=== PATIENT | male | born 1940 | race Caucasian/White ===

== ENCOUNTER 2016-06-13 06:14 | Observation (INO) ==
[2016-06-13] MEDS ORDERED: Aspirin 81 MG TAB.CHEW PO ONE (06:30)
--- NOTE | 2016-06-13 06:44 | Emergency Department Note ---
Disposition Clinical Impression: Unstable angina, Chest pain, rule out acute myocardial infarction Disposition: Admitted As Inpatient Condition: Fair Referrals: NO,PCP [Primary Care Provider] - Forms: ED Satisfaction Letter Time of Disposition: 08:28 SOB HPI - General Chief Complaint: ED Shortness of Breath/Dyspnea Stated Complaint: MAYELIN Time Seen by Provider: 06/13/16 06:24 Source: EMS Limitations: no limitations Nursing Notes Reviewed: Yes Vital Signs Reviewed: Yes - History of Present Illness 75-year-old alert and oriented male presents to the emergency department by EMS for evaluation of shortness of breath and left sided chest pain that awoke him from his sleep at approximately 0130 hours this morning. The time, he says that he would have rated his pain a 4 out of 10 on a 10 point scale. The pain was localized primarily to the left chest around the site of his pacemaker, however the pain cannot be reproduced upon palpation to my exam. He states his pain radiated down his left arm. As of now, he states the pain has eased up, rating it a 2 out of 10 on a 10 point scale. He complains of shortness of breath associated with chest pain however denies any cough. He denies any fevers or chills. He denies any bowel pain, nausea, vomiting, diarrhea, or diaphoresis. Of note, the patient was seen here yesterday for a complaint of shortness of breath and recurrent left-sided paresthesias. At this time, he states that there are no left sided paresthesia symptoms present. Pt Subjective Complaint: shortness of breath, chest pain Onset (ago): hour(s) Severity: mild Improves with: nothing Worsens with: nothing Associated symptoms: Reports: denies other symptoms - Related Data Previous Rx's Medication Instructions Recorded Amlodipine [Norvasc] 10 mg PO DAILY #30 tablet 02/21/16 Aspirin Enteric Coated [Aspirin EC] 81 mg PO DAILY #30 tablet. 02/21/16 Atorvastatin [Lipitor] 40 mg PO HS #30 tablet 02/21/16 Furosemide [Lasix] 40 mg PO DAILY #30 tablet 02/21/16 Lisinopril [Zestril] 40 mg PO DAILY #30 tablet 02/21/16 Metoprolol [Lopressor] 25 mg PO BID #60 tablet 02/21/16 Nitroglycerin [Nitrostat] 0.4 mg SL AD PRN #10 tab.subl 12/03/16 Allergies Allergy/AdvReac Type Severity Reaction Status Date / Time Oxycodone [From Percocet] Allergy Hives Verified 06/13/16 06:15 tramadol Allergy Hives Verified 06/13/16 06:15 All systems ED: reviewed and negative except as stated. Constitutional: Denies: fever, chills, weakness, weight change Eyes: Denies: eye pain, eye discharge, vision change ENT ED: Denies: ear pain, throat pain, dental pain, hearing loss, epistaxis, congestion, dysphagia Cardiovascular: Reports: as per HPI, chest pain. Denies: palpitations, dyspnea on exertion, edema, syncope Respiratory: Reports: as per HPI, dyspnea. Denies: cough, wheezes, hemoptysis, stridor Gastrointestinal: Denies: abdominal pain, nausea, vomiting, diarrhea, constipation, hematemesis, melena, hematochezia Genitourinary: Denies: urgency, dysuria, frequency, hematuria Musculoskeletal: Denies: back pain, neck pain, arthralgia, myalgia Integumentary: Denies: rash, abrasion, lesions Neurological: Denies: headache, weakness, numbness, paresthesias, confusion, abnormal gait, vertigo Psychiatric: Denies: anxiety, depression, suicidal thoughts, homicidal thoughts , auditory hallucinations, visual hallucinations Endocrine: Denies: fatigue Hematological/Lymphatic: Denies: easy bleeding, easy bruising Allergic/Immunologic: Denies: facial swelling, urticaria Past Medical History - Past Medical History Attestation: Yes The following information was validated with the patient. Source: patient Medical history: Reports: coronary artery disease, CVA, diabetes, hypertension, myocardial infarction, thyroid disease Surgical history: Reports: cholecystectomy, coronary bypass (CABG), pacemaker/ AICD Psychiatric history: Reports: no psych history - Social History Smoking Status: Former smoker Smokeless Tobacco Status: No Alcohol use: Reports: none Drug use: Reports: none Physical Exam - General Limitations: no limitations General appearance: alert - Head Head exam: atraumatic, normocephalic, normal inspection - Eye Eye exam: Present: normal appearance, PERRL, EOMI. Absent: nystagmus - ENT ENT exam: mucous membranes moist - Neck Neck exam: Present: normal inspection, full ROM, trachea midline - Chest Chest inspection: Present: normal inspection, symmetric chest wall rise - Respiratory Respiratory exam: Present: normal lung sounds bilaterally. Absent: respiratory distress, wheezes, stridor, accessory muscle use, prolonged expiratory phase - Cardiovascular Cardiovascular exam: Present: regular rate, normal rhythm, normal heart sounds - Abdominal Exam Abdominal exam: Present: soft, Non-Tender, normal bowel sounds. Absent: tenderness, distention, guarding, rebound, rigidity - Extremities Exam Extremities exam: Present: normal inspection, full ROM. Absent: tenderness, pedal edema - Neurological Exam Neurological exam: Present: alert, oriented X3 - Psychiatric Psychiatric exam: Present: normal affect, normal mood - Skin Skin exam: Present: warm, dry, intact, normal color. Absent: rash, cyanosis, diaphoresis, erythema, pallor, mottled Course Course Narrative: 0822: I discussed this patient's case, presentation, and laboratory results with Dr. lopez. I also discussed with her that this is the patient's second ER visit in the past 2 days for similar symptoms. She recommends admission to the hospitalist service for further evaluation and chest pain rule out. At this time, I am awaiting a callback from the hospitalist. 0825: I spoke with DARYA Keenan of the hospitalist service. Ree has accepted the patient for admission for further observation and evaluation of his unstable angina/chest pain rule out. - Reevaluation(s) Reevaluation #1: The patient states complete relief of chest pain after the administration of nitroglycerin. Time: 07:41 Vital Signs Temperature 97.7 F 06/13/16 06:16 Pulse Rate 70 06/13/16 06:16 Respiratory Rate 16 06/13/16 06:16 Blood Pressure 167/85 06/13/16 06:16 O2 Sat by Pulse Oximetry 98 06/13/16 06:16 Temperature 97.7 F 06/13/16 06:16 Pulse Rate 66 06/13/16 07:36 Respiratory Rate 16 06/13/16 07:36 Blood Pressure 152/94 06/13/16 07:36 O2 Sat by Pulse Oximetry 98 06/13/16 07:36 Oxygen Delivery Oxygen Delivery Room Air Shortness of Breath/Dyspnea - Medical Records Medical records reviewed: Yes I reviewed the patient's medical records. - Lab Data Lab results reviewed: Yes I reviewed the patient's lab results. Lab results narrative: Laboratory Last Values WBC 7.5 K/mcL (4.3-11.1) 06/13/16 07: RBC 5.07 M/mcL (4.19-5.50) 06/13/16 07:26 Hgb 14.7 g/dL (12.9-16.9) 06/13/16 07: Hct 44.3 % (37.5-50.1) 06/13/16 07: MCV 87.4 fL (83.0-100.0) 06/13/16 07: MCH 29.0 pg (28.0-33.3) 06/13/16 07: MCHC 33.2 g/dL (31.6-35.5) 06/13/16 07: RDW 12.6 % (11.5-14.5) 06/13/16 07: Plt Count 152 K/mcL (140-400) 06/13/16 07: MPV 11.4 fL (9.4-12.4) 06/13/16 07: Immature Gran % 0.1 % (0-4) 06/13/16 07: Seg Neutrophils % 64.7 % 06/13/16 07: Lymphocytes % 22.1 % 06/13/16 07: Monocytes % 8.3 % 06/13/16 07:26 Eosinophils % 3.9 % 06/13/16 07: Basophils % 0.9 % 06/13/16 07: Neutrophils # 4.8 K/mcL (1.6-8.9) 06/13/16 07: Lymphocytes # 1.7 K/mcL (0.6-4.6) 06/13/16 07:26 Monocytes # 0.6 K/mcL (0.0-1.3) 06/13/16 07:26 Eosinophils # 0.3 K/mcL (0.0-0.6) 06/13/16 07: Basophils # 0.1 K/mcL (0.0-0.2) 06/13/16 07:26 PT 15.4 Seconds (9.4-12.1) H 06/13/16 07: INR 1.4 06/13/16 07:26 APTT 34.8 Seconds (26.0-36.0) 06/13/16 07:26 Sodium 139 mEq/L (136-145) 06/13/16 07:26 Potassium 4.3 mEq/L (3.5-4.5) 06/13/16 07:26 Chloride 104 mEq/L (98-109) 06/13/16 07:26 Carbon Dioxide 24 mEq/L (19-29) 06/13/16 07:26 BUN 19 mg/dL (8-26) 06/13/16 07:26 Creatinine 1.12 mg/dL (0.72-1.25) 06/13/16 07:26 Est GFR ( Amer) > 60 (> 60) 06/13/16 07:26 Est GFR (Non-Af Amer) > 60 (> 60) 06/13/16 07:26 BUN/Creatinine Ratio 17 (6-26) 06/13/16 07:26 Glucose 228 mg/dL (70-99) H 06/13/16 07:26 Calculated Osmolality 297 (280-300) 06/13/16 07:26 Calcium 9.8 mg/dL (8.6-10.8) 06/13/16 07:26 Troponin I 0.03 ng/mL (0-0.03) 06/13/16 07:26 Result diagrams: 06/13/16 07:26 06/13/16 07:26 Lab Results 06/13/16 06/13/16 06/13/16 Range/Units 07:26 07:26 07:26 WBC 7.5 (4.3-11.1) K/mcL RBC 5.07 (4.19-5.50) M/mcL Hgb 14.7 (12.9-16.9) g/dL Hct 44.3 (37.5-50.1) % MCV 87.4 (83.0-100.0) fL MCH 29.0 (28.0-33.3) pg MCHC 33.2 (31.6-35.5) g/dL RDW 12.6 (11.5-14.5) % Plt Count 152 (140-400) K/mcL MPV 11.4 (9.4-12.4) fL Immature Gran % 0.1 (0-4) % Seg Neutrophils % 64.7 % Lymphocytes % 22.1 % Monocytes % 8.3 % Eosinophils % 3.9 % Basophils % 0.9 % Neutrophils # 4.8 (1.6-8.9) K/mcL Lymphocytes # 1.7 (0.6-4.6) K/mcL Monocytes # 0.6 (0.0-1.3) K/mcL Eosinophils # 0.3 (0.0-0.6) K/mcL Basophils # 0.1 (0.0-0.2) K/mcL PT 15.4 H (9.4-12.1) Seconds INR 1.4 APTT 34.8 (26.0-36.0) Seconds Sodium 139 (136-145) mEq/L Potassium 4.3 (3.5-4.5) mEq/L Chloride 104 (98-109) mEq/L Carbon Dioxide 24 (19-29) mEq/L BUN 19 (8-26) mg/dL Creatinine 1.12 (0.72-1.25) mg/dL Est GFR ( Amer) > 60 (> 60) Est GFR (Non-Af Amer) > 60 (> 60) BUN/Creatinine Ratio 17 (6-26) Glucose 228 H (70-99) mg/dL Calculated Osmolality 297 (280-300) Calcium 9.8 (8.6-10.8) mg/dL Troponin I (0-0.03) ng/mL 06/13/16 Range/Units 07:26 WBC (4.3-11.1) K/mcL RBC (4.19-5.50) M/mcL Hgb (12.9-16.9) g/dL Hct (37.5-50.1) % MCV (83.0-100.0) fL MCH (28.0-33.3) pg MCHC (31.6-35.5) g/dL RDW (11.5-14.5) % Plt Count (140-400) K/mcL MPV (9.4-12.4) fL Immature Gran % (0-4) % Seg Neutrophils % % Lymphocytes % % Monocytes % % Eosinophils % % Basophils % % Neutrophils # (1.6-8.9) K/mcL Lymphocytes # (0.6-4.6) K/mcL Monocytes # (0.0-1.3) K/mcL Eosinophils # (0.0-0.6) K/mcL Basophils # (0.0-0.2) K/mcL PT (9.4-12.1) Seconds INR APTT (26.0-36.0) Seconds Sodium (136-145) mEq/L Potassium (3.5-4.5) mEq/L Chloride (98-109) mEq/L Carbon Dioxide (19-29) mEq/L BUN (8-26) mg/dL Creatinine (0.72-1.25) mg/dL Est GFR ( Amer) (> 60) Est GFR (Non-Af Amer) (> 60) BUN/Creatinine Ratio (6-26) Glucose (70-99) mg/dL Calculated Osmolality (280-300) Calcium (8.6-10.8) mg/dL Troponin I 0.03 (0-0.03) ng/mL - Radiology Data Radiology results reviewed: Yes I reviewed the patient's radiology results. Chest X-Ray 06/13/16 06:30 IMPRESSION: No acute cardiopulmonary process. D/ / Justina Dominguez MD / Justina Dominguez MD Interpreting Provider: Justina Dominguez MD - EKG Data EKG attestation: Yes I reviewed and interpreted this EKG. EKG results narrative: EKG reviewed by Dr. Metzger as well. EKG shows a ventricular paced rhythm at a rate of 69 bpm. No ectopy noted. Attestation Statement - Attestation Attestation: I examined this patient and my medical decision-making was reviewed with the CLEAN OUT DRILLER/PA/Advanced Practice Nurse/Resident Physician. I agree with the documented findings, disposition and treatment plan as described except to the extent set forth below. Patient emergency department with chest pain. States his left-sided around his pacemaker. Workup at this morning. On exam he is laying in bed in no acute distress. Pain nonpertinent produced on my evaluation. No swelling or ecchymosis to the chest wall. No rash. Plan. Cardiac workup appears unremarkable. Admitted for further cardiac workup.
[2016-06-13] MEDS ORDERED: Nitroglycerin 0.4 MG TAB.SUBL SL PRN (07:14)
[2016-06-13 07:50] LABS: Basophils # 0.1 K/mcL (0.0-0.2); Basophils % 0.9 %; Eosinophils # 0.3 K/mcL (0.0-0.6); Eosinophils % 3.9 %; Hematocrit 44.3 % (37.5-50.1); Hemoglobin 14.7 g/dL (12.9-16.9); Immature Granulocytes % 0.1 % (0-4); Lymphocytes # 1.7 K/mcL (0.6-4.6); Lymphocytes % 22.1 %; Mean Corpuscular HGB Conc 33.2 g/dL (31.6-35.5); Mean Corpuscular Volume 87.4 fL (83.0-100.0); Mean Platelet Volume 11.4 fL (9.4-12.4); Monocytes # 0.6 K/mcL (0.0-1.3); Monocytes % 8.3 %; Neutrophils # 4.8 K/mcL (1.6-8.9); Platelet Count 152 K/mcL (140-400); Red Blood Count 5.07 M/mcL (4.19-5.50); Red Cell Distribution Width 12.6 % (11.5-14.5); Segmented Neutrophils % 64.7 %
[2016-06-13 07:56] LABS: BUN/Creatinine Ratio 17 (6-26); Blood Urea Nitrogen 19 mg/dL (8-26); Calcium 9.8 mg/dL (8.6-10.8); Carbon Dioxide 24 mEq/L (19-29); Chloride 104 mEq/L (98-109); Glucose 228 mg/dL (70-99); Osmolality,Calculated 297 (280-300); Potassium 4.3 mEq/L (3.5-4.5); Sodium 139 mEq/L (136-145); eGFR For African Americans > 60 (> 60); eGFR For Non-African Americans > 60 (> 60)
[2016-06-13 08:02] LABS: INR 1.4; Prothrombin Time 15.4 Seconds (9.4-12.1)
[2016-06-13 08:05] LABS: Activated Partial Thrombo Time 34.8 Seconds (26.0-36.0)
[2016-06-13] MEDS ORDERED: Naloxone 0.4 MG/ML INJ IVP PRN (10:18)
[2016-06-13] MEDS ORDERED: Ondansetron 4 MG/2 ML VIAL IVP PRN (10:18)
--- NOTE | 2016-06-13 12:40 | Internal Med History&Physical ---
Date of Encounter: 06/13/16 Time of Encounter: 10:30 Assessment and Plan (1) Chest pain Current visit: Yes Status: Acute 1 patient has been experiencing persistent chest pain for approximately 2 days. He does have a past history of coronary artery disease as well as GA. He did have a CABG in the . His last stress test was one year ago which was negative for ischemia. His first set of cardiac troponins are negative we will continue to cycle 2 we will continue with aspirin and statin beta fuentes Jasiel 3 continuous cardiac monitoring 4 we will make patient nothing by mouth after midnight 5 consult cardiology 6 cardiac echo Qualifiers: Chest pain type: unspecified Qualified Code(s): R07.9 - Chest pain, unspecified (2) CAD (coronary artery disease) Current visit: No Status: Chronic 1 patient has history of coronary disease and a CABG in the past. We will continue with his beta fuentes and jasiel statin and aspirin Qualifiers: Coronary Disease-Associated Artery/Lesion type: bypass graft [place] vs. transplanted heart: [place] heart Associated angina: without angina Qualified Code(s): I25.810 - Atherosclerosis of coronary artery bypass graft(s) without angina pectoris (3) DM2 (diabetes mellitus, type 2) Current visit: No Status: Chronic 1 patient has history of diabetes type 2. We will continue with Accu-Cheks before meals and at bedtime Scale insulin as needed to maintain postprandial less than 180 Qualifiers: Diabetes mellitus complication status: with circulatory complication Diabetes mellitus complication detail: with other circulatory complications Diabetes mellitus termite exterminator insulin use: without termite exterminator use Qualified Code( s): E11.59 - Type 2 diabetes mellitus with other circulatory complications (4) HTN (hypertension) Current visit: No Status: Chronic 1 patient has history of hypertension continue with lisinopril and Lasix bolus to maintain systolic less than 140 Qualifiers: Hypertension type: essential hypertension Qualified Code(s): I10 - Essential (primary) hypertension (5) Congestive heart failure Current visit: No Status: Chronic 1 patient has history of congestive heart failure echo in September 2015 revealed EF of 35% with moderate diastolic dysfunction. We will continue with Lasix 2 monitor intake and output daily weights 3 low sodium diet 4 patient has pacemaker Qualifiers: Congestive heart failure type: combined Congestive heart failure chronicity : chronic Qualified Code(s): I50.42 - Chronic combined systolic (congestive) and diastolic (congestive) heart failure (6) DVT prophylaxis Current visit: No Status: Acute Internal Medicine - H&P: HPI Chief complaint: CP Admitted From: Emergency Dept Plans for Post Hospital Care: Home History of present illness: Mr. Pizarro is a 75 year old male Coronary artery disease with CABG pacemaker AICD CVA diabetes hypertension thyroid disease. Patient has been experiencing left-sided chest pressure for approximately 2 days. He did present to the ER at [facility] yesterday however his troponins were negative he was sent home. Approximately 1:30 AM this morning the patient was awakened him sleep with chest pain. Pain was mainly localized around the left chest where his pacemaker site is located it radiated down his left arm which he states is numb and tingly. Pain was 10 out of 10 he did have associated symptoms of shortness of breath. There were no aggravating factors. Upon presentation the patient continued to have pain he was given nitroglycerin with no relief then he was given pain medication which did relieve his pain 2 out of 10. EKG was obtained did reveal paced rhythm first set cardiac troponins were negative other lab work was unremarkable chest x-ray with no acute process he has been admitted for further workup evaluation. Presently patient is chest pain-free he denies any shortness of breath he does continue to experience some paresthesia to his left side. He states this is been going on for some time he has had an extensive workup in the past with inconclusive results. Upon assessment patient's lung sounds are clear heart sounds are regular rate and rhythm S1-S2 no murmurs clicks rubs or gallops. No pain upon chest palpation. He is hemodynamically stable this time I did review this case with Dr. Hansen who agrees with plan. Past Med Surg Social Fam HX - Past Medical History Medical history: coronary artery disease, CVA, diabetes, hypertension, myocardial infarction, thyroid disease Psychiatric history: no psych history - Past Surgical History Surgical History: cholecystectomy, coronary bypass (CABG), pacemaker/AICD - Social History Smoking Status: Former smoker Smokeless Tobacco Status: No Alcohol use: none Drug use: none - Family History Grandfather Living Status: Hx Family Cardiac Disorders: Yes Mother Living Status: Father Adopted: No Living Status: Internal Medicine - H&P: Meds Aspirin Enteric Coated [Aspirin EC] 81 mg PO DAILY #30 tablet. 02/21/16 [Rx] Atorvastatin [Lipitor] 40 mg PO HS #30 tablet 02/21/16 [Rx] Furosemide [Lasix] 40 mg PO DAILY #30 tablet 02/21/16 [Rx] Metoprolol [Lopressor] 25 mg PO BID #60 tablet 02/21/16 [Rx] Nitroglycerin [Nitrostat] 0.4 mg SL AD PRN #10 tab.subl 02/21/16 [Rx] Amlodipine [Norvasc] 5 mg PO DAILY 06/13/16 [History] Lisinopril [Zestril] 20 mg PO DAILY 06/13/16 [History] Rivaroxaban [Xarelto] 20 mg PO DAILY 06/13/16 [History] Allergies Oxycodone [From Percocet] Allergy (Verified 06/13/16 06:15) Hives tramadol Allergy (Verified 06/13/16 06:15) Hives All Systems PM: A 10-system review of systems was performed and is negative for pertinent findings except as documented above in the HPI. - Constitutional Constitutional: no chills, no fever(s), no night sweats - EENT Eyes: no change in vision, no discharge, no pain, no photophobia Nose, mouth and throat: no dysphagia, no nasal discharge, no neck pain, no sore throat - Cardiovascular Cardiovascular ROS IM: chest pain, dyspnea - Respiratory Respiratory: no cough, no dyspnea, no wheezing, no excessive phlegm production - Gastrointestinal Gastrointestinal: no abdominal pain, no diarrhea, no hematemesis, no hematochezia, no melena, no nausea, no vomiting - Musculoskeletal Musculoskeletal ROS IM: no numbness, no tingling - Integumentary Integumentary IM: no rash, no unusual bruising - Neurological Neurological ROS: paresthesias - Hematologic/Lymphatic Hematologic/Lymphatic: no easy bruising - Constitutional Vitals: Temp Pulse Resp BP Pulse Ox 97.9 F 67 17 140/83 96 06/13/16 10:46 06/13/16 10:46 06/13/16 10:46 06/13/16 10:46 06/13/16 10:46 General appearance: Present: A&O X 3, answers questions appropriately - Head Head exam: Present: atraumatic, normocephalic - Eye Eye exam: Present: PERRL, conjuntiva pink, sclera anicteric Pupils: Present: PERRL - Neck Neck exam general surgery: Present: supple, trachea midline. Absent: lymphadenopathy - Respiratory Respiratory exam: Present: CTAB. Absent: accessory muscle use, rales, rhonchi, wheezes - Cardiovascular Cardiovascular exam: Present: RRR, +S1, +S2. Absent: diastolic murmur, gallop, rubs, systolic murmur - GI/Abdominal GI/Abdominal exam: Present: normal bowel sounds, soft, no peritoneal signs. Absent: distended, tenderness - Neurological Exam Neurological exam: Present: CN II-XII intact, oriented X3, no focal deficits. Absent: pronater drift, facial droop, speech deficit - Skin Skin exam: Present: dry, intact Internal Med - H&P Results - Labs CBC & Chem 7: 06/13/16 07:26 06/13/16 07:26 - EKG Data EKG comments: 06/13/16 12:56 Paced rhythm - Diagnostic Studies Other Images Additional comments: Chest X-Ray 06/13/16 06:30 IMPRESSION: No acute cardiopulmonary process. D/ / Justina Dominguez MD / Justina Dominguez MD Interpreting Provider: Justina Dominguez MD
[2016-06-13] MEDS: amLODIPine 5 MG TABLET PO SCH (13:56)
[2016-06-13] MEDS: Furosemide 40 MG TABLET PO SCH (13:56)
[2016-06-13] MEDS: Lisinopril 20 MG TABLET PO SCH (13:56)
[2016-06-13] MEDS ORDERED: Dextrose Gel 15 GM PO PRN ×2 (15:49)
[2016-06-13] MEDS ORDERED: *HR* Dextrose 50 % in Water (Syg) 50 ML SYRINGE IVP PRN (15:49)
[2016-06-13] MEDS ORDERED: D5% in Water 1,000 ML IVC PRN (15:49)
[2016-06-13] MEDS: Insulin LISPRO 300 UNITS/3 ML VIAL SQ SCH ×2 (17:47→20:18)
[2016-06-14] MEDS: Acetaminophen 325 MG TABLET PO PRN ×2 (02:28→18:43)
[2016-06-14 04:42] LABS: Basophils # 0.1 K/mcL (0.0-0.2); Basophils % 0.9 %; Eosinophils # 0.3 K/mcL (0.0-0.6); Eosinophils % 3.1 %; Hematocrit 44.1 % (37.5-50.1); Hemoglobin 14.9 g/dL (12.9-16.9); Immature Granulocytes % 0.3 % (0-4); Lymphocytes # 2.1 K/mcL (0.6-4.6); Lymphocytes % 22.2 %; Mean Corpuscular HGB Conc 33.8 g/dL (31.6-35.5); Mean Corpuscular Hemoglobin 29.4 pg (28.0-33.3); Mean Platelet Volume 11.5 fL (9.4-12.4); Monocytes # 0.8 K/mcL (0.0-1.3); Monocytes % 8.7 %; Neutrophils # 6.2 K/mcL (1.6-8.9); Platelet Count 169 K/mcL (140-400); Red Blood Count 5.07 M/mcL (4.19-5.50); Red Cell Distribution Width 12.7 % (11.5-14.5); Segmented Neutrophils % 64.8 %
[2016-06-14 04:49] LABS: BUN/Creatinine Ratio 17 (6-26); Blood Urea Nitrogen 22 mg/dL (8-26); Calcium 9.7 mg/dL (8.6-10.8); Carbon Dioxide 22 mEq/L (19-29); Chloride 104 mEq/L (98-109); Cholesterol 103 mg/dL (< 200); Glucose 199 mg/dL (70-99); HDL Cholesterol 34 mg/dL (40-59); LDL Cholesterol,Calculated 26 mg/dL (0-99); Osmolality,Calculated 295 (280-300); Potassium 4.3 mEq/L (3.5-4.5); Sodium 138 mEq/L (136-145); Triglycerides 216 mg/dL (< 150); eGFR For African Americans > 60 (> 60); eGFR For Non-African Americans 54 (> 60)
--- NOTE | 2016-06-14 07:00 | Electrocardiograph Report ---
[place] [id number] Test Date: 2016-06-13 Pat Name: Yue Pizarro Department: 104 Room: 3B43 Gender: M Hospital Unit Clerk: JOSEPH : 1940 Requested By: Sandoval Burns Order Number: [id number] Reading MD: Terrance Maldonado MD Measurements Intervals [place] Rate: 69 P: 119 MA: 136 QRS: -47 QRSD: 210 T: 138 QT: 518 QTc: 537 Interpretive Statements ELECTRONIC VENTRICULAR PACEMAKER Electronically Signed On 06-14-2016 6:59:13 EDT by Terrance Maldonado MD
--- NOTE | 2016-06-14 07:08 | Electrocardiograph Report ---
[place] [id number] Test Date: 2016-06-14 Pat Name: Yue Pizarro Department: 113 Room: 3B43 Gender: M Nonprofit Fundraiser: [id number] : 1940 Requested By: Ree Lynn Order Number: [id number] Reading MD: Terrance Maldonado MD Measurements Intervals [place] Rate: 65 P: 157 DE: 133 QRS: 232 QRSD: 194 T: 47 QT: 525 QTc: 536 Interpretive Statements ELECTRONIC VENTRICULAR PACEMAKER ABNORMAL RHYTHM ECG Electronically Signed On 06-14-2016 7:06:04 EDT by Terrance Maldonado MD
[2016-06-14] MEDS: Lisinopril 20 MG TABLET PO SCH (08:41)
[2016-06-14] MEDS: Insulin LISPRO 300 UNITS/3 ML VIAL SQ SCH ×4 (08:41→21:48)
[2016-06-14] MEDS: Furosemide 40 MG TABLET PO SCH (08:41)
[2016-06-14] MEDS: Aspirin Enteric Coated 81 MG Tablet PO SCH (08:41)
[2016-06-14] MEDS: amLODIPine 5 MG TABLET PO SCH (08:41)
--- NOTE | 2016-06-14 11:26 | ECHO - Doppler Report ---
Echocardiogram Name: Yue Pizarro Date of Study: 06/14/2016 Date: 1940 Ht: 70.0 in Medical Record#: [id number] Age: 75 Wt: 199.0 lb Gender: Male BSA: 2.08 Order #: [id number] Location: [facility] Room #: 3B43 Reading Physician: Terrance Maldonado MD, [facility] [place] Hand: Tito Reeves RDCS Ordering Physician: Ree Lynn CNP Primary Physician: None Indications: Chest pain Impressions: LVEF 35-40%. Moderate global left ventricular systolic dysfunction. Mild left ventricular diastolic dysfunction. No pulmonary hypertension. No significant valvular dysfunction. Bicuspid aortic valve. Left Ventricular Wall Motion: Rest Echo Findings The apex, apical inferior, mid inferior, basal inferior, apical anterior, mid anterior, basal anterior, apical septal, mid inferior septal, basal inferior septal, apical lateral, mid anterior lateral, basal anterior lateral, mid anterior septal, mid inferior lateral, basal anterior septal and basal inferior lateral mena were hypokinetic. Findings: Study Quality * Technically adequate exam. Right Ventricle * Normal right ventricular structure and function. Mitral Valve * Normal mitral valve structure and function. Interatrial Septum * No evidence of PFO by color Doppler. Aorta * Normally sized aortic root. Pericardium * The pericardium appears normal. Left Ventricle * LVEF 35-40%. * Moderate global left ventricular systolic dysfunction. * Atypical septal motion consistent with paced rhythm. * Mild left ventricular diastolic dysfunction. Left Atrium * Mildly dilated left atrium. Tricuspid Valve * Estimated RVSP is 14 mmHg. * Estimated RA pressure is 3-5 mmHg. * No pulmonary hypertension. ECG Findings * Paced rhythm. Aortic Valve * Bicuspid aortic valve. * No aortic regurgitation. * No aortic stenosis. Pulmonic Valve * No pulmonic stenosis. * Trace pulmonic regurgitation. IVC * Normal IVC dimensions and inspiratory collapse. Right Atrium * Right atrium is not well visualized. History Hypertension Diabetes Hypercholesteremia Family History of CAD History of CAD/PTCA Myocardial Infarction Coronary Artery Bypass Graft Congestive Heart Failure Pacer/ICD Implant 09/25/15 a Previous Echo was performed. Measurements: BP: 126/ 76 2D Normal Values RVIDd: 2.15 cm <2.7 cm IVSd: 1.08 cm 0.6 - 1.0 cm LVIDd: 4.96 cm 3.7 - 5.6 cm LVPWd: 1.20 cm 0.6 - 1.1 cm LVIDs: 3.88 cm 1.5 - 3.6 cm AO: 2.50 cm < 4.0 cm LA: 4.10 cm 2.0 - 4.0cm %FS: 21.80 cm >25 % LA volume: 53 Mitral Valve Peak E:.49 m/sec Peak A:1.10 m/sec E/A Ratio:0.4 Peak E' Lat Malachi:5.77 cm/s Peak E' Med Malachi:3.05 cm/s E/E' Lat Ratio:8.4 E/E' Med Ratio:15.9 Tricuspid Valve TV Regurg Peak Grad: 14.00mmHg TV Regurg Peak Malachi: 1.66m/sec Updated by Terrance Maldonado MD, [facility] on 06/14/2016 11:20:15 AM electronically signed on 06/14/2016 11:20:35 AM with status of Final Wall Motion [place]: 1=Normal, 2=Hypokinesis, 3=Akinesis, 4=Dyskinesis, 5=Aneurysmal, 6=Hyperkinetic, X=Not Visualized (Blank)=Missing
--- NOTE | 2016-06-14 11:42 | Cardiology Consult Note ---
<John Lee - Last Filed: 06/14/16 12:09> Date of Encounter: 06/14/16 Time of Encounter: 11:42 Assessment and Plan (1) Chest pain Current Visit: Yes Status: Acute Reports chest pain intermittently over recent days, left sided and sharp in nature not associated with exertion. Known ICMP--hx of CABG in 2002. EF known previously to be 35%--current echo EF 35-40%, global hypokinesis. Troponins negative x 4. EKG ventricularly paced. Last stress test 03/2015 negative for ischemia, longer than 1 year ago. No indication for LHC at this time. Plan for pharmacologic nuclear stress test in AM. Plan to add Imdur after stress test since he has known CAD. Qualifiers: Chest pain type: unspecified Qualified Code(s): R07.9 - Chest pain, unspecified (2) Ischemic cardiomyopathy Current Visit: Yes Status: Acute EF 35-40%. Hx of CABG in 2002. Continue BB, TEE-I and Lasix. Pt euvolemic on exam. (3) Paroxysmal a-fib Current Visit: Yes Status: Chronic Continue BB. Ventricularly paced. Occasional PAF on tele. Anticoagulated on Xarelto. Will monitor renal function to see if dose needs adjusted. (4) Pacemaker Current Visit: Yes Status: Chronic PPM in place, follows with device clinic. (5) CAD (coronary artery disease) Current Visit: Yes Status: Chronic Hx of CABG in 2002. Continue ASA, Statin, BB, TEE-I. Qualifiers: Coronary Disease-Associated Artery/Lesion type: bypass graft [place] vs. transplanted heart: [place] heart Associated angina: without angina Qualified Code(s): I25.810 - Atherosclerosis of coronary artery bypass graft(s) without angina pectoris Discussion w patient/family: The assessment and plan as outlined above was discussed with the patient and/or family members who expressed understanding and agreement. All questions were answered. Thank you for involving us in the care of your patient. Please call with any questions. I will discuss all the above with Dr. Garcia and make changes as necessary. History of Present Illness Consult date: 06/14/16 Requesting physician: Ree Lynn Consult reason: Chest pain Chief complaint: chest pain History of present illness: Mr. Pizarro is a 75 year old male with PMH of CVA, HTN, DM, HLD, CAD s/p CABG in 2002, PPM, PAF/AFL on Xarelto, ICMP that presented to ED with complaints of chest pain. Presented a few days prior and was discharged home, then presented again when chest pain woke him from sleep, described as left sided and sharp in nature associated with dyspnea and nausea. Reports the pain has been intermittent, not worsened or relieved by anything. Also reports left sided neck pain intermittently, but not at the same time as the chest pain. CXR negative, troponins negative, EKG ventricularly paced. Current CP 05/28. Recent CV testing: Echo 06/14/16--EF 35-40% with global hypokinesis, mild diastolic dysfunction. Bicuspid AV. Stress test 03/25/15--Negative for ischemia, gated EF 40%. Prior [place]. Past Med Surg Social Fam HX - Past Medical History Medical history: coronary artery disease, CVA, diabetes, hypertension, myocardial infarction, thyroid disease Psychiatric history: no psych history - Past Surgical History Surgical History: cholecystectomy, coronary bypass (CABG), pacemaker/AICD - Social History Smoking Status: Former smoker Smokeless Tobacco Status: No Alcohol use: none Drug use: none - Family History Grandfather Living Status: Hx Family Cardiac Disorders: Yes Mother Living Status: Father Adopted: No Living Status: Medications and Allergies Aspirin Enteric Coated [Aspirin EC] 81 mg PO DAILY #30 tablet. 02/21/16 [Rx] Atorvastatin [Lipitor] 40 mg PO HS #30 tablet 02/21/16 [Rx] Furosemide [Lasix] 40 mg PO DAILY #30 tablet 02/21/16 [Rx] Metoprolol [Lopressor] 25 mg PO BID #60 tablet 02/21/16 [Rx] Nitroglycerin [Nitrostat] 0.4 mg SL AD PRN #10 tab.subl 02/21/16 [Rx] Amlodipine [Norvasc] 5 mg PO DAILY 06/13/16 [History] Lisinopril [Zestril] 20 mg PO DAILY 06/13/16 [History] Rivaroxaban [Xarelto] 20 mg PO DAILY 06/13/16 [History] Allergies Oxycodone [From Percocet] Allergy (Verified 06/13/16 06:15) Hives tramadol Allergy (Verified 06/13/16 06:15) Hives All Systems Review: A 10-system review of systems was performed and is negative for pertinent findings except as documented above in the HPI. - Cardiovascular Cardiovascular: as per HPI, chest pain at rest, chest pain with exertion, dyspnea on exertion, radiating jaw, neck or arm pain - Respiratory Respiratory: dyspnea Physical Examination Vital Signs, Last 4 Hours Temp Pulse Resp BP Pulse Ox 06/14/16 10:53 98.0 F 65 10 126/75 96 Vital Signs Temp Pulse Resp BP Pulse Ox 06/14/16 10:53 98.0 F 65 10 126/75 96 06/14/16 07:17 98.1 F 64 12 126/76 95 06/14/16 04:07 98.0 F 68 16 124/73 93 L 06/13/16 18:42 98.2 F 62 12 148/77 95 06/13/16 15:35 97.9 F 66 17 153/81 98 Intake and Output 06/13/16 06/14/16 06/14/16 23:59 07:59 15:59 Intake Total 480 / 480 Balance 480 / 480 Intake: Oral 480 / 480 Other: Meal Dinner npo Percent of Meal Consumed 50% 0% Weight 90.6 kg Blood Glucose* 189 203 162 Patient Weight 06/14/16 23:59 Weight 90.6 kg General: Conversant, No Apparent Distress HEENT: Atraumatic, Normocephaly, Mucus Membranes Moist Neck: No JVD, Normal carotid pulses Cardiac: Reg Rate and Rhythm, Normal S1 and S2, No Murmur Lungs: Normal Breath Sounds, No Wheeze, Rales, Rhonchi Neuro: Alert and responsive, No focal deficits noted Abdomen: Soft, Non-Tender Skin: No rashes noted on visualized skin Musculoskeletal: No Chest Wall Tenderness Extremities: No Clubbing, No Cyanosis, No Edema, Normal Pulses Results 06/14/16 03:43 06/14/16 03:43 Lab Results 06/13/16 06/13/16 06/14/16 14:08 18:41 03:43 WBC 9.6 Hgb 14.9 Hct 44.1 Plt Count 169 Sodium Potassium Chloride Carbon Dioxide BUN Creatinine Glucose Calcium Troponin I 0.03 0.02 06/14/16 03:43 WBC Hgb Hct Plt Count Sodium 138 Potassium 4.3 Chloride 104 Carbon Dioxide 22 BUN 22 Creatinine 1.30 H Glucose 199 H Calcium 9.7 Troponin I Short CBC 06/14/16 Range/Units 03:43 WBC 9.6 (4.3-11.1) K/mcL Hgb 14.9 (12.9-16.9) g/dL Hct 44.1 (37.5-50.1) % Plt Count 169 (140-400) K/mcL Neutrophils # 6.2 (1.6-8.9) K/mcL BMP 06/14/16 Range/Units 03:43 Sodium 138 (136-145) mEq/L Potassium 4.3 (3.5-4.5) mEq/L Chloride 104 (98-109) mEq/L Carbon Dioxide 22 (19-29) mEq/L BUN 22 (8-26) mg/dL Creatinine 1.30 H (0.72-1.25) mg/dL Glucose 199 H (70-99) mg/dL Calcium 9.7 (8.6-10.8) mg/dL Cardiac Enzymes 06/13/16 06/13/16 Range/Units 18:41 14:08 Troponin I 0.02 0.03 (0-0.03) ng/mL Active Medications Acetaminophen (Tylenol) 650 mg PO Q6HR PRN PRN Reason: Mild Pain (1-3) Stop: 12/13/16 10:19 Last Admin: 06/14/16 02:28 Dose: 650 mg Amlodipine Besylate (Norvasc) 5 mg PO DAILY MACI PRN Reason: Protocol Stop: 12/13/16 12:46 Last Admin: 06/14/16 08:41 Dose: 5 mg Aspirin (Aspirin Ec) 81 mg PO DAILY [facility] Stop: 12/14/16 09:01 Last Admin: 06/14/16 08:41 Dose: 81 mg Atorvastatin Calcium (Lipitor) 40 mg PO HS [facility] Stop: 12/13/16 12:46 Last Admin: 06/13/16 20:18 Dose: 40 mg Dextrose/Water (Dextrose 50% (Syg)) 25 ml IVP AD PRN PRN Reason: Hypoglycemia Stop: 12/13/16 15:50 Furosemide (Lasix) 40 mg PO DAILY MACI Stop: 12/13/16 12:46 Last Admin: 06/14/16 08:41 Dose: 40 mg Glucagon (Glucagen) 1 mg IM ONCE PRN PRN Reason: Hypoglycemia Stop: 12/13/16 15:50 Glucose (Gluctose) 15 gm PO ONCE PRN PRN Reason: Hypoglycemia Stop: 12/13/16 15:50 Glucose (Gluctose) 30 gm PO ONCE PRN PRN Reason: Hypoglycemia Stop: 12/13/16 15:50 Dextrose (Dextrose 5%) 1,000 mls @ 100 mls/hr IVC .Q10H PRN PRN Reason: HYPOGLYCEMIA Stop: 12/13/16 15:50 Insulin Human Lispro (Humalog) 0 units SQ HS MACI PRN Reason: Protocol Stop: 12/13/16 21:01 Last Admin: 06/13/16 20:18 Dose: Not Given Insulin Human Lispro (Humalog) 0 units SQ TIDAC [facility] PRN Reason: Protocol Stop: 12/13/16 16:31 Last Admin: 06/14/16 11:57 Dose: 2 units Lisinopril (Zestril) 20 mg PO DAILY [facility] PRN Reason: Protocol Stop: 12/13/16 12:46 Last Admin: 06/14/16 08:41 Dose: 20 mg Metoprolol Tartrate (Lopressor) 25 mg PO BID [facility] Stop: 12/13/16 12:46 Last Admin: 06/14/16 08:41 Dose: 25 mg Naloxone HCl (Narcan) 0.4 mg IVP Q2MIN PRN PRN Reason: Opioid Reversal Stop: 12/13/16 10:19 Nitroglycerin (Nitroglycerin) 0.4 mg SL Q5MIN PRN PRN Reason: Chest Pain Stop: 12/13/16 07:15 Last Admin: 06/13/16 07:19 Dose: 0.4 mg Ondansetron HCl (Zofran) 4 mg IVP Q8HR PRN PRN Reason: Nausea And Vomiting Stop: 12/13/16 10:19 Last Admin: 06/13/16 20:31 Dose: 4 mg Rivaroxaban (Xarelto) 20 mg PO DAILY [facility] Stop: 12/14/16 18:01 - Imaging and Cardiology Stress Test: report reviewed Echo: report reviewed - EKG Interpretation EKG results cardiology: personally reviewed (ventricularly paced), other (24 hour tele AVG HR 66, ventricularly paced, PAF.) Consult Discharge Plan - Plan Referrals: Hannah Rojas [employer] [Advanced Practice Nurse] - 06/24/16 10:10 am <TeodoroalberOdalis - Last Filed: 06/14/16 12:43> Assessment and Plan Discussion w patient/family: The assessment and plan as outlined above was discussed with the patient and/or family members who expressed understanding and agreement. All questions were answered. Thank you for involving us in the care of your patient. Please call with any questions. History of Present Illness History of present illness: Mr. Pizarro is a 75 year old male All Systems Review: A 10-system review of systems was performed and is negative for pertinent findings except as documented above in the HPI. Physical Examination Vital Signs, Last 4 Hours Temp Pulse Resp BP Pulse Ox 06/14/16 10:53 98.0 F 65 10 126/75 96 Results 06/14/16 03:43 06/14/16 03:43 Lab Results 06/13/16 06/13/16 06/14/16 14:08 18:41 03:43 WBC 9.6 Hgb 14.9 Hct 44.1 Plt Count 169 Sodium Potassium Chloride Carbon Dioxide BUN Creatinine Glucose Calcium Troponin I 0.03 0.02 06/14/16 03:43 WBC Hgb Hct Plt Count Sodium 138 Potassium 4.3 Chloride 104 Carbon Dioxide 22 BUN 22 Creatinine 1.30 H Glucose 199 H Calcium 9.7 Troponin I - Attending Attestation I examined this patient and my medical decision-making was reviewed with the REHABILITATION TEAM LEAD/PA/Advanced Practice Nurse/Resident Physician. I agree with the documented findings, disposition and treatment plan. Mr. Pizarro presents with atypical chest pain. His troponins are negative and ECG is nondiagnostic. LVEF is similar to prior. We have discussed consideration of a stress test for an ischemic evaluation.
[2016-06-14] MEDS: *HR* Rivaroxaban 10 MG TABLET PO SCH (16:46)
--- NOTE | 2016-06-14 18:39 | Internal Med Progress Note ---
Date of Encounter: 06/14/16 Time of Encounter: 12:30 - Assessment and plan (1) Chest pain Current Visit: Yes Status: Acute Assessment and plan: Patient currently complaining of chest pain over where his pacemaker is located. No signs of infection around site. Troponins negative 4. Chest x- ray negative. Cardiology brought on board who recommend proceeding with a stress test tomorrow and with the addition of Imdur to his regimen. ITS Impressions Chest X-Ray 06/13/16 06:30 IMPRESSION: No acute cardiopulmonary process. D/ / Justina Dominguez MD / Justina Dominguez MD Interpreting Provider: Justina Dominguez MD Qualifiers: Chest pain type: unspecified Qualified Code(s): R07.9 - Chest pain, unspecified (2) Paroxysmal a-fib Current Visit: Yes Status: Chronic Assessment and plan: Rate controlled, ventricularly paced. Anticoagulated with Xarelto. Cardiology on board (3) Ischemic cardiomyopathy Current Visit: Yes Status: Chronic Assessment and plan: Echocardiogram from today revealing an ejection fraction of 35-40% with moderate diastolic dysfunction and a bicuspid aortic valve. When compared to his echo from 09/25/15, no acute abnormalities. Cardiology on board. No acute exacerbation, euvolemic on examination and denies shortness of breath. Echocardiogram impressions: LVEF 35-40%. Moderate global left systolic dysfunction. Mild left ventricle diastolic sounds. No pulmonary hypertension. No significant valvular dysfunction. Bicuspid aortic valve. (4) Congestive heart failure Current Visit: No Status: Chronic Qualifiers: Congestive heart failure type: combined Congestive heart failure chronicity : chronic Qualified Code(s): I50.42 - Chronic combined systolic (congestive) and diastolic (congestive) heart failure (5) DARLYN (acute kidney injury) Current Visit: Yes Status: Acute Assessment and plan: mild DARLYN overnight; will hold ACEI tomorrow and recheck. (6) CAD (coronary artery disease) Current Visit: Yes Status: Chronic Qualifiers: Coronary Disease-Associated Artery/Lesion type: bypass graft [place] vs. transplanted heart: [place] heart Associated angina: without angina Qualified Code(s): I25.810 - Atherosclerosis of coronary artery bypass graft(s) without angina pectoris (7) Pacemaker Current Visit: Yes Status: Chronic Assessment and plan: Patient complaining of tenderness around his pacemaker. He states it has been in place for 5-6 years and is direct tenderness around it before. No erythema or abnormalities on physical examination. Cardiology on board. (8) HLD (hyperlipidemia) Current Visit: No Status: Chronic Assessment and plan: Lipid panel borderline abnormal with elevated triglycerides, recommend low- cholesterol diet and continuation of his statin Qualifiers: Hyperlipidemia type: unspecified Qualified Code(s): E78.5 - Hyperlipidemia , unspecified (9) History of smoking Current Visit: No Status: Chronic (10) DVT prophylaxis Current Visit: No Status: Acute Assessment and plan: on Xarelto (11) Hypertension Current Visit: No Status: Chronic Assessment and plan: Controlled. At home, he is on metoprolol 25 mg twice a day, lisinopril 20 mg daily, furosemide 40 mg daily, amlodipine 5 mg daily. Holding TEE inhibitor for mild acute kidney injury overnight. We will continue to trend Qualifiers: Hypertension type: essential hypertension Qualified Code(s): I10 - Essential (primary) hypertension (12) DM2 (diabetes mellitus, type 2) Current Visit: No Status: Chronic Assessment and plan: Controlled with an A1c of 6.3% back in February 2016. It does not appear as if he is on any diabetes medications at home, sliding scale while admitted Qualifiers: Diabetes mellitus complication status: with circulatory complication Diabetes mellitus complication detail: with other circulatory complications Diabetes mellitus mcfp insulin use: without oil heaterman use Qualified Code( s): E11.59 - Type 2 diabetes mellitus with other circulatory complications - Subjective Interval history: Patient seen and examined. On examination, patient resting supine in bed watching television. He is alert and oriented 3 and currently complains of "pain around my pacemaker." He denies shortness of breath or any concerns. He also complains of left-sided jaw and ear pain. He denies any balance issues or changes to his hearing. He denies any URI symptoms. - Constitutional Vitals: Temp Pulse Resp BP Pulse Ox 97.5 F L 69 14 122/66 95 06/14/16 15:10 06/14/16 15:10 06/14/16 15:10 06/14/16 15:10 06/14/16 15:10 General appearance: Present: A&O X 3, pleasant, no acute distress, answers questions appropriately - Head Head exam: Present: atraumatic, normocephalic - Eye Eye exam: Present: PERRL, conjuntiva pink, sclera anicteric Pupils: Present: PERRL - Neck Neck exam general surgery: Present: supple, trachea midline. Absent: lymphadenopathy - Respiratory Respiratory exam: Present: CTAB. Absent: accessory muscle use, decreased breath sounds, rales, respiratory distress, rhonchi, wheezes - Cardiovascular Cardiovascular exam: Present: RRR, +S1, +S2. Absent: diastolic murmur, gallop, rubs, systolic murmur Additional comments: PPM in place- no abnormalities on examination- no erythema - GI/Abdominal GI/Abdominal exam: Present: normal bowel sounds, soft, no peritoneal signs. Absent: distended, tenderness - Extremities Exam Extremities exam: Present: warm, radial pulses palpable and symetrical. Absent : calf tenderness, cyanotic, pedal edema - Neurological Exam Neurological exam: Present: alert, CN II-XII intact, normal gait, oriented X3, no focal deficits, strengths equal and symetr throughout. Absent: pronater drift, facial droop, speech deficit - Skin Skin exam: Present: dry, intact, normal color, warm Internal Medicine: Result - Labs CBC & Chem 7: 06/14/16 03:43 06/14/16 03:43 Labs: Short CBC 06/14/16 Range/Units 03:43 WBC 9.6 (4.3-11.1) K/mcL Hgb 14.9 (12.9-16.9) g/dL Hct 44.1 (37.5-50.1) % Plt Count 169 (140-400) K/mcL Neutrophils # 6.2 (1.6-8.9) K/mcL BMP 06/14/16 03:43 Sodium 138 Potassium 4.3 Chloride 104 Carbon Dioxide 22 BUN 22 Creatinine 1.30 H Glucose 199 H Calcium 9.7 Cardiac Enzymes 06/13/16 Range/Units 18:41 Troponin I 0.02 (0-0.03) ng/mL - ABG Interpretation ABG results: PT/INR, D-dimer PT 15.4 Seconds (9.4-12.1) H 06/13/16 07:26 Consult Discharge Plan - Plan Referrals: Hannah Rojas, DARYA [Advanced Practice Nurse] - 06/24/16 10:10 am
[2016-06-14] MEDS ORDERED: *HR* Morphine 2 MG/ML SYRINGE IVP PRN (18:49)
[2016-06-14] MEDS: *HR* Morphine 2 MG/ML SYRINGE IVP PRN (23:21)
[2016-06-15 05:27] LABS: Calcium 9.7 mg/dL (8.6-10.8); Potassium 4.2 mEq/L (3.5-4.5)
[2016-06-15] MEDS ORDERED: Regadenoson 0.4 MG/5 ML SYRINGE IVP ONE (06:25)
[2016-06-15] MEDS: Furosemide 40 MG TABLET PO SCH (09:30)
[2016-06-15] MEDS: Aspirin Enteric Coated 81 MG Tablet PO SCH (09:30)
[2016-06-15] MEDS: amLODIPine 5 MG TABLET PO SCH (09:31)
[2016-06-15] MEDS: Insulin LISPRO 300 UNITS/3 ML VIAL SQ SCH ×4 (09:31→21:24)
[2016-06-15] MEDS: *HR* Rivaroxaban 10 MG TABLET PO SCH (09:31)
[2016-06-15] MEDS: *HR* Morphine 2 MG/ML SYRINGE IVP PRN (09:31)
--- NOTE | 2016-06-15 10:57 | Nuclear Medicine Stress Report ---
Regadenoson Nuclear Stress Name: Yue Pizarro Date of Study: 06/15/2016 Date: 1940 Ht: 70.0 in Medical Record#: [id number] Age: 75 Wt: 201.0 lb Gender: Male Order #: [id number] Location: [facility] Room: [facility] Supervising Provider: Corin Edouard CNP Reading Physician: Mane Harris MD, [facility] Ordering Physician: John Lee CNP Primary Care Physician: None Stress Technologist: Bran Eugene, RENEWALS MANAGER, [facility] Ip Architect: Rohith Valderrama Indications: Chest Pain, Shortness of breath Impression: Patient reported mild-moderate chest pain prior to the study. No change in chest pain with regadenoson. Pharmacologic stress ECG is non-diagnostic for ischemia due to v-paced rhythm. Gated LVEF = 39%. There is small, moderate-severe intensity, fixed perfusion defect in the LV apex. Findings are consistent with a small apical myocardial infarction. There is no evidence of reversible myocardial ischemia. History: Hypertension Diabetes Hypercholesteremia History of Coronary Artery Bypass Surgery Stress Test Summary: Stress Test Type: Pharmacologic Regadenoson 0.4mg/5ml given IV Baseline Information: Initial Heart Rate: 69 Blood Pressure: 120/78 Stress Information: Test Terminated Due to (primary): As per protocol Maximum Blood Pressure: 110/68 Maximum Heart Rate: 79 Percent Maximum Heart Rate Achieved: 55 Double Product: [id number] Symptoms: Chest pain, Shortness of breath Nuclear Summary: SPECT myocardial perfusion imaging using Tc99m Sestamibi given intravenously was performed at rest and following cardiac stress testing. The resting images were obtained following initial dose of 11.4 mCi. Following stress an additional dose of 33.9 mCi was given at peak exercise or 30 seconds post regadenoson infusion. Findings: Stress Note * Resting ECG demonstrated a v-paced rhythm. * Patient reported mild-moderate chest pain prior to the study. No change in chest pain with regadenoson. * V-paced rhythm was present throughout the study. * Pharmacologic stress ECG is non-diagnostic for ischemia due to v-paced rhythm. Hemodynamic responses * Normal hemodynamic responses to pharmacologic stress. Study Quality * Study quality is good. Gated EF % * Gated LVEF = 39%. Left Ventricle * The left ventricle is not dilated. * There is small, moderate-severe intensity, fixed perfusion defect in the LV apex. Findings are consistent with a small apical myocardial infarction. * There is no evidence of reversible myocardial ischemia. TID * No evidence of transient ischemic dilatation. Updated by Mane Harris MD, [facility] on 06/15/2016 10:50:00 AM electronically signed on 06/15/2016 10:50:43 AM with status of Final
--- NOTE | 2016-06-15 13:01 | Cardiology Progress Note ---
Date of Encounter: 06/15/16 Time of Encounter: 13:00 Assessment and Plan (1) Chest pain Current Visit: Yes Status: Acute Reports chest pain intermittently over recent days, left sided and sharp in nature not associated with exertion. Chest pain free currently. Known ICMP--hx of CABG in 2002. EF known previously to be 35%--current echo EF 35-40%, global hypokinesis. Troponins negative x 4. EKG ventricularly paced. Stress test today showed gated EF 39%. Small, moderate-severe intensity fixed perfusion defect in LV apex consistent with small apical ID. No reversible ischemia. Pt with known hx of ID. No further cardiac work-up necessary. Will add Imdur 30mg daily. Follow-up as outpt in 1-2 weeks. Cardiology is signing off. Reconsult PRN. Qualifiers: Chest pain type: unspecified Qualified Code(s): R07.9 - Chest pain, unspecified (2) Ischemic cardiomyopathy Current Visit: Yes Status: Chronic EF 35-40%. Hx of CABG in 2002. Continue BB, TEE-I and Lasix. Pt euvolemic on exam. (3) Paroxysmal a-fib Current Visit: Yes Status: Chronic Continue BB. Ventricularly paced. Anticoagulated on Xarelto. Recommend checking BMP as outpt since he has had worsening renal function. Will leave Xarelto dose at 20mg daily since renal function is normal at baseline. Current creatinine clearance 56. (4) Pacemaker Current Visit: Yes Status: Chronic PPM in place, follows with device clinic. (5) CAD (coronary artery disease) Current Visit: Yes Status: Chronic Hx of CABG in 2002. Continue ASA, Statin, BB, TEE-I. Add nitrate. Qualifiers: Coronary Disease-Associated Artery/Lesion type: bypass graft [place] vs. transplanted heart: [place] heart Associated angina: without angina Qualified Code(s): I25.810 - Atherosclerosis of coronary artery bypass graft(s) without angina pectoris (6) DARLYN (acute kidney injury) Current Visit: Yes Status: Acute Creat 1.42 today, worsened from yesterday 1.30. Previously normal renal function. Recommend rechecking as outpt. Discussion w patient/family: The assessment and plan as outlined above was discussed with the patient and/or family members who expressed understanding and agreement. All questions were answered. Thank you for involving us in the care of your patient. Please call with any questions. I will discuss all the above with Dr. Garcia and make changes as necessary. Subjective Principal diagnosis: Chest pain Interval history: Pt reports intermittent chest pain overnight, denies any currently. Reports cough, but no worsening dyspnea. Stress test this AM resulted--evidence of prior ID, but no reversible ischemia. Gated EF 39%, known. Objective Vital Signs, Last 4 Hours Temp Pulse Resp BP Pulse Ox 06/15/16 11:34 97.5 F L 62 14 138/76 91 L 06/15/16 09:15 97.8 F 64 16 129/78 95 Vital Signs Temp Pulse Resp BP Pulse Ox 06/15/16 11:34 97.5 F L 62 14 138/76 91 L 06/15/16 09:15 97.8 F 64 16 129/78 95 06/15/16 03:08 98.5 F 75 17 106/63 96 06/14/16 23:18 98.2 F 69 12 123/70 97 06/14/16 21:47 97 06/14/16 18:59 97.7 F 69 12 126/71 94 L 06/14/16 15:10 97.5 F L 69 14 122/66 95 Intake and Output 06/14/16 06/15/16 06/15/16 23:59 07:59 15:59 Intake Total 1000 / 1000 240 / 240 Output Total 0 / 0 Balance 1000 / 1000 240 / 240 Intake: Oral 1000 / 1000 240 / 240 Output: Urine 0 / 0 Other: Meal Breakfast Percent of Meal Consumed 100% Weight 91.1 kg Blood Glucose* 238 297 Patient Weight 06/15/16 23:59 Weight 91.1 kg General: Conversant, No Apparent Distress HEENT: Atraumatic, Normocephaly, Mucus Membranes Moist Neck: No JVD, Normal carotid pulses Cardiac: Reg Rate and Rhythm, Normal S1 and S2, No Murmur Lungs: Normal Breath Sounds, No Wheeze, Rales, Rhonchi Neuro: Alert and responsive, No focal deficits noted Abdomen: Soft, Non-Tender Skin: No rashes noted on visualized skin Musculoskeletal: No Chest Wall Tenderness Extremities: No Clubbing, No Cyanosis, No Edema, Normal Pulses Results 06/14/16 03:43 06/15/16 04:09 Lab Results 06/15/16 04:09 Sodium 138 Potassium 4.2 Chloride 103 Carbon Dioxide 25 BUN 34 H D Creatinine 1.42 H Glucose 168 H Calcium 9.7 BMP 06/15/16 Range/Units 04:09 Sodium 138 (136-145) mEq/L Potassium 4.2 (3.5-4.5) mEq/L Chloride 103 (98-109) mEq/L Carbon Dioxide 25 (19-29) mEq/L BUN 34 H D (8-26) mg/dL Creatinine 1.42 H (0.72-1.25) mg/dL Glucose 168 H (70-99) mg/dL Calcium 9.7 (8.6-10.8) mg/dL Active Medications Acetaminophen (Tylenol) 650 mg PO Q6HR PRN PRN Reason: Mild Pain (1-3) Stop: 12/13/16 10:19 Last Admin: 06/14/16 18:43 Dose: 650 mg Amlodipine Besylate (Norvasc) 5 mg PO DAILY [facility] PRN Reason: Protocol Stop: 12/13/16 12:46 Last Admin: 06/15/16 09:31 Dose: 5 mg Aspirin (Aspirin Ec) 81 mg PO DAILY [facility] Stop: 12/14/16 09:01 Last Admin: 06/15/16 09:30 Dose: 81 mg Atorvastatin Calcium (Lipitor) 40 mg PO HS [facility] Stop: 12/13/16 12:46 Last Admin: 06/14/16 21:47 Dose: 40 mg Dextrose/Water (Dextrose 50% (Syg)) 25 ml IVP AD PRN PRN Reason: Hypoglycemia Stop: 12/13/16 15:50 Furosemide (Lasix) 40 mg PO DAILY [facility] Stop: 12/13/16 12:46 Last Admin: 06/15/16 09:30 Dose: 40 mg Glucagon (Glucagen) 1 mg IM ONCE PRN PRN Reason: Hypoglycemia Stop: 12/13/16 15:50 Glucose (Gluctose) 15 gm PO ONCE PRN PRN Reason: Hypoglycemia Stop: 12/13/16 15:50 Glucose (Gluctose) 30 gm PO ONCE PRN PRN Reason: Hypoglycemia Stop: 12/13/16 15:50 Dextrose (Dextrose 5%) 1,000 mls @ 100 mls/hr IVC .Q10H PRN PRN Reason: HYPOGLYCEMIA Stop: 12/13/16 15:50 Insulin Human Lispro (Humalog) 0 units SQ HS [facility] PRN Reason: Protocol Stop: 12/13/16 21:01 Last Admin: 06/14/16 21:48 Dose: 3 units Insulin Human Lispro (Humalog) 0 units SQ TIDAC [facility] PRN Reason: Protocol Stop: 12/13/16 16:31 Last Admin: 06/15/16 09:31 Dose: 4 units Isosorbide Mononitrate (Imdur) 30 mg PO DAILY [facility] Stop: 12/15/16 11:31 Lisinopril (Zestril) 20 mg PO DAILY [facility] PRN Reason: Protocol Stop: 12/13/16 12:46 Last Admin: 06/14/16 08:41 Dose: 20 mg Metoprolol Tartrate (Lopressor) 25 mg PO BID [facility] Stop: 12/13/16 12:46 Last Admin: 06/15/16 09:30 Dose: 25 mg Morphine Sulfate (Morphine Sulfate) 2 mg IVP Q4HR PRN PRN Reason: Moderate Pain Stop: 12/14/16 18:50 Last Admin: 06/15/16 09:31 Dose: 2 mg Morphine Sulfate (Morphine Sulfate) 4 mg IVP Q4HR PRN PRN Reason: Severe Pain Stop: 12/14/16 18:50 Naloxone HCl (Narcan) 0.4 mg IVP Q2MIN PRN PRN Reason: Opioid Reversal Stop: 12/13/16 10:19 Nitroglycerin (Nitroglycerin) 0.4 mg SL Q5MIN PRN PRN Reason: Chest Pain Stop: 12/13/16 07:15 Last Admin: 06/13/16 07:19 Dose: 0.4 mg Ondansetron HCl (Zofran) 4 mg IVP Q8HR PRN PRN Reason: Nausea And Vomiting Stop: 12/13/16 10:19 Last Admin: 06/13/16 20:31 Dose: 4 mg Rivaroxaban (Xarelto) 20 mg PO DAILY [facility] Stop: 12/14/16 18:01 Last Admin: 06/15/16 09:31 Dose: 20 mg - Imaging and Cardiology Stress Test: report reviewed Echo: report reviewed - EKG Interpretation EKG results cardiology: other (24 hour tele AVG HR 66, V-paced.) Consult Discharge Plan - Plan Referrals: Hannah Rojas, HEATER OPERATOR HELPER [Advanced Practice Nurse] - 06/24/16 10:10 am
[2016-06-15] MEDS: Isosorbide MONOnitrate (24 HR) 30 MG TAB.ER.24H PO SCH (14:04)
[2016-06-15] MEDS: Pantoprazole 40 MG VIAL IVP SCH (17:46)
[2016-06-15] MEDS: 0.9 % Sodium Chloride 1,000 ML IVC SCH (17:46)
--- NOTE | 2016-06-15 19:25 | Internal Med Progress Note ---
Date of Encounter: 06/15/16 Time of Encounter: 10:50 - Assessment and plan (1) Chest pain Current Visit: Yes Status: Acute Assessment and plan: Patient was initially admitted for history of chest pain over left chest worse pacemaker is located. His troponins were negative and his chest x-ray was negative. Patient had a stress and echo done. And had Imdur added to his medication regimen. Today he complains of what he describes as feels like acid reflux. States that he feels like burning in his upper chest. And states that he normally takes care of this with Tums at home. He is tender to the epigastric and gastric area. He is not tender anywhere else in his abdomen. Echo showed LVEF 35-40%, moderate global LV systolic dysfunction, mild LV diastolic dysfunction and no significant valvular dysfunction. His stress showed no change in chest pain with this medication and he reported mild to moderate chest pain prior to the study. The ECG is nondiagnostic for ischemia due to the paced rhythm. Gated LVEF 39%. He was seen today by cardiology. They signed off saying he needs no further cardiac workup. The added Imdur 30 mg daily. And patient will need follow-up in 1-2 weeks. Qualifiers: Chest pain type: unspecified Qualified Code(s): R07.9 - Chest pain, unspecified (2) Congestive heart failure Current Visit: No Status: Chronic Assessment and plan: Chronic. Stable. Continue to monitor. Qualifiers: Congestive heart failure type: combined Congestive heart failure chronicity : chronic Qualified Code(s): I50.42 - Chronic combined systolic (congestive) and diastolic (congestive) heart failure (3) GERD (gastroesophageal reflux disease) Current Visit: Yes Status: Acute Assessment and plan: Patient reports recent history of GERD. States he normally takes Tums that resolved the symptoms. symptoms. We will continue to monitor and potentially add PPI to regimen prior to discharge. Qualifiers: Esophagitis presence: esophagitis presence not specified Qualified Code(s) : K21.9 - Gastro-esophageal reflux disease without esophagitis (4) CAD (coronary artery disease) Current Visit: Yes Status: Chronic Assessment and plan: Chronic. Plan as above. Patient had CABG in 2002. Continue his aspirin, statin, beta fuentes, TEE inhibitor, and added Imdur 30 mg by mouth daily Qualifiers: Coronary Disease-Associated Artery/Lesion type: bypass graft [place] vs. transplanted heart: [place] heart Associated angina: without angina Qualified Code(s): I25.810 - Atherosclerosis of coronary artery bypass graft(s) without angina pectoris (5) Pacemaker Current Visit: Yes Status: Chronic Assessment and plan: Chronic. Site not infected. EKG shows paced rhythm. (6) HLD (hyperlipidemia) Current Visit: No Status: Chronic Assessment and plan: Low-cholesterol diet continue statin. Qualifiers: Hyperlipidemia type: unspecified Qualified Code(s): E78.5 - Hyperlipidemia , unspecified (7) History of smoking Current Visit: No Status: Chronic Assessment and plan: Chronic. (8) Ischemic cardiomyopathy Current Visit: Yes Status: Chronic Assessment and plan: Plan as above. (9) Paroxysmal a-fib Current Visit: Yes Status: Chronic Assessment and plan: Rate controlled, ventricularly paced. Continue Xarelto. (10) DARLYN (acute kidney injury) Current Visit: Yes Status: Acute Assessment and plan: Creatinine 1.42 today. Will recheck in the morning. TEE inhibitor was held. (11) DVT prophylaxis Current Visit: No Status: Acute Assessment and plan: Continue anticoagulant from home. - Time Spent With Patient less than 15 minutes - Subjective Interval history: Patient denies chest pain that he was admitted with, however he now has upper mid chest pain and states it feels like acid reflux. He does have a history of acid reflux. He reports vomiting last night he yellow. Denies any blood in his stool or emesis. He is very tender to epigastric area and left upper quadrant again he says this is a new pain and not the same pain he was admitted for previously. He says that he normally treats his reflux symptoms, which I did give. Patient was seen by cardiology today, they signed off. He will need to follow-up outpatient 1-2 weeks in the office. - Constitutional Vitals: Temp Pulse Resp BP Pulse Ox 97.7 F 77 16 147/74 94 L 06/15/16 15:26 06/15/16 15:26 06/15/16 15:26 06/15/16 15:26 06/15/16 15:26 General appearance: Present: A&O X 3, pleasant, no acute distress, answers questions appropriately - Head Head exam: Present: normal inspection - Eye Eye exam: Present: normal appearance, conjuntiva pink - ENT ENT exam: Present: mucous membranes moist, normal exam - Neck Neck exam general surgery: Present: normal inspection. Absent: lymphadenopathy , tenderness - Respiratory Respiratory exam: Present: CTAB. Absent: respiratory distress, rhonchi, stridor , wheezes, tachypnea - Cardiovascular Cardiovascular exam: Present: RRR, +S1, +S2. Absent: diastolic murmur, systolic murmur - GI/Abdominal GI/Abdominal exam: Present: guarding, normal bowel sounds, tenderness. Absent: distended, hepatomegaly, rebound Additional comments: Patient tender in epigastric area and stomach area. - Extremities Exam Extremities exam: Present: normal capillary refill, normal inspection, warm, radial pulses palpable and symetrical. Absent: pedal edema, tenderness - Neurological Exam Neurological exam: Present: alert, oriented X3, no focal deficits, strengths equal and symetr throughout. Absent: facial droop, speech deficit Internal Medicine: Result - Labs CBC & Chem 7: 06/14/16 03:43 06/15/16 04:09 Labs: BMP 06/15/16 04:09 Sodium 138 Potassium 4.2 Chloride 103 Carbon Dioxide 25 BUN 34 H D Creatinine 1.42 H Glucose 168 H Calcium 9.7 - ABG Interpretation ABG results: PT/INR, D-dimer PT 15.4 Seconds (9.4-12.1) H 06/13/16 07:26 Consult Discharge Plan - Plan Referrals: Hannah Rojas, PUBLIC INFORMATION COORDINATOR [Advanced Practice Nurse] - 06/24/16 10:10 am
[2016-06-15] MEDS: Acetaminophen 325 MG TABLET PO PRN (21:23)
[2016-06-16 04:24] LABS: Basophils # 0.1 K/mcL (0.0-0.2); Eosinophils # 0.4 K/mcL (0.0-0.6); Eosinophils % 4.5 %; Hematocrit 40.9 % (37.5-50.1); Hemoglobin 13.9 g/dL (12.9-16.9); Immature Granulocytes % 0.3 % (0-4); Lymphocytes # 2.3 K/mcL (0.6-4.6); Lymphocytes % 25.5 %; Mean Corpuscular Hemoglobin 30.1 pg (28.0-33.3); Mean Corpuscular Volume 88.5 fL (83.0-100.0); Mean Platelet Volume 11.8 fL (9.4-12.4); Monocytes # 0.8 K/mcL (0.0-1.3); Monocytes % 8.6 %; Neutrophils # 5.5 K/mcL (1.6-8.9); Platelet Count 158 K/mcL (140-400); Red Blood Count 4.62 M/mcL (4.19-5.50); Red Cell Distribution Width 12.5 % (11.5-14.5); Segmented Neutrophils % 60.1 %
[2016-06-16 04:46] LABS: Calcium 9.3 mg/dL (8.6-10.8)
[2016-06-16] MEDS: Isosorbide MONOnitrate (24 HR) 30 MG TAB.ER.24H PO SCH (08:15)
[2016-06-16] MEDS: Furosemide 40 MG TABLET PO SCH (08:15)
[2016-06-16] MEDS: *HR* Rivaroxaban 15 MG TABLET PO SCH (08:16)
[2016-06-16] MEDS: Pantoprazole 40 MG VIAL IVP SCH (08:16)
[2016-06-16] MEDS: Aspirin Enteric Coated 81 MG Tablet PO SCH (08:16)
[2016-06-16] MEDS: Insulin LISPRO 300 UNITS/3 ML VIAL SQ SCH ×4 (08:16→23:02)
[2016-06-16] MEDS: amLODIPine 5 MG TABLET PO SCH (08:18)
[2016-06-16 16:16] LABS: Basophils # 0.1 K/mcL (0.0-0.2); Basophils % 0.8 %; Eosinophils # 0.4 K/mcL (0.0-0.6); Eosinophils % 3.9 %; Hematocrit 44.3 % (37.5-50.1); Hemoglobin 14.7 g/dL (12.9-16.9); Immature Granulocytes % 0.3 % (0-4); Lymphocytes # 1.9 K/mcL (0.6-4.6); Lymphocytes % 20.7 %; Mean Corpuscular HGB Conc 33.2 g/dL (31.6-35.5); Mean Corpuscular Hemoglobin 28.9 pg (28.0-33.3); Mean Platelet Volume 11.1 fL (9.4-12.4); Monocytes # 0.9 K/mcL (0.0-1.3); Monocytes % 9.5 %; Neutrophils # 5.9 K/mcL (1.6-8.9); Platelet Count 169 K/mcL (140-400); Red Blood Count 5.09 M/mcL (4.19-5.50); Red Cell Distribution Width 12.3 % (11.5-14.5); Segmented Neutrophils % 64.8 %
[2016-06-16 16:27] LABS: INR 1.6; Prothrombin Time 17.8 Seconds (9.4-12.1)
[2016-06-16 16:28] LABS: BUN/Creatinine Ratio 27 (6-26); Blood Urea Nitrogen 36 mg/dL (8-26); Calcium 9.8 mg/dL (8.6-10.8); Carbon Dioxide 23 mEq/L (19-29); Chloride 104 mEq/L (98-109); Glucose 156 mg/dL (70-99); Osmolality,Calculated 296 (280-300); Potassium 4.3 mEq/L (3.5-4.5); Sodium 137 mEq/L (136-145); eGFR For African Americans > 60 (> 60); eGFR For Non-African Americans 53 (> 60)
[2016-06-16 16:29] LABS: Activated Partial Thrombo Time 37.1 Seconds (26.0-36.0)
[2016-06-16] MEDS: 0.9 % Sodium Chloride 1,000 ML IVC SCH (16:59)
--- NOTE | 2016-06-16 17:50 | Internal Med Progress Note ---
Date of Encounter: 06/15/16 Time of Encounter: 15:30 - Assessment and plan (1) Chest pain Current Visit: Yes Status: Acute Assessment and plan: Patient denied chest pain today. His epigastric pain also had resolved. His echo showed LVEF 35-40% with moderate global left left ventricular systolic dysfunction. Stress test was nondiagnostic for ischemia due to paced rhythm, gated LVEF 39%. Patient was very seen for cardiology for this and cleared to go home. Discussed patient going home today. He stated that he felt another day here was needed did not feels if he is ready to go home. I discussed him going home and what he might need to make his transition easier. He said that he had a ride home. And he was ready for discharge. At approximately 2:30 he began having chest pain again after getting up to go to the bathroom. He stated that he was having pain at his pacemaker site again. EKG was done and was unchanged from admission. Still showed paced rhythm. Core Blower Operator labs Monitor vital signs Prepare patient for discharge tomorrow. Qualifiers: Chest pain type: unspecified Qualified Code(s): R07.9 - Chest pain, unspecified (2) Congestive heart failure Current Visit: No Status: Chronic Assessment and plan: Chronic. Stable. Continue to monitor. Qualifiers: Congestive heart failure type: combined Congestive heart failure chronicity : chronic Qualified Code(s): I50.42 - Chronic combined systolic (congestive) and diastolic (congestive) heart failure (3) GERD (gastroesophageal reflux disease) Current Visit: Yes Status: Acute Assessment and plan: Patient had no more symptoms of reflux today. Abdomen was nontender. We will continue medications. Qualifiers: Esophagitis presence: esophagitis presence not specified Qualified Code(s) : K21.9 - Gastro-esophageal reflux disease without esophagitis (4) CAD (coronary artery disease) Current Visit: Yes Status: Chronic Assessment and plan: Chronic. Plan as above. Qualifiers: Coronary Disease-Associated Artery/Lesion type: bypass graft [place] vs. transplanted heart: [place] heart Associated angina: without angina Qualified Code(s): I25.810 - Atherosclerosis of coronary artery bypass graft(s) without angina pectoris (5) Pacemaker Current Visit: Yes Status: Chronic Assessment and plan: Chronic. (6) HLD (hyperlipidemia) Current Visit: No Status: Chronic Assessment and plan: Chronic. Continue home medications. Qualifiers: Hyperlipidemia type: unspecified Qualified Code(s): E78.5 - Hyperlipidemia , unspecified (7) History of smoking Current Visit: No Status: Chronic Assessment and plan: Chronic. (8) Ischemic cardiomyopathy Current Visit: Yes Status: Chronic Assessment and plan: Chronic. Plan unchanged, as above (9) Paroxysmal a-fib Current Visit: Yes Status: Chronic Assessment and plan: Rate controlled, ventricularly paced. Continue Xarelto. (10) DARLYN (acute kidney injury) Current Visit: Yes Status: Acute Assessment and plan: Chronic. We will continue to monitor (11) DVT prophylaxis Current Visit: No Status: Acute Assessment and plan: Continue anticoagulant from home. (12) Weakness Current Visit: Yes Status: Acute Assessment and plan: At approximately 3:30 today patient reported to his nurse that he was having all over facial numbness and left-sided weakness. I did go and assessed the patient immediately. His left hand grasp was only slightly weaker than his right. He was able to lift both legs off the bed 1 at a time and hold them to a count of 10. He had no pronator drift. He also reported that he is having difficulty swallowing. Swallowing evaluation was performed and patient requested a mechanically altered diet. His pupils were equal reactive, his speech was clear, he was able to follow commands. FACIAL movements were symmetrical and there was no deviation with his tongue. CT was done immediately that showed no hemorrhage or intracranial process. Labs were done and remain the same as this morning. Accu-Chek was within normal limits. I did speak with Dr. Garcia by phone for a neurology consult. He is familiar with this patient, will see him. Telemetry Neuro checks Monitor vital signs Monitor labs Patient condition Mechanically altered diet - Time Spent With Patient 25 - 35 minutes - Subjective Interval history: I did assess patient early this morning at approximately 1045. His abdominal tenderness had resolved. He denied chest pain. When I suggested to him that I was planning on discharging him, he states that he felt like he needed another day here. Patient stated that he had a ride home, said that he was going to use [employer] transportation. At about 2:30 PM he began having chest pain, an EKG was done that showed no change from baseline. At 3:30 he reported to his nurse that he was not able to go home because he was having diffuse facial numbness and right-sided weakness. He said that he was having trouble swallowing as well. Speech did a swallowing evaluation and patient decided that he would like to have mechanically altered diet. He had no dysarthria. He was taken to CAT scan which showed no acute intracranial abnormality no hemorrhage. His labs remained unchanged from this morning. His right hand grasp was only slightly weaker than his left. He was able to raise both legs off the bed and hold them there to account of 10 without difficulty. We will continue to monitor him through the night. - Constitutional Vitals: Temp Pulse Resp BP Pulse Ox 97.6 F 70 16 139/55 95 06/16/16 15:21 06/16/16 15:21 06/16/16 15:21 06/16/16 15:21 06/16/16 15:21 General appearance: Present: A&O X 3, pleasant, no acute distress, answers questions appropriately - Head Head exam: Present: normal inspection - Eye Eye exam: Present: normal appearance, PERRL, conjuntiva pink. Absent: nystagmus , periorbital swelling - ENT ENT exam: Present: mucous membranes moist, normal exam - Neck Neck exam general surgery: Present: normal inspection. Absent: lymphadenopathy , tenderness - Respiratory Respiratory exam: Present: decreased breath sounds. Absent: chest wall tenderness, rales, respiratory distress, rhonchi, stridor, wheezes, tachypnea - Cardiovascular Cardiovascular exam: Present: RRR, +S1, +S2. Absent: diastolic murmur, distant heart sounds, systolic murmur - Expanded Cardiovascular Exam Peripheral pulses: 2+: Dorsalis Pedis (L) PM, Dorsalis Pedis (R) PM - GI/Abdominal GI/Abdominal exam: Present: distended, normal bowel sounds, soft. Absent: tenderness - Extremities Exam Extremities exam: Present: full ROM, normal capillary refill, normal inspection , warm, radial pulses palpable and symetrical. Absent: mottling, pedal edema, tenderness - Neurological Exam Neurological exam: Present: alert, oriented X3. Absent: strengths equal and symetr throughout, pronater drift, facial droop, speech deficit - Expanded Neurological Exam Neurological exam expanded: Absent: expressive aphasia Patient oriented to: Present: person, place, time Speech: Present: fluid speech. Absent: garbled, receptive aphasia, slurred Cranial Nerves: tongue deviation PM: Normal Cerebellar function: finger to nose: Normal, heel to cutler: Normal, Romberg: Normal Upper motor neuron: pronator drift: Normal Neuro motor strength exam: LUE: 4, RUE: 5, LLE: 5, RLE: 5 Coma Scale Eye Opening: Spontaneous Coma Scale Motor Response: Obeys Commands Coma Scale Verbal Response: Oriented Coma Scale Total: 15 Internal Medicine: Result - Labs CBC & Chem 7: 06/16/16 16:00 06/16/16 16:00 Labs: Short CBC 06/16/16 06/16/16 Range/Units 03:52 16:00 WBC 9.1 9.1 (4.3-11.1) K/mcL Hgb 13.9 14.7 (12.9-16.9) g/dL Hct 40.9 44.3 (37.5-50.1) % Plt Count 158 169 (140-400) K/mcL Neutrophils # 5.5 5.9 (1.6-8.9) K/mcL BMP 06/16/16 06/16/16 03:52 16:00 Sodium 136 137 Potassium 4.0 4.3 Chloride 105 104 Carbon Dioxide 23 23 BUN 41 H 36 H Creatinine 1.40 H 1.32 H Glucose 178 H 156 H Calcium 9.3 9.8 - ABG Interpretation ABG results: PT/INR, D-dimer PT 17.8 Seconds (9.4-12.1) H 06/16/16 16:00 - Impressions Impressions Head CT 06/16/16 15:22 IMPRESSION: No acute intracranial abnormality. D/ / Jose Wilkes MD / Jose Wilkes MD Interpreting Provider: Jose Wilkes MD Consult Discharge Plan - Plan Referrals: Hannah Rojas, DARYA [Advanced Practice Nurse] - 06/24/16 10:10 am Seth Herrera DO [Partnered Physician] - 07/01/16 12:00 pm
[2016-06-16] MEDS: Acetaminophen 325 MG TABLET PO PRN (23:01)
[2016-06-17 04:49] LABS: Basophils # 0.1 K/mcL (0.0-0.2); Basophils % 0.8 %; Eosinophils # 0.4 K/mcL (0.0-0.6); Eosinophils % 5.1 %; Hematocrit 42.3 % (37.5-50.1); Hemoglobin 14.1 g/dL (12.9-16.9); Immature Granulocytes % 0.2 % (0-4); Lymphocytes % 23.2 %; Mean Corpuscular HGB Conc 33.3 g/dL (31.6-35.5); Mean Corpuscular Hemoglobin 29.1 pg (28.0-33.3); Mean Corpuscular Volume 87.2 fL (83.0-100.0); Mean Platelet Volume 10.9 fL (9.4-12.4); Monocytes # 0.8 K/mcL (0.0-1.3); Monocytes % 9.6 %; Neutrophils # 5.1 K/mcL (1.6-8.9); Platelet Count 138 K/mcL (140-400); Red Blood Count 4.85 M/mcL (4.19-5.50); Red Cell Distribution Width 12.2 % (11.5-14.5); Segmented Neutrophils % 61.1 %
[2016-06-17 05:03] LABS: BUN/Creatinine Ratio 28 (6-26); Blood Urea Nitrogen 32 mg/dL (8-26); Calcium 9.3 mg/dL (8.6-10.8); Carbon Dioxide 23 mEq/L (19-29); Chloride 105 mEq/L (98-109); Glucose 154 mg/dL (70-99); Osmolality,Calculated 296 (280-300); Sodium 138 mEq/L (136-145); eGFR For African Americans > 60 (> 60); eGFR For Non-African Americans > 60 (> 60)
--- NOTE | 2016-06-17 09:29 | Neurology - Consult Note ---
Date of Encounter: 06/15/16 Time of Encounter: 09:25 Assessment and Plan (1) Intermittent paresthesia of left hand and foot Current Visit: Yes Status: Chronic Patient has been having these symptoms for nearly 50 years and negative workup thus far; suspect psychogenic etiology Head CT was negative for acute intracranial abnormalities; he cannot receive MRI due to presence of pacemaker Agree with continuing home medications of ASA, statin, and Xarelto Echo during this admission revealed EF 35-40% which is unchanged from previous study Last Carotid duplex performed in October 2015 showed bilateral non-stenotic plaque; no need for repeat this time Will workup metabolic derangements with B12, Folate; TSH done 3 months ago was WNL History of Present Illness Chief complaint: chest pain, chronic numbness/tingling HPI: Mr. Pizarro is a 75 year old male who initially presented on 06/13/2016 with chest pain, cardiology was consulted and negative workup thus far including stress test and troponin. His chest pain has since resolved, and neurology has been consulted for his complaints of left sided numbness and tingling. He states it starts at his fingers and is goes up his left arm, face, neck, and eventually down his left leg and toes. He states these symptoms have been intermittent since 1967 and he reports no triggering or relieving factors. He denies having any formal workup in the past and denies history of strokes or seizures. Patient does not report any focal weakness, vision changes, incontinence, frequent falls, but admits to chronic hearing deficits. He does complain of nausea but has not had any vomiting, diarrhea, or constipation. Of note, he does have chronic AFib s/p pacemaker and he is on Xarelto. Past Med Surg Social Fam HX - Past Medical History Medical history: coronary artery disease, CVA, diabetes, hypertension, myocardial infarction, thyroid disease Psychiatric history: no psych history - Past Surgical History Surgical History: cholecystectomy, coronary bypass (CABG), pacemaker/AICD - Social History Smoking Status: Former smoker Smokeless Tobacco Status: No Alcohol use: none Drug use: none - Family History Grandfather Living Status: Hx Family Cardiac Disorders: Yes Mother Living Status: Father Adopted: No Living Status: Medications and Allergies Aspirin Enteric Coated [Aspirin EC] 81 mg PO DAILY #30 tablet. 02/21/16 [Rx] Atorvastatin [Lipitor] 40 mg PO HS #30 tablet 02/21/16 [Rx] Furosemide [Lasix] 40 mg PO DAILY #30 tablet 02/21/16 [Rx] Metoprolol [Lopressor] 25 mg PO BID #60 tablet 02/21/16 [Rx] Nitroglycerin [Nitrostat] 0.4 mg SL AD PRN #10 tab.subl 02/21/16 [Rx] Amlodipine [Norvasc] 5 mg PO DAILY 06/13/16 [History] Lisinopril [Zestril] 20 mg PO DAILY 06/13/16 [History] Rivaroxaban [Xarelto] 20 mg PO DAILY 06/13/16 [History] Allergies Oxycodone [From Percocet] Allergy (Verified 06/13/16 06:15) Hives tramadol Allergy (Verified 06/13/16 06:15) Hives All Systems: A 10-system review of systems was performed and is negative for pertinent findings except as documented above in the HPI. - Constitutional Constitutional ROS IM: no fever(s), no frequent falls, no headache(s), no weakness - Ears Ears: bilateral: decreased hearing - Nose, Mouth, Throat Nose, mouth and throat: no disequilibrium, no headache(s) - Cardiovascular Cardiovascular ROS IM: irregular heart rhythm, no chest pain, no dyspnea, no leg edema, no lightheadedness - Respiratory Respiratory IM: no cough, no wheezing - Gastrointestinal Gastrointestinal: nausea, no abdominal pain, no diarrhea, no hematemesis, no melena, no vomiting - Genitourinary Genitourinary ROS: no dysuria, no urinary frequency, no urinary urgency - Musculoskeletal Musculoskeletal ROS IM: numbness, tingling, no muscle weakness - Neurological Neurological ROS: no frequent falls, no loss of vision, no syncope, no weakness Physical Examination - Vital Signs Vital Signs: Initial Vital Signs Temp Pulse Resp BP Pulse Ox 97.7 F 70 16 167/85 98 06/13/16 06:16 06/13/16 06:16 06/13/16 06:16 06/13/16 06:16 06/13/16 06:16 - Constitutional General appearance: comfortable - Neurologic Sensorimotor examination: intact Detailed motor examination: full strength in all major muscle groups Motor examination - right side: 5/5: deltoids, biceps, triceps, plant operations coordinator, hip flexors Motor examination - left side: 5/5: deltoids, biceps, triceps, hip flexors, plant operations coordinator , quadriceps Detailed sensory examination: intact (slight decrease to sensation on left side diffusely) Reflex and gait examination: intact Reflexes: Biceps: 2+, Patella: 2+, Achilles: 2+ Mental Status Examination: awake, alert, oriented to person, oriented to place, oriented to time, follows commands appropriately, answers questions appropriately, no agnosia, no aphasia, no aproxia Cranial nerve examination: PERRL, EOMI, visual carrero intact, corneal reflexes brisk symmetrically, sensory to face intact, mastication intact, no facial asymmetry is present, no dysarthria, hearing is intact symmetrically, soft palate elevates bilaterally upon phonation, gag reflex intact, flexes SCM and trapezius muscles symmetrically with full power, tongue protrudes midline, no atrophy or facial fasiculations present Cerebellar examination: no dysmetria, performs finger to nose and heel to cutler symmetrically without ataxia, no gait ataxia, no truncal ataxia, no difficulty with rapid alternating movements Results - Laboratory Findings CBC and BMP: 06/17/16 04:31 06/17/16 04:31 Abnormal lab findings: Abnormal lab results Plt Count 138 K/mcL (140-400) L 06/17/16 04:31 PT 17.8 Seconds (9.4-12.1) H 06/16/16 16:00 APTT 37.1 Seconds (26.0-36.0) H 06/16/16 16:00 BUN 32 mg/dL (8-26) H 06/17/16 04:31 BUN/Creatinine Ratio 28 (6-26) H 06/17/16 04:31 Glucose 154 mg/dL (70-99) H 06/17/16 04:31 POC Glucose 175 (58-89) H 06/17/16 07:33 Triglycerides 216 mg/dL (< 150) H 06/14/16 03:43 VLDL Cholesterol, Calc 43 mg/dL (< 31) H 06/14/16 03:43 HDL Cholesterol 34 mg/dL (40-59) L 06/14/16 03:43 Consult Discharge Plan - Plan Referrals: Hannah Rojas CNP [Advanced Practice Nurse] - 06/24/16 10:10 am Seth Herrera DO [Partnered Physician] - 07/01/16 12:00 pm
[2016-06-17] MEDS: Insulin LISPRO 300 UNITS/3 ML VIAL SQ SCH ×2 (09:30→12:49)
[2016-06-17] MEDS: amLODIPine 5 MG TABLET PO SCH (09:31)
[2016-06-17] MEDS: Isosorbide MONOnitrate (24 HR) 30 MG TAB.ER.24H PO SCH (09:31)
[2016-06-17] MEDS: Aspirin Enteric Coated 81 MG Tablet PO SCH (09:31)
[2016-06-17] MEDS: *HR* Rivaroxaban 15 MG TABLET PO SCH (09:31)
[2016-06-17] MEDS: Pantoprazole 40 MG VIAL IVP SCH (09:31)
[2016-06-17] MEDS: Furosemide 40 MG TABLET PO SCH (09:31)
[2016-06-17 11:34] LABS: Folate 14.9 ng/mL (7.0-31.4)
[2016-06-17 14:37] VITALS: BP 113/69
--- NOTE | 2016-06-17 14:50 | Discharge Summary ---
Date of Encounter: 06/15/16 Time of Encounter: 10:00 - Discharge Diagnosis (1) Chest pain Priority: Primary Status: Acute Comments: Patient was initially admitted on the for chest pain. He has not had chest pain today or yesterday. He will continue his home medications. Qualifiers: Chest pain type: unspecified Qualified Code(s): R07.9 - Chest pain, unspecified (2) Weakness Priority: Secondary Status: Chronic Comments: Patient began having facial numbness yesterday. He complained of weakness to left side. His head CT was negative and he was seen by neurology today. He is known by Dr. Garcia, who says the patient has been having these symptoms for nearly 50 years. Patient cannot have an MRI due to his pacemaker. We will continue his home medications of aspirin, statin, and his blood thinner. Patient has had a full cardiac workup during this admission which is largely unchanged from previous study in October 2015. (3) Congestive heart failure Priority: Secondary Status: Chronic Comments: Chronic continue home medications. Qualifiers: Congestive heart failure type: combined Congestive heart failure chronicity : chronic Qualified Code(s): I50.42 - Chronic combined systolic (congestive) and diastolic (congestive) heart failure (4) GERD (gastroesophageal reflux disease) Priority: Secondary Status: Chronic Comments: Patient denies any chest pain, he is nontender to the epigastric area today. He denies any feeling of burning in his chest. We will continue his home medications. Qualifiers: Esophagitis presence: without esophagitis Qualified Code(s): K21.9 - Gastro -esophageal reflux disease without esophagitis (5) CAD (coronary artery disease) Priority: Secondary Status: Chronic Comments: Chronic. Continue home medications. Qualifiers: Coronary Disease-Associated Artery/Lesion type: bypass graft [place] vs. transplanted heart: [place] heart Associated angina: without angina Qualified Code(s): I25.810 - Atherosclerosis of coronary artery bypass graft(s) without angina pectoris (6) Pacemaker Priority: Secondary Status: Chronic Comments: Chronic. Stable. Continue home medications. (7) HLD (hyperlipidemia) Priority: Secondary Status: Chronic Comments: Chronic. Continue home medications. Qualifiers: Hyperlipidemia type: unspecified Qualified Code(s): E78.5 - Hyperlipidemia , unspecified (8) Ischemic cardiomyopathy Priority: Secondary Status: Chronic Comments: Chronic. Patient had full cardiac cardiac workup. Is largely unchanged from prior workup in October 2015. Follow with family doctor and continue cardiac medications at home. (9) Paroxysmal a-fib Priority: Secondary Status: Chronic Comments: Patient is rate controlled and has a pacemaker. Continue anticoagulation at home. (10) DARLYN (acute kidney injury) Priority: Secondary Status: Acute Comments: This has resolved. Renal function labs are back within normal limits. Will discuss with patient he needs to stay hydrated, avoid NSAIDs, and follow-up with primary care physician for reevaluation. (11) DVT prophylaxis Priority: Secondary Status: Acute Comments: Patient is already anticoagulated and on Xarelto. Continue at home. - Discharge Medications Prescriptions: Isosorbide MONOnitrate (24 HR) [Imdur] 30 mg PO DAILY #30 tab.er.24h Home Medications: Aspirin Enteric Coated [Aspirin EC] 81 mg PO DAILY #30 tablet.dr 02/21/16 [Rx] Atorvastatin [Lipitor] 40 mg PO HS #30 tablet 02/21/16 [Rx] Furosemide [Lasix] 40 mg PO DAILY #30 tablet 02/21/16 [Rx] Metoprolol [Lopressor] 25 mg PO BID #60 tablet 02/21/16 [Rx] Nitroglycerin [Nitrostat] 0.4 mg SL AD PRN #10 tab.subl 02/21/16 [Rx] Amlodipine [Norvasc] 5 mg PO DAILY 06/13/16 [History] Lisinopril [Zestril] 20 mg PO DAILY 06/13/16 [History] Rivaroxaban [Xarelto] 20 mg PO DAILY 06/13/16 [History] Isosorbide MONOnitrate (24 HR) [Imdur] 30 mg PO DAILY #30 tab.er.24h 06/17/16 [ Rx] Allergies/Adverse Reactions: Allergies Oxycodone [From Percocet] Allergy (Verified 06/13/16 06:15) Hives tramadol Allergy (Verified 06/13/16 06:15) Hives Procedures/tests Complete & Pending: Procedures Performed prior 72 hours Category Date Time Status CT head/brain wo con [CT] Stat Cat Scan 06/16/16 15:22 Completed NM maye perf SPECT multi [NM] Routine Exams 06/15/16 07:00 Taken ECG 12 lead ECG [ECG] Routine Y 06/16/16 14:09 Completed SP pharm nuclear stress Routine Y 06/15/16 08:00 Completed Date of admission: 06/13/16 08:51 Primary care physician: PCP NO Consults: 06/14/16 07:52 Consult to Cardiology [CONS] Routine Comment: Consulting Provider: Amandeep Walker Reason for Consult: chest pain; hx chf, cabg. neg stress test last year Call Completed: Yes 06/16/16 15:24 Consult to Speech Therapy [CONS] Routine Comment: Evaluate, develop and implement POC Reason for Consult: pt states that he is having diff swallowing, facial numbness, R sided weakness. CT pending. Call Completed: No 06/16/16 17:44 Consult to Neurology [CONS] Routine Consulting Provider: [facility] Reason for Consult: R hand weakness, facial numbness. Time Notified: 17:44 Call Completed: Yes Discharging clinician: Melani Lala Anticipated date of discharge: 06/17/16 - Patient Status Disposition: Home, Self-Care Condition: Good Functional capacity at discharge: independent ambulation Overall status at discharge: patient is back to baseline - Discharge Instructions Follow Up With: Hannah Rojas, [employer] WORKER [Advanced Practice Nurse] - 06/24/16 10:10 am Seth Herrera DO [Partnered Physician] - 07/01/16 12:00 pm Additional Instructions: Follow-up cardiology in 2-3 weeks. Continue your home medications. Start Imdur 30 mg daily Return to the emergency department if you have any other problems or concerns or if her pain returns. - Diet and Activity Activity: resume usual activities as tolerated Diet: advance to your usual diet Hospital course: Mr. Pizarro is a 75 year old male who was admitted on the for chest pain where his pacemaker is located. He said it was left-sided sharp in nature and did not change with exertion or rest. There is no redness or drainage at the site. His chest x-ray was negative. His troponins were negative 4. CABG in 2002, EKG showed a paced rhythm. Stress test on the showed gated EF 39%. Also showed fixed perfusion defect in the LV apex consistent with small apical VT, no reversible ischemia. Imdur 30 mg by mouth was added by cardiology. He is to follow-up with cardiology in 1-2 weeks in the office. I attempted to discharge Mr. Pizarro yesterday, but he requested 1 more day inpatient. I told him that everything was negative and that he was ready for discharge and about an hour or 2 later he began having the same chest pain over again at that time EKG was unchanged from prior. Showed a paced rhythm. Approximately 3:30 yesterday he complained to the nurse of all over facial numbness and left-sided weakness. His neurological exam was negative, however, head CT was ordered as were labs and an Accu-Chek, all of which were negative as well. He was seen by neurology this morning. He is well known to neurology and has been having these symptoms "for years" and all of his workups are negative. Patient is stable to go home today. I will send prescription for Imdur and he can continue his home medications. He will be going home by [facility] transportation. - Time Spent with Patient Total time spent providing and/or coordinating discharge services: - Constitutional Vitals: Temp Pulse Resp BP Pulse Ox 98.1 F 67 14 113/69 96 06/17/16 14:35 06/17/16 14:35 06/17/16 14:35 06/17/16 14:35 06/17/16 14:35 General appearance: Present: A&O X 3, pleasant, no acute distress, answers questions appropriately Exam: [facility] - Head Head exam: Present: normal inspection - Eye Eye exam: Present: normal appearance, conjuntiva pink - ENT ENT exam: Present: mucous membranes moist, normal exam - Neck Neck exam general surgery: Present: normal inspection. Absent: lymphadenopathy , tenderness - Respiratory Respiratory exam: Present: CTAB. Absent: respiratory distress, rhonchi, stridor , wheezes, tachypnea - Cardiovascular Cardiovascular exam: Present: RRR, +S1, +S2. Absent: diastolic murmur, systolic murmur - GI/Abdominal GI/Abdominal exam: Present: normal bowel sounds. Absent: hepatomegaly, splenomegaly, tenderness - Extremities Exam Extremities exam: Present: normal capillary refill, normal inspection, warm, radial pulses palpable and symetrical. Absent: pedal edema, tenderness - Neurological Exam Neurological exam: Present: alert, oriented X3, strengths equal and symetr throughout. Absent: no focal deficits, pronater drift, facial droop, speech deficit
[2016-06-17] MEDS: Acetaminophen 325 MG TABLET PO PRN (15:20)
--- NOTE | 2016-06-17 16:47 | Electrocardiograph Report ---
[place] [id number] Test Date: 2016-06-16 Pat Name: Yue Pizarro Department: 113 Room: 3B43 Gender: M [employer]: : 1940 Requested By: Melani Lala Order Number: [id number] Reading MD: Terrance Maldonado MD Measurements Intervals [place] Rate: 72 P: 46 MN: 144 QRS: -52 QRSD: 198 T: 132 QT: 498 QTc: 523 Interpretive Statements ELECTRONIC VENTRICULAR PACEMAKER ABNORMAL RHYTHM ECG Electronically Signed On 06-17-2016 16:45:17 EDT by Terrance Maldonado MD
== END 2016-06-17 15:28 | disposition home or self-care (01) ==
LOC: 3BNU 06:14 → EMEROO 06:14 → 3BNU 09:23
PROVIDERS: ADMIT Nurse Practitioner Family; ATTEND Registered Nurse

== ENCOUNTER 2016-07-06 04:46 | Observation (INO) ==
[2016-07-06] MEDS ORDERED: Aspirin 81 MG TAB.CHEW PO ONE (04:50)
--- NOTE | 2016-07-06 04:51 | Emergency Department Note ---
Disposition Clinical Impression: Numbness Disposition: Admitted As Inpatient Condition: Fair General Adult HPI - General Chief complaint: ED Neuro Symptoms/Deficit Stated complaint: Numbness and pacemaker pain Time Seen by Provider: 07/06/16 04:49 - Related Data Home Medications Medication Instructions Recorded Confirmed Amlodipine [Norvasc] 5 mg PO DAILY 06/13/16 06/13/16 Lisinopril [Zestril] 20 mg PO DAILY 06/13/16 06/13/16 Rivaroxaban [Xarelto] 20 mg PO DAILY 06/13/16 06/13/16 Previous Rx's Medication Instructions Recorded Aspirin Enteric Coated [Aspirin EC] 81 mg PO DAILY #30 tablet.dr 02/21/16 Atorvastatin [Lipitor] 40 mg PO HS #30 tablet 02/21/16 Furosemide [Lasix] 40 mg PO DAILY #30 tablet 02/21/16 Metoprolol [Lopressor] 25 mg PO BID #60 tablet 02/21/16 Nitroglycerin [Nitrostat] 0.4 mg SL AD PRN #10 tab.subl 02/21/16 Isosorbide MONOnitrate (24 HR) 30 mg PO DAILY #30 tab.er.24h 06/17/16 [Imdur] Allergies Allergy/AdvReac Type Severity Reaction Status Date / Time Oxycodone [From Percocet] Allergy Hives Verified 06/13/16 06:15 tramadol Allergy Hives Verified 06/13/16 06:15 Past Medical History - Past Medical History Medical history: Reports: coronary artery disease, CVA, diabetes, hypertension, myocardial infarction, thyroid disease Surgical history: Reports: cholecystectomy, coronary bypass (CABG), pacemaker/ AICD Psychiatric history: Reports: no psych history - Social History Smoking Status: Former smoker Smokeless Tobacco Status: No Alcohol use: Reports: none Drug use: Reports: none Course Vital Signs Temperature 97.8 F 07/06/16 04:51 Pulse Rate 79 07/06/16 04:51 Respiratory Rate 18 07/06/16 04:51 Blood Pressure 160/88 07/06/16 04:51 O2 Sat by Pulse Oximetry 99 07/06/16 04:51 Temperature 97.8 F 07/06/16 04:51 Pulse Rate 66 07/06/16 06:05 Respiratory Rate 18 07/06/16 06:05 Blood Pressure 158/77 07/06/16 06:05 O2 Sat by Pulse Oximetry 99 07/06/16 04:51 Oxygen Delivery Oxygen Delivery Room Air Medical Decision Making - Lab Data Result diagrams: 07/06/16 05:25 07/06/16 05:00 Lab Results 07/06/16 07/06/16 07/06/16 Range/Units 04:53 05:00 05:00 WBC (4.3-11.1) K/mcL RBC (4.19-5.50) M/mcL Hgb (12.9-16.9) g/dL Hct (37.5-50.1) % MCV (83.0-100.0) fL MCH (28.0-33.3) pg MCHC (31.6-35.5) g/dL RDW (11.5-14.5) % Plt Count (140-400) K/mcL MPV (9.4-12.4) fL Immature Gran % (0-4) % Seg Neutrophils % % Lymphocytes % % Monocytes % % Eosinophils % % Basophils % % Neutrophils # (1.6-8.9) K/mcL Lymphocytes # (0.6-4.6) K/mcL Monocytes # (0.0-1.3) K/mcL Eosinophils # (0.0-0.6) K/mcL Basophils # (0.0-0.2) K/mcL PT 12.4 H (9.4-12.1) Seconds INR 1.1 APTT 32.2 (26.0-36.0) Seconds Sodium 140 (136-145) mEq/L Potassium 3.9 (3.5-4.5) mEq/L Chloride 109 (98-109) mEq/L Carbon Dioxide 19 (19-29) mEq/L BUN 17 (8-26) mg/dL Creatinine 1.11 (0.72-1.25) mg/dL Est GFR ( Amer) > 60 (> 60) Est GFR (Non-Af Amer) > 60 (> 60) BUN/Creatinine Ratio 15 (6-26) Glucose 174 H (70-99) mg/dL POC Glucose 168 H (58-89) Calculated Osmolality 296 (280-300) Calcium 9.8 (8.6-10.8) mg/dL Troponin I (0-0.03) ng/mL Ethyl Alcohol < 10 (0-10) mg/dL 04/18/17 04/18/17 Range/Units 05:00 05:25 WBC 8.9 (4.3-11.1) K/mcL RBC 4.99 (4.19-5.50) M/mcL Hgb 14.5 (12.9-16.9) g/dL Hct 43.0 (37.5-50.1) % MCV 86.2 (83.0-100.0) fL MCH 29.1 (28.0-33.3) pg MCHC 33.7 (31.6-35.5) g/dL RDW 12.5 (11.5-14.5) % Plt Count 144 (140-400) K/mcL MPV 11.3 (9.4-12.4) fL Immature Gran % 0.3 (0-4) % Seg Neutrophils % 65.5 % Lymphocytes % 23.1 % Monocytes % 7.8 % Eosinophils % 2.7 % Basophils % 0.6 % Neutrophils # 5.8 (1.6-8.9) K/mcL Lymphocytes # 2.0 (0.6-4.6) K/mcL Monocytes # 0.7 (0.0-1.3) K/mcL Eosinophils # 0.2 (0.0-0.6) K/mcL Basophils # 0.1 (0.0-0.2) K/mcL PT (9.4-12.1) Seconds INR APTT (26.0-36.0) Seconds Sodium (136-145) mEq/L Potassium (3.5-4.5) mEq/L Chloride (98-109) mEq/L Carbon Dioxide (19-29) mEq/L BUN (8-26) mg/dL Creatinine (0.72-1.25) mg/dL Est GFR ( Amer) (> 60) Est GFR (Non-Af Amer) (> 60) BUN/Creatinine Ratio (6-26) Glucose (70-99) mg/dL POC Glucose (58-89) Calculated Osmolality (280-300) Calcium (8.6-10.8) mg/dL Troponin I 0.02 (0-0.03) ng/mL Ethyl Alcohol (0-10) mg/dL Attestation Statement - Attestation Attestation: I examined this patient and my medical decision-making was reviewed with the PMO CONSULTANT/PA/Advanced Practice Nurse/Resident Physician. I agree with the documented findings, disposition and treatment plan as described except to the extent set forth below. Face to face time provided in conjunction with the resident physician Dr. Finley Patient presents via EMS from home. He woke up with symptoms at 3 AM. He complains of left-sided numbness and tingling. This involves his left upper and left lower extremity. Last known well was at 22:0 when he went to bed. He appears in no acute distress on exam. NIH 2
--- NOTE | 2016-07-06 04:53 | Emergency Department Note ---
Disposition Clinical Impression: Numbness Disposition: Admitted As Inpatient Condition: Fair Referrals: NO,PCP [Primary Care Provider] - Forms: ED Satisfaction Letter Time of Disposition: 05:43 Neuro HPI - General Chief Complaint: ED Neuro Symptoms/Deficit Stated Complaint: Numbness and pacemaker pain Time Seen by Provider: 07/06/16 04:49 Source: patient, EMS Mode of arrival: EMS Limitations: no limitations Nursing Notes Reviewed: Yes Vital Signs Reviewed: Yes - History of Present Illness HPI Narrative: Patient presents to the ED via EMS with the chief complaint of left sided numbness. Patient went to bed at 2200 last night and woke up at 0300 and states that his left side of his face felt numb. Also involves his left upper and left lower extremity. States he has had symptoms like this previously but is unsure what that time. Does complain of some pain around his pacemaker, but otherwise denies any other symptoms. No headache. Does state that he has some mild blurry vision but thinks it is because he woke up, so early. He is on an aspirin daily. States his pacemaker is for atrial fibrillation. Also has a history of insulin-dependent diabetes, coronary artery disease. - Related Data Home Medications: Home Medications Medication Instructions Recorded Confirmed Amlodipine [Norvasc] 5 mg PO DAILY 06/13/16 06/13/16 Lisinopril [Zestril] 20 mg PO DAILY 06/13/16 06/13/16 Rivaroxaban [Xarelto] 20 mg PO DAILY 06/13/16 06/13/16 Previous Rx's Medication Instructions Recorded Aspirin Enteric Coated [Aspirin EC] 81 mg PO DAILY #30 tablet. 02/21/16 Atorvastatin [Lipitor] 40 mg PO HS #30 tablet 02/21/16 Furosemide [Lasix] 40 mg PO DAILY #30 tablet 02/21/16 Metoprolol [Lopressor] 25 mg PO BID #60 tablet 02/21/16 Nitroglycerin [Nitrostat] 0.4 mg SL AD PRN #10 tab.subl 02/21/16 Isosorbide MONOnitrate (24 HR) 30 mg PO DAILY #30 tab.er.24h 06/17/16 [Imdur] Allergies/Adverse Reactions: Allergies Allergy/AdvReac Type Severity Reaction Status Date / Time Oxycodone [From Percocet] Allergy Hives Verified 06/13/16 06:15 tramadol Allergy Hives Verified 06/13/16 06:15 All systems ED: reviewed and negative except as stated. Eyes: Reports: vision change (slight "fuzzy" vision ) ENT ED: Denies: dysphagia Cardiovascular: Reports: chest pain (around pacemaker). Denies: palpitations Respiratory: Denies: cough, dyspnea Gastrointestinal: Denies: abdominal pain, nausea, vomiting Musculoskeletal: Denies: back pain, neck pain Integumentary: Denies: rash Neurological: Reports: numbness. Denies: headache, weakness, paresthesias, confusion, abnormal gait, vertigo Endocrine: Denies: fatigue Past Medical History - Past Medical History Attestation: Yes The following information was validated with the patient. Source: patient, old records reviewed Medical history: Reports: coronary artery disease, CVA, diabetes, hypertension, myocardial infarction, thyroid disease Surgical history: Reports: cholecystectomy, coronary bypass (CABG), pacemaker/ AICD Psychiatric history: Reports: no psych history - Social History Smoking Status: Former smoker Smokeless Tobacco Status: No Alcohol use: Reports: none Drug use: Reports: none Physical Exam - General Limitations: no limitations General appearance: alert, in no apparent distress - Head Head exam: atraumatic, normocephalic, normal inspection - Eye Eye exam: Present: normal appearance, PERRL, EOMI - ENT ENT exam: normal exam, normal oropharynx, mucous membranes moist - Neck Neck exam: Present: normal inspection, full ROM, trachea midline - Chest Chest inspection: Present: normal inspection, symmetric chest wall rise - Respiratory Respiratory exam: Present: normal lung sounds bilaterally - Cardiovascular Cardiovascular exam: Present: regular rate, normal rhythm, normal heart sounds - Abdominal Exam Abdominal exam: Present: soft, Non-Tender. Absent: tenderness, distention, guarding, rebound, rigidity - Extremities Exam Extremities exam: Present: normal inspection, full ROM. Absent: tenderness, pedal edema - Neurological Exam Neurological exam: Present: alert, oriented X3 - Expanded Neurological Exam Patient oriented to: Present: person, place, time Speech: Present: fluid speech Cranial nerves: EOM function (II, III, IV, ): Normal, facial sensation (V): Abnormal Left (Slightly dull but still is able to feel), facial palsy (VII): Normal, spinal accessory function (XI): Normal, tongue deviation (XII): Normal Cerebellar function: finger to nose: Normal Motor strength - LUE: 5/5 Motor strength - RUE: 5/5 Motor strength - LLE: 5/5 Motor strength - RLE: 5/5 Upper motor neuron exam: yovana neglect: Absent bilaterally, pronator drift: Absent bilaterally Sensory exam upper extremity: light touch: Abnormal Left (Slightly decreased compared to right) Sensory exam lower extremity: light touch: Abnormal Left (Lightly decreased compared to right) Coma Scale Eye Opening: Spontaneous Coma Scale Motor Response: Obeys Commands Coma Scale Verbal Response: Oriented Coma Scale Total: 15 - Psychiatric Psychiatric exam: Present: normal affect, normal mood - Skin Skin exam: Present: warm, dry, intact, normal color Course Course Narrative: 75 -year-old male presenting just under 7 hours with the chief complaint of left sided decreased sensation. Also having some "fuzzy" vision. Visual carrero are intact. Mild decrease in sensation on the left face, left upper extremity and left lower extremity. Patient is still within the 8 hour window. Stroke alert called. - Reevaluation(s) Reevaluation #1: Labs and CT unremarkable. Patient still having symptoms. Will admit for MRI. Patient agreeable. - Consultations Consultation #1: I spoke with the [facility] neurologists, Dr. Sen. Due to mild symptoms and last known well, and he did not recommend thrombolytics. Also, spoke with the neuroradiolgist, Dr. Devine. He did not see any acute ischemia or intracerebral hemorrhage. Did state that due to the patient's symptoms, a small lacunar infarct would be difficult to exclude. We will continue the workup and admit the patient to the medicine service for MRI and neurology consult. Time: 05:09 Vital Signs Temperature 97.8 F 07/06/16 04:51 Pulse Rate 79 07/06/16 04:51 Respiratory Rate 18 07/06/16 04:51 Blood Pressure 160/88 07/06/16 04:51 O2 Sat by Pulse Oximetry 99 07/06/16 04:51 Temperature 97.8 F 07/06/16 04:51 Pulse Rate 70 07/06/16 05:37 Respiratory Rate 18 07/06/16 05:37 Blood Pressure 145/77 07/06/16 05:37 O2 Sat by Pulse Oximetry 99 07/06/16 04:51 Oxygen Delivery Oxygen Delivery Room Air Neuro Symptoms/Deficit - Medical Records Medical records reviewed: Yes I reviewed the patient's medical records. - Lab Data Lab results reviewed: Yes I reviewed the patient's lab results. Result diagrams: 07/06/16 05:25 07/06/16 05:00 Lab Results 07/06/16 07/06/16 07/06/16 Range/Units 04:53 05:00 05:00 WBC (4.3-11.1) K/mcL RBC (4.19-5.50) M/mcL Hgb (12.9-16.9) g/dL Hct (37.5-50.1) % MCV (83.0-100.0) fL MCH (28.0-33.3) pg MCHC (31.6-35.5) g/dL RDW (11.5-14.5) % Plt Count (140-400) K/mcL MPV (9.4-12.4) fL Immature Gran % (0-4) % Seg Neutrophils % % Lymphocytes % % Monocytes % % Eosinophils % % Basophils % % Neutrophils # (1.6-8.9) K/mcL Lymphocytes # (0.6-4.6) K/mcL Monocytes # (0.0-1.3) K/mcL Eosinophils # (0.0-0.6) K/mcL Basophils # (0.0-0.2) K/mcL PT 12.4 H (9.4-12.1) Seconds INR 1.1 APTT 32.2 (26.0-36.0) Seconds Sodium 140 (136-145) mEq/L Potassium 3.9 (3.5-4.5) mEq/L Chloride 109 (98-109) mEq/L Carbon Dioxide 19 (19-29) mEq/L BUN 17 (8-26) mg/dL Creatinine 1.11 (0.72-1.25) mg/dL Est GFR ( Amer) > 60 (> 60) Est GFR (Non-Af Amer) > 60 (> 60) BUN/Creatinine Ratio 15 (6-26) Glucose 174 H (70-99) mg/dL POC Glucose 168 H (58-89) Calculated Osmolality 296 (280-300) Calcium 9.8 (8.6-10.8) mg/dL Troponin I (0-0.03) ng/mL Ethyl Alcohol < 10 (0-10) mg/dL 07/06/16 07/06/16 Range/Units 05:00 05:25 WBC 8.9 (4.3-11.1) K/mcL RBC 4.99 (4.19-5.50) M/mcL Hgb 14.5 (12.9-16.9) g/dL Hct 43.0 (37.5-50.1) % MCV 86.2 (83.0-100.0) fL MCH 29.1 (28.0-33.3) pg MCHC 33.7 (31.6-35.5) g/dL RDW 12.5 (11.5-14.5) % Plt Count 144 (140-400) K/mcL MPV 11.3 (9.4-12.4) fL Immature Gran % 0.3 (0-4) % Seg Neutrophils % 65.5 % Lymphocytes % 23.1 % Monocytes % 7.8 % Eosinophils % 2.7 % Basophils % 0.6 % Neutrophils # 5.8 (1.6-8.9) K/mcL Lymphocytes # 2.0 (0.6-4.6) K/mcL Monocytes # 0.7 (0.0-1.3) K/mcL Eosinophils # 0.2 (0.0-0.6) K/mcL Basophils # 0.1 (0.0-0.2) K/mcL PT (9.4-12.1) Seconds INR APTT (26.0-36.0) Seconds Sodium (136-145) mEq/L Potassium (3.5-4.5) mEq/L Chloride (98-109) mEq/L Carbon Dioxide (19-29) mEq/L BUN (8-26) mg/dL Creatinine (0.72-1.25) mg/dL Est GFR ( Amer) (> 60) Est GFR (Non-Af Amer) (> 60) BUN/Creatinine Ratio (6-26) Glucose (70-99) mg/dL POC Glucose (58-89) Calculated Osmolality (280-300) Calcium (8.6-10.8) mg/dL Troponin I 0.02 (0-0.03) ng/mL Ethyl Alcohol (0-10) mg/dL - Radiology Data Radiology results reviewed: Yes I reviewed the patient's radiology results. - EKG Data EKG attestation: Yes I reviewed and interpreted this EKG. EKG results narrative: History, rate 66, ME interval 139, QRS 207, unchanged from previous. NIH Stroke Scale - Level of Consciousness LOC: Alert - LOC Questions LOC Questions: Answers both correctly - LOC Commands LOC Commands: Performs both correctly - Best Gaze Best Gaze: Normal - Visual Visual: No visual loss - Facial Palsy Facial Palsy: Minor asymmetry on smiling, flattened nasolabial fold - Motor Arms Motor Arm-Left: No drift for 10 seconds Motor Arm-Right: No drift for 10 seconds - Motor Legs Motor Leg-Left: No drift for 5 seconds Motor Leg-Right: No drift for 5 seconds - Limb Ataxia Limb Ataxia: Absent of affected limb too weak to perform exam - Sensory Sensory: Mild to moderate loss, "not as sharp" - Best Language Best Language: No aphasia - Dysarthria Dysarthria: Normal - Extinction and Inattention Extinction and Inattention: Normal - NIHSS Total Score NIHSS Total Score: 2 TPA Checklist - Source Information Source: Family - Eligibilty for IV tPA 1. LKW equal to or less than 4.5 hours be before treatment: No 2. Clinical diagnosis of ischemic stroke causing deficit: No 3. Age 18 years or older: Yes - LKW: 3-4.5 hrs Add. Contraindications Patient/family understanding: The patient/family members have been counseled and understood the risk, benefit , and alternatives of treatment. S.B.A.R. - S.B.A.R. Situation: Demographics, MOA Background: Presenting Complaint, Relevant PMH, Meds, & Allergies Assessment: Vital Signs, Course and respsone to treatment, Exam Concerns, Patient/Family Expectation, Pertinant Lab Results, Outstanding Labs Recommendation: Recommendation based on pending studies, treatments, or consults S.B.A.R. Report Given to: Dr. Salas
[2016-07-06 05:18] LABS: INR 1.1
[2016-07-06 05:21] LABS: Activated Partial Thrombo Time 32.2 Seconds (26.0-36.0)
[2016-07-06 05:25] LABS: Prothrombin Time 12.4 Seconds (9.4-12.1)
[2016-07-06 05:28] LABS: BUN/Creatinine Ratio 15 (6-26); Blood Urea Nitrogen 17 mg/dL (8-26); Calcium 9.8 mg/dL (8.6-10.8); Carbon Dioxide 19 mEq/L (19-29); Chloride 109 mEq/L (98-109); Ethanol < 10 mg/dL (0-10); Glucose 174 mg/dL (70-99); Osmolality,Calculated 296 (280-300); Potassium 3.9 mEq/L (3.5-4.5); Sodium 140 mEq/L (136-145); eGFR For African Americans > 60 (> 60); eGFR For Non-African Americans > 60 (> 60)
[2016-07-06 05:34] LABS: Basophils # 0.1 K/mcL (0.0-0.2); Basophils % 0.6 %; Eosinophils # 0.2 K/mcL (0.0-0.6); Eosinophils % 2.7 %; Hemoglobin 14.5 g/dL (12.9-16.9); Immature Granulocytes % 0.3 % (0-4); Lymphocytes % 23.1 %; Mean Corpuscular HGB Conc 33.7 g/dL (31.6-35.5); Mean Corpuscular Hemoglobin 29.1 pg (28.0-33.3); Mean Corpuscular Volume 86.2 fL (83.0-100.0); Mean Platelet Volume 11.3 fL (9.4-12.4); Monocytes # 0.7 K/mcL (0.0-1.3); Monocytes % 7.8 %; Neutrophils # 5.8 K/mcL (1.6-8.9); Red Blood Count 4.99 M/mcL (4.19-5.50); Red Cell Distribution Width 12.5 % (11.5-14.5); Segmented Neutrophils % 65.5 %
[2016-07-06 05:36] LABS: Platelet Count 144 K/mcL (140-400)
[2016-07-06] MEDS ORDERED: Naloxone 0.4 MG/ML INJ IVP PRN (06:05)
[2016-07-06] MEDS ORDERED: *HR* Morphine 2 MG/ML SYRINGE IVP PRN (06:05)
[2016-07-06] MEDS ORDERED: Ondansetron 4 MG/2 ML VIAL IVP PRN (06:05)
[2016-07-06 06:06] LABS: Bilirubin,Urine Negative (Negative); Blood,Urine Negative (Negative); Clarity,Urine Clear (Clear); Color,Urine Yellow (Yellow); Glucose,Urine (UA) >=1000 mg/dL (Normal); Ketones,Urine Negative (Negative); Leukocyte Esterase,Urine Negative (Negative); Nitrite,Urine Negative (Negative); Protein,Urine 100 mg/dL (Neg-Trace); Specific Gravity,Urine 1.023 (1.010-1.025); Urobilinogen,Urine Normal (Normal)
[2016-07-06 06:08] LABS: Bacteria,Urine None Seen per hpf (None-Few); Hyaline Casts,Urine None Seen per lpf (None-Few); RBC,Urine 0-3 per hpf (0-3); Squamous Epithelial Cell,Urine Few per lpf (None-Few); WBC,Urine 0-3 per hpf (0-3)
[2016-07-06] MEDS ORDERED: Dextrose Gel 15 GM PO PRN ×2 (06:10)
[2016-07-06] MEDS ORDERED: D5% in Water 1,000 ML IVC PRN (06:10)
[2016-07-06] MEDS ORDERED: *HR* Dextrose 50 % in Water (Syg) 50 ML SYRINGE IVP PRN (06:10)
--- NOTE | 2016-07-06 06:13 | Internal Med History&Physical ---
Date of Encounter: 07/06/16 Time of Encounter: 06:11 Assessment and Plan (1) Numbness Current visit: Yes Status: Acute Possible lacunar acute ischemic CVA, persistent numbness in the left side of his face and left upper and lower extremity Neurochecks, neurology consult Order an MRI, the [facility] as he has a pacemaker Continue aspirin and Xarelto Omeprazole for GI prophylaxis and Xarelto for DVT prophylaxis. Patient will be admitted for observation. Full code. Time spent on this admission 40 minutes. High-risk for CVA (2) CAD (coronary artery disease) Current visit: No Status: Chronic Continue aspirin Qualifiers: Coronary Disease-Associated Artery/Lesion type: bypass graft [place] vs. transplanted heart: [place] heart Associated angina: without angina Qualified Code(s): I25.810 - Atherosclerosis of coronary artery bypass graft(s) without angina pectoris (3) Pacemaker Current visit: No Status: Chronic Pacemaker and AICD due to cardiomyopathy (4) History of CHF (congestive heart failure) Current visit: No Status: Chronic Ejection fraction of 35-40% No exacerbation (5) HTN (hypertension) Current visit: No Status: Chronic Permissive hypertension due to possible CVA Qualifiers: Hypertension type: essential hypertension Qualified Code(s): I10 - Essential (primary) hypertension (6) HLD (hyperlipidemia) Current visit: No Status: Chronic Qualifiers: Hyperlipidemia type: unspecified Qualified Code(s): E78.5 - Hyperlipidemia , unspecified (7) DM2 (diabetes mellitus, type 2) Current visit: No Status: Chronic Continue insulin sliding scale only Qualifiers: Diabetes mellitus complication status: with circulatory complication Diabetes mellitus complication detail: with other circulatory complications Diabetes mellitus superintendent container terminal insulin use: without shelter use Qualified Code( s): E11.59 - Type 2 diabetes mellitus with other circulatory complications (8) Paroxysmal a-fib Current visit: No Status: Chronic Continue Xarelto and metoprolol Internal Medicine - H&P: HPI Chief complaint: Left sided numbness Admitted From: Emergency Dept History of present illness: Mr. 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 Last time he was feeling normal was at 11 PM when he went to bed. He is still complaining of left facial numbness tingling on her upper and lower extremities , numbness persisting all those areas. Complaining of minimal weakness in the left hand fingers, also blurry vision. They are physician contacted the [facility] neurology department, no TPA was recommended. Stroke alert was called. Patient's blood pressure is 160/88 glucose 174, he complains of mild shortness of breath. 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%) Psychiatric history: no psych history - Past Surgical History Surgical History: cholecystectomy, coronary bypass (CABG), pacemaker/AICD - Social History Smoking Status: Former smoker Smokeless Tobacco Status: No Alcohol use: none Drug use: none - Family History Grandfather Living Status: Hx Family Cardiac Disorders: Yes Mother Living Status: Father Adopted: No Living Status: - Additional Family History Additional family history: Denies any family history Internal Medicine - H&P: Meds Aspirin Enteric Coated [Aspirin EC] 81 mg PO DAILY #30 tablet.dr 02/21/16 [Rx] Atorvastatin [Lipitor] 40 mg PO HS #30 tablet 02/21/16 [Rx] Furosemide [Lasix] 40 mg PO DAILY #30 tablet 02/21/16 [Rx] Metoprolol [Lopressor] 25 mg PO BID #60 tablet 02/21/16 [Rx] Nitroglycerin [Nitrostat] 0.4 mg SL AD PRN #10 tab.subl 02/21/16 [Rx] Amlodipine [Norvasc] 5 mg PO DAILY 06/13/16 [History] Lisinopril [Zestril] 20 mg PO DAILY 06/13/16 [History] Rivaroxaban [Xarelto] 20 mg PO DAILY 06/13/16 [History] Isosorbide MONOnitrate (24 HR) [Imdur] 30 mg PO DAILY #30 tab.er.24h 06/17/16 [ Rx] Allergies Oxycodone [From Percocet] Allergy (Verified 06/13/16 06:15) Hives tramadol Allergy (Verified 06/13/16 06:15) Hives All Systems PM: A 10-system review of systems was performed and is negative for pertinent findings except as documented above in the HPI. Review of systems: Numbness persists, shortness of breath, denies any chest pain, no abdominal pain , no fevers. Other systems out of the ten reviewed were negative - Constitutional Vitals: Temp Pulse Resp BP Pulse Ox 97.8 F 66 18 158/77 99 07/06/16 04:51 07/06/16 06:05 07/06/16 06:05 07/06/16 06:05 07/06/16 04:51 General appearance: Present: A&O X 3 - Head Head exam: Present: atraumatic, normocephalic - Eye Eye exam: Present: PERRL, conjuntiva pink, sclera anicteric Pupils: Present: PERRL - Neck Neck exam general surgery: Present: supple, trachea midline. Absent: lymphadenopathy - Respiratory Respiratory exam: Present: CTAB. Absent: accessory muscle use, rales, rhonchi, wheezes - Cardiovascular Cardiovascular exam: Present: RRR, +S1, +S2. Absent: diastolic murmur, gallop, rubs, systolic murmur - GI/Abdominal GI/Abdominal exam: Present: normal bowel sounds, soft, no peritoneal signs. Absent: distended, tenderness - Extremities Exam Extremities exam: Present: warm, radial pulses palpable and symetrical. Absent : calf tenderness, cyanotic, pedal edema - Neurological Exam Neurological exam: Present: CN II-XII intact, oriented X3, no focal deficits. Absent: pronater drift, facial droop, speech deficit Additional comments: Complains of persistent left facial numbness also numbness in the left upper entire left lower extremity, no weakness evidenced - Skin Skin exam: Present: dry, intact Internal Med - H&P Results - Labs CBC & Chem 7: 07/06/16 05:25 07/06/16 05:00 Labs: Urine 07/06/16 Range/Units 05:55 Urine Color Yellow (Yellow) Urine Clarity Clear (Clear) Urine pH 7.0 (5.0-8.0) pH Units Ur Specific [place] 1.023 (1.010-1.025) Urine Protein 100 H (Neg-Trace) mg/dL Urine Glucose (UA) >=1000 H (Normal) mg/dL
[2016-07-06] MEDS ORDERED: 0.9 % Sodium Chloride 1,000 ML IVC SCH (06:15)
[2016-07-06 06:48] LABS: Chol/HDL Ratio 2.8 (0-4.9); Cholesterol 110 mg/dL (< 200); HDL Cholesterol 39 mg/dL (40-59); LDL Cholesterol,Calculated 40 mg/dL (0-99); Triglycerides 153 mg/dL (< 150)
--- NOTE | 2016-07-06 07:15 | Electrocardiograph Report ---
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
--- NOTE | 2016-07-06 08:41 | Neurology - Consult Note ---
<Pelon Ott - Last Filed: 07/06/16 08:56> Date of Encounter: 07/06/16 Time of Encounter: 08:41 Assessment and Plan (1) Intermittent paresthesia of left hand and foot Current Visit: No Status: Chronic Patient has this same symptoms for the last 50 years intermittently after the first stroke, his CT scan of the head this time shows no acute process, echo from 3 weeks ago showed left ventricular ejection fraction 35-40%, moderate global left ventricular systolic dysfunction, mild left ventricular diastolic dysfunction, no pulmonary hypertension, no significant valvular dysfunction, bicuspid aortic valve, carotid ultrasound October 2015 showed bilateral nonstenotic plaque, patient takes aspirin and Xarelto at home, brain MRI cannot be obtained due to history of pacemaker placement, lipid panel from this morning reviewed, patient is already on statin, patient denies any underlying psychiatric issues, no further testing are indicated at this time, recommend continuation of risk factors modifications and current home medications of aspirin, statin and Xarelto. History of Present Illness Chief complaint: Left-sided tingling/numbness HPI: Mr. Pizarro is a 75 year old male with history of stroke 50 years ago, paroxysmal atrial fibrillation on xarelto, diabetes type 2, ischemic cardiomyopathy and coronary artery disease who presented to the ER with chief complaint of left-sided tingling/numbness which started last night, patient has this symptoms for the last 50 years on/off after he had a stroke. Patient was seen by neurology service end of May this year for same symptoms in the previous admission, all the workup had been negative thus far. This time head CT scan without contrast showed no acute process, neurology was called from [facility] for stroke alert and no TPA was recommended as he takes aspirin and xarelto as home medications. Patient states that tingling/numbness symptom is same compared to 50 years ago and it is intermittent, nothing worse, no slurred speech or facial droop, he also has slight weakness on the left upper/lower extremities, but denies urinary/bowel incontinence. Past Med Surg Social Fam HX - Past Medical History Medical history: coronary artery disease, CVA, diabetes, hypertension, myocardial infarction, thyroid disease Psychiatric history: no psych history - Past Surgical History Surgical History: cholecystectomy, coronary bypass (CABG), pacemaker/AICD - Social History Smoking Status: Former smoker Smokeless Tobacco Status: No Alcohol use: none Drug use: none - Family History Grandfather Living Status: Hx Family Cardiac Disorders: Yes Mother Living Status: Father Adopted: No Living Status: Medications and Allergies Aspirin Enteric Coated [Aspirin EC] 81 mg PO DAILY #30 tablet.dr 02/21/16 [Rx] Atorvastatin [Lipitor] 40 mg PO HS #30 tablet 02/21/16 [Rx] Furosemide [Lasix] 40 mg PO DAILY #30 tablet 02/21/16 [Rx] Metoprolol [Lopressor] 25 mg PO BID #60 tablet 02/21/16 [Rx] Nitroglycerin [Nitrostat] 0.4 mg SL AD PRN #10 tab.subl 02/21/16 [Rx] Amlodipine [Norvasc] 5 mg PO DAILY 06/13/16 [History] Lisinopril [Zestril] 20 mg PO DAILY 06/13/16 [History] Rivaroxaban [Xarelto] 20 mg PO DAILY 06/13/16 [History] Isosorbide MONOnitrate (24 HR) [Imdur] 30 mg PO DAILY #30 tab.er.24h 06/17/16 [ Rx] Allergies Oxycodone [From Percocet] Allergy (Verified 06/13/16 06:15) Hives tramadol Allergy (Verified 06/13/16 06:15) Hives All Systems: A 10-system review of systems was performed and is negative for pertinent findings except as documented above in the HPI. Review of Systems: He admits left-sided tingling/numbness which started last night, same symptoms compared to 50 years ago and it is intermittent, nothing worse, no slurred speech or facial droop, he also has slight weakness on the left upper/lower extremities, but denies urinary/bowel incontinence. He denies fever, chills, change in vision, headache or neck pain. Physical Examination - Vital Signs Vital Signs: Initial Vital Signs Temp Pulse Resp BP Pulse Ox 97.8 F 79 18 160/88 99 07/06/16 04:51 07/06/16 04:51 07/06/16 04:51 07/06/16 04:51 07/06/16 04:51 - Constitutional General appearance: comfortable - Neurologic Sensorimotor examination: other (Sensation is weaker on the left side, tingling/ numbness on the left side of the face down to foot) Detailed motor examination: grossly full strength in all extremities, full strength in all major muscle groups Motor examination - right side: 5/5: deltoids, biceps, triceps, wrist flexion, wrist extension, fermenter helper, hip flexors, quadriceps, plantarflexion Motor examination - left side: 5/5: deltoids, biceps, triceps, wrist flexion, wrist extension, hip flexors, fermenter helper, quadriceps, plantarflexion Detailed sensory examination: intact Reflex and gait examination: intact Reflexes: Biceps: 2+, Triceps: 2+, Brachioradialis: 2+, Patella: 2+, Achilles: 2 + Mental Status Examination: awake, alert, oriented to person, oriented to place, oriented to time, follows commands appropriately, answers questions appropriately, no agnosia, no aphasia, no aproxia Cranial nerve examination: PERRL, EOMI, visual carrero intact, sensory to face intact, no facial asymmetry is present, no dysarthria, tongue protrudes midline , no atrophy or facial fasiculations present Cerebellar examination: no dysmetria, no truncal ataxia, no difficulty with rapid alternating movements Results - Laboratory Findings CBC and BMP: 07/06/16 05:25 07/06/16 05:00 Abnormal lab findings: Abnormal lab results PT 12.4 Seconds (9.4-12.1) H 07/06/16 05:00 Glucose 174 mg/dL (70-99) H 07/06/16 05:00 POC Glucose 164 (58-89) H 07/06/16 08:08 Triglycerides 153 mg/dL (< 150) H 07/06/16 05:00 VLDL Cholesterol, Calc 31 mg/dL (< 31) H 07/06/16 05:00 HDL Cholesterol 39 mg/dL (40-59) L 07/06/16 05:00 Urine Protein 100 mg/dL (Neg-Trace) H 07/06/16 05:55 Urine Glucose (UA) >=1000 mg/dL (Normal) H 07/06/16 05:55 Consult Discharge Plan - Plan Referrals: Hannah Rojas, DIVING INSTRUCTOR [Primary Care Provider] - 07/13/16 11:00 am <Miller Penn - Last Filed: 07/06/16 16:48> Date of Encounter: 07/06/16 History of Present Illness HPI: Mr. Pizarro is a 75 year old male All Systems: A 10-system review of systems was performed and is negative for pertinent findings except as documented above in the HPI. Physical Examination - Vital Signs Vital Signs: Initial Vital Signs Temp Pulse Resp BP Pulse Ox 97.8 F 79 18 160/88 99 07/06/16 04:51 07/06/16 04:51 07/06/16 04:51 07/06/16 04:51 07/06/16 04:51 Results - Laboratory Findings CBC and BMP: 07/06/16 05:25 07/06/16 05:00 Abnormal lab findings: Abnormal lab results PT 12.4 Seconds (9.4-12.1) H 07/06/16 05:00 Glucose 174 mg/dL (70-99) H 07/06/16 05:00 POC Glucose 240 (58-89) H 07/06/16 16:24 Triglycerides 153 mg/dL (< 150) H 07/06/16 05:00 VLDL Cholesterol, Calc 31 mg/dL (< 31) H 07/06/16 05:00 HDL Cholesterol 39 mg/dL (40-59) L 07/06/16 05:00 Urine Protein 100 mg/dL (Neg-Trace) H 07/06/16 05:55 Urine Glucose (UA) >=1000 mg/dL (Normal) H 07/06/16 05:55
[2016-07-06] MEDS ORDERED: amLODIPine 5 MG TABLET PO SCH ×2 (09:00→18:56)
[2016-07-06] MEDS: Insulin LISPRO 300 UNITS/3 ML VIAL SQ SCH ×3 (09:07→16:26)
[2016-07-06] MEDS: *HR* Rivaroxaban 10 MG TABLET PO SCH (09:08)
[2016-07-06] MEDS: Aspirin Enteric Coated 81 MG Tablet PO SCH (09:08)
[2016-07-06] MEDS: Lisinopril 20 MG TABLET PO SCH (09:10)
[2016-07-06] MEDS: Furosemide 40 MG TABLET PO SCH (09:10)
[2016-07-06] MEDS: Isosorbide MONOnitrate (24 HR) 30 MG TAB.ER.24H PO SCH (09:10)
[2016-07-06] MEDS: Acetaminophen 325 MG TABLET PO PRN ×2 (10:31→16:19)
--- NOTE | 2016-07-06 16:47 | Electrocardiograph Report ---
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
--- NOTE | 2016-07-06 18:55 | Event Note ---
Date of Encounter: 07/06/16 Time of Encounter: 17:00 Patient seen and examined. On examination, patient sitting upright in bed watching television. He currently complains of left-sided chest pain. He states that his left third fourth and fifth digits are still numb. He also states he has some numbness on his left foot. He also states he has been coughing but it has been nonproductive. He denies shortness of breath above his norm. He currently states that he has had decreased by mouth intake secondary to mild GERD symptoms. Chest x-ray negative. Head CT negative. Urinalysis negative. Hypertension noted. At home, patient is on metoprolol 25 mg twice a day, lisinopril 20 mg daily, Imdur 30 mg daily, furosemide 40 mg daily, and amlodipine 5 mg daily. He is euvolemic on examination, will increase his amlodipine. Troponins negative 2, low suspicion for ACS. Neurology on board, recommending continuing aspirin, statin, Xarelto and have cleared him for outpatient follow-up. Unable to obtain an MRI as his pacemaker is not compatible with an MRI. We will likely repeat head CT tomorrow given that he states he is still symptomatic. Purposeful movement of extremities 4 noted. No focal neurological deficits present on examination. Likely discharge tomorrow pending clinical outcomes. ITS Impressions Chest X-Ray 07/06/16 04:50 IMPRESSION: No active cardiopulmonary disease. D/ / Manjeet Chen MD / Manjeet Chen MD Interpreting Provider: Manjeet Chen MD Head CT 07/06/16 04:50 IMPRESSION: Small vessel chronic ischemic changes with no acute hemorrhage or definite evidence for acute ischemia. Small foci of acute ischemia cannot be excluded. Stroke alert results were called by Dr. Jasper Devine MD to Calvin Finley on 07/06/2016 at 05:08. D/ / Jasper Devine MD / Jasper Devine MD Interpreting Provider: Jasper Devine MD
[2016-07-07] MEDS: Acetaminophen 325 MG TABLET PO PRN ×2 (00:41→07:46)
[2016-07-07 05:25] LABS: BUN/Creatinine Ratio 14 (6-26); Blood Urea Nitrogen 16 mg/dL (8-26); Calcium 9.6 mg/dL (8.6-10.8); Carbon Dioxide 22 mEq/L (19-29); Chloride 105 mEq/L (98-109); Glucose 180 mg/dL (70-99); Osmolality,Calculated 288 (280-300); Potassium 3.9 mEq/L (3.5-4.5); Sodium 136 mEq/L (136-145); eGFR For African Americans > 60 (> 60); eGFR For Non-African Americans > 60 (> 60)
[2016-07-07 07:41] VITALS: BP 159/76
[2016-07-07] MEDS: Aspirin Enteric Coated 81 MG Tablet PO SCH (07:46)
[2016-07-07] MEDS: *HR* Rivaroxaban 10 MG TABLET PO SCH (07:46)
[2016-07-07] MEDS: Lisinopril 20 MG TABLET PO SCH (07:46)
[2016-07-07] MEDS: Isosorbide MONOnitrate (24 HR) 30 MG TAB.ER.24H PO SCH (07:46)
[2016-07-07] MEDS: Furosemide 40 MG TABLET PO SCH (07:46)
[2016-07-07] MEDS: Insulin LISPRO 300 UNITS/3 ML VIAL SQ SCH (07:47)
--- NOTE | 2016-07-07 09:24 | Discharge Summary ---
Date of Encounter: 07/07/16 Time of Encounter: 09:21 - Discharge Diagnosis (1) Numbness Priority: Primary Status: Acute (2) DM2 (diabetes mellitus, type 2) Priority: Secondary Status: Chronic Qualifiers: Diabetes mellitus complication status: with circulatory complication Diabetes mellitus complication detail: with other circulatory complications Diabetes mellitus terminologist insulin use: without terminologist use Qualified Code( s): E11.59 - Type 2 diabetes mellitus with other circulatory complications (3) HTN (hypertension) Priority: Secondary Status: Chronic Qualifiers: Hypertension type: essential hypertension Qualified Code(s): I10 - Essential (primary) hypertension (4) History of smoking Priority: Secondary Status: Chronic (5) Pacemaker Priority: Secondary Status: Chronic (6) Paroxysmal a-fib Priority: Secondary Status: Chronic - Discharge Medications Home Medications: Aspirin Enteric Coated [Aspirin EC] 81 mg PO DAILY #30 tablet.dr 02/21/16 [Rx] Atorvastatin [Lipitor] 40 mg PO HS #30 tablet 02/21/16 [Rx] Furosemide [Lasix] 40 mg PO DAILY #30 tablet 02/21/16 [Rx] Metoprolol [Lopressor] 25 mg PO BID #60 tablet 02/21/16 [Rx] Nitroglycerin [Nitrostat] 0.4 mg SL AD PRN #10 tab.subl 02/21/16 [Rx] Amlodipine [Norvasc] 5 mg PO DAILY 06/13/16 [History] Lisinopril [Zestril] 20 mg PO DAILY 06/13/16 [History] Rivaroxaban [Xarelto] 20 mg PO DAILY 06/13/16 [History] Isosorbide MONOnitrate (24 HR) [Imdur] 30 mg PO DAILY #30 tab.er.24h 06/17/16 [ Rx] Allergies/Adverse Reactions: Allergies Oxycodone [From Percocet] Allergy (Verified 06/13/16 06:15) Hives tramadol Allergy (Verified 06/13/16 06:15) Hives Procedures/tests Complete & Pending: Procedures Performed prior 72 hours Category Date Time Status ECG 12 lead ECG [ECG] Routine Y 07/06/16 05:35 Completed Date of admission: 07/06/16 05:52 Primary care physician: Hannah Rojas CNP Consults: 07/06/16 06:05 Consult to Neurology [CONS] Routine Consulting Provider: Neurology [facility] Reason for Consult: left sided numbness Call Completed: No 07/06/16 11:42 Consult to Resource Director [CONS] Routine Reason for SW Consult: discharge planning Discharging clinician: Rodo Vaughn Anticipated date of discharge: 07/07/16 - Patient Status Disposition: Home, Self-Care Condition: Fair Functional capacity at discharge: independent ambulation Overall status at discharge: patient is back to baseline - Discharge Instructions Follow Up With: Hannah Rojas, OIL AND GAS SUPERINTENDENT [Primary Care Provider] - 07/13/16 11:00 am Additional Instructions: [facility] Neurology follow up. - Diet and Activity Activity: increase activity as tolerated Diet: advance to your usual diet Interval History: Mr. 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 Last time he was feeling normal was at 11 PM when he went to bed. He is still complaining of left facial numbness tingling on her upper and lower extremities , numbness persisting all those areas. Complaining of minimal weakness in the left hand fingers, also blurry vision. They are physician contacted the [facility] neurology department, no TPA was recommended. Stroke alert was called. Patient's blood pressure is 160/88 glucose 174, he complains of mild shortness of breath. Hospital course: Mr. Pizarro is a 75 year old male admitted due to weakness, evaluated by neurology, Head CT without acute changes, has a pacemaker and MRI was not feasible, no further workup recommended and neurology signed off. Patient stable will be discharged home and will follow up with pcp and neurology as outpatient. Resume home meds. D/W patient. - Time Spent with Patient Total time spent providing and/or coordinating discharge services: - Constitutional Vitals: Temp Pulse Resp BP Pulse Ox 98.3 F 67 15 159/76 94 07/07/16 07:41 07/07/16 07:41 07/07/16 07:41 07/07/16 07:41 07/07/16 07:53 General appearance: Present: cooperative, A&O X 3, pleasant, no acute distress Exam: heard of haring. multiple tattoos. - Head Head exam: Present: atraumatic, normocephalic - Eye Eye exam: Present: PERRL, conjuntiva pink, sclera anicteric Pupils: Present: PERRL - Neck Neck exam general surgery: Present: supple, trachea midline. Absent: lymphadenopathy - Respiratory Respiratory exam: Present: CTAB. Absent: accessory muscle use, rales, rhonchi, wheezes - Cardiovascular Cardiovascular exam: Present: RRR, +S1, +S2. Absent: diastolic murmur, gallop, rubs, systolic murmur - GI/Abdominal GI/Abdominal exam: Present: normal bowel sounds, soft, no peritoneal signs. Absent: distended, tenderness - Extremities Exam Extremities exam: Present: warm, radial pulses palpable and symetrical. Absent : calf tenderness, cyanotic, pedal edema - Neurological Exam Neurological exam: Present: CN II-XII intact, oriented X3, no focal deficits. Absent: pronater drift, facial droop, speech deficit - Skin Skin exam: Present: dry, intact
--- NOTE | 2016-07-08 11:26 | Electrocardiograph Report ---
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
== END 2016-07-07 10:49 | disposition home or self-care (01) ==
LOC: 3BNU 04:46 → EMEROO 04:46 → SUATTDRO 05:52 → 3BNU 06:10
PROVIDERS: ADMIT Internal Medicine; ATTEND Internal Medicine

== ENCOUNTER 2016-10-01 16:24 | Observation (INO) ==
--- NOTE | 2016-10-01 16:33 | Emergency Department Note ---
Disposition Clinical Impression: Chest pain Disposition: Still a Patient Condition: Good Instructions: Chest Pain (ED) Reasons to Return/Additional Instructions: Please return to the emergency department for any worsening symptoms including increased chest pain, nausea or vomiting that is uncontrollable, or altered mental status. Referrals: Lance Cronin MD [Primary Care Provider] - Forms: ED Satisfaction Letter Chest Pain HPI - General Chief Complaint: ED Chest Pain Stated Complaint: chest pain Time Seen by Provider: 10/01/16 16:29 Source: patient Mode of arrival: EMS Limitations: no limitations Vital Signs Reviewed: Yes Nursing Notes Reviewed: Yes - History of Present Illness HPI Narrative: 75-year-old male presenting with a chief complaint of chest pain. He states for the past 2 days he has had substernal chest pain which acutely got worse over the past 90 minutes. He states it radiates to his left pectoral region. He has associated nausea and diaphoresis. He describes the pain as a tingling and stabbing pain. He has a significant cardiac history of a CABG previously. He is on no blood thinners at this time. But currently takes aspirin. He took his aspirin this morning around 7 AM. - Related Data Home Medications Medication Instructions Recorded Confirmed Lisinopril [Zestril] 20 mg PO DAILY 06/13/16 07/06/16 Rivaroxaban [Xarelto] 20 mg PO DAILY 06/13/16 07/06/16 amLODIPine [Norvasc] 5 mg PO DAILY 06/13/16 07/06/16 Previous Rx's Medication Instructions Recorded Aspirin Enteric Coated [Aspirin EC] 81 mg PO DAILY #30 tablet. 02/21/16 Atorvastatin [Lipitor] 40 mg PO HS #30 tablet 02/21/16 Furosemide [Lasix] 40 mg PO DAILY #30 tablet 02/21/16 Metoprolol [Lopressor] 25 mg PO BID #60 tablet 02/21/16 Nitroglycerin [Nitrostat] 0.4 mg SL AD PRN #10 tab.subl 02/21/16 Isosorbide MONOnitrate (24 HR) 30 mg PO DAILY #30 tab.er.24h 06/17/16 [Imdur] Meclizine [Antivert] 25 mg PO TID #15 tablet 07/16/16 Sulfamethoxazole/Trimeth DS 1 each PO BID #10 tablet 08/13/16 [Bactrim DS] Allergies Allergy/AdvReac Type Severity Reaction Status Date / Time Oxycodone [From Percocet] Allergy Hives Verified 10/01/16 16:37 tramadol Allergy Hives Verified 10/01/16 16:37 Constitutional: Denies: fever, chills, weakness Eyes: Denies: eye discharge ENT ED: Reports: as per HPI Cardiovascular: Reports: chest pain. Denies: palpitations, dyspnea on exertion Respiratory: Denies: cough, dyspnea, wheezes Gastrointestinal: Reports: nausea. Denies: abdominal pain, vomiting Genitourinary: Reports: as per HPI Musculoskeletal: Reports: as per HPI Integumentary: Denies: rash Neurological: Reports: paresthesias. Denies: headache, weakness, numbness Endocrine: Reports: as per HPI Hematological/Lymphatic: Reports: as per HPI Chest Pain PMH - Past Medical History Medical history: Reports: asthma, coronary artery disease, CVA, diabetes, hypertension, myocardial infarction, thyroid disease Surgical history: Reports: cholecystectomy, coronary bypass (CABG), pacemaker/ AICD Psychiatric history: Reports: no psych history - Social History Smoking Status: Former smoker Alcohol use: Reports: none Drug use: Reports: none Physical Exam - General Limitations: no limitations General appearance: alert - Head Head exam: atraumatic, normocephalic - Eye Eye exam: Present: normal appearance - Neck Neck exam: Present: normal inspection - Chest Chest inspection: Present: normal inspection, symmetric chest wall rise. Absent : tenderness - Respiratory Respiratory exam: Present: normal lung sounds bilaterally. Absent: respiratory distress, wheezes - Cardiovascular Cardiovascular exam: Present: regular rate, normal rhythm - Abdominal Exam Abdominal exam: Present: soft, Non-Tender. Absent: distention, guarding, rebound - Extremities Exam Extremities exam: Present: normal inspection, full ROM - Neurological Exam Neurological exam: Present: alert, oriented X3. Absent: motor sensory deficit - Skin Skin exam: Present: warm, dry, intact Course Course Narrative: 75-year-old male presenting to the emergency department with acute onset of chest pain. He states it acutely got worse over the past 90 minutes. Due to his cardiac history including a CABG we are going to do a cardiac workup. He is currently pain-free at this time. - Reevaluation(s) Reevaluation #1: All the patient's lab work and evaluation has come back within normal limits. Looking at the most recent cardiology report it states "mall, moderate-severe intensity fixed perfusion defect in LV apex consistent with small apical SD. No reversible ischemia" the patient is now pain free. Qe will complete another troponin level. If that is normal we will discharge him home with proper follow -up care. Time: 17:52 Vital Signs Temperature 98.8 F 10/01/16 16:25 Pulse Rate 71 10/01/16 16:25 Respiratory Rate 16 10/01/16 16:25 Blood Pressure 189/102 10/01/16 16:25 O2 Sat by Pulse Oximetry 97 10/01/16 16:25 Temperature 98.8 F 10/01/16 16:25 Pulse Rate 86 10/01/16 17:34 Respiratory Rate 20 10/01/16 17:34 Blood Pressure 152/100 10/01/16 17:34 O2 Sat by Pulse Oximetry 96 10/01/16 17:34 Oxygen Delivery Oxygen Delivery Room Air Chest Pain - Medical Records Medical records reviewed: Yes I reviewed the patient's medical records. - Lab Data Lab results reviewed: Yes I reviewed the patient's lab results. Result diagrams: 10/01/16 16:47 10/01/16 16:47 Lab Results 10/01/16 10/01/16 10/01/16 Range/Units 16:47 16:47 16:47 WBC 8.9 (4.3-11.1) K/mcL RBC 5.47 (4.19-5.50) M/mcL Hgb 15.6 (12.9-16.9) g/dL Hct 46.3 (37.5-50.1) % MCV 84.6 (83.0-100.0) fL MCH 28.5 (28.0-33.3) pg MCHC 33.7 (31.6-35.5) g/dL RDW 13.2 (11.5-14.5) % Plt Count 148 (140-400) K/mcL MPV 10.8 (9.4-12.4) fL Immature Gran % 0.3 (0-4) % Seg Neutrophils % 65.3 % Lymphocytes % 23.0 % Monocytes % 7.9 % Eosinophils % 2.7 % Basophils % 0.8 % Neutrophils # 5.8 (1.6-8.9) K/mcL Lymphocytes # 2.1 (0.6-4.6) K/mcL Monocytes # 0.7 (0.0-1.3) K/mcL Eosinophils # 0.2 (0.0-0.6) K/mcL Basophils # 0.1 (0.0-0.2) K/mcL PT 11.6 (9.4-12.1) Seconds INR 1.1 APTT 28.8 (26.0-36.0) Seconds Sodium 139 (136-145) mEq/L Potassium 3.6 (3.5-4.5) mEq/L Chloride 105 (98-109) mEq/L Carbon Dioxide 24 (19-29) mEq/L BUN 18 (8-26) mg/dL Creatinine 1.41 H (0.72-1.25) mg/dL Est GFR ( Amer) 59 L (> 60) Est GFR (Non-Af Amer) 49 L (> 60) BUN/Creatinine Ratio 13 (6-26) Glucose 138 H (70-99) mg/dL Calculated Osmolality 292 (280-300) Calcium 9.6 (8.6-10.8) mg/dL Troponin I (0-0.03) ng/mL 10/01/16 Range/Units 16:47 WBC (4.3-11.1) K/mcL RBC (4.19-5.50) M/mcL Hgb (12.9-16.9) g/dL Hct (37.5-50.1) % MCV (83.0-100.0) fL MCH (28.0-33.3) pg MCHC (31.6-35.5) g/dL RDW (11.5-14.5) % Plt Count (140-400) K/mcL MPV (9.4-12.4) fL Immature Gran % (0-4) % Seg Neutrophils % % Lymphocytes % % Monocytes % % Eosinophils % % Basophils % % Neutrophils # (1.6-8.9) K/mcL Lymphocytes # (0.6-4.6) K/mcL Monocytes # (0.0-1.3) K/mcL Eosinophils # (0.0-0.6) K/mcL Basophils # (0.0-0.2) K/mcL PT (9.4-12.1) Seconds INR APTT (26.0-36.0) Seconds Sodium (136-145) mEq/L Potassium (3.5-4.5) mEq/L Chloride (98-109) mEq/L Carbon Dioxide (19-29) mEq/L BUN (8-26) mg/dL Creatinine (0.72-1.25) mg/dL Est GFR ( Amer) (> 60) Est GFR (Non-Af Amer) (> 60) BUN/Creatinine Ratio (6-26) Glucose (70-99) mg/dL Calculated Osmolality (280-300) Calcium (8.6-10.8) mg/dL Troponin I 0.03 (0-0.03) ng/mL - Radiology Data Radiology results reviewed: Yes I reviewed the patient's radiology results. - EKG Data EKG attestation: Yes I reviewed and interpreted this EKG. EKG results narrative: Paced rhythm. Rate of 60/m. OH interval of 153 ms, QRS of 193 ms, QTC of 532 ms. Attestation Statement - Attestation Attestation: I dr juarez examined this patient and my medical decision-making was reviewed with the PROCESS HELPER/PA/Advanced Practice Nurse/Resident Physician. I agree with the documented findings, disposition and treatment plan as described except to the extent set forth below.
[2016-10-01 17:10] LABS: Basophils # 0.1 K/mcL (0.0-0.2); Basophils % 0.8 %; Eosinophils # 0.2 K/mcL (0.0-0.6); Eosinophils % 2.7 %; Hematocrit 46.3 % (37.5-50.1); Hemoglobin 15.6 g/dL (12.9-16.9); Immature Granulocytes % 0.3 % (0-4); Lymphocytes # 2.1 K/mcL (0.6-4.6); Mean Corpuscular HGB Conc 33.7 g/dL (31.6-35.5); Mean Corpuscular Hemoglobin 28.5 pg (28.0-33.3); Mean Corpuscular Volume 84.6 fL (83.0-100.0); Mean Platelet Volume 10.8 fL (9.4-12.4); Monocytes # 0.7 K/mcL (0.0-1.3); Monocytes % 7.9 %; Neutrophils # 5.8 K/mcL (1.6-8.9); Platelet Count 148 K/mcL (140-400); Red Blood Count 5.47 M/mcL (4.19-5.50); Red Cell Distribution Width 13.2 % (11.5-14.5); Segmented Neutrophils % 65.3 %
[2016-10-01 17:15] LABS: INR 1.1; Prothrombin Time 11.6 Seconds (9.4-12.1)
[2016-10-01 17:18] LABS: Activated Partial Thrombo Time 28.8 Seconds (26.0-36.0)
[2016-10-01 17:22] LABS: Calcium 9.6 mg/dL (8.6-10.8); Potassium 3.6 mEq/L (3.5-4.5)
[2016-10-01] MEDS: Nitroglycerin 0.4 MG TAB.SUBL SL PRN ×3 (17:23→17:32)
[2016-10-01] MEDS ORDERED: Acetaminophen 325 MG TABLET PO ONE (18:08)
[2016-10-01] MEDS ORDERED: *HR* Heparin 5,000 UNIT/ML VIAL IVP PRN ×2 (19:26)
[2016-10-01] MEDS ORDERED: *HR* Heparin 5,000 UNIT/ML VIAL IVP ONE (19:26)
[2016-10-01] MEDS ORDERED: Aspirin 81 MG TAB.CHEW PO STA (19:26)
[2016-10-01] MEDS ORDERED: Heparin 25,000 UNIT/500 ML D5W 25,000 UNIT/500 ML MLS IVC SCH (19:30)
--- NOTE | 2016-10-01 20:11 | Emergency Department Note ---
Disposition Clinical Impression: Elevated troponin I level Chest pain Qualifiers: Chest pain type: unspecified Qualified Code(s): R07.9 - Chest pain, unspecified Disposition: Admitted As Inpatient Condition: Good Instructions: Chest Pain (ED) Reasons to Return/Additional Instructions: Please return to the emergency department for any worsening symptoms including increased chest pain, nausea or vomiting that is uncontrollable, or altered mental status. Referrals: Lance Cronin MD [Primary Care Provider] - Forms: ED Satisfaction Letter Time of Disposition: 20:13 Chest Pain HPI - General Chief Complaint: ED Chest Pain Stated Complaint: chest pain Time Seen by Provider: 10/01/16 16:29 Source: patient Mode of arrival: EMS Limitations: no limitations Vital Signs Reviewed: Yes Nursing Notes Reviewed: Yes - History of Present Illness Severity scale (1-10): 6 - Related Data Home Medications Medication Instructions Recorded Confirmed Lisinopril [Zestril] 20 mg PO DAILY 06/13/16 10/01/16 Rivaroxaban [Xarelto] 20 mg PO DAILY 06/13/16 10/01/16 amLODIPine [Norvasc] 5 mg PO DAILY 06/13/16 10/01/16 Isosorbide MONOnitrate (24 HR) 60 mg PO DAILY 10/01/16 10/01/16 [Imdur] Nitroglycerin [Nitrostat] 0.4 mg SL Q5M PRN 10/01/16 10/01/16 Previous Rx's Medication Instructions Recorded Aspirin Enteric Coated [Aspirin EC] 81 mg PO DAILY #30 tablet. 02/21/16 Atorvastatin [Lipitor] 40 mg PO HS #30 tablet 02/21/16 Furosemide [Lasix] 40 mg PO DAILY #30 tablet 02/21/16 Metoprolol [Lopressor] 25 mg PO BID #60 tablet 02/21/16 Allergies Allergy/AdvReac Type Severity Reaction Status Date / Time Oxycodone [From Percocet] Allergy Hives Verified 10/01/16 16:37 tramadol Allergy Hives Verified 10/01/16 16:37 All systems ED: reviewed and negative except as stated. Constitutional: Denies: fever, chills, weakness Eyes: Denies: eye discharge ENT ED: Reports: as per HPI Cardiovascular: Reports: chest pain. Denies: palpitations, dyspnea on exertion Respiratory: Denies: cough, dyspnea, wheezes Gastrointestinal: Reports: nausea. Denies: abdominal pain, vomiting Genitourinary: Reports: as per HPI Musculoskeletal: Reports: as per HPI Integumentary: Denies: rash Neurological: Reports: paresthesias. Denies: headache, weakness, numbness Endocrine: Reports: as per HPI Hematological/Lymphatic: Reports: as per HPI Chest Pain PMH - Past Medical History Medical history: Reports: asthma, coronary artery disease, CVA, diabetes, hypertension, myocardial infarction, thyroid disease Surgical history: Reports: cholecystectomy, coronary bypass (CABG), pacemaker/ AICD Psychiatric history: Reports: no psych history - Social History Smoking Status: Former smoker Alcohol use: Reports: none Drug use: Reports: none Physical Exam - General Limitations: no limitations General appearance: alert - Chest Chest inspection: Present: normal inspection, symmetric chest wall rise, tenderness (Tendon is noted over the pacemaker site) - Respiratory Respiratory exam: Present: normal lung sounds bilaterally - Cardiovascular Cardiovascular exam: Present: regular rate, normal rhythm, normal heart sounds - Abdominal Exam Abdominal exam: Present: soft, Non-Tender, normal bowel sounds. Absent: tenderness, distention, guarding, rebound, rigidity Course Course Narrative: Patient seen at the time of my shift starting at 1900 hrs. Patient was signed out by the daytime physician Dr. Lau. Patient is well known to this emergency room with complaints of chest pain. They were attempting do a cardiac rule out repeat troponins. Patient's repeat troponin was 0.04. I went in to reevaluate the patient at the bedside and he described no chest pain at that time. I advised that we did find an elevated troponin in today to start him on aspirin and heparin drip. He understands this and is comfortable with the plan. Patient otherwise is in no other distress resting comfortably in the bed with negative laboratory workup aside from the troponin. Disposition will be admission. Patient was discussed with the hospitalist Dr. hernandez. Reviewed the presentation symptoms. He said that his findings start the heparin drip and they will stop it upstairs that there is no reason to keep her going. Otherwise patient provided with aspirin and cardiac evaluation and admission of this time. Patient is otherwise resting comfortably. We will continue to monitor in the emergency room his admission process was completed Vital Signs Temperature 98.8 F 10/01/16 16:25 Pulse Rate 71 10/01/16 16:25 Respiratory Rate 16 07/14/17 16:25 Blood Pressure 189/102 10/01/16 16:25 O2 Sat by Pulse Oximetry 97 10/01/16 16:25 Temperature 98.8 F 10/01/16 16:25 Pulse Rate 70 10/01/16 20:05 Respiratory Rate 18 10/01/16 20:05 Blood Pressure 162/112 10/01/16 20:05 O2 Sat by Pulse Oximetry 98 10/01/16 20:05 Oxygen Delivery Oxygen Delivery Room Air Chest Pain - MDM Narrative Medical decision making narrative: Chest pain, troponin - Medical Records Medical records reviewed: Yes I reviewed the patient's medical records. - Lab Data Lab results reviewed: Yes I reviewed the patient's lab results. Result diagrams: 10/01/16 16:47 10/01/16 16:47 Lab Results 10/01/16 10/01/16 10/01/16 Range/Units 16:47 16:47 16:47 WBC 8.9 (4.3-11.1) K/mcL RBC 5.47 (4.19-5.50) M/mcL Hgb 15.6 (12.9-16.9) g/dL Hct 46.3 (37.5-50.1) % MCV 84.6 (83.0-100.0) fL MCH 28.5 (28.0-33.3) pg MCHC 33.7 (31.6-35.5) g/dL RDW 13.2 (11.5-14.5) % Plt Count 148 (140-400) K/mcL MPV 10.8 (9.4-12.4) fL Immature Gran % 0.3 (0-4) % Seg Neutrophils % 65.3 % Lymphocytes % 23.0 % Monocytes % 7.9 % Eosinophils % 2.7 % Basophils % 0.8 % Neutrophils # 5.8 (1.6-8.9) K/mcL Lymphocytes # 2.1 (0.6-4.6) K/mcL Monocytes # 0.7 (0.0-1.3) K/mcL Eosinophils # 0.2 (0.0-0.6) K/mcL Basophils # 0.1 (0.0-0.2) K/mcL PT 11.6 (9.4-12.1) Seconds INR 1.1 APTT 28.8 (26.0-36.0) Seconds Sodium 139 (136-145) mEq/L Potassium 3.6 (3.5-4.5) mEq/L Chloride 105 (98-109) mEq/L Carbon Dioxide 24 (19-29) mEq/L BUN 18 (8-26) mg/dL Creatinine 1.41 H (0.72-1.25) mg/dL Est GFR ( Amer) 59 L (> 60) Est GFR (Non-Af Amer) 49 L (> 60) BUN/Creatinine Ratio 13 (6-26) Glucose 138 H (70-99) mg/dL Calculated Osmolality 292 (280-300) Calcium 9.6 (8.6-10.8) mg/dL Troponin I (0-0.03) ng/mL 10/01/16 10/01/16 Range/Units 16:47 18:52 WBC (4.3-11.1) K/mcL RBC (4.19-5.50) M/mcL Hgb (12.9-16.9) g/dL Hct (37.5-50.1) % MCV (83.0-100.0) fL MCH (28.0-33.3) pg MCHC (31.6-35.5) g/dL RDW (11.5-14.5) % Plt Count (140-400) K/mcL MPV (9.4-12.4) fL Immature Gran % (0-4) % Seg Neutrophils % % Lymphocytes % % Monocytes % % Eosinophils % % Basophils % % Neutrophils # (1.6-8.9) K/mcL Lymphocytes # (0.6-4.6) K/mcL Monocytes # (0.0-1.3) K/mcL Eosinophils # (0.0-0.6) K/mcL Basophils # (0.0-0.2) K/mcL PT (9.4-12.1) Seconds INR APTT (26.0-36.0) Seconds Sodium (136-145) mEq/L Potassium (3.5-4.5) mEq/L Chloride (98-109) mEq/L Carbon Dioxide (19-29) mEq/L BUN (8-26) mg/dL Creatinine (0.72-1.25) mg/dL Est GFR ( Amer) (> 60) Est GFR (Non-Af Amer) (> 60) BUN/Creatinine Ratio (6-26) Glucose (70-99) mg/dL Calculated Osmolality (280-300) Calcium (8.6-10.8) mg/dL Troponin I 0.03 0.04 H* (0-0.03) ng/mL - Radiology Data Radiology results reviewed: Yes I reviewed the patient's radiology results. - EKG Data EKG attestation: Yes I reviewed and interpreted this EKG. Heart Score - Score History: Slightly Suspicious EKG: Non Specific repolarisation Disturbance Age: Greater than 65 Risk Factors: Equal/Greater than 3 risk factor or history of atherosclerotic disease Troponin: 1-3x normal limit HEART Score Total: 6 Critical Care Time Critical Care Time: Yes Total Critical Care Time: 35 Attestation: Critical care performed: Time is exclusive of separately billable procedures. Time includes: direct patient care, patient reassessment, coordination of patient care, interpretation of data (laboratory data, radiology data, and respiratory data), review of patient's medical records, medical consultation and documentation of patient care. Procedures included in critical care time: Independent of procedures medical management Procedures excluded from critical care time:
[2016-10-02] MEDS ORDERED: Naloxone 0.4 MG/ML INJ IVP PRN (01:38)
[2016-10-02] MEDS ORDERED: Nitroglycerin 0.4 MG TAB.SUBL SL PRN (01:42)
--- NOTE | 2016-10-02 01:52 | Internal Med History&Physical ---
Date of Encounter: 10/02/16 Time of Encounter: 00:20 Assessment and Plan (1) Chest pain Current visit: No Status: Acute 1. Chest pain appears to be musculoskeletal in nature based upon exam. 2. Troponin is slightly elevated, however. 3. Will trend troponins, continue Heparin gtt for now, and ask Cardiology to see patient -- especially given the pacer site pain. 4. Resume home meds as appropriate. Hold Xarelto while on Heparin gtt. Qualifiers: Chest pain type: intercostal pain Qualified Code(s): R07.82 - Intercostal pain (2) History of CHF (congestive heart failure) Current visit: No Status: Chronic 1. NO acute process presently. 2. Continue home meds as appropriate. 3. Monitor daily weight and I/O. (3) HTN (hypertension) Current visit: No Status: Chronic 1. Continue home meds and add hydralazine PRN for elevated BP. 2. Monitor and adjust as needed. Qualifiers: Hypertension type: essential hypertension Qualified Code(s): I10 - Essential (primary) hypertension (4) DVT prophylaxis Current visit: No Status: Acute 1. On heparin drip. Internal Medicine - H&P: HPI Chief complaint: chest pain Admitted From: Emergency Dept Plans for Post Hospital Care: Home History of present illness: Mr. Pizarro is a 75 year old male who presents to the ER with a several hour episode of chest pain which began yesterday afternoon. Pain was atypical, yet it bothered him as it radiated toward his left chest and he had associated shortness of breath. He therefore came to the ER where he had initial workup performed which was negative. A second troponin was obtained in the ER and the second one was elevated. He was therefore admitted to the hospitalist service after having heparin drip initiated. Upon my assessment of the patient, he is chest pain-free presently. He denies any complaints. He denies any shortness of breath, diaphoresis, or nausea. He states he does often have pain around his pacemaker insertion site. I was able to reproduce the same kind of pain today upon palpation of his pacemaker site. Additionally, he has reproducible chest wall pain along the sternum. He states that this is chronic and the pain he experienced today was different than his sternal pain. He denies any fevers, cough, purulent sputum production, and/or pleurisy. Past Med Surg Social Fam HX - Past Medical History Attestation: Yes The following information was validated with the patient. Source: patient, old records reviewed Medical history: asthma, coronary artery disease, CVA, diabetes, hypertension, myocardial infarction, thyroid disease Psychiatric history: no psych history - Past Surgical History Surgical History: cholecystectomy, coronary bypass (CABG), pacemaker/AICD - Social History Smoking Status: Former smoker Smokeless Tobacco Status: No Alcohol use: none Drug use: none Current living situation: Home, With Family - Family History Grandfather Living Status: Hx Family Cardiac Disorders: Yes Mother Living Status: Father Adopted: No Living Status: Age at : 72 Cause of : cancer Internal Medicine - H&P: Meds Aspirin Enteric Coated [Aspirin EC] 81 mg PO DAILY #30 tablet. 02/21/16 [Rx] Atorvastatin [Lipitor] 40 mg PO HS #30 tablet 02/21/16 [Rx] Furosemide [Lasix] 40 mg PO DAILY #30 tablet 02/21/16 [Rx] Metoprolol [Lopressor] 25 mg PO BID #60 tablet 02/21/16 [Rx] Lisinopril [Zestril] 20 mg PO DAILY 06/13/16 [History] Rivaroxaban [Xarelto] 20 mg PO DAILY 06/13/16 [History] amLODIPine [Norvasc] 5 mg PO DAILY 06/13/16 [History] Isosorbide MONOnitrate (24 HR) [Imdur] 60 mg PO DAILY 10/01/16 [History] Nitroglycerin [Nitrostat] 0.4 mg SL Q5M PRN 10/01/16 [History] Allergies Oxycodone [From Percocet] Allergy (Verified 10/01/16 16:37) Hives tramadol Allergy (Verified 10/01/16 16:37) Hives - Constitutional Constitutional: no chills, no fever(s), no night sweats - EENT Eyes: no blurry vision, no change in vision Ears: no ear pain, no tinnitus Nose, mouth and throat: no nasal congestion, no sinus pain, no sinus pressure, no sore throat - Cardiovascular Cardiovascular ROS IM: chest pain, no diaphoresis, no dyspnea, no lightheadedness, no palpitations - Respiratory Respiratory: no cough, no dyspnea, no hemoptysis, no dyspnea on exertion, no chest congestion, no change in phlegm color - Gastrointestinal Gastrointestinal: no abdominal pain, no diarrhea, no hematemesis, no hematochezia, no melena, no vomiting - Genitourinary Genitourinary ROS male: no dysuria, no flank pain, no hematuria - Musculoskeletal Musculoskeletal ROS IM: no arthralgias, no back pain - Integumentary Integumentary IM: no rash - Neurological Neurological ROS: no dizziness, no focal weakness, no frequent falls, no headache(s) - Psychiatric Psychiatric: no anxiety, no depression - Endocrine Endocrine IM: no polydipsia, no polyuria - Hematologic/Lymphatic Hematologic/Lymphatic: easy bruising, no lymphadenopathy - Allergic/Immunologic Allergic/Immunologic: no wheezing, no GI upset with certain foods - Constitutional Vitals: Temp Pulse Resp BP Pulse Ox 97.8 F 77 16 175/89 96 10/01/16 23:02 10/01/16 23:02 10/01/16 23:02 10/02/16 00:28 10/01/16 21:47 General appearance: Present: cooperative, A&O X 3, pleasant, no acute distress - Head Head exam: Present: atraumatic, normal inspection - Eye Eye exam: Present: EOMI, normal appearance, PERRL. Absent: scleral icterus Pupils: Present: normal accommodation - ENT ENT exam: Present: mucous membranes moist, normal exam - Neck Neck exam general surgery: Present: full ROM, supple. Absent: lymphadenopathy, tenderness - Expanded Neck Exam Neck exam: Absent: carotid bruit - Respiratory Respiratory exam: Present: chest wall tenderness (sternum and pacer site -- no sign of redness, warmth, or edema), CTAB, rales. Absent: respiratory distress, rhonchi, wheezes - Cardiovascular Cardiovascular exam: Present: RRR, +S1, +S2. Absent: diastolic murmur, JVD, systolic murmur - GI/Abdominal GI/Abdominal exam: Present: normal bowel sounds, soft. Absent: hepatomegaly, mass, splenomegaly, tenderness - Extremities Exam Extremities exam: Present: full ROM, warm, radial pulses palpable and symetrical. Absent: calf tenderness, joint swelling - Back Exam Back exam: Absent: CVA tenderness (L), CVA tenderness (R) - Neurological Exam Neurological exam: Present: alert, CN II-XII intact, oriented X3, no focal deficits - Psychiatric Psychiatric exam: Present: normal affect, normal mood - Skin Skin exam: Present: dry, warm Internal Med - H&P Results - Labs CBC & Chem 7: 10/01/16 16:47 10/01/16 16:47 - EKG Data -: EKG Interpreted by Myself - EKG Data Prior EKG available for review: no EKG comments: 10/02/16 01:56 AV paced rhythm - Diagnostic Studies Chest x-ray Status: image reviewed by me (negative; pacer in left upper chest) - VTE Reasons for not Prescribing Prophylaxis: Not indicated-Anticoagulated or INR therapeutic
[2016-10-02] MEDS: *HR* Morphine 2 MG/ML SYRINGE IVP PRN ×3 (02:37→19:48)
[2016-10-02 03:46] LABS: Basophils # 0.1 K/mcL (0.0-0.2); Basophils % 0.7 %; Eosinophils # 0.4 K/mcL (0.0-0.6); Eosinophils % 3.3 %; Hematocrit 47.2 % (37.5-50.1); Hemoglobin 15.7 g/dL (12.9-16.9); Immature Granulocytes % 0.2 % (0-4); Lymphocytes # 3.2 K/mcL (0.6-4.6); Lymphocytes % 29.4 %; Mean Corpuscular HGB Conc 33.3 g/dL (31.6-35.5); Mean Corpuscular Hemoglobin 28.1 pg (28.0-33.3); Mean Corpuscular Volume 84.4 fL (83.0-100.0); Mean Platelet Volume 11.5 fL (9.4-12.4); Monocytes # 0.8 K/mcL (0.0-1.3); Monocytes % 7.6 %; Neutrophils # 6.3 K/mcL (1.6-8.9); Platelet Count 165 K/mcL (140-400); Red Blood Count 5.59 M/mcL (4.19-5.50); Red Cell Distribution Width 13.2 % (11.5-14.5); Segmented Neutrophils % 58.8 %
[2016-10-02 04:01] LABS: Alanine Aminotransferase 35 Units/L (0-55); Albumin 3.6 g/dL (3.5-5.0); Albumin/Globulin Ratio 1.1 (1.1-2.2); Alkaline Phosphatase 77 Units/L (38-126); Aspartate Amino Transferase 24 Units/L (5-34); BUN/Creatinine Ratio 15 (6-26); Blood Urea Nitrogen 17 mg/dL (8-26); Calcium 9.3 mg/dL (8.6-10.8); Carbon Dioxide 23 mEq/L (19-29); Chloride 106 mEq/L (98-109); Chol/HDL Ratio 4.9 (0-4.9); Cholesterol 183 mg/dL (< 200); Globulin 3.4 g/dL (2.4-3.5); Glucose 175 mg/dL (70-99); HDL Cholesterol 37 mg/dL (40-59); LDL Cholesterol,Calculated 102 mg/dL (0-99); Magnesium 1.6 mg/dL (1.6-2.6); Osmolality,Calculated 294 (280-300); Potassium 3.4 mEq/L (3.5-4.5); Sodium 139 mEq/L (136-145); Triglycerides 218 mg/dL (< 150); eGFR For African Americans > 60 (> 60); eGFR For Non-African Americans > 60 (> 60)
--- NOTE | 2016-10-02 08:53 | Cardiology Consult Note ---
Date of Encounter: 10/02/16 Time of Encounter: 08:00 Assessment and Plan (1) Chest pain Current Visit: No Status: Acute Recurrent chest pain. Chest pain symptoms with typical and atypical features. Pain increases with exertion and is relieved with rest. Troponin 0.03, 0.04, 0.03, non-diagnostic in the setting of uncontrolled hypertension, mild DARLYN on admission. Heparin gtt is not indicated. Pain similar to what he felt in May. Stress test 05/2016: Gated EF 35%, small area, moderate intensity fixed perfusion defect in LV apex representing small area infarct. Imaging negative for reversible ischemia. TTE 05/2016: EF 35-40% with global hypokenesis. No significant valvular disease. Patient had recurrent symptoms in out-pt setting 06/2016 and imdur increased. LHC R/B/A discussed verses medical management. Will keep NPO after midnight for possible LHC. DARLYN now resolved. Better blood pressure control recommended. Increase norvasc to 10 mg daily. Increase imdur. Continue asa, statin, and bb. We will re-evaluate in am. Qualifiers: Chest pain type: intercostal pain Qualified Code(s): R07.82 - Intercostal pain (2) CAD (coronary artery disease) Current Visit: No Status: Chronic H/o CABG in 2002 and previous PCI. Continue asa, statin, and bb. Qualifiers: Coronary Disease-Associated Artery/Lesion type: bypass graft [place] vs. transplanted heart: pal[place] heart Associated angina: without angina Qualified Code(s): I25.810 - Atherosclerosis of coronary artery bypass graft(s) without angina pectoris (3) Congestive heart failure Current Visit: No Status: Chronic H/o ICMP. EF 35-40% on TTE 05/2016. Currenty euvolemic. Change lopressor to carvedilol. Restart lisinopril. CHF education reviewed. Qualifiers: Congestive heart failure type: systolic Congestive heart failure chronicity : chronic Qualified Code(s): I50.22 - Chronic systolic (congestive) heart failure (4) HTN (hypertension) Current Visit: No Status: Chronic B/p improving. Up to 216/98. Increase norvasc. Change lopressor to carvedilol. Low sodium diet. Qualifiers: Hypertension type: essential hypertension Qualified Code(s): I10 - Essential (primary) hypertension Discussion w patient/family: The assessment and plan as outlined above was discussed with the patient and/or family members who expressed understanding and agreement. All questions were answered. Thank you for involving us in the care of your patient. Please call with any questions. History of Present Illness Consult date: 10/02/16 Requesting physician: Patricio Peterson Consult reason: Chest pain Chief complaint: Chest pain History of present illness: Mr. Pizarro is a 75 year old male with a past medical history of CABG in 2002, ICMP, bradycardia s/p PPM, HTN, DM type II and CVA who presented with chest pain for one week. C/o pain radiating across his upper chest described as a pressure. Pain increases with exertion and deep breaths. He also c/o tenderness around his ICD with palpation. Pain is not similair to previous MT. C/o cough for 24 hours. Denies fever or chills. EKG showed atrial ventricuar pacing. Troponin found to be mildly elevated at 0.03, 0.04, 0.03. B/p elevated at 182/ 102. He was started on heparin gtt and cardiology was consulted. He reports his last [facility] was 3-4 years ago in [place]. He did receive PCI at that time. He underwent stress test in May for the same pain. Stress test was negative for ischemia. Past Med Surg Social Fam HX - Past Medical History Medical history: asthma, coronary artery disease, CVA, diabetes, hypertension, myocardial infarction, thyroid disease Psychiatric history: no psych history - Past Surgical History Surgical History: cholecystectomy, coronary bypass (CABG), pacemaker/AICD - Social History Smoking Status: Former smoker Smokeless Tobacco Status: No Alcohol use: none Drug use: none - Family History Grandfather Living Status: Hx Family Cardiac Disorders: Yes Mother Living Status: Father Adopted: No Living Status: Age at : 72 Cause of : cancer Medications and Allergies Aspirin Enteric Coated [Aspirin EC] 81 mg PO DAILY #30 tablet. 02/21/16 [Rx] Atorvastatin [Lipitor] 40 mg PO HS #30 tablet 02/21/16 [Rx] Furosemide [Lasix] 40 mg PO DAILY #30 tablet 02/21/16 [Rx] Metoprolol [Lopressor] 25 mg PO BID #60 tablet 02/21/16 [Rx] Lisinopril [Zestril] 20 mg PO DAILY 06/13/16 [History] Rivaroxaban [Xarelto] 20 mg PO DAILY 06/13/16 [History] amLODIPine [Norvasc] 5 mg PO DAILY 06/13/16 [History] Isosorbide MONOnitrate (24 HR) [Imdur] 60 mg PO DAILY 10/01/16 [History] Nitroglycerin [Nitrostat] 0.4 mg SL Q5M PRN 10/01/16 [History] Allergies Oxycodone [From Percocet] Allergy (Verified 10/01/16 16:37) Hives tramadol Allergy (Verified 10/01/16 16:37) Hives All Systems Review: A 10-system review of systems was performed and is negative for pertinent findings except as documented above in the HPI. Physical Examination Vital Signs, Last 4 Hours Temp Pulse Resp BP Pulse Ox 10/02/16 06:46 97.5 F L 67 18 157/85 96 10/02/16 05:58 97.6 F 62 18 160/78 96 General: Conversant, No Apparent Distress HEENT: Atraumatic, Normocephaly, Mucus Membranes Moist Neck: No JVD, Normal carotid pulses Cardiac: Reg Rate and Rhythm, Normal S1 and S2, No Murmur, Other (paced on telemetry.) Lungs: Normal Breath Sounds, No Wheeze, Rales, Rhonchi Neuro: Alert and responsive, No focal deficits noted Abdomen: Soft, Non-Tender Skin: No rashes noted on visualized skin Musculoskeletal: Other (Reproducible pain around ICD site) Extremities: No Clubbing, No Cyanosis, No Edema, Normal Pulses Results 10/02/16 03:15 10/02/16 03:15 Lab Results 10/02/16 10/02/16 10/02/16 03:15 03:15 03:15 WBC 10.7 Hgb 15.7 Hct 47.2 Plt Count 165 APTT 71.4 H D Sodium Potassium Chloride Carbon Dioxide BUN Creatinine Glucose Calcium Magnesium Total Bilirubin AST ALT Alkaline Phosphatase Troponin I 0.03 10/02/16 10/02/16 03:15 07:47 WBC Hgb Hct Plt Count APTT Sodium 139 Potassium 3.4 L Chloride 106 Carbon Dioxide 23 BUN 17 Creatinine 1.17 Glucose 175 H Calcium 9.3 Magnesium 1.6 Total Bilirubin 1.0 AST 24 ALT 35 Alkaline Phosphatase 77 Troponin I 0.03 Chest X-Ray 10/01/16 16:30 IMPRESSION: Stable portable study. D/ / Emperatriz Wyatt Cha, MD / Emperatriz Wyatt Cha, MD Interpreting Provider: Emperatriz Wyatt Cha, MD - Imaging and Cardiology Chest Xray: report reviewed Stress Test: report reviewed Echo: report reviewed Consult Discharge Plan - Plan Referrals: Lance Cronin MD [Primary Care Provider] - (web request sent on 10/04/16)
[2016-10-02] MEDS ORDERED: Isosorbide MONOnitrate (24 HR) 60 MG TAB.ER.24H PO SCH (09:00)
[2016-10-02] MEDS ORDERED: amLODIPine 5 MG TABLET PO SCH (09:00)
[2016-10-02] MEDS: Isosorbide MONOnitrate (24 HR) 30 MG TAB.ER.24H PO SCH (10:01)
[2016-10-02] MEDS: Furosemide 40 MG TABLET PO SCH (10:02)
[2016-10-02] MEDS: Aspirin Enteric Coated 81 MG Tablet PO SCH (10:02)
--- NOTE | 2016-10-02 11:05 | Event Note ---
Date of Encounter: 10/02/16 Time of Encounter: 10:58 Seen and evaluated at bedside 75 M with CAD s/p CABG, CHFrEF on Xarelto, HTN, admitted to observation for complains of chest pain He had very elevated blood pressure on admission , sustained for a few hours, as well as DARLYN His DARLYN has improved, he did have troponinleak 0.04 I have discontinued heparin drip as I do not think it is indicated, given his elevated BP and DARLYN at time of presentation. His other work up is unremarkable Physical exam is unremarkable, no chest wall tenderness He had a stress test in 05/2016 that revealed Gated EF 35%, small area, moderate intensity fixed perfusion defect in LV apex representing small area infarct. Imaging negative for reversible ischemia. TTE 05/2016: EF 35-40% with global hypokenesis. No significant valvular disease. Cardiology has been consulted in the meantime, will await their review BP better controlled now, increase Norvasc, Imdur, continue ASA, Lipitor, Lasix , Coreg Lisinopril was held due to DARLYN on admission, he is on 20mg daily at home, will restart at 10mg and titrate with renal function Plan of care discussed, verbalized understanding.
[2016-10-02] MEDS: Acetaminophen 325 MG TABLET PO PRN (12:02)
[2016-10-02] MEDS ORDERED: *HR* Rivaroxaban 10 MG TABLET PO SCH (17:00)
[2016-10-02] MEDS: Ondansetron 4 MG/2 ML VIAL IVP PRN (20:03)
[2016-10-03 05:00] LABS: BUN/Creatinine Ratio 20 (6-26); Blood Urea Nitrogen 24 mg/dL (8-26); Calcium 9.6 mg/dL (8.6-10.8); Carbon Dioxide 25 mEq/L (19-29); Chloride 105 mEq/L (98-109); Glucose 141 mg/dL (70-99); Osmolality,Calculated 292 (280-300); Sodium 138 mEq/L (136-145); eGFR For African Americans > 60 (> 60); eGFR For Non-African Americans 58 (> 60)
[2016-10-03] MEDS: *HR* Morphine 2 MG/ML SYRINGE IVP PRN ×3 (06:43→21:10)
[2016-10-03] MEDS: Nitroglycerin 0.4 MG TAB.SUBL SL PRN ×2 (08:38→08:45)
[2016-10-03] MEDS: Isosorbide MONOnitrate (24 HR) 30 MG TAB.ER.24H PO SCH (09:53)
[2016-10-03] MEDS: Furosemide 40 MG TABLET PO SCH (09:53)
[2016-10-03] MEDS: Aspirin Enteric Coated 81 MG Tablet PO SCH (09:53)
[2016-10-03] MEDS: amLODIPine 5 MG TABLET PO SCH (09:54)
--- NOTE | 2016-10-03 10:12 | Cardiology Progress Note ---
Date of Encounter: 10/03/16 Time of Encounter: 07:45 Assessment and Plan (1) Chest pain Current Visit: No Status: Acute Recurrent chest pain. Chest pain symptoms with typical and atypical features. Pain increases with exertion and is relieved with rest. Troponin 0.03, 0.04, 0.03, non-diagnostic in the setting of uncontrolled hypertension, mild DARLYN on admission. Heparin gtt is not indicated. Pain similar to what he felt in May when he underwent stress test and echo. Stress test 05/2016: Gated EF 35%, small area, moderate intensity fixed perfusion defect in LV apex representing small area infarct. Imaging negative for reversible ischemia. TTE 05/2016: EF 35-40% with global hypokenesis. No significant valvular disease. Patient had recurrent symptoms in out-pt setting 06/2016 and imdur increased. [facility] R/B/A discussed verses medical management. he would like to proceed with [facility]. Reports last C 3-4 years ago in [place]. Possible intervention at that time. He is a poor historian. Will keep NPO after midnight for [facility] tomorrow. DARLYN now resolved. Better blood pressure control recommended. Continue asa, statin, and bb. Qualifiers: Chest pain type: intercostal pain Qualified Code(s): R07.82 - Intercostal pain (2) CAD (coronary artery disease) Current Visit: No Status: Chronic H/o CABG in 2002 and previous PCI. Continue asa, statin, and bb. Qualifiers: Coronary Disease-Associated Artery/Lesion type: bypass graft [place] vs. transplanted heart: [place] heart Associated angina: without angina Qualified Code(s): I25.810 - Atherosclerosis of coronary artery bypass graft(s) without angina pectoris (3) Congestive heart failure Current Visit: No Status: Chronic H/o ICMP. EF 35-40% on TTE 05/2016. Currenty euvolemic. Change lopressor to carvedilol. Restart lisinopril. CHF education reviewed. Qualifiers: Congestive heart failure type: systolic Congestive heart failure chronicity : chronic Qualified Code(s): I50.22 - Chronic systolic (congestive) heart failure (4) HTN (hypertension) Current Visit: No Status: Chronic B/p improving. Up to 216/98. Norvasc increased and metoprolol changed to carvedilol 7/15/17. B/p continues to be elevated but improved. Low sodium diet. Increase lisinopril. Qualifiers: Hypertension type: essential hypertension Qualified Code(s): I10 - Essential (primary) hypertension Discussion w patient/family: The assessment and plan as outlined above was discussed with the patient and/or family members who expressed understanding and agreement. All questions were answered. Thank you for involving us in the care of your patient. Please call with any questions. Subjective Principal diagnosis: Chest pain Interval history: Mr. Pizarro C/o continued chest pain across his chest this morning. Pain occurs at rest. His pain is relieved with morphine. Objective Vital Signs, Last 4 Hours Temp Pulse Resp BP Pulse Ox 10/03/16 08:53 69 16 131/75 10/03/16 08:45 61 16 137/76 91 10/03/16 08:38 69 18 146/81 93 10/03/16 07:40 97.5 F L 71 14 172/91 96 General: Conversant, No Apparent Distress HEENT: Atraumatic, Normocephaly, Mucus Membranes Moist Neck: No JVD, Normal carotid pulses Cardiac: Reg Rate and Rhythm, Normal S1 and S2, No Murmur, Other (PPM in [place]) Lungs: Normal Breath Sounds, No Wheeze, Rales, Rhonchi Neuro: Alert and responsive, No focal deficits noted Abdomen: Soft, Non-Tender Skin: No rashes noted on visualized skin Musculoskeletal: No Chest Wall Tenderness Extremities: No Clubbing, No Cyanosis, No Edema, Normal Pulses Results 10/02/16 03:15 10/03/16 03:55 Lab Results 10/02/16 10/03/16 13:30 03:55 Sodium 138 Potassium 4.0 Chloride 105 Carbon Dioxide 25 BUN 24 Creatinine 1.21 Glucose 141 H Calcium 9.6 Troponin I 0.02 - VTE Reasons for not Prescribing Prophylaxis: Not indicated-Anticoagulated or INR therapeutic Documentation of Mechanical Device: Intermittent pneumatic compression device Consult Discharge Plan - Plan Referrals: Lance Cronin MD [Primary Care Provider] - (web request sent on 10/04/16)
--- NOTE | 2016-10-03 12:12 | Internal Med Progress Note ---
Date of Encounter: 10/03/16 Time of Encounter: 09:30 - Assessment and plan (1) Chest pain Current Visit: Yes Status: Acute Assessment and plan: Patient with multiple admisions for non-specific chest pain Atypical due to location around [facility], but patient also states it resolved with rest Troponin since admission adynamic with BP on arrival SBP>200, DBP>120 as well as DARLYN Stress test 05/2016: Gated EF 35%, small area, moderate intensity fixed perfusion defect in LV apex representing small area infarct. Imaging negative for reversible ischemia. TTE 05/2016: EF 35-40% with global hypokenesis. No significant valvular disease Cardiology has been consulted and plans a [facility] tomorrow NPO from midnight Continue IMdur, , Statin, BB, ACEI Qualifiers: Chest pain type: other chest pain Qualified Code(s): R07.89 - Other chest pain; R07.8 - Other chest pain (2) DARLYN (acute kidney injury) Current Visit: Yes Status: Acute Assessment and plan: DARLYN has resolved Restarted on Lisinopril 10/02 at 10mg daily Agree with increasing to home dose, renal function has been stable Avoid nephrotoxins (3) CAD (coronary artery disease) Current Visit: Yes Status: Chronic Assessment and plan: As in chest pain Continue meds Qualifiers: Coronary Disease-Associated Artery/Lesion type: bypass graft [place] vs. transplanted heart: [place] heart Associated angina: without angina Qualified Code(s): I25.810 - Atherosclerosis of coronary artery bypass graft(s) without angina pectoris (4) HLD (hyperlipidemia) Current Visit: Yes Status: Chronic Assessment and plan: Continue lipitor Qualifiers: Hyperlipidemia type: unspecified Qualified Code(s): E78.5 - Hyperlipidemia , unspecified (5) Hypertension Current Visit: Yes Status: Chronic Assessment and plan: Uncontrolled on admission but now Controlled, continue current meds Qualifiers: Hypertension type: essential hypertension Qualified Code(s): I10 - Essential (primary) hypertension (6) DM2 (diabetes mellitus, type 2) Current Visit: Yes Status: Chronic Assessment and plan: A1C 6.3% 02/2016 FS [place] controlled on admission without insulin ADA diet Sliding scale Continue to monitor Qualifiers: Diabetes mellitus complication status: with circulatory complication Diabetes mellitus complication detail: with other circulatory complications Diabetes mellitus association executive insulin use: without association executive use Qualified Code( s): E11.59 - Type 2 diabetes mellitus with other circulatory complications (7) Chronic systolic heart failure Current Visit: Yes Status: Chronic Assessment and plan: H/o ICMP. EF 35-40% on TTE 05/2016. Currently euvolemic Continue ACEI, BB, Lasix (8) Paroxysmal a-fib Current Visit: Yes Status: Chronic Assessment and plan: HR controlled On Xarelto, continue same - Subjective Interval history: Seen and evaluated at bedside 75 M with CAD s/p CABG, CHFrEF on Xarelto, HTN, admitted to observation for complains of chest pain He had very elevated blood pressure on admission , sustained for a few hours, as well as DARLYN His DARLYN has improved, he did have troponin leak 0.04, he was started on heparin per ER and was discontinued shortly afterwards He has no new complains and is awaiting LHC by cardio afua - Constitutional Vitals: Temp Pulse Resp BP Pulse Ox 98.0 F 76 16 119/70 94 10/03/16 11:25 10/03/16 11:25 10/03/16 11:25 10/03/16 11:25 10/03/16 11:25 General appearance: Present: cooperative, A&O X 3, pleasant, no acute distress - Head Head exam: Present: atraumatic, normocephalic - Eye Eye exam: Present: PERRL, conjuntiva pink, sclera anicteric Pupils: Present: PERRL - Neck Neck exam general surgery: Present: supple, trachea midline. Absent: lymphadenopathy - Respiratory Respiratory exam: Present: CTAB. Absent: accessory muscle use, rales, rhonchi, wheezes - Cardiovascular Cardiovascular exam: Present: RRR, +S1, +S2. Absent: diastolic murmur, gallop, rubs, systolic murmur - GI/Abdominal GI/Abdominal exam: Present: normal bowel sounds, soft, no peritoneal signs. Absent: distended, tenderness - Extremities Exam Extremities exam: Present: warm, radial pulses palpable and symetrical. Absent : calf tenderness, cyanotic, pedal edema - Neurological Exam Neurological exam: Present: alert, CN II-XII intact, oriented X3, no focal deficits. Absent: pronater drift, facial droop, speech deficit - Skin Skin exam: Present: dry, intact Internal Medicine: Result - Labs CBC & Chem 7: 10/02/16 03:15 10/03/16 03:55 Labs: BMP 10/03/16 03:55 Sodium 138 Potassium 4.0 Chloride 105 Carbon Dioxide 25 BUN 24 Creatinine 1.21 Glucose 141 H Calcium 9.6 Cardiac Enzymes 10/02/16 Range/Units 13:30 Troponin I 0.02 (0-0.03) ng/mL - ABG Interpretation ABG results: PT/INR, D-dimer PT 11.6 Seconds (9.4-12.1) 10/01/16 16:47 - VTE Reasons for not Prescribing Prophylaxis: Not indicated-Anticoagulated or INR therapeutic Documentation of Mechanical Device: Intermittent pneumatic compression device Consult Discharge Plan - Plan Referrals: Lance Cronin MD [Primary Care Provider] - (web request sent on 10/04/16)
[2016-10-03] MEDS: *HR* Rivaroxaban 15 MG TABLET PO SCH (15:32)
--- NOTE | 2016-10-04 06:46 | Electrocardiograph Report ---
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
[2016-10-04] MEDS: Isosorbide MONOnitrate (24 HR) 30 MG TAB.ER.24H PO SCH (07:55)
[2016-10-04] MEDS: amLODIPine 5 MG TABLET PO SCH (07:57)
[2016-10-04] MEDS: Furosemide 40 MG TABLET PO SCH (07:58)
[2016-10-04] MEDS: Aspirin Enteric Coated 81 MG Tablet PO SCH (07:58)
[2016-10-04] MEDS ORDERED: Nitroglycerin 1,000 MCG/10 ML VIAL IV ONE (08:15)
[2016-10-04] MEDS ORDERED: Heparin 1,000 UNITS/500 mL NS 500 ML ONE (08:15)
[2016-10-04] MEDS ORDERED: *HR* Heparin 10,000 UNIT/10 ML VIAL ONE (08:15)
[2016-10-04] MEDS ORDERED: Verapamil 5 MG/2 ML VIAL ONE (08:15)
[2016-10-04] MEDS ORDERED: 0.9 % Sodium Chloride 1,000 ML ONE ×2 (08:15→09:57)
[2016-10-04] MEDS: Ondansetron 4 MG/2 ML VIAL IVP PRN ×2 (09:27→19:48)
[2016-10-04] MEDS ORDERED: *HR* FentaNYL (PF) 100 MCG/2 ML VIAL ONE (10:00)
[2016-10-04] MEDS ORDERED: *HR* Midazolam HCl 2 MG/2 ML VIAL ONE (10:00)
[2016-10-04] MEDS ORDERED: methylPREDNISolone 125 MG/2 ML VIAL ONE (10:00)
--- NOTE | 2016-10-04 10:07 | Pre-Sedation Evaluation ---
Pre-sedation evaluation - Pre-sedation checklist Date of procedure: 10/04/16 Procedure: Cardiac Cath Recent Vitals: Last Vital Signs Temp 97.5 F L 10/04/16 06:38 Pulse 67 10/04/16 06:38 Resp 17 10/04/16 06:38 BP 136/75 10/04/16 06:38 Pulse Ox 96 10/04/16 08:02 H&P (including ROS) documented in medical record: Yes Previous reaction to sedatives/anesthetics: No Dietary Status: NPO after Midnight Dentition: No loose teeth or bridges, poor dentition ASA Classification *see protocol: CLASS II-Mild systemic disease Plan of Care: Pt appropriate candidate for procedure/moderate/conscious sedation , Risks/benefits of procedure/sedation discussed w/ patient/family
[2016-10-04] MEDS ORDERED: Tirofiban 12.5 MG/250ML 12.5 MG/250 ML BAG ONE (10:42)
[2016-10-04] MEDS ORDERED: *HR* Ticagrelor 90 MG TABLET ONE (11:27)
--- NOTE | 2016-10-04 11:39 | Invasive Diagnostic Lab Proc ---
Name: Yue Pizarro Date of Study: 10/04/2016 Date: 1940 Ht: 70.0in Medical Record#: [id number] Age: 75 Wt: 205.47lb Gender: Male BSA: 2.11 Order #: [id number] BMI: 29.48 Physicians Procedure Physician: Terrance Maldonado MD, FACC Referring MD: Referring MD: Staff Name Position Time In Rosa Leon RT (R) Monitor 09:59 AM Zoey Schumacher RN Rubber Goods Finisher 10:00 AM Asuncion Mccoy RN Rubber Goods Finisher 10:00 AM Franky Tapia RT (R) Scrub 10:00 AM Indications Indication Unstable Angina Procedures Performed Procedure L HRT ARTERY/VENTRICLE ANGIO PRQ CARDIAC ANGIOPLAST 1 ART PRQ CARD JATINDER STENT W/ANGIO 1 VSL Pre-Procedure Checklist Informed consent is complete signed and on chart. H&P is on chart. ID band is on and ID verified with patient. Patient NPO for procedure The procedure was described for the patient and questions were answered. Blood Pressure: 136/75 ECG is on chart. Rhythm: Paced Plan of Care Patient will tolerate the procedure without complications. Adequate level of comfort will be maintained. Hemodynamics will remain stable Patient will recover from procedure without complications. Respiratory function will be maintained. Cardiac rhythm will remain stable. Patient temperature will be maintained. Patient and/or family have verbalized understanding of the procedure. Patient Education Chief Complaint/Reason for Test: Cardiac Cath Developmental Category: Geriatric (65+ years) Developmentally Appropriate for Age: Yes Learning Barriers: None Education Needs: Procedure Education Method: Verbal Information Taught: Cardiac Cath Educational Evaluation: Able to repeat information Intravenous Access Time IV Size Location DC'd Fluid/Drip Rate Units RN 10:10 AM 20g 1 1/" Patent On Arrival Lt Antecubital 0.9NaCl ml/hr Allergies Oxycodone tramadol Warfarin PERCOCET,TRAMADOL IVP DYE (IODINE) Vital Signs Time BP (mmHg) HR (bpm) O2 Sat. RR (bpm) LOC 136 / 75 67 96 % 17 5 = Fully awake and oriented or at pre-proc level 10:05 AM / % 4 = Oriented but drowsy 10:05 AM / % 4 = Oriented but drowsy 10:21 AM / % 4 = Oriented but drowsy 10:36 AM / % 10:06 AM 136 / 70 62 96 % 12 10:11 AM 116 / 69 69 99 % 17 10:16 AM 111 / 67 69 96 % 25 10:21 AM 101 / 63 67 93 % 14 10:26 AM 120 / 72 61 95 % 18 10:31 AM 124 / 68 60 95 % 22 10:36 AM 120 / 71 63 95 % 15 10:41 AM 128 / 76 63 96 % 15 10:46 AM 125 / 73 59 97 % 19 10:51 AM 126 / 77 61 98 % 20 10:56 AM 136 / 83 64 98 % 16 11:01 AM 125 / 78 60 97 % 19 11:06 AM 139 / 83 60 98 % 16 11:11 AM 140 / 82 62 96 % 17 11:16 AM 142 / 84 60 97 % 18 11:21 AM 148 / 90 63 97 % 28 Procedural Medications Time Medication Dose Units Method Given By 10:05 AM Benadryl 50 mg Intravenous Zoey Schumacher RN 10:06 AM Solu-medrol 125 mg Intravenous Zoey Schumacher RN 10:08 AM Versed 2 mg Intravenous Zoey Schumacher RN 10:08 AM Fentanyl 25 mcg Intravenous Zoey Schumacher RN 10:19 AM Oxygen 4 L/min nasal cannula Zoey Schumacher RN 10:22 AM Lidocaine 2% 19 ml Subcutaneous Terrance Maldonado MD, FACC 10:41 AM Heparin 4000 units Intravenous Zoey Schumacher RN 10:42 AM Aggrastat Bolus: 46 ml Intravenous Zoey Schumacher RN 10:43 AM Aggrastat 5mg/100ml 16.5 ml Intravenous Zoey Schumacher RN 10:46 AM Nitroglycerin 200 mcg Intracoronary Terrance Maldonado MD 11:00 AM Nitroglycerin 200 mcg Intracoronary Terrance Maldonado MD 11:21 AM Brilinta 180 mg Orally Zoey Schumacher RN ASA Classification: CLASS II- Mild systemic disease (i.e. well-controlled diabetes, hypertension, asthma, cigarette smoking) Erasmo Score Preprocedure Postprocedure Activity 2- Moves 4 extremities sustained head lift Activity 2- Moves 4 extremities sustained head lift Circulation 2- SBP +/= 20 points of pre-anesthetic level Circulation 2- SBP +/= 20 points of pre-anesthetic level Consciousness 2- Awake and alert oriented x 3 Consciousness 2- Awake and alert oriented x 3 O2 Saturation 2- Able to maintain O2 satruation of 92% on room air O2 Saturation 2- Able to maintain O2 satruation of 92% on room air Respiratory 2- Able to deep breathe and cough well Respiratory 2- Able to deep breathe and cough well Total Score 10 Total Score 10 Contrast Agent: Isovue Diagnostic Contrast: 183 ml Total Contrast: 183 ml Fluoro Dose: 1911 mGy Activated Clotting Time Time Seconds to Clot 10:41 AM 159 11:27 AM 241 Procedure Log Time Note Enter By 09:59 AM Pt arrived to construction or leak gang laborer 2 at 09:59 [email or web address] 10:00 AM Rosa Leon RT (R) Position: Monitor Time in: 09:59 [email or web address] 10:00 AM Zoey Schumacher RN Position: Rubber Goods Finisher Time in: 10:00 [email or web address] 10:00 AM Asuncion Mccoy RN Position: Rubber Goods Finisher Time in: 10:00 [email or web address] 10:00 AM Franky Tapia RT (R) Position: Scrub Time in: 10:00 [email or web address] 10:00 AM Patient charges- Angio tray pack, Navilyst 3mm J, Pulse Oximetry and ACIST tubing and transducer [email or web address] 10:00 AM Case Delayed No [email or web address] 10:00 AM Hair removed from procedure site in holding area using clippers. Right wrist prepped with Chloraprep by Abdullahi Marin RN, safety strap applied then patient was draped. Skin intact. [email or web address] 10:00 AM Hair removed from procedure site in holding area using clippers. Right groin prepped with Chloraprep by Abdullahi Marin RN, safety strap applied then patient was draped. Skin intact. [email or web address] 10:00 AM Physician arrived 10:00 [email or web address] 10:00 AM ASA Class CLASS II- Mild systemic disease (i.e. well-controlled diabetes, hypertension, asthma, cigarette smoking) [email or web address] 10:00 AM Jesse and edson completed [email or web address] 10:01 AM Sign in performed according to hospital policy. [email or web address] 10:01 AM Procedure start 10:01 [email or web address] 10:05 AM CathStat 10:05 AM Vitals capture started with the following parameters, Patient=Adult, Interval=5 min, Initial Btastfwp=699 mmHg, Deflation Rate=5 mmHg, Cuff placed on Right Arm 10:05 AM Time: 10:05 Patient comfortable and pain free: Yes [email or web address] 10:05 AM Time: 10:05LOC: 4 = Oriented but drowsy [email or web address] 10:06 AM Time: 10:05 Benadryl 50 mg Intravenous Given by Zoey Schumacher RN [email or web address] 10:06 AM HR=62 bpm, QPKI=454/70 mmhg, SpO2=96.0 %, Resp=12 B/min 10:06 AM Time: 10:06 Solu-medrol 125 mg Intravenous Given by Zoey Schumacher RN [email or web address] 10:08 AM Time: 10:08 Versed 2 mg Intravenous Given by Zoey Schumacher [email or web address] 10:08 AM Time: 10:08 Fentanyl 25 mcg Intravenous Given by Zoey Schumacher [email or web address] 10:09 AM Pressure channel 1 zeroed. 10:11 AM Recorded ECG: HR=69 Condition=Condition 1 10:11 AM HR=69 bpm, TMOQ=238/69 mmhg, SpO2=99.0 %, Resp=17 B/min, Comment=Paced 10:15 AM Pressure channel 1 zeroed. 10:16 AM HR=69 bpm, QHCL=277/67 mmhg, SpO2=96.0 %, Resp=25 B/min, Comment=Paced 10:20 AM Time: 10:19 Oxygen on at 4 L/min per nasal cannula by Zoey Schumacher RN [email or web address] 10:21 AM HR=67 bpm, IKEJ=040/63 mmhg, SpO2=93.0 %, Resp=14 B/min, Comment=Paced 10:21 AM Time: 10:05LOC: 4 = Oriented but drowsy [email or web address] 10:21 AM Time: 10:05 Patient comfortable and pain free: Yes [email or web address] 10:22 AM Time out performed according to hospital policy [email or web address] 10:22 AM Time: : 19 ml Lidocaine 2% to right groin Subcutaneous Given by Terrance Maldonado MD, [facility] [email or web address] 10:23 AM Access obtained by percutaneous puncture. 5Fr 10cm Terumo Wittman sheath placed in right Femoral artery. [id number] [email or web address] 10:23 AM 0.035 145cm Navilyst 3mmJ wire [id number] [email or web address] 10:23 AM 5Fr FL 4 catheter inserted over the wire [facility] [email or web address] 10:24 AM LCA angiography performed in multiple views. [email or web address] 10:24 AM Recorded Pressure: Ao, HR=65, Condition=Condition 1 (Aorta) Ao 98/67/81 10:25 AM Lesion found in LMCA. Pre Stenosis: Pre XENA Flow: [email or web address] 10:25 AM Lesion found in Proximal LAD. Pre Stenosis: Pre XENA Flow: [email or web address] 10:25 AM Lesion found in Mid LAD. Pre Stenosis: 100 Pre XENA Flow: [email or web address] 10:26 AM Lesion found in Proximal Circumflex. Pre Stenosis: 70 Pre XENA Flow: [email or web address] 10:26 AM Catheter removed [email or web address] 10:26 AM 5Fr FR 4 catheter inserted over the wire DN [email or web address] 10:26 AM HR=61 bpm, EQUX=506/72 mmhg, SpO2=95.0 %, Resp=18 B/min, Comment=Paced 10:26 AM Left CRISTO to the LAD angio performed in multiple views. [email or web address] 10:27 AM Catheter repositioned for RCA and grafts. [email or web address] 10:29 AM SVG to the 1st OM angio performed in multiple views. [email or web address] 10:31 AM HR=60 bpm, AKGN=316/68 mmhg, SpO2=95.0 %, Resp=22 B/min, Comment=Paced 10:31 AM Catheter removed [email or web address] 10:31 AM 5Fr 3DRC catheter inserted over the wire [id number] [email or web address] 10:32 AM Recorded Pressure: Ao, HR=60, Condition=Condition 1 (Aorta) Ao 110/67/85 10:32 AM RCA angiography performed in multiple views. [email or web address] 10:33 AM Recorded Pressure: Ao, HR=60, Condition=Condition 1 (Aorta) Ao 98/63/80 10:35 AM Coronary Dominance: right [email or web address] 10:35 AM Catheter removed [email or web address] 10:35 AM 5Fr Pigtail catheter inserted over the wire [facility] [email or web address] 10:36 AM HR=63 bpm, EBZP=030/71 mmhg, SpO2=95.0 %, Resp=15 B/min, Comment=Paced 10:36 AM Time: 10:21 Patient comfortable and pain free: Yes [email or web address] 10:36 AM Time: 10:21LOC: 4 = Oriented but drowsy [email or web address] 10:36 AM Catheter selectively placed in left ventricle [email or web address] 10:36 AM Pressure channel 1 zero failed. 10:36 AM Recorded Pressure: LV, HR=82, Condition=Condition 1 (Left Ventricle) LV 98/11/15 10:37 AM Recorded Pressure: LV, Ao, HR=63, Condition=Condition 1 (Left Ventricle) LV 124/0/8, (Aorta) Ao 119/60/83 10:37 AM Catheter removed [email or web address] 10:37 AM Sheath exchanged for a 6 Fr 11 cm Cordis Nakita sheath [id number] [email or web address] 10:39 AM 6Fr 3DRC SH Cordis guide catheter was used to cannulate the PCI vessel successfully. reused? No [email or web address] 10:39 AM Pressure channel 1 zeroed. 10:39 AM Inflation device was opened. [email or web address] 10:41 AM HR=63 bpm, WLUA=751/76 mmhg, SpO2=96.0 %, Resp=15 B/min, Comment=Paced 10:41 AM At 10:41 the ACT was 159 seconds. [email or web address] 10:41 AM Time: 10:41 Heparin 4000 units Intravenous Given by Zoey Schumacher RN [email or web address] 10:43 AM Time: 10:42 Aggrastat Bolus: 46 ml Intravenous Given by Zoey Schumacher RN Spangler pump [email or web address] 10:43 AM .014 [place] 190cm guide wire across target lesion- successful. reused? No [email or web address] 10:46 AM HR=59 bpm, BTGM=467/73 mmhg, SpO2=97.0 %, Resp=19 B/min, Comment=Paced 10:46 AM Time: 10:43 Aggrastat 5mg/100ml 16.5 ml Intravenous Given by Zoey Schumacher RN Spangler pump [email or web address] 10:46 AM Time: 10:46 Nitroglycerin 200 mcg Intracoronary Given by Terrance Maldonado MD [email or web address] 10:47 AM 3.0 mm x 12 mm Emerge Monorail balloon across target lesion- successful. reused? No [email or web address] 10:47 AM Recorded Pressure: Ao, HR=61, Condition=Condition 1 (Aorta) Ao 105/55/76 10:48 AM Balloon inflated @ 14 wendi for 18 seconds [email or web address] 10:49 AM Balloon inflated @ 14 wendi for 18 seconds [email or web address] 10:49 AM Balloon catheter removed intact. [email or web address] 10:50 AM 3.0mm x 16mm Synergy drug-eluting stent across target lesion- successful Lot # [email or web address] 10:51 AM HR=61 bpm, EQFO=175/77 mmhg, SpO2=98.0 %, Resp=20 B/min, Comment=Paced 10:51 AM 3.0mm x 16mm Synergy drug-eluting stent across target lesion- successful Lot #[id number] [email or web address] 10:51 AM Time: 10:36 Patient comfortable and pain free: [email or web address] 10:52 AM .014 [place] 180cm guide wire across target lesion- successful. reused? No [email or web address] 10:56 AM HR=64 bpm, KUQX=103/83 mmhg, SpO2=98.0 %, Resp=16 B/min, Comment=Paced 10:57 AM Stent delivery system removed intact. [email or web address] 11:00 AM Time: 11:00 Nitroglycerin 200 mcg Intracoronary Given by Terrance Maldonado MD [email or web address] 11:00 AM Balloon re-inserted. [email or web address] 11:01 AM HR=60 bpm, JHPD=866/78 mmhg, SpO2=97.0 %, Resp=19 B/min, Comment=Paced 11:03 AM Balloon inflated @ 12 wendi for 32 seconds [email or web address] 11:04 AM Lesion found in Proximal RCA. Pre Stenosis: 70 Pre XENA Flow: [email or web address] 11:05 AM Balloon catheter removed intact. [email or web address] 11:06 AM HR=60 bpm, XOIT=836/83 mmhg, SpO2=98.0 %, Resp=16 B/min, Comment=Paced 11:06 AM stent re-inserted [email or web address] 11:11 AM HR=62 bpm, PHTF=981/82 mmhg, SpO2=96.0 %, Resp=17 B/min, Comment=Paced 11:14 AM Stent deployed @ 16 wendi for 10 seconds [email or web address] 11:15 AM Stent delivery system removed intact. [email or web address] 11:15 AM Guide wire removed intact. [email or web address] 11:15 AM 3.0 mm x 15mm NC Trek Rx balloon across target lesion- successful. reused? No [email or web address] 11:16 AM HR=60 bpm, CDYA=655/84 mmhg, SpO2=97.0 %, Resp=18 B/min, Comment=Paced 11:17 AM Balloon inflated @ 16 wendi for 13 seconds [email or web address] 11:17 AM Balloon inflated @ 16 wendi for 19 seconds [email or web address] 11:19 AM Balloon catheter removed intact. [email or web address] 11:19 AM Guide wire removed intact. [email or web address] 11:20 AM Guide catheter removed intact. [email or web address] 11:21 AM HR=63 bpm, NGKL=648/90 mmhg, SpO2=97.0 %, Resp=28 B/min, Comment=Paced 11:21 AM Time: 11:21 Brilinta 180 mg Orally Given by Zoey Schumacher RN [email or web address] 11:22 AM Procedure completed at 11:22 [email or web address] 11:23 AM Sign out completed: Radiation Dose 1911.33 mGy Fluoro Time: 20.9 Isovue 370 - 200ml contrast 183 ml given by Terrance Maldonado MD, [facility]. Complications: NoneCardiac Rehab Consult needed: YesConfirmed administered medications: Yes [email or web address] 11:23 AM Isovue 370 - 200ml,1 Bottle(s) used. [email or web address] 11:23 AM Sheath left in place to be pulled on floor/holding areaV+Pad [email or web address] 11:23 AM Post ECG Paced [email or web address] 11:23 AM Post Blood Pressure 148/90 [email or web address] 11:23 AM Information taught Cardiac Cath and PCI [email or web address] 11:23 AM Education needs Procedure, Plan of Care, and Disease Process [email or web address] 11:23 AM Learning barriers :None [email or web address] 11:23 AM Education Methods Verbal [email or web address] 11:23 AM Education evaluation Able to repeat information [email or web address] 11:23 AM Site status No bleeding/hematoma - Rt Groin as reported by Franky Tapia RT (R) at 11:23 [email or web address] 11:23 AM Opsite applied [email or web address] 11:23 AM Delay to floor No [email or web address] 11:24 AM Family placed in not available. [email or web address] 11:24 AM Complications: None [email or web address] 11:30 AM Report given to Sandoval KOLB Pt taken to 2N Room #9. 11:30 [email or web address] 11:30 AM Patient out of room: 11:30 [email or web address] Complications Complication None None Hemodynamics Pressures Site Systolic/A Wave Diastolic/V Wave Mean AO 98 67 81 AO 110 67 85 AO 98 63 80 LV 98 11 15 LV 124 0 8 AO 119 60 83 AO 105 55 76 Post Procedure Information Blood Pressure: 148/90 mmHg Rhythm: Paced Post procedural instructions were given Site Checks Time Location Status Staff Sheath In? Note 11:23 AM Rt Groin No bleeding/hematoma Franky Tapia RT (R) Pulses Time Site Pre-Procedure Post-Procedure Note Bilateral DP 1+ 1+ Bilateral radial 2+ Updated by Rosa Leon RT(R) on 10/04/2016 11:33:20 AM electronically signed on 10/04/2016 11:33:48 AM with status of Final
[2016-10-04] MEDS ORDERED: Tirofiban 12.5 MG/250ML 12.5 MG/250 ML BAG IVC SCH (11:45)
[2016-10-04 12:27] LABS: Hemoglobin A1C 7.2 %
[2016-10-04] MEDS: *HR* Morphine 2 MG/ML SYRINGE IVP PRN (13:27)
--- NOTE | 2016-10-04 15:48 | Internal Med Progress Note ---
<Marquis Wisdomew - Last Filed: 10/04/16 18:07> Date of Encounter: 10/04/16 Time of Encounter: 10:30 - Assessment and plan (1) Atypical chest pain Current Visit: No Status: Acute Assessment and plan: -Most recent cardiac workup was done in May 2016 which included a stress echocardiogram showing ejection fraction of 35%, global hypokinesis, no valvular dysfunction - History of CABG in 2002 - Cardiology following, appreciate recommendations - Catheterization performed this afternoon, with placement of 1 drug-eluting stent. -XENA score 4 - We will continue to monitor for an additional day given left heart catheterization performed this afternoon. (2) Congestive heart failure Current Visit: No Status: Chronic Assessment and plan: - Patient is not currently complaining of shortness of breath - Patient has no signs of lower extremity edema, fluid overload - Chest x-ray in emergency department showed no signs of fluid overload - Continue home medications and monitor Qualifiers: Congestive heart failure type: systolic Congestive heart failure chronicity : chronic Qualified Code(s): I50.22 - Chronic systolic (congestive) heart failure (3) CAD (coronary artery disease) Current Visit: Yes Status: Chronic Assessment and plan: - Catheterizations afternoon with 1 drug-eluting stent placement. - Continue new home atorvastatin 40 mg Qualifiers: Coronary Disease-Associated Artery/Lesion type: bypass graft [place] vs. transplanted heart: [place] heart Associated angina: without angina Qualified Code(s): I25.810 - Atherosclerosis of coronary artery bypass graft(s) without angina pectoris (4) HTN (hypertension) Current Visit: No Status: Chronic Assessment and plan: - Controlled this morning at 136/75 - 2 medications of Norvasc, Lasix, lisinopril, carvedilol Qualifiers: Hypertension type: essential hypertension Qualified Code(s): I10 - Essential (primary) hypertension (5) DVT prophylaxis Current Visit: No Status: Acute Assessment and plan: - Continue Xerelto 15 mg daily (6) DM2 (diabetes mellitus, type 2) Current Visit: Yes Status: Chronic Assessment and plan: A1C 7.2% today FS moslty controlled on admission without insulin ADA diet Sliding scale Continue to monitor - Outpatient follow-up for possible gastroparesis Qualifiers: Diabetes mellitus complication status: with circulatory complication Diabetes mellitus complication detail: with other circulatory complications Diabetes mellitus termite exterminator insulin use: without skilled nursing use Qualified Code( s): E11.59 - Type 2 diabetes mellitus with other circulatory complications - Time Spent With Patient 25 - 35 minutes - Subjective Interval history: Patient was seen and examined at bedside this morning. He reports that he is still currently experiencing some reproducible chest pain in the substernal region. He denies any symptoms of shortness breath, fevers, chills, exertional chest pain, diaphoresis, vomiting. Does admit to some nausea immediately following meals, as well as some abdominal tenderness with early satiety. He has not currently had a meal yet this morning, as he is scheduled for a left heart catheterization this afternoon. - Constitutional Vitals: Temp Pulse Resp BP Pulse Ox 97.9 F 68 17 123/73 95 10/04/16 15:09 10/04/16 15:09 10/04/16 15:09 10/04/16 15:09 10/04/16 15:09 General appearance: Present: cooperative, A&O X 3, pleasant, no acute distress Exam: Gen.: Vitals noted. No acute distress. AAOx3 HEENT: PERRL/EOMI, oropharynx clear, Normocephalic, atraumatic Neck: Supple. No adenopathy. Cardiac: RRR, occasional PVCs, no murmur, +S1/S2 Pulmonary: CTA bilaterally, no wheezes, rales or rhonchi, equal chest expansion Abdomen: Tenderness to palpation in the epigastric region, BS noted, no guarding Back: Nontender throughout. MSK: Reproducible chest pain upon palpation and pressure without radiation, worse substernally. ROM intact, no joint swelling noted Extremities: no BLE edema, nontender calf, no cyanosis or clubbing Neuro: A&Ox3, moves all extremities, no focal deficits Psych: Appropriate mood and behavior Internal Medicine: Result - Labs CBC & Chem 7: 10/02/16 03:15 10/03/16 03:55 - ABG Interpretation ABG results: PT/INR, D-dimer PT 11.6 Seconds (9.4-12.1) 10/01/16 16:47 - VTE Reasons for not Prescribing Prophylaxis: Not indicated-Anticoagulated or INR therapeutic Documentation of Mechanical Device: Intermittent pneumatic compression device Consult Discharge Plan - Plan Referrals: Terrance Maldonado MD [Partnered Physician] - (Office will call patient at home with his appointment) Lance Cronin MD [Primary Care Provider] - 10/11/16 3:15 pm (web request sent on 10/04/16) <Atul Gardner T - Last Filed: 10/04/16 18:13> Date of Encounter: 10/04/16 - Assessment and plan (1) Chest pain Current Visit: Yes Status: Acute Qualifiers: Chest pain type: other chest pain Qualified Code(s): R07.89 - Other chest pain; R07.8 - Other chest pain (2) DARLYN (acute kidney injury) Current Visit: Yes Status: Acute (3) CAD (coronary artery disease) Current Visit: Yes Status: Chronic Qualifiers: Coronary Disease-Associated Artery/Lesion type: bypass graft [place] vs. transplanted heart: [place] heart Associated angina: without angina Qualified Code(s): I25.810 - Atherosclerosis of coronary artery bypass graft(s) without angina pectoris (4) HLD (hyperlipidemia) Current Visit: Yes Status: Chronic Qualifiers: Hyperlipidemia type: unspecified Qualified Code(s): E78.5 - Hyperlipidemia , unspecified (5) Hypertension Current Visit: Yes Status: Chronic Qualifiers: Hypertension type: essential hypertension Qualified Code(s): I10 - Essential (primary) hypertension (6) DM2 (diabetes mellitus, type 2) Current Visit: Yes Status: Chronic Qualifiers: Diabetes mellitus complication status: with circulatory complication Diabetes mellitus complication detail: with other circulatory complications Diabetes mellitus termite exterminator insulin use: without termite exterminator use Qualified Code( s): E11.59 - Type 2 diabetes mellitus with other circulatory complications (7) Chronic systolic heart failure Current Visit: Yes Status: Chronic (8) Paroxysmal a-fib Current Visit: Yes Status: Chronic - Constitutional Vitals: Temp Pulse Resp BP Pulse Ox 97.9 F 68 17 123/73 95 10/04/16 15:09 10/04/16 15:09 10/04/16 15:09 10/04/16 15:09 10/04/16 15:09 Internal Medicine: Result - Labs CBC & Chem 7: 10/02/16 03:15 10/03/16 03:55 - ABG Interpretation ABG results: PT/INR, D-dimer PT 11.6 Seconds (9.4-12.1) 10/01/16 16:47 - Attending Attestation I examined this patient and my medical decision-making was reviewed with the Resident Physician on 10/04/16. I agree with the documented findings, disposition and treatment plan as described except to the extent set forth below. Seen and evaluated at bedside 75 M with CAD s/p CABG, CHFrEF on Xarelto, HTN, admitted to observation for complains of chest pain He had very elevated blood pressure on admission , sustained for a few hours, as well as DARLYN His DARLYN has improved, he did have troponin leak 0.04, he was started on heparin per ER and was discontinued shortly afterwards He is seen with the team, s/p LHC with placement of JATINDER to RCA He is clinically stable Continue current plan of care Rest of details as in resident's documentation
[2016-10-04] MEDS: *HR* Rivaroxaban 15 MG TABLET PO SCH (17:53)
[2016-10-05] MEDS: *HR* Morphine 2 MG/ML SYRINGE IVP PRN (00:16)
[2016-10-05] MEDS: Acetaminophen 325 MG TABLET PO PRN (04:02)
[2016-10-05] MEDS: Ondansetron 4 MG/2 ML VIAL IVP PRN (04:07)
[2016-10-05 05:38] LABS: Hematocrit 45.8 % (37.5-50.1); Hemoglobin 15.2 g/dL (12.9-16.9); Mean Corpuscular HGB Conc 33.2 g/dL (31.6-35.5); Mean Corpuscular Hemoglobin 28.1 pg (28.0-33.3); Mean Corpuscular Volume 84.8 fL (83.0-100.0); Mean Platelet Volume 11.2 fL (9.4-12.4); Platelet Count 176 K/mcL (140-400); Red Cell Distribution Width 13.2 % (11.5-14.5)
[2016-10-05 06:05] LABS: Calcium 9.8 mg/dL (8.6-10.8); Potassium 4.1 mEq/L (3.5-4.5)
[2016-10-05] MEDS: Furosemide 40 MG TABLET PO SCH (08:06)
[2016-10-05] MEDS: amLODIPine 5 MG TABLET PO SCH (08:07)
[2016-10-05] MEDS: Isosorbide MONOnitrate (24 HR) 30 MG TAB.ER.24H PO SCH (08:07)
[2016-10-05] MEDS: Aspirin Enteric Coated 81 MG Tablet PO SCH (08:07)
[2016-10-05] MEDS ORDERED: amLODIPine 5 MG TABLET PO SCH ×2 (08:18→08:19)
--- NOTE | 2016-10-05 08:54 | Invasive Diagnostic Lab ---
Name: Yue Pizarro Date of Study: 10/04/2016 Date: 1940 Ht: 177.8 cm /70.0 in Medical Record#: [id number] Age: 75 Wt: 93.2 kg / 205.47 lb Account/Order#: [id number] Gender: Male BSA: 2.11 Order #: [id number] Fluoro Dose: 1911 mGy BMI: 29.48 Procedure Physician: Terrance Maldonado MD, [facility] Referring MD: Referring MD: Procedures Performed: LEFT HEART CATH PTCA Single Major Vessel Stent w/ PTCA Single Major Vessel Iliofemoral angiography Indications: Unstable Angina Impressions: There is severe three vessel coronary artery disease. Patient had successful PTCA/Drug-Eluting Stent placement in the ostial proximal RCA. S/P CABG 2 of 2 patent bypass grafts. Patient had successful PTCA in the distal RCA. Recommendations: Optimal medical therapy of patient's disease. Aggressive risk factor modification. History/Risk Factors: CAD CVA asthma Diabetes Hypertension Dyslipidemia CHF Prior [place] Procedure Access obtained in the right Femoral artery by percutaneous puncture Patient had successful PTCA/Drug-Eluting Stent placement in the proximal RCA.Patient had successful PTCA in the distal RCA. Complications: None, None Contrast: Isovue 183ml Hemodynamics: Pressures Site Systolic/ A Wave Diastolic/ V Wave End Diastolic/ Mean HR AO 98 67 81 65 AO 110 67 85 60 AO 98 63 80 60 LV 98 11 15 82 LV 124 0 8 60 AO 119 60 83 69 AO 105 55 76 61 Coronary Dominance: right Lesion Findings/Interventions * Left Main Coronary Artery There is a 80% stenosis in the LMCA. * Left Anterior Descending There is a 90% stenosis in the Proximal LAD. There is a 100% stenosis in the Mid LAD. * Circumflex There is a 70% stenosis in the Proximal Circumflex. * Right Coronary Artery There is a 90% stenosis in the ostial Proximal RCA. The lesion has no thrombus present. This lesion is further described as discrete. An intervention was performed on the Proximal RCA with a final stenosis of 0%. There were no lesion complications. The final XENA flow was 3. 3.0mm Synergy to ostial RCA PD with 3.0 NC to high pressure. There is a 16 mm long, 90% stenosis in the Distal RCA. The lesion has no thrombus present. This lesion is further described as discrete. An intervention was performed on the Distal RCA with a final stenosis of 0%. There were no lesion complications. The final XENA flow was 3. Additional Findings: Grafts * The left internal mammary graft to the Mid LAD is patent. XENA flow is 3. * The saphenous vein graft to the 1st Marginal is patent. XENA flow is 3. Iliofemoral angiography - appropriate sheath placement in BAKER DOUGHNUT. No severe disease in the distal EI, BAKER [place]OUGHNUT, or proximal SFA/profunda Interventional Device(s) Vessel Segment Type Name Diameter (mm) Length (mm) Distal RCA Balloon Emerge Monorail 3 12 Proximal RCA Balloon NC Trek Rx 3 15 Proximal RCA Drug Eluting Stent Synergy 3 16 Proximal RCA Balloon Emerge Monorail 3 12 Updated by Rosa Leon RT(R) on 10/04/2016 11:32:00 AM Terrance Maldonado MD, FACC electronically signed on 10/05/2016 8:47:35 AM with status of Final
[2016-10-05] MEDS ORDERED: 0.9 % Sodium Chloride 1,000 ML IVC SCH (09:15)
[2016-10-05 10:21] LABS: Bilirubin,Urine Negative (Negative); Blood,Urine Negative (Negative); Clarity,Urine Clear (Clear); Color,Urine Yellow (Yellow); Glucose,Urine (UA) Normal (Normal); Ketones,Urine Negative (Negative); Leukocyte Esterase,Urine Negative (Negative); Nitrite,Urine Negative (Negative); PH,Urine 5.5 pH Units (5.0-8.0); Protein,Urine 100 mg/dL (Neg-Trace); Specific Gravity,Urine > 1.030 (1.010-1.025); Urobilinogen,Urine Normal (Normal)
[2016-10-05 10:31] LABS: Bacteria,Urine Many per hpf (None-Few); Mucus,Urine Few (Few); Squamous Epithelial Cell,Urine Few per lpf (None-Few)
[2016-10-05 10:32] LABS: RBC,Urine 0-3 per hpf (0-3)
--- NOTE | 2016-10-05 14:22 | Cardiology Progress Note ---
Date of Encounter: 10/05/16 Time of Encounter: 14:18 Assessment and Plan (1) Chest pain Current Visit: No Status: Acute Recurrent chest pain. Chest pain symptoms with typical and atypical features. Pain increases with exertion and is relieved with rest. Underwent LHC and received JATINDER to his ostial RCA and PTCA to the distal RCA. Patent 2/2 bypass grafts. TTE 05/2016: EF 35-40% with global hypokenesis. No significant valvular disease. Continue asa, plavix, statin, and bb. Importance of DAPT uninterrupted for minimum one year discussed. He will be on triple therapy with history of afib. Increased risk of bleeding discussed and he voiced understanding. Activity restrictions discussed. No lifting over 10 lbs for one week. No driving for one week. No tub baths for one week. Showers are ok. Ok for d/c later today from cardiology standpoint. Outpt f/u will be scheduled by [facility]. Cardiology will sign off. Qualifiers: Chest pain type: intercostal pain Qualified Code(s): R07.82 - Intercostal pain (2) CAD (coronary artery disease) Current Visit: Yes Status: Chronic H/o CABG in 2002 and previous PCI. S/p PCI to the RCA. Continue asa, statin, and bb. Qualifiers: Coronary Disease-Associated Artery/Lesion type: bypass graft [place] vs. transplanted heart: [place] heart Associated angina: without angina Qualified Code(s): I25.810 - Atherosclerosis of coronary artery bypass graft(s) without angina pectoris (3) Congestive heart failure Current Visit: No Status: Chronic H/o ICMP. EF 35-40% on TTE 05/2016. Currenty euvolemic. CHF education reviewed. Continue carvedilol and hold lisinopril for DARLYN. Give gentle IV fluid prior to discharge. Qualifiers: Congestive heart failure type: systolic Congestive heart failure chronicity : chronic Qualified Code(s): I50.22 - Chronic systolic (congestive) heart failure (4) HTN (hypertension) Current Visit: No Status: Chronic B/p improved. Continue norvasc. Qualifiers: Hypertension type: essential hypertension Qualified Code(s): I10 - Essential (primary) hypertension (5) DARLYN (acute kidney injury) Current Visit: Yes Status: Acute Mild DARLYN. Lisinopril was increased yesterday. Hold lisinopril. Recommend checking BMP in one week. Discussion w patient/family: The assessment and plan as outlined above was discussed with the patient and/or family members who expressed understanding and agreement. All questions were answered. Thank you for involving us in the care of your patient. Please call with any questions. Subjective Principal diagnosis: Chest pain Interval history: Denies recurrent chest pain. Denies problems with right groin. Ambulated in [address] way with nurse with no problems. Objective Vital Signs, Last 4 Hours Temp Pulse Resp BP Pulse Ox 10/05/16 11:30 60 10/05/16 11:22 97.4 F L 55 15 112/60 97 General: Conversant, No Apparent Distress HEENT: Atraumatic, Normocephaly, Mucus Membranes Moist Neck: No JVD, Normal carotid pulses Cardiac: Reg Rate and Rhythm, Normal S1 and S2, No Murmur Lungs: Normal Breath Sounds, No Wheeze, Rales, Rhonchi Neuro: Alert and responsive, No focal deficits noted Abdomen: Soft, Non-Tender Skin: No rashes noted on visualized skin, Other (Right groin soft. No hematoma. No redness or eccymosis. ) Musculoskeletal: No Chest Wall Tenderness Extremities: No Clubbing, No Cyanosis, No Edema, Normal Pulses Results 10/05/16 04:54 10/05/16 04:54 Lab Results 10/05/16 10/05/16 04:54 04:54 WBC 17.3 H D Hgb 15.2 Hct 45.8 Plt Count 176 Sodium 137 Potassium 4.1 Chloride 103 Carbon Dioxide 25 BUN 35 H D Creatinine 1.41 H Glucose 181 H Calcium 9.8 - Imaging and Cardiology Cardiac cath: report reviewed - VTE Reasons for not Prescribing Prophylaxis: Not indicated-Anticoagulated or INR therapeutic Documentation of Mechanical Device: Intermittent pneumatic compression device Consult Discharge Plan - Plan Referrals: Terrance Maldonado MD [Partnered Physician] - (Office will call patient at home with his appointment) Lance Cronin MD [Primary Care Provider] - 10/11/16 3:15 pm (web request sent on 10/04/16)
[2016-10-05 15:13] VITALS: BP 103/56
--- NOTE | 2016-10-05 15:53 | Discharge Summary ---
Date of Encounter: 10/05/16 Time of Encounter: 15:50 - Discharge Diagnosis (1) Chest pain Priority: Primary Status: Acute Qualifiers: Chest pain type: intercostal pain Qualified Code(s): R07.82 - Intercostal pain (2) CAD (coronary artery disease) Priority: Primary Status: Chronic Qualifiers: Coronary Disease-Associated Artery/Lesion type: bypass graft [place] vs. transplanted heart: [place] heart Associated angina: without angina Qualified Code(s): I25.810 - Atherosclerosis of coronary artery bypass graft(s) without angina pectoris (3) Chronic systolic heart failure Priority: Secondary Status: Chronic (4) DM2 (diabetes mellitus, type 2) Priority: Secondary Status: Chronic Qualifiers: Diabetes mellitus complication status: with circulatory complication Diabetes mellitus complication detail: with other circulatory complications Diabetes mellitus exterminator termite insulin use: without exterminator termite use Qualified Code( s): E11.59 - Type 2 diabetes mellitus with other circulatory complications (5) HTN (hypertension) Priority: Secondary Status: Chronic Qualifiers: Hypertension type: essential hypertension Qualified Code(s): I10 - Essential (primary) hypertension - Discharge Medications Prescriptions: amLODIPine [Norvasc] 10 mg PO DAILY #30 tab Carvedilol [Coreg] 3.125 mg PO BIDWM #30 tab Clopidogrel [Plavix] 75 mg PO DAILY #30 tab Isosorbide MONOnitrate (24 HR) [Imdur] 90 mg PO DAILY #90 Rivaroxaban [Xarelto] 15 mg PO 1700 #30 tab Home Medications: Aspirin Enteric Coated [Aspirin EC] 81 mg PO DAILY #30 tablet. 02/21/16 [Rx] Atorvastatin [Lipitor] 40 mg PO HS #30 tablet 02/21/16 [Rx] Furosemide [Lasix] 40 mg PO DAILY #30 tablet 02/21/16 [Rx] Nitroglycerin [Nitrostat] 0.4 mg SL Q5M PRN 10/01/16 [History] Carvedilol [Coreg] 3.125 mg PO BIDWM #30 tab 10/05/16 [Rx] Clopidogrel [Plavix] 75 mg PO DAILY #30 tab 10/05/16 [Rx] Isosorbide MONOnitrate (24 HR) [Imdur] 90 mg PO DAILY #90 10/05/16 [Rx] Rivaroxaban [Xarelto] 15 mg PO 1700 #30 tab 10/05/16 [Rx] amLODIPine [Norvasc] 10 mg PO DAILY #30 tab 10/05/16 [Rx] Allergies/Adverse Reactions: Allergies Oxycodone [From Percocet] Allergy (Verified 10/01/16 16:37) Hives tramadol Allergy (Verified 10/01/16 16:37) Hives Procedures/tests Complete & Pending: Procedures Performed prior 72 hours Category Date Time Status CL Cardiac Catheterization [CL] Routine Field Administrative Assistant 10/03/16 10:17 Completed Date of admission: 10/01/16 20:47 Primary care physician: Lance Cronin MD Consults: 10/02/16 01:40 Consult to Physician [CONS] Routine Consulting Provider: Terrance Maldonado Reason for Consult: chest pain, troponin elevation Call Completed: No - Patient Status Disposition: Home, Self-Care Condition: Good Functional capacity at discharge: independent ambulation Overall status at discharge: patient is progressing back to baseline - Discharge Instructions Follow Up With: Lance Cronin MD [Primary Care Provider] - 10/11/16 3:15 pm (web request sent on 10/04/16) Ander Garcia MD [Partnered Physician] - 10/26/16 10:30 am Additional Instructions: DO NOT TAKE YOUR HOME DOSE OF FUROSEMIDE TOMORROW, START TAKING IT ON Tuesday. - Diet and Activity Activity: resume usual activities as tolerated Diet: low fat, low cholesterol, low salt diet Interval History: Patient has no complaints. No chest pain. No shortness of breath. No cough. No diarrhea. Hospital course: Mr. Pizarro is a 75 year old male with a past medical history of CAD, CHF, diabetes and hypertension who presented with a chief complaint of chest pain. Troponin peaked at 0.04. 06/04 Echocardiogram showed EF 35% with global hypokinesis, no significant valvular disease. Stress test 05/2016: Gated EF 35% , small area, moderate intensity fixed perfusion defect in LV apex representing small area infarct. Imaging negative for reversible ischemia. Given patient recurrent chest pain despite outpatient medical management he underwent left heart catheterization with PCI-JATINDER to distal RCA, patent 2/2 bypass grafts. He was started on Plavix and continueD aspirin, statin and beta fuentes. He remained asymptomatic and hemodynamically stable. No telemetry events. He had a mild increase in his BUN and creatinine and he received gentle IV hydration. Not on TEE inhibitor due to acute kidney injury. WBC trended up the day of discharge. Patient was completely asymptomatic. No diarrhea. No cough. No skin lesions. No urine symptoms. plan: Follow-up in the cardiology clinic next week. Needs a repeat BMP in 1 week. Follow with primary care physician. - Time Spent with Patient Total time spent providing and/or coordinating discharge services: - Constitutional Vitals: Temp Pulse Resp BP Pulse Ox 97.5 F L 60 16 103/56 97 10/05/16 15:10 10/05/16 15:10 10/05/16 15:10 10/05/16 15:10 10/05/16 11:22 General appearance: Present: cooperative, A&O X 3, pleasant, no acute distress - Neck Neck exam general surgery: Present: supple, trachea midline. Absent: lymphadenopathy - Respiratory Respiratory exam: Present: CTAB - Cardiovascular Cardiovascular exam: Present: RRR - GI/Abdominal GI/Abdominal exam: Present: normal bowel sounds, soft. Absent: distended, tenderness Additional comments: Right groin: No petechia. No hematoma. No bruits. - Extremities Exam Extremities exam: Absent: pedal edema - Back Exam Back exam: Absent: CVA tenderness (L), CVA tenderness (R) - Neurological Exam Neurological exam: Present: alert, oriented X3, no focal deficits, strengths equal and symetr throughout. Absent: facial droop, speech deficit - Skin Skin exam: Absent: rash - VTE Reasons for not Prescribing Prophylaxis: Not indicated-Anticoagulated or INR therapeutic Documentation of Mechanical Device: Intermittent pneumatic compression device
--- NOTE | 2016-10-07 10:22 | Event Note ---
Date of Encounter: 10/07/16 Time of Encounter: 13:00 I received results of urine cultures 10/05: growing GPC. Patient was asymptomatic during his stay but due to leukocytosiS I called him to his home [phone] but he did not answer. I will call him back this evening. PLAN is for him to take Ampicillin for 7 days and repeat Urine culture.
== END 2016-10-05 16:10 | disposition home or self-care (01) ==
LOC: EMEROO 16:24 → 2ANU 16:24 → SUATTDRO 20:47 → 2ANU 21:25 → 2NNU 10-04 11:43
PROVIDERS: ADMIT Internal Medicine; ATTEND Internal Medicine

== ENCOUNTER 2016-10-10 13:53 | Observation (INO) ==
--- NOTE | 2016-10-10 14:00 | Emergency Department Note ---
Disposition Clinical Impression: Chest pain Qualifiers: Chest pain type: unspecified Qualified Code(s): R07.9 - Chest pain, unspecified Disposition: Admitted As Inpatient Condition: Fair Referrals: NO,PCP [Primary Care Provider] - Forms: ED Satisfaction Letter Time of Disposition: 15:21 Chest Pain HPI - General Chief Complaint: ED Chest Pain Stated Complaint: CP/HTN Time Seen by Provider: 10/10/16 13:56 Source: patient, EMS Mode of arrival: EMS Limitations: age Vital Signs Reviewed: Yes Nursing Notes Reviewed: Yes - History of Present Illness HPI Narrative: 75-year-old male with history of hypertension, hyperlipidemia, diabetes, dementia, CAD, CABG 2, recent stent placed on 10/[address] Maldonado to the proximal RCA, patient presents with 8 out of 10 chest pain at rest brought in by EMS from home, somewhat limited secondary to dementia. Patient was here a few weeks ago for chest pain admitted for stent, he has severe three-vessel disease as aggressive risk factor modification including Plavix aspirin and beta blockers. Patient states pain is worse with exertion, substernal radiating to his left chest. Reports shortness of breath and nausea. Pt complaint: chest pain Onset (ago): hour(s) Duration: intermittent Onset: during rest Pain Location: substernal, left chest Severity: moderate Severity scale (1-10): 7 Quality: aching Pain Radiation: LUE Improves with: nitroglycerin Treatments prior to arrival chest pain: aspirin, nitroglycerin - Related Data Home Medications Medication Instructions Recorded Confirmed Nitroglycerin [Nitrostat] 0.4 mg SL Q5M PRN 10/01/16 10/01/16 Previous Rx's Medication Instructions Recorded Aspirin Enteric Coated [Aspirin EC] 81 mg PO DAILY #30 tablet.dr 02/21/16 Atorvastatin [Lipitor] 40 mg PO HS #30 tablet 02/21/16 Furosemide [Lasix] 40 mg PO DAILY #30 tablet 02/21/16 Carvedilol [Coreg] 3.125 mg PO BIDWM #30 tab 10/05/16 Clopidogrel [Plavix] 75 mg PO DAILY #30 tab 10/05/16 Isosorbide MONOnitrate (24 HR) 90 mg PO DAILY #90 10/05/16 [Imdur] Rivaroxaban [Xarelto] 15 mg PO 1700 #30 tab 07/18/17 amLODIPine [Norvasc] 10 mg PO DAILY #30 tab 10/05/16 Allergies Allergy/AdvReac Type Severity Reaction Status Date / Time Oxycodone [From Percocet] Allergy Hives Verified 10/01/16 16:37 tramadol Allergy Hives Verified 10/01/16 16:37 All systems ED: reviewed and negative except as stated. (Somewhat limited secondary to patient's mental state, he essentially says no to everything, yes to chest pain.) Review of Systems: As Per HPI Constitutional: Denies: fever, chills Cardiovascular: Reports: as per HPI, chest pain, dyspnea on exertion. Denies: orthopnea, syncope, paroxysmal nocturnal dyspnea Respiratory: Reports: as per HPI, dyspnea. Denies: cough Gastrointestinal: Denies: abdominal pain, nausea, vomiting Genitourinary: Denies: urgency Musculoskeletal: Denies: back pain, neck pain Integumentary: Denies: rash Neurological: Denies: headache, weakness Endocrine: Denies: fatigue Chest Pain PMH - Past Medical History Medical history: Reports: asthma, coronary artery disease, CVA, diabetes, hypertension, myocardial infarction, thyroid disease Surgical history: Reports: cholecystectomy, coronary bypass (CABG), pacemaker/ AICD Psychiatric history: Reports: no psych history - Social History Smoking Status: Former smoker Alcohol use: Reports: none Drug use: Reports: none Physical Exam Constitutional: alert and oriented, appears moderately uncomfortable, elevated blood pressure. Neck: normal inspection, neck is supple, no JVD Resp: normal chest inspection, CTA bilaterally, no resp distress, no wheezes/ rales/rhonchi CV: RRR, diminished heart sounds pacemaker in place Extremity: +2 bilateral radial and posterial tibial pulses, no pedal edema GI: normal inspection, Soft, NTND, no peritoneal signs, no palpable abdominal aortic aneurysm Back: normal inspection, no tenderness to palpation Neuro: A&O1 to self, no gross motor or sensory deficits bilaterally MSK: normal inspection, bilateral UE and LE with normal ROM Skin: No rashes, skin warm, dry, intact - General Limitations: age Course Course Narrative: 75-year-old male with history of CABG and recent stent, no evidence of holosystolic murmur at the base to apex, patient is hemodynamically stable actually is hypertense, at this time given nitroglycerin for chest pain, he did receive aspirin prehospital 324 mg. chest pain workup with EKG, CBC BMP troponin coags, reassess. HEART SCORE of 7. - Reevaluation(s) Reevaluation #1: Patient's chest pain is currently improved Reevaluation #2: Troponin 0.01, chest pain completely relieved after 2 nitroglycerin, we will page the hospitalist for admission. Time: 15:00 Reevaluation #3: Chest pain-free, after 2 nitroglycerin, admitted to the hospitalist Dr. De La Cruz in stable condition Time: 15:21 Vital Signs Temperature 98.6 F 10/10/16 13:55 Pulse Rate 81 10/10/16 13:55 Respiratory Rate 16 10/10/16 13:55 Blood Pressure 188/97 10/10/16 13:55 O2 Sat by Pulse Oximetry 97 10/10/16 13:55 Temperature 98.6 F 10/10/16 13:55 Pulse Rate 81 10/10/16 14:57 Respiratory Rate 16 10/10/16 14:57 Blood Pressure 147/76 10/10/16 14:57 O2 Sat by Pulse Oximetry 96 10/10/16 14:57 Oxygen Delivery Oxygen Delivery Room Air Chest Pain - Differential Diagnosis Likely: stable angina, unstable angina pectoris, atypical chest pain - Medical Records Medical records reviewed: Yes I reviewed the patient's medical records. - Lab Data Lab results reviewed: Yes I reviewed the patient's lab results. Result diagrams: 10/10/16 14:36 10/10/16 14:36 Lab Results 10/10/16 10/10/16 10/10/16 Range/Units 14:36 14:36 14:36 WBC 9.9 (4.3-11.1) K/mcL RBC 5.44 (4.19-5.50) M/mcL Hgb 16.4 (12.9-16.9) g/dL Hct 46.7 (37.5-50.1) % MCV 85.8 (83.0-100.0) fL MCH 30.1 (28.0-33.3) pg MCHC 35.1 (31.6-35.5) g/dL RDW 13.2 (11.5-14.5) % Plt Count 182 (140-400) K/mcL MPV 11.1 (9.4-12.4) fL Immature Plt Fraction 5.3 (1.1-6.1) % PT 11.2 (9.4-12.1) Seconds INR 1.0 APTT 26.9 (26.0-36.0) Seconds Sodium (136-145) mEq/L Potassium (3.5-4.5) mEq/L Chloride (98-109) mEq/L Carbon Dioxide (19-29) mEq/L BUN (8-26) mg/dL Creatinine (0.72-1.25) mg/dL Est GFR ( Amer) (> 60) Est GFR (Non-Af Amer) (> 60) BUN/Creatinine Ratio (6-26) Glucose (70-99) mg/dL Calculated Osmolality (280-300) Calcium (8.6-10.8) mg/dL Troponin I (0-0.03) ng/mL B-Natriuretic Peptide 272 H (0-100) pg/mL 10/10/16 10/10/16 Range/Units 14:36 14:36 WBC (4.3-11.1) K/mcL RBC (4.19-5.50) M/mcL Hgb (12.9-16.9) g/dL Hct (37.5-50.1) % MCV (83.0-100.0) fL MCH (28.0-33.3) pg MCHC (31.6-35.5) g/dL RDW (11.5-14.5) % Plt Count (140-400) K/mcL MPV (9.4-12.4) fL Immature Plt Fraction (1.1-6.1) % PT (9.4-12.1) Seconds INR APTT (26.0-36.0) Seconds Sodium 135 L (136-145) mEq/L Potassium 3.8 (3.5-4.5) mEq/L Chloride 104 (98-109) mEq/L Carbon Dioxide 19 (19-29) mEq/L BUN 17 (8-26) mg/dL Creatinine 1.19 (0.72-1.25) mg/dL Est GFR ( Amer) > 60 (> 60) Est GFR (Non-Af Amer) 59 L (> 60) BUN/Creatinine Ratio 14 (6-26) Glucose 272 H (70-99) mg/dL Calculated Osmolality 291 (280-300) Calcium 9.3 (8.6-10.8) mg/dL Troponin I 0.01 (0-0.03) ng/mL B-Natriuretic Peptide (0-100) pg/mL - Radiology Data Radiology results reviewed: Yes I reviewed the patient's radiology results. Chest X-Ray 10/10/16 13:57 IMPRESSION: 1. No radiographic finding to account for patient's chest pain. D/ / Dayne Joyce MD / Dayne Joyce MD Interpreting Provider: Dayne Joyce MD - EKG Data EKG attestation: Yes I reviewed and interpreted this EKG. EKG shows normal: sinus rhythm (70 bpm OH 144 QRS 03 QTC 519 electrical pacemaker, similar to previous EKG in August 2010) Interpretation: nonspecific ST-T wave changes - Core Measures AMI Core Measures Followed: Yes Heart Score - Score History: Highly Suspicious EKG: Non Specific repolarisation Disturbance Age: Greater than 65 Risk Factors: Equal/Greater than 3 risk factor or history of atherosclerotic disease Troponin: Less than normal limit HEART Score Total: 7
[2016-10-10] MEDS ORDERED: Aspirin 81 MG TAB.CHEW PO ONE (14:02)
--- NOTE | 2016-10-10 14:02 | Emergency Department Note ---
START Narrative - START START: I examined this patient and my medical decision-making was reviewed with the OCEAN EXPORT COORDINATOR/PA/Advanced Practice Nurse/Resident Physician. I agree with the documented findings, disposition and treatment plan as described except to the extent set forth below. ED attending note: Patient seen with emergency medicine resident Dr GARLAND. We independently evaluated the patient. We independently had [id number] contact with the patient. Please see a copy of his note for details of the history and physical, evaluation, management and disposition of this emergency Department patient. Briefly 75-year-old male with multiple prior ED visits history of coronary artery disease and hypertension. Patient recently had a cardiac catheterization showing severe 3 vessel disease and received a cardiac stent. In by EMS today for elevated blood pressure and chest pain. Patient appears uncomfortable but not toxic. Patient will have a workup for acute coronary syndrome possible unstable angina involving troponin screening labs chest x-ray and EKG. Admission anticipated. Provided 35 minutes of critical care services for this patient. Patient had nitroglycerin and aspirin.
[2016-10-10] MEDS: Nitroglycerin 0.4 MG TAB.SUBL SL PRN ×3 (14:16→15:48)
[2016-10-10 14:49] LABS: Prothrombin Time 11.2 Seconds (9.4-12.1)
[2016-10-10 14:51] LABS: Activated Partial Thrombo Time 26.9 Seconds (26.0-36.0)
[2016-10-10 14:53] LABS: Basophils # 0.1 K/mcL (0.0-0.2); Basophils % 0.9 %; Eosinophils # 0.2 K/mcL (0.0-0.6); Eosinophils % 1.7 %; Hematocrit 46.7 % (37.5-50.1); Hemoglobin 16.4 g/dL (12.9-16.9); Immature Granulocytes % 1.1 % (0-4); Immature Platelets 5.3 % (1.1-6.1); Lymphocytes # 1.9 K/mcL (0.6-4.6); Lymphocytes % 19.6 %; Mean Corpuscular HGB Conc 35.1 g/dL (31.6-35.5); Mean Corpuscular Hemoglobin 30.1 pg (28.0-33.3); Mean Corpuscular Volume 85.8 fL (83.0-100.0); Mean Platelet Volume 11.1 fL (9.4-12.4); Monocytes # 0.8 K/mcL (0.0-1.3); Monocytes % 8.5 %; Neutrophils # 6.8 K/mcL (1.6-8.9); Platelet Count 182 K/mcL (140-400); Red Blood Count 5.44 M/mcL (4.19-5.50); Red Cell Distribution Width 13.2 % (11.5-14.5); Segmented Neutrophils % 68.2 %
[2016-10-10 14:59] LABS: BUN/Creatinine Ratio 14 (6-26); Blood Urea Nitrogen 17 mg/dL (8-26); Calcium 9.3 mg/dL (8.6-10.8); Carbon Dioxide 19 mEq/L (19-29); Chloride 104 mEq/L (98-109); Glucose 272 mg/dL (70-99); Osmolality,Calculated 291 (280-300); Potassium 3.8 mEq/L (3.5-4.5); eGFR For African Americans > 60 (> 60); eGFR For Non-African Americans 59 (> 60)
[2016-10-10 15:03] LABS: Sodium 135 mEq/L (136-145)
[2016-10-10 15:34] LABS: Platelet Estimate Normal (Normal)
[2016-10-10] MEDS ORDERED: Ondansetron 4 MG/2 ML VIAL IVP PRN (18:04)
[2016-10-10] MEDS ORDERED: Naloxone 0.4 MG/ML INJ IVP PRN (18:04)
--- NOTE | 2016-10-10 18:35 | Internal Med History&Physical ---
<Carlos Recinos - Last Filed: 10/10/16 19:40> Date of Encounter: 10/10/16 Time of Encounter: 17:30 Assessment and Plan (1) Chest pain Current visit: Yes Status: Acute Patient presents with complaint of acute chest pain that he reports began at 4 a.m. and woke him from his sleep. He reports the pain as sharp and stabbing that became a pressure in his left chest and radiated to his left arm. Patient states that the pain is now pressure over his pacemaker in his left chest. Mr. Pizarro's initial troponin was 0.01. Patient reports he received 8 doses of nitroglycerin in the ED which he states helped with the chest pain. Mr. Pizarro 's echocardiogram dated 06/14/16 shows LVEF of 35-40% with moderate global left ventricular systolic dysfunction, mild left ventricular diastolic function, no pulmonary hypertension, no significant valvular dysfunction, and bicuspid aortic valve. Patient to be placed on continuous cardiac telemetry with supplemental O2 and troponins trended x2. Cardiac diet. Nitroglycerin PRN. EV echocardiogram ordered. Cardiology consult ordered. Patient to be monitored closely for signs of increased cardiac distress. Qualifiers: Chest pain type: unspecified Qualified Code(s): R07.9 - Chest pain, unspecified (2) Shortness of breath Current visit: Yes Status: Acute Patient presents with acute shortness of breath related to current symptoms of chest pain. Patient also has history of CHF but has no pedal edema or fluid overload during examination. Patient placed on supplemental O2 with titration if SpO2 < 92% with continuous SpO2 monitoring. Will monitor I&O and daily weight. (3) Positive urine culture Current visit: Yes Status: Acute Patient was discharged on 10/06/16 from the hospital following hear catheterization. Urine cultures received afterwards show patient's urine positive for GPC. Patient was asymptomatic during his admission but had leukocytosis which prompted the culture order. Culture and sensitivity towards tetracycline. PO doxycycline ordered 100 mg BID while inpatient. Follow-up urine culture ordered. (4) HLD (hyperlipidemia) Current visit: Yes Status: Chronic Patient presents with history of hyperlipidemia. Lipid panel ordered. Will continue patient's Lipitor. Qualifiers: Hyperlipidemia type: pure hypercholesterolemia Qualified Code(s): E78.00 - Pure hypercholesterolemia, unspecified; E78.0 - Pure hypercholesterolemia (5) GERD (gastroesophageal reflux disease) Current visit: Yes Status: Chronic Patient presents with history of chronic GERD. IVP Protonix 40 mg daily ordered. IV Zofran ordered PRN. Qualifiers: Esophagitis presence: without esophagitis Qualified Code(s): K21.9 - Gastro -esophageal reflux disease without esophagitis (6) Hypertension Current visit: No Status: Chronic Patient presents with history of chronic hypertension. Will monitor patient and vital signs and continue his Coreg. Qualifiers: Hypertension type: essential hypertension Qualified Code(s): I10 - Essential (primary) hypertension (7) DVT prophylaxis Current visit: Yes Status: Acute DVT prophylaxis to consist of continuation of patient's Xarelto. Patient on Plavix as well. Internal Medicine - H&P: HPI Chief complaint: Chest pain Admitted From: Emergency Dept Plans for Post Hospital Care: Home History of present illness: Mr. Pizarro is a 75 year old male who presents form the ED with chief complaint of chest pain that he reports began about 4 a.m. and woke him from his sleep. he describes the pain as a sharp, stabbing pain that then became a pressure. He states he has had chest pain before but not like this. He also states that he became short of breath and diaphoretic. He states that the pain is now centered around his pacemaker in his left chest. Mr. Pizarro reports that he was active previously walking several miles per day. He denies use of assistive devices for walking or home O2. He also denies recent illness, fever, chills, generalized weakness, nausea, vomiting, pre-syncope, or syncope. On examination, patient reports that he a little short of breath. No pedal edema present. Mr. Pizarro has a medical history of CAD and HTN and had a recent cardiac catheterization this month with placement of one stent. Patient's echocardiogram shows LVEF of 35-40%. Patient's initial troponin was 0.01 in the ED. Patient is at moderate risk for cardiac event based on history of CAD, catheterization requiring stent placement, and current symptoms and will be placed as observation status with orders for continuous cardiac telemetry, supplemental O2 with continuous SPO2 monitoring, and trended troponins 2. Mr. Pizarro was recently discharged on 10/06/16 for similar symptoms and heart catheterization when it was discovered post-discharge from culture results that his urine culture was growing GPC. Patient was asymptomatic during admission but had leukocytosis which prompted the urine culture. Attempts were made to contact the patient about the results but were unsuccessful. Plan was to place him on PO antibiotics post-discharge for infection coverage due to sensitivity results. PO doxycycline 100 mg BID and stat urine culture ordered. Patient to be monitored closely for signs of increased infection and/or cardiac and respiratory distress. Time spent with patient > 40 minutes. Past Med Surg Social Fam HX - Past Medical History Source: patient Medical history: asthma, coronary artery disease, CVA, diabetes, hypertension, myocardial infarction, thyroid disease Psychiatric history: no psych history - Past Surgical History Surgical History: cholecystectomy, coronary bypass (CABG), pacemaker/AICD - Social History Smoking Status: Former smoker Smokeless Tobacco Status: No Alcohol use: none Drug use: none Occupational status: previously employed Current living situation: Home, With Family Activity Level: Independent ambulation Recent Out of Country Travel Within the Last 8 Weeks: No Exposure or Possible Exposure to Illness During Travel: No - Family History Grandfather Living Status: Hx Family Cardiac Disorders: Yes Mother History Unknown: Yes Living Status: Father Adopted: No Living Status: Age at : 78 Hx Family Cardiac Disorders: No Hx Family Respiratory Disorders: No Hx Family Cancer: Yes Hx Family GI Disorders: No Hx Family Genitourinary Disorders: No Hx Family Endocrine Disorder: No Hx Family Musculoskeletal Disorders: No Hx Family Neuromuscular Disorders: No Hx Family Neurologic Disorders: No Hx Family HEENT Disorders: No Hx Family Autoimmune Disorders: No Hx Family Reproductive Disorders: No Hx Family Psychosocial Disorders: No Hx Family Medical Disorders: No Internal Medicine - H&P: Meds Aspirin Enteric Coated [Aspirin EC] 81 mg PO DAILY #30 tablet.dr 02/21/16 [Rx] Atorvastatin [Lipitor] 40 mg PO HS #30 tablet 02/21/16 [Rx] Furosemide [Lasix] 40 mg PO DAILY #30 tablet 02/21/16 [Rx] Nitroglycerin [Nitrostat] 0.4 mg SL Q5M PRN 10/01/16 [History] Carvedilol [Coreg] 3.125 mg PO BIDWM #30 tab 10/05/16 [Rx] Clopidogrel [Plavix] 75 mg PO DAILY #30 tab 10/05/16 [Rx] Isosorbide MONOnitrate (24 HR) [Imdur] 90 mg PO DAILY #90 10/05/16 [Rx] Rivaroxaban [Xarelto] 15 mg PO 1700 #30 tab 10/05/16 [Rx] amLODIPine [Norvasc] 10 mg PO DAILY #30 tab 10/05/16 [Rx] Allergies Oxycodone [From Percocet] Allergy (Verified 10/01/16 16:37) Hives tramadol Allergy (Verified 10/01/16 16:37) Hives All Systems PM: A 10-system review of systems was performed and is negative for pertinent findings except as documented above in the HPI. - Constitutional Constitutional: no chills, no fever(s), no night sweats - EENT Eyes: no change in vision, no discharge, no pain, no photophobia Ears: no ear discharge, no ear pain, no tinnitus Nose, mouth and throat: no dysphagia, no nasal discharge, no neck pain, no sore throat - Breasts Breasts: as per HPI - Cardiovascular Cardiovascular ROS IM: as per HPI, chest pain, diaphoresis, dyspnea - Respiratory Respiratory: as per HPI, dyspnea, no cough, no wheezing, no excessive phlegm production - Gastrointestinal Gastrointestinal: no abdominal pain, no diarrhea, no hematemesis, no hematochezia, no melena, no nausea, no vomiting - Genitourinary Genitourinary ROS male: as per HPI - Musculoskeletal Musculoskeletal ROS IM: no numbness, no tingling - Integumentary Integumentary IM: no rash, no unusual bruising - Neurological Neurological ROS: no confusion, no convulsions, no focal weakness, no numbness, no tingling, no tremor(s) - Psychiatric Psychiatric: as per HPI - Endocrine Endocrine IM: as per HPI - Hematologic/Lymphatic Hematologic/Lymphatic: no easy bruising - Allergic/Immunologic Allergic/Immunologic: as per HPI - Constitutional Vitals: Temp Pulse Resp BP Pulse Ox 97.5 F L 74 20 182/88 98 10/10/16 16:46 10/10/16 16:46 10/10/16 16:46 10/10/16 16:46 10/10/16 16:46 General appearance: Present: cooperative, A&O X 3, pleasant, no acute distress, obese, answers questions appropriately - Head Head exam: Present: atraumatic, normocephalic - Eye Eye exam: Present: PERRL, conjuntiva pink, sclera anicteric Pupils: Present: PERRL - ENT ENT exam: Present: normal exam, normal external ear exam - Neck Neck exam general surgery: Present: supple, trachea midline. Absent: lymphadenopathy - Respiratory Respiratory exam: Present: CTAB. Absent: accessory muscle use, rales, rhonchi, wheezes - Cardiovascular Cardiovascular exam: Present: RRR, +S1, +S2. Absent: diastolic murmur, gallop, rubs, systolic murmur - GI/Abdominal GI/Abdominal exam: Present: normal bowel sounds, soft, no peritoneal signs. Absent: distended, tenderness - Rectal Rectal exam: Present: deferred - Additional comments: exam deferred. - Extremities Exam Extremities exam: Present: warm, radial pulses palpable and symetrical. Absent : calf tenderness, cyanotic, pedal edema - Back Exam Back exam: Present: normal inspection - Neurological Exam Neurological exam: Present: CN II-XII intact, oriented X3, no focal deficits. Absent: pronater drift, facial droop, speech deficit - Psychiatric Psychiatric exam: Present: normal affect, normal mood - Skin Skin exam: Present: dry, intact Internal Med - H&P Results - Labs CBC & Chem 7: 10/10/16 14:36 10/10/16 14:36 - Diagnostic Studies Chest x-ray Additional comments: Impressions Chest X-Ray 10/10/16 13:57 IMPRESSION: 1. No radiographic finding to account for patient's chest pain. D/ / Dayne Joyce MD / Dayne Joyce MD Interpreting Provider: Dayne Joyce MD <Arash De La Cruzcierrasarah - Last Filed: 10/11/16 07:13> Date of Encounter: 10/11/16 Internal Medicine - H&P: HPI History of present illness: Mr. Pizarro is a 75 year old male All Systems PM: A 10-system review of systems was performed and is negative for pertinent findings except as documented above in the HPI. - Constitutional Vitals: Temp Pulse Resp BP Pulse Ox 98.2 F 74 14 181/99 97 10/11/16 07:02 10/11/16 07:02 10/11/16 07:02 10/11/16 07:02 10/11/16 07:02 Internal Med - H&P Results - Labs CBC & Chem 7: 10/11/16 03:14 10/11/16 03:14 Labs: Short CBC 10/11/16 Range/Units 03:14 WBC 9.3 (4.3-11.1) K/mcL Hgb 14.9 D (12.9-16.9) g/dL Hct 43.5 (37.5-50.1) % Plt Count 169 (140-400) K/mcL Neutrophils # 5.7 (1.6-8.9) K/mcL BMP 10/11/16 03:14 Sodium 139 Potassium 3.7 Chloride 108 Carbon Dioxide 24 BUN 18 Creatinine 1.03 Glucose 132 H Calcium 9.2 Cardiac Enzymes 10/10/16 10/11/16 Range/Units 20:32 03:14 Troponin I 0.02 0.02 (0-0.03) ng/mL Urine 10/10/16 Range/Units 21:55 Urine Color Yellow (Yellow) Urine Clarity Hazy (Clear) Urine pH 7.5 (5.0-8.0) pH Units Ur Specific [place] 1.019 (1.010-1.025) Urine Protein 100 H (Neg-Trace) mg/dL Urine Glucose (UA) Normal (Normal) mg/dL - Attending Attestation I saw and examined pt. I have discussed with FINISHED CIGAR MAKER regarding management plan. Agree with the documentation.
[2016-10-10] MEDS ORDERED: *HR* Dextrose 50 % in Water (Syg) 50 ML SYRINGE IVP PRN (18:40)
[2016-10-10] MEDS ORDERED: Dextrose Gel 15 GM PO PRN ×2 (18:40)
[2016-10-10] MEDS ORDERED: D5% in Water 1,000 ML IVC PRN (18:40)
[2016-10-10] MEDS: Insulin LISPRO 300 UNITS/3 ML VIAL SQ SCH ×2 (18:58→21:44)
--- NOTE | 2016-10-10 19:33 | Event Note ---
Date of Encounter: 10/10/16 Time of Encounter: 18:00 I saw and examined pt . I discussed with PLANNING AIDE regarding management plan. Pt has Hx of CAD s/p recent stenting, developped chest again today, respond to NTG. Will place pt on cardiac monitoring, track 3 sets of troponin, cardio consult for further management.
[2016-10-10] MEDS ORDERED: Ampicillin 1,000 MG in 0.9 % Sodium Chloride Mini Bag 100 ML IVPB SCH (20:00)
[2016-10-10] MEDS: Doxycycline 100 MG CAPSULE PO SCH (21:21)
[2016-10-10 22:14] LABS: Bilirubin,Urine Negative (Negative); Blood,Urine Negative (Negative); Color,Urine Yellow (Yellow); Glucose,Urine (UA) Normal (Normal); Ketones,Urine Negative (Negative); Leukocyte Esterase,Urine Small (Negative); Nitrite,Urine Negative (Negative); PH,Urine 7.5 pH Units (5.0-8.0); Protein,Urine 100 mg/dL (Neg-Trace); Specific Gravity,Urine 1.019 (1.010-1.025); Urobilinogen,Urine Normal (Normal)
[2016-10-10 22:17] LABS: Bacteria,Urine None Seen per hpf (None-Few); Hyaline Casts,Urine None Seen per lpf (None-Few); Squamous Epithelial Cell,Urine None Seen per lpf (None-Few)
[2016-10-10 22:25] LABS: Clarity,Urine Hazy (Clear)
[2016-10-11] MEDS: Nitroglycerin 0.4 MG TAB.SUBL SL PRN ×2 (03:01→03:14)
[2016-10-11 03:57] LABS: Basophils # 0.1 K/mcL (0.0-0.2); Basophils % 0.8 %; Eosinophils # 0.2 K/mcL (0.0-0.6); Eosinophils % 2.3 %; Hematocrit 43.5 % (37.5-50.1); Hemoglobin 14.9 g/dL (12.9-16.9); Immature Granulocytes % 0.4 % (0-4); Lymphocytes # 2.5 K/mcL (0.6-4.6); Lymphocytes % 27.2 %; Mean Corpuscular HGB Conc 34.3 g/dL (31.6-35.5); Mean Corpuscular Hemoglobin 29.2 pg (28.0-33.3); Mean Corpuscular Volume 85.1 fL (83.0-100.0); Mean Platelet Volume 11.7 fL (9.4-12.4); Monocytes # 0.8 K/mcL (0.0-1.3); Monocytes % 8.5 %; Neutrophils # 5.7 K/mcL (1.6-8.9); Platelet Count 169 K/mcL (140-400); Red Blood Count 5.11 M/mcL (4.19-5.50); Red Cell Distribution Width 13.1 % (11.5-14.5); Segmented Neutrophils % 60.8 %
[2016-10-11 04:01] LABS: INR 1.1
[2016-10-11 04:03] LABS: Hemoglobin A1C 7.5 %
[2016-10-11 04:04] LABS: Activated Partial Thrombo Time 28.5 Seconds (26.0-36.0)
[2016-10-11 04:14] LABS: BUN/Creatinine Ratio 17 (6-26); Blood Urea Nitrogen 18 mg/dL (8-26); Calcium 9.2 mg/dL (8.6-10.8); Carbon Dioxide 24 mEq/L (19-29); Chloride 108 mEq/L (98-109); Chol/HDL Ratio 3.6 (0-4.9); Glucose 132 mg/dL (70-99); HDL Cholesterol 31 mg/dL (40-59); LDL Cholesterol,Calculated 47 mg/dL (0-99); Magnesium 1.8 mg/dL (1.6-2.6); Osmolality,Calculated 292 (280-300); Potassium 3.7 mEq/L (3.5-4.5); Sodium 139 mEq/L (136-145); Triglycerides 170 mg/dL (< 150); eGFR For African Americans > 60 (> 60); eGFR For Non-African Americans > 60 (> 60)
[2016-10-11 04:15] LABS: Cholesterol 112 mg/dL (< 200)
[2016-10-11] MEDS ORDERED: Sucralfate 1 GM TABLET PO ONE (05:31)
[2016-10-11] MEDS: Furosemide 40 MG TABLET PO SCH (07:55)
[2016-10-11] MEDS: Doxycycline 100 MG CAPSULE PO SCH ×2 (07:55→21:07)
[2016-10-11] MEDS: Isosorbide MONOnitrate (24 HR) 30 MG TAB.ER.24H PO SCH (07:55)
[2016-10-11] MEDS: Aspirin Enteric Coated 81 MG Tablet PO SCH (07:55)
[2016-10-11] MEDS: Insulin LISPRO 300 UNITS/3 ML VIAL SQ SCH ×4 (07:56→21:07)
[2016-10-11] MEDS: Pantoprazole 40 MG VIAL IVP SCH (07:56)
[2016-10-11] MEDS: amLODIPine 5 MG TABLET PO SCH (07:56)
--- NOTE | 2016-10-11 10:24 | Cardiology Progress Note ---
Date of Encounter: 10/11/16 Time of Encounter: 09:20 Assessment and Plan Discussion w patient/family: The assessment and plan as outlined above was discussed with the patient and/or family members who expressed understanding and agreement. All questions were answered. Thank you for involving us in the care of your patient. Please call with any questions. Subjective Principal diagnosis: Chest pain Objective Vital Signs, Last 4 Hours Temp Pulse Resp BP Pulse Ox 10/11/16 10:07 97.7 F 70 14 115/70 96 10/11/16 09:31 119/71 10/11/16 07:02 98.2 F 74 14 181/99 97 Results 10/11/16 03:14 10/11/16 03:14 Lab Results 10/10/16 10/11/16 10/11/16 20:32 03:14 03:14 WBC 9.3 Hgb 14.9 D Hct 43.5 Plt Count 169 INR APTT Sodium Potassium Chloride Carbon Dioxide BUN Creatinine Glucose Calcium Magnesium Troponin I 0.02 0.02 10/11/16 10/11/16 03:14 03:14 WBC Hgb Hct Plt Count INR 1.1 APTT 28.5 Sodium 139 Potassium 3.7 Chloride 108 Carbon Dioxide 24 BUN 18 Creatinine 1.03 Glucose 132 H Calcium 9.2 Magnesium 1.8 Troponin I Consult Discharge Plan - Plan Referrals: NO,PCP [Primary Care Provider] -
--- NOTE | 2016-10-11 10:32 | Cardiology Consult Note ---
Date of Encounter: 10/11/16 Time of Encounter: 09:20 Assessment and Plan (1) Chest pain Current Visit: Yes Status: Acute Atypical chest pain. Reproducible on exam. Pain not relieved with NTG. Likely muscle-skeletal pain. Troponin negative x 3. EKG shows ventricular pacing. Continue good medical therapy for CAD. Better blood pressure control. Add low dose lisinopril. S/p LHC one week ago. C Showed severe three vessel CAD, He received JATINDER to his ostial RCA and PTCA to the distal RCA. Patent 2/2 bypass grafts (ARROYO-LAD, SVG-OM1). TTE 05/2016: EF 35-40% with global hypokenesis. No significant valvular disease. No further testing at this time. Out -pt f/u in one week. Qualifiers: Chest pain type: unspecified Qualified Code(s): R07.9 - Chest pain, unspecified (2) CAD (coronary artery disease) Current Visit: No Status: Chronic H/o CABg in 2002 and recent PCI to his RCA. Continue asa, plavix, statin, and bb. Importance of DAPT with asa and plavix for minimum of one year reviewed. Consider cardiac rehab in the out-pt setting. Qualifiers: Coronary Disease-Associated Artery/Lesion type: bypass graft [place] vs. transplanted heart: [place] heart Associated angina: without angina Qualified Code(s): I25.810 - Atherosclerosis of coronary artery bypass graft(s) without angina pectoris (3) Paroxysmal a-fib Current Visit: No Status: Chronic H/O PAF on xarelto. Currently ventricular paced. HR 70's. Avg HR 66 bpm over 12 hours, Ventricular to AV pacing seen. (4) HTN (hypertension) Current Visit: No Status: Chronic B/p 188/98 on admit. Now improved. Will add low dose ACEi for CMP. If unable to tolerate decrease norvasc. Qualifiers: Hypertension type: essential hypertension Qualified Code(s): I10 - Essential (primary) hypertension (5) Ischemic cardiomyopathy Current Visit: No Status: Chronic H/o ICMP EF 35-40% on last TTE. Continue carvedilol. Add low dose clara inhibitor. TTE 05/2016: EF 35-40% with global hypokenesis. No significant valvular disease. Currently euvolemic. Discussion w patient/family: The assessment and plan as outlined above was discussed with the patient and/or family members who expressed understanding and agreement. All questions were answered. Thank you for involving us in the care of your patient. Please call with any questions. History of Present Illness Consult date: 10/11/16 Requesting physician: Melani Lala Consult reason: Chest pain Chief complaint: Midsternal chest pain History of present illness: Mr. Pizarro is a 75 year old male with a history of 2V CABG in 2002, S/p PCI to the RCA one week ago, HTN,PPM, PAF on xarelto, CVA, HLD, TETLIN, and GERD who presents with chest pain. The chest pain woke him from his sleep yesterday morning and is constant. He describes the pain as severe, radiating from his epigastric area to his neck and to the left lower side of his chest. He denies aggravating factors. States he was given multiple NTG SL and baby asa in the ER with no relief. The pain is not the same as he felt last week when he underwent [facility] with PCI. He admits to some SOB at times. Denies weight gain or edema. Denies palpitations. Cardiology consulted for further evaluation. B/p noted to be 188/97 on admission. Troponin negative. Recent cardiac testing: [facility] Showed severe three vessel CAD, He received JATINDER to his ostial RCA and PTCA to the distal RCA. Patent 2/2 bypass grafts (ARROYO-LAD, SVG-OM1). TTE 05/2016: EF 35-40% with global hypokenesis. No significant valvular disease. Past Med Surg Social Fam HX - Past Medical History Attestation: Yes The following information was validated with the patient. Medical history: asthma, atrial fibrillation, coronary artery disease, CVA, diabetes, hypertension, myocardial infarction, thyroid disease Psychiatric history: no psych history - Past Surgical History Surgical History: cholecystectomy, coronary bypass (CABG), pacemaker/AICD - Social History Smoking Status: Former smoker Smokeless Tobacco Status: No Alcohol use: none Drug use: none - Family History Grandfather Living Status: Hx Family Cardiac Disorders: Yes Mother History Unknown: Yes Living Status: Father Adopted: No Living Status: Age at : 78 Hx Family Cardiac Disorders: No Hx Family Respiratory Disorders: No Hx Family Cancer: Yes Hx Family GI Disorders: No Hx Family Genitourinary Disorders: No Hx Family Endocrine Disorder: No Hx Family Musculoskeletal Disorders: No Hx Family Neuromuscular Disorders: No Hx Family Neurologic Disorders: No Hx Family HEENT Disorders: No Hx Family Autoimmune Disorders: No Hx Family Reproductive Disorders: No Hx Family Psychosocial Disorders: No Hx Family Medical Disorders: No Medications and Allergies Aspirin Enteric Coated [Aspirin EC] 81 mg PO DAILY #30 tablet.dr 02/21/16 [Rx] Atorvastatin [Lipitor] 40 mg PO HS #30 tablet 02/21/16 [Rx] Furosemide [Lasix] 40 mg PO DAILY #30 tablet 02/21/16 [Rx] Nitroglycerin [Nitrostat] 0.4 mg SL Q5M PRN 10/01/16 [History] Carvedilol [Coreg] 3.125 mg PO BIDWM #30 tab 10/05/16 [Rx] Clopidogrel [Plavix] 75 mg PO DAILY #30 tab 10/05/16 [Rx] Isosorbide MONOnitrate (24 HR) [Imdur] 90 mg PO DAILY #90 10/05/16 [Rx] Rivaroxaban [Xarelto] 15 mg PO 1700 #30 tab 10/05/16 [Rx] amLODIPine [Norvasc] 10 mg PO DAILY #30 tab 10/05/16 [Rx] Allergies Oxycodone [From Percocet] Allergy (Verified 10/01/16 16:37) Hives tramadol Allergy (Verified 10/01/16 16:37) Hives All Systems Review: A 10-system review of systems was performed and is negative for pertinent findings except as documented above in the HPI. Physical Examination Vital Signs, Last 4 Hours Temp Pulse Resp BP Pulse Ox 10/11/16 10:07 97.7 F 70 14 115/70 96 10/11/16 09:31 119/71 10/11/16 07:02 98.2 F 74 14 181/99 97 General: Conversant, No Apparent Distress HEENT: Atraumatic, Normocephaly, Mucus Membranes Moist Neck: No JVD, Normal carotid pulses Cardiac: Reg Rate and Rhythm, Normal S1 and S2, No Murmur, Other (Ventricular pacing on telemetry) Lungs: Normal Breath Sounds, No Wheeze, Rales, Rhonchi Neuro: Alert and responsive, No focal deficits noted Abdomen: Soft, Non-Tender Skin: No rashes noted on visualized skin Musculoskeletal: No Chest Wall Tenderness Extremities: No Clubbing, No Cyanosis, No Edema, Normal Pulses Results 10/11/16 03:14 10/11/16 03:14 Lab Results 10/10/16 10/11/16 10/11/16 20:32 03:14 03:14 WBC 9.3 Hgb 14.9 D Hct 43.5 Plt Count 169 INR APTT Sodium Potassium Chloride Carbon Dioxide BUN Creatinine Glucose Calcium Magnesium Troponin I 0.02 0.02 10/11/16 10/11/16 03:14 03:14 WBC Hgb Hct Plt Count INR 1.1 APTT 28.5 Sodium 139 Potassium 3.7 Chloride 108 Carbon Dioxide 24 BUN 18 Creatinine 1.03 Glucose 132 H Calcium 9.2 Magnesium 1.8 Troponin I - Imaging and Cardiology Echo: report reviewed Cardiac cath: report reviewed - EKG Interpretation EKG results cardiology: personally reviewed (Ventricular pacing) Consult Discharge Plan - Plan Referrals: NO,PCP [Primary Care Provider] -
--- NOTE | 2016-10-11 15:52 | Electrocardiograph Report ---
[place] [id number] Test Date: 2016-10-10 Pat Name: Yue Pizarro Department: 103 Room: 3B Gender: M [employer]ak [employer] Machine: AM : 1940 Requested By: Tarun Nevarez Order Number: [id number] Reading MD: Terrance Maldonado MD Measurements Intervals [place] Rate: 70 P: 81 OR: 144 QRS: -52 QRSD: 203 T: 137 QT: 498 QTc: 519 Interpretive Statements ELECTRONIC VEN[employer]ICULAR PACEMAKER Electronically Signed On 10-11-2016 15:50:41 EDT by Terrance Maldonado MD
[2016-10-11] MEDS: *HR* Rivaroxaban 15 MG TABLET PO SCH (17:45)
--- NOTE | 2016-10-11 18:06 | Internal Med Progress Note ---
Date of Encounter: 10/11/16 Time of Encounter: 09:45 - Assessment and plan (1) Chest pain Current Visit: No Status: Acute Assessment and plan: Patient presented to the emergency department with complaint of acute chest pain that began at 4 AM the day of admission and awakened from from his sleep. He said was sharp and stabbing and became a pressure in his left chest and radiated to his left arm. This is what he tells the admitting physician. Patient tells me that he had sharp chest pain in the middle of his chest that went up and down the street minding and denies radiation. An echocardiogram dated 06/14/16 that showed an LVEF of 35-40% with moderate global left ventricular systolic dysfunction, mild left ventricular diastolic dysfunction, no pulmonary hypertension, no significant valvular dysfunction, and bicuspid aortic valve. His troponins were negative. Chest x-ray was negative. EKG showed a paced rhythm. Patient was seen by cardiology and they recommended adding low-dose lisinopril. He received a JATINDER to this ostial RCA and PTCA to the distal RCA. I do not think he requires any further testing at this time. Is important he continues his aspirin, Plavix, statin, beta fuentes and his DAPT. Chest X-Ray 10/10/16 13:57 IMPRESSION: 1. No radiographic finding to account for patient's chest pain. D/ / Dayne Joyce MD / Dayne Joyce MD Interpreting Provider: Dayne Joyce MD Qualifiers: Chest pain type: intercostal pain Qualified Code(s): R07.82 - Intercostal pain (2) HTN (hypertension) Current Visit: No Status: Chronic Assessment and plan: Trying to achieve better control. Cardiology has a lisinopril 2.5 mg by mouth daily in addition to the rest of his other home medications. Continue and monitor vital signs. Qualifiers: Hypertension type: essential hypertension Qualified Code(s): I10 - Essential (primary) hypertension (3) HLD (hyperlipidemia) Current Visit: Yes Status: Chronic Assessment and plan: Chronic. Continue home medications. Qualifiers: Hyperlipidemia type: pure hypercholesterolemia Qualified Code(s): E78.00 - Pure hypercholesterolemia, unspecified; E78.0 - Pure hypercholesterolemia (4) DVT prophylaxis Current Visit: No Status: Acute Assessment and plan: Patient is on Xarleto. (5) GERD (gastroesophageal reflux disease) Current Visit: Yes Status: Chronic Assessment and plan: Chronic. Continue home medications. He is currently being treated with Protonix 40 mg IV push daily. Qualifiers: Esophagitis presence: without esophagitis Qualified Code(s): K21.9 - Gastro -esophageal reflux disease without esophagitis (6) Shortness of breath Current Visit: Yes Status: Resolved Assessment and plan: Patient denies. Lungs are clear. He is not requiring supplemental oxygen. Room air sats 95-96%. Oxygen as needed, titrate to maintain obtain saturations greater than 92%. (7) Positive urine culture Current Visit: Yes Status: Acute Assessment and plan: Urine was collected on October 10 in the emergency department. There is a small amount of leukocyte esterase, 3-5 red cells, 5-15 white cells and no bacteria. Culture is pending. Patient had a urine culture from October 05 that was a clean- catch urine specimen, also on August 13 that was a catheterized specimen. Both were positive for Staphylococcus epidermidis. She was started on ampicillin IV here. I will discontinue it as this is normally a skin contaminant. She denies any urinary symptoms and he has no leukocytosis or fever. - Time Spent With Patient less than 15 minutes - Subjective Interval history: Patient is resting quietly in his bed. He was assessed at 9:45 AM. Reports that yesterday morning he began having midsternal chest pain that was burning in nature and went straight up and down the center of his chest. He denies diaphoresis but states that he was short of breath and nauseated. He states that standing made it worse and it also became worse with eating. His abdomen is soft and nontender, distended, bowel sounds present. His lungs are clear and diminished. At the time I saw him, he had just returned from his echo. We are waiting on cardiology consultation. He just had a stress and stent placement approximately one week ago. - Constitutional Vitals: Temp Pulse Resp BP Pulse Ox 97.8 F 72 14 116/68 96 10/11/16 14:52 10/11/16 14:52 10/11/16 14:52 10/11/16 14:52 10/11/16 14:52 General appearance: Present: cooperative, A&O X 3, pleasant, no acute distress, obese, answers questions appropriately - Head Head exam: Present: normal inspection - Eye Eye exam: Present: normal appearance, conjuntiva pink - ENT ENT exam: Present: mucous membranes moist, normal exam, normal external ear exam - Neck Neck exam general surgery: Present: normal inspection. Absent: lymphadenopathy , tenderness - Respiratory Respiratory exam: Present: decreased breath sounds, CTAB. Absent: rales, respiratory distress, rhonchi, stridor, wheezes - Cardiovascular Cardiovascular exam: Present: RRR, +S1, +S2. Absent: diastolic murmur, systolic murmur - GI/Abdominal GI/Abdominal exam: Present: soft. Absent: hernia, hepatomegaly, tenderness - Extremities Exam Extremities exam: Present: normal capillary refill, warm, radial pulses palpable and symetrical. Absent: pedal edema, tenderness - Neurological Exam Neurological exam: Present: alert, no focal deficits. Absent: facial droop, speech deficit Internal Medicine: Result - Labs CBC & Chem 7: 10/11/16 03:14 10/11/16 03:14 Labs: Short CBC 10/11/16 Range/Units 03:14 WBC 9.3 (4.3-11.1) K/mcL Hgb 14.9 D (12.9-16.9) g/dL Hct 43.5 (37.5-50.1) % Plt Count 169 (140-400) K/mcL Neutrophils # 5.7 (1.6-8.9) K/mcL BMP 10/11/16 03:14 Sodium 139 Potassium 3.7 Chloride 108 Carbon Dioxide 24 BUN 18 Creatinine 1.03 Glucose 132 H Calcium 9.2 Cardiac Enzymes 10/10/16 10/11/16 Range/Units 20:32 03:14 Troponin I 0.02 0.02 (0-0.03) ng/mL Urine 10/10/16 Range/Units 21:55 Urine Color Yellow (Yellow) Urine Clarity Hazy (Clear) Urine pH 7.5 (5.0-8.0) pH Units Ur Specific [place] 1.019 (1.010-1.025) Urine Protein 100 H (Neg-Trace) mg/dL Urine Glucose (UA) Normal (Normal) mg/dL - ABG Interpretation ABG results: PT/INR, D-dimer PT 12.0 Seconds (9.4-12.1) 10/11/16 03:14 Consult Discharge Plan - Plan Referrals: NO,PCP [Primary Care Provider] -
[2016-10-11] MEDS: *HR* HYDROcodone/Acet 5/325 mg TABLET PO PRN (21:52)
[2016-10-12 02:58] LABS: Basophils # 0.1 K/mcL (0.0-0.2); Basophils % 0.7 %; Eosinophils # 0.3 K/mcL (0.0-0.6); Eosinophils % 3.4 %; Immature Granulocytes % 0.4 % (0-4); Lymphocytes # 2.2 K/mcL (0.6-4.6); Lymphocytes % 22.9 %; Mean Corpuscular HGB Conc 33.3 g/dL (31.6-35.5); Mean Corpuscular Hemoglobin 28.5 pg (28.0-33.3); Mean Corpuscular Volume 85.4 fL (83.0-100.0); Mean Platelet Volume 10.8 fL (9.4-12.4); Monocytes # 0.8 K/mcL (0.0-1.3); Monocytes % 8.9 %; Platelet Count 166 K/mcL (140-400); Red Blood Count 4.92 M/mcL (4.19-5.50); Red Cell Distribution Width 13.1 % (11.5-14.5); Segmented Neutrophils % 63.7 %
[2016-10-12 03:12] LABS: BUN/Creatinine Ratio 19 (6-26); Blood Urea Nitrogen 21 mg/dL (8-26); Calcium 9.1 mg/dL (8.6-10.8); Carbon Dioxide 27 mEq/L (19-29); Chloride 105 mEq/L (98-109); Glucose 124 mg/dL (70-99); Osmolality,Calculated 290 (280-300); Potassium 3.7 mEq/L (3.5-4.5); Sodium 138 mEq/L (136-145); eGFR For African Americans > 60 (> 60); eGFR For Non-African Americans > 60 (> 60)
[2016-10-12] MEDS: Isosorbide MONOnitrate (24 HR) 30 MG TAB.ER.24H PO SCH (08:37)
[2016-10-12] MEDS: Insulin LISPRO 300 UNITS/3 ML VIAL SQ SCH ×4 (08:37→21:06)
[2016-10-12] MEDS: Pantoprazole 40 MG VIAL IVP SCH (08:37)
[2016-10-12] MEDS: Aspirin Enteric Coated 81 MG Tablet PO SCH (08:38)
[2016-10-12] MEDS: Doxycycline 100 MG CAPSULE PO SCH ×2 (08:38→21:09)
[2016-10-12] MEDS: amLODIPine 5 MG TABLET PO SCH (08:38)
[2016-10-12] MEDS: Furosemide 40 MG TABLET PO SCH (08:38)
[2016-10-12] MEDS: *HR* HYDROcodone/Acet 5/325 mg TABLET PO PRN (13:30)
[2016-10-12] MEDS ORDERED: Ketorolac 30 MG/ML VIAL IVP PRN (15:29)
--- NOTE | 2016-10-12 16:13 | Internal Med Progress Note ---
Date of Encounter: 10/12/16 Time of Encounter: 12:30 - Assessment and plan (1) Costochondritis Current Visit: Yes Status: Acute Assessment and plan: Patient with anterior chest pain that is exquisitely tender to light palpation. Troponins negative 3. Seen and evaluated by cardiology who cleared him for outpatient follow-up. Echocardiogram unremarkable with ejection fraction of 40% . Chest x-ray negative. Examination and clinical picture consistent with costochondritis. Will treat with NSAIDs. Of note, patient also complaining of severe pain between his shoulder blades and difficulty swallowing. Will check LFTs, amylase/lipase, bili levels to rule out intra-abdominal etiology. Will also perform orthostatic vital signs as the patient states he gets dizzy with position changes. ITS Impressions Chest X-Ray 10/10/16 13:57 IMPRESSION: 1. No radiographic finding to account for patient's chest pain. D/ / Dayne Joyce MD / Dayne Joyce MD Interpreting Provider: Dayne Joyce MD Echocardiogram impressions: LVEF 40%. Normal LV chamber size. Mild concentric left ventricular hypertrophy. Global left ventricular systolic dysfunction. Indeterminate diastolic function. Atypical septal motion consistent with paced rhythm. Normal right ventricular structure and function. Unable to estimate RVSP due to lack of TR jet. A device lead was visualized in the right atrium and the right ventricle. No significant valvular dysfunction. (2) Atypical chest pain Current Visit: No Status: Acute (3) Positive urine culture Current Visit: Yes Status: Acute Assessment and plan: In review of his chart, the patient's last 2 urine cultures have both been positive for Staphylococcus epidermidis and it is becoming increasingly more resistant. Preliminary culture during this admission is gram-positive cocci which is likely again staph. Currently treating with doxycycline, will await sensitivities that should be back tomorrow. Suspect possible contamination given that the CFU's have been low. Patient denies dysuria. Will await final report. 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 No acute exacerbation. On furosemide at home, home dose continued. Euvolemic on examination. Echocardiogram revealing preserved ejection fraction of 40%. (5) IDDM (insulin dependent diabetes mellitus) Current Visit: No Status: Chronic Assessment and plan: Controlled at home with an A1c of 7.5%. Continue sliding scale while admitted. (6) CAD (coronary artery disease) Current Visit: No Status: Chronic Qualifiers: Coronary Disease-Associated Artery/Lesion type: bypass graft [place] vs. transplanted heart: [place] heart Associated angina: without angina Qualified Code(s): I25.810 - Atherosclerosis of coronary artery bypass graft(s) without angina pectoris (7) Pacemaker Current Visit: No Status: Chronic (8) HLD (hyperlipidemia) Current Visit: Yes Status: Chronic Assessment and plan: Chronic. Continue home statin. Low-cholesterol diet. Qualifiers: Hyperlipidemia type: pure hypercholesterolemia Qualified Code(s): E78.00 - Pure hypercholesterolemia, unspecified; E78.0 - Pure hypercholesterolemia (9) DVT prophylaxis Current Visit: Yes Status: Acute Assessment and plan: On Xarelto at home (10) Hypertension Current Visit: No Status: Chronic Assessment and plan: Controlled, we will continue to trend and adjust medications as indicated Qualifiers: Hypertension type: essential hypertension Qualified Code(s): I10 - Essential (primary) hypertension (11) Paroxysmal a-fib Current Visit: No Status: Chronic Assessment and plan: Rate controlled, on Xarelto (12) DARLYN (acute kidney injury) Current Visit: No Status: Resolved (13) GERD (gastroesophageal reflux disease) Current Visit: Yes Status: Chronic Assessment and plan: Chronic. Continue home medications. He is currently being treated with Protonix daily. He currently endorses burning that were abated with Tums. Tolerating regular diet, follow-up outpatient Qualifiers: Esophagitis presence: without esophagitis Qualified Code(s): K21.9 - Gastro -esophageal reflux disease without esophagitis - Subjective Interval history: Patient seen and examined. On examination, patient resting supine in bed with his eyes closed. He awakened easily to touch and was alert and oriented 3. Upon awakening, patient complained of severe pain across his anterior chest and between his shoulder blades. He also stated that his throat hurt when he swallowed, food fell as it was getting stuck, he also endorsed nausea but no vomiting. He also stated that he was dizzy when he sat up. - Constitutional Vitals: Temp Pulse Resp BP Pulse Ox 97.7 F 73 15 119/69 94 10/12/16 15:34 10/12/16 15:34 10/12/16 15:34 10/12/16 15:34 10/12/16 15:34 General appearance: Present: cooperative, A&O X 3, pleasant, no acute distress, answers questions appropriately - Head Head exam: Present: atraumatic, normocephalic - Eye Eye exam: Present: PERRL, conjuntiva pink, sclera anicteric Pupils: Present: PERRL - Neck Neck exam general surgery: Present: supple, trachea midline. Absent: lymphadenopathy - Respiratory Respiratory exam: Present: chest wall tenderness, CTAB. Absent: accessory muscle use, rales, respiratory distress, rhonchi, wheezes - Cardiovascular Cardiovascular exam: Present: RRR, +S1, +S2. Absent: diastolic murmur, gallop, rubs, systolic murmur - GI/Abdominal GI/Abdominal exam: Present: normal bowel sounds, soft, no peritoneal signs. Absent: distended, tenderness - Extremities Exam Extremities exam: Present: warm, radial pulses palpable and symetrical. Absent : calf tenderness, cyanotic, pedal edema - Neurological Exam Neurological exam: Present: alert, CN II-XII intact, oriented X3, no focal deficits, strengths equal and symetr throughout. Absent: pronater drift, facial droop, speech deficit - Skin Skin exam: Present: dry, intact, normal color, warm Internal Medicine: Result - Labs CBC & Chem 7: 10/12/16 02:49 10/12/16 02:49 Labs: Short CBC 10/12/16 Range/Units 02:49 WBC 9.4 (4.3-11.1) K/mcL Hgb 14.0 (12.9-16.9) g/dL Hct 42.0 (37.5-50.1) % Plt Count 166 (140-400) K/mcL Neutrophils # 6.0 (1.6-8.9) K/mcL BMP 10/12/16 02:49 Sodium 138 Potassium 3.7 Chloride 105 Carbon Dioxide 27 BUN 21 Creatinine 1.09 Glucose 124 H Calcium 9.1 - ABG Interpretation ABG results: PT/INR, D-dimer PT 12.0 Seconds (9.4-12.1) 10/11/16 03:14 Consult Discharge Plan - Plan Referrals: Kelechi Bernardo CNP [Advanced Practice Nurse] - 10/22/16 8:00 am Lance Cronin MD [Partnered Physician] -
[2016-10-12 17:04] LABS: Albumin 3.3 g/dL (3.5-5.0); Bilirubin,Direct 0.2 mg/dL (0.0-0.5); Bilirubin,Indirect 0.3 mg/dL (0.0-1.2); Bilirubin,Total 0.5 mg/dL (0.2-1.2); Globulin 3.3 g/dL (2.4-3.5); Total Protein 6.6 g/dL (6.0-8.3)
[2016-10-12] MEDS: *HR* Rivaroxaban 15 MG TABLET PO SCH (17:29)
--- NOTE | 2016-10-12 17:33 | Electrocardiograph Report ---
[place] [address] Test Date: 2016-10-11 Pat Name: Yue Pizarro Department: 113 Room: 3B Gender: M [employer] Operator: : [id number] Requested By: Concepcion Sena Order Number: [id number] Reading MD: Odalis Garcia Measurements Intervals [place] Rate: 76 P: 77 NV: 133 QRS: -60 QRSD: 205 T: 131 QT: 515 QTc: 545 Interpretive Statements ELECTRON[employer] VEN[employer]IC[employer] PACEMAKER Electronically Signed On 10-12-2016 17:32:14 EDT by Odalis Garcia
[2016-10-13] MEDS: Insulin LISPRO 300 UNITS/3 ML VIAL SQ SCH (08:07)
[2016-10-13] MEDS: Pantoprazole 40 MG VIAL IVP SCH (08:12)
[2016-10-13] MEDS: amLODIPine 5 MG TABLET PO SCH (08:13)
[2016-10-13] MEDS: Isosorbide MONOnitrate (24 HR) 30 MG TAB.ER.24H PO SCH (08:14)
[2016-10-13] MEDS: Doxycycline 100 MG CAPSULE PO SCH (08:14)
[2016-10-13] MEDS: Furosemide 40 MG TABLET PO SCH (08:14)
[2016-10-13] MEDS: Aspirin Enteric Coated 81 MG Tablet PO SCH (08:14)
--- NOTE | 2016-10-13 10:42 | Discharge Summary ---
Date of Encounter: 10/13/16 Time of Encounter: 09:00 - Discharge Diagnosis (1) Costochondritis Priority: Primary Status: Acute Comments: Patient with anterior chest pain that is exquisitely tender to light palpation. Troponins negative 3. Seen and evaluated by cardiology who cleared him for outpatient follow-up. Echocardiogram unremarkable with ejection fraction of 40% . Chest x-ray negative. Examination and clinical picture consistent with costochondritis and his pain improved with NSAIDs. Of note, patient was also complaining of severe pain between his shoulder blades and difficulty swallowing so his LFTs, amylase/lipase, bili levels were checked and were all normal. Orthostatic vital signs were unremarkable and the patient's dizziness with position changes improved prior to discharge. ITS Impressions Chest X-Ray 10/10/16 13:57 IMPRESSION: 1. No radiographic finding to account for patient's chest pain. D/ / Dayne Joyce MD / Dayne Joyce MD Interpreting Provider: Dayne Joyce MD Echocardiogram impressions: LVEF 40%. Normal LV chamber size. Mild concentric left ventricular hypertrophy. Global left ventricular systolic dysfunction. Indeterminate diastolic function. Atypical septal motion consistent with paced rhythm. Normal right ventricular structure and function. Unable to estimate RVSP due to lack of TR jet. A device lead was visualized in the right atrium and the right ventricle. No significant valvular dysfunction. (2) Atypical chest pain Priority: Primary Status: Acute (3) Staphylococcus epidermidis infection Priority: Primary Status: Chronic Comments: The patient's last 3 urine cultures have been consistent with Staphylococcus epidermidis consistent with contamination. No indication for antibiotics at this time. Patient denies dysuria. Leukocytosis or signs of acute infection. 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 No acute exacerbation. On furosemide at home, home dose continued. Euvolemic on examination. Echocardiogram revealing preserved ejection fraction of 40%. (6) IDDM (insulin dependent diabetes mellitus) Priority: Secondary Status: Chronic Comments: Controlled at home with an A1c of 7.5%. Follow-up outpatient (7) CAD (coronary artery disease) Priority: Secondary Status: Chronic Qualifiers: Coronary Disease-Associated Artery/Lesion type: bypass graft [place] vs. transplanted heart: [place] heart Associated angina: without angina Qualified Code(s): I25.810 - Atherosclerosis of coronary artery bypass graft(s) without angina pectoris (8) Pacemaker Priority: Secondary Status: Chronic (9) HLD (hyperlipidemia) Priority: Secondary Status: Chronic Comments: Chronic. Continue home statin. Low-cholesterol diet. Qualifiers: Hyperlipidemia type: pure hypercholesterolemia Qualified Code(s): E78.00 - Pure hypercholesterolemia, unspecified; E78.0 - Pure hypercholesterolemia (10) DVT prophylaxis Priority: Primary Status: Acute Comments: on Xarelto (11) Hypertension Priority: Secondary Status: Chronic Comments: Controlled. Started on low-dose TEE inhibitor per cardiology, tolerated it well , will continue upon discharge. Follow-up outpatient Qualifiers: Hypertension type: essential hypertension Qualified Code(s): I10 - Essential (primary) hypertension (12) Paroxysmal a-fib Priority: Secondary Status: Chronic Comments: rate controlled; on Xarelto. Follow-up outpatient (13) DARLYN (acute kidney injury) Priority: Primary Status: Resolved (14) GERD (gastroesophageal reflux disease) Priority: Secondary Status: Chronic Comments: Chronic. Continue home medications. He endorsed burning while admitted that was abated with Tums. Tolerating regular diet, follow-up outpatient Qualifiers: Esophagitis presence: without esophagitis Qualified Code(s): K21.9 - Gastro -esophageal reflux disease without esophagitis - Discharge Medications Prescriptions: Lisinopril [Zestril] 2.5 mg PO DAILY #15 tab Home Medications: Aspirin Enteric Coated [Aspirin EC] 81 mg PO DAILY #30 tablet. 02/21/16 [Rx] Atorvastatin [Lipitor] 40 mg PO HS #30 tablet 02/21/16 [Rx] Furosemide [Lasix] 40 mg PO DAILY #30 tablet 02/21/16 [Rx] Nitroglycerin [Nitrostat] 0.4 mg SL Q5M PRN 10/01/16 [History] Carvedilol [Coreg] 3.125 mg PO BIDWM #30 tab 10/05/16 [Rx] Clopidogrel [Plavix] 75 mg PO DAILY #30 tab 10/05/16 [Rx] Isosorbide MONOnitrate (24 HR) [Imdur] 90 mg PO DAILY #90 10/05/16 [Rx] Rivaroxaban [Xarelto] 15 mg PO 1700 #30 tab 10/05/16 [Rx] amLODIPine [Norvasc] 10 mg PO DAILY #30 tab 10/05/16 [Rx] Lisinopril [Zestril] 2.5 mg PO DAILY #15 tab 10/13/16 [Rx] Allergies/Adverse Reactions: Allergies Oxycodone [From Percocet] Allergy (Verified 10/01/16 16:37) Hives tramadol Allergy (Verified 10/01/16 16:37) Hives Procedures/tests Complete & Pending: Procedures Performed prior 72 hours Category Date Time Status ECG 12 lead ECG [ECG] Routine Y 10/11/16 10:20 Completed EV echocardiogram Routine Y 10/11/16 19:25 Completed Date of admission: 10/10/16 15:40 Primary care physician: PCP NO Consults: 10/10/16 19:24 Consult to Cardiology [CONS] Routine Comment: Consulting Provider: Cardiology Denise Reason for Consult: Patient had recent stent placement this month and returns to ED with chest pain, SOB, and diaphoresis. Will repeat echocardiogram. Call Completed: No Discharging clinician: Concepcion Sena Anticipated date of discharge: 10/13/16 - Patient Status Disposition: Home, Self-Care Condition: Fair Functional capacity at discharge: independent ambulation Overall status at discharge: patient is back to baseline - Discharge Instructions Follow Up With: Kelechi Bernardo CNP [Advanced Practice Nurse] - 10/22/16 8:00 am Lance Cronin MD [Partnered Physician] - Additional Instructions: Follow-up with primary care provider within one to 2 weeks, follow-up with cardiology as scheduled - Diet and Activity Activity: increase activity as tolerated Diet: diabetic diet, low fat, low cholesterol, low salt diet Hospital course: Mr. Pizarro is a 75 year old male with past medical history of CAD status post CABG and pacemaker, asthma, CVA, diabetes, hypertension, thyroid disease, cholecystectomy, former tobacco abuse. Patient presented to the emergency department chief complaint of chest pain that began on the morning of presentation when woke him up early in the morning described as sharp, stabbing that then became a pressure like sensation. Patient stating he has had chest pain before but not like this. He also endorsed shortness of breath and diaphoresis. Patient stating he is active in his personal life walking several miles per day. Of note, patient had a left heart catheter this month where a stent was placed. Left heart catheter 10/04/16 JATINDER to ostial RCA and PTCA to distal RCA with patent 2/2 bypass grafts. Patient also had an echocardiogram in May of this year that revealed ejection fraction of 35-40% with global hypokinesis. Workup in the emergency department unremarkable. Chest x-ray negative. Patient was admitted to the hospitalist service for further evaluation and management. Cardiology was brought on board. Troponins negative 3. Repeat echocardiogram revealing preserved ejection fraction of 40% . Patient's chest pain is reproducible with palpation and consistent with musculoskeletal etiology and improved with NSAIDs. He was cleared for outpatient follow-up per cardiology. Incidental finding of abnormal urinalysis with positive urine culture consistent with Staphylococcus epidermis. This is the patient's third urine culture with the same findings and this is consistent with a contamination. Patient does not require antibiotics. He denied dysuria , no leukocytosis or signs of acute infection. Mild acute kidney injury resolved. He was started on low-dose TEE inhibitor per cardiology and tolerated it well. No acute exacerbation of his combined heart failure. Patient also had heartburn while admitted that was abated with Tums. However, because he did state that the epigastric pain radiated between his shoulder blades, so abdominal labs were checked and were normal. He tolerated a regular diet while admitted. He also complained of dizziness with standing that resolved prior to discharge. Orthostatic vital signs unremarkable. He was discharged home in stable condition with close outpatient follow-up recommended. ITS Impressions Chest X-Ray 10/10/16 13:57 IMPRESSION: 1. No radiographic finding to account for patient's chest pain. D/ / Dayne Joyce MD / Dayne Joyce MD Interpreting Provider: Dayne Joyce MD Echocardiogram impressions: LVEF 40%. Normal LV chamber size. Mild concentric left ventricular hypertrophy. Global left ventricular systolic dysfunction. Indeterminate diastolic function. Atypical septal motion consistent with paced rhythm. Normal right ventricular structure and function. Unable to estimate RVSP due to lack of TR jet. A device lead was visualized in the right atrium and the right ventricle. No significant valvular dysfunction. - Time Spent with Patient Total time spent providing and/or coordinating discharge services: - Constitutional Vitals: Temp Pulse Resp BP Pulse Ox 97.6 F 66 15 156/82 99 10/13/16 07:34 10/13/16 07:34 10/13/16 07:34 10/13/16 07:34 10/13/16 07:34 General appearance: Present: cooperative, A&O X 3, pleasant, no acute distress, answers questions appropriately - Head Head exam: Present: atraumatic, normocephalic - Eye Eye exam: Present: PERRL, conjuntiva pink, sclera anicteric Pupils: Present: PERRL - Neck Neck exam general surgery: Present: supple, trachea midline. Absent: lymphadenopathy - Respiratory Respiratory exam: Present: chest wall tenderness, CTAB. Absent: accessory muscle use, rales, respiratory distress, rhonchi, wheezes - Cardiovascular Cardiovascular exam: Present: RRR, +S1, +S2. Absent: diastolic murmur, gallop, rubs, systolic murmur - GI/Abdominal GI/Abdominal exam: Present: normal bowel sounds, soft, no peritoneal signs. Absent: distended, tenderness - Extremities Exam Extremities exam: Present: warm, radial pulses palpable and symetrical. Absent : calf tenderness, cyanotic, pedal edema - Neurological Exam Neurological exam: Present: alert, CN II-XII intact, normal gait, oriented X3, no focal deficits, strengths equal and symetr throughout. Absent: pronater drift, facial droop, speech deficit - Skin Skin exam: Present: dry, intact, normal color, warm
[2016-10-13 11:26] VITALS: BP 122/70
== END 2016-10-13 12:35 | disposition home or self-care (01) ==
LOC: 3BNU 13:53 → EMEROO 13:53 → SUATTDRO 15:40 → 3BNU 16:28
PROVIDERS: ADMIT Internal Medicine; ATTEND Nurse Practitioner Family

== ENCOUNTER 2016-10-16 05:39 | Observation (INO) ==
[2016-10-16] MEDS ORDERED: Aspirin 81 MG TAB.CHEW PO ONE (06:09)
[2016-10-16 06:13] LABS: Basophils # 0.1 K/mcL (0.0-0.2); Basophils % 0.9 %; Eosinophils # 0.3 K/mcL (0.0-0.6); Eosinophils % 3.8 %; Hematocrit 45.3 % (37.5-50.1); Hemoglobin 15.8 g/dL (12.9-16.9); Immature Granulocytes % 0.2 % (0-4); Lymphocytes # 2.1 K/mcL (0.6-4.6); Mean Corpuscular HGB Conc 34.9 g/dL (31.6-35.5); Mean Corpuscular Hemoglobin 29.5 pg (28.0-33.3); Mean Corpuscular Volume 84.5 fL (83.0-100.0); Mean Platelet Volume 11.2 fL (9.4-12.4); Monocytes # 0.7 K/mcL (0.0-1.3); Monocytes % 7.8 %; Neutrophils # 5.7 K/mcL (1.6-8.9); Platelet Count 157 K/mcL (140-400); Red Blood Count 5.36 M/mcL (4.19-5.50); Segmented Neutrophils % 64.3 %
--- NOTE | 2016-10-16 06:15 | Emergency Department Note ---
Disposition Clinical Impression: Chest pain Qualifiers: Chest pain type: unspecified Qualified Code(s): R07.9 - Chest pain, unspecified Disposition: Admitted As Inpatient Condition: Fair Referrals: NONE,PCP [Primary Care Provider] - Forms: ED Satisfaction Letter Time of Disposition: 06:53 Arrhythmia/Palpitations HPI - General Chief Complaint: ED Arrhythmia/Palpitations Stated Complaint: defib went off Time Seen by Provider: 10/16/16 06:00 Source: patient, EMS Limitations: no limitations Nursing Notes Reviewed: Yes Vital Signs Reviewed: Yes - History of Present Illness HPI Narrative: 75-year-old male history of hypertension, hyperlipidemia, diabetes, CAD, cardiomyopathy, presents after an episode of his pacemaker possibly firing. He states that about half an hour prior to arrival, he was laying in bed and woke up to pain in his chest with the sharp pain of possible firing of his pacemaker ? He states that he has never had it fire before he has had it for 5 years for cardiomyopathy, he recently had a catheter on records review he had PTCA to the Distal and Proximal RCA. On records review, the patient is a dual-chamber pacemaker and does not have a defibrillator. Reports some shortness of breath. His pain was 8 out of 10, felt like it shocked his heart causing pain in his mid chest and left chest. Denies recent fever, chills, shortness of breath, productive cough. 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 Denies: syncope , near-syncope, nausea, vomiting, anxiety, diaphoresis, cough - Related Data Home Medications Medication Instructions Recorded Confirmed Nitroglycerin [Nitrostat] 0.4 mg SL Q5M PRN 10/01/16 10/10/16 Previous Rx's Medication Instructions Recorded Aspirin Enteric Coated [Aspirin EC] 81 mg PO DAILY #30 tablet. 02/21/16 Atorvastatin [Lipitor] 40 mg PO HS #30 tablet 02/21/16 Furosemide [Lasix] 40 mg PO DAILY #30 tablet 02/21/16 Carvedilol [Coreg] 3.125 mg PO BIDWM #30 tab 10/05/16 Clopidogrel [Plavix] 75 mg PO DAILY #30 tab 10/05/16 Isosorbide MONOnitrate (24 HR) 90 mg PO DAILY #90 10/05/16 [Imdur] Rivaroxaban [Xarelto] 15 mg PO 1700 #30 tab 10/05/16 amLODIPine [Norvasc] 10 mg PO DAILY #30 tab 10/05/16 Lisinopril [Zestril] 2.5 mg PO DAILY #15 tab 10/13/16 Allergies Allergy/AdvReac Type Severity Reaction Status Date / Time Oxycodone [From Percocet] Allergy Hives Verified 10/01/16 16:37 tramadol Allergy Hives Verified 10/01/16 16:37 Review of Systems: 10 Point ROS was performed and negative except as per below or as documented in HPI. Constitutional: Denies: fever Eyes: Denies: eye pain ENT: Denies: nasal congestion CV: +chest pain Resp: Denies: cough, hemoptysis GI: Denies: abdominal pain, hematochezia Denies: dysuria, hematuria MSK: Denies: back pain, neck pain, extremity pain Skin: Denies: new rashes Neuro: Denies: paresthesias or weakness All systems ED: reviewed and negative except as stated. Review of Systems: As Per HPI Past Medical History - Past Medical History Attestation: Yes The following information was validated with the patient. Source: patient Medical history: Reports: asthma, atrial fibrillation, coronary artery disease, CVA, diabetes, hypertension, myocardial infarction, thyroid disease Surgical history: Reports: cholecystectomy, coronary bypass (CABG), pacemaker/ AICD Psychiatric history: Reports: no psych history - Social History Smoking Status: Former smoker Smokeless Tobacco Status: No Alcohol use: Reports: none Drug use: Reports: none Physical Exam Constitutional: No acute distress paced rhythm. Eyes: PERRLA, sclera anicteric ENT & Mouth: NCAT, normal external ears bilaterally, MMM Neck: normal inspection, neck is supple Resp: CTA bilaterally, no resp distress CV: Midline surgical incision well-healed. Consistent with with CABG Left sided pacemaker. GI: normal inspection, soft, no guarding or rigidity Back: normal inspection, no tenderness to palpation Neuro: A&O3, CNII-XII grossly intact, DAVID[place] MSK: no gross deformities, normal ROM UE and LE Skin: on limited exam, skin intact with no rashes or lesions - General Limitations: no limitations General appearance: alert, in no apparent distress Course Course Narrative: 75-year-old male concerned that he had a pacemaker firing, on review he just has a pacemaker and not an AICD. Peer.imtronic shows no events, nor with her the events given that he has a pacemaker, since he has a recent stent placed a week and a half ago, plan to admit the patient for chest pain rule out. Concern for post-stent occlusion. - Reevaluation(s) Reevaluation #1: Accepted by Dr Fish in stable condition now is chest pain free, trop non elevated but pain was Just prior to Arrival, patient given aspirin, Zofran for nausea, admitted for chest pain rule out post catheter. Time: 06:52 Vital Signs Temperature 98.1 F 10/16/16 05:42 Pulse Rate 75 10/16/16 05:42 Respiratory Rate 20 10/16/16 05:42 Blood Pressure 188/99 10/16/16 05:42 O2 Sat by Pulse Oximetry 99 10/16/16 05:42 Temperature 98.1 F 10/16/16 05:42 Pulse Rate 75 10/16/16 05:42 Respiratory Rate 20 10/16/16 05:42 Blood Pressure 188/99 10/16/16 05:42 O2 Sat by Pulse Oximetry 99 10/16/16 05:48 Oxygen Delivery Oxygen Delivery Room Air Arrhythmia/Palpitations - Differential Diagnosis Differential Diagnosis: Likely: palpitations, ventricular premature beats, ventricular tachycardia - Medical Records Medical records reviewed: Yes I reviewed the patient's medical records. - Lab Data Lab results reviewed: Yes I reviewed the patient's lab results. - Radiology Data Radiology results reviewed: Yes I reviewed the patient's radiology results. Chest X-Ray 10/16/16 05:51 IMPRESSION: Stable mild cardiomegaly. No acute pulmonary disease. D/ / Natalio Copeland MD / Natalio Copeland MD Interpreting Provider: Natalio Copeland MD - EKG Data EKG attestation: Yes I reviewed and interpreted this EKG. EKG shows normal: sinus rhythm Rate: normal (She 5 bpm UT 146 QRS 209 QTc 522 AV paced, unchanged from previous EKG October 11) Rhythm: NSR [place]/QRS: normal - Core Measures AMI Core Measures Followed: Yes
[2016-10-16 06:41] LABS: BUN/Creatinine Ratio 16 (6-26); Blood Urea Nitrogen 16 mg/dL (8-26); Calcium 9.7 mg/dL (8.6-10.8); Carbon Dioxide 25 mEq/L (19-29); Chloride 105 mEq/L (98-109); Glucose 153 mg/dL (70-99); Osmolality,Calculated 292 (280-300); Potassium 3.6 mEq/L (3.5-4.5); Sodium 139 mEq/L (136-145); eGFR For African Americans > 60 (> 60); eGFR For Non-African Americans > 60 (> 60)
[2016-10-16] MEDS ORDERED: Ondansetron 4 MG/2 ML VIAL IVP ONE (06:44)
--- NOTE | 2016-10-16 06:52 | Emergency Department Note ---
START Narrative - START START: I examined this patient and my medical decision-making was reviewed with the Resident Physician. I agree with the documented findings, disposition and treatment plan as described except to the extent set forth below. Patient emergency department chest pain. Patient thinks his defibrillator fired. Patient is status post catheter with PTCA recently. On exam he is in no acute distress sitting on the side of the bed. Heart regular lungs clear. Plan. The patient's pacemaker was interrogated. The patient does not have a defibrillator. EKG is paced and unchanged. He is having some chest pain. 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
[2016-10-16] MEDS ORDERED: *HR* Morphine 2 MG/ML SYRINGE IVP PRN (07:54)
--- NOTE | 2016-10-16 09:58 | Internal Med History&Physical ---
Date of Encounter: 10/16/16 Time of Encounter: 09:51 Assessment and Plan (1) Atypical chest pain Current visit: No Status: Acute Will placed the patient into telemetry for observation his reproducible chest pain seems to be atypical mostly coming from costochondritis and possible anxiety however due to his severe triple vessel CAD, he is at high risk for CAD we will check serial troponins Place him on cardiac tech Cont ASA, Plavix and B fuentes Coreg also will place him on low dose of Ativan PRN Placed on Nitro SL PRN (2) CAD (coronary artery disease) Current visit: No Status: Chronic Resumed home med ASA, Plavix and B blcoker Cont Imdur, ACEI his recent the 2-D echo from 10/11/16 showing LVEF 40% mild concentric hypertrophy with a global left ventricular systolic dysfunction and indeterminate diastolic function Qualifiers: Coronary Disease-Associated Artery/Lesion type: bypass graft [place] vs. transplanted heart: hoh heart Associated angina: without angina Qualified Code(s): I25.810 - Atherosclerosis of coronary artery bypass graft(s) without angina pectoris (3) Pacemaker Current visit: No Status: Chronic seems to be working well. no further work up needed (4) HTN (hypertension) Current visit: No Status: Chronic Not well controlled since he missed his morning meds so will give him all his home meds initially if BP still stays above 160 , will give him Hydralazine IV PRN Qualifiers: Hypertension type: essential hypertension Qualified Code(s): I10 - Essential (primary) hypertension (5) HLD (hyperlipidemia) Current visit: No Status: Chronic on Statin Qualifiers: Hyperlipidemia type: pure hypercholesterolemia Qualified Code(s): E78.00 - Pure hypercholesterolemia, unspecified; E78.0 - Pure hypercholesterolemia (6) DM2 (diabetes mellitus, type 2) Current visit: No Status: Chronic Will check HbA1C Unable to find any home meds for his DM2 Will start him on low dose ISS try to obtain records from PCP to review his home meds list Qualifiers: Diabetes mellitus complication status: with circulatory complication Diabetes mellitus complication detail: with other circulatory complications 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 Pizarro is a 75 year old male history of hypertension, hyperlipidemia, diabetes, CAD,cardiomyopathy, presented to ER c/o left side chest pain around his pacemaker area started this morning around 2. 00 AM. He states that about half an hour prior to arrival, he was laying in bed and woke up to pain in his chest with the sharp pain of possible firing of his pacemaker? He recently had Left heart catheter showed severe three vessel CAD and placed JATINDER to ostial RCA , Distal RCA, and patent 2/2 bypass grafts noticed. On records review, the patient is a dual-chamber pacemaker and does not have a defibrillator. His pain is 4 out of 10, feels like tightness and non radiating pain. Past Med Surg Social Fam HX - Past Medical History Medical history: asthma, atrial fibrillation, coronary artery disease, CVA, diabetes, hypertension, myocardial infarction, thyroid disease Psychiatric history: no psych history - Past Surgical History Surgical History: cholecystectomy, coronary bypass (CABG), pacemaker/AICD - Social History Smoking Status: Former smoker Smokeless Tobacco Status: No Alcohol use: none Drug use: none - Family History Grandfather Living Status: Hx Family Cardiac Disorders: Yes Mother Living Status: Father Adopted: No Living Status: Hx Family Cardiac Disorders: No Hx Family Respiratory Disorders: No Hx Family Cancer: Yes Hx Family GI Disorders: No Hx Family Endocrine Disorder: No Hx Family Neuromuscular Disorders: No Hx Family Neurologic Disorders: No Hx Family HEENT Disorders: No Hx Family Autoimmune Disorders: No Internal Medicine - H&P: Meds Aspirin Enteric Coated [Aspirin EC] 81 mg PO DAILY #30 tablet. 02/21/16 [Rx] Atorvastatin [Lipitor] 40 mg PO HS #30 tablet 02/21/16 [Rx] Furosemide [Lasix] 40 mg PO DAILY #30 tablet 02/21/16 [Rx] Nitroglycerin [Nitrostat] 0.4 mg SL Q5M PRN 10/01/16 [History] Carvedilol [Coreg] 3.125 mg PO BIDWM #30 tab 10/05/16 [Rx] Clopidogrel [Plavix] 75 mg PO DAILY #30 tab 10/05/16 [Rx] Isosorbide MONOnitrate (24 HR) [Imdur] 90 mg PO DAILY #90 10/05/16 [Rx] Rivaroxaban [Xarelto] 15 mg PO 1700 #30 tab 10/05/16 [Rx] amLODIPine [Norvasc] 10 mg PO DAILY #30 tab 10/05/16 [Rx] Lisinopril [Zestril] 2.5 mg PO DAILY #15 tab 10/13/16 [Rx] Allergies Oxycodone [From Percocet] Allergy (Verified 10/01/16 16:37) Hives tramadol Allergy (Verified 10/01/16 16:37) Hives All Systems PM: A 10-system review of systems was performed and is negative for pertinent findings except as documented above in the HPI. Review of systems: All the systems are reviewed everything is benign except the systems and symptoms I mentioned in the history of present illness - Constitutional Vitals: Temp Pulse Resp BP Pulse Ox 97.9 F 71 16 190/96 99 10/16/16 09:45 10/16/16 09:45 10/16/16 09:45 10/16/16 09:45 10/16/16 09:45 Internal Med - H&P Results - Labs CBC & Chem 7: 10/16/16 06:05 10/16/16 06:21 Labs: Cardiac Enzymes 10/16/16 Range/Units 09:20 Troponin I 0.03 (0-0.03) ng/mL - EKG Data -: EKG Interpreted by Myself (Paced rythm VR @ 65, no ST elevation / depression)
[2016-10-16] MEDS ORDERED: Dextrose Gel 15 GM PO PRN ×2 (10:13)
[2016-10-16] MEDS ORDERED: *HR* Dextrose 50 % in Water (Syg) 50 ML SYRINGE IVP PRN (10:13)
[2016-10-16] MEDS ORDERED: D5% in Water 1,000 ML IVC PRN (10:13)
[2016-10-16] MEDS: Furosemide 40 MG TABLET PO SCH (10:50)
[2016-10-16] MEDS: amLODIPine 5 MG TABLET PO SCH (10:50)
[2016-10-16] MEDS: Aspirin 81 MG TAB.CHEW PO SCH (10:51)
[2016-10-16] MEDS: Isosorbide MONOnitrate (24 HR) 30 MG TAB.ER.24H PO SCH (10:51)
[2016-10-16] MEDS: Nitroglycerin 0.4 MG TAB.SUBL SL PRN ×2 (10:57→15:25)
[2016-10-16 11:13] LABS: Hemoglobin A1C 7.5 %
[2016-10-16] MEDS: Insulin LISPRO 300 UNITS/3 ML VIAL SQ SCH ×2 (12:21→17:24)
[2016-10-16] MEDS: Ondansetron 4 MG/2 ML VIAL IVP PRN ×2 (15:24→19:42)
[2016-10-16] MEDS ORDERED: *HR* Rivaroxaban 15 MG TABLET PO SCH (17:00)
[2016-10-17] MEDS: Nitroglycerin 0.4 MG TAB.SUBL SL PRN ×2 (03:22→05:21)
[2016-10-17] MEDS: Ondansetron 4 MG/2 ML VIAL IVP PRN ×2 (03:25→09:42)
[2016-10-17 05:49] LABS: BUN/Creatinine Ratio 15 (6-26); Blood Urea Nitrogen 18 mg/dL (8-26); Calcium 9.6 mg/dL (8.6-10.8); Carbon Dioxide 26 mEq/L (19-29); Chloride 105 mEq/L (98-109); Glucose 136 mg/dL (70-99); Magnesium 1.8 mg/dL (1.6-2.6); Osmolality,Calculated 292 (280-300); Potassium 3.7 mEq/L (3.5-4.5); Sodium 139 mEq/L (136-145); eGFR For African Americans > 60 (> 60); eGFR For Non-African Americans 58 (> 60)
[2016-10-17] MEDS: Aspirin 81 MG TAB.CHEW PO SCH (08:17)
[2016-10-17] MEDS: Isosorbide MONOnitrate (24 HR) 30 MG TAB.ER.24H PO SCH (08:17)
[2016-10-17] MEDS: Furosemide 40 MG TABLET PO SCH (08:17)
[2016-10-17] MEDS: Insulin LISPRO 300 UNITS/3 ML VIAL SQ SCH (08:18)
[2016-10-17] MEDS: amLODIPine 5 MG TABLET PO SCH (08:18)
[2016-10-17 11:21] VITALS: BP 125/70
--- NOTE | 2016-10-17 12:00 | Discharge Summary ---
Date of Encounter: 10/17/16 Time of Encounter: 11:00 - Discharge Diagnosis (1) Chest pain Priority: Primary Status: Acute Qualifiers: Chest pain type: intercostal pain Qualified Code(s): R07.82 - Intercostal pain (2) DVT prophylaxis Priority: Secondary Status: Acute (3) CAD (coronary artery disease) Priority: Secondary Status: Chronic Qualifiers: Coronary Disease-Associated Artery/Lesion type: bypass graft [place] vs. transplanted heart: [place] heart Associated angina: without angina Qualified Code(s): I25.810 - Atherosclerosis of coronary artery bypass graft(s) without angina pectoris (4) DM2 (diabetes mellitus, type 2) Priority: Secondary Status: Chronic Qualifiers: Diabetes mellitus complication status: with circulatory complication Diabetes mellitus complication detail: with other circulatory complications Diabetes mellitus skilled nursing insulin use: without skilled nursing use Qualified Code( s): E11.59 - Type 2 diabetes mellitus with other circulatory complications (5) GERD (gastroesophageal reflux disease) Priority: Primary Status: Chronic Qualifiers: Esophagitis presence: without esophagitis Qualified Code(s): K21.9 - Gastro -esophageal reflux disease without esophagitis (6) Hypertension Priority: Secondary Status: Chronic Qualifiers: Hypertension type: essential hypertension Qualified Code(s): I10 - Essential (primary) hypertension (7) Pacemaker Priority: Secondary Status: Chronic (8) Paroxysmal a-fib Priority: Secondary Status: Chronic - Discharge Medications Prescriptions: Naproxen [Naprosyn] 250 mg PO BID #14 tab Omeprazole [PriLOSEC] 20 mg PO BIDAC #60 Home Medications: Aspirin Enteric Coated [Aspirin EC] 81 mg PO DAILY #30 tablet.dr 02/21/16 [Rx] Atorvastatin [Lipitor] 40 mg PO HS #30 tablet 02/21/16 [Rx] Furosemide [Lasix] 40 mg PO DAILY #30 tablet 02/21/16 [Rx] Nitroglycerin [Nitrostat] 0.4 mg SL Q5M PRN 10/01/16 [History] Carvedilol [Coreg] 3.125 mg PO BIDWM #30 tab 10/05/16 [Rx] Clopidogrel [Plavix] 75 mg PO DAILY #30 tab 10/05/16 [Rx] Isosorbide MONOnitrate (24 HR) [Imdur] 90 mg PO DAILY #90 10/05/16 [Rx] Rivaroxaban [Xarelto] 15 mg PO 1700 #30 tab 10/05/16 [Rx] amLODIPine [Norvasc] 10 mg PO DAILY #30 tab 10/05/16 [Rx] Lisinopril [Zestril] 2.5 mg PO DAILY #15 tab 10/13/16 [Rx] Naproxen [Naprosyn] 250 mg PO BID #14 tab 10/17/16 [Rx] Omeprazole [PriLOSEC] 20 mg PO BIDAC #60 10/17/16 [Rx] Allergies/Adverse Reactions: Allergies Oxycodone [From Percocet] Allergy (Verified 10/01/16 16:37) Hives tramadol Allergy (Verified 10/01/16 16:37) Hives Date of admission: 10/16/16 08:25 Primary care physician: PCP DEEPTHI Discharging clinician: Jamie De La Cruz Anticipated date of discharge: 10/17/16 - Patient Status Disposition: Home, Self-Care Condition: Fair Functional capacity at discharge: independent ambulation Overall status at discharge: patient is progressing back to baseline - Discharge Instructions Follow Up With: NONE,PCP [Primary Care Provider] - - Diet and Activity Activity: increase activity as tolerated Diet: low fat, low cholesterol, low salt diet Interval History: HPI: Mr. Pizarro is a 75 year old male history of hypertension, hyperlipidemia, diabetes, CAD,cardiomyopathy, presented to ER c/o left side chest pain around his pacemaker area started this morning around 2. 00 AM. He states that about half an hour prior to arrival, he was laying in bed and woke up to pain in his chest with the sharp pain of possible firing of his pacemaker? He recently had Left heart catheter showed severe three vessel CAD and placed JATINDER to ostial RCA , Distal RCA, and patent 2/2 bypass grafts noticed. On records review, the patient is a dual-chamber pacemaker and does not have a defibrillator. His pain is 4 out of 10, feels like tightness and non radiating pain. Hospital course: Mr. Pizarro is a 75 year old male admitted for chest pain. Patient had history of CAD had LHC/stenting on 10/03/16. Patient was placed on continuous cardiac monitoring, 3 sets of troponin has been tracked. Results shows 3 sets of troponin negative. EKG and chest x-ray unremarkable. Patient's pain is inducible with chest wall tenderness. Patient also complaining of heartburn and has a history of GERD. Patient has a recent hospitalization last week for the same reason. Workup will include echocardiogram has been done. Cardiology consult also was called the last time. Cardiology recommendation has been reviewed. I saw and examined the patient today. He still complains of chest pain, which is a chest wall pain with clear tenderness of chest wall, pain is constant. Patient denies shortness of breath, nausea, diaphoresis. Vitals are stable. Consider skeletal muscular pain. Will give naproxen 250 mg by mouth twice a day for the pain. I will also give omeprazole 20mg po bid for the GERD. Patient is not warranted to be continuely monitored in hospital. He will be discharged home and to follow-up with PCP and cardiology as outpatient. - Time Spent with Patient Total time spent providing and/or coordinating discharge services: 25 minute Less than 30 minutes - Constitutional Vitals: Temp Pulse Resp BP Pulse Ox 98.5 F 72 16 125/70 94 10/17/16 11:20 10/17/16 11:20 10/17/16 11:20 10/17/16 11:20 10/17/16 11:20 General appearance: Present: A&O X 3, no acute distress, answers questions appropriately - Head Head exam: Present: atraumatic, normocephalic - Eye Eye exam: Present: PERRL, conjuntiva pink, sclera anicteric Pupils: Present: PERRL - Neck Neck exam general surgery: Present: supple, trachea midline. Absent: lymphadenopathy - Respiratory Respiratory exam: Present: chest wall tenderness, CTAB. Absent: accessory muscle use, rales, rhonchi, wheezes - Cardiovascular Cardiovascular exam: Present: RRR, +S1, +S2. Absent: diastolic murmur, gallop, rubs, systolic murmur - GI/Abdominal GI/Abdominal exam: Present: normal bowel sounds, soft, no peritoneal signs. Absent: distended, tenderness - Extremities Exam Extremities exam: Present: warm, radial pulses palpable and symetrical. Absent : calf tenderness, cyanotic, pedal edema - Neurological Exam Neurological exam: Present: CN II-XII intact, oriented X3, no focal deficits. Absent: pronater drift, facial droop, speech deficit - Skin Skin exam: Present: dry, intact
--- NOTE | 2016-10-17 18:47 | Electrocardiograph Report ---
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
== END 2016-10-17 13:41 | disposition home or self-care (01) ==
LOC: 3BNU 05:39 → EMEROO 05:39 → 3BNU 09:25
PROVIDERS: ADMIT Family Medicine; ATTEND Nurse Practitioner Family

== ENCOUNTER 2016-11-01 19:09 | Inpatient (IN) ==
[2016-11-01] MEDS ORDERED: *HR* Morphine 2 MG/ML SYRINGE IVP ONE (19:30)
--- NOTE | 2016-11-01 19:32 | Emergency Department Note ---
Disposition Clinical Impression: NSTEMI (non-ST elevated myocardial infarction) Disposition: Admitted As Inpatient Condition: Good Time of Disposition: 21:27 Chest Pain HPI - General Chief Complaint: ED Chest Pain Stated Complaint: chest pain Time Seen by Provider: 11/01/16 19:20 Source: patient, EMS Limitations: no limitations Vital Signs Reviewed: Yes Nursing Notes Reviewed: Yes - History of Present Illness HPI Narrative: 75 year old male who is well known to the department and was seen yesterady and this morning is complaining of chest pain. PAtinet states that he had midsternal chest pain that radiates into his left arm. Patinet states that he has had pacemaker pain in the past and that right now there is no change in his chest pain but it is constant since this morning. Teresa states that he hsa not had nausea or vomitting but is experiencing shortness of breath. He was seen ysetrday for simliar symptoms. Teresa states that his last SC was in 1967 when he had a CABG and is unsure if he has stents placed or not. He is poor historian and I will review his old records. Denies all other symptoms. Severity scale (1-10): 10 - Related Data Home Medications Medication Instructions Recorded Confirmed Nitroglycerin [Nitrostat] 0.4 mg SL Q5M PRN 10/01/16 11/01/16 Previous Rx's Medication Instructions Recorded Aspirin Enteric Coated [Aspirin EC] 81 mg PO DAILY #30 tablet. 02/21/16 Atorvastatin [Lipitor] 40 mg PO HS #30 tablet 02/21/16 Furosemide [Lasix] 40 mg PO DAILY #30 tablet 02/21/16 Carvedilol [Coreg] 3.125 mg PO BIDWM #30 tab 10/05/16 Clopidogrel [Plavix] 75 mg PO DAILY #30 tab 10/05/16 Isosorbide MONOnitrate (24 HR) 90 mg PO DAILY #90 10/05/16 [Imdur] Rivaroxaban [Xarelto] 15 mg PO 1700 #30 tab 10/05/16 amLODIPine [Norvasc] 10 mg PO DAILY #30 tab 10/05/16 Lisinopril [Zestril] 2.5 mg PO DAILY #15 tab 10/13/16 Naproxen [Naprosyn] 250 mg PO BID #14 tab 10/17/16 Omeprazole [PriLOSEC] 20 mg PO BIDAC #60 10/17/16 Allergies Allergy/AdvReac Type Severity Reaction Status Date / Time Oxycodone [From Percocet] Allergy Hives Verified 10/19/16 17:21 tramadol Allergy Hives Verified 10/19/16 17:21 Constitutional: Denies: fever, chills, weakness, weight change Eyes: Denies: eye pain, eye discharge, vision change ENT ED: Denies: ear pain, throat pain, dental pain, hearing loss, epistaxis, congestion, dysphagia Cardiovascular: Reports: chest pain. Denies: palpitations, dyspnea on exertion , edema, syncope Respiratory: Reports: dyspnea. Denies: cough, wheezes, hemoptysis, stridor Gastrointestinal: Denies: abdominal pain, nausea, vomiting, diarrhea, constipation, hematemesis, melena, hematochezia Genitourinary: Denies: urgency, dysuria, frequency, hematuria Musculoskeletal: Denies: back pain, neck pain, arthralgia, myalgia Integumentary: Denies: rash, abrasion, lesions Neurological: Denies: headache, weakness, numbness, paresthesias, confusion, abnormal gait, vertigo Psychiatric: Denies: anxiety, depression, suicidal thoughts, homicidal thoughts , auditory hallucinations, visual hallucinations Endocrine: Denies: fatigue Hematological/Lymphatic: Denies: easy bleeding, easy bruising Allergic/Immunologic: Denies: facial swelling, urticaria Chest Pain PMH - Past Medical History Medical history: Reports: asthma, atrial fibrillation, coronary artery disease, CVA, diabetes, hypertension, myocardial infarction, thyroid disease Surgical history: Reports: cholecystectomy, coronary bypass (CABG), pacemaker/ AICD Psychiatric history: Reports: no psych history - Social History Smoking Status: Former smoker Alcohol use: Reports: none Drug use: Reports: none Physical Exam - General Limitations: no limitations General appearance: alert, anxious - Head Head exam: atraumatic, normocephalic, normal inspection - Eye Eye exam: Present: normal appearance, PERRL, EOMI - Expanded Eye Exam Pupils: Left: reactive - ENT ENT exam: normal exam, normal oropharynx, mucous membranes moist - Expanded ENT Exam External ear exam: Present: normal external inspection Mouth exam: Present: normal external inspection Teeth exam: Present: normal inspection Throat exam: Present: normal inspection - Neck Neck exam: Present: normal inspection, full ROM, trachea midline - Chest Chest inspection: Present: normal inspection, symmetric chest wall rise - Respiratory Respiratory exam: Present: normal lung sounds bilaterally - Cardiovascular Cardiovascular exam: Present: regular rate, normal rhythm, normal heart sounds - Abdominal Exam Abdominal exam: Present: soft, Non-Tender. Absent: tenderness, distention, guarding, rebound, rigidity - Extremities Exam Extremities exam: Present: normal inspection, full ROM. Absent: tenderness, pedal edema - Expanded Upper Extremity Exam Shoulder exam: Present: normal inspection, full ROM Arm exam: Present: normal inspection, full ROM Elbow exam: Present: normal inspection, full ROM Forearm/Wrist exam: Present: normal inspection, full ROM Hand exam: Present: normal inspection, full ROM Vascular exam: Normal: capillary refill, radial pulse - Expanded Lower Extremity Exam Hip/Pelvis exam: Present: normal inspection, full ROM Upper leg exam: Present: normal inspection, full ROM Knee exam: Present: normal inspection, full ROM Lower leg exam: Present: normal inspection, full ROM Ankle exam: Present: normal inspection, full ROM Foot/toe exam: Present: normal inspection, full ROM Neurovascular/Tendon exam: Absent: motor deficit, sensory deficit, tendon deficit - Back Exam Back exam: Present: normal inspection, full ROM. Absent: tenderness - Neurological Exam Neurological exam: Present: alert, oriented X3 - Expanded Neurological Exam Patient oriented to: Present: person, place, time Coma Scale Eye Opening: Spontaneous Coma Scale Motor Response: Obeys Commands Coma Scale Verbal Response: Oriented Coma Scale Total: 15 - Psychiatric Psychiatric exam: Present: normal affect, normal mood - Skin Skin exam: Present: warm, dry, intact, normal color Course Course Narrative: we will do a repeat workup on chest pain and review old charts. Morphine for pain contorl. The monitor states that his pacemaker may be dropping to 30-40s bpm although it has a noisy signal and he is messing wit his leads and the pulse ox bmp is in the 60s consistently. - Reevaluation(s) Reevaluation #1: patient has an elevatd troponin level which he did not have this morning WE irina admit to medicine for chest pain r/o ACS and elevated troponin. he most recently had a 2V CABG in 2002, S/p PCI to the RCA on 10/10/16. We will consult floorman for need for heparin therapy. Time: 21:10 - Consultations Consultation #1: discussed case with Dr. Garcia and he would madisyn teresa started on heparin and admitted to medicine. Time: 21:26 Consultation #2: discussed case with Dr. Suazo and he accepts teresa for admission Time: 21:31 Vital Signs Temperature 97.6 F 11/01/16 19:12 Pulse Rate 64 11/01/16 19:12 Respiratory Rate 20 11/01/16 19:12 Blood Pressure 173/103 11/01/16 19:12 O2 Sat by Pulse Oximetry 100 11/01/16 19:12 Temperature 97.6 F 11/01/16 19:12 Pulse Rate 95 11/01/16 22:11 Respiratory Rate 18 11/01/16 22:11 Blood Pressure 155/88 11/01/16 22:11 O2 Sat by Pulse Oximetry 96 11/01/16 22:11 Oxygen Delivery Oxygen Delivery Room Air Chest Pain - Lab Data Result diagrams: 11/01/16 17:20 11/01/16 17:20 Lab Results 11/01/16 11/01/16 11/01/16 Range/Units 17:20 17:20 17:20 WBC 15.8 H D (4.3-11.1) K/mcL RBC 5.97 H (4.19-5.50) M/mcL Hgb 17.0 H (12.9-16.9) g/dL Hct 50.1 (37.5-50.1) % MCV 83.9 (83.0-100.0) fL MCH 28.5 (28.0-33.3) pg MCHC 33.9 (31.6-35.5) g/dL RDW 13.6 (11.5-14.5) % Plt Count 189 (140-400) K/mcL MPV 11.4 (9.4-12.4) fL Immature Gran % 0.4 (0-4) % Seg Neutrophils % 82.4 % Lymphocytes % 10.2 % Monocytes % 5.9 % Eosinophils % 0.6 % Basophils % 0.5 % Neutrophils # 13.0 H (1.6-8.9) K/mcL Lymphocytes # 1.6 (0.6-4.6) K/mcL Monocytes # 0.9 (0.0-1.3) K/mcL Eosinophils # 0.1 (0.0-0.6) K/mcL Basophils # 0.1 (0.0-0.2) K/mcL Immature Plt Fraction 5.8 (1.1-6.1) % PT 11.6 (9.4-12.1) Seconds INR 1.1 APTT 27.7 (26.0-36.0) Seconds Sodium 141 (136-145) mEq/L Potassium 3.8 (3.5-4.5) mEq/L Chloride 104 (98-109) mEq/L Carbon Dioxide 19 (19-29) mEq/L BUN 16 (8-26) mg/dL Creatinine 1.86 H D (0.72-1.25) mg/dL Est GFR ( Amer) 43 L (> 60) Est GFR (Non-Af Amer) 35 L (> 60) BUN/Creatinine Ratio 9 (6-26) Glucose 192 H (70-99) mg/dL Calculated Osmolality 298 (280-300) Calcium 11.3 H D (8.6-10.8) mg/dL Troponin I (0-0.03) ng/mL 11/01/16 Range/Units 19:20 WBC (4.3-11.1) K/mcL RBC (4.19-5.50) M/mcL Hgb (12.9-16.9) g/dL Hct (37.5-50.1) % MCV (83.0-100.0) fL MCH (28.0-33.3) pg MCHC (31.6-35.5) g/dL RDW (11.5-14.5) % Plt Count (140-400) K/mcL MPV (9.4-12.4) fL Immature Gran % (0-4) % Seg Neutrophils % % Lymphocytes % % Monocytes % % Eosinophils % % Basophils % % Neutrophils # (1.6-8.9) K/mcL Lymphocytes # (0.6-4.6) K/mcL Monocytes # (0.0-1.3) K/mcL Eosinophils # (0.0-0.6) K/mcL Basophils # (0.0-0.2) K/mcL Immature Plt Fraction (1.1-6.1) % PT (9.4-12.1) Seconds INR APTT (26.0-36.0) Seconds Sodium (136-145) mEq/L Potassium (3.5-4.5) mEq/L Chloride (98-109) mEq/L Carbon Dioxide (19-29) mEq/L BUN (8-26) mg/dL Creatinine (0.72-1.25) mg/dL Est GFR ( Amer) (> 60) Est GFR (Non-Af Amer) (> 60) BUN/Creatinine Ratio (6-26) Glucose (70-99) mg/dL Calculated Osmolality (280-300) Calcium (8.6-10.8) mg/dL Troponin I 0.05 H* (0-0.03) ng/mL - EKG Data EKG attestation: Yes I reviewed and interpreted this EKG. EKG results narrative: ventricularly paced with rate of 72. no change from old ekg from this morning or last night. 1910 EKG #2: ventricularly paced rate 102. NO change. 2134 EKG #3: ventricularly paced with rate of 97. St depression in V2-3. 2143 Heart Score - Score History: Moderately Suspicious EKG: Non Specific repolarisation Disturbance Age: Greater than 65 Risk Factors: Equal/Greater than 3 risk factor or history of atherosclerotic disease Troponin: 1-3x normal limit HEART Score Total: 7
[2016-11-01 20:29] LABS: Basophils # 0.1 K/mcL (0.0-0.2); Basophils % 0.5 %; Eosinophils # 0.1 K/mcL (0.0-0.6); Eosinophils % 0.6 %; Hematocrit 50.1 % (37.5-50.1); Immature Granulocytes % 0.4 % (0-4); Immature Platelets 5.8 % (1.1-6.1); Lymphocytes # 1.6 K/mcL (0.6-4.6); Lymphocytes % 10.2 %; Mean Corpuscular HGB Conc 33.9 g/dL (31.6-35.5); Mean Corpuscular Hemoglobin 28.5 pg (28.0-33.3); Mean Corpuscular Volume 83.9 fL (83.0-100.0); Mean Platelet Volume 11.4 fL (9.4-12.4); Monocytes # 0.9 K/mcL (0.0-1.3); Monocytes % 5.9 %; Platelet Count 189 K/mcL (140-400); Red Blood Count 5.97 M/mcL (4.19-5.50); Red Cell Distribution Width 13.6 % (11.5-14.5); Segmented Neutrophils % 82.4 %
[2016-11-01 20:36] LABS: INR 1.1; Prothrombin Time 11.6 Seconds (9.4-12.1)
[2016-11-01 20:39] LABS: Activated Partial Thrombo Time 27.7 Seconds (26.0-36.0)
[2016-11-01 20:41] LABS: Potassium 3.8 mEq/L (3.5-4.5)
[2016-11-01 20:42] LABS: Calcium 11.3 mg/dL (8.6-10.8)
[2016-11-01] MEDS ORDERED: Aspirin 81 MG TAB.CHEW PO ONE (20:58)
[2016-11-01] MEDS: Nitroglycerin 0.4 MG TAB.SUBL SL PRN (21:18)
[2016-11-01] MEDS ORDERED: *HR* Heparin 5,000 UNIT/ML VIAL IVP PRN ×2 (21:25)
[2016-11-01] MEDS ORDERED: *HR* Heparin 5,000 UNIT/ML VIAL IVP ONE (21:25)
[2016-11-01] MEDS: Heparin 25,000 UNIT/500 ML D5W 25,000 UNIT/500 ML MLS IVC SCH (21:43)
[2016-11-01] MEDS ORDERED: Naloxone 0.4 MG/ML INJ IVP PRN (22:57)
[2016-11-01] MEDS ORDERED: *HR* Dextrose 50 % in Water (Syg) 50 ML SYRINGE IVP PRN (22:59)
[2016-11-01] MEDS ORDERED: Dextrose Gel 15 GM PO PRN ×2 (22:59)
[2016-11-01] MEDS ORDERED: D5% in Water 1,000 ML IVC PRN (22:59)
--- NOTE | 2016-11-01 23:37 | Internal Med History&Physical ---
<Roverto Guillaume - Last Filed: 11/02/16 00:53> Date of Encounter: 11/02/16 Time of Encounter: 23:29 Assessment and Plan (1) NSTEMI (non-ST elevated myocardial infarction) Current visit: Yes Status: Acute 75 y/o male EKG: Ventricularly paced rhythm with ST depression in V3. Troponin 0.05 atypical chest pain Left heart catheter 09/2016 showed three-vessel severe coronary artery disease and received drug-eluting stents to his RCA and PTCA to distal RCA. Status post CABG x 2 in 2002. on DAPT, and xaralto for afib XENA score: 5 Cardiology notified and advise to start patient on heparin drip Hypertensive: BP 170s systolic Plan: Heparin drip continue aspirin, plavix, statin, Bblocker, imdur nitropaste: cotinues to have CP. cardiac tele, NPO midnight (2) CAD (coronary artery disease) Current visit: Yes Status: Chronic Previous hx stated above. Plan: continue home regimen of aspirin, plavix, statin, bb, imdur Qualifiers: Coronary Disease-Associated Artery/Lesion type: bypass graft [place] vs. 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 continue to monitor, if BP remains elevated will increase dosage of home medications. Qualifiers: Hypertension type: essential hypertension Qualified Code(s): I10 - Essential (primary) hypertension (5) DVT prophylaxis Current visit: Yes Status: Acute on heparin Gtt for NSTEMI (6) DARLYN (acute kidney injury) Current visit: Yes Status: Resolved 2nd to dehydration patient hemoconcentrated with hypercalcemia Scr baseline 1 Scr on presentation 1.86. Plan: IVF BMP in AM Internal Medicine - H&P: HPI Chief complaint: DARLYN Admitted From: Home Plans for Post Hospital Care: Home History of present illness: Mr. Pizarro is a 75 year old male presents with chief complaint of constant chest pain started yesterday at 1 in the afternoon while he was sitting on couch , left-sided, radiation to left shoulder down left arm with numbness and tingling in the left arm, dull aching pain, associated with nausea, vomiting, diaphoresis, shortness breath. Denies any relieving or exacerbation factors. Patient reports blurry vision and states he felt like he almost passed out. Reports CP is still there. Denies headache, productive sputum, cough, abdominal pain, palpitations. Patient has history of LVEF of 40%, status post ventricular pacemaker. Left heart catheter 09/2016 showed three-vessel severe coronary artery disease and received drug-eluting stents to his RCA and PTCA to distal RCA. Status post CABG x 2 in 2002. Past Med Surg Social Fam HX - Past Medical History Medical history: asthma, atrial fibrillation, coronary artery disease, CVA, diabetes, hypertension, myocardial infarction, thyroid disease Psychiatric history: no psych history - Past Surgical History Surgical History: cholecystectomy, coronary bypass (CABG), pacemaker/AICD - Social History Smoking Status: Former smoker Smokeless Tobacco Status: No Alcohol use: none Drug use: none - Family History Grandfather Living Status: Hx Family Cardiac Disorders: Yes Mother Living Status: Father Adopted: No Living Status: Hx Family Cardiac Disorders: No Hx Family Respiratory Disorders: No Hx Family Cancer: Yes Hx Family GI Disorders: No Hx Family Endocrine Disorder: No Hx Family Neuromuscular Disorders: No Hx Family Neurologic Disorders: No Hx Family HEENT Disorders: No Hx Family Autoimmune Disorders: No Internal Medicine - H&P: Meds Aspirin Enteric Coated [Aspirin EC] 81 mg PO DAILY #30 tablet. 02/21/16 [Rx] Atorvastatin [Lipitor] 40 mg PO HS #30 tablet 02/21/16 [Rx] Furosemide [Lasix] 40 mg PO DAILY #30 tablet 02/21/16 [Rx] Nitroglycerin [Nitrostat] 0.4 mg SL Q5M PRN 10/01/16 [History] Carvedilol [Coreg] 3.125 mg PO BIDWM #30 tab 10/05/16 [Rx] Clopidogrel [Plavix] 75 mg PO DAILY #30 tab 10/05/16 [Rx] Isosorbide MONOnitrate (24 HR) [Imdur] 90 mg PO DAILY #90 10/05/16 [Rx] Rivaroxaban [Xarelto] 15 mg PO 1700 #30 tab 10/05/16 [Rx] amLODIPine [Norvasc] 10 mg PO DAILY #30 tab 10/05/16 [Rx] Lisinopril [Zestril] 2.5 mg PO DAILY #15 tab 10/13/16 [Rx] Naproxen [Naprosyn] 250 mg PO BID #14 tab 10/17/16 [Rx] Omeprazole [PriLOSEC] 20 mg PO BIDAC #60 10/17/16 [Rx] Allergies Oxycodone [From Percocet] Allergy (Verified 10/19/16 17:21) Hives tramadol Allergy (Verified 10/19/16 17:21) Hives All Systems PM: A 10-system review of systems was performed and is negative for pertinent findings except as documented above in the HPI. Review of systems: Constitutional: Denies fever, chills HEENT: Denies headache, neck pain, sore throat, rhinorrhea reports blurry vision Heart: Reports chest pain, denies palpitations Lungs: Reports shortness of breath, denies cough, productive sputum Abdomen: Denies abdominal pain , diarrhea. Reports nausea and vomiting Back: Denies back pain Kidney: Denies dysuria, hematuria Skin: Denies rash, ( Extremities: Denies swelling, pain Neuro: Denies numbness, and tingling - Constitutional Vitals: Temp Pulse Resp BP Pulse Ox 97.9 F 90 17 174/100 97 11/01/16 22:47 11/01/16 22:47 11/01/16 22:47 11/01/16 22:47 11/01/16 22:47 - Other Additional findings: General: Alert and oriented to place time and situation. Without distress HEENT: Head atraumatic, normocephalic, EOMI, PERRLA, absent Lymphadenopathy, Moist Mucous Membranes, Heart: Regular rate and rhythm with no murmur. Paced rhythm Lungs: Clear to auscultation bilaterally Abdomen: Soft nontender, nondistended positive bowel sounds Extremities: Absent pedal edema, Skin: Warm and dry Neuro: Cranial nerves II through XII intact, sensation equal bilaterally, strength upper and lower extremity 5/5, alert oriented 3 Vascular: Pedal and radialpulses 2 out of 4 Internal Med - H&P Results - Labs CBC & Chem 7: 11/01/16 17:20 11/01/16 17:20 <Jamie De La Cruz - Last Filed: 11/02/16 04:25> Date of Encounter: 11/02/16 Internal Medicine - H&P: HPI History of present illness: Mr. Pizarro is a 75 year old male All Systems PM: A 10-system review of systems was performed and is negative for pertinent findings except as documented above in the HPI. - Constitutional Vitals: Temp Pulse Resp BP Pulse Ox 97.9 F 63 14 141/89 99 11/01/16 22:47 11/02/16 04:03 11/02/16 04:03 11/02/16 04:03 11/02/16 04:03 Internal Med - H&P Results - Labs CBC & Chem 7: 11/01/16 17:20 11/01/16 17:20 - Attending Attestation I saw and examined pt. I have discussed with resident regarding diagnostic and management plan. I agree with the documentation. Pt came with chest pain, with mildly elevated troponin. ER called cardio, recommended heparin drip, which was started in ER. Will continue cardio monitoring, follow up 3 sets of troponin. Pt has elevated Cr, higher than his baseline. Will give pt low rate hydration considering his CHF, f/u renal function.
[2016-11-01] MEDS ORDERED: Nitroglycerin 1 INCH/GM PACKET TP ONE (23:48)
[2016-11-02] MEDS: 0.9 % Sodium Chloride 1,000 ML IVC SCH ×2 (00:06→19:00)
[2016-11-02] MEDS: Insulin LISPRO 300 UNITS/3 ML VIAL SQ SCH ×6 (00:07→21:24)
[2016-11-02] MEDS: Ondansetron 4 MG/2 ML VIAL IVP PRN (00:32)
[2016-11-02] MEDS: Nitroglycerin 0.4 MG TAB.SUBL SL PRN ×5 (03:11→21:46)
[2016-11-02 04:52] LABS: Basophils % 0.3 %; Eosinophils # 0.1 K/mcL (0.0-0.6); Eosinophils % 0.4 %; Hematocrit 43.2 % (37.5-50.1); Immature Granulocytes % 0.4 % (0-4); Lymphocytes # 2.1 K/mcL (0.6-4.6); Lymphocytes % 15.4 %; Mean Corpuscular HGB Conc 33.6 g/dL (31.6-35.5); Mean Corpuscular Hemoglobin 28.7 pg (28.0-33.3); Mean Corpuscular Volume 85.4 fL (83.0-100.0); Mean Platelet Volume 11.1 fL (9.4-12.4); Monocytes # 1.1 K/mcL (0.0-1.3); Monocytes % 8.1 %; Neutrophils # 10.4 K/mcL (1.6-8.9); Platelet Count 162 K/mcL (140-400); Red Blood Count 5.06 M/mcL (4.19-5.50); Red Cell Distribution Width 13.8 % (11.5-14.5); Segmented Neutrophils % 75.4 %
[2016-11-02 04:56] LABS: Hemoglobin 14.5 g/dL (12.9-16.9)
[2016-11-02 05:01] LABS: BUN/Creatinine Ratio 15 (6-26); Blood Urea Nitrogen 21 mg/dL (8-26); Calcium 9.8 mg/dL (8.6-10.8); Carbon Dioxide 21 mEq/L (19-29); Chloride 108 mEq/L (98-109); Glucose 166 mg/dL (70-99); Osmolality,Calculated 297 (280-300); Sodium 140 mEq/L (136-145); eGFR For African Americans > 60 (> 60); eGFR For Non-African Americans 50 (> 60)
[2016-11-02] MEDS: Famotidine 20 MG/2 ML VIAL IVP SCH ×2 (05:55→18:26)
[2016-11-02] MEDS: Isosorbide MONOnitrate (24 HR) 30 MG TAB.ER.24H PO SCH (08:16)
[2016-11-02] MEDS: Aspirin Enteric Coated 81 MG Tablet PO SCH (08:17)
[2016-11-02] MEDS ORDERED: Nitroglycerin 1 INCH/GM PACKET TP ONE (08:19)
--- NOTE | 2016-11-02 08:40 | Internal Med Progress Note ---
Date of Encounter: 11/02/16 Time of Encounter: 08:35 - Assessment and plan (1) NSTEMI (non-ST elevated myocardial infarction) Current Visit: Yes Status: Acute (2) Congestive heart failure Current Visit: No Status: Chronic Qualifiers: Congestive heart failure type: combined Congestive heart failure chronicity : chronic Qualified Code(s): I50.42 - Chronic combined systolic (congestive) and diastolic (congestive) heart failure (3) DARLYN (acute kidney injury) Current Visit: Yes Status: Resolved (4) Paroxysmal a-fib Current Visit: No Status: Chronic (5) DM2 (diabetes mellitus, type 2) Current Visit: No Status: Chronic Qualifiers: Diabetes mellitus complication status: with circulatory complication Diabetes mellitus complication detail: with other circulatory complications Diabetes mellitus 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 insulin use: without detention use Qualified Code( s): E11.59 - Type 2 diabetes mellitus with other circulatory complications (6) Hypertension Current Visit: No Status: Chronic Qualifiers: Hypertension type: essential hypertension Qualified Code(s): I10 - Essential (primary) hypertension (7) DVT prophylaxis Current Visit: No Status: Acute - Subjective Interval history: Yue Pizarro is a 75 year male presented with chest pain and acute LA. Patient has history of open heart surgery 2002 and angioplasty and stents 2 in past September. Patient is on heparin however continues to complain of chest pain therefore I will add IV nitroglycerin and get an EKG. Cardiology is already consulted. Patient known ejection fraction is only 40%. He also has a pacemaker. Problem list #1 acute LA patient on IV nitroglycerin and IV heparin as well as beta fuentes and aspirin and Plavix. Cardiology consulted. Echocardiogram ordered but patient has history of CABG in 2003 and PTCA in 2017 #2 acute systolic congestive heart failure with EF of 40% on IV Lasix #3 chronic atrial fibrillation status post pacemaker and beta fuentes patient is on Xarelto at home at age and and daily monitoring #4 diabetes Accu-Chek 4 times a day with sliding scale coverage during monitoring #5 hypertension home medication and daily monitoring - Constitutional Vitals: Temp Pulse Resp BP Pulse Ox 97.6 F 66 14 127/76 98 11/02/16 08:20 11/02/16 08:20 11/02/16 08:20 11/02/16 08:20 11/02/16 08:20 - Head Head exam: Present: atraumatic, normocephalic - Eye Eye exam: Present: PERRL, conjuntiva pink, sclera anicteric Pupils: Present: PERRL - Neck Neck exam general surgery: Present: supple, trachea midline. Absent: lymphadenopathy - Respiratory Respiratory exam: Present: CTAB. Absent: accessory muscle use, rales, rhonchi, wheezes - Cardiovascular Cardiovascular exam: Present: RRR, +S1, +S2. Absent: diastolic murmur, gallop, rubs, systolic murmur - GI/Abdominal GI/Abdominal exam: Present: normal bowel sounds, soft, no peritoneal signs. Absent: distended, tenderness - Extremities Exam Extremities exam: Present: warm, radial pulses palpable and symmetrical. Absent : calf tenderness, cyanotic, pedal edema - Neurological Exam Neurological exam: Present: CN II-XII intact, oriented X3, no focal deficits. Absent: pronater drift, facial droop, speech deficit - Skin Skin exam: Present: dry, intact Internal Medicine: Result - Labs CBC & Chem 7: 11/02/16 04:33 11/02/16 04:33 Labs: Short CBC 11/02/16 Range/Units 04:33 WBC 13.8 H (4.3-11.1) K/mcL Hgb 14.5 D (12.9-16.9) g/dL Hct 43.2 (37.5-50.1) % Plt Count 162 (140-400) K/mcL Neutrophils # 10.4 H (1.6-8.9) K/mcL BMP 11/02/16 04:33 Sodium 140 Potassium 4.0 Chloride 108 Carbon Dioxide 21 BUN 21 Creatinine 1.39 H Glucose 166 H Calcium 9.8 Cardiac Enzymes 11/02/16 Range/Units 04:33 Troponin I > 50.00 H* (0-0.03) ng/mL - ABG Interpretation ABG results: PT/INR, D-dimer PT 11.6 Seconds (9.4-12.1) 11/01/16 17:20 Consult Discharge Plan - Plan Referrals: NONE,PCP [Primary Care Provider] -
[2016-11-02] MEDS ORDERED: Nitroglycerin 25 MG/250 ML INFUS..BTL IVC SCH (09:00)
[2016-11-02] MEDS ORDERED: *HR* FentaNYL (PF) 100 MCG/2 ML VIAL ONE ×2 (09:09→12:08)
[2016-11-02] MEDS ORDERED: *HR* Midazolam HCl 2 MG/2 ML VIAL ONE ×2 (09:09→12:07)
--- NOTE | 2016-11-02 09:15 | Pre-Sedation Evaluation ---
Pre-sedation evaluation - Pre-sedation checklist Date of procedure: 11/02/16 Procedure: Cardiac Cath Recent Vitals: Last Vital Signs Temp 97.6 F 11/02/16 08:20 Pulse 66 11/02/16 08:20 Resp 14 11/02/16 08:20 BP 127/76 11/02/16 08:20 Pulse Ox 98 11/02/16 08:36 H&P (including ROS) documented in medical record: Yes Previous reaction to sedatives/anesthetics: No Dietary Status: NPO after Midnight Airway Assessment: Patient can open mouth completely, TMJ function normal, Micrognathia (under-bite, receding chin) absent, Neck with adequate range of motion Dentition: No loose teeth or bridges, poor dentition Possible difficult airway: No ASA Classification *see protocol: CLASS II-Mild systemic disease Plan of Care: Pt appropriate candidate for procedure/moderate/conscious sedation , Risks/benefits of procedure/sedation discussed w/ patient/family
[2016-11-02] MEDS ORDERED: methylPREDNISolone 125 MG/2 ML VIAL ONE (09:25)
[2016-11-02] MEDS ORDERED: Heparin 1,000 UNITS/500 mL NS 500 ML ONE ×4 (09:32→11:53)
[2016-11-02] MEDS ORDERED: *HR* Heparin 10,000 UNIT/10 ML VIAL ONE ×2 (09:32→12:29)
[2016-11-02] MEDS ORDERED: 0.9 % Sodium Chloride 1,000 ML ONE (09:32)
--- NOTE | 2016-11-02 09:59 | Cardiology Consult Note ---
<Sharri Randle - Last Filed: 11/02/16 10:45> Date of Encounter: 11/02/16 Time of Encounter: 08:30 Assessment and Plan (1) NSTEMI (non-ST elevated myocardial infarction) Current Visit: Yes Status: Acute Per cardiology: -NSTEMI. -Troponin 0.05, >50, and >50. -Active chest pain. -ON heparin drip. -Nitro drip ordered by primary service, had not been started yet at time of assessment. -On xarelto for PAF, last dose taken 10/31/16. -Urgent LHC. Discussed and reviewed with and Dr.Jennifer Garcia. -Risks versus benefits of LHC explained to patient. Patient states understanding and agreeable for LHC. Of note, patient states is not allergic to IVP dye or shellfish. -Further recommendations pending LHC. (2) DARLYN (acute kidney injury) Current Visit: Yes Status: Acute Per cardiology: -DARLYN with creatinine on admission 1.86. -Baseline 1-1.2. -Creatinine today 1.39. -Management per primary service. -Can consider nephrology consult. (3) Ischemic cardiomyopathy Current Visit: No Status: Chronic Per cardiology: -Known ischemic cardiomyopathy. -Echo 10/11/16 with LVEF 40%, mild concentric left ventricular hypertrophy, global elft ventricular systolic dysfunction, indeterminate diastolic function, atypical septal motion consistent with paced rhythm, no significant valvular dysfunction, all mena hypokinetic. -On beta fuentes and clara inhibitor. -Euvolemic on exam. -Will continue to monitor. (4) CAD (coronary artery disease) Current Visit: Yes Status: Chronic Per cardiology: -KNown CAD with CABG x2 2002. -LHC 10/04/16 with severe three vessel CAD, JATINDER to ostial RCA, PTCA distal RCA, Patent 2/2 bypass grafts (ARROYO to LAD, SVG to OM1). -On asa, statin, beta fuentes, imdur, plavix, clara inhibitor, and heparin drip. -Recent echo as above. -Active chest pain. -Troponins positive. -Urgent LHC. -Further recommendations pending LHC. Qualifiers: Coronary Disease-Associated Artery/Lesion type: unspecified vessel or lesion type [place] vs. transplanted heart: [place] heart Associated angina: with unstable angina Qualified Code(s): I25.110 - Atherosclerotic heart disease of [place] coronary artery with unstable angina pectoris (5) HTN (hypertension) Current Visit: Yes Status: Chronic Per cardiology: -KNown HTN. -ON norvasc, coreg, and lisinopril. -BPs 120-140s systolic. -Will continue to monitor. Qualifiers: Hypertension type: essential hypertension Qualified Code(s): I10 - Essential (primary) hypertension (6) Paroxysmal a-fib Current Visit: No Status: Chronic Per cardiology: -KNown PAF. -ON beta fuentes and xarelto at home. -Currently on heparin drip. -last xarelto dose 10/31/16. -HRs 70s. -Will resume xarelto pending [facility]. -Will continue to monitor. Discussion w patient/family: The assessment and plan as outlined above was discussed with the patient who expressed understanding and agreement. All questions were answered. Thank you for involving us in the care of your patient. Please call with any questions. Discussed and reviewed with . History of Present Illness Consult date: 11/01/16 Requesting physician: Brooke Duggan Consult reason: NSTEMI Chief complaint: chest pain History of present illness: Mr. Pizarro is a 75 year old male with a relevant past medical history of CAD with CABG x2 2002, s/p PCI RCA, HTN, PPM, PAF, CVA, hyperlipidemia, hard of hearing, and GERD. Patient presents for chest pain. Patient states pain started at 1pm yesterday afternoon at rest. Patient states pain feels like a burning sensation. Patient admits to current chest pain. Patient rates a 7/10. Patient denies aggravating or alleviating factors. Patient states this is similar to previous pain, however this pain is more "intense." Patient denies shortness of breath. Patient states he last took his xarelto on 10/31/16. Patient denies allergy to IVP dye or shellfish. Past Med Surg Social Fam HX - Past Medical History Attestation: Yes The following information was validated with the patient. Source: patient, old records reviewed Medical history: asthma, atrial fibrillation, coronary artery disease, CVA, diabetes, hypertension, myocardial infarction, thyroid disease Psychiatric history: no psych history - Past Surgical History Surgical History: cholecystectomy, coronary bypass (CABG), pacemaker/AICD - Social History Smoking Status: Former smoker Smokeless Tobacco Status: No Alcohol use: none Drug use: none - Family History Grandfather Living Status: Hx Family Cardiac Disorders: Yes Mother Living Status: Cause of : CVA Hx Family Neurologic Disorders: Yes (CVA) Father Adopted: No Living Status: Age at : 73 Cause of : Cancer Hx Family Cardiac Disorders: No Hx Family Respiratory Disorders: No Hx Family Cancer: Yes Hx Family GI Disorders: No Hx Family Endocrine Disorder: No Hx Family Neuromuscular Disorders: No Hx Family Neurologic Disorders: No Hx Family HEENT Disorders: No Hx Family Autoimmune Disorders: No Medications and Allergies Aspirin Enteric Coated [Aspirin EC] 81 mg PO DAILY #30 tablet.dr 02/21/16 [Rx] Atorvastatin [Lipitor] 40 mg PO HS #30 tablet 02/21/16 [Rx] Furosemide [Lasix] 40 mg PO DAILY #30 tablet 02/21/16 [Rx] Nitroglycerin [Nitrostat] 0.4 mg SL Q5M PRN 10/01/16 [History] Carvedilol [Coreg] 3.125 mg PO BIDWM #30 tab 10/05/16 [Rx] Clopidogrel [Plavix] 75 mg PO DAILY #30 tab 10/05/16 [Rx] Isosorbide MONOnitrate (24 HR) [Imdur] 90 mg PO DAILY #90 10/05/16 [Rx] Rivaroxaban [Xarelto] 15 mg PO 1700 #30 tab 10/05/16 [Rx] amLODIPine [Norvasc] 10 mg PO DAILY #30 tab 10/05/16 [Rx] Lisinopril [Zestril] 2.5 mg PO DAILY #15 tab 10/13/16 [Rx] Naproxen [Naprosyn] 250 mg PO BID #14 tab 10/17/16 [Rx] Omeprazole [PriLOSEC] 20 mg PO BIDAC #60 10/17/16 [Rx] Allergies Oxycodone [From Percocet] Allergy (Verified 10/19/16 17:21) Hives tramadol Allergy (Verified 10/19/16 17:21) Hives All Systems Review: A 10-system review of systems was performed and is negative for pertinent findings except as documented above in the HPI. - Cardiovascular Cardiovascular: as per HPI, chest pain at rest Physical Examination Vital Signs, Last 4 Hours Temp Pulse Resp BP Pulse Ox 11/02/16 08:36 98 11/02/16 08:20 97.6 F 66 14 127/76 98 11/02/16 06:57 71 16 129/76 97 11/02/16 06:43 65 16 141/98 97 General: Conversant, No Apparent Distress HEENT: Atraumatic, Normocephaly, Mucus Membranes Moist Neck: No JVD, Normal carotid pulses Cardiac: Reg Rate and Rhythm, Normal S1 and S2, No Murmur Lungs: Normal Breath Sounds, No Wheeze, Rales, Rhonchi Neuro: Alert and responsive, No focal deficits noted Abdomen: Soft, Non-Tender Skin: No rashes noted on visualized skin Musculoskeletal: No Chest Wall Tenderness Extremities: No Clubbing, No Cyanosis, No Edema, Normal Pulses Results 11/02/16 04:33 11/02/16 04:33 Lab Results Impressions Chest X-Ray 11/01/16 19:22 IMPRESSION: Stable chest with no acute cardiopulmonary findings. No pneumothorax. D/ / Cassy Maharaj MD / Cassy Maharaj MD Interpreting Provider: Cassy Maharaj MD Active Medications Amlodipine Besylate (Norvasc) 10 mg PO DAILY MACI PRN Reason: Protocol Stop: 05/04/17 09:01 Aspirin (Aspirin Ec) 81 mg PO DAILY MACI Stop: 05/04/17 09:01 Last Admin: 11/02/16 08:17 Dose: 81 mg Atorvastatin Calcium (Lipitor) 40 mg PO HS [facility] Stop: 05/04/17 21:01 Carvedilol (Coreg) 3.125 mg PO BIDWM MACI PRN Reason: Protocol Stop: 05/04/17 08:01 Last Admin: 11/02/16 08:16 Dose: 3.125 mg Clopidogrel Bisulfate (Plavix) 75 mg PO DAILY MACI Stop: 05/04/17 09:01 Last Admin: 11/02/16 08:16 Dose: 75 mg Dextrose/Water (Dextrose 50% (Syg)) 25 ml IVP AD PRN PRN Reason: Hypoglycemia Stop: 05/03/17 23:00 Famotidine (Pepcid) 20 mg IVP Q12HR MACI Stop: 05/04/17 06:01 Last Admin: 11/02/16 05:55 Dose: 20 mg Furosemide (Lasix) 40 mg PO DAILY MACI Stop: 05/04/17 09:01 Glucagon (Glucagen) 1 mg IM ONCE PRN PRN Reason: Hypoglycemia Stop: 05/03/17 23:00 Glucose (Gluctose) 15 gm PO ONCE PRN PRN Reason: Hypoglycemia Stop: 05/03/17 23:00 Glucose (Gluctose) 30 gm PO ONCE PRN PRN Reason: Hypoglycemia Stop: 05/03/17 23:00 Heparin Sodium (Porcine) (Heparin) 4,000 unit IVP Q6HR PRN PRN Reason: SEE COMMENTS Stop: 05/03/17 21:26 Heparin Sodium (Porcine) (Heparin) 2,000 unit IVP Q6H PRN PRN Reason: SEE COMMENTS Stop: 05/03/17 21:26 Heparin Sodium/Dextrose (Heparin 25,000 Unit/500 Ml D5w) 25,000 unit in 500 mls @ 20.038 mls/hr IVC .Q24H MACI; 11.45 UNITS/KG/HR PRN Reason: Protocol Stop: 05/03/17 21:31 Last Titration: 11/02/16 05:49 Dose: 9.45 units/kg/hr, 16.538 mls/hr Dextrose (Dextrose 5%) 1,000 mls @ 100 mls/hr IVC .Q10H PRN PRN Reason: HYPOGLYCEMIA Stop: 05/03/17 23:00 Sodium Chloride (0.9 % Sodium Chloride) 1,000 mls @ 75 mls/hr IVC .[id number] MACI Stop: 11/03/16 01:54 Last Admin: 11/02/16 00:06 Dose: 75 mls/hr Nitroglycerin (Nitroglycerin Premix 25 Mg/250 Ml) 25 mg in 250 mls @ 3 mls/hr IVC .Q24H MACI; 5 MCG/MIN PRN Reason: Protocol Stop: 05/04/17 09:01 Insulin Human Lispro (Humalog) 0 units SQ Q6HR MACI PRN Reason: Protocol Stop: 05/04/17 00:01 Last Admin: 11/02/16 05:55 Dose: Not Given Isosorbide Mononitrate (Imdur) 90 mg PO DAILY [facility] Stop: 05/04/17 09:01 Last Admin: 11/02/16 08:16 Dose: 90 mg Lisinopril (Zestril) 2.5 mg PO DAILY MACI PRN Reason: Protocol Stop: 05/04/17 09:01 Naloxone HCl (Narcan) 0.4 mg IVP Q2MIN PRN PRN Reason: Opioid Reversal Stop: 05/03/17 22:58 Nitroglycerin (Nitroglycerin) 0.4 mg SL Q5MIN PRN PRN Reason: Chest Pain Stop: 05/03/17 20:59 Last Admin: 11/02/16 08:12 Dose: 0.4 mg Ondansetron HCl (Zofran) 4 mg IVP Q8HR PRN PRN Reason: Nausea And Vomiting Stop: 05/03/17 22:58 Last Admin: 11/02/16 00:32 Dose: 4 mg Laboratory Tests 10/18/16 10/21/16 11/01/16 13:48 15:40 07:42 WBC Hgb Creatinine 1.61 H 1.15 1.06 Troponin I 11/01/16 11/01/16 11/01/16 17:20 17:20 19:20 WBC 15.8 H D Hgb Creatinine 1.86 H D Troponin I 0.05 H* 11/02/16 11/02/16 11/02/16 04:33 04:33 04:33 WBC 13.8 H Hgb 14.5 D Creatinine 1.39 H Troponin I > 50.00 H* 11/02/16 08:43 WBC Hgb Creatinine Troponin I > 50.00 H* - Imaging and Cardiology Chest Xray: report reviewed Echo: report reviewed Cardiac cath: report reviewed - EKG Interpretation EKG results cardiology: personally reviewed (ECG with paced rhythm, bundle branch block. ST Depressions noted in V1, V2, V3.), other (Telemetry reviewed with average HR 70, paced rhythm.) Consult Discharge Plan - Plan Additional Instructions: pcp requested Referrals: Lance Cronin MD [Partnered Physician] - <Harry Stone - Last Filed: 11/02/16 17:06> Date of Encounter: 11/02/16 Assessment and Plan Discussion w patient/family: The assessment and plan as outlined above was discussed with the patient and/or family members who expressed understanding and agreement. All questions were answered. Thank you for involving us in the care of your patient. Please call with any questions. History of Present Illness History of present illness: Mr. Pizarro is a 75 year old male All Systems Review: A 10-system review of systems was performed and is negative for pertinent findings except as documented above in the HPI. Physical Examination Vital Signs, Last 4 Hours Temp Pulse Resp BP Pulse Ox 11/02/16 16:10 73 122/75 96 11/02/16 16:08 97.6 F 64 18 122/75 94 11/02/16 14:15 70 125/82 94 11/02/16 13:54 60 97 11/02/16 13:48 98.8 F 66 18 139/86 97 Results 11/02/16 04:33 11/02/16 04:33 - Attending Attestation PT seen and examined independently, chart reviewed, old records reviewed, agree with above findings, Pt continues to experience 6/10 mid sternal chest pressure, has improved but not resolved, associated with shortness of breath, continued nausea, emesis x 1. Pt reports chest pain and nausea are the worst he has experienced, similar too but worse than chest pain before last PCI. IMP/PLan 1. NSTEMI with ongoing chest pain, markedly elevated troponin in last two hours, , discussed options, recommendation for emergent LHC with abnormal enzemes and ongoing chest pain, risks and benefits explained, pt agrees to proceed 2. PAF - in NSR at present, on Xaralto for primary stroke risk reduction. 3. Acute kidney injury on presentation, Creat 1.86, improving with gentle rehydration.
[2016-11-02] MEDS ORDERED: *HR* Heparin 5,000 UNIT/ML VIAL ONE (12:27)
[2016-11-02] MEDS ORDERED: *HR* Ticagrelor 90 MG TABLET ONE (12:41)
[2016-11-02] MEDS ORDERED: Nitroglycerin 1,000 MCG/10 ML VIAL IV ONE (12:59)
[2016-11-02] MEDS ORDERED: 0.9 % Sodium Chloride 1,000 ML IVC SCH (13:15)
--- NOTE | 2016-11-02 13:33 | Invasive Diagnostic Lab Proc ---
Name: Yue Pizarro Date of Study: 11/02/2016 Date: 1940 Ht: 70.1in Medical Record#: [id number] Age: 75 Wt: 194.01lb Gender: Male BSA: 2.06 Order #: [id number] BMI: 27.77 Physicians Procedure Physician: Anastacia Garcia MD, [facility] Referring MD: Referring MD: Staff Name Position Time In Franky Tapia RT (R) Scrub 09:22 AM Josselin Bullard RN Inspector Watch Assembly 09:22 AM Uday Hooper RN Inspector Watch Assembly 09:22 AM Betsy London RT Monitor 09:23 AM Indications Indication Non-Stemi Procedures Performed Procedure CORONARY ART/GRFT ANGIO S&I PRQ CARD JATINDER STENT W/ANGIO 1 VSL Pre-Procedure Checklist Informed consent is complete signed and on chart. H&P is on chart. ID band is on and ID verified with patient. Patient NPO for procedure The procedure was described for the patient and questions were answered. Blood Pressure: 127/76 ECG is on chart. Plan of Care Patient will tolerate the procedure without complications. Adequate level of comfort will be maintained. Hemodynamics will remain stable Patient will recover from procedure without complications. Respiratory function will be maintained. Cardiac rhythm will remain stable. Patient temperature will be maintained. Patient and/or family have verbalized understanding of the procedure. Patient Education Chief Complaint/Reason for Test: Cardiac Cath Developmental Category: Geriatric (65+ years) Developmentally Appropriate for Age: Yes Learning Barriers: None Education Needs: Procedure Education Method: Verbal Information Taught: Cardiac Cath Educational Evaluation: Able to repeat information Intravenous Access Time IV Size Location DC'd Fluid/Drip Rate Units RN 20g 1 /" Patent On Arrival Rt Antecubital 0.9NaCl 25 Josselin Bullard RN Allergies Oxycodone tramadol Warfarin IVP DYE (IODINE) Vital Signs Time BP (mmHg) HR (bpm) O2 Sat. RR (bpm) LOC 127 / 76 66 98 % 14 5 = Fully awake and oriented or at pre-proc level 09:27 AM / % 5 = Fully awake and oriented or at pre-proc level 09:27 AM / % 4 = Oriented but drowsy 09:42 AM / % 4 = Oriented but drowsy 09:57 AM / % 4 = Oriented but drowsy 10:13 AM / % 4 = Oriented but drowsy 10:28 AM / % 4 = Oriented but drowsy 10:43 AM / % 4 = Oriented but drowsy 10:58 AM / % 4 = Oriented but drowsy 11:13 AM / % 4 = Oriented but drowsy 11:28 AM / % 4 = Oriented but drowsy 11:44 AM / % 4 = Oriented but drowsy 11:59 AM / % 4 = Oriented but drowsy 12:14 PM / % 4 = Oriented but drowsy 12:29 PM / % 4 = Oriented but drowsy 12:45 PM / % 4 = Oriented but drowsy 01:00 PM / % 5 = Fully awake and oriented or at pre-proc level 09:30 AM 144 / 95 74 97 % 10 09:35 AM 137 / 93 75 89 % 8 09:40 AM 146 / 93 66 98 % 16 09:45 AM 139 / 88 66 99 % 14 09:50 AM 135 / 88 64 99 % 13 09:55 AM 138 / 87 65 99 % 13 10:00 AM 140 / 88 60 99 % 15 10:05 AM 142 / 93 63 99 % 12 10:10 AM 138 / 91 63 99 % 15 10:15 AM 137 / 90 63 99 % 14 10:20 AM 137 / 84 68 94 % 15 10:25 AM 140 / 89 63 99 % 16 10:30 AM 144 / 92 63 100 % 16 10:35 AM 142 / 91 64 99 % 14 10:40 AM 143 / 91 69 98 % 17 10:45 AM 141 / 90 64 99 % 13 10:50 AM 140 / 94 63 99 % 12 10:55 AM 143 / 86 63 99 % 13 11:00 AM 145 / 94 64 99 % 14 11:05 AM 143 / 93 64 92 % 13 11:10 AM 147 / 92 64 99 % 14 11:15 AM 132 / 80 63 98 % 11 11:20 AM 138 / 87 64 98 % 13 11:25 AM 138 / 93 64 97 % 12 11:30 AM 136 / 86 63 97 % 15 11:35 AM 130 / 75 63 96 % 16 11:40 AM 134 / 78 64 95 % 13 11:45 AM 135 / 84 60 95 % 15 11:50 AM 130 / 91 59 96 % 17 11:55 AM 142 / 93 64 98 % 14 12:00 PM 144 / 98 68 99 % 17 12:05 PM 140 / 94 64 98 % 11 12:10 PM 139 / 95 69 100 % 17 12:15 PM 131 / 88 62 99 % 13 12:20 PM 142 / 88 62 99 % 13 12:25 PM 140 / 92 64 99 % 14 12:30 PM 142 / 92 62 100 % 13 12:35 PM 142 / 92 64 99 % 13 12:40 PM 142 / 94 66 100 % 15 12:45 PM 132 / 78 65 99 % 20 12:50 PM 145 / 94 64 99 % 15 12:55 PM 148 / 94 62 100 % 8 01:00 PM 142 / 89 64 98 % 17 01:05 PM 148 / 96 63 97 % 11 Procedural Medications Time Medication Dose Units Method Given By 09:27 AM Oxygen 2 L/min nasal cannula Uday Hooper RN 09:29 AM Versed 1 mg Intravenous Uday Hooper RN 09:29 AM Fentanyl 25 mcg Intravenous Uday Hooper RN 09:30 AM Solu-medrol 125 mg Intravenous Uday Hooper RN 09:30 AM Benadryl 25 mg Intravenous Uday Hooper RN 09:35 AM Oxygen 4 L/min nasal cannula Uday Hooper RN 09:37 AM Lidocaine 2% 16 ml Subcutaneous Anastacia Garcia MD, FACC 09:46 AM Heparin 4000 units Intravenous Uday Hooper RN 10:37 AM Heparin 2000 units Intravenous Uday Hooper RN 11:06 AM Versed 1 mg Intravenous Uday Hooper RN 11:06 AM Fentanyl 25 mcg Intravenous Uday Hooper RN 11:26 AM Nitroglycerin 200 mcg Intracoronary Anastacia Garcia MD, FACC 11:30 AM Heparin 2000 units Intravenous Uday Hooper RN 11:34 AM Nitroglycerin 100 mcg Intracoronary Anastacia Garcia MD, FACC 12:10 PM Versed 1 mg Intravenous Uday Hooper RN 12:11 PM Fentanyl 25 mcg Intravenous Uday Hooper RN 12:27 PM Heparin 3000 units Intravenous Anastacia Garcia MD, FACC 12:56 PM Nitroglycerin 200 mcg Intracoronary Anastacia Garcia MD, FACC 12:58 PM Nitroglycerin 200 mcg Intracoronary Anastacia Garcia MD, FACC 01:03 PM Brilinta 180 mg Josselin Hernandez RN ASA Classification: CLASS II- Mild systemic disease (i.e. well-controlled diabetes, hypertension, asthma, cigarette smoking) Erasmo Score Preprocedure Postprocedure Activity 2- Moves 4 extremities sustained head lift Activity Circulation 2- SBP +/= 20 points of pre-anesthetic level Circulation Consciousness 2- Awake and alert oriented x 3 Consciousness O2 Saturation 2- Able to maintain O2 satruation of 92% on room air O2 Saturation Respiratory 2- Able to deep breathe and cough well Respiratory Total Score 10 Total Score Contrast Agent: Isovue Diagnostic Contrast: 331 ml Total Contrast: 331 ml Fluoro Dose: 5749 mGy Activated Clotting Time Time Seconds to Clot 09:43 AM 158 10:01 AM 293 10:12 AM 255 10:33 AM 295 10:37 AM 234 10:55 AM 295 11:29 AM 244 11:48 AM 384 12:27 PM 208 12:51 PM 01:05 PM 213 Procedure Log Time Note Enter By 09:22 AM Pt arrived to veterinarian laboratory animal care 2 at 09:22 09:22 AM Franky Tapia RT (R) Position: Scrub Time in: 09:22 09:22 AM Josselin Bullard RN Position: Inspector Watch Assembly Time in: 09:22 09:23 AM Uday Hooper RN Position: Inspector Watch Assembly Time in: :22 09:23 AM Betsy London RT Position: Monitor Time in: :23 09:23 AM Patient charges- Angio tray pack, Navilyst 3mm J, Pulse Oximetry and ACIST tubing and transducer kk 09:26 AM Case Delayed No kk 09:26 AM Hair removed from procedure site in procedure lab using clippers. Bilateral groin prepped with Chloraprep by Franky Tapia (R), safety strap applied then patient was draped. Skin intact. kk 09:26 AM Physician arrived 09:26 kkallner 09:26 AM ASA Class CLASS II- Mild systemic disease (i.e. well-controlled diabetes, hypertension, asthma, cigarette smoking) kkall 09:26 AM Meet and greet completed 09:26 AM Sign in performed according to hospital policy. kk 09:26 AM Procedure start 09: 09:27 AM Time: : Oxygen on at 2 L/min per nasal cannula by Uday Hooper RN kkallner 09:27 AM Time: 09:27 Patient comfortable and pain free: Yes AM Time: LOC: 5 = Fully awake and oriented or at pre-proc level : AM Clinical Presentation: Non-STEMI : AM CathStat : AM Vitals capture started with the following parameters, Patient=Adult, Interval=5 min, Initial Mxeflqye=832 mmHg, Deflation Rate=5 mmHg, Cuff placed on Left Arm 09: AM Time: : Versed 1 mg Intravenous Given by Uday Hooper RN keven : AM Time: : Fentanyl 25 mcg Intravenous Given by Uday Hooper RN : AM Time: :30 Solu-medrol 125 mg Intravenous Given by Uday Hooper RN :30 AM HR=74 bpm, BMUR=508/95 mmhg, SpO2=97 %, Resp=10 B/min 09:30 AM Time: 09:30 Benadryl 25 mg Intravenous Given by Uday Hooper RN alcon 09:35 AM HR=75 bpm, UFDR=727/93 mmhg, SpO2=89 %, Resp=8 B/min 09:35 AM Time: 09:35 Oxygen on at 4 L/min per nasal cannula by Uday Hooper RN alcon 09:36 AM Time out performed according to hospital policy 09:38 AM Time: 09:37 16 ml Lidocaine 2% to right groin Subcutaneous Given by Anastacia Garcia MD, [facility] 09:39 AM Access obtained by percutaneous puncture. 6Fr 10cm Terumo Simla sheath placed in right Femoral artery. [id number] 09:40 AM HR=66 bpm, SYZP=595/93 mmhg, SpO2=98 %, Resp=16 B/min 09:40 AM 5Fr FL 4 catheter inserted over the wire [facility] 09:40 AM Pressure channel 1 zero failed. 09:40 AM Pressure channel 1 zeroed. 09:40 AM wire removed 09:40 AM LCA angiography performed in multiple views. 09:41 AM Recorded Pressure: Ao, HR=66, Condition=Condition 1 (Aorta) Ao 122/82/101 09:41 AM Catheter removed 09:41 AM 5Fr 3DRC catheter inserted over the wire [id number] kkner 09:42 AM Time: 09:27 Patient comfortable and pain free: Yes kk 09:42 AM Time: 09:27LOC: 4 = Oriented but drowsy kkner 09:42 AM wire removed kkner 09:42 AM RCA angiography performed in multiple views. kkner 09:43 AM At 09:43 the ACT was 158 seconds. [email or web address] 09:44 AM Recorded Pressure: Ao, HR=72, Condition=Condition 1 (Aorta) Ao 126/86/106 09:45 AM SVG to the 1st OM angio performed in multiple views. kkallner 09:45 AM Catheter removed kkallner 09:45 AM HR=66 bpm, UVVW=816/88 mmhg, SpO2=99.0 %, Resp=14 B/min 09:45 AM 5Fr IM catheter inserted over the wire [id number] kkallner 09:45 AM wire removed kkner 09:46 AM Left CRISTO to the LAD angio performed in multiple views. kkner 09:46 AM Time: 09:46 Heparin 4000 units Intravenous Given by Uday Hooper RN kk 09:46 AM Catheter removed kkner 09:48 AM 6Fr 3DRC D Lo Bright-Tip guide catheter was used to cannulate the PCI vessel successfully. reused? No kkner 09:49 AM .014 Prowater 300cm guide wire across target lesion- successful. reused? No kkner 09:50 AM HR=64 bpm, EGHO=101/88 mmhg, SpO2=99.0 %, Resp=13 B/min 09:51 AM prowater removed kkner 09:52 AM Guide catheter removed intact. kkallner 09:52 AM 6Fr IM Runway guide catheter was used to cannulate the PCI vessel successfully. reused? No kkner 09:53 AM wire removed kkallner 09:55 AM HR=65 bpm, PHMB=149/87 mmhg, SpO2=99.0 %, Resp=13 B/min 09:56 AM Prowater reinserted kkallner 09:57 AM ACT drawn kk 09:57 AM Time: :42LOC: 4 = Oriented but drowsy kkallner 09:57 AM Time: 09:42 Patient comfortable and pain free: Yes kkallner 10:00 AM HR=60 bpm, XRGS=281/88 mmhg, SpO2=99.0 %, Resp=15 B/min 10:00 AM 1.5 mm x 8 mm Mini Trek OTW balloon across target lesion- successful. reused? No kkallner 10:00 AM Recorded Pressure: Ao, HR=65, Condition=Condition 1 (Aorta) Ao 137/81/105 10:01 AM At 10:01 the ACT was 293 seconds. kkallner 10:05 AM HR=63 bpm, HQAZ=109/93 mmhg, SpO2=99.0 %, Resp=12 B/min 10:05 AM wire and balloon removed kkallner 10:06 AM Guide catheter removed intact. kkallner 10:07 AM 6Fr AR1 Runway guide catheter was used to cannulate the PCI vessel successfully. reused? No kkallner 10:07 AM wire removed kkallner 10:08 AM ACT drawn kkallner 10:10 AM Guide catheter removed intact. kkallner 10:10 AM HR=63 bpm, PJBF=750/91 mmhg, SpO2=99.0 %, Resp=15 B/min 10:10 AM 6Fr AL1 Runway guide catheter was used to cannulate the PCI vessel successfully. reused? No kkallner 10:11 AM wire removed kkallner 10:12 AM At 10:12 the ACT was 255 seconds. [email or web address] 10:12 AM Time: 09:57 Patient comfortable and pain free: Yes kkallner 10:13 AM Time: 09:57LOC: 4 = Oriented but drowsy kkallner 10:14 AM Guide catheter removed intact. kkallner 10:15 AM HR=63 bpm, PTUA=358/90 mmhg, SpO2=99.0 %, Resp=14 B/min 10:16 AM 6Fr JR 4 Runway guide catheter was used to cannulate the PCI vessel successfully. reused? No kkallner 10:16 AM wire removed kkallner 10:19 AM Guide catheter removed intact. kkallner 10:20 AM HR=68 bpm, BZAI=293/84 mmhg, SpO2=94.0 %, Resp=15 B/min 10:21 AM 6Fr KR4S Runway guide catheter was used to cannulate the PCI vessel successfully. reused? No kkallner 10:21 AM wire removed kkallner 10:23 AM ACT drawn kkallner 10:24 AM .014 Prowater 300cm guide wire across target lesion- successful. reused? Yes kkallner 10:24 AM OTW balloon reinserted kkallner 10:24 AM At 10:24 the ACT was 295 seconds. kkallner 10:25 AM HR=63 bpm, QABS=836/89 mmhg, SpO2=99.0 %, Resp=16 B/min 10:27 AM Recorded Pressure: Ao, HR=62, Condition=Condition 1 (Aorta) Ao 108/72/90 10:28 AM Time: 10:13LOC: 4 = Oriented but drowsy kkallner 10:28 AM Time: 10:12 Patient comfortable and pain free: Yes kkallner 10:30 AM HR=63 bpm, HNZR=827/92 mmhg, PkQ9=357.0 %, Resp=16 B/min 10:33 AM Balloon catheter removed intact. kkallner 10:34 AM ACT drawn kkallner 10:35 AM HR=64 bpm, SVVN=924/91 mmhg, SpO2=99.0 %, Resp=14 B/min 10:37 AM .014 PT Graphix 300cm guide wire across target lesion- successful. reused? No kkallner 10:37 AM At 10:37 the ACT was 234 seconds. kkallner 10:37 AM Time: 10:37 Heparin 2000 units Intravenous Given by Uday Hooper RN kkallner 10:39 AM 1.2 mm x 15 mm Emerge OTW balloon across target lesion- successful. reused? No on Prowater kkallner 10:39 AM Recorded Pressure: Ao, HR=65, Condition=Condition 1 (Aorta) Ao 119/85/102 10:40 AM HR=69 bpm, CDVI=700/91 mmhg, SpO2=98.0 %, Resp=17 B/min 10:43 AM Time: 10:28 Patient comfortable and pain free: Yes kkallner 10:43 AM Time: 10:28LOC: 4 = Oriented but drowsy kkallner 10:45 AM HR=64 bpm, HODQ=480/90 mmhg, SpO2=99.0 %, Resp=13 B/min 10:45 AM Balloon catheter removed intact. kkallner 10:47 AM 1.2 x 15 balloon reinserted on the PT graphix kkallner 10:50 AM HR=63 bpm, CXCD=316/94 mmhg, SpO2=99.0 %, Resp=12 B/min 10:51 AM ACT drawn kkallner 10:51 AM balloon removed kk 10:51 AM 1.2 mm x 12 mm Tin Can Feeder OTW balloon across target lesion- successful. reused? No kkallner 10:55 AM HR=63 bpm, HNYV=404/86 mmhg, SpO2=99.0 %, Resp=13 B/min 10:55 AM At 10:55 the ACT was 295 seconds. kkner 10:58 AM Time: 10:43LOC: 4 = Oriented but drowsy kk 10:58 AM Time: 10:43 Patient comfortable and pain free: Yes kk 10:58 AM project reservoir engineer removed kk 10:59 AM .014 Whisper 300cm guide wire across target lesion- successful. reused? No kk 11:00 AM HR=64 bpm, ZGTY=812/94 mmhg, SpO2=99.0 %, Resp=14 B/min 11:02 AM 1.2 x 12 OTW project reservoir engineer reinserted on whisper wire kkner 11:05 AM HR=64 bpm, RMGB=493/93 mmhg, SpO2=92.0 %, Resp=13 B/min 11:06 AM Time: 11:06 Versed 1 mg Intravenous Given by Uday Hooper RN kk 11:06 AM Time: 11:06 Fentanyl 25 mcg Intravenous Given by Uday Hooper RN kk 11:07 AM Balloon inflated @ 14 wendi for 20 seconds kkner 11:07 AM Balloon inflated @ 14 wendi for 20 seconds kkner 11:09 AM Balloon inflated @ 14 wendi for 20 seconds kkner 11:10 AM Balloon inflated @ 14 wendi for 20 seconds kkner 11:10 AM HR=64 bpm, KCXU=862/92 mmhg, SpO2=99.0 %, Resp=14 B/min 11:11 AM Balloon inflated @ 14 wendi for 20 seconds kkner 11:11 AM Balloon inflated @ 14 wendi for 20 seconds kkner 11:12 AM Balloon inflated @ 14 wendi for 20 seconds kkner 11:13 AM kkner 11:13 AM Time: 10:58LOC: 4 = Oriented but drowsy kkallner 11:14 AM whisper wire out kkallner 11:14 AM .014 ChoICE PT Extra Support 300cm guide wire #3 across target lesion- successful. reused? No kkallner 11:15 AM HR=63 bpm, JRRE=609/80 mmhg, SpO2=98.0 %, Resp=11 B/min 11:18 AM Tin Can Feeder removed intact. kkall 11:19 AM 2.0 mm x 15 mm Emerge Monorail balloon across target lesion- successful. reused? No kkall 11:20 AM Guide wire removed intact. kkall 11:20 AM HR=64 bpm, TVEW=232/87 mmhg, SpO2=98.0 %, Resp=13 B/min 11:21 AM Balloon inflated @ 14 wendi for 20 seconds dspell 11:21 AM Balloon inflated @ 14 wendi for 20 seconds dspell 11:22 AM Balloon inflated @ 14 wendi for 20 seconds dspellman 11:22 AM Balloon inflated @ 14 wendi for 20 seconds dspellman 11:23 AM Balloon inflated @ 14 wendi for 20 seconds dspell 11:23 AM Balloon inflated @ 14 wendi for 20 seconds dspellman 11:24 AM Balloon inflated @ 14 wendi for 20 seconds dspellgiddings 11:24 AM Recorded Pressure: Ao, HR=62, Condition=Condition 1 (Aorta) Ao 134/81/104 11:25 AM Balloon catheter removed intact. dspell 11:25 AM HR=64 bpm, WKQZ=727/93 mmhg, SpO2=97.0 %, Resp=12 B/min 11:25 AM 2.5 mm x 20 mm Emerge Monorail balloon across target lesion- successful. reused? No dspell 11:25 AM ACT drawn dspell 11: AM Time: 11: Nitroglycerin 200 mcg Intracoronary Given by Anastacia Garcia MD, [facility] dspellgiddings 11:27 AM Recorded Pressure: Ao, HR=65, Condition=Condition 1 (Aorta) Ao 112/67/86 11:28 AM Time: 11:13LOC: 4 = Oriented but drowsy dspell 11:28 AM Time: 11:13 Patient comfortable and pain free: Yes dspell 11:29 AM Balloon inflated @ 14 wendi for 15 seconds dspellman 11:29 AM Balloon inflated @ 14 wendi for 15 seconds dspellgiddings : AM At 11:29 the ACT was 244 seconds. dspell 11:29 AM Balloon inflated @ 14 wendi for 15 seconds dspell 11:30 AM Balloon inflated @ 14 wendi for 15 seconds dspell 11:30 AM Time: 11:30 Heparin 2000 units Intravenous Given by Uday Hooper RN dspell 11:30 AM HR=63 bpm, MUEI=290/86 mmhg, SpO2=97.0 %, Resp=15 B/min 11:30 AM Balloon inflated @ 14 wendi for 15 seconds dspellman 11:31 AM Balloon inflated @ 14 wendi for 15 seconds dspellman 11:31 AM Balloon inflated @ 14 wendi for 15 seconds dspell 11:32 AM Balloon inflated @ 14 wendi for 15 seconds dspellman 11:32 AM Balloon inflated @ 14 wendi for 15 seconds dspell 11:34 AM Time: 11:34 Nitroglycerin 100 mcg Intracoronary Given by Anastacia Garcia MD, [facility] dspell 11:34 AM Balloon catheter removed intact. 11:35 AM HR=63 bpm, IOAH=178/75 mmhg, SpO2=96.0 %, Resp=16 B/min 11:38 AM 3.0mm x 38mm Synergy drug-eluting stent across target lesion- successful Lot #[id number] dspell 11:39 AM Guide wire #2 removed intact. 11:40 AM HR=64 bpm, QYQC=064/78 mmhg, SpO2=95.0 %, Resp=13 B/min 11:40 AM Stent deployed @ 12 wendi for 30 seconds dspell 11:41 AM Stent balloon reinflated @ 16 wendi for 15 seconds dspell 11:41 AM Recorded Pressure: Ao, HR=65, Condition=Condition 1 (Aorta) Ao 110/69/88 11:42 AM Stent delivery system removed intact. dspell 11:43 AM dspell 11:44 AM ACT drawn dspell 11:44 AM Time: 11:28LOC: 4 = Oriented but drowsy dspell 11:45 AM HR=60 bpm, ORBN=222/84 mmhg, SpO2=95.0 %, Resp=15 B/min 11:45 AM 3.0mm x 38mm Synergy drug-eluting stent across target lesion- successful Lot #[id number] dspell 11:47 AM Recorded Pressure: Ao, HR=62, Condition=Condition 1 (Aorta) Ao 136/77/101 11:47 AM Stent removed intact undeployed dspellman 11:48 AM 6Fr Guidezilla advanced dspellman 11:48 AM At 11:48 the ACT was 384 seconds. [email or web address] 11:49 AM Guidliner removed intact. dspellman 11:50 AM HR=59 bpm, SHRJ=744/91 mmhg, SpO2=96.0 %, Resp=17 B/min 11:51 AM 2.0 mm x 15 mm Emerge Monorail balloon across target lesion- successful. reused? Yes dspellman 11:53 AM Balloon catheter removed intact. dspellman 11:54 AM .014 Whisper 300cm guide wire #4 across target lesion- successful. reused? No [facility] 11:54 AM 1.5 mm x 8 mm Mini Trek OTW balloon across target lesion- successful. reused? Yes [facility] 11:55 AM HR=64 bpm, ZEMT=261/93 mmhg, SpO2=98.0 %, Resp=14 B/min 11:57 AM Recorded Pressure: Ao, HR=64, Condition=Condition 1 (Aorta) Ao 128/79/102 11:58 AM .014 ChoICE PT Extra Support 300cm guide wire #5 across target lesion- successful. reused? No [facility] 11:59 AM Time: 11:44LOC: 4 = Oriented but drowsy dspellman 11:59 AM Time: 11:44 Patient comfortable and pain free: Yes [facility] 12:00 PM HR=68 bpm, DKWA=189/98 mmhg, SpO2=99.0 %, Resp=17 B/min 12:00 PM Balloon catheter removed intact. [email or web address] 12:01 PM Recorded Pressure: Ao, HR=65, Condition=Condition 1 (Aorta) Ao 140/81/106 12:02 PM attempting to send stent to mid RCA dspellgiddings 12:05 PM HR=64 bpm, UTSM=834/94 mmhg, SpO2=98.0 %, Resp=11 B/min 12:09 PM Stent removed intact. dspellman 12:10 PM 3.5 mm x 15mm NC Emerge balloon across target lesion- successful. reused? No [facility] 12:10 PM Pt uncomfortable. 3/10 chest pain dspellgiddings 12:10 PM HR=69 bpm, RBLA=824/95 mmhg, TkA2=478.0 %, Resp=17 B/min 12:11 PM Time: 12:10 Versed 1 mg Intravenous Given by Uday Hooper RN [facility] 12:11 PM Time: 12:11 Fentanyl 25 mcg Intravenous Given by Uday Hooper RN [facility] 12:11 PM Balloon inflated @ 20 wendi for 30 [facility] 12:12 PM Balloon inflated @ 20 wendi for 15 seconds [facility] 12:12 PM Balloon inflated @ 20 wendi for 15 seconds [facility] 12:13 PM Balloon catheter removed intact. dspellgiddings 12:14 PM Time: 11:59 Patient comfortable and pain free: Yes [facility] 12:14 PM Time: 11:59LOC: 4 = Oriented but drowsy [facility] 12:15 PM HR=62 bpm, NRNW=770/88 mmhg, SpO2=99.0 %, Resp=13 B/min 12:16 PM Guideliner inserted over the wire [facility] 12:20 PM Synergy stent 3.0 x 38 reinserted to the MID RCA [facility] 12:20 PM HR=62 bpm, IOSM=874/88 mmhg, SpO2=99.0 %, Resp=13 B/min 12:21 PM Stent deployed @ 16 wendi for 34 seconds [facility] 12:21 PM Stent balloon reinflated @ 16 wendi for 18 seconds [facility] 12:22 PM Stent delivery system removed intact. dspellgiddings 12:23 PM ACT drawn [facility] 12:25 PM HR=64 bpm, YCSI=148/92 mmhg, SpO2=99.0 %, Resp=14 B/min 12:26 PM 3.5mm x 28mm Synergy drug-eluting stent across target lesion- successful Lot #[id number] [facility] 12:27 PM At 12:27 the ACT was 208 seconds. [email or web address] 12:29 PM Time: 12:14LOC: 4 = Oriented but drowsy [facility] 12:29 PM Time: 12:14 Patient comfortable and pain free: Yes [facility] 12:30 PM Stent deployed @ 16 wendi for 38 seconds [facility] 12:30 PM HR=62 bpm, DTOU=597/92 mmhg, PiG9=645.0 %, Resp=13 B/min 12:30 PM Time: 12:30 Heparin 3000 units Intravenous Given by Anastacia Garcia MD, FACC dspellman 12:30 PM Stent balloon reinflated @ 16 wendi for 15 seconds dspellman 12:31 PM Recorded Pressure: Ao, HR=64, Condition=Condition 1 (Aorta) Ao 128/87/107 12:32 PM Stent delivery system removed intact. dspellman 12:34 PM 3.5 mm x 20mm NC Emerge balloon across target lesion- successful. reused? No dspellman 12:35 PM HR=64 bpm, JYSH=903/92 mmhg, SpO2=99.0 %, Resp=13 B/min 12:35 PM PCI lesion in Proximal RCA. Pre Stenosis: 99 Pre XENA Flow: 2: Partial Flow/Perfusion (> 1 but < 3) dspellman 12:37 PM Balloon inflated @ 20 wendi for 24 seconds dspellman 12:37 PM Balloon inflated @ 20 wendi for 15 seconds dspellman 12:38 PM Balloon inflated @ 20 wendi for 15 seconds dspellman 12:38 PM Balloon inflated @ 20 wendi for 15 seconds dspellman 12:39 PM Balloon inflated @ 20 wendi for 15 seconds dspellman 12:39 PM Balloon inflated @ 20 wendi for 15 seconds dspellman 12:40 PM HR=66 bpm, RRUM=682/94 mmhg, FwG5=826.0 %, Resp=15 B/min 12:40 PM Balloon inflated @ 20 wendi for 10 seconds dspellman 12:41 PM Balloon catheter removed intact. dspellman 12:41 PM Recorded Pressure: Ao, HR=62, Condition=Condition 1 (Aorta) Ao 148/89/114 12:42 PM Guideliner removed intact. dspellman 12:44 PM Guide wire removed intact. dspellman 12:44 PM Time: 12:29 Patient comfortable and pain free: Yes dspellman 12:45 PM Time: 12:29LOC: 4 = Oriented but drowsy dspellman 12:45 PM HR=65 bpm, YYXN=758/78 mmhg, SpO2=99.0 %, Resp=20 B/min 12:50 PM HR=64 bpm, BCBT=963/94 mmhg, SpO2=99.0 %, Resp=15 B/min 12:50 PM ACT drawn dspellman 12:51 PM At 12:51 the ACT was >400 seconds. dspellman 12:52 PM 3.5mm x 12mm Synergy drug-eluting stent across target lesion- successful Lot #[id number] dspellman 12:54 PM Stent deployed @ 16 wendi for 30 seconds dspell 12:55 PM HR=62 bpm, JDYP=717/94 mmhg, ZyF5=508.0 %, Resp=8 B/min 12:55 PM Stent balloon reinflated @ 16 wendi for 20 seconds dspell 12:56 PM Stent delivery system removed intact. ell 12:56 PM Recorded Pressure: Ao, HR=66, Condition=Condition 1 (Aorta) Ao 149/88/113 12:57 PM Time: 12:56 Nitroglycerin 200 mcg Intracoronary Given by Anastacia Garcia MD, [facility] 01:00 PM Time: 12:58 Nitroglycerin 200 mcg Intracoronary Given by Anastacia Garcia MD, [facility] :00 PM Time: 12:44 Patient comfortable and pain free: Yes [facility] :00 PM Time: 12:45LOC: 4 = Oriented but drowsy [facility] :00 PM HR=64 bpm, CHLS=138/89 mmhg, SpO2=98.0 %, Resp=17 B/min 01:00 PM Guide wire removed intact. : PM Guide catheter removed intact. [facility]:02 PM Bolus angiogram of right Femoral complete: 4 ml/sec for a total of 7 mls [facility] :02 PM act drawn :04 PM Time: 13:03 Brilinta 180 mg Orally Given by Josselin Bullard RN [facility] 01:04 PM Procedure completed at 13:04 [facility] :04 PM Sign out completed: Radiation Dose 5748.90 mGy Fluoro Time: 81.0 Isovue 370 - 200ml contrast 331 ml given by Anastacia Garcia MD, [facility]. Complications: NoneCardiac Rehab Consult needed: YesConfirmed administered medications: Yes [facility] 01:04 PM Isovue 370 - 200ml,3 Bottle(s) used. [facility] :05 PM At 13:05 the ACT was 213 seconds. :05 PM Sheath left in place to be pulled on floor/holding areaV+Pad [facility] 01:05 PM HR=63 bpm, OLHP=658/96 mmhg, SpO2=97.0 %, Resp=11 B/min 01:05 PM Post Blood Pressure 148/96 [facility] 01:05 PM Information taught Cardiac Cath and PCI dspell: PM Education needs Procedure, Plan of Care, and Disease Process dspell: PM Learning barriers :Sedated and Cognitive dspell: PM Education Methods Verbal dspell: PM Education evaluation Needs further instruction dspell: PM Site status No bleeding/hematoma - Rt Groin as reported by Betsy London RT at 13:06 dspell: PM Opsite applied dspell: PM Delay to floor No dspellman : PM NO family available dspell: PM Complications: None dspell: PM Fluoro Time: 81 dspell: PM Isovue 370 - 200ml contrast 331 ml given by Anastacia Garcia MD, [facility]. dspell:07 PM Radiation Dose 5748.90 mGy dspell 01:10 PM Vitals capture stopped. 01:10 PM Lesion found in LMCA. Pre Stenosis: 50 Pre XENA Flow: dspellman 01:10 PM Left Main Coronary Artery with 50% stenosis dspellman :11 PM Lesion found in Proximal LAD. Pre Stenosis: 90 Pre XENA Flow: dspellman 01:11 PM Proximal Left Anterior Descending Coronary Artery with 90% stenosis. If graft is supplying this territory, 0 % stenosis. dspellman :11 PM Lesion found in Mid LAD. Pre Stenosis: 100 Pre XENA Flow: dspellman 01:11 PM Mid/Distal Left Anterior Descending Coronary Artery and diagonal branches with 100% stenosis. If graft is supplying this area, 0 % stenosis dspellman :11 PM Lesion found in Proximal Circumflex. Pre Stenosis: 70 Pre XENA Flow: dspellman 01:11 PM Circumflex, Obtuse Marginal, Left Posterior Descending, and Left Posterolateral Coronary Arteries with 70 % stenosis. If graft is supplying this area, 0 % stenosis dspell:15 PM Time: 13:00 Patient comfortable and pain free: Yes dspell:15 PM Time: 13:00LOC: 5 = Fully awake and oriented or at pre-proc level dspell:22 PM Report given to oneyda KOLB Pt taken to Room #2. 13:21 dspell:25 PM 13:25 Post Pulses Bilateral DP & PT 1+ dspellman 01:27 PM Post ECG Ventricular Paced dspellman Complications Complication None None Hemodynamics Pressures Site Systolic/A Wave Diastolic/V Wave Mean AO 122 82 101 AO 126 86 106 AO 137 81 105 AO 108 72 90 AO 119 85 102 AO 134 81 104 AO 112 67 86 AO 110 69 88 AO 136 77 101 AO 128 79 102 AO 140 81 106 AO 128 87 107 AO 148 89 114 AO 149 88 113 Post Procedure Information Blood Pressure: 148/96 mmHg Rhythm: Ventricular Paced Post procedural instructions were given Site Checks Time Location Status Staff Sheath In? Note 01:06 PM Rt Groin No bleeding/hematoma Betsy London RT Pulses Time Site Pre-Procedure Post-Procedure Note Bilateral DP & PT 1+ Bilateral radial 2+ 1:25:00 PM Bilateral DP & PT 1+ Updated by Betsy London RT (R) on 11/02/2016 1:28:59 PM electronically signed on 11/02/2016 1:29:42 PM with status of Final
[2016-11-02] MEDS ORDERED: *HR* Atropine Sulfate 1 MG/10 ML SYRINGE ONE (14:43)
--- NOTE | 2016-11-02 18:11 | Invasive Diagnostic Lab ---
Name: Yue Pizarro Date of Study: 11/02/2016 Date: 1940 Ht: 178.0 cm /70.1 in Medical Record#: [id number] Age: 75 Wt: 88. kg / 194.01 lb Account/Order#: [id number] Gender: Male BSA: 2.06 Order #: [id number] Fluoro Dose: 5749 mGy BMI: 27.77 Procedure Physician: Anastacia Garcia MD, [facility] Referring MD: Referring MD: Procedures Performed: CORONARY ANGIOGRAPHY W/ GRAFTS PCI of Acute VT Indications: Non-Stemi Impressions: Acute VT due to acute stent thrombosis of ostial RCA stent. Vessel subtotally occluded with large thrombus burden. Triple vessel disease. S/P CABG 2 of 2 patent bypass grafts. Patient had successful PTCA/Drug-Eluting Stent placement in the RCA. Recommendations: Dual antiplatelet therapy. Optimal medical therapy of patient's disease. Aggressive risk factor modification. History/Risk Factors: asthma afib CABG pacemaker CHF CVA DARLYN Diabetes Hypertension Prior VT Procedure Access obtained in the right Femoral artery by percutaneous puncture Patient had successful PTCA/Drug-Eluting Stent placement in the RCA. Very technically challenging procedure requiring use of multiple guides, wires, balloons, guideliner. Prolonged procedure at 218 minutes. Complications: None, None Contrast: Isovue 331ml Hemodynamics: Pressures Site Systolic/ A Wave Diastolic/ V Wave End Diastolic/ Mean HR AO 122 82 101 66 AO 126 86 106 72 AO 137 81 105 65 AO 108 72 90 62 AO 119 85 102 65 AO 134 81 104 62 AO 112 67 86 65 AO 110 69 88 65 AO 136 77 101 62 AO 128 79 102 64 AO 140 81 106 65 AO 128 87 107 64 AO 148 89 114 62 AO 149 88 113 66 Coronary Dominance: right Lesion Findings/Interventions * Left Main Coronary Artery There is a 50% stenosis in the LMCA. * Left Anterior Descending There is a 90% stenosis in the Proximal LAD. There is a 100% stenosis in the Mid LAD. * Circumflex There is a 70% stenosis in the Proximal Circumflex. * Right Coronary Artery There is a 100 mm long, 99% instent acute thrombosis of ostial RCA. Vessel subtotally occluded with large thrombus burden. The lesion has a XENA flow of 2 and has thrombus present. This lesion is further described as diffusely diseased. An intervention was performed on the Proximal RCA with a final stenosis of 0%. There were no lesion complications. The final XENA flow was 3. Additional Findings: Grafts * The left internal mammary graft to the Mid LAD is patent. * The saphenous vein graft to the 1st Marginal is patent. Interventional Device(s) Vessel Segment Type Name Diameter (mm) Length (mm) Proximal RCA balloon Mini Trek OTW 1.5 8 Proximal RCA balloon Emerge OTW 1.2 15 Proximal RCA balloon Property Staff Accountant Monorail 1.2 12 Proximal RCA balloon Property Staff Accountant OTW 1.2 12 Proximal RCA balloon Emerge Monorail 2 15 Proximal RCA balloon Emerge Monorail 2.5 20 Proximal RCA drug-eluting stent Synergy 3 38 Proximal RCA drug-eluting stent Synergy 3 38 Proximal RCA balloon Emerge Monorail 2 15 Proximal RCA balloon Mini Trek OTW 1.5 8 Proximal RCA balloon NC Emerge 3.5 15 Proximal RCA drug-eluting stent Synergy 3.5 28 Proximal RCA balloon NC Emerge 3.5 20 Proximal RCA drug-eluting stent Synergy 3.5 12 Updated by Anastacia Garcia MD, FACC on 11/02/2016 6:02:54 PM Anastacia Garcia MD, FACC electronically signed on 11/02/2016 6:06:37 PM with status of Final
[2016-11-02] MEDS: amLODIPine 5 MG TABLET PO SCH (18:27)
[2016-11-02] MEDS: Furosemide 40 MG TABLET PO SCH (18:31)
[2016-11-03] MEDS: Heparin 25,000 UNIT/500 ML D5W 25,000 UNIT/500 ML MLS IVC SCH (03:08)
[2016-11-03 03:36] LABS: Alanine Aminotransferase 56 Units/L (0-55); Albumin 3.1 g/dL (3.5-5.0); Albumin/Globulin Ratio 1.1 (1.1-2.2); Alkaline Phosphatase 56 Units/L (38-126); Aspartate Amino Transferase 234 Units/L (5-34); BUN/Creatinine Ratio 24 (6-26); Bilirubin,Total 0.7 mg/dL (0.2-1.2); Blood Urea Nitrogen 27 mg/dL (8-26); Calcium 8.9 mg/dL (8.6-10.8); Carbon Dioxide 22 mEq/L (19-29); Chloride 110 mEq/L (98-109); Globulin 2.8 g/dL (2.4-3.5); Glucose 157 mg/dL (70-99); Osmolality,Calculated 298 (280-300); Sodium 140 mEq/L (136-145); Total Protein 5.9 g/dL (6.0-8.3); eGFR For African Americans > 60 (> 60); eGFR For Non-African Americans > 60 (> 60)
[2016-11-03] MEDS: Ondansetron 4 MG/2 ML VIAL IVP PRN (04:24)
[2016-11-03] MEDS: Nitroglycerin 0.4 MG TAB.SUBL SL PRN ×2 (04:24→20:36)
[2016-11-03] MEDS: Famotidine 20 MG/2 ML VIAL IVP SCH (05:39)
--- NOTE | 2016-11-03 08:08 | Electrocardiograph Report ---
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
[2016-11-03] MEDS: Furosemide 40 MG TABLET PO SCH (08:16)
[2016-11-03] MEDS: Aspirin Enteric Coated 81 MG Tablet PO SCH (08:16)
[2016-11-03] MEDS: *HR* Ticagrelor 90 MG TABLET PO SCH ×2 (08:16→20:34)
[2016-11-03] MEDS: Isosorbide MONOnitrate (24 HR) 30 MG TAB.ER.24H PO SCH (08:16)
[2016-11-03] MEDS: amLODIPine 5 MG TABLET PO SCH (08:16)
[2016-11-03] MEDS: Insulin LISPRO 300 UNITS/3 ML VIAL SQ SCH ×4 (08:18→20:34)
[2016-11-03 09:48] LABS: Basophils % 0.2 %; Eosinophils % 0.1 %; Hematocrit 34.5 % (37.5-50.1); Immature Granulocytes % 0.5 % (0-4); Lymphocytes # 1.8 K/mcL (0.6-4.6); Lymphocytes % 10.5 %; Mean Corpuscular HGB Conc 33.9 g/dL (31.6-35.5); Mean Corpuscular Hemoglobin 29.3 pg (28.0-33.3); Mean Corpuscular Volume 86.5 fL (83.0-100.0); Mean Platelet Volume 11.2 fL (9.4-12.4); Monocytes % 5.7 %; Neutrophils # 14.4 K/mcL (1.6-8.9); Platelet Count 153 K/mcL (140-400); Red Blood Count 3.99 M/mcL (4.19-5.50); Red Cell Distribution Width 14.2 % (11.5-14.5)
[2016-11-03 09:58] LABS: Hemoglobin 11.7 g/dL (12.9-16.9)
--- NOTE | 2016-11-03 10:17 | Cardiology Progress Note ---
Date of Encounter: 11/03/16 Time of Encounter: 10:15 Assessment and Plan (1) Acute AK Current Visit: Yes Status: Acute -Troponin 0.05, >50, and >50. -[facility] yesterday revealed acute AK was due to acute stent thrombosis of ostial RCA stent. Vessel subtotally occluded with large thrombus burden. Triple vessel disease. S/P CABG 2 of 2 patent bypass grafts. Successful PTCA/JATINDER in RCA. 4 JATINDER total. -Right femoral access site healing well. No bleeding or hematoma noted. Mild ecchymosis. -Recommend DAPT (ASA and Brilinta) uninterrupted x 1 year. Pt verbalizes understanding. -Reports worsening dyspnea overnight, could be secondary to Brilinta. O2 sats 98 % at bedside. Pt willing to continue Brilinta. -Continue statin, beta fuentes, imdur, clara inhibitor. -Echo pending. -Pt remains on heparin gtt. Will stop later today and resume Xarelto. -HGB dropped from 14.5 to 11.7, No evidence of active bleeding. Suspect secondary to dilutional and s/p prolonged cath procedure. Continue to monitor. -Renal function back to baseline, creatinine 1.12 today. -Pt reports intermittent chest pain, but not as severe as he was experiencing yesterday prior to [facility]. There is chest wall tenderness on palpation, suspect musculoskeletal component. Will increase Imdur to 120mg daily since he does have known CAD and s/p revascularization yesterday. -EKG rechecked, no acute changes. Qualifiers: Myocardial infarction ST status: non-ST elevation myocardial infarction Qualified Code(s): I21.4 - Non-ST elevation (NSTEMI) myocardial infarction (2) CAD (coronary artery disease) Current Visit: Yes Status: Chronic Per cardiology: -Known CAD with CABG x2 2002 and subsequent PCI 10/04/16 and 11/02/16. -[facility] yesterday revealed acute AK was due to acute stent thrombosis of ostial RCA stent. Vessel subtotally occluded with large thrombus burden. Triple vessel disease. S/P CABG 2 of 2 patent bypass grafts. Successful PTCA/JATINDER in RCA. 4 JATINDER total. -Recommend DAPT (ASA and Brilinta) uninterrupted x 1 year. Pt verbalizes understanding. -Reports worsening dyspnea overnight, could be secondary to Brilinta. O2 sats 98 % at bedside. Pt willing to continue Brilinta. -Continue statin, beta fuentes, imdur, clara inhibitor. -Echo pending. Qualifiers: Coronary Disease-Associated Artery/Lesion type: unspecified vessel or lesion type [place] vs. transplanted heart: nondalton heart Associated angina: angina presence unspecified Qualified Code(s): I25.10 - Atherosclerotic heart disease of nondalton coronary artery without angina pectoris (3) Ischemic cardiomyopathy Current Visit: No Status: Chronic Per cardiology: -Known ischemic cardiomyopathy. -Echo 10/11/16 with LVEF 40%, mild concentric left ventricular hypertrophy, global left ventricular systolic dysfunction, no significant valvular dysfunction, all mena hypokinetic. -On beta fuentes and clara inhibitor. -Euvolemic on exam. -Repeat echo pending. (4) Paroxysmal a-fib Current Visit: No Status: Chronic Per cardiology: -Known PAF. -ON beta fuentes and xarelto at home. -Currently on heparin drip. -last xarelto dose 10/31/16. -HRs 70s. -Will resume xarelto this evening and stop heparin gtt. Discussion w patient/family: The assessment and plan as outlined above was discussed with the patient and/or family members who expressed understanding and agreement. All questions were answered. Thank you for involving us in the care of your patient. Please call with any questions. I will discuss all the above with Dr. Stone and make changes as necessary. Subjective Principal diagnosis: NSTEMI, CAD Interval history: S/P LHC yesterday for acute AK troponin >50. LHC revealed acute AK due to acute stent thrombosis of ostial RCA stent. Vessel subtotally occluded with large thrombus burden. Triple vessel disease. S/P CABG 2 of 2 patent bypass grafts, successful PTCA/JATINDER in RCA. Pt reports intermittent chest pain this AM, but is tender on palpation. Reports pain much improved from yesterday prior to cath. He reports worsening dyspnea, O2 98% at bedside. Reports right groin pain as well. Echo pending. Objective Vital Signs, Last 4 Hours Temp Pulse Resp BP Pulse Ox 11/03/16 08:02 67 96 11/03/16 07:03 98.3 F 73 17 115/76 96 Vital Signs Temp Pulse Resp BP Pulse Ox 11/03/16 08:02 67 96 11/03/16 07:03 98.3 F 73 17 115/76 96 11/03/16 04:07 97.8 F 73 18 106/66 95 11/02/16 23:19 97.6 F 86 18 92/82 95 11/02/16 21:30 75 118/70 97 11/02/16 20:30 68 112/64 87 11/02/16 20:02 98.0 F 65 16 103/58 94 11/02/16 19:30 64 104/65 96 11/02/16 19:00 72 121/79 93 11/02/16 18:53 75 131/81 97 11/02/16 18:15 73 113/75 96 11/02/16 18:10 66 123/78 95 11/02/16 18:05 71 115/79 95 11/02/16 18:00 69 17 123/82 96 11/02/16 17:55 70 16 133/84 97 11/02/16 17:50 68 18 124/75 96 11/02/16 17:45 68 18 123/76 97 11/02/16 17:40 63 15 134/77 97 11/02/16 17:20 70 127/72 97 11/02/16 16:10 73 122/75 96 11/02/16 16:08 97.6 F 64 18 122/75 94 11/02/16 15:30 70 120/76 11/02/16 15:00 69 138/86 11/02/16 14:45 72 123/91 97 11/02/16 14:30 64 146/88 97 11/02/16 14:15 70 125/82 94 11/02/16 14:00 65 124/80 97 11/02/16 13:55 66 135/86 97 11/02/16 13:54 60 97 11/02/16 13:48 98.8 F 66 18 139/86 97 11/02/16 13:45 69 141/82 Intake and Output 11/02/16 11/03/16 11/03/16 23:59 07:59 15:59 Intake Total 750 / 750 Output Total 650 / 650 150 / 150 100 / 100 Balance 100 / 100 -150 / -150 -100 / -100 Intake: IV Fluids 250 / 250 0.9 % Sodium Chloride 1, 250 / 250 000 ML @ 75 mls/hr IVC . [id number] MACI Rx#: [id number] Oral 500 / 500 Output: Urine 650 / 650 150 / 150 100 / 100 Other: Weight 88.5 kg Blood Glucose* 198 145 Patient Weight 11/03/16 23:59 Weight 88.5 kg General: Conversant, No Apparent Distress HEENT: Atraumatic, Normocephaly, Mucus Membranes Moist Neck: No JVD, Normal carotid pulses Cardiac: Reg Rate and Rhythm, Normal S1 and S2, No Murmur Lungs: Normal Breath Sounds, No Wheeze, Rales, Rhonchi Neuro: Alert and responsive, No focal deficits noted Abdomen: Soft, Non-Tender Skin: Other (right femoral access site healing well. No bleeding or hematoma. Mild ecchymosis noted.) Musculoskeletal: No Chest Wall Tenderness Extremities: No Clubbing, No Cyanosis, No Edema, Normal Pulses Results 11/03/16 09:19 11/03/16 03:14 Lab Results 11/03/16 11/03/16 11/03/16 03:14 09:19 09:19 WBC 17.3 H Hgb 11.7 L D Hct 34.5 L Plt Count 153 APTT 40.0 H Sodium 140 Potassium 4.0 Chloride 110 H Carbon Dioxide 22 BUN 27 H Creatinine 1.12 Glucose 157 H Calcium 8.9 Total Bilirubin 0.7 AST 234 H ALT 56 H Alkaline Phosphatase 56 Short CBC 11/03/16 Range/Units 09:19 WBC 17.3 H (4.3-11.1) K/mcL Hgb 11.7 L D (12.9-16.9) g/dL Hct 34.5 L (37.5-50.1) % Plt Count 153 (140-400) K/mcL Neutrophils # 14.4 H (1.6-8.9) K/mcL BMP 11/03/16 Range/Units 03:14 Sodium 140 (136-145) mEq/L Potassium 4.0 (3.5-4.5) mEq/L Chloride 110 H (98-109) mEq/L Carbon Dioxide 22 (19-29) mEq/L BUN 27 H (8-26) mg/dL Creatinine 1.12 (0.72-1.25) mg/dL Glucose 157 H (70-99) mg/dL Calcium 8.9 (8.6-10.8) mg/dL Liver Function 11/03/16 Range/Units 03:14 Total Bilirubin 0.7 (0.2-1.2) mg/dL AST 234 H (5-34) Units/L ALT 56 H (0-55) Units/L Alkaline Phosphatase 56 (38-126) Units/L Albumin 3.1 L (3.5-5.0) g/dL Active Medications Amlodipine Besylate (Norvasc) 10 mg PO DAILY MACI PRN Reason: Protocol Stop: 05/04/17 09:01 Last Admin: 11/03/16 08:16 Dose: 10 mg Aspirin (Aspirin Ec) 81 mg PO DAILY MACI Stop: 05/04/17 09:01 Last Admin: 11/03/16 08:16 Dose: 81 mg Atorvastatin Calcium (Lipitor) 40 mg PO HS [facility] Stop: 05/04/17 21:01 Last Admin: 11/02/16 21:22 Dose: 40 mg Carvedilol (Coreg) 3.125 mg PO BIDWM MACI PRN Reason: Protocol Stop: 05/04/17 08:01 Last Admin: 11/03/16 08:16 Dose: 3.125 mg Dextrose/Water (Dextrose 50% (Syg)) 25 ml IVP AD PRN PRN Reason: Hypoglycemia Stop: 05/03/17 23:00 Famotidine (Pepcid) 20 mg IVP Q12HR [facility] Stop: 05/04/17 06:01 Last Admin: 11/03/16 05:39 Dose: 20 mg Furosemide (Lasix) 40 mg PO DAILY [facility] Stop: 05/04/17 09:01 Last Admin: 11/03/16 08:16 Dose: 40 mg Glucagon (Glucagen) 1 mg IM ONCE PRN PRN Reason: Hypoglycemia Stop: 05/03/17 23:00 Glucose (Gluctose) 15 gm PO ONCE PRN PRN Reason: Hypoglycemia Stop: 05/03/17 23:00 Glucose (Gluctose) 30 gm PO ONCE PRN PRN Reason: Hypoglycemia Stop: 05/03/17 23:00 Heparin Sodium (Porcine) (Heparin) 4,000 unit IVP Q6HR PRN PRN Reason: SEE COMMENTS Stop: 05/03/17 21:26 Heparin Sodium (Porcine) (Heparin) 2,000 unit IVP Q6H PRN PRN Reason: SEE COMMENTS Stop: 05/03/17 21:26 Heparin Sodium/Dextrose (Heparin 25,000 Unit/500 Ml D5w) 25,000 unit in 500 mls @ 20.038 mls/hr IVC .Q24H MACI; 11.45 UNITS/KG/HR PRN Reason: Protocol Stop: 05/03/17 21:31 Last Admin: 11/03/16 03:08 Dose: 9.45 units/kg/hr, 16.538 mls/hr Dextrose (Dextrose 5%) 1,000 mls @ 100 mls/hr IVC .Q10H PRN PRN Reason: HYPOGLYCEMIA Stop: 05/03/17 23:00 Insulin Human Lispro (Humalog) 0 units SQ HS [facility] PRN Reason: Protocol Stop: 05/04/17 21:01 Last Admin: 11/02/16 21:23 Dose: Not Given Insulin Human Lispro (Humalog) 0 units SQ TIDAC [facility] PRN Reason: Protocol Stop: 05/04/17 19:46 Last Admin: 11/03/16 08:18 Dose: 2 units Isosorbide Mononitrate (Imdur) 90 mg PO DAILY [facility] Stop: 05/04/17 09:01 Last Admin: 11/03/16 08:16 Dose: 90 mg Lisinopril (Zestril) 2.5 mg PO DAILY [facility] PRN Reason: Protocol Stop: 05/04/17 09:01 Last Admin: 11/03/16 08:17 Dose: 2.5 mg Naloxone HCl (Narcan) 0.4 mg IVP Q2MIN PRN PRN Reason: Opioid Reversal Stop: 05/03/17 22:58 Nitroglycerin (Nitroglycerin) 0.4 mg SL Q5MIN PRN PRN Reason: Chest Pain Stop: 05/03/17 20:59 Last Admin: 11/03/16 04:24 Dose: 0.4 mg Ondansetron HCl (Zofran) 4 mg IVP Q8HR PRN PRN Reason: Nausea And Vomiting Stop: 05/03/17 22:58 Last Admin: 11/03/16 04:24 Dose: 4 mg Ticagrelor (Brilinta) 90 mg PO BID [facility] Stop: 05/05/17 09:01 Last Admin: 11/03/16 08:16 Dose: 90 mg - Imaging and Cardiology Echo: pending Cardiac cath: report reviewed - EKG Interpretation EKG results cardiology: other (12 hr tele AVG HR 67, paced) Consult Discharge Plan - Plan Additional Instructions: pcp requested Referrals: Lance Cronin MD [Partnered Physician] -
[2016-11-03] MEDS ORDERED: 0.9 % Sodium Chloride 500 ML ONE (11:52)
--- NOTE | 2016-11-03 14:02 | Electrocardiograph Report ---
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
--- NOTE | 2016-11-03 14:50 | Electrocardiograph Report ---
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
[2016-11-03] MEDS ORDERED: Acetaminophen 325 MG TABLET PO PRN (15:32)
--- NOTE | 2016-11-03 15:46 | Electrocardiograph Report ---
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
--- NOTE | 2016-11-03 16:02 | Internal Med Progress Note ---
Date of Encounter: 11/03/16 Time of Encounter: 08:10 - Assessment and plan (1) NSTEMI (non-ST elevated myocardial infarction) Current Visit: Yes Status: Acute Assessment and plan: Non-ST elevation [place] S/P [facility] (11/02/2016) - acute stent thrombosis of ostial RCA stent, vessel subtotally occluded with large thrombus, triple-vessel disease, 2 patent bypass grafts, successful PTCA/JATINDER placement in the RCA Echocardiogram - LVEF 35-40%, global LV systolic dysfunction with regional variations in inferior wall, mild diastolic dysfunction, atypical septal motion , normal RV size Continue Aspirin, statin, Brillinta, carvedilol, Lisinopril and Xarelto Anticipate discharge in a.m. (2) Congestive heart failure Current Visit: No Status: Chronic Assessment and plan: LVEF 35-40%, global LV systolic dysfunction, mild diastolic dysfunction, atypical septal motion, normal RV size Continue carvedilol, lisinopril, Lasix and Imdur Qualifiers: Congestive heart failure type: combined Congestive heart failure chronicity : chronic Qualified Code(s): I50.42 - Chronic combined systolic (congestive) and diastolic (congestive) heart failure (3) CAD (coronary artery disease) Current Visit: Yes Status: Chronic Assessment and plan: History of coronary artery disease status post CABG 2 in 2002 [facility] 10/04/16 - severe three-vessel disease with patent bypass grafts Qualifiers: Coronary Disease-Associated Artery/Lesion type: unspecified vessel or lesion type [place] vs. transplanted heart: [place] heart Associated angina: angina presence unspecified Qualified Code(s): I25.10 - Atherosclerotic heart disease of [place] coronary artery without angina pectoris (4) HTN (hypertension) Current Visit: Yes Status: Chronic Assessment and plan: Essential hypertension, controlled, continue current meds, monitor Qualifiers: Hypertension type: essential hypertension Qualified Code(s): I10 - Essential (primary) hypertension (5) HLD (hyperlipidemia) Current Visit: No Status: Chronic Assessment and plan: Continue atorvastatin Qualifiers: Hyperlipidemia type: pure hypercholesterolemia Qualified Code(s): E78.00 - Pure hypercholesterolemia, unspecified; E78.0 - Pure hypercholesterolemia (6) DM2 (diabetes mellitus, type 2) Current Visit: No Status: Chronic Assessment and plan: Diabetes mellitus type 2, [id number], hyperglycemia Continue insulin sliding scale, glucose checks Qualifiers: Diabetes mellitus complication status: with circulatory complication Diabetes mellitus complication detail: with other circulatory complications Diabetes mellitus fdc insulin use: without extermination supervisor use Qualified Code( s): E11.59 - Type 2 diabetes mellitus with other circulatory complications (7) DVT prophylaxis Current Visit: Yes Status: Acute Assessment and plan: IV heparin continued - Time Spent With Patient 25 - 35 minutes - Subjective Interval history: Examined this morning. Patient is awake and alert. Not in any distress. Denies chest pain or shortness of breath. Tolerating oral diet well. Hemodynamically stable. No fever. Complains of mild pain in the right groin at the Site. No bleeding or oozing. Distal pulses are palpable. No other acute events or complaints. - Constitutional Vitals: Temp Pulse Resp BP Pulse Ox 97.6 F 62 22 102/58 97 11/03/16 15:23 11/03/16 15:23 11/03/16 15:23 11/03/16 15:23 11/03/16 15:23 General appearance: Present: A&O X 3, pleasant, no acute distress, answers questions appropriately Exam: Patient is hard of hearing - Head Head exam: Present: atraumatic - Eye Eye exam: Present: EOMI - ENT ENT exam: Present: mucous membranes moist - Neck Neck exam general surgery: Present: supple - Respiratory Respiratory exam: Present: CTAB. Absent: rales, rhonchi, wheezes, tachypnea - Cardiovascular Cardiovascular exam: Present: RRR, +S1, +S2 - GI/Abdominal GI/Abdominal exam: Present: soft. Absent: distended, firm, guarding, tenderness - Extremities Exam Extremities exam: Present: radial pulses palpable and symmetrical. Absent: cyanotic, pedal edema Additional comments: Right groin cath Site - mild swelling, mild tenderness, no bleeding, distal pulses are strong - Neurological Exam Neurological exam: Present: alert, oriented X3, no focal deficits. Absent: facial droop, speech deficit Internal Medicine: Result - Labs CBC & Chem 7: 11/03/16 09:19 11/03/16 03:14 Labs: Short CBC 11/03/16 Range/Units 09:19 WBC 17.3 H (4.3-11.1) K/mcL Hgb 11.7 L D (12.9-16.9) g/dL Hct 34.5 L (37.5-50.1) % Plt Count 153 (140-400) K/mcL Neutrophils # 14.4 H (1.6-8.9) K/mcL BMP 11/03/16 03:14 Sodium 140 Potassium 4.0 Chloride 110 H Carbon Dioxide 22 BUN 27 H Creatinine 1.12 Glucose 157 H Calcium 8.9 Liver Function 11/03/16 Range/Units 03:14 Total Bilirubin 0.7 (0.2-1.2) mg/dL AST 234 H (5-34) Units/L ALT 56 H (0-55) Units/L Alkaline Phosphatase 56 (38-126) Units/L Albumin 3.1 L (3.5-5.0) g/dL - ABG Interpretation ABG results: PT/INR, D-dimer PT 11.6 Seconds (9.4-12.1) 11/01/16 17:20 Consult Discharge Plan - Plan Additional Instructions: pcp requested Referrals: Lance Cronin MD [Partnered Physician] -
[2016-11-03] MEDS ORDERED: *HR* Rivaroxaban 15 MG TABLET PO SCH (17:00)
[2016-11-03] MEDS ORDERED: Famotidine 20 MG TABLET PO SCH (18:00)
[2016-11-04] MEDS: *HR* Morphine 2 MG/ML SYRINGE IV PRN ×2 (00:24→05:25)
[2016-11-04] MEDS: Nitroglycerin 0.4 MG TAB.SUBL SL PRN (00:40)
[2016-11-04] MEDS: Ondansetron 4 MG/2 ML VIAL IVP PRN (00:49)
--- NOTE | 2016-11-04 01:28 | Event Note ---
Date of Encounter: 11/04/16 Time of Encounter: 01:22 Called to bedside for patient complaining of chest pain. Patient admits to chronic chest pain and says that this is consistent with chest pain experienced in the past. Describes it as a dull pain in center of chest. EKG ordered and unchanged from previous EKGs. Troponin not drawn due to patient having stent placement yesterday which would result in elevated troponin levels secondary to procedure. Patient was given nitroglycerin and pain has resolved. He was also complaining of left sided numbness and tingling of entire left side of body and right foot. Full neuro/NIH assessment was performed which showed no focal neuro deficits. He did complain of tingling of left face but stated that it was resolving as well. Will order MR brain w/o contrast for further assessment.
[2016-11-04 06:03] LABS: Basophils # 0.1 K/mcL (0.0-0.2); Basophils % 0.6 %; Eosinophils # 0.1 K/mcL (0.0-0.6); Eosinophils % 0.8 %; Hematocrit 34.6 % (37.5-50.1); Hemoglobin 11.4 g/dL (12.9-16.9); Immature Granulocytes % 0.4 % (0-4); Lymphocytes # 1.9 K/mcL (0.6-4.6); Lymphocytes % 17.4 %; Mean Corpuscular HGB Conc 32.9 g/dL (31.6-35.5); Mean Corpuscular Hemoglobin 28.5 pg (28.0-33.3); Mean Corpuscular Volume 86.5 fL (83.0-100.0); Mean Platelet Volume 11.3 fL (9.4-12.4); Monocytes # 0.8 K/mcL (0.0-1.3); Monocytes % 7.6 %; Neutrophils # 7.9 K/mcL (1.6-8.9); Platelet Count 117 K/mcL (140-400); Red Cell Distribution Width 14.3 % (11.5-14.5); Segmented Neutrophils % 73.2 %
[2016-11-04 06:13] LABS: Alanine Aminotransferase 45 Units/L (0-55); Albumin 3.1 g/dL (3.5-5.0); Albumin/Globulin Ratio 1.1 (1.1-2.2); Alkaline Phosphatase 59 Units/L (38-126); Aspartate Amino Transferase 105 Units/L (5-34); BUN/Creatinine Ratio 31 (6-26); Bilirubin,Total 0.5 mg/dL (0.2-1.2); Blood Urea Nitrogen 30 mg/dL (8-26); Calcium 8.7 mg/dL (8.6-10.8); Carbon Dioxide 24 mEq/L (19-29); Chloride 108 mEq/L (98-109); Globulin 2.8 g/dL (2.4-3.5); Glucose 135 mg/dL (70-99); Osmolality,Calculated 294 (280-300); Potassium 3.9 mEq/L (3.5-4.5); Sodium 138 mEq/L (136-145); Total Protein 5.9 g/dL (6.0-8.3); eGFR For African Americans > 60 (> 60); eGFR For Non-African Americans > 60 (> 60)
[2016-11-04] MEDS: Insulin LISPRO 300 UNITS/3 ML VIAL SQ SCH ×2 (07:42→12:10)
[2016-11-04] MEDS: *HR* Ticagrelor 90 MG TABLET PO SCH (08:16)
[2016-11-04] MEDS: amLODIPine 5 MG TABLET PO SCH (08:16)
[2016-11-04] MEDS: Aspirin Enteric Coated 81 MG Tablet PO SCH (08:16)
[2016-11-04] MEDS: Furosemide 40 MG TABLET PO SCH (08:16)
[2016-11-04] MEDS ORDERED: Isosorbide MONOnitrate (24 HR) 60 MG TAB.ER.24H PO SCH (09:00)
--- NOTE | 2016-11-04 10:26 | Cardiology Progress Note ---
Date of Encounter: 11/04/16 Time of Encounter: 09:00 Assessment and Plan (1) Acute [place] Current Visit: Yes Status: Acute -Troponin 0.05, >50, and >50. -[facility] yesterday revealed acute [place] was due to acute stent thrombosis of ostial RCA stent. Vessel subtotally occluded with large thrombus burden. Triple vessel disease. S/P CABG 2 of 2 patent bypass grafts. Successful PTCA/JATINDER in RCA. 4 JATINDER total. -Right femoral access site healing well. No bleeding or hematoma noted. Mild ecchymosis. Right groin site management education given to patient. Patient states understanding. -Recommend DAPT (ASA and Brilinta) uninterrupted x 1 year. Pt verbalizes understanding. -Reports shortness of breath has resolved. -Continue statin, beta fuentes, imdur, clara inhibitor. -Echo with LVEF 35-40%, mild diastolic dysfunction, normal RV size, probably mild reduction in function, no significant valvular dsyfunction, apex, apical inferior, mid inferior, apical anterior, mid anterior, basal anterior, apical lateral, mid anterior lateral, basal anterior lateral, mid inferior lateral, and basal inferior lateral mena hypokinetic. Basal inferior wall akinetic, apical septal, mid inferior septal, basal inferior spetal, mid anterior septal, and basal anterior septal mena dyskinetic. -Pt remains on heparin gtt. Will stop later today and resume Xarelto. -HGB dropped from 14.5 to 11.4. No evidence of active bleeding. Suspect secondary to dilutional and s/p prolonged cath procedure. Continue to monitor. -Renal function back to baseline, creatinine 0.98 today. -Patient denies chest pain. Cardiology will sign off and will follow in outpatient setting. Follow up set. Qualifiers: Myocardial infarction ST status: non-ST elevation myocardial infarction Qualified Code(s): I21.4 - Non-ST elevation (NSTEMI) myocardial infarction (2) DARLYN (acute kidney injury) Current Visit: Yes Status: Acute Per cardiology: -DARLYN with creatinine on admission 1.86. -Baseline 1-1.2. -Creatinine today 0.83. -Management per primary service. (3) Ischemic cardiomyopathy Current Visit: No Status: Chronic Per cardiology: -Known ischemic cardiomyopathy. -Echo 10/11/16 with LVEF 40%, mild concentric left ventricular hypertrophy, global left ventricular systolic dysfunction, no significant valvular dysfunction, all mena hypokinetic. -Echo this admission with LVEF 35-40%. -On beta fuentes and clara inhibitor. -Euvolemic on exam. -Will continue to monitor in outpatient setting. (4) CAD (coronary artery disease) Current Visit: Yes Status: Chronic Per cardiology: -Known CAD with CABG x2 2002 and subsequent PCI 10/04/16 and 11/02/16. -[facility] yesterday revealed acute [place] was due to acute stent thrombosis of ostial RCA stent. Vessel subtotally occluded with large thrombus burden. Triple vessel disease. S/P CABG 2 of 2 patent bypass grafts. Successful PTCA/JATINDER in RCA. 4 JATINDER total. -Recommend DAPT (ASA and Brilinta) uninterrupted x 1 year. Pt verbalizes understanding. -Continue statin, beta fuentes, imdur, clara inhibitor. -Echo as above. -Will continue to monitor in outpatient setting. Qualifiers: Coronary Disease-Associated Artery/Lesion type: unspecified vessel or lesion type [place] vs. transplanted heart: [place] heart Associated angina: angina presence unspecified Qualified Code(s): I25.10 - Atherosclerotic heart disease of [place] coronary artery without angina pectoris (5) HTN (hypertension) Current Visit: Yes Status: Chronic Per cardiology: -KNown HTN. -ON norvasc, coreg, and lisinopril. -BPs 120s systolic. -Will continue to monitor in outpatient setting. Qualifiers: Hypertension type: essential hypertension Qualified Code(s): I10 - Essential (primary) hypertension (6) Paroxysmal a-fib Current Visit: No Status: Chronic Per cardiology: -Known PAF. -ON beta fuentes and xarelto. -HRs 60s. -will continue to monitor in outpatient setting. Discussion w patient/family: The assessment and plan as outlined above was discussed with the patient who expressed understanding and agreement. All questions were answered. Thank you for involving us in the care of your patient. Please call with any questions. Discussed and reviewed with . Subjective Principal diagnosis: NSTEMI, CAD Interval history: Patient denies chest pain. States he feels good this morning, except for some tenderness at cath access site. Patient denies tingling that was reported last night during event note. Objective Vital Signs, Last 4 Hours Temp Pulse Resp BP Pulse Ox 11/04/16 07:56 64 18 95 11/04/16 07:20 97.9 F 67 12 125/74 97 General: Conversant, No Apparent Distress HEENT: Atraumatic, Normocephaly, Mucus Membranes Moist Neck: No JVD, Normal carotid pulses Cardiac: Reg Rate and Rhythm, Normal S1 and S2, No Murmur Lungs: Normal Breath Sounds, No Wheeze, Rales, Rhonchi Neuro: Alert and responsive, No focal deficits noted Abdomen: Soft, Non-Tender Skin: No rashes noted on visualized skin, Other (Right groin access site with mild ecchymosis, no hematoma. ) Musculoskeletal: No Chest Wall Tenderness Extremities: No Clubbing, No Cyanosis, No Edema, Normal Pulses Results 11/04/16 04:54 11/04/16 04:54 Lab Results Impressions Head CT 11/04/16 08:50 IMPRESSION: 1. No acute intracranial abnormality. 2. Moderate chronic small vessel ischemic changes. D/ / Suhail Dumont MD / Suhali Dumont MD Interpreting Provider: Suhail Dumont MD Active Medications Acetaminophen (Tylenol) 650 mg PO Q6H PRN PRN Reason: PAIN 1-4 Stop: 05/05/17 15:33 Last Admin: 11/03/16 15:57 Dose: 650 mg Amlodipine Besylate (Norvasc) 10 mg PO DAILY MACI PRN Reason: Protocol Stop: 05/04/17 09:01 Last Admin: 11/04/16 08:16 Dose: 10 mg Aspirin (Aspirin Ec) 81 mg PO DAILY MACI Stop: 05/04/17 09:01 Last Admin: 11/04/16 08:16 Dose: 81 mg Atorvastatin Calcium (Lipitor) 40 mg PO HS MACI Stop: 05/04/17 21:01 Last Admin: 11/03/16 20:33 Dose: 40 mg Carvedilol (Coreg) 3.125 mg PO BIDWM MACI PRN Reason: Protocol Stop: 05/04/17 08:01 Last Admin: 11/04/16 08:16 Dose: 3.125 mg Dextrose/Water (Dextrose 50% (Syg)) 25 ml IVP AD PRN PRN Reason: Hypoglycemia Stop: 05/03/17 23:00 Furosemide (Lasix) 40 mg PO DAILY [facility] Stop: 05/04/17 09:01 Last Admin: 11/04/16 08:16 Dose: 40 mg Glucagon (Glucagen) 1 mg IM ONCE PRN PRN Reason: Hypoglycemia Stop: 05/03/17 23:00 Glucose (Gluctose) 15 gm PO ONCE PRN PRN Reason: Hypoglycemia Stop: 05/03/17 23:00 Glucose (Gluctose) 30 gm PO ONCE PRN PRN Reason: Hypoglycemia Stop: 05/03/17 23:00 Heparin Sodium (Porcine) (Heparin) 4,000 unit IVP Q6HR PRN PRN Reason: SEE COMMENTS Stop: 05/03/17 21:26 Last Admin: 11/03/16 11:54 Dose: 4,000 unit Heparin Sodium (Porcine) (Heparin) 2,000 unit IVP Q6H PRN PRN Reason: SEE COMMENTS Stop: 05/03/17 21:26 Dextrose (Dextrose 5%) 1,000 mls @ 100 mls/hr IVC .Q10H PRN PRN Reason: HYPOGLYCEMIA Stop: 05/03/17 23:00 Insulin Human Lispro (Humalog) 0 units SQ HS MACI PRN Reason: Protocol Stop: 05/04/17 21:01 Last Admin: 11/03/16 20:34 Dose: 2 units Insulin Human Lispro (Humalog) 0 units SQ TIDAC MACI PRN Reason: Protocol Stop: 05/04/17 19:46 Last Admin: 11/04/16 07:42 Dose: Not Given Isosorbide Mononitrate (Imdur) 120 mg PO DAILY [facility] Stop: 05/06/17 09:01 Last Admin: 11/04/16 08:16 Dose: 120 mg Lisinopril (Zestril) 2.5 mg PO DAILY MACI PRN Reason: Protocol Stop: 05/04/17 09:01 Last Admin: 11/04/16 08:14 Dose: 2.5 mg Morphine Sulfate (Morphine Sulfate) 2 mg IV Q4H PRN PRN Reason: PAIN 5-10 Stop: 05/05/17 15:33 Last Admin: 11/04/16 05:25 Dose: 2 mg Naloxone HCl (Narcan) 0.4 mg IVP Q2MIN PRN PRN Reason: Opioid Reversal Stop: 05/03/17 22:58 Nitroglycerin (Nitroglycerin) 0.4 mg SL Q5MIN PRN PRN Reason: Chest Pain Stop: 05/03/17 20:59 Last Admin: 11/04/16 00:40 Dose: 0.4 mg Omeprazole (Prilosec) 20 mg PO BIDAC MACI Stop: 05/05/17 16:31 Last Admin: 11/04/16 08:16 Dose: 20 mg Ondansetron HCl (Zofran) 4 mg IVP Q8HR PRN PRN Reason: Nausea And Vomiting Stop: 05/03/17 22:58 Last Admin: 11/04/16 00:49 Dose: 4 mg Rivaroxaban (Xarelto) 15 mg PO 1700 [facility] Stop: 05/05/17 17:01 Last Admin: 11/03/16 17:19 Dose: 15 mg Ticagrelor (Brilinta) 90 mg PO BID MACI Stop: 05/05/17 09:01 Last Admin: 11/04/16 08:16 Dose: 90 mg Laboratory Tests 11/04/16 11/04/16 04:54 04:54 Hgb 11.4 L Creatinine 0.98 - Imaging and Cardiology Chest Xray: report reviewed Echo: report reviewed Cardiac cath: report reviewed - EKG Interpretation EKG results cardiology: other (Telemetry reviewed with average HR 66, intermittent pacing noted. PVCs noted.) Consult Discharge Plan - Plan Additional Instructions: pcp requested Referrals: John Lee, DARYA [Advanced Practice Nurse] - (CARDIOLOGY WILL CALL PATIENT AT HOME WITH AN APPOINTMENT) Lance Cronin MD [Partnered Physician] - 11/09/16 2:15 pm
[2016-11-04 11:42] VITALS: BP 109/65
--- NOTE | 2016-11-04 12:03 | Discharge Summary ---
Date of Encounter: 11/04/16 Time of Encounter: 08:10 - Discharge Diagnosis (1) NSTEMI (non-ST elevated myocardial infarction) Priority: Primary Status: Acute Comments: Non-ST elevation ID S/P [facility] (11/02/2016) - acute stent thrombosis of ostial RCA stent, vessel subtotally occluded with large thrombus, triple-vessel disease, 2 patent bypass grafts, successful PTCA/JATINDER placement in the RCA Echocardiogram - LVEF 35-40%, global LV systolic dysfunction with regional variations in inferior wall, mild diastolic dysfunction, atypical septal motion , normal RV size Continue Aspirin, statin, Brillinta, carvedilol, Lisinopril and Xarelto Follow-up with PCP and cardiology as outpatient (2) Congestive heart failure Priority: Primary Status: Chronic Comments: LVEF 35-40%, global LV systolic dysfunction, mild diastolic dysfunction, atypical septal motion, normal RV size Continue carvedilol, lisinopril, Lasix and Imdur Qualifiers: Congestive heart failure type: combined Congestive heart failure chronicity : chronic Qualified Code(s): I50.42 - Chronic combined systolic (congestive) and diastolic (congestive) heart failure (3) CAD (coronary artery disease) Priority: Secondary Status: Chronic Comments: History of coronary artery disease status post CABG 2 in 2002 [facility] 10/04/16 - severe three-vessel disease with patent bypass grafts Qualifiers: Coronary Disease-Associated Artery/Lesion type: unspecified vessel or lesion type [place] vs. transplanted heart: [place] heart Associated angina: angina presence unspecified Qualified Code(s): I25.10 - Atherosclerotic heart disease of [place] coronary artery without angina pectoris (4) HTN (hypertension) Priority: Secondary Status: Chronic Comments: Essential hypertension, controlled, continue current meds, monitor Qualifiers: Hypertension type: essential hypertension Qualified Code(s): I10 - Essential (primary) hypertension (5) HLD (hyperlipidemia) Priority: Secondary Status: Chronic Comments: Continue atorvastatin Qualifiers: Hyperlipidemia type: pure hypercholesterolemia Qualified Code(s): E78.00 - Pure hypercholesterolemia, unspecified; E78.0 - Pure hypercholesterolemia (6) DM2 (diabetes mellitus, type 2) Priority: Secondary Status: Chronic Comments: Diabetes mellitus type 2, [id number], hyperglycemia Start metformin Qualifiers: Diabetes mellitus complication status: with circulatory complication Diabetes mellitus complication detail: with other circulatory complications 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 mellitus 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 harvesting supervisor insulin use: without watermelon harvesting supervisor use Qualified Code( s): E11.59 - Type 2 diabetes mellitus with other circulatory complications - Discharge Medications Prescriptions: Atorvastatin [Lipitor] 40 mg PO HS #30 tablet Carvedilol [Coreg] 3.125 mg PO BIDWM 30 Days Isosorbide MONOnitrate (24 HR) [Imdur] 90 mg PO DAILY #30 Lisinopril [Zestril] 2.5 mg PO DAILY #30 tab metFORMIN [Glucophage] 500 mg PO BIDWM 30 Days Omeprazole [PriLOSEC] 20 mg PO BIDAC #60 Rivaroxaban [Xarelto] 15 mg PO 1700 #30 tab Ticagrelor [Brilinta] 90 mg PO BID 30 Days Home Medications: Aspirin Enteric Coated [Aspirin EC] 81 mg PO DAILY #30 tablet.dr 02/21/16 [Rx] Furosemide [Lasix] 40 mg PO DAILY #30 tablet 02/21/16 [Rx] Nitroglycerin [Nitrostat] 0.4 mg SL Q5M PRN 10/01/16 [History] amLODIPine [Norvasc] 10 mg PO DAILY #30 tab 10/05/16 [Rx] Atorvastatin [Lipitor] 40 mg PO HS #30 tablet 11/04/16 [Rx] Carvedilol [Coreg] 3.125 mg PO BIDWM 30 Days 11/04/16 [Rx] Isosorbide MONOnitrate (24 HR) [Imdur] 90 mg PO DAILY #30 11/04/16 [Rx] Lisinopril [Zestril] 2.5 mg PO DAILY #30 tab 11/04/16 [Rx] Omeprazole [PriLOSEC] 20 mg PO BIDAC #60 11/04/16 [Rx] Rivaroxaban [Xarelto] 15 mg PO 1700 #30 tab 11/04/16 [Rx] Ticagrelor [Brilinta] 90 mg PO BID 30 Days 11/04/16 [Rx] metFORMIN [Glucophage] 500 mg PO BIDWM 30 Days 11/04/16 [Rx] Allergies/Adverse Reactions: 3 Allergy/AdvReac Type Severity Reaction Status Date / Time Oxycodone [From Percocet] Allergy Hives Verified 10/19/16 17:21 tramadol Allergy Hives Verified 10/19/16 17:21 Procedures/tests Complete & Pending: Procedures Performed prior 72 hours Category Date Time Status CT head/brain wo con [CT] Stat Cat Scan 11/04/16 08:50 Completed ECG 12 lead ECG [ECG] Routine Y 11/02/16 05:46 Completed ECG 12 lead ECG [ECG] Stat Y 11/02/16 13:13 Completed EKG [ECG 12 lead ECG] [ECG] Stat Y 11/03/16 10:16 Completed EV echocardiogram Routine Y 11/03/16 09:00 Completed Date of admission: 11/02/16 11:59 Primary care physician: PCP NONE Anticipated date of discharge: 11/04/16 - Patient Status Disposition: Home Health Service Condition: Good Functional capacity at discharge: uses cane/walker Overall status at discharge: patient is progressing back to baseline - Discharge Instructions Instructions: Lisinopril (By mouth), Omeprazole (By mouth), Isosorbide Mononitrate (By mouth), Metformin (By mouth), Atorvastatin (By mouth), Carvedilol (By mouth), Ticagrelor (By mouth), Rivaroxaban (By mouth), Myocardial Infarction (DC), Heart Failure (DC), Chest Pain (DC), Left Heart Catheterization (DC), Pacemaker (DC), Safe Use of Anticoagulants (DC) Follow Up With: John Lee CNP [Advanced Practice Nurse] - (CARDIOLOGY WILL CALL PATIENT AT HOME WITH AN APPOINTMENT) Lance Cronin MD [Partnered Physician] - 11/09/16 2:15 pm Additional Instructions: pcp requested RISK FACTORS: EAT A LOW FAT/CHOLESTEROL/SODIUM DIET: This diet may help reduce your chances of having a heart attack. LIFTING: Avoid lifting anything more than 10 pounds for 5-7 days Prior to straining, laughing, sneezing and/or coughing, apply manual pressure directly over insertion site. ACTIVITY: You may walk or climb stairs as tolerated You can resume sexual activity as tolerated In general, you are encouraged to engage in a minimum of 30 minutes or more of moderate intensity physical activity, such as brisk walking, daily or at least 3 -4 times weekly BATHING Do not submerge the site into water (bath tub, hot tub, swimming pool) for 1 week. This can be a source for infection into the blood stream. You may shower after 24 hours SITE CARE: After 24 hours, you may remove the dressing and leave the site open to air. Keep the site clean and dry. Clean gently and pat dry. You can expect bruising and tenderness that gradually resolve within a week or two. Return to work as instructed per your physician Resume driving as instructed per physician Keep all scheduled follow up appointments Resume medications as instructed IMPORTANT: If prescribed a Platelet Aggregation Inhibitor such as, Plavix, Brilinta or Effient: Duration of therapy is minimum one year These medications are often used in combination with Aspirin in prevention of future heart attacks Never discontinue unless consult with your Film And Video Graphics Designer STROKE (CVA) Risk factors for a stroke are: Age, cigarette smoking, diabetes, excessive alcohol consumption, family history, high blood pressure, overweight, physical inactivity, prior stroke, heart attack, diagnosis of carotid artery stenosis or other artery disease. Warning signs: Sudden numbness or weakness of the face, arm or leg; especially on one side of the body, sudden confusion, trouble speaking or understanding, sudden trouble seeing in one or both eyes, sudden trouble walking, dizziness, loss of balance or coordination, sudden severe headache with no cause. Call 911 or go to the Emergency Room. CONGESTIVE HEART FAILURE: If you have been diagnosed with Congestive Heart Failure (CHF) and your symptoms return, make an appointment with your physician Weigh yourself daily. Notify your physician if you have a weight gain of two or more pounds in one day or five or more pounds in one week. If you experience any difficulty breathing, please call 911 BLEEDING: Although the risk of bleeding is minimal, it can happen. If you have any bleeding from the site, apply firm pressure above the puncture site for 10-15 minutes. If the bleeding does not stop, continue manual pressure and call 911 Contact your physician if: You develop a fever greater than 101 degrees Fahrenheit Your site becomes reddened or has any drainage You have an increase in pain or burning at the site or if a large knot forms at the site. If you experience chest pain, shortness of breath, dizziness, or extreme tiredness, stop the activity and rest. Please notify your physicians office if you experience any of these symptoms and they are not relieved by rest please call 911! - Diet and Activity Activity: increase activity as tolerated Diet: diabetic diet, low fat, low cholesterol Hospital course: Mr. Pizarro is a 75 year old male with past medical history of asthma, atrial fibrillation, coronary artery disease, CVA, diabetes, hypertension, thyroid disease, status post CABG and status post AICD. Patient presents to the ED with complaints of chest pain with pain radiating to left shoulder and left arm tingling. Patient does have a history of CHF with LVEF 40% and has a AICD. Patient had a recent left heart catheterization which shows 3 vessel severe coronary artery disease and he received drug-eluting stents to his RCA and PTCA and distal RCA. Patient was found to have elevated troponin which was trending upward. Cardiology evaluated the patient and recommended urgent left heart catheterization. Patient was continued on aspirin and statin. Left heart catheterization revealed triple-vessel disease and patent bypass grafts. Patient had a successful PTCA with drug-eluting stent placement in the RCA. Patient was started on Brillinta. He will be continued on Aspirin, Brillinta and Xarelto. Patient did have an episode of left-sided numbness and tingling with chest pain. CT of head was done and did not show any acute intracranial abnormality. MRI could not be done due to the presence of AICD. Patient does have CHF with LVEF 35-40%. He will be continued on carvedilol and lisinopril. Patient did not have any other acute events or complications during his stay in the hospital. Vision has been advised to be compliant with all his meds. He has been advised to follow up regularly with primary care physician and cardiology. Patient has been explained about dual antiplatelet therapy and also anticoagulation with Xarelto. Patient and family have been explained about bleeding risk with triple therapy. Patient and family members have been explained about his condition and plan of care in detail. They understood and agreed. No unanswered questions. Patient is being discharged to [facility]. He is being discharged in a stable condition. - Time Spent with Patient Total time spent providing and/or coordinating discharge services: Greater than 30 minutes - Constitutional Vitals: Temp Pulse Resp BP Pulse Ox 98.0 F 70 19 109/65 96 11/04/16 11:36 11/04/16 11:36 11/04/16 11:36 11/04/16 11:36 11/04/16 11:36 General appearance: Present: A&O X 3, pleasant, no acute distress, answers questions appropriately - Head Head exam: Present: atraumatic - Eye Eye exam: Present: EOMI - ENT ENT exam: Present: mucous membranes moist - Respiratory Respiratory exam: Present: CTAB. Absent: rales, rhonchi, wheezes, tachypnea - Cardiovascular Cardiovascular exam: Present: RRR, +S1, +S2 - GI/Abdominal GI/Abdominal exam: Present: soft. Absent: distended, firm, guarding, tenderness - Extremities Exam Extremities exam: Present: radial pulses palpable and symmetrical. Absent: cyanotic, pedal edema Additional comments: Right femoral cath site looks okay - stable pulses palpable - Neurological Exam Neurological exam: Present: alert, CN II-XII intact, oriented X3, no focal deficits. Absent: facial droop, speech deficit
--- NOTE | 2016-11-04 12:21 | Physician Discharge Referral ---
ExtendedCare Referral Info Provider in Charge after Transfer: PCP Institutional Level of Care: Skilled - Diagnosis (1) NSTEMI (non-ST elevated myocardial infarction) Priority: Primary Status: Acute (2) Congestive heart failure Priority: Primary Status: Chronic (3) CAD (coronary artery disease) Priority: Secondary Status: Chronic (4) HTN (hypertension) Priority: Secondary Status: Chronic (5) HLD (hyperlipidemia) Priority: Secondary Status: Chronic (6) DM2 (diabetes mellitus, type 2) Priority: Secondary Status: Chronic Prognosis: Good - Transfer Medications Prescriptions: Atorvastatin [Lipitor] 40 mg PO HS #30 tablet Carvedilol [Coreg] 3.125 mg PO BIDWM 30 Days Isosorbide MONOnitrate (24 HR) [Imdur] 90 mg PO DAILY #30 Lisinopril [Zestril] 2.5 mg PO DAILY #30 tab metFORMIN [Glucophage] 500 mg PO BIDWM 30 Days Omeprazole [PriLOSEC] 20 mg PO BIDAC #60 Rivaroxaban [Xarelto] 15 mg PO 1700 #30 tab Ticagrelor [Brilinta] 90 mg PO BID 30 Days Home Medications: Aspirin Enteric Coated [Aspirin EC] 81 mg PO DAILY #30 tablet.dr 02/21/16 [Rx] Furosemide [Lasix] 40 mg PO DAILY #30 tablet 02/21/16 [Rx] Nitroglycerin [Nitrostat] 0.4 mg SL Q5M PRN 10/01/16 [History] amLODIPine [Norvasc] 10 mg PO DAILY #30 tab 10/05/16 [Rx] Atorvastatin [Lipitor] 40 mg PO HS #30 tablet 11/04/16 [Rx] Carvedilol [Coreg] 3.125 mg PO BIDWM 30 Days 11/04/16 [Rx] Isosorbide MONOnitrate (24 HR) [Imdur] 90 mg PO DAILY #30 11/04/16 [Rx] Lisinopril [Zestril] 2.5 mg PO DAILY #30 tab 11/04/16 [Rx] Omeprazole [PriLOSEC] 20 mg PO BIDAC #60 11/04/16 [Rx] Rivaroxaban [Xarelto] 15 mg PO 1700 #30 tab 11/04/16 [Rx] Ticagrelor [Brilinta] 90 mg PO BID 30 Days 11/04/16 [Rx] metFORMIN [Glucophage] 500 mg PO BIDWM 30 Days 11/04/16 [Rx] Allergies/Adverse Reactions: 3 Allergy/AdvReac Type Severity Reaction Status Date / Time Oxycodone [From Percocet] Allergy Hives Verified 10/19/16 17:21 tramadol Allergy Hives Verified 10/19/16 17:21 - Respiratory Orders Smoking Cessation: Smoking cessation has been advised. For more information, call the [employer] Tobacco Quit Line at 8-236-PFQK-NOW. - Lab Orders Lab Orders: CBC - Ancillary Orders May use pressure relief devices daily prn - Advance Directives Code Status: Full Code - Mobility Orders Ambulate - Rehabiliation Orders Rehab Orders: ROM Exercises, Evaluation for Physical Therapy, Evaluation for Occupational Therapy - Treatments Skin tear care topically daily PRN per policy - Diet Orders Cardiac CERTIFICATION: I certify that the transfer of the above named patient to an Extended Care Facility is necessary for the continuing treatment of the diagnosis listed. The above information is true and accurate reflection of patient's current condition. Confidential - Redisclosure prohibited without a patient's written consent.
== END 2016-11-04 16:15 | disposition home health service (06) | DRG 246 ==
LOC: 2NENU 19:09 → EMEROO 19:09 → 2NENU 22:28 → 2NNU 11-02 10:11
PROVIDERS: ADMIT Internal Medicine; ATTEND Internal Medicine

== ENCOUNTER 2016-11-05 04:12 | Inpatient (IN) ==
--- NOTE | 2016-11-05 04:41 | Emergency Department Note ---
Disposition Clinical Impression: Chest pain Qualifiers: Chest pain type: unspecified Qualified Code(s): R07.9 - Chest pain, unspecified Disposition: Admitted As Inpatient Condition: Fair Time of Disposition: 07:19 General Adult HPI - General Chief complaint: ED Chest Pain Stated complaint: chest pain Time Seen by Provider: 11/05/16 04:20 Source: patient, EMS Limitations: no limitations Nursing Notes Reviewed: Yes Vital Signs Reviewed: Yes - History of Present Illness HPI Narrative: Patient complaining of left-sided chest pain that woke him up from sleep. Has not had a recent catheter with 4 stents placed. Initial chest pain was 7 out of 10. Has been taking his medication as prescribed. Denies shortness of breath nausea vomiting or diarrhea. No associated symptoms. Pain Scale: 6 - Related Data Home Medications Medication Instructions Recorded Confirmed Nitroglycerin [Nitrostat] 0.4 mg SL Q5M PRN 10/01/16 11/05/16 Previous Rx's Medication Instructions Recorded Aspirin Enteric Coated [Aspirin EC] 81 mg PO DAILY #30 tablet. 02/21/16 Furosemide [Lasix] 40 mg PO DAILY #30 tablet 02/21/16 amLODIPine [Norvasc] 10 mg PO DAILY #30 tab 10/05/16 Atorvastatin [Lipitor] 40 mg PO HS #30 tablet 11/04/16 Carvedilol [Coreg] 3.125 mg PO BIDWM 30 Days 11/04/16 Isosorbide MONOnitrate (24 HR) 90 mg PO DAILY #30 11/04/16 [Imdur] Lisinopril [Zestril] 2.5 mg PO DAILY #30 tab 11/04/16 Omeprazole [PriLOSEC] 20 mg PO BIDAC #60 11/04/16 Rivaroxaban [Xarelto] 15 mg PO 1700 #30 tab 11/04/16 Ticagrelor [Brilinta] 90 mg PO BID 30 Days 11/04/16 metFORMIN [Glucophage] 500 mg PO BIDWM 30 Days 11/04/16 Allergies Allergy/AdvReac Type Severity Reaction Status Date / Time Oxycodone [From Percocet] Allergy Hives Verified 10/19/16 17:21 tramadol Allergy Hives Verified 10/19/16 17:21 All systems ED: reviewed and negative except as stated. Constitutional: Denies: fever, chills ENT ED: Denies: congestion Cardiovascular: Reports: chest pain. Denies: palpitations, syncope Respiratory: Denies: cough, dyspnea Gastrointestinal: Denies: abdominal pain, nausea, vomiting, diarrhea, hematemesis, melena, hematochezia Genitourinary: Denies: urgency, dysuria, frequency, hematuria Musculoskeletal: Denies: back pain, neck pain Integumentary: Denies: rash, abrasion Neurological: Denies: headache, weakness, numbness, paresthesias Past Medical History - Past Medical History Attestation: Yes The following information was validated with the patient. Source: patient Medical history: Reports: asthma, atrial fibrillation, coronary artery disease, CVA, diabetes, hypertension, myocardial infarction, thyroid disease Surgical history: Reports: cholecystectomy, coronary bypass (CABG), pacemaker/ AICD Psychiatric history: Reports: no psych history - Social History Smoking Status: Former smoker Smokeless Tobacco Status: No Alcohol use: Reports: none Drug use: Reports: none Physical Exam - General Limitations: no limitations General appearance: alert, in no apparent distress - Head Head exam: atraumatic, normocephalic, normal inspection - Eye Eye exam: Present: normal appearance, PERRL, EOMI. Absent: scleral icterus - ENT ENT exam: normal exam, normal oropharynx, mucous membranes moist - Neck Neck exam: Present: normal inspection, full ROM, trachea midline - Chest Chest inspection: Present: normal inspection, symmetric chest wall rise - Respiratory Respiratory exam: Present: normal lung sounds bilaterally. Absent: respiratory distress - Cardiovascular Cardiovascular exam: Present: regular rate, normal rhythm, normal heart sounds - Abdominal Exam Abdominal exam: Present: soft, Non-Tender, normal bowel sounds - Extremities Exam Extremities exam: Present: normal inspection, full ROM, normal capillary refill. Absent: tenderness, pedal edema - Back Exam Back exam: Present: normal inspection, full ROM. Absent: tenderness - Neurological Exam Neurological exam: Present: alert, oriented X3 - Psychiatric Psychiatric exam: Present: normal affect, normal mood - Skin Skin exam: Present: warm, dry, intact, normal color Course Course Narrative: Male patient well known to this facility presenting to the emergency department complaining of left-sided chest pain. He was recently released yesterday after having 4 stents placed in his heart. He states that he started having left- sided chest pain that awoke him from sleep this morning. He denies any shortness of breath associated with this. He describes the pain as a burning sensation to the left side of his chest. While he is here he states the pain initially was a 7 but has decreased to a 2 out of 10 at this time. Patient's lung sounds are clear heart tones are normal. He is also complaining of right groin pain. He does have a small area of ecchymosis to the right groin most likely from where they introduce the cardiac catheter. He does appear to be healing appropriately. There is no swelling or signs of infection to this area. He is paced on the EKG at this time. His lab workup is unremarkable with the exception of a troponin of 31. 2 days ago it was greater than 50. Troponin is decreasing however with patient's recent catheter and his chest pain that awoke him from his sleep feels is very concerning. We will admit patient to the hospital for his chest pain and ACS. No we did not give patient aspirin because he has been taking Brilinta. Vital Signs Respiratory Rate 0 11/05/16 04:14 Blood Pressure 0/0 11/05/16 04:14 Temperature 98.6 F 11/05/16 04:16 Pulse Rate 63 11/05/16 06:20 Respiratory Rate 0 11/05/16 06:38 Blood Pressure 0/0 11/05/16 06:38 O2 Sat by Pulse Oximetry 100 11/05/16 06:20 Oxygen Delivery Oxygen Delivery Nasal Cannula Medical Decision Making - Medical Records Medical records reviewed: Yes I reviewed the patient's medical records. - Lab Data Lab results reviewed: Yes I reviewed the patient's lab results. Result diagrams: 11/05/16 04:20 11/05/16 04:20 Lab Results 11/05/16 11/05/16 11/05/16 Range/Units 04:20 04:20 04:20 WBC 9.9 (4.3-11.1) K/mcL RBC 4.51 (4.19-5.50) M/mcL Hgb 12.8 L (12.9-16.9) g/dL Hct 38.9 (37.5-50.1) % MCV 86.3 (83.0-100.0) fL MCH 28.4 (28.0-33.3) pg MCHC 32.9 (31.6-35.5) g/dL RDW 14.1 (11.5-14.5) % Plt Count 133 L (140-400) K/mcL MPV 11.6 (9.4-12.4) fL Immature Gran % 0.5 (0-4) % Seg Neutrophils % 65.7 % Lymphocytes % 21.8 % Monocytes % 9.3 % Eosinophils % 2.2 % Basophils % 0.5 % Neutrophils # 6.5 (1.6-8.9) K/mcL Lymphocytes # 2.2 (0.6-4.6) K/mcL Monocytes # 0.9 (0.0-1.3) K/mcL Eosinophils # 0.2 (0.0-0.6) K/mcL Basophils # 0.1 (0.0-0.2) K/mcL PT 11.5 (9.4-12.1) Seconds INR 1.1 APTT 28.4 D (26.0-36.0) Seconds Sodium 141 (136-145) mEq/L Potassium 3.6 (3.5-4.5) mEq/L Chloride 108 (98-109) mEq/L Carbon Dioxide 24 (19-29) mEq/L BUN 28 H (8-26) mg/dL Creatinine 1.10 (0.72-1.25) mg/dL Est GFR ( Amer) > 60 (> 60) Est GFR (Non-Af Amer) > 60 (> 60) BUN/Creatinine Ratio 25 (6-26) Glucose 132 H (70-99) mg/dL Calculated Osmolality 299 (280-300) Calcium 9.6 (8.6-10.8) mg/dL Troponin I (0-0.03) ng/mL 11/05/16 Range/Units 04:20 WBC (4.3-11.1) K/mcL RBC (4.19-5.50) M/mcL Hgb (12.9-16.9) g/dL Hct (37.5-50.1) % MCV (83.0-100.0) fL MCH (28.0-33.3) pg MCHC (31.6-35.5) g/dL RDW (11.5-14.5) % Plt Count (140-400) K/mcL MPV (9.4-12.4) fL Immature Gran % (0-4) % Seg Neutrophils % % Lymphocytes % % Monocytes % % Eosinophils % % Basophils % % Neutrophils # (1.6-8.9) K/mcL Lymphocytes # (0.6-4.6) K/mcL Monocytes # (0.0-1.3) K/mcL Eosinophils # (0.0-0.6) K/mcL Basophils # (0.0-0.2) K/mcL PT (9.4-12.1) Seconds INR APTT (26.0-36.0) Seconds Sodium (136-145) mEq/L Potassium (3.5-4.5) mEq/L Chloride (98-109) mEq/L Carbon Dioxide (19-29) mEq/L BUN (8-26) mg/dL Creatinine (0.72-1.25) mg/dL Est GFR ( Amer) (> 60) Est GFR (Non-Af Amer) (> 60) BUN/Creatinine Ratio (6-26) Glucose (70-99) mg/dL Calculated Osmolality (280-300) Calcium (8.6-10.8) mg/dL Troponin I 31.50 H* (0-0.03) ng/mL - Radiology Data Radiology results reviewed: Yes I reviewed the patient's radiology results. Chest X-Ray 11/05/16 04:40 IMPRESSION: No evidence of acute cardiopulmonary disease per D/ / Julio Miranda MD / Julio Miranda MD Interpreting Provider: Julio Miranda MD - EKG Data EKG #1 EKG attestation: Yes I reviewed and interpreted this EKG. EKG results narrative: Atrially and ventricularly paced rhythm at a rate of 68. [place] interval is 150. Your jew is 26. QT is 513. QTC is 5:30. No signs of acute ischemia. No change in previous EKG dated October 192016. Attestation Statement - Attestation Attestation: I, Alejandro Velásquez MD, personally evaluated this patient and discussed their management with the resident physician. I reviewed the resident's note and agree with the documented findings, medical decision making, and plan of care. 75-year-old male presents to the emergency department with a complaint that he awoke from sleep early this morning with left-sided chest pain. No radiation of the pain. Some mild shortness of breath. Patient was just admitted a few days ago for an acute [place] and had a cardiac catheter and multiple coronary artery stents placed. He was just discharged from the hospital yesterday. On examination patient is a well-developed well-nourished elderly male in no acute distress. He is alert and oriented 3. There is no cyanosis or diaphoresis. Chest is nontender to palpation. Breath sounds are clear and equal bilaterally. Heart regular rate and rhythm. Abdomen soft and nontender with normal bowel sounds. EKG shows a totally paced rhythm. Chest x-ray negative. Labs reviewed. Significantly elevated troponin. The hospitalist, Dr. Santillan, was consulted and accepted the admission of the patient.
[2016-11-05 04:54] LABS: Basophils # 0.1 K/mcL (0.0-0.2); Basophils % 0.5 %; Eosinophils # 0.2 K/mcL (0.0-0.6); Eosinophils % 2.2 %; Hematocrit 38.9 % (37.5-50.1); Hemoglobin 12.8 g/dL (12.9-16.9); Immature Granulocytes % 0.5 % (0-4); Lymphocytes # 2.2 K/mcL (0.6-4.6); Lymphocytes % 21.8 %; Mean Corpuscular HGB Conc 32.9 g/dL (31.6-35.5); Mean Corpuscular Hemoglobin 28.4 pg (28.0-33.3); Mean Corpuscular Volume 86.3 fL (83.0-100.0); Mean Platelet Volume 11.6 fL (9.4-12.4); Monocytes # 0.9 K/mcL (0.0-1.3); Monocytes % 9.3 %; Neutrophils # 6.5 K/mcL (1.6-8.9); Platelet Count 133 K/mcL (140-400); Red Blood Count 4.51 M/mcL (4.19-5.50); Red Cell Distribution Width 14.1 % (11.5-14.5); Segmented Neutrophils % 65.7 %
[2016-11-05 04:55] LABS: INR 1.1; Prothrombin Time 11.5 Seconds (9.4-12.1)
[2016-11-05 05:01] LABS: Activated Partial Thrombo Time 28.4 Seconds (26.0-36.0)
[2016-11-05 05:03] LABS: BUN/Creatinine Ratio 25 (6-26); Blood Urea Nitrogen 28 mg/dL (8-26); Calcium 9.6 mg/dL (8.6-10.8); Carbon Dioxide 24 mEq/L (19-29); Chloride 108 mEq/L (98-109); Glucose 132 mg/dL (70-99); Osmolality,Calculated 299 (280-300); Potassium 3.6 mEq/L (3.5-4.5); Sodium 141 mEq/L (136-145); eGFR For African Americans > 60 (> 60); eGFR For Non-African Americans > 60 (> 60)
[2016-11-05] MEDS ORDERED: Aspirin 81 MG TAB.CHEW PO STA (05:58)
[2016-11-05] MEDS ORDERED: Nitroglycerin 1 INCH/GM PACKET TP ONE (08:05)
[2016-11-05] MEDS ORDERED: Naloxone 0.4 MG/ML INJ IVP PRN (09:18)
[2016-11-05] MEDS ORDERED: Acetaminophen 325 MG TABLET PO PRN (09:18)
[2016-11-05] MEDS ORDERED: Dextrose Gel 15 GM PO PRN ×2 (09:25)
[2016-11-05] MEDS ORDERED: *HR* Dextrose 50 % in Water (Syg) 50 ML SYRINGE IVP PRN (09:25)
[2016-11-05] MEDS ORDERED: D5% in Water 1,000 ML IVC PRN (09:25)
[2016-11-05] MEDS: Aspirin Enteric Coated 81 MG Tablet PO SCH (10:09)
[2016-11-05] MEDS: amLODIPine 5 MG TABLET PO SCH (10:09)
[2016-11-05] MEDS: *HR* Ticagrelor 90 MG TABLET PO SCH ×2 (10:09→21:25)
--- NOTE | 2016-11-05 10:19 | Internal Med History&Physical ---
Date of Encounter: 11/05/16 Time of Encounter: 08:00 Assessment and Plan (1) Chest pain Current visit: No Status: Acute Patient has known CAD s/p [facility] on 11/02. Recurrent chest pain probably from heart etiology. - Closer monitor patient with continuous cardiac monitoring. - Patient has a recent NSTEMI, troponin is trending down but still high. We will check 3 sets of troponin to see the trend. - Continue current medical treatment with DAPT, beta fuentes, statin, and nitrate. Add nitroglycerin patch to control chest pain. - Cardiology consult for further management/medication adjustment. Qualifiers: Chest pain type: precordial pain Qualified Code(s): R07.2 - Precordial pain (2) IDDM (insulin dependent diabetes mellitus) Current visit: No Status: Chronic Place patient on sliding scale. Diabetic diet. Follow-up glucose level. (3) CAD (coronary artery disease) Current visit: No Status: Chronic Management as above. Cardio consult Qualifiers: Coronary Disease-Associated Artery/Lesion type: unspecified vessel or lesion type [place] vs. transplanted heart: [place] heart Associated angina: angina presence unspecified Qualified Code(s): I25.10 - Atherosclerotic heart disease of [place] coronary artery without angina pectoris (4) HTN (hypertension) Current visit: No Status: Chronic Continue home medication. Close monitor blood pressure Qualifiers: Hypertension type: essential hypertension Qualified Code(s): I10 - Essential (primary) hypertension (5) HLD (hyperlipidemia) Current visit: No Status: Chronic Continue statin Qualifiers: Hyperlipidemia type: pure hypercholesterolemia Qualified Code(s): E78.00 - Pure hypercholesterolemia, unspecified; E78.0 - Pure hypercholesterolemia (6) DVT prophylaxis Current visit: No Status: Acute Patient is on xalrento (7) Congestive heart failure Current visit: No Status: Chronic Echo shows LVEF of 35-40%. Continue Lasix, beta fuentes, and TEE inhibitor. Appears euvolemic now. Qualifiers: Congestive heart failure type: systolic Congestive heart failure chronicity : chronic Qualified Code(s): I50.22 - Chronic systolic (congestive) heart failure (8) Elevated troponin Current visit: No Status: Acute Trend down from previous NSTEMI. Will track 3 sets of troponin (9) Paroxysmal a-fib Current visit: No Status: Chronic Heart rate is well controlled. On xarelto (10) Abdominal pain Current visit: Yes Status: Acute Mild right-sided abdominal pain on LHC puncture site. Abdominal CT has been done, no retroperitoneal hematoma. Qualifiers: Abdominal location: right lower quadrant Qualified Code(s): R10.31 - Right lower quadrant pain Internal Medicine - H&P: HPI Chief complaint: Chest pain Admitted From: Home Plans for Post Hospital Care: Home History of present illness: Mr. Pizarro is a 75 year old male is well known to us with a history of diabetes, hypertension, CAD S/P stent 3 days ago, ischemic cardiomyopathy with systolic CHF, paroxysmal A. fib on xarelto, present to ER for chest pain. Patient said pain started 3 AM this morning and wakes him up from sleep. Pain is located on the mid chest, radiated to left arm and back. Pain is responding to nitroglycerin. Patient totally has 3 episodes of chest pain, lasts about 30 minutes for each episode. Patient has nausea and vomiting and diaphoresis. With mild shortness of breath. Patient was admitted for further management. I discussed CODE STATUS with patient. He is full code. Past Med Surg Social Fam HX - Past Medical History Medical history: asthma, atrial fibrillation, coronary artery disease, CVA, diabetes, hypertension, myocardial infarction, thyroid disease Psychiatric history: no psych history - Past Surgical History Surgical History: cholecystectomy, coronary bypass (CABG), pacemaker/AICD - Social History Smoking Status: Former smoker Smokeless Tobacco Status: No Alcohol use: none Drug use: none - Family History Grandfather Living Status: Hx Family Cardiac Disorders: Yes Mother Living Status: Hx Family Neurologic Disorders: Yes (CVA) Father Adopted: No Living Status: Hx Family Cardiac Disorders: No Hx Family Respiratory Disorders: No Hx Family Cancer: Yes Hx Family GI Disorders: No Hx Family Endocrine Disorder: No Hx Family Neuromuscular Disorders: No Hx Family Neurologic Disorders: No Hx Family HEENT Disorders: No Hx Family Autoimmune Disorders: No Internal Medicine - H&P: Meds Aspirin Enteric Coated [Aspirin EC] 81 mg PO DAILY #30 tablet. 02/21/16 [Rx] Furosemide [Lasix] 40 mg PO DAILY #30 tablet 02/21/16 [Rx] Nitroglycerin [Nitrostat] 0.4 mg SL Q5M PRN 10/01/16 [History] amLODIPine [Norvasc] 10 mg PO DAILY #30 tab 10/05/16 [Rx] Atorvastatin [Lipitor] 40 mg PO HS #30 tablet 11/04/16 [Rx] Carvedilol [Coreg] 3.125 mg PO BIDWM 30 Days 11/04/16 [Rx] Isosorbide MONOnitrate (24 HR) [Imdur] 90 mg PO DAILY #30 11/04/16 [Rx] Lisinopril [Zestril] 2.5 mg PO DAILY #30 tab 11/04/16 [Rx] Omeprazole [PriLOSEC] 20 mg PO BIDAC #60 11/04/16 [Rx] Rivaroxaban [Xarelto] 15 mg PO 1700 #30 tab 11/04/16 [Rx] Ticagrelor [Brilinta] 90 mg PO BID 30 Days 11/04/16 [Rx] metFORMIN [Glucophage] 500 mg PO BIDWM 30 Days 11/04/16 [Rx] 3 Allergy/AdvReac Type Severity Reaction Status Date / Time Oxycodone [From Percocet] Allergy Hives Verified 10/19/16 17:21 tramadol Allergy Hives Verified 10/19/16 17:21 All Systems PM: A 10-system review of systems was performed and is negative for pertinent findings except as documented above in the HPI. - Constitutional Vitals: Temp Pulse Resp BP Pulse Ox 97.8 F 64 16 150/93 98 11/05/16 08:09 11/05/16 08:09 11/05/16 08:09 11/05/16 08:09 11/05/16 08:09 General appearance: Present: mild distress, A&O X 3, answers questions appropriately - Head Head exam: Present: atraumatic, normocephalic - Eye Eye exam: Present: PERRL, conjuntiva pink, sclera anicteric Pupils: Present: PERRL - Neck Neck exam general surgery: Present: supple, trachea midline. Absent: lymphadenopathy - Respiratory Respiratory exam: Present: CTAB. Absent: accessory muscle use, rales, rhonchi, wheezes - Cardiovascular Cardiovascular exam: Present: RRR, +S1, +S2. Absent: diastolic murmur, gallop, rubs, systolic murmur - GI/Abdominal GI/Abdominal exam: Present: normal bowel sounds, soft, tenderness (RLQ tenderness, without guarding or rebound), no peritoneal signs. Absent: distended - Extremities Exam Extremities exam: Present: warm, radial pulses palpable and symmetrical. Absent : calf tenderness, cyanotic, pedal edema - Neurological Exam Neurological exam: Present: CN II-XII intact, oriented X3, no focal deficits. Absent: pronater drift, facial droop, speech deficit - Skin Skin exam: Present: dry, intact Internal Med - H&P Results - Labs CBC & Chem 7: 11/05/16 04:20 11/05/16 04:20 Labs: Cardiac Enzymes 11/05/16 Range/Units 09:37 Troponin I 28.25 H* (0-0.03) ng/mL - EKG Data -: EKG Interpreted by Myself (Pacing rhythm) - Impressions ITS Impressions Abdomen CT 11/05/16 08:45 IMPRESSION: No acute abnormality in the abdomen D/ / Suhail Dumont MD / Suhail Dumont MD Interpreting Provider: Suhail Dumont MD
--- NOTE | 2016-11-05 12:55 | Cardiology Consult Note ---
Date of Encounter: 11/05/16 Time of Encounter: 09:45 Assessment and Plan (1) Chest pain Current Visit: No Status: Acute Per cardiology: -Patient with recent acute CA. -Presented to [facility] with complaints of chest pain that occured at rest. -States pain similar to recent CA. -NO ECG changes. -Troponins down trending from CA. -On imdur. -Current chest pain free. -Will increase imdur. Qualifiers: Chest pain type: other chest pain Qualified Code(s): R07.89 - Other chest pain; R07.8 - Other chest pain (2) Elevated troponin Current Visit: No Status: Acute Per cardiology: -Troponins this admission noted to be 31.5 and 28.25. -Troponins during acute CA great than 50 on 11/02/16. -ECG unchanged. -Denies current chest pain -[facility] 11/02/16 revealed acute CA was due to acute stent thrombosis of ostial RCA stent. Vessel subtotally occluded with large thrombus burden. Triple vessel disease. S/P CABG 2 of 2 patent bypass grafts. Successful PTCA/JATINDER in RCA. 4 JATINDER total. -Right femoral access site healing well. No bleeding or hematoma noted. Mild ecchymosis. Right groin site management education given to patient. Patient states understanding. -Recommend DAPT (ASA and Brilinta) uninterrupted x 1 year. Pt verbalizes understanding. -Denies shortness of breath. -Continue statin, beta fuentes, imdur, clara inhibitor. -Echo with LVEF 35-40%, mild diastolic dysfunction, normal RV size, probably mild reduction in function, no significant valvular dsyfunction, apex, apical inferior, mid inferior, apical anterior, mid anterior, basal anterior, apical lateral, mid anterior lateral, basal anterior lateral, mid inferior lateral, and basal inferior lateral mena hypokinetic. Basal inferior wall akinetic, apical septal, mid inferior septal, basal inferior spetal, mid anterior septal, and basal anterior septal mena dyskinetic. -DO not suspect NSTEMI, suspect troponins continuing to down trend from recent CA. No cardiac rehab consult warranted for this admission, was consulted during last admission. -Third troponin to be drawn around 1500. -If third troponin continues to down trend, cardiology will sign off. FOllow up has already been set. Discussion w patient/family: The assessment and plan as outlined above was discussed with the patient who expressed understanding and agreement. All questions were answered. Thank you for involving us in the care of your patient. Please call with any questions. Discussed and reviewed with . History of Present Illness Consult date: 11/05/16 Requesting physician: Jamie De La Cruz Consult reason: chest pain Chief complaint: chest pain History of present illness: Mr. Pizarro is a 75 year old male with a relevant past medical history of CAD with CABG x2 2002, s/p PCI RCA, HTN, PPM, PAF, CVA, hyperlipidemia, hard of hearing, and GERD. Patient presents for chest pain. Patient was discharged yesterday after NSTEMI. Patient states he went to bed and was woken up at 1am with mid sternal chest burning. Patient states this pain was similar to pain he has with recent CA. Patient denies aggravating factors. Patient states pain was relieved with nitro paste. Patient denies current chest pain. Patient denies shortness of breath. Patient denies issues walking. Past Med Surg Social Fam HX - Past Medical History Attestation: Yes The following information was validated with the patient. Source: patient, old records reviewed Medical history: asthma, atrial fibrillation, coronary artery disease, CVA, diabetes, hypertension, myocardial infarction, thyroid disease Psychiatric history: no psych history - Past Surgical History Surgical History: cholecystectomy, coronary bypass (CABG), pacemaker/AICD - Social History Smoking Status: Former smoker Smokeless Tobacco Status: No Alcohol use: none Drug use: none - Family History Grandfather Living Status: Hx Family Cardiac Disorders: Yes Mother Living Status: Hx Family Neurologic Disorders: Yes (CVA) Father Adopted: No Living Status: Hx Family Cardiac Disorders: No Hx Family Respiratory Disorders: No Hx Family Cancer: Yes Hx Family GI Disorders: No Hx Family Endocrine Disorder: No Hx Family Neuromuscular Disorders: No Hx Family Neurologic Disorders: No Hx Family HEENT Disorders: No Hx Family Autoimmune Disorders: No Medications and Allergies Aspirin Enteric Coated [Aspirin EC] 81 mg PO DAILY #30 tablet. 02/21/16 [Rx] Furosemide [Lasix] 40 mg PO DAILY #30 tablet 02/21/16 [Rx] Nitroglycerin [Nitrostat] 0.4 mg SL Q5M PRN 10/01/16 [History] amLODIPine [Norvasc] 10 mg PO DAILY #30 tab 10/05/16 [Rx] Atorvastatin [Lipitor] 40 mg PO HS #30 tablet 11/04/16 [Rx] Carvedilol [Coreg] 3.125 mg PO BIDWM 30 Days 11/04/16 [Rx] Isosorbide MONOnitrate (24 HR) [Imdur] 90 mg PO DAILY #30 11/04/16 [Rx] Lisinopril [Zestril] 2.5 mg PO DAILY #30 tab 11/04/16 [Rx] Omeprazole [PriLOSEC] 20 mg PO BIDAC #60 11/04/16 [Rx] Rivaroxaban [Xarelto] 15 mg PO 1700 #30 tab 11/04/16 [Rx] Ticagrelor [Brilinta] 90 mg PO BID 30 Days 11/04/16 [Rx] metFORMIN [Glucophage] 500 mg PO BIDWM 30 Days 11/04/16 [Rx] 3 Allergy/AdvReac Type Severity Reaction Status Date / Time Oxycodone [From Percocet] Allergy Hives Verified 10/19/16 17:21 tramadol Allergy Hives Verified 10/19/16 17:21 All Systems Review: A 10-system review of systems was performed and is negative for pertinent findings except as documented above in the HPI. - Cardiovascular Cardiovascular: as per HPI, chest pain at rest Physical Examination Vital Signs, Last 4 Hours Resp BP Pulse Ox 11/05/16 10:13 16 142/96 99 11/05/16 09:55 99 General: Conversant, No Apparent Distress HEENT: Atraumatic, Normocephaly, Mucus Membranes Moist Neck: No JVD, Normal carotid pulses Cardiac: Reg Rate and Rhythm, Normal S1 and S2, No Murmur Lungs: Normal Breath Sounds, No Wheeze, Rales, Rhonchi Neuro: Alert and responsive, No focal deficits noted Abdomen: Soft, Non-Tender Skin: No rashes noted on visualized skin, Other (Right groin access site without hematoma. Mild ecchymosis noted. ) Musculoskeletal: No Chest Wall Tenderness Extremities: No Clubbing, No Cyanosis, No Edema, Normal Pulses Results 11/05/16 04:20 11/05/16 04:20 Lab Results Impressions Chest X-Ray 11/05/16 04:40 IMPRESSION: No evidence of acute cardiopulmonary disease. D/ / 11/05/2016 07:21:49 Julio Miranda MD / kings[place] Interpreting Provider: Julio Miranda MD Abdomen CT 11/05/16 08:45 IMPRESSION: No acute abnormality in the abdomen D/ / Suhail Dumont MD / Suhail Dumont MD Interpreting Provider: Suhail Dumont MD Active Medications Acetaminophen (Tylenol) 650 mg PO Q6HR PRN PRN Reason: Mild Pain (1-3) Stop: 05/07/17 09:19 Amlodipine Besylate (Norvasc) 10 mg PO DAILY MACI PRN Reason: Protocol Stop: 05/07/17 09:31 Last Admin: 11/05/16 10:09 Dose: 10 mg Aspirin (Aspirin Ec) 81 mg PO DAILY MACI Stop: 05/07/17 09:31 Last Admin: 11/05/16 10:09 Dose: 81 mg Atorvastatin Calcium (Lipitor) 40 mg PO HS [facility] Stop: 05/07/17 21:01 Carvedilol (Coreg) 3.125 mg PO BIDWM MACI PRN Reason: Protocol Stop: 05/07/17 17:01 Dextrose/Water (Dextrose 50% (Syg)) 25 ml IVP AD PRN PRN Reason: Hypoglycemia Stop: 05/07/17 09:26 Furosemide (Lasix) 40 mg PO DAILY MACI Stop: 05/08/17 09:01 Glucagon (Glucagen) 1 mg IM ONCE PRN PRN Reason: Hypoglycemia Stop: 05/07/17 09:26 Glucose (Gluctose) 15 gm PO ONCE PRN PRN Reason: Hypoglycemia Stop: 05/07/17 09:26 Glucose (Gluctose) 30 gm PO ONCE PRN PRN Reason: Hypoglycemia Stop: 05/07/17 09:26 Dextrose (Dextrose 5%) 1,000 mls @ 100 mls/hr IVC .Q10H PRN PRN Reason: HYPOGLYCEMIA Stop: 05/07/17 09:26 Insulin Human Lispro (Humalog) 0 units SQ HS [facility] PRN Reason: Protocol Stop: 05/07/17 21:01 Insulin Human Lispro (Humalog) 0 units SQ TIDAC MACI PRN Reason: Protocol Stop: 05/07/17 11:31 Isosorbide Mononitrate (Imdur) 90 mg PO DAILY [facility] Stop: 05/08/17 09:01 Lisinopril (Zestril) 2.5 mg PO DAILY MACI PRN Reason: Protocol Stop: 05/08/17 09:01 Naloxone HCl (Narcan) 0.4 mg IVP Q2MIN PRN PRN Reason: Opioid Reversal Stop: 05/07/17 09:19 Nitroglycerin (Nitroglycerin) 0.4 mg SL Q5M PRN PRN Reason: Chest Pain Stop: 05/07/17 09:22 Omeprazole (Prilosec) 20 mg PO BIDAC [facility] PRN Reason: Protocol Stop: 05/07/17 16:31 Ondansetron HCl (Zofran) 4 mg IVP Q8HR PRN PRN Reason: Nausea And Vomiting Stop: 05/07/17 09:19 Rivaroxaban (Xarelto) 15 mg PO 1700 [facility] Stop: 05/07/17 17:01 Ticagrelor (Brilinta) 90 mg PO BID [facility] Stop: 05/07/17 09:31 Last Admin: 11/05/16 10:09 Dose: 90 mg Laboratory Tests 11/02/16 11/02/16 11/05/16 04:33 08:43 04:20 Hgb 12.8 L Creatinine Troponin I > 50.00 H* > 50.00 H* 11/05/16 11/05/16 11/05/16 04:20 04:20 09:37 Hgb Creatinine 1.10 Troponin I 31.50 H* 28.25 H* - Imaging and Cardiology Chest Xray: report reviewed Echo: report reviewed Cardiac cath: report reviewed - EKG Interpretation EKG results cardiology: personally reviewed (ECG with paced rhythm, HR 68, unchanged from ECG 11/01/16.), other (Telemetry reviewed with average HR 69, paced rhythm. PVCS noted.) Consult Discharge Plan - Plan Referrals: NONE,PCP [Primary Care Provider] -
[2016-11-05] MEDS: Ondansetron 4 MG/2 ML VIAL IVP PRN (13:06)
[2016-11-05] MEDS: Insulin LISPRO 300 UNITS/3 ML VIAL SQ SCH ×3 (14:33→21:26)
--- NOTE | 2016-11-05 16:19 | Electrocardiograph Report ---
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
[2016-11-05] MEDS ORDERED: *HR* Rivaroxaban 15 MG TABLET PO SCH (17:00)
--- NOTE | 2016-11-05 17:11 | Electrocardiograph Report ---
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
[2016-11-05] MEDS: Nitroglycerin 0.4 MG TAB.SUBL SL PRN (21:27)
[2016-11-06] MEDS: Nitroglycerin 0.4 MG TAB.SUBL SL PRN ×3 (01:42→08:20)
[2016-11-06] MEDS ORDERED: *HR* Morphine 2 MG/ML SYRINGE IVP ONE (03:29)
[2016-11-06 05:21] LABS: Basophils % 0.4 %; Eosinophils # 0.3 K/mcL (0.0-0.6); Eosinophils % 2.8 %; Hematocrit 40.2 % (37.5-50.1); Hemoglobin 13.6 g/dL (12.9-16.9); Immature Granulocytes % 0.5 % (0-4); Lymphocytes # 1.6 K/mcL (0.6-4.6); Lymphocytes % 17.1 %; Mean Corpuscular HGB Conc 33.8 g/dL (31.6-35.5); Mean Corpuscular Hemoglobin 28.7 pg (28.0-33.3); Mean Corpuscular Volume 84.8 fL (83.0-100.0); Mean Platelet Volume 11.4 fL (9.4-12.4); Monocytes # 0.8 K/mcL (0.0-1.3); Neutrophils # 6.7 K/mcL (1.6-8.9); Platelet Count 142 K/mcL (140-400); Red Blood Count 4.74 M/mcL (4.19-5.50); Red Cell Distribution Width 13.7 % (11.5-14.5); Segmented Neutrophils % 71.2 %
[2016-11-06 05:36] LABS: BUN/Creatinine Ratio 20 (6-26); Blood Urea Nitrogen 19 mg/dL (8-26); Calcium 9.4 mg/dL (8.6-10.8); Carbon Dioxide 25 mEq/L (19-29); Chloride 107 mEq/L (98-109); Glucose 126 mg/dL (70-99); Osmolality,Calculated 292 (280-300); Potassium 3.9 mEq/L (3.5-4.5); Sodium 139 mEq/L (136-145); eGFR For African Americans > 60 (> 60); eGFR For Non-African Americans > 60 (> 60)
[2016-11-06] MEDS: Aspirin Enteric Coated 81 MG Tablet PO SCH (08:07)
[2016-11-06] MEDS: *HR* Ticagrelor 90 MG TABLET PO SCH ×2 (08:08→20:28)
[2016-11-06] MEDS: Isosorbide MONOnitrate (24 HR) 30 MG TAB.ER.24H PO SCH (08:15)
[2016-11-06] MEDS ORDERED: Nitroglycerin 1 INCH/GM PACKET TP SCH (08:15)
[2016-11-06] MEDS: amLODIPine 5 MG TABLET PO SCH (08:15)
[2016-11-06] MEDS: Insulin LISPRO 300 UNITS/3 ML VIAL SQ SCH ×4 (08:31→20:29)
[2016-11-06] MEDS ORDERED: Nitroglycerin 25 MG/250 ML INFUS..BTL IVC SCH (08:45)
[2016-11-06] MEDS ORDERED: Furosemide 40 MG TABLET PO SCH (09:00)
[2016-11-06] MEDS ORDERED: Isosorbide MONOnitrate (24 HR) 60 MG TAB.ER.24H PO SCH (09:00)
[2016-11-06] MEDS: Nitroglycerin 25 MG/250 ML INFUS..BTL IVC SCH ×2 (09:22→10:24)
--- NOTE | 2016-11-06 09:29 | Internal Med Progress Note ---
Date of Encounter: 11/06/16 Time of Encounter: 09:26 - Assessment and plan (1) CAD (coronary artery disease) Current Visit: No Status: Chronic Qualifiers: Coronary Disease-Associated Artery/Lesion type: unspecified vessel or lesion type [place] vs. transplanted heart: [place] heart Associated angina: angina presence unspecified Qualified Code(s): I25.10 - Atherosclerotic heart disease of [place] coronary artery without angina pectoris (2) Chest pain Current Visit: Yes Status: Acute Qualifiers: Chest pain type: other chest pain Qualified Code(s): R07.89 - Other chest pain; R07.8 - Other chest pain (3) Congestive heart failure Current Visit: No Status: Chronic Qualifiers: Congestive heart failure type: combined Congestive heart failure chronicity : chronic Qualified Code(s): I50.42 - Chronic combined systolic (congestive) and diastolic (congestive) heart failure (4) IDDM (insulin dependent diabetes mellitus) Current Visit: No Status: Chronic (5) Pacemaker Current Visit: No Status: Chronic (6) HTN (hypertension) Current Visit: No Status: Chronic Qualifiers: Hypertension type: essential hypertension Qualified Code(s): I10 - Essential (primary) hypertension (7) HLD (hyperlipidemia) Current Visit: No Status: Chronic Qualifiers: Hyperlipidemia type: pure hypercholesterolemia Qualified Code(s): E78.00 - Pure hypercholesterolemia, unspecified; E78.0 - Pure hypercholesterolemia (8) DVT prophylaxis Current Visit: No Status: Acute - Subjective Interval history: Mr. Pizarro is a 75 year old male is well known to us with a history of diabetes, hypertension, CAD S/P stent 3 days ago, ischemic cardiomyopathy with systolic CHF, paroxysmal A. fib on xarelto, present to ER for chest pain. Patient said pain started 3 AM this morning and wakes him up from sleep. Pain is located on the mid chest, radiated to left arm and back. Pain is responding to nitroglycerin. Patient totally has 3 episodes of chest pain, lasts about 30 minutes for each episode. This morning patient has recurrent chest pain 8 out of 10 similar to his angina. His blood pressure is suboptimal in the range of 90/50. He has responded to sublingual nitroglycerin and therefore we plan to start IV nitroglycerin but considering low blood pressure he might need pressure support. He will be transferred to ICU so that if pressor needed those can be started as onto [facility] we cannot use pressors. Cardiology has been updated by nursing. His troponins are actually trending down from his previous heart attack. As noted above he has an ejection fraction of only 35-40% and therefore we have very little to use IV fluid. Cardiology has seen the patient. They think that patient's chest pain is atypical and soles of pain is abdominal as patient is also complaining of abdominal pain. Patient has been started on IV Protonix 40 twice a day amylase lipase ordered and CT abdomen and pelvis with contrast ordered. - Constitutional Vitals: Temp Pulse Resp BP Pulse Ox 98.2 F 70 14 122/71 95 11/06/16 06:49 11/06/16 06:49 11/06/16 06:49 11/06/16 06:49 11/06/16 06:49 General appearance: Present: mild distress, A&O X 3, answers questions appropriately - Head Head exam: Present: atraumatic, normocephalic - Eye Eye exam: Present: PERRL, conjuntiva pink, sclera anicteric Pupils: Present: PERRL - Neck Neck exam general surgery: Present: supple, trachea midline. Absent: lymphadenopathy - Respiratory Respiratory exam: Present: CTAB. Absent: accessory muscle use, rales, rhonchi, wheezes - Cardiovascular Cardiovascular exam: Present: RRR, +S1, +S2. Absent: diastolic murmur, gallop, rubs, systolic murmur - GI/Abdominal GI/Abdominal exam: Present: normal bowel sounds, soft, tenderness, no peritoneal signs. Absent: distended - Extremities Exam Extremities exam: Present: warm, radial pulses palpable and symmetrical. Absent : calf tenderness, cyanotic, pedal edema - Neurological Exam Neurological exam: Present: CN II-XII intact, oriented X3, no focal deficits. Absent: pronater drift, facial droop, speech deficit - Skin Skin exam: Present: dry, intact Internal Medicine: Result - Labs CBC & Chem 7: 11/06/16 10:33 11/06/16 04:52 Labs: Short CBC 11/06/16 Range/Units 04:52 WBC 9.4 (4.3-11.1) K/mcL Hgb 13.6 (12.9-16.9) g/dL Hct 40.2 (37.5-50.1) % Plt Count 142 (140-400) K/mcL Neutrophils # 6.7 (1.6-8.9) K/mcL BMP 11/06/16 04:52 Sodium 139 Potassium 3.9 Chloride 107 Carbon Dioxide 25 BUN 19 Creatinine 0.97 Glucose 126 H Calcium 9.4 Cardiac Enzymes 11/05/16 11/05/16 11/06/16 Range/Units 09:37 16:12 08:22 Troponin I 28.25 H* 21.38 H* 20.13 H* (0-0.03) ng/mL - ABG Interpretation ABG results: PT/INR, D-dimer PT 11.5 Seconds (9.4-12.1) 11/05/16 04:20 Consult Discharge Plan - Plan Referrals: Lance Cronin MD [Partnered Physician] - 11/09/16 2:15 pm NONE,PCP [Primary Care Provider] -
--- NOTE | 2016-11-06 10:21 | Pulmonology Consult Note ---
<Joni Chisholm - Last Filed: 11/06/16 13:17> Date of Encounter: 11/06/16 Time of Encounter: 10:38 Assessment and Plan (1) Chest pain Current Visit: Yes Status: Acute Patient states that this is the same chest pain that he had before he had stent placement. This is very concerning for the possibility of a stent thrombosis. I have consulted cardiology and Dr. Stone came by to see him. Patient was comfortable at that time, and he believes that this is not a stent thrombosis. We are giving morphine as needed for pain. Qualifiers: Chest pain type: other chest pain Qualified Code(s): R07.89 - Other chest pain; R07.8 - Other chest pain (2) Hypotension due to medication Current Visit: Yes Status: Acute Patient was in distress, having active chest pain, and hypotensive when pulmonology was consulted from the intensive care unit. He was on a nitro drip at the time. We discontinue the nitro drip and his blood pressure returned to 100/63. At this time, I believe that his drop in blood pressure was due to the nitro drip and not from a coronary event. Patient is currently hemodynamically stable. We will continue monitoring his blood pressure. (3) Epigastric abdominal pain Current Visit: Yes Status: Acute Patient complains of epigastric abdominal pain. His abdomen had mild tenderness to palpation of the epigastrium. He did receive a CT of his abdomen yesterday. This CT was negative for an intra-abdominal abnormality. This patient does not have a leukocytosis and his hemoglobin is normal. I have given him a GI cocktail. He is also on Protonix. I suspect that this epigastric abdominal pain may be either gastritis or stress gastritis due to his recent procedures in inpatient status. We will continue monitoring his CBC , CMP, as well as his symptoms. (4) Congestive heart failure Current Visit: No Status: Chronic Currently stable on 40 mg of Lasix. We did obtain an echocardiogram today. Qualifiers: Congestive heart failure type: combined Congestive heart failure chronicity : chronic Qualified Code(s): I50.42 - Chronic combined systolic (congestive) and diastolic (congestive) heart failure (5) IDDM (insulin dependent diabetes mellitus) Current Visit: No Status: Chronic On corrective low-dose insulin scale. His last sugar was 126. I think we should continue the current treatment as well as monitoring his blood glucose. (6) CAD (coronary artery disease) Current Visit: No Status: Chronic Currently on Brylinta as well as aspirin. Continue current management Qualifiers: Coronary Disease-Associated Artery/Lesion type: unspecified vessel or lesion type [place] vs. transplanted heart: [place] heart Associated angina: angina presence unspecified Qualified Code(s): I25.10 - Atherosclerotic heart disease of [place] coronary artery without angina pectoris (7) Pacemaker Current Visit: No Status: Chronic See above (8) DVT prophylaxis Current Visit: No Status: Acute Currently on Xarelto History of Present Illness Consult date: 11/06/16 Requesting physician: Darell Mccann Reason for consult: chest pain, other (Hypotension) Chief complaint: Chest pain History of present illness: This is a 75-year-old male with a past medical history her recent placement of 4 stents. He was just transferred to the intensive care unit from the floor upon request of the hospitalist after he stated that the patient was having active chest pain, nausea, diaphoresis. Hospitalist placed the patient on a nitro drip. He became hypotensive. Patient states that he is currently having chest pain. He states that it comes and goes. He states that this started at 1 AM and is similar in nature to the chest pain that he has when he has previous myocardial infarction. Past Med Surg Social Fam HX - Past Medical History Medical history: asthma, atrial fibrillation, coronary artery disease, CVA, diabetes, hypertension, myocardial infarction, thyroid disease Psychiatric history: no psych history - Past Surgical History Surgical History: cholecystectomy, coronary bypass (CABG), pacemaker/AICD - Social History Smoking Status: Former smoker Smokeless Tobacco Status: No Alcohol use: none Drug use: none - Family History Grandfather Living Status: Hx Family Cardiac Disorders: Yes Mother Living Status: Hx Family Neurologic Disorders: Yes (CVA) Father Adopted: No Living Status: Hx Family Cardiac Disorders: No Hx Family Respiratory Disorders: No Hx Family Cancer: Yes Hx Family GI Disorders: No Hx Family Endocrine Disorder: No Hx Family Neuromuscular Disorders: No Hx Family Neurologic Disorders: No Hx Family HEENT Disorders: No Hx Family Autoimmune Disorders: No Medications and Allergies Aspirin Enteric Coated [Aspirin EC] 81 mg PO DAILY #30 tablet. 02/21/16 [Rx] Furosemide [Lasix] 40 mg PO DAILY #30 tablet 02/21/16 [Rx] Nitroglycerin [Nitrostat] 0.4 mg SL Q5M PRN 10/01/16 [History] amLODIPine [Norvasc] 10 mg PO DAILY #30 tab 10/05/16 [Rx] Atorvastatin [Lipitor] 40 mg PO HS #30 tablet 11/04/16 [Rx] Carvedilol [Coreg] 3.125 mg PO BIDWM 30 Days 11/04/16 [Rx] Isosorbide MONOnitrate (24 HR) [Imdur] 90 mg PO DAILY #30 11/04/16 [Rx] Lisinopril [Zestril] 2.5 mg PO DAILY #30 tab 11/04/16 [Rx] Omeprazole [PriLOSEC] 20 mg PO BIDAC #60 11/04/16 [Rx] Rivaroxaban [Xarelto] 15 mg PO 1700 #30 tab 11/04/16 [Rx] Ticagrelor [Brilinta] 90 mg PO BID 30 Days 11/04/16 [Rx] metFORMIN [Glucophage] 500 mg PO BIDWM 30 Days 11/04/16 [Rx] 3 Allergy/AdvReac Type Severity Reaction Status Date / Time Oxycodone [From Percocet] Allergy Hives Verified 10/19/16 17:21 tramadol Allergy Hives Verified 10/19/16 17:21 All Systems: A 10-system review of systems was performed and is negative for pertinent findings except as documented above in the HPI. - Cardiovascular Cardiovascular: chest pain, chest pain at rest, diaphoresis, dyspnea, radiating pain - Respiratory Respiratory: dyspnea - Gastrointestinal Gastrointestinal: abdominal pain (Epigastric) Physical Examination Vital Signs: Vital Signs, Last 4 Hours Temp Pulse Resp BP Pulse Ox 11/06/16 10:00 97.8 F 97 11/06/16 06:49 98.2 F 70 14 122/71 95 General appearance: alert, other (75-year-old male lying in bed, does not appear to be in any acute distress) Eyes: nonicteric ENT: oropharynx moist Effort: normal Inspection: normal Auscultation: bilateral: clear Cardiovascular: other (Telemetry: Ventricular paced rhythm with a rate of 70) Gastrointestinal: normoactive bowel sounds, tender (Mild epigastric ), non- distended Integumentary: normal Extremities: no cyanosis, no edema normal mental status, non-focal exam, pupils equal and round mood appropriate, affect normal Results - Laboratory Findings CBC and BMP: 11/06/16 10:33 11/06/16 04:52 PT/INR, D-dimer PT 11.5 Seconds (9.4-12.1) 11/05/16 04:20 Abnormal lab findings: Abnormal lab results Glucose 126 mg/dL (70-99) H 11/06/16 04:52 POC Glucose 218 (58-89) H 11/06/16 10:08 Troponin I 20.13 ng/mL (0-0.03) H* 11/06/16 08:22 - Clinical Findings Intake & Output: Intake & Output 11/05/16 11/06/16 11/06/16 23:59 07:59 15:59 Intake Total 120 / 120 120 / 120 Output Total 750 / 750 650 / 650 Balance -630 / -630 -650 / -650 120 / 120 Weight 86 kg Consult Discharge Plan - Plan Referrals: Lance Cronin MD [Partnered Physician] - 11/09/16 2:15 pm NONE,PCP [Primary Care Provider] - <Esperanza Sood - Last Filed: 11/06/16 15:17> Date of Encounter: 11/06/16 All Systems: A 10-system review of systems was performed and is negative for pertinent findings except as documented above in the HPI. Physical Examination Vital Signs: Vital Signs, Last 4 Hours Pulse Resp BP Pulse Ox 11/06/16 15:00 76 20 96/65 98 11/06/16 14:00 68 16 97/66 98 11/06/16 13:00 72 16 83/60 98 11/06/16 12:00 75 18 129/76 99 Results - Laboratory Findings CBC and BMP: 11/06/16 10:33 11/06/16 04:52 PT/INR, D-dimer PT 11.5 Seconds (9.4-12.1) 11/05/16 04:20 Abnormal lab findings: Abnormal lab results Glucose 126 mg/dL (70-99) H 11/06/16 04:52 POC Glucose 218 (58-89) H 11/06/16 10:08 Troponin I 22.70 ng/mL (0-0.03) H* 11/06/16 14:12 - Clinical Findings Intake & Output: Intake & Output 11/05/16 11/06/16 11/06/16 23:59 07:59 15:59 Intake Total 120 / 120 120 / 120 Output Total 750 / 750 650 / 650 400 / 400 Balance -630 / -630 -650 / -650 -280 / -280 Weight 86 kg - Attending Attestation I examined this patient and my medical decision-making was reviewed with the Resident Physician. I agree with the documented findings, disposition and treatment plan as described except to the extent set forth below. Patient seen and examined. Labs, radiology, chart personally reviewed. Agree with resident's history and physical, assessment, plan with following comments: CREDIT DIRECTOR: Patient follows commands, Pulmonary: Acceptable oxygenation and ventilation Cardiovascular: stable . Patient with significant cardiovascular comorbidity, however this does not appear to be cardiac events. GI: Nutrition per dietary and GI prophylaxis per routine. Patient has nonspecific abdominal pain and it has been going on for many years Heme: DVT prophylaxis per routine ID: Patient does not appear to be septic Renal; urine out put and renal funtion reviewed Endorcine: blood glucose is monitored Lines: all lines checked and no evidence of infections Skin: skin care to prevent pressure ulcers per nursing routine care Patient hemodynamically stable and will monitor for next 24 hours, if no changes he will be transferred out of ICU.
[2016-11-06] MEDS ORDERED: GI Cocktail 40 ML EACH PO ONE ×2 (10:44→23:01)
[2016-11-06] MEDS ORDERED: *HR* Heparin 5,000 UNIT/ML VIAL IVP PRN ×2 (12:06)
[2016-11-06] MEDS ORDERED: *HR* Heparin 5,000 UNIT/ML VIAL IVP ONE (12:06)
[2016-11-06] MEDS ORDERED: Heparin 25,000 UNIT/500 ML D5W 25,000 UNIT/500 ML MLS IVC SCH (12:15)
[2016-11-06 12:59] LABS: Hematocrit 40.1 % (37.5-50.1); Hemoglobin 13.7 g/dL (12.9-16.9); Mean Corpuscular HGB Conc 34.2 g/dL (31.6-35.5); Mean Corpuscular Hemoglobin 29.3 pg (28.0-33.3); Mean Corpuscular Volume 85.7 fL (83.0-100.0); Mean Platelet Volume 11.3 fL (9.4-12.4); Platelet Count 176 K/mcL (140-400); Red Blood Count 4.68 M/mcL (4.19-5.50); Red Cell Distribution Width 13.9 % (11.5-14.5)
[2016-11-06] MEDS ORDERED: Ondansetron 4 MG/2 ML VIAL IVP ONE (13:13)
[2016-11-06] MEDS: Ondansetron 4 MG/2 ML VIAL IVP PRN (13:16)
--- NOTE | 2016-11-06 13:35 | Cardiology Progress Note ---
Date of Encounter: 11/06/16 Time of Encounter: 13:30 Assessment and Plan (1) Chest pain Current Visit: Yes Status: Acute MId epigastric, atypical for previous anginal equiavent, most consistent with abdominal etiolog Qualifiers: Chest pain type: other chest pain Qualified Code(s): R07.89 - Other chest pain; R07.8 - Other chest pain (2) CAD (coronary artery disease) of bypass graft Current Visit: Yes Status: Acute Pt status post CABG, PCI with JATINDER x 4 RCA last week, troponin continues to trend downward, very unlike cardiac etiology of this symptom complex. Qualifiers: [place] vs. transplanted heart: [place] heart Associated angina: without angina Qualified Code(s): I25.810 - Atherosclerosis of coronary artery bypass graft(s) without angina pectoris (3) Epigastric abdominal pain Current Visit: Yes Status: Acute Epigastric pain, recomend abdominal CT for further evalution source of epigastric pain. Cancelled heparin drip and stat Echo. Discussion w patient/family: The assessment and plan as outlined above was discussed with the patient and/or family members who expressed understanding and agreement. All questions were answered. Thank you for involving us in the care of your patient. Please call with any questions. Subjective Principal diagnosis: Chest Pain Interval history: Asked to evaluate pt for chest pain. Pt complians of 8/10 mid epigastric pain, radiates into neck, left shoulder and left upper quadrant, burning sensation, not improved with sublingual ntg, more severe if tries to lie flat, improves with sitting up. PT reports was most severe around 2 AM, improved with IV narcotic, did not seem to change with sl ntg. He reports shorntess of breath if tries to lie flat past 30 dkegrees. He notes chest pain almost completely resolved with sitting up. He reports this discomfort is much different than during PCi with JATINDER RCA earlier this week. Objective Vital Signs, Last 4 Hours Temp Pulse Resp BP Pulse Ox 11/06/16 13:00 72 16 83/60 98 11/06/16 12:00 75 18 129/76 99 11/06/16 11:00 78 14 100/63 98 11/06/16 10:00 97.8 F 97 General: Conversant, No Apparent Distress HEENT: Atraumatic, Normocephaly, Mucus Membranes Moist Neck: No JVD, Normal carotid pulses Cardiac: Reg Rate and Rhythm, Normal S1 and S2 Lungs: Normal Breath Sounds Neuro: Alert and responsive Abdomen: Other (abdomen soft, mildly tender to palpation all four quadrants, some guarding to light palpiation in both upper quadrants. NO rebound tenderness. ) Skin: No rashes noted on visualized skin Musculoskeletal: No Chest Wall Tenderness Extremities: No Clubbing, No Cyanosis Results 11/06/16 10:33 11/06/16 04:52 Lab Results 11/05/16 11/06/16 11/06/16 16:12 04:52 04:52 WBC 9.4 Hgb 13.6 Hct 40.2 Plt Count 142 Sodium 139 Potassium 3.9 Chloride 107 Carbon Dioxide 25 BUN 19 Creatinine 0.97 Glucose 126 H Calcium 9.4 Troponin I 21.38 H* 11/06/16 11/06/16 08:22 10:33 WBC 9.2 Hgb 13.7 Hct 40.1 Plt Count 176 Sodium Potassium Chloride Carbon Dioxide BUN Creatinine Glucose Calcium Troponin I 20.13 H* - EKG Interpretation EKG results cardiology: personally reviewed (Electronic Ventricular pacemaker) Consult Discharge Plan - Plan Referrals: Lance Cronin MD [Partnered Physician] - 11/09/16 2:15 pm NONE,PCP [Primary Care Provider] -
[2016-11-06 14:39] LABS: Amylase 42 Units/L (25-125); Lipase 19 Units/L (8-78)
[2016-11-06] MEDS ORDERED: Ondansetron 4 MG/2 ML VIAL IVP PRN (15:21)
[2016-11-06] MEDS ORDERED: *HR* Rivaroxaban 15 MG TABLET PO SCH (17:00)
[2016-11-06] MEDS: Pantoprazole 40 MG VIAL IVP SCH (17:07)
[2016-11-06] MEDS: *HR* Morphine 2 MG/ML SYRINGE IVP PRN ×2 (18:31→20:28)
[2016-11-07 01:57] LABS: Basophils % 0.4 %; Eosinophils # 0.2 K/mcL (0.0-0.6); Eosinophils % 2.7 %; Hematocrit 39.3 % (37.5-50.1); Hemoglobin 13.5 g/dL (12.9-16.9); Immature Granulocytes % 0.6 % (0-4); Immature Platelets 6.4 % (1.1-6.1); Lymphocytes # 1.9 K/mcL (0.6-4.6); Lymphocytes % 21.4 %; Mean Corpuscular HGB Conc 34.4 g/dL (31.6-35.5); Mean Corpuscular Hemoglobin 29.4 pg (28.0-33.3); Mean Corpuscular Volume 85.6 fL (83.0-100.0); Mean Platelet Volume 11.2 fL (9.4-12.4); Monocytes # 0.8 K/mcL (0.0-1.3); Monocytes % 9.1 %; Neutrophils # 5.9 K/mcL (1.6-8.9); Platelet Count 157 K/mcL (140-400); Red Blood Count 4.59 M/mcL (4.19-5.50); Red Cell Distribution Width 13.9 % (11.5-14.5); Segmented Neutrophils % 65.8 %
[2016-11-07 02:16] LABS: Albumin 3.3 g/dL (3.5-5.0); Calcium 9.1 mg/dL (8.6-10.8); Globulin 3.3 g/dL (2.4-3.5); Potassium 4.2 mEq/L (3.5-4.5); Total Protein 6.6 g/dL (6.0-8.3)
[2016-11-07] MEDS: Pantoprazole 40 MG VIAL IVP SCH ×2 (05:58→17:38)
[2016-11-07] MEDS: *HR* Morphine 2 MG/ML SYRINGE IVP PRN ×3 (05:59→13:15)
[2016-11-07] MEDS ORDERED: 0.9 % Sodium Chloride 1,000 ML IVC SCH (06:30)
--- NOTE | 2016-11-07 08:29 | Pulmonology Progress Note ---
<Eliceo Schumacher - Last Filed: 11/07/16 10:38> Date of Encounter: 11/07/16 Time of Encounter: 08:27 Assessment and Plan (1) Chest pain Current Visit: Yes Status: Acute Cardiology has been consulted on this patient. Patient's had recent stent placement. After reviewing their note they feel it is very unlikely that his symptoms are related to a cardiac etiology. We will continue to follow the patient's troponin. Patient has morphine ordered for pain control. Patient will be transferred out of the ICU to a telemetry bed. I spoke with Dr. De La Cruz at 10:30 AM and he has accepted the patient. Qualifiers: Chest pain type: other chest pain Qualified Code(s): R07.89 - Other chest pain; R07.8 - Other chest pain (2) Congestive heart failure Current Visit: No Status: Chronic Patient has history of congestive heart failure. Due to the patient having an increase in his creatinine. Discontinue Lasix at this time. Qualifiers: Congestive heart failure type: combined Congestive heart failure chronicity : chronic Qualified Code(s): I50.42 - Chronic combined systolic (congestive) and diastolic (congestive) heart failure (3) CAD (coronary artery disease) Current Visit: No Status: Chronic Patient's history coronary artery disease. Had 4 stents placed recently. Patient is currently on Brilinta and Aspirin. We will continue with these medications. Qualifiers: Coronary Disease-Associated Artery/Lesion type: unspecified vessel or lesion type [place] vs. transplanted heart: [place] heart Associated angina: angina presence unspecified Qualified Code(s): I25.10 - Atherosclerotic heart disease of [place] coronary artery without angina pectoris (4) Hypotension due to medication Current Visit: Yes Status: Acute History the patient was hypotensive but was on a nitro drip. The nitro drip has been discontinued since then and his blood pressure has normalized in the 120s over 70s. His drop in blood pressure was likely due to the nitro drip. The patient is currently hemodynamically stable and we will continue to monitor this patient's blood pressure and treat accordingly. (5) Epigastric abdominal pain Current Visit: Yes Status: Acute The patient was having epigastric abdominal pain yesterday. This has resolved. He did receive a abdominal CT which was negative and radiology report said no acute abnormality in the abdomen. Patient had received a GI cocktail yesterday as well as overnight. This seemed to relieve some of the patient's pain. We will repeat the GI cocktail if the patient's symptoms worsen. (6) DM2 (diabetes mellitus, type 2) Current Visit: No Status: Chronic Patient has a history of type 2 diabetes. Patient states that he uses insulin at home. He is currently on low-dose insulin correction while in the hospital. Current blood glucose was 123. We will continue to monitor this patient's glucose levels and these low-dose insulin to manage this. Qualifiers: Diabetes mellitus complication status: with circulatory complication Diabetes mellitus complication detail: with other circulatory complications Diabetes mellitus exterminator insulin use: with exterminator use Qualified Code(s) : E11.59 - Type 2 diabetes mellitus with other circulatory complications; Z79.4 - technician terminal and repeater (current) use of insulin (7) DARLYN (acute kidney injury) Current Visit: No Status: Acute Patient appears to have some acute kidney injury. I suspect that this is due to the patient having hypotension. His current creatinine is 1.51 this is elevated from the patient's baseline. We have held the patient's Lasix for today. (8) DVT prophylaxis Current Visit: No Status: Acute Patient is currently on Xarelto. Subjective Principal diagnosis: Chest Pain Interval history: Patient states that he is doing well this morning and did well overnight. States that he has some mild pain around where his pacer is. States that his breathing is doing okay. Overall the patient states that he is doing well. Objective PUL Vital signs: Last Vital Signs Temp 97.5 F L 11/07/16 08:07 Pulse 71 11/07/16 06:00 Resp 16 11/07/16 06:00 BP 123/75 11/07/16 06:00 Pulse Ox 95 11/07/16 06:00 General appearance: no acute distress Eyes: nonicteric ENT: oropharynx moist Neck: supple, no JVD Effort: normal Auscultation: bilateral: clear Cardiovascular: regular rate and rhythm Gastrointestinal: normoactive bowel sounds, non-tender Integumentary: normal Extremities: no cyanosis Musculoskeletal: no deformities normal mental status, non-focal exam mood appropriate, affect normal Results - Laboratory Findings CBC and BMP: 11/07/16 01:48 11/07/16 01:48 PT/INR, D-dimer PT 11.5 Seconds (9.4-12.1) 11/05/16 04:20 Abnormal lab findings: Abnormal lab results Immature Plt Fraction 6.4 % (1.1-6.1) H 11/07/16 01:48 BUN 29 mg/dL (8-26) H D 11/07/16 01:48 Creatinine 1.51 mg/dL (0.72-1.25) H D 11/07/16 01:48 Est GFR ( Amer) 55 (> 60) L 11/07/16 01:48 Est GFR (Non-Af Amer) 45 (> 60) L 11/07/16 01:48 Glucose 123 mg/dL (70-99) H 11/07/16 01:48 POC Glucose 132 (58-89) H 11/07/16 08:00 Troponin I 20.00 ng/mL (0-0.03) H* 11/07/16 01:48 Albumin 3.3 g/dL (3.5-5.0) L 11/07/16 01:48 Albumin/Globulin Ratio 1.0 (1.1-2.2) L 11/07/16 01:48 - Clinical Findings Intake & Output: Intake & Output 11/06/16 11/07/16 11/07/16 23:59 07:59 15:59 Intake Total 480 / 480 0 / 0 Output Total 300 / 300 100 / 100 Balance 180 / 180 0 / 0 -100 / -100 Weight 84.323 kg Consult Discharge Plan - Plan Referrals: Lance Cronin MD [Partnered Physician] - 11/09/16 2:15 pm NONE,PCP [Primary Care Provider] - <Dimple Meier S - Last Filed: 11/07/16 16:01> Date of Encounter: 11/07/16 Objective PUL Vital signs: Last Vital Signs Temp 97.6 F 11/07/16 11:00 Pulse 70 11/07/16 11:00 Resp 18 11/07/16 11:00 BP 99/70 11/07/16 11:00 Pulse Ox 97 11/07/16 11:00 Results - Laboratory Findings CBC and BMP: 11/07/16 01:48 11/07/16 01:48 PT/INR, D-dimer PT 11.5 Seconds (9.4-12.1) 11/05/16 04:20 Abnormal lab findings: Abnormal lab results Immature Plt Fraction 6.4 % (1.1-6.1) H 11/07/16 01:48 BUN 29 mg/dL (8-26) H D 11/07/16 01:48 Creatinine 1.51 mg/dL (0.72-1.25) H D 11/07/16 01:48 Est GFR ( Amer) 55 (> 60) L 11/07/16 01:48 Est GFR (Non-Af Amer) 45 (> 60) L 11/07/16 01:48 Glucose 123 mg/dL (70-99) H 11/07/16 01:48 POC Glucose 124 (58-89) H 11/07/16 15:39 Troponin I 20.00 ng/mL (0-0.03) H* 11/07/16 01:48 Albumin 3.3 g/dL (3.5-5.0) L 11/07/16 01:48 Albumin/Globulin Ratio 1.0 (1.1-2.2) L 11/07/16 01:48 - Clinical Findings Intake & Output: Intake & Output 11/06/16 11/07/16 11/07/16 23:59 07:59 15:59 Intake Total 480 / 480 0 / 0 Output Total 300 / 300 325 / 325 Balance 180 / 180 0 / 0 -325 / -325 Weight 84.323 kg 87.861 kg - Attending Attestation I saw the patient with the resident agree with History and Physical exam findings. Labs and Radiology were reviewed Ventilator data were reviewed STILL OPERATOR: Patient is conscious oriented x3 following commands NECK : No JVD appreciated Pulmonary : Patient doesnt have any pulmonary issues , he is on and off O2 most likely due to pulmonary congestion due to chronic systolic heart failure , in my exam he looked euvolemic Cardiac : Patient is coronary artery disease supported by recent stents on dual antiplatelet therapy, current chest pain which was treated with nitroglycerin on the floor which led to hypotension and transferred to ICU is not due to cardiac in origin. Cardiology following appreciate the recs . We will hold off Lasix today. The acute kidney injury. Nutrition/GI: Patient had epigastric pain and tenderness concern of stress gastritis to continue PPI . Renal : DARLYN mostly likely due to diuresis will encourage PO intake to hold Lasix for today Heme onc : Stable Endo: Stable Disposition : Transfer to telemetry floor .Report called to the Hospitalist Code status: Full code.
[2016-11-07] MEDS: Insulin LISPRO 300 UNITS/3 ML VIAL SQ SCH ×4 (08:46→21:55)
[2016-11-07] MEDS: Aspirin Enteric Coated 81 MG Tablet PO SCH (09:00)
[2016-11-07] MEDS: Nitroglycerin 25 MG/250 ML INFUS..BTL IVC SCH ×2 (09:01→11:28)
[2016-11-07] MEDS: Isosorbide MONOnitrate (24 HR) 30 MG TAB.ER.24H PO SCH (09:01)
[2016-11-07] MEDS: *HR* Ticagrelor 90 MG TABLET PO SCH ×2 (09:01→21:58)
[2016-11-07] MEDS: amLODIPine 5 MG TABLET PO SCH (09:01)
[2016-11-07] MEDS ORDERED: D5% in Water 1,000 ML IVC PRN (10:49)
[2016-11-07] MEDS ORDERED: Dextrose Gel 15 GM PO PRN ×2 (10:49)
[2016-11-07] MEDS ORDERED: *HR* Dextrose 50 % in Water (Syg) 50 ML SYRINGE IVP PRN (10:49)
[2016-11-07] MEDS ORDERED: Naloxone 0.4 MG/ML INJ IVP PRN (10:49)
--- NOTE | 2016-11-07 13:49 | Cardiology Progress Note ---
Date of Encounter: 11/07/16 Time of Encounter: 13:45 Assessment and Plan (1) Chest pain Current Visit: Yes Status: Acute Improved with GI cockail, may benefit from GI eval for esophageal etiology of chest pain. Qualifiers: Chest pain type: other chest pain Qualified Code(s): R07.89 - Other chest pain; R07.8 - Other chest pain (2) CAD (coronary artery disease) of bypass graft Current Visit: Yes Status: Acute Severe triple vessel CAD, post CABG, post PCI with JATINDER RCA last week, with resolution of anginal chest pain on current meds. Qualifiers: [place] vs. transplanted heart: [place] heart Associated angina: without angina Qualified Code(s): I25.810 - Atherosclerosis of coronary artery bypass graft(s) without angina pectoris (3) Epigastric abdominal pain Current Visit: Yes Status: Acute Epigastric pain, abdominal CT negative for acute abdominal process. Discussion w patient/family: The assessment and plan as outlined above was discussed with the patient and/or family members who expressed understanding and agreement. All questions were answered. Thank you for involving us in the care of your patient. Please call with any questions. Subjective Principal diagnosis: Chest Pain Interval history: Asked to evaluate pt for chest pain. Pt reports chest pain provoked by exercise, with balloon inflation in cardiac cath rn, has resolved. He notes mid epigastric chest discomfort improved after GI cocktail, now reoccured mildly following lunch. He has not been up in chair, minimal activity. Objective Vital Signs, Last 4 Hours Temp Pulse Resp BP Pulse Ox 11/07/16 11:00 97.6 F 70 18 99/70 97 11/07/16 10:00 69 18 105/72 94 General: Conversant HEENT: Atraumatic, Normocephaly Neck: No JVD, Normal carotid pulses Cardiac: Reg Rate and Rhythm, Normal S1 and S2 Lungs: Normal Breath Sounds, No Wheeze, Rales, Rhonchi Neuro: Alert and responsive, No focal deficits noted Abdomen: Other (Mildly distended, mild epigastric tenderness, no rebound. ) Results 11/07/16 01:48 11/07/16 01:48 Lab Results 11/06/16 11/06/16 11/07/16 14:12 14:12 01:48 WBC 9.0 Hgb 13.5 Hct 39.3 Plt Count 157 Sodium Potassium Chloride Carbon Dioxide BUN Creatinine Glucose Calcium Total Bilirubin AST ALT Alkaline Phosphatase Troponin I 22.70 H* Amylase 42 Lipase 19 11/07/16 11/07/16 01:48 01:48 WBC Hgb Hct Plt Count Sodium 137 Potassium 4.2 Chloride 105 Carbon Dioxide 24 BUN 29 H D Creatinine 1.51 H D Glucose 123 H Calcium 9.1 Total Bilirubin 1.0 D AST 27 ALT 33 Alkaline Phosphatase 65 Troponin I 20.00 H* Amylase Lipase Consult Discharge Plan - Plan Referrals: Lance Cronin MD [Partnered Physician] - 11/09/16 2:15 pm NONE,PCP [Primary Care Provider] -
--- NOTE | 2016-11-07 17:05 | Electrocardiograph Report ---
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
--- NOTE | 2016-11-07 17:13 | Electrocardiograph Report ---
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
--- NOTE | 2016-11-07 17:14 | Electrocardiograph Report ---
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
[2016-11-07] MEDS: *HR* Rivaroxaban 15 MG TABLET PO SCH (17:38)
--- NOTE | 2016-11-07 17:49 | Internal Med Progress Note ---
Date of Encounter: 11/07/16 Time of Encounter: 17:48 - Assessment and plan (1) CAD (coronary artery disease) Current Visit: No Status: Chronic Qualifiers: Coronary Disease-Associated Artery/Lesion type: unspecified vessel or lesion type [place] vs. transplanted heart: [place] heart Associated angina: angina presence unspecified Qualified Code(s): I25.10 - Atherosclerotic heart disease of [place] coronary artery without angina pectoris (2) Chest pain Current Visit: Yes Status: Acute Qualifiers: Chest pain type: other chest pain Qualified Code(s): R07.89 - Other chest pain; R07.8 - Other chest pain (3) Congestive heart failure Current Visit: No Status: Chronic Qualifiers: Congestive heart failure type: combined Congestive heart failure chronicity : chronic Qualified Code(s): I50.42 - Chronic combined systolic (congestive) and diastolic (congestive) heart failure (4) IDDM (insulin dependent diabetes mellitus) Current Visit: No Status: Chronic (5) Pacemaker Current Visit: No Status: Chronic (6) HTN (hypertension) Current Visit: No Status: Chronic Qualifiers: Hypertension type: essential hypertension Qualified Code(s): I10 - Essential (primary) hypertension (7) HLD (hyperlipidemia) Current Visit: No Status: Chronic Qualifiers: Hyperlipidemia type: pure hypercholesterolemia Qualified Code(s): E78.00 - Pure hypercholesterolemia, unspecified; E78.0 - Pure hypercholesterolemia (8) DVT prophylaxis Current Visit: No Status: Acute - Subjective Interval history: Mr. Pizarro is a 75 year old male is well known to us with a history of diabetes, hypertension, CAD S/P stent 3 days ago, ischemic cardiomyopathy with systolic CHF, paroxysmal A. fib on xarelto, present to ER for chest pain. Patient said pain started 3 AM this morning and wakes him up from sleep. Pain is located on the mid chest, radiated to left arm and back. Pain is responding to nitroglycerin. Patient totally has 3 episodes of chest pain, lasts about 30 minutes for each episode. This morning patient has recurrent chest pain 8 out of 10 similar to his angina. His blood pressure is suboptimal in the range of 90/50. He has responded to sublingual nitroglycerin and therefore we plan to start IV nitroglycerin but considering low blood pressure he might need pressure support. He will be transferred to ICU so that if pressor needed those can be started as onto [facility] we cannot use pressors. Cardiology has been updated by nursing. His troponins are actually trending down from his previous heart attack. As noted above he has an ejection fraction of only 35-40% and therefore we have very little to use IV fluid. Cardiology has seen the patient. They think that patient's chest pain is atypical and soles of pain is abdominal as patient is also complaining of abdominal pain. Patient has been started on IV Protonix 40 twice a day amylase lipase ordered and CT abdomen and pelvis with contrast ordered. - Constitutional Vitals: Temp Pulse Resp BP Pulse Ox 98.0 F 72 18 80/60 98 11/07/16 15:00 11/07/16 15:00 11/07/16 15:00 11/07/16 15:00 11/07/16 15:00 General appearance: Present: mild distress, A&O X 3, answers questions appropriately - Head Head exam: Present: atraumatic, normocephalic - Eye Eye exam: Present: PERRL, conjuntiva pink, sclera anicteric Pupils: Present: PERRL - Neck Neck exam general surgery: Present: supple, trachea midline. Absent: lymphadenopathy - Respiratory Respiratory exam: Present: CTAB. Absent: accessory muscle use, rales, rhonchi, wheezes - Cardiovascular Cardiovascular exam: Present: RRR, +S1, +S2. Absent: diastolic murmur, gallop, rubs, systolic murmur - GI/Abdominal GI/Abdominal exam: Present: normal bowel sounds, soft, no peritoneal signs. Absent: distended, tenderness - Extremities Exam Extremities exam: Present: warm, radial pulses palpable and symmetrical. Absent : calf tenderness, cyanotic, pedal edema - Neurological Exam Neurological exam: Present: CN II-XII intact, oriented X3, no focal deficits. Absent: pronater drift, facial droop, speech deficit - Skin Skin exam: Present: dry, intact Internal Medicine: Result - Labs CBC & Chem 7: 11/07/16 01:48 11/07/16 01:48 Labs: Short CBC 11/07/16 Range/Units 01:48 WBC 9.0 (4.3-11.1) K/mcL Hgb 13.5 (12.9-16.9) g/dL Hct 39.3 (37.5-50.1) % Plt Count 157 (140-400) K/mcL Neutrophils # 5.9 (1.6-8.9) K/mcL BMP 11/07/16 01:48 Sodium 137 Potassium 4.2 Chloride 105 Carbon Dioxide 24 BUN 29 H D Creatinine 1.51 H D Glucose 123 H Calcium 9.1 Cardiac Enzymes 11/07/16 Range/Units 01:48 Troponin I 20.00 H* (0-0.03) ng/mL Liver Function 11/07/16 Range/Units 01:48 Total Bilirubin 1.0 D (0.2-1.2) mg/dL AST 27 (5-34) Units/L ALT 33 (0-55) Units/L Alkaline Phosphatase 65 (38-126) Units/L Albumin 3.3 L (3.5-5.0) g/dL - ABG Interpretation ABG results: PT/INR, D-dimer PT 11.5 Seconds (9.4-12.1) 11/05/16 04:20 Consult Discharge Plan - Plan Referrals: Lance Cronin MD [Partnered Physician] - 11/09/16 2:15 pm NONE,PCP [Primary Care Provider] -
[2016-11-07] MEDS: Acetaminophen 325 MG TABLET PO PRN (23:37)
[2016-11-08 00:53] LABS: Basophils % 0.4 %; Eosinophils # 0.3 K/mcL (0.0-0.6); Eosinophils % 3.1 %; Hematocrit 36.9 % (37.5-50.1); Hemoglobin 12.6 g/dL (12.9-16.9); Immature Granulocytes % 1.2 % (0-4); Lymphocytes # 1.9 K/mcL (0.6-4.6); Lymphocytes % 21.1 %; Mean Corpuscular HGB Conc 34.1 g/dL (31.6-35.5); Mean Corpuscular Hemoglobin 28.9 pg (28.0-33.3); Mean Corpuscular Volume 84.6 fL (83.0-100.0); Mean Platelet Volume 11.1 fL (9.4-12.4); Monocytes # 0.9 K/mcL (0.0-1.3); Monocytes % 10.3 %; Neutrophils # 5.7 K/mcL (1.6-8.9); Platelet Count 159 K/mcL (140-400); Red Blood Count 4.36 M/mcL (4.19-5.50); Red Cell Distribution Width 13.7 % (11.5-14.5); Segmented Neutrophils % 63.9 %
[2016-11-08 01:07] LABS: Alanine Aminotransferase 28 Units/L (0-55); Albumin 3.2 g/dL (3.5-5.0); Albumin/Globulin Ratio 1.1 (1.1-2.2); Alkaline Phosphatase 63 Units/L (38-126); Aspartate Amino Transferase 21 Units/L (5-34); BUN/Creatinine Ratio 23 (6-26); Bilirubin,Total 1.2 mg/dL (0.2-1.2); Blood Urea Nitrogen 29 mg/dL (8-26); Carbon Dioxide 24 mEq/L (19-29); Chloride 105 mEq/L (98-109); Globulin 2.9 g/dL (2.4-3.5); Glucose 108 mg/dL (70-99); Magnesium 2.2 mg/dL (1.6-2.6); Osmolality,Calculated 288 (280-300); Potassium 4.2 mEq/L (3.5-4.5); Sodium 136 mEq/L (136-145); Total Protein 6.1 g/dL (6.0-8.3); eGFR For African Americans > 60 (> 60); eGFR For Non-African Americans 55 (> 60)
[2016-11-08 01:27] LABS: INR 2.1; Prothrombin Time 22.5 Seconds (9.4-12.1)
[2016-11-08] MEDS: *HR* Morphine 2 MG/ML SYRINGE IVP PRN ×4 (01:55→20:44)
[2016-11-08] MEDS: Pantoprazole 40 MG VIAL IVP SCH (06:18)
[2016-11-08] MEDS: Isosorbide MONOnitrate (24 HR) 30 MG TAB.ER.24H PO SCH (08:59)
[2016-11-08] MEDS: *HR* Ticagrelor 90 MG TABLET PO SCH ×2 (08:59→20:44)
[2016-11-08] MEDS: amLODIPine 5 MG TABLET PO SCH (08:59)
[2016-11-08] MEDS: Insulin LISPRO 300 UNITS/3 ML VIAL SQ SCH ×4 (08:59→20:44)
[2016-11-08] MEDS: Aspirin Enteric Coated 81 MG Tablet PO SCH (08:59)
--- NOTE | 2016-11-08 11:35 | Cardiology Progress Note ---
Date of Encounter: 11/08/16 Time of Encounter: 11:33 Assessment and Plan (1) CAD (coronary artery disease) Current Visit: No Status: Chronic [place] CAD, prior CABG, recent ACS event s/p PCI to RCA, ICMP. Today, denies chest pain. Troponins decreasing compared to recent hospital stay. No new cardiology recommendations. Continue DAPT, ideally for now year without interruption. Continue statin/bb/ACEi therapy. Risk factor modification. Outpatient cardiology followup. Cardiology will sign off. Please call if any questions or concerns. Qualifiers: Coronary Disease-Associated Artery/Lesion type: unspecified vessel or lesion type [place] vs. transplanted heart: [place] heart Associated angina: angina presence unspecified Qualified Code(s): I25.10 - Atherosclerotic heart disease of [place] coronary artery without angina pectoris (2) Elevated troponin Current Visit: No Status: Acute Recent ACS event. Re-admission to hospital, presentation not c/w ACS. Troponin decrease likely related to prior hospital stay. No further recommendations. (3) Paroxysmal a-fib Current Visit: No Status: Chronic Hitory of PAF. HR currently controlled. Recommend continuing Xarelto/BB therapy. Discussed importance of monitoring for bleeding or unusual bruising (on triple therapy). Discussion w patient/family: The assessment and plan as outlined above was discussed with the patient and/or family members who expressed understanding and agreement. All questions were answered. Thank you for involving us in the care of your patient. Please call with any questions. Subjective Principal diagnosis: Chest Pain Interval history: Recent events noted. Known CAD, recent SD, s/p PCI to RCA. Return to hospital. Troponins continue to decrease from prior hospitalization. No chest pain reported. Patient denied any symptoms during my evaluation. Objective Vital Signs, Last 4 Hours Temp Pulse Resp BP Pulse Ox 11/08/16 09:00 97.9 F 64 18 113/69 98 General: Conversant, No Apparent Distress HEENT: Atraumatic, Normocephaly, Mucus Membranes Moist Neck: No JVD, Normal carotid pulses Cardiac: Reg Rate and Rhythm, Normal S1 and S2, No Murmur Lungs: Normal Breath Sounds, No Wheeze, Rales, Rhonchi Neuro: Alert and responsive, No focal deficits noted Abdomen: Soft, Non-Tender Skin: No rashes noted on visualized skin Musculoskeletal: No Chest Wall Tenderness Extremities: No Clubbing, No Cyanosis, No Edema Results 11/08/16 00:45 11/08/16 00:45 Lab Results 11/08/16 11/08/16 11/08/16 00:45 00:45 00:45 WBC 8.9 Hgb 12.6 L Hct 36.9 L Plt Count 159 INR 2.1 D APTT 35.0 Sodium 136 Potassium 4.2 Chloride 105 Carbon Dioxide 24 BUN 29 H Creatinine 1.26 H Glucose 108 H Calcium 9.0 Magnesium 2.2 Total Bilirubin 1.2 AST 21 ALT 28 Alkaline Phosphatase 63 Troponin I 11/08/16 00:45 WBC Hgb Hct Plt Count INR APTT Sodium Potassium Chloride Carbon Dioxide BUN Creatinine Glucose Calcium Magnesium Total Bilirubin AST ALT Alkaline Phosphatase Troponin I 10.30 H* - Imaging and Cardiology Echo: report reviewed Cardiac cath: report reviewed Consult Discharge Plan - Plan Referrals: Lance Cronin MD [Partnered Physician] - 11/09/16 2:15 pm NONE,PCP [Primary Care Provider] -
--- NOTE | 2016-11-08 15:45 | Internal Med Progress Note ---
Date of Encounter: 11/08/16 Time of Encounter: 15:43 - Assessment and plan (1) GERD (gastroesophageal reflux disease) Current Visit: No Status: Chronic Qualifiers: Esophagitis presence: without esophagitis Qualified Code(s): K21.9 - Gastro -esophageal reflux disease without esophagitis (2) Chest pain Current Visit: Yes Status: Acute Qualifiers: Chest pain type: other chest pain Qualified Code(s): R07.89 - Other chest pain; R07.8 - Other chest pain (3) CAD (coronary artery disease) Current Visit: Yes Status: Chronic Qualifiers: Coronary Disease-Associated Artery/Lesion type: unspecified vessel or lesion type [place] vs. transplanted heart: [place] heart Associated angina: angina presence unspecified Qualified Code(s): I25.10 - Atherosclerotic heart disease of [place] coronary artery without angina pectoris (4) Congestive heart failure Current Visit: Yes Status: Chronic Qualifiers: Congestive heart failure type: combined Congestive heart failure chronicity : chronic Qualified Code(s): I50.42 - Chronic combined systolic (congestive) and diastolic (congestive) heart failure (5) IDDM (insulin dependent diabetes mellitus) Current Visit: Yes Status: Chronic (6) Pacemaker Current Visit: Yes Status: Chronic (7) HTN (hypertension) Current Visit: Yes Status: Chronic Qualifiers: Hypertension type: essential hypertension Qualified Code(s): I10 - Essential (primary) hypertension (8) HLD (hyperlipidemia) Current Visit: Yes Status: Chronic Qualifiers: Hyperlipidemia type: pure hypercholesterolemia Qualified Code(s): E78.00 - Pure hypercholesterolemia, unspecified; E78.0 - Pure hypercholesterolemia (9) DVT prophylaxis Current Visit: Yes Status: Acute - Subjective Interval history: Mr. Pizarro is a 75 year old male is well known to us with a history of diabetes, hypertension, CAD S/P stent 3 days ago, ischemic cardiomyopathy with systolic CHF, paroxysmal A. fib on xarelto, present to ER for chest pain. Patient said pain started 3 AM this morning and wakes him up from sleep. Pain is located on the mid chest, radiated to left arm and back. Pain is responding to nitroglycerin. Patient totally has 3 episodes of chest pain, lasts about 30 minutes for each episode. This morning patient has recurrent chest pain 8 out of 10 similar to his angina. His blood pressure is suboptimal in the range of 90/50. He has responded to sublingual nitroglycerin and therefore we plan to start IV nitroglycerin but considering low blood pressure he might need pressure support. He will be transferred to ICU so that if pressor needed those can be started as onto [facility] we cannot use pressors. Cardiology has been updated by nursing. His troponins are actually trending down from his previous heart attack. As noted above he has an ejection fraction of only 35-40% and therefore we have very little to use IV fluid. Cardiology has seen the patient. They think that patient's chest pain is atypical and recommended GI cause.. Patient was treated with the PPI and seems to be doing much better. He will be transferred out of ICU and will be discharged home. - Constitutional Vitals: Temp Pulse Resp BP Pulse Ox 97.5 F L 65 16 97/70 96 11/08/16 11:56 11/08/16 14:57 11/08/16 14:57 11/08/16 14:57 11/08/16 14:57 General appearance: Present: mild distress, A&O X 3, answers questions appropriately - Head Head exam: Present: atraumatic, normocephalic - Eye Eye exam: Present: PERRL, conjuntiva pink, sclera anicteric Pupils: Present: PERRL - Neck Neck exam general surgery: Present: supple, trachea midline. Absent: lymphadenopathy - Respiratory Respiratory exam: Present: CTAB. Absent: accessory muscle use, rales, rhonchi, wheezes - Cardiovascular Cardiovascular exam: Present: RRR, +S1, +S2. Absent: diastolic murmur, gallop, rubs, systolic murmur - GI/Abdominal GI/Abdominal exam: Present: normal bowel sounds, soft, no peritoneal signs. Absent: distended, tenderness - Extremities Exam Extremities exam: Present: warm, radial pulses palpable and symmetrical. Absent : calf tenderness, cyanotic, pedal edema - Neurological Exam Neurological exam: Present: CN II-XII intact, oriented X3, no focal deficits. Absent: pronater drift, facial droop, speech deficit - Skin Skin exam: Present: dry, intact Internal Medicine: Result - Labs CBC & Chem 7: 11/08/16 00:45 11/08/16 00:45 Labs: Short CBC 11/08/16 Range/Units 00:45 WBC 8.9 (4.3-11.1) K/mcL Hgb 12.6 L (12.9-16.9) g/dL Hct 36.9 L (37.5-50.1) % Plt Count 159 (140-400) K/mcL Neutrophils # 5.7 (1.6-8.9) K/mcL BMP 11/08/16 00:45 Sodium 136 Potassium 4.2 Chloride 105 Carbon Dioxide 24 BUN 29 H Creatinine 1.26 H Glucose 108 H Calcium 9.0 Cardiac Enzymes 11/08/16 Range/Units 00:45 Troponin I 10.30 H* (0-0.03) ng/mL Liver Function 11/08/16 Range/Units 00:45 Total Bilirubin 1.2 (0.2-1.2) mg/dL AST 21 (5-34) Units/L ALT 28 (0-55) Units/L Alkaline Phosphatase 63 (38-126) Units/L Albumin 3.2 L (3.5-5.0) g/dL - ABG Interpretation ABG results: PT/INR, D-dimer PT 22.5 Seconds (9.4-12.1) H D 11/08/16 00:45 Consult Discharge Plan - Plan Referrals: Lance Cronin MD [Partnered Physician] - 11/09/16 2:15 pm NONE,PCP [Primary Care Provider] -
[2016-11-08] MEDS: *HR* Rivaroxaban 15 MG TABLET PO SCH (17:40)
[2016-11-08] MEDS: Nitroglycerin 25 MG/250 ML INFUS..BTL IVC SCH (18:33)
[2016-11-09] MEDS: *HR* Morphine 2 MG/ML SYRINGE IVP PRN ×3 (02:00→19:39)
[2016-11-09] MEDS: Insulin LISPRO 300 UNITS/3 ML VIAL SQ SCH ×4 (08:11→19:35)
[2016-11-09] MEDS: amLODIPine 5 MG TABLET PO SCH (08:16)
[2016-11-09] MEDS: *HR* Ticagrelor 90 MG TABLET PO SCH ×2 (08:16→19:39)
[2016-11-09] MEDS: Aspirin Enteric Coated 81 MG Tablet PO SCH (08:17)
[2016-11-09] MEDS: Isosorbide MONOnitrate (24 HR) 30 MG TAB.ER.24H PO SCH (08:17)
[2016-11-09] MEDS: Nitroglycerin 25 MG/250 ML INFUS..BTL IVC SCH (10:58)
[2016-11-09] MEDS: *HR* Rivaroxaban 15 MG TABLET PO SCH (16:42)
[2016-11-09] MEDS: Acetaminophen 325 MG TABLET PO PRN (17:03)
--- NOTE | 2016-11-09 17:05 | Internal Med Progress Note ---
Date of Encounter: 11/09/16 Time of Encounter: 17:03 - Assessment and plan (1) GERD (gastroesophageal reflux disease) Current Visit: Yes Status: Chronic Qualifiers: Esophagitis presence: without esophagitis Qualified Code(s): K21.9 - Gastro -esophageal reflux disease without esophagitis (2) Chest pain Current Visit: Yes Status: Acute Qualifiers: Chest pain type: other chest pain Qualified Code(s): R07.89 - Other chest pain; R07.8 - Other chest pain (3) CAD (coronary artery disease) Current Visit: Yes Status: Chronic Qualifiers: Coronary Disease-Associated Artery/Lesion type: unspecified vessel or lesion type [place] vs. transplanted heart: [place] heart Associated angina: angina presence unspecified Qualified Code(s): I25.10 - Atherosclerotic heart disease of [place] coronary artery without angina pectoris (4) Congestive heart failure Current Visit: Yes Status: Chronic Qualifiers: Congestive heart failure type: combined Congestive heart failure chronicity : chronic Qualified Code(s): I50.42 - Chronic combined systolic (congestive) and diastolic (congestive) heart failure (5) IDDM (insulin dependent diabetes mellitus) Current Visit: Yes Status: Chronic (6) Pacemaker Current Visit: Yes Status: Chronic (7) HTN (hypertension) Current Visit: Yes Status: Chronic Qualifiers: Hypertension type: essential hypertension Qualified Code(s): I10 - Essential (primary) hypertension (8) HLD (hyperlipidemia) Current Visit: Yes Status: Chronic Qualifiers: Hyperlipidemia type: pure hypercholesterolemia Qualified Code(s): E78.00 - Pure hypercholesterolemia, unspecified; E78.0 - Pure hypercholesterolemia (9) DVT prophylaxis Current Visit: Yes Status: Acute - Subjective Interval history: Mr. Pizarro is a 75 year old male is well known to us with a history of diabetes, hypertension, CAD S/P stent 3 days ago, ischemic cardiomyopathy with systolic CHF, paroxysmal A. fib on xarelto, present to ER for chest pain. Patient said pain started 3 AM this morning and wakes him up from sleep. Pain is located on the mid chest, radiated to left arm and back. Pain is responding to nitroglycerin. Patient totally has 3 episodes of chest pain, lasts about 30 minutes for each episode. This morning patient has recurrent chest pain 8 out of 10 similar to his angina. His blood pressure is suboptimal in the range of 90/50. He has responded to sublingual nitroglycerin and therefore we plan to start IV nitroglycerin but considering low blood pressure he might need pressure support. He will be transferred to ICU so that if pressor needed those can be started as onto [facility] we cannot use pressors. Cardiology has been updated by nursing. His troponins are actually trending down from his previous heart attack. As noted above he has an ejection fraction of only 35-40% and therefore we have very little to use IV fluid. Cardiology has seen the patient. They think that patient's chest pain is atypical and recommended GI cause.. Patient was treated with the PPI and seems to be doing much better. Consult GI for possible EGD. - Constitutional Vitals: Temp Pulse Resp BP Pulse Ox 98.1 F 66 20 103/61 96 11/09/16 15:23 11/09/16 12:10 11/09/16 12:10 11/09/16 12:10 11/09/16 04:30 General appearance: Present: mild distress, A&O X 3, answers questions appropriately - Head Head exam: Present: atraumatic, normocephalic - Eye Eye exam: Present: PERRL, conjuntiva pink, sclera anicteric Pupils: Present: PERRL - Neck Neck exam general surgery: Present: supple, trachea midline. Absent: lymphadenopathy - Respiratory Respiratory exam: Present: CTAB. Absent: accessory muscle use, rales, rhonchi, wheezes - Cardiovascular Cardiovascular exam: Present: RRR, +S1, +S2. Absent: diastolic murmur, gallop, rubs, systolic murmur - GI/Abdominal GI/Abdominal exam: Present: normal bowel sounds, soft, no peritoneal signs. Absent: distended, tenderness - Extremities Exam Extremities exam: Present: warm, radial pulses palpable and symmetrical. Absent : calf tenderness, cyanotic, pedal edema - Neurological Exam Neurological exam: Present: CN II-XII intact, oriented X3, no focal deficits. Absent: pronater drift, facial droop, speech deficit - Skin Skin exam: Present: dry, intact Internal Medicine: Result - Labs CBC & Chem 7: 11/08/16 00:45 11/08/16 00:45 - ABG Interpretation ABG results: PT/INR, D-dimer PT 22.5 Seconds (9.4-12.1) H D 11/08/16 00:45 Consult Discharge Plan - Plan Referrals: Lance Cronin MD [Partnered Physician] - 11/09/16 2:15 pm NONE,PCP [Primary Care Provider] -
[2016-11-09] MEDS: Ondansetron 4 MG/2 ML VIAL IVP PRN (19:39)
[2016-11-10] MEDS: *HR* Morphine 2 MG/ML SYRINGE IVP PRN ×5 (03:30→22:38)
[2016-11-10] MEDS: Insulin LISPRO 300 UNITS/3 ML VIAL SQ SCH ×4 (07:30→19:44)
[2016-11-10 08:55] LABS: INR 1.5
[2016-11-10 08:57] LABS: Hematocrit 40.5 % (37.5-50.1); Mean Corpuscular HGB Conc 34.6 g/dL (31.6-35.5); Mean Corpuscular Hemoglobin 29.4 pg (28.0-33.3); Mean Corpuscular Volume 85.1 fL (83.0-100.0); Platelet Count 165 K/mcL (140-400); Red Blood Count 4.76 M/mcL (4.19-5.50); Red Cell Distribution Width 13.8 % (11.5-14.5)
[2016-11-10] MEDS: *HR* Ticagrelor 90 MG TABLET PO SCH ×2 (10:37→19:44)
[2016-11-10] MEDS: Isosorbide MONOnitrate (24 HR) 30 MG TAB.ER.24H PO SCH (10:37)
[2016-11-10] MEDS: amLODIPine 5 MG TABLET PO SCH (10:37)
[2016-11-10] MEDS: Aspirin Enteric Coated 81 MG Tablet PO SCH (10:40)
[2016-11-10] MEDS: Acetaminophen 325 MG TABLET PO PRN ×2 (10:45→19:43)
--- NOTE | 2016-11-10 10:57 | Gastroenterology Consult Note ---
<Mane Reid Leslee - Last Filed: 11/10/16 10:55> Date of Encounter: 11/10/16 Time of Encounter: 10:20 - Assessment and plan (1) GERD (gastroesophageal reflux disease) Current Visit: Yes Status: Chronic Assessment and plan: Continue PPI. Plan for diagnostic EGD tomorrow. Keep patient NPO at midnight. Continue anticoagulation. Use PPI half hour before breakfast or evening meal. Lifestyle modifications include: 1) Elevate the head of the bed on 4"-6" blocks. 2) Exercise/Weight loss 3) Decrease the size of portions at mealtimes. 4) Avoid wearing tight clothing. 5) Avoid recumbency for 3 hours after meals. 6) Avoid bedtime snacks. 7) Avoid fried or fatty foods, chocolate, peppermint, onions, garlic, coffee ( including decaf), carbonated beverages, ketchup/mustards, vinegar, tomato sauce , citrus fruits/juices. 8) Avoid cigarettes and alcohol. 9) Avoid aspirin, anti-inflammatory pain medications other than acetaminophen. Qualifiers: Esophagitis presence: without esophagitis Qualified Code(s): K21.9 - Gastro -esophageal reflux disease without esophagitis (2) Atypical chest pain Current Visit: No Status: Acute Assessment and plan: Likely secondary to GERD. Plan for diagnostic EGD tomorrow. (3) CAD (coronary artery disease) Current Visit: Yes Status: Chronic Qualifiers: Coronary Disease-Associated Artery/Lesion type: unspecified vessel or lesion type [place] vs. transplanted heart: [place] heart Associated angina: angina presence unspecified Qualified Code(s): I25.10 - Atherosclerotic heart disease of [place] coronary artery without angina pectoris (4) Pacemaker Current Visit: Yes Status: Chronic - Time Spent With Patient Total time spent is greater than 50% in coordination of care (as documented) at patient's floor/unit and/or counseling patient: GI History of Present Illness - Data of Consult Patient: new to practice Consult date: 11/10/16 Requesting Physician: Darell Mccann MD - Consult Narrative History of present illness: Mr. Pizarro is a 76 year old male with PMHx of asthma, Afib on Xarelt, CAD s/p stent 3 day prior to admission, ischemic cardiomyopathy, CVA, DM, HTN who presented to the ED with chest pain that woke him up from sleep. He was discharged from the hospital the day before this admission after NSTEMI. Troponins peaked at greater than 50 during acute MA and have been downtrending since that time. Cardiology thinks the chest pain is atypical and recommended GI cause. He was started on PPI and has improved. We have been consulted for possible EGD. INR 11/08 was 2.1 and 1.5 this AM. Procedures: No record NSAIDs: ASA Anticoagulation: Xarelto, Brilinta Past Med Surg Social Fam HX - Past Medical History Medical history: asthma, atrial fibrillation, coronary artery disease, CVA, diabetes, hypertension, myocardial infarction, thyroid disease Psychiatric history: no psych history - Past Surgical History Surgical History: cholecystectomy, coronary bypass (CABG), pacemaker/AICD - Social History Smoking Status: Former smoker Smokeless Tobacco Status: No Alcohol use: none Drug use: none - Family History Grandfather Living Status: Hx Family Cardiac Disorders: Yes Mother Living Status: Hx Family Neurologic Disorders: Yes (CVA) Father Adopted: No Living Status: Hx Family Cardiac Disorders: No Hx Family Respiratory Disorders: No Hx Family Cancer: Yes Hx Family GI Disorders: No Hx Family Endocrine Disorder: No Hx Family Neuromuscular Disorders: No Hx Family Neurologic Disorders: No Hx Family HEENT Disorders: No Hx Family Autoimmune Disorders: No - Gastrointestinal Gastrointestinal: Present: as per HPI - Constitutional Constitutional: as per HPI - EENT Eyes: as per HPI Ears: Present: as per HPI Nose, mouth and throat: Present: as per HPI - Cardiovascular Cardiovascular ROS: Present: as per HPI - Respiratory Respiratory IM: Present: as per HPI - Genitourinary Genitourinary: Absent: change in color, Urinary frequency - Neurological ROS Neurological GI: Present: as per HPI - Hematologic/Lymphatic Hematologic/Lymphatic pediatric: Present: as per HPI - Musculoskeletal Musculoskeletal ROS GI: Present: as per HPI - Integumentary Integumentary GI: Present: as per HPI - Psychiatric ROS Psychiatric GI: Present: as per HPI - Endocrine Endocrine IM: Present: as per HPI - Constitutional Vitals: Temp Pulse Resp BP Pulse Ox 97.7 F 60 14 123/78 100 11/10/16 06:53 11/10/16 06:53 11/10/16 06:53 11/10/16 06:53 11/10/16 06:53 General appearance: Present: cooperative, A&O X 3, no acute distress, answers questions appropriately - Head Head exam: Present: atraumatic, normocephalic - Eye Eye exam: Present: normal appearance, sclera anicteric - ENT ENT exam: Present: mucous membranes dry - Neck Neck exam general surgery: Present: normal inspection, trachea midline - Respiratory Respiratory exam: Present: decreased breath sounds, CTAB. Absent: rales, rhonchi - Cardiovascular Cardiovascular exam: Present: RRR, +S1, +S2 - GI/Abdominal GI/Abdominal exam: Present: soft, no peritoneal signs. Absent: distended, firm , guarding, tenderness - Rectal Rectal exam: Present: deferred - Extremities Exam Extremities exam: Present: warm - Neurological Exam Neurological exam: Present: no focal deficits - Psychiatric Psychiatric exam: Present: normal affect, normal mood - Skin Skin exam: Present: dry, intact, normal color, warm Results - Labs CBC & Chem 7: 11/10/16 08:42 11/08/16 00:45 Labs: Last Result Calcium 9.0 mg/dL (8.6-10.8) 11/08/16 00:45 Troponin I 10.30 ng/mL (0-0.03) H* 11/08/16 00:45 Entire Visit Hgb 14.0 g/dL (12.9-16.9) 11/10/16 08:42 Hct 40.5 % (37.5-50.1) 11/10/16 08:42 PT 16.0 Seconds (9.4-12.1) H 11/10/16 08:42 Total Bilirubin 1.2 mg/dL (0.2-1.2) 11/08/16 00:45 AST 21 Units/L (5-34) 11/08/16 00:45 ALT 28 Units/L (0-55) 11/08/16 00:45 Amylase 42 Units/L (25-125) 11/06/16 14:12 Lipase 19 Units/L (8-78) 11/06/16 14:12 - ABG ABG results: PT/INR, D-dimer PT 16.0 Seconds (9.4-12.1) H 11/10/16 08:42 Consult Discharge Plan - Plan Referrals: Lance Cronin MD [Partnered Physician] - 11/09/16 2:15 pm NONE,PCP [Primary Care Provider] - <Ariadna Angulo - Last Filed: 11/10/16 18:09> Date of Encounter: 11/10/16 Time of Encounter: 17:30 - Time Spent With Patient Total time spent is greater than 50% in coordination of care (as documented) at patient's floor/unit and/or counseling patient: GI History of Present Illness - Data of Consult Requesting Physician: Darell Mccann MD - Consult Narrative History of present illness: Mr. Pizarro is a 76 year old male - Constitutional Vitals: Temp Pulse Resp BP Pulse Ox 98.4 F 68 14 108/69 96 11/10/16 15:52 11/10/16 15:52 11/10/16 15:52 11/10/16 15:52 11/10/16 15:52 Results - Labs CBC & Chem 7: 11/10/16 08:42 11/08/16 00:45 Labs: Last Result Calcium 9.0 mg/dL (8.6-10.8) 11/08/16 00:45 Troponin I 10.30 ng/mL (0-0.03) H* 11/08/16 00:45 Entire Visit Hgb 14.0 g/dL (12.9-16.9) 11/10/16 08:42 Hct 40.5 % (37.5-50.1) 11/10/16 08:42 PT 16.0 Seconds (9.4-12.1) H 11/10/16 08:42 Total Bilirubin 1.2 mg/dL (0.2-1.2) 11/08/16 00:45 AST 21 Units/L (5-34) 11/08/16 00:45 ALT 28 Units/L (0-55) 11/08/16 00:45 Amylase 42 Units/L (25-125) 11/06/16 14:12 Lipase 19 Units/L (8-78) 11/06/16 14:12 - ABG ABG results: PT/INR, D-dimer PT 16.0 Seconds (9.4-12.1) H 11/10/16 08:42 - Attending Attestation I examined this patient and my medical decision-making was reviewed with the Resident Physician. I agree with the documented findings, disposition and treatment plan as described except to the extent set forth below. Patient complaining of epigastric and central chest pain. On palpation does has tenderness of the chest wall. Discussed with Dr. Herrera and from cardic point of few is okay to have a EGD done in am. Continue anticoagulants and patient will have a diagnostic EGD done in the morning
--- NOTE | 2016-11-10 16:28 | Internal Med Progress Note ---
Date of Encounter: 11/10/16 Time of Encounter: 16:28 - Assessment and plan (1) GERD (gastroesophageal reflux disease) Current Visit: Yes Status: Chronic Qualifiers: Esophagitis presence: without esophagitis Qualified Code(s): K21.9 - Gastro -esophageal reflux disease without esophagitis (2) Chest pain Current Visit: Yes Status: Acute Qualifiers: Chest pain type: other chest pain Qualified Code(s): R07.89 - Other chest pain; R07.8 - Other chest pain (3) CAD (coronary artery disease) Current Visit: Yes Status: Chronic Qualifiers: Coronary Disease-Associated Artery/Lesion type: unspecified vessel or lesion type [place] vs. transplanted heart: [place] heart Associated angina: angina presence unspecified Qualified Code(s): I25.10 - Atherosclerotic heart disease of [place] coronary artery without angina pectoris (4) Congestive heart failure Current Visit: Yes Status: Chronic Qualifiers: Congestive heart failure type: combined Congestive heart failure chronicity : chronic Qualified Code(s): I50.42 - Chronic combined systolic (congestive) and diastolic (congestive) heart failure (5) IDDM (insulin dependent diabetes mellitus) Current Visit: Yes Status: Chronic (6) Pacemaker Current Visit: Yes Status: Chronic (7) HTN (hypertension) Current Visit: Yes Status: Chronic Qualifiers: Hypertension type: essential hypertension Qualified Code(s): I10 - Essential (primary) hypertension (8) HLD (hyperlipidemia) Current Visit: Yes Status: Chronic Qualifiers: Hyperlipidemia type: pure hypercholesterolemia Qualified Code(s): E78.00 - Pure hypercholesterolemia, unspecified; E78.0 - Pure hypercholesterolemia (9) DVT prophylaxis Current Visit: Yes Status: Acute - Subjective Interval history: Mr. Pizarro is a 75 year old male is well known to us with a history of diabetes, hypertension, CAD S/P stent 3 days ago, ischemic cardiomyopathy with systolic CHF, paroxysmal A. fib on xarelto, present to ER for chest pain. Patient said pain started 3 AM this morning and wakes him up from sleep. Pain is located on the mid chest, radiated to left arm and back. Pain is responding to nitroglycerin. Patient totally has 3 episodes of chest pain, lasts about 30 minutes for each episode. This morning patient has recurrent chest pain 8 out of 10 similar to his angina. His blood pressure is suboptimal in the range of 90/50. He has responded to sublingual nitroglycerin and therefore we plan to start IV nitroglycerin but considering low blood pressure he might need pressure support. He will be transferred to ICU so that if pressor needed those can be started as onto [facility] we cannot use pressors. Cardiology has been updated by nursing. His troponins are actually trending down from his previous heart attack. As noted above he has an ejection fraction of only 35-40% and therefore we have very little to use IV fluid. Cardiology has seen the patient. They think that patient's chest pain is atypical and recommended GI cause.. Patient was treated with the PPI and seems to be doing much better. Consult GI for possible EGD. - Constitutional Vitals: Temp Pulse Resp BP Pulse Ox 98.4 F 68 14 108/69 96 11/10/16 15:52 11/10/16 15:52 11/10/16 15:52 11/10/16 15:52 11/10/16 15:52 General appearance: Present: mild distress, A&O X 3, answers questions appropriately - Head Head exam: Present: atraumatic, normocephalic - Eye Eye exam: Present: PERRL, conjuntiva pink, sclera anicteric Pupils: Present: PERRL - Neck Neck exam general surgery: Present: supple, trachea midline. Absent: lymphadenopathy - Respiratory Respiratory exam: Present: CTAB. Absent: accessory muscle use, rales, rhonchi, wheezes - Cardiovascular Cardiovascular exam: Present: RRR, +S1, +S2. Absent: diastolic murmur, gallop, rubs, systolic murmur - GI/Abdominal GI/Abdominal exam: Present: normal bowel sounds, soft, no peritoneal signs. Absent: distended, tenderness - Extremities Exam Extremities exam: Present: warm, radial pulses palpable and symmetrical. Absent : calf tenderness, cyanotic, pedal edema - Neurological Exam Neurological exam: Present: CN II-XII intact, oriented X3, no focal deficits. Absent: pronater drift, facial droop, speech deficit - Skin Skin exam: Present: dry, intact Internal Medicine: Result - Labs CBC & Chem 7: 11/10/16 08:42 11/08/16 00:45 Labs: Short CBC 11/10/16 Range/Units 08:42 WBC 8.6 (4.3-11.1) K/mcL Hgb 14.0 (12.9-16.9) g/dL Hct 40.5 (37.5-50.1) % Plt Count 165 (140-400) K/mcL - ABG Interpretation ABG results: PT/INR, D-dimer PT 16.0 Seconds (9.4-12.1) H 11/10/16 08:42 Consult Discharge Plan - Plan Referrals: Lance Cronin MD [Partnered Physician] - 11/09/16 2:15 pm NONE,PCP [Primary Care Provider] -
[2016-11-10] MEDS: *HR* Rivaroxaban 15 MG TABLET PO SCH (16:31)
[2016-11-10] MEDS: Ondansetron 4 MG/2 ML VIAL IVP PRN (18:37)
[2016-11-11] MEDS: Acetaminophen 325 MG TABLET PO PRN ×2 (06:04→16:16)
[2016-11-11] MEDS: Insulin LISPRO 300 UNITS/3 ML VIAL SQ SCH ×3 (10:35→16:57)
--- NOTE | 2016-11-11 13:55 | Anesthesia Evaluation PreOp ---
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: CVA Other Medical History: Diabetes Type I, GERD Anesthesia History: No Prior Anesthetic Complications, Past Anesthesia Alcohol Use: none Drug use: none Medications and Allergies Aspirin Enteric Coated [Aspirin EC] 81 mg PO DAILY #30 tablet.dr 02/21/16 [Rx] Furosemide [Lasix] 40 mg PO DAILY #30 tablet 02/21/16 [Rx] Nitroglycerin [Nitrostat] 0.4 mg SL Q5M PRN 10/01/16 [History] amLODIPine [Norvasc] 10 mg PO DAILY #30 tab 10/05/16 [Rx] Atorvastatin [Lipitor] 40 mg PO HS #30 tablet 11/04/16 [Rx] Carvedilol [Coreg] 3.125 mg PO BIDWM 30 Days 11/04/16 [Rx] Isosorbide MONOnitrate (24 HR) [Imdur] 90 mg PO DAILY #30 11/04/16 [Rx] Lisinopril [Zestril] 2.5 mg PO DAILY #30 tab 11/04/16 [Rx] Omeprazole [PriLOSEC] 20 mg PO BIDAC #60 11/04/16 [Rx] Rivaroxaban [Xarelto] 15 mg PO 1700 #30 tab 11/04/16 [Rx] Ticagrelor [Brilinta] 90 mg PO BID 30 Days 11/04/16 [Rx] metFORMIN [Glucophage] 500 mg PO BIDWM 30 Days 11/04/16 [Rx] 3 Allergy/AdvReac Type Severity Reaction Status Date / Time Oxycodone [From Percocet] Allergy Hives Verified 10/19/16 17:21 tramadol Allergy Hives Verified 10/19/16 17:21 - Meds/Allergy Pre-op Review Medications Reviewed: Yes Allergies Reviewed: Yes Beta Blockers on Current Med List: Yes If Beta Blockers taken, Date/Time (Last Dose taken): 11/10/2016 at 1630 Anesthesia Results - Labs 11/10/16 08:42 11/08/16 00:45 - Imaging EKG: report reviewed (11/06/2016 ELECTRONIC VENTRICULAR PACEMAKER) Additional studies: 11/03/2016 Echo Impressions: LVEF 35-40%. Global LV systolic dysfunction with regional variations in the inferior wall. There is evidence of mild diastolic dysfunction of the left ventricle. Atypical septal motion. Normal RV size. Probably mild reduction in function. No significant valvular dysfunction. No pulmonary hypertension. 11/02/2016 CORONARY ANGIOGRAPHY W/ GRAFTS PCI of Acute OR Impressions: Acute OR due to acute stent thrombosis of ostial RCA stent. Vessel subtotally occluded with large thrombus burden. Triple vessel disease. S/P CABG 2 of 2 patent bypass grafts. Patient had successful PTCA/Drug-Eluting Stent placement in the RCA. 06/15/2016 Stress Impression: Patient reported mild-moderate chest pain prior to the study. No change in chest pain with regadenoson. Pharmacologic stress ECG is non-diagnostic for ischemia due to v-paced rhythm. Gated LVEF = 39%. There is small, moderate-severe intensity, fixed perfusion defect in the LV apex. Findings are consistent with a small apical myocardial infarction. There is no evidence of reversible myocardial ischemia. Anesthesia Exam Vital Signs/O2 Sat/Glucose, Most Recent Temp Pulse Resp BP Pulse Ox 97.7 F 62 14 128/79 98 11/11/16 13:28 11/11/16 13:28 11/11/16 13:28 11/11/16 13:28 11/11/16 13:28 Blood Glucose* 126 Height: 5'10''/1.78 m Weight: 185 lbs/84 kg NPO (# of Hours): 8 Pain Scale: 0 Pain Scale Used: Numeric (1 - 10) - HEENT Pupil (Motor): EOMI Mallampati: II Teeth: Normal Oral Opening: Greater than 3 - HAND PLUG SHAPER LOC: Oriented HAND PLUG SHAPER Motor: Normal RUE, Normal LUE, Normal RLE, Normal LLE, Normal Face HAND PLUG SHAPER Sensory: Normal: RUE, LUE, RLE, LLE, Face - Cardiac Rhythm: Regular Murmur: None - Pulmonary Breath Sounds: bilateral Clear Respiratory Effort: Symmetrical Anesthesia Assess/Plan ASA Score: 4 (Patient understands that he is at increased risk for perioperative complications including myocardial infarct, arrhythmias, CVA, post op vent support/ICU stay, and . Patient wishes to proceed.) Modified Liss Scale for Level of Consciousness: Cooperative, oriented, and tranquil Anesthetic Plan: MAC Monitoring Plan: Standard Monitors
[2016-11-11] MEDS ORDERED: *HR* Etomidate 20 MG/10 ML AMPUL IVP ONE (14:55)
[2016-11-11 15:49] VITALS: BP 140/86
[2016-11-11] MEDS: *HR* Rivaroxaban 15 MG TABLET PO SCH (16:20)
[2016-11-11] MEDS: Isosorbide MONOnitrate (24 HR) 30 MG TAB.ER.24H PO SCH (16:20)
[2016-11-11] MEDS: amLODIPine 5 MG TABLET PO SCH (16:20)
[2016-11-11] MEDS: Aspirin Enteric Coated 81 MG Tablet PO SCH (16:22)
[2016-11-11] MEDS: *HR* Ticagrelor 90 MG TABLET PO SCH (16:22)
--- NOTE | 2016-11-11 16:59 | Discharge Summary ---
Date of Encounter: 11/11/16 Time of Encounter: 16:56 - Discharge Diagnosis (1) Chest pain Priority: Primary Status: Acute Qualifiers: Chest pain type: other chest pain Qualified Code(s): R07.89 - Other chest pain; R07.8 - Other chest pain (2) GERD (gastroesophageal reflux disease) Priority: Secondary Status: Chronic Qualifiers: Esophagitis presence: without esophagitis Qualified Code(s): K21.9 - Gastro -esophageal reflux disease without esophagitis (3) CAD (coronary artery disease) Priority: Secondary Status: Chronic Qualifiers: Coronary Disease-Associated Artery/Lesion type: unspecified vessel or lesion type [place] vs. transplanted heart: [place] heart Associated angina: angina presence unspecified Qualified Code(s): I25.10 - Atherosclerotic heart disease of [place] coronary artery without angina pectoris (4) Congestive heart failure Priority: Secondary Status: Chronic Qualifiers: Congestive heart failure type: combined Congestive heart failure chronicity : chronic Qualified Code(s): I50.42 - Chronic combined systolic (congestive) and diastolic (congestive) heart failure (5) IDDM (insulin dependent diabetes mellitus) Priority: Secondary Status: Chronic (6) Pacemaker Priority: Secondary Status: Chronic (7) HTN (hypertension) Priority: Secondary Status: Chronic Qualifiers: Hypertension type: essential hypertension Qualified Code(s): I10 - Essential (primary) hypertension (8) HLD (hyperlipidemia) Priority: Secondary Status: Chronic Qualifiers: Hyperlipidemia type: pure hypercholesterolemia Qualified Code(s): E78.00 - Pure hypercholesterolemia, unspecified; E78.0 - Pure hypercholesterolemia (9) DVT prophylaxis Priority: Secondary Status: Acute - Discharge Medications Prescriptions: Isosorbide MONOnitrate (24 HR) [Imdur] 120 mg PO DAILY #30 tab Home Medications: Aspirin Enteric Coated [Aspirin EC] 81 mg PO DAILY #30 tablet.dr 02/21/16 [Rx] Furosemide [Lasix] 40 mg PO DAILY #30 tablet 02/21/16 [Rx] Nitroglycerin [Nitrostat] 0.4 mg SL Q5M PRN 10/01/16 [History] amLODIPine [Norvasc] 10 mg PO DAILY #30 tab 10/05/16 [Rx] Atorvastatin [Lipitor] 40 mg PO HS #30 tablet 11/04/16 [Rx] Carvedilol [Coreg] 3.125 mg PO BIDWM 30 Days 11/04/16 [Rx] Lisinopril [Zestril] 2.5 mg PO DAILY #30 tab 11/04/16 [Rx] Omeprazole [PriLOSEC] 20 mg PO BIDAC #60 11/04/16 [Rx] Rivaroxaban [Xarelto] 15 mg PO 1700 #30 tab 11/04/16 [Rx] Ticagrelor [Brilinta] 90 mg PO BID 30 Days 11/04/16 [Rx] metFORMIN [Glucophage] 500 mg PO BIDWM 30 Days 11/04/16 [Rx] Isosorbide MONOnitrate (24 HR) [Imdur] 120 mg PO DAILY #30 tab 11/11/16 [Rx] Allergies/Adverse Reactions: 3 Allergy/AdvReac Type Severity Reaction Status Date / Time Oxycodone [From Percocet] Allergy Hives Verified 10/19/16 17:21 tramadol Allergy Hives Verified 10/19/16 17:21 Date of admission: 11/08/16 15:40 Primary care physician: PCP NONE Consults: 11/09/16 10:22 Consult to Gastroenterology [CONS] Routine Consulting Provider: Gastroenterology Denise Reason for Consult: GERD recurrent chest pain question needing EGD Time Notified: 10:22 Call Completed: No Discharging clinician: Darell Mccann Anticipated date of discharge: 11/11/16 - Patient Status Disposition: Home, Self-Care Condition: Fair Overall status at discharge: patient is progressing back to baseline - Discharge Instructions Follow Up With: Lance Cronin MD [Partnered Physician] - 11/17/16 2:15 pm NONE,PCP [Primary Care Provider] - - Diet and Activity Activity: resume usual activities as tolerated Diet: advance to your usual diet Hospital course: MMr. Pizarro is a 75 year old male is well known to us with a history of diabetes, hypertension, CAD S/P stent 3 days ago, ischemic cardiomyopathy with systolic CHF, paroxysmal A. fib on xarelto, present to ER for chest pain. Patient came in with chest pain while his troponin noted to be declining from previous LA. He was observed in ICU as recently he had an incident in which his stent got clogged and he underwent emergency car catheterization. However however this time cardiac examination and testing was unremarkable. Cardiology raise a question if his symptoms are related to GI cause. Gastroenterology was consulted. Patient underwent EGD which is reported negative. Patient will be discharged home on increased dose of Imdur. - Time Spent with Patient Total time spent providing and/or coordinating discharge services: Greater than 30 minutes - Constitutional Vitals: Temp Pulse Resp BP Pulse Ox 97.8 F 74 14 140/86 96 11/11/16 15:45 11/11/16 15:45 11/11/16 15:45 11/11/16 15:45 11/11/16 15:45 General appearance: Present: mild distress, A&O X 3, answers questions appropriately - Head Head exam: Present: atraumatic, normocephalic - Eye Eye exam: Present: PERRL, conjuntiva pink, sclera anicteric Pupils: Present: PERRL - Neck Neck exam general surgery: Present: supple, trachea midline. Absent: lymphadenopathy - Respiratory Respiratory exam: Present: CTAB. Absent: accessory muscle use, rales, rhonchi, wheezes - Cardiovascular Cardiovascular exam: Present: RRR, +S1, +S2. Absent: diastolic murmur, gallop, rubs, systolic murmur - GI/Abdominal GI/Abdominal exam: Present: normal bowel sounds, soft, no peritoneal signs. Absent: distended, tenderness - Extremities Exam Extremities exam: Present: warm, radial pulses palpable and symmetrical. Absent : calf tenderness, cyanotic, pedal edema - Neurological Exam Neurological exam: Present: CN II-XII intact, oriented X3, no focal deficits. Absent: pronater drift, facial droop, speech deficit - Skin Skin exam: Present: dry, intact
--- NOTE | 2016-11-11 18:10 | Physician Discharge Referral ---
Home Health/Hosp Referral Info Transfer to: Home Health Attending Provider: talita Provider in Charge Post Discharge: PCP - Diagnosis (1) Chest pain Status: Acute (2) GERD (gastroesophageal reflux disease) Status: Chronic (3) CAD (coronary artery disease) Status: Chronic (4) Congestive heart failure Status: Chronic (5) IDDM (insulin dependent diabetes mellitus) Status: Chronic (6) Pacemaker Status: Chronic (7) HTN (hypertension) Status: Chronic (8) HLD (hyperlipidemia) Status: Chronic (9) DVT prophylaxis Status: Acute - Respiratory Orders Smoking Cessation: Smoking cessation has been advised. For more information, call the [place] Tobacco Quit Line at 1-076-ZQZE-NOW. - Diet/Nutrition Diet/Nutrition Orders: Cardiac - Activity Activity Orders: Ambulate - Services Needed Following services are medically necessary services: Nursing, Home Health Aide, Physical Therapy, Occupational Therapy - Transfer Medications Prescriptions: Isosorbide MONOnitrate (24 HR) [Imdur] 120 mg PO DAILY #30 tab Home Medications: Aspirin Enteric Coated [Aspirin EC] 81 mg PO DAILY #30 tablet. 02/21/16 [Rx] Furosemide [Lasix] 40 mg PO DAILY #30 tablet 02/21/16 [Rx] Nitroglycerin [Nitrostat] 0.4 mg SL Q5M PRN 10/01/16 [History] amLODIPine [Norvasc] 10 mg PO DAILY #30 tab 10/05/16 [Rx] Atorvastatin [Lipitor] 40 mg PO HS #30 tablet 11/04/16 [Rx] Carvedilol [Coreg] 3.125 mg PO BIDWM 30 Days 11/04/16 [Rx] Lisinopril [Zestril] 2.5 mg PO DAILY #30 tab 11/04/16 [Rx] Omeprazole [PriLOSEC] 20 mg PO BIDAC #60 11/04/16 [Rx] Rivaroxaban [Xarelto] 15 mg PO 1700 #30 tab 11/04/16 [Rx] Ticagrelor [Brilinta] 90 mg PO BID 30 Days 11/04/16 [Rx] metFORMIN [Glucophage] 500 mg PO BIDWM 30 Days 11/04/16 [Rx] Isosorbide MONOnitrate (24 HR) [Imdur] 120 mg PO DAILY #30 tab 08/24/17 [Rx] Allergies/Adverse Reactions: 3 Allergy/AdvReac Type Severity Reaction Status Date / Time Oxycodone [From Percocet] Allergy Hives Verified 10/19/16 17:21 tramadol Allergy Hives Verified 10/19/16 17:21 Certification: Further, I certify that my clinical findings support that this patient is homebound (i.e. absences from home require considerable and taxing effort and are for medical reasons or druze services or infrequently or short duration when for other reasons) because: Homebound Reason: Severity of cardiac or pulmonary status limits activity tolerance Attestation: My signature below is to certify that this patient is under my care and that I, or nurse practitioner, or a physician's technical support assistant working with me, has a face-to -face encounter with this patient.
[2016-11-11] MEDS ORDERED: *HR* Propofol 200 MG/20 ML VIAL IVP ONE (18:44)
[2016-11-11] MEDS ORDERED: Lidocaine -MPF 2% 5 ML VIAL INFILT ONE (18:44)
== END 2016-11-11 18:45 | disposition home health service (06) | DRG 281 ==
LOC: EMEROO 04:12 → 2NENU 04:12 → ICNU 11-06 10:08 → 2NENU 11-09 23:02
PROVIDERS: ADMIT Internal Medicine; ATTEND Internal Medicine

== ENCOUNTER 2016-11-14 10:32 | Inpatient (IN) ==
--- NOTE | 2016-11-14 10:47 | Emergency Department Note ---
Disposition Clinical Impression: Hematuria, Lightheaded Disposition: Admitted As Inpatient Condition: Good General Adult HPI - General Chief complaint: ED Urogenital-Male Stated complaint: blood in urine Time Seen by Provider: 11/14/16 10:34 Source: patient Limitations: no limitations - History of Present Illness Pain Scale: 8 - Related Data Home Medications Medication Instructions Recorded Confirmed Nitroglycerin [Nitrostat] 0.4 mg SL Q5M PRN 10/01/16 11/14/16 Ascorbate Calcium [Vitamin C] 500 mg PO DAILY 11/14/16 11/14/16 Cyanocobalamin (Vitamin B-12) 1,000 mcg PO DAILY 11/14/16 11/14/16 [Vitamin B12] Multivitamin [One Daily Essential] 1 tab PO DAILY 11/14/16 11/14/16 metFORMIN [Glucophage] 500 mg PO BID 11/14/16 11/14/16 Previous Rx's Medication Instructions Recorded Aspirin Enteric Coated [Aspirin EC] 81 mg PO DAILY #30 tablet. 02/21/16 Furosemide [Lasix] 40 mg PO DAILY #30 tablet 02/21/16 amLODIPine [Norvasc] 10 mg PO DAILY #30 tab 10/05/16 Atorvastatin [Lipitor] 40 mg PO HS #30 tablet 11/04/16 Carvedilol [Coreg] 3.125 mg PO BIDWM 30 Days 11/04/16 Lisinopril [Zestril] 2.5 mg PO DAILY #30 tab 11/04/16 Omeprazole [PriLOSEC] 20 mg PO BIDAC #60 11/04/16 Ticagrelor [Brilinta] 90 mg PO BID 30 Days 11/04/16 Isosorbide MONOnitrate (24 HR) 120 mg PO DAILY #30 tab 11/11/16 [Imdur] Allergies Allergy/AdvReac Type Severity Reaction Status Date / Time Oxycodone [From Percocet] Allergy Hives Verified 10/19/16 17:21 tramadol Allergy Hives Verified 10/19/16 17:21 Past Medical History - Past Medical History Medical history: Reports: asthma, atrial fibrillation, coronary artery disease, CVA, diabetes, hypertension, myocardial infarction, thyroid disease Surgical history: Reports: cholecystectomy, coronary bypass (CABG), pacemaker/ AICD Psychiatric history: Reports: no psych history - Social History Smoking Status: Never smoker Smokeless Tobacco Status: No Alcohol use: Reports: none Drug use: Reports: none Physical Exam - General Limitations: no limitations General appearance: alert, in no apparent distress Course Vital Signs Temperature 97.2 F L 11/14/16 10:36 Pulse Rate 78 11/14/16 10:36 Respiratory Rate 16 11/14/16 10:36 Blood Pressure 155/80 11/14/16 10:36 O2 Sat by Pulse Oximetry 98 11/14/16 10:36 Temperature 97.5 F L 11/14/16 14:32 Pulse Rate 80 11/14/16 14:32 Respiratory Rate 18 11/14/16 14:32 Blood Pressure 169/88 11/14/16 14:32 O2 Sat by Pulse Oximetry 99 11/14/16 14:32 Oxygen Delivery Oxygen Delivery Room Air Medical Decision Making - Lab Data Result diagrams: 11/14/16 11:09 11/14/16 11:09 Lab Results 11/14/16 11/14/16 11/14/16 Range/Units 11:09 11:09 12:15 WBC 9.5 (4.3-11.1) K/mcL RBC 4.25 (4.19-5.50) M/mcL Hgb 12.4 L (12.9-16.9) g/dL Hct 36.4 L (37.5-50.1) % MCV 85.6 (83.0-100.0) fL MCH 29.2 (28.0-33.3) pg MCHC 34.1 (31.6-35.5) g/dL RDW 14.1 (11.5-14.5) % Plt Count 162 (140-400) K/mcL MPV 11.2 (9.4-12.4) fL Immature Gran % 0.3 (0-4) % Seg Neutrophils % 78.5 % Lymphocytes % 12.7 % Monocytes % 6.7 % Eosinophils % 1.3 % Basophils % 0.5 % Neutrophils # 7.5 (1.6-8.9) K/mcL Lymphocytes # 1.2 (0.6-4.6) K/mcL Monocytes # 0.6 (0.0-1.3) K/mcL Eosinophils # 0.1 (0.0-0.6) K/mcL Basophils # 0.1 (0.0-0.2) K/mcL Sodium 138 (136-145) mEq/L Potassium 3.7 (3.5-4.5) mEq/L Chloride 106 (98-109) mEq/L Carbon Dioxide 24 (19-29) mEq/L BUN 22 (8-26) mg/dL Creatinine 1.09 (0.72-1.25) mg/dL Est GFR ( Amer) > 60 (> 60) Est GFR (Non-Af Amer) > 60 (> 60) BUN/Creatinine Ratio 20 (6-26) Glucose 251 H (70-99) mg/dL Calculated Osmolality 298 (280-300) Calcium 9.7 (8.6-10.8) mg/dL Ur Specimen Adequacy See below A Urine Color Yellow (Yellow) Urine Clarity Cloudy A (Clear) Urine pH 7.0 (5.0-8.0) pH Units Ur Specific [place] 1.028 H (1.010-1.025) Urine Protein >=300 H (Neg-Trace) mg/dL Urine Glucose (UA) >=1000 H (Normal) mg/dL Urine Ketones Negative (Negative) mg/dL Urine Blood Large H (Negative) Urine Nitrite Negative (Negative) Urine Bilirubin Negative (Negative) Urine Urobilinogen Normal (Normal) mg/dL Ur Leukocyte Esterase Trace H (Negative) Ur Culture Indicated? YES A (NO) Attestation Statement - Attestation Attestation: I examined this patient and my medical decision-making was reviewed with the Resident Physician. I agree with the documented findings, disposition and treatment plan as described except to the extent set forth below. [id number] time provided Patient presents via EMS for painless hematuria. He takes brillinta. He recently had an indwelling Wang catheter placed. Collection appliance full of dark bloody-colored urine. Patient appears distress on exam
[2016-11-14] MEDS ORDERED: 0.9 % Sodium Chloride 1,000 ML IVC ONE (10:51)
--- NOTE | 2016-11-14 11:02 | Emergency Department Note ---
Disposition Clinical Impression: Lightheaded Hematuria Qualifiers: Hematuria type: gross Qualified Code(s): R31.0 - Gross hematuria Disposition: Admitted As Inpatient Condition: Good Referrals: NONE,PCP [Primary Care Provider] - Forms: ED Satisfaction Letter, Work/School Release Time of Disposition: 12:46 Male Urogenital HPI - General Chief complaint: ED Urogenital-Male Stated complaint: blood in urine Time Seen by Provider: 11/14/16 10:34 Source: patient Mode of arrival: EMS Limitations: no limitations Nursing Notes Reviewed: Yes Vital Signs Reviewed: Yes - History of Present Illness HPI Narrative: Patient presents to the ED with painful hematuria. Patient seen and evaluated in our emergency department yesterday, diagnosed with urinary retention and hematuria. A Wang catheter was placed and he was discharged home with follow-up to his primary care physician and urology. Patient states that since then he has had nothing but blood in his Wang bag. He is changed it twice this morning and both have been full of blood with some clots. States he has felt weak, dizzy and lightheaded and is almost passed out. No chest pain or shortness of breath. No nausea or vomiting but he has had some diffuse intermittent crampy lower abdominal pain that is progressively worsening. No melena or hematochezia. No fever - Related Data Home Medications Medication Instructions Recorded Confirmed Nitroglycerin [Nitrostat] 0.4 mg SL Q5M PRN 10/01/16 11/05/16 Previous Rx's Medication Instructions Recorded Aspirin Enteric Coated [Aspirin EC] 81 mg PO DAILY #30 tablet. 02/21/16 Furosemide [Lasix] 40 mg PO DAILY #30 tablet 02/21/16 amLODIPine [Norvasc] 10 mg PO DAILY #30 tab 10/05/16 Atorvastatin [Lipitor] 40 mg PO HS #30 tablet 11/04/16 Carvedilol [Coreg] 3.125 mg PO BIDWM 30 Days 11/04/16 Lisinopril [Zestril] 2.5 mg PO DAILY #30 tab 11/04/16 Omeprazole [PriLOSEC] 20 mg PO BIDAC #60 11/04/16 Rivaroxaban [Xarelto] 15 mg PO 1700 #30 tab 11/04/16 Ticagrelor [Brilinta] 90 mg PO BID 30 Days 11/04/16 metFORMIN [Glucophage] 500 mg PO BIDWM 30 Days 11/04/16 Isosorbide MONOnitrate (24 HR) 120 mg PO DAILY #30 tab 11/11/16 [Imdur] Allergies Allergy/AdvReac Type Severity Reaction Status Date / Time Oxycodone [From Percocet] Allergy Hives Verified 10/19/16 17:21 tramadol Allergy Hives Verified 10/19/16 17:21 All systems ED: reviewed and negative except as stated. Constitutional: Denies: fever Cardiovascular: Denies: chest pain Gastrointestinal: Reports: abdominal pain. Denies: vomiting Genitourinary: Reports: hematuria Past Medical History - Past Medical History Attestation: Yes The following information was validated with the patient. Source: patient Medical history: Reports: asthma, atrial fibrillation, coronary artery disease, CVA, diabetes, hypertension, myocardial infarction, thyroid disease Surgical history: Reports: cholecystectomy, coronary bypass (CABG), pacemaker/ AICD Psychiatric history: Reports: no psych history - Social History Smoking Status: Never smoker Smokeless Tobacco Status: No Alcohol use: Reports: none Drug use: Reports: none Physical Exam - General Limitations: no limitations General appearance: alert, in no apparent distress - Head Head exam: normal inspection - Eye Eye exam: Present: normal appearance - ENT ENT exam: normal exam, normal oropharynx, mucous membranes moist, normal external ear exam - Neck Neck exam: Present: normal inspection, full ROM, trachea midline - Chest Chest inspection: Present: normal inspection, symmetric chest wall rise - Respiratory Respiratory exam: Present: normal lung sounds bilaterally - Cardiovascular Cardiovascular exam: Present: regular rate, normal rhythm, normal heart sounds - Abdominal Exam Abdominal Exam: Present: soft, tenderness, other (Mild suprapubic tenderness). Absent: Non-Tender, distention - Male exam: Present: other (Wang catheter in place with bloody discharge around it ). Absent: testicular tenderness - Neurological Exam Neurological exam: Present: alert, oriented X3, normal gait - Psychiatric Psychiatric exam: Present: normal affect, normal mood - Skin Skin exam: Present: warm, dry, intact, normal color Course Course Narrative: 76 -year-old male presenting with painful hematuria. Was seen here yesterday. We will recheck labs and determine further disposition. - Reevaluation(s) Reevaluation #1: Spoke with the hospitalist for admission and she requested that we call urology to attempt to admit to them. - Consultations Consultation #1: Spoke with Dr. Schumacher, and he stated that this would not be an indication for admission. Patient does have symptoms of anemia, but is hemodynamically stable and is on anticoagulation. We did not feel that stopping his antiplatelet medication this time would be indicated due to him being essentially asymptomatic other than feeling dizzy and lightheaded at times. He did state that he would come in to see the patient but would like him admitted to the medicine service. Time: 12:44 Vital Signs Temperature 97.2 F L 11/14/16 10:36 Pulse Rate 78 11/14/16 10:36 Respiratory Rate 16 11/14/16 10:36 Blood Pressure 155/80 11/14/16 10:36 O2 Sat by Pulse Oximetry 98 11/14/16 10:36 Temperature 97.2 F L 11/14/16 10:36 Pulse Rate 78 11/14/16 10:36 Respiratory Rate 16 11/14/16 10:36 Blood Pressure 155/80 11/14/16 10:36 O2 Sat by Pulse Oximetry 98 11/14/16 10:36 Oxygen Delivery Oxygen Delivery Room Air Urogenital-Male - Lab Data Result diagrams: 11/14/16 11:09 11/14/16 11:09 Lab Results 11/14/16 11/14/16 Range/Units 11:09 11:09 WBC 9.5 (4.3-11.1) K/mcL RBC 4.25 (4.19-5.50) M/mcL Hgb 12.4 L (12.9-16.9) g/dL Hct 36.4 L (37.5-50.1) % MCV 85.6 (83.0-100.0) fL MCH 29.2 (28.0-33.3) pg MCHC 34.1 (31.6-35.5) g/dL RDW 14.1 (11.5-14.5) % Plt Count 162 (140-400) K/mcL MPV 11.2 (9.4-12.4) fL Immature Gran % 0.3 (0-4) % Seg Neutrophils % 78.5 % Lymphocytes % 12.7 % Monocytes % 6.7 % Eosinophils % 1.3 % Basophils % 0.5 % Neutrophils # 7.5 (1.6-8.9) K/mcL Lymphocytes # 1.2 (0.6-4.6) K/mcL Monocytes # 0.6 (0.0-1.3) K/mcL Eosinophils # 0.1 (0.0-0.6) K/mcL Basophils # 0.1 (0.0-0.2) K/mcL Sodium 138 (136-145) mEq/L Potassium 3.7 (3.5-4.5) mEq/L Chloride 106 (98-109) mEq/L Carbon Dioxide 24 (19-29) mEq/L BUN 22 (8-26) mg/dL Creatinine 1.09 (0.72-1.25) mg/dL Est GFR ( Amer) > 60 (> 60) Est GFR (Non-Af Amer) > 60 (> 60) BUN/Creatinine Ratio 20 (6-26) Glucose 251 H (70-99) mg/dL Calculated Osmolality 298 (280-300) Calcium 9.7 (8.6-10.8) mg/dL
[2016-11-14 11:17] LABS: Basophils # 0.1 K/mcL (0.0-0.2); Basophils % 0.5 %; Eosinophils # 0.1 K/mcL (0.0-0.6); Eosinophils % 1.3 %; Hematocrit 36.4 % (37.5-50.1); Hemoglobin 12.4 g/dL (12.9-16.9); Immature Granulocytes % 0.3 % (0-4); Lymphocytes # 1.2 K/mcL (0.6-4.6); Lymphocytes % 12.7 %; Mean Corpuscular HGB Conc 34.1 g/dL (31.6-35.5); Mean Corpuscular Hemoglobin 29.2 pg (28.0-33.3); Mean Corpuscular Volume 85.6 fL (83.0-100.0); Mean Platelet Volume 11.2 fL (9.4-12.4); Monocytes # 0.6 K/mcL (0.0-1.3); Monocytes % 6.7 %; Neutrophils # 7.5 K/mcL (1.6-8.9); Platelet Count 162 K/mcL (140-400); Red Blood Count 4.25 M/mcL (4.19-5.50); Red Cell Distribution Width 14.1 % (11.5-14.5); Segmented Neutrophils % 78.5 %
[2016-11-14 11:41] LABS: BUN/Creatinine Ratio 20 (6-26); Blood Urea Nitrogen 22 mg/dL (8-26); Calcium 9.7 mg/dL (8.6-10.8); Carbon Dioxide 24 mEq/L (19-29); Chloride 106 mEq/L (98-109); Glucose 251 mg/dL (70-99); Osmolality,Calculated 298 (280-300); Potassium 3.7 mEq/L (3.5-4.5); Sodium 138 mEq/L (136-145); eGFR For African Americans > 60 (> 60); eGFR For Non-African Americans > 60 (> 60)
[2016-11-14] MEDS ORDERED: *HR* HYDROmorphone (PF) 1 MG/ML SYRINGE IVP ONE ×3 (12:24→21:49)
[2016-11-14 12:42] LABS: Bilirubin,Urine Negative (Negative); Blood,Urine Large (Negative); Clarity,Urine Cloudy (Clear); Color,Urine Yellow (Yellow); Glucose,Urine (UA) >=1000 mg/dL (Normal); Ketones,Urine Negative (Negative); Leukocyte Esterase,Urine Trace (Negative); Nitrite,Urine Negative (Negative); Protein,Urine >=300 mg/dL (Neg-Trace); Specific Gravity,Urine 1.028 (1.010-1.025); Urobilinogen,Urine Normal (Normal)
[2016-11-14] MEDS ORDERED: Naloxone 0.4 MG/ML INJ IVP PRN (14:18)
[2016-11-14] MEDS ORDERED: Nitroglycerin 0.4 MG TAB.SUBL SL PRN (14:19)
[2016-11-14] MEDS ORDERED: D5% in Water 1,000 ML IVC PRN (14:21)
[2016-11-14] MEDS ORDERED: Dextrose Gel 15 GM PO PRN ×2 (14:21)
[2016-11-14] MEDS ORDERED: *HR* Dextrose 50 % in Water (Syg) 50 ML SYRINGE IVP PRN (14:21)
--- NOTE | 2016-11-14 14:31 | Internal Med History&Physical ---
Date of Encounter: 11/14/16 Time of Encounter: 14:30 Assessment and Plan (1) Gross hematuria Current visit: Yes Status: Acute Urology evaluation appreciated continue CBI continue ASA and Brilinta given recent PCI with JATINDER placement will closely monitor H&H and transfuse as needed (2) Anemia Current visit: Yes Status: Acute acute blood loss anemia will continue to closely monitor repeat H&H this evening if patient becomes hemodynamically unstable or H&H below 8, will transfuse continue ASA and Brilinta given recent PCI with JATINDER placement Qualifiers: Anemia type: unspecified type Qualified Code(s): D64.9 - Anemia, unspecified (3) CAD (coronary artery disease) Current visit: No Status: Chronic no acute signs of angina present at this time continue home medications Qualifiers: Coronary Disease-Associated Artery/Lesion type: unspecified vessel or lesion type [place] vs. transplanted heart: [place] heart Associated angina: angina presence unspecified Qualified Code(s): I25.10 - Atherosclerotic heart disease of [place] coronary artery without angina pectoris (4) Congestive heart failure Current visit: No Status: Chronic not in acute exacerbation continue home medications Qualifiers: Congestive heart failure type: combined Congestive heart failure chronicity : chronic Qualified Code(s): I50.42 - Chronic combined systolic (congestive) and diastolic (congestive) heart failure (5) DVT prophylaxis Current visit: No Status: Acute IPCD (6) HLD (hyperlipidemia) Current visit: No Status: Chronic continue home meds Qualifiers: Hyperlipidemia type: pure hypercholesterolemia Qualified Code(s): E78.00 - Pure hypercholesterolemia, unspecified; E78.0 - Pure hypercholesterolemia (7) HTN (hypertension) Current visit: No Status: Chronic continue home meds closely monitor BP Qualifiers: Hypertension type: essential hypertension Qualified Code(s): I10 - Essential (primary) hypertension (8) IDDM (insulin dependent diabetes mellitus) Current visit: No Status: Chronic sliding scale insulin algorithm hold oral antihyperglycemic agents closely monitor FS and BG ADA diet Internal Medicine - H&P: HPI Chief complaint: hematuria Admitted From: Home Plans for Post Hospital Care: Home History of present illness: Mr. Pizarro is a 76 year old male with PMH of DM, HTN, HLD, CAD s/p stent placement on November 02, 2016, ischemic cardiomyopathy with systolic CHF, paroxysmal Afib who presented to the ER for evaluation of hematuria. He was seen in the ER yesterday for urinary retention and hematuria, a cee cath was placed and patient was discharged to home with urology follow up. Patient reports of worsening of hematuria overnight due to which he returned to the ER. Patient used to be on Xarelto but is not currently on anticoagulation for unknown reason, he is however on ASA and Brilinta. He has been evaluated by urology and started on CBI. He is hemodynamically stable and denies any discomfort at this time. Denies any headache, chest pain, sob, abd pain, n/v, fever, or chills. Code status: Full code social history: former smoker Past Med Surg Social Fam HX - Past Medical History Medical history: asthma, atrial fibrillation, coronary artery disease, CVA, diabetes, hypertension, myocardial infarction, thyroid disease Psychiatric history: no psych history - Past Surgical History Surgical History: cholecystectomy, coronary bypass (CABG), pacemaker/AICD - Social History Smoking Status: Former smoker Smokeless Tobacco Status: No Alcohol use: none Drug use: none - Family History Grandfather Living Status: Cause of : [place] Hx Family Cardiac Disorders: Yes ([place]) Mother History Unknown: Yes Living Status: Hx Family Neurologic Disorders: Yes (CVA) Father History Unknown: Yes Adopted: No Living Status: Hx Family Cardiac Disorders: No Hx Family Respiratory Disorders: No Hx Family Cancer: Yes Hx Family GI Disorders: No Hx Family Endocrine Disorder: No Hx Family Neuromuscular Disorders: No Hx Family Neurologic Disorders: No Hx Family HEENT Disorders: No Hx Family Autoimmune Disorders: No Internal Medicine - H&P: Meds Aspirin Enteric Coated [Aspirin EC] 81 mg PO DAILY #30 tablet. 02/21/16 [Rx] Furosemide [Lasix] 40 mg PO DAILY #30 tablet 02/21/16 [Rx] Nitroglycerin [Nitrostat] 0.4 mg SL Q5M PRN 10/01/16 [History] amLODIPine [Norvasc] 10 mg PO DAILY #30 tab 10/05/16 [Rx] Atorvastatin [Lipitor] 40 mg PO HS #30 tablet 11/04/16 [Rx] Carvedilol [Coreg] 3.125 mg PO BIDWM 30 Days 11/04/16 [Rx] Lisinopril [Zestril] 2.5 mg PO DAILY #30 tab 11/04/16 [Rx] Omeprazole [PriLOSEC] 20 mg PO BIDAC #60 11/04/16 [Rx] Ticagrelor [Brilinta] 90 mg PO BID 30 Days 11/04/16 [Rx] Isosorbide MONOnitrate (24 HR) [Imdur] 120 mg PO DAILY #30 tab 11/11/16 [Rx] Ascorbate Calcium [Vitamin C] 500 mg PO DAILY 11/14/16 [History] Cyanocobalamin (Vitamin B-12) [Vitamin B12] 1,000 mcg PO DAILY 11/14/16 [History ] Multivitamin [One Daily Essential] 1 tab PO DAILY 11/14/16 [History] metFORMIN [Glucophage] 500 mg PO BID 11/14/16 [History] 3 Allergy/AdvReac Type Severity Reaction Status Date / Time Oxycodone [From Percocet] Allergy Hives Verified 10/19/16 17:21 tramadol Allergy Hives Verified 10/19/16 17:21 All Systems PM: A 10-system review of systems was performed and is negative for pertinent findings except as documented above in the HPI. - Constitutional Constitutional: as per HPI - Constitutional Vitals: Temp Pulse Resp BP Pulse Ox 97.2 F L 70 16 145/73 99 11/14/16 10:36 11/14/16 13:03 11/14/16 14:20 11/14/16 14:20 11/14/16 13:03 General appearance: Present: cooperative, A&O X 3, no acute distress, answers questions appropriately - Head Head exam: Present: atraumatic, normocephalic - Eye Eye exam: Present: conjuntiva pink, sclera anicteric - Respiratory Respiratory exam: Present: CTAB. Absent: accessory muscle use, rales, rhonchi, wheezes - Cardiovascular Cardiovascular exam: Present: RRR, +S1, +S2. Absent: diastolic murmur, gallop, rubs, systolic murmur - GI/Abdominal GI/Abdominal exam: Present: normal bowel sounds, soft, no peritoneal signs. Absent: distended, tenderness - Extremities Exam Extremities exam: Present: warm, radial pulses palpable and symmetrical. Absent : calf tenderness, cyanotic, pedal edema - Neurological Exam Neurological exam: Present: alert, oriented X3 - Psychiatric Psychiatric exam: Present: normal affect, normal mood Internal Med - H&P Results - Labs CBC & Chem 7: 11/14/16 11:09 11/14/16 11:09
--- NOTE | 2016-11-14 14:51 | Urology - Consult Note ---
Date of Encounter: 11/14/16 Time of Encounter: 14:49 - Assessment and Plan (1) Gross hematuria Current Visit: Yes Status: Acute Assessment and plan: Secondary to the degree of gross hematuria I felt that he required CBI. 22 Citizen [place] hematuria catheter placed and CBI started. He cleared fairly quickly which is an encouraging sign. Okay to continue all anticoagulation overnight. We 'll see if his urine remains clear overnight with CBI. If bleeding issues persist he may require operating room fulguration or even holding anticoagulation. We'll follow the patient closely while he is in the hospital Urology CN:ROMANA Consult date: 11/14/16 Reason for consult Urology: Gross Hematuria History of present illness: 76-year-old male with multiple medical problems including coronary artery disease and recent drug-eluting stent. He is on active anticoagulation with aspirin and brilinta. Went into urinary retention yesterday and catheter was placed. Unknown volume returned when catheter was placed. Return to see emergency room with suprapubic discomfort and worsening gross hematuria. Past Med Surg Social Fam HX - Past Medical History Medical history: asthma, atrial fibrillation, coronary artery disease, CVA, diabetes, hypertension, myocardial infarction, thyroid disease Psychiatric history: no psych history - Past Surgical History Surgical History: cholecystectomy, coronary bypass (CABG), pacemaker/AICD - Social History Smoking Status: Former smoker Smokeless Tobacco Status: No Alcohol use: none Drug use: none - Family History Grandfather Living Status: Cause of : [place] Hx Family Cardiac Disorders: Yes ([place]) Mother History Unknown: Yes Living Status: Hx Family Neurologic Disorders: Yes (CVA) Father History Unknown: Yes Adopted: No Living Status: Hx Family Cardiac Disorders: No Hx Family Respiratory Disorders: No Hx Family Cancer: Yes Hx Family GI Disorders: No Hx Family Endocrine Disorder: No Hx Family Neuromuscular Disorders: No Hx Family Neurologic Disorders: No Hx Family HEENT Disorders: No Hx Family Autoimmune Disorders: No Medications and Allergies Aspirin Enteric Coated [Aspirin EC] 81 mg PO DAILY #30 tablet. 02/21/16 [Rx] Furosemide [Lasix] 40 mg PO DAILY #30 tablet 02/21/16 [Rx] Nitroglycerin [Nitrostat] 0.4 mg SL Q5M PRN 10/01/16 [History] amLODIPine [Norvasc] 10 mg PO DAILY #30 tab 10/05/16 [Rx] Atorvastatin [Lipitor] 40 mg PO HS #30 tablet 11/04/16 [Rx] Carvedilol [Coreg] 3.125 mg PO BIDWM 30 Days 11/04/16 [Rx] Lisinopril [Zestril] 2.5 mg PO DAILY #30 tab 11/04/16 [Rx] Omeprazole [PriLOSEC] 20 mg PO BIDAC #60 11/04/16 [Rx] Ticagrelor [Brilinta] 90 mg PO BID 30 Days 11/04/16 [Rx] Isosorbide MONOnitrate (24 HR) [Imdur] 120 mg PO DAILY #30 tab 11/11/16 [Rx] Ascorbate Calcium [Vitamin C] 500 mg PO DAILY 11/14/16 [History] Cyanocobalamin (Vitamin B-12) [Vitamin B12] 1,000 mcg PO DAILY 11/14/16 [History ] Multivitamin [One Daily Essential] 1 tab PO DAILY 11/14/16 [History] metFORMIN [Glucophage] 500 mg PO BID 11/14/16 [History] 3 Allergy/AdvReac Type Severity Reaction Status Date / Time Oxycodone [From Percocet] Allergy Hives Verified 10/19/16 17:21 tramadol Allergy Hives Verified 10/19/16 17:21 Review of Systems - Constitutional no chills, no fever(s) - EENT Nose, mouth and throat: no dizziness - Cardiovascular no chest pain - Respiratory no cough - Gastrointestinal as per HPI, abdominal pain - Genitourinary difficulty urinating, hematuria - Musculoskeletal back pain - Integumentary no erythema - Neurological as per HPI, no confusion - Psychiatric no anxiety - Hematologic/Lymphatic easy bleeding - Allergic/Immunologic no throat swelling Exam Initial Vital Signs Temp Pulse Resp BP Pulse Ox 97.2 F L 78 16 155/80 98 11/14/16 10:36 11/14/16 10:36 11/14/16 10:36 11/14/16 10:36 11/14/16 10:36 - General physical appearance Present: well developed, no distress - Eyes Present: PERRL - ENT Present: normal nares - Neck Present: no masses - Respiratory Present: normal respiratory effort - Cardiovascular Cardiovascular exam IM: RRR - Abdomen Abdomen: Present: suprapubic tenderness - Genitourinary normal penis with no external lesions - Integumentary Absent: no rash - Neurologic Present: normal coordination. Absent: disoriented, confused - Additional Findings Wang catheter draining opaque red urine Urology Results - Labs 11/14/16 11:09 11/14/16 11:09 Abnormal lab results Hgb 12.4 g/dL (12.9-16.9) L 11/14/16 11:09 Hct 36.4 % (37.5-50.1) L 11/14/16 11:09 Glucose 251 mg/dL (70-99) H 11/14/16 11:09 Ur Specimen Adequacy See below A 11/14/16 12:15 Urine Clarity Cloudy (Clear) A 11/14/16 12:15 Ur Specific [place] 1.028 (1.010-1.025) H 11/14/16 12:15 Urine Protein >=300 mg/dL (Neg-Trace) H 11/14/16 12:15 Urine Glucose (UA) >=1000 mg/dL (Normal) H 11/14/16 12:15 Urine Blood Large (Negative) H 11/14/16 12:15 Ur Leukocyte Esterase Trace (Negative) H 11/14/16 12:15 Ur Culture Indicated? YES (NO) A 11/14/16 12:15 All other labs normal. Procedures:Urology - Catheter Insertion (Urinary) Prophylactic antibiotics given: No Bladder Scan/Ultrasound used before catheterization: No Estimated amount of urin (mLs): 100 Preparation: Povidone-Iodine Type of catheter inserted: 3 way Catheter Citizen [place] Size: 24 Results: successfully catheterized-immediate flow Urine Appearance: Hematuria Patient tolerated procedure: well Complications: none Additional comments: 24 [place] hematuria catheter placed. CBI started. Cleared within 5 minutes of starting CBI. Will titrate drip Consult Discharge Plan - Plan Referrals: NONE,PCP [Primary Care Provider] -
[2016-11-14] MEDS ORDERED: Aspirin 81 MG TAB.CHEW PO ONE (15:01)
[2016-11-14] MEDS: Insulin LISPRO 300 UNITS/3 ML VIAL SQ SCH ×2 (15:17→21:48)
[2016-11-14] MEDS: Ondansetron 4 MG/2 ML VIAL IVP PRN (18:38)
[2016-11-14 19:50] LABS: Basophils # 0.1 K/mcL (0.0-0.2); Basophils % 0.6 %; Eosinophils # 0.1 K/mcL (0.0-0.6); Eosinophils % 0.9 %; Hemoglobin 11.8 g/dL (12.9-16.9); Immature Granulocytes % 0.4 % (0-4); Lymphocytes # 1.1 K/mcL (0.6-4.6); Lymphocytes % 10.8 %; Mean Corpuscular HGB Conc 32.8 g/dL (31.6-35.5); Mean Corpuscular Hemoglobin 28.3 pg (28.0-33.3); Mean Corpuscular Volume 86.3 fL (83.0-100.0); Mean Platelet Volume 11.2 fL (9.4-12.4); Monocytes # 0.6 K/mcL (0.0-1.3); Monocytes % 6.1 %; Neutrophils # 8.6 K/mcL (1.6-8.9); Platelet Count 155 K/mcL (140-400); Red Blood Count 4.17 M/mcL (4.19-5.50); Red Cell Distribution Width 14.1 % (11.5-14.5); Segmented Neutrophils % 81.2 %
[2016-11-14] MEDS: *HR* Ticagrelor 90 MG TABLET PO SCH (20:11)
[2016-11-15 03:45] LABS: Basophils # 0.1 K/mcL (0.0-0.2); Basophils % 0.4 %; Eosinophils # 0.1 K/mcL (0.0-0.6); Eosinophils % 0.6 %; Hematocrit 37.9 % (37.5-50.1); Hemoglobin 12.6 g/dL (12.9-16.9); Immature Granulocytes % 0.5 % (0-4); Lymphocytes # 1.4 K/mcL (0.6-4.6); Lymphocytes % 12.5 %; Mean Corpuscular HGB Conc 33.2 g/dL (31.6-35.5); Mean Corpuscular Hemoglobin 28.6 pg (28.0-33.3); Mean Corpuscular Volume 86.1 fL (83.0-100.0); Mean Platelet Volume 11.2 fL (9.4-12.4); Monocytes # 0.8 K/mcL (0.0-1.3); Neutrophils # 9.1 K/mcL (1.6-8.9); Platelet Count 169 K/mcL (140-400)
[2016-11-15 03:58] LABS: BUN/Creatinine Ratio 16 (6-26); Blood Urea Nitrogen 14 mg/dL (8-26); Calcium 9.6 mg/dL (8.6-10.8); Carbon Dioxide 27 mEq/L (19-29); Chloride 106 mEq/L (98-109); Glucose 111 mg/dL (70-99); Magnesium 1.4 mg/dL (1.6-2.6); Osmolality,Calculated 289 (280-300); Phosphorous 2.9 mg/dL (2.3-4.7); Potassium 3.9 mEq/L (3.5-4.5); Sodium 139 mEq/L (136-145); eGFR For African Americans > 60 (> 60); eGFR For Non-African Americans > 60 (> 60)
[2016-11-15] MEDS ORDERED: *HR* HYDROmorphone (PF) 1 MG/ML SYRINGE IVP ONE (06:04)
[2016-11-15] MEDS: Ondansetron 4 MG/2 ML VIAL IVP PRN ×2 (06:35→18:15)
--- NOTE | 2016-11-15 06:52 | Urology Progress Note ---
Date of Encounter: 11/15/16 Time of Encounter: 06:50 - Assessment and Plan (1) Gross hematuria Current Visit: Yes Status: Acute Assessment and plan: the hematuria continues but is starting to slow some. This may take significant time bc of his anticoagulation. no indication to go to OR today especially bc fulguration will not be overly effective while on anticoagulation. will observe again over the next 24 hours. start levsin and B &O suppository. will follow closely. Progress Note Subjective: still having pain Narrative: hematuria continues overnight but nurses report that it has cleared at times during the night. Objective Initial Vital Signs Temp Pulse Resp BP Pulse Ox 97.2 F L 78 16 155/80 98 11/14/16 10:36 11/14/16 10:36 11/14/16 10:36 11/14/16 10:36 11/14/16 10:36 - General physical appearance Present: no distress - Additional Exam moderate CBI drip with transparent pinkish/red urine. - Labs 11/15/16 03:12 11/15/16 03:12 Diabetes panel 11/15/16 Range/Units 03:12 Sodium 139 (136-145) mEq/L Potassium 3.9 (3.5-4.5) mEq/L Chloride 106 (98-109) mEq/L Carbon Dioxide 27 (19-29) mEq/L BUN 14 (8-26) mg/dL Creatinine 0.86 (0.72-1.25) mg/dL Glucose 111 H (70-99) mg/dL Calcium 9.6 (8.6-10.8) mg/dL Calcium panel 11/15/16 Range/Units 03:12 Calcium 9.6 (8.6-10.8) mg/dL Phosphorus 2.9 (2.3-4.7) mg/dL Pituitary panel 11/15/16 Range/Units 03:12 Sodium 139 (136-145) mEq/L Potassium 3.9 (3.5-4.5) mEq/L Chloride 106 (98-109) mEq/L Carbon Dioxide 27 (19-29) mEq/L BUN 14 (8-26) mg/dL Creatinine 0.86 (0.72-1.25) mg/dL Glucose 111 H (70-99) mg/dL Calcium 9.6 (8.6-10.8) mg/dL Adrenal panel 11/15/16 Range/Units 03:12 Sodium 139 (136-145) mEq/L Potassium 3.9 (3.5-4.5) mEq/L Chloride 106 (98-109) mEq/L Carbon Dioxide 27 (19-29) mEq/L BUN 14 (8-26) mg/dL Creatinine 0.86 (0.72-1.25) mg/dL Glucose 111 H (70-99) mg/dL Calcium 9.6 (8.6-10.8) mg/dL - VTE Documentation of Mechanical Device: Intermittent pneumatic compression device Consult Discharge Plan - Plan Referrals: NONE,PCP [Primary Care Provider] -
[2016-11-15] MEDS ORDERED: Hyoscyamine SL 0.125 MG TAB.SUBL SL PRN (06:57)
[2016-11-15] MEDS ORDERED: *HR* Belladonna Alkaloids/Opium 30 MG RECTAL SUPPOSITORY RC PRN (06:57)
[2016-11-15] MEDS: Insulin LISPRO 300 UNITS/3 ML VIAL SQ SCH ×4 (07:50→20:29)
[2016-11-15] MEDS: Cyanocobalamin (B-12) 1,000 MCG TABLET PO SCH (07:53)
[2016-11-15] MEDS: Aspirin Enteric Coated 81 MG Tablet PO SCH (07:54)
[2016-11-15] MEDS: Furosemide 40 MG TABLET PO SCH (07:54)
[2016-11-15] MEDS: Ascorbic Acid 500 MG TABLET PO SCH (07:54)
[2016-11-15] MEDS: Isosorbide MONOnitrate (24 HR) 60 MG TAB.ER.24H PO SCH (07:54)
[2016-11-15] MEDS: *HR* Ticagrelor 90 MG TABLET PO SCH ×2 (07:54→20:29)
[2016-11-15] MEDS: amLODIPine 5 MG TABLET PO SCH (07:54)
[2016-11-15] MEDS: Multivit/Ca/Min/Fe/FA 1 TAB TABLET PO SCH (07:54)
[2016-11-15] MEDS ORDERED: *HR* Promethazine 25 MG/ML VIAL IVP PRN (08:54)
[2016-11-15] MEDS ORDERED: Magnesium Sulfate 2 GM in D5% in Water 100 ML IVPB ONE (11:26)
[2016-11-15] MEDS ORDERED: 0.9 % Sodium Chloride 250 ML ONE (12:39)
--- NOTE | 2016-11-15 14:57 | Internal Med Progress Note ---
Date of Encounter: 11/15/16 Time of Encounter: 11:45 - Assessment and plan (1) Gross hematuria Current Visit: Yes Status: Acute Assessment and plan: Being treated with continuous bladder irrigation. Neurology is following. Will treat lower abdominal pain/bladder spasms symptomatically. Moderate risk for complications. (2) Anemia Current Visit: Yes Status: Acute Assessment and plan: Due to hematuria. Hemoglobin levels have stabilized. We will continue to monitor blood counts. Qualifiers: Anemia type: unspecified type Qualified Code(s): D64.9 - Anemia, unspecified (3) CAD (coronary artery disease) Current Visit: Yes Status: Chronic Assessment and plan: No chest pain. On dual antiplatelet therapy due to recent placement of drug- eluting stent. Continue statin and beta fuentes Qualifiers: Coronary Disease-Associated Artery/Lesion type: unspecified vessel or lesion type [place] vs. transplanted heart: [place] heart Associated angina: angina presence unspecified Qualified Code(s): I25.10 - Atherosclerotic heart disease of [place] coronary artery without angina pectoris (4) Congestive heart failure Current Visit: Yes Status: Chronic Assessment and plan: No acute exacerbation. Qualifiers: Congestive heart failure type: combined Congestive heart failure chronicity : chronic Qualified Code(s): I50.42 - Chronic combined systolic (congestive) and diastolic (congestive) heart failure (5) HLD (hyperlipidemia) Current Visit: No Status: Chronic Assessment and plan: Continue statin Qualifiers: Hyperlipidemia type: pure hypercholesterolemia Qualified Code(s): E78.00 - Pure hypercholesterolemia, unspecified; E78.0 - Pure hypercholesterolemia (6) HTN (hypertension) Current Visit: Yes Status: Chronic Assessment and plan: Blood pressure is well controlled Qualifiers: Hypertension type: essential hypertension Qualified Code(s): I10 - Essential (primary) hypertension (7) IDDM (insulin dependent diabetes mellitus) Current Visit: Yes Status: Chronic Assessment and plan: Blood sugars are elevated. We will add long-acting insulin regimen - Subjective Interval history: Patient is awake and alert but is having significant difficulty urinary as his hearing aid battery has . He complains of pain in his lower abdomen related to presence of Wang catheter and continuous bladder irrigation. Denies any chest pain. Does have nausea. No fever or chills reported. No other complaints at this time. Continues to have hematuria but it appears to be improving. - Constitutional Vitals: Temp Pulse Resp BP Pulse Ox 97.9 F 73 15 117/65 96 11/15/16 11:03 11/15/16 11:03 11/15/16 11:03 11/15/16 11:03 11/15/16 11:03 General appearance: Present: cooperative, A&O X 3, no acute distress, answers questions appropriately - Neck Neck exam general surgery: Present: supple, trachea midline. Absent: lymphadenopathy - Respiratory Respiratory exam: Present: CTAB. Absent: accessory muscle use, rales, rhonchi, wheezes - Cardiovascular Cardiovascular exam: Present: RRR, +S1, +S2. Absent: diastolic murmur, gallop, rubs, systolic murmur - GI/Abdominal GI/Abdominal exam: Present: normal bowel sounds, soft, tenderness (Suprapubic), no peritoneal signs. Absent: distended - Extremities Exam Extremities exam: Present: warm, radial pulses palpable and symmetrical. Absent : calf tenderness, cyanotic, pedal edema Internal Medicine: Result - Labs CBC & Chem 7: 11/15/16 03:12 11/15/16 03:12 Labs: Short CBC 11/14/16 11/15/16 Range/Units 19:24 03:12 WBC 10.6 11.6 H (4.3-11.1) K/mcL Hgb 11.8 L 12.6 L (12.9-16.9) g/dL Hct 36.0 L 37.9 (37.5-50.1) % Plt Count 155 169 (140-400) K/mcL Neutrophils # 8.6 9.1 H (1.6-8.9) K/mcL BMP 11/15/16 03:12 Sodium 139 Potassium 3.9 Chloride 106 Carbon Dioxide 27 BUN 14 Creatinine 0.86 Glucose 111 H Calcium 9.6 - VTE Documentation of Mechanical Device: Intermittent pneumatic compression device Consult Discharge Plan - Plan Referrals: NONE,PCP [Primary Care Provider] -
[2016-11-15] MEDS: Hyoscyamine SL 0.125 MG TAB.SUBL SL PRN (20:29)
[2016-11-15] MEDS: Insulin DETEMIR 100 UNIT/ML X5UNITS SQ SCH (21:30)
[2016-11-16] MEDS: *HR* HYDROcodone/Acet 5/325 mg TABLET PO PRN ×2 (00:59→21:19)
[2016-11-16 05:06] LABS: Basophils # 0.1 K/mcL (0.0-0.2); Basophils % 0.4 %; Eosinophils # 0.1 K/mcL (0.0-0.6); Eosinophils % 1.1 %; Hematocrit 36.6 % (37.5-50.1); Hemoglobin 12.7 g/dL (12.9-16.9); Immature Granulocytes % 0.5 % (0-4); Lymphocytes # 1.9 K/mcL (0.6-4.6); Lymphocytes % 15.2 %; Mean Corpuscular HGB Conc 34.7 g/dL (31.6-35.5); Mean Corpuscular Hemoglobin 29.9 pg (28.0-33.3); Mean Corpuscular Volume 86.1 fL (83.0-100.0); Mean Platelet Volume 11.2 fL (9.4-12.4); Monocytes % 7.6 %; Neutrophils # 9.5 K/mcL (1.6-8.9); Platelet Count 166 K/mcL (140-400); Red Blood Count 4.25 M/mcL (4.19-5.50); Red Cell Distribution Width 14.3 % (11.5-14.5); Segmented Neutrophils % 75.2 %
--- NOTE | 2016-11-16 07:10 | Urology Progress Note ---
Date of Encounter: 11/16/16 Time of Encounter: 07:07 - Assessment and Plan (1) Gross hematuria Current Visit: Yes Status: Acute Assessment and plan: CBI on slow. urine completely clear. will stop CBI and plug port on cath. hopefully on mild increase in hematuria. if urine remains transparent pink/red ok for discharge with cath in place. Progress Note Subjective: feels better Narrative: urine has cleared overnight. Objective Initial Vital Signs Temp Pulse Resp BP Pulse Ox 97.2 F L 78 16 155/80 98 11/14/16 10:36 11/14/16 10:36 11/14/16 10:36 11/14/16 10:36 11/14/16 10:36 - General physical appearance Absent: well developed, no distress - Labs 11/16/16 04:32 11/15/16 03:12 - VTE Documentation of Mechanical Device: Intermittent pneumatic compression device Consult Discharge Plan - Plan Referrals: Lance Cronin MD [Partnered Physician] -
[2016-11-16] MEDS: Multivit/Ca/Min/Fe/FA 1 TAB TABLET PO SCH (07:49)
[2016-11-16] MEDS: amLODIPine 5 MG TABLET PO SCH (07:49)
[2016-11-16] MEDS: Furosemide 40 MG TABLET PO SCH (07:49)
[2016-11-16] MEDS: Ascorbic Acid 500 MG TABLET PO SCH (07:49)
[2016-11-16] MEDS: *HR* Ticagrelor 90 MG TABLET PO SCH ×2 (07:49→21:19)
[2016-11-16] MEDS: Aspirin Enteric Coated 81 MG Tablet PO SCH (07:49)
[2016-11-16] MEDS: Cyanocobalamin (B-12) 1,000 MCG TABLET PO SCH (07:50)
[2016-11-16] MEDS: Isosorbide MONOnitrate (24 HR) 60 MG TAB.ER.24H PO SCH (07:52)
[2016-11-16] MEDS: Insulin LISPRO 300 UNITS/3 ML VIAL SQ SCH ×4 (07:54→21:22)
[2016-11-16] MEDS ORDERED: Bismuth Subsalicylate 120 ML ORAL SUSPENSION PO PRN (11:01)
[2016-11-16] MEDS ORDERED: 0.9 % Sodium Chloride 500 ML IVC ONE (14:08)
[2016-11-16] MEDS: Acetaminophen 325 MG TABLET PO PRN (14:39)
--- NOTE | 2016-11-16 16:36 | Internal Med Progress Note ---
Date of Encounter: 11/16/16 Time of Encounter: 08:50 - Assessment and plan (1) Gross hematuria Current Visit: Yes Status: Acute Assessment and plan: Improving with continuous bladder irrigation. This has now been stopped. Urology following. Recommend discharging the patient with catheter in place once clinically stable. Hemoglobin levels have been stable. (2) Anemia Current Visit: Yes Status: Acute Assessment and plan: Stable. Hemoglobin levels have been stable. Due to hematuria Qualifiers: Anemia type: unspecified type Qualified Code(s): D64.9 - Anemia, unspecified (3) CAD (coronary artery disease) Current Visit: Yes Status: Chronic Assessment and plan: On aspirin, Brilinta, statin and beta fuentes. She is status post recent drug- eluting stent placement. Qualifiers: Coronary Disease-Associated Artery/Lesion type: unspecified vessel or lesion type [place] vs. transplanted heart: [place] heart Associated angina: angina presence unspecified Qualified Code(s): I25.10 - Atherosclerotic heart disease of [place] coronary artery without angina pectoris (4) Congestive heart failure Current Visit: Yes Status: Chronic Assessment and plan: Not in acute exacerbation. Patient appears to be euvolemic at this time Qualifiers: Congestive heart failure type: combined Congestive heart failure chronicity : chronic Qualified Code(s): I50.42 - Chronic combined systolic (congestive) and diastolic (congestive) heart failure (5) HLD (hyperlipidemia) Current Visit: No Status: Chronic Assessment and plan: On statin Qualifiers: Hyperlipidemia type: pure hypercholesterolemia Qualified Code(s): E78.00 - Pure hypercholesterolemia, unspecified; E78.0 - Pure hypercholesterolemia (6) HTN (hypertension) Current Visit: Yes Status: Chronic Assessment and plan: Blood pressure has been lower today. We will hold antihypertensives for now. Resume when blood pressure improves. Qualifiers: Hypertension type: essential hypertension Qualified Code(s): I10 - Essential (primary) hypertension (7) IDDM (insulin dependent diabetes mellitus) Current Visit: Yes Status: Chronic Assessment and plan: Blood sugars are mostly controlled with intermittent elevation. On Levemir and sliding scale insulin. Will continue current insulin regimen for now and adjust according to blood sugars. (8) Physical deconditioning Current Visit: Yes Status: Acute Assessment and plan: Physical therapy has been consulted for evaluation. We will follow recommendations. (9) Paroxysmal a-fib Current Visit: No Status: Chronic Assessment and plan: Rate controlled. Previously on Xarelto. Currently only on aspirin and Brilinta. Was previously on Xarelto for anticoagulation. This appears to be in held due to high risk for bleeding as patient is currently on aspirin and Brilinta. - Subjective Interval history: Patient is feeling better but complains of pain at site of Wang catheter. He tried to sit up in bed and developed severe pain due to presence of Wang catheter and had to be brought back to bed. Has had decrease in amount of hematuria. Urine appears to be clearing. Denies any dizziness or lightheadedness but has been having lower than usual blood pressure. - Constitutional Vitals: Temp Pulse Resp BP Pulse Ox 97.9 F 71 18 106/59 97 11/16/16 15:24 11/16/16 15:24 11/16/16 15:24 11/16/16 15:24 11/16/16 15:24 General appearance: Present: cooperative, A&O X 3, no acute distress, answers questions appropriately - Respiratory Respiratory exam: Present: CTAB. Absent: accessory muscle use, rales, rhonchi, wheezes - Cardiovascular Cardiovascular exam: Present: RRR, +S1, +S2. Absent: diastolic murmur, gallop, rubs, systolic murmur - GI/Abdominal GI/Abdominal exam: Present: normal bowel sounds, soft, tenderness (Suprapubic), no peritoneal signs. Absent: distended - Extremities Exam Extremities exam: Present: warm, radial pulses palpable and symmetrical. Absent : calf tenderness, cyanotic, pedal edema - Neurological Exam Neurological exam: Present: alert, CN II-XII intact, oriented X3, no focal deficits. Absent: facial droop, speech deficit Internal Medicine: Result - Labs CBC & Chem 7: 11/16/16 04:32 11/15/16 03:12 Labs: Short CBC 11/16/16 Range/Units 04:32 WBC 12.6 H (4.3-11.1) K/mcL Hgb 12.7 L (12.9-16.9) g/dL Hct 36.6 L (37.5-50.1) % Plt Count 166 (140-400) K/mcL Neutrophils # 9.5 H (1.6-8.9) K/mcL - VTE Documentation of Mechanical Device: Intermittent pneumatic compression device Consult Discharge Plan - Plan Referrals: Lance Cronin MD [Partnered Physician] -
[2016-11-16] MEDS: cephALEXin 500 MG CAPSULE PO SCH (21:19)
[2016-11-16] MEDS: Insulin DETEMIR 100 UNIT/ML X5UNITS SQ SCH (21:19)
[2016-11-17] MEDS: *HR* HYDROcodone/Acet 5/325 mg TABLET PO PRN ×3 (04:08→21:43)
[2016-11-17 05:58] LABS: Basophils # 0.1 K/mcL (0.0-0.2); Basophils % 0.6 %; Eosinophils # 0.2 K/mcL (0.0-0.6); Eosinophils % 1.9 %; Hematocrit 34.1 % (37.5-50.1); Hemoglobin 11.9 g/dL (12.9-16.9); Immature Granulocytes % 0.4 % (0-4); Lymphocytes # 1.6 K/mcL (0.6-4.6); Lymphocytes % 13.8 %; Mean Corpuscular HGB Conc 34.9 g/dL (31.6-35.5); Mean Corpuscular Hemoglobin 29.4 pg (28.0-33.3); Mean Corpuscular Volume 84.2 fL (83.0-100.0); Mean Platelet Volume 11.3 fL (9.4-12.4); Monocytes # 1.1 K/mcL (0.0-1.3); Monocytes % 9.5 %; Neutrophils # 8.7 K/mcL (1.6-8.9); Platelet Count 171 K/mcL (140-400); Red Blood Count 4.05 M/mcL (4.19-5.50); Red Cell Distribution Width 14.1 % (11.5-14.5); Segmented Neutrophils % 73.8 %
[2016-11-17] MEDS: Insulin LISPRO 300 UNITS/3 ML VIAL SQ SCH ×4 (08:43→20:42)
[2016-11-17] MEDS: Furosemide 40 MG TABLET PO SCH (09:05)
[2016-11-17] MEDS: Aspirin Enteric Coated 81 MG Tablet PO SCH (09:05)
[2016-11-17] MEDS: Isosorbide MONOnitrate (24 HR) 60 MG TAB.ER.24H PO SCH (09:05)
[2016-11-17] MEDS: Cyanocobalamin (B-12) 1,000 MCG TABLET PO SCH (09:05)
[2016-11-17] MEDS: Ascorbic Acid 500 MG TABLET PO SCH (09:06)
[2016-11-17] MEDS: amLODIPine 5 MG TABLET PO SCH (09:06)
[2016-11-17] MEDS: Multivit/Ca/Min/Fe/FA 1 TAB TABLET PO SCH (09:06)
[2016-11-17] MEDS: *HR* Ticagrelor 90 MG TABLET PO SCH ×2 (09:06→20:47)
--- NOTE | 2016-11-17 09:06 | Internal Med Progress Note ---
<Atul Gardner - Last Filed: 11/17/16 19:19> Date of Encounter: 11/17/16 - Constitutional Vitals: Temp Pulse Resp BP Pulse Ox 98.7 F 73 16 101/57 98 11/17/16 14:50 11/17/16 14:50 11/17/16 14:50 11/17/16 14:50 11/17/16 14:50 Internal Medicine: Result - Labs CBC & Chem 7: 11/17/16 05:08 11/15/16 03:12 - ABG Interpretation ABG results: PT/INR, D-dimer PT 12.6 Seconds (9.4-12.1) H 11/17/16 10:47 Consult Discharge Plan - Plan Referrals: Lance Cronin MD [Partnered Physician] - - Attending Attestation I have independently seen and examined this patient on 11/17/16 , reviewed the EMR and discussed plan of care with the patient and resident physician 76 YO M with PMH of CAD s/p JATINDER 10/2016, Afib, Combined CHF, HT, HLD, DM, Physical deconditioning He is admitted and being managed for gross hematuria, suspected UTI. He has been off CBI and his urine is clear. On evaluation however, patient continues to complain of suprapubic pain and is having spotting willa-urethral region with surrounding clotted blood. He is hemodynamically stable. Eliquis has been held since admission, but he is on ASA and Brilinta Physical exam: VSS, not in distress, getting PT during eval and not in respiratory or painful distress, HS S1, S2, Afib, Abdomen is benign with mild suprapubic tenderness, and willa-urethral bloody discharge. No pedal edema. Labs and Imaging reviewed Plan is to continue current management, reconsult for the urethral bleeding, urine in Wang is clear and this was probably traumatic. Patient is stable otherwise. Will continue to hold Eliquis till cleared by as out-patient. Rest of details as in resident physicians documentation <Carlos Martinez - Last Filed: 11/17/16 19:26> Date of Encounter: 11/17/16 Time of Encounter: 09:03 - Assessment and plan (1) Anemia Current Visit: Yes Status: Acute Assessment and plan: Stable. Hemoglobin levels have been stable. Hemoglobin 11.9 down from 12.7 yesterday patient was admitted with hemoglobin 11.8. Mild drop may be secondary to hematuria. - Continues to have mild bleeding around Wang catheter site might be secondary to irritation from Wang - MCV 84.2 Plan: - Urology following addressing hematuria - PT/INR and PTT ordered - Repeat hemoglobin for tomorrow a.m. Qualifiers: Anemia type: unspecified type Qualified Code(s): D64.9 - Anemia, unspecified (2) Gross hematuria Current Visit: Yes Status: Acute Assessment and plan: Resolved Improved with continuous bladder irrigation. This has now been stopped. Urology following. Hemoglobin levels have been stable. - Xarelto held - Patient continued on Brillenta and aspirin - Patient states that he is not taking Plavix Plan: - Continue Wang catheter - Continue IV rehydration - Monitor renal output - Wang care - Appreciate urology's recommendations (3) CAD (coronary artery disease) Current Visit: Yes Status: Chronic Assessment and plan: On aspirin, Brilinta, statin and beta fuentes. Patient status post recent JATINDER placement. Qualifiers: Coronary Disease-Associated Artery/Lesion type: unspecified vessel or lesion type [place] vs. transplanted heart: [place] heart Associated angina: angina presence unspecified Qualified Code(s): I25.10 - Atherosclerotic heart disease of [place] coronary artery without angina pectoris (4) Congestive heart failure Current Visit: Yes Status: Chronic Assessment and plan: Not in acute exacerbation. Patient appears to be euvolemic at this time Recent Hx: -C 11/02/16 revealed acute OR was due to acute stent thrombosis of ostial RCA stent. Vessel subtotally occluded with large thrombus burden. Triple vessel disease. S/P CABG 2 of 2 patent bypass grafts. Successful PTCA/JATINDER in RCA. 4 JATINDER total. -Right femoral access site healing well. No bleeding or hematoma noted. Mild ecchymosis. Right groin site management education given to patient. Patient states understanding. -JATINDER: continue (ASA and Brilinta) uninterrupted x 1 year. -Continue statin, beta fuentes, imdur, clara inhibitor. - Last Echo with LVEF 35-40%, mild diastolic dysfunction, normal RV size, probably mild reduction in function, no significant valvular dsyfunction, apex, apical inferior, mid inferior, apical anterior, mid anterior, basal anterior, apical lateral, mid anterior lateral, basal anterior lateral, mid inferior lateral, and basal inferior lateral mena hypokinetic. Basal inferior wall akinetic, apical septal, mid inferior septal, basal inferior spetal, mid anterior septal, and basal anterior septal mena dyskinetic. Qualifiers: Congestive heart failure type: combined Congestive heart failure chronicity : chronic Qualified Code(s): I50.42 - Chronic combined systolic (congestive) and diastolic (congestive) heart failure (5) HTN (hypertension) Current Visit: Yes Status: Chronic Qualifiers: Hypertension type: essential hypertension Qualified Code(s): I10 - Essential (primary) hypertension (6) IDDM (insulin dependent diabetes mellitus) Current Visit: Yes Status: Chronic (7) HLD (hyperlipidemia) Current Visit: No Status: Chronic Assessment and plan: On statin Qualifiers: Hyperlipidemia type: pure hypercholesterolemia Qualified Code(s): E78.00 - Pure hypercholesterolemia, unspecified; E78.0 - Pure hypercholesterolemia (8) History of smoking Current Visit: No Status: Chronic (9) Ischemic cardiomyopathy Current Visit: No Status: Chronic Assessment and plan: as discussed above. (10) Pacemaker Current Visit: No Status: Chronic Assessment and plan: in left chest. Stable. (11) Paroxysmal a-fib Current Visit: No Status: Chronic Assessment and plan: Was previously on Xarelto at the time of admission for anticoagulation. -This appears to be in held due to high risk for bleeding as patient is currently on aspirin and Brilinta. - Constitutional Vitals: Temp Pulse Resp BP Pulse Ox 97.6 F 66 18 108/64 96 11/17/16 06:49 11/17/16 06:49 11/17/16 06:49 11/17/16 06:49 11/17/16 06:49 General appearance: Present: cooperative, A&O X 3, no acute distress, answers questions appropriately Exam: General: Patient alert, awake, oriented 3, interactive, in no acute distress HEENT: Normocephalic, atraumatic, pupils equal reactive to light, nasal cavity patent and open septum median position, oral mucosa moist, uvula midline, neck supple trachea midline no palpable lymphadenopathy, no thyromegaly. Chest: Symmetric bilateral correlating with respiratory effort, effort nonlabored. Pacemaker in left chest Cardiac: Regular rate and rhythm, positive S1, S2, no bruits appreciated bilateral carotids, Radial pulses 2+ bilateral, posterior tibial and dorsal pedal pulses 2+ bilateral. Respiratory: Clear to auscultation all lung carrero Abdomen: Slightly distended tenderness appreciated the supra pubic palpation, positive bowel sounds, no palpable masses appreciated on examination : Patient has a Wang catheter in place with bleeding around the urethra, yellow urine in Wang without sediment. Extremities: Symmetric bilateral, no erythema or edema, patient moving all 4 extremities spontaneously. Neurologic: No focal deficits appreciated on examination. Face symmetric, muscle strength symmetric bilateral upper and lower extremities. Internal Medicine: Result - Labs CBC & Chem 7: 11/17/16 05:08 11/15/16 03:12 Labs: Short CBC 11/17/16 Range/Units 05:08 WBC 11.7 H (4.3-11.1) K/mcL Hgb 11.9 L (12.9-16.9) g/dL Hct 34.1 L (37.5-50.1) % Plt Count 171 (140-400) K/mcL Neutrophils # 8.7 (1.6-8.9) K/mcL - VTE Documentation of Mechanical Device: Intermittent pneumatic compression device
[2016-11-17] MEDS: cephALEXin 500 MG CAPSULE PO SCH ×2 (09:07→20:47)
[2016-11-17 11:04] LABS: INR 1.2; Prothrombin Time 12.6 Seconds (9.4-12.1)
[2016-11-17 11:06] LABS: Activated Partial Thrombo Time 28.8 Seconds (26.0-36.0)
[2016-11-17] MEDS: Acetaminophen 325 MG TABLET PO PRN (15:58)
[2016-11-17] MEDS: Hyoscyamine SL 0.125 MG TAB.SUBL SL PRN (15:59)
[2016-11-17] MEDS: Insulin DETEMIR 100 UNIT/ML X5UNITS SQ SCH (20:50)
[2016-11-18] MEDS: Hyoscyamine SL 0.125 MG TAB.SUBL SL PRN (00:17)
[2016-11-18] MEDS ORDERED: Lidocaine Jelly 11 ml Syringe TP ONE (00:37)
[2016-11-18 05:48] LABS: Basophils # 0.1 K/mcL (0.0-0.2); Basophils % 0.6 %; Eosinophils # 0.2 K/mcL (0.0-0.6); Eosinophils % 2.1 %; Hemoglobin 11.9 g/dL (12.9-16.9); Lymphocytes # 1.4 K/mcL (0.6-4.6); Lymphocytes % 12.7 %; Mean Corpuscular Hemoglobin 29.1 pg (28.0-33.3); Mean Corpuscular Volume 85.6 fL (83.0-100.0); Mean Platelet Volume 11.1 fL (9.4-12.4); Monocytes % 9.3 %; Platelet Count 172 K/mcL (140-400); Red Blood Count 4.09 M/mcL (4.19-5.50); Red Cell Distribution Width 13.7 % (11.5-14.5); Segmented Neutrophils % 74.3 %
[2016-11-18 06:02] LABS: Alanine Aminotransferase 13 Units/L (0-55); Albumin 3.1 g/dL (3.5-5.0); Albumin/Globulin Ratio 0.9 (1.1-2.2); Alkaline Phosphatase 70 Units/L (38-126); Aspartate Amino Transferase 12 Units/L (5-34); BUN/Creatinine Ratio 30 (6-26); Blood Urea Nitrogen 34 mg/dL (8-26); Calcium 9.5 mg/dL (8.6-10.8); Carbon Dioxide 23 mEq/L (19-29); Chloride 107 mEq/L (98-109); Globulin 3.4 g/dL (2.4-3.5); Glucose 111 mg/dL (70-99); Osmolality,Calculated 294 (280-300); Potassium 3.8 mEq/L (3.5-4.5); Sodium 138 mEq/L (136-145); Total Protein 6.5 g/dL (6.0-8.3); eGFR For African Americans > 60 (> 60); eGFR For Non-African Americans > 60 (> 60)
[2016-11-18 07:31] VITALS: BP 120/63
--- NOTE | 2016-11-18 08:37 | Discharge Summary ---
<FranciscopauCarlos Natanael - Last Filed: 11/18/16 17:03> Date of Encounter: 11/18/16 Time of Encounter: 08:31 - Discharge Diagnosis (1) Anemia Priority: Secondary Status: Acute Qualifiers: Anemia type: unspecified type Qualified Code(s): D64.9 - Anemia, unspecified (2) Gross hematuria Priority: Primary Status: Acute (3) CAD (coronary artery disease) Priority: Secondary Status: Chronic Qualifiers: Coronary Disease-Associated Artery/Lesion type: unspecified vessel or lesion type [place] vs. transplanted heart: [place] heart Associated angina: angina presence unspecified Qualified Code(s): I25.10 - Atherosclerotic heart disease of [place] coronary artery without angina pectoris (4) Congestive heart failure Priority: Secondary Status: Chronic Qualifiers: Congestive heart failure type: combined Congestive heart failure chronicity : chronic Qualified Code(s): I50.42 - Chronic combined systolic (congestive) and diastolic (congestive) heart failure (5) HTN (hypertension) Priority: Secondary Status: Chronic Qualifiers: Hypertension type: essential hypertension Qualified Code(s): I10 - Essential (primary) hypertension (6) IDDM (insulin dependent diabetes mellitus) Priority: Secondary Status: Chronic (7) HLD (hyperlipidemia) Priority: Secondary Status: Chronic Qualifiers: Hyperlipidemia type: pure hypercholesterolemia Qualified Code(s): E78.00 - Pure hypercholesterolemia, unspecified; E78.0 - Pure hypercholesterolemia (8) History of smoking Priority: Secondary Status: Chronic (9) Ischemic cardiomyopathy Priority: Secondary Status: Chronic (10) Pacemaker Priority: Secondary Status: Chronic (11) Paroxysmal a-fib Priority: Secondary Status: Chronic - Discharge Medications Home Medications: Aspirin Enteric Coated [Aspirin EC] 81 mg PO DAILY #30 tablet.dr 02/21/16 [Rx] Furosemide [Lasix] 40 mg PO DAILY #30 tablet 02/21/16 [Rx] Nitroglycerin [Nitrostat] 0.4 mg SL Q5M PRN 10/01/16 [History] amLODIPine [Norvasc] 10 mg PO DAILY #30 tab 10/05/16 [Rx] Atorvastatin [Lipitor] 40 mg PO HS #30 tablet 11/04/16 [Rx] Carvedilol [Coreg] 3.125 mg PO BIDWM 30 Days 11/04/16 [Rx] Lisinopril [Zestril] 2.5 mg PO DAILY #30 tab 11/04/16 [Rx] Omeprazole [PriLOSEC] 20 mg PO BIDAC #60 11/04/16 [Rx] Ticagrelor [Brilinta] 90 mg PO BID 30 Days 11/04/16 [Rx] Isosorbide MONOnitrate (24 HR) [Imdur] 120 mg PO DAILY #30 tab 11/11/16 [Rx] Ascorbate Calcium [Vitamin C] 500 mg PO DAILY 11/14/16 [History] Cyanocobalamin (Vitamin B-12) [Vitamin B12] 1,000 mcg PO DAILY 11/14/16 [History ] Multivitamin [One Daily Essential] 1 tab PO DAILY 11/14/16 [History] metFORMIN [Glucophage] 500 mg PO BID 11/14/16 [History] Allergies/Adverse Reactions: 3 Allergy/AdvReac Type Severity Reaction Status Date / Time Oxycodone [From Percocet] Allergy Hives Verified 10/19/16 17:21 tramadol Allergy Hives Verified 10/19/16 17:21 Date of admission: 11/17/16 16:20 Primary care physician: PCP NONE Discharging clinician: Carlos Martinez Anticipated date of discharge: 11/18/16 - Patient Status Disposition: Home Health Service Condition: Good Functional capacity at discharge: uses cane/walker Overall status at discharge: patient is progressing back to baseline - Discharge Instructions Instructions: Anemia (GEN), Urinary Leg Bag (GEN) Follow Up With: Pollo Woods MD [Partnered Physician] - 11/23/16 9:30 am Lance Cronin MD [Partnered Physician] - 11/25/16 3:15 pm (3-5 DAYS FOR RE- EVALUATION) Additional Instructions: Follow up with [facility] to have Wang Catheter removed and further evaluation for urinary bleeding. Follow up with PCP in the next 3-5 days for re-evaluation Return to the emergency department if you have recurrence of urinary bleeding. - Diet and Activity Activity: increase activity as tolerated Diet: advance to your usual diet Interval History: Mr. Pizarro 76-year-old male presented to the emergency department with gross hematuria. He is on triple therapy of Xarelto, Brillenta, aspirin for proximal atrial fibrillation, drug-eluting stent recently placed. Upon admission to the general medical floor his Lasix cardiac monitoring, Xarelto was held and urology was consulted. Urology opted to do continuous bladder irrigation and at that time had no indication to go to the OR, his vitals remained stable throughout his inpatient stay. Laboratory draws were collected demonstrated a stable hemoglobin throughout his inpatient stay. Patient tolerated bladder irrigation and after discontinuation his urine continued to be yellow in color and flowed appropriately into the catheter. He did have some penile irritation from the indwelling catheter remained stable. Patient was seen and evaluated on 11/18/2016 and deemed stable for discharge home with Wang catheter in place and follow-up with urology. Hospital course: Mr. Pizarro is a 76 year old male - Time Spent with Patient Total time spent providing and/or coordinating discharge services: - Constitutional Vitals: Temp Pulse Resp BP Pulse Ox 97.9 F 67 14 120/63 98 11/18/16 06:48 11/18/16 06:48 11/18/16 06:48 11/18/16 06:48 11/18/16 06:48 General appearance: Present: cooperative, A&O X 3, no acute distress, answers questions appropriately Exam: General appearance: Present: cooperative, A&O X 3, no acute distress, answers questions appropriately Exam: General: Patient alert, awake, oriented 3, interactive, in no acute distress HEENT: Normocephalic, atraumatic, pupils equal reactive to light, nasal cavity patent and open septum median position, oral mucosa moist, uvula midline, neck supple trachea midline no palpable lymphadenopathy, no thyromegaly. Chest: Symmetric bilateral correlating with respiratory effort, effort nonlabored. Pacemaker in left chest Cardiac: Regular rate and rhythm, positive S1, S2, no bruits appreciated bilateral carotids, Radial pulses 2+ bilateral, posterior tibial and dorsal pedal pulses 2+ bilateral. Respiratory: Clear to auscultation all lung carrero Abdomen: Slightly distended tenderness appreciated the supra pubic palpation, positive bowel sounds, no palpable masses appreciated on examination : Patient has a Wang catheter in place with bleeding around the urethra, yellow urine in Wang without sediment. Extremities: Symmetric bilateral, no erythema or edema, patient moving all 4 extremities spontaneously. Neurologic: No focal deficits appreciated on examination. Face symmetric, muscle strength symmetric bilateral upper and lower extremities. - VTE Documentation of Mechanical Device: Intermittent pneumatic compression device <Atul Gardner T - Last Filed: 11/18/16 18:08> Date of Encounter: 11/18/16 Date of admission: 11/17/16 16:20 Primary care physician: PCP NONE Hospital course: Mr. Pizarro is a 76 year old male - Time Spent with Patient Total time spent providing and/or coordinating discharge services: - Constitutional Vitals: Temp Pulse Resp BP Pulse Ox 97.9 F 67 14 120/63 98 11/18/16 06:48 11/18/16 06:48 11/18/16 06:48 11/18/16 06:48 11/18/16 07:20 - Attending Attestation I have independently seen and examined this patient on 11/18. I have reviewed his EMR and discussed plan of care with the resident, the patient 76 YO M with PMH of CAD s/p JATINDER 10/2016, Afib, Combined CHF, HT, HLD, DM, Physical deconditioning He was admitted and being managed for gross hematuria, suspected UTI. He has been off CBI and his urine is clear. He had some bleeding willa-urethra yesterday 11/17, but this has since resolved. His suprapubic pain has resolved. His Hb is stable and He is hemodynamically stable. Eliquis has been held since admission, but he is on ASA and Brilinta Physical exam: VSS, not in distress, Chest is CTAB, HS S1, S2, Afib, Abdomen is benign, Wang catheter draining clear urine. No pedal edema. Labs and Imaging reviewed: Hb is stable, renal function is at baseline Patient is clinically stable for discharge. Will continue to hold Eliquis till cleared by as out-patient. Follow up with cardiology and Urology Rest of details as in resident physicians documentation
[2016-11-18] MEDS: Ascorbic Acid 500 MG TABLET PO SCH (08:56)
[2016-11-18] MEDS: Cyanocobalamin (B-12) 1,000 MCG TABLET PO SCH (08:57)
[2016-11-18] MEDS: Furosemide 40 MG TABLET PO SCH (08:57)
[2016-11-18] MEDS: Isosorbide MONOnitrate (24 HR) 60 MG TAB.ER.24H PO SCH (08:57)
[2016-11-18] MEDS: Aspirin Enteric Coated 81 MG Tablet PO SCH (08:57)
[2016-11-18] MEDS: cephALEXin 500 MG CAPSULE PO SCH (08:57)
[2016-11-18] MEDS: *HR* Ticagrelor 90 MG TABLET PO SCH (08:57)
[2016-11-18] MEDS: Multivit/Ca/Min/Fe/FA 1 TAB TABLET PO SCH (08:57)
[2016-11-18] MEDS: amLODIPine 5 MG TABLET PO SCH (08:58)
[2016-11-18] MEDS: Insulin LISPRO 300 UNITS/3 ML VIAL SQ SCH (08:58)
--- NOTE | 2016-11-18 09:09 | Physician Discharge Referral ---
Home Health/Hosp Referral Info Transfer to: Home Health Provider in Charge Post Discharge: PCP - Diagnosis (1) Anemia Priority: Primary Status: Acute (2) Gross hematuria Priority: Primary Status: Acute (3) CAD (coronary artery disease) Priority: Secondary Status: Chronic (4) Congestive heart failure Priority: Secondary Status: Chronic (5) HTN (hypertension) Priority: Secondary Status: Chronic (6) IDDM (insulin dependent diabetes mellitus) Priority: Secondary Status: Chronic (7) HLD (hyperlipidemia) Priority: Secondary Status: Chronic (8) History of smoking Priority: Secondary Status: Chronic (9) Ischemic cardiomyopathy Priority: Secondary Status: Chronic (10) Pacemaker Priority: Secondary Status: Chronic (11) Paroxysmal a-fib Priority: Secondary Status: Chronic - Respiratory Orders Smoking Cessation: Smoking cessation has been advised. For more information, call the [place] Tobacco Quit Line at 5-039-JUBR-NOW. - Diet/Nutrition Diet/Nutrition Orders: Cardiac - Activity Activity Orders: Ambulate, Walker - Services Needed Following services are medically necessary services: Nursing, Home Health Aide, Physical Therapy, Occupational Therapy - Transfer Medications Home Medications: Aspirin Enteric Coated [Aspirin EC] 81 mg PO DAILY #30 tablet.dr 02/21/16 [Rx] Furosemide [Lasix] 40 mg PO DAILY #30 tablet 02/21/16 [Rx] Nitroglycerin [Nitrostat] 0.4 mg SL Q5M PRN 10/01/16 [History] amLODIPine [Norvasc] 10 mg PO DAILY #30 tab 10/05/16 [Rx] Atorvastatin [Lipitor] 40 mg PO HS #30 tablet 11/04/16 [Rx] Carvedilol [Coreg] 3.125 mg PO BIDWM 30 Days 11/04/16 [Rx] Lisinopril [Zestril] 2.5 mg PO DAILY #30 tab 11/04/16 [Rx] Omeprazole [PriLOSEC] 20 mg PO BIDAC #60 11/04/16 [Rx] Ticagrelor [Brilinta] 90 mg PO BID 30 Days 11/04/16 [Rx] Isosorbide MONOnitrate (24 HR) [Imdur] 120 mg PO DAILY #30 tab 11/11/16 [Rx] Ascorbate Calcium [Vitamin C] 500 mg PO DAILY 11/14/16 [History] Cyanocobalamin (Vitamin B-12) [Vitamin B12] 1,000 mcg PO DAILY 11/14/16 [History ] Multivitamin [One Daily Essential] 1 tab PO DAILY 11/14/16 [History] metFORMIN [Glucophage] 500 mg PO BID 11/14/16 [History] Allergies/Adverse Reactions: 3 Allergy/AdvReac Type Severity Reaction Status Date / Time Oxycodone [From Percocet] Allergy Hives Verified 10/19/16 17:21 tramadol Allergy Hives Verified 10/19/16 17:21 Certification: Further, I certify that my clinical findings support that this patient is homebound (i.e. absences from home require considerable and taxing effort and are for medical reasons or worship services or infrequently or short duration when for other reasons) because: Homebound Reason: Patient requires assistance of a person or device to safely leave home, Leaving home requires considerable and taxing effort due to condition Attestation: My signature below is to certify that this patient is under my care and that I, or nurse practitioner, or a physician's research program assistant working with me, has a face-to -face encounter with this patient.
[2016-11-18] MEDS: *HR* HYDROcodone/Acet 5/325 mg TABLET PO PRN (09:46)
== END 2016-11-18 13:15 | disposition home health service (06) | DRG 696 ==
LOC: EMEROO 10:32 → 3ANU 10:32 → SUATTDRO 12:54 → 3ANU 13:14
PROVIDERS: ADMIT Internal Medicine; ATTEND Internal Medicine

== ENCOUNTER 2016-11-21 21:50 | Observation (INO) ==
[2016-11-21] MEDS ORDERED: 0.9 % Sodium Chloride 500 ML IVC ONE (22:22)
[2016-11-21] MEDS ORDERED: Nitroglycerin 0.4 MG TAB.SUBL SL ONE (22:22)
--- NOTE | 2016-11-21 22:40 | Emergency Department Note ---
Disposition Clinical Impression: Chest pain, Elevated troponin Disposition: Admitted As Inpatient Condition: Good Time of Disposition: 23:28 Chest Pain HPI - General Chief Complaint: ED Chest Pain Stated Complaint: cp Time Seen by Provider: 11/21/16 21:59 Source: patient, EMS Mode of arrival: EMS Limitations: no limitations Vital Signs Reviewed: Yes Nursing Notes Reviewed: Yes - History of Present Illness HPI Narrative: Patient presents to the ED with the chief complaint of chest pain. Patient has a well-known history of chest pain and is status post CABG and multiple stents. Reports that he had the onset of centralized and right-sided chest pressure and heaviness approximately 6:30 this evening at rest. He got short of breath, nauseated. No diaphoresis or vomiting. States he is still having pain at this time despite having 2 nitroglycerin tablets. States this feels like his previous MIs. Severity scale (1-10): 10 - Related Data Home Medications Medication Instructions Recorded Confirmed Nitroglycerin [Nitrostat] 0.4 mg SL Q5M PRN 10/01/16 11/19/16 Ascorbate Calcium [Vitamin C] 500 mg PO DAILY 11/14/16 11/19/16 Cyanocobalamin (Vitamin B-12) 1,000 mcg PO DAILY 11/14/16 11/19/16 [Vitamin B12] Multivitamin [One Daily Essential] 1 tab PO DAILY 11/14/16 11/19/16 metFORMIN [Glucophage] 500 mg PO BID 11/14/16 11/19/16 Previous Rx's Medication Instructions Recorded Aspirin Enteric Coated [Aspirin EC] 81 mg PO DAILY #30 tablet. 02/21/16 Furosemide [Lasix] 40 mg PO DAILY #30 tablet 02/21/16 amLODIPine [Norvasc] 10 mg PO DAILY #30 tab 10/05/16 Atorvastatin [Lipitor] 40 mg PO HS #30 tablet 11/04/16 Carvedilol [Coreg] 3.125 mg PO BIDWM 30 Days 11/04/16 Lisinopril [Zestril] 2.5 mg PO DAILY #30 tab 11/04/16 Omeprazole [PriLOSEC] 20 mg PO BIDAC #60 11/04/16 Ticagrelor [Brilinta] 90 mg PO BID 30 Days 11/04/16 Isosorbide MONOnitrate (24 HR) 120 mg PO DAILY #30 tab 11/11/16 [Imdur] levoFLOXacin [Levofloxacin] 500 mg PO DAILY #7 tablet 11/21/16 Allergies Allergy/AdvReac Type Severity Reaction Status Date / Time Oxycodone [From Percocet] Allergy Hives Verified 11/19/16 09:42 tramadol Allergy Hives Verified 11/19/16 09:42 All systems ED: reviewed and negative except as stated. Constitutional: Denies: fever Cardiovascular: Reports: chest pain. Denies: dyspnea on exertion Respiratory: Reports: dyspnea Gastrointestinal: Reports: nausea. Denies: abdominal pain, vomiting Chest Pain PMH - Past Medical History Medical history: Reports: asthma, atrial fibrillation, coronary artery disease, CVA, diabetes, hypertension, myocardial infarction, thyroid disease Surgical history: Reports: angioplasty/stent, cholecystectomy, coronary bypass ( CABG), pacemaker/AICD Psychiatric history: Reports: no psych history - Social History Smoking Status: Never smoker Alcohol use: Reports: none Drug use: Reports: none Physical Exam - General Limitations: no limitations General appearance: alert, in no apparent distress - Head Head exam: atraumatic, normocephalic, normal inspection - Eye Eye exam: Present: normal appearance, PERRL, EOMI - Chest Chest inspection: Present: normal inspection, symmetric chest wall rise - Respiratory Respiratory exam: Present: normal lung sounds bilaterally - Cardiovascular Cardiovascular exam: Present: regular rate, normal rhythm, normal heart sounds - Abdominal Exam Abdominal exam: Present: soft, tenderness. Absent: distention, guarding, rebound Abdominal tenderness: Present: LUQ, epigastrium, mild - Extremities Exam Extremities exam: Present: normal capillary refill - Neurological Exam Neurological exam: Present: alert, oriented X3 - Psychiatric Psychiatric exam: Present: normal affect, normal mood - Skin Skin exam: Present: warm, dry, intact, normal color Course Course Narrative: 68-year-old male presenting with chest pain consistent with his previous angina. Will workup and admit. Vital Signs Temperature 97.1 F L 11/21/16 21:52 Pulse Rate 65 11/21/16 21:52 Respiratory Rate 18 11/21/16 21:52 Blood Pressure 138/78 11/21/16 21:52 O2 Sat by Pulse Oximetry 100 11/21/16 21:52 Temperature 97.1 F L 11/21/16 21:52 Pulse Rate 73 11/21/16 22:56 Respiratory Rate 14 11/21/16 22:56 Blood Pressure 115/87 11/21/16 22:56 O2 Sat by Pulse Oximetry 98 11/21/16 22:56 Oxygen Delivery Oxygen Delivery Room Air Chest Pain - Medical Records Medical records reviewed: Yes I reviewed the patient's medical records. - Lab Data Lab results reviewed: Yes I reviewed the patient's lab results. Result diagrams: 11/21/16 22:30 11/21/16 22:30 Lab Results 11/21/16 11/21/16 11/21/16 Range/Units 22:30 22:30 22:30 WBC 10.0 (4.3-11.1) K/mcL RBC 4.50 (4.19-5.50) M/mcL Hgb 13.0 (12.9-16.9) g/dL Hct 37.6 (37.5-50.1) % MCV 83.6 (83.0-100.0) fL MCH 28.9 (28.0-33.3) pg MCHC 34.6 (31.6-35.5) g/dL RDW 13.2 (11.5-14.5) % Plt Count 225 (140-400) K/mcL MPV 10.8 (9.4-12.4) fL Immature Gran % 0.5 (0-4) % Seg Neutrophils % 66.4 % Lymphocytes % 19.8 % Monocytes % 9.5 % Eosinophils % 3.0 % Basophils % 0.8 % Neutrophils # 6.6 (1.6-8.9) K/mcL Lymphocytes # 2.0 (0.6-4.6) K/mcL Monocytes # 1.0 (0.0-1.3) K/mcL Eosinophils # 0.3 (0.0-0.6) K/mcL Basophils # 0.1 (0.0-0.2) K/mcL PT 13.2 H (9.4-12.1) Seconds INR 1.2 APTT 24.8 L (26.0-36.0) Seconds Sodium (136-145) mEq/L Potassium (3.5-4.5) mEq/L Chloride (98-109) mEq/L Carbon Dioxide (19-29) mEq/L BUN (8-26) mg/dL Creatinine (0.72-1.25) mg/dL Est GFR ( Amer) (> 60) Est GFR (Non-Af Amer) (> 60) BUN/Creatinine Ratio (6-26) Glucose (70-99) mg/dL Calculated Osmolality (280-300) Calcium (8.6-10.8) mg/dL Troponin I (0-0.03) ng/mL B-Natriuretic Peptide 199 H (0-100) pg/mL Lipase (8-78) Units/L 11/21/16 11/21/16 Range/Units 22:30 22:30 WBC (4.3-11.1) K/mcL RBC (4.19-5.50) M/mcL Hgb (12.9-16.9) g/dL Hct (37.5-50.1) % MCV (83.0-100.0) fL MCH (28.0-33.3) pg MCHC (31.6-35.5) g/dL RDW (11.5-14.5) % Plt Count (140-400) K/mcL MPV (9.4-12.4) fL Immature Gran % (0-4) % Seg Neutrophils % % Lymphocytes % % Monocytes % % Eosinophils % % Basophils % % Neutrophils # (1.6-8.9) K/mcL Lymphocytes # (0.6-4.6) K/mcL Monocytes # (0.0-1.3) K/mcL Eosinophils # (0.0-0.6) K/mcL Basophils # (0.0-0.2) K/mcL PT (9.4-12.1) Seconds INR APTT (26.0-36.0) Seconds Sodium 136 (136-145) mEq/L Potassium 3.5 (3.5-4.5) mEq/L Chloride 102 (98-109) mEq/L Carbon Dioxide 22 (19-29) mEq/L BUN 30 H (8-26) mg/dL Creatinine 1.57 H D (0.72-1.25) mg/dL Est GFR ( Amer) 52 L (> 60) Est GFR (Non-Af Amer) 43 L (> 60) BUN/Creatinine Ratio 19 (6-26) Glucose 141 H (70-99) mg/dL Calculated Osmolality 291 (280-300) Calcium 10.2 (8.6-10.8) mg/dL Troponin I 0.15 H* (0-0.03) ng/mL B-Natriuretic Peptide (0-100) pg/mL Lipase 19 (8-78) Units/L - Radiology Data Radiology results reviewed: Yes I reviewed the patient's radiology results. Chest X-Ray 11/21/16 22:22 IMPRESSION: No evidence of acute disease. D/ / 11/21/2016 22:45:44 Shay Denton MD / Elizabeth Desai Interpreting Provider: Shay Denton MD - EKG Data EKG attestation: Yes I reviewed and interpreted this EKG. EKG results narrative: Paced rhythm, rate 70, AK interval 153, QRS 205, QTC 537, similar morphology to previous Attestation Statement - Attestation Attestation: I, Alejandro Velásquez MD, personally evaluated this patient and discussed their management with the resident physician. I reviewed the resident's note and agree with the documented findings, medical decision making, and plan of care. 76-year-old male presents to the emergency department by EMS with a complaint of mid and bilateral upper chest pain which started about 6 PM this evening. The pain is been constant since onset. Patient took 2 nitroglycerin at home with no relief. He also received aspirin and nitroglycerin per EMS with no relief. He describes the pain as like a pressure pushing against his chest. Patient has a long history of recurrent chest pains and has a pacemaker. He did just have an HI about 3 weeks ago and had a cardiac catheter with stents placed. No radiation of the pain. No shortness of breath. Pain is worse with palpation of the chest wall. On examination patient is a well-developed well-nourished well-appearing elderly male in no acute distress. He is alert and oriented 3. There is no cyanosis or diaphoresis. Breath sounds are clear and equal bilaterally. There is some tenderness to palpation over the anterior chest wall which reproduces the patient's chest pains. Heart is irregular. Normal rate. Abdomen is soft with moderate epigastric and upper abdominal tenderness. No tympany or distention. Normal bowel sounds. EKG shows a paced rhythm. No acute changes compared to prior EKG. Labs reviewed. Troponin elevated at 0.15. Chest x-ray negative. The hospitalist, Dr. Mccann, was consulted and accepted admission of the patient.
[2016-11-21 22:44] LABS: Basophils # 0.1 K/mcL (0.0-0.2); Basophils % 0.8 %; Eosinophils # 0.3 K/mcL (0.0-0.6); Hematocrit 37.6 % (37.5-50.1); Immature Granulocytes % 0.5 % (0-4); Lymphocytes % 19.8 %; Mean Corpuscular HGB Conc 34.6 g/dL (31.6-35.5); Mean Corpuscular Hemoglobin 28.9 pg (28.0-33.3); Mean Corpuscular Volume 83.6 fL (83.0-100.0); Mean Platelet Volume 10.8 fL (9.4-12.4); Monocytes % 9.5 %; Neutrophils # 6.6 K/mcL (1.6-8.9); Platelet Count 225 K/mcL (140-400); Red Cell Distribution Width 13.2 % (11.5-14.5); Segmented Neutrophils % 66.4 %
[2016-11-21 22:49] LABS: INR 1.2; Prothrombin Time 13.2 Seconds (9.4-12.1)
[2016-11-21 22:52] LABS: Activated Partial Thrombo Time 24.8 Seconds (26.0-36.0)
[2016-11-21 22:57] LABS: Calcium 10.2 mg/dL (8.6-10.8); Potassium 3.5 mEq/L (3.5-4.5)
[2016-11-21] MEDS ORDERED: Aspirin 325 MG TABLET PO ONE (23:11)
[2016-11-22 00:14] LABS: Bilirubin,Urine Small (Negative); Blood,Urine Large (Negative); Clarity,Urine Turbid (Clear); Color,Urine Dark Yellow (Yellow); Glucose,Urine (UA) Normal (Normal); Ketones,Urine Negative (Negative); Leukocyte Esterase,Urine Moderate (Negative); Nitrite,Urine Negative (Negative); PH,Urine 5.5 pH Units (5.0-8.0); Protein,Urine >=300 mg/dL (Neg-Trace); Specific Gravity,Urine 1.028 (1.010-1.025); Urobilinogen,Urine Normal (Normal)
[2016-11-22 00:15] LABS: RBC,Urine TNTC per hpf (0-3); WBC,Urine 50-100 per hpf (0-3)
[2016-11-22 00:23] LABS: Hyaline Casts,Urine Few per lpf (None-Few); Squamous Epithelial Cell,Urine Moderate per lpf (None-Few)
[2016-11-22 00:24] LABS: Bacteria,Urine Many per hpf (None-Few); Mucus,Urine Moderate (Few)
[2016-11-22] MEDS ORDERED: Ondansetron 4 MG/2 ML VIAL IVP PRN (00:58)
[2016-11-22] MEDS ORDERED: Naloxone 0.4 MG/ML INJ IVP PRN (00:58)
[2016-11-22] MEDS ORDERED: Nitroglycerin 0.4 MG TAB.SUBL SL PRN (01:03)
[2016-11-22] MEDS ORDERED: *HR* Dextrose 50 % in Water (Syg) 50 ML SYRINGE IVP PRN (01:03)
[2016-11-22] MEDS ORDERED: Dextrose Gel 15 GM PO PRN ×2 (01:03)
[2016-11-22] MEDS ORDERED: D5% in Water 1,000 ML IVC PRN (01:03)
--- NOTE | 2016-11-22 01:27 | Internal Med History&Physical ---
Date of Encounter: 11/22/16 Time of Encounter: 01:07 Assessment and Plan (1) Atypical chest pain Current visit: Yes Status: Acute Check serial cardiac enzymes continue home medication treat chest pain with nitroglycerin only as needed (2) GERD (gastroesophageal reflux disease) Current visit: Yes Status: Chronic PPI patient had endoscopy quite recently Qualifiers: Esophagitis presence: without esophagitis Qualified Code(s): K21.9 - Gastro -esophageal reflux disease without esophagitis (3) IDDM (insulin dependent diabetes mellitus) Current visit: Yes Status: Chronic Accu-Chek 4 times a day with sliding scale coverage daily (4) CAD (coronary artery disease) Current visit: Yes Status: Chronic Please see recent records but patient has known cardiac disease and has multiple stents recently as well as history of RI Qualifiers: Coronary Disease-Associated Artery/Lesion type: unspecified vessel or lesion type [place] vs. transplanted heart: [place] heart Associated angina: angina presence unspecified Qualified Code(s): I25.10 - Atherosclerotic heart disease of [place] coronary artery without angina pectoris (5) HTN (hypertension) Current visit: Yes Status: Chronic Daily blood pressure monitoring continue home medication Qualifiers: Hypertension type: essential hypertension Qualified Code(s): I10 - Essential (primary) hypertension (6) HLD (hyperlipidemia) Current visit: Yes Status: Chronic Qualifiers: Hyperlipidemia type: pure hypercholesterolemia Qualified Code(s): E78.00 - Pure hypercholesterolemia, unspecified; E78.0 - Pure hypercholesterolemia (7) DVT prophylaxis Current visit: Yes Status: Acute SCDs Internal Medicine - H&P: HPI Chief complaint: Chest pain Admitted From: Home Plans for Post Hospital Care: Home History of present illness: Mr. Pizarro is a 76 year old male who is very well-known to us due to his repeated admission on multiple occasion and just last few weeks. Apparently he has history of coronary artery disease and has had multiple stents recently and at one time his stents clogged up and he needed emergency cardiac catheter. In any case since then he has been returning with atypical chest pain. He underwent multiple cardiac evaluation and testing as well as gastrology evaluation with endoscopy including EGD and colonoscopy. So far all have been unremarkable. Today he has returned with chest pain which is substernal however his EKG is unremarkable and his third troponin is 0.15 which it seems like are coming down from previous RI. Chest pain is localized does not seem to radiate elsewhere and there are no other aggravating or relieving factors. He certainly does not appear in much pain. We will try to discourage narcotic pain medication. Past Med Surg Social Fam HX - Past Medical History Medical history: asthma, atrial fibrillation, coronary artery disease, CVA, diabetes, hypertension, myocardial infarction, thyroid disease Psychiatric history: no psych history - Past Surgical History Surgical History: angioplasty/stent, cholecystectomy, coronary bypass (CABG), pacemaker/AICD - Social History Smoking Status: Never smoker Smokeless Tobacco Status: No Alcohol use: none Drug use: none - Family History Grandfather Family Member Ethnicity: Non- Living Status: Hx Family Cardiac Disorders: Yes ([place]) Mother Family Member Ethnicity: Non- Living Status: Hx Family Neurologic Disorders: Yes (CVA) Father Adopted: No Family Member Ethnicity: Non- Living Status: Hx Family Cardiac Disorders: No Hx Family Respiratory Disorders: No Hx Family Cancer: Yes Hx Family GI Disorders: No Hx Family Endocrine Disorder: No Hx Family Neuromuscular Disorders: No Hx Family Neurologic Disorders: No Hx Family HEENT Disorders: No Hx Family Autoimmune Disorders: No Internal Medicine - H&P: Meds Aspirin Enteric Coated [Aspirin EC] 81 mg PO DAILY #30 tablet. 02/21/16 [Rx] Furosemide [Lasix] 40 mg PO DAILY #30 tablet 02/21/16 [Rx] Nitroglycerin [Nitrostat] 0.4 mg SL Q5M PRN 10/01/16 [History] amLODIPine [Norvasc] 10 mg PO DAILY #30 tab 10/05/16 [Rx] Atorvastatin [Lipitor] 40 mg PO HS #30 tablet 11/04/16 [Rx] Carvedilol [Coreg] 3.125 mg PO BIDWM 30 Days 11/04/16 [Rx] Lisinopril [Zestril] 2.5 mg PO DAILY #30 tab 11/04/16 [Rx] Omeprazole [PriLOSEC] 20 mg PO BIDAC #60 11/04/16 [Rx] Ticagrelor [Brilinta] 90 mg PO BID 30 Days 11/04/16 [Rx] Isosorbide MONOnitrate (24 HR) [Imdur] 120 mg PO DAILY #30 tab 11/11/16 [Rx] Ascorbate Calcium [Vitamin C] 500 mg PO DAILY 11/14/16 [History] Cyanocobalamin (Vitamin B-12) [Vitamin B12] 1,000 mcg PO DAILY 11/14/16 [History ] Multivitamin [One Daily Essential] 1 tab PO DAILY 11/14/16 [History] metFORMIN [Glucophage] 500 mg PO BID 11/14/16 [History] levoFLOXacin [Levofloxacin] 500 mg PO DAILY #7 tablet 11/21/16 [Rx] 3 Allergy/AdvReac Type Severity Reaction Status Date / Time Oxycodone [From Percocet] Allergy Hives Verified 11/19/16 09:42 tramadol Allergy Hives Verified 11/19/16 09:42 All Systems PM: A 10-system review of systems was performed and is negative for pertinent findings except as documented above in the HPI. - Constitutional Constitutional: no chills, no fever(s), no night sweats - EENT Eyes: no change in vision, no discharge, no pain, no photophobia Ears: no ear discharge, no ear pain, no tinnitus Nose, mouth and throat: no dysphagia, no nasal discharge, no neck pain, no sore throat - Cardiovascular Cardiovascular ROS IM: no chest pain, no diaphoresis, no dyspnea, no lightheadedness, no palpitations, no syncope - Respiratory Respiratory: no cough, no dyspnea, no wheezing, no excessive phlegm production - Gastrointestinal Gastrointestinal: no abdominal pain, no diarrhea, no hematemesis, no hematochezia, no melena, no nausea, no vomiting - Musculoskeletal Musculoskeletal ROS IM: no numbness, no tingling - Integumentary Integumentary IM: no rash, no unusual bruising - Neurological Neurological ROS: no confusion, no convulsions, no focal weakness, no numbness, no tingling, no tremor(s) - Hematologic/Lymphatic Hematologic/Lymphatic: no easy bruising - Constitutional Vitals: Temp Pulse Resp BP Pulse Ox 97.6 F 67 16 146/80 97 11/22/16 00:10 11/22/16 00:10 11/22/16 00:10 11/22/16 00:10 11/22/16 00:10 - Head Head exam: Present: atraumatic, normocephalic - Eye Eye exam: Present: PERRL, conjuntiva pink, sclera anicteric Pupils: Present: PERRL - Neck Neck exam general surgery: Present: supple, trachea midline. Absent: lymphadenopathy - Respiratory Respiratory exam: Present: CTAB. Absent: accessory muscle use, rales, rhonchi, wheezes - Cardiovascular Cardiovascular exam: Present: RRR, +S1, +S2. Absent: diastolic murmur, gallop, rubs, systolic murmur - GI/Abdominal GI/Abdominal exam: Present: normal bowel sounds, soft, no peritoneal signs. Absent: distended, tenderness - Extremities Exam Extremities exam: Present: warm, radial pulses palpable and symmetrical. Absent : calf tenderness, cyanotic, pedal edema - Neurological Exam Neurological exam: Present: CN II-XII intact, oriented X3, no focal deficits. Absent: pronater drift, facial droop, speech deficit - Skin Skin exam: Present: dry, intact Internal Med - H&P Results - Labs CBC & Chem 7: 11/21/16 22:30 11/21/16 22:30 Labs: Urine 11/21/16 Range/Units 23:50 Urine Color Dark Yellow (Yellow) Urine Clarity Turbid A (Clear) Urine pH 5.5 (5.0-8.0) pH Units Ur Specific [place] 1.028 H (1.010-1.025) Urine Protein >=300 H (Neg-Trace) mg/dL Urine Glucose (UA) Normal (Normal) mg/dL
[2016-11-22] MEDS: Insulin LISPRO 300 UNITS/3 ML VIAL SQ SCH ×4 (01:29→17:05)
[2016-11-22] MEDS: Acetaminophen 325 MG TABLET PO PRN ×3 (03:49→23:03)
[2016-11-22] MEDS: Famotidine 20 MG/2 ML VIAL IVP SCH ×2 (05:41→17:06)
[2016-11-22] MEDS ORDERED: *HR* Metformin 500 MG TABLET PO SCH (09:00)
[2016-11-22] MEDS: Isosorbide MONOnitrate (24 HR) 60 MG TAB.ER.24H PO SCH (09:57)
[2016-11-22] MEDS: *HR* Ticagrelor 90 MG TABLET PO SCH ×2 (09:58→21:59)
[2016-11-22] MEDS: Aspirin Enteric Coated 81 MG Tablet PO SCH (09:58)
[2016-11-22] MEDS: Cyanocobalamin (B-12) 1,000 MCG TABLET PO SCH (09:58)
[2016-11-22] MEDS: Multivit/Ca/Min/Fe/FA 1 TAB TABLET PO SCH (09:58)
[2016-11-22] MEDS: amLODIPine 5 MG TABLET PO SCH (09:58)
[2016-11-22] MEDS: levoFLOXacin 500 MG TABLET PO SCH (09:58)
[2016-11-22] MEDS: Ascorbic Acid 500 MG TABLET PO SCH (09:59)
[2016-11-22] MEDS: Furosemide 40 MG TABLET PO SCH (09:59)
[2016-11-22] MEDS: MOM Conc 10 ML UD.LIQ PO PRN (11:13)
--- NOTE | 2016-11-22 15:50 | Event Note ---
Date of Encounter: 11/22/16 Time of Encounter: 15:47 ARF/acute on chronic renal failure, creatinine baseline is close to 1, currently is 1.5 start mild hydration UTI (has grown Staphylococcus epidermides in the past sensitive to doxycycline/ tetracyclines) Urine is clearing up at the moment with Levaquin, follow finer culture report, may add doxycycline if not improving May change Wang catheter Recent history of hematuria Elevated troponins, adynamic, likely secondary to demand ischemia, continue aspirin Brilinta, carvedilol
[2016-11-22] MEDS: 0.9 % Sodium Chloride 1,000 ML IVC SCH (17:05)
[2016-11-23 06:29] LABS: Hematocrit 34.7 % (37.5-50.1); Hemoglobin 11.8 g/dL (12.9-16.9); Mean Corpuscular Hemoglobin 28.9 pg (28.0-33.3); Mean Corpuscular Volume 84.8 fL (83.0-100.0); Platelet Count 191 K/mcL (140-400); Red Blood Count 4.09 M/mcL (4.19-5.50); Red Cell Distribution Width 13.3 % (11.5-14.5)
[2016-11-23 06:44] LABS: BUN/Creatinine Ratio 20 (6-26); Blood Urea Nitrogen 24 mg/dL (8-26); Calcium 9.4 mg/dL (8.6-10.8); Carbon Dioxide 23 mEq/L (19-29); Chloride 107 mEq/L (98-109); Glucose 105 mg/dL (70-99); Osmolality,Calculated 294 (280-300); Potassium 3.5 mEq/L (3.5-4.5); Sodium 140 mEq/L (136-145); eGFR For African Americans > 60 (> 60); eGFR For Non-African Americans 60 (> 60)
[2016-11-23] MEDS: Acetaminophen 325 MG TABLET PO PRN (06:49)
[2016-11-23] MEDS: Famotidine 20 MG/2 ML VIAL IVP SCH ×2 (06:50→17:12)
[2016-11-23] MEDS: Insulin LISPRO 300 UNITS/3 ML VIAL SQ SCH ×3 (07:46→17:12)
[2016-11-23] MEDS: Furosemide 40 MG TABLET PO SCH (07:47)
[2016-11-23] MEDS: Isosorbide MONOnitrate (24 HR) 60 MG TAB.ER.24H PO SCH (07:47)
[2016-11-23] MEDS: Aspirin Enteric Coated 81 MG Tablet PO SCH (07:48)
[2016-11-23] MEDS: Ascorbic Acid 500 MG TABLET PO SCH (07:49)
[2016-11-23] MEDS: Cyanocobalamin (B-12) 1,000 MCG TABLET PO SCH (07:49)
[2016-11-23] MEDS: Multivit/Ca/Min/Fe/FA 1 TAB TABLET PO SCH (07:50)
[2016-11-23] MEDS: *HR* Ticagrelor 90 MG TABLET PO SCH ×2 (07:51→19:31)
[2016-11-23] MEDS: amLODIPine 5 MG TABLET PO SCH (07:51)
[2016-11-23] MEDS: 0.9 % Sodium Chloride 1,000 ML IVC SCH (10:49)
--- NOTE | 2016-11-23 16:43 | Urology - Consult Note ---
Date of Encounter: 11/23/16 Time of Encounter: 16:41 - Assessment and Plan (1) Hematuria Current Visit: No Status: Acute Assessment and plan: His hematuria has resolved. We will need to closely monitor. If he begins to have rebleeding, we will need to replace his hematuria catheter. I will order a urine culture to confirm that he doesn't have bactiuria now that the catheter has been removed. Qualifiers: Qualified Code(s): R31.0 - Gross hematuria (2) Urinary retention Current Visit: No Status: Acute Assessment and plan: He has been able to void after removal of his catheter and his residual is okay. I will monitor for now, and we will hold off on placing a catheter at this time. Urology CN:HPI Consult date: 11/23/16 Reason for consult Urology: Gross Hematuria (t) Requesting physician: Preston Vela History of present illness: 76 year old man well known to the urology service with a history of hematuria who had a [address]. History was a bit obscure, but in looking through the notes, it seems that nursing staff noted purulent fluid emanating around the catheter. They contacted the hospitalist who gave an order to remove his catheter. He had some more purulent drainage and an order was placed to replace the catheter. The nursing staff was not able to pass a new catheter. This afternoon he says that he has been urinating well and his urine is clearing. He voided prior to arriving and he had clear urine in the urinal. He is noting some dysuria. He is on anticoagulants. A PVR was 153ml. Past Med Surg Social Fam HX - Past Medical History Medical history: asthma, atrial fibrillation, coronary artery disease, CVA, diabetes, hypertension, myocardial infarction, thyroid disease Psychiatric history: no psych history - Past Surgical History Surgical History: angioplasty/stent, cholecystectomy, coronary bypass (CABG), pacemaker/AICD - Social History Smoking Status: Never smoker Smokeless Tobacco Status: No Alcohol use: none Drug use: none - Family History Grandfather Family Member Ethnicity: Non- Living Status: Hx Family Cardiac Disorders: Yes ([place]) Mother Family Member Ethnicity: Non- Living Status: Hx Family Neurologic Disorders: Yes (CVA) Father Adopted: No Family Member Ethnicity: Non- Living Status: Hx Family Cardiac Disorders: No Hx Family Respiratory Disorders: No Hx Family Cancer: Yes Hx Family GI Disorders: No Hx Family Endocrine Disorder: No Hx Family Neuromuscular Disorders: No Hx Family Neurologic Disorders: No Hx Family HEENT Disorders: No Hx Family Autoimmune Disorders: No Medications and Allergies Aspirin Enteric Coated [Aspirin EC] 81 mg PO DAILY #30 tablet. 02/21/16 [Rx] Furosemide [Lasix] 40 mg PO DAILY #30 tablet 02/21/16 [Rx] Nitroglycerin [Nitrostat] 0.4 mg SL Q5M PRN 10/01/16 [History] amLODIPine [Norvasc] 10 mg PO DAILY #30 tab 10/05/16 [Rx] Atorvastatin [Lipitor] 40 mg PO HS #30 tablet 11/04/16 [Rx] Carvedilol [Coreg] 3.125 mg PO BIDWM 30 Days 11/04/16 [Rx] Lisinopril [Zestril] 2.5 mg PO DAILY #30 tab 11/04/16 [Rx] Omeprazole [PriLOSEC] 20 mg PO BIDAC #60 11/04/16 [Rx] Ticagrelor [Brilinta] 90 mg PO BID 30 Days 11/04/16 [Rx] Isosorbide MONOnitrate (24 HR) [Imdur] 120 mg PO DAILY #30 tab 11/11/16 [Rx] Ascorbate Calcium [Vitamin C] 500 mg PO DAILY 11/14/16 [History] Cyanocobalamin (Vitamin B-12) [Vitamin B12] 1,000 mcg PO DAILY 11/14/16 [History ] Multivitamin [One Daily Essential] 1 tab PO DAILY 11/14/16 [History] metFORMIN [Glucophage] 500 mg PO BID 11/14/16 [History] levoFLOXacin [Levofloxacin] 500 mg PO DAILY #7 tablet 11/21/16 [Rx] 3 Allergy/AdvReac Type Severity Reaction Status Date / Time Oxycodone [From Percocet] Allergy Hives Verified 11/19/16 09:42 tramadol Allergy Hives Verified 11/19/16 09:42 Review of Systems - Constitutional no chills, no fever(s) - EENT Nose, mouth and throat: no dizziness - Cardiovascular no chest pain - Respiratory no dyspnea - Gastrointestinal no nausea, no vomiting - Genitourinary no flank pain, no hematuria - Musculoskeletal no back pain - Integumentary no erythema, no rash - Neurological no weakness - Psychiatric no suicidal ideation - Hematologic/Lymphatic no easy bleeding - Allergic/Immunologic no wheezing Exam Initial Vital Signs Temp Pulse Resp BP Pulse Ox 97.1 F L 65 18 138/78 100 11/21/16 21:52 11/21/16 21:52 11/21/16 21:52 11/21/16 21:52 11/21/16 21:52 - General physical appearance Present: well developed, well nourished, no distress - Eyes Absent: icteric - ENT Present: normal nares - Neck Present: trachea midline - Respiratory Present: normal respiratory effort - Cardiovascular Cardiovascular exam IM: RRR - Abdomen Abdomen: Present: soft - Genitourinary normal penis with no external lesions Urology Results - Labs 11/23/16 05:36 11/23/16 05:36 Abnormal lab results RBC 4.09 M/mcL (4.19-5.50) L 11/23/16 05:36 Hgb 11.8 g/dL (12.9-16.9) L 11/23/16 05:36 Hct 34.7 % (37.5-50.1) L 11/23/16 05:36 PT 13.2 Seconds (9.4-12.1) H 11/21/16 22:30 APTT 24.8 Seconds (26.0-36.0) L 11/21/16 22:30 Glucose 105 mg/dL (70-99) H 11/23/16 05:36 POC Glucose 180 (58-89) H 11/23/16 11:31 Troponin I 0.14 ng/mL (0-0.03) H* 11/22/16 14:39 B-Natriuretic Peptide 199 pg/mL (0-100) H 11/21/16 22:30 Urine Clarity Turbid (Clear) A 11/21/16 23:50 Ur Specific [place] 1.028 (1.010-1.025) H 11/21/16 23:50 Urine Protein >=300 mg/dL (Neg-Trace) H 11/21/16 23:50 Urine Blood Large (Negative) H 11/21/16 23:50 Urine Bilirubin Small (Negative) H 11/21/16 23:50 Ur Leukocyte Esterase Moderate (Negative) H 11/21/16 23:50 Urine Microscopic RBC TNTC per hpf (0-3) H 11/21/16 23:50 Urine Microscopic WBC 50-100 per hpf (0-3) H 11/21/16 23:50 Ur Squamous Epith Cells Moderate per lpf (None-Few) H 11/21/16 23:50 Urine Bacteria Many per hpf (None-Few) H 11/21/16 23:50 Urine Mucus Moderate (Few) H 11/21/16 23:50 Ur Culture Indicated? YES (NO) A 11/21/16 23:50 Diabetes panel 11/23/16 Range/Units 05:36 Sodium 140 (136-145) mEq/L Potassium 3.5 (3.5-4.5) mEq/L Chloride 107 (98-109) mEq/L Carbon Dioxide 23 (19-29) mEq/L BUN 24 (8-26) mg/dL Creatinine 1.18 (0.72-1.25) mg/dL Glucose 105 H (70-99) mg/dL Calcium 9.4 (8.6-10.8) mg/dL Calcium panel 11/23/16 Range/Units 05:36 Calcium 9.4 (8.6-10.8) mg/dL Pituitary panel 11/23/16 Range/Units 05:36 Sodium 140 (136-145) mEq/L Potassium 3.5 (3.5-4.5) mEq/L Chloride 107 (98-109) mEq/L Carbon Dioxide 23 (19-29) mEq/L BUN 24 (8-26) mg/dL Creatinine 1.18 (0.72-1.25) mg/dL Glucose 105 H (70-99) mg/dL Calcium 9.4 (8.6-10.8) mg/dL Adrenal panel 11/23/16 Range/Units 05:36 Sodium 140 (136-145) mEq/L Potassium 3.5 (3.5-4.5) mEq/L Chloride 107 (98-109) mEq/L Carbon Dioxide 23 (19-29) mEq/L BUN 24 (8-26) mg/dL Creatinine 1.18 (0.72-1.25) mg/dL Glucose 105 H (70-99) mg/dL Calcium 9.4 (8.6-10.8) mg/dL All other labs normal. - Imaging CT scan - abdomen: report reviewed, image reviewed CT scan - pelvis: report reviewed, image reviewed Consult Discharge Plan - Plan Referrals: Lance Cronin MD [Primary Care Provider] - 11/25/16 3:15 pm
--- NOTE | 2016-11-23 17:24 | Internal Med Progress Note ---
Date of Encounter: 11/23/16 Time of Encounter: 08:50 - Assessment and plan (1) Atypical chest pain Current Visit: Yes Status: Resolved Assessment and plan: Patient not having any chest pain at this time. Troponins trending down slowly. (2) CAD (coronary artery disease) Current Visit: Yes Status: Chronic Assessment and plan: With recent stents. Continue aspirin, Brilinta, lisinopril and beta blockers Qualifiers: Coronary Disease-Associated Artery/Lesion type: unspecified vessel or lesion type [place] vs. transplanted heart: [place] heart Associated angina: angina presence unspecified Qualified Code(s): I25.10 - Atherosclerotic heart disease of [place] coronary artery without angina pectoris (3) GERD (gastroesophageal reflux disease) Current Visit: Yes Status: Chronic Assessment and plan: Continue omeprazole Qualifiers: Esophagitis presence: without esophagitis Qualified Code(s): K21.9 - Gastro -esophageal reflux disease without esophagitis (4) HLD (hyperlipidemia) Current Visit: Yes Status: Chronic Assessment and plan: Continue Lipitor Qualifiers: Hyperlipidemia type: pure hypercholesterolemia Qualified Code(s): E78.00 - Pure hypercholesterolemia, unspecified; E78.0 - Pure hypercholesterolemia (5) HTN (hypertension) Current Visit: Yes Status: Chronic Assessment and plan: Blood pressure is well controlled at this time. Qualifiers: Hypertension type: essential hypertension Qualified Code(s): I10 - Essential (primary) hypertension (6) IDDM (insulin dependent diabetes mellitus) Current Visit: Yes Status: Chronic Assessment and plan: Fairly controlled. Continue current insulin regimen (7) DVT prophylaxis Current Visit: Yes Status: Acute - Subjective Interval history: Patient is awake and alert. He had complained of pain at Wang catheter site on his penis along with some purulent discharge and so the Wang catheter was removed. A new catheter was unable to be placed and this morning the patient complains of pain while passing urine along with some tiny blood clots. Denies any fever or chills. No back pain or flank pain. Not having any chest pain or shortness of breath at this time - Constitutional Vitals: Temp Pulse Resp BP Pulse Ox 98.4 F 69 15 112/69 96 11/23/16 15:11 11/23/16 15:11 11/23/16 15:11 11/23/16 15:11 11/23/16 15:11 General appearance: Present: cooperative, A&O X 3, answers questions appropriately - Respiratory Respiratory exam: Present: CTAB. Absent: accessory muscle use, rales, rhonchi, wheezes - Cardiovascular Cardiovascular exam: Present: RRR, +S1, +S2. Absent: diastolic murmur, gallop, rubs, systolic murmur - GI/Abdominal GI/Abdominal exam: Present: normal bowel sounds, soft, no peritoneal signs. Absent: distended, tenderness - Extremities Exam Extremities exam: Present: warm, radial pulses palpable and symmetrical. Absent : calf tenderness, cyanotic, pedal edema - Neurological Exam Neurological exam: Present: alert, oriented X3, no focal deficits. Absent: facial droop, speech deficit - Skin Skin exam: Present: dry, intact Internal Medicine: Result - Labs CBC & Chem 7: 11/23/16 05:36 11/23/16 05:36 Labs: Short CBC 11/23/16 Range/Units 05:36 WBC 9.1 (4.3-11.1) K/mcL Hgb 11.8 L (12.9-16.9) g/dL Hct 34.7 L (37.5-50.1) % Plt Count 191 (140-400) K/mcL BMP 11/23/16 05:36 Sodium 140 Potassium 3.5 Chloride 107 Carbon Dioxide 23 BUN 24 Creatinine 1.18 Glucose 105 H Calcium 9.4 - ABG Interpretation ABG results: PT/INR, D-dimer PT 13.2 Seconds (9.4-12.1) H 11/21/16 22:30 Consult Discharge Plan - Plan Referrals: Lance Cronin MD [Primary Care Provider] - 11/25/16 3:15 pm
[2016-11-23] MEDS: MOM Conc 10 ML UD.LIQ PO PRN (19:31)
[2016-11-24] MEDS: Famotidine 20 MG/2 ML VIAL IVP SCH (04:59)
[2016-11-24] MEDS: 0.9 % Sodium Chloride 1,000 ML IVC SCH (05:06)
--- NOTE | 2016-11-24 06:34 | Urology Progress Note ---
Date of Encounter: 11/24/16 Time of Encounter: 06:33 - Assessment and Plan (1) Hematuria Current Visit: No Status: Acute Assessment and plan: Resolved. No further urologic intervention is necessary. Qualifiers: Qualified Code(s): R31.0 - Gross hematuria (2) Urinary retention Current Visit: No Status: Acute Assessment and plan: He is voiding adequately. Urology will sign off. Please call with any questions. Progress Note Narrative: Doing well this morning. He was able to void overnight. Urine has been clear. Dysuria has resolved. Objective Initial Vital Signs Temp Pulse Resp BP Pulse Ox 97.1 F L 65 18 138/78 100 11/21/16 21:52 11/21/16 21:52 11/21/16 21:52 11/21/16 21:52 11/21/16 21:52 - General physical appearance Present: well developed, well nourished, no distress - Respiratory Present: normal respiratory effort - Abdomen Present: soft - Genitourinary Urine Appearance: Present: Clear - Labs 11/23/16 05:36 11/23/16 05:36 Diabetes panel 11/23/16 Range/Units 05:36 Sodium 140 (136-145) mEq/L Potassium 3.5 (3.5-4.5) mEq/L Chloride 107 (98-109) mEq/L Carbon Dioxide 23 (19-29) mEq/L BUN 24 (8-26) mg/dL Creatinine 1.18 (0.72-1.25) mg/dL Glucose 105 H (70-99) mg/dL Calcium 9.4 (8.6-10.8) mg/dL Calcium panel 11/23/16 Range/Units 05:36 Calcium 9.4 (8.6-10.8) mg/dL Pituitary panel 11/23/16 Range/Units 05:36 Sodium 140 (136-145) mEq/L Potassium 3.5 (3.5-4.5) mEq/L Chloride 107 (98-109) mEq/L Carbon Dioxide 23 (19-29) mEq/L BUN 24 (8-26) mg/dL Creatinine 1.18 (0.72-1.25) mg/dL Glucose 105 H (70-99) mg/dL Calcium 9.4 (8.6-10.8) mg/dL Adrenal panel 11/23/16 Range/Units 05:36 Sodium 140 (136-145) mEq/L Potassium 3.5 (3.5-4.5) mEq/L Chloride 107 (98-109) mEq/L Carbon Dioxide 23 (19-29) mEq/L BUN 24 (8-26) mg/dL Creatinine 1.18 (0.72-1.25) mg/dL Glucose 105 H (70-99) mg/dL Calcium 9.4 (8.6-10.8) mg/dL Consult Discharge Plan - Plan Referrals: Lance Cronin MD [Primary Care Provider] - 11/25/16 3:15 pm
[2016-11-24] MEDS: Insulin LISPRO 300 UNITS/3 ML VIAL SQ SCH ×2 (07:39→12:57)
[2016-11-24] MEDS: Ascorbic Acid 500 MG TABLET PO SCH (09:28)
[2016-11-24] MEDS: Multivit/Ca/Min/Fe/FA 1 TAB TABLET PO SCH (09:28)
[2016-11-24] MEDS: *HR* Ticagrelor 90 MG TABLET PO SCH (09:28)
[2016-11-24] MEDS: Isosorbide MONOnitrate (24 HR) 60 MG TAB.ER.24H PO SCH (09:28)
[2016-11-24] MEDS: Cyanocobalamin (B-12) 1,000 MCG TABLET PO SCH (09:28)
[2016-11-24] MEDS: Furosemide 40 MG TABLET PO SCH (09:28)
[2016-11-24] MEDS: levoFLOXacin 500 MG TABLET PO SCH (09:28)
[2016-11-24] MEDS: Aspirin Enteric Coated 81 MG Tablet PO SCH (09:29)
[2016-11-24] MEDS: amLODIPine 5 MG TABLET PO SCH (09:29)
[2016-11-24 10:54] VITALS: BP 138/73
--- NOTE | 2016-11-24 12:27 | Electrocardiograph Report ---
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
--- NOTE | 2016-11-24 13:30 | Discharge Summary ---
Date of Encounter: 11/24/16 Time of Encounter: 11:35 - Discharge Diagnosis (1) Atypical chest pain Priority: Primary Status: Resolved (2) CAD (coronary artery disease) Priority: Secondary Status: Chronic Qualifiers: Coronary Disease-Associated Artery/Lesion type: unspecified vessel or lesion type [place] vs. transplanted heart: [place] heart Associated angina: angina presence unspecified Qualified Code(s): I25.10 - Atherosclerotic heart disease of [place] coronary artery without angina pectoris (3) GERD (gastroesophageal reflux disease) Priority: Secondary Status: Chronic Qualifiers: Esophagitis presence: without esophagitis Qualified Code(s): K21.9 - Gastro -esophageal reflux disease without esophagitis (4) HLD (hyperlipidemia) Priority: Secondary Status: Chronic Qualifiers: Hyperlipidemia type: pure hypercholesterolemia Qualified Code(s): E78.00 - Pure hypercholesterolemia, unspecified; E78.0 - Pure hypercholesterolemia (5) HTN (hypertension) Priority: Secondary Status: Chronic Qualifiers: Hypertension type: essential hypertension Qualified Code(s): I10 - Essential (primary) hypertension (6) IDDM (insulin dependent diabetes mellitus) Priority: Secondary Status: Chronic (7) DVT prophylaxis Priority: Secondary Status: Acute (8) DARLYN (acute kidney injury) Priority: Secondary Status: Resolved - Discharge Medications Home Medications: Aspirin Enteric Coated [Aspirin EC] 81 mg PO DAILY #30 tablet. 02/21/16 [Rx] Furosemide [Lasix] 40 mg PO DAILY #30 tablet 02/21/16 [Rx] Nitroglycerin [Nitrostat] 0.4 mg SL Q5M PRN 10/01/16 [History] amLODIPine [Norvasc] 10 mg PO DAILY #30 tab 10/05/16 [Rx] Atorvastatin [Lipitor] 40 mg PO HS #30 tablet 11/04/16 [Rx] Carvedilol [Coreg] 3.125 mg PO BIDWM 30 Days 11/04/16 [Rx] Lisinopril [Zestril] 2.5 mg PO DAILY #30 tab 11/04/16 [Rx] Omeprazole [PriLOSEC] 20 mg PO BIDAC #60 11/04/16 [Rx] Ticagrelor [Brilinta] 90 mg PO BID 30 Days 11/04/16 [Rx] Isosorbide MONOnitrate (24 HR) [Imdur] 120 mg PO DAILY #30 tab 11/11/16 [Rx] Ascorbate Calcium [Vitamin C] 500 mg PO DAILY 11/14/16 [History] Cyanocobalamin (Vitamin B-12) [Vitamin B12] 1,000 mcg PO DAILY 11/14/16 [History ] Multivitamin [One Daily Essential] 1 tab PO DAILY 11/14/16 [History] metFORMIN [Glucophage] 500 mg PO BID 11/14/16 [History] levoFLOXacin [Levofloxacin] 500 mg PO DAILY #7 tablet 11/21/16 [Rx] Allergies/Adverse Reactions: 3 Allergy/AdvReac Type Severity Reaction Status Date / Time Oxycodone [From Percocet] Allergy Hives Verified 11/19/16 09:42 tramadol Allergy Hives Verified 11/19/16 09:42 Date of admission: 11/21/16 23:39 Primary care physician: Lance Cronin MD Consults: 11/23/16 11:48 Consult to [employer] [CONS] Routine Reason for SW Consult: Readmission 11/23/16 15:30 Consult to Urology [CONS] Routine Consulting Provider: Urology Denise Reason for Consult: Pain with urination/ hematuria/ clots in urine Time Notified: 15:31 Call Completed: Yes Discharging clinician: Preston Vela Anticipated date of discharge: 11/24/16 - Patient Status Disposition: Home, Self-Care Condition: Good Functional capacity at discharge: uses cane/walker Overall status at discharge: patient is progressing back to baseline - Discharge Instructions Follow Up With: Lance Cronin MD [Primary Care Provider] - 11/25/16 3:15 pm - Diet and Activity Activity: increase activity as tolerated Diet: diabetic diet, low fat, low cholesterol, low salt diet Hospital course: Mr. Pizarro is a 76 year old male patient with history of coronary artery disease with recent stents and hematuria with Wang catheter placed during his last hospitalization presented to the ER with complaints of chest pain. He did have slight elevation in his troponin although these were improved compared to his previous numbers during the last hospitalization one week back. He was also found to have mild acute kidney injury with creatinine of 1.57 and possible acute urinary tract infection. He had been taking levofloxacin as outpatient. He was hospitalized for chest pain and his troponins were trended. They remained stable and adynamic and his chest pain resolved by the next day. Has some trouble with the Wang catheter and pain at the urethral opening. Purulent discharge was also noted and so the catheter was removed. He did have pain with micturition initially and urology was consulted. They evaluated the patient and by that time he saw the patient his symptoms had mostly subsided. He has been passing urine well since then. His urine also appears to be much clear. He does have some sediments in his urine. Repeat urine culture here has been negative. He is clinically stable to be discharged home. He will follow up with his primary care provider and event marketing assistant for further management of his chronic medical problems. His renal function has normalized. No changes to his medication regimen are being made at this time. - Time Spent with Patient Total time spent providing and/or coordinating discharge services: Less than 30 minutes (25 min) - Constitutional Vitals: Temp Pulse Resp BP Pulse Ox 97.8 F 69 16 138/73 98 11/24/16 10:53 11/24/16 10:53 11/24/16 10:53 11/24/16 10:53 11/24/16 10:53 General appearance: Present: cooperative, A&O X 3, answers questions appropriately - Respiratory Respiratory exam: Present: CTAB. Absent: accessory muscle use, rales, rhonchi, wheezes - Cardiovascular Cardiovascular exam: Present: RRR, +S1, +S2. Absent: diastolic murmur, gallop, rubs, systolic murmur - GI/Abdominal GI/Abdominal exam: Present: normal bowel sounds, soft, no peritoneal signs. Absent: distended, tenderness - Extremities Exam Extremities exam: Present: warm, radial pulses palpable and symmetrical. Absent : calf tenderness, cyanotic, pedal edema
== END 2016-11-24 15:18 | disposition home or self-care (01) ==
LOC: 3BNU 21:50 → EMEROO 21:50 → SUATTDRO 23:39 → 3BNU 11-22 00:05
PROVIDERS: ADMIT Internal Medicine; ATTEND Internal Medicine

== ENCOUNTER 2016-12-20 03:37 | Inpatient (IN) ==
[2016-12-20] MEDS ORDERED: Aspirin 81 MG TAB.CHEW PO ONE (03:44)
--- NOTE | 2016-12-20 03:51 | Emergency Department Note ---
Disposition Clinical Impression: Chest pain, rule out acute myocardial infarction, Elevated troponin Urinary tract infection Qualifiers: Urinary tract infection type: acute cystitis Hematuria presence: with hematuria Qualified Code(s): N30.01 - Acute cystitis with hematuria Congestive heart failure Qualifiers: Congestive heart failure type: unspecified congestive heart failure type Congestive heart failure chronicity: acute on chronic Qualified Code(s): I50.9 - Heart failure, unspecified Disposition: Admitted As Inpatient Condition: Fair Referrals: NONE,PCP [Primary Care Provider] - Forms: ED Satisfaction Letter Time of Disposition: 04:16 Chest Pain HPI - General Chief Complaint: ED Chest Pain Stated Complaint: SOB/CP Time Seen by Provider: 12/20/16 03:38 Source: patient, EMS Limitations: no limitations Vital Signs Reviewed: Yes Nursing Notes Reviewed: Yes - History of Present Illness HPI Narrative: Nontoxic-appearing 76-year-old male presents for evaluation of substernal chest pain, shortness of breath, and nonproductive cough that awoke him from his sleep at midnight (3 hours 45 minutes ago). He rates his pain a 6 out of 10 on a 10 point scale and describes it as a dull ache in nature. The pain does not radiate or migrate. He also complains of 2 days worth of progressively worsening orthopnea and bilateral lower extremity swelling. He denies any aggravating or alleviating factors to this chest pain. He states that he has been slightly nauseated and broke out in a sweat upon symptom onset. He denies any overt fevers or subjective chills. Pt complaint: chest pain, other (Shortness of breath, nonproductive cough) Onset (ago): hour(s) (Since midnight this morning) Duration: constant Onset: awoke with symptoms Pain Location: substernal Severity: moderate Severity scale (1-10): 6 Quality: aching Pain Radiation: none Improves with: nothing Worsens with: nothing Associated symptoms: Reports: nausea, leg swelling (Bilaterally) Treatments prior to arrival chest pain: none - Related Data Home Medications Medication Instructions Recorded Confirmed Nitroglycerin [Nitrostat] 0.4 mg SL Q5M PRN 10/01/16 11/22/16 Ascorbate Calcium [Vitamin C] 500 mg PO DAILY 11/14/16 11/22/16 Cyanocobalamin (Vitamin B-12) 1,000 mcg PO DAILY 11/14/16 11/22/16 [Vitamin B12] Multivitamin [One Daily Essential] 1 tab PO DAILY 11/14/16 11/22/16 metFORMIN [Glucophage] 500 mg PO BID 11/14/16 11/22/16 Previous Rx's Medication Instructions Recorded Aspirin Enteric Coated [Aspirin EC] 81 mg PO DAILY #30 tablet. 02/21/16 Furosemide [Lasix] 40 mg PO DAILY #30 tablet 02/21/16 amLODIPine [Norvasc] 10 mg PO DAILY #30 tab 10/05/16 Atorvastatin [Lipitor] 40 mg PO HS #30 tablet 11/04/16 Carvedilol [Coreg] 3.125 mg PO BIDWM 30 Days tab 11/04/16 Lisinopril [Zestril] 2.5 mg PO DAILY #30 tab 11/04/16 Omeprazole [PriLOSEC] 20 mg PO BIDAC #60 11/04/16 Ticagrelor [Brilinta] 90 mg PO BID 30 Days tab 11/04/16 Isosorbide MONOnitrate (24 HR) 120 mg PO DAILY #30 tab 11/11/16 [Imdur] levoFLOXacin [Levofloxacin] 500 mg PO DAILY #7 tablet 11/21/16 Cyclobenzaprine [Flexeril] 10 mg PO BID #6 tablet 11/27/16 Allergies Allergy/AdvReac Type Severity Reaction Status Date / Time Oxycodone [From Percocet] Allergy Hives Verified 11/29/16 22:38 tramadol Allergy Hives Verified 11/29/16 22:38 All systems ED: reviewed and negative except as stated. Constitutional: Denies: fever, chills, weakness, weight change Eyes: Denies: eye pain, eye discharge, vision change ENT ED: Denies: ear pain, throat pain, dental pain, hearing loss, epistaxis, congestion, dysphagia Cardiovascular: Reports: as per HPI, chest pain, edema. Denies: palpitations, dyspnea on exertion, syncope Respiratory: Reports: as per HPI, cough, dyspnea. Denies: wheezes, hemoptysis, stridor, sputum production Gastrointestinal: Denies: abdominal pain, nausea, vomiting, diarrhea, constipation, hematemesis, melena, hematochezia Genitourinary: Denies: urgency, dysuria, frequency, hematuria Musculoskeletal: Denies: back pain, neck pain, arthralgia, myalgia Integumentary: Denies: rash, abrasion, lesions Neurological: Denies: headache, weakness, numbness, paresthesias, confusion, abnormal gait, vertigo Psychiatric: Denies: anxiety, depression, suicidal thoughts, homicidal thoughts , auditory hallucinations, visual hallucinations Endocrine: Denies: fatigue Hematological/Lymphatic: Denies: easy bleeding, easy bruising Allergic/Immunologic: Denies: facial swelling, urticaria Chest Pain PMH - Past Medical History Medical history: Reports: asthma, atrial fibrillation, coronary artery disease, CVA, diabetes, hypertension, myocardial infarction, thyroid disease Surgical history: Reports: angioplasty/stent, cholecystectomy, coronary bypass ( CABG), pacemaker/AICD Psychiatric history: Reports: no psych history - Social History Smoking Status: Former smoker Alcohol use: Reports: none Drug use: Reports: none Physical Exam - General Limitations: no limitations General appearance: alert, in no apparent distress - Head Head exam: atraumatic, normocephalic, normal inspection - Eye Eye exam: Present: normal appearance, PERRL, EOMI. Absent: nystagmus - ENT ENT exam: mucous membranes moist - Neck Neck exam: Present: normal inspection, full ROM, trachea midline - Chest Chest inspection: Present: normal inspection, symmetric chest wall rise - Respiratory Respiratory exam: Present: normal lung sounds bilaterally. Absent: respiratory distress, wheezes, stridor, accessory muscle use, prolonged expiratory phase - Cardiovascular Cardiovascular exam: Present: regular rate, normal rhythm, normal heart sounds - Abdominal Exam Abdominal exam: Present: soft, Non-Tender, normal bowel sounds - Extremities Exam Extremities exam: Present: full ROM, pedal edema (1+ pretibial edema noted bilaterally). Absent: tenderness, calf tenderness - Neurological Exam Neurological exam: Present: alert, oriented X3 - Psychiatric Psychiatric exam: Present: normal affect, normal mood - Skin Skin exam: Present: warm, dry, intact, normal color Course Course Narrative: I have discussed this patient's case with Dr. Velásquez. Dr. Velásquez has had a [id number] evaluation with the patient as well and agrees with admission to the hospitalist service. 0510: I spoke with Dr. Montelongo of the hospitalist service who has accepted the patient for admission. - Reevaluation(s) Reevaluation #1: The patient states complete resolution of chest pain after the administration of 2 sublingual nitroglycerin tablets. Time: 04:15 Vital Signs Temperature 98.4 F 12/20/16 03:41 Pulse Rate 93 12/20/16 03:41 Respiratory Rate 16 12/20/16 03:41 Blood Pressure 158/108 12/20/16 03:41 O2 Sat by Pulse Oximetry 93 12/20/16 03:41 Temperature 98.4 F 12/20/16 03:41 Pulse Rate 93 12/20/16 04:36 Respiratory Rate 16 12/20/16 04:36 Blood Pressure 161/103 12/20/16 04:36 O2 Sat by Pulse Oximetry 95 12/20/16 04:36 Oxygen Delivery Oxygen Delivery Room Air Chest Pain - MDM Narrative Medical decision making narrative: Chest x-ray shows malaria edema with bibasilar atelectasis versus pneumonia. Urinalysis shows large amount of blood, red blood cells, too numerous to count white blood cells some leukocyte esterase, and few bacteria. Although the patient does not have an elevated white blood cell count, We will begin the patient on IV Levaquin in hopes of covering both. Urine culture pending. Blood cultures pending. - Medical Records Medical records reviewed: Yes I reviewed the patient's medical records. - Lab Data Lab results reviewed: Yes I reviewed the patient's lab results. Lab results narrative: Laboratory Last Values WBC 8.3 K/mcL (4.3-11.1) 12/20/16 04:36 RBC 4.01 M/mcL (4.19-5.50) L 12/20/16 04:36 Hgb 11.7 g/dL (12.9-16.9) L 12/20/16 04:36 Hct 36.7 % (37.5-50.1) L 12/20/16 04:36 MCV 91.5 fL (83.0-100.0) D 12/20/16 04:36 MCH 29.2 pg (28.0-33.3) 12/20/16 04:36 MCHC 31.9 g/dL (31.6-35.5) 12/20/16 04:36 RDW 14.9 % (11.5-14.5) H 12/20/16 04:36 Plt Count 177 K/mcL (140-400) 12/20/16 04:36 MPV 10.2 fL (9.4-12.4) 12/20/16 04:36 Immature Gran % 0.4 % (0-4) 12/20/16 04:36 Seg Neutrophils % 72.6 % 12/20/16 04:36 Lymphocytes % 17.8 % 12/20/16 04:36 Monocytes % 6.4 % 12/20/16 04:36 Eosinophils % 2.3 % 12/20/16 04:36 Basophils % 0.5 % 12/20/16 04:36 Neutrophils # 6.0 K/mcL (1.6-8.9) 12/20/16 04:36 Lymphocytes # 1.5 K/mcL (0.6-4.6) 12/20/16 04:36 Monocytes # 0.5 K/mcL (0.0-1.3) 12/20/16 04:36 Eosinophils # 0.2 K/mcL (0.0-0.6) 12/20/16 04:36 Basophils # 0.0 K/mcL (0.0-0.2) 12/20/16 04:36 Immature Plt Fraction 3.1 % (1.1-6.1) 12/20/16 04:36 PT 12.1 Seconds (9.4-12.1) 12/20/16 04:10 INR 1.1 12/20/16 04:10 APTT 28.8 Seconds (26.0-36.0) 12/20/16 04:10 Sodium 145 mEq/L (136-145) 12/20/16 04:10 Potassium 3.7 mEq/L (3.5-4.5) 12/20/16 04:10 Chloride 106 mEq/L (98-109) 12/20/16 04:10 Carbon Dioxide 27 mEq/L (19-29) 12/20/16 04:10 BUN 17 mg/dL (8-26) 12/20/16 04:10 Creatinine 1.19 mg/dL (0.72-1.25) 12/20/16 04:10 Est GFR ( Amer) > 60 (> 60) 12/20/16 04:10 Est GFR (Non-Af Amer) 59 (> 60) L 12/20/16 04:10 BUN/Creatinine Ratio 14 (6-26) 12/20/16 04:10 Glucose 147 mg/dL (70-99) H 12/20/16 04:10 Calculated Osmolality 304 (280-300) H 12/20/16 04:10 Calcium 9.3 mg/dL (8.6-10.8) 12/20/16 04:10 Magnesium 1.7 mg/dL (1.6-2.6) 12/20/16 04:10 Troponin I 0.08 ng/mL (0-0.03) H* 12/20/16 04:10 B-Natriuretic Peptide 1852 pg/mL (0-100) H 12/20/16 04:10 Urine Color Dark Yellow (Yellow) 12/20/16 04:30 Urine Clarity Cloudy (Clear) A 12/20/16 04:30 Urine pH 7.0 pH Units (5.0-8.0) 12/20/16 04:30 Ur Specific [place] > 1.030 (1.010-1.025) H 12/20/16 04:30 Urine Protein >=300 mg/dL (Neg-Trace) H 12/20/16 04:30 Urine Glucose (UA) Normal mg/dL (Normal) 12/20/16 04:30 Urine Ketones Negative mg/dL (Negative) 12/20/16 04:30 Urine Blood Moderate (Negative) H 12/20/16 04:30 Urine Nitrite Negative (Negative) 12/20/16 04:30 Urine Bilirubin Small (Negative) H 12/20/16 04:30 Urine Urobilinogen Normal mg/dL (Normal) 12/20/16 04:30 Ur Leukocyte Esterase Moderate (Negative) H 12/20/16 04:30 Urine Microscopic RBC 50-100 per hpf (0-3) H 12/20/16 04:30 Urine Microscopic WBC TNTC per hpf (0-3) H 12/20/16 04:30 Ur Squamous Epith Cells Many per lpf (None-Few) H 12/20/16 04:30 Urine Bacteria Few per hpf (None-Few) 12/20/16 04:30 Hyaline Casts None Seen per lpf (None-Few) 12/20/16 04:30 Ur Culture Indicated? YES (NO) A 12/20/16 04:30 Specimen Rejected MCV Delta 12/20/16 04:10 Result diagrams: 12/20/16 04:36 12/20/16 04:10 Lab Results 12/20/16 12/20/16 12/20/16 Range/Units 04:10 04:10 04:10 WBC (4.3-11.1) K/mcL RBC (4.19-5.50) M/mcL Hgb (12.9-16.9) g/dL Hct (37.5-50.1) % MCV (83.0-100.0) fL MCH (28.0-33.3) pg MCHC (31.6-35.5) g/dL RDW (11.5-14.5) % Plt Count (140-400) K/mcL MPV (9.4-12.4) fL Immature Gran % (0-4) % Seg Neutrophils % % Lymphocytes % % Monocytes % % Eosinophils % % Basophils % % Neutrophils # (1.6-8.9) K/mcL Lymphocytes # (0.6-4.6) K/mcL Monocytes # (0.0-1.3) K/mcL Eosinophils # (0.0-0.6) K/mcL Basophils # (0.0-0.2) K/mcL Immature Plt Fraction (1.1-6.1) % PT 12.1 (9.4-12.1) Seconds INR 1.1 APTT 28.8 (26.0-36.0) Seconds Sodium 145 (136-145) mEq/L Potassium 3.7 (3.5-4.5) mEq/L Chloride 106 (98-109) mEq/L Carbon Dioxide 27 (19-29) mEq/L BUN 17 (8-26) mg/dL Creatinine 1.19 (0.72-1.25) mg/dL Est GFR ( Amer) > 60 (> 60) Est GFR (Non-Af Amer) 59 L (> 60) BUN/Creatinine Ratio 14 (6-26) Glucose 147 H (70-99) mg/dL Calculated Osmolality 304 H (280-300) Lactic Acid (0.5-2.2) mmol/L Calcium 9.3 (8.6-10.8) mg/dL Magnesium 1.7 (1.6-2.6) mg/dL Troponin I (0-0.03) ng/mL B-Natriuretic Peptide 1852 H (0-100) pg/mL Urine Color (Yellow) Urine Clarity (Clear) Urine pH (5.0-8.0) pH Units Ur Specific [place] (1.010-1.025) Urine Protein (Neg-Trace) mg/dL Urine Glucose (UA) (Normal) mg/dL Urine Ketones (Negative) mg/dL Urine Blood (Negative) Urine Nitrite (Negative) Urine Bilirubin (Negative) Urine Urobilinogen (Normal) mg/dL Ur Leukocyte Esterase (Negative) Urine Microscopic RBC (0-3) per hpf Urine Microscopic WBC (0-3) per hpf Ur Squamous Epith Cells (None-Few) per lpf Urine Bacteria (None-Few) per hpf Hyaline Casts (None-Few) per lpf Ur Culture Indicated? (NO) Specimen Rejected 12/20/16 12/20/16 12/20/16 Range/Units 04:10 04:10 04:30 WBC (4.3-11.1) K/mcL RBC (4.19-5.50) M/mcL Hgb (12.9-16.9) g/dL Hct (37.5-50.1) % MCV (83.0-100.0) fL MCH (28.0-33.3) pg MCHC (31.6-35.5) g/dL RDW (11.5-14.5) % Plt Count (140-400) K/mcL MPV (9.4-12.4) fL Immature Gran % (0-4) % Seg Neutrophils % % Lymphocytes % % Monocytes % % Eosinophils % % Basophils % % Neutrophils # (1.6-8.9) K/mcL Lymphocytes # (0.6-4.6) K/mcL Monocytes # (0.0-1.3) K/mcL Eosinophils # (0.0-0.6) K/mcL Basophils # (0.0-0.2) K/mcL Immature Plt Fraction (1.1-6.1) % PT (9.4-12.1) Seconds INR APTT (26.0-36.0) Seconds Sodium (136-145) mEq/L Potassium (3.5-4.5) mEq/L Chloride (98-109) mEq/L Carbon Dioxide (19-29) mEq/L BUN (8-26) mg/dL Creatinine (0.72-1.25) mg/dL Est GFR ( Amer) (> 60) Est GFR (Non-Af Amer) (> 60) BUN/Creatinine Ratio (6-26) Glucose (70-99) mg/dL Calculated Osmolality (280-300) Lactic Acid (0.5-2.2) mmol/L Calcium (8.6-10.8) mg/dL Magnesium (1.6-2.6) mg/dL Troponin I 0.08 H* (0-0.03) ng/mL B-Natriuretic Peptide (0-100) pg/mL Urine Color Dark Yellow (Yellow) Urine Clarity Cloudy A (Clear) Urine pH 7.0 (5.0-8.0) pH Units Ur Specific [place] > 1.030 H (1.010-1.025) Urine Protein >=300 H (Neg-Trace) mg/dL Urine Glucose (UA) Normal (Normal) mg/dL Urine Ketones Negative (Negative) mg/dL Urine Blood Moderate H (Negative) Urine Nitrite Negative (Negative) Urine Bilirubin Small H (Negative) Urine Urobilinogen Normal (Normal) mg/dL Ur Leukocyte Esterase Moderate H (Negative) Urine Microscopic RBC 50-100 H (0-3) per hpf Urine Microscopic WBC TNTC H (0-3) per hpf Ur Squamous Epith Cells Many H (None-Few) per lpf Urine Bacteria Few (None-Few) per hpf Hyaline Casts None Seen (None-Few) per lpf Ur Culture Indicated? YES A (NO) Specimen Rejected MCV Delta 12/20/16 12/20/16 Range/Units 04:36 04:36 WBC 8.3 (4.3-11.1) K/mcL RBC 4.01 L (4.19-5.50) M/mcL Hgb 11.7 L (12.9-16.9) g/dL Hct 36.7 L (37.5-50.1) % MCV 91.5 D (83.0-100.0) fL MCH 29.2 (28.0-33.3) pg MCHC 31.9 (31.6-35.5) g/dL RDW 14.9 H (11.5-14.5) % Plt Count 177 (140-400) K/mcL MPV 10.2 (9.4-12.4) fL Immature Gran % 0.4 (0-4) % Seg Neutrophils % 72.6 % Lymphocytes % 17.8 % Monocytes % 6.4 % Eosinophils % 2.3 % Basophils % 0.5 % Neutrophils # 6.0 (1.6-8.9) K/mcL Lymphocytes # 1.5 (0.6-4.6) K/mcL Monocytes # 0.5 (0.0-1.3) K/mcL Eosinophils # 0.2 (0.0-0.6) K/mcL Basophils # 0.0 (0.0-0.2) K/mcL Immature Plt Fraction 3.1 (1.1-6.1) % PT (9.4-12.1) Seconds INR APTT (26.0-36.0) Seconds Sodium (136-145) mEq/L Potassium (3.5-4.5) mEq/L Chloride (98-109) mEq/L Carbon Dioxide (19-29) mEq/L BUN (8-26) mg/dL Creatinine (0.72-1.25) mg/dL Est GFR ( Amer) (> 60) Est GFR (Non-Af Amer) (> 60) BUN/Creatinine Ratio (6-26) Glucose (70-99) mg/dL Calculated Osmolality (280-300) Lactic Acid 1.5 (0.5-2.2) mmol/L Calcium (8.6-10.8) mg/dL Magnesium (1.6-2.6) mg/dL Troponin I (0-0.03) ng/mL B-Natriuretic Peptide (0-100) pg/mL Urine Color (Yellow) Urine Clarity (Clear) Urine pH (5.0-8.0) pH Units Ur Specific [place] (1.010-1.025) Urine Protein (Neg-Trace) mg/dL Urine Glucose (UA) (Normal) mg/dL Urine Ketones (Negative) mg/dL Urine Blood (Negative) Urine Nitrite (Negative) Urine Bilirubin (Negative) Urine Urobilinogen (Normal) mg/dL Ur Leukocyte Esterase (Negative) Urine Microscopic RBC (0-3) per hpf Urine Microscopic WBC (0-3) per hpf Ur Squamous Epith Cells (None-Few) per lpf Urine Bacteria (None-Few) per hpf Hyaline Casts (None-Few) per lpf Ur Culture Indicated? (NO) Specimen Rejected - Radiology Data Radiology results reviewed: Yes I reviewed the patient's radiology results. Chest X-Ray 12/20/16 03:44 IMPRESSION: Pulmonary edema with bibasilar atelectasis versus pneumonia. D/ / Jasper Devine MD / Jasper Devine MD Interpreting Provider: Jasper Devine MD - EKG Data EKG attestation: Yes I reviewed and interpreted this EKG. EKG results narrative: EKG reviewed by Dr. Velásquez as well. EKG shows a ventricularly paced rhythm at a rate of 92 bpm. QR muslim 192, QT/QTc interval 451/501, no ectopy noted. No STEMI. No significant changes when compared to his most previous EKG dated 12/01/16. Attestation Statement - Attestation Attestation: I, Alejandro Velásquez MD, personally evaluated this patient and discussed their management with the midlevel provicer, PAC/[facility] [employer] REPORTER. I reviewed the midlevel provider 's note and agree with the documented findings, medical decision making, and plan of care. 76-year-old male who is well-known to this department and seen here quite frequently. He recently had an NE with stents placed. He presents tonight complaining of some increased shortness of breath and also swelling of his feet and ankles which is new. He does admit to some upper chest pain bilaterally. No cough or fever. On examination patient is a well-developed well-nourished well-appearing elderly male in no acute distress. He is alert and oriented 3. There is no cyanosis or diaphoresis. Chest is nontender to palpation. Breath sounds are clear and equal bilaterally. Heart regular rate and rhythm. Abdomen soft and nontender with normal bowel sounds. There is 2+ pitting edema of the lower extremities bilaterally. EKG shows electronic ventricular pacemaker. Chest x-ray shows pulmonary edema. Labs reviewed. Troponin 0.08 however patient's troponin is chronically elevated. BNP 1800. Urine shows TNTC WBCs. The hospitalist, Dr. Montelongo, was consulted and accepted admission of the patient.
[2016-12-20] MEDS: Nitroglycerin 0.4 MG TAB.SUBL SL PRN ×5 (03:59→14:58)
[2016-12-20 04:26] LABS: INR 1.1; Prothrombin Time 12.1 Seconds (9.4-12.1)
[2016-12-20 04:28] LABS: Activated Partial Thrombo Time 28.8 Seconds (26.0-36.0)
[2016-12-20 04:34] LABS: BUN/Creatinine Ratio 14 (6-26); Blood Urea Nitrogen 17 mg/dL (8-26); Calcium 9.3 mg/dL (8.6-10.8); Carbon Dioxide 27 mEq/L (19-29); Chloride 106 mEq/L (98-109); Glucose 147 mg/dL (70-99); Magnesium 1.7 mg/dL (1.6-2.6); Osmolality,Calculated 304 (280-300); Potassium 3.7 mEq/L (3.5-4.5); Sodium 145 mEq/L (136-145); eGFR For African Americans > 60 (> 60); eGFR For Non-African Americans 59 (> 60)
[2016-12-20 04:40] LABS: Bilirubin,Urine Small (Negative); Blood,Urine Moderate (Negative); Clarity,Urine Cloudy (Clear); Color,Urine Dark Yellow (Yellow); Glucose,Urine (UA) Normal (Normal); Ketones,Urine Negative (Negative); Leukocyte Esterase,Urine Moderate (Negative); Nitrite,Urine Negative (Negative); Protein,Urine >=300 mg/dL (Neg-Trace); Specific Gravity,Urine > 1.030 (1.010-1.025); Urobilinogen,Urine Normal (Normal)
[2016-12-20 04:43] LABS: Bacteria,Urine Few per hpf (None-Few); Hyaline Casts,Urine None Seen per lpf (None-Few); RBC,Urine 50-100 per hpf (0-3); Squamous Epithelial Cell,Urine Many per lpf (None-Few); WBC,Urine TNTC per hpf (0-3)
[2016-12-20 04:46] LABS: Basophils % 0.5 %; Eosinophils # 0.2 K/mcL (0.0-0.6); Eosinophils % 2.3 %; Hematocrit 36.7 % (37.5-50.1); Hemoglobin 11.7 g/dL (12.9-16.9); Immature Granulocytes % 0.4 % (0-4); Immature Platelets 3.1 % (1.1-6.1); Lymphocytes # 1.5 K/mcL (0.6-4.6); Lymphocytes % 17.8 %; Mean Corpuscular HGB Conc 31.9 g/dL (31.6-35.5); Mean Corpuscular Hemoglobin 29.2 pg (28.0-33.3); Mean Corpuscular Volume 91.5 fL (83.0-100.0); Mean Platelet Volume 10.2 fL (9.4-12.4); Monocytes # 0.5 K/mcL (0.0-1.3); Monocytes % 6.4 %; Platelet Count 177 K/mcL (140-400); Red Blood Count 4.01 M/mcL (4.19-5.50); Red Cell Distribution Width 14.9 % (11.5-14.5); Segmented Neutrophils % 72.6 %
[2016-12-20] MEDS ORDERED: Furosemide 40 MG/4 ML VIAL IVP ONE (04:53)
[2016-12-20] MEDS ORDERED: Levofloxacin 750 MG/150 ML 750 MG/150 ML BAG IVPB ONE (04:53)
[2016-12-20] MEDS ORDERED: Naloxone 0.4 MG/ML INJ IVP PRN (07:51)
[2016-12-20] MEDS ORDERED: D5% in Water 1,000 ML IVC PRN (07:53)
[2016-12-20] MEDS ORDERED: *HR* Dextrose 50 % in Water (Syg) 50 ML SYRINGE IVP PRN (07:53)
[2016-12-20] MEDS ORDERED: Dextrose Gel 15 GM PO PRN ×2 (07:53)
--- NOTE | 2016-12-20 08:03 | Internal Med History&Physical ---
<Mccormick,Tracy J - Last Filed: 12/20/16 10:35> Date of Encounter: 12/20/16 Time of Encounter: 08:00 Assessment and Plan (1) Acute on chronic systolic (congestive) heart failure Current visit: Yes Status: Acute Mr. Pizarro is a 76 year old male with PMH CAD s/p recent stent, CHF, diabetes and atrial fibrillation who presented to [facility] on 12/20/2016 with complaints of shortness of breath and lower extremity swelling. He was placed in observation status for CHF exacerbation. Acute on chronic systolic heart failure: 10/2016 TTE with EF 40% and systolic and diastolic diyfunction. Now with worsening SOB and lower extremity edema. CXR with pulmonary edema with bibasilar atelectasis versus pneumonia. Clinically appears to be CHF exacerbation versus pneumonia (slight elevation in WBC however he has been afebrile). Says he forgot to take home lasix for the last 3-4 days. Received one time dose IV lasix in ED. Cont holding home lasix, Diuresis with IV lasix. Cont home TEE, BB. Daily weights, strict I&Os. (2) CAD (coronary artery disease) of bypass graft Current visit: No Status: Chronic per hx. S/p stent 10/2016. Asymptomatic, denies chest pain. Troponin incidentally found to be elevated at 0.08 (lower from previous). EKG v-paced. Suspect elevation in troponin secondary to recent stent and CHF exacerbation. Cycle troponin. Consult Cardiology if needed. Cont home antiplatelets, BB, statin, nitrate (home medication verification pending). Qualifiers: [place] vs. transplanted heart: [place] heart Associated angina: without angina Qualified Code(s): I25.810 - Atherosclerosis of coronary artery bypass graft(s) without angina pectoris (3) Abnormal urinalysis Current visit: Yes Status: Acute UA with WBC, leuk esterace. Afebrile, WBC 11K, no dysuria. Hold on ATB. Follow- cx (4) Gross hematuria Current visit: No Status: Acute on recent admission; required continuous bladder irrigation at that time. UA with microscopic blood, however no overt/gross hematuria noted. Stable, intermittently monitor (5) Paroxysmal a-fib Current visit: No Status: Chronic hx paroxysmal atrial fibrillation. On Xarelto in the past per chart review, however currently not on anticoagulation (likely secondary to gross hematuira). Cont ASA, BB (6) DM2 (diabetes mellitus, type 2) Current visit: No Status: Chronic per hx. Holding home oral hypoglycemics. SSI. Monitor blood sugar and titrate PRN Qualifiers: Diabetes mellitus complication status: with circulatory complication Diabetes mellitus complication detail: with other circulatory complications Diabetes mellitus assisted insulin use: with assisted use Qualified Code(s) : E11.59 - Type 2 diabetes mellitus with other circulatory complications; Z79.4 - intermediate card tender (current) use of insulin (7) DVT prophylaxis Current visit: No Status: Acute heparin Internal Medicine - H&P: HPI Chief complaint: shortness of breath Admitted From: Home Plans for Post Hospital Care: Home History of present illness: Mr. Pizarro is a 76 year old male with PMH CAD s/p recent stent, CHF, diabetes and atrial fibrillation who presented to [facility] on 12/20/2016 with complaints of shortness of breath and lower extremity swelling. He was placed in observation status for CHF exacerbation. Information obtained from chart review. Patient says he became short of breath over night and lower extremity edema worsened so he came to the ER. Says he has not taken his lasix for the last 3-4 days because he forgot. Has a non-productive cough, no fevers or chills. Denies chest pain. Says breathing is a little better after IV lasix Past Med Surg Social Fam HX - Past Medical History Medical history: asthma, atrial fibrillation, CHF, coronary artery disease, CVA , diabetes, hypertension, myocardial infarction, thyroid disease Psychiatric history: no psych history - Past Surgical History Surgical History: angioplasty/stent, cholecystectomy, coronary bypass (CABG), pacemaker/AICD - Social History Smoking Status: Former smoker Smokeless Tobacco Status: No Alcohol use: none Drug use: none - Family History Grandfather Family Member Ethnicity: Non- Living Status: Hx Family Cardiac Disorders: Yes (AL) Mother Family Member Ethnicity: Non- Living Status: Age at : 46 Cause of : Alcoholism Hx Family Neurologic Disorders: Yes (CVA) Father Adopted: No Family Member Ethnicity: Non- Living Status: Age at : 78 Cause of : Unknown Hx Family Cardiac Disorders: No Hx Family Respiratory Disorders: No Hx Family Cancer: Yes (Unknown what type) Hx Family GI Disorders: No Hx Family Endocrine Disorder: No Hx Family Neuromuscular Disorders: No Hx Family Neurologic Disorders: No Hx Family HEENT Disorders: No Hx Family Autoimmune Disorders: No Internal Medicine - H&P: Meds Aspirin Enteric Coated [Aspirin EC] 81 mg PO DAILY #30 tablet.dr 02/21/16 [Rx] Furosemide [Lasix] 40 mg PO DAILY #30 tablet 02/21/16 [Rx] Nitroglycerin [Nitrostat] 0.4 mg SL Q5M PRN 10/01/16 [History] amLODIPine [Norvasc] 10 mg PO DAILY #30 tab 10/05/16 [Rx] Atorvastatin [Lipitor] 40 mg PO HS #30 tablet 11/04/16 [Rx] Carvedilol [Coreg] 3.125 mg PO BIDWM 30 Days tab 11/04/16 [Rx] Lisinopril [Zestril] 2.5 mg PO DAILY #30 tab 11/04/16 [Rx] Omeprazole [PriLOSEC] 20 mg PO BIDAC #60 11/04/16 [Rx] Ticagrelor [Brilinta] 90 mg PO BID 30 Days tab 11/04/16 [Rx] Isosorbide MONOnitrate (24 HR) [Imdur] 120 mg PO DAILY #30 tab 11/11/16 [Rx] Ascorbate Calcium [Vitamin C] 500 mg PO DAILY 11/14/16 [History] Cyanocobalamin (Vitamin B-12) [Vitamin B12] 1,000 mcg PO DAILY 11/14/16 [History ] Multivitamin [One Daily Essential] 1 tab PO DAILY 11/14/16 [History] metFORMIN [Glucophage] 500 mg PO BID 11/14/16 [History] levoFLOXacin [Levofloxacin] 500 mg PO DAILY #7 tablet 11/21/16 [Rx] Cyclobenzaprine [Flexeril] 10 mg PO BID #6 tablet 11/27/16 [Rx] Tamsulosin [Flomax] 0.4 mg PO DAILY 12/20/16 [History] 3 Allergy/AdvReac Type Severity Reaction Status Date / Time Oxycodone [From Percocet] Allergy Hives Verified 12/20/16 11:51 tramadol Allergy Hives Verified 12/20/16 11:51 All Systems PM: A 10-system review of systems was performed and is negative for pertinent findings except as documented above in the HPI. - Constitutional Constitutional: no chills, no fever(s), no night sweats - EENT Eyes: no change in vision, no discharge, no pain, no photophobia Ears: no ear discharge, no ear pain, no tinnitus Nose, mouth and throat: no dysphagia, no nasal discharge, no neck pain, no sore throat - Cardiovascular Cardiovascular ROS IM: as per HPI, dyspnea, dyspnea on exertion, edema, no chest pain, no diaphoresis, no lightheadedness, no palpitations, no syncope - Respiratory Respiratory: as per HPI, cough, dyspnea, no wheezing, no excessive phlegm production - Gastrointestinal Gastrointestinal: no abdominal pain, no diarrhea, no hematemesis, no hematochezia, no melena, no nausea, no vomiting - Musculoskeletal Musculoskeletal ROS IM: no numbness, no tingling - Integumentary Integumentary IM: no rash, no unusual bruising - Neurological Neurological ROS: no confusion, no convulsions, no focal weakness, no numbness, no tingling, no tremor(s) - Hematologic/Lymphatic Hematologic/Lymphatic: no easy bruising - Constitutional Vitals: Temp Pulse Resp BP Pulse Ox 97.6 F 96 16 159/113 96 12/20/16 06:15 12/20/16 06:15 12/20/16 06:15 12/20/16 06:15 12/20/16 06:15 - Head Head exam: Present: atraumatic, normocephalic - Eye Eye exam: Present: PERRL, conjuntiva pink, sclera anicteric Pupils: Present: PERRL - Neck Neck exam general surgery: Present: supple, trachea midline. Absent: lymphadenopathy - Respiratory Respiratory exam: Present: rales. Absent: accessory muscle use, rhonchi, wheezes - Cardiovascular Cardiovascular exam: Present: RRR, +S1, +S2. Absent: diastolic murmur, gallop, rubs, systolic murmur - GI/Abdominal GI/Abdominal exam: Present: normal bowel sounds, soft, no peritoneal signs. Absent: distended, tenderness - Extremities Exam Extremities exam: Present: pedal edema, warm, radial pulses palpable and symmetrical. Absent: calf tenderness, cyanotic - Neurological Exam Neurological exam: Present: CN II-XII intact, oriented X3, no focal deficits. Absent: pronater drift, facial droop, speech deficit - Skin Skin exam: Present: dry, intact Internal Med - H&P Results - Labs CBC & Chem 7: 12/20/16 04:36 12/20/16 04:10 <Natanael Suazo - Last Filed: 12/20/16 19:32> Date of Encounter: 12/20/16 Internal Medicine - H&P: HPI History of present illness: Mr. Pizarro is a 76 year old male All Systems PM: A 10-system review of systems was performed and is negative for pertinent findings except as documented above in the HPI. - Constitutional Vitals: Temp Pulse Resp BP Pulse Ox 98.6 F 90 21 146/92 96 12/20/16 16:01 12/20/16 16:01 12/20/16 16:01 12/20/16 16:01 12/20/16 16:01 Internal Med - H&P Results - Labs CBC & Chem 7: 12/20/16 04:36 12/20/16 04:10 Labs: Cardiac Enzymes 12/20/16 12/20/16 Range/Units 10:10 16:07 Troponin I 0.06 H* 0.07 H* (0-0.03) ng/mL - Attending Attestation I independently obtained history and examined this patient and my medical decision-making was reviewed with the nurse practitioner. I agree with the documented findings, disposition and treatment plan as described. My findings are summarized below: Patient presented to the hospital with worsening shortness of breath and weight gain consistent with CHF. He has lower extremity edema and bibasilar Rales. Plan: We will treat him with Lasix IV twice a day, strict I's and O's, fluid restriction. I provided counseling about sodium restriction diet and fluid restriction as well as medication compliance to prevent further exacerbations.
[2016-12-20] MEDS: Furosemide 20 MG/2 ML VIAL IVP SCH ×2 (09:33→16:15)
[2016-12-20] MEDS: Insulin LISPRO 300 UNITS/3 ML VIAL SQ SCH ×3 (12:16→22:09)
[2016-12-20] MEDS ORDERED: GuaiFENesin Liq 200 MG/10 ML UDC PO PRN (16:02)
--- NOTE | 2016-12-20 17:18 | Electrocardiograph Report ---
[place] [id number] Test Date: 2016-12-20 Pat Name: Yue Pizarro Department: 103 Room: 2NE26 Gender: M Rest Room Attendant: ALEM : 1940 Requested By: Sandoval Burns Order Number: [id number] Reading MD: Odalis Garcia Measurements Intervals [place] Rate: 92 P: [place]: 0 QRS: -40 QRSD: 192 T: 136 QT: 451 QTc: 501 Interpretive Statements ELECTRONIC VENTRICULAR PACEMAKER ABNORMAL RHYTHM ECG Electronically Signed On 12-20-2016 17:16:11 EDT by Odalis Garcia
[2016-12-20] MEDS: *HR* Ticagrelor 90 MG TABLET PO SCH (22:09)
[2016-12-21 05:07] LABS: Basophils % 0.5 %; Eosinophils # 0.2 K/mcL (0.0-0.6); Hematocrit 41.1 % (37.5-50.1); Hemoglobin 13.3 g/dL (12.9-16.9); Immature Granulocytes % 0.3 % (0-4); Lymphocytes # 1.5 K/mcL (0.6-4.6); Lymphocytes % 17.3 %; Mean Corpuscular HGB Conc 32.4 g/dL (31.6-35.5); Mean Corpuscular Hemoglobin 28.7 pg (28.0-33.3); Mean Corpuscular Volume 88.8 fL (83.0-100.0); Mean Platelet Volume 10.1 fL (9.4-12.4); Monocytes # 0.7 K/mcL (0.0-1.3); Monocytes % 8.2 %; Neutrophils # 6.3 K/mcL (1.6-8.9); Platelet Count 201 K/mcL (140-400); Red Blood Count 4.63 M/mcL (4.19-5.50); Red Cell Distribution Width 14.5 % (11.5-14.5); Segmented Neutrophils % 71.7 %
[2016-12-21] MEDS: Acetaminophen 325 MG TABLET PO PRN ×2 (05:22→20:18)
[2016-12-21 05:23] LABS: Alanine Aminotransferase 18 Units/L (0-55); Albumin 3.2 g/dL (3.5-5.0); Albumin/Globulin Ratio 0.9 (1.1-2.2); Alkaline Phosphatase 84 Units/L (38-126); Aspartate Amino Transferase 16 Units/L (5-34); BUN/Creatinine Ratio 14 (6-26); Bilirubin,Total 1.1 mg/dL (0.2-1.2); Blood Urea Nitrogen 15 mg/dL (8-26); Calcium 9.5 mg/dL (8.6-10.8); Carbon Dioxide 26 mEq/L (19-29); Chloride 106 mEq/L (98-109); Globulin 3.6 g/dL (2.4-3.5); Glucose 148 mg/dL (70-99); Osmolality,Calculated 298 (280-300); Potassium 3.6 mEq/L (3.5-4.5); Sodium 142 mEq/L (136-145); Total Protein 6.8 g/dL (6.0-8.3); eGFR For African Americans > 60 (> 60); eGFR For Non-African Americans > 60 (> 60)
[2016-12-21] MEDS: *HR* Ticagrelor 90 MG TABLET PO SCH ×2 (09:32→20:18)
[2016-12-21] MEDS: Isosorbide MONOnitrate (24 HR) 60 MG TAB.ER.24H PO SCH (09:32)
[2016-12-21] MEDS: amLODIPine 5 MG TABLET PO SCH (09:32)
[2016-12-21] MEDS: Aspirin Enteric Coated 81 MG Tablet PO SCH (09:33)
[2016-12-21] MEDS: Insulin LISPRO 300 UNITS/3 ML VIAL SQ SCH ×4 (09:33→20:25)
[2016-12-21] MEDS: Furosemide 20 MG/2 ML VIAL IVP SCH ×2 (09:33→16:53)
[2016-12-21] MEDS ORDERED: Ipratropium/Albuterol Neb 3 ML IH PRN (09:50)
--- NOTE | 2016-12-21 09:52 | Internal Med Progress Note ---
Date of Encounter: 12/21/16 Time of Encounter: 09:49 - Assessment and plan (1) Acute on chronic systolic (congestive) heart failure Current Visit: Yes Status: Acute Assessment and plan: Likely secondary to medication noncompliance continue IV diuresis monitor I/Os, daily weights fluid restriction diet (1.5L/day) cardiology evaluation requested O2 supplementation as needed will continue to closely monitor 2D echo from October 2016: LVEF 35-40%. Global LV systolic dysfunction with regional variations in the inferior wall. (2) UTI (urinary tract infection) Current Visit: Yes Status: Acute Assessment and plan: Preliminary urine culture positive for Enterococcus species continue IV abx f/u official urine culture report Qualifiers: Urinary tract infection type: acute cystitis Hematuria presence: with hematuria Qualified Code(s): N30.01 - Acute cystitis with hematuria (3) CAD (coronary artery disease) of bypass graft Current Visit: No Status: Chronic Assessment and plan: No signs of angina present at this time TNI elevation likely demand ischemia in the setting of CHF decompensation will continue ASA, Brilinta, BB, statin Qualifiers: [place] vs. 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 insulin use: with cable ferryboat operator use Qualified Code(s) : E11.59 - Type 2 diabetes mellitus with other circulatory complications; Z79.4 - penitentiary (current) use of insulin (5) Gross hematuria Current Visit: No Status: Resolved Assessment and plan: Resolved at this time H&H within acceptable range (6) HTN (hypertension) Current Visit: No Status: Chronic Assessment and plan: history of uncontrolled HTN increased Lisinopril to 10mg PO qd continue BB and Amlodipine added Hydralazine 10mg IV q6h prn SBP>160 will closely monitor Qualifiers: Hypertension type: essential hypertension Qualified Code(s): I10 - Essential (primary) hypertension (7) HLD (hyperlipidemia) Current Visit: No Status: Chronic Assessment and plan: continue Atorvastatin Qualifiers: Hyperlipidemia type: pure hypercholesterolemia Qualified Code(s): E78.00 - Pure hypercholesterolemia, unspecified; E78.0 - Pure hypercholesterolemia (8) Paroxysmal a-fib Current Visit: No Status: Chronic Assessment and plan: Rate controlled with BB, will continue not on anticoagulation likely due to history of bleeding continue ASA (9) DVT prophylaxis Current Visit: No Status: Acute Assessment and plan: Heparin SQ (10) History of smoking Current Visit: No Status: Chronic Assessment and plan: noted to have diffuse wheezing upon auscultation will start Duonebs prn q4h - Subjective Interval history: Patient is a 76y/o male admitted for acute respiratory distress secondary to CHF exacerbation. Patient seen and examined at bedside. Resting in bed and saturating well on nasal cannula. Reports of mild improvement in his breathing compared to previous day. Noted to have mild wheezing on auscultation. Reports of being a former smoker with history of cigarette use for over 20 years. No diagnosis of COPD reported. Denies any chest pain or palpitations at this time. - Constitutional Vitals: Temp Pulse Resp BP Pulse Ox 97.7 F 71 12 162/106 98 12/21/16 07:25 12/21/16 07:25 12/21/16 07:25 12/21/16 07:25 12/21/16 07:25 General appearance: Present: A&O X 3 (hard of hearing), no acute distress, answers questions appropriately - Head Head exam: Present: atraumatic, normocephalic - Eye Eye exam: Present: conjuntiva pink, sclera anicteric - Respiratory Respiratory exam: Present: rales (bibasilar crackles), wheezes (expiratory wheezing bilaterally). Absent: respiratory distress - Cardiovascular Cardiovascular exam: Present: irregular rhythm, +S1, +S2. Absent: diastolic murmur, systolic murmur - GI/Abdominal GI/Abdominal exam: Present: normal bowel sounds, soft, no peritoneal signs. Absent: distended, tenderness - Extremities Exam Extremities exam: Present: pedal edema (trace pedal edema bilaterally), warm, radial pulses palpable and symmetrical. Absent: calf tenderness - Neurological Exam Neurological exam: Present: alert, oriented X3 - Psychiatric Psychiatric exam: Present: normal affect, normal mood Internal Medicine: Result - Labs CBC & Chem 7: 12/21/16 04:55 12/21/16 04:55 Labs: Short CBC 12/21/16 Range/Units 04:55 WBC 8.8 (4.3-11.1) K/mcL Hgb 13.3 D (12.9-16.9) g/dL Hct 41.1 (37.5-50.1) % Plt Count 201 (140-400) K/mcL Neutrophils # 6.3 (1.6-8.9) K/mcL BMP 12/21/16 04:55 Sodium 142 Potassium 3.6 Chloride 106 Carbon Dioxide 26 BUN 15 Creatinine 1.06 Glucose 148 H Calcium 9.5 Cardiac Enzymes 12/20/16 12/20/16 Range/Units 10:10 16:07 Troponin I 0.06 H* 0.07 H* (0-0.03) ng/mL Liver Function 12/21/16 Range/Units 04:55 Total Bilirubin 1.1 (0.2-1.2) mg/dL AST 16 (5-34) Units/L ALT 18 (0-55) Units/L Alkaline Phosphatase 84 (38-126) Units/L Albumin 3.2 L (3.5-5.0) g/dL - ABG Interpretation ABG results: PT/INR, D-dimer PT 12.1 Seconds (9.4-12.1) 12/20/16 04:10 Consult Discharge Plan - Plan Referrals: Lance Cronin MD [Partnered Physician] -
[2016-12-21] MEDS ORDERED: Ipratropium/Albuterol Neb 3 ML IH ONE (09:54)
--- NOTE | 2016-12-21 10:39 | Cardiology Consult Note ---
Date of Encounter: 12/21/16 Time of Encounter: 10:00 Assessment and Plan (1) Systolic congestive heart failure, NYHA class 2 Current Visit: Yes Status: Acute Per cardiology: -Admitted with increased shortness of breath. -BNP 1852. -Chest x-ray with pulmonary edema. -On lasix 20mg IV BID per primary service. -net negative 3300ml. -Reports breathing has improved today. -Weight imrproved today. -Weight today 83.4kg, weight 12/08/16 84kg. -Moderate pedal edema noted. -Still requiring O2 at this time (not normally on O2 at home) -Continue IV diuresis today. -Strict i/os, fluid restriction, daily weights. -will continue to monitor. Qualifiers: Congestive heart failure chronicity: acute on chronic Qualified Code(s): I50.23 - Acute on chronic systolic (congestive) heart failure (2) Chest pain Current Visit: No Status: Chronic Per cardiology: -Has chronic chest pain. -Reports pain woken him up from sleep. -Denies exertional chest pain. Chest pain somewhat reproducable with palpation. -Ordered imdur, unclear if was taken at home. -No acute ischemic changes. -Mildly elevated troponins. -Denies current chest pain. -Will continue to monitor. Qualifiers: Chest pain type: other chest pain Qualified Code(s): R07.89 - Other chest pain; R07.8 - Other chest pain (3) Elevated troponin Current Visit: Yes Status: Acute Per cardiology: -Troponins 0.08, 0.06, 0.07. -Troponins flat and adynamic in the setting of CHF and hypertension. -Had Chest pain atypical. Denies current chest pain. -NO acute ischemic ECG changes. -Do not suspectg NSTEMI, suspect demand ischemia related to above. No cardiac rehab warranted at this time. (4) Ischemic cardiomyopathy Current Visit: No Status: Chronic Per cardiology: -Known Ishcemic cardiomyopathy. -Echo 10/2016 with LVEF 35-40%, mild diastolic dysfunction, normal RV size, probably mild reduction in function, no significant valvular dysufnction, apex, apical inferior, mid inferior, apical anterior, mid anterior, basal anterior, apical lateral, mid anterior lateral, basal anterior lateral, mid inferior lateral, and basal inferior lateral mena hypokinetic. Basal inferior wall akinetic. Apical septal, mid inferior septal, basal inferior septal, mid anterior septal, and basal anterior septal mena dyskinetic. -Previous LVEF 40% 09/2016. -On beta fuentes and clara inhibitor. -Will continue to monitor. (5) CAD (coronary artery disease) Current Visit: No Status: Chronic Per cardiology: -Known CAD. With [facility] 11/02/16 with 50% left main, 90% proximal LAD, 100% mid LAD , 99% instent thrombosis of ostial RCA 4 JATINDER were placed, ARROYO to LAD is patent , SVG to OM is patent. -ON asa, statin, beta blcoker, imdur, and brilinta. -COncerns for medication compliance at home, nurse navigators documenting in [facility] that has refused to give patient his medications. -Patient reports compliance with medications. -WIll consult social work administrator to assist in assessing medication compliance. Qualifiers: Coronary Disease-Associated Artery/Lesion type: unspecified vessel or lesion type [place] vs. transplanted heart: [place] heart Associated angina: angina presence unspecified Qualified Code(s): I25.10 - Atherosclerotic heart disease of [place] coronary artery without angina pectoris (6) Paroxysmal a-fib Current Visit: No Status: Chronic Per cardiology: -KNown PAF. -On beta fuentes. -Was on xarelto in outpatient setting. Xarelto was stopped by PCP due to hematuria. Has been following with urology. -Will continue to monitor. Discussion w patient/family: The assessment and plan as outlined above was discussed with the patient who expressed understanding and agreement. All questions were answered. Thank you for involving us in the care of your patient. Please call with any questions. Discussed and reviewed with . History of Present Illness Consult date: 12/20/16 Requesting physician: Tracy Mccormick Consult reason: CHF, elevated troponin Chief complaint: chest pain History of present illness: Mr. Pizarro is a 76 year old male with a relevant past medical history of CAD s /p CABG x2 2002, s/p PCI to RCA, HTN, PPm, PAF, CVA, hyperlipidemia, hard of hearing, and GERD. Patient presented to [facility] with complaints fo chest pain. Patient states pain woke him up from sleep. Patient states pain went from shoulder to shoulder and had some pain midsternal also. Patient reports chest pain is similar to his previous chronic chest pain. Patient also reports abdominal pain. Patient reports associated increased shortness of breath. Patient denies current chest pain. Of note, per review of documentation in [facility], patient's has not been giving patient his medications. Documentation states that feels that medications are "killing him." Documentations states that he has only been taking asa and flomax. I personally questioned the patient regarding his medications. Patient states he does not miss doses of his medications and states he especially does not miss asa or brilinta. is not at bedside at this time. Past Med Surg Social Fam HX - Past Medical History Attestation: Yes The following information was validated with the patient. Source: patient, old records reviewed Medical history: asthma, atrial fibrillation, CHF, coronary artery disease, CVA , diabetes, hypertension, myocardial infarction, thyroid disease Psychiatric history: no psych history - Past Surgical History Surgical History: angioplasty/stent, cholecystectomy, coronary bypass (CABG), pacemaker/AICD - Social History Smoking Status: Former smoker Smokeless Tobacco Status: No Alcohol use: none Drug use: none - Family History Grandfather Family Member Ethnicity: Non- Living Status: Hx Family Cardiac Disorders: Yes (CT) Mother Family Member Ethnicity: Non- Living Status: Age at : 46 Cause of : Alcoholism Hx Family Neurologic Disorders: Yes (CVA) Father Adopted: No Family Member Ethnicity: Non- Living Status: Age at : 78 Cause of : Unknown Hx Family Cardiac Disorders: No Hx Family Respiratory Disorders: No Hx Family Cancer: Yes (Unknown what type) Hx Family GI Disorders: No Hx Family Endocrine Disorder: No Hx Family Neuromuscular Disorders: No Hx Family Neurologic Disorders: No Hx Family HEENT Disorders: No Hx Family Autoimmune Disorders: No Medications and Allergies Aspirin Enteric Coated [Aspirin EC] 81 mg PO DAILY #30 tablet. 02/21/16 [Rx] Furosemide [Lasix] 40 mg PO DAILY #30 tablet 02/21/16 [Rx] Nitroglycerin [Nitrostat] 0.4 mg SL Q5M PRN 10/01/16 [History] amLODIPine [Norvasc] 10 mg PO DAILY #30 tab 10/05/16 [Rx] Atorvastatin [Lipitor] 40 mg PO HS #30 tablet 11/04/16 [Rx] Carvedilol [Coreg] 3.125 mg PO BIDWM 30 Days tab 11/04/16 [Rx] Lisinopril [Zestril] 2.5 mg PO DAILY #30 tab 11/04/16 [Rx] Omeprazole [PriLOSEC] 20 mg PO BIDAC #60 11/04/16 [Rx] Ticagrelor [Brilinta] 90 mg PO BID 30 Days tab 11/04/16 [Rx] Isosorbide MONOnitrate (24 HR) [Imdur] 120 mg PO DAILY #30 tab 11/11/16 [Rx] Ascorbate Calcium [Vitamin C] 500 mg PO DAILY 11/14/16 [History] Cyanocobalamin (Vitamin B-12) [Vitamin B12] 1,000 mcg PO DAILY 11/14/16 [History ] Multivitamin [One Daily Essential] 1 tab PO DAILY 11/14/16 [History] metFORMIN [Glucophage] 500 mg PO BID 11/14/16 [History] levoFLOXacin [Levofloxacin] 500 mg PO DAILY #7 tablet 11/21/16 [Rx] Cyclobenzaprine [Flexeril] 10 mg PO BID #6 tablet 11/27/16 [Rx] Tamsulosin [Flomax] 0.4 mg PO DAILY 12/20/16 [History] 3 Allergy/AdvReac Type Severity Reaction Status Date / Time Oxycodone [From Percocet] Allergy Hives Verified 12/20/16 11:51 tramadol Allergy Hives Verified 12/20/16 11:51 All Systems Review: A 10-system review of systems was performed and is negative for pertinent findings except as documented above in the HPI. - Cardiovascular Cardiovascular: as per HPI, chest pain at rest, dyspnea on exertion Physical Examination Vital Signs, Last 4 Hours Temp Pulse Resp BP Pulse Ox 12/21/16 10:20 97.8 F 78 12 105/79 93 12/21/16 07:25 97.7 F 71 12 162/106 98 General: Conversant, No Apparent Distress HEENT: Atraumatic, Normocephaly, Mucus Membranes Moist Neck: No JVD, Normal carotid pulses Cardiac: Reg Rate and Rhythm, Normal S1 and S2, No Murmur Lungs: Normal Breath Sounds Neuro: Alert and responsive, No focal deficits noted Abdomen: Soft, Non-Tender Skin: No rashes noted on visualized skin Musculoskeletal: Other (Chest wall tenderness noted with palpation) Extremities: No Clubbing, No Cyanosis, Normal Pulses, Other (Moderate pedal edema noted, non-pitting) Results 12/21/16 04:55 12/21/16 04:55 Lab Results Active Medications Acetaminophen (Tylenol) 650 mg PO Q6H PRN PRN Reason: Mild Pain (1-3) Stop: 06/21/17 08:01 Last Admin: 12/21/16 05:22 Dose: 650 mg Albuterol/Ipratropium (Duoneb) 3 ml IH [id number] PRN PRN Reason: Shortness Of Breath/Wheezing Stop: 06/22/17 09:51 Amlodipine Besylate (Norvasc) 10 mg PO DAILY [facility] PRN Reason: Protocol Stop: 06/22/17 09:01 Last Admin: 12/21/16 09:32 Dose: 10 mg Aspirin (Aspirin Ec) 81 mg PO DAILY [facility] Stop: 06/22/17 09:01 Last Admin: 12/21/16 09:33 Dose: 81 mg Atorvastatin Calcium (Lipitor) 40 mg PO HS [facility] Stop: 06/21/17 21:01 Last Admin: 12/20/16 22:08 Dose: 40 mg Carvedilol (Coreg) 3.125 mg PO BIDWM [facility] PRN Reason: Protocol Stop: 06/21/17 17:01 Last Admin: 12/21/16 09:32 Dose: 3.125 mg Dextrose/Water (Dextrose 50% (Syg)) 25 ml IVP AD PRN PRN Reason: Hypoglycemia Stop: 06/21/17 07:54 Furosemide (Lasix) 20 mg IVP BIDDIURETIC [facility] Stop: 06/21/17 09:01 Last Admin: 12/21/16 09:33 Dose: 20 mg Glucagon (Glucagen) 1 mg IM ONCE PRN PRN Reason: Hypoglycemia Stop: 06/21/17 07:54 Glucose (Gluctose) 15 gm PO ONCE PRN PRN Reason: Hypoglycemia Stop: 06/21/17 07:54 Glucose (Gluctose) 30 gm PO ONCE PRN PRN Reason: Hypoglycemia Stop: 06/21/17 07:54 Guaifenesin (Robitussin Liq) 200 mg PO Q6HR PRN PRN Reason: Cough Stop: 06/21/17 16:03 Last Admin: 12/20/16 16:12 Dose: 200 mg Heparin Sodium (Porcine) (Heparin) 5,000 unit SQ Q12HCO [facility] Stop: 06/22/17 18:01 Hydralazine HCl (Hydralazine) 10 mg IVP Q6HR PRN PRN Reason: SBP>160 Stop: 06/22/17 09:16 Dextrose (Dextrose 5%) 1,000 mls @ 100 mls/hr IVC .Q10H PRN PRN Reason: HYPOGLYCEMIA Stop: 06/21/17 07:54 Ceftriaxone Sodium 1,000 mg/ (Dextrose) 100 mls @ 200 mls/hr IVPB DAILY [facility] Stop: 06/22/17 10:01 Insulin Human Lispro (Humalog) 0 units SQ HS [facility] PRN Reason: Protocol Stop: 06/21/17 21:01 Last Admin: 12/20/16 22:09 Dose: Not Given Insulin Human Lispro (Humalog) 0 units SQ TIDAC [facility] PRN Reason: Protocol Stop: 06/21/17 11:31 Last Admin: 12/21/16 09:33 Dose: 2 units Isosorbide Mononitrate (Imdur) 120 mg PO DAILY [facility] Stop: 06/22/17 09:01 Last Admin: 12/21/16 09:32 Dose: 120 mg Lisinopril (Zestril) 10 mg PO DAILY [facility] PRN Reason: Protocol Stop: 06/22/17 10:22 Naloxone HCl (Narcan) 0.4 mg IVP Q2MIN PRN PRN Reason: Opioid Reversal Stop: 06/21/17 07:52 Nitroglycerin (Nitroglycerin) 0.4 mg SL Q5MIN PRN PRN Reason: Chest Pain Stop: 06/21/17 03:53 Last Admin: 12/20/16 14:58 Dose: 0.4 mg Ondansetron HCl (Zofran) 4 mg IVP Q8HR PRN PRN Reason: Nausea And Vomiting Stop: 06/21/17 07:52 Ticagrelor (Brilinta) 90 mg PO BID [facility] Stop: 06/21/17 21:01 Last Admin: 12/21/16 09:32 Dose: 90 mg Laboratory Tests 12/20/16 12/20/16 12/20/16 04:10 04:10 04:10 Hgb Potassium 3.7 Creatinine 1.19 Troponin I 0.08 H* B-Natriuretic Peptide 1852 H 12/20/16 12/20/16 12/20/16 04:36 10:10 16:07 Hgb 11.7 L Potassium Creatinine Troponin I 0.06 H* 0.07 H* B-Natriuretic Peptide - Imaging and Cardiology Chest Xray: report reviewed Echo: report reviewed Cardiac cath: report reviewed - EKG Interpretation EKG results cardiology: personally reviewed (ECG with paced rhythm, HR 92.), other (Telemetry reviewed with average HR 83, paced rhythm.) Consult Discharge Plan - Plan Referrals: Lance Cronin MD [Partnered Physician] -
[2016-12-21] MEDS: *HR* Heparin 5,000 UNIT/ML VIAL SQ SCH (16:53)
[2016-12-21] MEDS ORDERED: 0.9 % Sodium Chloride 500 ML IVC ONE (17:47)
[2016-12-22 04:15] LABS: Basophils # 0.1 K/mcL (0.0-0.2); Basophils % 0.7 %; Eosinophils # 0.2 K/mcL (0.0-0.6); Eosinophils % 2.9 %; Hematocrit 38.5 % (37.5-50.1); Hemoglobin 12.4 g/dL (12.9-16.9); Immature Granulocytes % 0.5 % (0-4); Lymphocytes # 1.8 K/mcL (0.6-4.6); Lymphocytes % 24.1 %; Mean Corpuscular HGB Conc 32.2 g/dL (31.6-35.5); Mean Corpuscular Hemoglobin 28.8 pg (28.0-33.3); Mean Corpuscular Volume 89.3 fL (83.0-100.0); Monocytes # 0.6 K/mcL (0.0-1.3); Monocytes % 8.2 %; Neutrophils # 4.6 K/mcL (1.6-8.9); Platelet Count 197 K/mcL (140-400); Red Blood Count 4.31 M/mcL (4.19-5.50); Red Cell Distribution Width 14.4 % (11.5-14.5); Segmented Neutrophils % 63.6 %
[2016-12-22 04:29] LABS: BUN/Creatinine Ratio 14 (6-26); Blood Urea Nitrogen 16 mg/dL (8-26); Calcium 9.2 mg/dL (8.6-10.8); Carbon Dioxide 29 mEq/L (19-29); Chloride 106 mEq/L (98-109); Glucose 111 mg/dL (70-99); Magnesium 1.6 mg/dL (1.6-2.6); Osmolality,Calculated 296 (280-300); Phosphorous 3.3 mg/dL (2.3-4.7); Potassium 3.4 mEq/L (3.5-4.5); Sodium 142 mEq/L (136-145); eGFR For African Americans > 60 (> 60); eGFR For Non-African Americans > 60 (> 60)
[2016-12-22] MEDS: *HR* Heparin 5,000 UNIT/ML VIAL SQ SCH ×2 (05:50→17:04)
[2016-12-22] MEDS: Ondansetron 4 MG/2 ML VIAL IVP PRN ×2 (06:45→20:11)
--- NOTE | 2016-12-22 09:10 | Cardiology Progress Note ---
Date of Encounter: 12/22/16 Time of Encounter: 08:30 Assessment and Plan (1) Systolic congestive heart failure, NYHA class 2 Current Visit: Yes Status: Acute Per cardiology: -Admitted with increased shortness of breath. States improved today. -BNP 1852 on admission. -Chest x-ray with pulmonary edema. -On lasix 20mg IV BID per primary service. -net negative 4415ml. -Weight imrproved today. -Weight today 82.3 kg, weight 12/08/16 84kg. -Euvolemic on exam today. -Of note, K 3.4 today, started on oral potassium per primary service. -Lasix changed to oral today. -Strict i/os, fluid restriction, daily weights. -Cardiology will sign off and will follow up in outpatient setting. Follow up set Qualifiers: Congestive heart failure chronicity: acute on chronic Qualified Code(s): I50.23 - Acute on chronic systolic (congestive) heart failure (2) Chest pain Current Visit: No Status: Chronic Per cardiology: -Has chronic chest pain. -States no increase in chest pain overnight, reports had his chronic pain that is at baseline. -Denies exertional chest pain. Chest pain somewhat reproducable with palpation. -Ordered imdur, unclear if was taken at home. On imdur inpatient. -No acute ischemic changes. -Mildly elevated troponins. -Will continue to monitor in outpatient setting. Qualifiers: Chest pain type: other chest pain Qualified Code(s): R07.89 - Other chest pain; R07.8 - Other chest pain (3) Elevated troponin Current Visit: Yes Status: Acute Per cardiology: -Troponins 0.08, 0.06, 0.07. -Troponins flat and adynamic in the setting of CHF and hypertension. -Had atypical chest pain. Known chronic chest pain. -NO acute ischemic ECG changes. -Do not suspectg NSTEMI, suspect demand ischemia related to above. No cardiac rehab warranted at this time. (4) Ischemic cardiomyopathy Current Visit: No Status: Chronic Per cardiology: -Known Ishcemic cardiomyopathy. -Echo 10/2016 with LVEF 35-40%, mild diastolic dysfunction, normal RV size, probably mild reduction in function, no significant valvular dysufnction, apex, apical inferior, mid inferior, apical anterior, mid anterior, basal anterior, apical lateral, mid anterior lateral, basal anterior lateral, mid inferior lateral, and basal inferior lateral mena hypokinetic. Basal inferior wall akinetic. Apical septal, mid inferior septal, basal inferior septal, mid anterior septal, and basal anterior septal mena dyskinetic. -Previous LVEF 40% 09/2016. -On beta fuentes and clara inhibitor. -Will continue to monitor. (5) CAD (coronary artery disease) Current Visit: No Status: Chronic Per cardiology: -Known CAD. With [facility] 11/02/16 with 50% left main, 90% proximal LAD, 100% mid LAD , 99% instent thrombosis of ostial RCA 4 JATINDER were placed, ARROYO to LAD is patent , SVG to OM is patent. -ON asa, statin, beta blcoker, imdur, and brilinta. -COncerns for medication compliance at home, nurse navigators documenting in [facility] that has refused to give patient his medications. consulting services project manager consulted -Patient reports compliance with medications. -I educated pateint and stress importance of medication compliance, particularly concerning asa and brilinta for at least one year uninterrupted. Educated on risk of NH or without medication compliance. Patient states understanding and states he has been complaint with medications. -Patient educated on importance of close cardiology follow up. Patient states understanding. Follow up set. Qualifiers: Coronary Disease-Associated Artery/Lesion type: unspecified vessel or lesion type [place] vs. transplanted heart: [place] heart Associated angina: angina presence unspecified Qualified Code(s): I25.10 - Atherosclerotic heart disease of [place] coronary artery without angina pectoris (6) Paroxysmal a-fib Current Visit: No Status: Chronic Per cardiology: -KNown PAF. -On beta fuentes. -Was on xarelto in outpatient setting. Xarelto was stopped by PCP due to hematuria. Has been following with urology. -Will continue to monitor. Discussion w patient/family: The assessment and plan as outlined above was discussed with the patient who expressed understanding and agreement. All questions were answered. Thank you for involving us in the care of your patient. Please call with any questions. Discussed and reviewed with . Subjective Principal diagnosis: systolic CHF Interval history: Patient reports shortness of breath has improved. Patient reports edema is improved. Patient denies increase in chest pain. Patient admits to his chronic chest pain, that is unchanged. Objective Vital Signs, Last 4 Hours Temp Pulse Resp BP Pulse Ox 12/22/16 07:32 97.6 F 64 12 141/85 96 General: Conversant, No Apparent Distress HEENT: Atraumatic, Normocephaly, Mucus Membranes Moist Neck: No JVD, Normal carotid pulses Cardiac: Reg Rate and Rhythm, Normal S1 and S2, No Murmur Lungs: Normal Breath Sounds, No Wheeze, Rales, Rhonchi Neuro: Alert and responsive, No focal deficits noted Abdomen: Soft, Non-Tender Skin: No rashes noted on visualized skin Musculoskeletal: Other (Chest wall tenderness noted to palpation. ) Extremities: No Clubbing, No Cyanosis, No Edema, Normal Pulses Results 12/22/16 03:23 12/22/16 03:23 Lab Results Active Medications Acetaminophen (Tylenol) 650 mg PO Q6H PRN PRN Reason: Mild Pain (1-3) Stop: 06/21/17 08:01 Last Admin: 12/21/16 20:18 Dose: 650 mg Albuterol/Ipratropium (Duoneb) 3 ml IH [id number] PRN PRN Reason: Shortness Of Breath/Wheezing Stop: 06/22/17 09:51 Amlodipine Besylate (Norvasc) 10 mg PO DAILY [facility] PRN Reason: Protocol Stop: 06/22/17 09:01 Last Admin: 12/21/16 09:32 Dose: 10 mg Aspirin (Aspirin Ec) 81 mg PO DAILY [facility] Stop: 06/22/17 09:01 Last Admin: 12/21/16 09:33 Dose: 81 mg Atorvastatin Calcium (Lipitor) 40 mg PO HS [facility] Stop: 06/21/17 21:01 Last Admin: 12/21/16 20:19 Dose: 40 mg Carvedilol (Coreg) 3.125 mg PO BIDWM [facility] PRN Reason: Protocol Stop: 06/21/17 17:01 Last Admin: 12/21/16 16:52 Dose: 3.125 mg Dextrose/Water (Dextrose 50% (Syg)) 25 ml IVP AD PRN PRN Reason: Hypoglycemia Stop: 06/21/17 07:54 Furosemide (Lasix) 40 mg PO DAILY [facility] Stop: 06/23/17 09:16 Glucagon (Glucagen) 1 mg IM ONCE PRN PRN Reason: Hypoglycemia Stop: 06/21/17 07:54 Glucose (Gluctose) 15 gm PO ONCE PRN PRN Reason: Hypoglycemia Stop: 06/21/17 07:54 Glucose (Gluctose) 30 gm PO ONCE PRN PRN Reason: Hypoglycemia Stop: 06/21/17 07:54 Guaifenesin (Robitussin Liq) 200 mg PO Q6HR PRN PRN Reason: Cough Stop: 06/21/17 16:03 Last Admin: 12/20/16 16:12 Dose: 200 mg Heparin Sodium (Porcine) (Heparin) 5,000 unit SQ Q12HCO [facility] Stop: 06/22/17 18:01 Last Admin: 12/22/16 05:50 Dose: 5,000 unit Hydralazine HCl (Hydralazine) 10 mg IVP Q6HR PRN PRN Reason: SBP>160 Stop: 06/22/17 09:16 Dextrose (Dextrose 5%) 1,000 mls @ 100 mls/hr IVC .Q10H PRN PRN Reason: HYPOGLYCEMIA Stop: 06/21/17 07:54 Ceftriaxone Sodium 1,000 mg/ (Dextrose) 100 mls @ 200 mls/hr IVPB DAILY [facility] Stop: 06/22/17 10:01 Last Infusion: 12/21/16 20:26 Dose: Infused Insulin Human Lispro (Humalog) 0 units SQ HS [facility] PRN Reason: Protocol Stop: 06/21/17 21:01 Last Admin: 12/21/16 20:25 Dose: Not Given Insulin Human Lispro (Humalog) 0 units SQ TIDAC [facility] PRN Reason: Protocol Stop: 06/21/17 11:31 Last Admin: 12/21/16 16:54 Dose: Not Given Isosorbide Mononitrate (Imdur) 120 mg PO DAILY [facility] Stop: 06/22/17 09:01 Last Admin: 12/21/16 09:32 Dose: 120 mg Lisinopril (Zestril) 5 mg PO DAILY [facility] PRN Reason: Protocol Stop: 06/23/17 09:01 Naloxone HCl (Narcan) 0.4 mg IVP Q2MIN PRN PRN Reason: Opioid Reversal Stop: 06/21/17 07:52 Nitroglycerin (Nitroglycerin) 0.4 mg SL Q5MIN PRN PRN Reason: Chest Pain Stop: 06/21/17 03:53 Last Admin: 12/20/16 14:58 Dose: 0.4 mg Ondansetron HCl (Zofran) 4 mg IVP Q8HR PRN PRN Reason: Nausea And Vomiting Stop: 06/21/17 07:52 Last Admin: 12/22/16 06:45 Dose: 4 mg Ticagrelor (Brilinta) 90 mg PO BID [facility] Stop: 06/21/17 21:01 Last Admin: 12/21/16 20:18 Dose: 90 mg Laboratory Tests 12/20/16 12/20/16 12/20/16 04:10 10:10 16:07 Hgb Potassium Creatinine Magnesium Troponin I 0.08 H* 0.06 H* 0.07 H* 12/22/16 12/22/16 03:23 03:23 Hgb 12.4 L Potassium 3.4 L Creatinine 1.13 Magnesium 1.6 Troponin I - Imaging and Cardiology Chest Xray: report reviewed Echo: report reviewed Cardiac cath: report reviewed - EKG Interpretation EKG results cardiology: other (Telemetry reviewed with average HR previous 12 hours noted to be 69, paced rhythm.) Consult Discharge Plan - Plan Referrals: Lance Cronin MD [Partnered Physician] - 12/31/16 10:15 am
[2016-12-22] MEDS ORDERED: Furosemide 40 MG TABLET PO SCH (09:15)
[2016-12-22] MEDS: *HR* Ticagrelor 90 MG TABLET PO SCH ×2 (09:42→20:10)
[2016-12-22] MEDS: Isosorbide MONOnitrate (24 HR) 60 MG TAB.ER.24H PO SCH (09:43)
[2016-12-22] MEDS: Aspirin Enteric Coated 81 MG Tablet PO SCH (09:44)
[2016-12-22] MEDS: amLODIPine 5 MG TABLET PO SCH (09:44)
[2016-12-22] MEDS: Insulin LISPRO 300 UNITS/3 ML VIAL SQ SCH ×4 (09:44→20:11)
[2016-12-22] MEDS ORDERED: Furosemide 20 MG/2 ML VIAL IVP ONE (09:44)
--- NOTE | 2016-12-22 09:47 | Internal Med Progress Note ---
Date of Encounter: 12/22/16 Time of Encounter: 09:43 - Assessment and plan (1) Acute on chronic systolic (congestive) heart failure Current Visit: Yes Status: Acute Assessment and plan: Likely secondary to medication noncompliance continue diuresis monitor I/Os, daily weights fluid restriction diet (1.5L/day) cardiology evaluation requested O2 supplementation as needed will continue to closely monitor 2D echo from October 2016: LVEF 35-40%. Global LV systolic dysfunction with regional variations in the inferior wall. Pt started on Imdur by cardiology, will closely monitor BP (2) UTI (urinary tract infection) Current Visit: Yes Status: Acute Assessment and plan: urine culture: Enterococcus species Will start Doxycycline as per urine culture sensitivities Qualifiers: Urinary tract infection type: acute cystitis Hematuria presence: with hematuria Qualified Code(s): N30.01 - Acute cystitis with hematuria (3) CAD (coronary artery disease) of bypass graft Current Visit: No Status: Chronic Assessment and plan: No signs of angina present at this time TNI elevation likely demand ischemia in the setting of CHF decompensation will continue ASA, Brilinta, BB, statin Qualifiers: [place] vs. transplanted heart: [place] heart Associated angina: without angina Qualified Code(s): I25.810 - Atherosclerosis of coronary artery bypass graft(s) without angina pectoris (4) DM2 (diabetes mellitus, type 2) Current Visit: No Status: Chronic Assessment and plan: BG within acceptable range holding oral antihyperglycemic agents continue sliding scale insulin algorithm monitor FS and BG ADA diet Qualifiers: Diabetes mellitus complication status: with circulatory complication Diabetes mellitus complication detail: with other circulatory complications Diabetes mellitus terminal operations supervisor insulin use: with nursing home use Qualified Code(s) : E11.59 - Type 2 diabetes mellitus with other circulatory complications; Z79.4 - exterminator termite (current) use of insulin (5) Gross hematuria Current Visit: No Status: Resolved Assessment and plan: Resolved at this time H&H within acceptable range (6) HTN (hypertension) Current Visit: No Status: Chronic Assessment and plan: history of uncontrolled HTN Noted to be hypotensive overnight Decreased Lisinopril to home dose of 2.5mg PO qdaily Started on Imdur 120mg PO qd by cardiology continue home dose of Amlodipine and BB will closely monitor Qualifiers: Hypertension type: essential hypertension Qualified Code(s): I10 - Essential (primary) hypertension (7) HLD (hyperlipidemia) Current Visit: No Status: Chronic Assessment and plan: continue Atorvastatin Qualifiers: Hyperlipidemia type: pure hypercholesterolemia Qualified Code(s): E78.00 - Pure hypercholesterolemia, unspecified; E78.0 - Pure hypercholesterolemia (8) Paroxysmal a-fib Current Visit: No Status: Chronic Assessment and plan: Rate controlled with BB, will continue not on anticoagulation likely due to history of bleeding continue ASA (9) DVT prophylaxis Current Visit: No Status: Acute Assessment and plan: Heparin SQ (10) History of smoking Current Visit: No Status: Chronic Assessment and plan: Duonebs prn q4h - Subjective Interval history: Patient is a 76y/o male admitted for acute respiratory distress secondary to CHF exacerbation. Pt seen and examined at bedside. Resting in bed and reports of feeling better compared to previous day. Noted to be hypotensive overnight and was given a 500cc fluid bolus. Clinically improving. BP within acceptable range at this time and patient noted to be saturating well on room air, however prefers to wear the oxygen. nutrition services associate are involved as it is reported that patient is not getting access to his home medications after discharge. - Constitutional Vitals: Temp Pulse Resp BP Pulse Ox 97.6 F 64 12 141/85 96 12/22/16 07:32 12/22/16 07:32 12/22/16 07:32 12/22/16 07:32 12/22/16 07:32 General appearance: Present: A&O X 3 (hard of hearing), no acute distress, answers questions appropriately - Head Head exam: Present: atraumatic, normocephalic - Eye Eye exam: Present: conjuntiva pink, sclera anicteric - Respiratory Respiratory exam: Present: CTAB. Absent: respiratory distress, wheezes, tachypnea Additional comments: mild expiratory wheezing bilaterally - Cardiovascular Cardiovascular exam: Present: irregular rhythm, +S1, +S2. Absent: diastolic murmur, gallop, rubs, systolic murmur - GI/Abdominal GI/Abdominal exam: Present: normal bowel sounds, soft, no peritoneal signs. Absent: distended, tenderness - Extremities Exam Extremities exam: Present: warm, radial pulses palpable and symmetrical. Absent : calf tenderness, cyanotic, pedal edema - Neurological Exam Neurological exam: Present: alert, oriented X3 - Psychiatric Psychiatric exam: Present: normal affect, normal mood Internal Medicine: Result - Labs CBC & Chem 7: 12/22/16 03:23 12/22/16 03:23 Labs: Short CBC 12/22/16 Range/Units 03:23 WBC 7.3 (4.3-11.1) K/mcL Hgb 12.4 L (12.9-16.9) g/dL Hct 38.5 (37.5-50.1) % Plt Count 197 (140-400) K/mcL Neutrophils # 4.6 (1.6-8.9) K/mcL BMP 12/22/16 03:23 Sodium 142 Potassium 3.4 L Chloride 106 Carbon Dioxide 29 BUN 16 Creatinine 1.13 Glucose 111 H Calcium 9.2 - ABG Interpretation ABG results: PT/INR, D-dimer PT 12.1 Seconds (9.4-12.1) 12/20/16 04:10 Consult Discharge Plan - Plan Referrals: Lance Cronin MD [Partnered Physician] - 12/31/16 10:15 am
[2016-12-22] MEDS ORDERED: *HR* Morphine 2 MG/ML SYRINGE IVP ONE (16:30)
[2016-12-22] MEDS: Doxycycline 100 MG CAPSULE PO SCH (20:10)
[2016-12-23 01:15] LABS: Basophils # 0.1 K/mcL (0.0-0.2); Basophils % 0.6 %; Eosinophils # 0.2 K/mcL (0.0-0.6); Eosinophils % 2.3 %; Hematocrit 37.3 % (37.5-50.1); Hemoglobin 11.9 g/dL (12.9-16.9); Immature Granulocytes % 0.4 % (0-4); Lymphocytes # 1.6 K/mcL (0.6-4.6); Lymphocytes % 20.8 %; Mean Corpuscular HGB Conc 31.9 g/dL (31.6-35.5); Mean Corpuscular Hemoglobin 28.8 pg (28.0-33.3); Mean Corpuscular Volume 90.3 fL (83.0-100.0); Mean Platelet Volume 10.2 fL (9.4-12.4); Monocytes # 0.7 K/mcL (0.0-1.3); Monocytes % 8.3 %; Neutrophils # 5.3 K/mcL (1.6-8.9); Platelet Count 193 K/mcL (140-400); Red Blood Count 4.13 M/mcL (4.19-5.50); Red Cell Distribution Width 14.2 % (11.5-14.5); Segmented Neutrophils % 67.6 %
[2016-12-23] MEDS: Acetaminophen 325 MG TABLET PO PRN (01:22)
[2016-12-23 01:34] LABS: BUN/Creatinine Ratio 17 (6-26); Blood Urea Nitrogen 20 mg/dL (8-26); Calcium 9.1 mg/dL (8.6-10.8); Carbon Dioxide 24 mEq/L (19-29); Chloride 106 mEq/L (98-109); Glucose 108 mg/dL (70-99); Magnesium 1.7 mg/dL (1.6-2.6); Osmolality,Calculated 291 (280-300); Phosphorous 3.2 mg/dL (2.3-4.7); Potassium 4.3 mEq/L (3.5-4.5); Sodium 139 mEq/L (136-145); eGFR For African Americans > 60 (> 60); eGFR For Non-African Americans > 60 (> 60)
[2016-12-23] MEDS: *HR* Heparin 5,000 UNIT/ML VIAL SQ SCH ×2 (06:14→16:52)
[2016-12-23] MEDS: Insulin LISPRO 300 UNITS/3 ML VIAL SQ SCH ×4 (08:37→20:38)
[2016-12-23] MEDS: *HR* Ticagrelor 90 MG TABLET PO SCH ×2 (08:42→20:37)
[2016-12-23] MEDS: Isosorbide MONOnitrate (24 HR) 60 MG TAB.ER.24H PO SCH (08:42)
[2016-12-23] MEDS: amLODIPine 5 MG TABLET PO SCH (08:42)
[2016-12-23] MEDS: Aspirin Enteric Coated 81 MG Tablet PO SCH (08:43)
[2016-12-23] MEDS: Doxycycline 100 MG CAPSULE PO SCH ×2 (08:44→20:37)
--- NOTE | 2016-12-23 10:34 | Internal Med Progress Note ---
Date of Encounter: 12/23/16 Time of Encounter: 10:32 - Assessment and plan (1) Acute on chronic systolic (congestive) heart failure Current Visit: Yes Status: Acute Assessment and plan: Likely secondary to medication noncompliance continue diuresis (lasix 40mg PO qd) monitor I/Os, daily weights fluid restriction diet (1.5L/day) cardiology evaluation requested O2 supplementation as needed will continue to closely monitor 2D echo from October 2016: LVEF 35-40%. Global LV systolic dysfunction with regional variations in the inferior wall. continue Imdur (pt tolerating medication appropriately) d/c pending ECF placement (2) UTI (urinary tract infection) Current Visit: Yes Status: Acute Assessment and plan: urine culture: Enterococcus species continue Doxycycline as per urine culture sensitivities Qualifiers: Urinary tract infection type: acute cystitis Hematuria presence: with hematuria Qualified Code(s): N30.01 - Acute cystitis with hematuria (3) CAD (coronary artery disease) of bypass graft Current Visit: No Status: Chronic Assessment and plan: No signs of angina present at this time TNI elevation likely demand ischemia in the setting of CHF decompensation will continue ASA, Brilinta, BB, statin Qualifiers: [place] vs. transplanted heart: [place] heart Associated angina: without angina Qualified Code(s): I25.810 - Atherosclerosis of coronary artery bypass graft(s) without angina pectoris (4) DM2 (diabetes mellitus, type 2) Current Visit: No Status: Chronic Assessment and plan: BG within acceptable range holding oral antihyperglycemic agents continue sliding scale insulin algorithm monitor FS and BG ADA diet Qualifiers: Diabetes mellitus complication status: with circulatory complication Diabetes mellitus complication detail: with other circulatory complications Diabetes mellitus care home insulin use: with care home use Qualified Code(s) : E11.59 - Type 2 diabetes mellitus with other circulatory complications; Z79.4 - medical terminologist (current) use of insulin (5) Gross hematuria Current Visit: No Status: Resolved Assessment and plan: Resolved at this time H&H within acceptable range (6) HTN (hypertension) Current Visit: No Status: Chronic Assessment and plan: BP within acceptable range continueLisinopril 2.5mg PO qdaily continue Imdur 120mg PO qd continue home dose of Amlodipine and BB will closely monitor Qualifiers: Hypertension type: essential hypertension Qualified Code(s): I10 - Essential (primary) hypertension (7) HLD (hyperlipidemia) Current Visit: No Status: Chronic Assessment and plan: continue Atorvastatin Qualifiers: Hyperlipidemia type: pure hypercholesterolemia Qualified Code(s): E78.00 - Pure hypercholesterolemia, unspecified; E78.0 - Pure hypercholesterolemia (8) Paroxysmal a-fib Current Visit: No Status: Chronic Assessment and plan: Rate controlled with BB, will continue not on anticoagulation likely due to history of bleeding continue ASA (9) DVT prophylaxis Current Visit: No Status: Acute Assessment and plan: Heparin SQ (10) History of smoking Current Visit: No Status: Chronic Assessment and plan: Duonebs prn q4h - Subjective Interval history: Patient is a 76y/o male admitted for acute respiratory distress secondary to CHF exacerbation. Pt seen and examined at bedside. Resting in bed and reports of feeling better at this time. Pt reported of chest pain yesterday evening, no EKG changes were reported, serial TNI trending down and lower than his previous lab values. No chest pain reported at this time. patient was evaluated by Physical therapy, ECF was recommended. account services specialist are involved as it is reported that patient is not getting access to his home medications after discharge. - Constitutional Vitals: Temp Pulse Resp BP Pulse Ox 98.2 F 67 17 135/88 99 12/23/16 06:44 12/23/16 06:44 12/23/16 06:44 12/23/16 06:44 12/23/16 06:44 General appearance: Present: A&O X 3 (hard of hearing), no acute distress, answers questions appropriately - Head Head exam: Present: atraumatic, normocephalic - Eye Eye exam: Present: conjuntiva pink, sclera anicteric - Respiratory Respiratory exam: Present: CTAB. Absent: accessory muscle use, rales, rhonchi, wheezes - Cardiovascular Cardiovascular exam: Present: irregular rhythm, +S1, +S2 - GI/Abdominal GI/Abdominal exam: Present: normal bowel sounds, soft, no peritoneal signs. Absent: distended, tenderness - Extremities Exam Extremities exam: Present: warm, radial pulses palpable and symmetrical. Absent : calf tenderness, cyanotic, pedal edema - Neurological Exam Neurological exam: Present: alert, oriented X3 - Psychiatric Psychiatric exam: Present: normal affect, normal mood Internal Medicine: Result - Labs CBC & Chem 7: 12/23/16 01:02 12/23/16 01:02 Labs: Short CBC 12/23/16 Range/Units 01:02 WBC 7.8 (4.3-11.1) K/mcL Hgb 11.9 L (12.9-16.9) g/dL Hct 37.3 L (37.5-50.1) % Plt Count 193 (140-400) K/mcL Neutrophils # 5.3 (1.6-8.9) K/mcL BMP 12/23/16 01:02 Sodium 139 Potassium 4.3 Chloride 106 Carbon Dioxide 24 BUN 20 Creatinine 1.16 Glucose 108 H Calcium 9.1 Cardiac Enzymes 12/22/16 12/23/16 12/23/16 Range/Units 16:41 01:02 06:14 Troponin I 0.04 H* 0.05 H* 0.03 (0-0.03) ng/mL - ABG Interpretation ABG results: PT/INR, D-dimer PT 12.1 Seconds (9.4-12.1) 12/20/16 04:10 Consult Discharge Plan - Plan Referrals: Lance Cronin MD [Partnered Physician] - 12/31/16 10:15 am
[2016-12-23] MEDS: Furosemide 40 MG TABLET PO SCH (12:12)
[2016-12-24 04:03] LABS: Basophils # 0.1 K/mcL (0.0-0.2); Basophils % 0.8 %; Eosinophils # 0.2 K/mcL (0.0-0.6); Eosinophils % 2.6 %; Hematocrit 38.4 % (37.5-50.1); Hemoglobin 12.8 g/dL (12.9-16.9); Immature Granulocytes % 0.5 % (0-4); Lymphocytes # 1.4 K/mcL (0.6-4.6); Lymphocytes % 17.5 %; Mean Corpuscular HGB Conc 33.3 g/dL (31.6-35.5); Mean Corpuscular Hemoglobin 29.6 pg (28.0-33.3); Mean Corpuscular Volume 88.9 fL (83.0-100.0); Mean Platelet Volume 10.2 fL (9.4-12.4); Monocytes # 0.8 K/mcL (0.0-1.3); Monocytes % 9.4 %; Neutrophils # 5.5 K/mcL (1.6-8.9); Platelet Count 199 K/mcL (140-400); Red Blood Count 4.32 M/mcL (4.19-5.50); Red Cell Distribution Width 14.1 % (11.5-14.5); Segmented Neutrophils % 69.2 %
[2016-12-24 04:15] LABS: BUN/Creatinine Ratio 15 (6-26); Blood Urea Nitrogen 17 mg/dL (8-26); Calcium 9.2 mg/dL (8.6-10.8); Carbon Dioxide 25 mEq/L (19-29); Chloride 106 mEq/L (98-109); Glucose 139 mg/dL (70-99); Magnesium 1.7 mg/dL (1.6-2.6); Osmolality,Calculated 292 (280-300); Phosphorous 2.8 mg/dL (2.3-4.7); Potassium 3.9 mEq/L (3.5-4.5); Sodium 139 mEq/L (136-145); eGFR For African Americans > 60 (> 60); eGFR For Non-African Americans > 60 (> 60)
[2016-12-24] MEDS: Acetaminophen 325 MG TABLET PO PRN ×2 (04:37→11:57)
[2016-12-24] MEDS: *HR* Heparin 5,000 UNIT/ML VIAL SQ SCH (04:37)
[2016-12-24 06:50] VITALS: BP 143/82
--- NOTE | 2016-12-24 08:21 | Electrocardiograph Report ---
[place] [id number] Test Date: 2016-12-22 Pat Name: Yue Pizarro Department: 111 Room: 2NE26 Gender: M Adaptive Physical Educator: REJI : 1940 Requested By: Mony Terrazas Order Number: [id number] Reading MD: Terrance Maldonado MD Measurements Intervals [place] Rate: 73 P: 5 OK: 143 QRS: -55 QRSD: 190 T: 131 QT: 510 QTc: 535 Interpretive Statements ELECTRONIC VENTRICULAR PACEMAKER Electronically Signed On 12-24-2016 8:19:52 EDT by Terrance Maldonado MD
--- NOTE | 2016-12-24 09:53 | Discharge Summary ---
Date of Encounter: 12/24/16 Time of Encounter: 08:45 - Discharge Diagnosis (1) Acute on chronic systolic (congestive) heart failure Priority: Primary Status: Acute (2) UTI (urinary tract infection) Priority: Secondary Status: Acute Qualifiers: Urinary tract infection type: acute cystitis Hematuria presence: with hematuria Qualified Code(s): N30.01 - Acute cystitis with hematuria (3) CAD (coronary artery disease) of bypass graft Priority: Secondary Status: Chronic Qualifiers: [place] vs. transplanted heart: [place] heart Associated angina: without angina Qualified Code(s): I25.810 - Atherosclerosis of coronary artery bypass graft(s) without angina pectoris (4) DM2 (diabetes mellitus, type 2) Priority: Secondary Status: Chronic Qualifiers: Diabetes mellitus complication status: with circulatory complication Diabetes mellitus complication detail: with other circulatory complications Diabetes mellitus laborer marine terminal insulin use: with laborer marine terminal use Qualified Code(s) : E11.59 - Type 2 diabetes mellitus with other circulatory complications; Z79.4 - nursing home (current) use of insulin (5) Gross hematuria Priority: Secondary Status: Resolved (6) HTN (hypertension) Priority: Secondary Status: Chronic Qualifiers: Hypertension type: essential hypertension Qualified Code(s): I10 - Essential (primary) hypertension (7) HLD (hyperlipidemia) Priority: Secondary Status: Chronic Qualifiers: Hyperlipidemia type: pure hypercholesterolemia Qualified Code(s): E78.00 - Pure hypercholesterolemia, unspecified; E78.0 - Pure hypercholesterolemia (8) Paroxysmal a-fib Priority: Secondary Status: Chronic (9) DVT prophylaxis Priority: Secondary Status: Acute (10) History of smoking Priority: Secondary Status: Chronic - Discharge Medications Prescriptions: amLODIPine [Norvasc] 10 mg PO DAILY #30 tab Aspirin Enteric Coated [Aspirin EC] 81 mg PO DAILY #30 tablet Atorvastatin [Lipitor] 40 mg PO HS #30 tablet Carvedilol [Coreg] 3.125 mg PO BIDWM 30 Days tab Doxycycline 100 mg PO BID #13 capsule Furosemide [Lasix] 40 mg PO DAILY #30 tablet Isosorbide MONOnitrate (24 HR) [Imdur] 120 mg PO DAILY #30 tab Lisinopril [Zestril] 2.5 mg PO DAILY #30 tab metFORMIN [Glucophage] 500 mg PO BID #60 tablet Tamsulosin [Flomax] 0.4 mg PO DAILY #30 capsule Ticagrelor [Brilinta] 90 mg PO BID 30 Days tab Home Medications: Nitroglycerin [Nitrostat] 0.4 mg SL Q5M PRN 10/01/16 [History] Omeprazole [PriLOSEC] 20 mg PO BIDAC #60 11/04/16 [Rx] Ascorbate Calcium [Vitamin C] 500 mg PO DAILY 11/14/16 [History] Cyanocobalamin (Vitamin B-12) [Vitamin B12] 1,000 mcg PO DAILY 11/14/16 [History ] Multivitamin [One Daily Essential] 1 tab PO DAILY 11/14/16 [History] Aspirin Enteric Coated [Aspirin EC] 81 mg PO DAILY #30 tablet.dr 12/24/16 [Rx] Atorvastatin [Lipitor] 40 mg PO HS #30 tablet 12/24/16 [Rx] Carvedilol [Coreg] 3.125 mg PO BIDWM 30 Days tab 12/24/16 [Rx] Doxycycline 100 mg PO BID #13 capsule 12/24/16 [Rx] Furosemide [Lasix] 40 mg PO DAILY #30 tablet 12/24/16 [Rx] Isosorbide MONOnitrate (24 HR) [Imdur] 120 mg PO DAILY #30 tab 12/24/16 [Rx] Lisinopril [Zestril] 2.5 mg PO DAILY #30 tab 12/24/16 [Rx] Tamsulosin [Flomax] 0.4 mg PO DAILY #30 capsule 12/24/16 [Rx] Ticagrelor [Brilinta] 90 mg PO BID 30 Days tab 12/24/16 [Rx] amLODIPine [Norvasc] 10 mg PO DAILY #30 tab 12/24/16 [Rx] metFORMIN [Glucophage] 500 mg PO BID #60 tablet 12/24/16 [Rx] Allergies/Adverse Reactions: 3 Allergy/AdvReac Type Severity Reaction Status Date / Time Oxycodone [From Percocet] Allergy Hives Verified 12/20/16 11:51 tramadol Allergy Hives Verified 12/20/16 11:51 Procedures/tests Complete & Pending: Procedures Performed prior 72 hours Category Date Time Status ECG 12 lead ECG [ECG] Routine Y 12/22/16 15:07 Completed Date of admission: 12/21/16 16:31 Primary care physician: PCP NONE Consults: 12/22/16 09:41 Consult to Physical Therapy [CONS] Routine Comment: Evaluate, develop and implement POC Reason for Consult: evaluation for placement 12/23/16 08:09 Consult to Occupational Therapy [CONS] Routine Comment: Evaluate, develop and implement POC Reason for Consult: evaluate for placement Discharging clinician: Mony Terrazas Anticipated date of discharge: 12/24/16 - Patient Status Disposition: Home Health Service Condition: Good Functional capacity at discharge: uses cane/walker Overall status at discharge: patient is back to baseline - Discharge Instructions Follow Up With: Lance Cronin MD [Partnered Physician] - 12/31/16 10:15 am Additional Instructions: Please follow up with your primary care physician within one week after your discharge from the hospital. Please continue oral antibiotics as prescribed. First dose this evening. Please continue all your home medications as prescribed by your primary care physician. - Diet and Activity Activity: as per physical therapy Diet: diabetic diet, low salt diet Hospital course: Mr. Pizarro is a 76 year old male with PMH of CAD s/p stent placement, CHF, DM , Afib who was admitted for CHF decompensation and UTI. pt was started on IV diuretics to which he responded appropriately. He was empirically started on IV abx for his UTI, which were further de-escalated according the urine cultures. Pt was evaluated by physical therapy and ECF was recommended. Pt is known to have extensive social issues in regards to his medical management. He lives with his who is his primary healthcare administration internship. It has been reported numerous times that the has been keeping patient's medications away from him and has been refusing home health services in the past. Patient is AAO x 3 however does not have the understanding of his medical illnesses. He follows his 's care plan. He has had recurrent hospitalization due to missed home dosages of his prescribed medications. He is currently refusing ECF placement because his does not want to go to an ECF. He is agreeing to home health services at this time. managed services consultant were involved in the care of the patient. The social work professor Neto had extensive conversation with patient's , and continues to refuse ECF. At this time, patient is hemodynamically stable and will be discharged to home with follow up with PCP. - Time Spent with Patient Total time spent providing and/or coordinating discharge services: Greater than 30 minutes - Constitutional Vitals: Temp Pulse Resp BP Pulse Ox 98.1 F 62 15 143/82 97 12/24/16 06:00 12/24/16 06:00 12/24/16 06:00 12/24/16 06:00 12/24/16 06:00 General appearance: Present: A&O X 3 (hard of hearing), no acute distress, answers questions appropriately - Head Head exam: Present: atraumatic, normocephalic - Eye Eye exam: Present: conjuntiva pink, sclera anicteric - Respiratory Respiratory exam: Present: CTAB. Absent: respiratory distress, wheezes - Cardiovascular Cardiovascular exam: Present: RRR, +S1, +S2. Absent: diastolic murmur, gallop, rubs, systolic murmur - GI/Abdominal GI/Abdominal exam: Present: normal bowel sounds, soft, no peritoneal signs. Absent: distended, tenderness - Extremities Exam Extremities exam: Present: warm, radial pulses palpable and symmetrical. Absent : calf tenderness, cyanotic, pedal edema - Neurological Exam Neurological exam: Present: alert, oriented X3 - Psychiatric Psychiatric exam: Present: normal affect, normal mood
--- NOTE | 2016-12-24 10:08 | Physician Discharge Referral ---
Home Health/Hosp Referral Info Transfer to: Home Health Provider in Charge Post Discharge: PCP - Diagnosis (1) Acute on chronic systolic (congestive) heart failure Priority: Primary Status: Acute (2) UTI (urinary tract infection) Priority: Secondary Status: Acute (3) CAD (coronary artery disease) of bypass graft Priority: Secondary Status: Chronic (4) DM2 (diabetes mellitus, type 2) Priority: Secondary Status: Chronic (5) Gross hematuria Priority: Secondary Status: Resolved (6) HTN (hypertension) Priority: Secondary Status: Chronic (7) HLD (hyperlipidemia) Priority: Secondary Status: Chronic (8) Paroxysmal a-fib Priority: Secondary Status: Chronic (9) DVT prophylaxis Priority: Secondary Status: Acute (10) History of smoking Priority: Secondary Status: Chronic - Respiratory Orders Smoking Cessation: Smoking cessation has been advised. For more information, call the [place] Tobacco Quit Line at 3-098-NJDK-NOW. - Services Needed Following services are medically necessary services: Nursing (Please inspect patient's home medications during each visit, he has history of noncompliance due to which he has multiple re-hospitalizations.), Home Health Aide, Physical Therapy, Occupational Therapy, Med Social Work - Transfer Medications Prescriptions: amLODIPine [Norvasc] 10 mg PO DAILY #30 tab Aspirin Enteric Coated [Aspirin EC] 81 mg PO DAILY #30 tablet. Atorvastatin [Lipitor] 40 mg PO HS #30 tablet Carvedilol [Coreg] 3.125 mg PO BIDWM 30 Days tab Doxycycline 100 mg PO BID #13 capsule Furosemide [Lasix] 40 mg PO DAILY #30 tablet Isosorbide MONOnitrate (24 HR) [Imdur] 120 mg PO DAILY #30 tab Lisinopril [Zestril] 2.5 mg PO DAILY #30 tab metFORMIN [Glucophage] 500 mg PO BID #60 tablet Tamsulosin [Flomax] 0.4 mg PO DAILY #30 capsule Ticagrelor [Brilinta] 90 mg PO BID 30 Days tab Home Medications: Nitroglycerin [Nitrostat] 0.4 mg SL Q5M PRN 10/01/16 [History] Omeprazole [PriLOSEC] 20 mg PO BIDAC #60 11/04/16 [Rx] Ascorbate Calcium [Vitamin C] 500 mg PO DAILY 11/14/16 [History] Cyanocobalamin (Vitamin B-12) [Vitamin B12] 1,000 mcg PO DAILY 11/14/16 [History ] Multivitamin [One Daily Essential] 1 tab PO DAILY 11/14/16 [History] Aspirin Enteric Coated [Aspirin EC] 81 mg PO DAILY #30 tablet. 12/24/16 [Rx] Atorvastatin [Lipitor] 40 mg PO HS #30 tablet 12/24/16 [Rx] Carvedilol [Coreg] 3.125 mg PO BIDWM 30 Days tab 12/24/16 [Rx] Doxycycline 100 mg PO BID #13 capsule 12/24/16 [Rx] Furosemide [Lasix] 40 mg PO DAILY #30 tablet 12/24/16 [Rx] Isosorbide MONOnitrate (24 HR) [Imdur] 120 mg PO DAILY #30 tab 12/24/16 [Rx] Lisinopril [Zestril] 2.5 mg PO DAILY #30 tab 12/24/16 [Rx] Tamsulosin [Flomax] 0.4 mg PO DAILY #30 capsule 12/24/16 [Rx] Ticagrelor [Brilinta] 90 mg PO BID 30 Days tab 12/24/16 [Rx] amLODIPine [Norvasc] 10 mg PO DAILY #30 tab 12/24/16 [Rx] metFORMIN [Glucophage] 500 mg PO BID #60 tablet 12/24/16 [Rx] Allergies/Adverse Reactions: 3 Allergy/AdvReac Type Severity Reaction Status Date / Time Oxycodone [From Percocet] Allergy Hives Verified 12/20/16 11:51 tramadol Allergy Hives Verified 12/20/16 11:51 Certification: Further, I certify that my clinical findings support that this patient is homebound (i.e. absences from home require considerable and taxing effort and are for medical reasons or yarsanism services or infrequently or short duration when for other reasons) because: Homebound Reason: Patient requires assistance of a person or device to safely leave home Attestation: My signature below is to certify that this patient is under my care and that I, or nurse practitioner, or a physician's office assistant working with me, has a face-to -face encounter with this patient.
[2016-12-24] MEDS: amLODIPine 5 MG TABLET PO SCH (10:10)
[2016-12-24] MEDS: *HR* Ticagrelor 90 MG TABLET PO SCH (10:11)
[2016-12-24] MEDS: Doxycycline 100 MG CAPSULE PO SCH (10:13)
[2016-12-24] MEDS: Furosemide 40 MG TABLET PO SCH (10:13)
[2016-12-24] MEDS: Insulin LISPRO 300 UNITS/3 ML VIAL SQ SCH (10:13)
[2016-12-24] MEDS: Aspirin Enteric Coated 81 MG Tablet PO SCH (10:13)
[2016-12-24] MEDS: Isosorbide MONOnitrate (24 HR) 60 MG TAB.ER.24H PO SCH (10:13)
== END 2016-12-24 13:50 | disposition home health service (06) | DRG 292 ==
LOC: 2NENU 03:37 → EMEROO 03:37 → SUATTDRO 05:30 → 2NENU 05:47
PROVIDERS: ADMIT Family Medicine; ATTEND Internal Medicine

== ENCOUNTER 2017-01-28 05:45 | Inpatient (IN) ==
[2017-01-28] MEDS ORDERED: Furosemide 40 MG/4 ML VIAL IVP ONE ×2 (06:10→07:57)
[2017-01-28] MEDS ORDERED: Nitroglycerin 1 INCH/GM PACKET TP ONE (06:11)
--- NOTE | 2017-01-28 06:14 | Emergency Department Note ---
Disposition Clinical Impression: CHF exacerbation Qualifiers: Congestive heart failure type: unspecified congestive heart failure type Qualified Code(s): I50.9 - Heart failure, unspecified Dyspnea Qualifiers: Dyspnea type: unspecified Qualified Code(s): R06.00 - Dyspnea, unspecified Chest pain Qualifiers: Chest pain type: unspecified Qualified Code(s): R07.9 - Chest pain, unspecified Disposition: Still a Patient Condition: Good Referrals: Lance Cronin MD [Primary Care Provider] - Forms: ED Satisfaction Letter General Adult HPI - General Chief complaint: ED Shortness of Breath/Dyspnea Stated complaint: MAYELIN Time Seen by Provider: 01/28/17 05:53 Source: patient Limitations: no limitations Nursing Notes Reviewed: Yes Vital Signs Reviewed: Yes - History of Present Illness HPI Narrative: 76-year-old male with significant past medical history of diabetes, hypertension , coronary arterial disease, recent stent in October, prior CABG. He presents with approximately 4 hours of increasing dyspnea. He does have dyspnea with exertion and orthopnea. He does have a history of congestive heart failure. He is not on dialysis. He is also complaining of some pain and swelling in his left lower extremity. He denies having a fever. He has a cough that is not productive. Pain Severity: moderate Pain Scale: 5 Consistency: constant Improves with: other (Sitting up) Associated symptoms: Reports: denies other symptoms, chest pain (He is also having some mild chest pressure) Treatments Prior to Arrival: none - Related Data Home Medications Medication Instructions Recorded Confirmed Nitroglycerin [Nitrostat] 0.4 mg SL Q5M PRN 10/01/16 01/28/17 Ascorbate Calcium [Vitamin C] 500 mg PO DAILY 11/14/16 01/28/17 Cyanocobalamin (Vitamin B-12) 1,000 mcg PO DAILY 11/14/16 01/28/17 [Vitamin B12] Multivitamin [One Daily Essential] 1 tab PO DAILY 11/14/16 01/28/17 Previous Rx's Medication Instructions Recorded Omeprazole [PriLOSEC] 20 mg PO BIDAC #60 11/04/16 Aspirin Enteric Coated [Aspirin EC] 81 mg PO DAILY #30 tablet. 12/24/16 Atorvastatin [Lipitor] 40 mg PO HS #30 tablet 12/24/16 Carvedilol [Coreg] 3.125 mg PO BIDWM 30 Days tab 12/24/16 Furosemide [Lasix] 40 mg PO DAILY #30 tablet 12/24/16 Isosorbide MONOnitrate (24 HR) 120 mg PO DAILY #30 tab 12/24/16 [Imdur] Lisinopril [Zestril] 2.5 mg PO DAILY #30 tab 12/24/16 Tamsulosin [Flomax] 0.4 mg PO DAILY #30 capsule 12/24/16 Ticagrelor [Brilinta] 90 mg PO BID 30 Days tab 12/24/16 amLODIPine [Norvasc] 10 mg PO DAILY #30 tab 12/24/16 metFORMIN [Glucophage] 500 mg PO BID #60 tablet 12/24/16 Allergies Allergy/AdvReac Type Severity Reaction Status Date / Time Oxycodone [From Percocet] Allergy Hives Verified 01/28/17 05:46 tramadol Allergy Hives Verified 01/28/17 05:46 All systems ED: reviewed and negative except as stated. Constitutional: Denies: fever Cardiovascular: Reports: chest pain Respiratory: Reports: cough, dyspnea Gastrointestinal: Denies: abdominal pain Musculoskeletal: Denies: back pain Integumentary: Denies: rash Endocrine: Reports: fatigue Past Medical History - Past Medical History Medical history: Reports: asthma, atrial fibrillation, CHF, coronary artery disease, CVA, diabetes, hypertension, myocardial infarction, thyroid disease Surgical history: Reports: angioplasty/stent, cholecystectomy, coronary bypass ( CABG), pacemaker/AICD Psychiatric history: Reports: no psych history - Social History Smoking Status: Former smoker Smokeless Tobacco Status: No Alcohol use: Reports: none Drug use: Reports: none Physical Exam - General Limitations: no limitations General appearance: alert - Head Head exam: atraumatic - Eye Eye exam: Present: normal appearance, PERRL - ENT ENT exam: normal exam - Neck Neck exam: Present: normal inspection - Chest Chest inspection: Present: normal inspection - Respiratory Respiratory exam: Present: other (Course lung sounds in the bases). Absent: respiratory distress - Cardiovascular Cardiovascular exam: Present: regular rate, normal rhythm - Abdominal Exam Abdominal exam: Present: soft, Non-Tender - Extremities Exam Extremities exam: Present: normal inspection. Absent: pedal edema, calf tenderness - Neurological Exam Neurological exam: Present: alert, oriented X3 - Psychiatric Psychiatric exam: Present: normal affect, normal mood - Skin Skin exam: Present: warm, dry Course Course Narrative: He apparently is having a congestive heart failure exacerbation. I will go ahead and give him some Lasix and placed a nitroglycerin patch. SPO2 is 93% on room air and he is in no respiratory distress. I will order a d-dimer due to the swelling that he has complained of in the left lower extremity. EKG shows a paced rhythm without fulfillment of William's criteria. He will be admitted for chest pain and congestive heart failure exacerbation pending further evaluation with lab work. This patient has been signed out to the day team for following up on labwork and final disposition. Vital Signs Temperature 97.3 F L 01/28/17 05:46 Pulse Rate 87 01/28/17 05:46 Respiratory Rate 22 01/28/17 05:46 Blood Pressure 185/98 01/28/17 05:46 O2 Sat by Pulse Oximetry 96 01/28/17 05:46 Temperature 97.3 F L 01/28/17 05:46 Pulse Rate 87 01/28/17 05:46 Respiratory Rate 22 01/28/17 05:46 Blood Pressure 185/98 01/28/17 05:46 O2 Sat by Pulse Oximetry 96 01/28/17 05:46 Oxygen Delivery Oxygen Delivery Room Air Medical Decision Making - Medical Records Medical records reviewed: Yes I reviewed the patient's medical records. - Lab Data Lab results reviewed: Yes I reviewed the patient's lab results. Result diagrams: 01/28/17 06:34 Lab Results 01/28/17 Range/Units 06:34 WBC 8.8 (4.3-11.1) K/mcL RBC 4.99 (4.19-5.50) M/mcL Hgb 14.4 (12.9-16.9) g/dL Hct 44.7 (37.5-50.1) % MCV 89.6 (83.0-100.0) fL MCH 28.9 (28.0-33.3) pg MCHC 32.2 (31.6-35.5) g/dL RDW 14.2 (11.5-14.5) % Plt Count 199 (140-400) K/mcL MPV 10.7 (9.4-12.4) fL Immature Gran % 0.3 (0-4) % Seg Neutrophils % 76.0 % Lymphocytes % 13.9 % Monocytes % 7.1 % Eosinophils % 2.1 % Basophils % 0.6 % Neutrophils # 6.7 (1.6-8.9) K/mcL Lymphocytes # 1.2 (0.6-4.6) K/mcL Monocytes # 0.6 (0.0-1.3) K/mcL Eosinophils # 0.2 (0.0-0.6) K/mcL Basophils # 0.1 (0.0-0.2) K/mcL - Radiology Data Radiology results reviewed: Yes I reviewed the patient's radiology results. - EKG Data EKG #1 EKG attestation: Yes I reviewed and interpreted this EKG. When compared to previous EKG there are: no significant changes Interpretation: other (Paced rhythm. Ventricular pacemaker rate of 86.No scarbosa criteria fulfilled.) Attestation Statement - Attestation Attestation: I, Alejandro Velásquez MD, personally evaluated this patient and discussed their management with the resident physician. I reviewed the resident's note and agree with the documented findings, medical decision making, and plan of care. 76-year-old male presents to the emergency department complaining of shortness of breath since about 1 AM this morning. Dyspnea is worse with lying down and also with exertion. No increased cough or fever. He also admits to some bilateral mid chest pain which she describes as dull aching pressure. He denies pain at present. He complains of some increased swelling in his left foot and lower leg which started yesterday. On examination patient is a well-developed well-nourished elderly male in no acute distress. He is alert and oriented 3. There is no cyanosis or diaphoresis. Patient very hard of hearing. Chest is nontender to palpation. Breath sounds are equal bilaterally with some moist bibasilar rales. No wheezes. Heart regular rate and rhythm. Abdomen soft and nontender with normal bowel sounds. There is 1+ pitting edema of the lower extremities bilaterally, slightly worse on the left. EKG shows an electronic ventricular pacemaker with a totally paced rhythm. At shift change patient is signed out to the oncoming dayshift team, Dr. Lal and Dr. Hunter.
[2017-01-28 06:40] LABS: Basophils # 0.1 K/mcL (0.0-0.2); Basophils % 0.6 %; Eosinophils # 0.2 K/mcL (0.0-0.6); Eosinophils % 2.1 %; Hematocrit 44.7 % (37.5-50.1); Hemoglobin 14.4 g/dL (12.9-16.9); Immature Granulocytes % 0.3 % (0-4); Lymphocytes # 1.2 K/mcL (0.6-4.6); Lymphocytes % 13.9 %; Mean Corpuscular HGB Conc 32.2 g/dL (31.6-35.5); Mean Corpuscular Hemoglobin 28.9 pg (28.0-33.3); Mean Corpuscular Volume 89.6 fL (83.0-100.0); Mean Platelet Volume 10.7 fL (9.4-12.4); Monocytes # 0.6 K/mcL (0.0-1.3); Monocytes % 7.1 %; Neutrophils # 6.7 K/mcL (1.6-8.9); Platelet Count 199 K/mcL (140-400); Red Blood Count 4.99 M/mcL (4.19-5.50); Red Cell Distribution Width 14.2 % (11.5-14.5)
[2017-01-28 06:55] LABS: BUN/Creatinine Ratio 19 (6-26); Blood Urea Nitrogen 20 mg/dL (8-26); Calcium 9.5 mg/dL (8.6-10.8); Carbon Dioxide 23 mEq/L (19-29); Chloride 107 mEq/L (98-109); Glucose 155 mg/dL (70-99); Osmolality,Calculated 296 (280-300); Potassium 3.9 mEq/L (3.5-4.5); Sodium 140 mEq/L (136-145); eGFR For African Americans > 60 (> 60); eGFR For Non-African Americans > 60 (> 60)
--- NOTE | 2017-01-28 07:11 | Emergency Department Note ---
Disposition Clinical Impression: CHF exacerbation Qualifiers: Congestive heart failure type: unspecified congestive heart failure type Qualified Code(s): I50.9 - Heart failure, unspecified Dyspnea Qualifiers: Dyspnea type: unspecified Qualified Code(s): R06.00 - Dyspnea, unspecified Chest pain Qualifiers: Chest pain type: unspecified Qualified Code(s): R07.9 - Chest pain, unspecified Disposition: Still a Patient Condition: Good Referrals: Lance Cronin MD [Primary Care Provider] - Forms: ED Satisfaction Letter SOB HPI - General Chief Complaint: ED Shortness of Breath/Dyspnea Stated Complaint: MAYELIN Time Seen by Provider: 01/28/17 05:53 Source: patient Limitations: no limitations Nursing Notes Reviewed: Yes Vital Signs Reviewed: Yes - History of Present Illness Mr. Pizarro, a 76-year-old male, presents from home via EMS for evaluation of dyspnea. Onset 01:00 this morning. This awoke him from sleep. Worse with exertion and worse with laying supine. He is also complaining of some pain and swelling in his left lower extremity. He has a significant past medical history of CHF, diabetes, hypertension, coronary arterial disease, recent stent in October, prior CABG. A. Fib, Pacemaker/AICD. Antiplatelet: Brilanta, aspirin Anticoagulant: none - Related Data Home Medications Medication Instructions Recorded Confirmed Nitroglycerin [Nitrostat] 0.4 mg SL Q5M PRN 10/01/16 01/28/17 Ascorbate Calcium [Vitamin C] 500 mg PO DAILY 11/14/16 01/28/17 Cyanocobalamin (Vitamin B-12) 1,000 mcg PO DAILY 11/14/16 01/28/17 [Vitamin B12] Multivitamin [One Daily Essential] 1 tab PO DAILY 11/14/16 01/28/17 Previous Rx's Medication Instructions Recorded Omeprazole [PriLOSEC] 20 mg PO BIDAC #60 11/04/16 Aspirin Enteric Coated [Aspirin EC] 81 mg PO DAILY #30 tablet. 12/24/16 Atorvastatin [Lipitor] 40 mg PO HS #30 tablet 12/24/16 Carvedilol [Coreg] 3.125 mg PO BIDWM 30 Days tab 12/24/16 Furosemide [Lasix] 40 mg PO DAILY #30 tablet 12/24/16 Isosorbide MONOnitrate (24 HR) 120 mg PO DAILY #30 tab 12/24/16 [Imdur] Lisinopril [Zestril] 2.5 mg PO DAILY #30 tab 12/24/16 Tamsulosin [Flomax] 0.4 mg PO DAILY #30 capsule 12/24/16 Ticagrelor [Brilinta] 90 mg PO BID 30 Days tab 12/24/16 amLODIPine [Norvasc] 10 mg PO DAILY #30 tab 12/24/16 metFORMIN [Glucophage] 500 mg PO BID #60 tablet 12/24/16 Allergies Allergy/AdvReac Type Severity Reaction Status Date / Time Oxycodone [From Percocet] Allergy Hives Verified 01/28/17 05:46 tramadol Allergy Hives Verified 01/28/17 05:46 Constitutional: Denies: fever Cardiovascular: Reports: chest pain Respiratory: Reports: cough, dyspnea Gastrointestinal: Denies: abdominal pain Musculoskeletal: Denies: back pain Integumentary: Denies: rash Endocrine: Reports: fatigue Past Medical History - Past Medical History Medical history: Reports: asthma, atrial fibrillation, CHF, coronary artery disease, CVA, diabetes, hypertension, myocardial infarction, thyroid disease Surgical history: Reports: angioplasty/stent, cholecystectomy, coronary bypass ( CABG), pacemaker/AICD Psychiatric history: Reports: no psych history - Social History Smoking Status: Former smoker Smokeless Tobacco Status: No Alcohol use: Reports: none Drug use: Reports: none Physical Exam Vital Signs Reviewed General: Patient is alert, oriented, and in no acute distress. HEENT: No facial asymmetry. Head is normocephalic and atraumatic. PERRLA, EOMI. mucosa moist. Trachea midline. Cardiovascular: Heart regular rate and rhythm without clicks, rubs, gallops, or murmurs. No JVD. PMI nondisplaced. Bilateral radial pulses and posterior tibial pulses 2/4 and equal. Right lower extremity trace pedal edema. Left lower extremity 1+ pitting pedal edema. Respiratory: Symmetric chest rise with poor respiratory effort. Prolonged respiratory phase. Bilateral breath sounds have scant crackles with no wheezes or rhonchi. Abdomen: Bowel sounds present normoactive x-4 quadrants. Abdomen is soft, nondistended, and nontender. No organomegaly noted. Musculoskeletal: Spontaneously moving all extremities. Neuro: Sensation light touch intact. Psych: Patient's affect is appropriate for situation. - General Limitations: no limitations General appearance: alert Course Course Narrative: Patient received on sign out from the night team, Dr. Velez and Dr. Velásquez. Because patient's left lower extremity was swollen compared to right, d-dimer was drawn which is within normal limits on an age-adjusted scale. Patient's lung sounds are crackles. Given his significant cardiac history and increased swelling left lower extremity, clinically suspect acute exacerbation of congestive heart failure. Prior to my arrival, he was given Lasix and a Nitropatch. Blood pressure is hypertensive in the 170s slowly coming down with a Nitropatch. Vital Signs Temperature 97.3 F L 01/28/17 05:46 Pulse Rate 87 01/28/17 05:46 Respiratory Rate 22 01/28/17 05:46 Blood Pressure 185/98 01/28/17 05:46 O2 Sat by Pulse Oximetry 96 01/28/17 05:46 Temperature 97.3 F L 01/28/17 05:46 Pulse Rate 86 01/28/17 06:49 Respiratory Rate 20 01/28/17 06:49 Blood Pressure 176/108 01/28/17 06:49 O2 Sat by Pulse Oximetry 95 01/28/17 06:49 Oxygen Delivery Oxygen Delivery Nasal Cannula Shortness of Breath/Dyspnea - Lab Data Result diagrams: 01/28/17 06:34 01/28/17 06:34 Lab Results 01/28/17 01/28/17 01/28/17 Range/Units 06:34 06:34 06:34 WBC 8.8 (4.3-11.1) K/mcL RBC 4.99 (4.19-5.50) M/mcL Hgb 14.4 (12.9-16.9) g/dL Hct 44.7 (37.5-50.1) % MCV 89.6 (83.0-100.0) fL MCH 28.9 (28.0-33.3) pg MCHC 32.2 (31.6-35.5) g/dL RDW 14.2 (11.5-14.5) % Plt Count 199 (140-400) K/mcL MPV 10.7 (9.4-12.4) fL Immature Gran % 0.3 (0-4) % Seg Neutrophils % 76.0 % Lymphocytes % 13.9 % Monocytes % 7.1 % Eosinophils % 2.1 % Basophils % 0.6 % Neutrophils # 6.7 (1.6-8.9) K/mcL Lymphocytes # 1.2 (0.6-4.6) K/mcL Monocytes # 0.6 (0.0-1.3) K/mcL Eosinophils # 0.2 (0.0-0.6) K/mcL Basophils # 0.1 (0.0-0.2) K/mcL D-Dimer 675 H (0-500) ng/mLFEU Sodium 140 (136-145) mEq/L Potassium 3.9 (3.5-4.5) mEq/L Chloride 107 (98-109) mEq/L Carbon Dioxide 23 (19-29) mEq/L BUN 20 (8-26) mg/dL Creatinine 1.07 (0.72-1.25) mg/dL Est GFR ( Amer) > 60 (> 60) Est GFR (Non-Af Amer) > 60 (> 60) BUN/Creatinine Ratio 19 (6-26) Glucose 155 H (70-99) mg/dL Calculated Osmolality 296 (280-300) Calcium 9.5 (8.6-10.8) mg/dL Troponin I (0-0.03) ng/mL B-Natriuretic Peptide (0-100) pg/mL 01/28/17 01/28/17 Range/Units 06:34 06:34 WBC (4.3-11.1) K/mcL RBC (4.19-5.50) M/mcL Hgb (12.9-16.9) g/dL Hct (37.5-50.1) % MCV (83.0-100.0) fL MCH (28.0-33.3) pg MCHC (31.6-35.5) g/dL RDW (11.5-14.5) % Plt Count (140-400) K/mcL MPV (9.4-12.4) fL Immature Gran % (0-4) % Seg Neutrophils % % Lymphocytes % % Monocytes % % Eosinophils % % Basophils % % Neutrophils # (1.6-8.9) K/mcL Lymphocytes # (0.6-4.6) K/mcL Monocytes # (0.0-1.3) K/mcL Eosinophils # (0.0-0.6) K/mcL Basophils # (0.0-0.2) K/mcL D-Dimer (0-500) ng/mLFEU Sodium (136-145) mEq/L Potassium (3.5-4.5) mEq/L Chloride (98-109) mEq/L Carbon Dioxide (19-29) mEq/L BUN (8-26) mg/dL Creatinine (0.72-1.25) mg/dL Est GFR ( Amer) (> 60) Est GFR (Non-Af Amer) (> 60) BUN/Creatinine Ratio (6-26) Glucose (70-99) mg/dL Calculated Osmolality (280-300) Calcium (8.6-10.8) mg/dL Troponin I 0.03 (0-0.03) ng/mL B-Natriuretic Peptide 1055 H (0-100) pg/mL
--- NOTE | 2017-01-28 07:36 | Emergency Department Note ---
Disposition Clinical Impression: CHF exacerbation Qualifiers: Congestive heart failure type: unspecified congestive heart failure type Qualified Code(s): I50.9 - Heart failure, unspecified Dyspnea Qualifiers: Dyspnea type: unspecified Qualified Code(s): R06.00 - Dyspnea, unspecified Chest pain Qualifiers: Chest pain type: unspecified Qualified Code(s): R07.9 - Chest pain, unspecified Disposition: Still a Patient Condition: Good Referrals: Lance Cronin MD [Primary Care Provider] - Forms: ED Satisfaction Letter General Adult HPI - General Chief complaint: ED Shortness of Breath/Dyspnea Stated complaint: MAYELIN Time Seen by Provider: 01/28/17 05:53 Source: patient Limitations: no limitations Nursing Notes Reviewed: Yes Vital Signs Reviewed: Yes - History of Present Illness Pain Scale: 0 Improves with: other (Sitting up) Associated symptoms: Reports: denies other symptoms, chest pain (He is also having some mild chest pressure) Treatments Prior to Arrival: none - Related Data Home Medications Medication Instructions Recorded Confirmed Nitroglycerin [Nitrostat] 0.4 mg SL Q5M PRN 10/01/16 01/28/17 Ascorbate Calcium [Vitamin C] 500 mg PO DAILY 11/14/16 01/28/17 Cyanocobalamin (Vitamin B-12) 1,000 mcg PO DAILY 11/14/16 01/28/17 [Vitamin B12] Multivitamin [One Daily Essential] 1 tab PO DAILY 11/14/16 01/28/17 Previous Rx's Medication Instructions Recorded Omeprazole [PriLOSEC] 20 mg PO BIDAC #60 11/04/16 Aspirin Enteric Coated [Aspirin EC] 81 mg PO DAILY #30 tablet. 12/24/16 Atorvastatin [Lipitor] 40 mg PO HS #30 tablet 12/24/16 Carvedilol [Coreg] 3.125 mg PO BIDWM 30 Days tab 12/24/16 Furosemide [Lasix] 40 mg PO DAILY #30 tablet 12/24/16 Isosorbide MONOnitrate (24 HR) 120 mg PO DAILY #30 tab 12/24/16 [Imdur] Lisinopril [Zestril] 2.5 mg PO DAILY #30 tab 12/24/16 Tamsulosin [Flomax] 0.4 mg PO DAILY #30 capsule 12/24/16 Ticagrelor [Brilinta] 90 mg PO BID 30 Days tab 12/24/16 amLODIPine [Norvasc] 10 mg PO DAILY #30 tab 12/24/16 metFORMIN [Glucophage] 500 mg PO BID #60 tablet 12/24/16 Allergies Allergy/AdvReac Type Severity Reaction Status Date / Time Oxycodone [From Percocet] Allergy Hives Verified 01/28/17 05:46 tramadol Allergy Hives Verified 01/28/17 05:46 Constitutional: Denies: fever Cardiovascular: Reports: chest pain Respiratory: Reports: cough, dyspnea Gastrointestinal: Denies: abdominal pain Musculoskeletal: Denies: back pain Integumentary: Denies: rash Endocrine: Reports: fatigue Past Medical History - Past Medical History Medical history: Reports: asthma, atrial fibrillation, CHF, coronary artery disease, CVA, diabetes, hypertension, myocardial infarction, thyroid disease Surgical history: Reports: angioplasty/stent, cholecystectomy, coronary bypass ( CABG), pacemaker/AICD Psychiatric history: Reports: no psych history - Social History Smoking Status: Former smoker Smokeless Tobacco Status: No Alcohol use: Reports: none Drug use: Reports: none Physical Exam - General Limitations: no limitations General appearance: alert Course Vital Signs Temperature 97.3 F L 01/28/17 05:46 Pulse Rate 87 01/28/17 05:46 Respiratory Rate 22 01/28/17 05:46 Blood Pressure 185/98 01/28/17 05:46 O2 Sat by Pulse Oximetry 96 01/28/17 05:46 Temperature 97.3 F L 01/28/17 05:46 Pulse Rate 78 01/28/17 07:30 Respiratory Rate 16 01/28/17 07:30 Blood Pressure 158/95 01/28/17 07:30 O2 Sat by Pulse Oximetry 94 01/28/17 07:30 Oxygen Delivery Oxygen Delivery Nasal Cannula Medical Decision Making - MDM Narrative Medical decision making narrative: I examined this patient and my medical decision-making was reviewed with the Resident Physician. I agree with the documented findings, disposition and treatment plan as described except to the extent set forth below. Patient was seen and evaluated by the evening ER crew, and was signed out to me this morning. Dr. Gutierrez and I continued care the patient, he came in for a a CHF exacerbation. He is comfortable at this time blood pressure slightly elevated. He did get Nitropaste. Labs are back at this time. He does have CHF. Spoke with the [facility] hospitalist that I go ahead and admit him at this time. Patient is comfortable with admission. I agree with Dr. Gutierrez's evaluation and management plan and supervised the care of the patient for about his stay from the time we got her at 7 AM until admission. Chest X-Ray 01/28/17 06:10 IMPRESSION: Bibasilar opacities are favored to represent atelectasis versus mild edema or pneumonia. D/ / Gomez Otero MD / Gomez Otero MD Interpreting Provider: Gomez Otero MD - Lab Data Result diagrams: 01/28/17 06:34 01/28/17 06:34 Lab Results 01/28/17 01/28/17 01/28/17 Range/Units 06:34 06:34 06:34 WBC 8.8 (4.3-11.1) K/mcL RBC 4.99 (4.19-5.50) M/mcL Hgb 14.4 (12.9-16.9) g/dL Hct 44.7 (37.5-50.1) % MCV 89.6 (83.0-100.0) fL MCH 28.9 (28.0-33.3) pg MCHC 32.2 (31.6-35.5) g/dL RDW 14.2 (11.5-14.5) % Plt Count 199 (140-400) K/mcL MPV 10.7 (9.4-12.4) fL Immature Gran % 0.3 (0-4) % Seg Neutrophils % 76.0 % Lymphocytes % 13.9 % Monocytes % 7.1 % Eosinophils % 2.1 % Basophils % 0.6 % Neutrophils # 6.7 (1.6-8.9) K/mcL Lymphocytes # 1.2 (0.6-4.6) K/mcL Monocytes # 0.6 (0.0-1.3) K/mcL Eosinophils # 0.2 (0.0-0.6) K/mcL Basophils # 0.1 (0.0-0.2) K/mcL D-Dimer 675 H (0-500) ng/mLFEU Sodium 140 (136-145) mEq/L Potassium 3.9 (3.5-4.5) mEq/L Chloride 107 (98-109) mEq/L Carbon Dioxide 23 (19-29) mEq/L BUN 20 (8-26) mg/dL Creatinine 1.07 (0.72-1.25) mg/dL Est GFR ( Amer) > 60 (> 60) Est GFR (Non-Af Amer) > 60 (> 60) BUN/Creatinine Ratio 19 (6-26) Glucose 155 H (70-99) mg/dL Calculated Osmolality 296 (280-300) Calcium 9.5 (8.6-10.8) mg/dL Troponin I (0-0.03) ng/mL B-Natriuretic Peptide (0-100) pg/mL 01/28/17 01/28/17 Range/Units 06:34 06:34 WBC (4.3-11.1) K/mcL RBC (4.19-5.50) M/mcL Hgb (12.9-16.9) g/dL Hct (37.5-50.1) % MCV (83.0-100.0) fL MCH (28.0-33.3) pg MCHC (31.6-35.5) g/dL RDW (11.5-14.5) % Plt Count (140-400) K/mcL MPV (9.4-12.4) fL Immature Gran % (0-4) % Seg Neutrophils % % Lymphocytes % % Monocytes % % Eosinophils % % Basophils % % Neutrophils # (1.6-8.9) K/mcL Lymphocytes # (0.6-4.6) K/mcL Monocytes # (0.0-1.3) K/mcL Eosinophils # (0.0-0.6) K/mcL Basophils # (0.0-0.2) K/mcL D-Dimer (0-500) ng/mLFEU Sodium (136-145) mEq/L Potassium (3.5-4.5) mEq/L Chloride (98-109) mEq/L Carbon Dioxide (19-29) mEq/L BUN (8-26) mg/dL Creatinine (0.72-1.25) mg/dL Est GFR ( Amer) (> 60) Est GFR (Non-Af Amer) (> 60) BUN/Creatinine Ratio (6-26) Glucose (70-99) mg/dL Calculated Osmolality (280-300) Calcium (8.6-10.8) mg/dL Troponin I 0.03 (0-0.03) ng/mL B-Natriuretic Peptide 1055 H (0-100) pg/mL
[2017-01-28] MEDS ORDERED: Naloxone 0.4 MG/ML INJ IVP PRN (07:53)
[2017-01-28] MEDS ORDERED: Nitroglycerin 0.4 MG TAB.SUBL SL PRN (07:55)
--- NOTE | 2017-01-28 08:07 | Internal Med History&Physical ---
Date of Encounter: 01/28/17 Time of Encounter: 07:59 Assessment and Plan (1) Acute systolic congestive heart failure Current visit: Yes Status: Acute 76/male Multiple medical problems as listed below. Echocardiogram: 11/03/2016: Ejection fraction: 35-40%. Global left ventricular systolic dysfunction. No pulmonary hypertension. Cardiac catheterization: Last cardiac catheterization was in October 2016 patient underwent stent placement. He is on dual antiplatelet therapy: Aspirin. /Brillinta Patient does have AICD Patient also has a atrial fibrillation. Presently not on any anticoagulation Plan: -Admitted as an inpatient: The reason for inpatient evaluation is this patient requires intravenous diuretics and close monitoring of his electrolytes. -Intravenous Lasix 40 mg twice a day for today. -We will reassess the patient's electrolytes condition and volume status tomorrow. -If the patient is euvolemic back to his baseline dry weight then patient can be switched to oral diuretics and can be sent home. I have examined this patient in the emergency department, room #3. I have discussed at length the plan with the patient and he agrees with the same. (2) Chest pain Current visit: No Status: Acute The chest pain appears to be musculoskeletal. We will trend the troponin. if the troponins are elevated then we will consult cardiology. Qualifiers: Chest pain type: other chest pain Qualified Code(s): R07.89 - Other chest pain; R07.8 - Other chest pain (3) CAD (coronary artery disease) Current visit: No Status: Chronic Patient is known to have coronary artery disease and that may be the reason for his congestive heart failure. Patient is presently on aspirin/statin/lisinopril/beta fuentes. Qualifiers: Coronary Disease-Associated Artery/Lesion type: unspecified vessel or lesion type [place] vs. transplanted heart: [place] heart Associated angina: angina presence unspecified Qualified Code(s): I25.10 - Atherosclerotic heart disease of [place] coronary artery without angina pectoris (4) Pacemaker Current visit: No Status: Chronic Stable (5) HTN (hypertension) Current visit: No Status: Chronic Blood pressure is stable at this point and we will resume the home medication Qualifiers: Hypertension type: essential hypertension Qualified Code(s): I10 - Essential (primary) hypertension (6) DVT prophylaxis Current visit: No Status: Acute Brillinta. Medical decision making: This patient has a moderate to severe risk of persistent in spite of being on appropriate medication due to underlying complex comorbid conditions. Internal Medicine - H&P: HPI Chief complaint: Shortness of breath Admitted From: Emergency Dept Plans for Post Hospital Care: Home History of present illness: PCP: Dr Lance Cronin Electronics Technician: Dr Sharon Mckeon PMH: Hypertension, coronary artery disease, diabetes mellitus, congestive heart failure, History of present illness: This is a 76-year-old gentleman who came to emergency room for worsening shortness of breath/chest pain in the precordial area started since 2 AM last night. Patient woke up from the sleep with worsening left precordial chest pain which was radiating to his left as well as right arm associated with occasional shortness of breath to begin with but followed by worsening the shortness of breath. The chest pain was sharp in nature, nonradiating lateral part of the course and was relieved by rest. Patient was experiencing worsening shortness of breath which started with the chest pain as a initial symptom but which latter predominates the patient's goals. Patient was having air hunger and that was the reason he was concluded with his to come to emergency room for further evaluation patient denies abdominal pain, nausea, vomiting, dizziness and diarrhea. Workup in the emergency room: Patient was evaluated in the emergency room. X- ray chest was done. Basic labs were drawn. X-ray chest was suggestive of congestive changes and patient's BNP is more than 1000. Reason for admission: Acute worsening systolic congestive heart failure. At this point we do not know the precipitating factor. Etiology of congestive heart failure is likely coronary artery disease. Family history: Noncontributory Past Med Surg Social Fam HX - Past Medical History Medical history: asthma, atrial fibrillation, CHF, coronary artery disease, CVA , diabetes, hypertension, myocardial infarction, thyroid disease Psychiatric history: no psych history - Past Surgical History Surgical History: angioplasty/stent, cholecystectomy, coronary bypass (CABG), pacemaker/AICD - Social History Smoking Status: Former smoker Smokeless Tobacco Status: No Alcohol use: none Drug use: none - Family History Grandfather Family Member Ethnicity: Non- Living Status: Hx Family Cardiac Disorders: Yes ([place]) Mother Family Member Ethnicity: Non- Living Status: Hx Family Neurologic Disorders: Yes (CVA) Father Adopted: No Family Member Ethnicity: Non- Living Status: Hx Family Cardiac Disorders: No Hx Family Respiratory Disorders: No Hx Family Cancer: Yes (Unknown what type) Hx Family GI Disorders: No Hx Family Endocrine Disorder: No Hx Family Neuromuscular Disorders: No Hx Family Neurologic Disorders: No Hx Family HEENT Disorders: No Hx Family Autoimmune Disorders: No Internal Medicine - H&P: Meds Nitroglycerin [Nitrostat] 0.4 mg SL Q5M PRN 10/01/16 [History] Omeprazole [PriLOSEC] 20 mg PO BIDAC #60 11/04/16 [Rx] Ascorbate Calcium [Vitamin C] 500 mg PO DAILY 11/14/16 [History] Cyanocobalamin (Vitamin B-12) [Vitamin B12] 1,000 mcg PO DAILY 11/14/16 [History ] Multivitamin [One Daily Essential] 1 tab PO DAILY 11/14/16 [History] Aspirin Enteric Coated [Aspirin EC] 81 mg PO DAILY #30 tablet. 12/24/16 [Rx] Atorvastatin [Lipitor] 40 mg PO HS #30 tablet 12/24/16 [Rx] Carvedilol [Coreg] 3.125 mg PO BIDWM 30 Days tab 12/24/16 [Rx] Furosemide [Lasix] 40 mg PO DAILY #30 tablet 12/24/16 [Rx] Isosorbide MONOnitrate (24 HR) [Imdur] 120 mg PO DAILY #30 tab 12/24/16 [Rx] Lisinopril [Zestril] 2.5 mg PO DAILY #30 tab 12/24/16 [Rx] Tamsulosin [Flomax] 0.4 mg PO DAILY #30 capsule 12/24/16 [Rx] Ticagrelor [Brilinta] 90 mg PO BID 30 Days tab 12/24/16 [Rx] amLODIPine [Norvasc] 10 mg PO DAILY #30 tab 12/24/16 [Rx] metFORMIN [Glucophage] 500 mg PO BID #60 tablet 12/24/16 [Rx] 3 Allergy/AdvReac Type Severity Reaction Status Date / Time Oxycodone [From Percocet] Allergy Hives Verified 01/28/17 05:46 tramadol Allergy Hives Verified 01/28/17 05:46 All Systems PM: A 10-system review of systems was performed and is negative for pertinent findings except as documented above in the HPI. - Constitutional Constitutional: no chills, no fever(s), no night sweats - EENT Eyes: no change in vision, no discharge, no pain, no photophobia Ears: no ear discharge, no ear pain, no tinnitus Nose, mouth and throat: no dysphagia, no nasal discharge, no neck pain, no sore throat - Cardiovascular Cardiovascular ROS IM: chest pain, diaphoresis, dyspnea, lightheadedness, no palpitations, no syncope - Respiratory Respiratory: cough, dyspnea, no wheezing, no excessive phlegm production - Gastrointestinal Gastrointestinal: no abdominal pain, no diarrhea, no hematemesis, no hematochezia, no melena, no nausea, no vomiting - Musculoskeletal Musculoskeletal ROS IM: no numbness, no tingling - Integumentary Integumentary IM: no rash, no unusual bruising - Neurological Neurological ROS: no confusion, no convulsions, no focal weakness, no numbness, no tingling, no tremor(s) - Hematologic/Lymphatic Hematologic/Lymphatic: no easy bruising - Constitutional Vitals: Temp Pulse Resp BP Pulse Ox 97.3 F L 78 16 158/95 94 01/28/17 05:46 01/28/17 07:30 01/28/17 07:30 01/28/17 07:30 01/28/17 07:30 General appearance: Present: A&O X 3, pleasant, no acute distress, answers questions appropriately - Head Head exam: Present: atraumatic, normocephalic - Eye Eye exam: Present: PERRL, conjuntiva pink, sclera anicteric Pupils: Present: PERRL - Neck Neck exam general surgery: Present: supple, trachea midline. Absent: lymphadenopathy Additional comments: Elevated JVP - Respiratory Respiratory exam: Present: CTAB. Absent: accessory muscle use, rales, rhonchi, wheezes - Cardiovascular Cardiovascular exam: Present: RRR, +S1, +S2, +S3, systolic murmur. Absent: diastolic murmur, gallop, rubs - GI/Abdominal GI/Abdominal exam: Present: normal bowel sounds, soft, no peritoneal signs. Absent: distended, tenderness - Extremities Exam Extremities exam: Present: warm, radial pulses palpable and symmetrical. Absent : calf tenderness, cyanotic, pedal edema - Neurological Exam Neurological exam: Present: CN II-XII intact, oriented X3, no focal deficits. Absent: pronater drift, facial droop, speech deficit - Skin Skin exam: Present: dry, intact Internal Med - H&P Results - Labs CBC & Chem 7: 01/28/17 06:34 01/28/17 06:34
[2017-01-28] MEDS: Ascorbic Acid 500 MG TABLET PO SCH (09:54)
[2017-01-28] MEDS: amLODIPine 5 MG TABLET PO SCH (09:54)
[2017-01-28] MEDS: Isosorbide MONOnitrate (24 HR) 60 MG TAB.ER.24H PO SCH (09:54)
[2017-01-28] MEDS: Aspirin Enteric Coated 81 MG Tablet PO SCH (09:54)
[2017-01-28] MEDS: Cyanocobalamin (B-12) 1,000 MCG TABLET PO SCH (09:54)
[2017-01-28] MEDS: *HR* Ticagrelor 90 MG TABLET PO SCH ×2 (09:54→20:26)
[2017-01-28] MEDS: Acetaminophen 325 MG TABLET PO PRN (18:15)
--- NOTE | 2017-01-28 18:48 | Electrocardiograph Report ---
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
[2017-01-29] MEDS: Acetaminophen 325 MG TABLET PO PRN (00:09)
[2017-01-29 01:11] LABS: Basophils # 0.1 K/mcL (0.0-0.2); Basophils % 0.6 %; Eosinophils # 0.2 K/mcL (0.0-0.6); Eosinophils % 2.2 %; Hematocrit 39.7 % (37.5-50.1); Hemoglobin 12.9 g/dL (12.9-16.9); Immature Granulocytes % 0.2 % (0-4); Lymphocytes # 1.6 K/mcL (0.6-4.6); Lymphocytes % 19.1 %; Mean Corpuscular HGB Conc 32.5 g/dL (31.6-35.5); Mean Corpuscular Hemoglobin 28.7 pg (28.0-33.3); Mean Corpuscular Volume 88.2 fL (83.0-100.0); Mean Platelet Volume 10.7 fL (9.4-12.4); Monocytes # 0.7 K/mcL (0.0-1.3); Monocytes % 8.7 %; Neutrophils # 5.8 K/mcL (1.6-8.9); Platelet Count 185 K/mcL (140-400); Segmented Neutrophils % 69.2 %
[2017-01-29 01:17] LABS: INR 1.2; Prothrombin Time 13.2 Seconds (9.4-12.1)
[2017-01-29 01:19] LABS: Activated Partial Thrombo Time 29.5 Seconds (26.0-36.0)
[2017-01-29 01:27] LABS: Alanine Aminotransferase 24 Units/L (0-55); Albumin/Globulin Ratio 0.9 (1.1-2.2); Alkaline Phosphatase 75 Units/L (38-126); Aspartate Amino Transferase 21 Units/L (5-34); BUN/Creatinine Ratio 17 (6-26); Blood Urea Nitrogen 20 mg/dL (8-26); Carbon Dioxide 24 mEq/L (19-29); Chloride 107 mEq/L (98-109); Chol/HDL Ratio 5.3 (0-4.9); Cholesterol 160 mg/dL (< 200); Globulin 3.2 g/dL (2.4-3.5); Glucose 113 mg/dL (70-99); HDL Cholesterol 30 mg/dL (40-59); LDL Cholesterol,Calculated 103 mg/dL (0-99); Magnesium 1.8 mg/dL (1.6-2.6); Osmolality,Calculated 295 (280-300); Phosphorous 3.1 mg/dL (2.3-4.7); Potassium 3.3 mEq/L (3.5-4.5); Sodium 141 mEq/L (136-145); Total Protein 6.2 g/dL (6.0-8.3); Triglycerides 135 mg/dL (< 150); eGFR For African Americans > 60 (> 60); eGFR For Non-African Americans 59 (> 60)
[2017-01-29] MEDS: Ascorbic Acid 500 MG TABLET PO SCH (07:21)
[2017-01-29] MEDS: *HR* Ticagrelor 90 MG TABLET PO SCH ×2 (07:21→20:50)
[2017-01-29] MEDS: Aspirin Enteric Coated 81 MG Tablet PO SCH (07:21)
[2017-01-29] MEDS: Isosorbide MONOnitrate (24 HR) 60 MG TAB.ER.24H PO SCH (07:21)
[2017-01-29] MEDS: amLODIPine 5 MG TABLET PO SCH (07:22)
[2017-01-29] MEDS: Cyanocobalamin (B-12) 1,000 MCG TABLET PO SCH (07:22)
--- NOTE | 2017-01-29 11:11 | Internal Med Progress Note ---
Date of Encounter: 01/29/17 Time of Encounter: 11:09 - Assessment and plan (1) Congestive heart failure Current Visit: Yes Status: Chronic Qualifiers: Congestive heart failure type: combined Congestive heart failure chronicity : chronic Qualified Code(s): I50.42 - Chronic combined systolic (congestive) and diastolic (congestive) heart failure (2) Chest pain Current Visit: Yes Status: Acute Qualifiers: Chest pain type: other chest pain Qualified Code(s): R07.89 - Other chest pain; R07.8 - Other chest pain (3) IDDM (insulin dependent diabetes mellitus) Current Visit: Yes Status: Chronic (4) HTN (hypertension) Current Visit: Yes Status: Chronic Qualifiers: Hypertension type: essential hypertension Qualified Code(s): I10 - Essential (primary) hypertension (5) HLD (hyperlipidemia) Current Visit: Yes Status: Chronic Qualifiers: Hyperlipidemia type: pure hypercholesterolemia Qualified Code(s): E78.00 - Pure hypercholesterolemia, unspecified; E78.0 - Pure hypercholesterolemia - Subjective Interval history: Admitted for congestive heart failure. Started on IV Lasix and has diuresed. Continue diuresis. Potassium is low therefore will be supplemented and potassium and magnesium will be rechecked. Per history patient had Echocardiogram: 11/03/2016: Ejection fraction: 35-40%. Global left ventricular systolic dysfunction. No pulmonary hypertension. Cardiac catheterization: Last cardiac catheterization was in October 2016 patient underwent stent placement. He is on dual antiplatelet therapy: Aspirin. /Brillinta Patient does have AICD Patient also has a atrial fibrillation. Presently not on any anticoagulation due to recent GI bleed. She and her chest pain but except for 1+ other troponins are negative. I think it was due to demand ischemia. - Constitutional Vitals: Temp Pulse Resp BP Pulse Ox 97.3 F L 71 16 107/63 95 01/29/17 10:41 01/29/17 10:41 01/29/17 10:41 01/29/17 10:41 01/29/17 10:41 General appearance: Present: A&O X 3, pleasant, no acute distress, answers questions appropriately - Head Head exam: Present: atraumatic, normocephalic - Eye Eye exam: Present: PERRL, conjuntiva pink, sclera anicteric Pupils: Present: PERRL - Neck Neck exam general surgery: Present: supple, trachea midline. Absent: lymphadenopathy - Respiratory Respiratory exam: Present: CTAB, rhonchi. Absent: accessory muscle use, rales, wheezes - Cardiovascular Cardiovascular exam: Present: RRR, +S1, +S2. Absent: diastolic murmur, gallop, rubs, systolic murmur - GI/Abdominal GI/Abdominal exam: Present: normal bowel sounds, soft, no peritoneal signs. Absent: distended, tenderness - Extremities Exam Extremities exam: Present: warm, radial pulses palpable and symmetrical. Absent : calf tenderness, cyanotic, pedal edema - Neurological Exam Neurological exam: Present: CN II-XII intact, oriented X3, no focal deficits. Absent: pronater drift, facial droop, speech deficit - Skin Skin exam: Present: dry, intact Internal Medicine: Result - Labs CBC & Chem 7: 01/29/17 00:53 01/29/17 00:53 Labs: Short CBC 01/29/17 Range/Units 00:53 WBC 8.3 (4.3-11.1) K/mcL Hgb 12.9 D (12.9-16.9) g/dL Hct 39.7 (37.5-50.1) % Plt Count 185 (140-400) K/mcL Neutrophils # 5.8 (1.6-8.9) K/mcL BMP 01/29/17 00:53 Sodium 141 Potassium 3.3 L Chloride 107 Carbon Dioxide 24 BUN 20 Creatinine 1.20 Glucose 113 H Calcium 9.0 Cardiac Enzymes 01/28/17 01/28/17 01/29/17 Range/Units 13:13 18:39 00:53 Troponin I 0.03 0.04 H* 0.03 (0-0.03) ng/mL 01/29/17 Range/Units 06:37 Troponin I 0.03 (0-0.03) ng/mL Liver Function 01/29/17 Range/Units 00:53 Total Bilirubin 1.0 (0.2-1.2) mg/dL AST 21 (5-34) Units/L ALT 24 (0-55) Units/L Alkaline Phosphatase 75 (38-126) Units/L Albumin 3.0 L (3.5-5.0) g/dL - ABG Interpretation ABG results: PT/INR, D-dimer PT 13.2 Seconds (9.4-12.1) H 01/29/17 00:53 D-Dimer 675 ng/mLFEU (0-500) H 01/28/17 06:34 Consult Discharge Plan - Plan Referrals: Lance Cronin MD [Primary Care Provider] -
[2017-01-30] MEDS: Acetaminophen 325 MG TABLET PO PRN ×2 (01:11→10:03)
[2017-01-30] MEDS ORDERED: Ibuprofen 400 MG TABLET PO ONE (04:19)
[2017-01-30 04:45] LABS: Alanine Aminotransferase 18 Units/L (0-55); Alkaline Phosphatase 76 Units/L (38-126); Aspartate Amino Transferase 17 Units/L (5-34); BUN/Creatinine Ratio 20 (6-26); Bilirubin,Total 0.7 mg/dL (0.2-1.2); Blood Urea Nitrogen 20 mg/dL (8-26); Calcium 9.3 mg/dL (8.6-10.8); Carbon Dioxide 24 mEq/L (19-29); Chloride 110 mEq/L (98-109); Globulin 3.1 g/dL (2.4-3.5); Glucose 112 mg/dL (70-99); Magnesium 1.9 mg/dL (1.6-2.6); Osmolality,Calculated 295 (280-300); Sodium 141 mEq/L (136-145); Total Protein 6.1 g/dL (6.0-8.3); eGFR For African Americans > 60 (> 60); eGFR For Non-African Americans > 60 (> 60)
[2017-01-30] MEDS: Isosorbide MONOnitrate (24 HR) 60 MG TAB.ER.24H PO SCH (07:09)
[2017-01-30] MEDS: *HR* Ticagrelor 90 MG TABLET PO SCH ×2 (07:09→20:04)
[2017-01-30] MEDS: Aspirin Enteric Coated 81 MG Tablet PO SCH (07:09)
[2017-01-30] MEDS: amLODIPine 5 MG TABLET PO SCH (07:09)
[2017-01-30] MEDS: Ascorbic Acid 500 MG TABLET PO SCH (07:09)
[2017-01-30] MEDS: Cyanocobalamin (B-12) 1,000 MCG TABLET PO SCH (07:10)
--- NOTE | 2017-01-30 16:41 | Internal Med Progress Note ---
Date of Encounter: 01/30/17 Time of Encounter: 16:41 - Assessment and plan (1) Congestive heart failure Current Visit: Yes Status: Chronic Qualifiers: Congestive heart failure type: combined Congestive heart failure chronicity : chronic Qualified Code(s): I50.42 - Chronic combined systolic (congestive) and diastolic (congestive) heart failure (2) Chest pain Current Visit: Yes Status: Acute Qualifiers: Chest pain type: other chest pain Qualified Code(s): R07.89 - Other chest pain; R07.8 - Other chest pain (3) IDDM (insulin dependent diabetes mellitus) Current Visit: Yes Status: Chronic (4) HTN (hypertension) Current Visit: Yes Status: Chronic Qualifiers: Hypertension type: essential hypertension Qualified Code(s): I10 - Essential (primary) hypertension (5) HLD (hyperlipidemia) Current Visit: Yes Status: Chronic Qualifiers: Hyperlipidemia type: pure hypercholesterolemia Qualified Code(s): E78.00 - Pure hypercholesterolemia, unspecified; E78.0 - Pure hypercholesterolemia - Subjective Interval history: Admitted for congestive heart failure. Started on IV Lasix and has diuresed. Continue diuresis. Potassium is low therefore will be supplemented and potassium and magnesium will be rechecked. Per history patient had Echocardiogram: 11/03/2016: Ejection fraction: 35-40%. Global left ventricular systolic dysfunction. No pulmonary hypertension. Cardiac catheterization: Last cardiac catheterization was in October 2016 patient underwent stent placement. He is on dual antiplatelet therapy: Aspirin. /Brillinta Patient does have AICD Patient also has a atrial fibrillation. Presently not on any anticoagulation due to recent GI bleed. She and her chest pain but except for 1+ other troponins are negative. I think it was due to demand ischemia. - Constitutional Vitals: Temp Pulse Resp BP Pulse Ox 97.7 F 68 16 118/70 95 01/30/17 15:29 01/30/17 15:29 01/30/17 15:29 01/30/17 15:29 01/30/17 15:29 General appearance: Present: A&O X 3, pleasant, no acute distress, answers questions appropriately - Head Head exam: Present: atraumatic, normocephalic - Eye Eye exam: Present: PERRL, conjuntiva pink, sclera anicteric Pupils: Present: PERRL - Neck Neck exam general surgery: Present: supple, trachea midline. Absent: lymphadenopathy - Respiratory Respiratory exam: Present: CTAB. Absent: accessory muscle use, rales, rhonchi, wheezes - Cardiovascular Cardiovascular exam: Present: RRR, +S1, +S2. Absent: diastolic murmur, gallop, rubs, systolic murmur - GI/Abdominal GI/Abdominal exam: Present: normal bowel sounds, soft, no peritoneal signs. Absent: distended, tenderness - Extremities Exam Extremities exam: Present: warm, radial pulses palpable and symmetrical. Absent : calf tenderness, cyanotic, pedal edema - Neurological Exam Neurological exam: Present: CN II-XII intact, oriented X3, no focal deficits. Absent: pronater drift, facial droop, speech deficit - Skin Skin exam: Present: dry, intact Internal Medicine: Result - Labs CBC & Chem 7: 01/29/17 00:53 01/30/17 03:10 Labs: BMP 01/30/17 03:10 Sodium 141 Potassium 4.0 Chloride 110 H Carbon Dioxide 24 BUN 20 Creatinine 1.02 Glucose 112 H Calcium 9.3 Liver Function 01/30/17 Range/Units 03:10 Total Bilirubin 0.7 (0.2-1.2) mg/dL AST 17 (5-34) Units/L ALT 18 (0-55) Units/L Alkaline Phosphatase 76 (38-126) Units/L Albumin 3.0 L (3.5-5.0) g/dL - ABG Interpretation ABG results: PT/INR, D-dimer PT 13.2 Seconds (9.4-12.1) H 01/29/17 00:53 D-Dimer 675 ng/mLFEU (0-500) H 01/28/17 06:34 Consult Discharge Plan - Plan Referrals: Lance Cronin MD [Primary Care Provider] - (web request 01/29/2017)
--- NOTE | 2017-01-30 17:46 | Electrocardiograph Report ---
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
[2017-01-31] MEDS: Acetaminophen 325 MG TABLET PO PRN ×2 (00:32→10:29)
[2017-01-31 03:43] LABS: Alanine Aminotransferase 20 Units/L (0-55); Albumin 2.9 g/dL (3.5-5.0); Albumin/Globulin Ratio 0.9 (1.1-2.2); Alkaline Phosphatase 71 Units/L (38-126); Aspartate Amino Transferase 17 Units/L (5-34); BUN/Creatinine Ratio 19 (6-26); Bilirubin,Total 0.6 mg/dL (0.2-1.2); Blood Urea Nitrogen 17 mg/dL (8-26); Carbon Dioxide 22 mEq/L (19-29); Chloride 109 mEq/L (98-109); Globulin 3.2 g/dL (2.4-3.5); Glucose 118 mg/dL (70-99); Magnesium 1.6 mg/dL (1.6-2.6); Osmolality,Calculated 295 (280-300); Potassium 3.9 mEq/L (3.5-4.5); Sodium 141 mEq/L (136-145); Total Protein 6.1 g/dL (6.0-8.3); eGFR For African Americans > 60 (> 60); eGFR For Non-African Americans > 60 (> 60)
[2017-01-31] MEDS: Isosorbide MONOnitrate (24 HR) 60 MG TAB.ER.24H PO SCH (07:13)
[2017-01-31] MEDS: *HR* Ticagrelor 90 MG TABLET PO SCH (07:13)
[2017-01-31] MEDS: Ascorbic Acid 500 MG TABLET PO SCH (07:13)
[2017-01-31] MEDS: Cyanocobalamin (B-12) 1,000 MCG TABLET PO SCH (07:13)
[2017-01-31] MEDS: amLODIPine 5 MG TABLET PO SCH (07:13)
[2017-01-31] MEDS: Aspirin Enteric Coated 81 MG Tablet PO SCH (07:14)
--- NOTE | 2017-01-31 08:27 | Discharge Summary ---
Date of Encounter: 01/31/17 Time of Encounter: 08:24 - Discharge Diagnosis (1) Congestive heart failure Priority: Primary Status: Chronic Qualifiers: Congestive heart failure type: combined Congestive heart failure chronicity : chronic Qualified Code(s): I50.42 - Chronic combined systolic (congestive) and diastolic (congestive) heart failure (2) Chest pain Priority: Secondary Status: Acute Qualifiers: Chest pain type: other chest pain Qualified Code(s): R07.89 - Other chest pain; R07.8 - Other chest pain (3) IDDM (insulin dependent diabetes mellitus) Priority: Secondary Status: Chronic (4) HTN (hypertension) Priority: Secondary Status: Chronic Qualifiers: Hypertension type: essential hypertension Qualified Code(s): I10 - Essential (primary) hypertension (5) HLD (hyperlipidemia) Priority: Secondary Status: Chronic Qualifiers: Hyperlipidemia type: pure hypercholesterolemia Qualified Code(s): E78.00 - Pure hypercholesterolemia, unspecified; E78.0 - Pure hypercholesterolemia - Discharge Medications Home Medications: Nitroglycerin [Nitrostat] 0.4 mg SL Q5M PRN 10/01/16 [History] Omeprazole [PriLOSEC] 20 mg PO BIDAC #60 11/04/16 [Rx] Ascorbate Calcium [Vitamin C] 500 mg PO DAILY 11/14/16 [History] Cyanocobalamin (Vitamin B-12) [Vitamin B12] 1,000 mcg PO DAILY 11/14/16 [History ] Multivitamin [One Daily Essential] 1 tab PO DAILY 11/14/16 [History] Aspirin Enteric Coated [Aspirin EC] 81 mg PO DAILY #30 tablet. 12/24/16 [Rx] Atorvastatin [Lipitor] 40 mg PO HS #30 tablet 12/24/16 [Rx] Carvedilol [Coreg] 3.125 mg PO BIDWM 30 Days tab 12/24/16 [Rx] Furosemide [Lasix] 40 mg PO DAILY #30 tablet 12/24/16 [Rx] Isosorbide MONOnitrate (24 HR) [Imdur] 120 mg PO DAILY #30 tab 12/24/16 [Rx] Lisinopril [Zestril] 2.5 mg PO DAILY #30 tab 12/24/16 [Rx] Tamsulosin [Flomax] 0.4 mg PO DAILY #30 capsule 12/24/16 [Rx] Ticagrelor [Brilinta] 90 mg PO BID 30 Days tab 12/24/16 [Rx] amLODIPine [Norvasc] 10 mg PO DAILY #30 tab 12/24/16 [Rx] metFORMIN [Glucophage] 500 mg PO BID #60 tablet 12/24/16 [Rx] Allergies/Adverse Reactions: 3 Allergy/AdvReac Type Severity Reaction Status Date / Time Oxycodone [From Percocet] Allergy Hives Verified 01/28/17 05:46 tramadol Allergy Hives Verified 01/28/17 05:46 Procedures/tests Complete & Pending: Procedures Performed prior 72 hours Category Date Time Status ECG 12 lead ECG [ECG] Routine Y 01/28/17 20:19 Completed Date of admission: 01/28/17 07:56 Primary care physician: Lance Cronin MD Discharging clinician: Darell Mccann Anticipated date of discharge: 01/31/17 - Patient Status Disposition: Home, Self-Care Condition: Good Functional capacity at discharge: independent ambulation Overall status at discharge: patient is progressing back to baseline - Discharge Instructions Follow Up With: Lance Cronin MD [Primary Care Provider] - 02/03/17 2:15 pm (web request 2016) - Diet and Activity Activity: resume usual activities as tolerated Diet: advance to your usual diet Hospital course: Mr. Pizarro is a 76 year old male Admitted for congestive heart failure. Started on IV Lasix and has diuresed 3500 mL. Potassium and magnesium serum supplemented and that corrected now. Patient is breathing very well and seems to be close to his baseline. Apparently he is quite noncompliant with his medical treatment and we addressed this issue during this visit again and provided him counseling. He should follow with his family doctor and emergency management specialist. His troponin were mildly elevated during this admission probably secondary to demand ischemia due to CHF. Previous history reflects that Per history patient had Echocardiogram: 11/03/2016: Ejection fraction: 35-40%. Global left ventricular systolic dysfunction. No pulmonary hypertension. Cardiac catheterization: Last cardiac catheterization was in October 2016 patient underwent stent placement. He is on dual antiplatelet therapy: Aspirin. /Brillinta Patient does have AICD Patient also has a atrial fibrillation. Presently not on any anticoagulation due to recent GI bleed. Initially had chest pain but except for 1+ other troponins are negative. I think it was due to demand ischemia. Patient had chest pain again but his EKG and his troponins are negative. He wants to go home is already on Imdur and Nitrostat. Considering his blood pressure we cannot increase those medicines anymore. I asked him to follow with his emergency management specialist I feel like we can consult him here however patient does not want to stay he wants to leave. He is advised to return in case chest pain recur. - Time Spent with Patient Total time spent providing and/or coordinating discharge services: Greater than 30 minutes - Constitutional Vitals: Temp Pulse Resp BP Pulse Ox 97.7 F 70 17 147/88 97 01/31/17 06:49 01/31/17 06:49 01/31/17 06:49 01/31/17 06:49 01/31/17 06:49 General appearance: Present: A&O X 3, pleasant, no acute distress, answers questions appropriately - Head Head exam: Present: atraumatic, normocephalic - Eye Eye exam: Present: PERRL, conjuntiva pink, sclera anicteric Pupils: Present: PERRL - Neck Neck exam general surgery: Present: supple, trachea midline. Absent: lymphadenopathy - Respiratory Respiratory exam: Present: CTAB. Absent: accessory muscle use, rales, rhonchi, wheezes - Cardiovascular Cardiovascular exam: Present: RRR, +S1, +S2. Absent: diastolic murmur, gallop, rubs, systolic murmur - GI/Abdominal GI/Abdominal exam: Present: normal bowel sounds, soft, no peritoneal signs. Absent: distended, tenderness - Extremities Exam Extremities exam: Present: warm, radial pulses palpable and symmetrical. Absent : calf tenderness, cyanotic, pedal edema - Neurological Exam Neurological exam: Present: CN II-XII intact, oriented X3, no focal deficits. Absent: pronater drift, facial droop, speech deficit - Skin Skin exam: Present: dry, intact
[2017-01-31 11:29] VITALS: BP 116/70
--- NOTE | 2017-01-31 15:16 | Electrocardiograph Report ---
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
== END 2017-01-31 15:30 | disposition home or self-care (01) | DRG 292 ==
LOC: EMEROO 05:45 → 2ANU 05:45
PROVIDERS: ADMIT Internal Medicine; ATTEND Internal Medicine

== ENCOUNTER 2017-03-02 20:52 | Inpatient (IN) ==
--- NOTE | 2017-03-02 20:54 | Emergency Department Note ---
Disposition Clinical Impression: CHF exacerbation Disposition: Admitted As Inpatient Condition: Fair General Adult HPI - General Chief complaint: ED Shortness of Breath/Dyspnea Stated complaint: MAYELIN Time Seen by Provider: 03/02/17 20:53 - Related Data Home Medications Medication Instructions Recorded Confirmed Nitroglycerin [Nitrostat] 0.4 mg SL Q5M PRN 10/01/16 01/28/17 Ascorbate Calcium [Vitamin C] 500 mg PO DAILY 11/14/16 01/28/17 Cyanocobalamin (Vitamin B-12) 1,000 mcg PO DAILY 11/14/16 01/28/17 [Vitamin B12] Multivitamin [One Daily Essential] 1 tab PO DAILY 11/14/16 01/28/17 Previous Rx's Medication Instructions Recorded Omeprazole [PriLOSEC] 20 mg PO BIDAC #60 11/04/16 Aspirin Enteric Coated [Aspirin EC] 81 mg PO DAILY #30 tablet. 12/24/16 Atorvastatin [Lipitor] 40 mg PO HS #30 tablet 12/24/16 Carvedilol [Coreg] 3.125 mg PO BIDWM 30 Days tab 12/24/16 Furosemide [Lasix] 40 mg PO DAILY #30 tablet 12/24/16 Isosorbide MONOnitrate (24 HR) 120 mg PO DAILY #30 tab 12/24/16 [Imdur] Lisinopril [Zestril] 2.5 mg PO DAILY #30 tab 12/24/16 Tamsulosin [Flomax] 0.4 mg PO DAILY #30 capsule 12/24/16 Ticagrelor [Brilinta] 90 mg PO BID 30 Days tab 12/24/16 amLODIPine [Norvasc] 10 mg PO DAILY #30 tab 12/24/16 metFORMIN [Glucophage] 500 mg PO BID #60 tablet 12/24/16 Allergies Allergy/AdvReac Type Severity Reaction Status Date / Time Oxycodone [From Percocet] Allergy Hives Verified 01/28/17 05:46 tramadol Allergy Hives Verified 01/28/17 05:46 Past Medical History - Past Medical History Medical history: Reports: asthma, atrial fibrillation, CHF, coronary artery disease, CVA, diabetes, hypertension, myocardial infarction, thyroid disease Surgical history: Reports: angioplasty/stent, cholecystectomy, coronary bypass ( CABG), pacemaker/AICD Psychiatric history: Reports: no psych history - Social History Smoking Status: Former smoker Smokeless Tobacco Status: No Alcohol use: Reports: none Drug use: Reports: none Course Vital Signs Temperature 98.6 F 03/02/17 20:54 Pulse Rate 80 03/02/17 20:54 Respiratory Rate 24 03/02/17 20:54 Blood Pressure 171/100 03/02/17 20:54 O2 Sat by Pulse Oximetry 96 03/02/17 20:54 Temperature 97.9 F 03/02/17 23:13 Pulse Rate 78 03/02/17 23:13 Respiratory Rate 16 03/02/17 23:13 Blood Pressure 161/91 03/02/17 23:13 O2 Sat by Pulse Oximetry 94 03/02/17 23:13 Oxygen Delivery Oxygen Delivery Room Air Medical Decision Making - Lab Data Result diagrams: 03/02/17 21:24 03/02/17 21:24 Lab Results 03/02/17 03/02/17 03/02/17 Range/Units 21:24 21:24 21:24 WBC 9.7 (4.3-11.1) K/mcL RBC 4.76 (4.19-5.50) M/mcL Hgb 13.3 (12.9-16.9) g/dL Hct 41.2 (37.5-50.1) % MCV 86.6 (83.0-100.0) fL MCH 27.9 L (28.0-33.3) pg MCHC 32.3 (31.6-35.5) g/dL RDW 14.5 (11.5-14.5) % Plt Count 205 (140-400) K/mcL MPV 10.7 (9.4-12.4) fL Immature Gran % 0.3 (0-4) % Seg Neutrophils % 69.8 % Lymphocytes % 17.5 % Monocytes % 8.5 % Eosinophils % 3.2 % Basophils % 0.7 % Neutrophils # 6.8 (1.6-8.9) K/mcL Lymphocytes # 1.7 (0.6-4.6) K/mcL Monocytes # 0.8 (0.0-1.3) K/mcL Eosinophils # 0.3 (0.0-0.6) K/mcL Basophils # 0.1 (0.0-0.2) K/mcL Sodium 141 (136-145) mEq/L Potassium 4.3 (3.5-4.5) mEq/L Chloride 109 (98-109) mEq/L Carbon Dioxide 22 (19-29) mEq/L BUN 25 (8-26) mg/dL Creatinine 1.05 (0.72-1.25) mg/dL Est GFR ( Amer) > 60 (> 60) Est GFR (Non-Af Amer) > 60 (> 60) BUN/Creatinine Ratio 24 (6-26) Glucose 123 H (70-99) mg/dL Calculated Osmolality 298 (280-300) Calcium 9.3 (8.6-10.8) mg/dL Troponin I 0.03 (0-0.03) ng/mL B-Natriuretic Peptide (0-100) pg/mL 03/02/17 Range/Units 21:24 WBC (4.3-11.1) K/mcL RBC (4.19-5.50) M/mcL Hgb (12.9-16.9) g/dL Hct (37.5-50.1) % MCV (83.0-100.0) fL MCH (28.0-33.3) pg MCHC (31.6-35.5) g/dL RDW (11.5-14.5) % Plt Count (140-400) K/mcL MPV (9.4-12.4) fL Immature Gran % (0-4) % Seg Neutrophils % % Lymphocytes % % Monocytes % % Eosinophils % % Basophils % % Neutrophils # (1.6-8.9) K/mcL Lymphocytes # (0.6-4.6) K/mcL Monocytes # (0.0-1.3) K/mcL Eosinophils # (0.0-0.6) K/mcL Basophils # (0.0-0.2) K/mcL Sodium (136-145) mEq/L Potassium (3.5-4.5) mEq/L Chloride (98-109) mEq/L Carbon Dioxide (19-29) mEq/L BUN (8-26) mg/dL Creatinine (0.72-1.25) mg/dL Est GFR ( Amer) (> 60) Est GFR (Non-Af Amer) (> 60) BUN/Creatinine Ratio (6-26) Glucose (70-99) mg/dL Calculated Osmolality (280-300) Calcium (8.6-10.8) mg/dL Troponin I (0-0.03) ng/mL B-Natriuretic Peptide 1238 H (0-100) pg/mL Attestation Statement - Attestation Attestation: I examined this patient and my medical decision-making was reviewed with the Resident Physician. I agree with the documented findings, disposition and treatment plan as described except to the extent set forth below. [id number] time provided Patient arrives by EMS. c/o cough, dyspnea x hrs. Appears in NAD on exam.
--- NOTE | 2017-03-02 21:11 | Emergency Department Note ---
Disposition Clinical Impression: CHF exacerbation Qualifiers: Congestive heart failure type: unspecified congestive heart failure type Qualified Code(s): I50.9 - Heart failure, unspecified Disposition: Admitted As Inpatient Condition: Fair Referrals: Lance Cronin MD [Primary Care Provider] - Forms: ED Satisfaction Letter Time of Disposition: 22:26 SOB HPI - General Chief Complaint: ED Shortness of Breath/Dyspnea Stated Complaint: MAYELIN Time Seen by Provider: 03/02/17 20:53 Source: EMS Mode of arrival: ambulatory Limitations: no limitations Nursing Notes Reviewed: Yes Vital Signs Reviewed: Yes - History of Present Illness 76-year-old male presents to the emergency department complaining of shortness of breath and chest pain. He says the chest pain is right in his sternum going up and down itching going on for 3 days. Patient does have cardiac history of having multiple stents. He also has a pacemaker. Patient said that this pain has worsened which is what caused him to come in. Patient state he is short of breath and her heart and breath is not normally on oxygen. Patient states he believes he has a history of COPD. He has breathing treatments and inhalers at home. Patient says the chest pain is 4 out of 10 he has had no nausea or vomiting. Says it is a dull ache. He has had no radiation of the pain. Patient is not complaining of any headache, blurry vision, neck pain, back pain , change in bowel movements, pain with urination, abdominal pain, fevers or any other symptoms. - Related Data Home Medications Medication Instructions Recorded Confirmed Nitroglycerin [Nitrostat] 0.4 mg SL Q5M PRN 10/01/16 01/28/17 Ascorbate Calcium [Vitamin C] 500 mg PO DAILY 11/14/16 01/28/17 Cyanocobalamin (Vitamin B-12) 1,000 mcg PO DAILY 11/14/16 01/28/17 [Vitamin B12] Multivitamin [One Daily Essential] 1 tab PO DAILY 11/14/16 01/28/17 Previous Rx's Medication Instructions Recorded Omeprazole [PriLOSEC] 20 mg PO BIDAC #60 11/04/16 Aspirin Enteric Coated [Aspirin EC] 81 mg PO DAILY #30 tablet. 12/24/16 Atorvastatin [Lipitor] 40 mg PO HS #30 tablet 12/24/16 Carvedilol [Coreg] 3.125 mg PO BIDWM 30 Days tab 12/24/16 Furosemide [Lasix] 40 mg PO DAILY #30 tablet 12/24/16 Isosorbide MONOnitrate (24 HR) 120 mg PO DAILY #30 tab 12/24/16 [Imdur] Lisinopril [Zestril] 2.5 mg PO DAILY #30 tab 12/24/16 Tamsulosin [Flomax] 0.4 mg PO DAILY #30 capsule 12/24/16 Ticagrelor [Brilinta] 90 mg PO BID 30 Days tab 12/24/16 amLODIPine [Norvasc] 10 mg PO DAILY #30 tab 12/24/16 metFORMIN [Glucophage] 500 mg PO BID #60 tablet 12/24/16 Allergies Allergy/AdvReac Type Severity Reaction Status Date / Time Oxycodone [From Percocet] Allergy Hives Verified 01/28/17 05:46 tramadol Allergy Hives Verified 01/28/17 05:46 Review of Systems: 10 point review of systems done and negative unless otherwise stated in history of present illness. All systems ED: reviewed and negative except as stated. Review of Systems: As Per HPI Past Medical History - Past Medical History Attestation: Yes The following information was validated with the patient. Medical history: Reports: asthma, atrial fibrillation, CHF, coronary artery disease, CVA, diabetes, hypertension, myocardial infarction, thyroid disease Surgical history: Reports: angioplasty/stent, cholecystectomy, coronary bypass ( CABG), pacemaker/AICD Psychiatric history: Reports: no psych history - Social History Smoking Status: Former smoker Smokeless Tobacco Status: No Alcohol use: Reports: none Drug use: Reports: none Physical Exam - General Limitations: no limitations General appearance: alert - Head Head exam: atraumatic, normocephalic, normal inspection - Eye Eye exam: Present: normal appearance, PERRL, EOMI - ENT ENT exam: normal exam, normal oropharynx, mucous membranes moist - Neck Neck exam: Present: normal inspection, full ROM, trachea midline - Chest Chest inspection: Present: normal inspection, symmetric chest wall rise - Respiratory Respiratory exam: Absent: respiratory distress, wheezes, accessory muscle use - Expanded Respiratory Exam Location: rhonchi: Right, Lower (Very mild) - Cardiovascular Cardiovascular exam: Present: regular rate, normal rhythm, normal heart sounds - Abdominal Exam Abdominal exam: Present: soft, Non-Tender. Absent: tenderness, distention, guarding, rebound, rigidity - Extremities Exam Extremities exam: Present: normal inspection, full ROM. Absent: tenderness, pedal edema - Expanded Lower Extremity Exam Neurovascular/Tendon exam: Present: normal capillary refill. Absent: pulse deficit, motor deficit, sensory deficit, tendon deficit - Back Exam Back exam: Present: normal inspection, full ROM. Absent: tenderness, CVA tenderness (R), CVA tenderness (L) - Neurological Exam Neurological exam: Present: alert, oriented X3 - Skin Skin exam: Present: warm, dry, intact, normal color Course Course Narrative: 76-year-old male presents to the emergency department complaining of chest pain and shortness of breath. Will get CBC, BMP, troponin as well as 2 view chest x- ray. Patient already has an IV. Patient's okay with this plan. Vital Signs Temperature 98.6 F 03/02/17 20:54 Pulse Rate 80 03/02/17 20:54 Respiratory Rate 24 03/02/17 20:54 Blood Pressure 171/100 03/02/17 20:54 O2 Sat by Pulse Oximetry 96 03/02/17 20:54 Temperature 98.6 F 03/02/17 20:54 Pulse Rate 75 03/02/17 21:51 Respiratory Rate 16 03/02/17 21:51 Blood Pressure 161/91 03/02/17 21:51 O2 Sat by Pulse Oximetry 97 03/02/17 21:51 Oxygen Delivery Oxygen Delivery Nasal Cannula Shortness of Breath/Dyspnea - [facility] Narrative Medical decision making narrative: 76-year-old male presented to the emergency department complaining of chest pain shortness of breath. Patient does have a cardiac history. He said this is linear that is normal chest pain that he has. We did get chest x-ray which showed bilateral pleural effusions. He had a normal troponin he did an elevated BNP of 1400 and his normal is around 500. At this time patient was likely a CHF exacerbation. There is no other lab abnormalities. Patient was given 40 mg Lasix IV. To get rid of his excess fluid. Patient okay with this plan. Spoke with the hospitalist Dr. Fish who agreed to admit the patient to their service for further evaluation. Patient is admitted in stable condition. Chest X-Ray 03/02/17 21:01 IMPRESSION: Small to moderate bilateral pleural effusions. Bibasilar airspace disease most likely due to atelectasis, edema or a combination. Pneumonia is less likely. D/ / Johnie Simms MD / Johnie Simms MD Interpreting Provider: Johnie Simms MD - Medical Records Medical records reviewed: Yes I reviewed the patient's medical records. - Lab Data Lab results reviewed: Yes I reviewed the patient's lab results. Result diagrams: 03/02/17 21:24 03/02/17 21:24 Lab Results 03/02/17 03/02/17 03/02/17 Range/Units 21:24 21:24 21:24 WBC 9.7 (4.3-11.1) K/mcL RBC 4.76 (4.19-5.50) M/mcL Hgb 13.3 (12.9-16.9) g/dL Hct 41.2 (37.5-50.1) % MCV 86.6 (83.0-100.0) fL MCH 27.9 L (28.0-33.3) pg MCHC 32.3 (31.6-35.5) g/dL RDW 14.5 (11.5-14.5) % Plt Count 205 (140-400) K/mcL MPV 10.7 (9.4-12.4) fL Immature Gran % 0.3 (0-4) % Seg Neutrophils % 69.8 % Lymphocytes % 17.5 % Monocytes % 8.5 % Eosinophils % 3.2 % Basophils % 0.7 % Neutrophils # 6.8 (1.6-8.9) K/mcL Lymphocytes # 1.7 (0.6-4.6) K/mcL Monocytes # 0.8 (0.0-1.3) K/mcL Eosinophils # 0.3 (0.0-0.6) K/mcL Basophils # 0.1 (0.0-0.2) K/mcL Sodium 141 (136-145) mEq/L Potassium 4.3 (3.5-4.5) mEq/L Chloride 109 (98-109) mEq/L Carbon Dioxide 22 (19-29) mEq/L BUN 25 (8-26) mg/dL Creatinine 1.05 (0.72-1.25) mg/dL Est GFR ( Amer) > 60 (> 60) Est GFR (Non-Af Amer) > 60 (> 60) BUN/Creatinine Ratio 24 (6-26) Glucose 123 H (70-99) mg/dL Calculated Osmolality 298 (280-300) Calcium 9.3 (8.6-10.8) mg/dL Troponin I 0.03 (0-0.03) ng/mL B-Natriuretic Peptide (0-100) pg/mL 03/02/17 Range/Units 21:24 WBC (4.3-11.1) K/mcL RBC (4.19-5.50) M/mcL Hgb (12.9-16.9) g/dL Hct (37.5-50.1) % MCV (83.0-100.0) fL MCH (28.0-33.3) pg MCHC (31.6-35.5) g/dL RDW (11.5-14.5) % Plt Count (140-400) K/mcL MPV (9.4-12.4) fL Immature Gran % (0-4) % Seg Neutrophils % % Lymphocytes % % Monocytes % % Eosinophils % % Basophils % % Neutrophils # (1.6-8.9) K/mcL Lymphocytes # (0.6-4.6) K/mcL Monocytes # (0.0-1.3) K/mcL Eosinophils # (0.0-0.6) K/mcL Basophils # (0.0-0.2) K/mcL Sodium (136-145) mEq/L Potassium (3.5-4.5) mEq/L Chloride (98-109) mEq/L Carbon Dioxide (19-29) mEq/L BUN (8-26) mg/dL Creatinine (0.72-1.25) mg/dL Est GFR ( Amer) (> 60) Est GFR (Non-Af Amer) (> 60) BUN/Creatinine Ratio (6-26) Glucose (70-99) mg/dL Calculated Osmolality (280-300) Calcium (8.6-10.8) mg/dL Troponin I (0-0.03) ng/mL B-Natriuretic Peptide 1238 H (0-100) pg/mL - Radiology Data Radiology results reviewed: Yes I reviewed the patient's radiology results. - EKG Data EKG attestation: Yes I reviewed and interpreted this EKG. EKG results narrative: EKG done at 2128 review by myself and the attending shows ventricularly paced rhythm at a rate of 68, UT interval 102, QRS 201, QTc [address] elevation meeting Vickey's criteria, no signs of abnormal T waves, no signs of temperature heart strain, no signs of any heart blocks, no signs of the BP W/ Brugada syndrome. This was compared and unchanged based on old EKG done .
[2017-03-02 21:30] LABS: Basophils # 0.1 K/mcL (0.0-0.2); Basophils % 0.7 %; Eosinophils # 0.3 K/mcL (0.0-0.6); Eosinophils % 3.2 %; Hematocrit 41.2 % (37.5-50.1); Hemoglobin 13.3 g/dL (12.9-16.9); Immature Granulocytes % 0.3 % (0-4); Lymphocytes # 1.7 K/mcL (0.6-4.6); Lymphocytes % 17.5 %; Mean Corpuscular HGB Conc 32.3 g/dL (31.6-35.5); Mean Corpuscular Hemoglobin 27.9 pg (28.0-33.3); Mean Corpuscular Volume 86.6 fL (83.0-100.0); Mean Platelet Volume 10.7 fL (9.4-12.4); Monocytes # 0.8 K/mcL (0.0-1.3); Monocytes % 8.5 %; Neutrophils # 6.8 K/mcL (1.6-8.9); Platelet Count 205 K/mcL (140-400); Red Blood Count 4.76 M/mcL (4.19-5.50); Red Cell Distribution Width 14.5 % (11.5-14.5); Segmented Neutrophils % 69.8 %
[2017-03-02 21:41] LABS: BUN/Creatinine Ratio 24 (6-26); Blood Urea Nitrogen 25 mg/dL (8-26); Calcium 9.3 mg/dL (8.6-10.8); Carbon Dioxide 22 mEq/L (19-29); Chloride 109 mEq/L (98-109); Glucose 123 mg/dL (70-99); Osmolality,Calculated 298 (280-300); Potassium 4.3 mEq/L (3.5-4.5); Sodium 141 mEq/L (136-145); eGFR For African Americans > 60 (> 60); eGFR For Non-African Americans > 60 (> 60)
[2017-03-02] MEDS ORDERED: Furosemide 40 MG/4 ML VIAL IVP ONE (22:06)
[2017-03-02] MEDS ORDERED: Naloxone 0.4 MG/ML INJ IVP PRN (23:29)
[2017-03-02] MEDS ORDERED: Ondansetron 4 MG/2 ML VIAL IVP PRN (23:29)
[2017-03-02] MEDS ORDERED: MOM Conc 10 ML UD.LIQ PO PRN (23:29)
[2017-03-02] MEDS ORDERED: Acetaminophen 325 MG TABLET PO PRN (23:29)
[2017-03-02] MEDS ORDERED: Ipratropium/Albuterol Neb 3 ML IH PRN (23:34)
--- NOTE | 2017-03-03 00:15 | Internal Med History&Physical ---
Date of Encounter: 03/02/17 Time of Encounter: 22:45 Assessment and Plan (1) Chest pain Current visit: No Status: Acute Will admit the pt into Tele His CP seems to be more likely dut to CHF exacerbation No acute ischemic changes noticed on EKG..Paced rythm So far trop @ 0.03 will trend on Trop cont ASA, Brillinta, Coreg, ACEI, Imdur Qualifiers: Chest pain type: other chest pain Qualified Code(s): R07.89 - Other chest pain; R07.8 - Other chest pain (2) Acute on chronic systolic (congestive) heart failure Current visit: No Status: Acute Reviewed his 2 D Echo from 11/04 showed LVEF 35-40% started him on Lasix 40mg BID strict I & O Resumed home meds ASA, Brilinta, ACEI, Coreg, and statin held Norvasc (3) CAD (coronary artery disease) Current visit: No Status: Chronic Resumed all home meds Qualifiers: Coronary Disease-Associated Artery/Lesion type: unspecified vessel or lesion type [place] vs. transplanted heart: [place] heart Associated angina: angina presence unspecified Qualified Code(s): I25.10 - Atherosclerotic heart disease of [place] coronary artery without angina pectoris (4) Pacemaker Current visit: No Status: Chronic (5) HTN (hypertension) Current visit: No Status: Chronic stable with current home meds Qualifiers: Hypertension type: essential hypertension Qualified Code(s): I10 - Essential (primary) hypertension (6) HLD (hyperlipidemia) Current visit: No Status: Chronic on statin Qualifiers: Hyperlipidemia type: pure hypercholesterolemia Qualified Code(s): E78.00 - Pure hypercholesterolemia, unspecified; E78.0 - Pure hypercholesterolemia (7) DVT prophylaxis Current visit: No Status: Acute on Lovenox SQ (8) DM2 (diabetes mellitus, type 2) Current visit: No Status: Chronic Held PO meds started him on ISS Medium Qualifiers: Diabetes mellitus complication status: with circulatory complication Diabetes mellitus complication detail: with other circulatory complications Diabetes mellitus senior living insulin use: with bunch maker hand use Qualified Code(s) : E11.59 - Type 2 diabetes mellitus with other circulatory complications; 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 Pizarro is a 76 year old male with a relevant past medical history of Systolic CHF with LVEF 35-40%, CAD s/p CABG x2 2002, s/p PCI to RCA, HTN, PPM, PAF, CVA, hyperlipidemia, hard of hearing, and GERD pt presented to ER c/o worsening SOB of sub sternal CP. Pt did mention he does get sharp CP 7/10 in severity, intermittent, especially when lie back or flat. He does c/o significant PND / Orthopnea. Also pt denied of taking any Lasix at home. Past Med Surg Social Fam HX - Past Medical History Medical history: asthma, atrial fibrillation, CHF, coronary artery disease, CVA , diabetes, hypertension, myocardial infarction, thyroid disease Psychiatric history: no psych history - Past Surgical History Surgical History: angioplasty/stent, cholecystectomy, coronary bypass (CABG), pacemaker/AICD - Social History Smoking Status: Former smoker Smokeless Tobacco Status: No Alcohol use: none Drug use: none - Family History Grandfather Family Member Ethnicity: Non- Living Status: Hx Family Cardiac Disorders: Yes ([place]) Mother Family Member Ethnicity: Non- Living Status: Hx Family Neurologic Disorders: Yes (CVA) Father Adopted: No Family Member Ethnicity: Non- Living Status: Hx Family Cardiac Disorders: No Hx Family Respiratory Disorders: No Hx Family Cancer: Yes (Unknown what type) Hx Family GI Disorders: No Hx Family Endocrine Disorder: No Hx Family Neuromuscular Disorders: No Hx Family Neurologic Disorders: No Hx Family HEENT Disorders: No Hx Family Autoimmune Disorders: No Internal Medicine - H&P: Meds Nitroglycerin [Nitrostat] 0.4 mg SL Q5M PRN 10/01/16 [History] Omeprazole [PriLOSEC] 20 mg PO BIDAC #60 11/04/16 [Rx] Ascorbate Calcium [Vitamin C] 500 mg PO DAILY 11/14/16 [History] Cyanocobalamin (Vitamin B-12) [Vitamin B12] 1,000 mcg PO DAILY 11/14/16 [History ] Multivitamin [One Daily Essential] 1 tab PO DAILY 11/14/16 [History] Aspirin Enteric Coated [Aspirin EC] 81 mg PO DAILY #30 tablet. 12/24/16 [Rx] Atorvastatin [Lipitor] 40 mg PO HS #30 tablet 12/24/16 [Rx] Carvedilol [Coreg] 3.125 mg PO BIDWM 30 Days tab 12/24/16 [Rx] Furosemide [Lasix] 40 mg PO DAILY #30 tablet 12/24/16 [Rx] Isosorbide MONOnitrate (24 HR) [Imdur] 120 mg PO DAILY #30 tab 12/24/16 [Rx] Lisinopril [Zestril] 2.5 mg PO DAILY #30 tab 12/24/16 [Rx] Tamsulosin [Flomax] 0.4 mg PO DAILY #30 capsule 12/24/16 [Rx] Ticagrelor [Brilinta] 90 mg PO BID 30 Days tab 12/24/16 [Rx] amLODIPine [Norvasc] 10 mg PO DAILY #30 tab 12/24/16 [Rx] metFORMIN [Glucophage] 500 mg PO BID #60 tablet 12/24/16 [Rx] 3 Allergy/AdvReac Type Severity Reaction Status Date / Time Oxycodone [From Percocet] Allergy Hives Verified 01/28/17 05:46 tramadol Allergy Hives Verified 01/28/17 05:46 All Systems PM: A 10-system review of systems was performed and is negative for pertinent findings except as documented above in the HPI. Review of systems: All the systems are reviewed everything is benign except the systems and symptoms I mentioned in the history of present illness - Constitutional Vitals: Temp Pulse Resp BP Pulse Ox 97.9 F 78 16 161/91 94 03/02/17 23:13 03/02/17 23:13 03/02/17 23:13 03/02/17 23:13 03/02/17 23:13 General appearance: Present: mild distress (with SOB), A&O X 3, answers questions appropriately - Head Head exam: Present: atraumatic, normal inspection - Neck Neck exam general surgery: Present: supple - Respiratory Respiratory exam: Present: decreased breath sounds, rales (++), wheezes (mild). Absent: respiratory distress, rhonchi - Cardiovascular Cardiovascular exam: Present: RRR, +S1, +S2. Absent: tachycardia - GI/Abdominal GI/Abdominal exam: Present: normal bowel sounds, soft. Absent: rebound, rigid, tenderness - Extremities Exam Extremities exam: Present: pedal edema (1+). Absent: calf tenderness, tenderness - Back Exam Back exam: Absent: CVA tenderness (L), CVA tenderness (R) - Neurological Exam Neurological exam: Present: alert, oriented X3 - Psychiatric Psychiatric exam: Present: normal affect, normal mood Internal Med - H&P Results - Labs CBC & Chem 7: 03/02/17 21:24 03/02/17 21:24
[2017-03-03] MEDS ORDERED: Dextrose Gel 15 GM PO PRN ×2 (00:23)
[2017-03-03] MEDS ORDERED: D5% in Water 1,000 ML IVC PRN (00:23)
[2017-03-03] MEDS ORDERED: *HR* Dextrose 50 % in Water (Syg) 50 ML SYRINGE IVP PRN (00:23)
[2017-03-03] MEDS: Aspirin Enteric Coated 81 MG Tablet PO SCH ×2 (01:02→08:51)
[2017-03-03 04:11] LABS: Basophils # 0.1 K/mcL (0.0-0.2); Basophils % 0.8 %; Eosinophils # 0.5 K/mcL (0.0-0.6); Eosinophils % 5.1 %; Hematocrit 40.5 % (37.5-50.1); Hemoglobin 13.3 g/dL (12.9-16.9); Immature Granulocytes % 0.2 % (0-4); Lymphocytes # 1.6 K/mcL (0.6-4.6); Lymphocytes % 17.7 %; Mean Corpuscular HGB Conc 32.8 g/dL (31.6-35.5); Mean Corpuscular Hemoglobin 28.3 pg (28.0-33.3); Mean Corpuscular Volume 86.2 fL (83.0-100.0); Mean Platelet Volume 10.4 fL (9.4-12.4); Monocytes # 0.8 K/mcL (0.0-1.3); Monocytes % 9.3 %; Platelet Count 193 K/mcL (140-400); Red Cell Distribution Width 14.5 % (11.5-14.5); Segmented Neutrophils % 66.9 %
[2017-03-03 04:17] LABS: BUN/Creatinine Ratio 24 (6-26); Blood Urea Nitrogen 22 mg/dL (8-26); Calcium 9.2 mg/dL (8.6-10.8); Carbon Dioxide 25 mEq/L (19-29); Chloride 108 mEq/L (98-109); Glucose 127 mg/dL (70-99); Magnesium 1.8 mg/dL (1.6-2.6); Osmolality,Calculated 299 (280-300); Potassium 3.5 mEq/L (3.5-4.5); Sodium 142 mEq/L (136-145); eGFR For African Americans > 60 (> 60); eGFR For Non-African Americans > 60 (> 60)
[2017-03-03] MEDS: *HR* Morphine 2 MG/ML SYRINGE IVP PRN ×3 (04:32→23:21)
[2017-03-03] MEDS: *HR* Enoxaparin 40 MG/0.4 ML SYRINGE SQ SCH (04:32)
[2017-03-03] MEDS: Nitroglycerin 0.4 MG TAB.SUBL SL PRN ×4 (04:45→23:31)
[2017-03-03] MEDS: Ascorbic Acid 500 MG TABLET PO SCH (08:51)
[2017-03-03] MEDS: *HR* Ticagrelor 90 MG TABLET PO SCH ×2 (08:51→21:22)
[2017-03-03] MEDS: Isosorbide MONOnitrate (24 HR) 30 MG TAB.ER.24H PO SCH (08:51)
[2017-03-03] MEDS: Cyanocobalamin (B-12) 1,000 MCG TABLET PO SCH (08:51)
[2017-03-03] MEDS: Furosemide 40 MG/4 ML VIAL IVP SCH ×2 (08:52→17:28)
[2017-03-03] MEDS: Insulin LISPRO 300 UNITS/3 ML VIAL SQ SCH ×4 (11:07→21:22)
--- NOTE | 2017-03-03 15:02 | Internal Med Progress Note ---
Date of Encounter: 03/03/17 Time of Encounter: 10:20 - Assessment and plan (1) Acute on chronic systolic (congestive) heart failure Current Visit: Yes Status: Acute Assessment and plan: Patient has responded well to Lasix. Has had -1.9 L fluid balance. Continue Lasix. Continue to monitor input and output. Moderate risk for complications (2) CAD (coronary artery disease) Current Visit: Yes Status: Chronic Assessment and plan: Continue aspirin, Lipitor, carvedilol and brillinta Qualifiers: Coronary Disease-Associated Artery/Lesion type: unspecified vessel or lesion type [place] vs. transplanted heart: [place] heart Associated angina: angina presence unspecified Qualified Code(s): I25.10 - Atherosclerotic heart disease of [place] coronary artery without angina pectoris (3) Chest pain Current Visit: Yes Status: Acute Assessment and plan: Patient has central chest wall tenderness. Likely musculoskeletal pain. We will treat with anti-inflammatory agents. Qualifiers: Chest pain type: intercostal pain Qualified Code(s): R07.82 - Intercostal pain (4) DM2 (diabetes mellitus, type 2) Current Visit: No Status: Chronic Assessment and plan: Sliding scale insulin. Blood sugars ranging between 120 and 180. We will follow and adjust insulin regimen accordingly Qualifiers: Diabetes mellitus complication status: with circulatory complication Diabetes mellitus complication detail: with other circulatory complications Diabetes mellitus jail insulin use: with jail use Qualified Code(s) : E11.59 - Type 2 diabetes mellitus with other circulatory complications; Z79.4 - care home (current) use of insulin (5) HLD (hyperlipidemia) Current Visit: No Status: Chronic Assessment and plan: Continue Lipitor Qualifiers: Hyperlipidemia type: mixed hyperlipidemia Qualified Code(s): E78.2 - Mixed hyperlipidemia (6) HTN (hypertension) Current Visit: Yes Status: Chronic Assessment and plan: Continue Imdur, carvedilol and lisinopril. Physically controlled Qualifiers: Hypertension type: essential hypertension Qualified Code(s): I10 - Essential (primary) hypertension - Subjective Interval history: Patient complains of central chest pain. Worsens with cough and deep breaths. Shortness of breath also present but improving. No fever or chills reported overnight - Constitutional Vitals: Temp Pulse Resp BP Pulse Ox 98.2 F 68 15 130/79 95 03/03/17 11:43 03/03/17 11:43 12/14/17 11:43 03/03/17 11:43 03/03/17 11:43 General appearance: Present: mild distress (with SOB), A&O X 3, answers questions appropriately - Neck Neck exam general surgery: Present: supple, trachea midline. Absent: lymphadenopathy - Respiratory Respiratory exam: Present: chest wall tenderness (central chest wall tenderness) , CTAB. Absent: accessory muscle use, rales, rhonchi, wheezes - Cardiovascular Cardiovascular exam: Present: RRR, +S1, +S2. Absent: diastolic murmur, gallop, rubs, systolic murmur - GI/Abdominal GI/Abdominal exam: Present: normal bowel sounds, soft, no peritoneal signs. Absent: distended, tenderness - Extremities Exam Extremities exam: Present: warm, radial pulses palpable and symmetrical. Absent : calf tenderness, cyanotic, pedal edema - Neurological Exam Neurological exam: Present: alert, CN II-XII intact, oriented X3, no focal deficits. Absent: facial droop, speech deficit - Skin Skin exam: Present: dry, intact Internal Medicine: Result - Labs CBC & Chem 7: 03/03/17 03:34 03/03/17 03:34 Labs: Short CBC 03/03/17 Range/Units 03:34 WBC 8.9 (4.3-11.1) K/mcL Hgb 13.3 (12.9-16.9) g/dL Hct 40.5 (37.5-50.1) % Plt Count 193 (140-400) K/mcL Neutrophils # 6.0 (1.6-8.9) K/mcL BMP 03/03/17 03:34 Sodium 142 Potassium 3.5 Chloride 108 Carbon Dioxide 25 BUN 22 Creatinine 0.93 Glucose 127 H Calcium 9.2 Cardiac Enzymes 03/03/17 03/03/17 Range/Units 03:34 09:28 Troponin I 0.05 H* 0.05 H* (0-0.03) ng/mL Consult Discharge Plan - Plan Referrals: Lance Cronin MD [Primary Care Provider] - (WEB REQUEST SENT ON 03/03/17)
--- NOTE | 2017-03-03 16:34 | Electrocardiograph Report ---
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
--- NOTE | 2017-03-04 01:37 | Event Note ---
Date of Encounter: 03/03/17 Time of Encounter: 23:30 Patient was complaining of sharp, mid-sternal chest pain that radiated down his L arm and leg. He rated the pain as a 5/10 and said it had started 30 minutes ago. He was put on morphine but it did not help with the pain. I gave some nitroglycerin and he said the pain was beginning to diminish. An EKG was done and showed no ST elevations or acute ischemic changes. Patient has a pacemaker in place. Troponins were obtained and showed a level of 0.04, which was down from his previous level of 0.05. His pain seems more likely muscular. He did present with chest wall tenderness. He mentioned that his pacemaker has not been checked in over 8 years. I will put in a cardio consult. - Continue to trend troponin.
[2017-03-04] MEDS: *HR* Enoxaparin 40 MG/0.4 ML SYRINGE SQ SCH (05:41)
[2017-03-04 06:15] LABS: BUN/Creatinine Ratio 20 (6-26); Blood Urea Nitrogen 22 mg/dL (8-26); Calcium 9.5 mg/dL (8.6-10.8); Carbon Dioxide 27 mEq/L (19-29); Chloride 104 mEq/L (98-109); Glucose 127 mg/dL (70-99); Osmolality,Calculated 297 (280-300); Potassium 3.5 mEq/L (3.5-4.5); Sodium 141 mEq/L (136-145); eGFR For African Americans > 60 (> 60); eGFR For Non-African Americans > 60 (> 60)
[2017-03-04] MEDS: Insulin LISPRO 300 UNITS/3 ML VIAL SQ SCH ×4 (07:21→20:59)
[2017-03-04] MEDS: *HR* Ticagrelor 90 MG TABLET PO SCH ×2 (08:59→20:59)
[2017-03-04] MEDS: Isosorbide MONOnitrate (24 HR) 30 MG TAB.ER.24H PO SCH (08:59)
[2017-03-04] MEDS: Aspirin Enteric Coated 81 MG Tablet PO SCH (08:59)
[2017-03-04] MEDS: Ascorbic Acid 500 MG TABLET PO SCH (08:59)
[2017-03-04] MEDS: Cyanocobalamin (B-12) 1,000 MCG TABLET PO SCH (09:00)
[2017-03-04] MEDS: Furosemide 40 MG TABLET PO SCH ×2 (09:00→17:25)
--- NOTE | 2017-03-04 09:04 | Cardiology Consult Note ---
Addendum entered and electronically signed by Kelechi Bernardo CNP 03/04/17 09:48 : Patient converted to oral lasix today. Continued to c/o dyspnea on my exam. Net negative 1000 ml. WIll give one time dose lasix today. Continue oral lasix at discharge. TTE ordered to re-eval EF. Original Note: Date of Encounter: 03/04/17 Time of Encounter: 08:22 Assessment and Plan (1) Pacemaker Current Visit: No Status: Chronic Cardiology consulted due to patient reported no device check in eight years. He is up to date on device checks. Last device check was 10/2016. Normal functioning device. device check was placed on the chart. (2) Congestive heart failure Current Visit: No Status: Acute Acute on chronic systolic and diastolic CHF. EF 35-50% on TTE 10/2016. Increasing dyspnea. CXR showed small to moderate bilateral pleural effusions, bibasilar airspace disease likely pulmonary edema. Agree with IV lasix. No maintenance dose of lasix at home per patient. Instructed to continue lasix 40 mg daily at last office visit. Patient is a very poor historian and there is concern for medication compliance. Home health was ordered to assist with meds at last OV and it is not clear if patient allowed them to follow through. CHF education. Low sodium diet. Strict I&O and daily weights. Qualifiers: Congestive heart failure type: combined Congestive heart failure chronicity : chronic Qualified Code(s): I50.42 - Chronic combined systolic (congestive) and diastolic (congestive) heart failure (3) Chest pain Current Visit: Yes Status: Acute Atypical chest pain. Reproducible. Likely muscle skeletal. Troponin mildly elevated in the setting of demand ischemia from acute on chronic CHF. EKG shows paced rhythm. Continue medical management. Qualifiers: Chest pain type: intercostal pain Qualified Code(s): R07.82 - Intercostal pain (4) CAD (coronary artery disease) Current Visit: Yes Status: Chronic H/o 2V CABg and recent PCI TTE 11/03/16- EF 35-40%. Global left ventricular systolic dysfunction. No pulmonary hypertension. [facility] 10/2016-EF With [facility] 11/02/16 with 50% left main, 90% proximal LAD, 100% mid LAD, 99% in stent thrombosis of ostial RCA 4 JATINDER were placed, ARROYO to LAD is patent, SVG to OM is patent. Importance of continuing DAPT with brilinta and asa uninterrupted reviewed with patient. He states he has been taking for the past month but stopped taking meds prior to that. Continue Statin and bb. Qualifiers: Coronary Disease-Associated Artery/Lesion type: unspecified vessel or lesion type [place] vs. transplanted heart: [place] heart Associated angina: angina presence unspecified Qualified Code(s): I25.10 - Atherosclerotic heart disease of [place] coronary artery without angina pectoris Discussion w patient/family: The assessment and plan as outlined above was discussed with the patient and/or family members who expressed understanding and agreement. All questions were answered. Thank you for involving us in the care of your patient. Please call with any questions. History of Present Illness Consult date: 03/04/17 Requesting physician: Xavier Fish Consult reason: Device check Chief complaint: SOB and chest pain History of present illness: Mr. Pizarro is a 76 year old male with a past medical history significant for CAD, s/p CABG 2V in 2002, s/p PCI to the RCA, ICMP, PPM for bradycardia, HTN, PAF, HLD, non-compliance, and [place]. He presented to the ER by EMS for increasing dyspnea and intermittent chest heaviness since Tuesday. Symptoms occur with minimal movement such as sitting on the side of his bed. He states that he was doing a lot of house work and walking up until this point. He denies weight gain and actually reports weight loss. Denies othopnea, PND, or edema. Denies palpitations. Reports he is currently taking his medications including brilinta and asa. Recent testing: TTE 11/03/16- EF 35-40%. Global left ventricular systolic dysfunction. No pulmonary hypertension. [facility] 10/2016-EF With [facility] 11/02/16 with 50% left main, 90% proximal LAD, 100% mid LAD, 99% in stent thrombosis of ostial RCA 4 JATINDER were placed, ARROYO to LAD is patent, SVG to OM is patent. Past Med Surg Social Fam HX - Past Medical History Attestation: Yes The following information was validated with the patient. Source: patient Medical history: asthma, atrial fibrillation, CHF, coronary artery disease, CVA , diabetes, hypertension, myocardial infarction, thyroid disease Psychiatric history: no psych history - Past Surgical History Surgical History: angioplasty/stent, cholecystectomy, coronary bypass (CABG), pacemaker/AICD - Social History Smoking Status: Former smoker Smokeless Tobacco Status: No Alcohol use: none Drug use: none - Family History Grandfather Family Member Ethnicity: Non- Living Status: Hx Family Cardiac Disorders: Yes (DE) Mother Family Member Ethnicity: Non- Living Status: Hx Family Neurologic Disorders: Yes (CVA) Father Adopted: No Family Member Ethnicity: Non- Living Status: Hx Family Cardiac Disorders: No Hx Family Respiratory Disorders: No Hx Family Cancer: Yes (Unknown what type) Hx Family GI Disorders: No Hx Family Endocrine Disorder: No Hx Family Neuromuscular Disorders: No Hx Family Neurologic Disorders: No Hx Family HEENT Disorders: No Hx Family Autoimmune Disorders: No Medications and Allergies Nitroglycerin [Nitrostat] 0.4 mg SL Q5M PRN 10/01/16 [History] Omeprazole [PriLOSEC] 20 mg PO BIDAC #60 11/04/16 [Rx] Ascorbate Calcium [Vitamin C] 500 mg PO DAILY 11/14/16 [History] Cyanocobalamin (Vitamin B-12) [Vitamin B12] 1,000 mcg PO DAILY 11/14/16 [History ] Multivitamin [One Daily Essential] 1 tab PO DAILY 11/14/16 [History] Aspirin Enteric Coated [Aspirin EC] 81 mg PO DAILY #30 tablet.dr 12/24/16 [Rx] Atorvastatin [Lipitor] 40 mg PO HS #30 tablet 12/24/16 [Rx] Carvedilol [Coreg] 3.125 mg PO BIDWM 30 Days tab 12/24/16 [Rx] Furosemide [Lasix] 40 mg PO DAILY #30 tablet 12/24/16 [Rx] Isosorbide MONOnitrate (24 HR) [Imdur] 120 mg PO DAILY #30 tab 12/24/16 [Rx] Lisinopril [Zestril] 2.5 mg PO DAILY #30 tab 12/24/16 [Rx] Tamsulosin [Flomax] 0.4 mg PO DAILY #30 capsule 12/24/16 [Rx] Ticagrelor [Brilinta] 90 mg PO BID 30 Days tab 12/24/16 [Rx] amLODIPine [Norvasc] 10 mg PO DAILY #30 tab 12/24/16 [Rx] metFORMIN [Glucophage] 500 mg PO BID #60 tablet 12/24/16 [Rx] 3 Allergy/AdvReac Type Severity Reaction Status Date / Time Oxycodone [From Percocet] Allergy Hives Verified 01/28/17 05:46 tramadol Allergy Hives Verified 01/28/17 05:46 All Systems Review: A 10-system review of systems was performed and is negative for pertinent findings except as documented above in the HPI. Physical Examination Vital Signs, Last 4 Hours Temp Pulse Resp BP Pulse Ox 03/04/17 07:26 97.6 F 65 16 126/79 96 General: Conversant, No Apparent Distress HEENT: Atraumatic, Normocephaly, Mucus Membranes Moist Neck: No JVD, Normal carotid pulses Cardiac: Reg Rate and Rhythm, Normal S1 and S2, No Murmur, Other (EKG shows paced rhythm) Lungs: Normal Breath Sounds, No Wheeze, Rales, Rhonchi Neuro: Alert and responsive, No focal deficits noted Abdomen: Soft, Non-Tender Skin: No rashes noted on visualized skin Musculoskeletal: No Chest Wall Tenderness Extremities: No Clubbing, No Cyanosis, No Edema, Normal Pulses Results 03/03/17 03:34 03/04/17 05:29 Lab Results 03/03/17 03/03/17 03/04/17 09:28 23:35 05:29 Sodium 141 Potassium 3.5 Chloride 104 Carbon Dioxide 27 BUN 22 Creatinine 1.11 Glucose 127 H Calcium 9.5 Troponin I 0.05 H* 0.04 H* 03/04/17 05:29 Sodium Potassium Chloride Carbon Dioxide BUN Creatinine Glucose Calcium Troponin I 0.03 - Imaging and Cardiology Echo: report reviewed Cardiac cath: report reviewed - EKG Interpretation EKG results cardiology: personally reviewed Consult Discharge Plan - Plan Referrals: Lance Cronin MD [Primary Care Provider] - (WEB REQUEST SENT ON 03/03/17)
[2017-03-04] MEDS: *HR* HYDROcodone/Acet 5/325 mg TABLET PO PRN ×3 (09:10→23:58)
[2017-03-04] MEDS ORDERED: Furosemide 40 MG/4 ML VIAL IVP ONE (09:50)
--- NOTE | 2017-03-04 15:49 | Event Note ---
Date of Encounter: 03/04/17 Time of Encounter: 15:47 TTE reviewed. LVEF stable. Symptoms atypical, troponins negative. No compelling indication for further inpatient cardiac testing. Recommend continue current medications. Importance of DAPT discussed. Continue diuresis as needed for pulmonary edema. No further inpatient cardiology testing appears necessary at this time. Cardiology will sign off. Call with any questions or concerns. Thanks, Seth Herrera DO, FACC
--- NOTE | 2017-03-04 16:25 | Internal Med Progress Note ---
Date of Encounter: 03/04/17 Time of Encounter: 12:00 - Assessment and plan (1) Acute on chronic systolic (congestive) heart failure Current Visit: Yes Status: Acute Assessment and plan: Improving. Cardiology input appreciated. Patient received another dose of Lasix intravenously today. We will transition to oral Lasix from later today (2) CAD (coronary artery disease) Current Visit: Yes Status: Chronic Assessment and plan: 2-D echocardiogram shows EF of 40% which is similar to previous. Continue aspirin, Lipitor, carvedilol and brilinta Qualifiers: Coronary Disease-Associated Artery/Lesion type: unspecified vessel or lesion type [place] vs. transplanted heart: [place] heart Associated angina: angina presence unspecified Qualified Code(s): I25.10 - Atherosclerotic heart disease of [place] coronary artery without angina pectoris (3) Chest pain Current Visit: Yes Status: Acute Assessment and plan: Continue Tylenol and [place] as needed for pain control. Qualifiers: Chest pain type: intercostal pain Qualified Code(s): R07.82 - Intercostal pain (4) DM2 (diabetes mellitus, type 2) Current Visit: Yes Status: Chronic Assessment and plan: Well-controlled. 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 Qualifiers: Hypertension type: essential hypertension Qualified Code(s): I10 - Essential (primary) hypertension - Subjective Interval history: Patient complaints of some mild patient continues to have midsternal chest pain and pain over his pacemaker radiating up to his neck. Denies shortness of breath. Pedal edema improving. - Constitutional Vitals: Temp Pulse Resp BP Pulse Ox 97.9 F 67 16 103/61 96 03/04/17 11:43 03/04/17 11:43 03/04/17 11:43 03/04/17 11:43 03/04/17 11:43 General appearance: Present: cooperative, A&O X 3, answers questions appropriately - Neck Neck exam general surgery: Present: supple, trachea midline. Absent: lymphadenopathy - Respiratory Respiratory exam: Present: chest wall tenderness, CTAB. Absent: accessory muscle use, rales, rhonchi, wheezes - Cardiovascular Cardiovascular exam: Present: RRR, +S1, +S2. Absent: diastolic murmur, gallop, rubs, systolic murmur - GI/Abdominal GI/Abdominal exam: Present: normal bowel sounds, soft, no peritoneal signs. Absent: distended, tenderness - Extremities Exam Extremities exam: Present: warm, radial pulses palpable and symmetrical. Absent : calf tenderness, cyanotic, pedal edema Internal Medicine: Result - Labs CBC & Chem 7: 03/03/17 03:34 03/04/17 05:29 Labs: BMP 03/04/17 05:29 Sodium 141 Potassium 3.5 Chloride 104 Carbon Dioxide 27 BUN 22 Creatinine 1.11 Glucose 127 H Calcium 9.5 Cardiac Enzymes 03/03/17 03/04/17 03/04/17 Range/Units 23:35 05:29 11:30 Troponin I 0.04 H* 0.03 0.03 (0-0.03) ng/mL - Impressions Impressions Echocardiogram Limited Views 03/04/17 09:33 Impressions: LVEF 40%. Normal RV size. Function is mildly reduced. Left Ventricular Wall Motion: Rest Echo Findings The apex, apical inferior, mid inferior, mid inferior lateral and basal inferior lateral mena were hypokinetic. The basal inferior wall was akinetic. The apical septal, mid inferior septal, basal inferior septal, mid anterior septal and basal anterior septal mena were dyskinetic. All other wall segments showed normal motion. Findings: Study Quality * Technically adequate exam. ECG Findings * Sinus rhythm with BBB. Left Ventricle * Atypical septal motion consistent with post-operative status. * Normal LV size. * LVEF 40%. Right Ventricle * Normal RV size. Function is mildly reduced. Aorta * Normally sized aortic root. Device lead * A device lead was visualized in the right atrium and right ventricle. IVC * The IVC is not dilated. Consult Discharge Plan - Plan Referrals: Lance Cronin MD [Primary Care Provider] - (WEB REQUEST SENT ON 03/03/17)
--- NOTE | 2017-03-04 17:11 | Electrocardiograph Report ---
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
[2017-03-05] MEDS: *HR* Enoxaparin 40 MG/0.4 ML SYRINGE SQ SCH (05:38)
[2017-03-05] MEDS: Insulin LISPRO 300 UNITS/3 ML VIAL SQ SCH ×2 (07:43→11:59)
[2017-03-05] MEDS: Isosorbide MONOnitrate (24 HR) 30 MG TAB.ER.24H PO SCH (07:44)
[2017-03-05] MEDS: Cyanocobalamin (B-12) 1,000 MCG TABLET PO SCH (07:44)
[2017-03-05] MEDS: Aspirin Enteric Coated 81 MG Tablet PO SCH (07:45)
[2017-03-05] MEDS: Ascorbic Acid 500 MG TABLET PO SCH (07:45)
[2017-03-05] MEDS: *HR* HYDROcodone/Acet 5/325 mg TABLET PO PRN (07:45)
[2017-03-05] MEDS: *HR* Ticagrelor 90 MG TABLET PO SCH (07:45)
[2017-03-05] MEDS: Furosemide 40 MG TABLET PO SCH (07:46)
[2017-03-05 11:18] VITALS: BP 92/60
--- NOTE | 2017-03-05 13:42 | Discharge Summary ---
Date of Encounter: 03/05/17 Time of Encounter: 10:15 - Discharge Diagnosis (1) Acute on chronic systolic (congestive) heart failure Priority: Primary Status: Acute (2) CAD (coronary artery disease) Priority: Secondary Status: Chronic Qualifiers: Coronary Disease-Associated Artery/Lesion type: unspecified vessel or lesion type [place] vs. transplanted heart: [place] heart Associated angina: angina presence unspecified Qualified Code(s): I25.10 - Atherosclerotic heart disease of [place] coronary artery without angina pectoris (3) Chest pain Priority: Secondary Status: Acute Qualifiers: Chest pain type: intercostal pain Qualified Code(s): R07.82 - Intercostal pain (4) DM2 (diabetes mellitus, type 2) Priority: Secondary Status: Chronic Qualifiers: Diabetes mellitus complication status: with circulatory complication Diabetes mellitus complication detail: with other circulatory complications Diabetes mellitus terminal press operator insulin use: with fdc use Qualified Code(s) : E11.59 - Type 2 diabetes mellitus with other circulatory complications; Z79.4 - halfway (current) use of insulin (5) HLD (hyperlipidemia) Priority: Secondary Status: Chronic Qualifiers: Hyperlipidemia type: mixed hyperlipidemia Qualified Code(s): E78.2 - Mixed hyperlipidemia (6) HTN (hypertension) Priority: Secondary Status: Chronic Qualifiers: Hypertension type: essential hypertension Qualified Code(s): I10 - Essential (primary) hypertension - Discharge Medications Prescriptions: HYDROcodone/Acet 5/325 mg [[place] 5-325 mg] 1 tab PO Q6HR PRN #14 tablet PRN Reason: Moderate Pain amLODIPine [Norvasc] 5 mg PO DAILY #30 tab Docusate [Colace] 100 mg PO BID PRN #30 capsule PRN Reason: Constipation Furosemide [Lasix] 40 mg PO BIDDIURETIC #60 tablet Home Medications: Nitroglycerin [Nitrostat] 0.4 mg SL Q5M PRN 10/01/16 [History] Omeprazole [PriLOSEC] 20 mg PO BIDAC #60 11/04/16 [Rx] Ascorbate Calcium [Vitamin C] 500 mg PO DAILY 11/14/16 [History] Cyanocobalamin (Vitamin B-12) [Vitamin B12] 1,000 mcg PO DAILY 11/14/16 [History ] Multivitamin [One Daily Essential] 1 tab PO DAILY 11/14/16 [History] Aspirin Enteric Coated [Aspirin EC] 81 mg PO DAILY #30 tablet. 12/24/16 [Rx] Atorvastatin [Lipitor] 40 mg PO HS #30 tablet 12/24/16 [Rx] Carvedilol [Coreg] 3.125 mg PO BIDWM 30 Days tab 12/24/16 [Rx] Isosorbide MONOnitrate (24 HR) [Imdur] 120 mg PO DAILY #30 tab 12/24/16 [Rx] Lisinopril [Zestril] 2.5 mg PO DAILY #30 tab 12/24/16 [Rx] Tamsulosin [Flomax] 0.4 mg PO DAILY #30 capsule 12/24/16 [Rx] Ticagrelor [Brilinta] 90 mg PO BID 30 Days tab 12/24/16 [Rx] metFORMIN [Glucophage] 500 mg PO BID #60 tablet 12/24/16 [Rx] Docusate [Colace] 100 mg PO BID PRN #30 capsule 03/05/17 [Rx] Furosemide [Lasix] 40 mg PO BIDDIURETIC #60 tablet 03/05/17 [Rx] HYDROcodone/Acet 5/325 mg [[place] 5-325 mg] 1 tab PO Q6HR PRN #14 tablet [Rx] amLODIPine [Norvasc] 5 mg PO DAILY #30 tab 03/05/17 [Rx] Allergies/Adverse Reactions: 3 Allergy/AdvReac Type Severity Reaction Status Date / Time Oxycodone [From Percocet] Allergy Hives Verified 01/28/17 05:46 tramadol Allergy Hives Verified 01/28/17 05:46 Procedures/tests Complete & Pending: Procedures Performed prior 72 hours Category Date Time Status EKG [ECG 12 lead ECG] [ECG] Stat Y 03/03/17 23:29 Completed EV limited echocardiogram Routine Y 03/04/17 09:33 Completed Date of admission: 03/02/17 23:29 Primary care physician: Lance Cronin MD Consults: 03/04/17 06:09 Consult to Cardiology [CONS] Routine Comment: Consulting Provider: Amandeep Walker Reason for Consult: Patient requesting pacemaker be evaluated. Call Completed: Yes 03/04/17 09:42 Consult to Wire Bound Box Machine Operator [CONS] Routine Reason for SW Consult: patient needs assistance with medications at home. Discharging clinician: Preston Vela Anticipated date of discharge: 03/05/17 - Patient Status Disposition: Home Health Service Condition: Good Functional capacity at discharge: uses cane/walker Overall status at discharge: patient is progressing back to baseline - Discharge Instructions Instructions: Heart Failure (DC), Chest Pain (DC), Diabetes Mellitus Type 2 in Adults (DC) Follow Up With: Lance Cronin MD [Primary Care Provider] - (WEB REQUEST SENT ON 03/03/17) Ander Garcia MD [Partnered Physician] - (in 1-2 weeks ) - Diet and Activity Activity: as per physical therapy Diet: low fat, low cholesterol, low salt diet, other Hospital course: Mr. Pizarro is a 76 year old male sent with a history of systolic congestive heart failure, coronary artery disease, hypertension, paroxysmal atrial fibrillation, hyperlipidemia, CVA who was hospitalized here after presenting with chest pain and shortness of breath. He was diagnosed with acute on chronic congestive heart failure. He was started on treatment with Lasix intravenously. His EKG showed paced rhythm. His troponins were trended. Patient's chest pain was musculoskeletal in nature and reproducible. His troponins trended up to 0.05 and have been trending down since then. Cardiology was consulted. They recommended doing a 2-D echocardiogram which showed an EF of 40% which was around his baseline. No further recommendations were made. Patient continued to be treated for congestive heart failure. Today he is doing much better overall. Although he continues to have reproducible chest wall pain, he is breathing much better. Pedal edema has pretty much subsided. He has been evaluated by physical therapy and recommended home health which will be provided for him. He is clinically stable for discharge home. He will follow up with his PCP and cardiology for further management. - Time Spent with Patient Total time spent providing and/or coordinating discharge services: Greater than 30 minutes (35 min) - Constitutional Vitals: Temp Pulse Resp BP Pulse Ox 98.4 F 64 16 92/60 96 03/05/17 11:13 03/05/17 11:13 03/05/17 11:13 03/05/17 11:13 03/05/17 11:13 General appearance: Present: cooperative, A&O X 3, answers questions appropriately - Respiratory Respiratory exam: Present: chest wall tenderness, CTAB. Absent: accessory muscle use, rales, rhonchi, wheezes - Cardiovascular Cardiovascular exam: Present: RRR, +S1, +S2. Absent: diastolic murmur, gallop, rubs, systolic murmur - GI/Abdominal GI/Abdominal exam: Present: normal bowel sounds, soft, no peritoneal signs. Absent: distended, tenderness - Extremities Exam Extremities exam: Present: warm, radial pulses palpable and symmetrical. Absent : calf tenderness, cyanotic, pedal edema
--- NOTE | 2017-03-05 15:30 | Physician Discharge Referral ---
Home Health/Hosp Referral Info Transfer to: Home Health Provider in Charge Post Discharge: PCP - Diagnosis (1) Acute on chronic systolic (congestive) heart failure Priority: Primary Status: Acute (2) CAD (coronary artery disease) Priority: Secondary Status: Chronic (3) Chest pain Priority: Secondary Status: Acute (4) DM2 (diabetes mellitus, type 2) Priority: Secondary Status: Chronic (5) HLD (hyperlipidemia) Priority: Secondary Status: Chronic (6) HTN (hypertension) Priority: Secondary Status: Chronic - Respiratory Orders Smoking Cessation: Smoking cessation has been advised. For more information, call the [place] Tobacco Quit Line at 6-980-LTMV-NOW. - Diet/Nutrition Diet/Nutrition Orders: Cardiac - Activity Activity Orders: Walker - Services Needed Following services are medically necessary services: Nursing, Physical Therapy, Occupational Therapy - Transfer Medications Prescriptions: HYDROcodone/Acet 5/325 mg [[place] 5-325 mg] 1 tab PO Q6HR PRN #14 tablet PRN Reason: Moderate Pain amLODIPine [Norvasc] 5 mg PO DAILY #30 tab Docusate [Colace] 100 mg PO BID PRN #30 capsule PRN Reason: Constipation Furosemide [Lasix] 40 mg PO BIDDIURETIC #60 tablet Home Medications: Nitroglycerin [Nitrostat] 0.4 mg SL Q5M PRN 10/01/16 [History] Omeprazole [PriLOSEC] 20 mg PO BIDAC #60 11/04/16 [Rx] Ascorbate Calcium [Vitamin C] 500 mg PO DAILY 11/14/16 [History] Cyanocobalamin (Vitamin B-12) [Vitamin B12] 1,000 mcg PO DAILY 11/14/16 [History ] Multivitamin [One Daily Essential] 1 tab PO DAILY 11/14/16 [History] Aspirin Enteric Coated [Aspirin EC] 81 mg PO DAILY #30 tablet. 12/24/16 [Rx] Atorvastatin [Lipitor] 40 mg PO HS #30 tablet 12/24/16 [Rx] Carvedilol [Coreg] 3.125 mg PO BIDWM 30 Days tab 12/24/16 [Rx] Isosorbide MONOnitrate (24 HR) [Imdur] 120 mg PO DAILY #30 tab 12/24/16 [Rx] Lisinopril [Zestril] 2.5 mg PO DAILY #30 tab 12/24/16 [Rx] Tamsulosin [Flomax] 0.4 mg PO DAILY #30 capsule 12/24/16 [Rx] Ticagrelor [Brilinta] 90 mg PO BID 30 Days tab 12/24/16 [Rx] metFORMIN [Glucophage] 500 mg PO BID #60 tablet 12/24/16 [Rx] Docusate [Colace] 100 mg PO BID PRN #30 capsule 03/05/17 [Rx] Furosemide [Lasix] 40 mg PO BIDDIURETIC #60 tablet 03/05/17 [Rx] HYDROcodone/Acet 5/325 mg [[place] 5-325 mg] 1 tab PO Q6HR PRN #14 tablet [Rx] amLODIPine [Norvasc] 5 mg PO DAILY #30 tab 03/05/17 [Rx] Allergies/Adverse Reactions: 3 Allergy/AdvReac Type Severity Reaction Status Date / Time Oxycodone [From Percocet] Allergy Hives Verified 01/28/17 05:46 tramadol Allergy Hives Verified 01/28/17 05:46 Certification: Further, I certify that my clinical findings support that this patient is homebound (i.e. absences from home require considerable and taxing effort and are for medical reasons or hinduism services or infrequently or short duration when for other reasons) because: Homebound Reason: Patient requires assistance of a person or device to safely leave home Attestation: My signature below is to certify that this patient is under my care and that I, or nurse practitioner, or a physician's surgeon's assistant working with me, has a face-to -face encounter with this patient.
== END 2017-03-05 19:03 | disposition home health service (06) | DRG 292 ==
LOC: EMEROO 20:52 → 2ANU 20:52 → SUATTDRO 23:29
PROVIDERS: ADMIT Family Medicine; ATTEND Internal Medicine

== ENCOUNTER 2017-03-15 04:48 | Observation (INO) ==
[2017-03-15] MEDS ORDERED: Aspirin 325 MG TABLET PO ONE (04:59)
--- NOTE | 2017-03-15 05:06 | Emergency Department Note ---
Disposition Clinical Impression: Elevated troponin Congestive heart failure Qualifiers: Congestive heart failure type: systolic Congestive heart failure chronicity: acute on chronic Qualified Code(s): I50.23 - Acute on chronic systolic ( congestive) heart failure Disposition: Admitted As Inpatient Condition: Fair Forms: ED Satisfaction Letter SOB HPI - General Chief Complaint: ED Shortness of Breath/Dyspnea Stated Complaint: severe difficulty breathing Time Seen by Provider: 03/15/17 04:53 Source: patient, EMS Mode of arrival: private vehicle Limitations: no limitations Nursing Notes Reviewed: Yes Vital Signs Reviewed: Yes - History of Present Illness Pt Subjective Complaint: shortness of breath Onset (ago): hour(s) (around midnight) Context: other (Hx of similar) Severity: moderate Consistency/Duration: constant Improves with: nothing Worsens with: lying flat Known history of: congestive heart failure (EF 40%), other (CAD) Associated symptoms: Reports: chest pain ("Just started hurting"), cough, orthopnea. Denies: pain with inspiration, fever, wheezing, sputum production, lower extremity pain, polyuria, polydipsia, parasthesias, palpitations, hemoptysis, diaphoresis, nausea/vomiting, abdominal pain, rash, sense of impending doom Treatment prior to arrival: none Cough present: Yes Cough Description: Involuntary Cough Frequency: Intermittent Sputum production: No - Related Data Home oxygen amount: none Home Medications Medication Instructions Recorded Confirmed Nitroglycerin [Nitrostat] 0.4 mg SL Q5M PRN 10/01/16 03/03/17 Ascorbate Calcium [Vitamin C] 500 mg PO DAILY 11/14/16 03/03/17 Cyanocobalamin (Vitamin B-12) 1,000 mcg PO DAILY 11/14/16 03/03/17 [Vitamin B12] Multivitamin [One Daily Essential] 1 tab PO DAILY 11/14/16 03/03/17 Previous Rx's Medication Instructions Recorded Omeprazole [PriLOSEC] 20 mg PO BIDAC #60 11/04/16 Aspirin Enteric Coated [Aspirin EC] 81 mg PO DAILY #30 tablet. 12/24/16 Atorvastatin [Lipitor] 40 mg PO HS #30 tablet 12/24/16 Carvedilol [Coreg] 3.125 mg PO BIDWM 30 Days tab 12/24/16 Isosorbide MONOnitrate (24 HR) 120 mg PO DAILY #30 tab 12/24/16 [Imdur] Lisinopril [Zestril] 2.5 mg PO DAILY #30 tab 12/24/16 Tamsulosin [Flomax] 0.4 mg PO DAILY #30 capsule 12/24/16 Ticagrelor [Brilinta] 90 mg PO BID 30 Days tab 12/24/16 metFORMIN [Glucophage] 500 mg PO BID #60 tablet 12/24/16 Docusate [Colace] 100 mg PO BID PRN #30 capsule 03/05/17 Furosemide [Lasix] 40 mg PO BIDDIURETIC #60 tablet 03/05/17 HYDROcodone/Acet 5/325 mg [[place] 1 tab PO Q6HR PRN #14 tablet 03/05/17 5-325 mg] amLODIPine [Norvasc] 5 mg PO DAILY #30 tab 03/05/17 Allergies Allergy/AdvReac Type Severity Reaction Status Date / Time Oxycodone [From Percocet] Allergy Hives Verified 01/28/17 05:46 tramadol Allergy Hives Verified 01/28/17 05:46 All systems ED: reviewed and negative except as stated. Review of Systems: As Per HPI Constitutional: Denies: fever, chills, weakness Cardiovascular: Reports: as per HPI, chest pain, dyspnea on exertion, orthopnea. Denies: palpitations, edema, syncope Respiratory: Reports: as per HPI, cough, dyspnea. Denies: wheezes, hemoptysis, stridor, sputum production Gastrointestinal: Denies: abdominal pain, nausea, vomiting Musculoskeletal: Denies: back pain, neck pain, joint swelling Neurological: Denies: headache, weakness, numbness, paresthesias, confusion, vertigo Hematological/Lymphatic: Denies: easy bleeding, easy bruising Past Medical History - Past Medical History Attestation: Yes The following information was validated with the patient. Source: patient Medical history: Reports: asthma, atrial fibrillation, CHF, coronary artery disease, CVA, diabetes, hypertension, myocardial infarction, thyroid disease Surgical history: Reports: angioplasty/stent, cholecystectomy, coronary bypass ( CABG), pacemaker/AICD Psychiatric history: Reports: no psych history - Social History Smoking Status: Former smoker Smokeless Tobacco Status: No Alcohol use: Reports: none Drug use: Reports: none Physical Exam - General Limitations: no limitations General appearance: alert, in no apparent distress, anxious - Head Head exam: atraumatic, normocephalic, normal inspection - Eye Eye exam: Present: normal appearance, PERRL, EOMI. Absent: scleral icterus, conjunctival injection, periorbital swelling - ENT ENT exam: mucous membranes moist - Neck Neck exam: Present: normal inspection, full ROM, trachea midline. Absent: meningismus - Chest Chest inspection: Present: normal inspection - Respiratory Respiratory exam: Present: normal lung sounds bilaterally, respiratory distress (intermittent tachypnea). Absent: wheezes, stridor, accessory muscle use, prolonged expiratory phase - Cardiovascular Cardiovascular exam: Present: regular rate, normal rhythm - Abdominal Exam Abdominal exam: Present: soft, Non-Tender - Extremities Exam Extremities exam: Present: normal inspection, full ROM, normal capillary refill. Absent: pedal edema - Back Exam Back exam: Present: normal inspection, full ROM - Neurological Exam Neurological exam: Present: alert, oriented X3, CN II-XII intact, normal gait - Psychiatric Psychiatric exam: Present: normal affect, normal mood - Skin Skin exam: Present: warm, dry, intact, normal color Course Course Narrative: Patient presents from home by squad for evaluation of shortness of breath. It began around midnight when he was sleeping. He woke up and felt short of breath. When he sat up he felt better. He is unable to lie flat to go back to sleep. He has had episodes like this in the past. He has a history of congestive heart failure and his most recent echo showed an EF of 40%. He denies hemoptysis but has had an occasional dry cough. He denies leg swelling or pain and has no history of DVT or PE. After the interview and examine patient stated that his chest was starting to hurt. He describes soreness across the top of his chest. His EKG shows a paced rhythm which appears to be unchanged compared to previous. Rate is 78. Chest x-ray shows cardiomegaly and pulmonary vascular congestion with small pleural effusions consistent with CHF. His troponin is mildly elevated at 0.04. Aspirin. Lasix and nitroglycerin have been ordered. Hospitalist has been paged for admission. Case was discussed with Dr.N Duggan. She has had [id number] time with the patient and agrees with the assessment and plan. Patient has been accepted for admission. Vital Signs O2 Sat by Pulse Oximetry 96 03/15/17 04:49 Temperature 97.5 F L 03/15/17 04:50 Pulse Rate 80 03/15/17 04:50 Respiratory Rate 24 03/15/17 04:50 Blood Pressure 166/99 03/15/17 04:50 O2 Sat by Pulse Oximetry 96 03/15/17 04:50 Oxygen Delivery Oxygen Delivery Room Air Shortness of Breath/Dyspnea - Differential Diagnosis Likely: congestive heart failure - Medical Records Medical records reviewed: Yes I reviewed the patient's medical records. - Lab Data Lab results reviewed: Yes I reviewed the patient's lab results. Lab results narrative: Laboratory Last Values WBC 10.7 K/mcL (4.3-11.1) 03/15/17 05:02 RBC 5.40 M/mcL (4.19-5.50) 03/15/17 05:02 Hgb 15.0 g/dL (12.9-16.9) 03/15/17 05:02 Hct 46.9 % (37.5-50.1) 03/15/17 05:02 MCV 86.9 fL (83.0-100.0) 03/15/17 05:02 MCH 27.8 pg (28.0-33.3) L 03/15/17 05:02 MCHC 32.0 g/dL (31.6-35.5) 03/15/17 05:02 RDW 14.3 % (11.5-14.5) 03/15/17 05:02 Plt Count 184 K/mcL (140-400) 03/15/17 05:02 MPV 10.9 fL (9.4-12.4) 03/15/17 05:02 Immature Gran % 0.4 % (0-4) 03/15/17 05:02 Seg Neutrophils % 69.6 % 03/15/17 05:02 Lymphocytes % 18.0 % 03/15/17 05:02 Monocytes % 8.4 % 03/15/17 05:02 Eosinophils % 2.9 % 03/15/17 05:02 Basophils % 0.7 % 03/15/17 05:02 Neutrophils # 7.4 K/mcL (1.6-8.9) 03/15/17 05:02 Lymphocytes # 1.9 K/mcL (0.6-4.6) 03/15/17 05:02 Monocytes # 0.9 K/mcL (0.0-1.3) 03/15/17 05:02 Eosinophils # 0.3 K/mcL (0.0-0.6) 03/15/17 05:02 Basophils # 0.1 K/mcL (0.0-0.2) 03/15/17 05:02 PT 12.5 Seconds (9.4-12.1) H 03/15/17 05:02 INR 1.2 03/15/17 05:02 APTT 30.1 Seconds (26.0-36.0) 03/15/17 05:02 Sodium 139 mEq/L (136-145) 03/15/17 05:02 Potassium 4.1 mEq/L (3.5-5.1) 03/15/17 05:02 Chloride 105 mEq/L (98-107) 03/15/17 05:02 Carbon Dioxide 25 mEq/L (23-29) 03/15/17 05:02 BUN 22 mg/dL (8-23) 03/15/17 05:02 Creatinine 0.95 mg/dL (0.70-1.30) 03/15/17 05:02 Est GFR ( Amer) > 60 (> 60) 03/15/17 05:02 Est GFR (Non-Af Amer) > 60 (> 60) 03/15/17 05:02 BUN/Creatinine Ratio 23 (6-26) 03/15/17 05:02 Glucose 152 mg/dL (70-105) H 03/15/17 05:02 Calculated Osmolality 294 (280-300) 03/15/17 05:02 Calcium 10.1 mg/dL (8.6-10.3) 03/15/17 05:02 Troponin I 0.04 ng/mL (< 0.04) H* 03/15/17 05:02 B-Natriuretic Peptide 738 pg/mL (Less than 100) H 03/15/17 05:02 Result diagrams: 03/15/17 05:02 03/15/17 05:02 Lab Results 03/15/17 03/15/17 03/15/17 Range/Units 05:02 05:02 05:02 WBC 10.7 (4.3-11.1) K/mcL RBC 5.40 (4.19-5.50) M/mcL Hgb 15.0 (12.9-16.9) g/dL Hct 46.9 (37.5-50.1) % MCV 86.9 (83.0-100.0) fL MCH 27.8 L (28.0-33.3) pg MCHC 32.0 (31.6-35.5) g/dL RDW 14.3 (11.5-14.5) % Plt Count 184 (140-400) K/mcL MPV 10.9 (9.4-12.4) fL Immature Gran % 0.4 (0-4) % Seg Neutrophils % 69.6 % Lymphocytes % 18.0 % Monocytes % 8.4 % Eosinophils % 2.9 % Basophils % 0.7 % Neutrophils # 7.4 (1.6-8.9) K/mcL Lymphocytes # 1.9 (0.6-4.6) K/mcL Monocytes # 0.9 (0.0-1.3) K/mcL Eosinophils # 0.3 (0.0-0.6) K/mcL Basophils # 0.1 (0.0-0.2) K/mcL PT 12.5 H (9.4-12.1) Seconds INR 1.2 APTT 30.1 (26.0-36.0) Seconds Sodium 139 (136-145) mEq/L Potassium 4.1 (3.5-5.1) mEq/L Chloride 105 (98-107) mEq/L Carbon Dioxide 25 (23-29) mEq/L BUN 22 (8-23) mg/dL Creatinine 0.95 (0.70-1.30) mg/dL Est GFR ( Amer) > 60 (> 60) Est GFR (Non-Af Amer) > 60 (> 60) BUN/Creatinine Ratio 23 (6-26) Glucose 152 H (70-105) mg/dL Calculated Osmolality 294 (280-300) Calcium 10.1 (8.6-10.3) mg/dL Troponin I (< 0.04) ng/mL 03/15/17 Range/Units 05:02 WBC (4.3-11.1) K/mcL RBC (4.19-5.50) M/mcL Hgb (12.9-16.9) g/dL Hct (37.5-50.1) % MCV (83.0-100.0) fL MCH (28.0-33.3) pg MCHC (31.6-35.5) g/dL RDW (11.5-14.5) % Plt Count (140-400) K/mcL MPV (9.4-12.4) fL Immature Gran % (0-4) % Seg Neutrophils % % Lymphocytes % % Monocytes % % Eosinophils % % Basophils % % Neutrophils # (1.6-8.9) K/mcL Lymphocytes # (0.6-4.6) K/mcL Monocytes # (0.0-1.3) K/mcL Eosinophils # (0.0-0.6) K/mcL Basophils # (0.0-0.2) K/mcL PT (9.4-12.1) Seconds INR APTT (26.0-36.0) Seconds Sodium (136-145) mEq/L Potassium (3.5-5.1) mEq/L Chloride (98-107) mEq/L Carbon Dioxide (23-29) mEq/L BUN (8-23) mg/dL Creatinine (0.70-1.30) mg/dL Est GFR ( Amer) (> 60) Est GFR (Non-Af Amer) (> 60) BUN/Creatinine Ratio (6-26) Glucose (70-105) mg/dL Calculated Osmolality (280-300) Calcium (8.6-10.3) mg/dL Troponin I 0.04 H* (< 0.04) ng/mL - Radiology Data Radiology results reviewed: Yes I reviewed the patient's radiology results. Chest X-Ray 03/15/17 04:56 IMPRESSION: Mild cardiomegaly. Pulmonary edema and small pleural effusions compatible with CHF. D/ / Alaina Lorenz MD / Alaina Lorenz MD Interpreting Provider: Alaina Lorenz MD
[2017-03-15 05:14] LABS: Basophils # 0.1 K/mcL (0.0-0.2); Basophils % 0.7 %; Eosinophils # 0.3 K/mcL (0.0-0.6); Eosinophils % 2.9 %; Hematocrit 46.9 % (37.5-50.1); Immature Granulocytes % 0.4 % (0-4); Lymphocytes # 1.9 K/mcL (0.6-4.6); Mean Corpuscular Hemoglobin 27.8 pg (28.0-33.3); Mean Corpuscular Volume 86.9 fL (83.0-100.0); Mean Platelet Volume 10.9 fL (9.4-12.4); Monocytes # 0.9 K/mcL (0.0-1.3); Monocytes % 8.4 %; Neutrophils # 7.4 K/mcL (1.6-8.9); Platelet Count 184 K/mcL (140-400); Red Cell Distribution Width 14.3 % (11.5-14.5); Segmented Neutrophils % 69.6 %
[2017-03-15 05:18] LABS: INR 1.2; Prothrombin Time 12.5 Seconds (9.4-12.1)
[2017-03-15 05:21] LABS: Activated Partial Thrombo Time 30.1 Seconds (26.0-36.0)
[2017-03-15 05:29] LABS: BUN/Creatinine Ratio 23 (6-26); Blood Urea Nitrogen 22 mg/dL (8-23); Calcium 10.1 mg/dL (8.6-10.3); Carbon Dioxide 25 mEq/L (23-29); Chloride 105 mEq/L (98-107); Glucose 152 mg/dL (70-105); Osmolality,Calculated 294 (280-300); Potassium 4.1 mEq/L (3.5-5.1); Sodium 139 mEq/L (136-145); eGFR For African Americans > 60 (> 60); eGFR For Non-African Americans > 60 (> 60)
[2017-03-15] MEDS ORDERED: Furosemide 20 MG/2 ML VIAL IVP ONE ×2 (05:36→07:09)
[2017-03-15] MEDS ORDERED: Nitroglycerin 0.4 MG TAB.SUBL SL ONE (05:39)
--- NOTE | 2017-03-15 05:59 | Internal Med History&Physical ---
Date of Encounter: 03/15/17 Time of Encounter: 06:38 Assessment and Plan (1) CHF exacerbation Current visit: No Status: Acute Patient is currently requiring 2 L of oxygen. EKG shows no ischemic changes. EKG showed paced rhythm at a rate of 70s beats per minute. CXR showed mild cardiomegaly with bilateral pleural effusions and pulmonary edema. Crackles are heard bilaterally on lung exam. BNP is elevated as 738. 1. Give additional 20 mg IV lasix now. 20mg of Lasix was given in the ED 2. Strict I&O 3. Daily weights 4. Cardio diet 5. Consider cardio consult if Troponins trend upward Qualifiers: Congestive heart failure type: systolic Qualified Code(s): I50.23 - Acute on chronic systolic (congestive) heart failure (2) Systolic heart failure Current visit: Yes Status: Acute Qualifiers: Heart failure chronicity: acute on chronic Qualified Code(s): I50.23 - Acute on chronic systolic (congestive) heart failure (3) Elevated troponin Current visit: Yes Status: Acute Trend series of troponins. Elevated troponins likely secondary to acute exacerbation of CHF. This is probably his baseline troponins after review of previous labs. (4) A-fib Current visit: Yes Status: Acute Continue Coreg. Qualifiers: Atrial fibrillation type: chronic Qualified Code(s): I48.2 - Chronic atrial fibrillation Internal Medicine - H&P: HPI Chief complaint: Shortness of breath Admitted From: Emergency Dept History of present illness: Mr. Pizarro is a 76 year old male with a past medical history of CHF, diabetes , history of VT, a fib, and hypertension presents to the ED complaining of shortnessof breath that started approximately midnight. The patient states that he was prepared to lie down to go to bed when he noticed some shortness of breath. The patient admits to shortness of breath worsen as he lie flat and improved as he sat up. The patient admits that the shortness of breath felt similar to past episodes. He and its oxygen and sitting is improving his shortness of breath. He denies being on oxygen at home. He denies any history of COPD, DVT, or PE. The patient admits he said some shortness of breath and lower left quadrant abdominal pain. The patient also admits a try and nonproductive cough. The patient states that he noticed a bruise in his left lower quadrant yesterday. He denies any trauma, falls, insulin use, or any objections at the site of the bruise. The patient currently denies any fever, changes in his cough, headache, vision changes, chest pain, difficulty breathing , changes in his bowel movements, blood in his urine, difficulty urinating, numbness and tingling, or any weaknesses. Patient also denies any upper and lower extremities edema. Past Med Surg Social Fam HX - Past Medical History Medical history: asthma, atrial fibrillation, CHF, coronary artery disease, CVA , diabetes, hypertension, myocardial infarction, thyroid disease Psychiatric history: no psych history - Past Surgical History Surgical History: angioplasty/stent, cholecystectomy, coronary bypass (CABG), pacemaker/AICD - Social History Smoking Status: Former smoker Smokeless Tobacco Status: No Alcohol use: none Drug use: none - Family History Grandfather Family Member Ethnicity: Non- Living Status: Hx Family Cardiac Disorders: Yes (VT) Mother Family Member Ethnicity: Non- Living Status: Hx Family Neurologic Disorders: Yes (CVA) Father Adopted: No Family Member Ethnicity: Non- Living Status: Hx Family Cardiac Disorders: No Hx Family Respiratory Disorders: No Hx Family Cancer: Yes (Unknown what type) Hx Family GI Disorders: No Hx Family Endocrine Disorder: No Hx Family Neuromuscular Disorders: No Hx Family Neurologic Disorders: No Hx Family HEENT Disorders: No Hx Family Autoimmune Disorders: No Internal Medicine - H&P: Meds Nitroglycerin [Nitrostat] 0.4 mg SL Q5M PRN 10/01/16 [History] Omeprazole [PriLOSEC] 20 mg PO BIDAC #60 11/04/16 [Rx] Ascorbate Calcium [Vitamin C] 500 mg PO DAILY 11/14/16 [History] Cyanocobalamin (Vitamin B-12) [Vitamin B12] 1,000 mcg PO DAILY 11/14/16 [History ] Multivitamin [One Daily Essential] 1 tab PO DAILY 11/14/16 [History] Aspirin Enteric Coated [Aspirin EC] 81 mg PO DAILY #30 tablet. 12/24/16 [Rx] Atorvastatin [Lipitor] 40 mg PO HS #30 tablet 12/24/16 [Rx] Carvedilol [Coreg] 3.125 mg PO BIDWM 30 Days tab 12/24/16 [Rx] Isosorbide MONOnitrate (24 HR) [Imdur] 120 mg PO DAILY #30 tab 12/24/16 [Rx] Lisinopril [Zestril] 2.5 mg PO DAILY #30 tab 12/24/16 [Rx] Tamsulosin [Flomax] 0.4 mg PO DAILY #30 capsule 12/24/16 [Rx] Ticagrelor [Brilinta] 90 mg PO BID 30 Days tab 12/24/16 [Rx] metFORMIN [Glucophage] 500 mg PO BID #60 tablet 12/24/16 [Rx] Docusate [Colace] 100 mg PO BID PRN #30 capsule 03/05/17 [Rx] Furosemide [Lasix] 40 mg PO BIDDIURETIC #60 tablet 03/05/17 [Rx] HYDROcodone/Acet 5/325 mg [[place] 5-325 mg] 1 tab PO Q6HR PRN #14 tablet [Rx] amLODIPine [Norvasc] 5 mg PO DAILY #30 tab 03/05/17 [Rx] 3 Allergy/AdvReac Type Severity Reaction Status Date / Time Oxycodone [From Percocet] Allergy Hives Verified 01/28/17 05:46 tramadol Allergy Hives Verified 01/28/17 05:46 All Systems PM: A 10-system review of systems was performed and is negative for pertinent findings except as documented above in the HPI. - Constitutional Vitals: Temp Pulse Resp BP Pulse Ox 97.5 F L 77 22 138/82 95 03/15/17 04:50 03/15/17 05:52 03/15/17 05:52 03/15/17 05:52 03/15/17 05:52 - Head Head exam: Present: atraumatic, normocephalic - Eye Eye exam: Present: PERRL, conjuntiva pink, sclera anicteric Pupils: Present: PERRL - Neck Neck exam general surgery: Present: supple, trachea midline. Absent: lymphadenopathy - Respiratory Respiratory exam: Present: rhonchi (crackles and ronchi heard bilaterally in the posterior lungs, especially at the bases.). Absent: accessory muscle use, rales, respiratory distress, wheezes - Expanded Respiratory Exam Location: rales: Left, Right, Upper, Lower - Cardiovascular Cardiovascular exam: Present: RRR, +S1, +S2. Absent: diastolic murmur, gallop, rubs, systolic murmur - GI/Abdominal GI/Abdominal exam: Present: normal bowel sounds, soft, no peritoneal signs. Absent: distended, tenderness Additional comments: A bruise is present on the left lower quadrant. - Extremities Exam Extremities exam: Present: warm, radial pulses palpable and symmetrical. Absent : calf tenderness, cyanotic, pedal edema - Neurological Exam Neurological exam: Present: CN II-XII intact, oriented X3, no focal deficits. Absent: pronater drift, facial droop, speech deficit - Skin Skin exam: Present: dry, intact Internal Med - H&P Results - Labs CBC & Chem 7: 03/15/17 05:02 03/15/17 05:02 Labs: Short CBC 03/15/17 03/15/17 03/15/17 Range/Units 05:02 05:02 05:02 WBC 10.7 (4.3-11.1) K/mcL RBC 5.40 (4.19-5.50) M/mcL Hgb 15.0 (12.9-16.9) g/dL Hct 46.9 (37.5-50.1) % MCV 86.9 (83.0-100.0) fL MCH 27.8 L (28.0-33.3) pg MCHC 32.0 (31.6-35.5) g/dL RDW 14.3 (11.5-14.5) % Plt Count 184 (140-400) K/mcL MPV 10.9 (9.4-12.4) fL Immature Gran % 0.4 (0-4) % Seg Neutrophils % 69.6 % Lymphocytes % 18.0 % Monocytes % 8.4 % Eosinophils % 2.9 % Basophils % 0.7 % Neutrophils # 7.4 (1.6-8.9) K/mcL Lymphocytes # 1.9 (0.6-4.6) K/mcL Monocytes # 0.9 (0.0-1.3) K/mcL Eosinophils # 0.3 (0.0-0.6) K/mcL Basophils # 0.1 (0.0-0.2) K/mcL PT 12.5 H (9.4-12.1) Seconds INR 1.2 APTT 30.1 (26.0-36.0) Seconds Sodium 139 (136-145) mEq/L Potassium 4.1 (3.5-5.1) mEq/L Chloride 105 (98-107) mEq/L Carbon Dioxide 25 (23-29) mEq/L BUN 22 (8-23) mg/dL Creatinine 0.95 (0.70-1.30) mg/dL Est GFR ( Amer) > 60 (> 60) Est GFR (Non-Af Amer) > 60 (> 60) BUN/Creatinine Ratio 23 (6-26) Glucose 152 H (70-105) mg/dL Calculated Osmolality 294 (280-300) Calcium 10.1 (8.6-10.3) mg/dL Troponin I (< 0.04) ng/mL B-Natriuretic Peptide (Less than 100) pg/mL 03/15/17 03/15/17 Range/Units 05:02 05:02 WBC (4.3-11.1) K/mcL RBC (4.19-5.50) M/mcL Hgb (12.9-16.9) g/dL Hct (37.5-50.1) % MCV (83.0-100.0) fL MCH (28.0-33.3) pg MCHC (31.6-35.5) g/dL RDW (11.5-14.5) % Plt Count (140-400) K/mcL MPV (9.4-12.4) fL Immature Gran % (0-4) % Seg Neutrophils % % Lymphocytes % % Monocytes % % Eosinophils % % Basophils % % Neutrophils # (1.6-8.9) K/mcL Lymphocytes # (0.6-4.6) K/mcL Monocytes # (0.0-1.3) K/mcL Eosinophils # (0.0-0.6) K/mcL Basophils # (0.0-0.2) K/mcL PT (9.4-12.1) Seconds INR APTT (26.0-36.0) Seconds Sodium (136-145) mEq/L Potassium (3.5-5.1) mEq/L Chloride (98-107) mEq/L Carbon Dioxide (23-29) mEq/L BUN (8-23) mg/dL Creatinine (0.70-1.30) mg/dL Est GFR ( Amer) (> 60) Est GFR (Non-Af Amer) (> 60) BUN/Creatinine Ratio (6-26) Glucose (70-105) mg/dL Calculated Osmolality (280-300) Calcium (8.6-10.3) mg/dL Troponin I 0.04 H* (< 0.04) ng/mL B-Natriuretic Peptide 738 H (Less than 100) pg/mL BMP 03/15/17 05:02 Sodium 139 Potassium 4.1 Chloride 105 Carbon Dioxide 25 BUN 22 Creatinine 0.95 Glucose 152 H Calcium 10.1 Cardiac Enzymes 03/15/17 Range/Units 05:02 Troponin I 0.04 H* (< 0.04) ng/mL - Impressions ITS Impressions Chest X-Ray 03/15/17 04:56 IMPRESSION: Mild cardiomegaly. Pulmonary edema and small pleural effusions compatible with CHF. D/ / Alaina Lorenz MD / Alaina Lorenz MD Interpreting Provider: Alaina Lorenz MD
[2017-03-15] MEDS ORDERED: Naloxone 0.4 MG/ML INJ IVP PRN (07:00)
[2017-03-15] MEDS ORDERED: Acetaminophen 325 MG TABLET PO PRN (07:00)
[2017-03-15] MEDS ORDERED: Ondansetron ODT 4 MG TAB.RAPDIS SL PRN (07:00)
[2017-03-15] MEDS ORDERED: *HR* Heparin 5,000 UNIT/ML VIAL SQ ONE (07:05)
[2017-03-15] MEDS ORDERED: *HR* HYDROcodone/Acet 5/325 mg TABLET PO PRN (07:07)
[2017-03-15] MEDS ORDERED: Nitroglycerin 0.4 MG TAB.SUBL SL PRN (07:07)
[2017-03-15] MEDS ORDERED: *HR* Dextrose 50 % in Water (Syg) 50 ML SYRINGE IVP PRN (07:09)
[2017-03-15] MEDS ORDERED: Dextrose Gel 15 GM PO PRN ×2 (07:09)
[2017-03-15] MEDS ORDERED: D5% in Water 1,000 ML IVC PRN (07:09)
[2017-03-15] MEDS: Insulin LISPRO 300 UNITS/3 ML VIAL SQ SCH ×5 (08:04→20:19)
[2017-03-15] MEDS: Aspirin Enteric Coated 81 MG Tablet PO SCH (08:13)
[2017-03-15] MEDS: *HR* Ticagrelor 90 MG TABLET PO SCH ×2 (08:13→20:18)
[2017-03-15] MEDS: Cyanocobalamin (B-12) 1,000 MCG TABLET PO SCH (08:13)
[2017-03-15] MEDS: Ascorbic Acid 500 MG TABLET PO SCH (08:13)
[2017-03-15] MEDS: amLODIPine 5 MG TABLET PO SCH (08:13)
[2017-03-15] MEDS: Multivit/Ca/Min/Fe/FA 1 TAB TABLET PO SCH (08:13)
[2017-03-15] MEDS: Isosorbide MONOnitrate (24 HR) 60 MG TAB.ER.24H PO SCH (08:20)
--- NOTE | 2017-03-15 09:57 | Event Note ---
<Nadeem Vanessa - Last Filed: 03/15/17 11:38> Date of Encounter: 03/15/17 Time of Encounter: 08:15 Internal Medicine - Day Team No significant changes since admission. Minimal rales and 1+ pedal edema on physical exam. Troponin stable at baseline. Continue lasix 40 mg IV today, transition to home oral dose <Atul Gardner - Last Filed: 03/15/17 12:33> Date of Encounter: 03/15/17 Seen, agree with plan, as above
[2017-03-15] MEDS: *HR* Heparin 5,000 UNIT/ML VIAL SQ SCH (17:21)
[2017-03-16 04:44] LABS: Basophils # 0.1 K/mcL (0.0-0.2); Basophils % 0.8 %; Eosinophils # 0.4 K/mcL (0.0-0.6); Eosinophils % 3.5 %; Hematocrit 39.4 % (37.5-50.1); Hemoglobin 13.1 g/dL (12.9-16.9); Immature Granulocytes % 0.3 % (0-4); Lymphocytes # 1.1 K/mcL (0.6-4.6); Lymphocytes % 10.9 %; Mean Corpuscular HGB Conc 33.2 g/dL (31.6-35.5); Mean Corpuscular Hemoglobin 28.2 pg (28.0-33.3); Mean Corpuscular Volume 84.9 fL (83.0-100.0); Mean Platelet Volume 11.4 fL (9.4-12.4); Monocytes % 9.6 %; Neutrophils # 7.5 K/mcL (1.6-8.9); Platelet Count 175 K/mcL (140-400); Red Blood Count 4.64 M/mcL (4.19-5.50); Red Cell Distribution Width 14.4 % (11.5-14.5); Segmented Neutrophils % 74.9 %
[2017-03-16 04:47] LABS: INR 1.2; Prothrombin Time 13.2 Seconds (9.4-12.1)
[2017-03-16 05:00] LABS: BUN/Creatinine Ratio 21 (6-26); Blood Urea Nitrogen 21 mg/dL (8-23); Calcium 9.6 mg/dL (8.6-10.3); Carbon Dioxide 28 mEq/L (23-29); Chloride 107 mEq/L (98-107); Glucose 143 mg/dL (70-105); Magnesium 1.8 mg/dL (1.6-2.6); Osmolality,Calculated 295 (280-300); Phosphorous 3.4 mg/dL (2.7-4.5); Potassium 3.9 mEq/L (3.5-5.1); Sodium 140 mEq/L (136-145); eGFR For African Americans > 60 (> 60); eGFR For Non-African Americans > 60 (> 60)
[2017-03-16] MEDS: *HR* Heparin 5,000 UNIT/ML VIAL SQ SCH (06:10)
[2017-03-16] MEDS ORDERED: Furosemide 40 MG/4 ML VIAL IVP SCH (09:00)
[2017-03-16] MEDS: Multivit/Ca/Min/Fe/FA 1 TAB TABLET PO SCH (10:09)
[2017-03-16] MEDS: Aspirin Enteric Coated 81 MG Tablet PO SCH (10:09)
[2017-03-16] MEDS: Isosorbide MONOnitrate (24 HR) 60 MG TAB.ER.24H PO SCH (10:09)
[2017-03-16] MEDS: amLODIPine 5 MG TABLET PO SCH (10:10)
[2017-03-16] MEDS: Cyanocobalamin (B-12) 1,000 MCG TABLET PO SCH (10:10)
[2017-03-16] MEDS: Insulin LISPRO 300 UNITS/3 ML VIAL SQ SCH ×2 (10:10→11:54)
[2017-03-16] MEDS: *HR* Ticagrelor 90 MG TABLET PO SCH (10:10)
[2017-03-16] MEDS: Ascorbic Acid 500 MG TABLET PO SCH (10:11)
[2017-03-16 10:52] VITALS: BP 138/69
--- NOTE | 2017-03-16 13:09 | Discharge Summary ---
<Nadeem Vanessa - Last Filed: 03/16/17 13:06> Date of Encounter: 03/16/17 Time of Encounter: 08:00 - Discharge Diagnosis (1) CHF exacerbation Priority: Primary Status: Acute Comments: Lungs clear. No lower extremity edema. Good oxygenation on room air. Stressed importance of compliance with home medications. Patient is high risk for readmission due to noncompliance. Qualifiers: Congestive heart failure type: systolic Qualified Code(s): I50.23 - Acute on chronic systolic (congestive) heart failure (2) Elevated troponin Priority: Secondary Status: Acute Comments: Patient at baseline (3) Systolic heart failure Priority: Secondary Status: Acute Comments: See plan of care above. Qualifiers: Heart failure chronicity: acute on chronic Qualified Code(s): I50.23 - Acute on chronic systolic (congestive) heart failure (4) A-fib Priority: Secondary Status: Acute Comments: Continue coreg Qualifiers: Atrial fibrillation type: chronic Qualified Code(s): I48.2 - Chronic atrial fibrillation - Discharge Medications Home Medications: Nitroglycerin [Nitrostat] 0.4 mg SL Q5M PRN 10/01/16 [History] Omeprazole [PriLOSEC] 20 mg PO BIDAC #60 11/04/16 [Rx] Ascorbate Calcium [Vitamin C] 500 mg PO DAILY 11/14/16 [History] Cyanocobalamin (Vitamin B-12) [Vitamin B12] 1,000 mcg PO DAILY 11/14/16 [History ] Multivitamin [One Daily Essential] 1 tab PO DAILY 11/14/16 [History] Aspirin Enteric Coated [Aspirin EC] 81 mg PO DAILY #30 tablet. 12/24/16 [Rx] Atorvastatin [Lipitor] 40 mg PO HS #30 tablet 12/24/16 [Rx] Carvedilol [Coreg] 3.125 mg PO BIDWM 30 Days tab 12/24/16 [Rx] Isosorbide MONOnitrate (24 HR) [Imdur] 120 mg PO DAILY #30 tab 12/24/16 [Rx] Lisinopril [Zestril] 2.5 mg PO DAILY #30 tab 12/24/16 [Rx] Tamsulosin [Flomax] 0.4 mg PO DAILY #30 capsule 12/24/16 [Rx] Ticagrelor [Brilinta] 90 mg PO BID 30 Days tab 12/24/16 [Rx] metFORMIN [Glucophage] 500 mg PO BID #60 tablet 12/24/16 [Rx] Docusate [Colace] 100 mg PO BID PRN #30 capsule 03/05/17 [Rx] Furosemide [Lasix] 40 mg PO BIDDIURETIC #60 tablet 03/05/17 [Rx] HYDROcodone/Acet 5/325 mg [[place] 5-325 mg] 1 tab PO Q6HR PRN #14 tablet [Rx] amLODIPine [Norvasc] 5 mg PO DAILY #30 tab 03/05/17 [Rx] Allergies/Adverse Reactions: 3 Allergy/AdvReac Type Severity Reaction Status Date / Time Oxycodone [From Percocet] Allergy Hives Verified 01/28/17 05:46 tramadol Allergy Hives Verified 01/28/17 05:46 Date of admission: 03/15/17 05:53 Primary care physician: Lance Cronin MD Discharging clinician: Nadeem Vanessa Anticipated date of discharge: 03/16/17 - Patient Status Disposition: Home, Self-Care Condition: Fair Functional capacity at discharge: independent ambulation Overall status at discharge: patient is progressing back to baseline - Discharge Instructions Instructions: Heart Failure (DC) Follow Up With: Lance Cronin MD [Primary Care Provider] - (web request sent on 03/16/17) - Diet and Activity Activity: resume usual activities as tolerated Diet: advance to your usual diet Hospital course: Mr. Pizarro is a 76 year old male with a long history of noncompliance was admitted on 03/15/17 with symptoms of CHF exacerbation including SOB, orthopnea , and dry cough. PMH is significant for CHF, D, hx of TN, afib, and HTN. He had some audible crackles and +1 pedal edema. He was treated with IV lasix for 1 day, then transitioned back to his home oral dose. He was given O2 therapy for one day, and today is oxygenating well on room air. Both the crackles and pedal edema have disappeared. The patient was discharged in fair condition. - Time Spent with Patient Total time spent providing and/or coordinating discharge services: - Constitutional Vitals: Temp Pulse Resp BP Pulse Ox 97.3 F L 73 17 138/69 96 03/16/17 10:51 03/16/17 10:51 03/16/17 10:51 03/16/17 10:51 03/16/17 10:51 General appearance: Present: A&O X 3 - Head Head exam: Present: atraumatic, normal inspection, normocephalic - ENT ENT exam: Present: mucous membranes moist - Neck Neck exam general surgery: Present: trachea midline - Respiratory Respiratory exam: Present: CTAB. Absent: accessory muscle use, rales, respiratory distress - Cardiovascular Cardiovascular exam: Present: RRR, +S1, +S2 - GI/Abdominal GI/Abdominal exam: Present: normal bowel sounds, soft, no peritoneal signs. Absent: tenderness - Neurological Exam Additional comments: significantly hard of hearing - Psychiatric Psychiatric exam: Present: normal affect, normal mood - Skin Skin exam: Present: dry, warm <Atul Gardner T - Last Filed: 03/16/17 16:02> Date of Encounter: 03/16/17 Date of admission: 03/15/17 05:53 Primary care physician: Lance Cronin MD Hospital course: Mr. Pizarro is a 76 year old male - Time Spent with Patient Total time spent providing and/or coordinating discharge services: - Constitutional Vitals: Temp Pulse Resp BP Pulse Ox 97.3 F L 73 17 138/69 96 03/16/17 10:51 03/16/17 10:51 03/16/17 10:51 03/16/17 10:51 03/16/17 10:51 - Attending Attestation I have seen and examined this patient on 03/16/17 and discussed plan of care with the patient and resident physician Admitted to observation for CHF exacerbation Due to medical non-compliance, as patient says he ran out of medications He has no evidence of fluid overload, and he is not hypoxic He is ambulatory and stable Safe to discharge laureen Educated extensively on importance of medication compliance Follow up with PCP and cardiology. Rest of details is as in the resident physician's documentation.
--- NOTE | 2017-03-18 07:18 | Electrocardiograph Report ---
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
== END 2017-03-16 13:40 | disposition home or self-care (01) ==
LOC: EMEROO 04:48 → 2ANU 04:48
PROVIDERS: ADMIT Internal Medicine; ATTEND Internal Medicine

== ENCOUNTER 2017-03-29 04:18 | Inpatient (IN) ==
[2017-03-29] MEDS ORDERED: Aspirin 81 MG TAB.CHEW PO ONE (04:25)
[2017-03-29] MEDS ORDERED: Ondansetron 4 MG/2 ML VIAL IVP ONE (04:25)
[2017-03-29] MEDS ORDERED: Nitroglycerin 0.4 MG TAB.SUBL SL ONE (04:25)
--- NOTE | 2017-03-29 04:30 | Emergency Department Note ---
Disposition Clinical Impression: Acute on chronic systolic (congestive) heart failure Disposition: Admitted As Inpatient Condition: Fair Time of Disposition: 05:36 General Adult HPI - General Chief complaint: ED Chest Pain Stated complaint: CP/SOB Time Seen by Provider: 03/29/17 04:23 Source: patient, EMS Mode of arrival: EMS Limitations: no limitations Nursing Notes Reviewed: Yes Vital Signs Reviewed: Yes - History of Present Illness HPI Narrative: Patient is a 68-year-old male with past medical history of coronary artery bypass graft, cardiac stents, and diabetes presenting to the emergency department with a chief complaint of chest pain associated with shortness of breath. The patient states that his chest pain came on suddenly at 1 AM this morning and since that time has been constant. He describes it as a burning chest pain with radiation into his left neck. The pain is constant and made worse with exertion. Associated symptoms include nausea and shortness of breath. Patient states that he took 3 baby aspirin at home at 1:00 AM when the pain started. States his pain is currently a 3/10. Pain Scale: 3 - Related Data Home Medications Medication Instructions Recorded Confirmed Nitroglycerin [Nitrostat] 0.4 mg SL Q5M PRN 10/01/16 03/29/17 Ascorbate Calcium [Vitamin C] 500 mg PO DAILY 11/14/16 03/29/17 Cyanocobalamin (Vitamin B-12) 1,000 mcg PO DAILY 11/14/16 03/29/17 [Vitamin B12] Multivitamin [One Daily Essential] 1 tab PO DAILY 11/14/16 03/29/17 Previous Rx's Medication Instructions Recorded Omeprazole [PriLOSEC] 20 mg PO BIDAC #60 11/04/16 Aspirin Enteric Coated [Aspirin EC] 81 mg PO DAILY #30 tablet. 12/24/16 Atorvastatin [Lipitor] 40 mg PO HS #30 tablet 12/24/16 Carvedilol [Coreg] 3.125 mg PO BIDWM 30 Days tab 12/24/16 Isosorbide MONOnitrate (24 HR) 120 mg PO DAILY #30 tab 12/24/16 [Imdur] Lisinopril [Zestril] 2.5 mg PO DAILY #30 tab 12/24/16 Tamsulosin [Flomax] 0.4 mg PO DAILY #30 capsule 12/24/16 Ticagrelor [Brilinta] 90 mg PO BID 30 Days tab 12/24/16 metFORMIN [Glucophage] 500 mg PO BID #60 tablet 12/24/16 Docusate [Colace] 100 mg PO BID PRN #30 capsule 03/05/17 Furosemide [Lasix] 40 mg PO BIDDIURETIC #60 tablet 03/05/17 HYDROcodone/Acet 5/325 mg [[place] 1 tab PO Q6HR PRN #14 tablet 03/05/17 5-325 mg] amLODIPine [Norvasc] 5 mg PO DAILY #30 tab 03/05/17 Allergies Allergy/AdvReac Type Severity Reaction Status Date / Time Oxycodone [From Percocet] Allergy Hives Verified 03/29/17 04:20 tramadol Allergy Hives Verified 03/29/17 04:20 All systems ED: reviewed and negative except as stated. Review of Systems: As Per HPI Constitutional: Denies: fever, chills ENT ED: Denies: congestion Cardiovascular: Reports: chest pain, dyspnea on exertion. Denies: palpitations , orthopnea, edema, syncope Respiratory: Denies: cough, dyspnea, wheezes Gastrointestinal: Reports: nausea. Denies: abdominal pain, vomiting Musculoskeletal: Denies: back pain, neck pain Integumentary: Denies: rash, abrasion Neurological: Denies: headache, weakness, numbness, paresthesias Past Medical History - Past Medical History Attestation: Yes The following information was validated with the patient. Medical history: Reports: asthma, atrial fibrillation, CHF, coronary artery disease, CVA, diabetes, hypertension, myocardial infarction, thyroid disease Surgical history: Reports: angioplasty/stent, cholecystectomy, coronary bypass ( CABG), pacemaker/AICD Psychiatric history: Reports: no psych history - Social History Smoking Status: Former smoker Smokeless Tobacco Status: No Alcohol use: Reports: none Drug use: Reports: none Physical Exam CONSTITUTIONAL: Well-appearing; well-nourished; A&O X 3, in no apparent distress HEAD: Normocephalic; atraumatic EYES: PERRL, no scleral icterus NOSE: The nose is normal in appearance without rhinorrhea NECK: No JVD or distended neck veins RESP: Normal chest excursion with respiration; breath sounds clear and equal bilaterally; no wheezes, rhonchi, or rales CARD: Regular rhythm, without murmurs, rub or gallop ABD: Non-distended; non-tender, soft, without rigidity, rebound or guarding,no pulsatile mass CHEST: No pain with palpation. Old scar from CABG. SKIN: Normal for age and race; warm and dry without diaphoresis ; no apparent lesions EXTREMITIES: Pulses are 2 plus and equal times 4 extremities, no peripheral edema or calf muscle pain - General Limitations: no limitations General appearance: alert, in no apparent distress Course Course Narrative: Patient is a 68-year-old male with past medical history of several cardiac risk factors including history of CABG, and [facility] performed 10/2016 PCI performed in the RCA. He has a echo that was done on January 022016 which showed a ejection fraction of 35-40%. The patient has also been admitted multiple times in the past 2 months for CHF exacerbation due to noncompliance with medications. Patient states she is unsure if he takes medications for hypertension. He is presenting primarily with chest pain today associated with shortness of breath plan as stated cardiac workup of the patient will check a troponin, EKG, chest x-ray, BNP and also child in patient with nitroglycerin sublingual provide him with full dose of aspirin. - Reevaluation(s) Reevaluation #1: Patient states that his pain improved mildly with the nitroglycerin from a 3 to a 2/10. Plan start the patient on Nitropaste help with his blood pressure and his chest pain. Discussed the patient's case with Dr. De La Cruz. Discussed with the patient's BNP is elevated in the 600s which is increased for him and his chest x-ray does show pulmonary vascular congestion. He was permitted the patient did drop down to the 88% at oxygen sat, pt was placed on 2 L nasal cannula with improvement. A DuoNeb breathing treatment was trial to see if that improves the patient's shortness of breath. Patient will be admitted for acute CHF exacerbation. 40mg IV lasix was ordered. Time: 05:38 Vital Signs Temperature 97.8 F 03/29/17 04:20 Pulse Rate 84 03/29/17 04:20 Respiratory Rate 22 03/29/17 04:20 Blood Pressure 182/105 03/29/17 04:20 O2 Sat by Pulse Oximetry 94 03/29/17 04:20 Temperature 97.9 F 03/30/17 23:54 Pulse Rate 71 03/30/17 23:54 Respiratory Rate 16 03/30/17 23:54 Blood Pressure 106/61 03/30/17 23:54 O2 Sat by Pulse Oximetry 92 03/30/17 23:54 Oxygen Delivery Oxygen Delivery Room Air Medical Decision Making - Medical Records Medical records reviewed: Yes I reviewed the patient's medical records. - Lab Data Lab results reviewed: Yes I reviewed the patient's lab results. Result diagrams: 03/30/17 04:19 03/30/17 04:19 Lab Results 03/29/17 03/29/17 03/29/17 Range/Units 04:25 04:25 04:25 WBC 9.2 (4.3-11.1) K/mcL RBC 5.25 (4.19-5.50) M/mcL Hgb 14.6 (12.9-16.9) g/dL Hct 45.3 (37.5-50.1) % MCV 86.3 (83.0-100.0) fL MCH 27.8 L (28.0-33.3) pg MCHC 32.2 (31.6-35.5) g/dL RDW 15.1 H (11.5-14.5) % Plt Count 176 (140-400) K/mcL MPV 11.4 (9.4-12.4) fL Immature Gran % 0.2 (0-4) % Seg Neutrophils % 72.9 % Lymphocytes % 15.5 % Monocytes % 7.7 % Eosinophils % 2.8 % Basophils % 0.9 % Neutrophils # 6.7 (1.6-8.9) K/mcL Lymphocytes # 1.4 (0.6-4.6) K/mcL Monocytes # 0.7 (0.0-1.3) K/mcL Eosinophils # 0.3 (0.0-0.6) K/mcL Basophils # 0.1 (0.0-0.2) K/mcL PT 12.0 (9.4-12.1) Seconds INR 1.1 APTT 28.2 (26.0-36.0) Seconds Sodium 139 (136-145) mEq/L Potassium 3.9 (3.5-5.1) mEq/L Chloride 107 (98-107) mEq/L Carbon Dioxide 24 (23-29) mEq/L BUN 25 H (8-23) mg/dL Creatinine 1.06 (0.70-1.30) mg/dL Est GFR ( Amer) > 60 (> 60) Est GFR (Non-Af Amer) > 60 (> 60) BUN/Creatinine Ratio 24 (6-26) Glucose 167 H (70-105) mg/dL POC Glucose (58-89) Calculated Osmolality 296 (280-300) Calcium 9.7 (8.6-10.3) mg/dL Magnesium (1.6-2.6) mg/dL Troponin I (< 0.04) ng/mL B-Natriuretic Peptide (Less than 100) pg/mL 03/29/17 03/29/17 03/29/17 Range/Units 04:25 04:25 08:36 WBC (4.3-11.1) K/mcL RBC (4.19-5.50) M/mcL Hgb (12.9-16.9) g/dL Hct (37.5-50.1) % MCV (83.0-100.0) fL MCH (28.0-33.3) pg MCHC (31.6-35.5) g/dL RDW (11.5-14.5) % Plt Count (140-400) K/mcL MPV (9.4-12.4) fL Immature Gran % (0-4) % Seg Neutrophils % % Lymphocytes % % Monocytes % % Eosinophils % % Basophils % % Neutrophils # (1.6-8.9) K/mcL Lymphocytes # (0.6-4.6) K/mcL Monocytes # (0.0-1.3) K/mcL Eosinophils # (0.0-0.6) K/mcL Basophils # (0.0-0.2) K/mcL PT (9.4-12.1) Seconds INR APTT (26.0-36.0) Seconds Sodium (136-145) mEq/L Potassium (3.5-5.1) mEq/L Chloride (98-107) mEq/L Carbon Dioxide (23-29) mEq/L BUN (8-23) mg/dL Creatinine (0.70-1.30) mg/dL Est GFR ( Amer) (> 60) Est GFR (Non-Af Amer) (> 60) BUN/Creatinine Ratio (6-26) Glucose (70-105) mg/dL POC Glucose (58-89) Calculated Osmolality (280-300) Calcium (8.6-10.3) mg/dL Magnesium (1.6-2.6) mg/dL Troponin I 0.03 0.03 (< 0.04) ng/mL B-Natriuretic Peptide 686 H (Less than 100) pg/mL 03/29/17 03/29/17 03/30/17 Range/Units 13:51 18:40 04:19 WBC 10.1 (4.3-11.1) K/mcL RBC 5.48 (4.19-5.50) M/mcL Hgb 15.1 (12.9-16.9) g/dL Hct 46.7 (37.5-50.1) % MCV 85.2 (83.0-100.0) fL MCH 27.6 L (28.0-33.3) pg MCHC 32.3 (31.6-35.5) g/dL RDW 15.2 H (11.5-14.5) % Plt Count 177 (140-400) K/mcL MPV 11.2 (9.4-12.4) fL Immature Gran % 0.2 (0-4) % Seg Neutrophils % 70.6 % Lymphocytes % 15.2 % Monocytes % 9.2 % Eosinophils % 4.0 % Basophils % 0.8 % Neutrophils # 7.2 (1.6-8.9) K/mcL Lymphocytes # 1.5 (0.6-4.6) K/mcL Monocytes # 0.9 (0.0-1.3) K/mcL Eosinophils # 0.4 (0.0-0.6) K/mcL Basophils # 0.1 (0.0-0.2) K/mcL PT (9.4-12.1) Seconds INR APTT (26.0-36.0) Seconds Sodium (136-145) mEq/L Potassium (3.5-5.1) mEq/L Chloride (98-107) mEq/L Carbon Dioxide (23-29) mEq/L BUN (8-23) mg/dL Creatinine (0.70-1.30) mg/dL Est GFR ( Amer) (> 60) Est GFR (Non-Af Amer) (> 60) BUN/Creatinine Ratio (6-26) Glucose (70-105) mg/dL POC Glucose 166 H (58-89) Calculated Osmolality (280-300) Calcium (8.6-10.3) mg/dL Magnesium (1.6-2.6) mg/dL Troponin I 0.04 H* (< 0.04) ng/mL B-Natriuretic Peptide (Less than 100) pg/mL 03/30/17 03/30/17 03/30/17 Range/Units 04:19 04:19 07:57 WBC (4.3-11.1) K/mcL RBC (4.19-5.50) M/mcL Hgb (12.9-16.9) g/dL Hct (37.5-50.1) % MCV (83.0-100.0) fL MCH (28.0-33.3) pg MCHC (31.6-35.5) g/dL RDW (11.5-14.5) % Plt Count (140-400) K/mcL MPV (9.4-12.4) fL Immature Gran % (0-4) % Seg Neutrophils % % Lymphocytes % % Monocytes % % Eosinophils % % Basophils % % Neutrophils # (1.6-8.9) K/mcL Lymphocytes # (0.6-4.6) K/mcL Monocytes # (0.0-1.3) K/mcL Eosinophils # (0.0-0.6) K/mcL Basophils # (0.0-0.2) K/mcL PT (9.4-12.1) Seconds INR APTT (26.0-36.0) Seconds Sodium 141 (136-145) mEq/L Potassium 3.6 (3.5-5.1) mEq/L Chloride 104 (98-107) mEq/L Carbon Dioxide 29 (23-29) mEq/L BUN 22 (8-23) mg/dL Creatinine 1.18 (0.70-1.30) mg/dL Est GFR ( Amer) > 60 (> 60) Est GFR (Non-Af Amer) 60 (> 60) BUN/Creatinine Ratio 19 (6-26) Glucose 114 H (70-105) mg/dL POC Glucose 122 H (58-89) Calculated Osmolality 296 (280-300) Calcium 9.8 (8.6-10.3) mg/dL Magnesium 1.9 (1.6-2.6) mg/dL Troponin I (< 0.04) ng/mL B-Natriuretic Peptide 475 H (Less than 100) pg/mL 03/30/17 Range/Units 12:24 WBC (4.3-11.1) K/mcL RBC (4.19-5.50) M/mcL Hgb (12.9-16.9) g/dL Hct (37.5-50.1) % MCV (83.0-100.0) fL MCH (28.0-33.3) pg MCHC (31.6-35.5) g/dL RDW (11.5-14.5) % Plt Count (140-400) K/mcL MPV (9.4-12.4) fL Immature Gran % (0-4) % Seg Neutrophils % % Lymphocytes % % Monocytes % % Eosinophils % % Basophils % % Neutrophils # (1.6-8.9) K/mcL Lymphocytes # (0.6-4.6) K/mcL Monocytes # (0.0-1.3) K/mcL Eosinophils # (0.0-0.6) K/mcL Basophils # (0.0-0.2) K/mcL PT (9.4-12.1) Seconds INR APTT (26.0-36.0) Seconds Sodium (136-145) mEq/L Potassium (3.5-5.1) mEq/L Chloride (98-107) mEq/L Carbon Dioxide (23-29) mEq/L BUN (8-23) mg/dL Creatinine (0.70-1.30) mg/dL Est GFR ( Amer) (> 60) Est GFR (Non-Af Amer) (> 60) BUN/Creatinine Ratio (6-26) Glucose (70-105) mg/dL POC Glucose 195 H (58-89) Calculated Osmolality (280-300) Calcium (8.6-10.3) mg/dL Magnesium (1.6-2.6) mg/dL Troponin I (< 0.04) ng/mL B-Natriuretic Peptide (Less than 100) pg/mL - Radiology Data Radiology results reviewed: Yes I reviewed the patient's radiology results. Chest X-Ray 03/29/17 04:25 IMPRESSION: Findings suggestive of cardiomegaly and mild pulmonary interstitial edema. . D/ / Joss Holguin MD / Joss Holguin MD Interpreting Provider: Joss Holguin MD - EKG Data EKG #1 EKG attestation: Yes I reviewed and interpreted this EKG. EKG results narrative: EKG done at 4:24 shows a ventricular paced rhythm at 83 bpm and it is unchanged from the EKG March 152016 Attestation Statement - Attestation Attestation: I, Manjeet Woody DO, examined this patient [id number] and my medical decision-making was reviewed with Dr. Tarun Goodman, Resident Physician. I agree with the documented findings, disposition and treatment plan as described except to the extent set forth below. Please see my progress notes for details. 70-year-old male presents to the emergency room. Patient is very well known to this facility. Patient presents almost weekly for similar issues. He is noncompliant with his medications at home. He has long-standing cardiac disease including congestive heart failure and angina equivalence. Patient presentation is describing midsternal chest discomfort with a burning sensation. He denies it as being similar to his previous myocardial infarction as well as his acid reflux. Physical exam is otherwise unremarkable. Lungs are clear heart is regular abdomen is soft. Pacemaker is in place with no acute signs redness swelling or irritation of the site. Abdomen soft without tenderness. No guarding no rigidity and no peritoneal symptoms. Patient was at 4 extremities. Detailed evaluation for cardiac and pulmonary associates will be established. Aspirin will be given as needed. EKG collected showing paced rhythm with no acute signs of ST segment elevation or change from previous EKG less than 1 month ago. Patient will be observed until definitive management is established. See detailed documentation of the physical exam, medical intervention, medical decision-making and disposition and the resident physician's note. 0535 Patient has mildly elevated BNP. Chest x-ray does show persistent pulmonary congestion. Patient said describing some chest tightness and shortness of breath. Breathing treatments providing he said he feels a little bit better. IV Lasix started this time to help with what appears to be fluid overloaded causing intermittent hypoxia and shortness of breath. EKG is stable. Patient will require further evaluation and serial troponins. Patient was informed of this and comfortable the plan. Hospitalist contacted for admission.
[2017-03-29 04:44] LABS: Basophils # 0.1 K/mcL (0.0-0.2); Basophils % 0.9 %; Eosinophils # 0.3 K/mcL (0.0-0.6); Eosinophils % 2.8 %; Hematocrit 45.3 % (37.5-50.1); Hemoglobin 14.6 g/dL (12.9-16.9); Immature Granulocytes % 0.2 % (0-4); Lymphocytes # 1.4 K/mcL (0.6-4.6); Lymphocytes % 15.5 %; Mean Corpuscular HGB Conc 32.2 g/dL (31.6-35.5); Mean Corpuscular Hemoglobin 27.8 pg (28.0-33.3); Mean Corpuscular Volume 86.3 fL (83.0-100.0); Mean Platelet Volume 11.4 fL (9.4-12.4); Monocytes # 0.7 K/mcL (0.0-1.3); Monocytes % 7.7 %; Neutrophils # 6.7 K/mcL (1.6-8.9); Platelet Count 176 K/mcL (140-400); Red Blood Count 5.25 M/mcL (4.19-5.50); Red Cell Distribution Width 15.1 % (11.5-14.5); Segmented Neutrophils % 72.9 %
[2017-03-29 04:48] LABS: INR 1.1
[2017-03-29 04:51] LABS: Activated Partial Thrombo Time 28.2 Seconds (26.0-36.0)
[2017-03-29] MEDS ORDERED: Furosemide 40 MG/4 ML VIAL IVP ONE (04:57)
[2017-03-29 05:01] LABS: BUN/Creatinine Ratio 24 (6-26); Blood Urea Nitrogen 25 mg/dL (8-23); Calcium 9.7 mg/dL (8.6-10.3); Carbon Dioxide 24 mEq/L (23-29); Chloride 107 mEq/L (98-107); Glucose 167 mg/dL (70-105); Osmolality,Calculated 296 (280-300); Potassium 3.9 mEq/L (3.5-5.1); Sodium 139 mEq/L (136-145); eGFR For African Americans > 60 (> 60); eGFR For Non-African Americans > 60 (> 60)
[2017-03-29] MEDS ORDERED: Ipratropium/Albuterol Neb 3 ML IH ONE (05:13)
[2017-03-29] MEDS ORDERED: Nitroglycerin 1 INCH/GM PACKET TP ONE (05:30)
[2017-03-29] MEDS ORDERED: *HR* Promethazine 25 MG/ML VIAL IVP PRN (08:09)
[2017-03-29] MEDS ORDERED: Naloxone 0.4 MG/ML INJ IVP PRN (08:09)
[2017-03-29] MEDS ORDERED: Ondansetron 4 MG/2 ML VIAL IVP PRN (08:09)
[2017-03-29] MEDS ORDERED: *HR* Morphine 2 MG/ML SYRINGE IVP PRN (08:09)
[2017-03-29] MEDS ORDERED: Nitroglycerin 0.4 MG TAB.SUBL SL PRN (08:12)
--- NOTE | 2017-03-29 18:21 | Internal Med History&Physical ---
Date of Encounter: 03/29/17 Time of Encounter: 08:00 Assessment and Plan (1) Chest pain Current visit: No Status: Acute Will place the pt into tele for observation his CP mostly due to CHF exacerbation Reviewed CXR showed inc vascular congestion Troponin negative so far will place the pt on manager monitoring trend on troponin EKG showed paced rhythm, no changes from previous EKG. Cont ASA + Brilinta , Sttain, B fuentes and Morphine PRN Qualifiers: Chest pain type: unspecified Qualified Code(s): R07.9 - Chest pain, unspecified (2) Acute on chronic systolic (congestive) heart failure Current visit: Yes Status: Acute Reviewed Echo form last visit showed LVEF 40% started on IV diuresis with Lasix 40 BID counseled to be compliance with meds (3) Hypertension Current visit: No Status: Chronic resume home medications Qualifiers: Hypertension type: essential hypertension Qualified Code(s): I10 - Essential (primary) hypertension (4) Paroxysmal a-fib Current visit: No Status: Chronic rate controlled with current meds for anti coag.. His Xarelto was stopped in the past due to hematuria.. asked to f/u with PCP and Card to resume his Xarelto (5) Diabetes mellitus Current visit: No Status: Chronic resumed home meds Qualifiers: Diabetes mellitus type: type 2 Diabetes mellitus complication status: without complication Diabetes mellitus chcf insulin use: without lobsterman use Qualified Code(s): E11.9 - Type 2 diabetes mellitus without complications Internal Medicine - H&P: HPI Chief complaint: Shortness of breath Admitted From: Emergency Dept Plans for Post Hospital Care: Home History of present illness: Mr. Pizarro is a 76 year old male with past medical history significant for CAD , s/p CABG 2V in 2002, s/p PCI to the RCA, ICMP, PPM for bradycardia, HTN, PAF, HLD, non-compliance and had multiple hospitalization with CHF exacerbation pt presented to the ER for increasing dyspnea and intermittent chest heaviness since last night. He did c/o worsening swelling in both legs, SOB, ELENA and Orthopnea. He stopped taking lasix from last 5-7 days since he ran out of prescription as per pt. He was given IV lasix in the ER, now he feels better. Past Med Surg Social Fam HX - Past Medical History Medical history: asthma, atrial fibrillation, CHF, coronary artery disease, CVA , diabetes, hypertension, myocardial infarction, thyroid disease Psychiatric history: no psych history - Past Surgical History Surgical History: angioplasty/stent, cholecystectomy, coronary bypass (CABG), pacemaker/AICD - Social History Smoking Status: Former smoker Smokeless Tobacco Status: No Alcohol use: none Drug use: none - Family History Grandfather Family Member Ethnicity: Non- Living Status: Hx Family Cardiac Disorders: Yes (AL) Mother Family Member Ethnicity: Non- Living Status: Hx Family Neurologic Disorders: Yes (CVA) Father Adopted: No Family Member Ethnicity: Non- Living Status: Hx Family Cardiac Disorders: No Hx Family Respiratory Disorders: No Hx Family Cancer: Yes (Unknown what type) Hx Family GI Disorders: No Hx Family Endocrine Disorder: No Hx Family Neuromuscular Disorders: No Hx Family Neurologic Disorders: No Hx Family HEENT Disorders: No Hx Family Autoimmune Disorders: No Internal Medicine - H&P: Meds Nitroglycerin [Nitrostat] 0.4 mg SL Q5M PRN 10/01/16 [History] Omeprazole [PriLOSEC] 20 mg PO BIDAC #60 11/04/16 [Rx] Ascorbate Calcium [Vitamin C] 500 mg PO DAILY 11/14/16 [History] Cyanocobalamin (Vitamin B-12) [Vitamin B12] 1,000 mcg PO DAILY 11/14/16 [History ] Multivitamin [One Daily Essential] 1 tab PO DAILY 11/14/16 [History] Aspirin Enteric Coated [Aspirin EC] 81 mg PO DAILY #30 tablet. 12/24/16 [Rx] Atorvastatin [Lipitor] 40 mg PO HS #30 tablet 12/24/16 [Rx] Carvedilol [Coreg] 3.125 mg PO BIDWM 30 Days tab 12/24/16 [Rx] Isosorbide MONOnitrate (24 HR) [Imdur] 120 mg PO DAILY #30 tab 12/24/16 [Rx] Lisinopril [Zestril] 2.5 mg PO DAILY #30 tab 12/24/16 [Rx] Tamsulosin [Flomax] 0.4 mg PO DAILY #30 capsule 12/24/16 [Rx] Ticagrelor [Brilinta] 90 mg PO BID 30 Days tab 12/24/16 [Rx] metFORMIN [Glucophage] 500 mg PO BID #60 tablet 12/24/16 [Rx] Docusate [Colace] 100 mg PO BID PRN #30 capsule 03/05/17 [Rx] Furosemide [Lasix] 40 mg PO BIDDIURETIC #60 tablet 03/05/17 [Rx] HYDROcodone/Acet 5/325 mg [[place] 5-325 mg] 1 tab PO Q6HR PRN #14 tablet [Rx] amLODIPine [Norvasc] 5 mg PO DAILY #30 tab 03/05/17 [Rx] 3 Allergy/AdvReac Type Severity Reaction Status Date / Time Oxycodone [From Percocet] Allergy Hives Verified 03/29/17 04:20 tramadol Allergy Hives Verified 03/29/17 04:20 All Systems PM: A 10-system review of systems was performed and is negative for pertinent findings except as documented above in the HPI. Review of systems: all systems reviewed everything is benign except the systems and symptoms I mentioned in HPI. - Constitutional Vitals: Temp Pulse Resp BP Pulse Ox 97.6 F 70 20 145/96 97 03/29/17 15:23 03/29/17 15:23 03/29/17 15:23 03/29/17 15:23 03/29/17 15:23 General appearance: Present: A&O X 3, no acute distress - Head Head exam: Present: atraumatic, normal inspection - Neck Neck exam general surgery: Present: supple - Respiratory Respiratory exam: Present: decreased breath sounds, rales (+ Mild). Absent: respiratory distress, rhonchi, wheezes - Cardiovascular Cardiovascular exam: Present: RRR, +S1, +S2 - GI/Abdominal GI/Abdominal exam: Present: normal bowel sounds, soft. Absent: rebound, rigid, tenderness - Extremities Exam Extremities exam: Present: pedal edema. Absent: calf tenderness, tenderness - Back Exam Back exam: Absent: CVA tenderness (L), CVA tenderness (R) - Psychiatric Psychiatric exam: Present: normal affect, normal mood Internal Med - H&P Results - Labs CBC & Chem 7: 03/30/17 04:19 03/30/17 04:19 Labs: Cardiac Enzymes 03/29/17 03/29/17 Range/Units 08:36 13:51 Troponin I 0.03 0.04 H* (< 0.04) ng/mL
[2017-03-29] MEDS: *HR* Metformin 500 MG TABLET PO SCH ×2 (20:00→20:22)
[2017-03-29] MEDS: Isosorbide MONOnitrate (24 HR) 60 MG TAB.ER.24H PO SCH (20:00)
[2017-03-29] MEDS: *HR* Ticagrelor 90 MG TABLET PO SCH ×2 (20:00→20:21)
[2017-03-29] MEDS: Aspirin Enteric Coated 81 MG Tablet PO SCH (20:00)
[2017-03-29] MEDS: amLODIPine 5 MG TABLET PO SCH (20:01)
[2017-03-29] MEDS: Multivit/Ca/Min/Fe/FA 1 TAB TABLET PO SCH (20:01)
[2017-03-29] MEDS: Furosemide 40 MG/4 ML VIAL IVP SCH ×2 (20:01→20:19)
[2017-03-29] MEDS: Cyanocobalamin (B-12) 1,000 MCG TABLET PO SCH (20:01)
[2017-03-29] MEDS: Ascorbic Acid 500 MG TABLET PO SCH (20:02)
--- NOTE | 2017-03-29 20:09 | Electrocardiograph Report ---
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
[2017-03-30] MEDS: Acetaminophen 325 MG TABLET PO PRN (01:10)
[2017-03-30 05:32] LABS: Basophils # 0.1 K/mcL (0.0-0.2); Basophils % 0.8 %; Eosinophils # 0.4 K/mcL (0.0-0.6); Hematocrit 46.7 % (37.5-50.1); Hemoglobin 15.1 g/dL (12.9-16.9); Immature Granulocytes % 0.2 % (0-4); Lymphocytes # 1.5 K/mcL (0.6-4.6); Lymphocytes % 15.2 %; Mean Corpuscular HGB Conc 32.3 g/dL (31.6-35.5); Mean Corpuscular Hemoglobin 27.6 pg (28.0-33.3); Mean Corpuscular Volume 85.2 fL (83.0-100.0); Mean Platelet Volume 11.2 fL (9.4-12.4); Monocytes # 0.9 K/mcL (0.0-1.3); Monocytes % 9.2 %; Neutrophils # 7.2 K/mcL (1.6-8.9); Platelet Count 177 K/mcL (140-400); Red Blood Count 5.48 M/mcL (4.19-5.50); Red Cell Distribution Width 15.2 % (11.5-14.5); Segmented Neutrophils % 70.6 %
[2017-03-30 05:56] LABS: BUN/Creatinine Ratio 19 (6-26); Blood Urea Nitrogen 22 mg/dL (8-23); Calcium 9.8 mg/dL (8.6-10.3); Carbon Dioxide 29 mEq/L (23-29); Chloride 104 mEq/L (98-107); Glucose 114 mg/dL (70-105); Magnesium 1.9 mg/dL (1.6-2.6); Osmolality,Calculated 296 (280-300); Potassium 3.6 mEq/L (3.5-5.1); Sodium 141 mEq/L (136-145); eGFR For African Americans > 60 (> 60); eGFR For Non-African Americans 60 (> 60)
[2017-03-30] MEDS: Ascorbic Acid 500 MG TABLET PO SCH (08:13)
[2017-03-30] MEDS: *HR* Metformin 500 MG TABLET PO SCH ×2 (08:13→20:04)
[2017-03-30] MEDS: Furosemide 40 MG/4 ML VIAL IVP SCH ×3 (08:13→20:34)
[2017-03-30] MEDS: *HR* Ticagrelor 90 MG TABLET PO SCH ×2 (08:13→20:04)
[2017-03-30] MEDS: Aspirin Enteric Coated 81 MG Tablet PO SCH (08:13)
[2017-03-30] MEDS: Cyanocobalamin (B-12) 1,000 MCG TABLET PO SCH (08:14)
[2017-03-30] MEDS: amLODIPine 5 MG TABLET PO SCH (08:14)
[2017-03-30] MEDS: Multivit/Ca/Min/Fe/FA 1 TAB TABLET PO SCH (08:14)
[2017-03-30] MEDS: Isosorbide MONOnitrate (24 HR) 60 MG TAB.ER.24H PO SCH (08:14)
--- NOTE | 2017-03-30 12:07 | Electrocardiograph Report ---
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
--- NOTE | 2017-03-30 17:26 | Internal Med Progress Note ---
Date of Encounter: 03/30/17 Time of Encounter: 11:00 - Assessment and plan (1) Chest pain Current Visit: No Status: Acute Assessment and plan: So far negative troponin Mostly due to CHF exacerbation improved now Cont IV diuresis Cont ASA + Brilinta , Sttain, B fuentes and Morphine PRN Qualifiers: Chest pain type: unspecified Qualified Code(s): R07.9 - Chest pain, unspecified (2) Acute respiratory failure with hypoxia Current Visit: Yes Status: Acute Assessment and plan: Mostly due to CHF exacerbation He may need hoe O2 eval cont IV lasix He is still high risk for resp failure , need close monitoring He does need to stay in the hospital more than 2 nights, so will change him to full admission today (3) Acute on chronic systolic (congestive) heart failure Current Visit: Yes Status: Acute Assessment and plan: Reviewed Echo form last visit showed LVEF 40% Cont IV diuresis with Lasix 40 BID Strict I & O counseled to be compliance with meds Will consult SW to help the pt regarding his medications miramontes (4) Hypertension Current Visit: No Status: Chronic Assessment and plan: stable with current meds Qualifiers: Hypertension type: essential hypertension Qualified Code(s): I10 - Essential (primary) hypertension (5) Paroxysmal a-fib Current Visit: No Status: Chronic Assessment and plan: rate controlled for anti coag.. His Xarelto was stopped in the past due to hematuria.. asked to f/u with PCP and Card to resume his Xarelto (6) Diabetes mellitus Current Visit: No Status: Chronic Assessment and plan: resumed home meds Qualifiers: Diabetes mellitus type: type 2 Diabetes mellitus complication status: without complication Diabetes mellitus alf insulin use: without alf use Qualified Code(s): E11.9 - Type 2 diabetes mellitus without complications - Subjective Interval history: Mr. Pizarro is a 76 year old male with past medical history significant for CAD , s/p CABG 2V in 2002, s/p PCI to the RCA, ICMP, PPM for bradycardia, HTN, PAF, HLD, non-compliance and had multiple hospitalization with CHF exacerbation pt presented to the ER for increasing dyspnea and intermittent chest heaviness since last night. He did c/o worsening swelling in both legs, SOB, ELENA and Orthopnea. He stopped taking lasix from last 5-7 days since he ran out of prescription as per pt. He was admitted here for acute hypoxic resp failure and CHF exacerbation. He is feeling better now. Still on 2 lit O2. Denied any CP. No fever no cough / no URI symptoms - Constitutional Vitals: Temp Pulse Resp BP Pulse Ox 97.6 F 73 15 99/59 94 03/30/17 16:18 03/30/17 16:18 03/30/17 16:18 03/30/17 16:18 03/30/17 16:18 General appearance: Present: A&O X 3, no acute distress - Head Head exam: Present: atraumatic, normal inspection - Neck Neck exam general surgery: Present: supple - Respiratory Respiratory exam: Present: decreased breath sounds, rales (mild). Absent: respiratory distress, rhonchi, wheezes - Cardiovascular Cardiovascular exam: Present: RRR, +S1, +S2. Absent: tachycardia - GI/Abdominal GI/Abdominal exam: Present: normal bowel sounds, soft. Absent: rebound, rigid, tenderness - Extremities Exam Extremities exam: Present: pedal edema (trace). Absent: calf tenderness, tenderness - Back Exam Back exam: Absent: CVA tenderness (L), CVA tenderness (R) - Neurological Exam Neurological exam: Present: alert, oriented X3 - Psychiatric Psychiatric exam: Present: normal affect, normal mood Internal Medicine: Result - Labs CBC & Chem 7: 03/30/17 04:19 03/30/17 04:19 Labs: Short CBC 03/30/17 Range/Units 04:19 WBC 10.1 (4.3-11.1) K/mcL Hgb 15.1 (12.9-16.9) g/dL Hct 46.7 (37.5-50.1) % Plt Count 177 (140-400) K/mcL Neutrophils # 7.2 (1.6-8.9) K/mcL BMP 03/30/17 04:19 Sodium 141 Potassium 3.6 Chloride 104 Carbon Dioxide 29 BUN 22 Creatinine 1.18 Glucose 114 H Calcium 9.8 - ABG Interpretation ABG results: PT/INR, D-dimer PT 12.0 Seconds (9.4-12.1) 03/29/17 04:25 Consult Discharge Plan - Plan Referrals: Lance Cronin MD [Primary Care Provider] - 04/05/17 10:15 am
[2017-03-31 05:42] LABS: Calcium 9.6 mg/dL (8.6-10.3); Magnesium 1.9 mg/dL (1.6-2.6); Potassium 3.5 mEq/L (3.5-5.1)
[2017-03-31] MEDS ORDERED: *HR* Enoxaparin 40 MG/0.4 ML SYRINGE SQ SCH (06:00)
[2017-03-31] MEDS: *HR* Ticagrelor 90 MG TABLET PO SCH (09:20)
[2017-03-31] MEDS: Multivit/Ca/Min/Fe/FA 1 TAB TABLET PO SCH (09:20)
[2017-03-31] MEDS: Cyanocobalamin (B-12) 1,000 MCG TABLET PO SCH (09:20)
[2017-03-31] MEDS: amLODIPine 5 MG TABLET PO SCH (09:20)
[2017-03-31] MEDS: *HR* Metformin 500 MG TABLET PO SCH (09:21)
[2017-03-31] MEDS: Ascorbic Acid 500 MG TABLET PO SCH (09:21)
[2017-03-31] MEDS: Aspirin Enteric Coated 81 MG Tablet PO SCH (09:21)
[2017-03-31] MEDS: Isosorbide MONOnitrate (24 HR) 60 MG TAB.ER.24H PO SCH (09:25)
[2017-03-31] MEDS: Furosemide 40 MG/4 ML VIAL IVP SCH (09:33)
[2017-03-31 10:44] VITALS: BP 109/59
--- NOTE | 2017-03-31 12:57 | Discharge Summary ---
Date of Encounter: 03/31/17 Time of Encounter: 12:52 - Discharge Diagnosis (1) Chest pain Priority: Primary Status: Acute Qualifiers: Chest pain type: unspecified Qualified Code(s): R07.9 - Chest pain, unspecified (2) Acute respiratory failure with hypoxia Priority: Primary Status: Acute (3) Acute on chronic systolic (congestive) heart failure Priority: Primary Status: Acute (4) Hypertension Priority: Secondary Status: Chronic Qualifiers: Hypertension type: essential hypertension Qualified Code(s): I10 - Essential (primary) hypertension (5) Paroxysmal a-fib Priority: Secondary Status: Chronic (6) Diabetes mellitus Priority: Secondary Status: Chronic Qualifiers: Diabetes mellitus type: type 2 Diabetes mellitus complication status: without complication 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 insulin use: without termite technician use Qualified Code(s): E11.9 - Type 2 diabetes mellitus without complications - Discharge Medications Prescriptions: Furosemide [Lasix] 20 mg PO BIDDIURETIC #60 tablet Home Medications: Nitroglycerin [Nitrostat] 0.4 mg SL Q5M PRN 10/01/16 [History] Omeprazole [PriLOSEC] 20 mg PO BIDAC #60 11/04/16 [Rx] Ascorbate Calcium [Vitamin C] 500 mg PO DAILY 11/14/16 [History] Cyanocobalamin (Vitamin B-12) [Vitamin B12] 1,000 mcg PO DAILY 11/14/16 [History ] Multivitamin [One Daily Essential] 1 tab PO DAILY 11/14/16 [History] Aspirin Enteric Coated [Aspirin EC] 81 mg PO DAILY #30 tablet. 12/24/16 [Rx] Atorvastatin [Lipitor] 40 mg PO HS #30 tablet 12/24/16 [Rx] Carvedilol [Coreg] 3.125 mg PO BIDWM 30 Days tab 12/24/16 [Rx] Isosorbide MONOnitrate (24 HR) [Imdur] 120 mg PO DAILY #30 tab 12/24/16 [Rx] Lisinopril [Zestril] 2.5 mg PO DAILY #30 tab 12/24/16 [Rx] Tamsulosin [Flomax] 0.4 mg PO DAILY #30 capsule 12/24/16 [Rx] Ticagrelor [Brilinta] 90 mg PO BID 30 Days tab 12/24/16 [Rx] metFORMIN [Glucophage] 500 mg PO BID #60 tablet 12/24/16 [Rx] Docusate [Colace] 100 mg PO BID PRN #30 capsule 03/05/17 [Rx] HYDROcodone/Acet 5/325 mg [[place] 5-325 mg] 1 tab PO Q6HR PRN #14 tablet [Rx] Furosemide [Lasix] 20 mg PO BIDDIURETIC #60 tablet 03/31/17 [Rx] Allergies/Adverse Reactions: 3 Allergy/AdvReac Type Severity Reaction Status Date / Time Oxycodone [From Percocet] Allergy Hives Verified 03/29/17 04:20 tramadol Allergy Hives Verified 03/29/17 04:20 Procedures/tests Complete & Pending: Procedures Performed prior 72 hours Category Date Time Status ECG 12 lead ECG [ECG] Stat Y 03/31/17 09:46 Completed Date of admission: 03/30/17 18:58 Primary care physician: Lance Cronin MD Consults: 03/31/17 09:46 Consult to Cardiology [CONS] Routine Comment: Consulting Provider: Amandeep Walker Reason for Consult: Acute chest pain Call Completed: Yes - Patient Status Disposition: Home, Self-Care Condition: Good Overall status at discharge: patient is back to baseline - Discharge Instructions Instructions: Cardiac Stress Test (DC), Chronic Hypertension (DC) Follow Up With: Amandeep Walker [Provider Group] Lance Cronin MD [Primary Care Provider] - 04/05/17 10:15 am Additional Instructions: f/u with Cardiology as scheduled Keep taking Lasix 20mg PO BID Keep checking your weight every day, if you gained more than 2 lbs, take an extra lasix and call your PCP and Cardiology - Diet and Activity Activity: increase activity as tolerated, wear oxygen at all times Diet: low salt diet Hospital course: Mr. Pizarro is a 76 year old male with past medical history significant for CAD , s/p CABG 2V in 2002, s/p PCI to the RCA, ICMP, PPM for bradycardia, HTN, PAF, HLD, non-compliance and had multiple hospitalization with CHF exacerbation pt presented to the ER for increasing dyspnea and intermittent chest heaviness since last night. He did c/o worsening swelling in both legs, SOB, ELENA and Orthopnea. He stopped taking lasix from last 5-7 days since he ran out of prescription as per pt. He was admitted here for acute hypoxic resp failure and CHF exacerbation. He was started on aggressive IV diuresis with Lasix 40mg IV BID. He was placed on legal examiner and checked serial troponin which were negative. He did c/o intermittent atypical CP, with no acute ischemic EKG changes. Pt was evaluated by Card recommend an out pt stress test, which is going to scheduled by Cardiology. He does have acute hypoxic resp failure, mostly due to CHF exacerbation. He has Home O2 evaluation done, required 2 lit continuous O2 supply. Since pt is very active , he does need portable O2 tank too. Since pt is non compliance with medication I counseled him about importance of taking all his medication regularly. We are going to get his Lasix Rx filled here through our pharmacy before he goes home. - Time Spent with Patient Total time spent providing and/or coordinating discharge services: - Constitutional Vitals: Temp Pulse Resp BP Pulse Ox 98.3 F 74 16 109/59 95 03/31/17 10:42 03/31/17 10:42 03/31/17 10:42 03/31/17 10:42 03/31/17 06:42 General appearance: Present: A&O X 3, no acute distress - Head Head exam: Present: atraumatic, normal inspection - Neck Neck exam general surgery: Present: supple - Respiratory Respiratory exam: Present: decreased breath sounds, wheezes (mild). Absent: rales, respiratory distress, rhonchi - Cardiovascular Cardiovascular exam: Present: RRR, +S1, +S2 - GI/Abdominal GI/Abdominal exam: Present: normal bowel sounds, soft. Absent: rebound, rigid - Extremities Exam Extremities exam: Present: pedal edema (trace... improved). Absent: calf tenderness, tenderness - Back Exam Back exam: Absent: CVA tenderness (L), CVA tenderness (R) - Psychiatric Psychiatric exam: Present: normal affect, normal mood
[2017-03-31] MEDS: Acetaminophen 325 MG TABLET PO PRN (14:52)
--- NOTE | 2017-03-31 15:13 | Electrocardiograph Report ---
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
[2017-03-31] MEDS ORDERED: Furosemide 20 MG TABLET PO SCH (17:00)
--- NOTE | 2017-04-01 12:22 | Electrocardiograph Report ---
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
== END 2017-03-31 15:44 | disposition home or self-care (01) | DRG 291 ==
LOC: 2NENU 04:18 → EMEROO 04:18 → 2NENU 08:53 → 3BNU 15:07 → SUATTDRO 03-30 18:58
PROVIDERS: ADMIT Internal Medicine; ATTEND Family Medicine

== ENCOUNTER 2017-04-13 21:30 | Observation (INO) ==
[2017-04-13 22:01] LABS: Basophils # 0.1 K/mcL (0.0-0.2); Basophils % 0.5 %; Eosinophils # 0.2 K/mcL (0.0-0.6); Eosinophils % 2.3 %; Hematocrit 40.9 % (37.5-50.1); Hemoglobin 13.4 g/dL (12.9-16.9); Immature Granulocytes % 0.3 % (0-4); Lymphocytes # 1.8 K/mcL (0.6-4.6); Lymphocytes % 19.6 %; Mean Corpuscular HGB Conc 32.8 g/dL (31.6-35.5); Mean Corpuscular Hemoglobin 27.9 pg (28.0-33.3); Mean Corpuscular Volume 85.2 fL (83.0-100.0); Mean Platelet Volume 10.5 fL (9.4-12.4); Monocytes # 0.7 K/mcL (0.0-1.3); Monocytes % 7.7 %; Neutrophils # 6.4 K/mcL (1.6-8.9); Platelet Count 196 K/mcL (140-400); Red Cell Distribution Width 14.7 % (11.5-14.5); Segmented Neutrophils % 69.6 %
[2017-04-13 22:18] LABS: BUN/Creatinine Ratio 25 (6-26); Blood Urea Nitrogen 25 mg/dL (8-23); Calcium 9.8 mg/dL (8.6-10.3); Carbon Dioxide 25 mEq/L (23-29); Chloride 106 mEq/L (98-107); Glucose 126 mg/dL (70-105); Osmolality,Calculated 294 (280-300); Potassium 3.5 mEq/L (3.5-5.1); Sodium 139 mEq/L (136-145); eGFR For African Americans > 60 (> 60); eGFR For Non-African Americans > 60 (> 60)
--- NOTE | 2017-04-13 22:20 | Emergency Department Note ---
START Narrative - START START: I examined this patient and my medical decision-making was reviewed with the Resident Physician. I agree with the documented findings, disposition and treatment plan as described except to the extent set forth below. 76-year-old male presents emergency room for chest pain. Patient has multiple visits to the ER for same complaint. He states nitroglycerin never helps with this pain. He appears well at this time. EKG was nondiagnostic. Vitals are stable. We will do an ACS evaluation here in the ER. Anticipate discharge home if labs are negative.
[2017-04-13] MEDS ORDERED: Furosemide 40 MG/4 ML VIAL IVP ONE (22:35)
[2017-04-13] MEDS: Nitroglycerin 0.4 MG TAB.SUBL SL STA ×3 (23:09→23:35)
[2017-04-13] MEDS ORDERED: Nitroglycerin 0.4 MG TAB.SUBL SL PRN (23:39)
[2017-04-13] MEDS ORDERED: Naloxone 0.4 MG/ML INJ IVP PRN (23:41)
[2017-04-13] MEDS ORDERED: *HR* Morphine 2 MG/ML SYRINGE IVP PRN (23:41)
[2017-04-13] MEDS ORDERED: *HR* HYDROcodone/Acet 5/325 mg TABLET PO PRN (23:43)
--- NOTE | 2017-04-13 23:46 | Internal Med History&Physical ---
Date of Encounter: 04/13/17 Time of Encounter: 23:44 Assessment and Plan (1) Chest pain Current visit: No Status: Acute has CAD s/p cabg 1967 already on cardiac meds trend trop increase coreg for anti-anginal therapy close monitoring, tele prn nitro possible some component of MSK pain as well since the CP is partially reproducible on palpation at bedside Qualifiers: Chest pain type: precordial pain Qualified Code(s): R07.2 - Precordial pain (2) CHF exacerbation Current visit: No Status: Acute LVEF 40% based on TTE 03/06 repeat lasix IV in a.m I&O, cardiac diet pulse ox, ambulate in the a.m and wean off oxygen as able Qualifiers: Congestive heart failure type: combined Qualified Code(s): I50.43 - Acute on chronic combined systolic (congestive) and diastolic (congestive) heart failure (3) CAD (coronary artery disease) of bypass graft Current visit: No Status: Chronic follows with cardiology Dr Garcia Qualifiers: Associated angina: with unstable angina Qualified Code(s): I25.700 - Atherosclerosis of coronary artery bypass graft(s), unspecified, with unstable angina pectoris Internal Medicine - H&P: HPI Chief complaint: Chest pain, sob History of present illness: Mr. Pizarro is a 76 year old male with hx of CAD s/p CABG 1967, denies prior stenting who presents for CP and SOB. Symptoms started around 7 pm when he was sitting down talking to his . He experienced a sharp-liked, like "someone hitting him", substernal chest pain, no radiation. No improvement with nitro, ASA, tylenol. HE reports associated SOB with the pain. He visits with Dr Garcia, denies prior stenting and had CABG many years ago in 1967. He denies smoking. EKG personally review with rate 69, V-pacer present XR/XR chest 1V portable IMPRESSION: Patchy bilateral lower lung airspace disease along with pulmonary vascular congestion. Pulmonary edema is the primary consideration. Correlate with any clinical evidence of superimposed pneumonia. Past Med Surg Social Fam HX - Past Medical History Medical history: asthma, atrial fibrillation, CHF, coronary artery disease, CVA , diabetes, hypertension, myocardial infarction, thyroid disease Psychiatric history: no psych history - Past Surgical History Surgical History: angioplasty/stent, cholecystectomy, coronary bypass (CABG), pacemaker/AICD - Social History Smoking Status: Former smoker Smokeless Tobacco Status: No Alcohol use: none Drug use: none - Family History Grandfather Family Member Ethnicity: Non- Living Status: Hx Family Cardiac Disorders: Yes ([place]) Mother Family Member Ethnicity: Non- Living Status: Hx Family Neurologic Disorders: Yes (CVA) Father Adopted: No Family Member Ethnicity: Non- Living Status: Hx Family Cardiac Disorders: No Hx Family Respiratory Disorders: No Hx Family Cancer: Yes (Unknown what type) Hx Family GI Disorders: No Hx Family Endocrine Disorder: No Hx Family Neuromuscular Disorders: No Hx Family Neurologic Disorders: No Hx Family HEENT Disorders: No Hx Family Autoimmune Disorders: No Internal Medicine - H&P: Meds Nitroglycerin [Nitrostat] 0.4 mg SL Q5M PRN 10/01/16 [History] Omeprazole [PriLOSEC] 20 mg PO BIDAC #60 11/04/16 [Rx] Ascorbate Calcium [Vitamin C] 500 mg PO DAILY 11/14/16 [History] Cyanocobalamin (Vitamin B-12) [Vitamin B12] 1,000 mcg PO DAILY 11/14/16 [History ] Multivitamin [One Daily Essential] 1 tab PO DAILY 11/14/16 [History] Aspirin Enteric Coated [Aspirin EC] 81 mg PO DAILY #30 tablet.dr 12/24/16 [Rx] Atorvastatin [Lipitor] 40 mg PO HS #30 tablet 12/24/16 [Rx] Carvedilol [Coreg] 3.125 mg PO BIDWM 30 Days tab 12/24/16 [Rx] Isosorbide MONOnitrate (24 HR) [Imdur] 120 mg PO DAILY #30 tab 12/24/16 [Rx] Lisinopril [Zestril] 2.5 mg PO DAILY #30 tab 12/24/16 [Rx] Tamsulosin [Flomax] 0.4 mg PO DAILY #30 capsule 12/24/16 [Rx] Ticagrelor [Brilinta] 90 mg PO BID 30 Days tab 12/24/16 [Rx] metFORMIN [Glucophage] 500 mg PO BID #60 tablet 12/24/16 [Rx] Docusate [Colace] 100 mg PO BID PRN #30 capsule 03/05/17 [Rx] HYDROcodone/Acet 5/325 mg [[place] 5-325 mg] 1 tab PO Q6HR PRN #14 tablet [Rx] Furosemide [Lasix] 20 mg PO BIDDIURETIC #60 tablet 03/31/17 [Rx] 3 Allergy/AdvReac Type Severity Reaction Status Date / Time Oxycodone [From Percocet] Allergy Hives Verified 04/13/17 21:32 tramadol Allergy Hives Verified 04/13/17 21:32 All Systems PM: A 10-system review of systems was performed and is negative for pertinent findings except as documented above in the HPI. Review of systems: ROS 14 point review of systems reviewed as best as possible given presentation. Pertinent positive or negative as per HPI or otherwise reviewed as negative - Constitutional Vitals: Temp Pulse Resp BP Pulse Ox 98.2 F 72 18 154/96 96 04/13/17 21:34 04/13/17 23:36 04/13/17 23:36 04/13/17 23:36 04/13/17 23:36 Exam: General - AAO x 3 Psych - Appropriate affect/speech. No agitation Eyes - ANUJA. Eye lids intact. No scleral icterus Heart - Sinus. RRR. S1 and S2 present. No added HS/murmurs appreciated. No elevated JVD appreciated. Lung - Adequate air entry b/l, No crackles/wheezes appreciated GI - Soft, non-tender. No hepatosplenomegaly/ascites. BS+ - No CVA/suprapubic tenderness or palpable bladder distension Skin - Intact. No rash/petechiae/ecchymosis. Warm extremities MSK - CP partially reproducible on palpation Internal Med - H&P Results - Labs CBC & Chem 7: 04/13/17 21:53 04/13/17 21:53 Labs: Short CBC 04/13/17 Range/Units 21:53 WBC 9.2 (4.3-11.1) K/mcL Hgb 13.4 (12.9-16.9) g/dL Hct 40.9 (37.5-50.1) % Plt Count 196 (140-400) K/mcL Neutrophils # 6.4 (1.6-8.9) K/mcL BMP 04/13/17 21:53 Sodium 139 Potassium 3.5 Chloride 106 Carbon Dioxide 25 BUN 25 H Creatinine 1.01 Glucose 126 H Calcium 9.8 Cardiac Enzymes 04/13/17 Range/Units 21:53 Troponin I 0.03 (< 0.04) ng/mL - Impressions ITS Impressions Chest X-Ray 04/13/17 21:42 IMPRESSION: Patchy bilateral lower lung airspace disease along with pulmonary vascular congestion. Pulmonary edema is the primary consideration. Correlate with any clinical evidence of superimposed pneumonia. D/ / Lc Patel MD / Lc Patel MD Interpreting Provider: Lc Patel MD
--- NOTE | 2017-04-13 23:47 | Emergency Department Note ---
Disposition Clinical Impression: Chest pain Qualifiers: Chest pain type: unspecified Qualified Code(s): R07.9 - Chest pain, unspecified Dyspnea Qualifiers: Dyspnea type: unspecified Qualified Code(s): R06.00 - Dyspnea, unspecified CHF exacerbation Qualifiers: Congestive heart failure type: unspecified Qualified Code(s): I50.9 - Heart failure, unspecified Disposition: Admitted As Inpatient Condition: Good Referrals: Lance Cronin MD [Primary Care Provider] - Forms: ED Satisfaction Letter Chest Pain HPI - General Chief Complaint: ED Chest Pain Stated Complaint: CP, cough Time Seen by Provider: 04/13/17 21:34 Source: patient, EMS Limitations: no limitations Vital Signs Reviewed: Yes Nursing Notes Reviewed: Yes - History of Present Illness HPI Narrative: Patient presents today for evaluation of chest pain and shortness of breath. Patient states that he was here several days ago and sent home. Patient describes onset of pain at approximately 7 PM. Patient took at home nitroglycerin without relief. Patient states that he was discharged with home oxygen but that it was taken away. Patient states that he has not been on oxygen at home. Patient was unable to lay down at home because he became more short of breath. The patient does have a significant cardiac history and has been at her facility multiple times. Patient will undergo cardiac evaluation is well as evaluation for dyspnea. Severity scale (1-10): 5 - Related Data Home Medications Medication Instructions Recorded Confirmed Nitroglycerin [Nitrostat] 0.4 mg SL Q5M PRN 10/01/16 04/13/17 Ascorbate Calcium [Vitamin C] 500 mg PO DAILY 11/14/16 04/13/17 Cyanocobalamin (Vitamin B-12) 1,000 mcg PO DAILY 11/14/16 04/13/17 [Vitamin B12] Multivitamin [One Daily Essential] 1 tab PO DAILY 11/14/16 04/13/17 Previous Rx's Medication Instructions Recorded Omeprazole [PriLOSEC] 20 mg PO BIDAC #60 11/04/16 Aspirin Enteric Coated [Aspirin EC] 81 mg PO DAILY #30 tablet. 12/24/16 Atorvastatin [Lipitor] 40 mg PO HS #30 tablet 12/24/16 Carvedilol [Coreg] 3.125 mg PO BIDWM 30 Days tab 12/24/16 Isosorbide MONOnitrate (24 HR) 120 mg PO DAILY #30 tab 12/24/16 [Imdur] Lisinopril [Zestril] 2.5 mg PO DAILY #30 tab 12/24/16 Tamsulosin [Flomax] 0.4 mg PO DAILY #30 capsule 12/24/16 Ticagrelor [Brilinta] 90 mg PO BID 30 Days tab 12/24/16 metFORMIN [Glucophage] 500 mg PO BID #60 tablet 12/24/16 Docusate [Colace] 100 mg PO BID PRN #30 capsule 03/05/17 HYDROcodone/Acet 5/325 mg [[place] 1 tab PO Q6HR PRN #14 tablet 03/05/17 5-325 mg] Furosemide [Lasix] 20 mg PO BIDDIURETIC #60 tablet 03/31/17 Allergies Allergy/AdvReac Type Severity Reaction Status Date / Time Oxycodone [From Percocet] Allergy Hives Verified 04/13/17 21:32 tramadol Allergy Hives Verified 04/13/17 21:32 Review of Systems: CONSTITUTIONAL: Fatigue No weight loss, fever, chills, weakness HEENT: Eyes: No visual changes. Ears, Nose, Throat: No hearing loss, difficulty talking or unable to swallow. SKIN: No rash or itching. CARDIOVASCULAR: Chest pain RESPIRATORY: Shortness of breath GASTROINTESTINAL: No anorexia, nausea, vomiting or diarrhea. No abdominal pain or blood. GENITOURINARY: No burning on urination or hematuria. NEUROLOGICAL: No headache, dizziness, syncope, paralysis, ataxia, numbness or tingling in the extremities. No change in bowel or bladder control. MUSCULOSKELETAL: No muscle pain, back pain, joint pain or stiffness. Chest Pain PMH - Past Medical History Medical history: Reports: asthma, atrial fibrillation, CHF, coronary artery disease, CVA, diabetes, hypertension, myocardial infarction, thyroid disease Surgical history: Reports: angioplasty/stent, cholecystectomy, coronary bypass ( CABG), pacemaker/AICD Psychiatric history: Reports: no psych history - Social History Smoking Status: Former smoker Alcohol use: Reports: none Drug use: Reports: none Physical Exam General: Mild dyspnea Head: Normocephalic Atraumatic Eyes: PERRL, EOMI ENT: Airway patent, no stridor Neck: supple, no meningismus Chest: Anterior wheezing posterior Rales Cardiac: Regular rate and rhythm, no murmurs, rubs or gallops Abdomen: soft, nontender, nondistended; no guarding, rebound, or tenderness to percussion Musculoskeletal: Calves symmetric, nontender, no palpable cord Skin: No rash, normal skin tone Neuro: Alert and Oriented to person, place, and time; No focal deficit, - General Limitations: no limitations General appearance: alert, in no apparent distress Course - Reevaluation(s) Reevaluation #1: Patient found to have significant increased BNP from previous visit. Patient has received Lasix and nitroglycerin and will be admitted to the hospitalist service. - Consultations Consultation #1: Discussed with Dr. Silver. Patient accepted to the hospitalist service. Vital Signs Temperature 98.2 F 04/13/17 21:34 Pulse Rate 64 04/13/17 21:34 Respiratory Rate 24 04/13/17 21:34 Blood Pressure 164/106 04/13/17 21:34 O2 Sat by Pulse Oximetry 95 04/13/17 21:34 Temperature 98.2 F 04/13/17 21:34 Pulse Rate 72 04/13/17 23:36 Respiratory Rate 18 04/13/17 23:36 Blood Pressure 154/96 04/13/17 23:36 O2 Sat by Pulse Oximetry 96 04/13/17 23:36 Oxygen Delivery Oxygen Delivery Nasal Cannula Chest Pain - Medical Records Medical records reviewed: Yes I reviewed the patient's medical records. - Lab Data Lab results reviewed: Yes I reviewed the patient's lab results. Result diagrams: 04/13/17 21:53 04/13/17 21:53 Lab Results 04/13/17 04/13/17 04/13/17 Range/Units 21:53 21:53 21:53 WBC 9.2 (4.3-11.1) K/mcL RBC 4.80 (4.19-5.50) M/mcL Hgb 13.4 (12.9-16.9) g/dL Hct 40.9 (37.5-50.1) % MCV 85.2 (83.0-100.0) fL MCH 27.9 L (28.0-33.3) pg MCHC 32.8 (31.6-35.5) g/dL RDW 14.7 H (11.5-14.5) % Plt Count 196 (140-400) K/mcL MPV 10.5 (9.4-12.4) fL Immature Gran % 0.3 (0-4) % Seg Neutrophils % 69.6 % Lymphocytes % 19.6 % Monocytes % 7.7 % Eosinophils % 2.3 % Basophils % 0.5 % Neutrophils # 6.4 (1.6-8.9) K/mcL Lymphocytes # 1.8 (0.6-4.6) K/mcL Monocytes # 0.7 (0.0-1.3) K/mcL Eosinophils # 0.2 (0.0-0.6) K/mcL Basophils # 0.1 (0.0-0.2) K/mcL Sodium 139 (136-145) mEq/L Potassium 3.5 (3.5-5.1) mEq/L Chloride 106 (98-107) mEq/L Carbon Dioxide 25 (23-29) mEq/L BUN 25 H (8-23) mg/dL Creatinine 1.01 (0.70-1.30) mg/dL Est GFR ( Amer) > 60 (> 60) Est GFR (Non-Af Amer) > 60 (> 60) BUN/Creatinine Ratio 25 (6-26) Glucose 126 H (70-105) mg/dL Calculated Osmolality 294 (280-300) Calcium 9.8 (8.6-10.3) mg/dL Troponin I (< 0.04) ng/mL B-Natriuretic Peptide 936 H (Less than 100) pg/mL 04/13/17 Range/Units 21:53 WBC (4.3-11.1) K/mcL RBC (4.19-5.50) M/mcL Hgb (12.9-16.9) g/dL Hct (37.5-50.1) % MCV (83.0-100.0) fL MCH (28.0-33.3) pg MCHC (31.6-35.5) g/dL RDW (11.5-14.5) % Plt Count (140-400) K/mcL MPV (9.4-12.4) fL Immature Gran % (0-4) % Seg Neutrophils % % Lymphocytes % % Monocytes % % Eosinophils % % Basophils % % Neutrophils # (1.6-8.9) K/mcL Lymphocytes # (0.6-4.6) K/mcL Monocytes # (0.0-1.3) K/mcL Eosinophils # (0.0-0.6) K/mcL Basophils # (0.0-0.2) K/mcL Sodium (136-145) mEq/L Potassium (3.5-5.1) mEq/L Chloride (98-107) mEq/L Carbon Dioxide (23-29) mEq/L BUN (8-23) mg/dL Creatinine (0.70-1.30) mg/dL Est GFR ( Amer) (> 60) Est GFR (Non-Af Amer) (> 60) BUN/Creatinine Ratio (6-26) Glucose (70-105) mg/dL Calculated Osmolality (280-300) Calcium (8.6-10.3) mg/dL Troponin I 0.03 (< 0.04) ng/mL B-Natriuretic Peptide (Less than 100) pg/mL - Radiology Data Radiology results reviewed: Yes I reviewed the patient's radiology results. - EKG Data EKG attestation: Yes I reviewed and interpreted this EKG. EKG results narrative: EKG shows ventricular rate of 69. SC interval 141. QRS 217. QTC 540. Does not meet [place] criteria.
[2017-04-14 06:24] LABS: BUN/Creatinine Ratio 22 (6-26); Blood Urea Nitrogen 22 mg/dL (8-23); Calcium 9.4 mg/dL (8.6-10.3); Carbon Dioxide 26 mEq/L (23-29); Chloride 105 mEq/L (98-107); Glucose 125 mg/dL (70-105); Osmolality,Calculated 297 (280-300); Potassium 3.5 mEq/L (3.5-5.1); Sodium 141 mEq/L (136-145); eGFR For African Americans > 60 (> 60); eGFR For Non-African Americans > 60 (> 60)
[2017-04-14 06:35] LABS: Basophils # 0.1 K/mcL (0.0-0.2); Basophils % 0.7 %; Eosinophils # 0.3 K/mcL (0.0-0.6); Eosinophils % 3.3 %; Hematocrit 42.3 % (37.5-50.1); Hemoglobin 13.7 g/dL (12.9-16.9); Immature Granulocytes % 0.5 % (0-4); Lymphocytes # 1.8 K/mcL (0.6-4.6); Lymphocytes % 22.6 %; Mean Corpuscular HGB Conc 32.4 g/dL (31.6-35.5); Mean Corpuscular Hemoglobin 27.4 pg (28.0-33.3); Mean Corpuscular Volume 84.6 fL (83.0-100.0); Mean Platelet Volume 10.6 fL (9.4-12.4); Monocytes # 0.7 K/mcL (0.0-1.3); Monocytes % 8.4 %; Neutrophils # 5.2 K/mcL (1.6-8.9); Platelet Count 197 K/mcL (140-400); Red Cell Distribution Width 14.9 % (11.5-14.5); Segmented Neutrophils % 64.5 %
[2017-04-14] MEDS ORDERED: *HR* Metformin 500 MG TABLET PO SCH (08:00)
[2017-04-14] MEDS: Aspirin Enteric Coated 81 MG Tablet PO SCH (08:05)
[2017-04-14] MEDS: Isosorbide MONOnitrate (24 HR) 60 MG TAB.ER.24H PO SCH (08:05)
[2017-04-14] MEDS: Ascorbic Acid 500 MG TABLET PO SCH (08:05)
[2017-04-14] MEDS: Cyanocobalamin (B-12) 1,000 MCG TABLET PO SCH (08:05)
[2017-04-14] MEDS: *HR* Ticagrelor 90 MG TABLET PO SCH ×2 (08:05→21:24)
[2017-04-14] MEDS ORDERED: Furosemide 40 MG/4 ML VIAL IVP ONE (09:00)
[2017-04-14] MEDS ORDERED: D5% in Water 1,000 ML IVC PRN (11:57)
[2017-04-14] MEDS ORDERED: Dextrose Gel 15 GM/37.5 ML TUBE PO PRN ×2 (11:57)
[2017-04-14] MEDS ORDERED: *HR* Dextrose 50 % in Water (Syg) 50 ML SYRINGE IVP PRN (11:57)
[2017-04-14] MEDS ORDERED: Acetaminophen 325 MG TABLET PO PRN (11:59)
[2017-04-14] MEDS: Insulin LISPRO 300 UNITS/3 ML VIAL SQ SCH (16:25)
--- NOTE | 2017-04-14 17:52 | Electrocardiograph Report ---
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
--- NOTE | 2017-04-14 18:31 | Internal Med Progress Note ---
Date of Encounter: 04/14/17 Time of Encounter: 08:45 - Assessment and plan (1) Congestive heart failure Status: Acute Assessment and plan: Patient is noted to have multiple recent hospitalizations with similar complaints. Limited echocardiogram from February 2017 shows moderately reduced ejection fraction, at 40%. Noted to be noncompliant with medications. Continue IV Lasix, beta fuentes, nitrates, TEE inhibitor, fluid restriction, urine output monitoring. Continue telemetry monitoring. Patient was evaluated by cardiology during his previous admissions and recommended outpatient stress test. However, patient continues to refuse this as an outpatient. We will plan to complete testing while inpatient. He is noted to have mild troponin leak, which is chronic, around 0.04. Qualifiers: Congestive heart failure type: combined Congestive heart failure chronicity : acute on chronic Qualified Code(s): I50.43 - Acute on chronic combined systolic (congestive) and diastolic (congestive) heart failure (2) Chest pain Status: Acute Assessment and plan: Continues to have intermittent chest pain, could be anginal pain. Continue nitrates, aspirin, statin, beta fuentes. Nuclear stress test as above. Continue telemetry monitoring. Qualifiers: Chest pain type: precordial pain Qualified Code(s): R07.2 - Precordial pain (3) IDDM (insulin dependent diabetes mellitus) Status: Chronic Assessment and plan: Continue Accu-Chek blood glucose monitoring with basal bolus insulin regimen. Diabetic diet as tolerated. (4) CAD (coronary artery disease) Status: Chronic Qualifiers: Coronary Disease-Associated Artery/Lesion type: bypass graft [place] vs. transplanted heart: [place] heart Associated angina: with stable angina Qualified Code(s): I25.708 - Atherosclerosis of coronary artery bypass graft(s) , unspecified, with other forms of angina pectoris (5) Pacemaker Status: Chronic (6) HTN (hypertension) Status: Chronic Assessment and plan: Blood pressure fairly controlled. Continue home medications. Qualifiers: Hypertension type: essential hypertension Qualified Code(s): I10 - Essential (primary) hypertension (7) Ischemic cardiomyopathy Status: Chronic (8) Paroxysmal a-fib Status: Chronic Assessment and plan: Continue telemetry monitoring. Continue aspirin, Brilinta, not on anticoagulation as outpatient. Continue beta fuentes and potline monitor. (9) Chronic respiratory failure Status: Chronic Assessment and plan: Discussed with case monitor. Patient may require repeat home oxygen evaluation prior to discharge. Qualifiers: Respiratory failure complication: hypoxia Qualified Code(s): J96.11 - Chronic respiratory failure with hypoxia - Subjective Interval history: Reports feeling better. Continues to have intermittent chest pain, improving shortness of breath. Noted to be noncompliant with medications at home. Noted to have been discharged with home oxygen during his recent admission, reports that he ran out of oxygen tank and never had it refilled? - Constitutional Vitals: Temp Pulse Resp BP Pulse Ox 98.1 F 65 17 122/73 96 04/14/17 15:53 04/14/17 15:53 04/14/17 15:53 04/14/17 15:53 04/14/17 15:53 General appearance: Present: A&O X 2, answers questions appropriately - Respiratory Respiratory exam: Present: CTAB (Bibasal crackles). Absent: accessory muscle use, rales, rhonchi, wheezes - Cardiovascular Cardiovascular exam: Present: RRR, +S1, +S2. Absent: diastolic murmur, gallop, rubs, systolic murmur - GI/Abdominal GI/Abdominal exam: Present: normal bowel sounds, soft, no peritoneal signs. Absent: distended, tenderness - Extremities Exam Extremities exam: Present: full ROM, warm, radial pulses palpable and symmetrical. Absent: calf tenderness, cyanotic, pedal edema - Neurological Exam Neurological exam: Present: CN II-XII intact, oriented X3, no focal deficits. Absent: pronater drift, facial droop, speech deficit Internal Medicine: Result - Labs CBC & Chem 7: 04/14/17 05:52 04/14/17 05:52 Labs: Short CBC 04/14/17 Range/Units 05:52 WBC 8.1 (4.3-11.1) K/mcL Hgb 13.7 (12.9-16.9) g/dL Hct 42.3 (37.5-50.1) % Plt Count 197 (140-400) K/mcL Neutrophils # 5.2 (1.6-8.9) K/mcL BMP 04/14/17 05:52 Sodium 141 Potassium 3.5 Chloride 105 Carbon Dioxide 26 BUN 22 Creatinine 0.98 Glucose 125 H Calcium 9.4 Cardiac Enzymes 04/14/17 Range/Units 05:52 Troponin I 0.04 H* (< 0.04) ng/mL Consult Discharge Plan - Plan Instructions: Heart Failure (DC) Referrals: Lance Cronin MD [Primary Care Provider] - 04/22/17 10:15 am ()
[2017-04-14] MEDS ORDERED: Insulin LISPRO 300 UNITS/3 ML VIAL SQ SCH (21:00)
[2017-04-14] MEDS: *HR* HYDROcodone/Acet 5/325 mg TABLET PO PRN (21:25)
[2017-04-15] MEDS: *HR* HYDROcodone/Acet 5/325 mg TABLET PO PRN (05:19)
[2017-04-15] MEDS ORDERED: Regadenoson 0.4 MG/5 ML SYRINGE IVP ONE (06:14)
[2017-04-15] MEDS ORDERED: Furosemide 20 MG TABLET PO SCH (08:00)
[2017-04-15] MEDS: Insulin LISPRO 300 UNITS/3 ML VIAL SQ SCH ×2 (10:28→13:17)
[2017-04-15 12:54] VITALS: BP 156/85
[2017-04-15] MEDS: Aspirin Enteric Coated 81 MG Tablet PO SCH (13:16)
[2017-04-15] MEDS: *HR* Ticagrelor 90 MG TABLET PO SCH (13:17)
[2017-04-15] MEDS: Cyanocobalamin (B-12) 1,000 MCG TABLET PO SCH (13:17)
[2017-04-15] MEDS: Isosorbide MONOnitrate (24 HR) 60 MG TAB.ER.24H PO SCH (13:17)
[2017-04-15] MEDS: Ascorbic Acid 500 MG TABLET PO SCH (13:17)
--- NOTE | 2017-04-15 14:46 | Discharge Summary ---
Date of Encounter: 04/15/17 Time of Encounter: 14:44 - Discharge Diagnosis (1) Chest pain Priority: Primary Status: Acute Qualifiers: Chest pain type: precordial pain Qualified Code(s): R07.2 - Precordial pain (2) Congestive heart failure Priority: Primary Status: Acute Qualifiers: Congestive heart failure type: combined Congestive heart failure chronicity : acute on chronic Qualified Code(s): I50.43 - Acute on chronic combined systolic (congestive) and diastolic (congestive) heart failure (3) Chronic respiratory failure Priority: Secondary Status: Chronic Qualifiers: Respiratory failure complication: hypoxia Qualified Code(s): J96.11 - Chronic respiratory failure with hypoxia (4) IDDM (insulin dependent diabetes mellitus) Priority: Secondary Status: Chronic (5) CAD (coronary artery disease) Priority: Secondary Status: Chronic Qualifiers: Coronary Disease-Associated Artery/Lesion type: bypass graft [place] vs. transplanted heart: [place] heart Associated angina: with stable angina Qualified Code(s): I25.708 - Atherosclerosis of coronary artery bypass graft(s) , unspecified, with other forms of angina pectoris (6) HTN (hypertension) Priority: Secondary Status: Chronic Qualifiers: Hypertension type: essential hypertension Qualified Code(s): I10 - Essential (primary) hypertension (7) HLD (hyperlipidemia) Priority: Secondary Status: Chronic Qualifiers: Hyperlipidemia type: unspecified Qualified Code(s): E78.5 - Hyperlipidemia , unspecified (8) Ischemic cardiomyopathy Priority: Secondary Status: Chronic (9) Paroxysmal a-fib Priority: Secondary Status: Chronic - Discharge Medications Home Medications: Nitroglycerin [Nitrostat] 0.4 mg SL Q5M PRN 10/01/16 [History] Omeprazole [PriLOSEC] 20 mg PO BIDAC #60 11/04/16 [Rx] Ascorbate Calcium [Vitamin C] 500 mg PO DAILY 11/14/16 [History] Cyanocobalamin (Vitamin B-12) [Vitamin B12] 1,000 mcg PO DAILY 11/14/16 [History ] Multivitamin [One Daily Essential] 1 tab PO DAILY 11/14/16 [History] Aspirin Enteric Coated [Aspirin EC] 81 mg PO DAILY #30 tablet.dr 12/24/16 [Rx] Atorvastatin [Lipitor] 40 mg PO HS #30 tablet 12/24/16 [Rx] Carvedilol [Coreg] 3.125 mg PO BIDWM 30 Days tab 12/24/16 [Rx] Isosorbide MONOnitrate (24 HR) [Imdur] 120 mg PO DAILY #30 tab 12/24/16 [Rx] Lisinopril [Zestril] 2.5 mg PO DAILY #30 tab 12/24/16 [Rx] Tamsulosin [Flomax] 0.4 mg PO DAILY #30 capsule 12/24/16 [Rx] Ticagrelor [Brilinta] 90 mg PO BID 30 Days tab 12/24/16 [Rx] metFORMIN [Glucophage] 500 mg PO BID #60 tablet 12/24/16 [Rx] Docusate [Colace] 100 mg PO BID PRN #30 capsule 03/05/17 [Rx] HYDROcodone/Acet 5/325 mg [[place] 5-325 mg] 1 tab PO Q6HR PRN #14 tablet [Rx] Furosemide [Lasix] 20 mg PO BID 04/14/17 [History] Allergies/Adverse Reactions: 3 Allergy/AdvReac Type Severity Reaction Status Date / Time Oxycodone [From Percocet] Allergy Hives Verified 04/13/17 21:32 tramadol Allergy Hives Verified 04/13/17 21:32 Procedures/tests Complete & Pending: Procedures Performed prior 72 hours Category Date Time Status NM maye perf SPECT multi [NM] Routine Exams 04/14/17 11:12 Taken SP pharm nuclear stress Routine Y 04/15/17 07:15 Completed Date of admission: 04/14/17 00:29 Primary care physician: Lance Cronin MD Discharging clinician: Simran Lerma Anticipated date of discharge: 04/15/17 - Patient Status Disposition: Home, Self-Care Condition: Good Functional capacity at discharge: independent ambulation Overall status at discharge: patient is progressing back to baseline - Discharge Instructions Instructions: Heart Failure (DC) Follow Up With: Lance Cronin MD [Primary Care Provider] - 04/22/17 10:15 am () - Diet and Activity Activity: resume usual activities as tolerated, wear oxygen at all times Diet: diabetic diet, low fat, low cholesterol, low salt diet (fluid restriction to 1.2L/day) Hospital course: Mr. Pizarro is a 76 year old male with the above medical problems, who was admitted with chest pain and shortness of breath. He was noted to be in mild acute exacerbation of CHF and was started on IV diuresis along with fluid restriction. Limited echocardiogram from February 2017 shows moderately reduced ejection fraction, at 40%. Noted to be noncompliant with medications. Patient was scheduled for nuclear stress test as outpatient, which he has refused. Hence this was completed as inpatient and showed - No perfusion evidence for ischemia. Infarct involving the basal to apical inferior wall and inferoseptum. Patient was discharged on home oxygen during recent hospitalization, however he has refused for this set up. He has also noted to be noncompliant with his medications and fluid restriction at home. Medical compliance has been reinforced. Home oxygen evaluation during this admission did not qualify him for home oxygen, although he did have exertional dyspnea. He is medically stable and wishes to go home at this time. - Time Spent with Patient Total time spent providing and/or coordinating discharge services: Greater than 30 minutes (40 min) - Constitutional Vitals: Temp Pulse Resp BP Pulse Ox 97.2 F L 74 20 156/85 97 04/15/17 12:52 04/15/17 12:52 04/15/17 12:52 04/15/17 12:52 04/15/17 12:52 General appearance: Present: A&O X 3 (hard of hearing), answers questions appropriately - Cardiovascular Cardiovascular exam: Present: RRR, +S1, +S2. Absent: diastolic murmur, gallop, rubs, systolic murmur
== END 2017-04-15 16:19 | disposition home or self-care (01) ==
LOC: 2ANU 21:30 → EMEROO 21:30 → SUATTDRO 04-14 00:29 → 2ANU 04-14 01:20
PROVIDERS: ADMIT Internal Medicine Hematology & Oncology; ATTEND Internal Medicine

== ENCOUNTER 2017-04-25 03:19 | Inpatient (IN) ==
[2017-04-25] MEDS ORDERED: Aspirin 81 MG TAB.CHEW PO ONE (03:30)
[2017-04-25 03:49] LABS: Basophils # 0.1 K/mcL (0.0-0.2); Basophils % 0.9 %; Eosinophils # 0.3 K/mcL (0.0-0.6); Eosinophils % 2.8 %; Hematocrit 41.3 % (37.5-50.1); Hemoglobin 13.2 g/dL (12.9-16.9); Immature Granulocytes % 0.3 % (0-4); Lymphocytes # 1.4 K/mcL (0.6-4.6); Lymphocytes % 14.9 %; Mean Corpuscular Hemoglobin 27.3 pg (28.0-33.3); Mean Corpuscular Volume 85.5 fL (83.0-100.0); Mean Platelet Volume 11.7 fL (9.4-12.4); Monocytes # 0.7 K/mcL (0.0-1.3); Monocytes % 7.3 %; Neutrophils # 7.1 K/mcL (1.6-8.9); Platelet Count 202 K/mcL (140-400); Red Blood Count 4.83 M/mcL (4.19-5.50); Red Cell Distribution Width 15.3 % (11.5-14.5); Segmented Neutrophils % 73.8 %
[2017-04-25 03:58] LABS: BUN/Creatinine Ratio 20 (6-26); Blood Urea Nitrogen 22 mg/dL (8-23); Calcium 8.9 mg/dL (8.6-10.3); Carbon Dioxide 25 mEq/L (23-29); Chloride 108 mEq/L (98-107); Glucose 162 mg/dL (70-105); Osmolality,Calculated 297 (280-300); Potassium 3.8 mEq/L (3.5-5.1); Sodium 140 mEq/L (136-145); eGFR For African Americans > 60 (> 60); eGFR For Non-African Americans > 60 (> 60)
[2017-04-25] MEDS: Nitroglycerin 0.4 MG TAB.SUBL SL ONE ×3 (04:00→04:10)
[2017-04-25] MEDS ORDERED: Ondansetron 4 MG/2 ML VIAL IVP ONE (04:41)
[2017-04-25] MEDS ORDERED: Nitroglycerin 1 INCH/GM PACKET TP ONE (04:41)
[2017-04-25] MEDS ORDERED: *HR* Morphine 2 MG/ML SYRINGE IVP STA (04:41)
--- NOTE | 2017-04-25 05:16 | Emergency Department Note ---
Disposition Clinical Impression: Chest pain Qualifiers: Chest pain type: unspecified Qualified Code(s): R07.9 - Chest pain, unspecified Disposition: Admitted As Inpatient Condition: Good Referrals: Lance Cronin MD [Primary Care Provider] - Forms: ED Satisfaction Letter Chest Pain HPI - General Chief Complaint: ED Chest Pain Stated Complaint: CP/MAYELIN Time Seen by Provider: 04/25/17 03:24 Source: patient, EMS Limitations: no limitations Vital Signs Reviewed: Yes Nursing Notes Reviewed: Yes - History of Present Illness HPI Narrative: Patient presents for evaluation of chest pain. Patient's chest pain started earlier this evening. He took 3 nitroglycerin glycerin without relief. Patient presents for persistent chest pain. Chest pain described as pressure across the chest. Similar to previous chest pain was cardiac in nature. Severity scale (1-10): 5 - Related Data Home Medications Medication Instructions Recorded Confirmed Nitroglycerin [Nitrostat] 0.4 mg SL Q5M PRN 10/01/16 04/14/17 Ascorbate Calcium [Vitamin C] 500 mg PO DAILY 11/14/16 04/14/17 Cyanocobalamin (Vitamin B-12) 1,000 mcg PO DAILY 11/14/16 04/14/17 [Vitamin B12] Multivitamin [One Daily Essential] 1 tab PO DAILY 11/14/16 04/14/17 Furosemide [Lasix] 20 mg PO BID 04/14/17 04/14/17 Previous Rx's Medication Instructions Recorded Omeprazole [PriLOSEC] 20 mg PO BIDAC #60 11/04/16 Aspirin Enteric Coated [Aspirin EC] 81 mg PO DAILY #30 tablet. 12/24/16 Atorvastatin [Lipitor] 40 mg PO HS #30 tablet 12/24/16 Carvedilol [Coreg] 3.125 mg PO BIDWM 30 Days tab 12/24/16 Isosorbide MONOnitrate (24 HR) 120 mg PO DAILY #30 tab 12/24/16 [Imdur] Lisinopril [Zestril] 2.5 mg PO DAILY #30 tab 12/24/16 Tamsulosin [Flomax] 0.4 mg PO DAILY #30 capsule 12/24/16 Ticagrelor [Brilinta] 90 mg PO BID 30 Days tab 12/24/16 metFORMIN [Glucophage] 500 mg PO BID #60 tablet 12/24/16 Docusate [Colace] 100 mg PO BID PRN #30 capsule 03/05/17 HYDROcodone/Acet 5/325 mg [[place] 1 tab PO Q6HR PRN #14 tablet 03/05/17 5-325 mg] Allergies Allergy/AdvReac Type Severity Reaction Status Date / Time Oxycodone [From Percocet] Allergy Hives Verified 04/13/17 21:32 tramadol Allergy Hives Verified 04/13/17 21:32 Review of Systems: CONSTITUTIONAL: No weight loss, fever, chills, weakness or fatigue. HEENT: Eyes: No visual changes. Ears, Nose, Throat: No hearing loss, difficulty talking or unable to swallow. SKIN: No rash or itching. CARDIOVASCULAR: Chest pain RESPIRATORY: No shortness of breath, cough or sputum. GASTROINTESTINAL: No anorexia, nausea, vomiting or diarrhea. No abdominal pain or blood. GENITOURINARY: No burning on urination or hematuria. NEUROLOGICAL: No headache, dizziness, syncope, paralysis, ataxia, numbness or tingling in the extremities. No change in bowel or bladder control. MUSCULOSKELETAL: No muscle pain, back pain, joint pain or stiffness. All systems ED: reviewed and negative except as stated. Chest Pain PMH - Past Medical History Medical history: Reports: asthma, atrial fibrillation, CHF, coronary artery disease, CVA, diabetes, hypertension, myocardial infarction, thyroid disease Surgical history: Reports: angioplasty/stent, cholecystectomy, coronary bypass ( CABG), pacemaker/AICD Psychiatric history: Reports: no psych history - Social History Smoking Status: Former smoker Alcohol use: Reports: none Drug use: Reports: none Physical Exam General: Well appearing, nontoxic, no acute distress Head: Normocephalic Atraumatic Eyes: PERRL, EOMI ENT: Airway patent, no stridor Neck: supple, no meningismus Chest: Lungs clear to auscultation bilateral Cardiac: Regular rate and rhythm, no murmurs, rubs or gallops Abdomen: soft, nontender, nondistended; no guarding, rebound, or tenderness to percussion Musculoskeletal: Calves symmetric, nontender, no palpable cord Skin: No rash, normal skin tone Neuro: Alert and Oriented to person, place, and time; No focal deficit, CN 2-12 symmetric and intact - General Limitations: no limitations General appearance: alert Course - Reevaluation(s) Reevaluation #1: Patient's chest pain persistent despite our 3 nitroglycerin here. Patient will be given pain medication and topical nitro. Patient was offered repeat troponin with reassurance and states that he is not for comfort with this as he has had persistent chest pain similar to previous IN. Patient will be admitted for further evaluation. - Consultations Consultation #1: Discussed with hospitalist. Patient accepted for admission. At this time the patient's most recent catheter did receive stent. Cardiology may need to be involved in order to help further evaluate and determine plan to prevent continued bounce backs. Vital Signs Temperature 97.9 F 04/25/17 03:22 Pulse Rate 67 04/25/17 03:22 Respiratory Rate 16 04/25/17 03:22 Blood Pressure 174/103 04/25/17 03:22 O2 Sat by Pulse Oximetry 98 04/25/17 03:22 Temperature 97.9 F 04/25/17 03:22 Pulse Rate 75 04/25/17 05:14 Respiratory Rate 16 04/25/17 05:14 Blood Pressure 158/101 04/25/17 05:14 O2 Sat by Pulse Oximetry 99 04/25/17 05:14 Oxygen Delivery Oxygen Delivery Nasal Cannula Chest Pain - Medical Records Medical records reviewed: Yes I reviewed the patient's medical records. - Lab Data Lab results reviewed: Yes I reviewed the patient's lab results. Result diagrams: 04/25/17 03:40 04/25/17 03:40 Lab Results 04/25/17 04/25/17 04/25/17 Range/Units 03:40 03:40 03:40 WBC 9.7 (4.3-11.1) K/mcL RBC 4.83 (4.19-5.50) M/mcL Hgb 13.2 (12.9-16.9) g/dL Hct 41.3 (37.5-50.1) % MCV 85.5 (83.0-100.0) fL MCH 27.3 L (28.0-33.3) pg MCHC 32.0 (31.6-35.5) g/dL RDW 15.3 H (11.5-14.5) % Plt Count 202 (140-400) K/mcL MPV 11.7 (9.4-12.4) fL Immature Gran % 0.3 (0-4) % Seg Neutrophils % 73.8 % Lymphocytes % 14.9 % Monocytes % 7.3 % Eosinophils % 2.8 % Basophils % 0.9 % Neutrophils # 7.1 (1.6-8.9) K/mcL Lymphocytes # 1.4 (0.6-4.6) K/mcL Monocytes # 0.7 (0.0-1.3) K/mcL Eosinophils # 0.3 (0.0-0.6) K/mcL Basophils # 0.1 (0.0-0.2) K/mcL Sodium 140 (136-145) mEq/L Potassium 3.8 (3.5-5.1) mEq/L Chloride 108 H (98-107) mEq/L Carbon Dioxide 25 (23-29) mEq/L BUN 22 (8-23) mg/dL Creatinine 1.12 (0.70-1.30) mg/dL Est GFR ( Amer) > 60 (> 60) Est GFR (Non-Af Amer) > 60 (> 60) BUN/Creatinine Ratio 20 (6-26) Glucose 162 H (70-105) mg/dL Calculated Osmolality 297 (280-300) Calcium 8.9 (8.6-10.3) mg/dL Troponin I 0.03 (< 0.04) ng/mL B-Natriuretic Peptide (Less than 100) pg/mL 04/25/17 Range/Units 03:40 WBC (4.3-11.1) K/mcL RBC (4.19-5.50) M/mcL Hgb (12.9-16.9) g/dL Hct (37.5-50.1) % MCV (83.0-100.0) fL MCH (28.0-33.3) pg MCHC (31.6-35.5) g/dL RDW (11.5-14.5) % Plt Count (140-400) K/mcL MPV (9.4-12.4) fL Immature Gran % (0-4) % Seg Neutrophils % % Lymphocytes % % Monocytes % % Eosinophils % % Basophils % % Neutrophils # (1.6-8.9) K/mcL Lymphocytes # (0.6-4.6) K/mcL Monocytes # (0.0-1.3) K/mcL Eosinophils # (0.0-0.6) K/mcL Basophils # (0.0-0.2) K/mcL Sodium (136-145) mEq/L Potassium (3.5-5.1) mEq/L Chloride (98-107) mEq/L Carbon Dioxide (23-29) mEq/L BUN (8-23) mg/dL Creatinine (0.70-1.30) mg/dL Est GFR ( Amer) (> 60) Est GFR (Non-Af Amer) (> 60) BUN/Creatinine Ratio (6-26) Glucose (70-105) mg/dL Calculated Osmolality (280-300) Calcium (8.6-10.3) mg/dL Troponin I (< 0.04) ng/mL B-Natriuretic Peptide 481 H (Less than 100) pg/mL - Radiology Data Radiology results reviewed: Yes I reviewed the patient's radiology results. - EKG Data EKG attestation: Yes I reviewed and interpreted this EKG. EKG results narrative: EKG shows electronically paced rhythm. Rate of 81. QTC 521. No significant changes from 04/13/17. Attestation Statement - Attestation Attestation: I, Alejandro Velásquez MD, personally evaluated this patient and discussed their management with the resident physician. I reviewed the resident's note and agree with the documented findings, medical decision making, and plan of care. 76-year-old male with history of coronary artery disease presents to the emergency department complaining of left-sided chest pain. He also complains of some shortness of breath. Patient has history of a CABG in the past and about 6 months ago or so he had a IN and had a cardiac catheter with stents placed. He presents tonight complaining of this chest pain associated with nausea and shortness of breath. No diaphoresis. No fever. No relief with nitroglycerin at home. On examination patient is a well-developed well-nourished elderly male in no acute distress. He is alert and oriented 3. There is no cyanosis or diaphoresis. Chest is nontender to palpation. Breath sounds are clear and equal bilaterally. Heart regular rate and rhythm. Abdomen soft and nontender with normal bowel sounds. Labs reviewed. Troponin negative. EKG shows totally paced rhythm. Chest x- ray shows some bibasilar airspace disease which has been present previously. Likely atelectasis. The hospitalist, Dr. De La Cruz, was consulted and accepted admission of the patient.
[2017-04-25] MEDS ORDERED: Naloxone 0.4 MG/ML INJ IVP PRN (06:14)
[2017-04-25] MEDS ORDERED: Nitroglycerin 0.4 MG TAB.SUBL SL PRN (06:18)
[2017-04-25] MEDS ORDERED: D5% in Water 1,000 ML IVC PRN (06:57)
[2017-04-25] MEDS ORDERED: Dextrose Gel 15 GM/37.5 ML TUBE PO PRN ×2 (06:57)
[2017-04-25] MEDS ORDERED: *HR* Dextrose 50 % in Water (Syg) 50 ML SYRINGE IVP PRN (06:57)
--- NOTE | 2017-04-25 07:04 | Internal Med History&Physical ---
Date of Encounter: 04/25/17 Time of Encounter: 06:00 Assessment and Plan (1) Chest pain Current visit: Yes Status: Acute Pt has chest pain. Hx of CAD, need to r/o ACS - Cont security sme - Track 3 sets of troponin - Pt has most cardiac workup done already recently. Consider cardio consult if pain persist Qualifiers: Chest pain type: unspecified Qualified Code(s): R07.9 - Chest pain, unspecified (2) CHF exacerbation Current visit: No Status: Acute Pt has hx of systolic CHF with EF 40%. Has recent increased SOB. Consider mild CHF exacerbation. - strict I/O - Cardiac and fluid restriction diet - Lasix 40mg iv daily - Pt is on BB, ACEI already and s/p AICD Qualifiers: Congestive heart failure type: systolic Qualified Code(s): I50.23 - Acute on chronic systolic (congestive) heart failure (3) DVT prophylaxis Current visit: No Status: Acute Heparin SC (4) CAD (coronary artery disease) Current visit: No Status: Chronic Cont home med, recent stent in Oct 2016, Cont DAPT, BB, statin, imdur Qualifiers: Coronary Disease-Associated Artery/Lesion type: bypass graft [place] vs. transplanted heart: [place] heart Associated angina: with stable angina Qualified Code(s): I25.708 - Atherosclerosis of coronary artery bypass graft(s) , unspecified, with other forms of angina pectoris (5) DM2 (diabetes mellitus, type 2) Current visit: No Status: Chronic Cover pt with SSI Qualifiers: Diabetes mellitus complication status: with circulatory complication Diabetes mellitus complication detail: with other circulatory complications Diabetes mellitus joint terminal attack controller insulin use: without retirement use Qualified Code( s): E11.59 - Type 2 diabetes mellitus with other circulatory complications Internal Medicine - H&P: HPI Chief complaint: chest pain Admitted From: Home Plans for Post Hospital Care: Home History of present illness: Mr. Pizarro is a 76 year old male with Hx of CAD S/P CABG and stent, systolic CHF s/p PPM/AICD, DM, present to ER for chest pain. Pt said pain started at 1 am and waked him up from sleep, located all cross the chest w/o radiation. Pt has increased SOB from yesterday and has nonproductive cough for 1 day. Denies nausea or diaphoresis. Pt has no fever. Mild runny nose, mild abd pain, no diarrhea. Pt has been admitted for similar problem many times in last year and this year. His last stress test on 04/15/17 shows no perfusion evidence of ischemia. Past Med Surg Social Fam HX - Past Medical History Medical history: asthma, atrial fibrillation, CHF, coronary artery disease, CVA , diabetes, hypertension, myocardial infarction, thyroid disease Psychiatric history: no psych history - Past Surgical History Surgical History: angioplasty/stent, cholecystectomy, coronary bypass (CABG), pacemaker/AICD - Social History Smoking Status: Former smoker Smokeless Tobacco Status: No Alcohol use: none Drug use: none - Family History Grandfather Family Member Ethnicity: Non- Living Status: Hx Family Cardiac Disorders: Yes ([place]) Mother Family Member Ethnicity: Non- Living Status: Hx Family Neurologic Disorders: Yes (CVA) Father Adopted: No Family Member Ethnicity: Non- Living Status: Hx Family Cardiac Disorders: No Hx Family Respiratory Disorders: No Hx Family Cancer: Yes (Unknown what type) Hx Family GI Disorders: No Hx Family Endocrine Disorder: No Hx Family Neuromuscular Disorders: No Hx Family Neurologic Disorders: No Hx Family HEENT Disorders: No Hx Family Autoimmune Disorders: No Internal Medicine - H&P: Meds Nitroglycerin [Nitrostat] 0.4 mg SL Q5M PRN 10/01/16 [History] Omeprazole [PriLOSEC] 20 mg PO BIDAC #60 11/04/16 [Rx] Ascorbate Calcium [Vitamin C] 500 mg PO DAILY 11/14/16 [History] Cyanocobalamin (Vitamin B-12) [Vitamin B12] 1,000 mcg PO DAILY 11/14/16 [History ] Multivitamin [One Daily Essential] 1 tab PO DAILY 11/14/16 [History] Aspirin Enteric Coated [Aspirin EC] 81 mg PO DAILY #30 tablet.dr 12/24/16 [Rx] Atorvastatin [Lipitor] 40 mg PO HS #30 tablet 12/24/16 [Rx] Carvedilol [Coreg] 3.125 mg PO BIDWM 30 Days tab 12/24/16 [Rx] Isosorbide MONOnitrate (24 HR) [Imdur] 120 mg PO DAILY #30 tab 12/24/16 [Rx] Lisinopril [Zestril] 2.5 mg PO DAILY #30 tab 12/24/16 [Rx] Tamsulosin [Flomax] 0.4 mg PO DAILY #30 capsule 12/24/16 [Rx] Ticagrelor [Brilinta] 90 mg PO BID 30 Days tab 12/24/16 [Rx] metFORMIN [Glucophage] 500 mg PO BID #60 tablet 12/24/16 [Rx] Docusate [Colace] 100 mg PO BID PRN #30 capsule 03/05/17 [Rx] Furosemide [Lasix] 20 mg PO BID 04/14/17 [History] 3 Allergy/AdvReac Type Severity Reaction Status Date / Time Oxycodone [From Percocet] Allergy Hives Verified 04/13/17 21:32 tramadol Allergy Hives Verified 04/13/17 21:32 All Systems PM: A 10-system review of systems was performed and is negative for pertinent findings except as documented above in the HPI. - Constitutional Vitals: Temp Pulse Resp BP Pulse Ox 97.9 F 75 16 158/101 99 04/25/17 03:22 04/25/17 05:14 04/25/17 05:14 04/25/17 05:14 04/25/17 05:14 General appearance: Present: A&O X 3, no acute distress, answers questions appropriately - Head Head exam: Present: atraumatic, normocephalic - Eye Eye exam: Present: PERRL, conjuntiva pink, sclera anicteric Pupils: Present: PERRL - Neck Neck exam general surgery: Present: supple, trachea midline. Absent: lymphadenopathy - Respiratory Respiratory exam: Present: chest wall tenderness, CTAB. Absent: accessory muscle use, rales, rhonchi, wheezes - Cardiovascular Cardiovascular exam: Present: RRR, +S1, +S2. Absent: diastolic murmur, gallop, rubs, systolic murmur - GI/Abdominal GI/Abdominal exam: Present: normal bowel sounds, soft, tenderness (mild epigastric tenderness w/o guarding or rebound), no peritoneal signs. Absent: distended - Extremities Exam Extremities exam: Present: warm, radial pulses palpable and symmetrical. Absent : calf tenderness, cyanotic, pedal edema - Neurological Exam Neurological exam: Present: CN II-XII intact, oriented X3, no focal deficits. Absent: pronater drift, facial droop, speech deficit - Skin Skin exam: Present: dry, intact Internal Med - H&P Results - Labs CBC & Chem 7: 04/25/17 03:40 04/25/17 03:40 Labs: Short CBC 04/25/17 Range/Units 03:40 WBC 9.7 (4.3-11.1) K/mcL Hgb 13.2 (12.9-16.9) g/dL Hct 41.3 (37.5-50.1) % Plt Count 202 (140-400) K/mcL Neutrophils # 7.1 (1.6-8.9) K/mcL BMP 04/25/17 03:40 Sodium 140 Potassium 3.8 Chloride 108 H Carbon Dioxide 25 BUN 22 Creatinine 1.12 Glucose 162 H Calcium 8.9 Cardiac Enzymes 04/25/17 Range/Units 03:40 Troponin I 0.03 (< 0.04) ng/mL - EKG Data -: EKG Interpreted by Myself (Paced rhythm) - Impressions ITS Impressions Chest X-Ray 04/25/17 03:30 IMPRESSION: Bibasilar atelectasis or pneumonia. D/ / Jasper Devine MD / Jasper Devine MD Interpreting Provider: Jasper Devine MD
[2017-04-25] MEDS: Insulin LISPRO 300 UNITS/3 ML VIAL SQ SCH ×4 (09:05→21:11)
[2017-04-25] MEDS: Isosorbide MONOnitrate (24 HR) 30 MG TAB.ER.24H PO SCH (09:07)
[2017-04-25] MEDS: Aspirin Enteric Coated 81 MG Tablet PO SCH (09:07)
[2017-04-25] MEDS: *HR* Ticagrelor 90 MG TABLET PO SCH ×2 (09:08→20:27)
[2017-04-25] MEDS: Furosemide 40 MG/4 ML VIAL IVP SCH (09:11)
[2017-04-25] MEDS: *HR* HYDROcodone/Acet 5/325 mg TABLET PO PRN (14:59)
--- NOTE | 2017-04-25 16:57 | Electrocardiograph Report ---
[place] [id number] Test Date: 2017-04-25 Pat Name: Yue Pizarro Department: 102 Room: 2A11 Gender: M Shelter Case Manager: : [id number] Requested By: Julio Cesar Metzger Order Number: [id number] Reading MD: Odalis Garcia Measurements Intervals [place] Rate: 81 P: 118 MT: 150 QRS: -51 QRSD: 197 T: 133 QT: 484 QTc: 521 Interpretive Statements ELECTRONIC ATRIAL PACEMAKER ELECTRONIC VENTRICULAR PACEMAKER ABNORMAL RHYTHM ECG Electronically Signed On 04-25-2017 16:55:58 EST by Odalis Garcia
[2017-04-25] MEDS: *HR* Heparin 5,000 UNIT/ML VIAL SQ SCH (17:06)
--- NOTE | 2017-04-25 17:45 | Event Note ---
Date of Encounter: 04/25/17 Time of Encounter: 09:13 Presented for acute chest pain. He is currently having chest pain that is lasting 5-10 minutes at a time. VS: afebrile, BP 130-170/60-103, HR 60-70. Physical exam.: Gen: AAOx3, NAD HEENT: NC/AT, no JVD, Resp: CTAB, no accessory muscle use, no rales, no wheezing, no rhonchi CVS: RRR, no mrg GI: soft, mild ttp epigastric, no guarding, no peritoneal signs. Ext: no cyanosis, no edema Skin: warm dry A/P: 1. Chest pain rule out acute coronary syndrome 2. HFrEF - last EF 40% 3. CAD - recent stent 10/2016 4. T2DM 5. HTN - Consult Cardiology if repeat troponin negative: recent stress test negative , patient still having chest pain - Continue Tele monitoring - Strict I/O, daily weights - Cardiac and fluid restrict diet - Lasix 40 mg IV daily - Continue BB, ACEi. s/p AICD - DAPT, Statin, Imdur, BB. - ISS, Diabetic diet
[2017-04-25] MEDS: Ondansetron 4 MG/2 ML VIAL IVP PRN (18:37)
[2017-04-26 03:58] LABS: Basophils # 0.1 K/mcL (0.0-0.2); Basophils % 0.7 %; Eosinophils # 0.2 K/mcL (0.0-0.6); Eosinophils % 2.3 %; Hematocrit 37.2 % (37.5-50.1); Hemoglobin 12.2 g/dL (12.9-16.9); Immature Granulocytes % 0.3 % (0-4); Lymphocytes # 1.5 K/mcL (0.6-4.6); Lymphocytes % 15.1 %; Mean Corpuscular HGB Conc 32.8 g/dL (31.6-35.5); Mean Corpuscular Hemoglobin 27.2 pg (28.0-33.3); Mean Platelet Volume 11.3 fL (9.4-12.4); Monocytes # 0.8 K/mcL (0.0-1.3); Monocytes % 8.2 %; Neutrophils # 7.2 K/mcL (1.6-8.9); Platelet Count 167 K/mcL (140-400); Red Blood Count 4.48 M/mcL (4.19-5.50); Red Cell Distribution Width 15.1 % (11.5-14.5); Segmented Neutrophils % 73.4 %
[2017-04-26 04:11] LABS: BUN/Creatinine Ratio 17 (6-26); Blood Urea Nitrogen 19 mg/dL (8-23); Calcium 9.1 mg/dL (8.6-10.3); Carbon Dioxide 28 mEq/L (23-29); Chloride 107 mEq/L (98-107); Glucose 107 mg/dL (70-105); Magnesium 1.9 mg/dL (1.6-2.6); Osmolality,Calculated 295 (280-300); Potassium 3.7 mEq/L (3.5-5.1); Sodium 141 mEq/L (136-145); eGFR For African Americans > 60 (> 60); eGFR For Non-African Americans > 60 (> 60)
[2017-04-26] MEDS: *HR* Heparin 5,000 UNIT/ML VIAL SQ SCH ×2 (06:00→16:28)
[2017-04-26] MEDS: *HR* Ticagrelor 90 MG TABLET PO SCH ×2 (08:17→20:29)
[2017-04-26] MEDS: *HR* HYDROcodone/Acet 5/325 mg TABLET PO PRN (08:18)
[2017-04-26] MEDS: Aspirin Enteric Coated 81 MG Tablet PO SCH (08:19)
[2017-04-26] MEDS: Isosorbide MONOnitrate (24 HR) 30 MG TAB.ER.24H PO SCH (08:19)
[2017-04-26] MEDS: Furosemide 40 MG/4 ML VIAL IVP SCH (08:20)
--- NOTE | 2017-04-26 09:04 | Cardiology Consult Note ---
Date of Encounter: 04/26/17 Time of Encounter: 09:04 Assessment and Plan (1) Chest pain Current Visit: No Status: Acute Patient reports intermittent chest pain that is reproducible and worsens with deep breaths. This appear musculoskeletal in nature. Recommend the use of NSAIDs to treat this pain. Trops negative x 3. Patient had recent work up including stress test which were negative for Ischemia. No need for further work up at this time. can consider increasing imdur, thought his pain does not seem anginal. However given patient's noncompliance would recommend just maximizing adherence to current medical regimen. Qualifiers: Chest pain type: precordial pain Qualified Code(s): R07.2 - Precordial pain (2) Congestive heart failure Current Visit: No Status: Acute Patient on TEE, BB, lasix, statin, ASA. agree with diuresis. Qualifiers: Congestive heart failure type: combined Congestive heart failure chronicity : acute on chronic Qualified Code(s): I50.43 - Acute on chronic combined systolic (congestive) and diastolic (congestive) heart failure (3) CAD (coronary artery disease) Current Visit: No Status: Chronic Patient on TEE, BB, lasix, statin, ASA, Imdur, brilinta. Qualifiers: Coronary Disease-Associated Artery/Lesion type: bypass graft [place] vs. transplanted heart: [place] heart Associated angina: with stable angina Qualified Code(s): I25.708 - Atherosclerosis of coronary artery bypass graft(s) , unspecified, with other forms of angina pectoris Discussion w patient/family: The assessment and plan as outlined above was discussed with the patient and/or family members who expressed understanding and agreement. All questions were answered. Thank you for involving us in the care of your patient. Please call with any questions. History of Present Illness Consult date: 04/25/17 Requesting physician: Mike Fox Consult reason: Chest Pain, CAD Chief complaint: Chest Pain History of present illness: Mr. Pizarro is a 76 year old male well known to the cardiology service with a PMHx of CAD s/p CABG and PCI, CVA, A fib, CHF s/p Pacemaker/AICD, DM, HTN, asthma, thyroid disease who reports to hospital c/o intermittent chest pain. Patient appears to have several types of chest pain. Patient appears to have some elements of musculoskeletal pain that improves with NSAIDs, opioids, GERD like pain that improves with antacids, pleuritic type pain, and possible anginal type pain that improves with NG. Patient has had many admissions for chest pain and has been throughly worked up. Patient just had a stress test on that showed no perfusion evidence of ischemia. During this hospitalization Troponin's are negative X 3. BNP 481 being diuresed for mild CHF exacerbation. Per review of outpatient records there have been multiple issues with this patient and spouse, compliance and concern for competence. APS and SS have been involved. Patient endorses compliance with meds since out patient hospital d/u on 04/22/17, but based on documentation from that encounter patient was not taking any of his meds prior to that visit and there have been issues with compliance in the past. Patient was sent home 2 admissions ago on home oxygen but never filled Rx. Patient was re-evaluated for Oxygen last visit and did not qualify. Per nursing patient requires oxygen for comfort/anxiety but does not desaturate off of oxygen. Past Med Surg Social Fam HX - Past Medical History Medical history: asthma, atrial fibrillation, CHF, coronary artery disease, CVA , diabetes, hypertension, myocardial infarction, thyroid disease Psychiatric history: no psych history - Past Surgical History Surgical History: angioplasty/stent, cholecystectomy, coronary bypass (CABG), pacemaker/AICD - Social History Smoking Status: Former smoker Smokeless Tobacco Status: No Alcohol use: none Drug use: none - Family History Grandfather Family Member Ethnicity: Non- Living Status: Hx Family Cardiac Disorders: Yes ([place]) Mother Family Member Ethnicity: Non- Living Status: Hx Family Neurologic Disorders: Yes (CVA) Father Adopted: No Family Member Ethnicity: Non- Living Status: Hx Family Cardiac Disorders: No Hx Family Respiratory Disorders: No Hx Family Cancer: Yes (Unknown what type) Hx Family GI Disorders: No Hx Family Endocrine Disorder: No Hx Family Neuromuscular Disorders: No Hx Family Neurologic Disorders: No Hx Family HEENT Disorders: No Hx Family Autoimmune Disorders: No Medications and Allergies Nitroglycerin [Nitrostat] 0.4 mg SL Q5M PRN 10/01/16 [History] Omeprazole [PriLOSEC] 20 mg PO BIDAC #60 11/04/16 [Rx] Ascorbate Calcium [Vitamin C] 500 mg PO DAILY 11/14/16 [History] Cyanocobalamin (Vitamin B-12) [Vitamin B12] 1,000 mcg PO DAILY 11/14/16 [History ] Multivitamin [One Daily Essential] 1 tab PO DAILY 11/14/16 [History] Aspirin Enteric Coated [Aspirin EC] 81 mg PO DAILY #30 tablet. 12/24/16 [Rx] Atorvastatin [Lipitor] 40 mg PO HS #30 tablet 12/24/16 [Rx] Carvedilol [Coreg] 3.125 mg PO BIDWM 30 Days tab 12/24/16 [Rx] Isosorbide MONOnitrate (24 HR) [Imdur] 120 mg PO DAILY #30 tab 12/24/16 [Rx] Lisinopril [Zestril] 2.5 mg PO DAILY #30 tab 12/24/16 [Rx] Tamsulosin [Flomax] 0.4 mg PO DAILY #30 capsule 12/24/16 [Rx] Ticagrelor [Brilinta] 90 mg PO BID 30 Days tab 12/24/16 [Rx] metFORMIN [Glucophage] 500 mg PO BID #60 tablet 12/24/16 [Rx] Docusate [Colace] 100 mg PO BID PRN #30 capsule 03/05/17 [Rx] Furosemide [Lasix] 20 mg PO BID 04/14/17 [History] 3 Allergy/AdvReac Type Severity Reaction Status Date / Time Oxycodone [From Percocet] Allergy Hives Verified 04/13/17 21:32 tramadol Allergy Hives Verified 04/13/17 21:32 All Systems Review: A 10-system review of systems was performed and is negative for pertinent findings except as documented above in the HPI. Physical Examination Vital Signs, Last 4 Hours Temp Pulse Resp BP Pulse Ox 04/26/17 06:46 98.1 F 63 17 150/79 96 General: Conversant, No Apparent Distress HEENT: Atraumatic, Normocephaly, Mucus Membranes Moist Neck: No JVD Cardiac: Reg Rate and Rhythm, Normal S1 and S2, No Murmur Lungs: Other (bibasilar crackles) Neuro: Alert and responsive, No focal deficits noted Abdomen: Soft, Non-Tender Skin: No rashes noted on visualized skin Musculoskeletal: Other (Chest wall tender to palpation) Extremities: No Clubbing, No Cyanosis, No Edema, Normal Pulses Results 04/26/17 03:01 04/26/17 03:01 Lab Results 04/25/17 04/26/17 04/26/17 12:14 03:01 03:01 WBC 9.8 Hgb 12.2 L Hct 37.2 L Plt Count 167 Sodium 141 Potassium 3.7 Chloride 107 Carbon Dioxide 28 BUN 19 Creatinine 1.09 Glucose 107 H Calcium 9.1 Magnesium 1.9 Troponin I 0.03 Consult Discharge Plan - Plan Referrals: Lance Cronin MD [Primary Care Provider] - 05/03/17 3:15 pm (Please follow up as schedule....)
[2017-04-26] MEDS ORDERED: Ketorolac 15 MG/ML VIAL IVP PRN (09:27)
--- NOTE | 2017-04-26 12:10 | Internal Med Progress Note ---
Date of Encounter: 04/26/17 Time of Encounter: 11:45 - Assessment and plan (1) Acute on chronic systolic (congestive) heart failure Current Visit: No Status: Acute Assessment and plan: Continue IV diuresis O2 supplementation continue fluid restriction diet monitor I/Os, daily weights continue home dose of Jasiel inh, statin, asa cardiology on board and consultation appreciated (2) CAD (coronary artery disease) Current Visit: No Status: Chronic Assessment and plan: chest pain resolved at this time continue home dose of ASA, Brilinta, Imdur ASA, statin, BB Qualifiers: Coronary Disease-Associated Artery/Lesion type: bypass graft [place] vs. transplanted heart: [place] heart Associated angina: with stable angina Qualified Code(s): I25.708 - Atherosclerosis of coronary artery bypass graft(s) , unspecified, with other forms of angina pectoris (3) Chest pain Current Visit: Yes Status: Resolved Qualifiers: Chest pain type: unspecified Qualified Code(s): R07.9 - Chest pain, unspecified (4) Diabetes mellitus Current Visit: No Status: Chronic Assessment and plan: sliding scale insulin algorithm monitor FS and BG ADA diet Qualifiers: Diabetes mellitus type: type 2 Diabetes mellitus complication status: without complication Diabetes mellitus penitentiary insulin use: without penitentiary use Qualified Code(s): E11.9 - Type 2 diabetes mellitus without complications (5) DVT prophylaxis Current Visit: No Status: Acute Assessment and plan: Heparin SQ (6) HLD (hyperlipidemia) Current Visit: No Status: Chronic Assessment and plan: continue statin therapy Qualifiers: Hyperlipidemia type: unspecified Qualified Code(s): E78.5 - Hyperlipidemia , unspecified (7) Hypertension Current Visit: No Status: Chronic Assessment and plan: BP within acceptable range continue home meds Qualifiers: Hypertension type: essential hypertension Qualified Code(s): I10 - Essential (primary) hypertension - Subjective Interval history: Patient seen and examined at bedside. Pt reports of resolution of chest pain at this time. Currently well on nasal cannula. Pt has history of noncompliance which is contributing to his current presentation. I had a discussion with the patient about his advance directives, he is requesting time to think about it and discuss further with his family. - Constitutional Vitals: Temp Pulse Resp BP Pulse Ox 97.3 F L 66 16 120/78 94 04/26/17 11:40 04/26/17 11:40 04/26/17 11:40 04/26/17 11:40 04/26/17 11:40 General appearance: Present: A&O X 3, no acute distress, answers questions appropriately - Head Head exam: Present: atraumatic, normocephalic - Eye Eye exam: Present: conjuntiva pink, sclera anicteric - Respiratory Respiratory exam: Absent: respiratory distress, wheezes (scattered rales) - Cardiovascular Cardiovascular exam: Present: RRR, +S1, +S2. Absent: diastolic murmur, gallop, rubs, systolic murmur - GI/Abdominal GI/Abdominal exam: Present: normal bowel sounds, soft, no peritoneal signs. Absent: distended, tenderness - Extremities Exam Extremities exam: Present: warm, radial pulses palpable and symmetrical. Absent : calf tenderness, pedal edema - Neurological Exam Neurological exam: Present: alert, oriented X3 - Psychiatric Psychiatric exam: Present: normal affect, normal mood Internal Medicine: Result - Labs CBC & Chem 7: 04/26/17 03:01 04/26/17 03:01 Labs: Short CBC 04/26/17 Range/Units 03:01 WBC 9.8 (4.3-11.1) K/mcL Hgb 12.2 L (12.9-16.9) g/dL Hct 37.2 L (37.5-50.1) % Plt Count 167 (140-400) K/mcL Neutrophils # 7.2 (1.6-8.9) K/mcL BMP 04/26/17 03:01 Sodium 141 Potassium 3.7 Chloride 107 Carbon Dioxide 28 BUN 19 Creatinine 1.09 Glucose 107 H Calcium 9.1 Cardiac Enzymes 04/25/17 Range/Units 12:14 Troponin I 0.03 (< 0.04) ng/mL Consult Discharge Plan - Plan Referrals: Lance Cronin MD [Primary Care Provider] - 05/03/17 3:15 pm (Please follow up as schedule....)
[2017-04-26] MEDS: Insulin LISPRO 300 UNITS/3 ML VIAL SQ SCH ×4 (12:18→21:21)
[2017-04-26] MEDS: Ondansetron 4 MG/2 ML VIAL IVP PRN (14:06)
[2017-04-27] MEDS: *HR* HYDROcodone/Acet 5/325 mg TABLET PO PRN ×3 (04:38→22:07)
[2017-04-27 06:03] LABS: Basophils # 0.1 K/mcL (0.0-0.2); Basophils % 0.7 %; Eosinophils # 0.2 K/mcL (0.0-0.6); Eosinophils % 2.6 %; Hematocrit 39.1 % (37.5-50.1); Immature Granulocytes % 0.3 % (0-4); Lymphocytes # 1.2 K/mcL (0.6-4.6); Lymphocytes % 13.1 %; Mean Corpuscular HGB Conc 33.2 g/dL (31.6-35.5); Mean Corpuscular Hemoglobin 27.6 pg (28.0-33.3); Mean Platelet Volume 11.1 fL (9.4-12.4); Monocytes # 0.8 K/mcL (0.0-1.3); Monocytes % 9.2 %; Neutrophils # 6.5 K/mcL (1.6-8.9); Platelet Count 178 K/mcL (140-400); Red Blood Count 4.71 M/mcL (4.19-5.50); Red Cell Distribution Width 15.3 % (11.5-14.5); Segmented Neutrophils % 74.1 %
[2017-04-27] MEDS: *HR* Heparin 5,000 UNIT/ML VIAL SQ SCH ×2 (06:08→18:32)
[2017-04-27 06:23] LABS: BUN/Creatinine Ratio 21 (6-26); Blood Urea Nitrogen 23 mg/dL (8-23); Calcium 9.3 mg/dL (8.6-10.3); Carbon Dioxide 28 mEq/L (23-29); Chloride 106 mEq/L (98-107); Glucose 118 mg/dL (70-105); Magnesium 1.8 mg/dL (1.6-2.6); Osmolality,Calculated 293 (280-300); Phosphorous 3.6 mg/dL (2.7-4.5); Potassium 3.8 mEq/L (3.5-5.1); Sodium 139 mEq/L (136-145); eGFR For African Americans > 60 (> 60); eGFR For Non-African Americans > 60 (> 60)
[2017-04-27] MEDS: Insulin LISPRO 300 UNITS/3 ML VIAL SQ SCH ×5 (07:33→20:54)
[2017-04-27] MEDS: *HR* Ticagrelor 90 MG TABLET PO SCH ×2 (07:33→20:53)
[2017-04-27] MEDS: Aspirin Enteric Coated 81 MG Tablet PO SCH (07:33)
[2017-04-27] MEDS: Furosemide 40 MG/4 ML VIAL IVP SCH (07:34)
[2017-04-27] MEDS: Isosorbide MONOnitrate (24 HR) 30 MG TAB.ER.24H PO SCH (07:34)
--- NOTE | 2017-04-27 11:55 | Internal Med Progress Note ---
Date of Encounter: 04/27/17 Time of Encounter: 11:15 - Assessment and plan (1) Acute on chronic systolic (congestive) heart failure Current Visit: No Status: Acute Assessment and plan: Clinically improving will d/c IV lasix and start PO lasix in am (lasix 40mg PO BID) O2 supplementation continue fluid restriction diet monitor I/Os, daily weights continue home dose of Jasiel inh, statin, asa cardiology on board and consultation appreciated (2) CAD (coronary artery disease) Current Visit: No Status: Chronic Assessment and plan: chest pain resolved at this time continue home dose of ASA, Brilinta, Imdur ASA, statin, BB Qualifiers: Coronary Disease-Associated Artery/Lesion type: bypass graft [place] vs. 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: without [place] [facility] use Qualified Code(s): E11.9 - Type 2 diabetes mellitus without complications (5) DVT prophylaxis Current Visit: No Status: Acute Assessment and plan: Heparin SQ (6) HLD (hyperlipidemia) Current Visit: No Status: Chronic Assessment and plan: continue statin therapy Qualifiers: Hyperlipidemia type: unspecified Qualified Code(s): E78.5 - Hyperlipidemia , unspecified (7) Hypertension Current Visit: No Status: Chronic Assessment and plan: BP within acceptable range continue home meds Qualifiers: Hypertension type: essential hypertension Qualified Code(s): I10 - Essential (primary) hypertension - Subjective Interval history: Patient seen and examined at bedside. Resting comfortably in bed and denies any chest pain at this time. Saturating well on nasal cannula. As per med records, pt has been noncompliant with medications and allowing set up on home oxygen services in the past. Pt to undergo home O2 qualification testing and is in agreement to set up home O2 if needed PT/OT evaluation requested - Constitutional Vitals: Temp Pulse Resp BP Pulse Ox 98.6 F 67 14 93/54 94 04/27/17 10:08 04/27/17 10:08 04/27/17 10:08 04/27/17 10:08 04/27/17 10:08 General appearance: Present: A&O X 3, no acute distress, answers questions appropriately - Head Head exam: Present: atraumatic, normocephalic - Eye Eye exam: Present: conjuntiva pink, sclera anicteric - Respiratory Respiratory exam: Absent: rales (equal air entry bilaterally ), respiratory distress, wheezes - Cardiovascular Cardiovascular exam: Present: RRR, +S1, +S2. Absent: diastolic murmur, gallop, rubs, systolic murmur - GI/Abdominal GI/Abdominal exam: Present: normal bowel sounds, soft, no peritoneal signs. Absent: distended, tenderness - Extremities Exam Extremities exam: Present: warm, radial pulses palpable and symmetrical. Absent : calf tenderness, pedal edema - Neurological Exam Neurological exam: Present: alert, oriented X3 - Psychiatric Psychiatric exam: Present: normal affect, normal mood Internal Medicine: Result - Labs CBC & Chem 7: 04/27/17 05:36 04/27/17 05:36 Labs: Short CBC 04/27/17 Range/Units 05:36 WBC 8.8 (4.3-11.1) K/mcL Hgb 13.0 (12.9-16.9) g/dL Hct 39.1 (37.5-50.1) % Plt Count 178 (140-400) K/mcL Neutrophils # 6.5 (1.6-8.9) K/mcL BMP 04/27/17 05:36 Sodium 139 Potassium 3.8 Chloride 106 Carbon Dioxide 28 BUN 23 Creatinine 1.08 Glucose 118 H Calcium 9.3 Consult Discharge Plan - Plan Referrals: Lance Cronin MD [Primary Care Provider] - 05/03/17 3:15 pm (Please follow up as schedule....)
[2017-04-28] MEDS: *HR* HYDROcodone/Acet 5/325 mg TABLET PO PRN (04:07)
[2017-04-28 04:34] LABS: Basophils # 0.1 K/mcL (0.0-0.2); Basophils % 0.7 %; Eosinophils # 0.3 K/mcL (0.0-0.6); Eosinophils % 3.3 %; Hematocrit 43.3 % (37.5-50.1); Hemoglobin 14.2 g/dL (12.9-16.9); Immature Granulocytes % 0.4 % (0-4); Lymphocytes # 1.7 K/mcL (0.6-4.6); Lymphocytes % 20.9 %; Mean Corpuscular HGB Conc 32.8 g/dL (31.6-35.5); Mean Corpuscular Hemoglobin 27.4 pg (28.0-33.3); Mean Corpuscular Volume 83.4 fL (83.0-100.0); Mean Platelet Volume 11.3 fL (9.4-12.4); Monocytes # 0.8 K/mcL (0.0-1.3); Monocytes % 9.3 %; Neutrophils # 5.3 K/mcL (1.6-8.9); Platelet Count 180 K/mcL (140-400); Red Blood Count 5.19 M/mcL (4.19-5.50); Red Cell Distribution Width 15.3 % (11.5-14.5); Segmented Neutrophils % 65.4 %
[2017-04-28 05:01] LABS: BUN/Creatinine Ratio 23 (6-26); Blood Urea Nitrogen 25 mg/dL (8-23); Calcium 9.5 mg/dL (8.6-10.3); Carbon Dioxide 26 mEq/L (23-29); Chloride 105 mEq/L (98-107); Glucose 109 mg/dL (70-105); Magnesium 1.9 mg/dL (1.6-2.6); Osmolality,Calculated 291 (280-300); Phosphorous 3.8 mg/dL (2.7-4.5); Potassium 4.1 mEq/L (3.5-5.1); Sodium 138 mEq/L (136-145); eGFR For African Americans > 60 (> 60); eGFR For Non-African Americans > 60 (> 60)
[2017-04-28] MEDS: *HR* Heparin 5,000 UNIT/ML VIAL SQ SCH (05:36)
[2017-04-28] MEDS: Insulin LISPRO 300 UNITS/3 ML VIAL SQ SCH (07:29)
[2017-04-28] MEDS ORDERED: Furosemide 40 MG TABLET PO SCH (08:00)
[2017-04-28] MEDS: Isosorbide MONOnitrate (24 HR) 30 MG TAB.ER.24H PO SCH (09:22)
[2017-04-28] MEDS: Aspirin Enteric Coated 81 MG Tablet PO SCH (09:23)
[2017-04-28] MEDS: *HR* Ticagrelor 90 MG TABLET PO SCH (09:23)
--- NOTE | 2017-04-28 10:34 | Discharge Summary ---
Date of Encounter: 04/28/17 Time of Encounter: 08:55 - Discharge Diagnosis (1) Acute on chronic systolic (congestive) heart failure Priority: Primary Status: Acute (2) CAD (coronary artery disease) Priority: Secondary Status: Chronic Qualifiers: Coronary Disease-Associated Artery/Lesion type: bypass graft [place] vs. 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: without alf use Qualified Code(s): E11.9 - Type 2 diabetes mellitus without complications (5) DVT prophylaxis Priority: Secondary Status: Acute (6) HLD (hyperlipidemia) Priority: Secondary Status: Chronic Qualifiers: Hyperlipidemia type: unspecified Qualified Code(s): E78.5 - Hyperlipidemia , unspecified (7) Hypertension Priority: Secondary Status: Chronic Qualifiers: Hypertension type: essential hypertension Qualified Code(s): I10 - Essential (primary) hypertension - Discharge Medications Prescriptions: Furosemide [Lasix] 40 mg PO BIDDIURETIC #60 tablet Home Medications: Nitroglycerin [Nitrostat] 0.4 mg SL Q5M PRN 10/01/16 [History] Omeprazole [PriLOSEC] 20 mg PO BIDAC #60 11/04/16 [Rx] Ascorbate Calcium [Vitamin C] 500 mg PO DAILY 11/14/16 [History] Cyanocobalamin (Vitamin B-12) [Vitamin B12] 1,000 mcg PO DAILY 11/14/16 [History ] Multivitamin [One Daily Essential] 1 tab PO DAILY 11/14/16 [History] Aspirin Enteric Coated [Aspirin EC] 81 mg PO DAILY #30 tablet. 12/24/16 [Rx] Atorvastatin [Lipitor] 40 mg PO HS #30 tablet 12/24/16 [Rx] Carvedilol [Coreg] 3.125 mg PO BIDWM 30 Days tab 12/24/16 [Rx] Isosorbide MONOnitrate (24 HR) [Imdur] 120 mg PO DAILY #30 tab 12/24/16 [Rx] Lisinopril [Zestril] 2.5 mg PO DAILY #30 tab 12/24/16 [Rx] Tamsulosin [Flomax] 0.4 mg PO DAILY #30 capsule 12/24/16 [Rx] Ticagrelor [Brilinta] 90 mg PO BID 30 Days tab 12/24/16 [Rx] metFORMIN [Glucophage] 500 mg PO BID #60 tablet 12/24/16 [Rx] Docusate [Colace] 100 mg PO BID PRN #30 capsule 03/05/17 [Rx] Furosemide [Lasix] 40 mg PO BIDDIURETIC #60 tablet 04/28/17 [Rx] Allergies/Adverse Reactions: 3 Allergy/AdvReac Type Severity Reaction Status Date / Time Oxycodone [From Percocet] Allergy Hives Verified 04/13/17 21:32 tramadol Allergy Hives Verified 04/13/17 21:32 Date of admission: 04/27/17 14:54 Primary care physician: Lance Cronin MD Consults: cardiology: Dr. martinez Discharging clinician: Mony Terrazas Anticipated date of discharge: 04/28/17 - Patient Status Disposition: Home, Self-Care Condition: Good Overall status at discharge: patient is back to baseline - Discharge Instructions Follow Up With: Lance Cronin MD [Primary Care Provider] - 05/03/17 3:15 pm (Please follow up as schedule....) Additional Instructions: Please follow up with your primary care physician within five days after your discharge from the hospital. Please follow up with cardiology within one to two weeks after your discharge from the hospital. Your home dose of lasix has been increased to 40mg twice a day. Please ask your asian art curator about continuation of this dose. Resume all other medications as prescribed by your primary care physician. - Diet and Activity Activity: increase activity as tolerated Diet: diabetic diet, low fat, low cholesterol, low salt diet Hospital course: Mr. Pizarro is a 76 year old male with PMH of CAD s/p stent placement, CHF, s/ p PPM/AICD, DM, HTN who was admitted for chest pain and CHF exacerbation. Pt was started on IV diuretics and cardiology evaluated the patient. Pt's lasix dose was adjusted and ACS was ruled out. Pt's chest pain improved with management of acute CHF exacerbation. He was evaluated by physical therapy and ECF was recommended, patient refused both ECF placement and home health services. He has history of noncompliance with medications and follow up. His respiratory status returned to baseline and has been saturating well on room air. He did not qualify for home oxygen therapy. At this time he is stable for discharge to home with follow up with PCP and cardiology. Extensive counseling provided about med compliance. - Time Spent with Patient Total time spent providing and/or coordinating discharge services: Less than 30 minutes - Constitutional Vitals: Temp Pulse Resp BP Pulse Ox 97.5 F L 63 18 138/86 97 04/28/17 07:07 04/28/17 07:07 04/28/17 07:07 04/28/17 07:07 04/28/17 07:07 General appearance: Present: A&O X 3, no acute distress, answers questions appropriately - Head Head exam: Present: atraumatic, normocephalic - Eye Eye exam: Present: conjuntiva pink, sclera anicteric - Respiratory Respiratory exam: Present: CTAB. Absent: accessory muscle use, rales, rhonchi, wheezes - Cardiovascular Cardiovascular exam: Present: RRR, +S1, +S2 - GI/Abdominal GI/Abdominal exam: Present: normal bowel sounds, soft, no peritoneal signs. Absent: distended, tenderness - Extremities Exam Extremities exam: Present: warm, radial pulses palpable and symmetrical. Absent : calf tenderness, pedal edema - Neurological Exam Neurological exam: Present: alert, oriented X3
[2017-04-28 10:41] VITALS: BP 145/77
== END 2017-04-28 11:10 | disposition home or self-care (01) | DRG 293 ==
LOC: EMEROO 03:19 → 2ANU 03:19
PROVIDERS: ADMIT Internal Medicine; ATTEND Internal Medicine

== ENCOUNTER 2017-05-08 21:11 | Inpatient (IN) ==
--- NOTE | 2017-05-08 21:24 | Emergency Department Note ---
Disposition Clinical Impression: Chest pain Qualifiers: Chest pain type: unspecified Qualified Code(s): R07.9 - Chest pain, unspecified Disposition: Admitted As Inpatient Condition: Fair Referrals: Lance Cronin MD [Primary Care Provider] - Forms: ED Satisfaction Letter Time of Disposition: 22:35 Chest Pain HPI - General Chief Complaint: ED Chest Pain Stated Complaint: Dizzy Time Seen by Provider: 05/08/17 21:17 Source: patient Mode of arrival: ambulatory Limitations: no limitations Vital Signs Reviewed: Yes Nursing Notes Reviewed: Yes - History of Present Illness HPI Narrative: 76-year-old comes in with dizziness lightheadedness, chest pain and some dyspnea. Pt complaint: chest pain Onset (ago): Just CHECK SCALER Duration: constant Onset: during rest Pain Location: substernal, left chest Severity: moderate Severity scale (1-10): 6 Quality: tightness, aching, heaviness Pain Radiation: none Improves with: nothing Worsens with: nothing Associated symptoms: Denies: fever, cough Treatments prior to arrival chest pain: none - Related Data Home Medications Medication Instructions Recorded Confirmed Nitroglycerin [Nitrostat] 0.4 mg SL Q5M PRN 10/01/16 04/25/17 Ascorbate Calcium [Vitamin C] 500 mg PO DAILY 11/14/16 04/25/17 Cyanocobalamin (Vitamin B-12) 1,000 mcg PO DAILY 11/14/16 04/25/17 [Vitamin B12] Multivitamin [One Daily Essential] 1 tab PO DAILY 11/14/16 04/25/17 Previous Rx's Medication Instructions Recorded Omeprazole [PriLOSEC] 20 mg PO BIDAC #60 11/04/16 Aspirin Enteric Coated [Aspirin EC] 81 mg PO DAILY #30 tablet.dr 12/24/16 Atorvastatin [Lipitor] 40 mg PO HS #30 tablet 12/24/16 Carvedilol [Coreg] 3.125 mg PO BIDWM 30 Days tab 12/24/16 Isosorbide MONOnitrate (24 HR) 120 mg PO DAILY #30 tab 12/24/16 [Imdur] Lisinopril [Zestril] 2.5 mg PO DAILY #30 tab 12/24/16 Tamsulosin [Flomax] 0.4 mg PO DAILY #30 capsule 12/24/16 Ticagrelor [Brilinta] 90 mg PO BID 30 Days tab 12/24/16 metFORMIN [Glucophage] 500 mg PO BID #60 tablet 12/24/16 Docusate [Colace] 100 mg PO BID PRN #30 capsule 03/05/17 Furosemide [Lasix] 40 mg PO BIDDIURETIC #60 tablet 04/28/17 Cephalexin [Keflex] 500 mg PO QID #28 capsule 05/08/17 Allergies Allergy/AdvReac Type Severity Reaction Status Date / Time Oxycodone [From Percocet] Allergy Hives Verified 04/13/17 21:32 tramadol Allergy Hives Verified 04/13/17 21:32 All systems ED: reviewed and negative except as stated. Constitutional: Denies: fever, chills, weakness, weight change Eyes: Denies: eye pain, eye discharge, vision change ENT ED: Denies: ear pain, throat pain, dental pain, hearing loss, epistaxis, congestion, dysphagia Cardiovascular: Reports: chest pain. Denies: palpitations, dyspnea on exertion , edema, syncope Respiratory: Denies: cough, dyspnea, wheezes, hemoptysis, stridor Gastrointestinal: Denies: abdominal pain, nausea, vomiting, diarrhea, constipation, hematemesis, melena, hematochezia Genitourinary: Denies: urgency, dysuria, frequency, hematuria Musculoskeletal: Denies: back pain, neck pain, arthralgia, myalgia Integumentary: Denies: rash, abrasion, lesions Neurological: Denies: headache, weakness, numbness, paresthesias, confusion, abnormal gait, vertigo Psychiatric: Denies: anxiety, depression, suicidal thoughts, homicidal thoughts , auditory hallucinations, visual hallucinations Endocrine: Denies: fatigue Hematological/Lymphatic: Denies: easy bleeding, easy bruising Allergic/Immunologic: Denies: facial swelling, urticaria Chest Pain PMH - Past Medical History Medical history: Reports: asthma, atrial fibrillation, CHF, coronary artery disease, CVA, diabetes, hypertension, myocardial infarction, thyroid disease Surgical history: Reports: angioplasty/stent, cholecystectomy, coronary bypass ( CABG), pacemaker/AICD Psychiatric history: Reports: no psych history - Social History Smoking Status: Former smoker Alcohol use: Reports: none Drug use: Reports: none Physical Exam - General Limitations: no limitations General appearance: alert, in no apparent distress - Head Head exam: atraumatic, normocephalic, normal inspection - Eye Eye exam: Present: normal appearance, PERRL, EOMI - ENT ENT exam: normal exam - Neck Neck exam: Present: normal inspection, full ROM, trachea midline - Chest Chest inspection: Present: normal inspection, symmetric chest wall rise - Respiratory Respiratory exam: Present: normal lung sounds bilaterally - Cardiovascular Cardiovascular exam: Present: regular rate, normal rhythm, normal heart sounds - Abdominal Exam Abdominal exam: Present: soft, Non-Tender. Absent: tenderness, distention, guarding, rebound, rigidity - Extremities Exam Extremities exam: Present: normal inspection, full ROM. Absent: tenderness, pedal edema - Expanded Lower Extremity Exam Neurovascular/Tendon exam: Absent: motor deficit, sensory deficit, tendon deficit Gait: observed and normal - Back Exam Back exam: Present: normal inspection, full ROM. Absent: tenderness - Neurological Exam Neurological exam: Present: alert, oriented X3 - Psychiatric Psychiatric exam: Present: normal affect, normal mood - Skin Skin exam: Present: warm, dry, intact, normal color Course - Reevaluation(s) Reevaluation #1: 76-year-old comes in complaint chest pain and dizziness. His troponin is slightly elevated 0.04. When reviewing the records he has intermittently where he has had a slightly elevated troponin. We will admit and make sure this is on its way up. Time: 22:34 Vital Signs Temperature 97.9 F 05/08/17 21:13 Pulse Rate 79 05/08/17 21:13 Respiratory Rate 16 05/08/17 21:13 Blood Pressure 175/115 05/08/17 21:13 O2 Sat by Pulse Oximetry 97 05/08/17 21:13 Temperature 97.9 F 05/08/17 21:13 Pulse Rate 68 05/08/17 21:49 Respiratory Rate 16 05/08/17 21:49 Blood Pressure 163/114 05/08/17 21:49 O2 Sat by Pulse Oximetry 92 05/08/17 21:50 Oxygen Delivery Oxygen Delivery Nasal Cannula Chest Pain - Lab Data Lab results reviewed: Yes I reviewed the patient's lab results. Result diagrams: 05/08/17 21:56 05/08/17 21:56 Lab Results 05/08/17 05/08/17 05/08/17 Range/Units 21:56 21:56 21:56 WBC 8.1 (4.3-11.1) K/mcL RBC 4.97 (4.19-5.50) M/mcL Hgb 13.7 (12.9-16.9) g/dL Hct 42.6 (37.5-50.1) % MCV 85.7 (83.0-100.0) fL MCH 27.6 L (28.0-33.3) pg MCHC 32.2 (31.6-35.5) g/dL RDW 16.2 H (11.5-14.5) % Plt Count 166 (140-400) K/mcL MPV 11.0 (9.4-12.4) fL Immature Gran % 0.1 (0-4) % Seg Neutrophils % 65.0 % Lymphocytes % 21.3 % Monocytes % 10.5 % Eosinophils % 2.4 % Basophils % 0.7 % Neutrophils # 5.3 (1.6-8.9) K/mcL Lymphocytes # 1.7 (0.6-4.6) K/mcL Monocytes # 0.9 (0.0-1.3) K/mcL Eosinophils # 0.2 (0.0-0.6) K/mcL Basophils # 0.1 (0.0-0.2) K/mcL PT 14.9 H (9.4-12.1) Seconds INR 1.4 APTT 32.2 (26.0-36.0) Seconds Sodium 140 (136-145) mEq/L Potassium 3.9 (3.5-5.1) mEq/L Chloride 107 (98-107) mEq/L Carbon Dioxide 27 (23-29) mEq/L BUN 32 H (8-23) mg/dL Creatinine 1.12 (0.70-1.30) mg/dL Est GFR ( Amer) > 60 (> 60) Est GFR (Non-Af Amer) > 60 (> 60) BUN/Creatinine Ratio 29 H (6-26) Glucose 137 H (70-105) mg/dL Calculated Osmolality 299 (280-300) Calcium 9.7 (8.6-10.3) mg/dL Troponin I (< 0.04) ng/mL 05/08/17 Range/Units 21:56 WBC (4.3-11.1) K/mcL RBC (4.19-5.50) M/mcL Hgb (12.9-16.9) g/dL Hct (37.5-50.1) % MCV (83.0-100.0) fL MCH (28.0-33.3) pg MCHC (31.6-35.5) g/dL RDW (11.5-14.5) % Plt Count (140-400) K/mcL MPV (9.4-12.4) fL Immature Gran % (0-4) % Seg Neutrophils % % Lymphocytes % % Monocytes % % Eosinophils % % Basophils % % Neutrophils # (1.6-8.9) K/mcL Lymphocytes # (0.6-4.6) K/mcL Monocytes # (0.0-1.3) K/mcL Eosinophils # (0.0-0.6) K/mcL Basophils # (0.0-0.2) K/mcL PT (9.4-12.1) Seconds INR APTT (26.0-36.0) Seconds Sodium (136-145) mEq/L Potassium (3.5-5.1) mEq/L Chloride (98-107) mEq/L Carbon Dioxide (23-29) mEq/L BUN (8-23) mg/dL Creatinine (0.70-1.30) mg/dL Est GFR ( Amer) (> 60) Est GFR (Non-Af Amer) (> 60) BUN/Creatinine Ratio (6-26) Glucose (70-105) mg/dL Calculated Osmolality (280-300) Calcium (8.6-10.3) mg/dL Troponin I 0.04 H* (< 0.04) ng/mL - Radiology Data Radiology results reviewed: Yes I reviewed the patient's radiology results. Chest X-Ray 05/08/17 21:42 IMPRESSION: Mild pulmonary edema. Pleural effusions. D/ / José Luis Garvin MD / José Luis Garvin MD Interpreting Provider: José Luis Garvin MD - EKG Data EKG attestation: Yes I reviewed and interpreted this EKG. EKG results narrative: Paced rhythm Heart Score - Score History: Slightly Suspicious EKG: Non Specific repolarisation Disturbance Age: Greater than 65 Risk Factors: Equal/Greater than 3 risk factor or history of atherosclerotic disease Troponin: Less than normal limit HEART Score Total: 5
[2017-05-08 22:03] LABS: Basophils # 0.1 K/mcL (0.0-0.2); Basophils % 0.7 %; Eosinophils # 0.2 K/mcL (0.0-0.6); Eosinophils % 2.4 %; Hematocrit 42.6 % (37.5-50.1); Hemoglobin 13.7 g/dL (12.9-16.9); Immature Granulocytes % 0.1 % (0-4); Lymphocytes # 1.7 K/mcL (0.6-4.6); Lymphocytes % 21.3 %; Mean Corpuscular HGB Conc 32.2 g/dL (31.6-35.5); Mean Corpuscular Hemoglobin 27.6 pg (28.0-33.3); Mean Corpuscular Volume 85.7 fL (83.0-100.0); Monocytes # 0.9 K/mcL (0.0-1.3); Monocytes % 10.5 %; Neutrophils # 5.3 K/mcL (1.6-8.9); Platelet Count 166 K/mcL (140-400); Red Blood Count 4.97 M/mcL (4.19-5.50); Red Cell Distribution Width 16.2 % (11.5-14.5)
[2017-05-08 22:09] LABS: INR 1.4; Prothrombin Time 14.9 Seconds (9.4-12.1)
[2017-05-08 22:12] LABS: Activated Partial Thrombo Time 32.2 Seconds (26.0-36.0)
[2017-05-08 22:22] LABS: BUN/Creatinine Ratio 29 (6-26); Blood Urea Nitrogen 32 mg/dL (8-23); Calcium 9.7 mg/dL (8.6-10.3); Carbon Dioxide 27 mEq/L (23-29); Chloride 107 mEq/L (98-107); Glucose 137 mg/dL (70-105); Osmolality,Calculated 299 (280-300); Potassium 3.9 mEq/L (3.5-5.1); Sodium 140 mEq/L (136-145); eGFR For African Americans > 60 (> 60); eGFR For Non-African Americans > 60 (> 60)
[2017-05-08] MEDS ORDERED: Nitroglycerin 1 INCH/GM PACKET TP ONE (22:33)
[2017-05-08] MEDS ORDERED: Aspirin 81 MG TAB.CHEW PO STA (22:34)
[2017-05-08] MEDS ORDERED: Furosemide 40 MG/4 ML VIAL IVP ONE (22:57)
[2017-05-08] MEDS ORDERED: Ipratropium/Albuterol Neb 3 ML IH ONE (22:57)
[2017-05-09] MEDS ORDERED: Naloxone 0.4 MG/ML INJ IVP PRN (01:08)
[2017-05-09] MEDS ORDERED: *HR* Dextrose 50 % in Water (Syg) 50 ML SYRINGE IVP PRN (01:12)
[2017-05-09] MEDS ORDERED: D5% in Water 1,000 ML IVC PRN (01:12)
[2017-05-09] MEDS ORDERED: Dextrose Gel 15 GM/37.5 ML TUBE PO PRN ×2 (01:12)
[2017-05-09] MEDS ORDERED: Nitroglycerin 0.4 MG TAB.SUBL SL PRN (01:13)
[2017-05-09 02:03] LABS: Basophils # 0.1 K/mcL (0.0-0.2); Basophils % 0.8 %; Eosinophils # 0.2 K/mcL (0.0-0.6); Eosinophils % 2.4 %; Hematocrit 42.1 % (37.5-50.1); Hemoglobin 13.8 g/dL (12.9-16.9); Immature Granulocytes % 0.3 % (0-4); Lymphocytes # 1.7 K/mcL (0.6-4.6); Lymphocytes % 19.1 %; Mean Corpuscular HGB Conc 32.8 g/dL (31.6-35.5); Mean Corpuscular Hemoglobin 27.6 pg (28.0-33.3); Mean Corpuscular Volume 84.2 fL (83.0-100.0); Mean Platelet Volume 11.3 fL (9.4-12.4); Monocytes # 0.8 K/mcL (0.0-1.3); Monocytes % 9.5 %; Neutrophils # 5.9 K/mcL (1.6-8.9); Platelet Count 159 K/mcL (140-400); Red Cell Distribution Width 16.2 % (11.5-14.5); Segmented Neutrophils % 67.9 %
[2017-05-09 02:34] LABS: BUN/Creatinine Ratio 27 (6-26); Blood Urea Nitrogen 31 mg/dL (8-23); Calcium 9.6 mg/dL (8.6-10.3); Carbon Dioxide 28 mEq/L (23-29); Chloride 105 mEq/L (98-107); Glucose 105 mg/dL (70-105); Osmolality,Calculated 301 (280-300); Potassium 3.4 mEq/L (3.5-5.1); Sodium 142 mEq/L (136-145); eGFR For African Americans > 60 (> 60); eGFR For Non-African Americans > 60 (> 60)
--- NOTE | 2017-05-09 02:49 | Internal Med History&Physical ---
Date of Encounter: 05/09/17 Time of Encounter: 01:00 Assessment and Plan (1) Chest pain Current visit: Yes Status: Chronic Pt has chest pain. Hx of CAD, need to r/o ACS - Cont monitoring engineer - Track 3 sets of troponin - Pt has most cardiac workup done recently. Qualifiers: Chest pain type: precordial pain Qualified Code(s): R07.2 - Precordial pain (2) CHF exacerbation Current visit: No Status: Acute Pt has hx of systolic CHF with EF 40%. Has recent increased SOB and increased Oxygen requirement. Consider CHF exacerbation. - strict I/O - Cardiac and fluid restriction diet - Lasix 40mg iv BID - Pt is on BB and ACEI and s/p AICD Qualifiers: Qualified Code(s): I50.23 - Acute on chronic systolic (congestive) heart failure (3) DVT prophylaxis Current visit: No Status: Acute Heparin sc (4) CAD (coronary artery disease) Current visit: No Status: Chronic Cont home med, recent stent in Oct 2016, Cont DAPT, BB, statin, imdur Qualifiers: Coronary Disease-Associated Artery/Lesion type: bypass graft [place] vs. 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 Pizarro is a 76 year old male with Hx of CAD s/p CABG and stent, systolic CHF s/p PPM/AICD, DM, present to ER for SOB for two days and chest pain since this afternoon. Pt has increased leg swelling and increased oxygen requirement. He normally on no home oxygen but needs high rate O2 now. He also started chest pain since this afternoon around 1 pm when he is at rest. Pain located on mid chest radiated to hid left arm and left leg, pressure like, 6/10, with nausea, no vomiting or diaphoresis. In ER, CXR shows pulmonary congestion, BNP is elevated. Pt was admitted as CHF exacerbation and CP to r/o ACS. Past Med Surg Social Fam HX - Past Medical History Medical history: asthma, atrial fibrillation, CHF, coronary artery disease, CVA , diabetes, hypertension, myocardial infarction, thyroid disease Psychiatric history: no psych history - Past Surgical History Surgical History: angioplasty/stent, cholecystectomy, coronary bypass (CABG), pacemaker/AICD - Social History Smoking Status: Former smoker Smokeless Tobacco Status: No Alcohol use: none Drug use: none - Family History Grandfather Family Member Ethnicity: Non- Living Status: Hx Family Cardiac Disorders: Yes (ND) Mother Family Member Ethnicity: Non- Living Status: Hx Family Neurologic Disorders: Yes (CVA) Father Adopted: No Family Member Ethnicity: Non- Living Status: Hx Family Cardiac Disorders: No Hx Family Respiratory Disorders: No Hx Family Cancer: Yes (Unknown what type) Hx Family GI Disorders: No Hx Family Endocrine Disorder: No Hx Family Neuromuscular Disorders: No Hx Family Neurologic Disorders: No Hx Family HEENT Disorders: No Hx Family Autoimmune Disorders: No Internal Medicine - H&P: Meds Nitroglycerin [Nitrostat] 0.4 mg SL Q5M PRN 10/01/16 [History] Omeprazole [PriLOSEC] 20 mg PO BIDAC #60 11/04/16 [Rx] Ascorbate Calcium [Vitamin C] 500 mg PO DAILY 11/14/16 [History] Cyanocobalamin (Vitamin B-12) [Vitamin B12] 1,000 mcg PO DAILY 11/14/16 [History ] Multivitamin [One Daily Essential] 1 tab PO DAILY 11/14/16 [History] Aspirin Enteric Coated [Aspirin EC] 81 mg PO DAILY #30 tablet.dr 12/24/16 [Rx] Atorvastatin [Lipitor] 40 mg PO HS #30 tablet 12/24/16 [Rx] Carvedilol [Coreg] 3.125 mg PO BIDWM 30 Days tab 12/24/16 [Rx] Isosorbide MONOnitrate (24 HR) [Imdur] 120 mg PO DAILY #30 tab 12/24/16 [Rx] Lisinopril [Zestril] 2.5 mg PO DAILY #30 tab 12/24/16 [Rx] Tamsulosin [Flomax] 0.4 mg PO DAILY #30 capsule 12/24/16 [Rx] Ticagrelor [Brilinta] 90 mg PO BID 30 Days tab 12/24/16 [Rx] metFORMIN [Glucophage] 500 mg PO BID #60 tablet 12/24/16 [Rx] Docusate [Colace] 100 mg PO BID PRN #30 capsule 03/05/17 [Rx] Furosemide [Lasix] 40 mg PO BIDDIURETIC #60 tablet 04/28/17 [Rx] Cephalexin [Keflex] 500 mg PO QID #28 capsule 05/08/17 [Rx] 3 Allergy/AdvReac Type Severity Reaction Status Date / Time Oxycodone [From Percocet] Allergy Hives Verified 04/13/17 21:32 tramadol Allergy Hives Verified 04/13/17 21:32 All Systems PM: A 10-system review of systems was performed and is negative for pertinent findings except as documented above in the HPI. - Constitutional Vitals: Temp Pulse Resp BP Pulse Ox 97.9 F 70 20 159/98 93 05/08/17 21:13 05/08/17 23:19 05/08/17 23:43 05/08/17 23:43 05/08/17 23:19 General appearance: Present: A&O X 3, no acute distress, answers questions appropriately - Head Head exam: Present: atraumatic, normocephalic - Eye Eye exam: Present: PERRL, conjuntiva pink, sclera anicteric Pupils: Present: PERRL - Neck Neck exam general surgery: Present: supple, trachea midline. Absent: lymphadenopathy - Respiratory Respiratory exam: Present: CTAB, rhonchi (scattered rhonchi b/l). Absent: accessory muscle use, rales, wheezes - Cardiovascular Cardiovascular exam: Present: RRR, +S1, +S2. Absent: diastolic murmur, gallop, rubs, systolic murmur - GI/Abdominal GI/Abdominal exam: Present: normal bowel sounds, soft, no peritoneal signs. Absent: distended, tenderness - Extremities Exam Extremities exam: Present: warm, radial pulses palpable and symmetrical. Absent : calf tenderness, cyanotic, pedal edema - Neurological Exam Neurological exam: Present: CN II-XII intact, oriented X3, no focal deficits. Absent: pronater drift, facial droop, speech deficit - Skin Skin exam: Present: dry, intact Internal Med - H&P Results - Labs CBC & Chem 7: 05/09/17 01:50 05/09/17 01:50 Labs: Short CBC 05/09/17 Range/Units 01:50 WBC 8.7 (4.3-11.1) K/mcL Hgb 13.8 (12.9-16.9) g/dL Hct 42.1 (37.5-50.1) % Plt Count 159 (140-400) K/mcL Neutrophils # 5.9 (1.6-8.9) K/mcL BMP 05/09/17 01:50 Sodium 142 Potassium 3.4 L Chloride 105 Carbon Dioxide 28 BUN 31 H Creatinine 1.14 Glucose 105 Calcium 9.6 - EKG Data -: EKG Interpreted by Myself (Pacing rhythm) Rate: normal
[2017-05-09] MEDS: *HR* Heparin 5,000 UNIT/ML VIAL SQ SCH ×2 (05:13→17:27)
[2017-05-09] MEDS: Insulin LISPRO 300 UNITS/3 ML VIAL SQ SCH ×4 (08:17→22:52)
[2017-05-09] MEDS: Isosorbide MONOnitrate (24 HR) 30 MG TAB.ER.24H PO SCH (08:22)
[2017-05-09] MEDS: *HR* Ticagrelor 90 MG TABLET PO SCH ×2 (08:22→21:07)
[2017-05-09] MEDS: Aspirin Enteric Coated 81 MG Tablet PO SCH (08:22)
[2017-05-09] MEDS: Furosemide 40 MG/4 ML VIAL IVP SCH ×2 (08:35→16:18)
[2017-05-09] MEDS ORDERED: Furosemide 40 MG/4 ML VIAL IVP SCH (09:00)
[2017-05-09] MEDS: Potassium Chloride Elixir 20 MEQ/15 ML UDC PO SCH (11:47)
[2017-05-09] MEDS: Acetaminophen 325 MG TABLET PO PRN ×2 (11:47→21:07)
[2017-05-09] MEDS: Ondansetron 4 MG/2 ML VIAL IVP PRN (16:18)
[2017-05-10] MEDS: *HR* Heparin 5,000 UNIT/ML VIAL SQ SCH ×2 (05:54→17:01)
[2017-05-10] MEDS: Acetaminophen 325 MG TABLET PO PRN (05:54)
[2017-05-10] MEDS: Insulin LISPRO 300 UNITS/3 ML VIAL SQ SCH ×4 (08:16→20:34)
[2017-05-10] MEDS: Isosorbide MONOnitrate (24 HR) 30 MG TAB.ER.24H PO SCH (08:17)
[2017-05-10] MEDS: Furosemide 40 MG/4 ML VIAL IVP SCH ×2 (08:17→17:01)
[2017-05-10] MEDS: *HR* Ticagrelor 90 MG TABLET PO SCH ×2 (08:17→20:34)
[2017-05-10] MEDS: Aspirin Enteric Coated 81 MG Tablet PO SCH (08:18)
[2017-05-10] MEDS: Potassium Chloride Elixir 20 MEQ/15 ML UDC PO SCH ×2 (08:18→20:33)
--- NOTE | 2017-05-10 09:32 | Internal Med Progress Note ---
Date of Encounter: 05/10/17 Time of Encounter: 09:30 - Assessment and plan (1) Acute respiratory failure with hypoxia Current Visit: Yes Status: Acute Assessment and plan: Due to acute congestive heart failure. And bilateral pleural effusion. Treat underlying illnesses. Wean FiO2 as tolerated. (2) Chest pain Current Visit: Yes Status: Chronic Assessment and plan: Troponin stable at 0.04. Continue current medication regimen with Imdur 120, carvedilol 3.125 twice daily along with nitroglycerin as needed. Qualifiers: Chest pain type: precordial pain Qualified Code(s): R07.2 - Precordial pain (3) CAD (coronary artery disease) Current Visit: Yes Status: Chronic Assessment and plan: On aspirin, Lipitor, carvedilol, lisinopril and brilinta Qualifiers: Coronary Disease-Associated Artery/Lesion type: bypass graft [place] vs. transplanted heart: [place] heart Associated angina: with stable angina Qualified Code(s): I25.708 - Atherosclerosis of coronary artery bypass graft(s) , unspecified, with other forms of angina pectoris (4) DM2 (diabetes mellitus, type 2) Current Visit: Yes Status: Chronic Assessment and plan: Well-controlled. Continue current insulin regimen and diabetic diet Qualifiers: Diabetes mellitus complication status: with circulatory complication Diabetes mellitus complication detail: with other circulatory complications Diabetes mellitus senior care insulin use: without exterminator termite use Qualified Code( s): E11.59 - Type 2 diabetes mellitus with other circulatory complications (5) DVT prophylaxis Current Visit: Yes Status: Acute Assessment and plan: With subcutaneous heparin (6) Bilateral pleural effusion Current Visit: Yes Status: Acute Assessment and plan: Consult IR for possible thoracentesis as this could be constipating to patient' s respiratory distress. (7) Abdominal pain Current Visit: Yes Status: Acute Assessment and plan: Etiology uncertain. CT scan of the abdomen and pelvis does not show any acute intra-abdominal process. We will treat symptomatically. Qualifiers: Abdominal location: generalized Qualified Code(s): R10.84 - Generalized abdominal pain - Subjective Interval history: Patient is awake and alert. Complains of abdominal pain and tenderness. Continues to have mild chest pain. Shortness of breath is improving. Denies any fever or chills. Tolerating diet well. - Constitutional Vitals: Temp Pulse Resp BP Pulse Ox 97.8 F 73 17 145/82 94 05/10/17 08:03 05/10/17 08:03 05/10/17 08:03 05/10/17 08:03 05/10/17 08:28 General appearance: Present: cooperative, mild distress, A&O X 3, answers questions appropriately - Respiratory Respiratory exam: Present: decreased breath sounds (At both bases). Absent: accessory muscle use, rales, rhonchi, wheezes - Cardiovascular Cardiovascular exam: Present: RRR, +S1, +S2. Absent: diastolic murmur, gallop, rubs, systolic murmur - GI/Abdominal GI/Abdominal exam: Present: normal bowel sounds, soft, tenderness (Generalized) , no peritoneal signs. Absent: distended, guarding, rebound - Extremities Exam Extremities exam: Present: warm, radial pulses palpable and symmetrical. Absent : calf tenderness, cyanotic, pedal edema - Neurological Exam Neurological exam: Present: alert, CN II-XII intact, oriented X3, no focal deficits. Absent: facial droop, speech deficit Internal Medicine: Result - Labs CBC & Chem 7: 05/09/17 01:50 05/09/17 01:50 - ABG Interpretation ABG results: PT/INR, D-dimer PT 14.9 Seconds (9.4-12.1) H 05/08/17 21:56 Consult Discharge Plan - Plan Referrals: Lance Cronin MD [Primary Care Provider] -
[2017-05-10] MEDS: Ondansetron 4 MG/2 ML VIAL IVP PRN (17:00)
[2017-05-11 05:47] LABS: BUN/Creatinine Ratio 20 (6-26); Blood Urea Nitrogen 25 mg/dL (8-23); Calcium 9.8 mg/dL (8.6-10.3); Carbon Dioxide 28 mEq/L (23-29); Chloride 103 mEq/L (98-107); Glucose 113 mg/dL (70-105); Osmolality,Calculated 293 (280-300); Potassium 3.7 mEq/L (3.5-5.1); Sodium 139 mEq/L (136-145); eGFR For African Americans > 60 (> 60); eGFR For Non-African Americans 57 (> 60)
[2017-05-11] MEDS: *HR* Heparin 5,000 UNIT/ML VIAL SQ SCH (06:31)
[2017-05-11] MEDS ORDERED: Furosemide 40 MG TABLET PO SCH (08:00)
[2017-05-11] MEDS: Potassium Chloride Elixir 20 MEQ/15 ML UDC PO SCH (08:09)
[2017-05-11] MEDS: Isosorbide MONOnitrate (24 HR) 30 MG TAB.ER.24H PO SCH (08:09)
[2017-05-11] MEDS: *HR* Ticagrelor 90 MG TABLET PO SCH (08:10)
[2017-05-11] MEDS: Aspirin Enteric Coated 81 MG Tablet PO SCH (08:10)
[2017-05-11] MEDS: Insulin LISPRO 300 UNITS/3 ML VIAL SQ SCH ×2 (08:11→11:38)
[2017-05-11 10:43] VITALS: BP 104/63
[2017-05-11 11:49] LABS: Appearance of Pleural Fl Bloody (Clear)
--- NOTE | 2017-05-11 11:56 | IR Procedure Note ---
Date of procedure: 05/11/17 Consent Obtained: Verbal consent, Written consent Timeout: Correct patient and procedure verified, Correct site verified, Time out performed, Skin prep completed Local anesthetic: Lidocaine 1% Indications: effusion Procedure Performed: thoracentesis Was there an speech pathology assistant present: Yes Environmental Management Specialist: Roverto Guillaume Site/Technique: right Estimated blood loss (cc): 1 Complications: None; Tolerated procedure well Post Procedure Treatment Plan: cxr Specimen: pleural fluid
[2017-05-11 12:03] LABS: Total Protein,Pleural Fluid 3.7 g/dL (No Ref Range)
--- NOTE | 2017-05-11 14:39 | Discharge Summary ---
- NOTES TO OUTPATIENT PROVIDER Notes to Outpatient Provider: Recurrent admissions for similar problems. History of noncompliance with medications. Needs to follow-up closely with PCP and tax advisor for appropriate outpatient management. Orders not resulted at time of discharge: Pending orders 05/11/17 08:47 Culture,Body Fluid [RM] Stat Date of Encounter: 05/11/17 Time of Encounter: 14:37 - Discharge Diagnosis (1) Acute respiratory failure with hypoxia Priority: Primary Status: Acute (2) Chest pain Priority: Secondary Status: Chronic Qualifiers: Chest pain type: precordial pain Qualified Code(s): R07.2 - Precordial pain (3) CAD (coronary artery disease) Priority: Secondary Status: Chronic Qualifiers: Coronary Disease-Associated Artery/Lesion type: bypass graft [place] vs. transplanted heart: [place] heart Associated angina: with stable angina Qualified Code(s): I25.708 - Atherosclerosis of coronary artery bypass graft(s) , unspecified, with other forms of angina pectoris (4) DM2 (diabetes mellitus, type 2) Priority: Secondary Status: Chronic Qualifiers: Diabetes mellitus complication status: with circulatory complication Diabetes mellitus complication detail: with other circulatory complications Diabetes mellitus senior care insulin use: without senior care use Qualified Code( s): E11.59 - Type 2 diabetes mellitus with other circulatory complications (5) Bilateral pleural effusion Priority: Secondary Status: Acute (6) Abdominal pain Priority: Secondary Status: Acute Qualifiers: Abdominal location: generalized Qualified Code(s): R10.84 - Generalized abdominal pain (7) DVT prophylaxis Priority: Secondary Status: Acute Hospital course: Mr. Pizarro is a 76 year old male patient with history of coronary artery disease status post CABG and stent, systolic CHF, diabetes mellitus who has had recurrent hospitalizations here with the past year presented to the ER with complaints of chest pain, increased leg swelling and increased oxygen requirement. He does have home oxygen. He was evaluated in the ER and hospitalized here for acute CHF exacerbation. We complaining of he was treated with intravenous Lasix with improvement in his leg swelling and respiratory symptoms. He complained of abdominal pain. A CT scan of the abdomen and pelvis was done which was negative for any acute intra-abdominal process. It did show bilateral pleural effusion with moderate effusion on the right. As such interventional radiology was consulted for thoracentesis. Patient underwent IR guided thoracentesis today on the right side. Postthoracentesis x- ray did not show any pneumothorax. Pleural fluid analysis does not show any signs of infection. Patient has lymphocyte predominant blood-tinged pleural fluid. Fluid has been sent for culture. It appears to be chronic transudative effusion likely related to heart failure and most likely blood-tinged due to patient being on dual antiplatelet therapy. Since his symptoms are now improved, he was told he was being discharged. Soon after he began to complain of left facial numbness and left upper extremity numbness. This was subjective with no objective findings. He underwent CT scan of the head which did not show any acute stroke. His symptoms have now subsided. He was offered an option to stay in hospital for another night to make sure his symptoms have completely subsided. He however wishes to go home. He is at high risk for readmission as he continues to have intermittent episodes of chest pain which can be managed as outpatient through cardiology but he ends up coming to the ER for evaluation. He also has a history of noncompliance with his medications. For now, he will be discharged on twice daily dose of Lasix 40 mg orally. He needs to follow up with cardiology as outpatient for further management of his coronary artery disease and congestive heart failure. Discharge discussed with: patient - Time Spent with Patient Total time spent providing and/or coordinating discharge services: Greater than 30 minutes (35 min) - Discharge Medications Prescriptions: Furosemide [Lasix] 40 mg PO BIDDIURETIC #60 tablet Potassium Chloride [K-Tab ER] 10 meq PO DAILY #30 tablet.er Home Medications: Nitroglycerin [Nitrostat] 0.4 mg SL Q5M PRN 10/01/16 [History] Omeprazole [PriLOSEC] 20 mg PO BIDAC #60 11/04/16 [Rx] Ascorbate Calcium [Vitamin C] 500 mg PO DAILY 11/14/16 [History] Cyanocobalamin (Vitamin B-12) [Vitamin B12] 1,000 mcg PO DAILY 11/14/16 [History ] Multivitamin [One Daily Essential] 1 tab PO DAILY 11/14/16 [History] Aspirin Enteric Coated [Aspirin EC] 81 mg PO DAILY #30 tablet. 12/24/16 [Rx] Atorvastatin [Lipitor] 40 mg PO HS #30 tablet 12/24/16 [Rx] Carvedilol [Coreg] 3.125 mg PO BIDWM 30 Days tab 12/24/16 [Rx] Isosorbide MONOnitrate (24 HR) [Imdur] 120 mg PO DAILY #30 tab 12/24/16 [Rx] Lisinopril [Zestril] 2.5 mg PO DAILY #30 tab 12/24/16 [Rx] Tamsulosin [Flomax] 0.4 mg PO DAILY #30 capsule 12/24/16 [Rx] Ticagrelor [Brilinta] 90 mg PO BID 30 Days tab 12/24/16 [Rx] metFORMIN [Glucophage] 500 mg PO BID #60 tablet 12/24/16 [Rx] Docusate [Colace] 100 mg PO BID PRN #30 capsule 03/05/17 [Rx] Furosemide [Lasix] 20 mg PO DAILY 05/09/17 [History] Furosemide [Lasix] 40 mg PO BIDDIURETIC #60 tablet 05/11/17 [Rx] Potassium Chloride [K-Tab ER] 10 meq PO DAILY #30 tablet.er 05/11/17 [Rx] Allergies/Adverse Reactions: 3 Allergy/AdvReac Type Severity Reaction Status Date / Time Oxycodone [From Percocet] Allergy Hives Verified 05/09/17 06:53 tramadol Allergy Hives Verified 05/09/17 06:53 Date of admission: 05/09/17 01:08 Primary care physician: Lance Cronin MD Consults: 05/09/17 09:52 Consult to Nurse Navigator [CONS] Routine Comment: CHF, readmit 05/10/17 15:33 Consult to Interventional Radiology [CONS] Routine Consulting Provider: Radiology Interventional Cols Reason for Consult: Bilateral pleural effusion for thoracentesis Call Completed: No Discharging clinician: Preston Vela Anticipated date of discharge: 05/11/17 - Constitutional Vitals: Temp Pulse Resp BP Pulse Ox 97.5 F L 68 16 104/63 95 05/11/17 10:37 05/11/17 10:37 05/11/17 10:37 05/11/17 10:37 05/11/17 10:37 General appearance: Present: cooperative, mild distress, A&O X 3, answers questions appropriately - Neck Neck exam general surgery: Present: supple, trachea midline. Absent: lymphadenopathy - Respiratory Respiratory exam: Present: CTAB. Absent: accessory muscle use, rales, rhonchi, wheezes - Cardiovascular Cardiovascular exam: Present: RRR, +S1, +S2. Absent: diastolic murmur, gallop, rubs, systolic murmur - GI/Abdominal GI/Abdominal exam: Present: normal bowel sounds, soft, no peritoneal signs. Absent: distended, tenderness - Extremities Exam Extremities exam: Present: warm, radial pulses palpable and symmetrical. Absent : calf tenderness, cyanotic, pedal edema - Neurological Exam Neurological exam: Present: alert, oriented X3, no focal deficits. Absent: facial droop, speech deficit - Patient Status Disposition: Home, Self-Care Condition: Good Functional capacity at discharge: independent ambulation Overall status at discharge: patient is progressing back to baseline - Discharge Instructions Instructions: Heart Failure (DC), Chest Pain (DC), Acute Respiratory Distress Syndrome (DC), Diabetes Mellitus Type 2 in Adults (DC) Follow Up With: Lance Cronin MD [Primary Care Provider] - 05/18/17 2:15 pm (Please follow up as schedule..) Additional Instructions: Follow-up with cardiology as outpatient in 1-2 weeks - Diet and Activity Activity: increase activity as tolerated Diet: low fat, low cholesterol, low salt diet
[2017-05-11] MEDS ORDERED: Potassium Chloride Elixir 20 MEQ/15 ML UDC PO SCH (17:00)
== END 2017-05-11 16:37 | disposition home or self-care (01) | DRG 291 ==
LOC: 2ANU 21:11 → EMEROO 21:11 → 2ANU 23:45 → SUATTDRO 05-09 01:08
PROVIDERS: ADMIT Internal Medicine; ATTEND Internal Medicine

== ENCOUNTER 2017-05-24 03:05 | Observation (INO) ==
--- NOTE | 2017-05-24 03:40 | Emergency Department Note ---
Disposition Clinical Impression: Elevated troponin I level Disposition: Admitted As Inpatient Condition: Undetermined Referrals: Lance Cronin MD [Partnered Physician] - Forms: ED Satisfaction Letter Chest Pain HPI - General Chief Complaint: ED Chest Pain Stated Complaint: chest pain Time Seen by Provider: 05/24/17 03:20 Source: patient Mode of arrival: EMS Limitations: no limitations Vital Signs Reviewed: Yes Nursing Notes Reviewed: Yes - History of Present Illness HPI Narrative: 76-year-old male presents to the emergency department for chest pain that brought him out of his sleep about 1:30 AM that felt like his rib cages pushing through his back. He stated the pain was heavy and it radiated for midsternal area across to his left side. He attempted to just take him a single active bed but it was not effective. So he called for EMS who came and got him gave him 1 nitroglycerin which cured his chest pain until he got here where his chest pain rebounded so of 4-5 out of 10. Patient is well-known to this facility and has a history of CHF, diabetes, CAD, [place], hypertension, hyperlipidemia, TIA, UTI, A. fib, pleural effusions. Pt complaint: chest pain Onset (ago): Just [employer]SF[employer] Time: 01:30 Duration: constant Onset: during rest Pain Location: substernal, left chest Severity: moderate Severity scale (1-10): 5 Quality: heaviness Pain Radiation: none Improves with: nitroglycerin Worsens with: nothing Context: history of DVT/PE Associated symptoms: Reports: leg swelling. Denies: nausea, vomiting, diaphoresis, dyspnea, sense of impending doom, syncope, palpitations, fever, cough Treatments prior to arrival chest pain: none - Related Data Home Medications Medication Instructions Recorded Confirmed Nitroglycerin [Nitrostat] 0.4 mg SL Q5M PRN 10/01/16 05/09/17 Ascorbate Calcium [Vitamin C] 500 mg PO DAILY 11/14/16 05/09/17 Cyanocobalamin (Vitamin B-12) 1,000 mcg PO DAILY 11/14/16 05/09/17 [Vitamin B12] Multivitamin [One Daily Essential] 1 tab PO DAILY 11/14/16 05/09/17 Furosemide [Lasix] 20 mg PO DAILY 05/09/17 05/09/17 Previous Rx's Medication Instructions Recorded Omeprazole [PriLOSEC] 20 mg PO BIDAC #60 11/04/16 Aspirin Enteric Coated [Aspirin EC] 81 mg PO DAILY #30 tablet. 12/24/16 Atorvastatin [Lipitor] 40 mg PO HS #30 tablet 12/24/16 Carvedilol [Coreg] 3.125 mg PO BIDWM 30 Days tab 12/24/16 Isosorbide MONOnitrate (24 HR) 120 mg PO DAILY #30 tab 12/24/16 [Imdur] Lisinopril [Zestril] 2.5 mg PO DAILY #30 tab 12/24/16 Tamsulosin [Flomax] 0.4 mg PO DAILY #30 capsule 12/24/16 Ticagrelor [Brilinta] 90 mg PO BID 30 Days tab 12/24/16 metFORMIN [Glucophage] 500 mg PO BID #60 tablet 12/24/16 Docusate [Colace] 100 mg PO BID PRN #30 capsule 03/05/17 Furosemide [Lasix] 40 mg PO BIDDIURETIC #60 tablet 05/11/17 Potassium Chloride [K-Tab ER] 10 meq PO DAILY #30 tablet.er 05/11/17 Allergies Allergy/AdvReac Type Severity Reaction Status Date / Time Oxycodone [From Percocet] Allergy Hives Verified 05/09/17 06:53 tramadol Allergy Hives Verified 05/09/17 06:53 All systems ED: reviewed and negative except as stated. Review of Systems: As Per HPI Constitutional: Denies: fever, chills, weakness Cardiovascular: Reports: chest pain, palpitations, dyspnea on exertion, edema. Denies: syncope, paroxysmal nocturnal dyspnea Respiratory: Denies: cough, dyspnea, wheezes, hemoptysis, stridor Gastrointestinal: Denies: abdominal pain, nausea, vomiting, diarrhea, constipation Neurological: Denies: headache, weakness, numbness, paresthesias Chest Pain PMH - Past Medical History Medical history: Reports: asthma, atrial fibrillation, CHF, coronary artery disease, CVA, diabetes, hypertension, myocardial infarction, thyroid disease Surgical history: Reports: angioplasty/stent, cholecystectomy, coronary bypass ( CABG), pacemaker/AICD Psychiatric history: Reports: no psych history - Social History Smoking Status: Former smoker Alcohol use: Reports: none Drug use: Reports: none Physical Exam - General Limitations: no limitations General appearance: alert - Head Head exam: atraumatic, normocephalic, normal inspection - Eye Eye exam: Present: normal appearance, PERRL, EOMI - ENT ENT exam: normal exam, normal oropharynx, mucous membranes moist - Neck Neck exam: Present: normal inspection, full ROM, trachea midline - Chest Chest inspection: Present: normal inspection, symmetric chest wall rise - Respiratory Respiratory exam: Present: normal lung sounds bilaterally - Cardiovascular Cardiovascular exam: Present: regular rate, normal rhythm, normal heart sounds - Abdominal Exam Abdominal exam: Present: soft, Non-Tender. Absent: tenderness, distention, guarding, rebound, rigidity - Neurological Exam Neurological exam: Present: alert, oriented X3 - Psychiatric Psychiatric exam: Present: normal affect, normal mood - Skin Skin exam: Present: warm, dry, intact, normal color Course Course Narrative: 76-year-old male presents to the emergency department for chest pain that brought him out of his sleep about 1:30 AM that felt like his rib cages pushing through his back. He stated the pain was heavy and it radiated for midsternal area across to his left side. He attempted to just take him a single active bed but it was not effective. So he called for EMS who came and got him gave him 1 nitroglycerin which cured his chest pain until he got here where his chest pain rebounded so of 4-5 out of 10. Patient is well-known to this facility and has a history of CHF, diabetes, CAD, [place], hypertension, hyperlipidemia, TIA, UTI, A. fib, pleural effusions. Mr. Walden is a 76-year-old well-hydrated, well-nourished male who appears in no acute distress. He is extremely hard of. Has hearing aids however he is alert and oriented 3 and follows conversation well. He is smiling as we approach respirations are easy and even and he is in no acute distress. Vital states that his chest pain is midsternal and a right-sided 4. He is hypertensive upon arrival., Rest of exam is benign. We will start chest pain workup as he has a very large known history of chest pain. - Reevaluation(s) Reevaluation #1: Troponin comes back at 0.04, patient continues to complain of chest pain. Exam is non-changed from earlier this evening. We will give Nitropaste to help control pain as patient's blood pressure is 160s over 90s. We will also contact the hospitalist for admission as the troponin 0.04 however he does rebound to normal after episodes of chest pain when they are monitored. He will need further monitoring at this time. Time: 04:15 Reevaluation #2: Spoke with Dr. Lu in the hospitalist he agrees to take patient. Patient has not had any change in assessment. Continues to talk pleasantly with staff. We will get him transferred for admission as soon as possible. Time: 04:45 Vital Signs Temperature 97.8 F 05/24/17 03:09 Pulse Rate 75 05/24/17 03:09 Respiratory Rate 16 05/24/17 03:09 Blood Pressure 164/104 05/24/17 03:09 O2 Sat by Pulse Oximetry 96 05/24/17 03:09 Temperature 97.8 F 05/24/17 03:09 Pulse Rate 66 05/24/17 05:10 Respiratory Rate 18 05/24/17 05:10 Blood Pressure 162/102 05/24/17 05:10 O2 Sat by Pulse Oximetry 99 05/24/17 05:21 Oxygen Delivery Oxygen Delivery Room Air Chest Pain - Lab Data Result diagrams: 05/24/17 04:08 05/24/17 03:25 Lab Results 05/24/17 05/24/17 05/24/17 Range/Units 03:25 03:25 03:25 WBC (4.3-11.1) K/mcL RBC (4.19-5.50) M/mcL Hgb (12.9-16.9) g/dL Hct (37.5-50.1) % MCV (83.0-100.0) fL MCH (28.0-33.3) pg MCHC (31.6-35.5) g/dL RDW (11.5-14.5) % Plt Count (140-400) K/mcL MPV (9.4-12.4) fL Immature Gran % (0-4) % Seg Neutrophils % % Lymphocytes % % Monocytes % % Eosinophils % % Basophils % % Neutrophils # (1.6-8.9) K/mcL Lymphocytes # (0.6-4.6) K/mcL Monocytes # (0.0-1.3) K/mcL Eosinophils # (0.0-0.6) K/mcL Basophils # (0.0-0.2) K/mcL PT 11.5 (9.4-12.1) Seconds INR 1.1 APTT 27.9 (26.0-36.0) Seconds Sodium 138 (136-145) mEq/L Potassium 4.4 (3.5-5.1) mEq/L Chloride 105 (98-107) mEq/L Carbon Dioxide 24 (23-29) mEq/L BUN 27 H (8-23) mg/dL Creatinine 1.03 (0.70-1.30) mg/dL Est GFR ( Amer) > 60 (> 60) Est GFR (Non-Af Amer) > 60 (> 60) BUN/Creatinine Ratio 26 (6-26) Glucose 136 H (70-105) mg/dL Calculated Osmolality 293 (280-300) Calcium 9.9 (8.6-10.3) mg/dL Troponin I 0.04 H* (< 0.04) ng/mL B-Natriuretic Peptide 862 H (Less than 100) pg/mL Urine Color (Yellow) Urine Clarity (Clear) Urine pH (5.0-8.0) pH Units Ur Specific [place] (1.010-1.025) Urine Protein (Neg-Trace) mg/dL Urine Glucose (UA) (Normal) mg/dL Urine Ketones (Negative) mg/dL Urine Blood (Negative) Urine Nitrite (Negative) Urine Bilirubin (Negative) Urine Urobilinogen (Normal) mg/dL Ur Leukocyte Esterase (Negative) Urine Microscopic RBC (0-3) per hpf Urine Microscopic WBC (0-3) per hpf Ur Squamous Epith Cells (None-Few) per lpf Urine Bacteria (None-Few) per hpf Hyaline Casts (None-Few) per lpf Ur Culture Indicated? (NO) Specimen Rejected 05/24/17 05/24/17 05/24/17 Range/Units 03:52 04:08 04:55 WBC 8.0 (4.3-11.1) K/mcL RBC 4.89 (4.19-5.50) M/mcL Hgb 13.7 (12.9-16.9) g/dL Hct 41.8 (37.5-50.1) % MCV 85.5 (83.0-100.0) fL MCH 28.0 (28.0-33.3) pg MCHC 32.8 (31.6-35.5) g/dL RDW 17.1 H (11.5-14.5) % Plt Count 166 (140-400) K/mcL MPV 11.4 (9.4-12.4) fL Immature Gran % 0.2 (0-4) % Seg Neutrophils % 71.8 % Lymphocytes % 16.2 % Monocytes % 8.0 % Eosinophils % 3.1 % Basophils % 0.7 % Neutrophils # 5.8 (1.6-8.9) K/mcL Lymphocytes # 1.3 (0.6-4.6) K/mcL Monocytes # 0.6 (0.0-1.3) K/mcL Eosinophils # 0.3 (0.0-0.6) K/mcL Basophils # 0.1 (0.0-0.2) K/mcL PT (9.4-12.1) Seconds INR APTT (26.0-36.0) Seconds Sodium (136-145) mEq/L Potassium (3.5-5.1) mEq/L Chloride (98-107) mEq/L Carbon Dioxide (23-29) mEq/L BUN (8-23) mg/dL Creatinine (0.70-1.30) mg/dL Est GFR ( Amer) (> 60) Est GFR (Non-Af Amer) (> 60) BUN/Creatinine Ratio (6-26) Glucose (70-105) mg/dL Calculated Osmolality (280-300) Calcium (8.6-10.3) mg/dL Troponin I (< 0.04) ng/mL B-Natriuretic Peptide (Less than 100) pg/mL Urine Color Yellow (Yellow) Urine Clarity Cloudy A (Clear) Urine pH 6.5 (5.0-8.0) pH Units Ur Specific [place] > 1.030 H (1.010-1.025) Urine Protein 100 H (Neg-Trace) mg/dL Urine Glucose (UA) Normal (Normal) mg/dL Urine Ketones Negative (Negative) mg/dL Urine Blood Negative (Negative) Urine Nitrite Negative (Negative) Urine Bilirubin Negative (Negative) Urine Urobilinogen Normal (Normal) mg/dL Ur Leukocyte Esterase Negative (Negative) Urine Microscopic RBC 5-15 H (0-3) per hpf Urine Microscopic WBC 0-3 (0-3) per hpf Ur Squamous Epith Cells Many H (None-Few) per lpf Urine Bacteria None Seen (None-Few) per hpf Hyaline Casts None Seen (None-Few) per lpf Ur Culture Indicated? NO (NO) Specimen Rejected Clotted Attestation Statement - Attestation Attestation: Manjeet Landaverde DO have provided [id number] time during the care of this patient. Detailed review the presentation, symptoms, medical history were discussed and reviewed with the mid-level provider IManjeet DO, examined this patient [id number] and my medical decision-making was reviewed with ( ), Resident Physician. I agree with the documented findings, disposition and treatment plan as described except to the extent set forth below. Please see my progress notes for details. 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 Medical intervention labs and imaging studies were reviewed in detail. See full documentation of physical exam and course of care in the mid-level provider's note. I agree with the determined course of care, medical intervention and disposition put forth by the mid-level provider. See below documentation for changes or alterations in documentation. 76-year-old male presents to the emergency room for evaluation chest pain. He is very well-known to this facility for cardiac related illness. Patient has had multiple evaluations and admissions secondary to cardiac disease. Patient has coronary disease with CABG and pacemaker. EKG is stable in presentation. Patient did have an elevated troponin. Otherwise the patient's physical exam is unremarkable. His lungs are clear. Abdomen is soft. He has no recent illnesses, or injury. His only complaint is chest pain. Patient has had almost complete resolution of the symptoms can emergency room after nitroglycerin. Patient will be admitted for further evaluation and management. No other acute concerns or symptoms this time. Denies any other complaints or issues. See detailed documentation of the physical exam, medical intervention, medical decision-making and disposition and the mid-level provider 's note. 0500 Patient has negative workup otherwise except for the elevated troponin. Symptoms are better controlled here. Patient will be admitted for observation.
[2017-05-24 04:00] LABS: INR 1.1; Prothrombin Time 11.5 Seconds (9.4-12.1)
[2017-05-24 04:02] LABS: Troponin I 0.04 ng/mL (< 0.04)
[2017-05-24 04:03] LABS: Activated Partial Thrombo Time 27.9 Seconds (26.0-36.0)
[2017-05-24 04:04] LABS: BUN/Creatinine Ratio 26 (6-26); Blood Urea Nitrogen 27 mg/dL (8-23); Calcium 9.9 mg/dL (8.6-10.3); Carbon Dioxide 24 mEq/L (23-29); Chloride 105 mEq/L (98-107); Glucose 136 mg/dL (70-105); Osmolality,Calculated 293 (280-300); Potassium 4.4 mEq/L (3.5-5.1); Sodium 138 mEq/L (136-145); eGFR For African Americans > 60 (> 60); eGFR For Non-African Americans > 60 (> 60)
[2017-05-24] MEDS ORDERED: Aspirin 81 MG TAB.CHEW PO ONE (04:07)
[2017-05-24] MEDS ORDERED: Nitroglycerin 1 INCH/GM PACKET TP ONE (04:18)
[2017-05-24 04:54] LABS: Basophils # 0.1 K/mcL (0.0-0.2); Basophils % 0.7 %; Eosinophils # 0.3 K/mcL (0.0-0.6); Eosinophils % 3.1 %; Hematocrit 41.8 % (37.5-50.1); Hemoglobin 13.7 g/dL (12.9-16.9); Immature Granulocytes % 0.2 % (0-4); Lymphocytes # 1.3 K/mcL (0.6-4.6); Lymphocytes % 16.2 %; Mean Corpuscular HGB Conc 32.8 g/dL (31.6-35.5); Mean Corpuscular Volume 85.5 fL (83.0-100.0); Mean Platelet Volume 11.4 fL (9.4-12.4); Monocytes # 0.6 K/mcL (0.0-1.3); Neutrophils # 5.8 K/mcL (1.6-8.9); Platelet Count 166 K/mcL (140-400); Red Blood Count 4.89 M/mcL (4.19-5.50); Red Cell Distribution Width 17.1 % (11.5-14.5); Segmented Neutrophils % 71.8 %
[2017-05-24 05:17] LABS: Bilirubin,Urine Negative (Negative); Blood,Urine Negative (Negative); Clarity,Urine Cloudy (Clear); Color,Urine Yellow (Yellow); Glucose,Urine (UA) Normal (Normal); Ketones,Urine Negative (Negative); Leukocyte Esterase,Urine Negative (Negative); Nitrite,Urine Negative (Negative); PH,Urine 6.5 pH Units (5.0-8.0); Protein,Urine 100 mg/dL (Neg-Trace); Specific Gravity,Urine > 1.030 (1.010-1.025); Urobilinogen,Urine Normal (Normal)
[2017-05-24 05:28] LABS: Bacteria,Urine None Seen per hpf (None-Few); Hyaline Casts,Urine None Seen per lpf (None-Few); Squamous Epithelial Cell,Urine Many per lpf (None-Few); WBC,Urine 0-3 per hpf (0-3)
[2017-05-24] MEDS ORDERED: *HR* Promethazine 25 MG/ML VIAL IVP PRN (08:39)
[2017-05-24] MEDS ORDERED: Naloxone 0.4 MG/ML INJ IVP PRN (08:39)
[2017-05-24] MEDS ORDERED: Acetaminophen 325 MG TABLET PO PRN (08:39)
[2017-05-24] MEDS ORDERED: Ondansetron 4 MG/2 ML VIAL IVP PRN (08:39)
--- NOTE | 2017-05-24 10:17 | Internal Med History&Physical ---
Date of Encounter: 05/24/17 Time of Encounter: 08:20 Assessment and Plan (1) Chest pain Current visit: No Status: Acute Will admit the pt into Tele for observation Will place pt on night monitor check serial troponin His initial troponin slightly elevated at 0.04 Will check FLP in AM Reviewed his 2 D Echo from 03/06 showed LVEF @ 40% Reviewed Stress test from 04/07 showed no acute ishcemmic changes Pt was evaluated by Card last month however he is keep having CP despite taking his Imdur at 120mg He may need LHC for further eval will consult card again cont ASA + Brillinta + Coreg + ACEI + Statin Qualifiers: Chest pain type: precordial pain Qualified Code(s): R07.2 - Precordial pain (2) CAD (coronary artery disease) Current visit: No Status: Chronic resumed all home meds Qualifiers: Coronary Disease-Associated Artery/Lesion type: bypass graft [place] vs. transplanted heart: [place] heart Associated angina: with stable angina Qualified Code(s): I25.708 - Atherosclerosis of coronary artery bypass graft(s) , unspecified, with other forms of angina pectoris (3) Systolic heart failure Current visit: No Status: Acute Not in exacerbation Resumed all home meds including PO Lasix Qualifiers: Heart failure chronicity: acute on chronic Qualified Code(s): I50.23 - Acute on chronic systolic (congestive) heart failure (4) HTN (hypertension) Current visit: No Status: Chronic fairly controlled with current meds Resumed all home meds also will give Hydralazine IV PRN Qualifiers: Hypertension type: essential hypertension Qualified Code(s): I10 - Essential (primary) hypertension (5) HLD (hyperlipidemia) Current visit: No Status: Chronic on statin Qualifiers: Hyperlipidemia type: unspecified Qualified Code(s): E78.5 - Hyperlipidemia , unspecified (6) GERD (gastroesophageal reflux disease) Current visit: No Status: Chronic on PPI Qualifiers: Esophagitis presence: without esophagitis Qualified Code(s): K21.9 - Gastro -esophageal reflux disease without esophagitis Internal Medicine - H&P: HPI Chief complaint: Chest pain Admitted From: Emergency Dept Plans for Post Hospital Care: Home History of present illness: Mr. Pizarro is a 76 year old male well known to the cardiology service with a PMHx of CAD s/p CABG and PCI, CVA, A fib, Systolic CHF with LVEF 40 %, s/p Pacemaker/AICD, DM, HTN, asthma, thyroid disease who presented to ER with c/o intermittent chest pain since last night. Pt stated he felt chest tightness and heaviness around left chest and substernal region, which was radiating down to his Left Arm. His pain was 9/10 in severity earlier now improved. He denied any SOB . He did mention nauseated during CP episode time. He is known to our service here, got admitted here several times in recent past with acute CP, CHF exacerbation and non compliance with medication. He was seen by Card on mentioned as muscloskeletal pain. He had Stress test done in 04/07. Past Med Surg Social Fam HX - Past Medical History Medical history: asthma, atrial fibrillation, CHF, coronary artery disease, CVA , diabetes, hypertension, myocardial infarction, thyroid disease Psychiatric history: no psych history - Past Surgical History Surgical History: angioplasty/stent, cholecystectomy, coronary bypass (CABG), pacemaker/AICD - Social History Smoking Status: Former smoker Smokeless Tobacco Status: No Alcohol use: none Drug use: none - Family History Grandfather Family Member Ethnicity: Non- Living Status: Hx Family Cardiac Disorders: Yes ([place]) Mother Family Member Ethnicity: Non- Living Status: Hx Family Neurologic Disorders: Yes (CVA) Father Adopted: No Family Member Ethnicity: Non- Living Status: Hx Family Cardiac Disorders: No Hx Family Respiratory Disorders: No Hx Family Cancer: Yes (Unknown what type) Hx Family GI Disorders: No Hx Family Endocrine Disorder: No Hx Family Neuromuscular Disorders: No Hx Family Neurologic Disorders: No Hx Family HEENT Disorders: No Hx Family Autoimmune Disorders: No Internal Medicine - H&P: Meds Nitroglycerin [Nitrostat] 0.4 mg SL Q5M PRN 10/01/16 [History] Omeprazole [PriLOSEC] 20 mg PO BIDAC #60 11/04/16 [Rx] Ascorbate Calcium [Vitamin C] 500 mg PO DAILY 11/14/16 [History] Cyanocobalamin (Vitamin B-12) [Vitamin B12] 1,000 mcg PO DAILY 11/14/16 [History ] Multivitamin [One Daily Essential] 1 tab PO DAILY 11/14/16 [History] Aspirin Enteric Coated [Aspirin EC] 81 mg PO DAILY #30 tablet.dr 12/24/16 [Rx] Atorvastatin [Lipitor] 40 mg PO HS #30 tablet 12/24/16 [Rx] Carvedilol [Coreg] 3.125 mg PO BIDWM 30 Days tab 12/24/16 [Rx] Isosorbide MONOnitrate (24 HR) [Imdur] 120 mg PO DAILY #30 tab 12/24/16 [Rx] Lisinopril [Zestril] 2.5 mg PO DAILY #30 tab 12/24/16 [Rx] Tamsulosin [Flomax] 0.4 mg PO DAILY #30 capsule 12/24/16 [Rx] Ticagrelor [Brilinta] 90 mg PO BID 30 Days tab 12/24/16 [Rx] metFORMIN [Glucophage] 500 mg PO BID #60 tablet 12/24/16 [Rx] Docusate [Colace] 100 mg PO BID PRN #30 capsule 03/05/17 [Rx] Furosemide [Lasix] 40 mg PO BIDDIURETIC #60 tablet 05/11/17 [Rx] Potassium Chloride [K-Tab ER] 10 meq PO DAILY #30 tablet.er 05/11/17 [Rx] 3 Allergy/AdvReac Type Severity Reaction Status Date / Time Oxycodone [From Percocet] Allergy Hives Verified 05/09/17 06:53 tramadol Allergy Hives Verified 05/09/17 06:53 All Systems PM: A 10-system review of systems was performed and is negative for pertinent findings except as documented above in the HPI. Review of systems: All the systems are reviewed everything is benign except the systems and symptoms I mentioned in the history of present illness - Constitutional Vitals: Temp Pulse Resp BP Pulse Ox 97.8 F 79 18 163/99 98 05/24/17 03:09 05/24/17 06:31 05/24/17 07:26 05/24/17 07:26 05/24/17 06:31 General appearance: Present: cooperative, A&O X 3, no acute distress, answers questions appropriately - Head Head exam: Present: atraumatic, normal inspection - Neck Neck exam general surgery: Present: supple - Respiratory Respiratory exam: Present: decreased breath sounds. Absent: rales, respiratory distress, rhonchi, wheezes - Cardiovascular Cardiovascular exam: Present: RRR, +S1, +S2. Absent: systolic murmur, tachycardia - GI/Abdominal GI/Abdominal exam: Present: normal bowel sounds, soft. Absent: rebound, rigid, tenderness - Extremities Exam Extremities exam: Absent: calf tenderness, pedal edema, tenderness - Back Exam Back exam: Absent: CVA tenderness (L), CVA tenderness (R) - Neurological Exam Neurological exam: Present: alert, oriented X3 - Psychiatric Psychiatric exam: Present: normal affect, normal mood - Skin Skin exam: Absent: rash Internal Med - H&P Results - Labs CBC & Chem 7: 05/24/17 04:08 05/24/17 03:25
[2017-05-24] MEDS ORDERED: Nitroglycerin 0.4 MG TAB.SUBL SL PRN (10:19)
[2017-05-24] MEDS ORDERED: *HR* Dextrose 50 % in Water (Syg) 50 ML SYRINGE IVP PRN (10:28)
[2017-05-24] MEDS ORDERED: Dextrose Gel 15 GM/37.5 ML TUBE PO PRN ×2 (10:28)
[2017-05-24] MEDS ORDERED: D5% in Water 1,000 ML IVC PRN (10:28)
[2017-05-24] MEDS: *HR* Ticagrelor 90 MG TABLET PO SCH ×2 (12:14→22:18)
[2017-05-24] MEDS: Insulin LISPRO 300 UNITS/3 ML VIAL SQ SCH ×3 (12:15→22:19)
--- NOTE | 2017-05-24 14:32 | Electrocardiograph Report ---
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
[2017-05-24] MEDS: *HR* HYDROcodone/Acet 5/325 mg TABLET PO PRN (14:59)
[2017-05-24] MEDS ORDERED: *HR* LORazepam 0.5 MG TABLET PO PRN (16:30)
--- NOTE | 2017-05-24 16:56 | Cardiology Consult Note ---
<Sharri Randle - Last Filed: 05/24/17 16:52> Date of Encounter: 05/24/17 Time of Encounter: 15:00 Assessment and Plan (1) Acute systolic congestive heart failure Current Visit: No Status: Acute Per cardiology: -Acute on chronic systolic CHF. -BNP 800s. -Reports weight gain at home. -Conversational dysnea noted. -Will start lasix 40mg IV BID. -Strict i/os, daily weights, fluid restriction. -CHF education reinforced with patient. (2) Elevated troponin Current Visit: No Status: Acute Per cardiology: -Troponins 0.04 x3. Troponins chronically elevated. -Has chronic reproduceable chest pain. Denies exertional symptoms. -Stress 03/2017 negative for ischemia, prior infarct noted. -Last TTE 02/2017 with LVEF 40%, unchanged. -No acute ECG changes. -Do not suspect NSTEMI. No cardiac rehab warranted. (3) Ischemic cardiomyopathy Current Visit: No Status: Chronic Per cardiology: -KNown ICM. -ON beta blokcer and clara inhibitor. -Last LVEF 40%. -will continue to monitor. (4) Paroxysmal a-fib Current Visit: No Status: Chronic Per cardiology: -KNown history of PAF. -ON beta blcoker. -Not on anticoagulation due ot histoyr of hematuria while on anticoagulation. -[id number] score 7 (age, HTN, CHF, vascular disease, hx CVA). Pateint is aware of increased risk of CVA and refuses anticoagulation. -Will continue to monitor. -Of note, patient's code status is DNR-CC. (5) CAD (coronary artery disease) Current Visit: No Status: Chronic Per cardiology: -Known CAD. With [facility] 11/02/16 with 50% left main, 90% proximal LAD, 100% mid LAD , 99% instent thrombosis of ostial RCA 4 JATINDER were placed, ARROYO to LAD is patent , SVG to OM is patent. -ON asa, statin, beta blcoker, imdur, and brilinta. -Recommend dual anti-platelet therapy uninterrupted for at least one year. Qualifiers: Coronary Disease-Associated Artery/Lesion type: bypass graft [place] vs. transplanted heart: [place] heart Associated angina: with unspecified angina Qualified Code(s): I25.709 - Atherosclerosis of coronary artery bypass graft(s) , unspecified, with unspecified angina pectoris Discussion w patient/family: The assessment and plan as outlined above was discussed with the patient who expressed understanding and agreement. All questions were answered. Thank you for involving us in the care of your patient. Please call with any questions. Discussed and reviewed wit . History of Present Illness Consult date: 05/24/17 Requesting physician: Jennifer Bhandari Consult reason: chf, elevated troponin Chief complaint: shortness of breath History of present illness: Mr. Pizarro is a 76 year old male with a relevant past medical history of ischemic cardiomyopathy, CAD s/p CABG and PCI, pacemaker, CHF, HTN, DM, SD, CVA , paroxymsmal atrial fibrillation not on anticoagulation due to hematuria, non- compliance. Patient presented to [facility] with complaints of increased shortness of breath. Reports constant chest pain. Denies exertional chest pain. REPorts weight gain at home. Past Med Surg Social Fam HX - Past Medical History Attestation: Yes The following information was validated with the patient. Source: patient, old records reviewed Medical history: asthma, atrial fibrillation, CHF, coronary artery disease, CVA , diabetes, hypertension, myocardial infarction, thyroid disease Psychiatric history: no psych history - Past Surgical History Surgical History: angioplasty/stent, cholecystectomy, coronary bypass (CABG), pacemaker/AICD - Social History Smoking Status: Former smoker Smokeless Tobacco Status: No Alcohol use: none Drug use: none - Family History Grandfather Family Member Ethnicity: Non- Living Status: Hx Family Cardiac Disorders: Yes (SD) Mother Family Member Ethnicity: Non- Living Status: Hx Family Neurologic Disorders: Yes (CVA) Father Adopted: No Family Member Ethnicity: Non- Living Status: Hx Family Cardiac Disorders: No Hx Family Respiratory Disorders: No Hx Family Cancer: Yes (Unknown what type) Hx Family GI Disorders: No Hx Family Endocrine Disorder: No Hx Family Neuromuscular Disorders: No Hx Family Neurologic Disorders: No Hx Family HEENT Disorders: No Hx Family Autoimmune Disorders: No Medications and Allergies Nitroglycerin [Nitrostat] 0.4 mg SL Q5M PRN 10/01/16 [History] Omeprazole [PriLOSEC] 20 mg PO BIDAC #60 11/04/16 [Rx] Ascorbate Calcium [Vitamin C] 500 mg PO DAILY 11/14/16 [History] Cyanocobalamin (Vitamin B-12) [Vitamin B12] 1,000 mcg PO DAILY 11/14/16 [History ] Multivitamin [One Daily Essential] 1 tab PO DAILY 11/14/16 [History] Aspirin Enteric Coated [Aspirin EC] 81 mg PO DAILY #30 tablet. 12/24/16 [Rx] Atorvastatin [Lipitor] 40 mg PO HS #30 tablet 12/24/16 [Rx] Carvedilol [Coreg] 3.125 mg PO BIDWM 30 Days tab 12/24/16 [Rx] Isosorbide MONOnitrate (24 HR) [Imdur] 120 mg PO DAILY #30 tab 12/24/16 [Rx] Lisinopril [Zestril] 2.5 mg PO DAILY #30 tab 12/24/16 [Rx] Tamsulosin [Flomax] 0.4 mg PO DAILY #30 capsule 12/24/16 [Rx] Ticagrelor [Brilinta] 90 mg PO BID 30 Days tab 12/24/16 [Rx] metFORMIN [Glucophage] 500 mg PO BID #60 tablet 12/24/16 [Rx] Docusate [Colace] 100 mg PO BID PRN #30 capsule 03/05/17 [Rx] Furosemide [Lasix] 40 mg PO BIDDIURETIC #60 tablet 05/11/17 [Rx] Potassium Chloride [K-Tab ER] 10 meq PO DAILY #30 tablet.er 05/11/17 [Rx] 3 Allergy/AdvReac Type Severity Reaction Status Date / Time Oxycodone [From Percocet] Allergy Hives Verified 05/09/17 06:53 tramadol Allergy Hives Verified 05/09/17 06:53 All Systems Review: The remainder of the systems were reviewed and are negative - Constitutional Constitutional: weight gain - Cardiovascular Cardiovascular: as per HPI, chest pain at rest, dyspnea at rest, dyspnea on exertion Physical Examination Vital Signs, Last 4 Hours Temp Pulse Resp BP Pulse Ox 05/24/17 16:24 92 24 166/94 97 05/24/17 16:12 97 20 97 05/24/17 14:40 97.8 F 81 22 179/111 96 General: Conversant, Other (Conversation dyspnea noted. ) HEENT: Atraumatic, Normocephaly, Mucus Membranes Moist Neck: No JVD, Normal carotid pulses Cardiac: Reg Rate and Rhythm, Normal S1 and S2, No Murmur Lungs: Normal Breath Sounds, No Wheeze, Rales, Rhonchi Neuro: Alert and responsive, No focal deficits noted Abdomen: Soft, Non-Tender Skin: No rashes noted on visualized skin Musculoskeletal: No Chest Wall Tenderness Extremities: No Clubbing, No Cyanosis, No Edema, Normal Pulses Results 05/24/17 04:08 05/24/17 03:25 Lab Results Impressions Chest X-Ray 05/24/17 03:21 IMPRESSION: Persistent bibasilar atelectasis or pneumonia. D/ / Jasper Devine MD / Jasper Devine MD Interpreting Provider: Jasper Devine MD Active Medications Acetaminophen (Tylenol) 650 mg PO Q6HR PRN PRN Reason: Mild Pain/Fever Stop: 11/23/17 08:40 Hydrocodone Bitart/Acetaminophen ([place] 5-325 Mg) 1 tab PO Q6HR PRN PRN Reason: Moderate Pain Stop: 11/23/17 08:40 Last Admin: 05/24/17 14:59 Dose: 1 tab Ascorbic Acid (Vitamin C) 500 mg PO DAILY MACI Stop: 11/24/17 09:01 Aspirin (Aspirin Ec) 81 mg PO DAILY MACI Stop: 11/24/17 09:01 Atorvastatin Calcium (Lipitor) 40 mg PO HS MACI Stop: 11/23/17 21:01 Carvedilol (Coreg) 3.125 mg PO BIDWM MACI PRN Reason: Protocol Stop: 11/23/17 17:01 Last Admin: 05/24/17 16:47 Dose: 3.125 mg Cyanocobalamin (Vitamin B12) 1,000 mcg PO DAILY MACI Stop: 11/24/17 09:01 Dextrose/Water (Dextrose 50% (Syg)) 25 ml IVP AD PRN PRN Reason: Hypoglycemia Stop: 11/23/17 10:29 Docusate Sodium (Colace) 100 mg PO BID PRN; Protocol PRN Reason: Constipation Stop: 11/23/17 10:20 Furosemide (Lasix) 40 mg IVP BID MACI Stop: 11/23/17 21:01 Glucagon (Glucagen) 1 mg IM ONCE PRN PRN Reason: Hypoglycemia Stop: 11/23/17 10:29 Glucose (Gluctose) 15 gm PO ONCE PRN PRN Reason: Hypoglycemia Stop: 11/23/17 10:29 Glucose (Gluctose) 30 gm PO ONCE PRN PRN Reason: Hypoglycemia Stop: 11/23/17 10:29 Hydralazine HCl (Hydralazine) 10 mg IVP Q6HR PRN PRN Reason: Hypertension Stop: 11/23/17 10:30 Last Admin: 05/24/17 14:59 Dose: 10 mg Dextrose (Dextrose 5%) 1,000 mls @ 100 mls/hr IVC .Q10H PRN PRN Reason: HYPOGLYCEMIA Stop: 11/23/17 10:29 Insulin Human Lispro (Humalog) 0 units SQ HS MACI PRN Reason: Protocol Stop: 11/23/17 21:01 Insulin Human Lispro (Humalog) 0 units SQ TIDAC MACI PRN Reason: Protocol Stop: 11/23/17 11:31 Last Admin: 05/24/17 16:23 Dose: Not Given Isosorbide Mononitrate (Imdur) 120 mg PO DAILY [facility] Stop: 11/24/17 09:01 Lisinopril (Zestril) 2.5 mg PO DAILY [facility] PRN Reason: Protocol Stop: 11/24/17 09:01 Lorazepam (Ativan) 0.5 mg PO TID PRN PRN Reason: Anxiety Stop: 11/23/17 16:31 Last Admin: 05/24/17 16:35 Dose: 0.5 mg Multivitamins/Calcium (Thera M Plus) 1 tab PO DAILY [facility] Stop: 11/24/17 09:01 Naloxone HCl (Narcan) 0.4 mg IVP Q2MIN PRN PRN Reason: SEE COMMENTS Stop: 11/23/17 08:40 Nitroglycerin (Nitroglycerin) 0.4 mg SL Q5M PRN PRN Reason: Chest Pain Stop: 11/23/17 10:20 Last Admin: 05/24/17 12:15 Dose: 0.4 mg Omeprazole (Prilosec) 20 mg PO BIDAC MACI PRN Reason: Protocol Stop: 11/23/17 16:31 Last Admin: 05/24/17 16:21 Dose: 20 mg Ondansetron HCl (Zofran) 4 mg IVP Q6HR PRN PRN Reason: Nausea And Vomiting Stop: 11/23/17 08:40 Potassium Chloride (Potassium Chloride) 10 meq PO DAILY [facility] Stop: 11/24/17 09:01 Promethazine HCl (Phenergan) 12.5 mg IVP Q6HR PRN PRN Reason: Nausea And Vomiting Stop: 11/23/17 08:40 Last Admin: 05/24/17 14:59 Dose: 12.5 mg Tamsulosin HCl (Flomax) 0.4 mg PO DAILY MACI PRN Reason: Protocol Stop: 11/24/17 09:01 Ticagrelor (Brilinta) 90 mg PO BID [facility] Stop: 11/23/17 10:31 Last Admin: 05/24/17 12:14 Dose: 90 mg Laboratory Tests 05/24/17 05/24/17 05/24/17 03:25 03:25 04:08 Hgb 13.7 Creatinine 1.03 Troponin I 0.04 H* B-Natriuretic Peptide 862 H 05/24/17 05/24/17 10:19 16:18 Hgb Creatinine Troponin I 0.04 H* 0.04 H* B-Natriuretic Peptide - Imaging and Cardiology Chest Xray: report reviewed Echo: report reviewed Cardiac cath: report reviewed - EKG Interpretation EKG results cardiology: personally reviewed (ECG with paced rhythm.) Consult Discharge Plan - Plan Referrals: Lance Cronin MD [Primary Care Provider] - <Odalis Garcia - Last Filed: 05/24/17 17:23> Date of Encounter: 05/24/17 - Attending Attestation I examined this patient and my medical decision-making was reviewed with the CHANGE MANAGEMENT CONSULTANT. I agree with the documented findings, disposition and treatment plan as described. Mr. Pizarro presents with acute systolic heart failure exacerbation. Agree with IV diuresis. Troponins flat, adynamic and chronically elevated do not appear to represent ACS in this setting. No new ischemic ECG changes. Chronic reproducible chest pain. Continue DAPT (last PCI 10/2016), statin, BB. Known history of PAF on beta fuentes. Per documentation from office notes, patient not on anticoagulation due to history of hematuria. Patient also declines full anticoagulation. He understands the risk of CVA in setting of AFIB. Assessment and Plan Discussion w patient/family: The assessment and plan as outlined above was discussed with the patient and/or family members who expressed understanding and agreement. All questions were answered. Thank you for involving us in the care of your patient. Please call with any questions. History of Present Illness History of present illness: Mr. Pizarro is a 76 year old male All Systems Review: The remainder of the systems were reviewed and are negative Physical Examination Vital Signs, Last 4 Hours Temp Pulse Resp BP Pulse Ox 05/24/17 16:24 92 24 166/94 97 05/24/17 16:12 97 20 97 05/24/17 14:40 97.8 F 81 22 179/111 96 Results 05/24/17 04:08 05/24/17 03:25 Lab Results 05/24/17 05/24/17 10:19 16:18 Troponin I 0.04 H* 0.04 H*
[2017-05-24] MEDS ORDERED: Furosemide 40 MG TABLET PO SCH (17:00)
[2017-05-24] MEDS: Furosemide 40 MG/4 ML VIAL IVP SCH (22:18)
[2017-05-25 04:53] LABS: Basophils % 0.4 %; Eosinophils # 0.3 K/mcL (0.0-0.6); Eosinophils % 2.7 %; Hematocrit 44.6 % (37.5-50.1); Hemoglobin 14.6 g/dL (12.9-16.9); Immature Granulocytes % 0.3 % (0-4); Lymphocytes # 1.2 K/mcL (0.6-4.6); Lymphocytes % 12.1 %; Mean Corpuscular HGB Conc 32.7 g/dL (31.6-35.5); Mean Corpuscular Hemoglobin 27.8 pg (28.0-33.3); Monocytes # 0.8 K/mcL (0.0-1.3); Monocytes % 8.5 %; Neutrophils # 7.4 K/mcL (1.6-8.9); Platelet Count 196 K/mcL (140-400); Red Blood Count 5.25 M/mcL (4.19-5.50); Red Cell Distribution Width 16.9 % (11.5-14.5)
[2017-05-25 05:14] LABS: BUN/Creatinine Ratio 18 (6-26); Blood Urea Nitrogen 20 mg/dL (8-23); Calcium 10.1 mg/dL (8.6-10.3); Carbon Dioxide 29 mEq/L (23-29); Chloride 104 mEq/L (98-107); Glucose 99 mg/dL (70-105); Magnesium 1.9 mg/dL (1.6-2.6); Osmolality,Calculated 295 (280-300); Sodium 141 mEq/L (136-145); eGFR For African Americans > 60 (> 60); eGFR For Non-African Americans > 60 (> 60)
[2017-05-25] MEDS: Insulin LISPRO 300 UNITS/3 ML VIAL SQ SCH ×4 (08:11→22:08)
[2017-05-25] MEDS ORDERED: Furosemide 40 MG/4 ML VIAL IVP SCH (08:15)
[2017-05-25] MEDS: Isosorbide MONOnitrate (24 HR) 60 MG TAB.ER.24H PO SCH (08:18)
[2017-05-25] MEDS: Aspirin Enteric Coated 81 MG Tablet PO SCH (08:18)
[2017-05-25] MEDS: Multivit/Ca/Min/Fe/FA 1 TAB TABLET PO SCH (08:18)
[2017-05-25] MEDS: Ascorbic Acid 500 MG TABLET PO SCH (08:18)
[2017-05-25] MEDS: Cyanocobalamin (B-12) 1,000 MCG TABLET PO SCH (08:18)
[2017-05-25] MEDS: Furosemide 40 MG/4 ML VIAL IVP SCH (08:19)
[2017-05-25] MEDS: *HR* Ticagrelor 90 MG TABLET PO SCH ×2 (08:19→22:08)
--- NOTE | 2017-05-25 09:55 | Cardiology Progress Note ---
Date of Encounter: 05/25/17 Time of Encounter: 08:30 Assessment and Plan (1) Acute systolic congestive heart failure Current Visit: No Status: Acute Per cardiology: -Acute on chronic systolic CHF. -BNP 800s. -Reports weight gain at home. -Weight down 2.7kg since admission. -Net negative 1700ml. -States shortness of breath imrpoved -Euvolemic on exam. -Will switch lasix to po. -Strict i/os, daily weights, fluid restriction. -CHF education reinforced with patient. -CArdiology will sign off and will follow in outpatient setting. FOllow up set. (2) Elevated troponin Current Visit: No Status: Acute Per cardiology: -Troponins 0.04 x3. Troponins chronically elevated. -Has chronic reproduceable chest pain. Denies exertional symptoms. -Stress 03/2017 negative for ischemia, prior infarct noted. -Last TTE 02/2017 with LVEF 40%, unchanged. -No acute ECG changes. -Do not suspect NSTEMI. No cardiac rehab warranted. (3) Ischemic cardiomyopathy Current Visit: No Status: Chronic Per cardiology: -KNown ICM. -ON beta blokcer and clara inhibitor. -Last LVEF 40%. -will continue to monitor in outpatient setting. (4) Paroxysmal a-fib Current Visit: No Status: Chronic Per cardiology: -KNown history of PAF. -ON beta blcoker. -Not on anticoagulation due ot history of hematuria while on anticoagulation. -[id number] score 7 (age, HTN, CHF, vascular disease, hx CVA). Pateint is aware of increased risk of CVA and refuses anticoagulation. -Will continue to monitor in outpatient setting. -Of note, patient's code status is DNR-CC. (5) CAD (coronary artery disease) Current Visit: No Status: Chronic Per cardiology: -Known CAD. With [facility] 11/02/16 with 50% left main, 90% proximal LAD, 100% mid LAD , 99% instent thrombosis of ostial RCA 4 JATINDER were placed, ARROYO to LAD is patent , SVG to OM is patent. -ON asa, statin, beta blcoker, imdur, and brilinta. -Recommend dual anti-platelet therapy uninterrupted for at least one year. Qualifiers: Coronary Disease-Associated Artery/Lesion type: bypass graft [place] vs. transplanted heart: [place] heart Associated angina: with unspecified angina Qualified Code(s): I25.709 - Atherosclerosis of coronary artery bypass graft(s) , unspecified, with unspecified angina pectoris Discussion w patient/family: The assessment and plan as outlined above was discussed with the patient who expressed understanding and agreement. All questions were answered. Thank you for involving us in the care of your patient. Please call with any questions. Discussed and reviewed wit . Subjective Principal diagnosis: CHF Interval history: Pateint denies chest pain today, states breathing is much improved. Objective Vital Signs, Last 4 Hours Temp Pulse Resp BP Pulse Ox 05/25/17 07:04 97.8 F 67 20 121/75 97 General: Conversant, No Apparent Distress HEENT: Atraumatic, Normocephaly, Mucus Membranes Moist Neck: No JVD, Normal carotid pulses Cardiac: Reg Rate and Rhythm, Normal S1 and S2, No Murmur Lungs: Normal Breath Sounds, No Wheeze, Rales, Rhonchi Neuro: Alert and responsive, No focal deficits noted Abdomen: Soft, Non-Tender Skin: No rashes noted on visualized skin Musculoskeletal: No Chest Wall Tenderness Extremities: No Clubbing, No Cyanosis, No Edema, Normal Pulses Results 05/25/17 04:41 05/25/17 04:41 Lab Results Active Medications Acetaminophen (Tylenol) 650 mg PO Q6HR PRN PRN Reason: Mild Pain/Fever Stop: 11/23/17 08:40 Hydrocodone Bitart/Acetaminophen ([place] 5-325 Mg) 1 tab PO Q6HR PRN PRN Reason: Moderate Pain Stop: 11/23/17 08:40 Last Admin: 05/24/17 14:59 Dose: 1 tab Ascorbic Acid (Vitamin C) 500 mg PO DAILY [facility] Stop: 11/24/17 09:01 Last Admin: 05/25/17 08:18 Dose: 500 mg Aspirin (Aspirin Ec) 81 mg PO DAILY MACI Stop: 11/24/17 09:01 Last Admin: 05/25/17 08:18 Dose: 81 mg Atorvastatin Calcium (Lipitor) 40 mg PO HS [facility] Stop: 11/23/17 21:01 Last Admin: 05/24/17 22:18 Dose: 40 mg Carvedilol (Coreg) 3.125 mg PO BIDWM MACI PRN Reason: Protocol Stop: 11/23/17 17:01 Last Admin: 05/25/17 08:18 Dose: 3.125 mg Cyanocobalamin (Vitamin B12) 1,000 mcg PO DAILY MACI Stop: 11/24/17 09:01 Last Admin: 05/25/17 08:18 Dose: 1,000 mcg Dextrose/Water (Dextrose 50% (Syg)) 25 ml IVP AD PRN PRN Reason: Hypoglycemia Stop: 11/23/17 10:29 Docusate Sodium (Colace) 100 mg PO BID PRN; Protocol PRN Reason: Constipation Stop: 11/23/17 10:20 Furosemide (Lasix) 40 mg PO BIDDIURETIC MACI Stop: 11/24/17 17:01 Glucagon (Glucagen) 1 mg IM ONCE PRN PRN Reason: Hypoglycemia Stop: 11/23/17 10:29 Glucose (Gluctose) 15 gm PO ONCE PRN PRN Reason: Hypoglycemia Stop: 11/23/17 10:29 Glucose (Gluctose) 30 gm PO ONCE PRN PRN Reason: Hypoglycemia Stop: 11/23/17 10:29 Hydralazine HCl (Hydralazine) 10 mg IVP Q6HR PRN PRN Reason: Hypertension Stop: 11/23/17 10:30 Last Admin: 05/24/17 14:59 Dose: 10 mg Dextrose (Dextrose 5%) 1,000 mls @ 100 mls/hr IVC .Q10H PRN PRN Reason: HYPOGLYCEMIA Stop: 11/23/17 10:29 Insulin Human Lispro (Humalog) 0 units SQ HS MACI PRN Reason: Protocol Stop: 11/23/17 21:01 Last Admin: 05/24/17 22:19 Dose: Not Given Insulin Human Lispro (Humalog) 0 units SQ TIDAC MACI PRN Reason: Protocol Stop: 11/23/17 11:31 Last Admin: 05/25/17 08:11 Dose: Not Given Isosorbide Mononitrate (Imdur) 120 mg PO DAILY [facility] Stop: 11/24/17 09:01 Last Admin: 05/25/17 08:18 Dose: 120 mg Lisinopril (Zestril) 2.5 mg PO DAILY MACI PRN Reason: Protocol Stop: 11/24/17 09:01 Last Admin: 05/25/17 08:18 Dose: 2.5 mg Lorazepam (Ativan) 0.5 mg PO TID PRN PRN Reason: Anxiety Stop: 11/23/17 16:31 Last Admin: 05/24/17 16:35 Dose: 0.5 mg Multivitamins/Calcium (Thera M Plus) 1 tab PO DAILY [facility] Stop: 11/24/17 09:01 Last Admin: 05/25/17 08:18 Dose: 1 tab Naloxone HCl (Narcan) 0.4 mg IVP Q2MIN PRN PRN Reason: SEE COMMENTS Stop: 11/23/17 08:40 Nitroglycerin (Nitroglycerin) 0.4 mg SL Q5M PRN PRN Reason: Chest Pain Stop: 11/23/17 10:20 Last Admin: 05/24/17 12:15 Dose: 0.4 mg Omeprazole (Prilosec) 20 mg PO BIDAC [facility] PRN Reason: Protocol Stop: 11/23/17 16:31 Last Admin: 05/25/17 08:18 Dose: 20 mg Ondansetron HCl (Zofran) 4 mg IVP Q6HR PRN PRN Reason: Nausea And Vomiting Stop: 11/23/17 08:40 Potassium Chloride (Potassium Chloride) 10 meq PO DAILY MACI Stop: 11/24/17 09:01 Last Admin: 05/25/17 08:18 Dose: 10 meq Promethazine HCl (Phenergan) 12.5 mg IVP Q6HR PRN PRN Reason: Nausea And Vomiting Stop: 11/23/17 08:40 Last Admin: 05/24/17 14:59 Dose: 12.5 mg Tamsulosin HCl (Flomax) 0.4 mg PO DAILY [facility] PRN Reason: Protocol Stop: 11/24/17 09:01 Last Admin: 05/25/17 08:18 Dose: 0.4 mg Ticagrelor (Brilinta) 90 mg PO BID [facility] Stop: 11/23/17 10:31 Last Admin: 05/25/17 08:19 Dose: 90 mg Laboratory Tests 05/24/17 05/24/17 05/24/17 03:25 10:19 16:18 Hgb Potassium Creatinine Magnesium Troponin I 0.04 H* 0.04 H* 0.04 H* 05/25/17 05/25/17 04:41 04:41 Hgb 14.6 Potassium 4.0 Creatinine 1.14 Magnesium 1.9 Troponin I - Imaging and Cardiology Chest Xray: report reviewed Stress Test: report reviewed Echo: report reviewed Cardiac cath: report reviewed - EKG Interpretation EKG results cardiology: other (Telemetry reviewed with average HR previous 12 hours noted to be 67, paced. PVCs and PACs noted.) Consult Discharge Plan - Plan Referrals: Lance Cronin MD [Primary Care Provider] -
[2017-05-25] MEDS: Furosemide 40 MG TABLET PO SCH (16:02)
[2017-05-25] MEDS: *HR* HYDROcodone/Acet 5/325 mg TABLET PO PRN (16:02)
--- NOTE | 2017-05-25 22:45 | Internal Med Progress Note ---
Date of Encounter: 05/25/17 Time of Encounter: 10:00 - Assessment and plan (1) Acute on chronic systolic (congestive) heart failure Status: Acute Assessment and plan: Patient is well-known to hospitalist service due to multiple readmissions with similar complaints area noted to be extremely noncompliant with fluid restriction and medications at home. Cardiology consult appreciated. Continue diuresis with IV Lasix, fluid restriction and urine output monitoring. Continue beta fuentes, TEE inhibitor, nitrates. Telemetry monitoring. Limited echocardiogram from February 2017 shows ejection fraction of 40%. (2) Chest pain Status: Acute Assessment and plan: Suspected musculoskeletal per cardiology. Serial troponins are flattened adynamic. Nuclear stress test 2 months ago was negative for acute ischemia. Continue current management and telemetry monitoring. Qualifiers: Chest pain type: precordial pain Qualified Code(s): R07.2 - Precordial pain (3) CAD (coronary artery disease) Status: Chronic Assessment and plan: Continue aspirin, Plavix, beta fuentes, statin, TEE inhibitor. Patient is also noted to be on Imdur and when necessary nitroglycerin for chest pain. Qualifiers: Coronary Disease-Associated Artery/Lesion type: bypass graft [place] vs. transplanted heart: [place] heart Associated angina: with unspecified angina Qualified Code(s): I25.709 - Atherosclerosis of coronary artery bypass graft(s) , unspecified, with unspecified angina pectoris (4) DM2 (diabetes mellitus, type 2) Status: Chronic Assessment and plan: Blood sugars well controlled. Continue Accu-Chek blood glucose monitoring with sliding scale insulin. Diabetic diet. Qualifiers: Diabetes mellitus complication status: with circulatory complication Diabetes mellitus complication detail: with other circulatory complications Diabetes mellitus 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 insulin use: without correction use Qualified Code( s): E11.59 - Type 2 diabetes mellitus with other circulatory complications (5) HLD (hyperlipidemia) Status: Chronic Qualifiers: Hyperlipidemia type: unspecified Qualified Code(s): E78.5 - Hyperlipidemia , unspecified (6) HTN (hypertension) Status: Chronic Qualifiers: Hypertension type: essential hypertension Qualified Code(s): I10 - Essential (primary) hypertension (7) Hypothyroidism Status: Chronic Qualifiers: Hypothyroidism type: unspecified Qualified Code(s): E03.9 - Hypothyroidism , unspecified (8) Paroxysmal a-fib Status: Chronic Assessment and plan: Currently rate controlled. Not on anticoagulant patient due to previous history of hematuria, per old records. - Subjective Interval history: Reports feeling better; improved chest pain and shortness of breath; no leg swelling, orthopnea; - Constitutional Vitals: Temp Pulse Resp BP Pulse Ox 97.7 F 71 16 105/53 96 05/25/17 21:36 05/25/17 21:36 05/25/17 21:36 05/25/17 21:36 05/25/17 21:36 General appearance: Present: cooperative, A&O X 3, no acute distress, answers questions appropriately - Respiratory Respiratory exam: Present: CTAB. Absent: accessory muscle use, rales, rhonchi, wheezes - Cardiovascular Cardiovascular exam: Present: RRR, +S1, +S2. Absent: diastolic murmur, gallop, rubs, systolic murmur - GI/Abdominal GI/Abdominal exam: Present: normal bowel sounds, soft, no peritoneal signs. Absent: distended, tenderness - Extremities Exam Extremities exam: Present: full ROM, warm, radial pulses palpable and symmetrical. Absent: calf tenderness, cyanotic, pedal edema - Neurological Exam Neurological exam: Present: CN II-XII intact, oriented X3, no focal deficits. Absent: pronater drift, facial droop, speech deficit Internal Medicine: Result - Labs CBC & Chem 7: 05/25/17 04:41 05/25/17 04:41 Labs: Short CBC 05/25/17 Range/Units 04:41 WBC 9.8 (4.3-11.1) K/mcL Hgb 14.6 (12.9-16.9) g/dL Hct 44.6 (37.5-50.1) % Plt Count 196 (140-400) K/mcL Neutrophils # 7.4 (1.6-8.9) K/mcL BMP 05/25/17 04:41 Sodium 141 Potassium 4.0 Chloride 104 Carbon Dioxide 29 BUN 20 Creatinine 1.14 Glucose 99 Calcium 10.1 - ABG Interpretation ABG results: PT/INR, D-dimer PT 11.5 Seconds (9.4-12.1) 05/24/17 03:25 Consult Discharge Plan - Plan Additional Instructions: F/up with PCP in 1-2 weeks F/up with Cardiology in 3-4 weeks Referrals: Lance Cronin MD [Primary Care Provider] - 05/31/17 2:15 pm (please follow up as schedule...) Odalis Garcia DO [Partnered Physician] - (vacuum worker will call the patient for an appt.) Prescriptions: Furosemide [Lasix] 40 mg PO BIDDIURETIC #60 tablet Nitroglycerin [Nitrostat] 0.4 mg SL Q5M PRN #30 tab.subl PRN Reason: Chest Pain
[2017-05-26] MEDS: Multivit/Ca/Min/Fe/FA 1 TAB TABLET PO SCH (10:10)
[2017-05-26] MEDS: Ascorbic Acid 500 MG TABLET PO SCH (10:10)
[2017-05-26] MEDS: Cyanocobalamin (B-12) 1,000 MCG TABLET PO SCH (10:10)
[2017-05-26] MEDS: Isosorbide MONOnitrate (24 HR) 60 MG TAB.ER.24H PO SCH (10:10)
[2017-05-26] MEDS: *HR* Ticagrelor 90 MG TABLET PO SCH (10:10)
[2017-05-26] MEDS: Aspirin Enteric Coated 81 MG Tablet PO SCH (10:10)
[2017-05-26] MEDS: Insulin LISPRO 300 UNITS/3 ML VIAL SQ SCH ×2 (10:11→11:32)
[2017-05-26] MEDS: Furosemide 40 MG TABLET PO SCH (10:11)
[2017-05-26 11:15] VITALS: BP 122/67
--- NOTE | 2017-05-26 13:44 | Discharge Summary ---
Date of Encounter: 05/26/17 Time of Encounter: 12:15 - Discharge Diagnosis (1) Chest pain Priority: Primary Status: Acute Qualifiers: Chest pain type: unspecified Qualified Code(s): R07.9 - Chest pain, unspecified (2) Acute on chronic systolic (congestive) heart failure Priority: Primary Status: Acute (3) Hypothyroidism Priority: Secondary Status: Chronic Qualifiers: Hypothyroidism type: unspecified Qualified Code(s): E03.9 - Hypothyroidism , unspecified (4) A-fib Priority: Secondary Status: Chronic Qualifiers: Atrial fibrillation type: chronic Qualified Code(s): I48.2 - Chronic atrial fibrillation (5) Acute respiratory failure with hypoxia Priority: Primary Status: Resolved (6) CAD (coronary artery disease) Priority: Secondary Status: Chronic Qualifiers: Coronary Disease-Associated Artery/Lesion type: bypass graft [place] vs. transplanted heart: [place] heart Associated angina: with unspecified angina Qualified Code(s): I25.709 - Atherosclerosis of coronary artery bypass graft(s) , unspecified, with unspecified angina pectoris (7) DM2 (diabetes mellitus, type 2) Priority: Secondary Status: Chronic Qualifiers: Diabetes mellitus complication status: with circulatory complication Diabetes mellitus complication detail: with other circulatory complications Diabetes mellitus rodent exterminator insulin use: without correction use Qualified Code( s): E11.59 - Type 2 diabetes mellitus with other circulatory complications (8) HLD (hyperlipidemia) Priority: Secondary Status: Chronic Qualifiers: Hyperlipidemia type: unspecified Qualified Code(s): E78.5 - Hyperlipidemia , unspecified (9) HTN (hypertension) Priority: Secondary Status: Chronic Qualifiers: Hypertension type: essential hypertension Qualified Code(s): I10 - Essential (primary) hypertension (10) Ischemic cardiomyopathy Priority: Secondary Status: Chronic (11) Pacemaker Priority: Secondary Status: Chronic Hospital course: Mr. Pizarro is a 76 year old male with multiple medical problems as mentioned above, who was admitted with chest pain and shortness of breath. Patient is well-known to the hospitalist and cardiology service with multiple frequent admissions with similar complaints. Initial labs,EKG and chest x-ray showed No acute abnormality. Patient has questionable compliance to fluid and dietary restriction and compliance to medications at home. Nuclear stress test done in March 2017 showed no evidence of acute ischemia, old infarct noted. Limited echocardiogram in February 2017 showed mildly reduced ejection fraction at 40%. He seems to be having chronic chest pain, reproducible. He was restarted on all his home medications including Imdur, Lasix and nitroglycerin. Cardiology was consulted and he received IV Lasix initially with significant urine output and 2 kg weight loss. Patient no longer requires supplemental oxygen. Home oxygen evaluation was done but patient did not qualify for home oxygen. He is currently medically stable for discharge with outpatient cardiology follow -up. Plan of care has been explained to the patient and his , medical compliance has been reinforced. stated that the patient has no Lasix or nitroglycerin at home (despite multiple recent admissions), requested for the prescriptions to be filled prior to discharge. Discharge discussed with: patient, family - Time Spent with Patient Total time spent providing and/or coordinating discharge services: Greater than 30 minutes (45 min) - Discharge Medications Prescriptions: Furosemide [Lasix] 40 mg PO BIDDIURETIC #60 tablet Nitroglycerin [Nitrostat] 0.4 mg SL Q5M PRN #30 tab.subl PRN Reason: Chest Pain Home Medications: Omeprazole [PriLOSEC] 20 mg PO BIDAC #60 11/04/16 [Rx] Ascorbate Calcium [Vitamin C] 500 mg PO DAILY 11/14/16 [History] Cyanocobalamin (Vitamin B-12) [Vitamin B12] 1,000 mcg PO DAILY 11/14/16 [History ] Multivitamin [One Daily Essential] 1 tab PO DAILY 11/14/16 [History] Aspirin Enteric Coated [Aspirin EC] 81 mg PO DAILY #30 tablet. 12/24/16 [Rx] Atorvastatin [Lipitor] 40 mg PO HS #30 tablet 12/24/16 [Rx] Carvedilol [Coreg] 3.125 mg PO BIDWM 30 Days tab 12/24/16 [Rx] Isosorbide MONOnitrate (24 HR) [Imdur] 120 mg PO DAILY #30 tab 12/24/16 [Rx] Lisinopril [Zestril] 2.5 mg PO DAILY #30 tab 12/24/16 [Rx] Tamsulosin [Flomax] 0.4 mg PO DAILY #30 capsule 12/24/16 [Rx] Ticagrelor [Brilinta] 90 mg PO BID 30 Days tab 12/24/16 [Rx] metFORMIN [Glucophage] 500 mg PO BID #60 tablet 12/24/16 [Rx] Docusate [Colace] 100 mg PO BID PRN #30 capsule 03/05/17 [Rx] Potassium Chloride [K-Tab ER] 10 meq PO DAILY #30 tablet.er 05/11/17 [Rx] Furosemide [Lasix] 40 mg PO BIDDIURETIC #60 tablet 05/26/17 [Rx] Nitroglycerin [Nitrostat] 0.4 mg SL Q5M PRN #30 tab.subl 05/26/17 [Rx] Allergies/Adverse Reactions: 3 Allergy/AdvReac Type Severity Reaction Status Date / Time Oxycodone [From Percocet] Allergy Hives Verified 05/09/17 06:53 tramadol Allergy Hives Verified 05/09/17 06:53 Date of admission: 05/24/17 07:45 Primary care physician: Lance Cronin MD Consults: 05/24/17 10:18 Consult to Cardiology [CONS] Routine Comment: Consulting Provider: [facility] [place] Reason for Consult: Acute chest pain.. Recurrent admissions.. Slightly elevated Trop Time Notified: 10:19 Call Completed: Yes Discharging clinician: Simran Lerma Anticipated date of discharge: 05/26/17 - Constitutional Vitals: Temp Pulse Resp BP Pulse Ox 98.1 F 70 18 122/67 97 05/26/17 11:11 05/26/17 11:11 05/26/17 11:11 05/26/17 11:11 05/26/17 11:50 General appearance: Present: cooperative, A&O X 3, no acute distress, answers questions appropriately - Cardiovascular Cardiovascular exam: Present: RRR, +S1, +S2. Absent: diastolic murmur, gallop, rubs, systolic murmur - Patient Status Disposition: Home, Self-Care Condition: Fair Functional capacity at discharge: independent ambulation Overall status at discharge: patient is progressing back to baseline - Discharge Instructions Follow Up With: Lance Cronin MD [Primary Care Provider] - Additional Instructions: F/up with PCP in 1-2 weeks F/up with Cardiology in 3-4 weeks - Diet and Activity Activity: increase activity as tolerated Diet: diabetic diet, low fat, low cholesterol, low salt diet (fluid restriction to 1.2L/day)
== END 2017-05-26 15:10 | disposition home or self-care (01) ==
LOC: EMEROO 03:05 → 2SOUTHHOLD 03:05 → 2ANU 16:59
PROVIDERS: ADMIT Family Medicine; ATTEND Internal Medicine

== ENCOUNTER 2017-06-27 01:37 | Inpatient (IN) ==
--- NOTE | 2017-06-27 03:59 | Emergency Department Note ---
START Narrative - START START: I examined this patient and my medical decision-making was reviewed with the Resident Physician. I agree with the documented findings, disposition and treatment plan as described except to the extent set forth below. 76 yo M here for chest pain. hx of CHF. ekg unchanged from previous; paced labs all negative; tr0p neg cxr concerning per radiology for chf
--- NOTE | 2017-06-27 04:04 | Emergency Department Note ---
Disposition Clinical Impression: Pleural effusion Chest pain Qualifiers: Chest pain type: unspecified Qualified Code(s): R07.9 - Chest pain, unspecified Dyspnea Qualifiers: Dyspnea type: unspecified Qualified Code(s): R06.00 - Dyspnea, unspecified Pulmonary edema Qualifiers: Chronicity: acute Qualified Code(s): J81.0 - Acute pulmonary edema CHF exacerbation Qualifiers: Heart failure type: unspecified Qualified Code(s): I50.9 - Heart failure, unspecified Disposition: Admitted As Inpatient Condition: Fair Time of Disposition: 05:13 Chest Pain HPI - General Chief Complaint: ED Chest Pain Stated Complaint: CHEST PAIN Time Seen by Provider: 06/27/17 03:57 Source: patient, EMS Mode of arrival: EMS Limitations: no limitations Vital Signs Reviewed: Yes Nursing Notes Reviewed: Yes - History of Present Illness HPI Narrative: Patient is a 76-year-old male with past medical history of CHF, previous ND, multiple stents in the past, triple bypass, hypertension, hyperlipidemia, A. fib , pacemaker placement. He presents today due to chest pain and shortness of breath. Chest pain started around 1 AM, approximately an hour prior to arrival , woke him up out of sleep, described as a sharp pressure/pain that is across his entire chest. Denies any radiation to arms or back. He has associated nausea but denies any vomiting, sweating, abdominal pain, numbness, tingling, weakness, productive cough, fevers. Patient was given aspirin and 1 nitroglycerin prior to arrival. He states that his pain was a 5 out of 10 on onset and did not improve at all with nitroglycerin that was given by EMS. No other recent surgeries, unilateral leg swelling, long car rides. Severity scale (1-10): 10 - Related Data Home Medications Medication Instructions Recorded Confirmed Ascorbate Calcium [Vitamin C] 500 mg PO DAILY 11/14/16 05/24/17 Cyanocobalamin (Vitamin B-12) 1,000 mcg PO DAILY 11/14/16 05/24/17 [Vitamin B12] Multivitamin [One Daily Essential] 1 tab PO DAILY 11/14/16 05/24/17 Previous Rx's Medication Instructions Recorded Omeprazole [PriLOSEC] 20 mg PO BIDAC #60 11/04/16 Aspirin Enteric Coated [Aspirin EC] 81 mg PO DAILY #30 tablet. 12/24/16 Atorvastatin [Lipitor] 40 mg PO HS #30 tablet 12/24/16 Carvedilol [Coreg] 3.125 mg PO BIDWM 30 Days tab 12/24/16 Isosorbide MONOnitrate (24 HR) 120 mg PO DAILY #30 tab 12/24/16 [Imdur] Lisinopril [Zestril] 2.5 mg PO DAILY #30 tab 12/24/16 Tamsulosin [Flomax] 0.4 mg PO DAILY #30 capsule 12/24/16 Ticagrelor [Brilinta] 90 mg PO BID 30 Days tab 12/24/16 metFORMIN [Glucophage] 500 mg PO BID #60 tablet 12/24/16 Docusate [Colace] 100 mg PO BID PRN #30 capsule 03/05/17 Potassium Chloride [K-Tab ER] 10 meq PO DAILY #30 tablet.er 05/11/17 Furosemide [Lasix] 40 mg PO BIDDIURETIC #60 tablet 05/26/17 Nitroglycerin [Nitrostat] 0.4 mg SL Q5M PRN #30 tab.subl 05/26/17 Allergies Allergy/AdvReac Type Severity Reaction Status Date / Time Oxycodone [From Percocet] Allergy Hives Verified 05/09/17 06:53 tramadol Allergy Hives Verified 05/09/17 06:53 All systems ED: reviewed and negative except as stated. Constitutional: Denies: fever Cardiovascular: Reports: chest pain, dyspnea on exertion Respiratory: Reports: dyspnea. Denies: cough, wheezes Gastrointestinal: Denies: abdominal pain, nausea, vomiting, diarrhea Genitourinary: Denies: urgency, dysuria Integumentary: Denies: rash Neurological: Denies: headache, weakness, numbness, paresthesias Chest Pain PMH - Past Medical History Medical history: Reports: asthma, atrial fibrillation, CHF, coronary artery disease, CVA, diabetes, hypertension, myocardial infarction, thyroid disease Surgical history: Reports: angioplasty/stent, cholecystectomy, coronary bypass ( CABG), pacemaker/AICD Psychiatric history: Reports: no psych history - Social History Smoking Status: Former smoker Alcohol use: Reports: none Drug use: Reports: none Physical Exam - General Limitations: no limitations General appearance: alert, in no apparent distress - Head Head exam: atraumatic, normocephalic, normal inspection - Eye Eye exam: Present: normal appearance, PERRL, EOMI - ENT ENT exam: normal exam, normal oropharynx, mucous membranes moist - Neck Neck exam: Present: normal inspection, full ROM, trachea midline - Chest Chest inspection: Present: symmetric chest wall rise, other (Midline bypass scar ). Absent: tenderness, rash - Respiratory Respiratory exam: Present: wheezes (Bilateral lower lobe wheezing/crackles) - Cardiovascular Cardiovascular exam: Present: regular rate, normal rhythm, normal heart sounds - Abdominal Exam Abdominal exam: Present: soft, Non-Tender. Absent: tenderness, distention, guarding, rebound, rigidity - Extremities Exam Extremities exam: Present: full ROM, pedal edema (Mild bilateral pitting edema) . Absent: tenderness, calf tenderness - Neurological Exam Neurological exam: Present: alert, oriented X3. Absent: motor sensory deficit - Psychiatric Psychiatric exam: Present: normal affect, normal mood - Skin Skin exam: Present: warm, dry, intact, normal color Course Course Narrative: Patient was placed on 2 L nasal cannula more for comfort and then due to hypoxia on presentation. Vitals are within normal limits on my exam. Physical exam showed no reproducible chest pain. Lung exam showed bilateral lower lobe wheezing and crackles. Mild pitting edema bilateral lower extremities. Otherwise abdomen soft and nontender. EKG showed no acute ST changes. Troponin was 0.03. Chest x-ray showed interstitial edema and bilateral pleural effusions. Patient was given IV Lasix 40 mg. He was also given fentanyl for pain control as he states that nitroglycerin is not working. Due to significant cardiac history and continuing chest pain, signs of CHF exacerbation , patient will be admitted to the hospital for further care. Vital Signs Temperature 0 F L 06/27/17 04:02 Pulse Rate 0 06/27/17 04:02 Respiratory Rate 0 06/27/17 04:02 Blood Pressure 0/0 06/27/17 04:02 O2 Sat by Pulse Oximetry 0 06/27/17 04:02 Temperature 0 F L 06/27/17 04:02 Pulse Rate 66 06/27/17 04:11 Respiratory Rate 20 06/27/17 04:11 Blood Pressure 164/98 06/27/17 04:11 O2 Sat by Pulse Oximetry 97 06/27/17 04:11 Oxygen Delivery Oxygen Delivery Nasal Cannula Chest Pain - MDM Narrative Medical decision making narrative: Patient was placed on 2 L nasal cannula more for comfort and then due to hypoxia on presentation. Vitals are within normal limits on my exam. Physical exam showed no reproducible chest pain. Lung exam showed bilateral lower lobe wheezing and crackles. Mild pitting edema bilateral lower extremities. Otherwise abdomen soft and nontender. EKG showed no acute ST changes. Troponin was 0.03. Chest x-ray showed interstitial edema and bilateral pleural effusions. Patient was given IV Lasix 40 mg. He was also given fentanyl for pain control as he states that nitroglycerin is not working. Due to significant cardiac history and continuing chest pain, signs of CHF exacerbation , patient will be admitted to the hospital for further care. - Medical Records Medical records reviewed: Yes I reviewed the patient's medical records. - Lab Data Lab results reviewed: Yes I reviewed the patient's lab results. Result diagrams: 06/27/17 02:03 06/27/17 02:03 Lab Results 06/27/17 06/27/17 06/27/17 Range/Units 02:03 02:03 02:03 WBC 8.4 (4.3-11.1) K/mcL RBC 4.52 (4.19-5.50) M/mcL Hgb 12.8 L (12.9-16.9) g/dL Hct 38.9 (37.5-50.1) % MCV 86.1 (83.0-100.0) fL MCH 28.3 (28.0-33.3) pg MCHC 32.9 (31.6-35.5) g/dL RDW 16.1 H (11.5-14.5) % Plt Count 142 (140-400) K/mcL MPV 11.5 (9.4-12.4) fL Immature Gran % 0.2 (0-4) % Seg Neutrophils % 67.9 % Lymphocytes % 16.2 % Monocytes % 9.2 % Eosinophils % 5.5 % Basophils % 1.0 % Neutrophils # 5.7 (1.6-8.9) K/mcL Lymphocytes # 1.4 (0.6-4.6) K/mcL Monocytes # 0.8 (0.0-1.3) K/mcL Eosinophils # 0.5 (0.0-0.6) K/mcL Basophils # 0.1 (0.0-0.2) K/mcL Immature Plt Fraction 5.8 (1.1-6.1) % PT 12.6 H (9.4-12.1) Seconds INR 1.2 APTT 30.8 (26.0-36.0) Seconds Sodium 140 (136-145) mEq/L Potassium 3.9 (3.5-5.1) mEq/L Chloride 108 H (98-107) mEq/L Carbon Dioxide 28 (23-29) mEq/L BUN 21 (8-23) mg/dL Creatinine 1.03 (0.70-1.30) mg/dL Est GFR ( Amer) > 60 (> 60) Est GFR (Non-Af Amer) > 60 (> 60) BUN/Creatinine Ratio 20 (6-26) Glucose 138 H (70-105) mg/dL Calculated Osmolality 295 (280-300) Calcium 9.6 (8.6-10.3) mg/dL Troponin I 0.03 (< 0.04) ng/mL - Radiology Data Radiology results reviewed: Yes I reviewed the patient's radiology results. - EKG Data EKG attestation: Yes I reviewed and interpreted this EKG. EKG results narrative: EK06/27/2017 01:41. Paced rhythm. Rate 64. SD 151. QRS 196. QTC 515. No acute ST elevation or depression. Heart Score - Score History: Moderately Suspicious EKG: Normal Age: Greater than 65 Risk Factors: Equal/Greater than 3 risk factor or history of atherosclerotic disease Troponin: Less than normal limit HEART Score Total: 5 S.B.A.R. - S.B.A.R. Situation: Demographics, MOA Background: Presenting Complaint, Relevant PMH, Meds, & Allergies Assessment: Vital Signs, Course and respsone to treatment, Exam Concerns, Patient/Family Expectation, Pertinant Lab Results Recommendation: Barrier(s) to disposition, Recommendation based on pending studies, treatments, or consults S.B.A.R. Report Given to: Dr. Pantoja
[2017-06-27] MEDS ORDERED: Furosemide 40 MG/4 ML VIAL IVP ONE (04:08)
[2017-06-27 04:24] LABS: Basophils # 0.1 K/mcL (0.0-0.2); Eosinophils # 0.5 K/mcL (0.0-0.6); Eosinophils % 5.5 %; Hematocrit 38.9 % (37.5-50.1); Hemoglobin 12.8 g/dL (12.9-16.9); Immature Granulocytes % 0.2 % (0-4); Immature Platelets 5.8 % (1.1-6.1); Lymphocytes # 1.4 K/mcL (0.6-4.6); Lymphocytes % 16.2 %; Mean Corpuscular HGB Conc 32.9 g/dL (31.6-35.5); Mean Corpuscular Hemoglobin 28.3 pg (28.0-33.3); Mean Corpuscular Volume 86.1 fL (83.0-100.0); Mean Platelet Volume 11.5 fL (9.4-12.4); Monocytes # 0.8 K/mcL (0.0-1.3); Monocytes % 9.2 %; Neutrophils # 5.7 K/mcL (1.6-8.9); Platelet Count 142 K/mcL (140-400); Red Blood Count 4.52 M/mcL (4.19-5.50); Red Cell Distribution Width 16.1 % (11.5-14.5); Segmented Neutrophils % 67.9 %
[2017-06-27 04:25] LABS: Activated Partial Thrombo Time 30.8 Seconds (26.0-36.0); INR 1.2; Prothrombin Time 12.6 Seconds (9.4-12.1)
[2017-06-27 04:34] LABS: BUN/Creatinine Ratio 20 (6-26); Blood Urea Nitrogen 21 mg/dL (8-23); Calcium 9.6 mg/dL (8.6-10.3); Carbon Dioxide 28 mEq/L (23-29); Chloride 108 mEq/L (98-107); Glucose 138 mg/dL (70-105); Osmolality,Calculated 295 (280-300); Potassium 3.9 mEq/L (3.5-5.1); Sodium 140 mEq/L (136-145); Troponin I 0.03 ng/mL (< 0.04); eGFR For African Americans > 60 (> 60); eGFR For Non-African Americans > 60 (> 60)
[2017-06-27] MEDS ORDERED: *HR* FentaNYL (PF) 100 MCG/2 ML VIAL IVP ONE (04:39)
[2017-06-27] MEDS ORDERED: Naloxone 0.4 MG/ML INJ IVP PRN (04:44)
--- NOTE | 2017-06-27 04:47 | Event Note ---
Date of Encounter: 06/27/17 Time of Encounter: 04:43 76 year old male well known to the hospitalist service and the cardiology service with a PMHx of CAD s/p CABG and PCI, CVA, A fib, Systolic CHF with LVEF 40 %, s/p Pacemaker/AICD, DM, HTN, asthma, thyroid disease who presented to ER with c/o intermittent chest pain and shortness of breath. The patient has had a significant amount of admissions in ED visits on a regular basis for similar complaints. Nuclear stress test done in March 2017 showed no evidence of acute ischemia, old infarct noted. Limited echocardiogram in February 2017 showed mildly reduced ejection fraction at 40%. His chest pains it is reproducible. Workup in the ED showed findings of possible CHF although we do not have the images uploaded due to mobif[employer] being down for sometime throughout the night. EKG with no ST or T-wave changes. Labs unremarkable. Patient has questionable compliance. He needs to be seen by nurse case management and PTOT for possible placement. He usually gets admitted gets diuresed for a day or so and gets discharged. We will again do the same this time. O2 support. Nebs. Resume home meds. Trend cardiac enzymes. No need to repeat any cardiac workup.
[2017-06-27] MEDS ORDERED: *HR* Dextrose 50 % in Water (Syg) 50 ML SYRINGE IVP PRN (05:00)
[2017-06-27] MEDS ORDERED: D5% in Water 1,000 ML IVC PRN (05:00)
[2017-06-27] MEDS ORDERED: Dextrose Gel 15 GM/37.5 ML TUBE PO PRN ×2 (05:00)
--- NOTE | 2017-06-27 05:08 | Internal Med History&Physical ---
Date of Encounter: 06/27/17 Time of Encounter: 04:30 Internal Medicine - H&P: HPI Chief complaint: Chest pain Admitted From: Emergency Dept History of present illness: Mr. Pizarro is a 76 year old male with PMH of systolic CHF s/p PM/AICD, CAD s/ p CABG and PCI, A. fib, CVA, HTN, DM, and asthma, presented to the emergency department with 2-3 hour history of diffuse constant chest pain and shortness of breath. He reports that symptoms began while laying in bed. Pain is nonradiating. He reports associated intermittent nausea, dry cough, and bilateral LE edema. Pain is reproducible to palpation. Denies diaphoresis, lightheadedness, syncope, falls, worsening pain with exertion. He reports he has these symptoms frequently. Denies fevers, chills, headaches, changes in vision, vomiting, changes in bowels, hematochezia, melena, dysuria, hematuria, or leg pain. Denies recent surgeries or long travel. Patient has had several ED visits and admissions, appears to be well known by the hospitalist and cardiology services. Past Med Surg Social Fam HX - Past Medical History Medical history: asthma, atrial fibrillation, CHF, coronary artery disease, CVA , diabetes, hypertension, myocardial infarction, thyroid disease Psychiatric history: no psych history - Past Surgical History Surgical History: angioplasty/stent, cholecystectomy, coronary bypass (CABG), pacemaker/AICD - Social History Smoking Status: Former smoker Smokeless Tobacco Status: No Alcohol use: none Drug use: none - Family History Grandfather Family Member Ethnicity: Non- Living Status: Hx Family Cardiac Disorders: Yes ([place]) Mother Family Member Ethnicity: Non- Living Status: Hx Family Neurologic Disorders: Yes (CVA) Father Adopted: No Family Member Ethnicity: Non- Living Status: Hx Family Cardiac Disorders: No Hx Family Respiratory Disorders: No Hx Family Cancer: Yes (Unknown what type) Hx Family GI Disorders: No Hx Family Endocrine Disorder: No Hx Family Neuromuscular Disorders: No Hx Family Neurologic Disorders: No Hx Family HEENT Disorders: No Hx Family Autoimmune Disorders: No Internal Medicine - H&P: Meds Omeprazole [PriLOSEC] 20 mg PO BIDAC #60 11/04/16 [Rx] Ascorbate Calcium [Vitamin C] 500 mg PO DAILY 11/14/16 [History] Cyanocobalamin (Vitamin B-12) [Vitamin B12] 1,000 mcg PO DAILY 11/14/16 [History ] Multivitamin [One Daily Essential] 1 tab PO DAILY 11/14/16 [History] Aspirin Enteric Coated [Aspirin EC] 81 mg PO DAILY #30 tablet.dr 12/24/16 [Rx] Atorvastatin [Lipitor] 40 mg PO HS #30 tablet 12/24/16 [Rx] Carvedilol [Coreg] 3.125 mg PO BIDWM 30 Days tab 12/24/16 [Rx] Isosorbide MONOnitrate (24 HR) [Imdur] 120 mg PO DAILY #30 tab 12/24/16 [Rx] Lisinopril [Zestril] 2.5 mg PO DAILY #30 tab 12/24/16 [Rx] Tamsulosin [Flomax] 0.4 mg PO DAILY #30 capsule 12/24/16 [Rx] Ticagrelor [Brilinta] 90 mg PO BID 30 Days tab 12/24/16 [Rx] metFORMIN [Glucophage] 500 mg PO BID #60 tablet 12/24/16 [Rx] Docusate [Colace] 100 mg PO BID PRN #30 capsule 03/05/17 [Rx] Potassium Chloride [K-Tab ER] 10 meq PO DAILY #30 tablet.er 05/11/17 [Rx] Furosemide [Lasix] 40 mg PO BIDDIURETIC #60 tablet 05/26/17 [Rx] Nitroglycerin [Nitrostat] 0.4 mg SL Q5M PRN #30 tab.subl 05/26/17 [Rx] 3 Allergy/AdvReac Type Severity Reaction Status Date / Time Oxycodone [From Percocet] Allergy Hives Verified 05/09/17 06:53 tramadol Allergy Hives Verified 05/09/17 06:53 All Systems PM: A 10-system review of systems was performed and is negative for pertinent findings except as documented above in the HPI. - Constitutional Vitals: Temp Pulse Resp BP Pulse Ox 0 F L 66 20 164/98 97 06/27/17 04:02 06/27/17 04:11 06/27/17 04:11 06/27/17 04:11 06/27/17 04:11 General appearance: Present: A&O X 3, no acute distress - Head Head exam: Present: atraumatic, normocephalic - Eye Eye exam: Present: EOMI, PERRL, conjuntiva pink, sclera anicteric - Neck Neck exam general surgery: Present: supple, trachea midline. Absent: lymphadenopathy - Respiratory Respiratory exam: Present: rales ( mild bibasilar). Absent: accessory muscle use, rhonchi, wheezes - Cardiovascular Cardiovascular exam: Present: RRR, +S1, +S2. Absent: diastolic murmur, systolic murmur - GI/Abdominal GI/Abdominal exam: Present: normal bowel sounds, soft, tenderness (diffuse), no peritoneal signs. Absent: distended - Extremities Exam Extremities exam: Present: pedal edema (+1 pitting edema bilaterally), warm, radial pulses palpable and symmetrical. Absent: calf tenderness, cyanotic - Neurological Exam Neurological exam: Present: CN II-XII intact, oriented X3, no focal deficits, strengths equal and symetr throughout. Absent: facial droop, speech deficit - Skin Skin exam: Present: dry, intact Internal Med - H&P Results - Labs CBC & Chem 7: 06/27/17 02:03 06/27/17 02:03 - Assessment and plan (1) Acute on chronic systolic (congestive) heart failure Current Visit: Yes Status: Acute Assessment and plan: Dyspnea with mild LE edema, crackles on lung exam, and CXR with vascular congestion and mild bilateral pleural effusions Echo 02/2017: EF 40%. Stress test 03/2017: no evidence of ischemia. Will not repeat cardiac work-up at this time Troponin negative - will trend. Other labs unremarkable. Vitals stable Lasix 40 IV BID, daily weights, I&O's, continuous telemetry (2) Chest pain Current Visit: Yes Status: Acute Assessment and plan: Patient with multiple admissions/ED for chest pain. Reproducible to palpation Troponin negative - will trend. EKG shows paced rhythm with no ST changes Continues to report chest pain despite being on Imdur 120mg - may consider adding Ranexa From previous visits it appears the patient is already on ASA, BB, ACEI, statin , brillinta - continue once home meds have been reconciled Qualifiers: Chest pain type: precordial pain Qualified Code(s): R07.2 - Precordial pain (3) CAD (coronary artery disease) Current Visit: Yes Status: Chronic Assessment and plan: s/p CABG and PCI. Resume home meds once reconciled. Qualifiers: Coronary Disease-Associated Artery/Lesion type: bypass graft [place] vs. transplanted heart: [place] heart Associated angina: with unspecified angina Qualified Code(s): I25.709 - Atherosclerosis of coronary artery bypass graft(s) , unspecified, with unspecified angina pectoris (4) A-fib Current Visit: Yes Status: Chronic Assessment and plan: Currently paced rhythm, HR 66. Continue home meds once reconciled. Qualifiers: Atrial fibrillation type: chronic Qualified Code(s): I48.2 - Chronic atrial fibrillation (5) Pacemaker Current Visit: Yes Status: Chronic (6) DM2 (diabetes mellitus, type 2) Current Visit: Yes Status: Chronic Assessment and plan: Hold home meds. SSI. Glucose 138. Last A1c 6.6%. Qualifiers: Diabetes mellitus snf insulin use: without snf use Diabetes mellitus complication status: with circulatory complication Diabetes mellitus complication detail: with other circulatory complications Qualified Code(s): E11.59 - Type 2 diabetes mellitus with other circulatory complications (7) HTN (hypertension) Current Visit: Yes Status: Chronic Assessment and plan: 166/74. Resume home meds once reconciled. Add hydralazine PRN. Qualifiers: Hypertension type: essential hypertension Qualified Code(s): I10 - Essential (primary) hypertension (8) DVT prophylaxis Current Visit: Yes Status: Acute Assessment and plan: Lovenox - Time Spent With Patient Total time spent is greater than 50% in coordination of care (as documented) at patient's floor/unit and/or counseling patient:
[2017-06-27] MEDS ORDERED: hydrALAZINE 10 MG TABLET PO PRN (05:20)
[2017-06-27] MEDS: *HR* Enoxaparin 40 MG/0.4 ML SYRINGE SQ SCH (06:29)
[2017-06-27] MEDS: Furosemide 40 MG/4 ML VIAL IVP SCH ×2 (06:29→18:04)
[2017-06-27] MEDS: Insulin LISPRO 300 UNITS/3 ML VIAL SQ SCH ×4 (06:30→20:23)
[2017-06-27] MEDS: Isosorbide MONOnitrate (24 HR) 60 MG TAB.ER.24H PO SCH (11:21)
[2017-06-27] MEDS ORDERED: Nitroglycerin 0.4 MG TAB.SUBL SL PRN (11:49)
[2017-06-27] MEDS: Acetaminophen 325 MG TABLET PO PRN ×2 (13:01→23:57)
[2017-06-27] MEDS: Aspirin Enteric Coated 81 MG Tablet PO SCH (13:05)
[2017-06-27] MEDS: *HR* Ticagrelor 90 MG TABLET PO SCH ×2 (13:05→20:23)
[2017-06-28] MEDS: Acetaminophen 325 MG TABLET PO PRN ×2 (06:17→20:17)
[2017-06-28] MEDS: *HR* Enoxaparin 40 MG/0.4 ML SYRINGE SQ SCH (06:17)
[2017-06-28] MEDS: Insulin LISPRO 300 UNITS/3 ML VIAL SQ SCH ×4 (06:24→20:18)
[2017-06-28] MEDS: Isosorbide MONOnitrate (24 HR) 60 MG TAB.ER.24H PO SCH (09:28)
[2017-06-28] MEDS: Aspirin Enteric Coated 81 MG Tablet PO SCH (09:28)
[2017-06-28] MEDS: *HR* Ticagrelor 90 MG TABLET PO SCH ×2 (09:28→20:17)
[2017-06-28] MEDS: Furosemide 40 MG/4 ML VIAL IVP SCH ×2 (09:29→16:13)
--- NOTE | 2017-06-28 18:02 | Internal Med Progress Note ---
Date of Encounter: 06/28/17 Time of Encounter: 13:10 - Assessment and plan (1) Acute on chronic systolic (congestive) heart failure Status: Acute Assessment and plan: Limited echocardiogram in January 2017 shows ejection fraction of 40%. Nuclear stress test in March 2017 was negative for ischemia. Continue diuresis with IV Lasix along with fluid restriction, urine output monitoring, daily weights. Telemetry monitoring. Continue beta fuentes, nitrate, TEE inhibitor. Has been evaluated by cardiology multiple times in the past, recommend no further intervention. (2) Chest pain Status: Acute Assessment and plan: Multiple recurrent admissions with similar complaints. Chest pain noted to be reproducible for the most part, likely musculoskeletal. Continue current management. Remaining plan as above. Qualifiers: Chest pain type: precordial pain Qualified Code(s): R07.2 - Precordial pain (3) A-fib Status: Chronic Assessment and plan: Not on anticoagulation as outpatient due to fall risk. Continue beta fuentes. Currently rate controlled. Qualifiers: Atrial fibrillation type: chronic Qualified Code(s): I48.2 - Chronic atrial fibrillation (4) CAD (coronary artery disease) Status: Chronic Assessment and plan: Continue aspirin, statin, beta fuentes, TEE inhibitor. Patient has pacemaker/ defibrillator in place. Qualifiers: Coronary Disease-Associated Artery/Lesion type: bypass graft [place] vs. transplanted heart: [place] heart Associated angina: with stable angina Qualified Code(s): I25.708 - Atherosclerosis of coronary artery bypass graft(s) , unspecified, with other forms of angina pectoris (5) DM2 (diabetes mellitus, type 2) Status: Chronic Assessment and plan: Blood sugars noted to be well controlled. Continue Accu-Chek blood glucose monitoring with sliding scale insulin as needed. Diabetic diet. Qualifiers: Diabetes mellitus custodial insulin use: without custodial use Diabetes mellitus complication status: with circulatory complication Diabetes mellitus complication detail: with other circulatory complications Qualified Code(s): E11.59 - Type 2 diabetes mellitus with other circulatory complications (6) HLD (hyperlipidemia) Status: Chronic Qualifiers: Hyperlipidemia type: unspecified Qualified Code(s): E78.5 - Hyperlipidemia , unspecified (7) HTN (hypertension) Status: Chronic Qualifiers: Hypertension type: essential hypertension Qualified Code(s): I10 - Essential (primary) hypertension (8) Hypothyroidism Status: Chronic Qualifiers: Hypothyroidism type: unspecified Qualified Code(s): E03.9 - Hypothyroidism , unspecified (9) Hip pain Status: Acute Assessment and plan: Patient reported right hip and femoral pain to me yesterday, although he did not report at admission. Pelvic and right femur x-rays show no fracture or other abnormalities. Continue supportive care, pain control with when necessary Tylenol. Physical and occupational therapy evaluation recommended ECF placement. Patient was seen by social group worker, however although he was agreeable initially , after speaking with his spouse, he continued to adamantly refuse placement, agreeable to home health services. Qualifiers: Laterality: right Qualified Code(s): M25.551 - Pain in right hip - Time Spent With Patient Total time spent is greater than 50% in coordination of care (as documented) at patient's floor/unit and/or counseling patient: - Subjective Interval history: Reports some shortness of breath and right-sided chest pain; no cough, fever/ chills; improved right hip and leg pain; - Constitutional Vitals: Temp Pulse Resp BP Pulse Ox 97.8 F 70 20 103/65 97 06/28/17 16:30 06/28/17 16:30 06/28/17 16:30 06/28/17 16:30 06/28/17 16:30 General appearance: Present: A&O X 3, no acute distress, answers questions appropriately - Respiratory Respiratory exam: Present: CTAB. Absent: accessory muscle use, rales, rhonchi, wheezes - Cardiovascular Cardiovascular exam: Present: RRR, +S1, +S2. Absent: diastolic murmur, gallop, rubs, systolic murmur - GI/Abdominal GI/Abdominal exam: Present: normal bowel sounds, soft, no peritoneal signs. Absent: distended, tenderness - Extremities Exam Extremities exam: Present: full ROM, warm, radial pulses palpable and symmetrical. Absent: calf tenderness, cyanotic, pedal edema Internal Medicine: Result - Labs CBC & Chem 7: 06/29/17 00:54 06/29/17 00:54 - ABG Interpretation ABG results: PT/INR, D-dimer PT 12.6 Seconds (9.4-12.1) H 06/27/17 02:03 Consult Discharge Plan - Plan Additional Instructions: F/up with PCP in 1-2 weeks Follow-up appointments: If there is not an appointment listed below, please call your physician and schedule a follow-up appointment. If you have congestive heart failure and your symptoms return, make an appointment with your physician. Medication List: Carry an up to date list of medications you are taking at all time. We have given you an updated medication list including any new medications that you have been prescribed. Please provide that list to your primary provider Symptoms: If your condition changes or you experience any of the following symptoms, notify your physician immediately: Unusual or worsening pain, fever, persistent nausea and vomiting, bleeding, increase in swelling (especially in your legs), sudden weight gain, extreme dizziness, chest pain, increased drainage or redness from a wound or incision. Go to the emergency department if you experience a problem with breathing. Weights: If you have a history of swelling or shortness of breath, weigh yourself daily and notify your physician if you have a weight gain of two or more pounds in one day or 5 or more pounds in a week. If you experience any of the warning signs for stroke: Sudden numbness or weakness of the face, arm or leg; especially on one side of the body, sudden confusion, trouble speaking or understanding, sudden trouble seeing in one or both eyes, sudden trouble walking, dizziness, loss of balance or coordination, sudden sever headache with no cause; Call 911 or go to the emergency room. Stroke is a medical emergency. Some risk factors for stroke: Age, cigarette smoking, diabetes, excessive alcohol consumption, family history , high blood pressure, overweight, physical inactivity, prior stroke, heart attack, diagnosis of carotid artery stenosis or other artery disease. If you smoke, STOP: Smoking or tobacco use significantly increases your risk of heart and lung disease. Your chance of disease greatly increases if you continue to smoke. For more information, call the [place] tobacco quit line for smoking cessation QUIT-NOW ( ) Referrals: Lance Cronin MD [Primary Care Provider] -
--- NOTE | 2017-06-29 | Electrocardiograph Report ---
[place] [id number] Test Date: 2017-06-27 Pat Name: Yue Pizarro Department: 103 Room: [facility] Gender: M Campaign Specialist: CONRADO : 1940 Requested By: Simran Lerma Order Number: [id number] Reading MD: Anastacia Garcia Measurements Intervals [place] Rate: 64 P: 174 MI: 151 QRS: -33 QRSD: 196 T: 94 QT: 506 QTc: 515 Interpretive Statements ELECTRONIC ATRIAL PACEMAKER ELECTRONIC VENTRICULAR PACEMAKER ABNORMAL RHYTHM ECG Electronically Signed On 06-28-2017 23:59:06 EDT by Anastacia Garcia
[2017-06-29 01:44] LABS: Basophils # 0.1 K/mcL (0.0-0.2); Basophils % 0.8 %; Eosinophils # 0.4 K/mcL (0.0-0.6); Eosinophils % 4.9 %; Hematocrit 40.4 % (37.5-50.1); Hemoglobin 13.6 g/dL (12.9-16.9); Immature Granulocytes % 0.4 % (0-4); Lymphocytes # 1.6 K/mcL (0.6-4.6); Lymphocytes % 18.3 %; Mean Corpuscular HGB Conc 33.7 g/dL (31.6-35.5); Mean Corpuscular Hemoglobin 28.5 pg (28.0-33.3); Mean Corpuscular Volume 84.7 fL (83.0-100.0); Mean Platelet Volume 10.9 fL (9.4-12.4); Monocytes # 0.8 K/mcL (0.0-1.3); Monocytes % 9.6 %; Neutrophils # 5.6 K/mcL (1.6-8.9); Platelet Count 183 K/mcL (140-400); Red Blood Count 4.77 M/mcL (4.19-5.50); Red Cell Distribution Width 15.9 % (11.5-14.5)
[2017-06-29 02:06] LABS: BUN/Creatinine Ratio 23 (6-26); Blood Urea Nitrogen 27 mg/dL (8-23); Calcium 9.7 mg/dL (8.6-10.3); Carbon Dioxide 25 mEq/L (23-29); Chloride 104 mEq/L (98-107); Glucose 111 mg/dL (70-105); Magnesium 2.1 mg/dL (1.6-2.6); Osmolality,Calculated 296 (280-300); Potassium 3.5 mEq/L (3.5-5.1); Sodium 140 mEq/L (136-145); eGFR For African Americans > 60 (> 60); eGFR For Non-African Americans 59 (> 60)
[2017-06-29] MEDS: Acetaminophen 325 MG TABLET PO PRN ×2 (03:14→15:33)
[2017-06-29] MEDS: *HR* Enoxaparin 40 MG/0.4 ML SYRINGE SQ SCH (06:50)
[2017-06-29] MEDS: Aspirin Enteric Coated 81 MG Tablet PO SCH (08:53)
[2017-06-29] MEDS: *HR* Ticagrelor 90 MG TABLET PO SCH (08:53)
[2017-06-29] MEDS: Isosorbide MONOnitrate (24 HR) 60 MG TAB.ER.24H PO SCH (08:53)
[2017-06-29] MEDS: Furosemide 40 MG/4 ML VIAL IVP SCH (08:54)
[2017-06-29] MEDS: Insulin LISPRO 300 UNITS/3 ML VIAL SQ SCH ×2 (08:57→12:00)
[2017-06-29 11:51] VITALS: BP 107/58
--- NOTE | 2017-06-29 13:16 | Discharge Summary ---
- NOTES TO OUTPATIENT PROVIDER Notes to Outpatient Provider: Recurrent admission for CHF Date of Encounter: 06/29/17 Time of Encounter: 13:14 - Discharge Diagnosis (1) Acute on chronic systolic (congestive) heart failure Priority: Primary Status: Acute (2) Chest pain Priority: Primary Status: Acute Qualifiers: Chest pain type: precordial pain Qualified Code(s): R07.2 - Precordial pain (3) CAD (coronary artery disease) Priority: Secondary Status: Chronic Qualifiers: Coronary Disease-Associated Artery/Lesion type: bypass graft [place] vs. transplanted heart: [place] heart Associated angina: with stable angina Qualified Code(s): I25.708 - Atherosclerosis of coronary artery bypass graft(s) , unspecified, with other forms of angina pectoris (4) DM2 (diabetes mellitus, type 2) Priority: Secondary Status: Chronic Qualifiers: Diabetes mellitus retirement insulin use: without intermediate card tender use Diabetes mellitus complication status: with circulatory complication Diabetes mellitus complication detail: with other circulatory complications Qualified Code(s): E11.59 - Type 2 diabetes mellitus with other circulatory complications (5) HTN (hypertension) Priority: Secondary Status: Chronic Qualifiers: Hypertension type: essential hypertension Qualified Code(s): I10 - Essential (primary) hypertension (6) Pacemaker Priority: Secondary Status: Chronic (7) Hypothyroidism Priority: Secondary Status: Chronic Qualifiers: Hypothyroidism type: unspecified Qualified Code(s): E03.9 - Hypothyroidism , unspecified (8) Paroxysmal a-fib Priority: Secondary Status: Chronic Hospital course: Mr. Pizarro is a 76 year old male with multiple recurrent hospitalizations with similar complaints of chest pain and exertional dyspnea. He has multiple medical problems including CHF and CAD, with questionable medical compliance. He was treated for acute CHF with iV diuresis and responded well. social services analyst has seen him, attempts were made to have him placed at ECF per PT/OT recommendations, but patient and continue to deny placement, as in the past, he is stable for discharge home. Discharge discussed with: patient - Time Spent with Patient Total time spent providing and/or coordinating discharge services: Greater than 30 minutes (40 min) - Discharge Medications Home Medications: Omeprazole [PriLOSEC] 20 mg PO BIDAC #60 11/04/16 [Rx] Ascorbate Calcium [Vitamin C] 500 mg PO DAILY 11/14/16 [History] Cyanocobalamin (Vitamin B-12) [Vitamin B12] 1,000 mcg PO DAILY 11/14/16 [History ] Multivitamin [One Daily Essential] 1 tab PO DAILY 11/14/16 [History] Aspirin Enteric Coated [Aspirin EC] 81 mg PO DAILY #30 tablet.dr 12/24/16 [Rx] Atorvastatin [Lipitor] 40 mg PO HS #30 tablet 12/24/16 [Rx] Carvedilol [Coreg] 3.125 mg PO BIDWM 30 Days tab 12/24/16 [Rx] Isosorbide MONOnitrate (24 HR) [Imdur] 120 mg PO DAILY #30 tab 12/24/16 [Rx] Lisinopril [Zestril] 2.5 mg PO DAILY #30 tab 12/24/16 [Rx] Tamsulosin [Flomax] 0.4 mg PO DAILY #30 capsule 12/24/16 [Rx] Ticagrelor [Brilinta] 90 mg PO BID 30 Days tab 12/24/16 [Rx] metFORMIN [Glucophage] 500 mg PO BID #60 tablet 12/24/16 [Rx] Docusate [Colace] 100 mg PO BID PRN #30 capsule 03/05/17 [Rx] Potassium Chloride [K-Tab ER] 10 meq PO DAILY #30 tablet.er 05/11/17 [Rx] Furosemide [Lasix] 40 mg PO BIDDIURETIC #60 tablet 05/26/17 [Rx] Nitroglycerin [Nitrostat] 0.4 mg SL Q5M PRN #30 tab.subl 05/26/17 [Rx] Allergies/Adverse Reactions: 3 Allergy/AdvReac Type Severity Reaction Status Date / Time Oxycodone [From Percocet] Allergy Hives Verified 05/09/17 06:53 tramadol Allergy Hives Verified 05/09/17 06:53 Date of admission: 06/27/17 04:48 Primary care physician: Lance Cronin MD Discharging clinician: Simran Lerma Anticipated date of discharge: 06/29/17 - Constitutional Vitals: Temp Pulse Resp BP Pulse Ox 98.2 F 72 16 107/58 96 06/29/17 10:55 06/29/17 10:55 06/29/17 10:55 06/29/17 10:55 06/29/17 10:55 General appearance: Present: A&O X 3, answers questions appropriately - Respiratory Respiratory exam: Present: CTAB. Absent: accessory muscle use, rales, rhonchi, wheezes - Patient Status Disposition: Home Health Service Condition: Fair Functional capacity at discharge: uses cane/walker Overall status at discharge: patient is progressing back to baseline - Discharge Instructions Follow Up With: Lance Cronin MD [Primary Care Provider] - Additional Instructions: F/up with PCP in 1-2 weeks Follow-up appointments: If there is not an appointment listed below, please call your physician and schedule a follow-up appointment. If you have congestive heart failure and your symptoms return, make an appointment with your physician. Medication List: Carry an up to date list of medications you are taking at all time. We have given you an updated medication list including any new medications that you have been prescribed. Please provide that list to your primary provider Symptoms: If your condition changes or you experience any of the following symptoms, notify your physician immediately: Unusual or worsening pain, fever, persistent nausea and vomiting, bleeding, increase in swelling (especially in your legs), sudden weight gain, extreme dizziness, chest pain, increased drainage or redness from a wound or incision. Go to the emergency department if you experience a problem with breathing. Weights: If you have a history of swelling or shortness of breath, weigh yourself daily and notify your physician if you have a weight gain of two or more pounds in one day or 5 or more pounds in a week. If you experience any of the warning signs for stroke: Sudden numbness or weakness of the face, arm or leg; especially on one side of the body, sudden confusion, trouble speaking or understanding, sudden trouble seeing in one or both eyes, sudden trouble walking, dizziness, loss of balance or coordination, sudden sever headache with no cause; Call 911 or go to the emergency room. Stroke is a medical emergency. Some risk factors for stroke: Age, cigarette smoking, diabetes, excessive alcohol consumption, family history , high blood pressure, overweight, physical inactivity, prior stroke, heart attack, diagnosis of carotid artery stenosis or other artery disease. If you smoke, STOP: Smoking or tobacco use significantly increases your risk of heart and lung disease. Your chance of disease greatly increases if you continue to smoke. For more information, call the [place] tobacco quit line for smoking cessation - QUIT-NOW ( ) - Diet and Activity Activity: as per physical therapy Diet: diabetic diet, low fat, low cholesterol, low salt diet (fluid restriction to 1.2L/day)
--- NOTE | 2017-06-29 13:33 | Physician Discharge Referral ---
Home Health/Hosp Referral Info Transfer to: Home Health Attending Provider: Simran Lerma Provider in Charge Post Discharge: PCP - Diagnosis (1) Acute on chronic systolic (congestive) heart failure Priority: Primary Status: Acute (2) Chest pain Priority: Primary Status: Acute (3) CAD (coronary artery disease) Priority: Secondary Status: Chronic (4) DM2 (diabetes mellitus, type 2) Priority: Secondary Status: Chronic (5) HTN (hypertension) Priority: Secondary Status: Chronic (6) Pacemaker Priority: Secondary Status: Chronic (7) Hypothyroidism Priority: Secondary Status: Chronic (8) Paroxysmal a-fib Priority: Secondary Status: Chronic - Respiratory Orders Smoking Cessation: Smoking cessation has been advised. For more information, call the [place] Tobacco Quit Line at 7-995-BCYF-NOW. - Diet/Nutrition Diet/Nutrition Orders: Cardiac, No Concentrated Sweets (diabetic) - Activity Activity Orders: Ambulate, Walker - Services Needed Following services are medically necessary services: Nursing, Physical Therapy, Occupational Therapy - Transfer Medications Home Medications: Omeprazole [PriLOSEC] 20 mg PO BIDAC #60 11/04/16 [Rx] Ascorbate Calcium [Vitamin C] 500 mg PO DAILY 11/14/16 [History] Cyanocobalamin (Vitamin B-12) [Vitamin B12] 1,000 mcg PO DAILY 11/14/16 [History ] Multivitamin [One Daily Essential] 1 tab PO DAILY 11/14/16 [History] Aspirin Enteric Coated [Aspirin EC] 81 mg PO DAILY #30 tablet. 12/24/16 [Rx] Atorvastatin [Lipitor] 40 mg PO HS #30 tablet 12/24/16 [Rx] Carvedilol [Coreg] 3.125 mg PO BIDWM 30 Days tab 12/24/16 [Rx] Isosorbide MONOnitrate (24 HR) [Imdur] 120 mg PO DAILY #30 tab 12/24/16 [Rx] Lisinopril [Zestril] 2.5 mg PO DAILY #30 tab 12/24/16 [Rx] Tamsulosin [Flomax] 0.4 mg PO DAILY #30 capsule 12/24/16 [Rx] Ticagrelor [Brilinta] 90 mg PO BID 30 Days tab 12/24/16 [Rx] metFORMIN [Glucophage] 500 mg PO BID #60 tablet 12/24/16 [Rx] Docusate [Colace] 100 mg PO BID PRN #30 capsule 03/05/17 [Rx] Potassium Chloride [K-Tab ER] 10 meq PO DAILY #30 tablet.er 05/11/17 [Rx] Furosemide [Lasix] 40 mg PO BIDDIURETIC #60 tablet 05/26/17 [Rx] Nitroglycerin [Nitrostat] 0.4 mg SL Q5M PRN #30 tab.subl 05/26/17 [Rx] Allergies/Adverse Reactions: 3 Allergy/AdvReac Type Severity Reaction Status Date / Time Oxycodone [From Percocet] Allergy Hives Verified 05/09/17 06:53 tramadol Allergy Hives Verified 05/09/17 06:53 Certification: Further, I certify that my clinical findings support that this patient is homebound (i.e. absences from home require considerable and taxing effort and are for medical reasons or hoahaoism services or infrequently or short duration when for other reasons) because: Homebound Reason: Patient requires assistance of a person or device to safely leave home, Leaving home requires considerable and taxing effort due to condition, Severity of cardiac or pulmonary status limits activity tolerance Attestation: My signature below is to certify that this patient is under my care and that I, or nurse practitioner, or a physician's seo assistant working with me, has a face-to -face encounter with this patient.
== END 2017-06-29 17:20 | disposition home health service (06) | DRG 293 ==
LOC: 2SOUTHHOLD 01:37 → EMEROO 01:37 → SUATTDRO 04:48 → 2SOUTHHOLD 05:16 → 3NENU 06-28 16:51
PROVIDERS: ADMIT Internal Medicine; ATTEND Internal Medicine

== ENCOUNTER 2017-07-23 01:51 | Inpatient (IN) ==
[2017-07-23 02:14] LABS: Bilirubin,Urine Negative (Negative); Blood,Urine Trace (Negative); Clarity,Urine Clear (Clear); Color,Urine Yellow (Yellow); Glucose,Urine (UA) Normal (Normal); Ketones,Urine Negative (Negative); Leukocyte Esterase,Urine Small (Negative); Nitrite,Urine Negative (Negative); PH,Urine 6.5 pH Units (5.0-8.0); Protein,Urine Negative (Neg-Trace); Specific Gravity,Urine 1.014 (1.010-1.025); Urobilinogen,Urine Normal (Normal)
[2017-07-23 02:17] LABS: Bacteria,Urine None Seen per hpf (None-Few); Hyaline Casts,Urine None Seen per lpf (None-Few); RBC,Urine 0-3 per hpf (0-3); Squamous Epithelial Cell,Urine None Seen per lpf (None-Few)
--- NOTE | 2017-07-23 02:25 | Emergency Department Note ---
Disposition Clinical Impression: Acute exacerbation of CHF (congestive heart failure) Disposition: Admitted As Inpatient Condition: Undetermined General Adult HPI - General Chief complaint: ED Shortness of Breath/Dyspnea Stated complaint: difficulty breathing Time Seen by Provider: 07/23/17 01:57 Source: patient, EMS Limitations: no limitations - History of Present Illness Pain Scale: 0 - Related Data Home Medications Medication Instructions Recorded Confirmed Ascorbate Calcium [Vitamin C] 500 mg PO DAILY 11/14/16 06/27/17 Cyanocobalamin (Vitamin B-12) 1,000 mcg PO DAILY 11/14/16 06/27/17 [Vitamin B12] Multivitamin [One Daily Essential] 1 tab PO DAILY 11/14/16 06/27/17 Previous Rx's Medication Instructions Recorded Omeprazole [PriLOSEC] 20 mg PO BIDAC #60 11/04/16 Aspirin Enteric Coated [Aspirin EC] 81 mg PO DAILY #30 tablet. 12/24/16 Atorvastatin [Lipitor] 40 mg PO HS #30 tablet 12/24/16 Carvedilol [Coreg] 3.125 mg PO BIDWM 30 Days tab 12/24/16 Isosorbide MONOnitrate (24 HR) 120 mg PO DAILY #30 tab 12/24/16 [Imdur] Lisinopril [Zestril] 2.5 mg PO DAILY #30 tab 12/24/16 Tamsulosin [Flomax] 0.4 mg PO DAILY #30 capsule 12/24/16 Ticagrelor [Brilinta] 90 mg PO BID 30 Days tab 12/24/16 metFORMIN [Glucophage] 500 mg PO BID #60 tablet 12/24/16 Docusate [Colace] 100 mg PO BID PRN #30 capsule 03/05/17 Potassium Chloride [K-Tab ER] 10 meq PO DAILY #30 tablet.er 05/11/17 Furosemide [Lasix] 40 mg PO BIDDIURETIC #60 tablet 05/26/17 Nitroglycerin [Nitrostat] 0.4 mg SL Q5M PRN #30 tab.subl 05/26/17 Allergies Allergy/AdvReac Type Severity Reaction Status Date / Time Oxycodone [From Percocet] Allergy Hives Verified 05/09/17 06:53 tramadol Allergy Hives Verified 05/09/17 06:53 Past Medical History - Past Medical History Medical history: Reports: asthma, atrial fibrillation, CHF, coronary artery disease, CVA, diabetes, hypertension, myocardial infarction, thyroid disease Surgical history: Reports: angioplasty/stent, cholecystectomy, coronary bypass ( CABG), pacemaker/AICD Psychiatric history: Reports: no psych history - Social History Smoking Status: Former smoker Smokeless Tobacco Status: No Alcohol use: Reports: none Drug use: Reports: none Physical Exam - General Limitations: no limitations General appearance: alert, in no apparent distress Course Vital Signs Temperature 98.1 F 07/23/17 01:54 Pulse Rate 76 07/23/17 01:54 Respiratory Rate 18 07/23/17 01:54 Blood Pressure 169/98 07/23/17 01:54 O2 Sat by Pulse Oximetry 96 07/23/17 01:54 Temperature 98.1 F 07/23/17 01:54 Pulse Rate 63 07/23/17 04:31 Respiratory Rate 18 07/23/17 04:31 Blood Pressure 145/91 07/23/17 04:31 O2 Sat by Pulse Oximetry 96 07/23/17 04:31 Oxygen Delivery Oxygen Delivery Room Air Medical Decision Making - Lab Data Result diagrams: 07/23/17 02:30 07/23/17 02:30 Lab Results 07/23/17 07/23/17 07/23/17 Range/Units 02:07 02:30 02:30 WBC 8.0 (4.3-11.1) K/mcL RBC 4.86 (4.19-5.50) M/mcL Hgb 13.8 (12.9-16.9) g/dL Hct 41.8 (37.5-50.1) % MCV 86.0 (83.0-100.0) fL MCH 28.4 (28.0-33.3) pg MCHC 33.0 (31.6-35.5) g/dL RDW 15.9 H (11.5-14.5) % Plt Count 188 (140-400) K/mcL MPV 10.2 (9.4-12.4) fL Immature Gran % 0.3 (0-4) % Seg Neutrophils % 69.6 % Lymphocytes % 16.8 % Monocytes % 8.5 % Eosinophils % 4.0 % Basophils % 0.8 % Neutrophils # 5.6 (1.6-8.9) K/mcL Lymphocytes # 1.3 (0.6-4.6) K/mcL Monocytes # 0.7 (0.0-1.3) K/mcL Eosinophils # 0.3 (0.0-0.6) K/mcL Basophils # 0.1 (0.0-0.2) K/mcL PT 13.2 H (9.4-12.1) Seconds INR 1.2 APTT 30.3 (26.0-36.0) Seconds Sodium (136-145) mEq/L Potassium (3.5-5.1) mEq/L Chloride (98-107) mEq/L Carbon Dioxide (23-29) mEq/L BUN (8-23) mg/dL Creatinine (0.70-1.30) mg/dL Est GFR ( Amer) (> 60) Est GFR (Non-Af Amer) (> 60) BUN/Creatinine Ratio (6-26) Glucose (70-105) mg/dL Calculated Osmolality (280-300) Lactic Acid (0.5-2.2) mmol/L Calcium (8.6-10.3) mg/dL Total Bilirubin (0.3-1.0) mg/dL Direct Bilirubin (0.0-0.2) mg/dL Indirect Bilirubin (0.0-1.2) mg/dL AST (13-39) Units/L ALT (7-52) Units/L Alkaline Phosphatase (34-104) Units/L Troponin I (< 0.04) ng/mL B-Natriuretic Peptide (Less than 100) pg/mL Serum Total Protein (6.4-8.9) g/dL Albumin (3.5-5.7) g/dL Globulin (2.4-3.5) g/dL Albumin/Globulin Ratio (1.1-2.2) Urine Color Yellow (Yellow) Urine Clarity Clear (Clear) Urine pH 6.5 (5.0-8.0) pH Units Ur Specific [place] 1.014 (1.010-1.025) Urine Protein Negative (Neg-Trace) mg/dL Urine Glucose (UA) Normal (Normal) mg/dL Urine Ketones Negative (Negative) mg/dL Urine Blood Trace H (Negative) Urine Nitrite Negative (Negative) Urine Bilirubin Negative (Negative) Urine Urobilinogen Normal (Normal) mg/dL Ur Leukocyte Esterase Small H (Negative) Urine Microscopic RBC 0-3 (0-3) per hpf Urine Microscopic WBC 5-15 H (0-3) per hpf Ur Squamous Epith Cells None Seen (None-Few) per lpf Urine Bacteria None Seen (None-Few) per hpf Hyaline Casts None Seen (None-Few) per lpf Ur Culture Indicated? YES A (NO) 07/23/17 07/23/17 07/23/17 Range/Units 02:30 02:30 02:30 WBC (4.3-11.1) K/mcL RBC (4.19-5.50) M/mcL Hgb (12.9-16.9) g/dL Hct (37.5-50.1) % MCV (83.0-100.0) fL MCH (28.0-33.3) pg MCHC (31.6-35.5) g/dL RDW (11.5-14.5) % Plt Count (140-400) K/mcL MPV (9.4-12.4) fL Immature Gran % (0-4) % Seg Neutrophils % % Lymphocytes % % Monocytes % % Eosinophils % % Basophils % % Neutrophils # (1.6-8.9) K/mcL Lymphocytes # (0.6-4.6) K/mcL Monocytes # (0.0-1.3) K/mcL Eosinophils # (0.0-0.6) K/mcL Basophils # (0.0-0.2) K/mcL PT (9.4-12.1) Seconds INR APTT (26.0-36.0) Seconds Sodium 139 (136-145) mEq/L Potassium 3.7 (3.5-5.1) mEq/L Chloride 106 (98-107) mEq/L Carbon Dioxide 23 (23-29) mEq/L BUN 27 H (8-23) mg/dL Creatinine 1.06 (0.70-1.30) mg/dL Est GFR ( Amer) > 60 (> 60) Est GFR (Non-Af Amer) > 60 (> 60) BUN/Creatinine Ratio 25 (6-26) Glucose 135 H (70-105) mg/dL Calculated Osmolality 295 (280-300) Lactic Acid 1.2 (0.5-2.2) mmol/L Calcium 9.7 (8.6-10.3) mg/dL Total Bilirubin 0.6 (0.3-1.0) mg/dL Direct Bilirubin 0.1 (0.0-0.2) mg/dL Indirect Bilirubin 0.5 (0.0-1.2) mg/dL AST 19 (13-39) Units/L ALT 18 (7-52) Units/L Alkaline Phosphatase 85 (34-104) Units/L Troponin I 0.03 (< 0.04) ng/mL B-Natriuretic Peptide 1112 H (Less than 100) pg/mL Serum Total Protein 7.7 (6.4-8.9) g/dL Albumin 4.4 (3.5-5.7) g/dL Globulin 3.3 (2.4-3.5) g/dL Albumin/Globulin Ratio 1.3 (1.1-2.2) Urine Color (Yellow) Urine Clarity (Clear) Urine pH (5.0-8.0) pH Units Ur Specific [place] (1.010-1.025) Urine Protein (Neg-Trace) mg/dL Urine Glucose (UA) (Normal) mg/dL Urine Ketones (Negative) mg/dL Urine Blood (Negative) Urine Nitrite (Negative) Urine Bilirubin (Negative) Urine Urobilinogen (Normal) mg/dL Ur Leukocyte Esterase (Negative) Urine Microscopic RBC (0-3) per hpf Urine Microscopic WBC (0-3) per hpf Ur Squamous Epith Cells (None-Few) per lpf Urine Bacteria (None-Few) per hpf Hyaline Casts (None-Few) per lpf Ur Culture Indicated? (NO) Attestation Statement - Attestation Attestation: I have personally performed a face to face evaluation on this patient. I have reviewed and agree with the care plan. History and Exam by me shows: Patient to ED with shortness of breath and orthopnea. Worsening today. Extensive cardiac history. Patient in no distress on examination. He has 1+ pedal edema that is pitting. Plan. CHF workup.
--- NOTE | 2017-07-23 02:29 | Emergency Department Note ---
Disposition Clinical Impression: Acute exacerbation of CHF (congestive heart failure) Qualifiers: Heart failure type: systolic Qualified Code(s): I50.23 - Acute on chronic systolic (congestive) heart failure Disposition: Admitted As Inpatient Condition: Undetermined Referrals: Lanec Cronin MD [Primary Care Provider] - Forms: ED Satisfaction Letter General Adult HPI - General Chief complaint: ED Shortness of Breath/Dyspnea Stated complaint: difficulty breathing Time Seen by Provider: 07/23/17 01:57 Source: patient, EMS Mode of arrival: EMS Limitations: no limitations Nursing Notes Reviewed: Yes Vital Signs Reviewed: Yes - History of Present Illness HPI Narrative: 76 year old male with an extensive cardiac history that includes STEMI, stents, Sys CHF, diabetes, hypertension, hyperlipidemia, hypothyroidism, chronic A. fib. Patient presents emergency department today with difficulty breathing for the last 2-3 days. He states it is hard to get breath all the way in, difficulty with ambulation, increased edema to his bilateral lower extremities, general malaise, general feelings of unwellness, nonproductive cough. Patient does not have any oxygen at home. Patient denies chest pain other than what he experiences normally. He denies fever and chills, nausea, vomiting, diarrhea, consultation. Patient has not been on steroids since he was admitted in June 2017. At the time of this discharged it was recommended for him to have home health services , patient states this was never set up and he has not had any home health assistance since discharge as last time. Onset (ago): day(s) Pain Scale: 0 Consistency: constant, Worsening Improves with: rest Worsens with: movement Treatments Prior to Arrival: none - Related Data Home Medications Medication Instructions Recorded Confirmed Ascorbate Calcium [Vitamin C] 500 mg PO DAILY 11/14/16 06/27/17 Cyanocobalamin (Vitamin B-12) 1,000 mcg PO DAILY 11/14/16 06/27/17 [Vitamin B12] Multivitamin [One Daily Essential] 1 tab PO DAILY 11/14/16 06/27/17 Previous Rx's Medication Instructions Recorded Omeprazole [PriLOSEC] 20 mg PO BIDAC #60 11/04/16 Aspirin Enteric Coated [Aspirin EC] 81 mg PO DAILY #30 tablet. 12/24/16 Atorvastatin [Lipitor] 40 mg PO HS #30 tablet 12/24/16 Carvedilol [Coreg] 3.125 mg PO BIDWM 30 Days tab 12/24/16 Isosorbide MONOnitrate (24 HR) 120 mg PO DAILY #30 tab 12/24/16 [Imdur] Lisinopril [Zestril] 2.5 mg PO DAILY #30 tab 12/24/16 Tamsulosin [Flomax] 0.4 mg PO DAILY #30 capsule 12/24/16 Ticagrelor [Brilinta] 90 mg PO BID 30 Days tab 12/24/16 metFORMIN [Glucophage] 500 mg PO BID #60 tablet 12/24/16 Docusate [Colace] 100 mg PO BID PRN #30 capsule 03/05/17 Potassium Chloride [K-Tab ER] 10 meq PO DAILY #30 tablet.er 05/11/17 Furosemide [Lasix] 40 mg PO BIDDIURETIC #60 tablet 05/26/17 Nitroglycerin [Nitrostat] 0.4 mg SL Q5M PRN #30 tab.subl 05/26/17 Allergies Allergy/AdvReac Type Severity Reaction Status Date / Time Oxycodone [From Percocet] Allergy Hives Verified 05/09/17 06:53 tramadol Allergy Hives Verified 05/09/17 06:53 All systems ED: reviewed and negative except as stated. Review of Systems: As Per HPI Past Medical History - Past Medical History Attestation: Yes The following information was validated with the patient. Source: patient, old records reviewed Medical history: Reports: asthma, atrial fibrillation, CHF, coronary artery disease, CVA, diabetes, hypertension, myocardial infarction, thyroid disease Surgical history: Reports: angioplasty/stent, cholecystectomy, coronary bypass ( CABG), pacemaker/AICD Psychiatric history: Reports: no psych history - Social History Smoking Status: Former smoker Smokeless Tobacco Status: No Alcohol use: Reports: none Drug use: Reports: none Physical Exam - General Limitations: no limitations General appearance: alert, in no apparent distress - Head Head exam: atraumatic, normocephalic, normal inspection - ENT ENT exam: mucous membranes moist - Neck Neck exam: Present: normal inspection, full ROM, trachea midline - Chest Chest inspection: Present: normal inspection, symmetric chest wall rise - Respiratory Respiratory exam: Present: normal lung sounds bilaterally, accessory muscle use - Cardiovascular Cardiovascular exam: Present: regular rate, normal rhythm, irregular rhythm, normal heart sounds, other (+1 pitting edema bilateral lower extremities) - Abdominal Exam Abdominal exam: Present: soft, Non-Tender, normal bowel sounds. Absent: tenderness, distention, guarding, rebound, rigidity - Extremities Exam Extremities exam: Present: normal inspection, full ROM. Absent: tenderness, pedal edema - Back Exam Back exam: Present: normal inspection, full ROM. Absent: tenderness - Neurological Exam Neurological exam: Present: alert, oriented X3 - Psychiatric Psychiatric exam: Present: normal affect, normal mood - Skin Skin exam: Present: warm, dry, intact, normal color Course Course Narrative: Chronically ill-appearing, nontoxic male, presents emergency department for respiratory distress. Patient's skin color ashen. Patient is using accessory muscles, respirations are shallow, lungs are clear to auscultate; heart rate regular, rate controlled, EKG with atrial pacing unchanged from previous, bilateral lower exterminate with +1 pitting edema; abdomen protuberant, soft, bowel sounds 4 quadrants. Patient well known to the facility, he does appear more ill than usual during initial presentation. Patient does have an extensive cardiac history, we will obtain labs, chest x-ray, plan for admission for difficulty breathing/hypoxia. Patient is agreeable to plan of care. He states it is difficult to manage while being at home. Patient requiring 2 L of oxygen at this time with an SPO2 of 97%, blood pressure, heart rate is stable for patient, afebrile. - Reevaluation(s) Reevaluation #1: Chest x-ray shows vascular congestion, clear lung carrero. BNP 1112, rest of laboratory values at baseline. We will give 20 mg of Lasix IV. Due to ashen color, presentation, difficulty breathing we will CT abdomen and pelvis for workup. Patient with a lengthy history of cardiac, pulmonary, abdominal diagnoses. Time: 03:20 Reevaluation #2: Patient has been accepted to inpatient services by the hospitalist. Denies further needs, no acute change assessment. Time: 03:33 Vital Signs Temperature 98.1 F 07/23/17 01:54 Pulse Rate 76 07/23/17 01:54 Respiratory Rate 18 07/23/17 01:54 Blood Pressure 169/98 07/23/17 01:54 O2 Sat by Pulse Oximetry 96 07/23/17 01:54 Temperature 98.1 F 07/23/17 01:54 Pulse Rate 78 07/23/17 03:03 Respiratory Rate 18 07/23/17 03:03 Blood Pressure 149/90 07/23/17 03:03 O2 Sat by Pulse Oximetry 97 07/23/17 03:03 Oxygen Delivery Oxygen Delivery Nasal Cannula Medical Decision Making - Medical Records Medical records reviewed: Yes I reviewed the patient's medical records. - Lab Data Lab results reviewed: Yes I reviewed the patient's lab results. Result diagrams: 07/23/17 02:30 07/23/17 02:30 Lab Results 07/23/17 07/23/17 07/23/17 Range/Units 02:07 02:30 02:30 WBC 8.0 (4.3-11.1) K/mcL RBC 4.86 (4.19-5.50) M/mcL Hgb 13.8 (12.9-16.9) g/dL Hct 41.8 (37.5-50.1) % MCV 86.0 (83.0-100.0) fL MCH 28.4 (28.0-33.3) pg MCHC 33.0 (31.6-35.5) g/dL RDW 15.9 H (11.5-14.5) % Plt Count 188 (140-400) K/mcL MPV 10.2 (9.4-12.4) fL Immature Gran % 0.3 (0-4) % Seg Neutrophils % 69.6 % Lymphocytes % 16.8 % Monocytes % 8.5 % Eosinophils % 4.0 % Basophils % 0.8 % Neutrophils # 5.6 (1.6-8.9) K/mcL Lymphocytes # 1.3 (0.6-4.6) K/mcL Monocytes # 0.7 (0.0-1.3) K/mcL Eosinophils # 0.3 (0.0-0.6) K/mcL Basophils # 0.1 (0.0-0.2) K/mcL PT 13.2 H (9.4-12.1) Seconds INR 1.2 APTT 30.3 (26.0-36.0) Seconds Sodium (136-145) mEq/L Potassium (3.5-5.1) mEq/L Chloride (98-107) mEq/L Carbon Dioxide (23-29) mEq/L BUN (8-23) mg/dL Creatinine (0.70-1.30) mg/dL Est GFR ( Amer) (> 60) Est GFR (Non-Af Amer) (> 60) BUN/Creatinine Ratio (6-26) Glucose (70-105) mg/dL Calculated Osmolality (280-300) Lactic Acid (0.5-2.2) mmol/L Calcium (8.6-10.3) mg/dL Total Bilirubin (0.3-1.0) mg/dL Direct Bilirubin (0.0-0.2) mg/dL Indirect Bilirubin (0.0-1.2) mg/dL AST (13-39) Units/L ALT (7-52) Units/L Alkaline Phosphatase (34-104) Units/L Troponin I (< 0.04) ng/mL B-Natriuretic Peptide (Less than 100) pg/mL Serum Total Protein (6.4-8.9) g/dL Albumin (3.5-5.7) g/dL Globulin (2.4-3.5) g/dL Albumin/Globulin Ratio (1.1-2.2) Urine Color Yellow (Yellow) Urine Clarity Clear (Clear) Urine pH 6.5 (5.0-8.0) pH Units Ur Specific [place] 1.014 (1.010-1.025) Urine Protein Negative (Neg-Trace) mg/dL Urine Glucose (UA) Normal (Normal) mg/dL Urine Ketones Negative (Negative) mg/dL Urine Blood Trace H (Negative) Urine Nitrite Negative (Negative) Urine Bilirubin Negative (Negative) Urine Urobilinogen Normal (Normal) mg/dL Ur Leukocyte Esterase Small H (Negative) Urine Microscopic RBC 0-3 (0-3) per hpf Urine Microscopic WBC 5-15 H (0-3) per hpf Ur Squamous Epith Cells None Seen (None-Few) per lpf Urine Bacteria None Seen (None-Few) per hpf Hyaline Casts None Seen (None-Few) per lpf Ur Culture Indicated? YES A (NO) 07/23/17 07/23/17 07/23/17 Range/Units 02:30 02:30 02:30 WBC (4.3-11.1) K/mcL RBC (4.19-5.50) M/mcL Hgb (12.9-16.9) g/dL Hct (37.5-50.1) % MCV (83.0-100.0) fL MCH (28.0-33.3) pg MCHC (31.6-35.5) g/dL RDW (11.5-14.5) % Plt Count (140-400) K/mcL MPV (9.4-12.4) fL Immature Gran % (0-4) % Seg Neutrophils % % Lymphocytes % % Monocytes % % Eosinophils % % Basophils % % Neutrophils # (1.6-8.9) K/mcL Lymphocytes # (0.6-4.6) K/mcL Monocytes # (0.0-1.3) K/mcL Eosinophils # (0.0-0.6) K/mcL Basophils # (0.0-0.2) K/mcL PT (9.4-12.1) Seconds INR APTT (26.0-36.0) Seconds Sodium 139 (136-145) mEq/L Potassium 3.7 (3.5-5.1) mEq/L Chloride 106 (98-107) mEq/L Carbon Dioxide 23 (23-29) mEq/L BUN 27 H (8-23) mg/dL Creatinine 1.06 (0.70-1.30) mg/dL Est GFR ( Amer) > 60 (> 60) Est GFR (Non-Af Amer) > 60 (> 60) BUN/Creatinine Ratio 25 (6-26) Glucose 135 H (70-105) mg/dL Calculated Osmolality 295 (280-300) Lactic Acid 1.2 (0.5-2.2) mmol/L Calcium 9.7 (8.6-10.3) mg/dL Total Bilirubin 0.6 (0.3-1.0) mg/dL Direct Bilirubin 0.1 (0.0-0.2) mg/dL Indirect Bilirubin 0.5 (0.0-1.2) mg/dL AST 19 (13-39) Units/L ALT 18 (7-52) Units/L Alkaline Phosphatase 85 (34-104) Units/L Troponin I 0.03 (< 0.04) ng/mL B-Natriuretic Peptide 1112 H (Less than 100) pg/mL Serum Total Protein 7.7 (6.4-8.9) g/dL Albumin 4.4 (3.5-5.7) g/dL Globulin 3.3 (2.4-3.5) g/dL Albumin/Globulin Ratio 1.3 (1.1-2.2) Urine Color (Yellow) Urine Clarity (Clear) Urine pH (5.0-8.0) pH Units Ur Specific [place] (1.010-1.025) Urine Protein (Neg-Trace) mg/dL Urine Glucose (UA) (Normal) mg/dL Urine Ketones (Negative) mg/dL Urine Blood (Negative) Urine Nitrite (Negative) Urine Bilirubin (Negative) Urine Urobilinogen (Normal) mg/dL Ur Leukocyte Esterase (Negative) Urine Microscopic RBC (0-3) per hpf Urine Microscopic WBC (0-3) per hpf Ur Squamous Epith Cells (None-Few) per lpf Urine Bacteria (None-Few) per hpf Hyaline Casts (None-Few) per lpf Ur Culture Indicated? (NO) - Radiology Data Radiology results reviewed: Yes I reviewed the patient's radiology results. Chest X-Ray 07/23/17 01:58 IMPRESSION: Mild interval increase in basilar atelectatic changes and small pleural effusions. Mild pulmonary vascular congestion. D/ / Mane Menendez MD / Mane Menendez MD Interpreting Provider: Mane Menendez MD - EKG Data EKG #1 EKG attestation: Yes I reviewed and interpreted this EKG. EKG results narrative: EKG reviewed, shows electrical epees, the paced compared to previous no change in axis, no change in tracing. Rate controlled at 66 bpm KS 149 ms, QRS 206 ms , unchanged from previous. No ST elevation, depression change from previous EKG. When compared to previous EKG there are: no significant changes Interpretation: unchanged when compared to prior tracing (date)
[2017-07-23 02:43] LABS: Basophils # 0.1 K/mcL (0.0-0.2); Basophils % 0.8 %; Eosinophils # 0.3 K/mcL (0.0-0.6); Hematocrit 41.8 % (37.5-50.1); Hemoglobin 13.8 g/dL (12.9-16.9); Immature Granulocytes % 0.3 % (0-4); Lymphocytes # 1.3 K/mcL (0.6-4.6); Lymphocytes % 16.8 %; Mean Corpuscular Hemoglobin 28.4 pg (28.0-33.3); Mean Platelet Volume 10.2 fL (9.4-12.4); Monocytes # 0.7 K/mcL (0.0-1.3); Monocytes % 8.5 %; Neutrophils # 5.6 K/mcL (1.6-8.9); Platelet Count 188 K/mcL (140-400); Red Blood Count 4.86 M/mcL (4.19-5.50); Red Cell Distribution Width 15.9 % (11.5-14.5); Segmented Neutrophils % 69.6 %
[2017-07-23 02:53] LABS: INR 1.2; Prothrombin Time 13.2 Seconds (9.4-12.1)
[2017-07-23 02:56] LABS: Activated Partial Thrombo Time 30.3 Seconds (26.0-36.0)
[2017-07-23 03:08] LABS: Alanine Aminotransferase 18 Units/L (7-52); Albumin 4.4 g/dL (3.5-5.7); Albumin/Globulin Ratio 1.3 (1.1-2.2); Alkaline Phosphatase 85 Units/L (34-104); Aspartate Amino Transferase 19 Units/L (13-39); BUN/Creatinine Ratio 25 (6-26); Bilirubin,Direct 0.1 mg/dL (0.0-0.2); Bilirubin,Indirect 0.5 mg/dL (0.0-1.2); Bilirubin,Total 0.6 mg/dL (0.3-1.0); Blood Urea Nitrogen 27 mg/dL (8-23); Calcium 9.7 mg/dL (8.6-10.3); Carbon Dioxide 23 mEq/L (23-29); Chloride 106 mEq/L (98-107); Globulin 3.3 g/dL (2.4-3.5); Glucose 135 mg/dL (70-105); Osmolality,Calculated 295 (280-300); Potassium 3.7 mEq/L (3.5-5.1); Sodium 139 mEq/L (136-145); Total Protein 7.7 g/dL (6.4-8.9); Troponin I 0.03 ng/mL (< 0.04); eGFR For African Americans > 60 (> 60); eGFR For Non-African Americans > 60 (> 60)
[2017-07-23] MEDS ORDERED: Furosemide 20 MG/2 ML VIAL IVP ONE (03:29)
--- NOTE | 2017-07-23 03:45 | Internal Med History&Physical ---
Date of Encounter: 07/23/17 Time of Encounter: 03:39 Internal Medicine - H&P: HPI Chief complaint: shortness of breath Admitted From: Emergency Dept Plans for Post Hospital Care: Home History of present illness: Mr. Pizarro is a 76 year old male well known to the hospitalist service and the cardiology service with a PMHx of CAD s/p CABG and PCI, CVA, A fib, Systolic CHF with LVEF 40 %, s/p Pacemaker/AICD, DM, HTN, asthma, thyroid disease who presented to ER with c/o shortness of breath. The patient has had many admissions in the past for cardiac issues and has refused placement into nursing facility. His compliance is questionable. He is not a great historian but states that he is having a hard time breating for a couple of days. He has had increased LE edema. He also complains of epigastric abdominal pain with no radiation. Onset of start is vague. He says he has had it for sometime but is now worse. CXR showed mild vascular congestion and small pleural effusion. Labs showed BNP above baseline. Given 20 mg IV lasix in the ED. He was hemodynamically stable but requiring 2 L O2. The patient based on previous notes should be on 2 L O2 but says he was never set up with it. He also says he was supposed to get set up with home nursing or home health and never got that set up either. on chronically. Denies fever, chills, nausea, vomiting, diarrhea , constipation, urinary symptoms, or neurological symptoms. The patient has chronic chest pain with extensive work up in the past. Trops and EKG are unremarkable. Past Med Surg Social Fam HX - Past Medical History Medical history: asthma, atrial fibrillation, CHF, coronary artery disease, CVA , diabetes, hypertension, myocardial infarction, thyroid disease Psychiatric history: no psych history - Past Surgical History Surgical History: angioplasty/stent, cholecystectomy, coronary bypass (CABG), pacemaker/AICD - Social History Smoking Status: Former smoker Smokeless Tobacco Status: No Alcohol use: none Drug use: none - Family History Grandfather Family Member Ethnicity: Non- Living Status: Hx Family Cardiac Disorders: Yes ([place]) Mother Family Member Ethnicity: Non- Living Status: Hx Family Neurologic Disorders: Yes (CVA) Father Adopted: No Family Member Ethnicity: Non- Living Status: Hx Family Cardiac Disorders: No Hx Family Respiratory Disorders: No Hx Family Cancer: Yes (Unknown what type) Hx Family GI Disorders: No Hx Family Endocrine Disorder: No Hx Family Neuromuscular Disorders: No Hx Family Neurologic Disorders: No Hx Family HEENT Disorders: No Hx Family Autoimmune Disorders: No Internal Medicine - H&P: Meds Omeprazole [PriLOSEC] 20 mg PO BIDAC #60 11/04/16 [Rx] Ascorbate Calcium [Vitamin C] 500 mg PO DAILY 11/14/16 [History] Cyanocobalamin (Vitamin B-12) [Vitamin B12] 1,000 mcg PO DAILY 11/14/16 [History ] Multivitamin [One Daily Essential] 1 tab PO DAILY 11/14/16 [History] Aspirin Enteric Coated [Aspirin EC] 81 mg PO DAILY #30 tablet.dr 12/24/16 [Rx] Atorvastatin [Lipitor] 40 mg PO HS #30 tablet 12/24/16 [Rx] Carvedilol [Coreg] 3.125 mg PO BIDWM 30 Days tab 12/24/16 [Rx] Isosorbide MONOnitrate (24 HR) [Imdur] 120 mg PO DAILY #30 tab 12/24/16 [Rx] Lisinopril [Zestril] 2.5 mg PO DAILY #30 tab 12/24/16 [Rx] Tamsulosin [Flomax] 0.4 mg PO DAILY #30 capsule 12/24/16 [Rx] Ticagrelor [Brilinta] 90 mg PO BID 30 Days tab 12/24/16 [Rx] metFORMIN [Glucophage] 500 mg PO BID #60 tablet 12/24/16 [Rx] Docusate [Colace] 100 mg PO BID PRN #30 capsule 03/05/17 [Rx] Potassium Chloride [K-Tab ER] 10 meq PO DAILY #30 tablet.er 05/11/17 [Rx] Furosemide [Lasix] 40 mg PO BIDDIURETIC #60 tablet 05/26/17 [Rx] Nitroglycerin [Nitrostat] 0.4 mg SL Q5M PRN #30 tab.subl 05/26/17 [Rx] 3 Allergy/AdvReac Type Severity Reaction Status Date / Time Oxycodone [From Percocet] Allergy Hives Verified 05/09/17 06:53 tramadol Allergy Hives Verified 05/09/17 06:53 All Systems PM: A 10-system review of systems was performed and is negative for pertinent findings except as documented above in the HPI. Review of systems: All systems reviewed are negative except for as mentioned above - Constitutional Vitals: Temp Pulse Resp BP Pulse Ox 98.1 F 78 18 149/90 97 07/23/17 01:54 07/23/17 03:03 07/23/17 03:03 07/23/17 03:03 07/23/17 03:03 Exam: GEN: NAD HEENT: AT, NC, No cyanosis, oral mucosa is moist, No JVD Lymphatics: No lymphadenoapthy Eyes: Extrocular muscles intact, anicteric CVS:RRR. S1, S2, No m/r/g RESP: Bibasilar crackles ABD: Soft, NT, mild epigastric tenderness, +BS EXT: 1+ lower extremity edema, No rashes, 2+ DP NEURO: Nonfocal, CN II-XII intact, No focal motor or sensory deficits Psych: Cooperative, Not anxious or depressed Internal Med - H&P Results - Labs CBC & Chem 7: 07/23/17 02:30 07/23/17 02:30 Labs: Short CBC 07/23/17 Range/Units 02:30 WBC 8.0 (4.3-11.1) K/mcL Hgb 13.8 (12.9-16.9) g/dL Hct 41.8 (37.5-50.1) % Plt Count 188 (140-400) K/mcL Neutrophils # 5.6 (1.6-8.9) K/mcL BMP 07/23/17 02:30 Sodium 139 Potassium 3.7 Chloride 106 Carbon Dioxide 23 BUN 27 H Creatinine 1.06 Glucose 135 H Calcium 9.7 Cardiac Enzymes 07/23/17 Range/Units 02:30 Troponin I 0.03 (< 0.04) ng/mL Liver Function 07/23/17 Range/Units 02:30 Total Bilirubin 0.6 (0.3-1.0) mg/dL Direct Bilirubin 0.1 (0.0-0.2) mg/dL AST 19 (13-39) Units/L ALT 18 (7-52) Units/L Alkaline Phosphatase 85 (34-104) Units/L Albumin 4.4 (3.5-5.7) g/dL Urine 07/23/17 Range/Units 02:07 Urine Color Yellow (Yellow) Urine Clarity Clear (Clear) Urine pH 6.5 (5.0-8.0) pH Units Ur Specific [place] 1.014 (1.010-1.025) Urine Protein Negative (Neg-Trace) mg/dL Urine Glucose (UA) Normal (Normal) mg/dL - Impressions ITS Impressions Chest X-Ray 07/23/17 01:58 IMPRESSION: Mild interval increase in basilar atelectatic changes and small pleural effusions. Mild pulmonary vascular congestion. D/ / Mane Menendez MD / Mane Menendez MD Interpreting Provider: Mane Menendez MD - Assessment and plan (1) Acute on chronic systolic (congestive) heart failure Current Visit: No Status: Acute Assessment and plan: Questionable compliance. The patient does not know much Lasix he is on. Will start IV Lasix 40 mg twice a day. Patient usually comes in and gets diuresed for a day or so and ends up discharged after that. Resume cardiac meds. Cardiac diet. (2) Abdominal pain Current Visit: No Status: Acute Assessment and plan: Patient reports abdominal pain. He has mild tenderness in the epigastric area. CT abd/pelvis pending ordered in ED. LFTs are normal. Conservative management. Qualifiers: Abdominal location: generalized Qualified Code(s): R10.84 - Generalized abdominal pain (3) Physical deconditioning Current Visit: No Status: Acute Assessment and plan: The patient is very lethargic. He is a little more lethargic than when I saw him last time. Patient would benefit from placement. He has refused that in the past. He needs to be at least set up with home health which was supposed to be the case from previous discharges however he tells me that it was not set up and currently gets no help. When he PTOT and case management to see him. (4) CAD (coronary artery disease) Current Visit: No Status: Chronic Assessment and plan: Resume cardiac meds once verified. Qualifiers: Coronary Disease-Associated Artery/Lesion type: bypass graft [place] vs. transplanted heart: [place] heart Associated angina: with stable angina Qualified Code(s): I25.708 - Atherosclerosis of coronary artery bypass graft(s) , unspecified, with other forms of angina pectoris (5) HTN (hypertension) Current Visit: No Status: Chronic Assessment and plan: Resume antihypertensives. Qualifiers: Hypertension type: essential hypertension Qualified Code(s): I10 - Essential (primary) hypertension (6) DVT prophylaxis Current Visit: No Status: Acute Assessment and plan: Heparin subcutaneous - Time Spent With Patient Total time spent is greater than 50% in coordination of care (as documented) at patient's floor/unit and/or counseling patient:
[2017-07-23] MEDS ORDERED: Ipratropium/Albuterol Neb 3 ML IH PRN (03:46)
[2017-07-23] MEDS ORDERED: D5% in Water 1,000 ML IVC PRN (03:46)
[2017-07-23] MEDS ORDERED: Dextrose Gel 15 GM/37.5 ML TUBE PO PRN ×2 (03:46)
[2017-07-23] MEDS ORDERED: *HR* Dextrose 50 % in Water (Syg) 50 ML SYRINGE IVP PRN (03:46)
[2017-07-23] MEDS ORDERED: Naloxone 0.4 MG/ML INJ IVP PRN (03:47)
[2017-07-23 05:17] LABS: VBG HCO3 30 mEq/L (21-27); VBG PCO2 53 mmHg (41-51); VBG PH 7.36 pH Units (7.32-7.42); VBG PO2 36 mmHg (25-50)
[2017-07-23] MEDS: *HR* Heparin 5,000 UNIT/ML VIAL SQ SCH ×3 (06:45→23:17)
[2017-07-23] MEDS: Insulin LISPRO 300 UNITS/3 ML VIAL SQ SCH ×4 (08:00→23:17)
[2017-07-23] MEDS: Furosemide 40 MG/4 ML VIAL IVP SCH ×2 (08:01→23:16)
[2017-07-23] MEDS: cefTRIAXone 1,000 MG in Water for inj. (sterile) 20 ML 10 ML IVP SCH (10:31)
--- NOTE | 2017-07-23 13:01 | Internal Med Progress Note ---
<Jordan Chairez - Last Filed: 07/23/17 12:59> Date of Encounter: 07/23/17 Time of Encounter: 11:00 - Assessment and plan (1) Acute on chronic systolic (congestive) heart failure Current Visit: No Status: Acute Assessment and plan: Questionable compliance. Continue IV Lasix 40 mg twice a day. Patient usually comes in and gets diuresed for a day or so and ends up discharged after that. Resume cardiac meds. Cardiac diet. (2) CAD (coronary artery disease) Current Visit: No Status: Chronic Assessment and plan: Resume cardiac meds once verified. Qualifiers: Coronary Disease-Associated Artery/Lesion type: bypass graft [place] vs. transplanted heart: [place] heart Associated angina: with stable angina Qualified Code(s): I25.708 - Atherosclerosis of coronary artery bypass graft(s) , unspecified, with other forms of angina pectoris (3) HTN (hypertension) Current Visit: No Status: Chronic Assessment and plan: Resume antihypertensives. Qualifiers: Hypertension type: essential hypertension Qualified Code(s): I10 - Essential (primary) hypertension (4) DVT prophylaxis Current Visit: No Status: Acute Assessment and plan: Heparin subcutaneous (5) Abdominal pain Current Visit: No Status: Acute Assessment and plan: Patient reports abdominal pain. He has mild tenderness in the epigastric area. CT abd/pelvis pending ordered in ED. LFTs are normal. Conservative management. Qualifiers: Abdominal location: generalized Qualified Code(s): R10.84 - Generalized abdominal pain (6) Physical deconditioning Current Visit: No Status: Acute Assessment and plan: The patient is very lethargic. He is a little more lethargic than when I saw him last time. Patient would benefit from placement. He has refused that in the past. He needs to be at least set up with home health which was supposed to be the case from previous discharges however he tells me that it was not set up and currently gets no help. When he PTOT and case management to see him. (7) UTI (urinary tract infection) Current Visit: Yes Status: Acute Assessment and plan: UA+, currently pending UCx. Patient is a well known patient to hospitalist service. Has recurrent UTIs Start on Rocephin and de-escalate pending Urine culture and sensitivities. Qualifiers: Qualified Code(s): N39.0 - Urinary tract infection, site not specified - Time Spent With Patient Total time spent is greater than 50% in coordination of care (as documented) at patient's floor/unit and/or counseling patient: - Subjective Interval history: Patient reports improvement of SOB. Denies CP. Continues to have complaints of BL lower extremity swelling. Reports that he is compliant with all of his medications. Tolerating PO intake. Voiding without difficulty. Denies f/c/n/v. Denies dysuria. No further acute complaints. - Constitutional Vitals: Temp Pulse Resp BP Pulse Ox 97.5 F L 67 18 151/86 97 07/23/17 07:36 07/23/17 12:00 07/23/17 12:00 07/23/17 12:00 07/23/17 12:00 - Head Head exam: Present: atraumatic, normocephalic - Eye Eye exam: Present: PERRL, conjuntiva pink, sclera anicteric Pupils: Present: PERRL - Neck Neck exam general surgery: Present: supple, trachea midline. Absent: lymphadenopathy - Respiratory Respiratory exam: Present: wheezes. Absent: accessory muscle use, rales, rhonchi - Cardiovascular Cardiovascular exam: Present: RRR, +S1, +S2. Absent: diastolic murmur, gallop, rubs, systolic murmur - GI/Abdominal GI/Abdominal exam: Present: normal bowel sounds, soft, no peritoneal signs. Absent: distended, tenderness - Extremities Exam Extremities exam: Present: warm, radial pulses palpable and symmetrical. Absent : calf tenderness, cyanotic, pedal edema - Neurological Exam Neurological exam: Present: alert, oriented X3, no focal deficits. Absent: pronater drift, facial droop, speech deficit - Skin Skin exam: Present: dry, intact Internal Medicine: Result - Labs CBC & Chem 7: 07/23/17 02:30 07/23/17 02:30 - ABG Interpretation ABG results: PT/INR, D-dimer PT 13.2 Seconds (9.4-12.1) H 07/23/17 02:30 Consult Discharge Plan - Plan Referrals: Lance Cronin MD [Primary Care Provider] - <Atul Gardner - Last Filed: 07/23/17 14:35> Date of Encounter: 07/23/17 - Assessment and plan (1) CAD (coronary artery disease) Current Visit: No Status: Chronic Qualifiers: Coronary Disease-Associated Artery/Lesion type: bypass graft [place] vs. transplanted heart: [place] heart Associated angina: with stable angina Qualified Code(s): I25.708 - Atherosclerosis of coronary artery bypass graft(s) , unspecified, with other forms of angina pectoris (2) HTN (hypertension) Current Visit: No Status: Chronic Qualifiers: Hypertension type: essential hypertension Qualified Code(s): I10 - Essential (primary) hypertension (3) DVT prophylaxis Current Visit: No Status: Acute (4) Abdominal pain Current Visit: No Status: Acute Qualifiers: Abdominal location: generalized Qualified Code(s): R10.84 - Generalized abdominal pain (5) Physical deconditioning Current Visit: No Status: Acute (6) Acute on chronic systolic (congestive) heart failure Current Visit: No Status: Acute (7) UTI (urinary tract infection) Current Visit: Yes Status: Acute Qualifiers: Qualified Code(s): N39.0 - Urinary tract infection, site not specified - Time Spent With Patient Total time spent is greater than 50% in coordination of care (as documented) at patient's floor/unit and/or counseling patient: - Constitutional Vitals: Temp Pulse Resp BP Pulse Ox 97.5 F L 67 18 151/86 97 07/23/17 07:36 07/23/17 12:00 07/23/17 12:00 07/23/17 12:00 07/23/17 12:00 Internal Medicine: Result - Labs CBC & Chem 7: 07/23/17 02:30 07/23/17 02:30 - ABG Interpretation ABG results: PT/INR, D-dimer PT 13.2 Seconds (9.4-12.1) H 07/23/17 02:30 - Attending Attestation I saw at the bedside and examined this patient on 07/23/17 and my medical decision -making was reviewed with the Resident Physician. I agree with the documented findings, disposition and treatment plan as described except to the extent set forth below.
[2017-07-23] MEDS: Acetaminophen 325 MG TABLET PO PRN ×2 (15:21→23:28)
[2017-07-24 06:26] LABS: BUN/Creatinine Ratio 24 (6-26); Blood Urea Nitrogen 27 mg/dL (8-23); Calcium 9.7 mg/dL (8.6-10.3); Carbon Dioxide 27 mEq/L (23-29); Chloride 104 mEq/L (98-107); Glucose 109 mg/dL (70-105); Osmolality,Calculated 298 (280-300); Potassium 3.7 mEq/L (3.5-5.1); Sodium 141 mEq/L (136-145); eGFR For African Americans > 60 (> 60); eGFR For Non-African Americans > 60 (> 60)
[2017-07-24] MEDS: *HR* Heparin 5,000 UNIT/ML VIAL SQ SCH ×3 (06:52→23:02)
[2017-07-24] MEDS: Acetaminophen 325 MG TABLET PO PRN (06:57)
[2017-07-24] MEDS: Insulin LISPRO 300 UNITS/3 ML VIAL SQ SCH ×4 (08:31→22:58)
[2017-07-24] MEDS: Furosemide 40 MG/4 ML VIAL IVP SCH (09:39)
[2017-07-24] MEDS: cefTRIAXone 1,000 MG in Water for inj. (sterile) 20 ML 10 ML IVP SCH (09:44)
[2017-07-24] MEDS ORDERED: Nitroglycerin 0.4 MG TAB.SUBL SL PRN (10:03)
--- NOTE | 2017-07-24 10:10 | Internal Med Progress Note ---
Addendum entered and electronically signed by Jordan Chairez DO 07/24/17 16:47: Clean urine catch negative. discontinue antibiotics. Original Note: <Jordan Chairez - Last Filed: 07/24/17 15:35> Date of Encounter: 07/24/17 Time of Encounter: 10:20 - Assessment and plan (1) Acute on chronic systolic (congestive) heart failure Current Visit: No Status: Acute Assessment and plan: Questionable compliance. Continue IV Lasix 40 mg twice a day. -2870ml balance. Patient usually comes in and gets diuresed for a day or so and ends up discharged after that. Resume cardiac meds. Cardiac diet. (2) CAD (coronary artery disease) Current Visit: No Status: Chronic Assessment and plan: Resume cardiac meds once verified. Qualifiers: Coronary Disease-Associated Artery/Lesion type: bypass graft [place] vs. transplanted heart: [place] heart Associated angina: with stable angina Qualified Code(s): I25.708 - Atherosclerosis of coronary artery bypass graft(s) , unspecified, with other forms of angina pectoris (3) HTN (hypertension) Current Visit: No Status: Chronic Assessment and plan: Resume antihypertensives. Qualifiers: Hypertension type: essential hypertension Qualified Code(s): I10 - Essential (primary) hypertension (4) DVT prophylaxis Current Visit: No Status: Acute Assessment and plan: Heparin subcutaneous (5) Abdominal pain Current Visit: No Status: Acute Assessment and plan: Worsening RUQ abdominal pain noted. Stat Lipase, lactic acid. Patient reports normal bowel movement this am, and normal appetite. Passing gas. Qualifiers: Abdominal location: generalized Qualified Code(s): R10.84 - Generalized abdominal pain (6) Physical deconditioning Current Visit: No Status: Acute Assessment and plan: The patient is very lethargic. Patient would benefit from placement. He has refused that in the past. He needs set up with home health which was supposed to be the case from previous discharges however he tells me that it was not set up and currently gets no help. Will start process when patient ready for discharge. (7) Pneumonia Current Visit: Yes Status: Acute Assessment and plan: Clearn urine catch + Strep. pnuemoniae antigen. Continue with Rocephin day #2. Discontinue other antibiotics. Resume home medications. Patient had episodes of hypotension 70s/50s after infusion of home medications. Reported left sided weakness. Improved with 1 bolus IVF. Currently stable. Stat lactic acid, lipase ordered. Qualifiers: Qualified Code(s): J18.9 - Pneumonia, unspecified organism - Time Spent With Patient Total time spent is greater than 50% in coordination of care (as documented) at patient's floor/unit and/or counseling patient: Greater than 35 minutes - Subjective Interval history: Patient reports SOB is the same. He is currently on 2.5L NC. Does not have oxygen at home. Ambulating without difficulty. Does report left lower extremity numbness, but no weakness this morning. Denies CP. RLQ bdominal pain the the same. He reports that he had cholecystectomy in the past. Denies f/c/n/v. No difficulty voiding and tolerating PO intake. + BM. - Constitutional Vitals: Temp Pulse Resp BP Pulse Ox 97.7 F 65 19 140/79 94 07/24/17 07:00 07/24/17 07:00 07/24/17 07:00 07/24/17 07:00 07/24/17 07:00 - Head Head exam: Present: atraumatic, normocephalic - Eye Eye exam: Present: normal appearance, conjuntiva pink, sclera anicteric - Neck Neck exam general surgery: Present: full ROM, supple, trachea midline. Absent: lymphadenopathy - Respiratory Respiratory exam: Present: CTAB. Absent: accessory muscle use, rales, rhonchi, wheezes - Cardiovascular Cardiovascular exam: Present: RRR, +S1, +S2. Absent: diastolic murmur, gallop, rubs, systolic murmur - GI/Abdominal GI/Abdominal exam: Present: hypoactive bowel sounds, normal bowel sounds, soft, no peritoneal signs. Absent: distended, guarding, tenderness Additional comments: RLQ tenderness with palpation. - Extremities Exam Extremities exam: Present: warm, radial pulses palpable and symmetrical. Absent : calf tenderness, cyanotic, pedal edema - Neurological Exam Neurological exam: Present: alert, oriented X3, no focal deficits. Absent: pronater drift, facial droop, speech deficit - Skin Skin exam: Present: dry, intact Internal Medicine: Result - Labs CBC & Chem 7: 07/24/17 14:02 07/24/17 05:56 Labs: BMP 07/24/17 05:56 Sodium 141 Potassium 3.7 Chloride 104 Carbon Dioxide 27 BUN 27 H Creatinine 1.14 Glucose 109 H Calcium 9.7 - ABG Interpretation ABG results: PT/INR, D-dimer PT 13.2 Seconds (9.4-12.1) H 07/23/17 02:30 Consult Discharge Plan - Plan Referrals: Lance Cronin MD [Primary Care Provider] - <[email or web address] T - Last Filed: 07/24/17 19:59> Date of Encounter: 07/24/17 - Assessment and plan (1) CAD (coronary artery disease) Current Visit: No Status: Chronic Qualifiers: Coronary Disease-Associated Artery/Lesion type: bypass graft [place] vs. transplanted heart: [place] heart Associated angina: with stable angina Qualified Code(s): I25.708 - Atherosclerosis of coronary artery bypass graft(s) , unspecified, with other forms of angina pectoris (2) HTN (hypertension) Current Visit: No Status: Chronic Qualifiers: Hypertension type: essential hypertension Qualified Code(s): I10 - Essential (primary) hypertension (3) DVT prophylaxis Current Visit: No Status: Acute (4) Abdominal pain Current Visit: No Status: Acute Qualifiers: Abdominal location: generalized Qualified Code(s): R10.84 - Generalized abdominal pain (5) Physical deconditioning Current Visit: No Status: Acute (6) Acute on chronic systolic (congestive) heart failure Current Visit: No Status: Acute (7) Pneumonia Current Visit: Yes Status: Acute Qualifiers: Qualified Code(s): J18.9 - Pneumonia, unspecified organism - Time Spent With Patient Total time spent is greater than 50% in coordination of care (as documented) at patient's floor/unit and/or counseling patient: - Constitutional Vitals: Temp Pulse Resp BP Pulse Ox 97.5 F L 77 18 100/67 96 07/24/17 16:00 07/24/17 16:00 07/24/17 16:00 07/24/17 16:00 07/24/17 16:00 Internal Medicine: Result - Labs CBC & Chem 7: 07/24/17 14:02 07/24/17 05:56 - ABG Interpretation ABG results: PT/INR, D-dimer PT 13.2 Seconds (9.4-12.1) H 07/23/17 02:30 - Attending Attestation I examined this patient 07/24, and my medical decision-making was reviewed with the Resident Physician. I agree with the documented findings, disposition and treatment plan as described except to the extent set forth below.
[2017-07-24] MEDS ORDERED: Ascorbic Acid 500 MG TABLET PO SCH (10:15)
[2017-07-24] MEDS: *HR* Ticagrelor 90 MG TABLET PO SCH ×2 (12:03→23:02)
[2017-07-24] MEDS: Cyanocobalamin (B-12) 1,000 MCG TABLET PO SCH (12:03)
[2017-07-24] MEDS: Isosorbide MONOnitrate (24 HR) 60 MG TAB.ER.24H PO SCH (12:03)
[2017-07-24] MEDS: Aspirin Enteric Coated 81 MG Tablet PO SCH (12:03)
[2017-07-24] MEDS ORDERED: 0.9 % Sodium Chloride 1,000 ML ONE (13:19)
[2017-07-24 14:38] LABS: Basophils # 0.1 K/mcL (0.0-0.2); Eosinophils # 0.4 K/mcL (0.0-0.6); Eosinophils % 4.5 %; Hematocrit 41.4 % (37.5-50.1); Hemoglobin 13.8 g/dL (12.9-16.9); Immature Granulocytes % 0.3 % (0-4); Lymphocytes # 1.4 K/mcL (0.6-4.6); Lymphocytes % 18.4 %; Mean Corpuscular HGB Conc 33.3 g/dL (31.6-35.5); Mean Corpuscular Hemoglobin 28.6 pg (28.0-33.3); Mean Corpuscular Volume 85.9 fL (83.0-100.0); Mean Platelet Volume 10.8 fL (9.4-12.4); Monocytes # 0.9 K/mcL (0.0-1.3); Monocytes % 11.6 %; Neutrophils # 4.9 K/mcL (1.6-8.9); Platelet Count 217 K/mcL (140-400); Red Blood Count 4.82 M/mcL (4.19-5.50); Red Cell Distribution Width 15.5 % (11.5-14.5); Segmented Neutrophils % 64.2 %
[2017-07-24] MEDS ORDERED: 0.9 % Sodium Chloride 1,000 ML IVC ONE (15:34)
[2017-07-24] MEDS ORDERED: Furosemide 40 MG TABLET PO SCH (17:00)
[2017-07-25] MEDS: Acetaminophen 325 MG TABLET PO PRN ×2 (01:18→17:04)
[2017-07-25] MEDS: *HR* Heparin 5,000 UNIT/ML VIAL SQ SCH ×3 (06:17→22:37)
[2017-07-25] MEDS: Cyanocobalamin (B-12) 1,000 MCG TABLET PO SCH (08:54)
[2017-07-25] MEDS: Multivit/Ca/Min/Fe/FA 1 TAB TABLET PO SCH (08:54)
[2017-07-25] MEDS: Aspirin Enteric Coated 81 MG Tablet PO SCH (08:54)
[2017-07-25] MEDS: *HR* Ticagrelor 90 MG TABLET PO SCH ×2 (08:54→20:06)
[2017-07-25] MEDS: Insulin LISPRO 300 UNITS/3 ML VIAL SQ SCH ×4 (08:54→20:06)
[2017-07-25] MEDS: Isosorbide MONOnitrate (24 HR) 60 MG TAB.ER.24H PO SCH (08:54)
--- NOTE | 2017-07-25 11:25 | Internal Med Progress Note ---
<ClarisakulwantCalvin hollingsworth - Last Filed: 07/25/17 14:32> Date of Encounter: 07/25/17 Time of Encounter: 11:24 - Assessment and plan (1) Abdominal pain Current Visit: Yes Status: Acute Assessment and plan: Lipase and lactic acid essentially normal. CT abd/pelvis with unchanged mil peripancreatic fat stranding and nonobstructive left nephrolithiasis. Abd pain of unknown etiology and inconsistent with exam with voluntary guarding. Continue to monitor bowel movements and abdominal exam. Nonsurgical. Resume cardiac and diabetic diet. Qualifiers: Abdominal location: generalized Qualified Code(s): R10.84 - Generalized abdominal pain (2) CAD (coronary artery disease) Current Visit: Yes Status: Chronic Assessment and plan: Resume cardiac meds. Qualifiers: Coronary Disease-Associated Artery/Lesion type: bypass graft [place] vs. transplanted heart: [place] heart Associated angina: with stable angina Qualified Code(s): I25.708 - Atherosclerosis of coronary artery bypass graft(s) , unspecified, with other forms of angina pectoris (3) HTN (hypertension) Current Visit: Yes Status: Chronic Assessment and plan: Resume antihypertensives. hold lasix. Qualifiers: Hypertension type: essential hypertension Qualified Code(s): I10 - Essential (primary) hypertension (4) Physical deconditioning Current Visit: Yes Status: Chronic Assessment and plan: PT/OT with no recommendations and plan for needs at discharge. (5) DVT prophylaxis Current Visit: Yes Status: Acute Assessment and plan: Heparin subcutaneous for dvt ppx. (6) Acute on chronic systolic (congestive) heart failure Current Visit: Yes Status: Acute Assessment and plan: Resolved. Patient fluid balance at -2000mL. Continue to hold IV lasix at this time due to possible hypotension when used in combination with cardiac medications. Will resume cardiac meds. Continue with cardiac diet. - Time Spent With Patient Total time spent is greater than 50% in coordination of care (as documented) at patient's floor/unit and/or counseling patient: - Subjective Interval history: Patient did well overnight, no noticeable swelling. Patient still having complaints of abdominal pain and shows signs of voluntary guarding that is distractable. Patient denies fevers, chills, sweats, headaches, dizziness, changes in vision or hearing, nausea, vomiting, chest pain, shortness of breath , changes in bowels or bladder, weakness, or loss of sensation. Patient had episode of hypotension secondary to his hypertensive medications and lasix yesterday, but bp at this time was controlled at 123/80 rate 83bpm. - Constitutional Vitals: Temp Pulse Resp BP Pulse Ox 97.6 F 83 18 123/80 95 07/25/17 07:00 07/25/17 07:00 07/25/17 07:00 07/25/17 07:00 07/25/17 07:00 General appearance: Present: A&O X 3, no acute distress, answers questions appropriately - Head Head exam: Present: atraumatic, normal inspection, normocephalic - Eye Eye exam: Present: EOMI, normal appearance - ENT ENT exam: Present: mucous membranes moist, normal exam - Neck Neck exam general surgery: Present: full ROM, normal inspection - Respiratory Respiratory exam: Present: CTAB. Absent: rales, rhonchi, wheezes - Cardiovascular Cardiovascular exam: Present: RRR, +S1, +S2 - GI/Abdominal GI/Abdominal exam: Present: normal bowel sounds, soft, tenderness (voluntary RUQ , LLQ, LUQ, and epigastric pain that is distractable) - Extremities Exam Extremities exam: Present: full ROM, normal inspection, warm, radial pulses palpable and symmetrical. Absent: tenderness - Skin Skin exam: Present: dry, intact, normal color, warm Additional comments: surgical scar noted over sternum and periumbilical Internal Medicine: Result - Labs CBC & Chem 7: 07/24/17 14:02 07/24/17 05:56 - ABG Interpretation ABG results: PT/INR, D-dimer PT 13.2 Seconds (9.4-12.1) H 07/23/17 02:30 - VTE Reasons for not Prescribing Prophylaxis: Treatment not Indicated - Low risk for VTE Consult Discharge Plan - Plan Referrals: Lance Cronin MD [Primary Care Provider] - <Atul Gardner - Last Filed: 07/25/17 17:50> Date of Encounter: 07/25/17 - Assessment and plan (1) CAD (coronary artery disease) Current Visit: Yes Status: Chronic Qualifiers: Coronary Disease-Associated Artery/Lesion type: bypass graft [place] vs. transplanted heart: [place] heart Associated angina: with stable angina Qualified Code(s): I25.708 - Atherosclerosis of coronary artery bypass graft(s) , unspecified, with other forms of angina pectoris (2) HTN (hypertension) Current Visit: Yes Status: Chronic Qualifiers: Hypertension type: essential hypertension Qualified Code(s): I10 - Essential (primary) hypertension (3) DVT prophylaxis Current Visit: Yes Status: Acute (4) Abdominal pain Current Visit: Yes Status: Acute Qualifiers: Abdominal location: generalized Qualified Code(s): R10.84 - Generalized abdominal pain (5) Physical deconditioning Current Visit: Yes Status: Chronic (6) Acute on chronic systolic (congestive) heart failure Current Visit: Yes Status: Acute - Time Spent With Patient Total time spent is greater than 50% in coordination of care (as documented) at patient's floor/unit and/or counseling patient: - Constitutional Vitals: Temp Pulse Resp BP Pulse Ox 97.8 F 69 18 118/72 95 07/25/17 15:00 07/25/17 15:00 07/25/17 15:00 07/25/17 15:00 07/25/17 15:00 Internal Medicine: Result - Labs CBC & Chem 7: 07/24/17 14:02 07/24/17 05:56 - ABG Interpretation ABG results: PT/INR, D-dimer PT 13.2 Seconds (9.4-12.1) H 07/23/17 02:30 - Attending Attestation I examined this patient 07/25, and my medical decision-making was reviewed with the Resident Physician. I agree with the documented findings, disposition and treatment plan as described except to the extent set forth below.
--- NOTE | 2017-07-25 16:49 | Event Note ---
Date of Encounter: 07/25/17 Time of Encounter: 16:46 Spoke with Ethics food court team member regarding concerns of patient's not giving the cardiac medications to the patient and the patient not understanding fully that he hasn't been taking the cardiac medications and they may have been switched with herbal supplements. Ethics committee mentioned that the case was no longer to be heard by APS for some reason unknown. Plan: discharge patient with medication blister packs, this will deter having medications separate and will make it obvious whether medications are being changed or not given.
[2017-07-26] MEDS: Acetaminophen 325 MG TABLET PO PRN ×2 (04:50→13:47)
[2017-07-26] MEDS: *HR* Heparin 5,000 UNIT/ML VIAL SQ SCH (04:51)
[2017-07-26 05:38] LABS: BUN/Creatinine Ratio 31 (6-26); Blood Urea Nitrogen 33 mg/dL (8-23); Calcium 9.4 mg/dL (8.6-10.3); Carbon Dioxide 23 mEq/L (23-29); Chloride 107 mEq/L (98-107); Glucose 111 mg/dL (70-105); Osmolality,Calculated 294 (280-300); Sodium 138 mEq/L (136-145); eGFR For African Americans > 60 (> 60); eGFR For Non-African Americans > 60 (> 60)
[2017-07-26 07:25] VITALS: BP 130/82
--- NOTE | 2017-07-26 07:59 | Discharge Summary ---
<Roverto Guillaume - Last Filed: 07/26/17 07:51> - NOTES TO OUTPATIENT PROVIDER Notes to Outpatient Provider: Patient's sometimes switches his medications through herbal medications as she thinks that the medications may kill the patient. This may be the reason why patient presents to the hospital multiple times. Orders not resulted at time of discharge: Pending orders 07/25/17 17:00 EKG [ECG 12 lead ECG] [ECG] Stat Date of Encounter: 07/26/17 Time of Encounter: 07:51 - Discharge Diagnosis (1) Acute on chronic systolic (congestive) heart failure Priority: Primary Status: Resolved (2) CAD (coronary artery disease) Priority: Secondary Status: Chronic Qualifiers: Coronary Disease-Associated Artery/Lesion type: bypass graft [place] vs. transplanted heart: [place] heart Associated angina: with stable angina Qualified Code(s): I25.708 - Atherosclerosis of coronary artery bypass graft(s) , unspecified, with other forms of angina pectoris (3) HTN (hypertension) Priority: Secondary Status: Chronic Qualifiers: Hypertension type: essential hypertension Qualified Code(s): I10 - Essential (primary) hypertension (4) DVT prophylaxis Priority: Secondary Status: Acute (5) Abdominal pain Priority: Secondary Status: Resolved Qualifiers: Abdominal location: generalized Qualified Code(s): R10.84 - Generalized abdominal pain (6) Physical deconditioning Priority: Secondary Status: Resolved Hospital course: Mr. Pizarro is a 76 year old male presented with chief complaint of shortness of breath for 2 days before admission. Patient is noted to have increased lower extremity edema and also complaints of epigastric abdominal pain. He denied chest pain. Patient's chest x-ray showed mild vascular congestion and small pleural effusion. And his BMP was above baseline. Patient was found to be in CHF exacerbation and started on IV Lasix therapy. His urinalysis also indicated possible UTI and was started on IV antibiotics. Patient was also noted to be lethargic and weak and PT OT was consulted. Patient was successfully diuresis IV Lasix and transitioned to by mouth Lasix at his home dose. Since urine culture was negative and antibiotics were discontinued. Patient's abdominal pain was evaluated with CT abdomen pelvis which was negative for any acute changes. Lipase was negative as well. It was found that patient's may be switching out his medications to herbal supplements. It is reported that patient's 's previous and patient' s blamed this on the medications the previous was taking. Therefore she does not like Mr. Pizarro to take the medications he is on currently. Ethics committee was consulted and reported that since the patient' s has known bad intentions there is no investigation that can take place here. We will transfer patient's medications to [facility] so he can have them prepackaged and a blister pack. Today patient's lower extremity edema has resolved, his shortness of breath is at baseline. He is not requiring supplemental oxygen. He is able to tolerate his diet and ambulate independently. Patient will follow-up with PCP outpatient. Discharge discussed with: patient - Time Spent with Patient Total time spent providing and/or coordinating discharge services: - Discharge Medications Prescriptions: Ascorbate Calcium [Vitamin C] 500 mg PO DAILY #30 tablet Aspirin Enteric Coated [Aspirin EC] 81 mg PO DAILY #30 tablet. Atorvastatin [Lipitor] 40 mg PO HS #30 tablet Carvedilol [Coreg] 3.125 mg PO BIDWM 30 Days tab Cyanocobalamin (Vitamin B-12) [Vitamin B12] 1,000 mcg PO DAILY #30 tablet Docusate [Colace] 100 mg PO BID PRN #30 capsule PRN Reason: Constipation Furosemide [Lasix] 40 mg PO BIDDIURETIC #60 tablet Isosorbide MONOnitrate (24 HR) [Imdur] 120 mg PO DAILY #30 tab Lisinopril [Zestril] 2.5 mg PO DAILY #30 tab metFORMIN [Glucophage] 500 mg PO BID #60 tablet Multivitamin [One Daily Essential] 1 tab PO DAILY #30 tablet Nitroglycerin [Nitrostat] 0.4 mg SL Q5M PRN #30 tab.subl PRN Reason: Chest Pain Omeprazole [PriLOSEC] 20 mg PO BIDAC #60 capsule. Potassium Chloride [K-Tab ER] 10 meq PO DAILY #30 tablet.er Tamsulosin [Flomax] 0.4 mg PO DAILY #30 capsule Ticagrelor [Brilinta] 90 mg PO BID 30 Days tab Home Medications: Ascorbate Calcium [Vitamin C] 500 mg PO DAILY #30 tablet 07/26/17 [Rx] Aspirin Enteric Coated [Aspirin EC] 81 mg PO DAILY #30 tablet. 07/26/17 [Rx] Atorvastatin [Lipitor] 40 mg PO HS #30 tablet 07/26/17 [Rx] Carvedilol [Coreg] 3.125 mg PO BIDWM 30 Days tab 07/26/17 [Rx] Cyanocobalamin (Vitamin B-12) [Vitamin B12] 1,000 mcg PO DAILY #30 tablet [Rx] Docusate [Colace] 100 mg PO BID PRN #30 capsule 07/26/17 [Rx] Furosemide [Lasix] 40 mg PO BIDDIURETIC #60 tablet 07/26/17 [Rx] Isosorbide MONOnitrate (24 HR) [Imdur] 120 mg PO DAILY #30 tab 07/26/17 [Rx] Lisinopril [Zestril] 2.5 mg PO DAILY #30 tab 07/26/17 [Rx] Multivitamin [One Daily Essential] 1 tab PO DAILY #30 tablet 07/26/17 [Rx] Nitroglycerin [Nitrostat] 0.4 mg SL Q5M PRN #30 tab.subl 07/26/17 [Rx] Omeprazole [PriLOSEC] 20 mg PO BIDAC #60 capsule. 07/26/17 [Rx] Potassium Chloride [K-Tab ER] 10 meq PO DAILY #30 tablet.er 07/26/17 [Rx] Tamsulosin [Flomax] 0.4 mg PO DAILY #30 capsule 07/26/17 [Rx] Ticagrelor [Brilinta] 90 mg PO BID 30 Days tab 07/26/17 [Rx] metFORMIN [Glucophage] 500 mg PO BID #60 tablet 07/26/17 [Rx] Allergies/Adverse Reactions: 3 Allergy/AdvReac Type Severity Reaction Status Date / Time Oxycodone [From Percocet] Allergy Hives Verified 05/09/17 06:53 tramadol Allergy Hives Verified 05/09/17 06:53 Date of admission: 07/24/17 18:14 Primary care physician: Lance Cronin MD Discharging clinician: Roverto Guillaume Anticipated date of discharge: 07/26/17 - Constitutional Vitals: Temp Pulse Resp BP Pulse Ox 97.8 F 63 18 130/82 97 07/26/17 07:22 07/26/17 07:22 07/26/17 07:22 07/26/17 07:22 07/26/17 07:22 General appearance: Present: A&O X 3, no acute distress, answers questions appropriately - Other Additional findings: General: without distress HEENT: Head atraumatic, normocephalic, EOMI, PERR, neck nontender to palpation, absent lymphadenopathy, Moist Mucous Membranes, Heart: Paced rhythm Lungs: Clear to auscultation bilaterally Abdomen: Soft nontender, nondistended positive bowel sounds Skin: warm and dry, absent rash Extremities: Absent pedal edema, Neuro: Alert oriented 3 Vascular: Pedal and radial pulses 2 out of 4 - Patient Status Disposition: Home, Self-Care Condition: Good Functional capacity at discharge: independent ambulation Overall status at discharge: patient is progressing back to baseline - Discharge Instructions Instructions: Nitroglycerin (By mouth), Furosemide (By mouth), Potassium Chloride (By mouth), Aspirin (By mouth), Omeprazole (By mouth), Laxative, Stool Softeners (By mouth), Multivitamins, Adult Formula (By mouth), Ascorbic Acid ( Vitamin C) (By mouth), Isosorbide Mononitrate (By mouth), Metformin (By mouth), Atorvastatin (By mouth), Tamsulosin (By mouth), Carvedilol (By mouth), Vitamin B Complex (By mouth), Ticagrelor (By mouth), Myocardial Infarction (DC), Chest Pain (DC), Low Sodium Diet (DC), Fluid Restriction (DC), Cigarette Smoking and Your Health, Tipple Supervisor (GEN) Follow Up With: Lance Cronin MD [Primary Care Provider] - - Diet and Activity Activity: as per physical therapy Diet: diabetic diet, low fat, low cholesterol, low salt diet - VTE Reasons for not Prescribing Prophylaxis: Treatment not Indicated - Low risk for VTE <Atul Gardner - Last Filed: 07/26/17 12:31> Date of Encounter: 07/26/17 - Discharge Diagnosis (1) CAD (coronary artery disease) Status: Chronic Qualifiers: Coronary Disease-Associated Artery/Lesion type: bypass graft [place] vs. transplanted heart: [place] heart Associated angina: with stable angina Qualified Code(s): I25.708 - Atherosclerosis of coronary artery bypass graft(s) , unspecified, with other forms of angina pectoris (2) HTN (hypertension) Status: Chronic Qualifiers: Hypertension type: essential hypertension Qualified Code(s): I10 - Essential (primary) hypertension (3) DVT prophylaxis Status: Acute (4) Abdominal pain Status: Resolved Qualifiers: Abdominal location: generalized Qualified Code(s): R10.84 - Generalized abdominal pain (5) Physical deconditioning Status: Resolved (6) Acute on chronic systolic (congestive) heart failure Status: Resolved Hospital course: Mr. Pizarro is a 76 year old male - Time Spent with Patient Total time spent providing and/or coordinating discharge services: Greater than 30 minutes Date of admission: 07/24/17 18:14 Primary care physician: Lance Cronin MD - Constitutional Vitals: Temp Pulse Resp BP Pulse Ox 97.8 F 63 18 130/82 96 07/26/17 07:22 07/26/17 07:22 07/26/17 07:22 07/26/17 07:22 07/26/17 08:49 - Attending Attestation I saw at the bedside and examined this patient on 07/26/17 and my medical decision -making was reviewed with the Resident Physician. I agree with the documented findings, disposition and treatment plan as described except to the extent set forth below. Known to this facility for multiple readmissions due to noncompliance with home medications for management of CHF, he has an extensive cardiac history. There are multiple physicians patient's present for noncompliance which include, patient states Many Pills, Patient's Did Not Give Him His Medications, Patient's. Replacing His Medications with Herbal Medications. Patient Is Unaware Alert and Oriented. He Is Able to Make His Own Decisions. Again, He Has Been Diuresed Appropriately, Urinary Tract Infection Was Ruled Out, Electrolytes Are Stable, Physical Examination Is Unremarkable. Unremarkable imaging and labs. He is medically stable to be discharged home with adjusted medications, due to hypotension episodes Patient is not qualified for home health per PTOT eval Follow-up with primary care physician and dry pan charger. Rest of details as in the resident physicians documentation.
[2017-07-26] MEDS: Cyanocobalamin (B-12) 1,000 MCG TABLET PO SCH (08:42)
[2017-07-26] MEDS: Aspirin Enteric Coated 81 MG Tablet PO SCH (08:43)
[2017-07-26] MEDS: Isosorbide MONOnitrate (24 HR) 60 MG TAB.ER.24H PO SCH (08:43)
[2017-07-26] MEDS: Multivit/Ca/Min/Fe/FA 1 TAB TABLET PO SCH (08:43)
[2017-07-26] MEDS: *HR* Ticagrelor 90 MG TABLET PO SCH (08:43)
[2017-07-26] MEDS: Insulin LISPRO 300 UNITS/3 ML VIAL SQ SCH (08:48)
--- NOTE | 2017-07-26 15:51 | Electrocardiograph Report ---
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
--- NOTE | 2017-07-26 16:15 | Electrocardiograph Report ---
[place] [address] Test Date: 2017-07-25 Pat Name: Yue Pizarro Department: 111 Room: 2NE33 Gender: M Quality Control Lab Technician: TOYA : 1940 Requested By: Atul Gardner Order Number: [id number] Reading MD: Odalis Garcia Measurements Intervals [place] Rate: 70 P: 96 CO: 142 QRS: -57 QRSD: 200 T: 131 QT: 529 QTc: 549 Interpretive Statements ELECTRONIC VENTRICULAR PACEMAKER ABNORMAL RHYTHM ECG Electronically Signed On 07-26-2017 16:13:58 EDT by Odalis Garcia
--- NOTE | 2017-07-26 16:43 | Electrocardiograph Report ---
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
== END 2017-07-26 14:02 | disposition home or self-care (01) | DRG 291 ==
LOC: 2NENU 01:51 → EMEROO 01:51 → SUATTDRO 04:21 → 2NENU 04:46
PROVIDERS: ADMIT Internal Medicine; ATTEND Internal Medicine

== ENCOUNTER 2017-08-10 02:44 | Inpatient (IN) ==
--- NOTE | 2017-08-10 03:02 | Emergency Department Note ---
Disposition Clinical Impression: Chest pain Qualifiers: Chest pain type: unspecified Qualified Code(s): R07.9 - Chest pain, unspecified CHF exacerbation Qualifiers: Heart failure type: unspecified Qualified Code(s): I50.9 - Heart failure, unspecified Disposition: Admitted As Inpatient Condition: Fair Forms: ED Satisfaction Letter Time of Disposition: 05:31 Chest Pain HPI - General Stated Complaint: chest pain Time Seen by Provider: 08/10/17 02:45 Source: patient, EMS Limitations: no limitations Vital Signs Reviewed: Yes Nursing Notes Reviewed: Yes - History of Present Illness HPI Narrative: Patient is a 76-year-old male who presents to ED with a chief complaint of substernal chest pain. States his symptoms started around 11 PM this evening. Denies any nausea, vomiting, fever or chills. No shortness breath, problems with abdominal pain, urination or bowel movements. States the chest pain does seem worse with exertion. States it is an aching sensation all across his chest. Does not radiate up his neck or down his arms. Pt complaint: chest pain Onset (ago): hour(s) Duration: constant Onset: during rest Pain Location: substernal Severity: moderate Severity scale (1-10): 7 Quality: aching Pain Radiation: none Improves with: nothing Worsens with: exertion Associated symptoms: Denies: nausea, vomiting, dyspnea, fever, cough Treatments prior to arrival chest pain: none - Related Data Home Medications Medication Instructions Recorded Confirmed Atorvastatin [Lipitor] 40 mg PO HS 08/10/17 08/10/17 Carvedilol 3.125 mg PO BID 08/10/17 08/10/17 Furosemide [Lasix] 40 mg PO DAILY 08/10/17 08/10/17 Isosorbide Mononitrate ER 120 mg PO DAILY 08/10/17 08/10/17 Potassium Chloride [K-Tab ER] 10 meq PO DAILY 08/10/17 08/10/17 Ticagrelor [Brilinta] 90 mg PO BID 08/10/17 08/10/17 Allergies Allergy/AdvReac Type Severity Reaction Status Date / Time Oxycodone [From Percocet] Allergy Hives Verified 05/09/17 06:53 tramadol Allergy Hives Verified 05/09/17 06:53 All systems ED: reviewed and negative except as stated. Chest Pain PMH - Past Medical History Medical history: Reports: asthma, atrial fibrillation, CHF, coronary artery disease, CVA, diabetes, hypertension, myocardial infarction, thyroid disease Surgical history: Reports: angioplasty/stent, cholecystectomy, coronary bypass ( CABG), pacemaker/AICD Psychiatric history: Reports: no psych history - Social History Smoking Status: Former smoker Alcohol use: Reports: none Drug use: Reports: none Physical Exam - General Limitations: no limitations General appearance: alert, in no apparent distress - Head Head exam: atraumatic, normocephalic, normal inspection - Eye Eye exam: Present: normal appearance, EOMI - ENT ENT exam: normal exam, normal oropharynx, mucous membranes moist - Neck Neck exam: Present: normal inspection, full ROM, trachea midline - Chest Chest inspection: Present: normal inspection, symmetric chest wall rise - Respiratory Respiratory exam: Present: normal lung sounds bilaterally - Cardiovascular Cardiovascular exam: Present: regular rate, normal rhythm, normal heart sounds - Abdominal Exam Abdominal exam: Present: soft, Non-Tender. Absent: tenderness, distention, guarding, rebound, rigidity - Extremities Exam Extremities exam: Present: normal inspection, full ROM. Absent: tenderness, pedal edema - Neurological Exam Neurological exam: Present: alert - Psychiatric Psychiatric exam: Present: normal affect, normal mood - Skin Skin exam: Present: warm, dry, intact, normal color Course Course Narrative: Patient seen and examined. Chest pain since earlier tonight. Patient frequently comes into the emergency department for evaluation of chest pain. We will get an EKG, troponin level, chest x-ray. We will give an aspirin and nitro. - Reevaluation(s) Reevaluation #1: Labwork unremarkable. His chest x-ray does show signs of pulmonary congestion. Since his chest pain is different from his normal musculoskeletal chest pain, we will go ahead and admit for cardiac workup/monitoring as well as diuresis. Will give a dose of lasix here. I discussed with the hospitalist Dr. Pantoja who has accepted patient for admission. Time: 05:28 Vital Signs Temperature 97.9 F 08/10/17 02:48 Pulse Rate 64 08/10/17 02:48 Respiratory Rate 19 08/10/17 02:48 Blood Pressure 176/111 08/10/17 02:48 O2 Sat by Pulse Oximetry 96 08/10/17 02:48 Temperature 97.9 F 08/10/17 02:48 Pulse Rate 63 08/10/17 05:20 Respiratory Rate 18 08/10/17 05:20 Blood Pressure 169/104 08/10/17 05:20 O2 Sat by Pulse Oximetry 95 08/10/17 05:20 Oxygen Delivery Oxygen Delivery Nasal Cannula Chest Pain - Medical Records Medical records reviewed: Yes I reviewed the patient's medical records. - Lab Data Lab results reviewed: Yes I reviewed the patient's lab results. Result diagrams: 08/10/17 04:26 08/10/17 04:26 Lab Results 08/10/17 08/10/17 08/10/17 Range/Units 02:52 04:26 04:26 WBC 10.1 (4.3-11.1) K/mcL RBC 4.86 (4.19-5.50) M/mcL Hgb 14.6 (12.9-16.9) g/dL Hct 42.2 (37.5-50.1) % MCV 86.8 (83.0-100.0) fL MCH 30.0 (28.0-33.3) pg MCHC 34.6 (31.6-35.5) g/dL RDW 15.0 H (11.5-14.5) % Plt Count 146 (140-400) K/mcL MPV 11.0 (9.4-12.4) fL Immature Gran % 0.4 (0-4) % Seg Neutrophils % 75.2 % Lymphocytes % 13.6 % Monocytes % 6.8 % Eosinophils % 3.2 % Basophils % 0.8 % Neutrophils # 7.6 (1.6-8.9) K/mcL Lymphocytes # 1.4 (0.6-4.6) K/mcL Monocytes # 0.7 (0.0-1.3) K/mcL Eosinophils # 0.3 (0.0-0.6) K/mcL Basophils # 0.1 (0.0-0.2) K/mcL Nucleated RBCs/100 WBC 0.2 H (0) /100 WBC APTT 30.5 (26.0-36.0) Seconds Sodium (136-145) mEq/L Potassium (3.5-5.1) mEq/L Chloride (98-107) mEq/L Carbon Dioxide (23-29) mEq/L BUN (8-23) mg/dL Creatinine (0.70-1.30) mg/dL Est GFR ( Amer) (> 60) Est GFR (Non-Af Amer) (> 60) BUN/Creatinine Ratio (6-26) Glucose (70-105) mg/dL Calculated Osmolality (280-300) Calcium (8.6-10.3) mg/dL Troponin I 0.03 (< 0.04) ng/mL 08/10/17 Range/Units 04:26 WBC (4.3-11.1) K/mcL RBC (4.19-5.50) M/mcL Hgb (12.9-16.9) g/dL Hct (37.5-50.1) % MCV (83.0-100.0) fL MCH (28.0-33.3) pg MCHC (31.6-35.5) g/dL RDW (11.5-14.5) % Plt Count (140-400) K/mcL MPV (9.4-12.4) fL Immature Gran % (0-4) % Seg Neutrophils % % Lymphocytes % % Monocytes % % Eosinophils % % Basophils % % Neutrophils # (1.6-8.9) K/mcL Lymphocytes # (0.6-4.6) K/mcL Monocytes # (0.0-1.3) K/mcL Eosinophils # (0.0-0.6) K/mcL Basophils # (0.0-0.2) K/mcL Nucleated RBCs/100 WBC (0) /100 WBC APTT (26.0-36.0) Seconds Sodium 142 (136-145) mEq/L Potassium 3.9 (3.5-5.1) mEq/L Chloride 109 H (98-107) mEq/L Carbon Dioxide 23 (23-29) mEq/L BUN 21 (8-23) mg/dL Creatinine 1.07 (0.70-1.30) mg/dL Est GFR ( Amer) > 60 (> 60) Est GFR (Non-Af Amer) > 60 (> 60) BUN/Creatinine Ratio 20 (6-26) Glucose 134 H (70-105) mg/dL Calculated Osmolality 299 (280-300) Calcium 9.2 (8.6-10.3) mg/dL Troponin I (< 0.04) ng/mL - Radiology Data Radiology results reviewed: Yes I reviewed the patient's radiology results. Chest X-Ray 08/10/17 02:46 IMPRESSION: Findings suggestive of cardiomegaly and pulmonary venous congestion. D/ / Joss Holguin MD / Joss Holguin MD Interpreting Provider: Joss Holguin MD - EKG Data EKG attestation: Yes I reviewed and interpreted this EKG. EKG results narrative: EKG done at 248 shows electronic atrial ventricular paced rhythm at [address] elevation or depression noted. No left axis deviation. Unchanged from prior EKG done 08/04/2017. Heart Score - Score History: Slightly Suspicious EKG: Non Specific repolarisation Disturbance Age: Greater than 65 Risk Factors: Equal/Greater than 3 risk factor or history of atherosclerotic disease Troponin: Less than normal limit HEART Score Total: 5
--- NOTE | 2017-08-10 03:17 | Emergency Department Note ---
Disposition Clinical Impression: Chest pain Qualifiers: Chest pain type: unspecified Qualified Code(s): R07.9 - Chest pain, unspecified CHF exacerbation Qualifiers: Heart failure type: systolic Qualified Code(s): I50.23 - Acute on chronic systolic (congestive) heart failure Disposition: Admitted As Inpatient Condition: Fair Chest Pain HPI - General Chief Complaint: ED Chest Pain Stated Complaint: chest pain Time Seen by Provider: 08/10/17 02:45 Source: patient, EMS Limitations: no limitations - History of Present Illness Pain Location: substernal Severity scale (1-10): 7 Quality: aching Improves with: nothing Worsens with: exertion Associated symptoms: Denies: nausea, vomiting, dyspnea, fever, cough - Related Data Home Medications Medication Instructions Recorded Confirmed Aspirin [Lo-Dose Aspirin EC] 81 mg PO DAILY 08/10/17 08/10/17 Atorvastatin [Lipitor] 40 mg PO HS 08/10/17 08/10/17 Carvedilol 3.125 mg PO BID 08/10/17 08/10/17 Cinnamon Bark [Cinnamon] 500 mg PO DAILY 08/10/17 08/10/17 Furosemide [Lasix] 40 mg PO BID 08/10/17 08/10/17 Isosorbide MONOnitrate [Isosorbide 120 mg PO DAILY 08/10/17 08/10/17 Mononitrate ER] Lisinopril 2.5 mg PO DAILY 08/10/17 08/10/17 Metformin HCl 500 mg PO BID 08/10/17 08/10/17 Nitroglycerin [Nitrostat] 0.4 mg SL Q5M PRN 08/10/17 08/10/17 [place]-3/Dha/Epa/Fish Oil [Fish Oil 1 cap PO DAILY 08/10/17 08/10/17 1,000 mg Softgel] Potassium Chloride [K-Tab ER] 10 meq PO DAILY 08/10/17 08/10/17 Ticagrelor [Brilinta] 90 mg PO BID 08/10/17 08/10/17 Ubidecarenone/Vit E/Vit E Mix 1 cap PO DAILY 08/10/17 08/10/17 [Co-Enzyme Q10 100 mg Softgel] Allergies Allergy/AdvReac Type Severity Reaction Status Date / Time Oxycodone [From Percocet] Allergy Hives Verified 05/09/17 06:53 tramadol Allergy Hives Verified 05/09/17 06:53 Chest Pain PMH - Past Medical History Medical history: Reports: asthma, atrial fibrillation, CHF, coronary artery disease, CVA, diabetes, hypertension, myocardial infarction, thyroid disease Surgical history: Reports: angioplasty/stent, cholecystectomy, coronary bypass ( CABG), pacemaker/AICD Psychiatric history: Reports: no psych history - Social History Smoking Status: Former smoker Alcohol use: Reports: none Drug use: Reports: none Physical Exam - General Limitations: no limitations General appearance: alert, in no apparent distress Course Vital Signs Temperature 97.9 F 08/10/17 02:48 Pulse Rate 64 08/10/17 02:48 Respiratory Rate 19 08/10/17 02:48 Blood Pressure 176/111 08/10/17 02:48 O2 Sat by Pulse Oximetry 96 08/10/17 02:48 Temperature 97.8 F 08/13/17 11:00 Pulse Rate 52 08/13/17 11:00 Respiratory Rate 16 08/13/17 11:00 Blood Pressure 103/61 08/13/17 11:00 O2 Sat by Pulse Oximetry 95 08/13/17 11:00 Oxygen Delivery Oxygen Delivery Nasal Cannula Chest Pain - Lab Data Result diagrams: 08/13/17 05:42 08/13/17 05:42 Lab Results 08/10/17 08/10/17 08/10/17 Range/Units 02:52 04:26 04:26 WBC 10.1 (4.3-11.1) K/mcL RBC 4.86 (4.19-5.50) M/mcL Hgb 14.6 (12.9-16.9) g/dL Hct 42.2 (37.5-50.1) % MCV 86.8 (83.0-100.0) fL MCH 30.0 (28.0-33.3) pg MCHC 34.6 (31.6-35.5) g/dL RDW 15.0 H (11.5-14.5) % Plt Count 146 (140-400) K/mcL MPV 11.0 (9.4-12.4) fL Immature Gran % 0.4 (0-4) % Seg Neutrophils % 75.2 % Lymphocytes % 13.6 % Monocytes % 6.8 % Eosinophils % 3.2 % Basophils % 0.8 % Neutrophils # 7.6 (1.6-8.9) K/mcL Lymphocytes # 1.4 (0.6-4.6) K/mcL Monocytes # 0.7 (0.0-1.3) K/mcL Eosinophils # 0.3 (0.0-0.6) K/mcL Basophils # 0.1 (0.0-0.2) K/mcL Nucleated RBCs/100 WBC 0.2 H (0) /100 WBC APTT 30.5 (26.0-36.0) Seconds Sodium (136-145) mEq/L Potassium (3.5-5.1) mEq/L Chloride (98-107) mEq/L Carbon Dioxide (23-29) mEq/L BUN (8-23) mg/dL Creatinine (0.70-1.30) mg/dL Est GFR ( Amer) (> 60) Est GFR (Non-Af Amer) (> 60) BUN/Creatinine Ratio (6-26) Glucose (70-105) mg/dL POC Glucose (70-99) mg/dL Calculated Osmolality (280-300) Calcium (8.6-10.3) mg/dL Magnesium (1.6-2.6) mg/dL Troponin I 0.03 (< 0.04) ng/mL 08/10/17 08/10/17 08/10/17 Range/Units 04:26 08:12 08:28 WBC (4.3-11.1) K/mcL RBC (4.19-5.50) M/mcL Hgb (12.9-16.9) g/dL Hct (37.5-50.1) % MCV (83.0-100.0) fL MCH (28.0-33.3) pg MCHC (31.6-35.5) g/dL RDW (11.5-14.5) % Plt Count (140-400) K/mcL MPV (9.4-12.4) fL Immature Gran % (0-4) % Seg Neutrophils % % Lymphocytes % % Monocytes % % Eosinophils % % Basophils % % Neutrophils # (1.6-8.9) K/mcL Lymphocytes # (0.6-4.6) K/mcL Monocytes # (0.0-1.3) K/mcL Eosinophils # (0.0-0.6) K/mcL Basophils # (0.0-0.2) K/mcL Nucleated RBCs/100 WBC (0) /100 WBC APTT (26.0-36.0) Seconds Sodium 142 (136-145) mEq/L Potassium 3.9 (3.5-5.1) mEq/L Chloride 109 H (98-107) mEq/L Carbon Dioxide 23 (23-29) mEq/L BUN 21 (8-23) mg/dL Creatinine 1.07 (0.70-1.30) mg/dL Est GFR ( Amer) > 60 (> 60) Est GFR (Non-Af Amer) > 60 (> 60) BUN/Creatinine Ratio 20 (6-26) Glucose 134 H (70-105) mg/dL POC Glucose 200 H (70-99) mg/dL Calculated Osmolality 299 (280-300) Calcium 9.2 (8.6-10.3) mg/dL Magnesium (1.6-2.6) mg/dL Troponin I 0.03 (< 0.04) ng/mL 08/10/17 08/10/17 08/10/17 Range/Units 11:24 14:15 16:37 WBC (4.3-11.1) K/mcL RBC (4.19-5.50) M/mcL Hgb (12.9-16.9) g/dL Hct (37.5-50.1) % MCV (83.0-100.0) fL MCH (28.0-33.3) pg MCHC (31.6-35.5) g/dL RDW (11.5-14.5) % Plt Count (140-400) K/mcL MPV (9.4-12.4) fL Immature Gran % (0-4) % Seg Neutrophils % % Lymphocytes % % Monocytes % % Eosinophils % % Basophils % % Neutrophils # (1.6-8.9) K/mcL Lymphocytes # (0.6-4.6) K/mcL Monocytes # (0.0-1.3) K/mcL Eosinophils # (0.0-0.6) K/mcL Basophils # (0.0-0.2) K/mcL Nucleated RBCs/100 WBC (0) /100 WBC APTT (26.0-36.0) Seconds Sodium (136-145) mEq/L Potassium (3.5-5.1) mEq/L Chloride (98-107) mEq/L Carbon Dioxide (23-29) mEq/L BUN (8-23) mg/dL Creatinine (0.70-1.30) mg/dL Est GFR ( Amer) (> 60) Est GFR (Non-Af Amer) (> 60) BUN/Creatinine Ratio (6-26) Glucose (70-105) mg/dL POC Glucose 119 H 103 H (70-99) mg/dL Calculated Osmolality (280-300) Calcium (8.6-10.3) mg/dL Magnesium (1.6-2.6) mg/dL Troponin I 0.03 (< 0.04) ng/mL 08/10/17 08/10/17 08/11/17 Range/Units 21:00 22:16 07:39 WBC (4.3-11.1) K/mcL RBC (4.19-5.50) M/mcL Hgb (12.9-16.9) g/dL Hct (37.5-50.1) % MCV (83.0-100.0) fL MCH (28.0-33.3) pg MCHC (31.6-35.5) g/dL RDW (11.5-14.5) % Plt Count (140-400) K/mcL MPV (9.4-12.4) fL Immature Gran % (0-4) % Seg Neutrophils % % Lymphocytes % % Monocytes % % Eosinophils % % Basophils % % Neutrophils # (1.6-8.9) K/mcL Lymphocytes # (0.6-4.6) K/mcL Monocytes # (0.0-1.3) K/mcL Eosinophils # (0.0-0.6) K/mcL Basophils # (0.0-0.2) K/mcL Nucleated RBCs/100 WBC (0) /100 WBC APTT (26.0-36.0) Seconds Sodium (136-145) mEq/L Potassium (3.5-5.1) mEq/L Chloride (98-107) mEq/L Carbon Dioxide (23-29) mEq/L BUN (8-23) mg/dL Creatinine (0.70-1.30) mg/dL Est GFR ( Amer) (> 60) Est GFR (Non-Af Amer) (> 60) BUN/Creatinine Ratio (6-26) Glucose (70-105) mg/dL POC Glucose 98 113 H (70-99) mg/dL Calculated Osmolality (280-300) Calcium (8.6-10.3) mg/dL Magnesium (1.6-2.6) mg/dL Troponin I 0.04 H* (< 0.04) ng/mL 08/11/17 08/11/17 08/11/17 Range/Units 08:12 08:12 11:40 WBC 8.8 (4.3-11.1) K/mcL RBC 5.18 (4.19-5.50) M/mcL Hgb 14.7 (12.9-16.9) g/dL Hct 44.8 (37.5-50.1) % MCV 86.5 (83.0-100.0) fL MCH 28.4 (28.0-33.3) pg MCHC 32.8 (31.6-35.5) g/dL RDW 14.8 H (11.5-14.5) % Plt Count 150 (140-400) K/mcL MPV 11.1 (9.4-12.4) fL Immature Gran % 0.2 (0-4) % Seg Neutrophils % 73.1 % Lymphocytes % 13.8 % Monocytes % 8.5 % Eosinophils % 3.8 % Basophils % 0.6 % Neutrophils # 6.5 (1.6-8.9) K/mcL Lymphocytes # 1.2 (0.6-4.6) K/mcL Monocytes # 0.8 (0.0-1.3) K/mcL Eosinophils # 0.3 (0.0-0.6) K/mcL Basophils # 0.1 (0.0-0.2) K/mcL Nucleated RBCs/100 WBC (0) /100 WBC APTT (26.0-36.0) Seconds Sodium 139 (136-145) mEq/L Potassium 3.7 (3.5-5.1) mEq/L Chloride 104 (98-107) mEq/L Carbon Dioxide 27 (23-29) mEq/L BUN 23 (8-23) mg/dL Creatinine 1.12 (0.70-1.30) mg/dL Est GFR ( Amer) > 60 (> 60) Est GFR (Non-Af Amer) > 60 (> 60) BUN/Creatinine Ratio 21 (6-26) Glucose 131 H (70-105) mg/dL POC Glucose 150 H (70-99) mg/dL Calculated Osmolality 293 (280-300) Calcium 9.8 (8.6-10.3) mg/dL Magnesium 1.9 (1.6-2.6) mg/dL Troponin I (< 0.04) ng/mL 08/11/17 08/11/17 08/12/17 Range/Units 16:07 20:06 04:25 WBC 8.5 (4.3-11.1) K/mcL RBC 5.08 (4.19-5.50) M/mcL Hgb 14.4 (12.9-16.9) g/dL Hct 43.9 (37.5-50.1) % MCV 86.4 (83.0-100.0) fL MCH 28.3 (28.0-33.3) pg MCHC 32.8 (31.6-35.5) g/dL RDW 14.8 H (11.5-14.5) % Plt Count 160 (140-400) K/mcL MPV 11.2 (9.4-12.4) fL Immature Gran % 0.2 (0-4) % Seg Neutrophils % 66.9 % Lymphocytes % 17.6 % Monocytes % 9.7 % Eosinophils % 4.8 % Basophils % 0.8 % Neutrophils # 5.7 (1.6-8.9) K/mcL Lymphocytes # 1.5 (0.6-4.6) K/mcL Monocytes # 0.8 (0.0-1.3) K/mcL Eosinophils # 0.4 (0.0-0.6) K/mcL Basophils # 0.1 (0.0-0.2) K/mcL Nucleated RBCs/100 WBC (0) /100 WBC APTT (26.0-36.0) Seconds Sodium (136-145) mEq/L Potassium (3.5-5.1) mEq/L Chloride (98-107) mEq/L Carbon Dioxide (23-29) mEq/L BUN (8-23) mg/dL Creatinine (0.70-1.30) mg/dL Est GFR ( Amer) (> 60) Est GFR (Non-Af Amer) (> 60) BUN/Creatinine Ratio (6-26) Glucose (70-105) mg/dL POC Glucose 132 H 134 H (70-99) mg/dL Calculated Osmolality (280-300) Calcium (8.6-10.3) mg/dL Magnesium (1.6-2.6) mg/dL Troponin I (< 0.04) ng/mL 08/12/17 08/12/17 08/12/17 Range/Units 04:25 07:15 11:11 WBC (4.3-11.1) K/mcL RBC (4.19-5.50) M/mcL Hgb (12.9-16.9) g/dL Hct (37.5-50.1) % MCV (83.0-100.0) fL MCH (28.0-33.3) pg MCHC (31.6-35.5) g/dL RDW (11.5-14.5) % Plt Count (140-400) K/mcL MPV (9.4-12.4) fL Immature Gran % (0-4) % Seg Neutrophils % % Lymphocytes % % Monocytes % % Eosinophils % % Basophils % % Neutrophils # (1.6-8.9) K/mcL Lymphocytes # (0.6-4.6) K/mcL Monocytes # (0.0-1.3) K/mcL Eosinophils # (0.0-0.6) K/mcL Basophils # (0.0-0.2) K/mcL Nucleated RBCs/100 WBC (0) /100 WBC APTT (26.0-36.0) Seconds Sodium 140 (136-145) mEq/L Potassium 3.7 (3.5-5.1) mEq/L Chloride 105 (98-107) mEq/L Carbon Dioxide 26 (23-29) mEq/L BUN 26 H (8-23) mg/dL Creatinine 1.06 (0.70-1.30) mg/dL Est GFR ( Amer) > 60 (> 60) Est GFR (Non-Af Amer) > 60 (> 60) BUN/Creatinine Ratio 25 (6-26) Glucose 110 H (70-105) mg/dL POC Glucose 124 H 182 H (70-99) mg/dL Calculated Osmolality 295 (280-300) Calcium 9.7 (8.6-10.3) mg/dL Magnesium (1.6-2.6) mg/dL Troponin I (< 0.04) ng/mL 08/12/17 Range/Units 16:39 WBC (4.3-11.1) K/mcL RBC (4.19-5.50) M/mcL Hgb (12.9-16.9) g/dL Hct (37.5-50.1) % MCV (83.0-100.0) fL MCH (28.0-33.3) pg MCHC (31.6-35.5) g/dL RDW (11.5-14.5) % Plt Count (140-400) K/mcL MPV (9.4-12.4) fL Immature Gran % (0-4) % Seg Neutrophils % % Lymphocytes % % Monocytes % % Eosinophils % % Basophils % % Neutrophils # (1.6-8.9) K/mcL Lymphocytes # (0.6-4.6) K/mcL Monocytes # (0.0-1.3) K/mcL Eosinophils # (0.0-0.6) K/mcL Basophils # (0.0-0.2) K/mcL Nucleated RBCs/100 WBC (0) /100 WBC APTT (26.0-36.0) Seconds Sodium (136-145) mEq/L Potassium (3.5-5.1) mEq/L Chloride (98-107) mEq/L Carbon Dioxide (23-29) mEq/L BUN (8-23) mg/dL Creatinine (0.70-1.30) mg/dL Est GFR ( Amer) (> 60) Est GFR (Non-Af Amer) (> 60) BUN/Creatinine Ratio (6-26) Glucose (70-105) mg/dL POC Glucose 105 H (70-99) mg/dL Calculated Osmolality (280-300) Calcium (8.6-10.3) mg/dL Magnesium (1.6-2.6) mg/dL Troponin I (< 0.04) ng/mL Attestation Statement - Attestation Attestation: I examined this patient and my medical decision-making was reviewed with the Resident Physician. I agree with the documented findings, disposition and treatment plan as described except to the extent set forth below. Findings consistent with chronic chest pain. Plan to obtain troponin, EKG, disposition will be pending results of laboratory analyses
[2017-08-10] MEDS ORDERED: Aspirin 81 MG TAB.CHEW PO STA (03:20)
[2017-08-10] MEDS ORDERED: Nitroglycerin 1 INCH/GM PACKET TP ONE (04:19)
[2017-08-10 04:40] LABS: Basophils # 0.1 K/mcL (0.0-0.2); Basophils % 0.8 %; Eosinophils # 0.3 K/mcL (0.0-0.6); Eosinophils % 3.2 %; Hematocrit 42.2 % (37.5-50.1); Hemoglobin 14.6 g/dL (12.9-16.9); Immature Granulocytes % 0.4 % (0-4); Lymphocytes # 1.4 K/mcL (0.6-4.6); Lymphocytes % 13.6 %; Mean Corpuscular HGB Conc 34.6 g/dL (31.6-35.5); Mean Corpuscular Volume 86.8 fL (83.0-100.0); Monocytes # 0.7 K/mcL (0.0-1.3); Monocytes % 6.8 %; Neutrophils # 7.6 K/mcL (1.6-8.9); Nucleated Red Blood Cells 0.2 /100 WBC (0); Platelet Count 146 K/mcL (140-400); Red Blood Count 4.86 M/mcL (4.19-5.50); Segmented Neutrophils % 75.2 %
[2017-08-10 05:02] LABS: BUN/Creatinine Ratio 20 (6-26); Blood Urea Nitrogen 21 mg/dL (8-23); Calcium 9.2 mg/dL (8.6-10.3); Carbon Dioxide 23 mEq/L (23-29); Chloride 109 mEq/L (98-107); Glucose 134 mg/dL (70-105); Osmolality,Calculated 299 (280-300); Potassium 3.9 mEq/L (3.5-5.1); Sodium 142 mEq/L (136-145); eGFR For African Americans > 60 (> 60); eGFR For Non-African Americans > 60 (> 60)
[2017-08-10] MEDS ORDERED: Furosemide 40 MG/4 ML VIAL IVP ONE (05:34)
[2017-08-10] MEDS ORDERED: Naloxone 0.4 MG/ML INJ IVP PRN (06:36)
--- NOTE | 2017-08-10 06:45 | Internal Med History&Physical ---
Date of Encounter: 08/10/17 Time of Encounter: 05:00 Internal Medicine - H&P: HPI Chief complaint: Chest pain Admitted From: Home Plans for Post Hospital Care: Home History of present illness: Mr. Pizarro is a 76 year old male presented to ER for chest pain. Past medical history is significant for systolic CHF with EF 40%, CAD, diabetes. Patient has multiple admission recently for the same reason. Today started from 11 PM, he started to have chest pain, the pain located on left chest and radiated to bilateral subaxillary area, 10 out of 10, with difficulty breathing. Patient denies nausea, vomiting, or diaphoresis. Patient has a mild dizziness. Patient denies cough or fever. In the emergency room, chest x- ray shows pulmonary congestion. Patient was treated with aspirin, Lasix IV, and Nitropaste. Patient's chest pain completely resolved after treatment. When I saw patient, he is pain-free. Patient was admitted to rule out ACS and consider CHF exacerbation. Past Med Surg Social Fam HX - Past Medical History Medical history: asthma, atrial fibrillation, CHF, coronary artery disease, CVA , diabetes, hypertension, myocardial infarction, thyroid disease Psychiatric history: no psych history - Past Surgical History Surgical History: angioplasty/stent, cholecystectomy, coronary bypass (CABG), pacemaker/AICD - Social History Smoking Status: Former smoker Smokeless Tobacco Status: No Alcohol use: none Drug use: none - Family History Grandfather Family Member Ethnicity: Non- Living Status: Hx Family Cardiac Disorders: Yes Mother Family Member Ethnicity: Non- Living Status: Hx Family Neurologic Disorders: Yes (CVA) Father Adopted: No Family Member Ethnicity: Non- Living Status: Hx Family Cardiac Disorders: No Hx Family Respiratory Disorders: No Hx Family Cancer: Yes (Unknown what type) Hx Family GI Disorders: No Hx Family Endocrine Disorder: No Hx Family Neuromuscular Disorders: No Hx Family Neurologic Disorders: No Hx Family HEENT Disorders: No Hx Family Autoimmune Disorders: No Internal Medicine - H&P: Meds Atorvastatin [Lipitor] 40 mg PO HS 08/10/17 [History] Carvedilol 3.125 mg PO BID 08/10/17 [History] Furosemide [Lasix] 40 mg PO DAILY 08/10/17 [History] Isosorbide Mononitrate ER 120 mg PO DAILY 08/10/17 [History] Potassium Chloride [K-Tab ER] 10 meq PO DAILY 08/10/17 [History] Ticagrelor [Brilinta] 90 mg PO BID 08/10/17 [History] 3 Allergy/AdvReac Type Severity Reaction Status Date / Time Oxycodone [From Percocet] Allergy Hives Verified 05/09/17 06:53 tramadol Allergy Hives Verified 05/09/17 06:53 All Systems PM: A 10-system review of systems was performed and is negative for pertinent findings except as documented above in the HPI. - Constitutional Vitals: Temp Pulse Resp BP Pulse Ox 97.9 F 79 16 163/101 96 08/10/17 02:48 08/10/17 06:31 08/10/17 06:31 08/10/17 06:31 08/10/17 06:31 General appearance: Present: A&O X 3, no acute distress, answers questions appropriately - Head Head exam: Present: atraumatic, normocephalic - Eye Eye exam: Present: PERRL, conjuntiva pink, sclera anicteric Pupils: Present: PERRL - Neck Neck exam general surgery: Present: supple, trachea midline. Absent: lymphadenopathy - Respiratory Respiratory exam: Present: CTAB. Absent: accessory muscle use, rales, rhonchi, wheezes - Cardiovascular Cardiovascular exam: Present: RRR, +S1, +S2. Absent: diastolic murmur, gallop, rubs, systolic murmur - GI/Abdominal GI/Abdominal exam: Present: normal bowel sounds, soft, no peritoneal signs. Absent: distended, tenderness - Extremities Exam Extremities exam: Present: warm, radial pulses palpable and symmetrical. Absent : calf tenderness, cyanotic, pedal edema - Neurological Exam Neurological exam: Present: CN II-XII intact, oriented X3, no focal deficits. Absent: pronater drift, facial droop, speech deficit - Skin Skin exam: Present: dry, intact Internal Med - H&P Results - Labs CBC & Chem 7: 08/10/17 04:26 08/10/17 04:26 Labs: Short CBC 08/10/17 Range/Units 04:26 WBC 10.1 (4.3-11.1) K/mcL Hgb 14.6 (12.9-16.9) g/dL Hct 42.2 (37.5-50.1) % Plt Count 146 (140-400) K/mcL Neutrophils # 7.6 (1.6-8.9) K/mcL BMP 08/10/17 04:26 Sodium 142 Potassium 3.9 Chloride 109 H Carbon Dioxide 23 BUN 21 Creatinine 1.07 Glucose 134 H Calcium 9.2 Cardiac Enzymes 08/10/17 Range/Units 02:52 Troponin I 0.03 (< 0.04) ng/mL - Impressions ITS Impressions Chest X-Ray 08/10/17 02:46 IMPRESSION: Findings suggestive of cardiomegaly and pulmonary venous congestion. D/ / Joss Holguin MD / Joss Holguin MD Interpreting Provider: Joss Holguin MD - Assessment and plan (1) Chest pain Current Visit: No Status: Acute Assessment and plan: Patient has chest pain, respond to Nitropaste. Need to rule out ACS. - Continue cardiac monitoring - Track 3 sets of troponin - Continue imdur by mouth - Patient is pain-free now Qualifiers: Chest pain type: precordial pain Qualified Code(s): R07.2 - Precordial pain (2) IDDM (insulin dependent diabetes mellitus) Current Visit: No Status: Chronic Assessment and plan: Place patient on insulin sliding scale, closely monitor glucose (3) CAD (coronary artery disease) Current Visit: No Status: Chronic Assessment and plan: Patient has history of CAD S/P stent in last October. Continue DAPT, beta fuentes, statin, and imdur. Qualifiers: Coronary Disease-Associated Artery/Lesion type: bypass graft [place] vs. transplanted heart: [place] heart Associated angina: with stable angina Qualified Code(s): I25.708 - Atherosclerosis of coronary artery bypass graft(s) , unspecified, with other forms of angina pectoris (4) DVT prophylaxis Current Visit: No Status: Acute Assessment and plan: Heparin subcutaneously (5) Hypertension Current Visit: No Status: Chronic Assessment and plan: Continue home medications. Qualifiers: Hypertension type: essential hypertension Qualified Code(s): I10 - Essential (primary) hypertension (6) CHF exacerbation Current Visit: Yes Status: Acute Assessment and plan: Pt has known systolic CHF with EF of 40%. Patient has increased the shortness of breath, chest x-ray shows pulmonary congestion. Consider CHF exacerbation. - Place patient on Lasix IV 40 mg daily - Strict I and O, cardiac and fluid restriction diet. - Weight daily - Continue home medications beta fuentes and TEE inhibitor Qualifiers: Heart failure type: systolic Qualified Code(s): I50.23 - Acute on chronic systolic (congestive) heart failure - Time Spent With Patient Total time spent is greater than 50% in coordination of care (as documented) at patient's floor/unit and/or counseling patient: 40 minutes Greater than 35 minutes
[2017-08-10] MEDS ORDERED: Dextrose Gel 15 GM/37.5 ML TUBE PO PRN ×2 (06:49)
[2017-08-10] MEDS ORDERED: *HR* Dextrose 50 % in Water (Syg) 50 ML SYRINGE IVP PRN (06:49)
[2017-08-10] MEDS ORDERED: D5% in Water 1,000 ML IVC PRN (06:49)
[2017-08-10] MEDS: Insulin LISPRO 300 UNITS/3 ML VIAL SQ SCH ×4 (08:27→21:00)
[2017-08-10] MEDS: Furosemide 40 MG/4 ML VIAL IVP SCH (08:27)
[2017-08-10] MEDS: *HR* Ticagrelor 90 MG TABLET PO SCH ×2 (08:28→20:59)
--- NOTE | 2017-08-10 09:34 | Event Note ---
Date of Encounter: 08/10/17 Time of Encounter: 09:32 Patient was seen earlier this am by hospitalist. Patient seen and examined at bedside. Presently he is chest pain free, No acute EKG changes. Vital signs are stable awaiting cardiology recommendations
[2017-08-10] MEDS: Isosorbide MONOnitrate (24 HR) 60 MG TAB.ER.24H PO SCH (09:36)
[2017-08-10] MEDS: Acetaminophen 325 MG TABLET PO PRN ×2 (11:35→20:59)
[2017-08-10] MEDS: *HR* Heparin 5,000 UNIT/ML VIAL SQ SCH (17:27)
--- NOTE | 2017-08-10 20:34 | Electrocardiograph Report ---
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
[2017-08-11] MEDS: *HR* Heparin 5,000 UNIT/ML VIAL SQ SCH ×2 (05:23→18:18)
[2017-08-11] MEDS: Acetaminophen 325 MG TABLET PO PRN ×2 (05:36→15:55)
[2017-08-11 09:08] LABS: Basophils # 0.1 K/mcL (0.0-0.2); Basophils % 0.6 %; Eosinophils # 0.3 K/mcL (0.0-0.6); Eosinophils % 3.8 %; Hematocrit 44.8 % (37.5-50.1); Hemoglobin 14.7 g/dL (12.9-16.9); Immature Granulocytes % 0.2 % (0-4); Lymphocytes # 1.2 K/mcL (0.6-4.6); Lymphocytes % 13.8 %; Mean Corpuscular HGB Conc 32.8 g/dL (31.6-35.5); Mean Corpuscular Hemoglobin 28.4 pg (28.0-33.3); Mean Corpuscular Volume 86.5 fL (83.0-100.0); Mean Platelet Volume 11.1 fL (9.4-12.4); Monocytes # 0.8 K/mcL (0.0-1.3); Monocytes % 8.5 %; Neutrophils # 6.5 K/mcL (1.6-8.9); Platelet Count 150 K/mcL (140-400); Red Blood Count 5.18 M/mcL (4.19-5.50); Red Cell Distribution Width 14.8 % (11.5-14.5); Segmented Neutrophils % 73.1 %
[2017-08-11] MEDS: Insulin LISPRO 300 UNITS/3 ML VIAL SQ SCH ×4 (09:13→21:48)
[2017-08-11] MEDS: Furosemide 40 MG/4 ML VIAL IVP SCH (09:13)
[2017-08-11] MEDS: *HR* Ticagrelor 90 MG TABLET PO SCH ×2 (09:14→21:48)
[2017-08-11] MEDS: Aspirin Enteric Coated 81 MG Tablet PO SCH (09:14)
[2017-08-11] MEDS: Isosorbide MONOnitrate (24 HR) 60 MG TAB.ER.24H PO SCH (09:14)
[2017-08-11 09:47] LABS: BUN/Creatinine Ratio 21 (6-26); Blood Urea Nitrogen 23 mg/dL (8-23); Calcium 9.8 mg/dL (8.6-10.3); Carbon Dioxide 27 mEq/L (23-29); Chloride 104 mEq/L (98-107); Glucose 131 mg/dL (70-105); Magnesium 1.9 mg/dL (1.6-2.6); Osmolality,Calculated 293 (280-300); Potassium 3.7 mEq/L (3.5-5.1); Sodium 139 mEq/L (136-145); eGFR For African Americans > 60 (> 60); eGFR For Non-African Americans > 60 (> 60)
--- NOTE | 2017-08-11 15:55 | Electrocardiograph Report ---
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
[2017-08-11] MEDS: Nitroglycerin 0.4 MG TAB.SUBL SL PRN ×2 (19:52→20:02)
--- NOTE | 2017-08-11 21:44 | Internal Med Progress Note ---
Date of Encounter: 08/11/17 Time of Encounter: 12:00 - Assessment and plan (1) CHF exacerbation Current Visit: Yes Status: Acute Assessment and plan: Pt has known systolic CHF with EF of 40%. Patient presented shortness of breath , chest x-ray shows pulmonary congestion. Most likely CHF exacerbation. Improved nO SOB CP -cont Lasix IV 40 mg daily - Strict I and O, cardiac and fluid restriction diet 1500ml . - Weight daily - Continue home medications beta fuentes and TEE inhibitor Qualifiers: Heart failure type: systolic Qualified Code(s): I50.23 - Acute on chronic systolic (congestive) heart failure (2) Chest pain Current Visit: No Status: Acute Assessment and plan: Presented with CP respond to nitropaste rule out ACS troponin negative x3 continue imdur EKG with no ST T wave abnormalities suspect this is rt CHF excerbation CP free cont DAPT statin TEE BB Qualifiers: Chest pain type: precordial pain Qualified Code(s): R07.2 - Precordial pain (3) IDDM (insulin dependent diabetes mellitus) Current Visit: No Status: Chronic Assessment and plan: Place patient on insulin sliding scale, closely monitor glucose (4) CAD (coronary artery disease) Current Visit: No Status: Chronic Assessment and plan: Patient has history of CAD S/P stent in last October. Continue DAPT, beta fuentes, statin, and imdur. Qualifiers: Coronary Disease-Associated Artery/Lesion type: bypass graft [place] vs. transplanted heart: [place] heart Associated angina: with stable angina Qualified Code(s): I25.708 - Atherosclerosis of coronary artery bypass graft(s) , unspecified, with other forms of angina pectoris (5) DVT prophylaxis Current Visit: No Status: Acute Assessment and plan: Heparin subcutaneously (6) Hypertension Current Visit: No Status: Chronic Assessment and plan: controlled Continue home medications. Qualifiers: Hypertension type: essential hypertension Qualified Code(s): I10 - Essential (primary) hypertension - Time Spent With Patient Total time spent is greater than 50% in coordination of care (as documented) at patient's floor/unit and/or counseling patient: - Subjective Interval history: I examined the patient at bedside denies any CP or SOB - Constitutional Vitals: Temp Pulse Resp BP Pulse Ox 97.8 F 81 16 120/69 100 08/11/17 20:03 08/11/17 20:03 08/11/17 20:03 08/11/17 20:03 08/11/17 20:03 General appearance: Present: A&O X 3, no acute distress, answers questions appropriately - Head Head exam: Present: atraumatic, normocephalic - Eye Eye exam: Present: PERRL, conjuntiva pink, sclera anicteric Pupils: Present: PERRL - Neck Neck exam general surgery: Present: supple, trachea midline. Absent: lymphadenopathy - Respiratory Respiratory exam: Present: CTAB. Absent: accessory muscle use, rales, rhonchi, wheezes - Cardiovascular Cardiovascular exam: Present: RRR, +S1, +S2. Absent: diastolic murmur, gallop, rubs, systolic murmur - GI/Abdominal GI/Abdominal exam: Present: normal bowel sounds, soft, no peritoneal signs. Absent: distended, tenderness - Extremities Exam Extremities exam: Present: warm, radial pulses palpable and symmetrical. Absent : calf tenderness, cyanotic, pedal edema - Neurological Exam Neurological exam: Present: CN II-XII intact, oriented X3, no focal deficits. Absent: pronater drift, facial droop, speech deficit - Skin Skin exam: Present: dry, intact Internal Medicine: Result - Labs CBC & Chem 7: 08/11/17 08:12 08/11/17 08:12 Labs: Short CBC 08/11/17 Range/Units 08:12 WBC 8.8 (4.3-11.1) K/mcL Hgb 14.7 (12.9-16.9) g/dL Hct 44.8 (37.5-50.1) % Plt Count 150 (140-400) K/mcL Neutrophils # 6.5 (1.6-8.9) K/mcL BMP 08/11/17 08:12 Sodium 139 Potassium 3.7 Chloride 104 Carbon Dioxide 27 BUN 23 Creatinine 1.12 Glucose 131 H Calcium 9.8 Cardiac Enzymes 08/10/17 Range/Units 22:16 Troponin I 0.04 H* (< 0.04) ng/mL Consult Discharge Plan - Plan Referrals: Lance Cronin MD [Primary Care Provider] -
[2017-08-12] MEDS: Nitroglycerin 0.4 MG TAB.SUBL SL PRN ×3 (00:48→18:22)
[2017-08-12 05:15] LABS: Basophils # 0.1 K/mcL (0.0-0.2); Basophils % 0.8 %; Eosinophils # 0.4 K/mcL (0.0-0.6); Eosinophils % 4.8 %; Hematocrit 43.9 % (37.5-50.1); Hemoglobin 14.4 g/dL (12.9-16.9); Immature Granulocytes % 0.2 % (0-4); Lymphocytes # 1.5 K/mcL (0.6-4.6); Lymphocytes % 17.6 %; Mean Corpuscular HGB Conc 32.8 g/dL (31.6-35.5); Mean Corpuscular Hemoglobin 28.3 pg (28.0-33.3); Mean Corpuscular Volume 86.4 fL (83.0-100.0); Mean Platelet Volume 11.2 fL (9.4-12.4); Monocytes # 0.8 K/mcL (0.0-1.3); Monocytes % 9.7 %; Neutrophils # 5.7 K/mcL (1.6-8.9); Platelet Count 160 K/mcL (140-400); Red Blood Count 5.08 M/mcL (4.19-5.50); Red Cell Distribution Width 14.8 % (11.5-14.5); Segmented Neutrophils % 66.9 %
[2017-08-12 05:33] LABS: BUN/Creatinine Ratio 25 (6-26); Blood Urea Nitrogen 26 mg/dL (8-23); Calcium 9.7 mg/dL (8.6-10.3); Carbon Dioxide 26 mEq/L (23-29); Chloride 105 mEq/L (98-107); Glucose 110 mg/dL (70-105); Osmolality,Calculated 295 (280-300); Potassium 3.7 mEq/L (3.5-5.1); Sodium 140 mEq/L (136-145); eGFR For African Americans > 60 (> 60); eGFR For Non-African Americans > 60 (> 60)
[2017-08-12] MEDS: *HR* Heparin 5,000 UNIT/ML VIAL SQ SCH ×2 (06:01→16:10)
[2017-08-12] MEDS: Aspirin Enteric Coated 81 MG Tablet PO SCH (07:57)
[2017-08-12] MEDS: Furosemide 40 MG/4 ML VIAL IVP SCH (07:57)
[2017-08-12] MEDS: Isosorbide MONOnitrate (24 HR) 60 MG TAB.ER.24H PO SCH (07:57)
[2017-08-12] MEDS: *HR* Ticagrelor 90 MG TABLET PO SCH ×2 (07:57→21:11)
[2017-08-12] MEDS: Insulin LISPRO 300 UNITS/3 ML VIAL SQ SCH ×4 (07:58→21:11)
--- NOTE | 2017-08-12 12:39 | Internal Med Progress Note ---
Date of Encounter: 08/12/17 Time of Encounter: 12:39 - Assessment and plan (1) CHF exacerbation Current Visit: Yes Status: Acute Assessment and plan: Pt has known systolic CHF with EF of 40% from echo 2017 . Patient presented shortness of breath, chest x-ray shows pulmonary congestion. Most likely CHF exacerbation. Improved nO SOB CP -cont Lasix IV 40 mg daily - Strict I and O, cardiac and fluid restriction diet 1500ml . - Weight daily- weight down - Continue home medications beta fuentes and TEE inhibitor check echo- pending results patient will most likely be discharge in am Qualifiers: Heart failure type: systolic Qualified Code(s): I50.23 - Acute on chronic systolic (congestive) heart failure (2) Chest pain Current Visit: No Status: Acute Assessment and plan: Presented with CP respond to nitropaste rule out ACS- this has resolved most likely rt to CHF exacerbation troponin negative x3 continue imdur EKG with no ST T wave abnormalities suspect this is rt CHF excerbation CP free cont DAPT statin TEE BB Echo pending Qualifiers: Chest pain type: precordial pain Qualified Code(s): R07.2 - Precordial pain (3) IDDM (insulin dependent diabetes mellitus) Current Visit: No Status: Chronic Assessment and plan: Blood glucose are stable continue insulin sliding scale, closely monitor glucose (4) CAD (coronary artery disease) Current Visit: No Status: Chronic Assessment and plan: Patient has history of CAD S/P stent in last October. Continue DAPT, beta fuentes, statin, and imdur. No chest pain Qualifiers: Coronary Disease-Associated Artery/Lesion type: bypass graft [place] vs. transplanted heart: [place] heart Associated angina: with stable angina Qualified Code(s): I25.708 - Atherosclerosis of coronary artery bypass graft(s) , unspecified, with other forms of angina pectoris (5) DVT prophylaxis Current Visit: No Status: Acute Assessment and plan: Heparin subcutaneously (6) Hypertension Current Visit: No Status: Chronic Assessment and plan: Stable at this time Continue home medications. Qualifiers: Hypertension type: essential hypertension Qualified Code(s): I10 - Essential (primary) hypertension - Time Spent With Patient Total time spent is greater than 50% in coordination of care (as documented) at patient's floor/unit and/or counseling patient: - Subjective Interval history: I examined the patient at bedside denies any CP or SOB, states that he feels better - Constitutional Vitals: Temp Pulse Resp BP Pulse Ox 97.8 F 66 18 115/71 97 08/12/17 11:12 08/12/17 11:12 08/12/17 11:12 08/12/17 11:12 08/12/17 11:12 General appearance: Present: A&O X 3, no acute distress, answers questions appropriately - Head Head exam: Present: atraumatic, normocephalic - Eye Eye exam: Present: PERRL, conjuntiva pink, sclera anicteric Pupils: Present: PERRL - Neck Neck exam general surgery: Present: supple, trachea midline. Absent: lymphadenopathy - Respiratory Respiratory exam: Present: CTAB. Absent: accessory muscle use, rales, rhonchi, wheezes - Cardiovascular Cardiovascular exam: Present: RRR, +S1, +S2. Absent: diastolic murmur, gallop, rubs, systolic murmur - GI/Abdominal GI/Abdominal exam: Present: normal bowel sounds, soft, no peritoneal signs. Absent: distended, tenderness - Extremities Exam Extremities exam: Present: warm, radial pulses palpable and symmetrical. Absent : calf tenderness, cyanotic, pedal edema - Neurological Exam Neurological exam: Present: CN II-XII intact, oriented X3, no focal deficits. Absent: pronater drift, facial droop, speech deficit - Skin Skin exam: Present: dry, intact Internal Medicine: Result - Labs CBC & Chem 7: 08/12/17 04:25 08/12/17 04:25 Labs: Short CBC 08/12/17 Range/Units 04:25 WBC 8.5 (4.3-11.1) K/mcL Hgb 14.4 (12.9-16.9) g/dL Hct 43.9 (37.5-50.1) % Plt Count 160 (140-400) K/mcL Neutrophils # 5.7 (1.6-8.9) K/mcL BMP 08/12/17 04:25 Sodium 140 Potassium 3.7 Chloride 105 Carbon Dioxide 26 BUN 26 H Creatinine 1.06 Glucose 110 H Calcium 9.7 Consult Discharge Plan - Plan Referrals: Lance Cronin MD [Primary Care Provider] -
[2017-08-13] MEDS: *HR* Heparin 5,000 UNIT/ML VIAL SQ SCH (05:40)
[2017-08-13] MEDS: Acetaminophen 325 MG TABLET PO PRN (05:47)
[2017-08-13 07:23] LABS: BUN/Creatinine Ratio 34 (6-26); Blood Urea Nitrogen 32 mg/dL (8-23); Calcium 9.9 mg/dL (8.6-10.3); Carbon Dioxide 22 mEq/L (23-29); Chloride 106 mEq/L (98-107); Glucose 115 mg/dL (70-105); Osmolality,Calculated 294 (280-300); Potassium 3.9 mEq/L (3.5-5.1); Sodium 138 mEq/L (136-145); eGFR For African Americans > 60 (> 60); eGFR For Non-African Americans > 60 (> 60)
[2017-08-13 07:44] LABS: Basophils # 0.1 K/mcL (0.0-0.2); Basophils % 0.7 %; Eosinophils # 0.4 K/mcL (0.0-0.6); Eosinophils % 4.5 %; Hematocrit 44.8 % (37.5-50.1); Hemoglobin 14.8 g/dL (12.9-16.9); Immature Granulocytes % 0.2 % (0-4); Lymphocytes # 1.3 K/mcL (0.6-4.6); Lymphocytes % 14.9 %; Mean Corpuscular Hemoglobin 28.5 pg (28.0-33.3); Mean Corpuscular Volume 86.3 fL (83.0-100.0); Mean Platelet Volume 11.1 fL (9.4-12.4); Monocytes # 0.8 K/mcL (0.0-1.3); Monocytes % 9.1 %; Neutrophils # 6.3 K/mcL (1.6-8.9); Platelet Count 153 K/mcL (140-400); Red Blood Count 5.19 M/mcL (4.19-5.50); Red Cell Distribution Width 14.7 % (11.5-14.5); Segmented Neutrophils % 70.6 %
[2017-08-13 08:52] LABS: Troponin I 0.03 ng/mL (< 0.04)
[2017-08-13] MEDS: Isosorbide MONOnitrate (24 HR) 60 MG TAB.ER.24H PO SCH (09:20)
[2017-08-13] MEDS: *HR* Ticagrelor 90 MG TABLET PO SCH (09:20)
[2017-08-13] MEDS: Furosemide 40 MG/4 ML VIAL IVP SCH (09:21)
[2017-08-13] MEDS: Aspirin Enteric Coated 81 MG Tablet PO SCH (09:21)
[2017-08-13] MEDS: Insulin LISPRO 300 UNITS/3 ML VIAL SQ SCH ×2 (09:22→12:10)
--- NOTE | 2017-08-13 10:43 | Internal Med Progress Note ---
Date of Encounter: 08/13/17 Time of Encounter: 10:43 - Assessment and plan (1) CHF exacerbation Current Visit: Yes Status: Acute Qualifiers: Heart failure type: systolic Qualified Code(s): I50.23 - Acute on chronic systolic (congestive) heart failure (2) Chest pain Current Visit: No Status: Acute Qualifiers: Chest pain type: precordial pain Qualified Code(s): R07.2 - Precordial pain (3) IDDM (insulin dependent diabetes mellitus) Current Visit: No Status: Chronic (4) CAD (coronary artery disease) Current Visit: No Status: Chronic Qualifiers: Coronary Disease-Associated Artery/Lesion type: bypass graft [place] vs. transplanted heart: [place] heart Associated angina: with stable angina Qualified Code(s): I25.708 - Atherosclerosis of coronary artery bypass graft(s) , unspecified, with other forms of angina pectoris (5) DVT prophylaxis Current Visit: No Status: Acute (6) Hypertension Current Visit: No Status: Chronic Qualifiers: Hypertension type: essential hypertension Qualified Code(s): I10 - Essential (primary) hypertension - Time Spent With Patient Total time spent is greater than 50% in coordination of care (as documented) at patient's floor/unit and/or counseling patient: - Subjective Interval history: I examined the patient at bedside denies any CP or SOB, at this time. - Constitutional Vitals: Temp Pulse Resp BP Pulse Ox 98.0 F 62 16 125/85 97 08/13/17 06:59 08/13/17 06:59 08/13/17 06:59 08/13/17 06:59 08/13/17 06:59 General appearance: Present: A&O X 3, no acute distress, answers questions appropriately Internal Medicine: Result - Labs CBC & Chem 7: 08/13/17 05:42 08/13/17 05:42 Labs: Short CBC 08/13/17 Range/Units 05:42 WBC 8.9 (4.3-11.1) K/mcL Hgb 14.8 (12.9-16.9) g/dL Hct 44.8 (37.5-50.1) % Plt Count 153 (140-400) K/mcL Neutrophils # 6.3 (1.6-8.9) K/mcL BMP 08/13/17 05:42 Sodium 138 Potassium 3.9 Chloride 106 Carbon Dioxide 22 L BUN 32 H Creatinine 0.94 Glucose 115 H Calcium 9.9 Cardiac Enzymes 08/13/17 Range/Units 05:42 Troponin I 0.03 (< 0.04) ng/mL Consult Discharge Plan - Plan Referrals: Lance Cronin MD [Primary Care Provider] -
[2017-08-13 12:25] VITALS: BP 103/61
--- NOTE | 2017-08-13 13:50 | Discharge Summary ---
- NOTES TO OUTPATIENT PROVIDER Notes to Outpatient Provider: Patient presented with chest pain- trop negative, echo unchanged - appeared fluid overloaded diuresed and continued with home Lasix Orders not resulted at time of discharge: Pending orders 08/13/17 08:26 EKG [ECG 12 lead ECG] [ECG] Stat Date of Encounter: 08/13/17 Time of Encounter: 13:46 - Discharge Diagnosis (1) CHF exacerbation Priority: Primary Status: Acute Qualifiers: Heart failure type: systolic Qualified Code(s): I50.23 - Acute on chronic systolic (congestive) heart failure (2) Chest pain Priority: Secondary Status: Acute Qualifiers: Chest pain type: precordial pain Qualified Code(s): R07.2 - Precordial pain (3) IDDM (insulin dependent diabetes mellitus) Priority: Secondary Status: Chronic (4) CAD (coronary artery disease) Priority: Secondary Status: Chronic Qualifiers: Coronary Disease-Associated Artery/Lesion type: bypass graft [place] vs. transplanted heart: [place] heart Associated angina: with stable angina Qualified Code(s): I25.708 - Atherosclerosis of coronary artery bypass graft(s) , unspecified, with other forms of angina pectoris (5) Hypertension Priority: Secondary Status: Chronic Qualifiers: Hypertension type: essential hypertension Qualified Code(s): I10 - Essential (primary) hypertension Hospital course: Mr. Pizarro is a 76 year old male past medical history as interfered relations to coronary artery disease COPD diabetes hypertension, [place] thyroid disease. Patient began to experience chest pain which was related to some axillary area and difficulty breathing. Denied any nausea vomiting diaphoresis. In the emergency room chest x-ray did show pulmonary congestion patient was treated with aspirin and Lasix IV and Nitropaste. Troponins have been negative EKG with no ST-T wave abnormalities. Echo was completed which showed EF of 40% which was unchanged from previous. He did have a stress test 03/2017 was negative for ischemia, prior infarct. Patient was diuresed over the next few days. Presently has been chest pain-free. Suspect chest pain related to CHF exacerbation. CHF education reinforced with patient. Advised patient to follow -up with cardiology next week I answered patient's questions. He is hemodynamically stable and he is ready for discharge. Discharge discussed with: patient - Time Spent with Patient Total time spent providing and/or coordinating discharge services: - Discharge Medications Home Medications: Aspirin [Lo-Dose Aspirin EC] 81 mg PO DAILY 08/10/17 [History] Atorvastatin [Lipitor] 40 mg PO HS 08/10/17 [History] Carvedilol 3.125 mg PO BID 08/10/17 [History] Cinnamon Bark [Cinnamon] 500 mg PO DAILY 08/10/17 [History] Furosemide [Lasix] 40 mg PO BID 08/10/17 [History] Isosorbide MONOnitrate [Isosorbide Mononitrate ER] 120 mg PO DAILY 08/10/17 [ History] Lisinopril 2.5 mg PO DAILY 08/10/17 [History] Metformin HCl 500 mg PO BID 08/10/17 [History] Nitroglycerin [Nitrostat] 0.4 mg SL Q5M PRN 08/10/17 [History] Hanna-3/Dha/Epa/Fish Oil [Fish Oil 1,000 mg Softgel] 1 cap PO DAILY 08/10/17 [ History] Potassium Chloride [K-Tab ER] 10 meq PO DAILY 08/10/17 [History] Ticagrelor [Brilinta] 90 mg PO BID 08/10/17 [History] Ubidecarenone/Vit E/Vit E Mix [Co-Enzyme Q10 100 mg Softgel] 1 cap PO DAILY [History] Allergies/Adverse Reactions: 3 Allergy/AdvReac Type Severity Reaction Status Date / Time Oxycodone [From Percocet] Allergy Hives Verified 05/09/17 06:53 tramadol Allergy Hives Verified 05/09/17 06:53 Date of admission: 08/12/17 18:09 Primary care physician: Lance Cronin MD Discharging clinician: Ree Lynn Anticipated date of discharge: 08/13/17 - Constitutional Vitals: Temp Pulse Resp BP Pulse Ox 97.8 F 52 16 103/61 95 08/13/17 11:00 08/13/17 11:00 08/13/17 11:00 08/13/17 11:00 08/13/17 11:00 General appearance: Present: A&O X 3, no acute distress, answers questions appropriately - Head Head exam: Present: atraumatic, normocephalic - Eye Eye exam: Present: PERRL, conjuntiva pink, sclera anicteric Pupils: Present: PERRL - Neck Neck exam general surgery: Present: supple, trachea midline. Absent: lymphadenopathy - Respiratory Respiratory exam: Present: CTAB. Absent: accessory muscle use, rales, rhonchi, wheezes - Cardiovascular Cardiovascular exam: Present: RRR, +S1, +S2. Absent: diastolic murmur, gallop, rubs, systolic murmur - GI/Abdominal GI/Abdominal exam: Present: normal bowel sounds, soft, no peritoneal signs. Absent: distended, tenderness - Extremities Exam Extremities exam: Present: warm, radial pulses palpable and symmetrical. Absent : calf tenderness, cyanotic, pedal edema - Neurological Exam Neurological exam: Present: CN II-XII intact, oriented X3, no focal deficits. Absent: pronater drift, facial droop, speech deficit - Skin Skin exam: Present: dry, intact - Patient Status Disposition: Home, Self-Care Condition: Fair - Discharge Instructions Instructions: Heart Failure (DC) Follow Up With: Lance Cronin MD [Primary Care Provider] - Seth Herrera DO [Partnered Physician] - - Diet and Activity Activity: increase activity as tolerated Diet: low salt diet
--- NOTE | 2017-08-17 06:37 | Electrocardiograph Report ---
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
== END 2017-08-13 15:15 | disposition home or self-care (01) | DRG 293 ==
LOC: EMEROO 02:44 → 2SOUTHHOLD 02:44 → 3BNU 19:00
PROVIDERS: ADMIT Internal Medicine; ATTEND Internal Medicine

== ENCOUNTER 2017-08-29 01:28 | Inpatient (IN) ==
[2017-08-29 01:52] LABS: Basophils # 0.1 K/mcL (0.0-0.2); Basophils % 0.6 %; Eosinophils # 0.3 K/mcL (0.0-0.6); Eosinophils % 3.5 %; Hematocrit 45.4 % (37.5-50.1); Immature Granulocytes % 0.3 % (0-4); Lymphocytes # 1.7 K/mcL (0.6-4.6); Lymphocytes % 21.6 %; Mean Corpuscular Hemoglobin 29.1 pg (28.0-33.3); Mean Corpuscular Volume 88.2 fL (83.0-100.0); Mean Platelet Volume 10.8 fL (9.4-12.4); Monocytes # 0.6 K/mcL (0.0-1.3); Monocytes % 7.1 %; Neutrophils # 5.2 K/mcL (1.6-8.9); Platelet Count 148 K/mcL (140-400); Red Blood Count 5.15 M/mcL (4.19-5.50); Red Cell Distribution Width 15.1 % (11.5-14.5); Segmented Neutrophils % 66.9 %
[2017-08-29 02:00] LABS: INR 1.2; Prothrombin Time 12.5 Seconds (9.4-12.1)
[2017-08-29 02:02] LABS: Activated Partial Thrombo Time 32.6 Seconds (26.0-36.0)
[2017-08-29] MEDS ORDERED: Ondansetron 4 MG/2 ML VIAL IVP ONE (02:03)
--- NOTE | 2017-08-29 02:03 | Emergency Department Note ---
Disposition Clinical Impression: CHF exacerbation Qualifiers: Heart failure type: systolic Qualified Code(s): I50.23 - Acute on chronic systolic (congestive) heart failure Disposition: Admitted As Inpatient Condition: Good SOB HPI - General Chief Complaint: ED Shortness of Breath/Dyspnea Stated Complaint: breathing problem Time Seen by Provider: 08/29/17 01:31 Source: patient, EMS Mode of arrival: EMS Limitations: no limitations Nursing Notes Reviewed: Yes Vital Signs Reviewed: Yes - History of Present Illness 76-year-old male well known to the facility presents emergency department with chest pain, difficulty breathing since around midnight. Patient states he was sleeping and he woke up with midsternal chest pain without radiation, scale 7/10 , difficulty breathing. He states he feels like there is fluid all in his body. Patient also complaining of upper abdominal pain stating that he has an increase in edema, and that there some pressure on his stomach. Patient also complaining of increase in edema to his left lower extremity. Patient states he does not have oxygen at home, nor does he have home health. Patient has a history of systolic CHF with an ejection fraction of 40%, CAD, diabetes, A. fib with a pacer/AICD, CAD, CVA,, [place], thyroid disease, CABG. Last bowel movement 2300, normal. He states he is taking his medicine every day , he states his is making him take him so he is unable to miss any doses of anything. Patient denies fever or chills, recent illnesses, difficulty with urination or defecation, nausea, vomiting, diarrhea, constipation. Pt Subjective Complaint: shortness of breath, chest pain Onset (ago): hour(s) Context: other Severity: moderate Consistency/Duration: other (Chest pain getting better) Improves with: oxygen Worsens with: exertion Known history of: COPD, congestive heart failure, diabetes, other Treatment prior to arrival: oxygen Cough present: No Sputum production: No - Related Data Home oxygen amount: none Home Medications Medication Instructions Recorded Confirmed Aspirin [Lo-Dose Aspirin EC] 81 mg PO DAILY 08/10/17 08/10/17 Atorvastatin [Lipitor] 40 mg PO HS 08/10/17 08/10/17 Carvedilol 3.125 mg PO BID 08/10/17 08/10/17 Cinnamon Bark [Cinnamon] 500 mg PO DAILY 08/10/17 08/10/17 Furosemide [Lasix] 40 mg PO BID 08/10/17 08/10/17 Isosorbide MONOnitrate [Isosorbide 120 mg PO DAILY 08/10/17 08/10/17 Mononitrate ER] Lisinopril 2.5 mg PO DAILY 08/10/17 08/10/17 Metformin HCl 500 mg PO BID 08/10/17 08/10/17 Nitroglycerin [Nitrostat] 0.4 mg SL Q5M PRN 08/10/17 08/10/17 [place]-3/Dha/Epa/Fish Oil [Fish Oil 1 cap PO DAILY 08/10/17 08/10/17 1,000 mg Softgel] Potassium Chloride [K-Tab ER] 10 meq PO DAILY 08/10/17 08/10/17 Ticagrelor [Brilinta] 90 mg PO BID 08/10/17 08/10/17 Ubidecarenone/Vit E/Vit E Mix 1 cap PO DAILY 08/10/17 08/10/17 [Co-Enzyme Q10 100 mg Softgel] Allergies Allergy/AdvReac Type Severity Reaction Status Date / Time Oxycodone [From Percocet] Allergy Hives Verified 08/29/17 01:30 tramadol Allergy Hives Verified 08/29/17 01:30 All systems ED: reviewed and negative except as stated. Review of Systems: As Per HPI Past Medical History - Past Medical History Attestation: Yes The following information was validated with the patient. Source: patient, old records reviewed Medical history: Reports: asthma, atrial fibrillation, CHF, coronary artery disease, CVA, diabetes, hypertension, myocardial infarction, thyroid disease Surgical history: Reports: angioplasty/stent, cholecystectomy, coronary bypass ( CABG), pacemaker/AICD Psychiatric history: Reports: no psych history - Social History Smoking Status: Former smoker Smokeless Tobacco Status: No Alcohol use: Reports: none Drug use: Reports: none Physical Exam - General Limitations: no limitations General appearance: alert, in no apparent distress - Head Head exam: atraumatic, normocephalic, normal inspection - Eye Eye exam: Present: normal appearance - ENT ENT exam: mucous membranes moist - Neck Neck exam: Present: normal inspection, full ROM - Chest Chest inspection: Present: normal inspection, symmetric chest wall rise - Respiratory Respiratory exam: Present: prolonged expiratory phase. Absent: respiratory distress, accessory muscle use - Expanded Respiratory Exam Location: decreased breath sounds: Left, Right, Lower - Cardiovascular Cardiovascular exam: Present: regular rate, normal rhythm, normal heart sounds, other (Bilateral lower extremity edema L>R) - Abdominal Exam Abdominal exam: Present: Non-Tender, normal bowel sounds, other (Firm) - Extremities Exam Extremities exam: Present: normal inspection, full ROM - Expanded Lower Extremity Exam Neurovascular/Tendon exam: Absent: pulse deficit Gait: observed and normal - Neurological Exam Neurological exam: Present: alert, oriented X3 - Psychiatric Psychiatric exam: Present: normal affect, normal mood - Skin Skin exam: Present: warm, dry, intact, normal color Course Course Narrative: Pleasant, elderly gentleman comes emergency Department with EMS, initially patient was 86% on room air and EMS providers placed him on 3 L nasal cannula with SPO2 98-99% upon arrival. Patient ambulated from EMS cot to our cot without any difficulty. Upon arrival emergency department patient states this chest pain is getting better and it is now a 4/10. Examination reveals lung sounds clear with diminished lung bases; heart rate regular rhythm, EKG reveals ventricular paced with a vent rate is 76, unchanged from previous EKGs , noted with bilateral lower extremity pitting edema, left greater than right; abdomen firm though nondistended, bowel sounds 4, nontender. Will obtain labs, urine, treat pain and fluid overload and reevaluate. - Reevaluation(s) Reevaluation #1: Patient continues to complain of chest pain 06/28--trop 0.03, BNP elevated at 1028. Plan is admission to hospitalist services for ACS versus CHF. Spoke with hospitalist who is agreeable take patient. Patient is agreeable to plan of care. Case was discussed with attending Dr. Velásquez who had one-on-one face time with patient and is agreeable to plan of care. Time: 03:02 Vital Signs Temperature 97.4 F L 08/29/17 01:37 Pulse Rate 77 08/29/17 01:37 Respiratory Rate 18 08/29/17 01:37 Blood Pressure 168/114 08/29/17 01:37 O2 Sat by Pulse Oximetry 98 08/29/17 01:37 Temperature 98.0 F 08/29/17 05:13 Pulse Rate 68 08/29/17 05:13 Respiratory Rate 18 08/29/17 05:13 Blood Pressure 158/87 08/29/17 05:13 O2 Sat by Pulse Oximetry 96 08/29/17 05:13 Oxygen Delivery Oxygen Delivery Nasal Cannula Shortness of Breath/Dyspnea - Lab Data Result diagrams: 08/29/17 03:48 08/29/17 03:48 Lab Results 08/29/17 08/29/17 08/29/17 Range/Units 01:38 01:38 01:38 WBC 7.7 (4.3-11.1) K/mcL RBC 5.15 (4.19-5.50) M/mcL Hgb 15.0 (12.9-16.9) g/dL Hct 45.4 (37.5-50.1) % MCV 88.2 (83.0-100.0) fL MCH 29.1 (28.0-33.3) pg MCHC 33.0 (31.6-35.5) g/dL RDW 15.1 H (11.5-14.5) % Plt Count 148 (140-400) K/mcL MPV 10.8 (9.4-12.4) fL Immature Gran % 0.3 (0-4) % Seg Neutrophils % 66.9 % Lymphocytes % 21.6 % Monocytes % 7.1 % Eosinophils % 3.5 % Basophils % 0.6 % Neutrophils # 5.2 (1.6-8.9) K/mcL Lymphocytes # 1.7 (0.6-4.6) K/mcL Monocytes # 0.6 (0.0-1.3) K/mcL Eosinophils # 0.3 (0.0-0.6) K/mcL Basophils # 0.1 (0.0-0.2) K/mcL PT 12.5 H (9.4-12.1) Seconds INR 1.2 APTT 32.6 (26.0-36.0) Seconds Sodium 141 (136-145) mEq/L Potassium 3.9 (3.5-5.1) mEq/L Chloride 106 (98-107) mEq/L Carbon Dioxide 26 (23-29) mEq/L BUN 24 H (8-23) mg/dL Creatinine 1.07 (0.70-1.30) mg/dL Est GFR ( Amer) > 60 (> 60) Est GFR (Non-Af Amer) > 60 (> 60) BUN/Creatinine Ratio 22 (6-26) Glucose 127 H (70-105) mg/dL Calculated Osmolality 298 (280-300) Lactic Acid (0.5-2.2) mmol/L Calcium 9.9 (8.6-10.3) mg/dL Magnesium (1.6-2.6) mg/dL Total Bilirubin 0.5 (0.3-1.0) mg/dL AST 23 (13-39) Units/L ALT 25 (7-52) Units/L Alkaline Phosphatase 78 (34-104) Units/L Troponin I 0.03 (< 0.04) ng/mL B-Natriuretic Peptide (Less than 100) pg/mL Serum Total Protein 7.3 (6.4-8.9) g/dL Albumin 4.1 (3.5-5.7) g/dL Globulin 3.2 (2.4-3.5) g/dL Albumin/Globulin Ratio 1.3 (1.1-2.2) Urine Color (Yellow) Urine Clarity (Clear) Urine pH (5.0-8.0) pH Units Ur Specific [place] (1.010-1.025) Urine Protein (Neg-Trace) mg/dL Urine Glucose (UA) (Normal) mg/dL Urine Ketones (Negative) mg/dL Urine Blood (Negative) Urine Nitrite (Negative) Urine Bilirubin (Negative) Urine Urobilinogen (Normal) mg/dL Ur Leukocyte Esterase (Negative) Urine Microscopic RBC (0-3) per hpf Urine Microscopic WBC (0-3) per hpf Ur Squamous Epith Cells (None-Few) per lpf Urine Bacteria (None-Few) per hpf Hyaline Casts (None-Few) per lpf Ur Culture Indicated? (NO) 08/29/17 08/29/17 08/29/17 Range/Units 01:38 01:38 02:00 WBC (4.3-11.1) K/mcL RBC (4.19-5.50) M/mcL Hgb (12.9-16.9) g/dL Hct (37.5-50.1) % MCV (83.0-100.0) fL MCH (28.0-33.3) pg MCHC (31.6-35.5) g/dL RDW (11.5-14.5) % Plt Count (140-400) K/mcL MPV (9.4-12.4) fL Immature Gran % (0-4) % Seg Neutrophils % % Lymphocytes % % Monocytes % % Eosinophils % % Basophils % % Neutrophils # (1.6-8.9) K/mcL Lymphocytes # (0.6-4.6) K/mcL Monocytes # (0.0-1.3) K/mcL Eosinophils # (0.0-0.6) K/mcL Basophils # (0.0-0.2) K/mcL PT (9.4-12.1) Seconds INR APTT (26.0-36.0) Seconds Sodium (136-145) mEq/L Potassium (3.5-5.1) mEq/L Chloride (98-107) mEq/L Carbon Dioxide (23-29) mEq/L BUN (8-23) mg/dL Creatinine (0.70-1.30) mg/dL Est GFR ( Amer) (> 60) Est GFR (Non-Af Amer) (> 60) BUN/Creatinine Ratio (6-26) Glucose (70-105) mg/dL Calculated Osmolality (280-300) Lactic Acid 1.1 (0.5-2.2) mmol/L Calcium (8.6-10.3) mg/dL Magnesium (1.6-2.6) mg/dL Total Bilirubin (0.3-1.0) mg/dL AST (13-39) Units/L ALT (7-52) Units/L Alkaline Phosphatase (34-104) Units/L Troponin I (< 0.04) ng/mL B-Natriuretic Peptide 1028 H (Less than 100) pg/mL Serum Total Protein (6.4-8.9) g/dL Albumin (3.5-5.7) g/dL Globulin (2.4-3.5) g/dL Albumin/Globulin Ratio (1.1-2.2) Urine Color Yellow (Yellow) Urine Clarity Clear (Clear) Urine pH 7.0 (5.0-8.0) pH Units Ur Specific [place] 1.025 (1.010-1.025) Urine Protein >=300 H (Neg-Trace) mg/dL Urine Glucose (UA) Normal (Normal) mg/dL Urine Ketones Negative (Negative) mg/dL Urine Blood Negative (Negative) Urine Nitrite Negative (Negative) Urine Bilirubin Negative (Negative) Urine Urobilinogen Normal (Normal) mg/dL Ur Leukocyte Esterase Negative (Negative) Urine Microscopic RBC 0-3 (0-3) per hpf Urine Microscopic WBC 0-3 (0-3) per hpf Ur Squamous Epith Cells Few (None-Few) per lpf Urine Bacteria Few (None-Few) per hpf Hyaline Casts None Seen (None-Few) per lpf Ur Culture Indicated? NO (NO) 08/29/17 08/29/17 08/29/17 Range/Units 03:48 03:48 03:48 WBC 8.8 (4.3-11.1) K/mcL RBC 5.26 (4.19-5.50) M/mcL Hgb 15.3 (12.9-16.9) g/dL Hct 46.4 (37.5-50.1) % MCV 88.2 (83.0-100.0) fL MCH 29.1 (28.0-33.3) pg MCHC 33.0 (31.6-35.5) g/dL RDW 15.1 H (11.5-14.5) % Plt Count 158 (140-400) K/mcL MPV 10.6 (9.4-12.4) fL Immature Gran % 0.3 (0-4) % Seg Neutrophils % 68.4 % Lymphocytes % 18.8 % Monocytes % 7.9 % Eosinophils % 3.9 % Basophils % 0.7 % Neutrophils # 6.0 (1.6-8.9) K/mcL Lymphocytes # 1.7 (0.6-4.6) K/mcL Monocytes # 0.7 (0.0-1.3) K/mcL Eosinophils # 0.3 (0.0-0.6) K/mcL Basophils # 0.1 (0.0-0.2) K/mcL PT (9.4-12.1) Seconds INR APTT (26.0-36.0) Seconds Sodium 141 (136-145) mEq/L Potassium 4.2 (3.5-5.1) mEq/L Chloride 105 (98-107) mEq/L Carbon Dioxide 28 (23-29) mEq/L BUN 23 (8-23) mg/dL Creatinine 1.09 (0.70-1.30) mg/dL Est GFR ( Amer) > 60 (> 60) Est GFR (Non-Af Amer) > 60 (> 60) BUN/Creatinine Ratio 21 (6-26) Glucose 130 H (70-105) mg/dL Calculated Osmolality 297 (280-300) Lactic Acid (0.5-2.2) mmol/L Calcium 10.1 (8.6-10.3) mg/dL Magnesium 2.0 (1.6-2.6) mg/dL Total Bilirubin (0.3-1.0) mg/dL AST (13-39) Units/L ALT (7-52) Units/L Alkaline Phosphatase (34-104) Units/L Troponin I 0.03 (< 0.04) ng/mL B-Natriuretic Peptide (Less than 100) pg/mL Serum Total Protein (6.4-8.9) g/dL Albumin (3.5-5.7) g/dL Globulin (2.4-3.5) g/dL Albumin/Globulin Ratio (1.1-2.2) Urine Color (Yellow) Urine Clarity (Clear) Urine pH (5.0-8.0) pH Units Ur Specific [place] (1.010-1.025) Urine Protein (Neg-Trace) mg/dL Urine Glucose (UA) (Normal) mg/dL Urine Ketones (Negative) mg/dL Urine Blood (Negative) Urine Nitrite (Negative) Urine Bilirubin (Negative) Urine Urobilinogen (Normal) mg/dL Ur Leukocyte Esterase (Negative) Urine Microscopic RBC (0-3) per hpf Urine Microscopic WBC (0-3) per hpf Ur Squamous Epith Cells (None-Few) per lpf Urine Bacteria (None-Few) per hpf Hyaline Casts (None-Few) per lpf Ur Culture Indicated? (NO)
[2017-08-29 02:05] LABS: Bilirubin,Urine Negative (Negative); Blood,Urine Negative (Negative); Clarity,Urine Clear (Clear); Color,Urine Yellow (Yellow); Glucose,Urine (UA) Normal (Normal); Ketones,Urine Negative (Negative); Leukocyte Esterase,Urine Negative (Negative); Nitrite,Urine Negative (Negative); Protein,Urine >=300 mg/dL (Neg-Trace); Specific Gravity,Urine 1.025 (1.010-1.025); Urobilinogen,Urine Normal (Normal)
[2017-08-29 02:11] LABS: Bacteria,Urine Few per hpf (None-Few); Hyaline Casts,Urine None Seen per lpf (None-Few); RBC,Urine 0-3 per hpf (0-3); Squamous Epithelial Cell,Urine Few per lpf (None-Few); WBC,Urine 0-3 per hpf (0-3)
[2017-08-29 02:13] LABS: Alanine Aminotransferase 25 Units/L (7-52); Albumin 4.1 g/dL (3.5-5.7); Albumin/Globulin Ratio 1.3 (1.1-2.2); Alkaline Phosphatase 78 Units/L (34-104); Aspartate Amino Transferase 23 Units/L (13-39); BUN/Creatinine Ratio 22 (6-26); Bilirubin,Total 0.5 mg/dL (0.3-1.0); Blood Urea Nitrogen 24 mg/dL (8-23); Calcium 9.9 mg/dL (8.6-10.3); Carbon Dioxide 26 mEq/L (23-29); Chloride 106 mEq/L (98-107); Globulin 3.2 g/dL (2.4-3.5); Glucose 127 mg/dL (70-105); Osmolality,Calculated 298 (280-300); Potassium 3.9 mEq/L (3.5-5.1); Sodium 141 mEq/L (136-145); Total Protein 7.3 g/dL (6.4-8.9); eGFR For African Americans > 60 (> 60); eGFR For Non-African Americans > 60 (> 60)
[2017-08-29 02:14] LABS: Troponin I 0.03 ng/mL (< 0.04)
[2017-08-29] MEDS ORDERED: Furosemide 40 MG/4 ML VIAL IVP ONE (02:20)
[2017-08-29] MEDS ORDERED: Nitroglycerin 1 INCH/GM PACKET TP ONE (02:24)
[2017-08-29] MEDS ORDERED: Naloxone 0.4 MG/ML INJ IVP PRN (03:26)
[2017-08-29] MEDS ORDERED: Nitroglycerin 0.4 MG TAB.SUBL SL PRN (03:28)
[2017-08-29] MEDS ORDERED: *HR* Dextrose 50 % in Water (Syg) 50 ML SYRINGE IVP PRN (03:29)
[2017-08-29] MEDS ORDERED: D5% in Water 1,000 ML IVC PRN (03:29)
[2017-08-29] MEDS ORDERED: Dextrose Gel 15 GM/37.5 ML TUBE PO PRN ×2 (03:29)
--- NOTE | 2017-08-29 03:34 | Internal Med History&Physical ---
Date of Encounter: 08/29/17 Time of Encounter: 02:30 Internal Medicine - H&P: HPI Chief complaint: Shortness of breath and chest pain Admitted From: Home Plans for Post Hospital Care: Home History of present illness: Mr. Pizarro is a 76 year old male presented to ER for chest pain and the shortness of breath. Past medical history is significant for systolic CHF with EF 40%, CAD, diabetes. Patient has history of systolic CHF. Patient is noncompliant with fluid restriction. Patient has increased shortness of breath and leg swelling in last 2 days. From midnight, he started to have chest pain, which is a sharp, radiated to left arm. Patient denies nausea, vomiting, or diaphoresis. In the emergency room, she was found BNP elevated to 1028. Chest x-ray shows pulmonary edema. The patient was given Lasix 40 mg IV and Nitropaste. His symptoms has improved significantly. Patient was admitted for further management. Past Med Surg Social Fam HX - Past Medical History Medical history: asthma, atrial fibrillation, CHF, coronary artery disease, CVA , diabetes, hypertension, myocardial infarction, thyroid disease Additional medical history: very hard of hearing Psychiatric history: no psych history - Past Surgical History Surgical History: angioplasty/stent, cholecystectomy, coronary bypass (CABG), pacemaker/AICD Additional surgical history: stent placement - Social History Smoking Status: Former smoker Smokeless Tobacco Status: No Alcohol use: none Drug use: none - Family History Grandfather Family Member Ethnicity: Non- Living Status: Hx Family Cardiac Disorders: Yes Mother Family Member Ethnicity: Non- Living Status: Hx Family Neurologic Disorders: Yes (CVA) Father Adopted: No Family Member Ethnicity: Non- Living Status: Hx Family Cardiac Disorders: No Hx Family Respiratory Disorders: No Hx Family Cancer: Yes (Unknown what type) Hx Family GI Disorders: No Hx Family Endocrine Disorder: No Hx Family Neuromuscular Disorders: No Hx Family Neurologic Disorders: No Hx Family HEENT Disorders: No Hx Family Autoimmune Disorders: No Internal Medicine - H&P: Meds Aspirin [Lo-Dose Aspirin EC] 81 mg PO DAILY 08/10/17 [History] Atorvastatin [Lipitor] 40 mg PO HS 08/10/17 [History] Carvedilol 3.125 mg PO BID 08/10/17 [History] Cinnamon Bark [Cinnamon] 500 mg PO DAILY 08/10/17 [History] Furosemide [Lasix] 40 mg PO BID 08/10/17 [History] Isosorbide MONOnitrate [Isosorbide Mononitrate ER] 120 mg PO DAILY 08/10/17 [ History] Lisinopril 2.5 mg PO DAILY 08/10/17 [History] Metformin HCl 500 mg PO BID 08/10/17 [History] Nitroglycerin [Nitrostat] 0.4 mg SL Q5M PRN 08/10/17 [History] [place]-3/Dha/Epa/Fish Oil [Fish Oil 1,000 mg Softgel] 1 cap PO DAILY 08/10/17 [ History] Potassium Chloride [K-Tab ER] 10 meq PO DAILY 08/10/17 [History] Ticagrelor [Brilinta] 90 mg PO BID 08/10/17 [History] Ubidecarenone/Vit E/Vit E Mix [Co-Enzyme Q10 100 mg Softgel] 1 cap PO DAILY [History] 3 Allergy/AdvReac Type Severity Reaction Status Date / Time Oxycodone [From Percocet] Allergy Hives Verified 08/29/17 01:30 tramadol Allergy Hives Verified 08/29/17 01:30 All Systems PM: A 10-system review of systems was performed and is negative for pertinent findings except as documented above in the HPI. - Constitutional Vitals: Temp Pulse Resp BP Pulse Ox 97.4 F L 67 15 161/92 97 08/29/17 01:37 08/29/17 02:47 08/29/17 02:47 08/29/17 02:47 08/29/17 02:47 General appearance: Present: A&O X 3, no acute distress, answers questions appropriately - Head Head exam: Present: atraumatic, normocephalic - Eye Eye exam: Present: PERRL, conjuntiva pink, sclera anicteric Pupils: Present: PERRL - Neck Neck exam general surgery: Present: supple, trachea midline. Absent: lymphadenopathy - Respiratory Respiratory exam: Present: CTAB. Absent: accessory muscle use, rales, rhonchi, wheezes - Cardiovascular Cardiovascular exam: Present: RRR, +S1, +S2. Absent: diastolic murmur, gallop, rubs, systolic murmur - GI/Abdominal GI/Abdominal exam: Present: normal bowel sounds, soft, no peritoneal signs. Absent: distended, tenderness - Extremities Exam Extremities exam: Present: pedal edema (Mild pedal edema bilaterally), warm, radial pulses palpable and symmetrical. Absent: calf tenderness, cyanotic - Neurological Exam Neurological exam: Present: CN II-XII intact, oriented X3, no focal deficits. Absent: pronater drift, facial droop, speech deficit - Skin Skin exam: Present: dry, intact Internal Med - H&P Results - Labs CBC & Chem 7: 08/29/17 01:38 08/29/17 01:38 Labs: Short CBC 08/29/17 Range/Units 01:38 WBC 7.7 (4.3-11.1) K/mcL Hgb 15.0 (12.9-16.9) g/dL Hct 45.4 (37.5-50.1) % Plt Count 148 (140-400) K/mcL Neutrophils # 5.2 (1.6-8.9) K/mcL BMP 08/29/17 01:38 Sodium 141 Potassium 3.9 Chloride 106 Carbon Dioxide 26 BUN 24 H Creatinine 1.07 Glucose 127 H Calcium 9.9 Cardiac Enzymes 08/29/17 Range/Units 01:38 Troponin I 0.03 (< 0.04) ng/mL Liver Function 08/29/17 Range/Units 01:38 Total Bilirubin 0.5 (0.3-1.0) mg/dL AST 23 (13-39) Units/L ALT 25 (7-52) Units/L Alkaline Phosphatase 78 (34-104) Units/L Albumin 4.1 (3.5-5.7) g/dL Urine 08/29/17 Range/Units 02:00 Urine Color Yellow (Yellow) Urine Clarity Clear (Clear) Urine pH 7.0 (5.0-8.0) pH Units Ur Specific [place] 1.025 (1.010-1.025) Urine Protein >=300 H (Neg-Trace) mg/dL Urine Glucose (UA) Normal (Normal) mg/dL - Impressions ITS Impressions Chest X-Ray 08/29/17 01:31 IMPRESSION: Pulmonary edema with right basilar atelectasis or pneumonia. D/ / Jasper Devine MD / Jasper Devine MD Interpreting Provider: Jasper Devine MD - Assessment and plan (1) CHF exacerbation Current Visit: Yes Status: Acute Assessment and plan: Patient has history of CHF with LVEF 40%. Increase shortness of breath and leg swelling. Lab shows elevated BNP. Chest x-ray shows pulmonary edema. Consider CHF exacerbation. -Strict in and out - Lasix 40 mg IV twice a day - Weight daily - Fluid restriction diet - Continue home medication beta fuentes and TEE inhibitor Qualifiers: Heart failure type: systolic Qualified Code(s): I50.23 - Acute on chronic systolic (congestive) heart failure (2) Chest pain Current Visit: No Status: Acute Assessment and plan: Patient has history of CAD S/P stent. Chest pain need to rule out ACS. - Continuous cardiac monitoring - Track 3 sets of troponin - Patient has a recent stress test done, which is negative for acute ischemia. Qualifiers: Chest pain type: precordial pain Qualified Code(s): R07.2 - Precordial pain (3) DVT prophylaxis Current Visit: No Status: Acute Assessment and plan: Heparin subcutaneously. (4) DM2 (diabetes mellitus, type 2) Current Visit: No Status: Chronic Assessment and plan: Place patient on Insulin sliding scale Qualifiers: Diabetes mellitus intermediate insulin use: without intermediate use Diabetes mellitus complication status: with circulatory complication Diabetes mellitus complication detail: with other circulatory complications Qualified Code(s): E11.59 - Type 2 diabetes mellitus with other circulatory complications (5) HTN (hypertension) Current Visit: No Status: Chronic Assessment and plan: Continue home medications Qualifiers: Hypertension type: essential hypertension Qualified Code(s): I10 - Essential (primary) hypertension (6) Paroxysmal a-fib Current Visit: No Status: Chronic Assessment and plan: Now paced rhythm. Heart rate is well controlled. Patient is not on anticoagulation because of previous hematuria. (7) CAD (coronary artery disease) Current Visit: No Status: Chronic Assessment and plan: Patient has stent placed in last October. Continue DAPT, beta fuentes, statin, and imdur. Qualifiers: Coronary Disease-Associated Artery/Lesion type: bypass graft [place] vs. transplanted heart: [place] heart Associated angina: with stable angina Qualified Code(s): I25.708 - Atherosclerosis of coronary artery bypass graft(s) , unspecified, with other forms of angina pectoris - Time Spent With Patient Total time spent is greater than 50% in coordination of care (as documented) at patient's floor/unit and/or counseling patient: 40 minutes Greater than 35 minutes
--- NOTE | 2017-08-29 04:00 | Emergency Department Note ---
Disposition Clinical Impression: CHF exacerbation Qualifiers: Heart failure type: systolic Qualified Code(s): I50.23 - Acute on chronic systolic (congestive) heart failure Disposition: Admitted As Inpatient Condition: Undetermined Referrals: Lance Cronin MD [Primary Care Provider] - Forms: ED Satisfaction Letter General Adult HPI - General Chief complaint: ED Shortness of Breath/Dyspnea Stated complaint: breathing problem Time Seen by Provider: 08/29/17 01:31 Source: patient, EMS Mode of arrival: EMS Limitations: no limitations Nursing Notes Reviewed: Yes Vital Signs Reviewed: Yes - History of Present Illness Pain Scale: 0 - Related Data Home Medications Medication Instructions Recorded Confirmed Aspirin [Lo-Dose Aspirin EC] 81 mg PO DAILY 08/10/17 08/10/17 Atorvastatin [Lipitor] 40 mg PO HS 08/10/17 08/10/17 Carvedilol 3.125 mg PO BID 08/10/17 08/10/17 Cinnamon Bark [Cinnamon] 500 mg PO DAILY 08/10/17 08/10/17 Furosemide [Lasix] 40 mg PO BID 08/10/17 08/10/17 Isosorbide MONOnitrate [Isosorbide 120 mg PO DAILY 08/10/17 08/10/17 Mononitrate ER] Lisinopril 2.5 mg PO DAILY 08/10/17 08/10/17 Metformin HCl 500 mg PO BID 08/10/17 08/10/17 Nitroglycerin [Nitrostat] 0.4 mg SL Q5M PRN 08/10/17 08/10/17 [place]-3/Dha/Epa/Fish Oil [Fish Oil 1 cap PO DAILY 08/10/17 08/10/17 1,000 mg Softgel] Potassium Chloride [K-Tab ER] 10 meq PO DAILY 08/10/17 08/10/17 Ticagrelor [Brilinta] 90 mg PO BID 08/10/17 08/10/17 Ubidecarenone/Vit E/Vit E Mix 1 cap PO DAILY 08/10/17 08/10/17 [Co-Enzyme Q10 100 mg Softgel] Allergies Allergy/AdvReac Type Severity Reaction Status Date / Time Oxycodone [From Percocet] Allergy Hives Verified 08/29/17 01:30 tramadol Allergy Hives Verified 08/29/17 01:30 Past Medical History - Past Medical History Medical history: Reports: asthma, atrial fibrillation, CHF, coronary artery disease, CVA, diabetes, hypertension, myocardial infarction, thyroid disease Surgical history: Reports: angioplasty/stent, cholecystectomy, coronary bypass ( CABG), pacemaker/AICD Psychiatric history: Reports: no psych history - Social History Smoking Status: Former smoker Smokeless Tobacco Status: No Alcohol use: Reports: none Drug use: Reports: none Physical Exam - General Limitations: no limitations General appearance: alert, in no apparent distress Course Vital Signs Temperature 97.4 F L 08/29/17 01:37 Pulse Rate 77 08/29/17 01:37 Respiratory Rate 18 08/29/17 01:37 Blood Pressure 168/114 08/29/17 01:37 O2 Sat by Pulse Oximetry 98 08/29/17 01:37 Temperature 97.4 F L 08/29/17 01:37 Pulse Rate 67 08/29/17 02:47 Respiratory Rate 15 08/29/17 02:47 Blood Pressure 161/92 08/29/17 02:47 O2 Sat by Pulse Oximetry 97 08/29/17 02:47 Oxygen Delivery Oxygen Delivery Nasal Cannula Medical Decision Making - Lab Data Result diagrams: 08/29/17 01:38 08/29/17 01:38 Lab Results 08/29/17 08/29/17 08/29/17 Range/Units 01:38 01:38 01:38 WBC 7.7 (4.3-11.1) K/mcL RBC 5.15 (4.19-5.50) M/mcL Hgb 15.0 (12.9-16.9) g/dL Hct 45.4 (37.5-50.1) % MCV 88.2 (83.0-100.0) fL MCH 29.1 (28.0-33.3) pg MCHC 33.0 (31.6-35.5) g/dL RDW 15.1 H (11.5-14.5) % Plt Count 148 (140-400) K/mcL MPV 10.8 (9.4-12.4) fL Immature Gran % 0.3 (0-4) % Seg Neutrophils % 66.9 % Lymphocytes % 21.6 % Monocytes % 7.1 % Eosinophils % 3.5 % Basophils % 0.6 % Neutrophils # 5.2 (1.6-8.9) K/mcL Lymphocytes # 1.7 (0.6-4.6) K/mcL Monocytes # 0.6 (0.0-1.3) K/mcL Eosinophils # 0.3 (0.0-0.6) K/mcL Basophils # 0.1 (0.0-0.2) K/mcL PT 12.5 H (9.4-12.1) Seconds INR 1.2 APTT 32.6 (26.0-36.0) Seconds Sodium 141 (136-145) mEq/L Potassium 3.9 (3.5-5.1) mEq/L Chloride 106 (98-107) mEq/L Carbon Dioxide 26 (23-29) mEq/L BUN 24 H (8-23) mg/dL Creatinine 1.07 (0.70-1.30) mg/dL Est GFR ( Amer) > 60 (> 60) Est GFR (Non-Af Amer) > 60 (> 60) BUN/Creatinine Ratio 22 (6-26) Glucose 127 H (70-105) mg/dL Calculated Osmolality 298 (280-300) Lactic Acid (0.5-2.2) mmol/L Calcium 9.9 (8.6-10.3) mg/dL Total Bilirubin 0.5 (0.3-1.0) mg/dL AST 23 (13-39) Units/L ALT 25 (7-52) Units/L Alkaline Phosphatase 78 (34-104) Units/L Troponin I 0.03 (< 0.04) ng/mL B-Natriuretic Peptide (Less than 100) pg/mL Serum Total Protein 7.3 (6.4-8.9) g/dL Albumin 4.1 (3.5-5.7) g/dL Globulin 3.2 (2.4-3.5) g/dL Albumin/Globulin Ratio 1.3 (1.1-2.2) Urine Color (Yellow) Urine Clarity (Clear) Urine pH (5.0-8.0) pH Units Ur Specific [place] (1.010-1.025) Urine Protein (Neg-Trace) mg/dL Urine Glucose (UA) (Normal) mg/dL Urine Ketones (Negative) mg/dL Urine Blood (Negative) Urine Nitrite (Negative) Urine Bilirubin (Negative) Urine Urobilinogen (Normal) mg/dL Ur Leukocyte Esterase (Negative) Urine Microscopic RBC (0-3) per hpf Urine Microscopic WBC (0-3) per hpf Ur Squamous Epith Cells (None-Few) per lpf Urine Bacteria (None-Few) per hpf Hyaline Casts (None-Few) per lpf Ur Culture Indicated? (NO) 08/29/17 08/29/17 08/29/17 Range/Units 01:38 01:38 02:00 WBC (4.3-11.1) K/mcL RBC (4.19-5.50) M/mcL Hgb (12.9-16.9) g/dL Hct (37.5-50.1) % MCV (83.0-100.0) fL MCH (28.0-33.3) pg MCHC (31.6-35.5) g/dL RDW (11.5-14.5) % Plt Count (140-400) K/mcL MPV (9.4-12.4) fL Immature Gran % (0-4) % Seg Neutrophils % % Lymphocytes % % Monocytes % % Eosinophils % % Basophils % % Neutrophils # (1.6-8.9) K/mcL Lymphocytes # (0.6-4.6) K/mcL Monocytes # (0.0-1.3) K/mcL Eosinophils # (0.0-0.6) K/mcL Basophils # (0.0-0.2) K/mcL PT (9.4-12.1) Seconds INR APTT (26.0-36.0) Seconds Sodium (136-145) mEq/L Potassium (3.5-5.1) mEq/L Chloride (98-107) mEq/L Carbon Dioxide (23-29) mEq/L BUN (8-23) mg/dL Creatinine (0.70-1.30) mg/dL Est GFR ( Amer) (> 60) Est GFR (Non-Af Amer) (> 60) BUN/Creatinine Ratio (6-26) Glucose (70-105) mg/dL Calculated Osmolality (280-300) Lactic Acid 1.1 (0.5-2.2) mmol/L Calcium (8.6-10.3) mg/dL Total Bilirubin (0.3-1.0) mg/dL AST (13-39) Units/L ALT (7-52) Units/L Alkaline Phosphatase (34-104) Units/L Troponin I (< 0.04) ng/mL B-Natriuretic Peptide 1028 H (Less than 100) pg/mL Serum Total Protein (6.4-8.9) g/dL Albumin (3.5-5.7) g/dL Globulin (2.4-3.5) g/dL Albumin/Globulin Ratio (1.1-2.2) Urine Color Yellow (Yellow) Urine Clarity Clear (Clear) Urine pH 7.0 (5.0-8.0) pH Units Ur Specific [place] 1.025 (1.010-1.025) Urine Protein >=300 H (Neg-Trace) mg/dL Urine Glucose (UA) Normal (Normal) mg/dL Urine Ketones Negative (Negative) mg/dL Urine Blood Negative (Negative) Urine Nitrite Negative (Negative) Urine Bilirubin Negative (Negative) Urine Urobilinogen Normal (Normal) mg/dL Ur Leukocyte Esterase Negative (Negative) Urine Microscopic RBC 0-3 (0-3) per hpf Urine Microscopic WBC 0-3 (0-3) per hpf Ur Squamous Epith Cells Few (None-Few) per lpf Urine Bacteria Few (None-Few) per hpf Hyaline Casts None Seen (None-Few) per lpf Ur Culture Indicated? NO (NO) Attestation Statement - Attestation Attestation: I, Alejandro Velásquez MD, personally evaluated this patient and discussed their management with the midlevel provicer, PAC/HUMAN RESOURCES PSYCHOLOGIST. I reviewed the midlevel provider 's note and agree with the documented findings, medical decision making, and plan of care. 76-year-old male who is well known to me presents to the emergency department tonight complaining of increased shortness of breath and some left-sided chest pain which started about midnight tonight. No radiation of the pain. No cough or fever. Patient has a history of CHF. Also coronary artery disease. On examination patient is a well-developed well-nourished well-appearing elderly male in no acute distress. He is alert and oriented 3. There is no cyanosis or diaphoresis. Chest is nontender to palpation. Breath sounds are equal bilaterally with some bibasilar rales. No wheezes. Heart regular rate and rhythm. Abdomen soft and nontender with normal bowel sounds. Labs reviewed. BNP 10-8. Troponin normal. EKG shows an electronic ventricular pacemaker with totally paced rhythm. A shows: Pulmonary edema with right basilar atelectasis or pneumonia. The hospitalist, Dr. Pantoja, was consulted and accepted admission of the patient.
[2017-08-29 04:01] LABS: Basophils # 0.1 K/mcL (0.0-0.2); Basophils % 0.7 %; Eosinophils # 0.3 K/mcL (0.0-0.6); Eosinophils % 3.9 %; Hematocrit 46.4 % (37.5-50.1); Hemoglobin 15.3 g/dL (12.9-16.9); Immature Granulocytes % 0.3 % (0-4); Lymphocytes # 1.7 K/mcL (0.6-4.6); Lymphocytes % 18.8 %; Mean Corpuscular Hemoglobin 29.1 pg (28.0-33.3); Mean Corpuscular Volume 88.2 fL (83.0-100.0); Mean Platelet Volume 10.6 fL (9.4-12.4); Monocytes # 0.7 K/mcL (0.0-1.3); Monocytes % 7.9 %; Platelet Count 158 K/mcL (140-400); Red Blood Count 5.26 M/mcL (4.19-5.50); Red Cell Distribution Width 15.1 % (11.5-14.5); Segmented Neutrophils % 68.4 %
[2017-08-29 04:28] LABS: BUN/Creatinine Ratio 21 (6-26); Blood Urea Nitrogen 23 mg/dL (8-23); Calcium 10.1 mg/dL (8.6-10.3); Carbon Dioxide 28 mEq/L (23-29); Chloride 105 mEq/L (98-107); Glucose 130 mg/dL (70-105); Osmolality,Calculated 297 (280-300); Potassium 4.2 mEq/L (3.5-5.1); Sodium 141 mEq/L (136-145); eGFR For African Americans > 60 (> 60); eGFR For Non-African Americans > 60 (> 60)
[2017-08-29] MEDS: *HR* Heparin 5,000 UNIT/ML VIAL SQ SCH ×2 (05:50→17:59)
[2017-08-29] MEDS: *HR* Ticagrelor 90 MG TABLET PO SCH ×2 (09:26→20:09)
[2017-08-29] MEDS: Isosorbide MONOnitrate (24 HR) 60 MG TAB.ER.24H PO SCH (09:26)
[2017-08-29] MEDS: Furosemide 40 MG/4 ML VIAL IVP SCH ×2 (09:27→20:09)
[2017-08-29] MEDS: Aspirin Enteric Coated 81 MG Tablet PO SCH (09:27)
[2017-08-29] MEDS: Insulin LISPRO 300 UNITS/3 ML VIAL SQ SCH ×4 (09:27→20:09)
--- NOTE | 2017-08-29 10:08 | Electrocardiograph Report ---
[place] [id number] Test Date: 2017-08-29 Pat Name: Yue Pizarro Department: 102 Room: 3A15 Gender: M Funding Analyst: Corey : 1940 Requested By: [id number] Order Number: [id number] Reading MD: Seth Herrera Measurements Intervals [place] Rate: 76 P: 99 VT: 147 QRS: -55 QRSD: 199 T: 129 QT: 490 QTc: 520 Interpretive Statements ELECTRONIC VENTRICULAR PACEMAKER ABNORMAL RHYTHM ECG Electronically Signed On 08-29-2017 10:06:33 EDT by Seth Herrera
--- NOTE | 2017-08-29 10:54 | Internal Med Progress Note ---
Date of Encounter: 08/29/17 Time of Encounter: 10:30 - Assessment and plan (1) CHF exacerbation Current Visit: Yes Status: Acute Assessment and plan: Patient has history of CHF with LVEF 40%. Multiple prior admissions. Increase shortness of breath and leg swelling. Lab shows elevated BNP. Chest x-ray shows pulmonary edema. Consistent with CHF exacerbation. - Strict in and out - Lasix 40 mg IV twice a day - Weight daily - Fluid restriction diet - Continue home medication beta fuentes and TEE inhibitor Qualifiers: Heart failure type: systolic Qualified Code(s): I50.23 - Acute on chronic systolic (congestive) heart failure (2) Chest pain Current Visit: No Status: Acute Assessment and plan: Patient has history of CAD S/P stent and CABG. troponin I is negative. Left bundle branch block with paced ventricular rhythm on EKG. Last stress test on 04/15/2017 showed no evidence of perfusion defects. Basal to apical inferior wall and inferoseptum infarct was noted. His EKG was nondiagnostic. Will not pursue any workup inpatient but have patient follow up outpatient with his well shooter. Qualifiers: Chest pain type: precordial pain Qualified Code(s): R07.2 - Precordial pain (3) CAD (coronary artery disease) Current Visit: No Status: Chronic Assessment and plan: Patient has stent placed in last October. Continue DAPT, beta fuentes, statin, and imdur. Qualifiers: Coronary Disease-Associated Artery/Lesion type: bypass graft [place] vs. transplanted heart: [place] heart Associated angina: with stable angina Qualified Code(s): I25.708 - Atherosclerosis of coronary artery bypass graft(s) , unspecified, with other forms of angina pectoris (4) HTN (hypertension) Current Visit: No Status: Chronic Assessment and plan: Continue home medications Qualifiers: Hypertension type: essential hypertension Qualified Code(s): I10 - Essential (primary) hypertension (5) DM2 (diabetes mellitus, type 2) Current Visit: No Status: Chronic Assessment and plan: Place patient on Insulin sliding scale Qualifiers: Diabetes mellitus jail insulin use: without intermodal truck driver use Diabetes mellitus complication status: with circulatory complication Diabetes mellitus complication detail: with other circulatory complications Qualified Code(s): E11.59 - Type 2 diabetes mellitus with other circulatory complications (6) Paroxysmal a-fib Current Visit: No Status: Chronic Assessment and plan: Now paced rhythm. Heart rate is well controlled. Patient is not on anticoagulation because of previous hematuria. (7) DVT prophylaxis Current Visit: No Status: Acute Assessment and plan: Heparin subcutaneously. - Time Spent With Patient Total time spent is greater than 50% in coordination of care (as documented) at patient's floor/unit and/or counseling patient: 25 - 35 minutes - Subjective Interval history: Patient reports no interval changes in his dyspnea. No new symptoms reported. - Constitutional Vitals: Temp Pulse Resp BP Pulse Ox 97.4 F L 64 16 121/70 96 08/29/17 10:38 08/29/17 10:38 08/29/17 10:38 08/29/17 10:38 08/29/17 10:38 General appearance: Present: A&O X 3, no acute distress, answers questions appropriately Exam: Physical exam Gen: Comfortable, laying in bed, in no visible distress HEENT: Normocephalic, atraumatic. No conjunctival icterus. Moist oral mucosa. Neck: Supple Lungs: Clear to auscultation, no foreign sounds Heart: Normal S1-S2, no murmurs rubs or gallops Abdomen: Normoactive bowel sounds, no guarding rigidity or tenderness Extremities: No edema clubbing or cyanosis Neuro: Alert oriented 3, no focal deficits Skin: No skin lesions Internal Medicine: Result - Labs CBC & Chem 7: 08/29/17 03:48 08/29/17 03:48 Labs: Cardiac Enzymes 08/29/17 Range/Units 09:50 Troponin I 0.03 (< 0.04) ng/mL - ABG Interpretation ABG results: PT/INR, D-dimer PT 12.5 Seconds (9.4-12.1) H 08/29/17 01:38 Consult Discharge Plan - Plan Referrals: Lance Cronin MD [Primary Care Provider] -
[2017-08-29] MEDS: Acetaminophen 325 MG TABLET PO PRN (20:09)
[2017-08-30] MEDS: Acetaminophen 325 MG TABLET PO PRN ×2 (05:00→17:19)
[2017-08-30] MEDS: *HR* Heparin 5,000 UNIT/ML VIAL SQ SCH ×2 (05:00→17:18)
[2017-08-30 05:08] LABS: BUN/Creatinine Ratio 23 (6-26); Blood Urea Nitrogen 26 mg/dL (8-23); Calcium 9.7 mg/dL (8.6-10.3); Carbon Dioxide 24 mEq/L (23-29); Chloride 104 mEq/L (98-107); Glucose 103 mg/dL (70-105); Osmolality,Calculated 297 (280-300); Potassium 3.5 mEq/L (3.5-5.1); Sodium 141 mEq/L (136-145); eGFR For African Americans > 60 (> 60); eGFR For Non-African Americans > 60 (> 60)
[2017-08-30] MEDS: Furosemide 40 MG/4 ML VIAL IVP SCH ×2 (08:04→17:18)
[2017-08-30] MEDS: *HR* Ticagrelor 90 MG TABLET PO SCH ×2 (08:05→21:01)
[2017-08-30] MEDS: Aspirin Enteric Coated 81 MG Tablet PO SCH (08:05)
[2017-08-30] MEDS: Isosorbide MONOnitrate (24 HR) 60 MG TAB.ER.24H PO SCH (08:05)
[2017-08-30] MEDS: Insulin LISPRO 300 UNITS/3 ML VIAL SQ SCH ×4 (08:05→20:59)
--- NOTE | 2017-08-30 10:46 | Internal Med Progress Note ---
Date of Encounter: 08/30/17 Time of Encounter: 10:00 - Assessment and plan (1) CHF exacerbation Current Visit: Yes Status: Acute Assessment and plan: Patient has history of CHF with LVEF 40%. Multiple prior admissions. Increase shortness of breath and leg swelling. Lab shows elevated BNP. Chest x-ray shows pulmonary edema. Consistent with CHF exacerbation. - Strict in and out - Lasix 40 mg IV twice a day - Weight daily - Fluid restriction diet - Continue home medication beta fuentes and TEE inhibitor (2) Chest pain Current Visit: No Status: Acute Assessment and plan: Patient has history of CAD S/P stent and CABG. troponin I is negative. Left bundle branch block with paced ventricular rhythm on EKG. Last stress test on 04/15/2017 showed no evidence of perfusion defects. Basal to apical inferior wall and inferoseptum infarct was noted. His EKG was nondiagnostic. Will not pursue any workup inpatient but have patient follow up outpatient with his strike out machine operator. Qualifiers: Chest pain type: precordial pain Qualified Code(s): R07.2 - Precordial pain (3) CAD (coronary artery disease) Current Visit: No Status: Chronic Assessment and plan: Patient has stent placed in last October. Continue DAPT, beta fuentes, statin, and imdur. Qualifiers: Coronary Disease-Associated Artery/Lesion type: bypass graft [place] vs. transplanted heart: [place] heart Associated angina: with stable angina Qualified Code(s): I25.708 - Atherosclerosis of coronary artery bypass graft(s) , unspecified, with other forms of angina pectoris (4) HTN (hypertension) Current Visit: No Status: Chronic Assessment and plan: Continue home medications Qualifiers: Hypertension type: essential hypertension Qualified Code(s): I10 - Essential (primary) hypertension (5) DM2 (diabetes mellitus, type 2) Current Visit: No Status: Chronic Assessment and plan: Place patient on Insulin sliding scale Qualifiers: Diabetes mellitus bank officer insulin use: without fpc use Diabetes mellitus complication status: with circulatory complication Diabetes mellitus complication detail: with other circulatory complications Qualified Code(s): E11.59 - Type 2 diabetes mellitus with other circulatory complications (6) Paroxysmal a-fib Current Visit: No Status: Chronic Assessment and plan: Now paced rhythm. Heart rate is well controlled. Patient is not on anticoagulation because of previous hematuria. (7) DVT prophylaxis Current Visit: No Status: Acute Assessment and plan: Heparin subcutaneously. - Time Spent With Patient Total time spent is greater than 50% in coordination of care (as documented) at patient's floor/unit and/or counseling patient: 25 - 35 minutes - Subjective Interval history: Patient reports no interval changes in his dyspnea. No new symptoms reported. - Constitutional Vitals: Temp Pulse Resp BP Pulse Ox 97.8 F 67 16 128/68 95 08/30/17 06:50 08/30/17 06:50 08/30/17 06:50 08/30/17 06:50 08/30/17 06:50 Exam: Physical exam Gen: Comfortable, laying in bed, in no visible distress HEENT: Normocephalic, atraumatic. No conjunctival icterus. Moist oral mucosa. Neck: Supple Lungs: Clear to auscultation, no foreign sounds Heart: Normal S1-S2, no murmurs rubs or gallops Abdomen: Normoactive bowel sounds, no guarding rigidity or tenderness Extremities: No edema clubbing or cyanosis Neuro: Alert oriented 3, no focal deficits Skin: No skin lesions Internal Medicine: Result - Labs CBC & Chem 7: 08/29/17 03:48 08/30/17 04:23 Labs: BMP 08/30/17 04:23 Sodium 141 Potassium 3.5 Chloride 104 Carbon Dioxide 24 BUN 26 H Creatinine 1.13 Glucose 103 Calcium 9.7 - ABG Interpretation ABG results: PT/INR, D-dimer PT 12.5 Seconds (9.4-12.1) H 08/29/17 01:38 Consult Discharge Plan - Plan Referrals: Lance Cronin MD [Primary Care Provider] -
[2017-08-31 04:34] LABS: Basophils # 0.1 K/mcL (0.0-0.2); Basophils % 0.6 %; Eosinophils # 0.5 K/mcL (0.0-0.6); Eosinophils % 6.2 %; Hematocrit 45.6 % (37.5-50.1); Hemoglobin 15.5 g/dL (12.9-16.9); Immature Granulocytes % 0.4 % (0-4); Lymphocytes # 1.4 K/mcL (0.6-4.6); Lymphocytes % 17.6 %; Mean Corpuscular Hemoglobin 29.4 pg (28.0-33.3); Mean Corpuscular Volume 86.4 fL (83.0-100.0); Mean Platelet Volume 10.6 fL (9.4-12.4); Monocytes # 0.8 K/mcL (0.0-1.3); Monocytes % 9.6 %; Neutrophils # 5.4 K/mcL (1.6-8.9); Platelet Count 163 K/mcL (140-400); Red Blood Count 5.28 M/mcL (4.19-5.50); Red Cell Distribution Width 14.7 % (11.5-14.5); Segmented Neutrophils % 65.6 %
[2017-08-31 04:50] LABS: BUN/Creatinine Ratio 26 (6-26); Blood Urea Nitrogen 30 mg/dL (8-23); Calcium 9.9 mg/dL (8.6-10.3); Carbon Dioxide 25 mEq/L (23-29); Chloride 103 mEq/L (98-107); Glucose 114 mg/dL (70-105); Magnesium 2.1 mg/dL (1.6-2.6); Osmolality,Calculated 297 (280-300); Potassium 3.8 mEq/L (3.5-5.1); Sodium 140 mEq/L (136-145); eGFR For African Americans > 60 (> 60); eGFR For Non-African Americans > 60 (> 60)
[2017-08-31] MEDS: Acetaminophen 325 MG TABLET PO PRN (06:08)
[2017-08-31] MEDS: *HR* Heparin 5,000 UNIT/ML VIAL SQ SCH ×2 (06:08→17:08)
[2017-08-31] MEDS: Insulin LISPRO 300 UNITS/3 ML VIAL SQ SCH ×4 (07:39→21:12)
[2017-08-31] MEDS: Aspirin Enteric Coated 81 MG Tablet PO SCH (08:31)
[2017-08-31] MEDS: *HR* Ticagrelor 90 MG TABLET PO SCH ×2 (08:31→21:14)
[2017-08-31] MEDS: Furosemide 40 MG/4 ML VIAL IVP SCH (08:32)
[2017-08-31] MEDS: Isosorbide MONOnitrate (24 HR) 60 MG TAB.ER.24H PO SCH (08:32)
--- NOTE | 2017-08-31 12:14 | Internal Med Progress Note ---
Date of Encounter: 08/31/17 Time of Encounter: 10:00 - Assessment and plan (1) CHF exacerbation Current Visit: Yes Status: Acute Assessment and plan: Patient has history of CHF with LVEF 40%. Multiple prior admissions. Increase shortness of breath and leg swelling. Lab shows elevated BNP. Chest x-ray shows pulmonary edema. Consistent with CHF exacerbation. - Strict in and out - Lasix 40 mg IV twice a day. Change to oral today. - Weight daily - Fluid restriction diet - Continue home medication beta fuentes and TEE inhibitor Likely discharge tomorrow (2) Chest pain Current Visit: No Status: Acute Assessment and plan: Patient has history of CAD S/P stent and CABG. troponin I is negative. Left bundle branch block with paced ventricular rhythm on EKG. Last stress test on 04/15/2017 showed no evidence of perfusion defects. Basal to apical inferior wall and inferoseptum infarct was noted. His EKG was nondiagnostic. Will not pursue any workup inpatient but have patient follow up outpatient with his regional economist. Qualifiers: Chest pain type: precordial pain Qualified Code(s): R07.2 - Precordial pain (3) CAD (coronary artery disease) Current Visit: No Status: Chronic Assessment and plan: Patient has stent placed in last October. Continue DAPT, beta fuentes, statin, and imdur. Qualifiers: Coronary Disease-Associated Artery/Lesion type: bypass graft [place] vs. transplanted heart: [place] heart Associated angina: with stable angina Qualified Code(s): I25.708 - Atherosclerosis of coronary artery bypass graft(s) , unspecified, with other forms of angina pectoris (4) HTN (hypertension) Current Visit: No Status: Chronic Assessment and plan: Continue home medications Qualifiers: Hypertension type: essential hypertension Qualified Code(s): I10 - Essential (primary) hypertension (5) DM2 (diabetes mellitus, type 2) Current Visit: No Status: Chronic Assessment and plan: Place patient on Insulin sliding scale Qualifiers: Diabetes mellitus telehealth director insulin use: without telehealth director use Diabetes mellitus complication status: with circulatory complication Diabetes mellitus complication detail: with other circulatory complications Qualified Code(s): E11.59 - Type 2 diabetes mellitus with other circulatory complications (6) Paroxysmal a-fib Current Visit: No Status: Chronic Assessment and plan: Now paced rhythm. Heart rate is well controlled. Patient is not on anticoagulation because of previous hematuria. (7) DVT prophylaxis Current Visit: No Status: Acute Assessment and plan: Heparin subcutaneously. - Time Spent With Patient Total time spent is greater than 50% in coordination of care (as documented) at patient's floor/unit and/or counseling patient: 25 - 35 minutes - Subjective Interval history: Dyspnea is improved. No new symptoms. He is off oxygen. No events overnight. - Constitutional Vitals: Temp Pulse Resp BP Pulse Ox 97.5 F L 70 18 102/64 95 08/31/17 11:15 08/31/17 11:15 08/31/17 11:15 08/31/17 11:15 08/31/17 11:15 Exam: Physical exam Gen: Comfortable, laying in bed, in no visible distress HEENT: Normocephalic, atraumatic. No conjunctival icterus. Moist oral mucosa. Neck: Supple Lungs: Clear to auscultation, bilateral crackles Heart: Normal S1-S2, no murmurs rubs or gallops Abdomen: Normoactive bowel sounds, no guarding rigidity or tenderness Extremities: No edema clubbing or cyanosis Neuro: Alert oriented 3, no focal deficits Skin: No skin lesions Internal Medicine: Result - Labs CBC & Chem 7: 08/31/17 04:00 08/31/17 04:00 Labs: Short CBC 08/31/17 Range/Units 04:00 WBC 8.2 (4.3-11.1) K/mcL Hgb 15.5 (12.9-16.9) g/dL Hct 45.6 (37.5-50.1) % Plt Count 163 (140-400) K/mcL Neutrophils # 5.4 (1.6-8.9) K/mcL BMP 08/31/17 04:00 Sodium 140 Potassium 3.8 Chloride 103 Carbon Dioxide 25 BUN 30 H Creatinine 1.14 Glucose 114 H Calcium 9.9 - ABG Interpretation ABG results: PT/INR, D-dimer PT 12.5 Seconds (9.4-12.1) H 08/29/17 01:38 Consult Discharge Plan - Plan Referrals: Lance Cronin MD [Primary Care Provider] - 09/02/17 10:15 am
[2017-08-31] MEDS: Furosemide 40 MG TABLET PO SCH (17:08)
--- NOTE | 2017-09-01 00:25 | Discharge Summary ---
- NOTES TO OUTPATIENT PROVIDER Notes to Outpatient Provider: Follow up with cardiology within 4 weeks. Orders not resulted at time of discharge: Pending orders 09/01/17 04:00 BMP [Basic Metabolic Panel] AM 0400 Magnesium AM 0400 Date of Encounter: 09/01/17 Time of Encounter: 08:00 - Discharge Diagnosis (1) CHF exacerbation Priority: Primary Status: Acute Assessment and Plan: Patient has history of CHF with LVEF 40%. Multiple prior admissions. Increase shortness of breath and leg swelling. Lab shows elevated BNP. Chest x-ray shows pulmonary edema. Consistent with CHF exacerbation. - Resume home Lasix - Weight daily - Fluid restriction diet controlled - Continue home medication beta fuentes and TEE inhibitor - Follow up in heart failure clinic Qualifiers: Heart failure type: systolic Qualified Code(s): I50.23 - Acute on chronic systolic (congestive) heart failure (2) Chest pain Priority: Primary Status: Acute Assessment and Plan: Patient has history of CAD S/P stent and CABG. troponin I is negative. Left bundle branch block with paced ventricular rhythm on EKG. Last stress test on 04/15/2017 showed no evidence of perfusion defects. Basal to apical inferior wall and inferoseptum infarct was noted. His EKG was nondiagnostic. Will not pursue any workup inpatient but have patient follow up outpatient with his gold prospector. Qualifiers: Chest pain type: precordial pain Qualified Code(s): R07.2 - Precordial pain (3) CAD (coronary artery disease) Priority: Secondary Status: Chronic Assessment and Plan: Patient has stent placed in last October. Continue DAPT, beta fuentes, statin, and imdur. Qualifiers: Coronary Disease-Associated Artery/Lesion type: bypass graft [place] vs. transplanted heart: [place] heart Associated angina: with stable angina Qualified Code(s): I25.708 - Atherosclerosis of coronary artery bypass graft(s) , unspecified, with other forms of angina pectoris (4) HTN (hypertension) Priority: Secondary Status: Chronic Assessment and Plan: Continue home medications Qualifiers: Hypertension type: essential hypertension Qualified Code(s): I10 - Essential (primary) hypertension (5) DM2 (diabetes mellitus, type 2) Priority: Secondary Status: Chronic Assessment and Plan: Resume home regimen Qualifiers: Diabetes mellitus care home insulin use: without care home use Diabetes mellitus complication status: with circulatory complication Diabetes mellitus complication detail: with other circulatory complications Qualified Code(s): E11.59 - Type 2 diabetes mellitus with other circulatory complications (6) Paroxysmal a-fib Priority: Secondary Status: Chronic Assessment and Plan: Now paced rhythm. Heart rate is well controlled. Patient is not on anticoagulation because of previous hematuria. As noted in previous cardiology notes: -Not on anticoagulation due ot history of hematuria while on anticoagulation. -[id number] score 7 (age, HTN, CHF, vascular disease, hx CVA). Pateint is aware of increased risk of CVA and refuses anticoagulation. Hospital course: Mr. Pizarro is a 76 year old male with prior medical history of systolic congestive heart failure ejection fraction 40%, atrial fibrillation, coronary artery disease, documented asthma, diabetes, hypertension, hypothyroidism who presented to the emergency room on 08/29/2017 with progressive shortness of breath and chest pain. Patient is noncompliant to restriction and has had multiple admissions for heart failure exacerbation. In emergency room, he was found to have a BNP of 1028. Chest x-ray was suggestive for edema. He was started on intravenous diuresis and afterload reduction with nitroglycerin. He was admitted to the medical floor and observed over the next 3 days. He responded well to intravenous diuresis and was transitioned to oral diuresis. His heart failure medications including beta blockers and TEE inhibitor spell continued during the course of the stay. There were no other complications. No additional cardiovascular workup was pursued. He will follow-up with his gold prospector within the next 4 weeks. Discharge discussed with: patient - Time Spent with Patient Total time spent providing and/or coordinating discharge services: Greater than 30 minutes - Discharge Medications Home Medications: Aspirin [Lo-Dose Aspirin EC] 81 mg PO DAILY 08/10/17 [History] Atorvastatin [Lipitor] 40 mg PO HS 08/10/17 [History] Carvedilol 3.125 mg PO BID 08/10/17 [History] Cinnamon Bark [Cinnamon] 500 mg PO DAILY 08/10/17 [History] Furosemide [Lasix] 40 mg PO BID 08/10/17 [History] Isosorbide MONOnitrate [Isosorbide Mononitrate ER] 120 mg PO DAILY 08/10/17 [ History] Lisinopril 2.5 mg PO DAILY 08/10/17 [History] Metformin HCl 500 mg PO BID 08/10/17 [History] Nitroglycerin [Nitrostat] 0.4 mg SL Q5M PRN 08/10/17 [History] [place]-3/Dha/Epa/Fish Oil [Fish Oil 1,000 mg Softgel] 1 cap PO DAILY 08/10/17 [ History] Potassium Chloride [K-Tab ER] 10 meq PO DAILY 08/10/17 [History] Ticagrelor [Brilinta] 90 mg PO BID 08/10/17 [History] Ubidecarenone/Vit E/Vit E Mix [Co-Enzyme Q10 100 mg Softgel] 1 cap PO DAILY [History] Acetaminophen [Tylenol] 650 mg PO Q6HR PRN tablet 09/01/17 [Rx] Allergies/Adverse Reactions: 3 Allergy/AdvReac Type Severity Reaction Status Date / Time Oxycodone [From Percocet] Allergy Hives Verified 08/29/17 01:30 tramadol Allergy Hives Verified 08/29/17 01:30 Date of admission: 08/29/17 04:06 Primary care physician: Lance Cronin MD Consults: 08/30/17 08:26 Consult to Nurse Navigator [CONS] Routine Comment: chf education Discharging clinician: Taylor Helms Anticipated date of discharge: 09/01/17 - Constitutional Vitals: Temp Pulse Resp BP Pulse Ox 97.8 F 74 18 110/61 95 08/31/17 18:59 08/31/17 18:59 08/31/17 18:59 08/31/17 18:59 08/31/17 18:59 Exam: Physical exam Gen: Comfortable, laying in bed, in no visible distress HEENT: Normocephalic, atraumatic. No conjunctival icterus. Moist oral mucosa. Neck: Supple Lungs: Clear to auscultation, bilateral crackles Heart: Normal S1-S2, no murmurs rubs or gallops Abdomen: Normoactive bowel sounds, no guarding rigidity or tenderness Extremities: No edema clubbing or cyanosis Neuro: Alert oriented 3, no focal deficits Skin: No skin lesions - Patient Status Disposition: Home, Self-Care Condition: Good Functional capacity at discharge: independent ambulation Overall status at discharge: patient is back to baseline - Ambulatory Orders Ambulatory Orders: Basic Metabolic Panel [CHEM] Time Frame: 1 Week, Facility: [facility], Location: Lab Magnesium [CHEM] Time Frame: 1 Week, Facility: [facility], Location: Lab - Discharge Instructions Follow Up With: Lance Cronin MD [Primary Care Provider] - 09/02/17 10:15 am Odalis Garcia DO [Partnered Physician] - Additional Instructions: Cardiology follow-up within 4 weeks - Diet and Activity Activity: resume usual activities as tolerated Diet: low fat, low cholesterol, low salt diet
[2017-09-01] MEDS: Acetaminophen 325 MG TABLET PO PRN (02:24)
[2017-09-01] MEDS: *HR* Heparin 5,000 UNIT/ML VIAL SQ SCH (05:52)
[2017-09-01 07:03] VITALS: BP 133/81
[2017-09-01 07:22] LABS: BUN/Creatinine Ratio 23 (6-26); Blood Urea Nitrogen 29 mg/dL (8-23); Calcium 10.1 mg/dL (8.6-10.3); Carbon Dioxide 26 mEq/L (23-29); Chloride 102 mEq/L (98-107); Glucose 130 mg/dL (70-105); Magnesium 2.1 mg/dL (1.6-2.6); Osmolality,Calculated 296 (280-300); Potassium 3.9 mEq/L (3.5-5.1); Sodium 139 mEq/L (136-145); eGFR For African Americans > 60 (> 60); eGFR For Non-African Americans 56 (> 60)
[2017-09-01] MEDS: Insulin LISPRO 300 UNITS/3 ML VIAL SQ SCH (09:55)
[2017-09-01] MEDS: *HR* Ticagrelor 90 MG TABLET PO SCH (09:56)
[2017-09-01] MEDS: Isosorbide MONOnitrate (24 HR) 60 MG TAB.ER.24H PO SCH (09:56)
[2017-09-01] MEDS: Aspirin Enteric Coated 81 MG Tablet PO SCH (09:56)
[2017-09-01] MEDS: Furosemide 40 MG TABLET PO SCH (09:56)
== END 2017-09-01 12:16 | disposition home or self-care (01) | DRG 292 ==
LOC: EMEROO 01:28 → 3ANU 04:06
PROVIDERS: ADMIT Internal Medicine; ATTEND Internal Medicine

== ENCOUNTER 2017-09-01 14:47 | Observation (INO) ==
--- NOTE | 2017-09-01 15:02 | Emergency Department Note ---
Disposition Clinical Impression: Dehydration, DARLYN (acute kidney injury), Near syncope Disposition: Admitted As Inpatient Condition: Undetermined Referrals: Lance Cronin MD [Primary Care Provider] - Forms: ED Satisfaction Letter Time of Disposition: 16:23 Syncope HPI - General Chief Complaint: ED Syncope Stated Complaint: fall Time Seen by Provider: 09/01/17 14:52 Source: patient, EMS Mode of arrival: EMS Limitations: no limitations Nursing Notes Reviewed: Yes Vital Signs Reviewed: Yes - History of Present Illness HPI Narrative: 76-year-old male with history of CAD, hypertension, hyperlipidemia, arrives to the emergency department after a dizzy episode while doing laundry with his . The patient had to sit down time. It was noted when EMS was called that his blood pressure was 70s systolic. The patient was given 250 mL of IV fluids. He is currently 120 systolic. He was also noted to initially be tachycardic in the 120s. The patient states he still expressing some dizziness and some shortness of breath but he states the shortness of breath is not new. Patient admits to continued abdominal discomfort as well but he says again this is not new. Patient denies any unilateral leg swelling, hemoptysis. He is resting comfortably in the room at this time. He denies any other complaints. Patient was discharged from the hospital this morning for CHF exacerbation. The patient was administered lasix for diuresis. - Related Data Home Medications Medication Instructions Recorded Confirmed Aspirin [Lo-Dose Aspirin EC] 81 mg PO DAILY 08/10/17 09/01/17 Atorvastatin [Lipitor] 40 mg PO HS 08/10/17 09/01/17 Carvedilol 3.125 mg PO BID 08/10/17 09/01/17 Cinnamon Bark [Cinnamon] 500 mg PO DAILY 08/10/17 09/01/17 Isosorbide MONOnitrate [Isosorbide 120 mg PO DAILY 08/10/17 09/01/17 Mononitrate ER] Lisinopril 2.5 mg PO DAILY 08/10/17 09/01/17 Metformin HCl 500 mg PO BID 08/10/17 09/01/17 Nitroglycerin [Nitrostat] 0.4 mg SL Q5M PRN 08/10/17 09/01/17 [place]-3/Dha/Epa/Fish Oil [Fish Oil 1 cap PO DAILY 08/10/17 09/01/17 1,000 mg Softgel] Potassium Chloride [K-Tab ER] 10 meq PO DAILY 08/10/17 09/01/17 Ticagrelor [Brilinta] 90 mg PO BID 08/10/17 09/01/17 Ubidecarenone/Vit E/Vit E Mix 1 cap PO DAILY 08/10/17 09/01/17 [Co-Enzyme Q10 100 mg Softgel] Furosemide [Lasix] 20 mg PO DAILY 09/01/17 09/01/17 Previous Rx's Medication Instructions Recorded Acetaminophen [Tylenol] 650 mg PO Q6HR PRN tablet 09/01/17 Allergies Allergy/AdvReac Type Severity Reaction Status Date / Time Oxycodone [From Percocet] Allergy Hives Verified 09/01/17 16:21 tramadol Allergy Hives Verified 09/01/17 16:21 All systems ED: reviewed and negative except as stated. Constitutional: Reports: weakness. Denies: fever, chills ENT ED: Denies: congestion Cardiovascular: Reports: chest pain, dyspnea on exertion, syncope. Denies: orthopnea, edema Respiratory: Reports: dyspnea. Denies: cough, wheezes Gastrointestinal: Reports: abdominal pain. Denies: nausea, vomiting, diarrhea, constipation Genitourinary: Denies: urgency, dysuria Musculoskeletal: Denies: back pain Integumentary: Denies: rash Neurological: Reports: weakness. Denies: headache Past Medical History - Past Medical History Attestation: Yes The following information was validated with the patient. Source: patient Medical history: Reports: asthma, atrial fibrillation, CHF, coronary artery disease, CVA, diabetes, hypertension, myocardial infarction, thyroid disease Surgical history: Reports: angioplasty/stent, cholecystectomy, coronary bypass ( CABG), pacemaker/AICD Psychiatric history: Reports: no psych history - Social History Smoking Status: Former smoker Smokeless Tobacco Status: No Alcohol use: Reports: none Drug use: Reports: none Physical Exam - General Limitations: no limitations General appearance: alert, in no apparent distress - Head Head exam: atraumatic, normocephalic, normal inspection - Eye Eye exam: Present: normal appearance, PERRL, EOMI - ENT ENT exam: normal exam, normal oropharynx, mucous membranes moist - Neck Neck exam: Present: normal inspection, full ROM, trachea midline - Chest Chest inspection: Present: normal inspection, symmetric chest wall rise - Respiratory Respiratory exam: Present: normal lung sounds bilaterally - Cardiovascular Cardiovascular exam: Present: regular rate, normal rhythm, normal heart sounds - Abdominal Exam Abdominal exam: Present: soft, Non-Tender. Absent: tenderness, distention, guarding, rebound, rigidity - Extremities Exam Extremities exam: Present: normal inspection, full ROM. Absent: tenderness, pedal edema - Neurological Exam Neurological exam: Present: alert, oriented X3 - Skin Skin exam: Present: warm, dry, intact, normal color Course Vital Signs Temperature 98.9 F 09/01/17 14:50 Pulse Rate 67 09/01/17 14:50 Respiratory Rate 14 09/01/17 14:50 Blood Pressure 97/73 09/01/17 14:50 O2 Sat by Pulse Oximetry 95 09/01/17 14:50 Temperature 98.9 F 09/01/17 14:50 Pulse Rate 70 09/01/17 15:31 Respiratory Rate 18 09/01/17 15:31 Blood Pressure 100/60 09/01/17 15:31 O2 Sat by Pulse Oximetry 96 09/01/17 15:31 Oxygen Delivery Oxygen Delivery Room Air Syncope - MDM Narrative Medical decision making narrative: Patient's workup in the emergency department demonstrates findings consistent with likely overdiuresis. The patient has an acute kidney injury with a creatinine of 1.39 up from this morning's labs at roughly 5 AM. The patient had low blood pressure with a systolic in the 90s upon first arrival. This blood pressure systolic has improved with IV fluids. The patient is resting comfortably at this time. The patient had a near syncopal episode and given his recent discharge from the hospital and diaphoresis, we will admit the patient to the hospital for further observation. Patient made aware and agrees to plan. No further questions or concerns noted at this time. Accepted by Dr. Greenfield. - Medical Records Medical records reviewed: Yes I reviewed the patient's medical records. - Lab Data Lab results reviewed: Yes I reviewed the patient's lab results. Result diagrams: 09/01/17 15:03 09/01/17 15:03 Lab Results 09/01/17 09/01/17 09/01/17 Range/Units 15:03 15:03 15:03 WBC 7.9 (4.3-11.1) K/mcL RBC 5.00 (4.19-5.50) M/mcL Hgb 14.7 (12.9-16.9) g/dL Hct 44.1 (37.5-50.1) % MCV 88.2 (83.0-100.0) fL MCH 29.4 (28.0-33.3) pg MCHC 33.3 (31.6-35.5) g/dL RDW 14.6 H (11.5-14.5) % Plt Count 181 (140-400) K/mcL MPV 10.3 (9.4-12.4) fL Immature Gran % 0.5 (0-4) % Seg Neutrophils % 69.8 % Lymphocytes % 14.1 % Monocytes % 9.8 % Eosinophils % 5.2 % Basophils % 0.6 % Neutrophils # 5.5 (1.6-8.9) K/mcL Lymphocytes # 1.1 (0.6-4.6) K/mcL Monocytes # 0.8 (0.0-1.3) K/mcL Eosinophils # 0.4 (0.0-0.6) K/mcL Basophils # 0.1 (0.0-0.2) K/mcL Sodium 139 (136-145) mEq/L Potassium 4.1 (3.5-5.1) mEq/L Chloride 105 (98-107) mEq/L Carbon Dioxide 23 (23-29) mEq/L BUN 30 H (8-23) mg/dL Creatinine 1.39 H (0.70-1.30) mg/dL Est GFR ( Amer) 60 (> 60) Est GFR (Non-Af Amer) 49 L (> 60) BUN/Creatinine Ratio 22 (6-26) Glucose 142 H (70-105) mg/dL Calculated Osmolality 297 (280-300) Calcium 9.5 (8.6-10.3) mg/dL Troponin I < 0.03 (< 0.04) ng/mL B-Natriuretic Peptide 183 H (Less than 100) pg/mL Ethyl Alcohol < 10 (Less than 10) mg/dL - Radiology Data Radiology results reviewed: Yes I reviewed the patient's radiology results. Chest X-Ray 09/01/17 14:53 IMPRESSION: Overall improvement of pulmonary edema and bilateral pleural effusions. D/ / 09/01/2017 15:59:43 Cassy Maharaj MD / earnold Interpreting Provider: Cassy Maharaj MD Head CT 09/01/17 14:53 IMPRESSION: No acute intracranial abnormality. D/ / Lc Patel MD / Lc Patel MD Interpreting Provider: Lc Patel MD - EKG Data EKG attestation: Yes I reviewed and interpreted this EKG. EKG results narrative: Heart rate 67 beats for minute. Electronic ventricular pacemaker. No ST elevation or ST depression noted.
--- NOTE | 2017-09-01 15:12 | Emergency Department Note ---
Disposition Clinical Impression: Dehydration, DARLYN (acute kidney injury), Near syncope Disposition: Admitted As Inpatient Condition: Undetermined Referrals: Lance Cronin MD [Primary Care Provider] - Forms: ED Satisfaction Letter General Adult HPI - General Chief complaint: ED Syncope Stated complaint: fall Time Seen by Provider: 09/01/17 14:52 Source: patient, EMS Mode of arrival: EMS Limitations: no limitations Nursing Notes Reviewed: Yes Vital Signs Reviewed: Yes - History of Present Illness Pain Scale: 4 - Related Data Home Medications Medication Instructions Recorded Confirmed Aspirin [Lo-Dose Aspirin EC] 81 mg PO DAILY 08/10/17 09/01/17 Atorvastatin [Lipitor] 40 mg PO HS 08/10/17 09/01/17 Carvedilol 3.125 mg PO BID 08/10/17 09/01/17 Cinnamon Bark [Cinnamon] 500 mg PO DAILY 08/10/17 09/01/17 Isosorbide MONOnitrate [Isosorbide 120 mg PO DAILY 08/10/17 09/01/17 Mononitrate ER] Lisinopril 2.5 mg PO DAILY 08/10/17 09/01/17 Metformin HCl 500 mg PO BID 08/10/17 09/01/17 Nitroglycerin [Nitrostat] 0.4 mg SL Q5M PRN 08/10/17 09/01/17 [place]-3/Dha/Epa/Fish Oil [Fish Oil 1 cap PO DAILY 08/10/17 09/01/17 1,000 mg Softgel] Potassium Chloride [K-Tab ER] 10 meq PO DAILY 08/10/17 09/01/17 Ticagrelor [Brilinta] 90 mg PO BID 08/10/17 09/01/17 Ubidecarenone/Vit E/Vit E Mix 1 cap PO DAILY 08/10/17 09/01/17 [Co-Enzyme Q10 100 mg Softgel] Furosemide [Lasix] 20 mg PO DAILY 09/01/17 09/01/17 Previous Rx's Medication Instructions Recorded Acetaminophen [Tylenol] 650 mg PO Q6HR PRN tablet 09/01/17 Allergies Allergy/AdvReac Type Severity Reaction Status Date / Time Oxycodone [From Percocet] Allergy Hives Verified 09/01/17 16:21 tramadol Allergy Hives Verified 09/01/17 16:21 Constitutional: Reports: weakness. Denies: fever, chills ENT ED: Denies: congestion Cardiovascular: Reports: chest pain, dyspnea on exertion, syncope. Denies: orthopnea, edema Respiratory: Reports: dyspnea. Denies: cough, wheezes Gastrointestinal: Reports: abdominal pain. Denies: nausea, vomiting, diarrhea, constipation Genitourinary: Denies: urgency, dysuria Musculoskeletal: Denies: back pain Integumentary: Denies: rash Neurological: Reports: weakness. Denies: headache Past Medical History - Past Medical History Medical history: Reports: asthma, atrial fibrillation, CHF, coronary artery disease, CVA, diabetes, hypertension, myocardial infarction, thyroid disease Surgical history: Reports: angioplasty/stent, cholecystectomy, coronary bypass ( CABG), pacemaker/AICD Psychiatric history: Reports: no psych history - Social History Smoking Status: Former smoker Smokeless Tobacco Status: No Alcohol use: Reports: none Drug use: Reports: none Physical Exam - General Limitations: no limitations General appearance: alert, in no apparent distress Course Vital Signs Temperature 98.9 F 09/01/17 14:50 Pulse Rate 67 09/01/17 14:50 Respiratory Rate 14 09/01/17 14:50 Blood Pressure 97/73 09/01/17 14:50 O2 Sat by Pulse Oximetry 95 09/01/17 14:50 Temperature 98.9 F 09/01/17 14:50 Pulse Rate 70 09/01/17 15:31 Respiratory Rate 18 09/01/17 15:31 Blood Pressure 100/60 09/01/17 15:31 O2 Sat by Pulse Oximetry 96 09/01/17 15:31 Oxygen Delivery Oxygen Delivery Room Air Medical Decision Making - [facility] Narrative Medical decision making narrative: Chest X-Ray 09/01/17 14:53 IMPRESSION: Overall improvement of pulmonary edema and bilateral pleural effusions. D/ / Cassy Maharaj MD / Cassy Maharaj MD Interpreting Provider: Cassy Maharaj MD 1640 hrs.: With the syncope and hypotension. Which responded to fluids. We will bring him back in the hospital. Hospitalist is agreement with plan as this patient. - Lab Data Result diagrams: 09/01/17 15:03 09/01/17 15:03 Lab Results 09/01/17 09/01/17 09/01/17 Range/Units 15:03 15:03 15:03 WBC 7.9 (4.3-11.1) K/mcL RBC 5.00 (4.19-5.50) M/mcL Hgb 14.7 (12.9-16.9) g/dL Hct 44.1 (37.5-50.1) % MCV 88.2 (83.0-100.0) fL MCH 29.4 (28.0-33.3) pg MCHC 33.3 (31.6-35.5) g/dL RDW 14.6 H (11.5-14.5) % Plt Count 181 (140-400) K/mcL MPV 10.3 (9.4-12.4) fL Immature Gran % 0.5 (0-4) % Seg Neutrophils % 69.8 % Lymphocytes % 14.1 % Monocytes % 9.8 % Eosinophils % 5.2 % Basophils % 0.6 % Neutrophils # 5.5 (1.6-8.9) K/mcL Lymphocytes # 1.1 (0.6-4.6) K/mcL Monocytes # 0.8 (0.0-1.3) K/mcL Eosinophils # 0.4 (0.0-0.6) K/mcL Basophils # 0.1 (0.0-0.2) K/mcL Sodium 139 (136-145) mEq/L Potassium 4.1 (3.5-5.1) mEq/L Chloride 105 (98-107) mEq/L Carbon Dioxide 23 (23-29) mEq/L BUN 30 H (8-23) mg/dL Creatinine 1.39 H (0.70-1.30) mg/dL Est GFR ( Amer) 60 (> 60) Est GFR (Non-Af Amer) 49 L (> 60) BUN/Creatinine Ratio 22 (6-26) Glucose 142 H (70-105) mg/dL Calculated Osmolality 297 (280-300) Calcium 9.5 (8.6-10.3) mg/dL Troponin I < 0.03 (< 0.04) ng/mL B-Natriuretic Peptide 183 H (Less than 100) pg/mL Ethyl Alcohol < 10 (Less than 10) mg/dL Attestation Statement - Attestation Attestation: This documentation is done with the assistance of Dragon dictation. Despite efforts made to ensure accuracy, there may be inaccuracies in steel post installer or spelling and typographical errors. I examined this patient and my medical decision-making was reviewed with the Resident Physician. I agree with the documented findings, disposition and treatment plan as described except to the extent set forth below. Patient seen and evaluated on arrival with Dr. Eldridge and myself, I agree with his evaluation management plan, supervise care the patient's stay. Patient is single episode at home. Denies any injury does have some pain in his left hand he was just discharged this morning after a workup for CHF. He has no other complaints this time. His blood pressure was low at the scene he is getting fluids here. Reviewing his medical records from and the patient was x-rays hand do a workup and he most likely will need readmission.
[2017-09-01 15:16] LABS: Basophils # 0.1 K/mcL (0.0-0.2); Basophils % 0.6 %; Eosinophils # 0.4 K/mcL (0.0-0.6); Eosinophils % 5.2 %; Hematocrit 44.1 % (37.5-50.1); Hemoglobin 14.7 g/dL (12.9-16.9); Immature Granulocytes % 0.5 % (0-4); Lymphocytes # 1.1 K/mcL (0.6-4.6); Lymphocytes % 14.1 %; Mean Corpuscular HGB Conc 33.3 g/dL (31.6-35.5); Mean Corpuscular Hemoglobin 29.4 pg (28.0-33.3); Mean Corpuscular Volume 88.2 fL (83.0-100.0); Mean Platelet Volume 10.3 fL (9.4-12.4); Monocytes # 0.8 K/mcL (0.0-1.3); Monocytes % 9.8 %; Neutrophils # 5.5 K/mcL (1.6-8.9); Platelet Count 181 K/mcL (140-400); Red Cell Distribution Width 14.6 % (11.5-14.5); Segmented Neutrophils % 69.8 %
[2017-09-01 15:37] LABS: Troponin I < 0.03 ng/mL (< 0.04)
[2017-09-01 15:39] LABS: BUN/Creatinine Ratio 22 (6-26); Blood Urea Nitrogen 30 mg/dL (8-23); Calcium 9.5 mg/dL (8.6-10.3); Carbon Dioxide 23 mEq/L (23-29); Chloride 105 mEq/L (98-107); Ethanol < 10 mg/dL (Less than 10); Glucose 142 mg/dL (70-105); Osmolality,Calculated 297 (280-300); Potassium 4.1 mEq/L (3.5-5.1); Sodium 139 mEq/L (136-145); eGFR For African Americans 60 (> 60); eGFR For Non-African Americans 49 (> 60)
--- NOTE | 2017-09-01 16:44 | Internal Med History&Physical ---
Date of Encounter: 09/01/17 Time of Encounter: 16:40 Internal Medicine - H&P: HPI Chief complaint: Syncope History of present illness: Mr. Pizarro is a 76 year old male prior medical history of systolic congestive heart failure ejection fraction 40%, atrial fibrillation, coronary artery disease, documented asthma, diabetes, hypertension, hypothyroidism who presents as a readmission for syncope. He was just discharged from the hospital to home today after being treated for CHF exacerbation and improved with IV diuretics. On returning home he was walking to the [employer] with his and had been well until when he got up from the chair, he subsequently developed dizziness described as a lightheadedness sensation before landing on the floor with trauma to the left wrist. He was immediately helped up by his and the manager [employer] and brought into the hospital. He declines wanting to go to a long term and feels that he could go home from this observation stay. At baseline he lives with his at home and is typically independent of any walking aids. EKG personally reviewed with rate 67, PVCs TTE 11/03/16 Impressions: LVEF 35-40%. Global LV systolic dysfunction with regional variations in the inferior wall. There is evidence of mild diastolic dysfunction of the left ventricle. Atypical septal motion. Normal RV size. Probably mild reduction in function. No significant valvular dysfunction. No pulmonary hypertension. Left Ventricular Wall Motion: Rest Echo Findings The apex, apical inferior, mid inferior, apical anterior, mid anterior, basal anterior, apical lateral, mid anterior lateral, basal anterior lateral, mid inferior lateral and basal inferior lateral mena were hypokinetic. The basal inferior wall was akinetic. The apical septal, mid inferior septal, basal inferior septal, mid anterior septal and basal anterior septal mena were dyskinetic. Findings: Study Quality * Technically adequate exam. ECG Findings * Sinus rhythm with BBB. Left Ventricle * Atypical septal motion consistent with post-operative status. * Probably mild increase in LV wall thickness. Measurement is not well obtained. * Mild left ventricular diastolic dysfunction. * LVEF 35-40%. Aorta * Normally sized aortic root. Aortic Valve * No aortic regurgitation. * Trileaflet aortic valve. * Normal aortic valve structure. * No aortic stenosis. Mitral Valve * Trace mitral regurgitation. * Normal mitral valve structure. * No mitral stenosis. Tricuspid Valve * Trace tricuspid regurgitation. * Normal tricuspid valve structure. * Estimated RA pressure is 3 mmHg. * Estimated RVSP is 17 mmHg. * No pulmonary hypertension. Pulmonic Valve * Pulmonic valve is not well visualized. * No pulmonic stenosis. * No pulmonic regurgitation. Pulmonary Artery * Pulmonary artery not well visualized. Right Ventricle * Normal RV size. Probably mild reduction in function. Left Atrium * Normal left atrial size. Right Atrium * Normal right atrial size. Pericardium * There is no pericardial effusion present. Interatrial Septum * No evidence of PFO by color Doppler. IVC * > 50% respiratory change * The IVC is not dilated. Device lead * A device lead was visualized in the right atrium and right ventricle. FINDINGS: BRAIN/VENTRICLES: There is no acute intracranial hemorrhage, mass effect or midline shift. No abnormal extra-axial fluid collection. The leonard-white differentiation is maintained without evidence of an acute infarct. There is prominence of the ventricles and sulci due to global parenchymal volume loss. There are nonspecific areas of hypoattenuation within the periventricular and subcortical white matter, which likely represent chronic microvascular ischemic change. Dense vascular calcifications are present, especially in the vertebral arteries. This appears stable. ORBITS: The visualized portion of the orbits demonstrate no acute abnormality. SINUSES: Mild mucosal thickening within the inferior left maxillary sinus is noted. Mild to moderate ethmoid sinus opacification. Mild sphenoid sinus mucosal thickening. SOFT TISSUES/SKULL: No acute abnormality of the visualized skull or soft tissues. CT/CT head/brain wo con IMPRESSION: No acute intracranial abnormality. FINDINGS: Patient is status post median sternotomy. Cardiac pacer is stable in positioning. Overall improvement of bilateral interstitial opacities and bibasilar opacities. Pleural effusions have also decreased in size. No pneumothorax. Osseous structures are stable. Stable cardiomediastinal silhouette. XR/XR chest 1V portable IMPRESSION: Overall improvement of pulmonary edema and bilateral pleural effusions. Past Med Surg Social Fam HX - Past Medical History Medical history: asthma, atrial fibrillation, CHF, coronary artery disease, CVA , diabetes, hypertension, myocardial infarction, thyroid disease Additional medical history: very hard of hearing Psychiatric history: no psych history - Past Surgical History Surgical History: angioplasty/stent, cholecystectomy, coronary bypass (CABG), pacemaker/AICD Additional surgical history: stent placement - Social History Smoking Status: Former smoker Smokeless Tobacco Status: No Alcohol use: none Drug use: none - Family History Grandfather Family Member Ethnicity: Non- Living Status: Hx Family Cardiac Disorders: Yes Mother Family Member Ethnicity: Non- Living Status: Hx Family Neurologic Disorders: Yes (CVA) Father Adopted: No Family Member Ethnicity: Non- Living Status: Hx Family Cardiac Disorders: No Hx Family Respiratory Disorders: No Hx Family Cancer: Yes (Unknown what type) Hx Family GI Disorders: No Hx Family Endocrine Disorder: No Hx Family Neuromuscular Disorders: No Hx Family Neurologic Disorders: No Hx Family HEENT Disorders: No Hx Family Autoimmune Disorders: No Internal Medicine - H&P: Meds Aspirin [Lo-Dose Aspirin EC] 81 mg PO DAILY 08/10/17 [History] Atorvastatin [Lipitor] 40 mg PO HS 08/10/17 [History] Carvedilol 3.125 mg PO BID 08/10/17 [History] Cinnamon Bark [Cinnamon] 500 mg PO DAILY 08/10/17 [History] Isosorbide MONOnitrate [Isosorbide Mononitrate ER] 120 mg PO DAILY 08/10/17 [ History] Lisinopril 2.5 mg PO DAILY 08/10/17 [History] Metformin HCl 500 mg PO BID 08/10/17 [History] Nitroglycerin [Nitrostat] 0.4 mg SL Q5M PRN 08/10/17 [History] Adams-3/Dha/Epa/Fish Oil [Fish Oil 1,000 mg Softgel] 1 cap PO DAILY 08/10/17 [ History] Potassium Chloride [K-Tab ER] 10 meq PO DAILY 08/10/17 [History] Ticagrelor [Brilinta] 90 mg PO BID 08/10/17 [History] Ubidecarenone/Vit E/Vit E Mix [Co-Enzyme Q10 100 mg Softgel] 1 cap PO DAILY [History] Acetaminophen [Tylenol] 650 mg PO Q6HR PRN tablet 09/01/17 [Rx] Furosemide [Lasix] 20 mg PO DAILY 09/01/17 [History] 3 Allergy/AdvReac Type Severity Reaction Status Date / Time Oxycodone [From Percocet] Allergy Hives Verified 09/01/17 16:21 tramadol Allergy Hives Verified 09/01/17 16:21 All Systems PM: A 10-system review of systems was performed and is negative for pertinent findings except as documented above in the HPI. Review of systems: ROS 14 point review of systems reviewed as best as possible given presentation. Pertinent positive or negative as per HPI or otherwise reviewed as negative - Constitutional Vitals: Temp Pulse Resp BP Pulse Ox 98.9 F 70 18 100/60 96 09/01/17 14:50 09/01/17 15:31 09/01/17 15:31 09/01/17 15:31 09/01/17 15:31 Exam: General - AAO x 3 Psych - Appropriate affect/speech. No agitation Eyes - ANUJA. Eye lids intact. No scleral icterus Neuro - No gross peripheral or central neuro deficits on inspection Heart - Pacer pocket. Sinus. RRR. S1 and S2 present. No added HS/murmurs appreciated. No elevated JVD appreciated. Lung - Adequate air entry b/l, No crackles/wheezes appreciated GI - Soft, non-tender. No hepatosplenomegaly/ascites. BS+ - No CVA/suprapubic tenderness or palpable bladder distension Skin - Intact. No rash/petechiae/ecchymosis. Warm extremities MSK - left wrist pain from trauma 2/2 fall Internal Med - H&P Results - Labs CBC & Chem 7: 09/01/17 15:03 09/01/17 15:03 Labs: Short CBC 09/01/17 Range/Units 15:03 WBC 7.9 (4.3-11.1) K/mcL Hgb 14.7 (12.9-16.9) g/dL Hct 44.1 (37.5-50.1) % Plt Count 181 (140-400) K/mcL Neutrophils # 5.5 (1.6-8.9) K/mcL BMP 09/01/17 15:03 Sodium 139 Potassium 4.1 Chloride 105 Carbon Dioxide 23 BUN 30 H Creatinine 1.39 H Glucose 142 H Calcium 9.5 Cardiac Enzymes 09/01/17 Range/Units 15:03 Troponin I < 0.03 (< 0.04) ng/mL - Impressions ITS Impressions Chest X-Ray 09/01/17 14:53 IMPRESSION: Overall improvement of pulmonary edema and bilateral pleural effusions. D/ /01/2017 15:59:43 Cassy Maharaj MD / earnold Interpreting Provider: Cassy Maharaj MD Head CT 09/01/17 14:53 IMPRESSION: No acute intracranial abnormality. D/ / cL Patel MD / Lc Patel MD Interpreting Provider: Lc Patel MD - Assessment and plan (1) Syncope and collapse Current Visit: Yes Status: Acute Assessment and plan: check orthostats hold lisinopril decrease imdur from 120 to 60mg QD ZHOU stockings Hold IVF given recent CHF admission PT/OT ambulate (2) Chronic CHF (congestive heart failure) Current Visit: Yes Status: Acute Assessment and plan: continue lasix add diamox IV due to mild contraction alkalosis Qualifiers: Heart failure type: systolic Qualified Code(s): I50.22 - Chronic systolic ( congestive) heart failure (3) DMII (diabetes mellitus, type 2) Current Visit: Yes Status: Acute Assessment and plan: continue metformin Qualifiers: Qualified Code(s): E11.9 - Type 2 diabetes mellitus without complications (4) HLD (hyperlipidemia) Current Visit: Yes Status: Acute Assessment and plan: continue statin Qualifiers: Hyperlipidemia type: mixed hyperlipidemia Qualified Code(s): E78.2 - Mixed hyperlipidemia (5) HTN (hypertension) Current Visit: Yes Status: Acute Assessment and plan: adjusting cardiac meds as tolerated Qualifiers: Hypertension type: essential hypertension Qualified Code(s): I10 - Essential (primary) hypertension - Time Spent With Patient Total time spent is greater than 50% in coordination of care (as documented) at patient's floor/unit and/or counseling patient:
[2017-09-01] MEDS ORDERED: Naloxone 0.4 MG/ML INJ IVP PRN (16:45)
[2017-09-01] MEDS: *HR* Metformin 500 MG TABLET PO SCH (18:14)
[2017-09-01] MEDS: *HR* Ticagrelor 90 MG TABLET PO SCH (20:12)
[2017-09-01] MEDS: Acetaminophen 325 MG TABLET PO PRN (20:21)
[2017-09-02] MEDS ORDERED: *HR* HYDROcodone/Acet 5/325 mg TABLET PO ONE (00:53)
[2017-09-02] MEDS: Acetaminophen 325 MG TABLET PO PRN ×2 (05:24→14:23)
[2017-09-02 06:21] LABS: BUN/Creatinine Ratio 27 (6-26); Blood Urea Nitrogen 30 mg/dL (8-23); Calcium 9.7 mg/dL (8.6-10.3); Carbon Dioxide 21 mEq/L (23-29); Chloride 106 mEq/L (98-107); Glucose 98 mg/dL (70-105); Osmolality,Calculated 292 (280-300); Potassium 3.7 mEq/L (3.5-5.1); Sodium 138 mEq/L (136-145); eGFR For African Americans > 60 (> 60); eGFR For Non-African Americans > 60 (> 60)
[2017-09-02] MEDS ORDERED: Isosorbide MONOnitrate (24 HR) 60 MG TAB.ER.24H PO SCH (09:00)
[2017-09-02] MEDS: *HR* Metformin 500 MG TABLET PO SCH ×2 (09:48→17:43)
[2017-09-02] MEDS: Furosemide 20 MG TABLET PO SCH (09:48)
[2017-09-02] MEDS: Aspirin Enteric Coated 81 MG Tablet PO SCH (09:48)
[2017-09-02] MEDS: Isosorbide MONOnitrate (24 HR) 60 MG TAB.ER.24H PO SCH (09:48)
[2017-09-02] MEDS: *HR* Ticagrelor 90 MG TABLET PO SCH ×2 (09:48→19:43)
[2017-09-02] MEDS: (Ubidecarenone/Vit E/Vit E Mix [Co-Enzyme Q10 100 Mg PO SCH (11:34)
--- NOTE | 2017-09-02 17:08 | Internal Med Progress Note ---
Date of Encounter: 09/02/17 Time of Encounter: 16:59 - Assessment and plan (1) Syncope and collapse Current Visit: Yes Status: Acute Assessment and plan: Presented following syncope and collapse Was recently here and treated for CHF, discharged home and returned the same day following syncopal event Orthostatic vitals negative, continue checking orthostatics daily Lisinopril is being held Imdur decreased from 120s to 60 Continue to wear ZHOU hose Patient not getting IVF due to recent admission for CHF PT/OT to follow throughout stay ambulate with assistance TTE 07/2017-LVEF 40%. Atypical septal motion consistent with paced rhythm. Indeterminate diastolic function. Normal right ventricular size with mild to moderate reduction in function. Mild mitral regurgitation. Mild-moderate tricuspid regurgitation. Mild pulmonic regurgitation. Mild pulmonary hypertension. There is a trivial pericardial effusion present. There is no echocardiographic evidence of tamponade. -Obtain bilateral carotid duplex (2) Chronic CHF (congestive heart failure) Current Visit: Yes Status: Acute Assessment and plan: Recent admission for CHF Chest x-ray this admission shows improvement in pulmonary edema continue lasix Monitor I&O and weight daily Qualifiers: Heart failure type: systolic Qualified Code(s): I50.22 - Chronic systolic ( congestive) heart failure (3) DMII (diabetes mellitus, type 2) Current Visit: Yes Status: Acute Assessment and plan: History of diabetes, continue metformin Qualifiers: Qualified Code(s): E11.9 - Type 2 diabetes mellitus without complications (4) HLD (hyperlipidemia) Current Visit: Yes Status: Acute Assessment and plan: Continue statin Qualifiers: Hyperlipidemia type: mixed hyperlipidemia Qualified Code(s): E78.2 - Mixed hyperlipidemia (5) HTN (hypertension) Current Visit: Yes Status: Acute Assessment and plan: History of hypertension. Blood pressure stable throughout the stay. No evidence of orthostasis. Continue Coreg, continue holding lisinopril Qualifiers: Hypertension type: essential hypertension Qualified Code(s): I10 - Essential (primary) hypertension - Time Spent With Patient Total time spent is greater than 50% in coordination of care (as documented) at patient's floor/unit and/or counseling patient: 25 - 35 minutes - Subjective Interval history: Patient seen and examined at bedside today. No acute changes overnight. No complaints this time - Constitutional Vitals: Temp Pulse Resp BP Pulse Ox 97.9 F 66 16 106/65 95 09/02/17 15:54 09/02/17 15:54 09/02/17 15:54 09/02/17 15:54 09/02/17 15:54 General appearance: Present: A&O X 3, answers questions appropriately - Head Head exam: Present: atraumatic, normocephalic - Eye Eye exam: Present: PERRL, conjuntiva pink, sclera anicteric Pupils: Present: PERRL - Neck Neck exam general surgery: Present: supple, trachea midline. Absent: lymphadenopathy - Respiratory Respiratory exam: Present: CTAB. Absent: accessory muscle use, rales, rhonchi, wheezes - Cardiovascular Cardiovascular exam: Present: RRR, +S1, +S2. Absent: diastolic murmur, gallop, rubs, systolic murmur - GI/Abdominal GI/Abdominal exam: Present: normal bowel sounds, soft, no peritoneal signs. Absent: distended, tenderness - Extremities Exam Extremities exam: Present: warm, radial pulses palpable and symmetrical. Absent : calf tenderness, cyanotic, pedal edema - Neurological Exam Neurological exam: Present: CN II-XII intact, oriented X3, no focal deficits. Absent: pronater drift, facial droop, speech deficit - Skin Skin exam: Present: dry, intact Internal Medicine: Result - Labs CBC & Chem 7: 09/01/17 15:03 09/02/17 05:40 Labs: BMP 09/02/17 05:40 Sodium 138 Potassium 3.7 Chloride 106 Carbon Dioxide 21 L BUN 30 H Creatinine 1.12 Glucose 98 Calcium 9.7 Consult Discharge Plan - Plan Referrals: Lance Cronin MD [Primary Care Provider] -
[2017-09-03] MEDS: Acetaminophen 325 MG TABLET PO PRN ×2 (02:42→12:36)
[2017-09-03 08:09] VITALS: BP 144/81
[2017-09-03] MEDS: Furosemide 20 MG TABLET PO SCH (08:37)
[2017-09-03] MEDS: *HR* Metformin 500 MG TABLET PO SCH (08:38)
[2017-09-03] MEDS: *HR* Ticagrelor 90 MG TABLET PO SCH (08:38)
[2017-09-03] MEDS: Aspirin Enteric Coated 81 MG Tablet PO SCH (08:38)
[2017-09-03] MEDS: Isosorbide MONOnitrate (24 HR) 60 MG TAB.ER.24H PO SCH (08:38)
--- NOTE | 2017-09-03 12:13 | Internal Med Progress Note ---
Date of Encounter: 09/03/17 Time of Encounter: 12:13 - Assessment and plan (1) Syncope and collapse Current Visit: Yes Status: Acute Assessment and plan: Presented following syncope and collapse while doing laundry Was recently here and treated for CHF, discharged home and returned the same day following syncopal event Orthostatic vitals negative to date 09/03/17, continue checking orthostatics BID Continue holding lisinopril Continue Imdur at current dose of 60 Patient to wear ZHOU hose at all times Not getting IVF due to recent admission for CHF PT/OT to follow throughout stay-recommend patient ambulation with assistive device, walker. Also, recommend patient discharged to SNF for rehabilitation This was D/W patient and significant other. Patient and significant other decline inpatient rehabilitation stay I do not feel a home health would be highly beneficial given his current situation. Patient at high risk for falls and additional injuries Continue falls risks ambulate with assistance Remain on telemetry Carotid Dopplers completed-preliminary results nonstenotic plaque located in the ICA bifurcation bilaterally TTE 07/2017-LVEF 40%. Atypical septal motion consistent with paced rhythm. Indeterminate diastolic function. Normal right ventricular size with mild to moderate reduction in function. Mild mitral regurgitation. Mild-moderate tricuspid regurgitation. Mild pulmonic regurgitation. Mild pulmonary hypertension. There is a trivial pericardial effusion present. There is no echocardiographic evidence of tamponade. -Obtain bilateral carotid duplex (2) Chronic CHF (congestive heart failure) Current Visit: Yes Status: Acute Assessment and plan: Recent admission for CHF Chest x-ray this admission shows improvement in pulmonary edema Patient on Lasix. Volume status net negative at -310 No signs of volume overload Lungs CTA AP and L, no extremity edema noted; patient's weight has improved Monitor I&O and weight daily Qualifiers: Heart failure type: systolic Qualified Code(s): I50.22 - Chronic systolic ( congestive) heart failure (3) DMII (diabetes mellitus, type 2) Current Visit: Yes Status: Acute Assessment and plan: History of diabetes, euglycemic, blood glucose 117 09/03/17 continue metformin Qualifiers: Qualified Code(s): E11.9 - Type 2 diabetes mellitus without complications (4) HLD (hyperlipidemia) Current Visit: Yes Status: Acute Assessment and plan: Continue statin Qualifiers: Hyperlipidemia type: mixed hyperlipidemia Qualified Code(s): E78.2 - Mixed hyperlipidemia (5) HTN (hypertension) Current Visit: Yes Status: Acute Assessment and plan: History of hypertension. Blood pressure stable throughout the stay 09/03/17 Continue Coreg, continue holding lisinopril Patient would likely benefit from discontinuation of lisinopril Should follow with PCP for further monitoring upon discharge Qualifiers: Hypertension type: essential hypertension Qualified Code(s): I10 - Essential (primary) hypertension - Time Spent With Patient Total time spent is greater than 50% in coordination of care (as documented) at patient's floor/unit and/or counseling patient: 25 - 35 minutes - Subjective Interval history: Patient seen and examined at bedside today. No acute changes overnight. Complaining of left rib and back pain - Constitutional Vitals: Temp Pulse Resp BP Pulse Ox 97.5 F L 62 18 144/81 99 09/03/17 08:08 09/03/17 08:08 09/03/17 08:08 09/03/17 08:08 09/03/17 08:08 General appearance: Present: A&O X 3, answers questions appropriately - Head Head exam: Present: atraumatic, normocephalic - Eye Eye exam: Present: PERRL, conjuntiva pink, sclera anicteric Pupils: Present: PERRL - Neck Neck exam general surgery: Present: supple, trachea midline. Absent: lymphadenopathy - Respiratory Respiratory exam: Present: chest wall tenderness (Left posterior distal chest wall pain), CTAB. Absent: accessory muscle use, rales, rhonchi, wheezes - Cardiovascular Cardiovascular exam: Present: RRR, +S1, +S2. Absent: diastolic murmur, gallop, rubs, systolic murmur - GI/Abdominal GI/Abdominal exam: Present: normal bowel sounds, soft, no peritoneal signs. Absent: distended, tenderness - Extremities Exam Extremities exam: Present: warm, radial pulses palpable and symmetrical. Absent : calf tenderness, cyanotic, pedal edema - Neurological Exam Neurological exam: Present: CN II-XII intact, oriented X3, no focal deficits. Absent: pronater drift, facial droop, speech deficit - Psychiatric Psychiatric exam: Present: agitated - Skin Skin exam: Present: dry, intact Internal Medicine: Result - Labs CBC & Chem 7: 09/01/17 15:03 09/02/17 05:40 Consult Discharge Plan - Plan Referrals: Lance Cronin MD [Primary Care Provider] -
[2017-09-03] MEDS: (Ubidecarenone/Vit E/Vit E Mix [Co-Enzyme Q10 100 Mg PO SCH (12:58)
--- NOTE | 2017-09-04 21:16 | Electrocardiograph Report ---
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
== END 2017-09-03 14:20 | disposition left against medical advice (07) ==
LOC: EMEROO 14:47 → 3BNU 14:47
PROVIDERS: ADMIT Family Medicine; ATTEND Family Medicine

== ENCOUNTER 2017-11-07 07:15 | Inpatient (IN) ==
--- NOTE | 2017-11-07 07:27 | Emergency Department Note ---
Disposition Clinical Impression: CHF (congestive heart failure) Qualifiers: Heart failure type: unspecified Heart failure chronicity: unspecified Qualified Code(s): I50.9 - Heart failure, unspecified Pulmonary edema Qualifiers: Chronicity: acute Qualified Code(s): J81.0 - Acute pulmonary edema Chest pain Qualifiers: Chest pain type: unspecified Qualified Code(s): R07.9 - Chest pain, unspecified Disposition: Admitted As Inpatient Condition: Good Referrals: Lance Cronin MD [Primary Care Provider] - Forms: ED Satisfaction Letter Time of Disposition: 08:58 General Adult HPI - General Stated complaint: SOB Time Seen by Provider: 11/07/17 07:23 Source: patient Mode of arrival: EMS Limitations: no limitations Nursing Notes Reviewed: Yes Vital Signs Reviewed: Yes - History of Present Illness HPI Narrative: 76-year-old male with a history of CAD presents for evaluation of dyspnea. Patient states he started feel short of breath for a midnight last night. Patient also states he had some intermittent chest pain. Located across his anterior part of his chest. No radiation symptoms. No fevers. No cough. Patient also noted some abdominal bloating. Patient denies any nausea vomiting or diaphoresis. Patient denies any lower leg swelling. No excessive weight gain. Patient denies history of smoking or COPD. Typically wears oxygen at night. Patient was brought in via EMS. - Related Data Home Medications Medication Instructions Recorded Confirmed Aspirin [Lo-Dose Aspirin EC] 81 mg PO DAILY 08/10/17 11/07/17 Atorvastatin [Lipitor] 40 mg PO HS 08/10/17 11/07/17 Carvedilol 3.125 mg PO BID 08/10/17 11/07/17 Cinnamon Bark [Cinnamon] 500 mg PO DAILY 08/10/17 11/07/17 Isosorbide MONOnitrate [Isosorbide 120 mg PO DAILY 08/10/17 11/07/17 Mononitrate ER] Lisinopril 2.5 mg PO DAILY 08/10/17 11/07/17 Nitroglycerin [Nitrostat] 0.4 mg SL Q5M PRN 08/10/17 11/07/17 [place]-3/Dha/Epa/Fish Oil [Fish Oil 1 cap PO DAILY 08/10/17 11/07/17 1,000 mg Softgel] Potassium Chloride [K-Tab ER] 10 meq PO DAILY 08/10/17 11/07/17 Ticagrelor [Brilinta] 90 mg PO BID 08/10/17 11/07/17 Furosemide [Lasix] 20 mg PO DAILY 09/01/17 11/07/17 Previous Rx's Medication Instructions Recorded Acetaminophen [Tylenol] 650 mg PO Q6HR PRN tablet 09/01/17 Allergies Allergy/AdvReac Type Severity Reaction Status Date / Time Oxycodone [From Percocet] Allergy Hives Verified 09/01/17 16:21 tramadol Allergy Hives Verified 09/01/17 16:21 All systems ED: reviewed and negative except as stated. Constitutional: Denies: fever Cardiovascular: Reports: chest pain Respiratory: Reports: dyspnea. Denies: cough Gastrointestinal: Denies: abdominal pain, nausea, vomiting Past Medical History - Past Medical History Source: patient Medical history: Reports: asthma, atrial fibrillation, CHF, coronary artery disease, CVA, diabetes, hypertension, myocardial infarction, thyroid disease Surgical history: Reports: angioplasty/stent, cholecystectomy, coronary bypass ( CABG), pacemaker/AICD Psychiatric history: Reports: no psych history - Social History Smoking Status: Former smoker Smokeless Tobacco Status: No Alcohol use: Reports: none Drug use: Reports: none Physical Exam - General Limitations: no limitations General appearance: alert, in no apparent distress - Head Head exam: atraumatic, normocephalic, normal inspection - Eye Eye exam: Present: normal appearance, PERRL, EOMI - ENT ENT exam: normal exam, mucous membranes moist - Neck Neck exam: Present: normal inspection, trachea midline - Chest Chest inspection: Present: normal inspection, symmetric chest wall rise - Respiratory Respiratory exam: Present: normal lung sounds bilaterally. Absent: respiratory distress - Cardiovascular Cardiovascular exam: Present: regular rate, normal rhythm - Abdominal Exam Abdominal exam: Present: soft, Non-Tender. Absent: distention, guarding, rebound - Extremities Exam Extremities exam: Present: normal inspection. Absent: pedal edema - Back Exam Back exam: Present: normal inspection - Neurological Exam Neurological exam: Present: alert, oriented X3 - Skin Skin exam: Present: warm, dry, intact, normal color Course Course Narrative: Patient presents for concerns of dyspnea. Patient does not appear to be in any acute distress. Vital stable. Patient was noted to be mildly hypertensive. Patient will get basic cardiopulmonary screening evaluation with EKG, chest x- ray including a troponin. Patient's abdomen is soft and does not appear acutely distended or tender. Patient's resting comfortably. Disposition pending. - Reevaluation(s) Reevaluation #1: Patient seen and examined. Patient is resting comfortably. Updated on plan of care. We will attempt to treat the patient as an outpatient for the pulmonary edema congestive heart failure. Will increase the dose of Lasix over the next 2 days. We will also attempt to contact the patient's PCP to arrange follow-up. Time: 08:46 Reevaluation #2: Patient seen and examined. Patient is complaining of persistent dyspnea and chest pain. Patient oxygen saturation is 91% on room air. Given the patient's continued dyspnea as well as chest pain the patient will be admitted to the hospital service for further evaluation and monitoring with diuresis. Time: 09:18 - Consultations Consultation #1: Discussed the patient's workup with the patient's primary care doctor Dr. Cronin who is agreeable with that plan of care. States that there is a nurse navigator that we will be in contact with the patient to arrange close follow- up. Time: 08:54 Vital Signs Temperature 98.1 F 11/07/17 07:21 Pulse Rate 84 11/07/17 07:21 Respiratory Rate 22 11/07/17 07:21 Blood Pressure 173/98 11/07/17 07:21 O2 Sat by Pulse Oximetry 94 11/07/17 07:21 Temperature 98.1 F 11/07/17 07:21 Pulse Rate 73 11/07/17 08:59 Respiratory Rate 20 11/07/17 08:59 Blood Pressure 185/115 11/07/17 08:59 O2 Sat by Pulse Oximetry 93 11/07/17 08:59 Oxygen Delivery Oxygen Delivery Room Air Medical Decision Making - MDM Narrative Medical decision making narrative: Patient presents with acute dyspnea started last night. Patient's ED evaluations consistent with mild pulmonary edema and signs of CHF. Patient does have an elevation in his BNP however is not significantly elevated. Chest x-ray does show symptoms consistent with pulmonary edema however the patient does not have any increased work of breathing and respiratory distress. Discussed, the patient's case with PCP with attempts to discharge patient home however on reevaluation the patient was continued to complain of chest discomfort. Patient is also more hypoxic with oxygen saturation of 91%. Patient will be admitted for congestive heart failure with gradual diuresis, supplemental oxygen therapy. - Medical Records Medical records reviewed: Yes I reviewed the patient's medical records. 07/2017 impressions: LVEF 40%. Atypical septal motion consistent with paced rhythm. Indeterminate diastolic function. Normal right ventricular size with mild to moderate reduction in function. Mild mitral regurgitation. Mild-moderate tricuspid regurgitation. Mild pulmonic regurgitation. Mild pulmonary hypertension. There is a trivial pericardial effusion present. There is no echocardiographic evidence of tamponade. - Lab Data Lab results reviewed: Yes I reviewed the patient's lab results. Result diagrams: 11/07/17 07:24 11/07/17 07:24 Lab Results 11/07/17 11/07/17 11/07/17 Range/Units 07:24 07:24 07:24 WBC 8.2 (4.3-11.1) K/mcL RBC 5.39 (4.19-5.50) M/mcL Hgb 16.3 (12.9-16.9) g/dL Hct 48.4 (37.5-50.1) % MCV 89.8 (83.0-100.0) fL MCH 30.2 (28.0-33.3) pg MCHC 33.7 (31.6-35.5) g/dL RDW 14.5 (11.5-14.5) % Plt Count 148 (140-400) K/mcL MPV 10.9 (9.4-12.4) fL Immature Gran % 0.2 (0-4) % Seg Neutrophils % 73.3 % Lymphocytes % 15.5 % Monocytes % 7.5 % Eosinophils % 2.8 % Basophils % 0.7 % Neutrophils # 6.0 (1.6-8.9) K/mcL Lymphocytes # 1.3 (0.6-4.6) K/mcL Monocytes # 0.6 (0.0-1.3) K/mcL Eosinophils # 0.2 (0.0-0.6) K/mcL Basophils # 0.1 (0.0-0.2) K/mcL Sodium 141 (136-145) mEq/L Potassium 4.2 (3.5-5.1) mEq/L Chloride 104 (98-107) mEq/L Carbon Dioxide 29 (23-29) mEq/L BUN 23 (8-23) mg/dL Creatinine 1.09 (0.70-1.30) mg/dL Est GFR ( Amer) > 60 (> 60) Est GFR (Non-Af Amer) > 60 (> 60) BUN/Creatinine Ratio 21 (6-26) Glucose 149 H (70-105) mg/dL Calculated Osmolality 298 (280-300) Calcium 9.9 (8.6-10.3) mg/dL Troponin I 0.03 (< 0.04) ng/mL B-Natriuretic Peptide 905 H (Less than 100) pg/mL - Radiology Data Radiology results reviewed: Yes I reviewed the patient's radiology results. Chest X-Ray 11/07/17 07:23 IMPRESSION: CHF with pulmonary edema. D/ / Jose Wilkes MD / Jose Wilkes MD Interpreting Provider: Jose Wilkes MD - EKG Data EKG #1 EKG attestation: Yes I reviewed and interpreted this EKG. EKG results narrative: AV paced rhythm Rate: normal Nuevo/QRS: left axis deviation Interpretation: no acute changes, unchanged when compared to prior tracing (date ), nonspecific ST-T wave changes S.B.A.R. - S.B.A.R. Situation: Demographics Background: Presenting Complaint Assessment: Vital Signs, Course and respsone to treatment, Patient/Family Expectation Recommendation: Barrier(s) to disposition, Recommendation based on pending studies, treatments, or consults S.B.A.R. Report Given to: Dr. De La Cruz S.B.A.RRasheeda Repor Time: 09:42
--- NOTE | 2017-11-07 07:31 | Emergency Department Note ---
Disposition Clinical Impression: CHF (congestive heart failure), Pulmonary edema, Chest pain Disposition: Admitted As Inpatient Condition: Good Referrals: Lance Cronin MD [Primary Care Provider] - Forms: ED Satisfaction Letter General Adult HPI - General Chief complaint: ED Shortness of Breath/Dyspnea Stated complaint: SOB Time Seen by Provider: 11/07/17 07:23 Source: patient, EMS Limitations: no limitations Nursing Notes Reviewed: Yes Vital Signs Reviewed: Yes - History of Present Illness Pain Scale: 5 - Related Data Home Medications Medication Instructions Recorded Confirmed Aspirin [Lo-Dose Aspirin EC] 81 mg PO DAILY 08/10/17 11/07/17 Atorvastatin [Lipitor] 40 mg PO HS 08/10/17 11/07/17 Carvedilol 3.125 mg PO BID 08/10/17 11/07/17 Cinnamon Bark [Cinnamon] 500 mg PO DAILY 08/10/17 11/07/17 Isosorbide MONOnitrate [Isosorbide 120 mg PO DAILY 08/10/17 11/07/17 Mononitrate ER] Lisinopril 2.5 mg PO DAILY 08/10/17 11/07/17 Nitroglycerin [Nitrostat] 0.4 mg SL Q5M PRN 08/10/17 11/07/17 [place]-3/Dha/Epa/Fish Oil [Fish Oil 1 cap PO DAILY 08/10/17 11/07/17 1,000 mg Softgel] Potassium Chloride [K-Tab ER] 10 meq PO DAILY 08/10/17 11/07/17 Ticagrelor [Brilinta] 90 mg PO BID 08/10/17 11/07/17 Furosemide [Lasix] 20 mg PO DAILY 09/01/17 11/07/17 Previous Rx's Medication Instructions Recorded Acetaminophen [Tylenol] 650 mg PO Q6HR PRN tablet 09/01/17 Allergies Allergy/AdvReac Type Severity Reaction Status Date / Time Oxycodone [From Percocet] Allergy Hives Verified 09/01/17 16:21 tramadol Allergy Hives Verified 09/01/17 16:21 Past Medical History - Past Medical History Medical history: Reports: asthma, atrial fibrillation, CHF, coronary artery disease, CVA, diabetes, hypertension, myocardial infarction, thyroid disease Surgical history: Reports: angioplasty/stent, cholecystectomy, coronary bypass ( CABG), pacemaker/AICD Psychiatric history: Reports: no psych history - Social History Smoking Status: Former smoker Smokeless Tobacco Status: No Alcohol use: Reports: none Drug use: Reports: none Physical Exam - General Limitations: no limitations General appearance: alert, in no apparent distress Course Vital Signs Temperature 98.1 F 11/07/17 07:21 Pulse Rate 84 11/07/17 07:21 Respiratory Rate 22 11/07/17 07:21 Blood Pressure 173/98 11/07/17 07:21 O2 Sat by Pulse Oximetry 94 11/07/17 07:21 Temperature 98.1 F 11/07/17 07:21 Pulse Rate 73 11/07/17 08:59 Respiratory Rate 20 11/07/17 08:59 Blood Pressure 185/115 11/07/17 08:59 O2 Sat by Pulse Oximetry 93 11/07/17 08:59 Oxygen Delivery Oxygen Delivery Room Air Medical Decision Making - MDM Narrative Medical decision making narrative: Chest X-Ray 11/07/17 07:23 IMPRESSION: CHF with pulmonary edema. D/ / Jose Wilkes MD / Jose Wilkes MD Interpreting Provider: Jose Wilkes MD 9:30 hours: Patient is a pulmonary edema on there are chest x-ray and he also has an elevated BNP. Rash started him on Lasix and bring him into the hospital. He is in agreement with plan. - Lab Data Result diagrams: 11/07/17 07:24 11/07/17 07:24 Lab Results 11/07/17 11/07/17 11/07/17 Range/Units 07:24 07:24 07:24 WBC 8.2 (4.3-11.1) K/mcL RBC 5.39 (4.19-5.50) M/mcL Hgb 16.3 (12.9-16.9) g/dL Hct 48.4 (37.5-50.1) % MCV 89.8 (83.0-100.0) fL MCH 30.2 (28.0-33.3) pg MCHC 33.7 (31.6-35.5) g/dL RDW 14.5 (11.5-14.5) % Plt Count 148 (140-400) K/mcL MPV 10.9 (9.4-12.4) fL Immature Gran % 0.2 (0-4) % Seg Neutrophils % 73.3 % Lymphocytes % 15.5 % Monocytes % 7.5 % Eosinophils % 2.8 % Basophils % 0.7 % Neutrophils # 6.0 (1.6-8.9) K/mcL Lymphocytes # 1.3 (0.6-4.6) K/mcL Monocytes # 0.6 (0.0-1.3) K/mcL Eosinophils # 0.2 (0.0-0.6) K/mcL Basophils # 0.1 (0.0-0.2) K/mcL Sodium 141 (136-145) mEq/L Potassium 4.2 (3.5-5.1) mEq/L Chloride 104 (98-107) mEq/L Carbon Dioxide 29 (23-29) mEq/L BUN 23 (8-23) mg/dL Creatinine 1.09 (0.70-1.30) mg/dL Est GFR ( Amer) > 60 (> 60) Est GFR (Non-Af Amer) > 60 (> 60) BUN/Creatinine Ratio 21 (6-26) Glucose 149 H (70-105) mg/dL Calculated Osmolality 298 (280-300) Calcium 9.9 (8.6-10.3) mg/dL Troponin I 0.03 (< 0.04) ng/mL B-Natriuretic Peptide 905 H (Less than 100) pg/mL Attestation Statement - Attestation Attestation: This documentation is done with the assistance of Dragon dictation. Despite efforts made to ensure accuracy, there may be inaccuracies in potato sorter or spelling and typographical errors. I examined this patient and my medical decision-making was reviewed with the Resident Physician. I agree with the documented findings, disposition and treatment plan as described except to the extent set forth below. Patient seen and evaluated on arrival with EMS and Dr. Floyd, I agree with his evaluation and management plan, supervise care the patient's stay. Patient presents today with dyspnea and fullness in his abdomen. History of ascites in the past. His abdomen does not seem to be bigger than usual. He is resting comfortably. We will order a workup on him here and then disposition which may be to home. He is in agreement this plan.
[2017-11-07 07:41] LABS: Basophils # 0.1 K/mcL (0.0-0.2); Basophils % 0.7 %; Eosinophils # 0.2 K/mcL (0.0-0.6); Eosinophils % 2.8 %; Hematocrit 48.4 % (37.5-50.1); Hemoglobin 16.3 g/dL (12.9-16.9); Immature Granulocytes % 0.2 % (0-4); Lymphocytes # 1.3 K/mcL (0.6-4.6); Lymphocytes % 15.5 %; Mean Corpuscular HGB Conc 33.7 g/dL (31.6-35.5); Mean Corpuscular Hemoglobin 30.2 pg (28.0-33.3); Mean Corpuscular Volume 89.8 fL (83.0-100.0); Mean Platelet Volume 10.9 fL (9.4-12.4); Monocytes # 0.6 K/mcL (0.0-1.3); Monocytes % 7.5 %; Platelet Count 148 K/mcL (140-400); Red Blood Count 5.39 M/mcL (4.19-5.50); Red Cell Distribution Width 14.5 % (11.5-14.5); Segmented Neutrophils % 73.3 %
[2017-11-07 08:01] LABS: BUN/Creatinine Ratio 21 (6-26); Blood Urea Nitrogen 23 mg/dL (8-23); Calcium 9.9 mg/dL (8.6-10.3); Carbon Dioxide 29 mEq/L (23-29); Chloride 104 mEq/L (98-107); Glucose 149 mg/dL (70-105); Osmolality,Calculated 298 (280-300); Potassium 4.2 mEq/L (3.5-5.1); Sodium 141 mEq/L (136-145); eGFR For Non-African Americans > 60 (> 60)
[2017-11-07 08:02] LABS: Troponin I 0.03 ng/mL (< 0.04)
[2017-11-07] MEDS ORDERED: Aspirin 325 MG TABLET PO ONE (08:46)
[2017-11-07] MEDS ORDERED: Furosemide 40 MG TABLET PO ONE (08:54)
[2017-11-07] MEDS ORDERED: Furosemide 40 MG TABLET PO SCH (09:00)
[2017-11-07] MEDS: Nitroglycerin 0.4 MG TAB.SUBL SL PRN ×3 (09:30→22:26)
[2017-11-07] MEDS ORDERED: Naloxone 0.4 MG/ML INJ IVP PRN (10:37)
[2017-11-07] MEDS ORDERED: Nitroglycerin 0.4 MG TAB.SUBL SL PRN (10:42)
--- NOTE | 2017-11-07 10:51 | Internal Med History&Physical ---
Date of Encounter: 11/07/17 Time of Encounter: 10:00 Internal Medicine - H&P: HPI Chief complaint: Chest pain and shortness of breath Admitted From: Home Plans for Post Hospital Care: Home History of present illness: Mr. Pizarro is a 76 year old male presented to ER for chest pain and shortness of breath. Past medical history is significant for diabetes on diet control, hypertension, CAD S/P CABG and stent, systolic CHF with LVEF 40%. Patient said started from midnight he has increased shortness of breath and chest pain. Chest pain located on mid chest, radiated to left shoulder. Patient denies nausea, vomiting, or diaphoresis. Patient has multiple hospitalization for CHF exacerbation and stated the chest pain and the shortness of breasts feeling is similar with previous CHF exacerbation. In the emergency room, EKG has been done, shows paced rhythm, no significant ST-T changes compared with previous EKG. First troponin negative. Chest x-ray shows pulmonary edema. Patient was given Lasix 40 mg IV once and nitroglycerin sublingual. His symptoms has improved after treatment. Patient was admitted for further monitoring and treatment. Patient has frequent readmission for CHF exacerbation. I believe he will stay more than 2 midnight this time for CHF exacerbation, to prevent further readmission. Will admit patient as inpatient. Past Med Surg Social Fam HX - Past Medical History Medical history: asthma, atrial fibrillation, CHF, coronary artery disease, CVA , diabetes, hypertension, myocardial infarction, thyroid disease Additional medical history: very hard of hearing Psychiatric history: no psych history - Past Surgical History Surgical History: angioplasty/stent, cholecystectomy, coronary bypass (CABG), pacemaker/AICD Additional surgical history: stent placement - Social History Smoking Status: Former smoker Smokeless Tobacco Status: No Alcohol use: none Drug use: none - Family History Grandfather Family Member Ethnicity: Non- Living Status: Hx Family Cardiac Disorders: Yes Mother Family Member Ethnicity: Non- Living Status: Hx Family Neurologic Disorders: Yes (CVA) Father Adopted: No Family Member Ethnicity: Non- Living Status: Hx Family Cardiac Disorders: No Hx Family Respiratory Disorders: No Hx Family Cancer: Yes (Unknown what type) Hx Family GI Disorders: No Hx Family Endocrine Disorder: No Hx Family Neuromuscular Disorders: No Hx Family Neurologic Disorders: No Hx Family HEENT Disorders: No Hx Family Autoimmune Disorders: No Internal Medicine - H&P: Meds Aspirin [Lo-Dose Aspirin EC] 81 mg PO DAILY 08/10/17 [History] Atorvastatin [Lipitor] 40 mg PO HS 08/10/17 [History] Carvedilol 3.125 mg PO BID 08/10/17 [History] Cinnamon Bark [Cinnamon] 500 mg PO DAILY 08/10/17 [History] Isosorbide MONOnitrate [Isosorbide Mononitrate ER] 120 mg PO DAILY 08/10/17 [ History] Lisinopril 2.5 mg PO DAILY 08/10/17 [History] Nitroglycerin [Nitrostat] 0.4 mg SL Q5M PRN 08/10/17 [History] [place]-3/Dha/Epa/Fish Oil [Fish Oil 1,000 mg Softgel] 1 cap PO DAILY 08/10/17 [ History] Potassium Chloride [K-Tab ER] 10 meq PO DAILY 08/10/17 [History] Ticagrelor [Brilinta] 90 mg PO BID 08/10/17 [History] Acetaminophen [Tylenol] 650 mg PO Q6HR PRN tablet 09/01/17 [Rx] Furosemide [Lasix] 20 mg PO DAILY 09/01/17 [History] 3 Allergy/AdvReac Type Severity Reaction Status Date / Time Oxycodone [From Percocet] Allergy Hives Verified 09/01/17 16:21 tramadol Allergy Hives Verified 09/01/17 16:21 All Systems PM: A 10-system review of systems was performed and is negative for pertinent findings except as documented above in the HPI. - Constitutional Vitals: Temp Pulse Resp BP Pulse Ox 98.1 F 73 93 160/98 93 11/07/17 07:21 11/07/17 08:59 11/07/17 10:09 11/07/17 10:09 11/07/17 08:59 General appearance: Present: mild distress, A&O X 3, answers questions appropriately Exam: Patient is awake alert, oriented 3 - Head Head exam: Present: atraumatic, normocephalic - Eye Eye exam: Present: PERRL, conjuntiva pink, sclera anicteric Pupils: Present: PERRL - Neck Neck exam general surgery: Present: supple, trachea midline. Absent: lymphadenopathy - Respiratory Respiratory exam: Present: CTAB, rales (Crackles on bilateral lung base, left > Rt). Absent: accessory muscle use, rhonchi, wheezes - Cardiovascular Cardiovascular exam: Present: RRR, +S1, +S2. Absent: diastolic murmur, gallop, rubs, systolic murmur - GI/Abdominal GI/Abdominal exam: Present: normal bowel sounds, soft, no peritoneal signs. Absent: distended, tenderness - Extremities Exam Extremities exam: Present: pedal edema (Mild pedal edema bilaterally), warm, radial pulses palpable and symmetrical. Absent: calf tenderness, cyanotic - Neurological Exam Neurological exam: Present: CN II-XII intact, oriented X3, no focal deficits. Absent: pronater drift, facial droop, speech deficit - Skin Skin exam: Present: dry, intact Internal Med - H&P Results - Labs CBC & Chem 7: 11/07/17 07:24 11/07/17 07:24 - Assessment and plan (1) Acute exacerbation of CHF (congestive heart failure) Current Visit: Yes Status: Acute Assessment and plan: Patient has a history of systolic CHF with LVEF 40%. S/P PPM/AICD. Worsening shortness of breath. Chest x-ray shows pulmonary edema. Elevated BNP. On exam patient has crackles bilaterally. Consider CHF exacerbation. - Place patient on fluid restriction diet - Strict I and O - IV Lasix 40 mg daily - Continue home medication beta fuentes and TEE inhibitor - Supportive treatment as needed Qualifiers: Heart failure type: systolic Qualified Code(s): I50.23 - Acute on chronic systolic (congestive) heart failure (2) Atypical chest pain Current Visit: No Status: Resolved Assessment and plan: Patient has history of CAD. Patient has similar chest pain seems caused by CHF exacerbation previously. However, need to rule out ACS. - Continue cardiac monitoring - Track 3 sets of troponin (3) CAD (coronary artery disease) Current Visit: No Status: Chronic Assessment and plan: S/P stent recently. Continue home medication aspirin, brilinta, beta fuentes, imdur, and statin Qualifiers: Coronary Disease-Associated Artery/Lesion type: bypass graft [place] vs. transplanted heart: [place] heart Associated angina: with stable angina Qualified Code(s): I25.708 - Atherosclerosis of coronary artery bypass graft(s) , unspecified, with other forms of angina pectoris (4) DM2 (diabetes mellitus, type 2) Current Visit: No Status: Chronic Assessment and plan: Continue diet control Qualifiers: Diabetes mellitus retirement insulin use: without retirement use Diabetes mellitus complication status: with circulatory complication Diabetes mellitus complication detail: with other circulatory complications Qualified Code(s): E11.59 - Type 2 diabetes mellitus with other circulatory complications (5) DVT prophylaxis Current Visit: No Status: Acute Assessment and plan: Heparin subcutaneously - Time Spent With Patient Total time spent is greater than 50% in coordination of care (as documented) at patient's floor/unit and/or counseling patient: 30 minutes 25 - 35 minutes
[2017-11-07] MEDS: Acetaminophen 325 MG TABLET PO PRN ×2 (14:14→21:26)
--- NOTE | 2017-11-07 15:39 | Electrocardiograph Report ---
[place] [id number] Test Date: 2017-11-07 Pat Name: Yue Pizarro Department: Room: 2A Gender: M Court Orderly: : 1940 Requested By: Dev Floyd Order Number: [id number] Reading MD: Ander Garcia Measurements Intervals [place] Rate: 77 P: 0 VT: QRS: 252 QRSD: 163 T: 33 QT: 463 QTc: 633 Interpretive Statements A-V dual-paced complexes No further analysis attempted due to paced rhythm Electronically Signed On 11-07-2017 15:37:53 EDT by Ander Garcia
[2017-11-07] MEDS: *HR* Heparin 5,000 UNIT/ML VIAL SQ SCH (16:59)
[2017-11-07] MEDS: *HR* Ticagrelor 90 MG TABLET PO SCH (20:40)
[2017-11-07] MEDS ORDERED: NON-FORMULARY MEDICATION 1 EACH EACH (Carvedilol [Carvedilol] 3.125 MG) PO SCH (21:00)
[2017-11-07] MEDS ORDERED: Ondansetron 4 MG/2 ML VIAL IVP PRN (23:52)
[2017-11-08] MEDS: *HR* Promethazine 25 MG/ML VIAL IVP PRN ×2 (00:09→15:17)
[2017-11-08] MEDS ORDERED: Ipratropium/Albuterol Neb 3 ML IH PRN (00:09)
[2017-11-08] MEDS: Acetaminophen 325 MG TABLET PO PRN ×2 (05:14→16:44)
[2017-11-08] MEDS: *HR* Heparin 5,000 UNIT/ML VIAL SQ SCH ×2 (05:16→16:45)
[2017-11-08 05:37] LABS: Basophils # 0.1 K/mcL (0.0-0.2); Basophils % 0.5 %; Eosinophils # 0.3 K/mcL (0.0-0.6); Eosinophils % 2.2 %; Hematocrit 47.6 % (37.5-50.1); Hemoglobin 16.1 g/dL (12.9-16.9); Immature Granulocytes % 0.3 % (0-4); Lymphocytes % 8.2 %; Mean Corpuscular HGB Conc 33.8 g/dL (31.6-35.5); Mean Corpuscular Hemoglobin 29.9 pg (28.0-33.3); Mean Corpuscular Volume 88.3 fL (83.0-100.0); Mean Platelet Volume 11.4 fL (9.4-12.4); Monocytes # 0.9 K/mcL (0.0-1.3); Monocytes % 7.4 %; Neutrophils # 9.5 K/mcL (1.6-8.9); Platelet Count 145 K/mcL (140-400); Red Blood Count 5.39 M/mcL (4.19-5.50); Red Cell Distribution Width 14.2 % (11.5-14.5); Segmented Neutrophils % 81.4 %
[2017-11-08 06:03] LABS: BUN/Creatinine Ratio 22 (6-26); Blood Urea Nitrogen 22 mg/dL (8-23); Carbon Dioxide 26 mEq/L (23-29); Chloride 103 mEq/L (98-107); Glucose 146 mg/dL (70-105); Magnesium 1.9 mg/dL (1.6-2.6); Osmolality,Calculated 292 (280-300); Potassium 3.8 mEq/L (3.5-5.1); Sodium 138 mEq/L (136-145); eGFR For Non-African Americans > 60 (> 60)
[2017-11-08] MEDS ORDERED: Furosemide 40 MG/4 ML VIAL IVP SCH (09:00)
[2017-11-08] MEDS ORDERED: NON-FORMULARY MEDICATION 1 EACH EACH (Omega-3/Dha/Epa/Fish Oil [Fish Oil 1,000 Mg Softgel] PO SCH (09:00)
[2017-11-08] MEDS: Isosorbide MONOnitrate (24 HR) 60 MG TAB.ER.24H PO SCH (09:26)
[2017-11-08] MEDS: Aspirin Enteric Coated 81 MG Tablet PO SCH (09:26)
[2017-11-08] MEDS: *HR* Ticagrelor 90 MG TABLET PO SCH ×2 (09:27→21:11)
--- NOTE | 2017-11-08 10:36 | Internal Med Progress Note ---
<Aydee Gerardo - Last Filed: 11/08/17 16:00> Hospitalist Progress Note - Encounter Date of Encounter: 11/08/17 Time of Encounter: 10:34 - Subjective Interval History: Patient is a 77 year old male with hx of CHF (EF 40%), DM, CAD s/p CABG, afib, pacemaker in situ, who was admitted 11/07 with chest pain and SOB secondary to CHF exacerbation. Patient feels the same today. This is worse than his previous CHF exacerbations. He normally wears 2.5L of oxygen at home only at night. Complains of intermittent chest pain that occurs at rest, not pleuritic. He continues to have SOB, dry cough, decreased appetite. - Exam Vitals: Temp Pulse Resp BP Pulse Ox 98.0 F 82 22 179/110 97 11/08/17 08:26 11/08/17 08:26 11/08/17 08:26 11/08/17 08:26 11/08/17 08:26 Exam: Gen: Sitting in bed, alert, oriented, becomes short of breath with speaking. HEENT: Oxygen mask in place. NC/AT. CV: irregularly irregular, radial and PT pulses rigth leg is +2 and left leg +1. Resp: crackles in bases bilaterally, otherwise clear, no wheezes Abd: Soft, nontender, bowel sounds present Extremities: No LE edema. Distended veins in lower extremities Skin: no rashes Neuro: moving all extremities - Assessment and Plan (1) Atypical chest pain Current Visit: No Status: Acute Assessment and Plan: Assessment and plan: Patient has intermittent chest pain at rest, not pleuritic. Troponins negativex3 , EKG without signs of ischemia. -Monitor for worsening symptoms (2) Acute on chronic systolic (congestive) heart failure Current Visit: No Status: Acute Assessment and Plan: José Miguel CHF exacerbation: last echo July 2017 showed LVED 40%. Has pacemaker, patient reports it was last interrogated 6 months ago. Usually wears 2.5L oxygen at night. Now presenting with SOB, requiring 6L oxygen via mask, crackles on exam. BNP 905. - Fluid restriction - Strict Is and Os - IV Lasix increased 40mg Bid - Duonebs and supplemental O2 - Continue home beta fuentes and TEE (3) DM2 (diabetes mellitus, type 2) Current Visit: No Status: Chronic Assessment and Plan: continue diet control DVT Prophylaxis: Heparin SQ - Time Spent with Patient Total time spent is greater than 50% in coordination of care (as documented) at patient's floor/unit and/or counseling patient: Greater than 35 minutes Plan of Care Discussed with: patient Internal Medicine: Result - Labs CBC & Chem 7: 11/08/17 05:13 11/08/17 05:13 Labs: Short CBC 11/08/17 Range/Units 05:13 WBC 11.6 H (4.3-11.1) K/mcL Hgb 16.1 (12.9-16.9) g/dL Hct 47.6 (37.5-50.1) % Plt Count 145 (140-400) K/mcL Neutrophils # 9.5 H (1.6-8.9) K/mcL BMP 11/08/17 05:13 Sodium 138 Potassium 3.8 Chloride 103 Carbon Dioxide 26 BUN 22 Creatinine 1.02 Glucose 146 H Calcium 10.0 Cardiac Enzymes 11/07/17 Range/Units 17:44 Troponin I 0.04 H* (< 0.04) ng/mL Consult Discharge Plan - Plan Referrals: Lance Cronin MD [Primary Care Provider] - <Jennifer Bhandari - Last Filed: 11/08/17 16:55> Hospitalist Progress Note - Encounter Date of Encounter: 11/08/17 - Exam Vitals: Temp Pulse Resp BP Pulse Ox 98.2 F 72 16 133/84 97 11/08/17 15:58 11/08/17 15:58 11/08/17 15:58 11/08/17 15:58 11/08/17 15:58 - Assessment and Plan (1) Atypical chest pain Current Visit: No Status: Acute (2) CAD (coronary artery disease) Current Visit: No Status: Chronic (3) DM2 (diabetes mellitus, type 2) Current Visit: No Status: Chronic (4) DVT prophylaxis Current Visit: No Status: Acute (5) Acute exacerbation of CHF (congestive heart failure) Current Visit: Yes Status: Acute - Time Spent with Patient Total time spent is greater than 50% in coordination of care (as documented) at patient's floor/unit and/or counseling patient: Internal Medicine: Result - Labs CBC & Chem 7: 11/08/17 05:13 11/08/17 05:13 Labs: Short CBC 11/08/17 Range/Units 05:13 WBC 11.6 H (4.3-11.1) K/mcL Hgb 16.1 (12.9-16.9) g/dL Hct 47.6 (37.5-50.1) % Plt Count 145 (140-400) K/mcL Neutrophils # 9.5 H (1.6-8.9) K/mcL BMP 11/08/17 05:13 Sodium 138 Potassium 3.8 Chloride 103 Carbon Dioxide 26 BUN 22 Creatinine 1.02 Glucose 146 H Calcium 10.0 Cardiac Enzymes 11/07/17 Range/Units 17:44 Troponin I 0.04 H* (< 0.04) ng/mL - Attending Attestation I examined this patient and my medical decision-making was reviewed with the Resident Physician Dr. Gerardo. I agree with the documented findings, disposition and treatment plan as described except to the extent set forth below. Mr. Zambrano is a 77 y/o M with CAD, s/p CABG, Stents, and systolic CHF pt admitted here for acute CHF exacerbation. He was started on IV lasix. Pt states he is feeling better today. Gen: A,A, O x 3 chest: Diminished BS b/l, mild crackles Heart: S1S2+ a//p 1. Acute on chronic hypoxic resp failure 2. Acute pulm edema due to CHF exacerbation 3. Acute on chronic systolic CHF exacerbation cont IV Lasix 40 BID cont home meds <Aydee Gerardo M - Last Filed: 11/08/17 16:00> (3) DM2 (diabetes mellitus, type 2) Qualifiers: Diabetes mellitus intermediate insulin use: without intermediate use Diabetes mellitus complication status: with circulatory complication Diabetes mellitus complication detail: with other circulatory complications Qualified Code(s): E11.59 - Type 2 diabetes mellitus with other circulatory complications <Jennifer Bhandari - Last Filed: 11/08/17 16:55> (2) CAD (coronary artery disease) Qualifiers: Coronary Disease-Associated Artery/Lesion type: bypass graft [place] vs. transplanted heart: [place] heart Associated angina: with stable angina Qualified Code(s): I25.708 - Atherosclerosis of coronary artery bypass graft(s) , unspecified, with other forms of angina pectoris (3) DM2 (diabetes mellitus, type 2) Qualifiers: Diabetes mellitus intermediate insulin use: without computer terminal operator use Diabetes mellitus complication status: with circulatory complication Diabetes mellitus complication detail: with other circulatory complications Qualified Code(s): E11.59 - Type 2 diabetes mellitus with other circulatory complications (5) Acute exacerbation of CHF (congestive heart failure) Qualifiers: Heart failure type: systolic Qualified Code(s): I50.23 - Acute on chronic systolic (congestive) heart failure
[2017-11-08] MEDS: Furosemide 40 MG/4 ML VIAL IVP SCH (16:44)
[2017-11-09] MEDS: Acetaminophen 325 MG TABLET PO PRN ×2 (04:40→20:19)
[2017-11-09] MEDS: *HR* Heparin 5,000 UNIT/ML VIAL SQ SCH ×2 (06:27→17:22)
[2017-11-09] MEDS ORDERED: Dextrose Gel 15 GM/37.5 ML TUBE PO PRN ×2 (08:49)
[2017-11-09] MEDS ORDERED: D5% in Water 1,000 ML IVC PRN (08:49)
[2017-11-09] MEDS ORDERED: *HR* Dextrose 50 % in Water (Syg) 50 ML SYRINGE IVP PRN (08:49)
[2017-11-09] MEDS: Isosorbide MONOnitrate (24 HR) 60 MG TAB.ER.24H PO SCH (09:45)
[2017-11-09] MEDS: *HR* Ticagrelor 90 MG TABLET PO SCH ×2 (09:46→20:18)
[2017-11-09] MEDS: Insulin LISPRO 300 UNITS/3 ML VIAL SQ SCH ×3 (09:46→17:23)
[2017-11-09] MEDS: Furosemide 40 MG/4 ML VIAL IVP SCH (09:46)
[2017-11-09] MEDS: Aspirin Enteric Coated 81 MG Tablet PO SCH (09:46)
[2017-11-09 09:52] LABS: BUN/Creatinine Ratio 24 (6-26); Blood Urea Nitrogen 29 mg/dL (8-23); Calcium 9.5 mg/dL (8.6-10.3); Carbon Dioxide 27 mEq/L (23-29); Chloride 105 mEq/L (98-107); Glucose 226 mg/dL (70-105); Osmolality,Calculated 301 (280-300); Sodium 139 mEq/L (136-145); eGFR For Non-African Americans 59 (> 60)
--- NOTE | 2017-11-09 15:26 | Internal Med Progress Note ---
Hospitalist Progress Note - Encounter Date of Encounter: 11/09/17 Time of Encounter: 10:00 - Subjective Interval History: Mr. Pizarro is a 77 year old male with hx of systolic CHF (EF 40%), DM, HTN, paroxysmal afib not on anti coag due to hematuria in the past and CAD with s/p LHC on 11/02/16 s/p 4 JATINDER stents, s/p CABG pt admitted here for worsening SOB and ELENA due to CHF exacerbation. Pt was started on IV lasix, he feels better today. Denied any CP. Still has mild SOB and ELENA. - Exam Vitals: Temp Pulse Resp BP Pulse Ox 97.5 F L 70 18 123/72 97 11/09/17 11:18 11/09/17 11:18 11/09/17 11:18 11/09/17 11:18 11/09/17 11:18 Exam: Gen: Alert, awake, Oriented to time,place and person Chest: Diminished breath sounds B/L, No wheezing, No crackles, No rales Heart: S1S2+ RRR No murmurs Abd: Soft, NT, BS +, No organomegaly Ext: No edema, pulses are palpable, No calf tenderness Neuro : Benign findings Skin: No rash. - Assessment and Plan (1) Acute exacerbation of CHF (congestive heart failure) Current Visit: Yes Status: Acute Assessment and Plan: systolic CHF with LVEF 40%. S/P PPM/AICD Chest x-ray showed pulmonary edema due to CHF exacerbation Improving switch to PO lasix 20 BID resumed other home meds (2) Atypical chest pain Current Visit: No Status: Acute Assessment and Plan: stable adynamic trop @ 0.04 no active CP now EKG did not show any ischemic changes no further work up needed Cont ASA + Brilinta, BB, ACEI and Statin (3) CAD (coronary artery disease) Current Visit: No Status: Chronic Assessment and Plan: Continue home medication aspirin, brilinta, beta fuentes, imdur, and statin (4) DM2 (diabetes mellitus, type 2) Current Visit: No Status: Chronic Assessment and Plan: Continue diet control (5) DVT prophylaxis Current Visit: No Status: Acute Assessment and Plan: Heparin subcutaneously - Time Spent with Patient Total time spent is greater than 50% in coordination of care (as documented) at patient's floor/unit and/or counseling patient: Internal Medicine: Result - Labs CBC & Chem 7: 11/08/17 05:13 11/09/17 09:22 Labs: BMP 11/09/17 09:22 Sodium 139 Potassium 4.0 Chloride 105 Carbon Dioxide 27 BUN 29 H Creatinine 1.19 Glucose 226 H Calcium 9.5 Consult Discharge Plan - Plan Referrals: Lance Cronin MD [Primary Care Provider] - (1) Acute exacerbation of CHF (congestive heart failure) Qualifiers: Heart failure type: systolic Qualified Code(s): I50.23 - Acute on chronic systolic (congestive) heart failure (3) CAD (coronary artery disease) Qualifiers: Coronary Disease-Associated Artery/Lesion type: bypass graft [place] vs. transplanted heart: [place] heart Associated angina: with stable angina Qualified Code(s): I25.708 - Atherosclerosis of coronary artery bypass graft(s) , unspecified, with other forms of angina pectoris (4) DM2 (diabetes mellitus, type 2) Qualifiers: Diabetes mellitus vermin exterminator insulin use: without vermin exterminator use Diabetes mellitus complication status: with circulatory complication Diabetes mellitus complication detail: with other circulatory complications Qualified Code(s): E11.59 - Type 2 diabetes mellitus with other circulatory complications
[2017-11-09] MEDS: Furosemide 20 MG TABLET PO SCH (17:23)
[2017-11-09] MEDS ORDERED: Insulin LISPRO 300 UNITS/3 ML VIAL SQ SCH (21:00)
[2017-11-10] MEDS: Acetaminophen 325 MG TABLET PO PRN (04:59)
[2017-11-10] MEDS: *HR* Heparin 5,000 UNIT/ML VIAL SQ SCH (06:10)
[2017-11-10 06:59] LABS: BUN/Creatinine Ratio 29 (6-26); Blood Urea Nitrogen 30 mg/dL (8-23); Calcium 9.5 mg/dL (8.6-10.3); Carbon Dioxide 25 mEq/L (23-29); Chloride 105 mEq/L (98-107); Glucose 110 mg/dL (70-105); Osmolality,Calculated 295 (280-300); Potassium 3.7 mEq/L (3.5-5.1); Sodium 139 mEq/L (136-145); eGFR For Non-African Americans > 60 (> 60)
[2017-11-10] MEDS: Insulin LISPRO 300 UNITS/3 ML VIAL SQ SCH ×2 (08:42→11:57)
--- NOTE | 2017-11-10 09:04 | Discharge Summary ---
- NOTES TO OUTPATIENT PROVIDER Notes to Outpatient Provider: f/u with PCP in one week. Please continue taking Lasix 20mg PO BID. Please check daily weight. Cont strict water restriction @ 1.5 lit. Please take extra Lasix if you get more SOB, b/l LE Edema and gains weight more than 2 lbs. Orders not resulted at time of discharge: Pending orders 11/07/17 23:52 EKG [ECG 12 lead ECG] [ECG] Stat 11/11/17 04:00 Basic Metabolic Panel AM 040 Complete Blood Count [HEME] AM 04011/12/17 04:00 Complete Blood Count [HEME] AM 04011/13/17 04:00 Complete Blood Count [HEME] AM 040 Date of Encounter: 11/10/17 Time of Encounter: 09:00 - Discharge Diagnosis (1) Acute exacerbation of CHF (congestive heart failure) Priority: Primary Status: Acute Qualifiers: Heart failure type: systolic Qualified Code(s): I50.23 - Acute on chronic systolic (congestive) heart failure (2) Atypical chest pain Priority: Primary Status: Acute (3) CAD (coronary artery disease) Priority: Secondary Status: Chronic Qualifiers: Coronary Disease-Associated Artery/Lesion type: bypass graft [place] vs. transplanted heart: [place] heart Associated angina: with stable angina Qualified Code(s): I25.708 - Atherosclerosis of coronary artery bypass graft(s) , unspecified, with other forms of angina pectoris (4) DM2 (diabetes mellitus, type 2) Priority: Secondary Status: Chronic Qualifiers: Diabetes mellitus residential insulin use: without long term care social worker use Diabetes mellitus complication status: with circulatory complication Diabetes mellitus complication detail: with other circulatory complications Qualified Code(s): E11.59 - Type 2 diabetes mellitus with other circulatory complications (5) DVT prophylaxis Priority: Secondary Status: Acute Hospital course: Mr. Pizarro is a 77 year old male with hx of systolic CHF (EF 40%), DM, HTN, paroxysmal afib not on anti coag due to hematuria in the past and CAD with s/p LHC on 11/02/16 s/p 4 JATINDER stents, s/p CABG pt admitted here for worsening SOB and ELENA due to CHF exacerbation. He was admitted here and started on IV diuresis. His symptoms started improving slowly. He feels like back to baseline and wants to go home today. I counseled and educated him about daily weight, water restriction and taking extra Lasix if he gets more SOB / b/l LE Edema and weight gain more than 2 lbs. - Time Spent with Patient Total time spent providing and/or coordinating discharge services: - Discharge Medications Prescriptions: Furosemide [Lasix] 20 mg PO BID #60 tablet Home Medications: Aspirin [Lo-Dose Aspirin EC] 81 mg PO DAILY 08/10/17 [History] Atorvastatin [Lipitor] 40 mg PO HS 08/10/17 [History] Carvedilol 3.125 mg PO BID 08/10/17 [History] Cinnamon Bark [Cinnamon] 500 mg PO DAILY 08/10/17 [History] Isosorbide MONOnitrate [Isosorbide Mononitrate ER] 120 mg PO DAILY 08/10/17 [ History] Lisinopril 2.5 mg PO DAILY 08/10/17 [History] Nitroglycerin [Nitrostat] 0.4 mg SL Q5M PRN 08/10/17 [History] [place]-3/Dha/Epa/Fish Oil [Fish Oil 1,000 mg Softgel] 1 cap PO DAILY 08/10/17 [ History] Potassium Chloride [K-Tab ER] 10 meq PO DAILY 08/10/17 [History] Ticagrelor [Brilinta] 90 mg PO BID 08/10/17 [History] Acetaminophen [Tylenol] 650 mg PO Q6HR PRN tablet 09/01/17 [Rx] Furosemide [Lasix] 20 mg PO BID #60 tablet 11/10/17 [Rx] Allergies/Adverse Reactions: 3 Allergy/AdvReac Type Severity Reaction Status Date / Time Oxycodone [From Percocet] Allergy Hives Verified 09/01/17 16:21 tramadol Allergy Hives Verified 09/01/17 16:21 Date of admission: 11/07/17 11:55 Primary care physician: Lance Cronin MD - Constitutional Vitals: Temp Pulse Resp BP Pulse Ox 97.6 F 64 16 143/82 98 11/10/17 06:59 11/10/17 06:59 11/10/17 06:59 11/10/17 06:59 11/10/17 06:59 General appearance: Present: mild distress, A&O X 3, answers questions appropriately Exam: Gen: Alert, awake, Oriented to time,place and person Chest: Diminished breath sounds B/L, No wheezing, No crackles, No rales Heart: S1S2+ RRR No murmurs Abd: Soft, NT, BS +, No organomegaly Ext: No edema, pulses are palpable, No calf tenderness Neuro : Benign findings Skin: No rash. - Patient Status Disposition: Home, Self-Care Condition: Good Overall status at discharge: patient is back to baseline - Discharge Instructions Follow Up With: Lance Cronin MD [Primary Care Provider] - - Diet and Activity Activity: increase activity as tolerated Diet: low salt diet
[2017-11-10] MEDS: Isosorbide MONOnitrate (24 HR) 60 MG TAB.ER.24H PO SCH (09:27)
[2017-11-10] MEDS: Furosemide 20 MG TABLET PO SCH (09:28)
[2017-11-10] MEDS: *HR* Ticagrelor 90 MG TABLET PO SCH (09:28)
[2017-11-10] MEDS: Aspirin Enteric Coated 81 MG Tablet PO SCH (09:28)
--- NOTE | 2017-11-10 10:52 | Physician Discharge Referral ---
Home Health/Hosp Referral Info Transfer to: Home Health Provider in Charge Post Discharge: PCP - Diagnosis (1) Acute exacerbation of CHF (congestive heart failure) Status: Acute (2) Atypical chest pain Status: Acute (3) CAD (coronary artery disease) Status: Chronic (4) DM2 (diabetes mellitus, type 2) Status: Chronic (5) DVT prophylaxis Status: Acute - Respiratory Orders Smoking Cessation: Smoking cessation has been advised. For more information, call the [place] Tobacco Quit Line at 1-712-NVPT-NOW. - Services Needed Following services are medically necessary services: Nursing - Transfer Medications Prescriptions: Furosemide [Lasix] 20 mg PO BID #60 tablet Home Medications: Aspirin [Lo-Dose Aspirin EC] 81 mg PO DAILY 08/10/17 [History] Atorvastatin [Lipitor] 40 mg PO HS 08/10/17 [History] Carvedilol 3.125 mg PO BID 08/10/17 [History] Cinnamon Bark [Cinnamon] 500 mg PO DAILY 08/10/17 [History] Isosorbide MONOnitrate [Isosorbide Mononitrate ER] 120 mg PO DAILY 08/10/17 [ History] Lisinopril 2.5 mg PO DAILY 08/10/17 [History] Nitroglycerin [Nitrostat] 0.4 mg SL Q5M PRN 08/10/17 [History] [place]-3/Dha/Epa/Fish Oil [Fish Oil 1,000 mg Softgel] 1 cap PO DAILY 08/10/17 [ History] Potassium Chloride [K-Tab ER] 10 meq PO DAILY 08/10/17 [History] Ticagrelor [Brilinta] 90 mg PO BID 08/10/17 [History] Acetaminophen [Tylenol] 650 mg PO Q6HR PRN tablet 09/01/17 [Rx] Furosemide [Lasix] 20 mg PO BID #60 tablet 11/10/17 [Rx] Allergies/Adverse Reactions: 3 Allergy/AdvReac Type Severity Reaction Status Date / Time Oxycodone [From Percocet] Allergy Hives Verified 09/01/17 16:21 tramadol Allergy Hives Verified 09/01/17 16:21 Certification: Further, I certify that my clinical findings support that this patient is homebound (i.e. absences from home require considerable and taxing effort and are for medical reasons or [facility] services or infrequently or short duration when for other reasons) because: Homebound Reason: Patient requires assistance of a person or device to safely leave home Attestation: My signature below is to certify that this patient is under my care and that I, or nurse practitioner, or a physician's assistant maintenance manager working with me, has a face-to -face encounter with this patient.
[2017-11-10 11:10] VITALS: BP 134/77
--- NOTE | 2017-11-11 12:22 | Electrocardiograph Report ---
[address] [address] Test Date: 2017-11-08 Pat Name: Yue Pizarro Department: 112 Room: 2A Gender: M Unit Support Representative: : 1940 Requested By: Jamie De La Cruz Order Number: [id number] Reading MD: Terrance Maldonado Measurements Intervals [place] Rate: 76 P: 81 WV: 128 QRS: -48 QRSD: 223 T: 136 QT: 527 QTc: 558 Interpretive Statements ELECTRONIC VENTRICULAR PACEMAKER Electronically Signed On 11-11-2017 12:20:49 EDT by Terrance Maldonado
== END 2017-11-10 12:22 | disposition home or self-care (01) | DRG 291 ==
LOC: EMEROOARM 07:15 → 2ANU 07:15
PROVIDERS: ADMIT Internal Medicine; ATTEND Internal Medicine

== ENCOUNTER 2017-12-20 04:24 | Observation (INO) ==
[2017-12-20 04:53] LABS: Bilirubin,Urine Negative (Negative); Blood,Urine Negative (Negative); Clarity,Urine Clear (Clear); Color,Urine Yellow (Yellow); Glucose,Urine (UA) Normal (Normal); Ketones,Urine Negative (Negative); Leukocyte Esterase,Urine Negative (Negative); Nitrite,Urine Negative (Negative); Protein,Urine 30 mg/dL (Neg-Trace); Urobilinogen,Urine Normal (Normal)
[2017-12-20 04:54] LABS: Bacteria,Urine None Seen per hpf (None-Few); Hyaline Casts,Urine None Seen per lpf (None-Few); RBC,Urine 0-3 per hpf (0-3); Squamous Epithelial Cell,Urine None Seen per lpf (None-Few); WBC,Urine 0-3 per hpf (0-3)
[2017-12-20 04:55] LABS: Basophils # 0.1 K/mcL (0.0-0.2); Basophils % 0.7 %; Eosinophils # 0.2 K/mcL (0.0-0.6); Eosinophils % 2.4 %; Hematocrit 48.6 % (37.5-50.1); Hemoglobin 16.1 g/dL (12.9-16.9); Immature Granulocytes % 0.4 % (0-4); Lymphocytes # 1.2 K/mcL (0.6-4.6); Lymphocytes % 14.8 %; Mean Corpuscular HGB Conc 33.1 g/dL (31.6-35.5); Mean Corpuscular Hemoglobin 29.6 pg (28.0-33.3); Mean Corpuscular Volume 89.3 fL (83.0-100.0); Mean Platelet Volume 11.1 fL (9.4-12.4); Monocytes # 0.7 K/mcL (0.0-1.3); Monocytes % 7.9 %; Neutrophils # 6.2 K/mcL (1.6-8.9); Platelet Count 164 K/mcL (140-400); Red Blood Count 5.44 M/mcL (4.19-5.50); Red Cell Distribution Width 13.6 % (11.5-14.5); Segmented Neutrophils % 73.8 %; White Blood Count 8.4 K/mcL (4.3-11.1)
[2017-12-20 05:19] LABS: Alanine Aminotransferase 27 Units/L (7-52); Albumin 4.5 g/dL (3.5-5.7); Albumin/Globulin Ratio 1.3 (1.1-2.2); Alkaline Phosphatase 82 Units/L (34-104); Aspartate Amino Transferase 24 Units/L (13-39); BUN/Creatinine Ratio 22 (6-26); Bilirubin,Direct 0.2 mg/dL (0.0-0.2); Bilirubin,Indirect 0.5 mg/dL (0.0-1.2); Bilirubin,Total 0.7 mg/dL (0.3-1.0); Blood Urea Nitrogen 24 mg/dL (8-23); Calcium 10.7 mg/dL (8.6-10.3); Carbon Dioxide 26 mEq/L (23-29); Chloride 103 mEq/L (98-107); Globulin 3.5 g/dL (2.4-3.5); Glucose 159 mg/dL (70-105); Osmolality,Calculated 297 (280-300); Potassium 4.3 mEq/L (3.5-5.1); Sodium 140 mEq/L (136-145); eGFR For African Americans > 60 (> 60); eGFR For Non-African Americans > 60 (> 60)
[2017-12-20 05:20] LABS: Troponin I 0.04 ng/mL (< 0.04)
[2017-12-20] MEDS ORDERED: Furosemide 20 MG/2 ML VIAL IVP ONE (05:22)
[2017-12-20] MEDS ORDERED: Naloxone 0.4 MG/ML INJ IVP PRN (08:52)
[2017-12-20] MEDS ORDERED: D5% in Water 1,000 ML IVC PRN (09:30)
[2017-12-20] MEDS ORDERED: Dextrose Gel 15 GM/37.5 ML TUBE PO PRN ×2 (09:30)
[2017-12-20] MEDS ORDERED: *HR* Dextrose 50 % in Water (Syg) 50 ML SYRINGE IVP PRN (09:30)
[2017-12-20 10:13] LABS: Estimated Average Glucose 143 mg/dl
[2017-12-20] MEDS: *HR* Ticagrelor 90 MG TABLET PO SCH ×2 (11:04→21:30)
[2017-12-20] MEDS: Insulin LISPRO 300 UNITS/3 ML VIAL SQ SCH ×3 (14:54→22:34)
[2017-12-20] MEDS: Furosemide 20 MG/2 ML VIAL IVP SCH (16:33)
[2017-12-20] MEDS: Acetaminophen 325 MG TABLET PO PRN ×2 (16:33→23:37)
[2017-12-20] MEDS: *HR* Heparin 5,000 UNIT/ML VIAL SQ SCH (16:34)
[2017-12-21] MEDS: *HR* Heparin 5,000 UNIT/ML VIAL SQ SCH ×2 (05:59→18:38)
[2017-12-21] MEDS: Acetaminophen 325 MG TABLET PO PRN ×2 (06:00→14:51)
[2017-12-21 06:34] LABS: Basophils # 0.1 K/mcL (0.0-0.2); Basophils % 0.8 %; Eosinophils # 0.2 K/mcL (0.0-0.6); Eosinophils % 2.3 %; Hematocrit 45.9 % (37.5-50.1); Hemoglobin 15.7 g/dL (12.9-16.9); Immature Granulocytes % 0.2 % (0-4); Lymphocytes # 1.1 K/mcL (0.6-4.6); Mean Corpuscular HGB Conc 34.2 g/dL (31.6-35.5); Mean Corpuscular Hemoglobin 29.8 pg (28.0-33.3); Mean Corpuscular Volume 87.1 fL (83.0-100.0); Mean Platelet Volume 10.9 fL (9.4-12.4); Monocytes # 0.9 K/mcL (0.0-1.3); Monocytes % 9.8 %; Neutrophils # 6.9 K/mcL (1.6-8.9); Platelet Count 156 K/mcL (140-400); Red Blood Count 5.27 M/mcL (4.19-5.50); Red Cell Distribution Width 13.9 % (11.5-14.5); Segmented Neutrophils % 74.9 %; White Blood Count 9.2 K/mcL (4.3-11.1)
[2017-12-21 06:40] LABS: BUN/Creatinine Ratio 19 (6-26); Blood Urea Nitrogen 19 mg/dL (8-23); Calcium 9.9 mg/dL (8.6-10.3); Carbon Dioxide 23 mEq/L (23-29); Chloride 105 mEq/L (98-107); Glucose 142 mg/dL (70-105); Osmolality,Calculated 289 (280-300); Potassium 3.5 mEq/L (3.5-5.1); Sodium 137 mEq/L (136-145); eGFR For African Americans > 60 (> 60); eGFR For Non-African Americans > 60 (> 60)
[2017-12-21] MEDS: Insulin LISPRO 300 UNITS/3 ML VIAL SQ SCH ×4 (08:49→20:49)
[2017-12-21] MEDS: Furosemide 20 MG/2 ML VIAL IVP SCH ×2 (08:51→18:38)
[2017-12-21] MEDS: *HR* Ticagrelor 90 MG TABLET PO SCH ×2 (08:51→21:11)
[2017-12-22] MEDS: Acetaminophen 325 MG TABLET PO PRN (04:10)
[2017-12-22] MEDS ORDERED: Ketorolac 15 MG/ML VIAL IVP ONE (04:14)
[2017-12-22] MEDS: *HR* Heparin 5,000 UNIT/ML VIAL SQ SCH (05:49)
[2017-12-22] MEDS: Insulin LISPRO 300 UNITS/3 ML VIAL SQ SCH ×2 (08:57→11:21)
[2017-12-22] MEDS: Furosemide 20 MG/2 ML VIAL IVP SCH (08:58)
[2017-12-22] MEDS: *HR* Ticagrelor 90 MG TABLET PO SCH (08:58)
[2017-12-22] MEDS ORDERED: lisinopriL 5 MG TABLET PO SCH (10:15)
[2017-12-22] MEDS ORDERED: carvediloL 6.25 MG TABLET PO SCH (10:15)
[2017-12-22] MEDS ORDERED: Isosorbide MONOnitrate (24 HR) 60 MG TAB.ER.24H PO SCH (10:15)
[2017-12-22] MEDS ORDERED: Aspirin Enteric Coated 81 MG Tablet PO SCH (10:15)
[2017-12-22 12:23] VITALS: BP 160/85
== END 2017-12-22 16:02 | disposition home health service (06) ==
LOC: EMEROOARM 04:24 → 3BNU 04:24
PROVIDERS: ADMIT Internal Medicine; ATTEND Internal Medicine

== ENCOUNTER 2018-02-01 14:41 | Inpatient (IN) ==
--- NOTE | 2018-02-01 14:56 | Emergency Department Note ---
Disposition Clinical Impression: Shortness of breath Community acquired pneumonia Qualifiers: Laterality: right Lung location: lower lobe of lung Qualified Code(s): J18.1 - Lobar pneumonia, unspecified organism Disposition: Admitted As Inpatient Condition: Fair Time of Disposition: 18:44 SOB HPI - General Stated Complaint: SOB chest pain Time Seen by Provider: 02/01/18 14:43 Nursing Notes Reviewed: Yes Vital Signs Reviewed: Yes - History of Present Illness 77yo male presents from home via EMS for evaluation of shortness of breath. Onset last night. Described as initially waxing and waning however became persistent this morning. Worse when laying supine; improved when upright. Not improved with patient's baseline 3-4 L nasal cannula which typically is night but has been using throughout the day today. Associated with dry cough. Patient also notes associated chest pain which he motions to be midsternal but is otherwise unable to characterize or quantify. He has difficulty describing his symptoms. PMH: Asthma, atrial for ablation, CHF, CAD with [place]. Hypertension, diabetes. History of CVA. ROS: pos: as above neg: palpitations, unusual back pain, unilateral numbness or tingling or weakness, productive cough, fever, dysuria, change in bowel habits. - Related Data Home Medications Medication Instructions Recorded Confirmed Aspirin [Lo-Dose Aspirin EC] 81 mg PO DAILY 08/10/17 02/01/18 Atorvastatin [Lipitor] 40 mg PO HS 08/10/17 02/01/18 Carvedilol 3.125 mg PO BID 08/10/17 02/01/18 Cinnamon Bark [Cinnamon] 500 mg PO DAILY 08/10/17 02/01/18 Isosorbide MONOnitrate [Isosorbide 120 mg PO DAILY 08/10/17 02/01/18 Mononitrate ER] Lisinopril 2.5 mg PO DAILY 08/10/17 02/01/18 Nitroglycerin [Nitrostat] 0.4 mg SL Q5M PRN 08/10/17 02/01/18 [place]-3/Dha/Epa/Fish Oil [Fish Oil 1 cap PO DAILY 08/10/17 02/01/18 1,000 mg Softgel] Potassium Chloride [K-Tab ER] 10 meq PO DAILY 08/10/17 02/01/18 Ticagrelor [Brilinta] 90 mg PO BID 08/10/17 02/01/18 Previous Rx's Medication Instructions Recorded Acetaminophen [Tylenol] 650 mg PO Q6HR PRN tablet 09/01/17 Furosemide [Lasix] 20 mg PO BID #60 tablet 11/10/17 Allergies Allergy/AdvReac Type Severity Reaction Status Date / Time Oxycodone [From Percocet] Allergy Hives Verified 09/01/17 16:21 tramadol Allergy Hives Verified 09/01/17 16:21 All systems ED: reviewed and negative except as stated. Review of Systems: As Per HPI Past Medical History - Past Medical History Medical history: Reports: asthma, atrial fibrillation, CHF, coronary artery disease, CVA, diabetes, hypertension, myocardial infarction, thyroid disease Surgical history: Reports: angioplasty/stent, cholecystectomy, coronary bypass (CABG), pacemaker/AICD Psychiatric history: Reports: no psych history - Social History Smoking Status: Former smoker Smokeless Tobacco Status: No Alcohol use: Reports: none Drug use: Reports: none Physical Exam Vital Signs Reviewed General: Patient is alert, oriented, and in mild respiratory distress-mild accessory muscle usage in breathing through pursed lips. Head: atraumatic, normocephalic Eye: normal appearance, PERRL, EOMI, no scleral icterus, no conjunctival injection ENT: mucous membranes moist, normal external ear exam Neck: normal inspection, trachea midline, full ROM Chest: normal inspection, symmetric chest rise Respiratory: Poor respiratory effort. Prolonged expiratory phase. Poor air entry bilaterally. Bilateral breath sounds have faint expiratory crackles with no wheezes or rhonchi. Cardiovascular: Regular rate and rhythm. No clicks, rubs, gallops, or murmors. Normal heart sounds. No pedal edema bilaterally. Bilateral posterior tibial pulses 2/4 equal. Abdomen: Bowel sounds present normoactive x-4 quadrants. Abdomen is soft, nondistended, and nontender. No guarding or rebound. No organomegaly noted. Musculoskeletal: Spontaneously moving all extremities. Skin: warm, dry, intact. Neuro: GCS 15. Alert and oriented x4. Sensation light touch intact. Psych: Patient's affect is appropriate for situation. Course Course Narrative: EKG dated 02/01/18 at 14:50 interpreted without cardiology as an AV dual paced with rate of 66. OH 141. QRS 28. QTC 538. Compared to previous EKG dated 12/20/2017 also showing atrial paced. Concern for multiple possible etiologies of patient's dyspnea including infectious versus cardiac versus acute exacerbation of COPD. On initial presentation, patient had accessory muscle usage and purse lip breathing despite supplemental nasal cannula. Chest x-ray is concerning for right lower lobe pneumonia. Will begin empiric treatment for community-acquired pneumonia. I discussed the above with the admitting hospitalist, Dr. Nina, who agrees to accept the patient for continued respiratory support for community-acquired pneumonia. Chest X-Ray 02/01/18 14:43 IMPRESSION: 1. Findings suggestive of cardiomegaly and pulmonary venous congestion. 2. Opacity in the right lower lung. This is suggestive of pleural effusion and partial atelectasis. Underlying pneumonia is not excluded. D/ / Joss Holguin MD / Joss Holguin MD Interpreting Provider: Joss Holguin MD Vital Signs Temperature 98 F 02/01/18 14:57 Pulse Rate 78 02/01/18 14:57 Respiratory Rate 21 02/01/18 14:57 Blood Pressure 142/112 02/01/18 14:57 O2 Sat by Pulse Oximetry 95 02/01/18 14:57 Temperature 98 F 02/01/18 14:57 Pulse Rate 78 02/01/18 14:57 Respiratory Rate 21 02/01/18 14:57 Blood Pressure 142/112 02/01/18 14:57 O2 Sat by Pulse Oximetry 95 02/01/18 14:57 Oxygen Delivery Oxygen Delivery Nasal Cannula Shortness of Breath/Dyspnea - Lab Data Result diagrams: 02/01/18 14:50 02/01/18 14:50 Lab Results 02/01/18 02/01/18 Range/Units 14:50 14:50 WBC 7.7 (4.3-11.1) K/mcL RBC 4.94 (4.19-5.50) M/mcL Hgb 14.7 (12.9-16.9) g/dL Hct 44.2 (37.5-50.1) % MCV 89.5 (83.0-100.0) fL MCH 29.8 (28.0-33.3) pg MCHC 33.3 (31.6-35.5) g/dL RDW 13.8 (11.5-14.5) % Plt Count 173 (140-400) K/mcL MPV 11.3 (9.4-12.4) fL Immature Gran % 0.3 (0-4) % Seg Neutrophils % 65.1 % Lymphocytes % 20.3 % Monocytes % 10.4 % Eosinophils % 3.0 % Basophils % 0.9 % Neutrophils # 5.0 (1.6-8.9) K/mcL Lymphocytes # 1.6 (0.6-4.6) K/mcL Monocytes # 0.8 (0.0-1.3) K/mcL Eosinophils # 0.2 (0.0-0.6) K/mcL Basophils # 0.1 (0.0-0.2) K/mcL Sodium 140 (136-145) mEq/L Potassium 3.9 (3.5-5.1) mEq/L Chloride 105 (98-107) mEq/L Carbon Dioxide 27 (23-29) mEq/L BUN 25 H (8-23) mg/dL Creatinine 1.17 (0.70-1.30) mg/dL Est GFR ( Amer) > 60 (> 60) Est GFR (Non-Af Amer) > 60 (> 60) BUN/Creatinine Ratio 21 (6-26) Glucose 138 H (70-105) mg/dL Calculated Osmolality 297 (280-300) Calcium 9.5 (8.6-10.3) mg/dL Troponin I 0.03 (< 0.04) ng/mL
--- NOTE | 2018-02-01 15:28 | Emergency Department Note ---
Disposition Clinical Impression: Shortness of breath Disposition: Still a Patient Referrals: Lance Cronin MD [Primary Care Provider] - General Adult HPI - General Chief complaint: ED Chest Pain Stated complaint: SOB chest pain Time Seen by Provider: 02/01/18 14:43 Source: patient Limitations: no limitations Nursing Notes Reviewed: Yes Vital Signs Reviewed: Yes - History of Present Illness HPI Narrative: Attestation note ED attending note I examined this patient and my medical decision-making was reviewed with the emergency medicine resident Dr.KURT PEPPER. I agree with the documented findings, disposition and treatment plan as described except to the extent set forth below. Briefly: 77-year-old male history of stents and coronary artery disease DE in the past. Has had multiple ED visits for other chest pain and/or shortness of breath. Comes in with chest pain and shortness of breath. EKG shows no acute ischemic changes. Patient says that he is getting a little more short of breath lying down. Faint crackles in the lung bases. Patient getting a chest x-ray and screening labs. Disposition pending. Pain Scale: 8 - Related Data Home Medications Medication Instructions Recorded Confirmed Aspirin [Lo-Dose Aspirin EC] 81 mg PO DAILY 08/10/17 12/21/17 Atorvastatin [Lipitor] 40 mg PO HS 08/10/17 12/21/17 Carvedilol 3.125 mg PO BID 08/10/17 12/21/17 Cinnamon Bark [Cinnamon] 500 mg PO DAILY 08/10/17 12/21/17 Isosorbide MONOnitrate [Isosorbide 120 mg PO DAILY 08/10/17 12/21/17 Mononitrate ER] Lisinopril 2.5 mg PO DAILY 08/10/17 12/21/17 Nitroglycerin [Nitrostat] 0.4 mg SL Q5M PRN 08/10/17 12/21/17 [place]-3/Dha/Epa/Fish Oil [Fish Oil 1 cap PO DAILY 08/10/17 12/21/17 1,000 mg Softgel] Potassium Chloride [K-Tab ER] 10 meq PO DAILY 08/10/17 12/21/17 Ticagrelor [Brilinta] 90 mg PO BID 08/10/17 12/21/17 Previous Rx's Medication Instructions Recorded Acetaminophen [Tylenol] 650 mg PO Q6HR PRN tablet 09/01/17 Furosemide [Lasix] 20 mg PO BID #60 tablet 11/10/17 Allergies Allergy/AdvReac Type Severity Reaction Status Date / Time Oxycodone [From Percocet] Allergy Hives Verified 09/01/17 16:21 tramadol Allergy Hives Verified 09/01/17 16:21 Past Medical History - Past Medical History Medical history: Reports: asthma, atrial fibrillation, CHF, coronary artery disease, CVA, diabetes, hypertension, myocardial infarction, thyroid disease Surgical history: Reports: angioplasty/stent, cholecystectomy, coronary bypass (CABG), pacemaker/AICD Psychiatric history: Reports: no psych history - Social History Smoking Status: Former smoker Smokeless Tobacco Status: No Alcohol use: Reports: none Drug use: Reports: none Physical Exam - General Limitations: no limitations General appearance: alert Course Vital Signs Temperature 98 F 02/01/18 14:57 Pulse Rate 78 02/01/18 14:57 Respiratory Rate 21 02/01/18 14:57 Blood Pressure 142/112 02/01/18 14:57 O2 Sat by Pulse Oximetry 95 02/01/18 14:57 Temperature 98 F 02/01/18 14:57 Pulse Rate 78 02/01/18 14:57 Respiratory Rate 21 02/01/18 14:57 Blood Pressure 142/112 02/01/18 14:57 O2 Sat by Pulse Oximetry 95 02/01/18 14:57 Oxygen Delivery Oxygen Delivery Nasal Cannula
[2018-02-01 15:38] LABS: BUN/Creatinine Ratio 21 (6-26); Blood Urea Nitrogen 25 mg/dL (8-23); Calcium 9.5 mg/dL (8.6-10.3); Carbon Dioxide 27 mEq/L (23-29); Chloride 105 mEq/L (98-107); Glucose 138 mg/dL (70-105); Osmolality,Calculated 297 (280-300); Potassium 3.9 mEq/L (3.5-5.1); Sodium 140 mEq/L (136-145); Troponin I 0.03 ng/mL (< 0.04); eGFR For Non-African Americans > 60 (> 60)
[2018-02-01] MEDS ORDERED: Azithromycin 500 MG in D5% in Water 250 ML IVPB ONE (16:58)
[2018-02-01 17:14] LABS: Basophils # 0.1 K/mcL (0.0-0.2); Basophils % 0.9 %; Eosinophils # 0.2 K/mcL (0.0-0.6); Hematocrit 44.2 % (37.5-50.1); Hemoglobin 14.7 g/dL (12.9-16.9); Immature Granulocytes % 0.3 % (0-4); Lymphocytes # 1.6 K/mcL (0.6-4.6); Lymphocytes % 20.3 %; Mean Corpuscular HGB Conc 33.3 g/dL (31.6-35.5); Mean Corpuscular Hemoglobin 29.8 pg (28.0-33.3); Mean Corpuscular Volume 89.5 fL (83.0-100.0); Mean Platelet Volume 11.3 fL (9.4-12.4); Monocytes # 0.8 K/mcL (0.0-1.3); Monocytes % 10.4 %; Platelet Count 173 K/mcL (140-400); Red Blood Count 4.94 M/mcL (4.19-5.50); Red Cell Distribution Width 13.8 % (11.5-14.5); Segmented Neutrophils % 65.1 %
--- NOTE | 2018-02-01 19:49 | Internal Med History&Physical ---
Date of Encounter: 02/01/18 Time of Encounter: 19:47 Internal Medicine - H&P: HPI Chief complaint: Dyspnea Admitted From: Home History of present illness: Yue Pizarro is a 77-year-old male with a PMH of asthma, atrial fibrillation, CHF, CAD, CVA, DM, HTN, [place] s/p CABG, pacemaker/AICD, and thyroid disease who presented to [facility] ED on 02/01/18 with chief complaint of SOB 1 day. Describes his dyspnea as progressively worsening. Worse when lying supine, improved when sitting upright. Patient normally uses 3-4 L of oxygen via nasal cannula at night, but reports that his oxygen requirement has increased, and he now has to use his oxygen throughout the day. Admitted to having a dry cough. Upon arrival to the emergency department, patients vital signs were as follows: Temp 98, HR 78, RR 21, BP 142/112, O2 sat 95. Laboratory analysis was unremarkable. CXR demonstrated findings suggestive of cardiomegaly and pulmonary venous congestion, opacity in RLL, suggestive of pleural effusion and partial atelectasis. Possible PNA. EKG showed no acute ischemic changes. Patient received a one-time dose of Augmentin and Zithromax. Patient was seen and examined at bedside; he reports feeling better now than he did when he first arrived. He admits to dyspnea on exertion, orthopnea, paroxysmal nocturnal dyspnea, and cough, but denies fever, chills, nausea, vomiting, chest pain, diaphoresis, or palpitations. No further complaints. Past Med Surg Social Fam HX - Past Medical History Medical history: asthma, atrial fibrillation, CHF, coronary artery disease, CVA, diabetes, hypertension, myocardial infarction, thyroid disease Additional medical history: very hard of hearing Psychiatric history: no psych history - Past Surgical History Surgical History: angioplasty/stent, cholecystectomy, coronary bypass (CABG), pacemaker/AICD Additional surgical history: stent placement - Social History Smoking Status: Former smoker Smokeless Tobacco Status: No Alcohol use: none Drug use: none - Family History Grandfather Family Member Ethnicity: Non- Living Status: Hx Family Cardiac Disorders: Yes Mother Family Member Ethnicity: Non- Living Status: Hx Family Neurologic Disorders: Yes (CVA) Father Adopted: No Family Member Ethnicity: Non- Living Status: Hx Family Cardiac Disorders: No Hx Family Respiratory Disorders: No Hx Family Cancer: Yes (Unknown what type) Hx Family GI Disorders: No Hx Family Endocrine Disorder: No Hx Family Neuromuscular Disorders: No Hx Family Neurologic Disorders: No Hx Family HEENT Disorders: No Hx Family Autoimmune Disorders: No Internal Medicine - H&P: Meds Aspirin [Lo-Dose Aspirin EC] 81 mg PO DAILY 08/10/17 [History] Atorvastatin [Lipitor] 40 mg PO HS 08/10/17 [History] Carvedilol 3.125 mg PO BID 08/10/17 [History] Cinnamon Bark [Cinnamon] 500 mg PO DAILY 08/10/17 [History] Isosorbide MONOnitrate [Isosorbide Mononitrate ER] 120 mg PO DAILY 08/10/17 [History] Lisinopril 2.5 mg PO DAILY 08/10/17 [History] Nitroglycerin [Nitrostat] 0.4 mg SL Q5M PRN 08/10/17 [History] [place]-3/Dha/Epa/Fish Oil [Fish Oil 1,000 mg Softgel] 1 cap PO DAILY 08/10/17 [History] Potassium Chloride [K-Tab ER] 10 meq PO DAILY 08/10/17 [History] Ticagrelor [Brilinta] 90 mg PO BID 08/10/17 [History] Acetaminophen [Tylenol] 650 mg PO Q6HR PRN tablet 09/01/17 [Rx] Furosemide [Lasix] 20 mg PO BID #60 tablet 11/10/17 [Rx] Allergy/AdvReac Type Severity Reaction Status Date / Time Oxycodone [From Percocet] Allergy Hives Verified 09/01/17 16:21 tramadol Allergy Hives Verified 09/01/17 16:21 All Systems PM: A 10-system review of systems was performed and is negative for pertinent findings except as documented above in the HPI. - Constitutional Constitutional: as per HPI, no chills, no fever(s), no night sweats - EENT Eyes: as per HPI, no change in vision, no discharge, no pain, no photophobia Ears: as per HPI, no ear discharge, no ear pain, no tinnitus Nose, mouth and throat: as per HPI, no dysphagia, no nasal discharge, no neck pain, no sore throat - Cardiovascular Cardiovascular ROS IM: as per HPI, dyspnea, dyspnea on exertion, orthopnea, paroxysmal nocturnal dyspnea, no chest pain, no diaphoresis, no lightheadedness, no palpitations, no syncope - Respiratory Respiratory: as per HPI, cough, dyspnea, dyspnea on exertion, no wheezing, no excessive phlegm production - Gastrointestinal Gastrointestinal: as per HPI, no abdominal pain, no diarrhea, no hematemesis, no hematochezia, no melena, no nausea, no vomiting - Musculoskeletal Musculoskeletal ROS IM: as per HPI, no numbness, no tingling - Integumentary Integumentary IM: as per HPI, no rash, no unusual bruising - Hematologic/Lymphatic Hematologic/Lymphatic: as per HPI, no easy bruising - Constitutional Vitals: Temp Pulse Resp BP Pulse Ox 98 F 68 17 139/86 96 02/01/18 14:57 02/01/18 19:29 02/01/18 19:29 02/01/18 19:29 02/01/18 19:29 Exam: General: A&O X3, conversant, no acute distress Head: atraumatic, normocephalic Eye: PERRL, EOMI, conjuntiva pink, sclera anicteric Neck: Supple, trachea midline; No lymphadenopathy Respiratory: Diminished breath sounds, prolonged expiratory phase, bibasilar crackles Cardiovascular: RRR, +S1, +S2; no murmurs, rubs, gallops Abdomen: Soft, nontender, distended Extremities: trace pedal edema b/l Psychiatric: Normal affect, normal mood Skin: Dry, intact Internal Med - H&P Results - Labs CBC & Chem 7: 02/01/18 14:50 02/01/18 14:50 Labs: Short CBC 02/01/18 Range/Units 14:50 WBC 7.7 (4.3-11.1) K/mcL Hgb 14.7 (12.9-16.9) g/dL Hct 44.2 (37.5-50.1) % Plt Count 173 (140-400) K/mcL Neutrophils # 5.0 (1.6-8.9) K/mcL BMP 02/01/18 14:50 Sodium 140 Potassium 3.9 Chloride 105 Carbon Dioxide 27 BUN 25 H Creatinine 1.17 Glucose 138 H Calcium 9.5 Cardiac Enzymes 02/01/18 Range/Units 14:50 Troponin I 0.03 (< 0.04) ng/mL - Impressions ITS Impressions Chest X-Ray 02/01/18 14:43 IMPRESSION: 1. Findings suggestive of cardiomegaly and pulmonary venous congestion. 2. Opacity in the right lower lung. This is suggestive of pleural effusion and partial atelectasis. Underlying pneumonia is not excluded. D/ / Joss Holguin MD / Joss Holguin MD Interpreting Provider: Joss Holguin MD - Assessment and plan (1) Acute exacerbation of CHF (congestive heart failure) Current Visit: No Status: Acute Assessment and plan: - Known history of HFrEF; TTE on 12/20/17 demonstrated: LVEF 35-40 %, moderate segmental LV systolic dysfunction - Chest x-ray 02/01: Cardiomegaly with increased pulmonary vascular congestion - Presented with progressive dyspnea and orthopnea - Normally takes Lasix 20 mg twice a day at home Plan: - Repeat echocardiogram - 40 mg Lasix IV twice a day - Resume home medications - Strict I&Os, daily weights, fluid restriction of 1.5 L - O2 via NC as needed; keep SpO2 > 92% - BNP with a.m. labs Qualifiers: Qualified Code(s): I50.9 - Heart failure, unspecified (2) COPD (chronic obstructive pulmonary disease) Current Visit: Yes Status: Acute Assessment and plan: Patient has a history of underlying O2-dependent COPD at 3-4 L O2 at night - Patients oxygen requirements have increased to continuous use Plan: - DuoNeb PRN - O2 via NC as needed; keep SpO2 > 92% Qualifiers: Qualified Code(s): J44.9 - Chronic obstructive pulmonary disease, unspecified (3) Diabetes Current Visit: Yes Status: Acute Assessment and plan: - Known history of DM - Glucose was elevated at 138 on presentation Plan: - Sliding scale insulin coverage - Accuchecks Q - Diabetic Diet Qualifiers: Qualified Code(s): E11.9 - Type 2 diabetes mellitus without complications (4) HTN (hypertension) Current Visit: No Status: Chronic Assessment and plan: Known history of hypertension - Will resume home meds Qualifiers: Hypertension type: essential hypertension Qualified Code(s): I10 - Essential (primary) hypertension (5) CAD (coronary artery disease) Current Visit: No Status: Chronic Assessment and plan: Known history of CAD - Resume home medications Qualifiers: Coronary Disease-Associated Artery/Lesion type: bypass graft [place] vs. transplanted heart: [place] heart Associated angina: with stable angina Qualified Code(s): I25.708 - Atherosclerosis of coronary artery bypass graft(s), unspecified, with other forms of angina pectoris - Time Spent With Patient Total time spent is greater than 50% in coordination of care (as documented) at patient's floor/unit and/or counseling patient: 25 - 35 minutes
[2018-02-01] MEDS ORDERED: Naloxone 0.4 MG/ML INJ IVP PRN (19:53)
--- NOTE | 2018-02-01 20:01 | Event Note ---
Date of Encounter: 02/01/18 Time of Encounter: 19:59 Patient was seen and examined. I agree with the H&P as written by the resident physician. Patient is very well-known to the hospitalist service and is a 77-year-old male with an extensive history with questionable compliance who has a history of coronary artery disease status post CABG and PCI, CVA, A. fib, systolic heart failure with an EF of around 40% status post pacemaker/AICD, diabetes mellitus, hypertension, asthma, thyroid disease who presented to ED complaining of short ness of breath. The patient was stable enough to possibly be discharged however he did not feel comfortable and wanted to be admitted. There was a chest x-ray that showed vascular congestion and possible pneumonia and he was given antibiotics in the ED. He has no fever has no white count. His vitals were stable and he was on about 2 L of nasal cannula oxygen in the ED which is around his baseline. He feels short of breath when laying flat. Patient usually gets admitted and gets IV Lasix and this discharged. He has refused placement in the past. GEN: NAD CVS: RRR. S1, S2, No m/r/g RESP: Diminished with bibasilar crackles ABD: Soft, NT, ND, +BS EXT: Trace bilateral edema. 2+ DP, No rashes NEURO: Nonfocal Will treat him as CHF exacerbation with IV lasix 40 mg BID Resume rest of home meds Patient has no signs of pneumonia and no need for abx
[2018-02-01] MEDS ORDERED: *HR* Dextrose 50 % in Water (Syg) 50 ML SYRINGE IVP PRN (22:04)
[2018-02-01] MEDS ORDERED: D5% in Water 1,000 ML IVC PRN (22:04)
[2018-02-01] MEDS ORDERED: Dextrose Gel 15 GM/37.5 ML TUBE PO PRN ×2 (22:04)
[2018-02-01] MEDS ORDERED: Ipratropium/Albuterol Neb 3 ML IH PRN (22:05)
[2018-02-02] MEDS: *HR* Ticagrelor 90 MG TABLET PO SCH ×3 (02:19→20:50)
[2018-02-02] MEDS: Nitroglycerin 0.4 MG TAB.SUBL SL PRN ×2 (04:42→09:37)
[2018-02-02 05:07] LABS: Basophils # 0.1 K/mcL (0.0-0.2); Basophils % 0.9 %; Eosinophils # 0.3 K/mcL (0.0-0.6); Eosinophils % 3.7 %; Hematocrit 41.8 % (37.5-50.1); Hemoglobin 13.9 g/dL (12.9-16.9); Immature Granulocytes % 0.4 % (0-4); Lymphocytes # 1.6 K/mcL (0.6-4.6); Lymphocytes % 19.6 %; Mean Corpuscular HGB Conc 33.3 g/dL (31.6-35.5); Mean Corpuscular Hemoglobin 29.3 pg (28.0-33.3); Mean Corpuscular Volume 88.2 fL (83.0-100.0); Mean Platelet Volume 10.5 fL (9.4-12.4); Monocytes # 0.9 K/mcL (0.0-1.3); Monocytes % 11.1 %; Neutrophils # 5.1 K/mcL (1.6-8.9); Platelet Count 142 K/mcL (140-400); Red Blood Count 4.74 M/mcL (4.19-5.50); Red Cell Distribution Width 13.6 % (11.5-14.5); Segmented Neutrophils % 64.3 %
[2018-02-02] MEDS: *HR* Heparin 5,000 UNIT/ML VIAL SQ SCH ×3 (05:09→20:51)
[2018-02-02 05:11] LABS: INR 1.3; Prothrombin Time 14.6 Seconds (9.4-12.1)
[2018-02-02 05:27] LABS: BUN/Creatinine Ratio 21 (6-26); Blood Urea Nitrogen 24 mg/dL (8-23); Calcium 9.2 mg/dL (8.6-10.3); Carbon Dioxide 26 mEq/L (23-29); Chloride 106 mEq/L (98-107); Glucose 112 mg/dL (70-105); Osmolality,Calculated 295 (280-300); Sodium 140 mEq/L (136-145); eGFR For Non-African Americans > 60 (> 60)
[2018-02-02] MEDS: Insulin LISPRO 300 UNITS/3 ML VIAL SQ SCH ×4 (07:47→20:50)
[2018-02-02] MEDS ORDERED: Perflutren Lipid Microsphere 1.3 ML in 0.9 % Sodium Chloride 8.7 ML IVP ONE (08:42)
[2018-02-02] MEDS ORDERED: Perflutren Lipid Microsphere 2 ML VIAL ONE (08:49)
[2018-02-02] MEDS ORDERED: Cinnamon Bark [Cinnamon] 500 MG PO SCH (09:00)
[2018-02-02] MEDS ORDERED: [Fish Oil 1,000 Mg PO SCH (09:00)
[2018-02-02] MEDS: Isosorbide MONOnitrate (24 HR) 60 MG TAB.ER.24H PO SCH (09:38)
[2018-02-02] MEDS: Aspirin Enteric Coated 81 MG Tablet PO SCH (09:38)
[2018-02-02] MEDS: Furosemide 40 MG/4 ML VIAL IVP SCH ×2 (09:38→17:00)
[2018-02-02] MEDS: Acetaminophen 325 MG TABLET PO PRN ×2 (12:15→20:49)
--- NOTE | 2018-02-02 16:16 | Internal Med Progress Note ---
Hospitalist Progress Note - Encounter Date of Encounter: 02/02/18 Time of Encounter: 16:14 - Subjective Interval History: Pt having conversational dyspnea. He denies chest pain. He denies fever, chills, N/V or diarrhea. - Exam Vitals: Temp Pulse Resp BP Pulse Ox 98.1 F 64 18 130/72 97 02/02/18 11:45 02/02/18 11:45 02/02/18 11:45 02/02/18 11:45 02/02/18 11:45 Exam: General: A&O X3, conversant, no acute distress Head: atraumatic, normocephalic Eye: PERRL, EOMI, conjuntiva pink, sclera anicteric Neck: Supple, trachea midline; No lymphadenopathy Respiratory: Diminished breath sounds, prolonged expiratory phase, bibasilar crackles Cardiovascular: RRR, +S1, +S2; no murmurs, rubs, gallops Abdomen: Soft, nontender, distended Extremities: trace pedal edema b/l Psychiatric: Normal affect, normal mood Skin: Dry, intact - Assessment and Plan (1) Acute and chronic respiratory failure Current Visit: Yes Status: Acute Assessment and Plan: Pt is on 2L NC of oxygen at baseline and requiring 4L NC. Respiratory failure multifactorial due to volume overload and COPD exacerbation possibly due to poor medication compliance. (2) Acute exacerbation of CHF (congestive heart failure) Current Visit: No Status: Acute Assessment and Plan: - Known history of HFrEF; TTE on 12/20/17 demonstrated: LVEF 35-40 %, moderate segmental LV systolic dysfunction - Chest x-ray 02/01: Cardiomegaly with increased pulmonary vascular congestion - Presented with progressive dyspnea and orthopnea - Normally takes Lasix 20 mg twice a day at home Plan: - Repeat echocardiogram results below - Lasix 40 mg IV twice a day - Resume home medications - Strict I&Os, daily weights, fluid restriction of 1.5 L - O2 via NC as needed; keep SpO2 > 92% - BNP with a.m. labs Echo EV/EV echocardiogram w enhance Impressions: LVEF 45%. Mild global left ventricular systolic dysfunction. Moderate left ventricular diastolic dysfunction. Normal right ventricular structure and function. Moderately dilated left atrium. Mildly dilated right atrium. Mild mitral regurgitation. Mild tricuspid regurgitation. Moderate pulmonary hypertension. Trace pericardial effusion without evidence of tamponade. (3) COPD exacerbation Current Visit: Yes Status: Acute Assessment and Plan: Patient has a history of underlying O2-dependent COPD at 2 L O2 per case management. - Patients oxygen requirements have increased to continuous use. Pt having some increase in work of breathing and expiratory wheezing Plan: - DuoNeb scheduled and PRN - Adding Solumedrol - O2 via NC as needed; keep SpO2 > 92% (4) IDDM (insulin dependent diabetes mellitus) Current Visit: No Status: Chronic Assessment and Plan: - Known history of Diabetes mellitus Plan: - Sliding scale insulin coverage - Accu-check monitoring - Diabetic Diet (5) CAD (coronary artery disease) Current Visit: No Status: Chronic Assessment and Plan: ASA and atorvastatin. 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 Describes his dyspnea as progressively worsening. Worse when lying supine, improved when sitting upright. Patient normally uses 3-4 L of oxygen via nasal cannula at night, but reports that his oxygen requirement has increased, and he now has to use his oxygen throughout the day. Admitted to having a dry cough. Upon arrival to the emergency department, patients vital signs were as follows: Temp 98, HR 78, RR 21, BP 142/112, O2 sat 95. Laboratory analysis was unremarkable. CXR demonstrated findings suggestive of cardiomegaly and pulmonary venous congestion, opacity in RLL, suggestive of pleural effusion and partial atelectasis. Possible PNA. EKG showed no acute ischemic changes. Patient received a one-time dose of Augmentin and Zithromax. Patient was seen and examined at bedside; he reports feeling better now than he did when he first arrived. He admits to dyspnea on exertion, orthopnea, paroxysmal nocturnal dyspnea, and cough, but denies fever, chills, nausea, vomiting, chest pain, diaphoresis, or palpitations. No further complaints. - Time Spent with Patient Total time spent is greater than 50% in coordination of care (as documented) at patient's floor/unit and/or counseling patient: less than 15 minutes Plan of Care Discussed with: patient Internal Medicine: Result - Labs CBC & Chem 7: 02/02/18 04:29 02/02/18 04:29 Labs: Short CBC 02/01/18 02/02/18 Range/Units 14:50 04:29 WBC 7.7 7.9 (4.3-11.1) K/mcL Hgb 14.7 13.9 (12.9-16.9) g/dL Hct 44.2 41.8 (37.5-50.1) % Plt Count 173 142 (140-400) K/mcL Neutrophils # 5.0 5.1 (1.6-8.9) K/mcL BMP 02/02/18 04:29 Sodium 140 Potassium 4.0 Chloride 106 Carbon Dioxide 26 BUN 24 H Creatinine 1.14 Glucose 112 H Calcium 9.2 - ABG Interpretation ABG results: PT/INR, D-dimer PT 14.6 Seconds (9.4-12.1) H 02/02/18 04:29 - Impressions Impressions Chest X-Ray 02/01/18 14:43 IMPRESSION: 1. Findings suggestive of cardiomegaly and pulmonary venous congestion. 2. Opacity in the right lower lung. This is suggestive of pleural effusion and partial atelectasis. Underlying pneumonia is not excluded. D/ / Joss Holguin MD / Joss Holguin MD Interpreting Provider: Joss Holguin MD Echocardiogram 02/02/18 19:55 Impressions: LVEF 45%. Mild global left ventricular systolic dysfunction. Moderate left ventricular diastolic dysfunction. Normal right ventricular structure and function. Moderately dilated left atrium. Mildly dilated right atrium. Mild mitral regurgitation. Mild tricuspid regurgitation. Moderate pulmonary hypertension. Trace pericardial effusion without evidence of tamponade. Left Ventricular Wall Motion: Rest Echo Findings The apex, apical inferior, mid inferior, basal inferior, apical anterior, mid anterior, basal anterior, apical septal, mid inferior septal, basal inferior septal, apical lateral, mid anterior lateral, basal anterior lateral, mid anterior septal, mid inferior lateral, basal anterior septal and basal inferior lateral mena were hypokinetic. Findings: Study Quality * Technically adequate exam. ECG Findings * Paced rhythm. Left Ventricle * LVEF 45%. * Normal LV chamber size and wall thickness. * Mild global left ventricular systolic dysfunction. * Moderate left ventricular diastolic dysfunction. * Definity echo contrast was used. * Atypical septal motion consistent with paced rhythm. Right Ventricle * Normal right ventricular structure and function. Left Atrium * Moderately dilated left atrium. Right Atrium * Mildly dilated right atrium. Interatrial Septum * Interatrial septum not well evaluated. * No evidence of PFO by color Doppler. Aortic Valve * Trileaflet aortic valve. * Mildly calcified aortic valve leaflets. * No aortic stenosis. * No aortic regurgitation. Mitral Valve * Normal mitral valve structure. * No mitral stenosis. * Mild mitral regurgitation. Tricuspid Valve * Normal tricuspid valve structure. * No tricuspid stenosis. * Mild tricuspid regurgitation. * Estimated RVSP is 51 mmHg. * Estimated RA pressure is 15 mmHg. * Moderate pulmonary hypertension. Pulmonic Valve * Pulmonic valve is not well visualized. * No pulmonic regurgitation. * No pulmonic stenosis. Aorta * Normally sized aortic root. Pericardium * There is a trivial pericardial effusion present. * There is no echocardiographic evidence of tamponade. IVC * The IVC is dilated. * < 50% respiratory change. Device lead * A device lead was visualized in the right atrium and right ventricle. Consult Discharge Plan - Plan Referrals: Lance Cronin MD [Primary Care Provider] - _ (2) Acute exacerbation of CHF (congestive heart failure) Qualifiers: Qualified Code(s): I50.9 - Heart failure, unspecified (5) CAD (coronary artery disease) Qualifiers: Coronary Disease-Associated Artery/Lesion type: bypass graft [place] vs. tra [place]planted heart: [place] heart Associated angina: with stable angina Qualified Code(s): I25.708 - Atherosclerosis of coronary artery bypass graft(s), unspecified, with other forms of angina pectoris (6) HTN (hypertension) Qualifiers: Hypertension type: essential hypertension Qualified Code(s): I10 - Essential (primary) hypertension
[2018-02-02] MEDS: MethylPREDNISolone 40 MG/ML VIAL IVP SCH (17:00)
[2018-02-03] MEDS: MethylPREDNISolone 40 MG/ML VIAL IVP SCH (05:56)
[2018-02-03] MEDS: *HR* Heparin 5,000 UNIT/ML VIAL SQ SCH ×3 (05:56→21:18)
[2018-02-03] MEDS: Insulin LISPRO 300 UNITS/3 ML VIAL SQ SCH ×4 (07:49→21:20)
[2018-02-03] MEDS: Isosorbide MONOnitrate (24 HR) 60 MG TAB.ER.24H PO SCH (09:30)
[2018-02-03] MEDS: *HR* Ticagrelor 90 MG TABLET PO SCH ×2 (09:30→21:15)
[2018-02-03] MEDS: Furosemide 40 MG/4 ML VIAL IVP SCH ×2 (09:30→17:09)
[2018-02-03] MEDS: Aspirin Enteric Coated 81 MG Tablet PO SCH (09:30)
--- NOTE | 2018-02-03 09:51 | Internal Med Progress Note ---
Hospitalist Progress Note - Encounter Date of Encounter: 02/03/18 Time of Encounter: 09:30 - Subjective Interval History: Pt was seen and assessed at 0930. He is alert, awake, oriented. He states that he is feeling better and feels like he is breathing better. He reports 7/10 substernal chest pain with radiation to left chest; this is the same chest pain that he has had since admission, no change. He states that last night it was relieved with Tylenol. This morning after breakfast he reported nausea, was given Zofran and he states that he is having diarrhea x 1 since last night. He denies headache, vomiting, dizziness, abdominal pain, or shortness of breath. - Exam Vitals: Temp Pulse Resp BP Pulse Ox 98.0 F 69 17 156/88 94 02/03/18 07:35 02/03/18 07:35 02/03/18 07:35 02/03/18 07:35 02/03/18 07:35 Exam: General: Pt resting quietly on bed, no distress. Skin: pwd, no rashes, lesions, redness Neurological: Pt is alert and awake, oriented x 3, Speech is clear, PERRLA, EOMI, no nystagmus, no pronator drift. strength equal x 4 extremities HEENT: mucous mumbranes moist, no conjuctival pallor Neck: supple, no tracheal deviation, no lymphadenopathy, tenderness, no thyromegaly Heart: S1S2 heard without gallops, clicks, murmurs, no bradycardia or tachycardia, pt has no peripheral edema, pedal and radial pulses palpable bilaterally. Lungs: clear throughout without wheezing, rales, or ronchi, respirations are unlabored Abdomen: soft and non tender with bowel sound present, no hepatomegaly. Psych: Normal affect with good eye contact - Assessment and Plan (1) IDDM (insulin dependent diabetes mellitus) Current Visit: Yes Status: Chronic Assessment and Plan: Continue SSI, accuchecks achs, and diabetic diet. Expect hyperglycemia due to steroids. (2) CAD (coronary artery disease) Current Visit: Yes Status: Chronic Assessment and Plan: Continue ASA and statin Nitroglycerin SL Q5M prn chest pain Brilinta (3) HTN (hypertension) Current Visit: Yes Status: Chronic Assessment and Plan: Continue home doses of Coreg, Imdur, and Lisinopril (4) Acute exacerbation of CHF (congestive heart failure) Current Visit: Yes Status: Acute Assessment and Plan: Pt states that he is breathing more easily 3.1kg weight loss with -1.6 liter diuresis No peripheral edema and lungs clear Continue IV Lasix 40mg IV BID Continue home medicitons Continue strict I and O, daily weights, and 1.5 liter fluid restriction 02 prn to maintain sats > 92% Monitor labs and vitals. Echo EV/EV echocardiogram w enhance Impressions: LVEF 45%. Mild global left ventricular systolic dysfunction. Moderate left ventricular diastolic dysfunction. Normal right ventricular structure and function. Moderately dilated left atrium. Mildly dilated right atrium. Mild mitral regurgitation. Mild tricuspid regurgitation. Moderate pulmonary hypertension. Trace pericardial effusion without evidence of tamponade. (5) Acute and chronic respiratory failure Current Visit: Yes Status: Acute Assessment and Plan: Pt is on 2L NC of oxygen at baseline and requiring 4L NC. Respiratory failure multifactorial due to volume overload and COPD exacerbation possibly due to poor medication compliance. Continue diuresis as above Continue to monitor labs and vitals O2 prn to maintain sats > 92% (6) COPD exacerbation Current Visit: Yes Status: Acute Assessment and Plan: Patient has a history of underlying O2-dependent COPD at 2 L O2 per case management. - Patients oxygen requirements have increased to continuous use. Breathing has improved today and lungs are clear Plan: - DuoNeb scheduled and PRN - Solumedrol IV discontinued, pt will do 5 day Prednisone po burst, 40mg po daily . - O2 via NC as needed; keep SpO2 > 92% DVT Prophylaxis: Heparin SQ - Time Spent with Patient Total time spent is greater than 50% in coordination of care (as documented) at patient's floor/unit and/or counseling patient: less than 15 minutes Plan of Care Discussed with: nurse Internal Medicine: Result - Labs CBC & Chem 7: 02/02/18 04:29 02/02/18 04:29 - ABG Interpretation ABG results: PT/INR, D-dimer PT 14.6 Seconds (9.4-12.1) H 02/02/18 04:29 - Impressions Impressions Echocardiogram 02/02/18 19:55 Impressions: LVEF 45%. Mild global left ventricular systolic dysfunction. Moderate left ventricular diastolic dysfunction. Normal right ventricular structure and function. Moderately dilated left atrium. Mildly dilated right atrium. Mild mitral regurgitation. Mild tricuspid regurgitation. Moderate pulmonary hypertension. Trace pericardial effusion without evidence of tamponade. Left Ventricular Wall Motion: Rest Echo Findings The apex, apical inferior, mid inferior, basal inferior, apical anterior, mid anterior, basal anterior, apical septal, mid inferior septal, basal inferior septal, apical lateral, mid anterior lateral, basal anterior lateral, mid anterior septal, mid inferior lateral, basal anterior septal and basal inferior lateral mena were hypokinetic. Findings: Study Quality * Technically adequate exam. ECG Findings * Paced rhythm. Left Ventricle * LVEF 45%. * Normal LV chamber size and wall thickness. * Mild global left ventricular systolic dysfunction. * Moderate left ventricular diastolic dysfunction. * Definity echo contrast was used. * Atypical septal motion consistent with paced rhythm. Right Ventricle * Normal right ventricular structure and function. Left Atrium * Moderately dilated left atrium. Right Atrium * Mildly dilated right atrium. Interatrial Septum * Interatrial septum not well evaluated. * No evidence of PFO by color Doppler. Aortic Valve * Trileaflet aortic valve. * Mildly calcified aortic valve leaflets. * No aortic stenosis. * No aortic regurgitation. Mitral Valve * Normal mitral valve structure. * No mitral stenosis. * Mild mitral regurgitation. Tricuspid Valve * Normal tricuspid valve structure. * No tricuspid stenosis. * Mild tricuspid regurgitation. * Estimated RVSP is 51 mmHg. * Estimated RA pressure is 15 mmHg. * Moderate pulmonary hypertension. Pulmonic Valve * Pulmonic valve is not well visualized. * No pulmonic regurgitation. * No pulmonic stenosis. Aorta * Normally sized aortic root. Pericardium * There is a trivial pericardial effusion present. * There is no echocardiographic evidence of tamponade. IVC * The IVC is dilated. * < 50% respiratory change. Device lead * A device lead was visualized in the right atrium and right ventricle. Consult Discharge Plan - Plan Referrals: Lance Cronin MD [Primary Care Provider] - (2) CAD (coronary artery disease) Qualifiers: Coronary Disease-Associated Artery/Lesion type: bypass graft [place] vs. transplanted heart: [place] heart Associated angina: with stable angina Qualified Code(s): I25.708 - Atherosclerosis of coronary artery bypass graft(s), unspecified, with other forms of angina pectoris (3) HTN (hypertension) Qualifiers: Hypertension type: essential hypertension Qualified Code(s): I10 - Essential (primary) hypertension (4) Acute exacerbation of CHF (congestive heart failure) Qualifiers: Qualified Code(s): I50.9 - Heart failure, unspecified (5) Acute and chronic respiratory failure Qualifiers: Respiratory failure complication: hypoxia Qualified Code(s): J96.21 - Acute and chronic respiratory failure with hypoxia
[2018-02-03] MEDS ORDERED: Ondansetron 4 MG/2 ML VIAL IVP ONE (10:54)
[2018-02-03] MEDS: Acetaminophen 325 MG TABLET PO PRN ×2 (11:34→21:15)
[2018-02-03] MEDS: predniSONE 20 MG TABLET PO SCH (17:09)
[2018-02-03] MEDS ORDERED: BENZOCAINE/MENTHOL 1 LOZENGE (BAG OF 6) MM ONE (20:13)
[2018-02-04] MEDS: *HR* Heparin 5,000 UNIT/ML VIAL SQ SCH ×3 (06:03→21:31)
[2018-02-04] MEDS: Nitroglycerin 0.4 MG TAB.SUBL SL PRN ×2 (06:27→06:42)
[2018-02-04 07:32] LABS: Basophils % 0.1 %; Red Cell Distribution Width 13.5 % (11.5-14.5)
[2018-02-04 07:34] LABS: Hematocrit 43.2 % (37.5-50.1); Immature Granulocytes % 0.6 % (0-4); Lymphocytes # 0.9 K/mcL (0.6-4.6); Lymphocytes % 3.4 %; Mean Corpuscular HGB Conc 34.7 g/dL (31.6-35.5); Mean Corpuscular Hemoglobin 30.2 pg (28.0-33.3); Mean Corpuscular Volume 87.1 fL (83.0-100.0); Mean Platelet Volume 10.8 fL (9.4-12.4); Monocytes # 1.3 K/mcL (0.0-1.3); Monocytes % 4.9 %; Neutrophils # 24.4 K/mcL (1.6-8.9); Platelet Count 185 K/mcL (140-400); Red Blood Count 4.96 M/mcL (4.19-5.50)
[2018-02-04 07:59] LABS: BUN/Creatinine Ratio 31 (6-26); Blood Urea Nitrogen 40 mg/dL (8-23); Calcium 10.1 mg/dL (8.6-10.3); Carbon Dioxide 23 mEq/L (23-29); Chloride 103 mEq/L (98-107); Glucose 183 mg/dL (70-105); Osmolality,Calculated 298 (280-300); Potassium 4.1 mEq/L (3.5-5.1); Sodium 137 mEq/L (136-145); eGFR For Non-African Americans 55 (> 60)
[2018-02-04 08:21] LABS: Platelet Estimate Normal (Normal)
[2018-02-04] MEDS: Aspirin Enteric Coated 81 MG Tablet PO SCH (08:40)
[2018-02-04] MEDS: *HR* Ticagrelor 90 MG TABLET PO SCH ×2 (08:40→21:29)
[2018-02-04] MEDS: predniSONE 20 MG TABLET PO SCH (08:40)
[2018-02-04] MEDS: Isosorbide MONOnitrate (24 HR) 60 MG TAB.ER.24H PO SCH (08:40)
[2018-02-04] MEDS: Furosemide 40 MG/4 ML VIAL IVP SCH (08:41)
[2018-02-04] MEDS: Insulin LISPRO 300 UNITS/3 ML VIAL SQ SCH ×4 (08:42→21:32)
[2018-02-04 09:33] LABS: Red Cell Distribution Width 13.6 % (11.5-14.5)
[2018-02-04 09:35] LABS: Hematocrit 47.1 % (37.5-50.1); Hemoglobin 15.6 g/dL (12.9-16.9); Mean Corpuscular HGB Conc 33.1 g/dL (31.6-35.5); Mean Corpuscular Hemoglobin 29.3 pg (28.0-33.3); Mean Corpuscular Volume 88.5 fL (83.0-100.0); Mean Platelet Volume 11.1 fL (9.4-12.4); Platelet Count 194 K/mcL (140-400); Red Blood Count 5.32 M/mcL (4.19-5.50)
--- NOTE | 2018-02-04 12:19 | Internal Med Progress Note ---
Hospitalist Progress Note - Encounter Date of Encounter: 02/04/18 Time of Encounter: 12:17 - Subjective Interval History: Seen and examined at bedside. Patient is new to me, information obtained from chart review and patient report. Says overall he is feeling better but still short of breath with exertion. No fever or chills, no abdominal pain nausea or vomiting. He is taking in adequate oral intake. Does not feel he is ready to go home today. - Exam Vitals: Temp Pulse Resp BP Pulse Ox 97.8 F 72 20 146/77 96 02/04/18 11:59 02/04/18 11:59 02/04/18 11:59 02/04/18 11:59 02/04/18 11:59 Exam: General appearance: Present: A&O X 3, pleasant, no acute distress - Head Head exam: Present: atraumatic, normocephalic - Eye Eye exam: Present: PERRL, conjuntiva pink, sclera anicteric Pupils: Present: PERRL - Neck Neck exam general surgery: Present: supple, trachea midline. Absent: lymphadenopathy - Respiratory Respiratory exam: Present: chest wall tenderness, CTAB. Absent: accessory muscle use, rales, rhonchi, wheezes - Cardiovascular Cardiovascular exam: Present: RRR, +S1, +S2. Absent: diastolic murmur, gallop, rubs, systolic murmur - GI/Abdominal GI/Abdominal exam: Present: normal bowel sounds, soft, no peritoneal signs. Absent: distended, tenderness - Extremities Exam Extremities exam: Present: warm, radial pulses palpable and symmetrical. Absent: calf tenderness, cyanotic, pedal edema - Neurological Exam Neurological exam: Present: CN II-XII intact, oriented X3, no focal deficits. Absent: pronater drift, facial droop, speech deficit - Skin Skin exam: Present: dry, intact - Assessment and Plan (1) Acute and chronic respiratory failure Current Visit: Yes Status: Acute Assessment and Plan: Pt is on 2L NC of oxygen at baseline and requiring 4L NC; multifactorial due to volume overload and COPD exacerbation. Continue treating underlying causes as noted below. Wean O2 to home dose as able. (2) Acute exacerbation of CHF (congestive heart failure) Current Visit: Yes Status: Acute Assessment and Plan: Acute on chronic systolic heart failure; presented with SOB. TTE with EF 45% and mild global left ventricular dysfunction. Weight down 3 kg with IV diuresis. Now appears euvolemic, stop IV Lasix and resume home Lasix (3) COPD exacerbation Current Visit: Yes Status: Acute Assessment and Plan: Has known history COPD with chronic respiratory failure. Mild COPD exacerbation suspected. Afebrile, no increase in sputum production. Hold on ATB. Continue steroid burst and nebulizer. Elevated WBC noted and likely secondary to steroids however he does have a significant increase from yesterday's value. Blood cultures ordered for completeness. (4) IDDM (insulin dependent diabetes mellitus) Current Visit: Yes Status: Chronic Assessment and Plan: Continue SSI, accuchecks achs, and diabetic diet. Expect hyperglycemia due to steroids. (5) CAD (coronary artery disease) Current Visit: Yes Status: Chronic Assessment and Plan: per hx. Asymptomatic, denied chest pain. Continue ASA and statin, Brilinta (6) HTN (hypertension) Current Visit: Yes Status: Chronic Assessment and Plan: Continue home doses of Coreg, Imdur, and Lisinopril DVT Prophylaxis: Heparin - Time Spent with Patient Total time spent is greater than 50% in coordination of care (as documented) at patient's floor/unit and/or counseling patient: Internal Medicine: Result - Labs CBC & Chem 7: 02/04/18 09:19 02/04/18 07:11 Labs: Short CBC 02/04/18 02/04/18 Range/Units 07:11 09:19 WBC 26.8 H D 26.3 H (4.3-11.1) K/mcL Hgb 15.0 15.6 (12.9-16.9) g/dL Hct 43.2 47.1 (37.5-50.1) % Plt Count 185 194 (140-400) K/mcL Neutrophils # 24.4 H (1.6-8.9) K/mcL BMP 02/04/18 07:11 Sodium 137 Potassium 4.1 Chloride 103 Carbon Dioxide 23 BUN 40 H Creatinine 1.27 Glucose 183 H Calcium 10.1 - ABG Interpretation ABG results: PT/INR, D-dimer PT 14.6 Seconds (9.4-12.1) H 02/02/18 04:29 Consult Discharge Plan - Plan Referrals: Lance Cronin MD [Primary Care Provider] - 02/08/18 10:15 am (follow up made with PCP.) (1) Acute and chronic respiratory failure Qualifiers: Respiratory failure complication: hypoxia Qualified Code(s): J96.21 - Acute and chronic respiratory failure with hypoxia (2) Acute exacerbation of CHF (congestive heart failure) Qualifiers: Qualified Code(s): I50.9 - Heart failure, unspecified (5) CAD (coronary artery disease) Qualifiers: Coronary Disease-Associated Artery/Lesion type: bypass graft [place] vs. transplanted heart: [place] heart Associated angina: with stable angina Qualified Code(s): I25.708 - Atherosclerosis of coronary artery bypass graft(s), unspecified, with other forms of angina pectoris (6) HTN (hypertension) Qualifiers: Hypertension type: essential hypertension Qualified Code(s): I10 - Essential (primary) hypertension
[2018-02-04] MEDS: 0.9 % Sodium Chloride 1,000 ML IVC SCH (15:24)
[2018-02-04] MEDS: Piperacillin/Tazobactam 3.375 GM in 0.9 % Sodium Chloride Mini Bag 100 ML IVPB SCH (16:31)
[2018-02-04] MEDS: Furosemide 20 MG TABLET PO SCH (17:09)
[2018-02-05] MEDS: Piperacillin/Tazobactam 3.375 GM in 0.9 % Sodium Chloride Mini Bag 100 ML IVPB SCH ×3 (00:28→15:38)
[2018-02-05] MEDS: Acetaminophen 325 MG TABLET PO PRN (01:03)
[2018-02-05] MEDS: 0.9 % Sodium Chloride 1,000 ML IVC SCH (03:52)
[2018-02-05] MEDS: *HR* Heparin 5,000 UNIT/ML VIAL SQ SCH ×3 (05:19→20:31)
[2018-02-05 06:21] LABS: Hematocrit 42.6 % (37.5-50.1); Hemoglobin 14.6 g/dL (12.9-16.9); Mean Corpuscular HGB Conc 34.3 g/dL (31.6-35.5); Mean Corpuscular Hemoglobin 29.9 pg (28.0-33.3); Mean Corpuscular Volume 87.1 fL (83.0-100.0); Mean Platelet Volume 10.5 fL (9.4-12.4); Platelet Count 153 K/mcL (140-400); Red Blood Count 4.89 M/mcL (4.19-5.50); Red Cell Distribution Width 13.8 % (11.5-14.5)
[2018-02-05 06:42] LABS: BUN/Creatinine Ratio 31 (6-26); Blood Urea Nitrogen 40 mg/dL (8-23); Calcium 9.6 mg/dL (8.6-10.3); Carbon Dioxide 23 mEq/L (23-29); Chloride 106 mEq/L (98-107); Glucose 148 mg/dL (70-105); Osmolality,Calculated 301 (280-300); Potassium 4.2 mEq/L (3.5-5.1); Sodium 139 mEq/L (136-145); eGFR For Non-African Americans 54 (> 60)
[2018-02-05] MEDS: Insulin LISPRO 300 UNITS/3 ML VIAL SQ SCH ×4 (08:30→21:10)
[2018-02-05] MEDS: Isosorbide MONOnitrate (24 HR) 60 MG TAB.ER.24H PO SCH (08:32)
[2018-02-05] MEDS: *HR* Ticagrelor 90 MG TABLET PO SCH ×2 (08:32→20:31)
[2018-02-05] MEDS: Furosemide 20 MG TABLET PO SCH ×2 (08:32→15:37)
[2018-02-05] MEDS: predniSONE 20 MG TABLET PO SCH (08:32)
[2018-02-05] MEDS: Aspirin Enteric Coated 81 MG Tablet PO SCH (08:32)
--- NOTE | 2018-02-05 09:46 | Electrocardiograph Report ---
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
[2018-02-05] MEDS ORDERED: Aminoglycoside Consult 1 EACH MC ONE (13:06)
--- NOTE | 2018-02-05 13:28 | Internal Med Progress Note ---
Hospitalist Progress Note - Encounter Date of Encounter: 02/05/18 Time of Encounter: 13:28 - Subjective Interval History: Seen and examined at bedside. Says he feels better today. Still has some shortness of breath that is worse with exertion but overall improved. Afebrile, no fevers or chills. Denied dysuria. - Exam Vitals: Temp Pulse Resp BP Pulse Ox 97.4 F L 65 20 140/81 94 02/05/18 11:14 02/05/18 11:14 02/05/18 11:14 02/05/18 11:14 02/05/18 11:14 Exam: General appearance: Present: A&O X 3, pleasant, no acute distress - Head Head exam: Present: atraumatic, normocephalic - Eye Eye exam: Present: PERRL, conjuntiva pink, sclera anicteric Pupils: Present: PERRL - Neck Neck exam general surgery: Present: supple, trachea midline. Absent: lymphadenopathy - Respiratory Respiratory exam: Present: chest wall tenderness, CTAB. Absent: accessory muscl e use, rales, rhonchi, wheezes - Cardiovascular Cardiovascular exam: Present: RRR, +S1, +S2. Absent: diastolic murmur, gallop, rubs, systolic murmur - GI/Abdominal GI/Abdominal exam: Present: normal bowel sounds, soft, no peritoneal signs. Absent: distended, tenderness - Extremities Exam Extremities exam: Present: warm, radial pulses palpable and symmetrical. Absent: calf tenderness, cyanotic, pedal edema - Neurological Exam Neurological exam: Present: CN II-XII intact, oriented X3, no focal deficits. Absent: pronater drift, facial droop, speech deficit - Skin Skin exam: Present: dry, intact - Assessment and Plan (1) Community acquired pneumonia Current Visit: Yes Status: Acute Assessment and Plan: admission CXR with RLL opacity concerning for possible pneumonia. Clinically did not suspect pneumonia however WBC did peak at 26K and lactic acid 4.7. IV Vanco and Zosyn started 02/04/18. WBC now trending down and lactic acid normalized. Does not appear toxic or acute. Continue IV Vanco and Zosyn for now. Chest CT, urinary antigens and respiratory PCR pending. Consider de- escalation on 02/06 if continues to clinically improve. (2) Acute and chronic respiratory failure Current Visit: Yes Status: Acute Assessment and Plan: Pt is on 2L NC of oxygen at baseline and requiring 4L NC; multifactorial due to volume overload and COPD exacerbation. Continue treating underlying causes as noted below. Wean O2 to home dose as able. (3) Acute exacerbation of CHF (congestive heart failure) Current Visit: Yes Status: Acute Assessment and Plan: Acute on chronic systolic heart failure; presented with SOB. TTE with EF 45% and mild global left ventricular dysfunction. Weight down 3 kg with IV diuresis. Now appears euvolemic, stop IV Lasix and resume home Lasix (4) COPD exacerbation Current Visit: Yes Status: Acute Assessment and Plan: Has known history COPD with chronic respiratory failure. Mild COPD exacerbation suspected. Continue steroid burst and nebulizers (5) IDDM (insulin dependent diabetes mellitus) Current Visit: Yes Status: Chronic Assessment and Plan: Continue SSI, accuchecks achs, and diabetic diet. Expect hyperglycemia due to steroids. (6) CAD (coronary artery disease) Current Visit: Yes Status: Chronic Assessment and Plan: per hx. Asymptomatic, denied chest pain. Continue ASA and statin, Brilinta (7) HTN (hypertension) Current Visit: Yes Status: Chronic Assessment and Plan: Continue home doses of Coreg, Imdur, and Lisinopril DVT Prophylaxis: Heparin - Time Spent with Patient Total time spent is greater than 50% in coordination of care (as documented) at patient's floor/unit and/or counseling patient: Internal Medicine: Result - Labs CBC & Chem 7: 02/05/18 06:10 02/05/18 06:10 Labs: Short CBC 02/05/18 Range/Units 06:10 WBC 18.0 H (4.3-11.1) K/mcL Hgb 14.6 (12.9-16.9) g/dL Hct 42.6 (37.5-50.1) % Plt Count 153 (140-400) K/mcL BMP 02/05/18 06:10 Sodium 139 Potassium 4.2 Chloride 106 Carbon Dioxide 23 BUN 40 H Creatinine 1.29 Glucose 148 H Calcium 9.6 - ABG Interpretation ABG results: PT/INR, D-dimer PT 14.6 Seconds (9.4-12.1) H 02/02/18 04:29 Consult Discharge Plan - Plan Referrals: Lance Cronin MD [Primary Care Provider] - 02/08/18 10:15 am (follow up made with PCP.) ____ (1) Community acquired pneumonia Qualifiers: Laterality: right Lung location: lower lobe of lung Qualified Code(s): J18.1 - Lobar pneumonia, unspecified organism (2) Acute and chronic respiratory failure Qualifiers: Respiratory failure complication: hypoxia Qualified Code(s): J96.21 - Acute and chronic respiratory failure with hypoxia (3) Acute exacerbation of CHF (congestive heart failure) Qualifiers: Qualified Code(s): I50.9 - Heart failure, unspecified (6) CAD (coronary artery disease) Qualifiers: Coronary Disease-Associated Artery/Lesion type: bypass graft [place] vs. transplanted heart: [place] heart Associated angina: with stable angina Qualified Code(s): I25.708 - Atherosclerosis of coronary artery bypass graft(s), unspecified, with other forms of angina pectoris (7) HTN (hypertension) Qualifiers: Hypertension type: essential hypertension Qualified Code(s): I10 - Essential (primary) hypertension
[2018-02-05 17:03] LABS: Adenovirus Not Detected (Not Detect); Bordetella Pertussis Not Detected (Not Detect); Chlamydophila pneumoniae Not Detected (Not Detect); Coronavirus 229E Not Detected (Not Detect); Coronavirus HKU1 Not Detected (Not Detect); Coronavirus NL63 Not Detected (Not Detect); Coronavirus OC43 Not Detected (Not Detect); Human Metapneumovirus Not Detected (Not Detect); Human Rhinovirus/Enterovirus Not Detected (Not Detect); Influenza A Subtype 2009 H1 Not Detected (Not Detect); Influenza A Untypeable Not Detected (Not Detect); Influenza B Not Detected (Not Detect); Mycoplasma pneumoniae Not Detected (Not Detect); Parainfluenza Virus 1 Not Detected (Not Detect); Parainfluenza Virus 2 Not Detected (Not Detect); Parainfluenza Virus 3 Not Detected (Not Detect); Parainfluenza Virus 4 Not Detected (Not Detect); Respiratory Syncytial Virus Not Detected (Not Detect)
[2018-02-05] MEDS ORDERED: Mag Hydrox/Al Hydrox/Simeth 30 ML UDC PO ONE (21:47)
[2018-02-06] MEDS: Piperacillin/Tazobactam 3.375 GM in 0.9 % Sodium Chloride Mini Bag 100 ML IVPB SCH ×2 (00:47→08:46)
[2018-02-06 04:46] LABS: Hematocrit 47.2 % (37.5-50.1); Hemoglobin 15.6 g/dL (12.9-16.9); Mean Corpuscular HGB Conc 33.1 g/dL (31.6-35.5); Mean Corpuscular Hemoglobin 29.3 pg (28.0-33.3); Mean Corpuscular Volume 88.6 fL (83.0-100.0); Mean Platelet Volume 10.8 fL (9.4-12.4); Platelet Count 158 K/mcL (140-400); Red Blood Count 5.33 M/mcL (4.19-5.50); Red Cell Distribution Width 13.5 % (11.5-14.5)
[2018-02-06 05:05] LABS: BUN/Creatinine Ratio 27 (6-26); Blood Urea Nitrogen 34 mg/dL (8-23); Calcium 9.9 mg/dL (8.6-10.3); Carbon Dioxide 27 mEq/L (23-29); Chloride 103 mEq/L (98-107); Glucose 135 mg/dL (70-105); Osmolality,Calculated 296 (280-300); Potassium 4.2 mEq/L (3.5-5.1); Sodium 138 mEq/L (136-145); eGFR For Non-African Americans 55 (> 60)
[2018-02-06] MEDS: *HR* Heparin 5,000 UNIT/ML VIAL SQ SCH (05:11)
[2018-02-06] MEDS: predniSONE 20 MG TABLET PO SCH (08:45)
[2018-02-06] MEDS: Aspirin Enteric Coated 81 MG Tablet PO SCH (08:45)
[2018-02-06] MEDS: Furosemide 20 MG TABLET PO SCH (08:45)
[2018-02-06] MEDS: Isosorbide MONOnitrate (24 HR) 60 MG TAB.ER.24H PO SCH (08:45)
[2018-02-06] MEDS: Insulin LISPRO 300 UNITS/3 ML VIAL SQ SCH (08:46)
[2018-02-06] MEDS: *HR* Ticagrelor 90 MG TABLET PO SCH (08:46)
--- NOTE | 2018-02-06 11:58 | Discharge Summary ---
- NOTES TO OUTPATIENT PROVIDER Notes to Outpatient Provider: PCP in 5 to 7 days Orders not resulted at time of discharge: Pending orders 02/04/18 09:19 Culture,Blood [BC] Stat 02/05/18 14:59 Legionella Antigen [RM] Stat S. Pneumoniae Antigen [RM] Stat 02/06/18 10:45 IR thoracentesis RIGHT [IR] Routine Albumin,Body Fluid Routine Cell Count w Diff, Pleural Fld [BF] Routine Glucose,Pleural Fluid [BF] Routine LDH,Pleural Fluid [BF] Routine Total Protein,Pleural Fluid [BF] Routine pH,Pleural Fluid [BF] Routine 02/07/18 04:00 BMP [Basic Metabolic Panel] AM 0400 Complete Blood Count w/o Diff [HEME] [place] 04002/08/18 04:00 BMP [Basic Metabolic Panel] AM 0400 Complete Blood Count w/o Diff [HEME] AM 0400 02/09/18 04:00 BMP [Basic Metabolic Panel] AM 0400 Complete Blood Count w/o Diff [HEME] AM 0400 Date of Encounter: 02/06/18 Time of Encounter: 11:55 - Discharge Diagnosis (1) Acute and chronic respiratory failure Priority: Primary Status: Acute Assessment and Plan: Pt is on 2L NC of oxygen at baseline and requiring 4L NC on admission. Multi-factorial due to volume overload and COPD exacerbation. Given treatment for underlying causes as noted below. Weaned off O2 and tolerating room air. pulse ox on room air was 94% at rest and maintained ambulatory pulse ox of 94- 95% with activity. Pt is on 2L NC at home at night time only and may resume that. Qualifiers: Respiratory failure complication: hypoxia Qualified Code(s): J96.21 - Acute and chronic respiratory failure with hypoxia (2) Acute exacerbation of CHF (congestive heart failure) Priority: Primary Status: Acute Assessment and Plan: Acute on chronic systolic heart failure; presented with SOB. TTE with EF 45% and mild global left ventricular dysfunction. Weight down 3 kg with IV diuresis. Now appears euvolemic, stopped IV Lasix and resumed home Lasix Qualifiers: Qualified Code(s): I50.9 - Heart failure, unspecified (3) IDDM (insulin dependent diabetes mellitus) Priority: Secondary Status: Chronic Assessment and Plan: Continue SSI, accuchecks achs, and diabetic diet. Okay to resume home medication as prescribed by PCP. (4) CAD (coronary artery disease) Priority: Secondary Status: Chronic Assessment and Plan: Per hx. Asymptomatic, denied chest pain. Continue ASA and statin, Brilinta Qualifiers: Coronary Disease-Associated Artery/Lesion type: bypass graft [place] vs. transplanted heart: [place] heart Associated angina: with stable angina Qualified Code(s): I25.708 - Atherosclerosis of coronary artery bypass graft(s), unspecified, with other forms of angina pectoris (5) HTN (hypertension) Priority: Secondary Status: Chronic Assessment and Plan: Continue home doses of Coreg, Imdur, and Lisinopril Qualifiers: Hypertension type: essential hypertension Qualified Code(s): I10 - Essential (primary) hypertension (6) Community acquired pneumonia Priority: Secondary Status: Acute Assessment and Plan: Admission CXR with RLL opacity concerning for possible pneumonia. Clinically did not suspect pneumonia however which was 7.9 02/03/2018, did peak at 26K 02/04/2018 and lactic acid 4.7. IV Vancomycin and Zosyn started 02/04/18. WBC now trending down and lactic acid normalized. Does not appear toxic or acute. Discontinue IV Vancomycin and Zosyn and DC on Augmentin for approximately 5 more days. Also possibly multifactorial as elevation in WBC likely also due to steroid. Chest CT showed new mod to large pleural effusion. Was considering possible thoracentesis but pt is asymptomatic. Per nurseMine, IR physician, states effusion is not large enough for procedure and pt needed to be off Brilinta for 5 days prior o procedure. Urinary antigens ordered and respiratory PCR negative. Will continue to taper steroid. Recommend out pt follow up WBC at discharge Chest CT CT/CT chest wo con IMPRESSION: 1. New moderate to large right pleural effusion and smaller left pleural effusion. 2. Atelectatic changes are seen at right lung base. No obvious pneumonia. Qualifiers: Laterality: right Lung location: lower lobe of lung Qualified Code(s): J18.1 - Lobar pneumonia, unspecified organism (7) COPD exacerbation Priority: Secondary Status: Acute Assessment and Plan: Has known history COPD with chronic respiratory failure. Mild COPD exacerbation suspected which has resolved. 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 Describes his dyspnea as progressively worsening. Worse when lying supine, improved when sitting upright. Patient normally uses 3-4 L of oxygen via nasal cannula at night, but reports that his oxygen requirement has increased, and he now has to use his oxygen throughout the day. Admitted to having a dry cough. Upon arrival to the emergency department, patients vital signs were as follows: Temp 98, HR 78, RR 21, BP 142/112, O2 sat 95. Laboratory analysis was unremarkable. CXR demonstrated findings suggestive of cardiomegaly and pulmonary venous congestion, opacity in RLL, suggestive of pleural effusion and partial atelectasis. Possible PNA. EKG showed no acute ischemic changes. Patient received a one-time dose of Augmentin and Zithromax. Patient was seen and examined at bedside; he reports feeling better now than he did when he first arrived. He admits to dyspnea on exertion, orthopnea, paroxysmal nocturnal dyspnea, and cough, but denies fever, chills, nausea, vomiting, chest pain, diaphoresis, or palpitations. No further complaints. Discharge discussed with: patient - Time Spent with Patient Total time spent providing and/or coordinating discharge services: Greater than 30 minutes - Discharge Medications Home Medications: Aspirin [Lo-Dose Aspirin EC] 81 mg PO DAILY 08/10/17 [History] Atorvastatin [Lipitor] 40 mg PO HS 08/10/17 [History] Carvedilol 3.125 mg PO BID 08/10/17 [History] Cinnamon Bark [Cinnamon] 500 mg PO DAILY 08/10/17 [History] Isosorbide MONOnitrate [Isosorbide Mononitrate ER] 120 mg PO DAILY 08/10/17 [History] Lisinopril 2.5 mg PO DAILY 08/10/17 [History] Nitroglycerin [Nitrostat] 0.4 mg SL Q5M PRN 08/10/17 [History] [place]-3/Dha/Epa/Fish Oil [Fish Oil 1,000 mg Softgel] 1 cap PO DAILY 08/10/17 [History] Potassium Chloride [K-Tab ER] 10 meq PO DAILY 08/10/17 [History] Ticagrelor [Brilinta] 90 mg PO BID 08/10/17 [History] Acetaminophen [Tylenol] 650 mg PO Q6HR PRN tablet 09/01/17 [Rx] Furosemide [Lasix] 20 mg PO BID #60 tablet 11/10/17 [Rx] Amoxicillin/Clavulanate [Augmentin] 875 mg PO BIDWM 5 Days #10 tablet 02/06/18 [Rx] Allergies/Adverse Reactions: Allergy/AdvReac Type Severity Reaction Status Date / Time Oxycodone [From Percocet] Allergy Hives Verified 09/01/17 16:21 tramadol Allergy Hives Verified 09/01/17 16:21 Date of admission: 02/03/18 14:56 Primary care physician: Lance Cronin MD Consults: 02/01/18 19:55 Consult to Cardiac Rehabilitation-Phase1 [CONS] Routine Comment: Reason for Consult: heart failure Call Completed: Yes Consult to Nurse Navigator [CONS] Routine Comment: 02/06/18 10:46 Consult to Interventional Radiology [CONS] Routine Consulting Provider: Radiology Interventional Cols Reason for Consult: moderate o large pleural effusion Call Completed: No Discharging clinician: Traci Mcnally Anticipated date of discharge: 02/06/18 - Constitutional Vitals: Temp Pulse Resp BP Pulse Ox 97.5 F L 63 18 153/101 94 02/06/18 07:20 02/06/18 07:20 02/06/18 07:20 02/06/18 07:20 02/06/18 11:40 Exam: Exam: General: A&O X3, conversant, no acute distress Head: atraumatic, normocephalic Eye: PERRL, EOMI, conjuntiva pink, sclera anicteric Neck: Supple, trachea midline; No lymphadenopathy Respiratory: Diminished breath sounds, prolonged expiratory phase, bibasilar crackles Cardiovascular: RRR, +S1, +S2; no murmurs, rubs, gallops Abdomen: Soft, nontender, distended Extremities: trace pedal edema b/l Psychiatric: Normal affect, normal mood Skin: Dry, intact - Patient Status Disposition: Home, Self-Care Condition: Fair Overall status at discharge: patient is back to baseline - Discharge Instructions Instructions: Heart Failure (DC) Follow Up With: Lance Cronin MD [Primary Care Provider] - 02/08/18 10:15 am (follow up made with PCP.) Forms: ED Satisfaction Letter - Diet and Activity Activity: increase activity as tolerated Diet: low fat, low cholesterol, low salt diet
[2018-02-06 12:17] VITALS: BP 160/86
== END 2018-02-06 13:07 | disposition home or self-care (01) | DRG 291 ==
LOC: 2ANU 14:41 → EMEROOARM 14:41 → 2ANU 02-02 00:35
PROVIDERS: ADMIT Internal Medicine; ATTEND Internal Medicine

== ENCOUNTER 2018-04-22 17:49 | Observation (INO) ==
--- NOTE | 2018-04-22 18:13 | Emergency Department Note ---
Disposition Clinical Impression: CHF exacerbation Qualifiers: Heart failure type: unspecified Qualified Code(s): I50.9 - Heart failure, unspecified Disposition: Admitted As Inpatient Condition: Good Referrals: NONE,PCP [Primary Care Provider] - Forms: ED Satisfaction Letter Time of Disposition: 18:53 SOB HPI - General Chief Complaint: ED Shortness of Breath/Dyspnea Stated Complaint: MAYELIN Time Seen by Provider: 04/22/18 17:55 Source: patient, EMS Mode of arrival: EMS Nursing Notes Reviewed: Yes Vital Signs Reviewed: Yes - History of Present Illness 77-year-old male history of congestive heart failure he wears 4 L nasal cannula at home as needed presenting to the emergency department via EMS for difficulty in breathing. The past several days progressed worsening shortness of breath until this morning. Exertion makes it worse. He has been wearing oxygen this morning to help get air. Denies smoking. He reports some chest pain across the right side of his chest without radiation. He has noticed some leg swelling. He takes one tablet of his for also might daily. He admits to taking aspirin as well as Coumadin. No history of cardiac ischemic disease. Denies any recent fevers. He reports a cough that is nonproductive. Pt Subjective Complaint: shortness of breath, cough - Related Data Home Medications Medication Instructions Recorded Confirmed Aspirin [Lo-Dose Aspirin EC] 81 mg PO DAILY 08/10/17 02/01/18 Atorvastatin [Lipitor] 40 mg PO HS 08/10/17 02/01/18 Carvedilol 3.125 mg PO BID 08/10/17 02/01/18 Cinnamon Bark [Cinnamon] 500 mg PO DAILY 08/10/17 02/01/18 Isosorbide MONOnitrate [Isosorbide 120 mg PO DAILY 08/10/17 02/01/18 Mononitrate ER] Lisinopril 2.5 mg PO DAILY 08/10/17 02/01/18 Nitroglycerin [Nitrostat] 0.4 mg SL Q5M PRN 08/10/17 02/01/18 [place]-3/Dha/Epa/Fish Oil [Fish Oil 1 cap PO DAILY 08/10/17 02/01/18 1,000 mg Softgel] Potassium Chloride [K-Tab ER] 10 meq PO DAILY 08/10/17 02/01/18 Ticagrelor [Brilinta] 90 mg PO BID 08/10/17 02/01/18 Previous Rx's Medication Instructions Recorded Acetaminophen [Tylenol] 650 mg PO Q6HR PRN tablet 09/01/17 Furosemide [Lasix] 20 mg PO BID #60 tablet 11/10/17 Allergies Allergy/AdvReac Type Severity Reaction Status Date / Time oxycodone [From Percocet] Allergy Hives Verified 09/01/17 16:21 tramadol Allergy Hives Verified 09/01/17 16:21 All systems ED: reviewed and negative except as stated. Review of Systems: As Per HPI Constitutional: Denies: fever, chills ENT ED: Reports: congestion Cardiovascular: Reports: chest pain Respiratory: Reports: cough, dyspnea Gastrointestinal: Denies: abdominal pain, nausea, vomiting Musculoskeletal: Denies: back pain Neurological: Denies: headache, confusion Past Medical History - Past Medical History Attestation: Yes The following information was validated with the patient. Source: patient Medical history: Reports: asthma, atrial fibrillation, CHF, coronary artery disease, CVA, diabetes, hypertension, myocardial infarction, thyroid disease Surgical history: Reports: angioplasty/stent, cholecystectomy, coronary bypass (CABG), pacemaker/AICD Psychiatric history: Reports: no psych history - Social History Smoking Status: Former smoker Smokeless Tobacco Status: No Alcohol use: Reports: none Drug use: Reports: none Physical Exam - General Limitations: no limitations General appearance: alert, obese - Head Head exam: atraumatic, normocephalic, normal inspection - Eye Eye exam: Present: normal appearance, PERRL, EOMI - ENT ENT exam: normal exam, normal oropharynx, mucous membranes moist - Neck Neck exam: Present: normal inspection, full ROM, trachea midline - Chest Chest inspection: Present: normal inspection, symmetric chest wall rise - Respiratory Respiratory exam: Present: respiratory distress, wheezes, accessory muscle use, prolonged expiratory phase, other (Pursed lips) - Expanded Respiratory Exam Location: rales: Lower - Cardiovascular Cardiovascular exam: Present: regular rate, normal rhythm, normal heart sounds. Absent: systolic murmur, diastolic murmur - Abdominal Exam Abdominal exam: Present: soft, Non-Tender, normal bowel sounds. Absent: tenderness, distention, guarding, rebound, rigidity - Extremities Exam Extremities exam: Present: normal inspection, full ROM, normal capillary refill, pedal edema (+2 symmetrical). Absent: tenderness - Neurological Exam Neurological exam: Present: alert, oriented X3 - Psychiatric Psychiatric exam: Present: normal affect, normal mood - Skin Skin exam: Present: warm, dry, intact, normal color. Absent: rash, cyanosis, diaphoresis Course Course Narrative: Patient presents with difficulty in breathing worse this morning. Reports a nonproductive cough. Similar to prior episodes of his heart failure. He has noticed some leg swelling. He is afebrile. In the room he has pursed lips breathing. Some wheezing on expiration with crackles in the bases. Concern for acute exacerbation of his heart failure. Will place him on BiPAP to assist in his breathing. Patient will likely require admission. - Reevaluation(s) Reevaluation #1: Troponin 0.03. No leukocytosis. Chest x-rays consistent with congestive heart failure. Will give him a dose of IV Lasix 20 mg as he takes 20 mg of BID. Patient is in agreement with admission. Impression is chest pain and congestive heart failure exacerbation. Time: 18:40 Reevaluation #2: BNP over 1000. This is above his baseline. He admits to taking Lasix prior to arrival here and has been urinating with good urine output. He is requesting a Wang catheter in place as he gets more winded every time he gets up to urinate. Will place a Wang catheter. Will hold off on Lasix IV here. Impression is congestive heart failure exacerbation. Patient will be admitted. He is in agreement with this plan. Time: 18:59 - Consultations Consultation #1: Spoke with on-call hospitalist chi Jackson to admit for CHF exacerbation. No further orders at this time Time: 19:19 Vital Signs Temperature 98.6 F 04/22/18 17:54 Pulse Rate 76 04/22/18 17:54 Respiratory Rate 18 04/22/18 17:54 Blood Pressure 153/99 04/22/18 17:54 O2 Sat by Pulse Oximetry 97 04/22/18 17:54 Temperature 98.6 F 04/22/18 17:54 Pulse Rate 85 04/22/18 18:37 Respiratory Rate 16 04/22/18 18:37 Blood Pressure 146/79 04/22/18 18:37 O2 Sat by Pulse Oximetry 94 04/22/18 18:37 Oxygen Delivery Oxygen Delivery Room Air Shortness of Breath/Dyspnea - MDM Narrative Medical decision making narrative: Patient was discussed with my attending physician who agrees with ED management and final disposition. They independently evaluated the patient. Please refer to their attestation to this encounter for additional information. This note was generated by [employer] voice recognition software and as a result grammatical or spelling errors may occur using this program. - Medical Records Medical records reviewed: Yes I reviewed the patient's medical records. - Lab Data Lab results reviewed: Yes I reviewed the patient's lab results. Result diagrams: 04/22/18 17:57 04/22/18 17:57 Lab Results 04/22/18 04/22/18 04/22/18 Range/Units 17:57 17:57 17:57 WBC 10.7 (4.3-11.1) K/mcL RBC 4.93 (4.19-5.50) M/mcL Hgb 14.2 (12.9-16.9) g/dL Hct 43.0 (37.5-50.1) % MCV 87.2 (83.0-100.0) fL MCH 28.8 (28.0-33.3) pg MCHC 33.0 (31.6-35.5) g/dL RDW 13.2 (11.5-14.5) % Plt Count 196 (140-400) K/mcL MPV 10.3 (9.4-12.4) fL Immature Gran % 0.3 (0-4) % Seg Neutrophils % 75.8 % Lymphocytes % 7.7 % Monocytes % 8.7 % Eosinophils % 6.8 % Basophils % 0.7 % Neutrophils # 8.1 (1.6-8.9) K/mcL Lymphocytes # 0.8 (0.6-4.6) K/mcL Monocytes # 0.9 (0.0-1.3) K/mcL Eosinophils # 0.7 H (0.0-0.6) K/mcL Basophils # 0.1 (0.0-0.2) K/mcL Sodium 140 (136-145) mEq/L Potassium 3.6 (3.5-5.1) mEq/L Chloride 102 (98-107) mEq/L Carbon Dioxide 28 (23-29) mEq/L BUN 22 (8-23) mg/dL Creatinine 1.01 (0.70-1.30) mg/dL Est GFR ( Amer) > 60 (> 60) Est GFR (Non-Af Amer) > 60 (> 60) BUN/Creatinine Ratio 22 (6-26) Glucose 196 H (70-105) mg/dL Calculated Osmolality 299 (280-300) Calcium 10.0 (8.6-10.3) mg/dL Troponin I 0.03 (< 0.04) ng/mL B-Natriuretic Peptide 1035 H (Less than 100) pg/mL - Radiology Data Radiology results reviewed: Yes I reviewed the patient's radiology results. Chest X-Ray 04/22/18 18:02 IMPRESSION: Findings suggest congestive heart failure D/ / Mane Gay MD / Mane Gay MD Interpreting Provider: Mane Gay MD - EKG Data EKG attestation: Yes I reviewed and interpreted this EKG. EKG results narrative: EKG performed at 1756 dual paced rhythm 78 beats per minute, no Sgarbossa criteria. Compared to prior EKG performed on 02/01/2018 was similar consistent findings. No acute ischemic changes.
[2018-04-22 18:15] LABS: Basophils # 0.1 K/mcL (0.0-0.2); Basophils % 0.7 %; Eosinophils # 0.7 K/mcL (0.0-0.6); Eosinophils % 6.8 %; Hemoglobin 14.2 g/dL (12.9-16.9); Immature Granulocytes % 0.3 % (0-4); Lymphocytes # 0.8 K/mcL (0.6-4.6); Lymphocytes % 7.7 %; Mean Corpuscular Hemoglobin 28.8 pg (28.0-33.3); Mean Corpuscular Volume 87.2 fL (83.0-100.0); Mean Platelet Volume 10.3 fL (9.4-12.4); Monocytes # 0.9 K/mcL (0.0-1.3); Monocytes % 8.7 %; Neutrophils # 8.1 K/mcL (1.6-8.9); Platelet Count 196 K/mcL (140-400); Red Blood Count 4.93 M/mcL (4.19-5.50); Red Cell Distribution Width 13.2 % (11.5-14.5); Segmented Neutrophils % 75.8 %
--- NOTE | 2018-04-22 18:32 | Emergency Department Note ---
Disposition Clinical Impression: CHF exacerbation Qualifiers: Heart failure type: unspecified Qualified Code(s): I50.9 - Heart failure, unspecified Disposition: Admitted As Inpatient Condition: Good Referrals: NONE,PCP [Primary Care Provider] - Forms: ED Satisfaction Letter General Adult HPI - General Chief complaint: ED Shortness of Breath/Dyspnea Stated complaint: MAYELIN Time Seen by Provider: 04/22/18 17:55 Source: patient, EMS Mode of arrival: EMS Limitations: no limitations - History of Present Illness Pain Scale: 0 - Related Data Home Medications Medication Instructions Recorded Confirmed Aspirin [Lo-Dose Aspirin EC] 81 mg PO DAILY 08/10/17 02/01/18 Atorvastatin [Lipitor] 40 mg PO HS 08/10/17 02/01/18 Carvedilol 3.125 mg PO BID 08/10/17 02/01/18 Cinnamon Bark [Cinnamon] 500 mg PO DAILY 08/10/17 02/01/18 Isosorbide MONOnitrate [Isosorbide 120 mg PO DAILY 08/10/17 02/01/18 Mononitrate ER] Lisinopril 2.5 mg PO DAILY 08/10/17 02/01/18 Nitroglycerin [Nitrostat] 0.4 mg SL Q5M PRN 08/10/17 02/01/18 [place]-3/Dha/Epa/Fish Oil [Fish Oil 1 cap PO DAILY 08/10/17 02/01/18 1,000 mg Softgel] Potassium Chloride [K-Tab ER] 10 meq PO DAILY 08/10/17 02/01/18 Ticagrelor [Brilinta] 90 mg PO BID 08/10/17 02/01/18 Previous Rx's Medication Instructions Recorded Acetaminophen [Tylenol] 650 mg PO Q6HR PRN tablet 09/01/17 Furosemide [Lasix] 20 mg PO BID #60 tablet 11/10/17 Allergies Allergy/AdvReac Type Severity Reaction Status Date / Time oxycodone [From Percocet] Allergy Hives Verified 09/01/17 16:21 tramadol Allergy Hives Verified 09/01/17 16:21 Constitutional: Denies: fever, chills ENT ED: Reports: congestion Cardiovascular: Reports: chest pain Respiratory: Reports: cough, dyspnea Gastrointestinal: Denies: abdominal pain, nausea, vomiting Musculoskeletal: Denies: back pain Neurological: Denies: headache, confusion Past Medical History - Past Medical History Medical history: Reports: asthma, atrial fibrillation, CHF, coronary artery disease, CVA, diabetes, hypertension, myocardial infarction, thyroid disease Surgical history: Reports: angioplasty/stent, cholecystectomy, coronary bypass (CABG), pacemaker/AICD Psychiatric history: Reports: no psych history - Social History Smoking Status: Former smoker Smokeless Tobacco Status: No Alcohol use: Reports: none Drug use: Reports: none Physical Exam - General Limitations: no limitations General appearance: alert, obese Course Course Narrative: signed out to dr. kale duran for admission for CHF excerbation Vital Signs Temperature 98.6 F 04/22/18 17:54 Pulse Rate 76 04/22/18 17:54 Respiratory Rate 18 04/22/18 17:54 Blood Pressure 153/99 04/22/18 17:54 O2 Sat by Pulse Oximetry 97 04/22/18 17:54 Temperature 98.6 F 04/22/18 17:54 Pulse Rate 85 04/22/18 18:37 Respiratory Rate 16 04/22/18 18:37 Blood Pressure 146/79 04/22/18 18:37 O2 Sat by Pulse Oximetry 94 04/22/18 18:37 Oxygen Delivery Oxygen Delivery Room Air Medical Decision Making - Lab Data Result diagrams: 04/22/18 17:57 04/22/18 17:57 Lab Results 04/22/18 04/22/18 04/22/18 Range/Units 17:57 17:57 17:57 WBC 10.7 (4.3-11.1) K/mcL RBC 4.93 (4.19-5.50) M/mcL Hgb 14.2 (12.9-16.9) g/dL Hct 43.0 (37.5-50.1) % MCV 87.2 (83.0-100.0) fL MCH 28.8 (28.0-33.3) pg MCHC 33.0 (31.6-35.5) g/dL RDW 13.2 (11.5-14.5) % Plt Count 196 (140-400) K/mcL MPV 10.3 (9.4-12.4) fL Immature Gran % 0.3 (0-4) % Seg Neutrophils % 75.8 % Lymphocytes % 7.7 % Monocytes % 8.7 % Eosinophils % 6.8 % Basophils % 0.7 % Neutrophils # 8.1 (1.6-8.9) K/mcL Lymphocytes # 0.8 (0.6-4.6) K/mcL Monocytes # 0.9 (0.0-1.3) K/mcL Eosinophils # 0.7 H (0.0-0.6) K/mcL Basophils # 0.1 (0.0-0.2) K/mcL Sodium 140 (136-145) mEq/L Potassium 3.6 (3.5-5.1) mEq/L Chloride 102 (98-107) mEq/L Carbon Dioxide 28 (23-29) mEq/L BUN 22 (8-23) mg/dL Creatinine 1.01 (0.70-1.30) mg/dL Est GFR ( Amer) > 60 (> 60) Est GFR (Non-Af Amer) > 60 (> 60) BUN/Creatinine Ratio 22 (6-26) Glucose 196 H (70-105) mg/dL Calculated Osmolality 299 (280-300) Calcium 10.0 (8.6-10.3) mg/dL Troponin I 0.03 (< 0.04) ng/mL B-Natriuretic Peptide 1035 H (Less than 100) pg/mL Attestation Statement - Attestation Attestation: I examined this patient and my medical decision-making was reviewed with the Resident Physician. I agree with the documented findings, disposition and treatment plan as described except to the extent set forth below. 77 year old male presenst to the ED with complaints of dyspnea and tachypnea and has a histroy of CHF and has been admited to medicine for mulitple times in the past for CHF excbeation. He states that this started this moring for him and that it has magali getting worse and he noticed that he had incrased abdominal swelling. CXR suggests that he has incarased effusions with pulmonary vascualr congestion. WE will likely admit to medicine. Carmenenlty he is 96% on 2LNC., bipap on standby
[2018-04-22 18:37] LABS: BUN/Creatinine Ratio 22 (6-26); Blood Urea Nitrogen 22 mg/dL (8-23); Carbon Dioxide 28 mEq/L (23-29); Chloride 102 mEq/L (98-107); Glucose 196 mg/dL (70-105); Osmolality,Calculated 299 (280-300); Potassium 3.6 mEq/L (3.5-5.1); Sodium 140 mEq/L (136-145); eGFR For Non-African Americans > 60 (> 60)
[2018-04-22 18:38] LABS: Troponin I 0.03 ng/mL (< 0.04)
[2018-04-22] MEDS ORDERED: Furosemide 20 MG/2 ML VIAL IVP ONE (18:39)
[2018-04-22] MEDS ORDERED: Nitroglycerin 0.4 MG TAB.SUBL SL PRN (20:16)
--- NOTE | 2018-04-22 20:57 | Internal Med History&Physical ---
Date of Encounter: 04/22/18 Time of Encounter: 20:55 Internal Medicine - H&P: HPI Chief complaint: SOB Admitted From: Home Plans for Post Hospital Care: Home History of present illness: Yue Pizarro is a 77-year-old male with atrial fibrillation not on anticoagulation due to hematuria and noncompliance, heart failure with reduced ejection fraction with AICD, coronary artery disease status post PCI & CABG, and cerebrovascular disease presents to the emergency room complaining of shortness of breath since this morning that progressively worsened as well as increased abdominal swelling and pedal edema. He says he had forgotten to take his diuretic therapy of recent. He has been increasingly uses his home oxygen to obtain relief. In the ER he was not hypoxic and was found to have normal vital signs. Lab work revealed a BNP of 1035 and chest x-ray is reviewed by me reveals bilateral pleural effusions and significant pulmonary vascular congestion. He was given 1 dose of 20 mg IVP furosemide and has had adequate diuresis. On my assessment he reports feeling better and denies any chest pain. Past Med Surg Social Fam HX - Past Medical History Medical history: asthma, atrial fibrillation, CHF, coronary artery disease, CVA, diabetes, hypertension, myocardial infarction, thyroid disease Additional medical history: very hard of hearing Psychiatric history: no psych history - Past Surgical History Surgical History: angioplasty/stent, cholecystectomy, coronary bypass (CABG), pacemaker/AICD Additional surgical history: stent placement - Social History Smoking Status: Former smoker Smokeless Tobacco Status: No Alcohol use: none Drug use: none - Family History Grandfather Family Member Ethnicity: Non- Living Status: Hx Family Cardiac Disorders: Yes Mother Family Member Ethnicity: Non- Living Status: Hx Family Neurologic Disorders: Yes (CVA) Father Adopted: No Family Member Ethnicity: Non- Living Status: Hx Family Cardiac Disorders: No Hx Family Respiratory Disorders: No Hx Family Cancer: Yes (Unknown what type) Hx Family GI Disorders: No Hx Family Endocrine Disorder: No Hx Family Neuromuscular Disorders: No Hx Family Neurologic Disorders: No Hx Family HEENT Disorders: No Hx Family Autoimmune Disorders: No Internal Medicine - H&P: Meds Aspirin [Lo-Dose Aspirin EC] 81 mg PO DAILY 08/10/17 [History] Atorvastatin [Lipitor] 40 mg PO HS 08/10/17 [History] Carvedilol 3.125 mg PO BID 08/10/17 [History] Cinnamon Bark [Cinnamon] 500 mg PO DAILY 08/10/17 [History] Isosorbide MONOnitrate [Isosorbide Mononitrate ER] 120 mg PO DAILY 08/10/17 [History] Lisinopril 2.5 mg PO DAILY 08/10/17 [History] Nitroglycerin [Nitrostat] 0.4 mg SL Q5M PRN 08/10/17 [History] [place]-3/Dha/Epa/Fish Oil [Fish Oil 1,000 mg Softgel] 1 cap PO DAILY 08/10/17 [History] Potassium Chloride [K-Tab ER] 10 meq PO DAILY 08/10/17 [History] Ticagrelor [Brilinta] 90 mg PO BID 08/10/17 [History] Acetaminophen [Tylenol] 650 mg PO Q6HR PRN tablet 09/01/17 [Rx] Furosemide [Lasix] 20 mg PO BID #60 tablet 11/10/17 [Rx] Allergy/AdvReac Type Severity Reaction Status Date / Time oxycodone [From Percocet] Allergy Hives Verified 09/01/17 16:21 tramadol Allergy Hives Verified 09/01/17 16:21 All Systems PM: A 10-system review of systems was performed and is negative for pertinent findings except as documented above in the HPI. - Constitutional Vitals: Temp Pulse Resp BP Pulse Ox 98.6 F 85 16 146/79 94 04/22/18 17:54 04/22/18 18:37 04/22/18 18:37 04/22/18 18:37 04/22/18 18:37 Exam: Vitals: Reviewed General: Well-appearing, NAD Skin: Warm and supple. HEENT: Moist mucous membranes. No conjunctivae pallor. Neck: No lymphadenopathy. (+) JVD. Chest: Diminished thoracic expansion. Reduced breath sounds bilaterally. Heart: Normal S1 & S2; rhythmic. Abdomen: Distended, soft and non-tender to palpation. No peritoneal reaction. Extremities: No clubbing, cyanosis. 1+ edema. No calf tenderness. Normal distal pulses. Neurological: Awake, alert and oriented to person, place and time. No focal deficits. Psych: Affect appropriate. Internal Med - H&P Results - Labs CBC & Chem 7: 04/22/18 17:57 04/22/18 17:57 Labs: Short CBC 04/22/18 Range/Units 17:57 WBC 10.7 (4.3-11.1) K/mcL Hgb 14.2 (12.9-16.9) g/dL Hct 43.0 (37.5-50.1) % Plt Count 196 (140-400) K/mcL Neutrophils # 8.1 (1.6-8.9) K/mcL BMP 04/22/18 17:57 Sodium 140 Potassium 3.6 Chloride 102 Carbon Dioxide 28 BUN 22 Creatinine 1.01 Glucose 196 H Calcium 10.0 Cardiac Enzymes 04/22/18 Range/Units 17:57 Troponin I 0.03 (< 0.04) ng/mL - Impressions ITS Impressions Chest X-Ray 04/22/18 18:02 IMPRESSION: Findings suggest congestive heart failure D/ / Mane Gay MD / Mane Gay MD Interpreting Provider: Mane Gay MD - Assessment and plan (1) Acute on chronic systolic (congestive) heart failure Current Visit: Yes Status: Acute Assessment and plan: Likely secondary to non-adherence to therapy. -Will monitor on telemetry. -20mg furosemide IVP BID until euvolemic. -Continue BB/ACEI therapy. -Education and counseling. -Low salt diet. -Strict I's/O's. (2) HLD (hyperlipidemia) Current Visit: Yes Status: Acute Assessment and plan: Adequately controlled based on last check in August 2017. -Continue high intensity statin therapy. Qualifiers: Hyperlipidemia type: mixed hyperlipidemia Qualified Code(s): E78.2 - Mixed hyperlipidemia (3) HTN (hypertension) Current Visit: Yes Status: Acute Assessment and plan: Well controlled. -Continue lisinopril. Qualifiers: Hypertension type: essential hypertension Qualified Code(s): I10 - Essential (primary) hypertension (4) CAD (coronary artery disease) Current Visit: Yes Status: Chronic Assessment and plan: Stable. No signs of acute ischemia. -Continue dual antiplatelet therapy. Qualifiers: Coronary Disease-Associated Artery/Lesion type: bypass graft [place] vs. transplanted heart: [place] heart Associated angina: with stable angina Qualified Code(s): I25.708 - Atherosclerosis of coronary artery bypass graft(s), unspecified, with other forms of angina pectoris (5) DVT prophylaxis Current Visit: Yes Status: Acute Assessment and plan: SubQ heparin ordered. - Time Spent With Patient Total time spent is greater than 50% in coordination of care (as documented) at patient's floor/unit and/or counseling patient: Greater than 35 minutes
[2018-04-22] MEDS: *HR* Ticagrelor 90 MG TABLET PO SCH (21:28)
[2018-04-22] MEDS: Furosemide 20 MG/2 ML VIAL IVP SCH (21:28)
[2018-04-22] MEDS: *HR* Heparin 5,000 UNIT/ML VIAL SQ SCH (21:29)
[2018-04-22] MEDS ORDERED: D5% in Water 1,000 ML IVC PRN (23:43)
[2018-04-22] MEDS ORDERED: Dextrose Gel 15 GM/37.5 ML TUBE PO PRN ×2 (23:43)
[2018-04-22] MEDS ORDERED: *HR* Dextrose 50 % in Water (Syg) 50 ML SYRINGE IVP PRN (23:43)
[2018-04-23] MEDS: Insulin LISPRO 300 UNITS/3 ML VIAL SQ SCH ×5 (00:18→21:42)
[2018-04-23] MEDS: Acetaminophen 325 MG TABLET PO PRN ×2 (00:36→17:49)
[2018-04-23] MEDS ORDERED: Pantoprazole 40 MG VIAL IVP ONE (00:49)
[2018-04-23] MEDS: *HR* Heparin 5,000 UNIT/ML VIAL SQ SCH ×3 (05:37→21:41)
[2018-04-23 06:29] LABS: Bilirubin,Urine Moderate (Negative); Blood,Urine Large (Negative); Clarity,Urine Cloudy (Clear); Glucose,Urine (UA) Normal (Normal); Ketones,Urine Trace mg/dL (Negative); Leukocyte Esterase,Urine Moderate (Negative); Nitrite,Urine Positive (Negative); Protein,Urine 100 mg/dL (Neg-Trace); Specific Gravity,Urine 1.021 (1.010-1.025); Urobilinogen,Urine Normal (Normal)
[2018-04-23 06:30] LABS: Bacteria,Urine None Seen per hpf (None-Few); Hyaline Casts,Urine None Seen per lpf (None-Few); RBC,Urine TNTC per hpf (0-3); Squamous Epithelial Cell,Urine Many per lpf (None-Few)
[2018-04-23 06:33] LABS: Color,Urine Amber (Yellow)
[2018-04-23] MEDS: Furosemide 20 MG/2 ML VIAL IVP SCH ×2 (08:44→21:41)
[2018-04-23] MEDS: Aspirin Enteric Coated 81 MG Tablet PO SCH (08:45)
[2018-04-23] MEDS: Isosorbide MONOnitrate (24 HR) 60 MG TAB.ER.24H PO SCH (08:46)
[2018-04-23] MEDS: *HR* Ticagrelor 90 MG TABLET PO SCH ×2 (08:46→21:41)
[2018-04-23] MEDS: (Fish Oil 1,000 Mg Softgel) PO SCH (08:46)
--- NOTE | 2018-04-23 12:52 | Internal Med Progress Note ---
Hospitalist Progress Note - Encounter Date of Encounter: 04/23/18 Time of Encounter: 12:52 - Subjective Interval History: Patient was seen and examined at bedside currently complains of pubic pain, and generalized malaise. I did discuss treatment plan with the patient who verbalized understanding. - Exam Vitals: Temp Pulse Resp BP Pulse Ox 97.6 F 68 16 145/75 97 04/23/18 11:35 04/23/18 11:35 04/23/18 11:35 04/23/18 11:35 04/23/18 11:35 Exam: Vitals: Reviewed General: Well-appearing, NAD Skin: Warm and supple. HEENT: Moist mucous membranes. No conjunctivae pallor. Neck: No lymphadenopathy. (+) JVD. Chest: Diminished thoracic expansion. Reduced breath sounds bilaterally. Heart: Normal S1 & S2; rhythmic. Abdomen: Distended, soft and non-tender to palpation. No peritoneal reaction. Extremities: No clubbing, cyanosis. 1+ edema. No calf tenderness. Normal distal pulses. Neurological: Awake, alert and oriented to person, place and time. No focal deficits. Psych: Affect appropriate. - Assessment and Plan (1) CAD (coronary artery disease) Current Visit: Yes Status: Chronic Assessment and Plan: Stable. No signs of acute ischemia. -Continue dual antiplatelet therapy. 2/3 No chest pain voice at this time continue with dual antiplatelet therapy-statin and beta fuentes-TEE Continue with cardiac monitoring Nitroglycerin as needed for chest pain (2) DVT prophylaxis Current Visit: Yes Status: Acute Assessment and Plan: SubQ heparin ordered. (3) Acute on chronic systolic (congestive) heart failure Current Visit: Yes Status: Acute Assessment and Plan: Likely secondary to non-adherence to therapy. -Will monitor on telemetry. -20mg furosemide IVP BID until euvolemic. -Continue BB/ACEI therapy. -Education and counseling. -Low salt diet. -Strict I's/O's. 2/3 Patient missing something his Lasix because he did not like urinating so much-we will continue with IV Lasix 20 mg twice a day Continue with beta fuentes and TEE CHF education and counseling Low-salt diet Fluid restriction 1.5 L Monitor intake and output daily weights (4) HLD (hyperlipidemia) Current Visit: Yes Status: Acute Assessment and Plan: Adequately controlled based on last check in August 2017. -Continue high intensity statin therapy. 2/3 Continue with statin (5) HTN (hypertension) Current Visit: Yes Status: Acute Assessment and Plan: Well controlled. -Continue lisinopril. 2/3 Continue with lisinopril - Time Spent with Patient Total time spent is greater than 50% in coordination of care (as documented) at patient's floor/unit and/or counseling patient: Internal Medicine: Result - Labs CBC & Chem 7: 04/22/18 17:57 04/22/18 17:57 Labs: Short CBC 04/22/18 Range/Units 17:57 WBC 10.7 (4.3-11.1) K/mcL Hgb 14.2 (12.9-16.9) g/dL Hct 43.0 (37.5-50.1) % Plt Count 196 (140-400) K/mcL Neutrophils # 8.1 (1.6-8.9) K/mcL BMP 04/22/18 17:57 Sodium 140 Potassium 3.6 Chloride 102 Carbon Dioxide 28 BUN 22 Creatinine 1.01 Glucose 196 H Calcium 10.0 Cardiac Enzymes 04/22/18 Range/Units 17:57 Troponin I 0.03 (< 0.04) ng/mL Urine 04/23/18 Range/Units 06:20 Urine Color [place] A (Yellow) Urine Clarity Cloudy A (Clear) Urine pH 6.0 (5.0-8.0) pH Units Ur Specific [place] 1.021 (1.010-1.025) Urine Protein 100 H (Neg-Trace) mg/dL Urine Glucose (UA) Normal (Normal) mg/dL - Impressions Impressions Chest X-Ray 04/22/18 18:02 IMPRESSION: Findings suggest congestive heart failure D/ / Mane Gay MD / Mane Gay MD Interpreting Provider: Mane Gay MD Consult Discharge Plan - Plan Referrals: NONE,PCP [Primary Care Provider] - (1) CAD (coronary artery disease) Qualifiers: Coronary Disease-Associated Artery/Lesion type: bypass graft [place] vs. transplanted heart: [place] heart Associated angina: with stable angina Qualified Code(s): I25.708 - Atherosclerosis of coronary artery bypass graft(s), unspecified, with other forms of angina pectoris (4) HLD (hyperlipidemia) Qualifiers: Hyperlipidemia type: mixed hyperlipidemia Qualified Code(s): E78.2 - Mixed hyperlipidemia (5) HTN (hypertension) Qualifiers: Hypertension type: essential hypertension Qualified Code(s): I10 - Essential (primary) hypertension
[2018-04-23] MEDS: cefTRIAXone 1,000 MG in Water for inj. (sterile) 20 ML 10 ML IVP SCH (13:57)
[2018-04-23] MEDS: Ondansetron ODT 4 MG TAB.RAPDIS SL PRN (15:33)
[2018-04-23 18:45] LABS: Estimated Average Glucose 160 mg/dl; Hemoglobin A1C 7.2 %
[2018-04-24] MEDS: *HR* Heparin 5,000 UNIT/ML VIAL SQ SCH ×2 (06:09→13:03)
[2018-04-24 08:13] LABS: Basophils # 0.1 K/mcL (0.0-0.2); Basophils % 0.9 %; Eosinophils # 0.9 K/mcL (0.0-0.6); Eosinophils % 10.9 %; Hematocrit 43.6 % (37.5-50.1); Hemoglobin 14.5 g/dL (12.9-16.9); Immature Granulocytes % 0.3 % (0-4); Lymphocytes # 1.1 K/mcL (0.6-4.6); Lymphocytes % 12.2 %; Mean Corpuscular HGB Conc 33.3 g/dL (31.6-35.5); Mean Corpuscular Hemoglobin 29.2 pg (28.0-33.3); Mean Corpuscular Volume 87.7 fL (83.0-100.0); Mean Platelet Volume 10.2 fL (9.4-12.4); Monocytes # 0.8 K/mcL (0.0-1.3); Monocytes % 9.1 %; Neutrophils # 5.7 K/mcL (1.6-8.9); Platelet Count 170 K/mcL (140-400); Red Blood Count 4.97 M/mcL (4.19-5.50); Red Cell Distribution Width 13.2 % (11.5-14.5); Segmented Neutrophils % 66.6 %
[2018-04-24 08:33] LABS: BUN/Creatinine Ratio 19 (6-26); Blood Urea Nitrogen 22 mg/dL (8-23); Calcium 9.6 mg/dL (8.6-10.3); Carbon Dioxide 29 mEq/L (23-29); Chloride 104 mEq/L (98-107); Glucose 124 mg/dL (70-105); Osmolality,Calculated 299 (280-300); Sodium 142 mEq/L (136-145); eGFR For Non-African Americans > 60 (> 60)
[2018-04-24] MEDS: Insulin LISPRO 300 UNITS/3 ML VIAL SQ SCH ×2 (08:44→13:03)
[2018-04-24] MEDS: *HR* Ticagrelor 90 MG TABLET PO SCH (09:11)
[2018-04-24] MEDS: Isosorbide MONOnitrate (24 HR) 60 MG TAB.ER.24H PO SCH (09:11)
[2018-04-24] MEDS: Aspirin Enteric Coated 81 MG Tablet PO SCH (09:11)
[2018-04-24] MEDS: (Fish Oil 1,000 Mg Softgel) PO SCH (09:11)
[2018-04-24] MEDS: cefTRIAXone 1,000 MG in Water for inj. (sterile) 20 ML 10 ML IVP SCH (09:12)
[2018-04-24] MEDS: Furosemide 20 MG/2 ML VIAL IVP SCH (09:12)
[2018-04-24 11:57] VITALS: BP 134/72
--- NOTE | 2018-04-24 14:48 | Discharge Summary ---
- NOTES TO OUTPATIENT PROVIDER Notes to Outpatient Provider: CHF summation due to patient stop taking Lasix because he did want Date of Encounter: 04/24/18 Time of Encounter: 14:48 - Discharge Diagnosis (1) CAD (coronary artery disease) Priority: Secondary Status: Chronic Qualifiers: Coronary Disease-Associated Artery/Lesion type: bypass graft [place] vs. tr ansplanted heart: [place] heart Associated angina: with stable angina Qualified Code(s): I25.708 - Atherosclerosis of coronary artery bypass graft(s), unspecified, with other forms of angina pectoris (2) Acute on chronic systolic (congestive) heart failure Priority: Primary Status: Acute (3) HLD (hyperlipidemia) Priority: Secondary Status: Acute Qualifiers: Hyperlipidemia type: mixed hyperlipidemia Qualified Code(s): E78.2 - Mixed hyperlipidemia (4) HTN (hypertension) Priority: Secondary Status: Acute Qualifiers: Hypertension type: essential hypertension Qualified Code(s): I10 - Essential (primary) hypertension Hospital course: Mr. Pizarro is a 77 year old male past mental history of atrial fibrillation on anticoagulation heart failure with reduced ejection fraction with AICD coronary artery disease status post PCI and CABG history of vascular disease diabetes hypertension thyroid disease. Presented to [facility] ED with complaints of shortness of breath that progressively worsened over 1 day. He has also been experiencing increased abdominal swelling and pedal edema. Patient admits that he has not taken his diuretic for several days because he was "tired of peeing so much"-he normally uses oxygen only at night however has required oxygen during the day with little relief. He was not hypoxic on presentation and lab work did show an elevated BNP of 1035 chest x-ray did show some bilateral pleural effusion and significant pulmonary vascular congestion-suggestive of congestive heart failure.he was given IV diuretics his respiratory status improved patient did complete a 6 minute walk and did not qualify for home oxygen at this time. Urinalysis was completed suspicious for UTI he does complain of some bladder pain we will send him home on oral Cipro. Patient was educated on the importance of taking his diuretic as well as monitoring salt and fluid intake. advised patient to follow-up with primary care provider since this provider knows him best and can adjust medications accordingly. Currently he is hemodynamically stable appears to be back to his baselinehe is ready for discharge - Time Spent with Patient Total time spent providing and/or coordinating discharge services: - Discharge Medications Prescriptions: Ciprofloxacin HCl [Cipro] 250 mg PO BID #6 tablet Home Medications: Aspirin [Lo-Dose Aspirin EC] 81 mg PO DAILY 08/10/17 [History] Atorvastatin [Lipitor] 40 mg PO DAILY 08/10/17 [History] Carvedilol 3.125 mg PO BID 08/10/17 [History] Cinnamon Bark [Cinnamon] 500 mg PO DAILY 08/10/17 [History] Isosorbide MONOnitrate [Isosorbide Mononitrate ER] 120 mg PO DAILY 08/10/17 [History] Lisinopril 2.5 mg PO DAILY 08/10/17 [History] Nitroglycerin [Nitrostat] 0.4 mg SL Q5M PRN 08/10/17 [History] [place]-3/Dha/Epa/Fish Oil [Fish Oil 1,000 mg Softgel] 1 cap PO DAILY 08/10/17 [History] Potassium Chloride [K-Tab ER] 10 meq PO DAILY 08/10/17 [History] Ticagrelor [Brilinta] 90 mg PO BID 08/10/17 [History] Acetaminophen [Tylenol] 650 mg PO Q6HR PRN tablet 09/01/17 [Rx] Furosemide [Lasix] 20 mg PO BID #60 tablet 11/10/17 [Rx] Ciprofloxacin HCl [Cipro] 250 mg PO BID #6 tablet 04/24/18 [Rx] Allergies/Adverse Reactions: Allergy/AdvReac Type Severity Reaction Status Date / Time oxycodone [From Percocet] Allergy Hives Verified 09/01/17 16:21 tramadol Allergy Hives Verified 09/01/17 16:21 Date of admission: 04/22/18 19:51 Primary care physician: PCP NONE Consults: 04/24/18 09:39 Consult to Nurse Navigator [CONS] Routine Comment: CHF - Constitutional Vitals: Temp Pulse Resp BP Pulse Ox 97.4 F L 65 18 134/72 98 04/24/18 11:55 04/24/18 11:55 04/24/18 11:55 04/24/18 11:55 04/24/18 11:55 Exam: Vitals: Reviewed General: Well-appearing, NAD Skin: Warm and supple. HEENT: Moist mucous membranes. No conjunctivae pallor. Neck: No lymphadenopathy. (+) JVD. Chest: CTA Heart: Normal S1 & S2; rhythmic. Abdomen: soft and non-tender to palpation. No peritoneal reaction. Extremities: No clubbing, cyanosis.no edema. No calf tenderness. Normal distal pulses. Neurological: Awake, alert and oriented to person, place and time. No focal deficits. Psych: Affect appropriate. - Patient Status Disposition: Home Health Service Condition: Good Functional capacity at discharge: independent ambulation Overall status at discharge: patient is back to baseline - Discharge Instructions Instructions: Heart Failure (DC) Follow Up With: NONE,PCP [Primary Care Provider] -
[2018-04-24] MEDS: Ondansetron ODT 4 MG TAB.RAPDIS SL PRN (15:41)
--- NOTE | 2018-04-24 21:36 | Physician Discharge Referral ---
Home Health/Hosp Referral Info Transfer to: Home Health Attending Provider: isael cronin Provider in Charge Post Discharge: PCP - Diagnosis (1) CAD (coronary artery disease) Priority: Secondary Status: Chronic (2) Acute on chronic systolic (congestive) heart failure Priority: Primary Status: Acute (3) HLD (hyperlipidemia) Priority: Secondary Status: Acute (4) HTN (hypertension) Priority: Secondary Status: Acute - Respiratory Orders Smoking Cessation: Smoking cessation has been advised. For more information, call the [place] Tobacco Quit Line at 4-719-EWQZ-NOW. - Diet/Nutrition Diet/Nutrition Orders: Regular - Activity Activity Orders: Up ad ulises - Services Needed Following services are medically necessary services: Nursing, Home Health Aide - Transfer Medications Prescriptions: Ciprofloxacin HCl [Cipro] 250 mg PO BID #6 tablet Home Medications: Aspirin [Lo-Dose Aspirin EC] 81 mg PO DAILY 08/10/17 [History] Atorvastatin [Lipitor] 40 mg PO DAILY 08/10/17 [History] Carvedilol 3.125 mg PO BID 08/10/17 [History] Cinnamon Bark [Cinnamon] 500 mg PO DAILY 08/10/17 [History] Isosorbide MONOnitrate [Isosorbide Mononitrate ER] 120 mg PO DAILY 08/10/17 [History] Lisinopril 2.5 mg PO DAILY 08/10/17 [History] Nitroglycerin [Nitrostat] 0.4 mg SL Q5M PRN 08/10/17 [History] [place]-3/Dha/Epa/Fish Oil [Fish Oil 1,000 mg Softgel] 1 cap PO DAILY 08/10/17 [History] Potassium Chloride [K-Tab ER] 10 meq PO DAILY 08/10/17 [History] Ticagrelor [Brilinta] 90 mg PO BID 08/10/17 [History] Acetaminophen [Tylenol] 650 mg PO Q6HR PRN tablet 09/01/17 [Rx] Furosemide [Lasix] 20 mg PO BID #60 tablet 11/10/17 [Rx] Ciprofloxacin HCl [Cipro] 250 mg PO BID #6 tablet 04/24/18 [Rx] Allergies/Adverse Reactions: Allergy/AdvReac Type Severity Reaction Status Date / Time oxycodone [From Percocet] Allergy Hives Verified 09/01/17 16:21 tramadol Allergy Hives Verified 09/01/17 16:21 Certification: Further, I certify that my clinical findings support that this patient is homebound (i.e. absences from home require considerable and taxing effort and are for medical reasons or latter day services or infrequently or short duration when for other reasons) because: Homebound Reason: Severity of cardiac or pulmonary status limits activity tolerance Attestation: My signature below is to certify that this patient is under my care and that I, or nurse practitioner, or a physician's fitness assistant working with me, has a [id number] encounter with this patient.
--- NOTE | 2018-04-25 22:35 | Electrocardiograph Report ---
[place] [id number] Test Date: 2018-04-22 Pat Name: Yue Pizarro Department: [id number] Room: 3B Gender: M Dental Scheduling Coordinator: : 1940 Requested By: Dexter Fritz Order Number: [id number] Reading MD: Virgie Katz Measurements Intervals [place] Rate: 78 P: -29 FL: 174 QRS: -53 QRSD: 181 T: 133 QT: 478 QTc: 545 Interpretive Statements A-V dual-paced rhythm with some inhibition No further analysis attempted due to paced rhythm Electronically Signed On 04-25-2018 22:33:32 EST by Virgie Katz
== END 2018-04-24 17:39 | disposition home health service (06) ==
LOC: EMEROOARM 17:49 → 3BNU 17:49
PROVIDERS: ADMIT Internal Medicine; ATTEND Internal Medicine

== ENCOUNTER 2018-07-29 15:13 | Inpatient (IN) ==
[2018-07-29] MEDS ORDERED: 0.9 % Sodium Chloride 500 ML IVC ONE (15:22)
[2018-07-29] MEDS ORDERED: Aspirin 81 MG TAB.CHEW PO ONE (15:22)
--- NOTE | 2018-07-29 15:25 | Emergency Department Note ---
Disposition Clinical Impression: ACS (acute coronary syndrome) Disposition: Still a Patient General Adult HPI - General Chief complaint: ED Chest Pain Stated complaint: back pain Time Seen by Provider: 07/29/18 15:15 Source: patient Limitations: no limitations Nursing Notes Reviewed: Yes Vital Signs Reviewed: Yes - History of Present Illness HPI Narrative: ED attending attestation note: I examined this patient and my medical decision-making was reviewed with the emergency medicine resident Louie Stafford. I agree with the documented findings, disposition and treatment plan as described except to the extent set forth below. Briefly: 77-year-old male by EMS for left flank pain which is benign on since 3 AM and for the past 3 hours substernal left-sided chest pain. Patient has a history of open-heart surgery in the past patient says he has been having nausea and vomiting loss or decreased appetite and white stools. Abdomen is surgically benign he is afebrile with stable vitals. Patient will undergo ACS and GI workup contact simultaneously. Disposition pending. Patient stable. Pain Scale: 7 - Related Data Home Medications Medication Instructions Recorded Confirmed Aspirin [Lo-Dose Aspirin EC] 81 mg PO DAILY 08/10/17 02/01/18 Atorvastatin [Lipitor] 40 mg PO DAILY 08/10/17 04/24/18 Carvedilol 3.125 mg PO BID 08/10/17 04/24/18 Cinnamon Bark [Cinnamon] 500 mg PO DAILY 08/10/17 02/01/18 Isosorbide MONOnitrate [Isosorbide 120 mg PO DAILY 08/10/17 02/01/18 Mononitrate ER] Lisinopril 2.5 mg PO DAILY 08/10/17 02/01/18 Nitroglycerin [Nitrostat] 0.4 mg SL Q5M PRN 08/10/17 04/24/18 [place]-3/Dha/Epa/Fish Oil [Fish Oil 1 cap PO DAILY 08/10/17 02/01/18 1,000 mg Softgel] Potassium Chloride [K-Tab ER] 10 meq PO DAILY 08/10/17 04/24/18 Ticagrelor [Brilinta] 90 mg PO BID 08/10/17 02/01/18 Previous Rx's Medication Instructions Recorded Acetaminophen [Tylenol] 650 mg PO Q6HR PRN tablet 09/01/17 Furosemide [Lasix] 20 mg PO BID #60 tablet 11/10/17 Ciprofloxacin HCl [Cipro] 250 mg PO BID #6 tablet 04/24/18 Allergies Allergy/AdvReac Type Severity Reaction Status Date / Time oxycodone [From Percocet] Allergy Hives Verified 09/01/17 16:21 tramadol Allergy Hives Verified 09/01/17 16:21 Past Medical History - Past Medical History Medical history: Reports: asthma, atrial fibrillation, CHF, coronary artery disease, CVA, diabetes, hyperlipidemia, hypertension, myocardial infarction, th yroid disease Surgical history: Reports: angioplasty/stent, cholecystectomy, coronary bypass (CABG), pacemaker/AICD Psychiatric history: Reports: anxiety, depression - Social History Smoking Status: Former smoker Smokeless Tobacco Status: No Alcohol use: Reports: rarely Drug use: Reports: none Physical Exam - General Limitations: no limitations General appearance: alert, in no apparent distress Course Vital Signs Temperature 98 F 07/29/18 15:18 Pulse Rate 72 07/29/18 15:18 Respiratory Rate 16 07/29/18 15:18 Blood Pressure 149/77 07/29/18 15:18 O2 Sat by Pulse Oximetry 99 07/29/18 15:18 Temperature 98 F 07/29/18 15:18 Pulse Rate 72 07/29/18 15:18 Respiratory Rate 16 07/29/18 15:18 Blood Pressure 149/77 07/29/18 15:18 O2 Sat by Pulse Oximetry 99 07/29/18 15:18 Oxygen Delivery Oxygen Delivery Room Air
--- NOTE | 2018-07-29 15:26 | Emergency Department Note ---
Disposition Clinical Impression: ACS (acute coronary syndrome) Disposition: Admitted As Inpatient Condition: Undetermined Time of Disposition: 18:15 Chest Pain HPI - General Chief Complaint: ED Chest Pain Stated Complaint: back pain Time Seen by Provider: 07/29/18 15:15 Source: patient, EMS Mode of arrival: EMS Limitations: no limitations Vital Signs Reviewed: Yes Nursing Notes Reviewed: Yes - History of Present Illness HPI Narrative: 77-year-old male past medical history of COPD prior CABG and stent placements presenting for one day history of nausea, vomiting, chest pain, shortness of breath. Patient states approximately 3:30 this morning he developed nausea with vomiting. Patient states that he has vomited approximately 3-4 times today noticed some scant flecks of blood in his vomitus. Patient states that approximately 3 hours ago he developed left sided chest pain radiating through his left axilla into his back. In addition to the above-mentioned symptoms patient also complains of lightheadedness, dizziness, neck and back pain Patient denies abdominal pain, numbness or paresthesias. Pt complaint: chest pain Onset (ago): day(s) Duration: constant Onset: during rest Pain Location: left chest Severity: moderate Severity scale (1-10): 7 Quality: other (Crushing) Pain Radiation: back Associated symptoms: Reports: nausea, vomiting - Related Data Home Medications Medication Instructions Recorded Confirmed Aspirin [Lo-Dose Aspirin EC] 81 mg PO DAILY 08/10/17 02/01/18 Atorvastatin [Lipitor] 40 mg PO DAILY 08/10/17 04/24/18 Carvedilol 3.125 mg PO BID 08/10/17 04/24/18 Cinnamon Bark [Cinnamon] 500 mg PO DAILY 08/10/17 02/01/18 Isosorbide MONOnitrate [Isosorbide 120 mg PO DAILY 08/10/17 02/01/18 Mononitrate ER] Lisinopril 2.5 mg PO DAILY 08/10/17 02/01/18 Nitroglycerin [Nitrostat] 0.4 mg SL Q5M PRN 08/10/17 04/24/18 Ponce-3/Dha/Epa/Fish Oil [Fish Oil 1 cap PO DAILY 08/10/17 02/01/18 1,000 mg Softgel] Potassium Chloride [K-Tab ER] 10 meq PO DAILY 08/10/17 04/24/18 Ticagrelor [Brilinta] 90 mg PO BID 08/10/17 02/01/18 Previous Rx's Medication Instructions Recorded Acetaminophen [Tylenol] 650 mg PO Q6HR PRN tablet 09/01/17 Furosemide [Lasix] 20 mg PO BID #60 tablet 11/10/17 Ciprofloxacin HCl [Cipro] 250 mg PO BID #6 tablet 04/24/18 Allergies Allergy/AdvReac Type Severity Reaction Status Date / Time oxycodone [From Percocet] Allergy Hives Verified 09/01/17 16:21 tramadol Allergy Hives Verified 09/01/17 16:21 Review of Systems: in addition to the symptoms mentioned in the history of present illness, patient also complains of lightheadedness, dizziness, neck and back pain Patient denies abdominal pain, numbness or paresthesias. All systems ED: reviewed and negative except as stated. Review of Systems: As Per HPI Chest Pain PMH - Past Medical History Medical history: Reports: asthma, atrial fibrillation, CHF, coronary artery disease, CVA, diabetes, hyperlipidemia, hypertension, myocardial infarction, thyroid disease Surgical history: Reports: angioplasty/stent, cholecystectomy, coronary bypass (CABG), pacemaker/AICD Psychiatric history: Reports: anxiety, depression - Social History Smoking Status: Former smoker Alcohol use: Reports: rarely Drug use: Reports: none Physical Exam Constitutional: No acute distress, [id number], engaged to conversation, speech is fluid, answers questions appropriately Neuro: GCS 15, no overt focal neurological deficits Head: Atraumatic, normocephalic Eyes: Pupils equal, round and reactive to light, no scleral icterus, no conjunctival injection Neck: Trachea midline without deviation. Anterior neck is supple without swelling. *Chest: Symmetric chest wall rise *Heart: Cardiac rhythm and rate are regular with S1 and S2 , no S3 or S4 appreciated, no murmurs, gallops, rubs, or clicks. *Lungs: Lungs are clear to auscultation bilaterally, without accessory muscle use or prolonged expiratory phase. No wheezes, rhonchi or stridor appreciated. Abdomen: Abdomen is flat, soft to palpation, normal bowel sounds. No abdominal bruit auscultated. Non-distended, non-rigid, no organomegaly, no ascites appreciated. No pulsatile mass, no tenderness or guarding to palpation in all four quadrants, no rebound Extremities: Normal capillary refill without evidence of pedal edema, joint swelling or erythema. Pulses/motor intact in all 4 extremities. Psychiatric exam: Patient displays a normal affect and mood for the environment. No overt signs of hallucination. Integumentary: warm, dry, intact, normal color. No rash, cyanosis, diaphoresis, erythema, or pallor - General Limitations: no limitations General appearance: alert, in no apparent distress Course Course Narrative: ACS rule out Chest x-ray, EKG, troponin 324 mg of aspirin Screening labs IV fluids 500 mL bolus - Reevaluation(s) Reevaluation #1: On evaluation of the internal medicine resident patient is now complaining of severe epigastric pain and pleuritic chest pain. We will add on a d-dimer a CT scan without contrast of the abdomen and pelvis. Vital Signs Temperature 98 F 07/29/18 15:18 Pulse Rate 72 07/29/18 15:18 Respiratory Rate 16 07/29/18 15:18 Blood Pressure 149/77 07/29/18 15:18 O2 Sat by Pulse Oximetry 99 07/29/18 15:18 Temperature 98 F 07/29/18 15:18 Pulse Rate 67 07/29/18 17:06 Respiratory Rate 16 07/29/18 17:06 Blood Pressure 136/77 07/29/18 17:06 O2 Sat by Pulse Oximetry 98 07/29/18 17:06 Oxygen Delivery Oxygen Delivery Nasal Cannula Chest Pain - MDM Narrative Medical decision making narrative: Patient heart score is 6 Patient with elevated troponin 0.04 and mildly elevated creatinine of 1.3 to Patient has remained hemodynamically stable in ED Patient be admitted to hospitalist medicine service for further evaluation and rule out of ACS/trending troponins Patient verbalizes understanding and agreement this plan. - Lab Data Lab results reviewed: Yes I reviewed the patient's lab results. Result diagrams: 07/29/18 15:22 07/29/18 15:22 Lab Results 07/29/18 07/29/18 07/29/18 Range/Units 15:22 15:22 16:28 WBC 8.4 (4.3-11.1) K/mcL RBC 5.50 (4.19-5.50) M/mcL Hgb 16.3 (12.9-16.9) g/dL Hct 47.8 (37.5-50.1) % MCV 86.9 (83.0-100.0) fL MCH 29.6 (28.0-33.3) pg MCHC 34.1 (31.6-35.5) g/dL RDW 14.2 (11.5-14.5) % Plt Count 137 L (140-400) K/mcL MPV 10.6 (9.4-12.4) fL Immature Gran % 0.4 (0-4) % Seg Neutrophils % 70.7 % Lymphocytes % 12.5 % Monocytes % 14.5 % Eosinophils % 1.5 % Basophils % 0.4 % Neutrophils # 6.0 (1.6-8.9) K/mcL Lymphocytes # 1.1 (0.6-4.6) K/mcL Monocytes # 1.2 (0.0-1.3) K/mcL Eosinophils # 0.1 (0.0-0.6) K/mcL Basophils # 0.0 (0.0-0.2) K/mcL PT 12.8 H (9.4-12.1) Seconds INR 1.1 APTT 29.6 (26.0-36.0) Seconds Sodium 136 (136-145) mEq/L Potassium 3.6 (3.5-5.1) mEq/L Chloride 102 (98-107) mEq/L Carbon Dioxide 25 (23-29) mEq/L BUN 43 H (8-23) mg/dL Creatinine 1.32 H (0.70-1.30) mg/dL Est GFR ( Amer) > 60 (> 60) Est GFR (Non-Af Amer) 52 L (> 60) BUN/Creatinine Ratio 33 H (6-26) Glucose 126 H (70-105) mg/dL Calculated Osmolality 294 (280-300) Calcium 9.3 (8.6-10.3) mg/dL Total Bilirubin 0.9 (0.3-1.0) mg/dL Direct Bilirubin 0.2 (0.0-0.2) mg/dL Indirect Bilirubin 0.7 (0.0-1.2) mg/dL AST 44 H (13-39) Units/L ALT 44 (7-52) Units/L Alkaline Phosphatase 60 (34-104) Units/L Troponin I 0.04 H* (< 0.04) ng/mL Serum Total Protein 7.8 (6.4-8.9) g/dL Albumin 4.4 (3.5-5.7) g/dL Globulin 3.4 (2.4-3.5) g/dL Albumin/Globulin Ratio 1.3 (1.1-2.2) Lipase 14 (11-82) Units/L - Radiology Data Radiology results reviewed: Yes I reviewed the patient's radiology results. Chest X-Ray 07/29/18 15:22 IMPRESSION: Unchanged enlargement of the cardiomediastinal silhouette. Trace bilateral pleural effusions with mild prominence of interstitial lung markings. Consider possibility of pulmonary venous congestion. No focal consolidation, or pneumothorax. D/ / 07/29/2018 15:59:42 Tommy Maahraj MD / pretty Interpreting Provider: Tommy Maharaj MD - EKG Data EKG attestation: Yes I reviewed and interpreted this EKG. EKG results narrative: Patient's EKG shows an atrioventricular dual paced rhythm at a heart rate of 74 bpm, CA interval of 167 ms, QRS duration of 192 ms, QT/QTc interval of 512/569 ms respectively,. There appear to be isolated ST segment elevations in leads V1 through V3 which are consistent with prior EKG, there are no reciprocal ST segment depressions, there are abnormal T-wave inversions noted in lead aVL but is again consistent with prior EKG and is isolated to that lead, there are no other signs of acute ischemic change. EKG performed today is generally consistent with prior EKG performed on 05/22/2018. Heart Score - Score History: Moderately Suspicious EKG: Non Specific repolarisation Disturbance Age: Greater than 65 Risk Factors: Equal/Greater than 3 risk factor or history of atherosclerotic disease Troponin: Less than normal limit HEART Score Total: 6
[2018-07-29 15:39] LABS: Basophils % 0.4 %; Eosinophils # 0.1 K/mcL (0.0-0.6); Eosinophils % 1.5 %; Hematocrit 47.8 % (37.5-50.1); Hemoglobin 16.3 g/dL (12.9-16.9); Immature Granulocytes % 0.4 % (0-4); Lymphocytes # 1.1 K/mcL (0.6-4.6); Lymphocytes % 12.5 %; Mean Corpuscular HGB Conc 34.1 g/dL (31.6-35.5); Mean Corpuscular Hemoglobin 29.6 pg (28.0-33.3); Mean Corpuscular Volume 86.9 fL (83.0-100.0); Mean Platelet Volume 10.6 fL (9.4-12.4); Monocytes # 1.2 K/mcL (0.0-1.3); Monocytes % 14.5 %; Platelet Count 137 K/mcL (140-400); Red Cell Distribution Width 14.2 % (11.5-14.5); Segmented Neutrophils % 70.7 %
[2018-07-29 16:03] LABS: Alanine Aminotransferase 44 Units/L (7-52); Albumin 4.4 g/dL (3.5-5.7); Albumin/Globulin Ratio 1.3 (1.1-2.2); Alkaline Phosphatase 60 Units/L (34-104); Aspartate Amino Transferase 44 Units/L (13-39); BUN/Creatinine Ratio 33 (6-26); Bilirubin,Direct 0.2 mg/dL (0.0-0.2); Bilirubin,Indirect 0.7 mg/dL (0.0-1.2); Bilirubin,Total 0.9 mg/dL (0.3-1.0); Blood Urea Nitrogen 43 mg/dL (8-23); Calcium 9.3 mg/dL (8.6-10.3); Carbon Dioxide 25 mEq/L (23-29); Chloride 102 mEq/L (98-107); Globulin 3.4 g/dL (2.4-3.5); Glucose 126 mg/dL (70-105); Lipase 14 Units/L (11-82); Osmolality,Calculated 294 (280-300); Potassium 3.6 mEq/L (3.5-5.1); Sodium 136 mEq/L (136-145); Total Protein 7.8 g/dL (6.4-8.9); eGFR For Non-African Americans 52 (> 60)
[2018-07-29 16:08] LABS: Troponin I 0.04 ng/mL (< 0.04)
[2018-07-29 16:43] LABS: INR 1.1; Prothrombin Time 12.8 Seconds (9.4-12.1)
[2018-07-29 16:46] LABS: Activated Partial Thrombo Time 29.6 Seconds (26.0-36.0)
[2018-07-29] MEDS ORDERED: Naloxone 0.4 MG/ML INJ IVP PRN (18:23)
--- NOTE | 2018-07-29 18:26 | Internal Med History&Physical ---
<Mane Kelly - Last Filed: 07/29/18 18:43> Date of Encounter: 07/29/18 Time of Encounter: 18:05 Internal Medicine - H&P: HPI Chief complaint: Chest pain Admitted From: Emergency Dept Plans for Post Hospital Care: Home History of present illness: Mr. Pizarro is a 77 year old male with history of CAD status post CABG, A. fib not on anticoagulation, heart failure with reduced ejection fraction with AI CD/pacemaker, CVA, diabetes, hypertension who presented to the ED with 1 day history of crushing chest pain. He said the pain started substernally and radiated to both sides with some radiation towards his back as well. He states that the pain started instantaneously at approximately 3 AM and has been constant since. At about the time that it started he immediately started feeling nausea and started vomiting as well. It was associated with shortness of breath but without diaphoresis. He denies any syncope however he did feel like he might pass out during this time as well. Finally, there is some association with pleuritic chest pain saying that it hurts to take a deep breath. He has no palpitations. He says that the only time that it is systolic this in the past is when he has had a heart attack in the past. He does have a significant cardiac history and has had a CABG in the past. He says that his other associated symptoms including diarrhea which started approximately 5 AM and has been completely white. Significantly, the patient does admit to a history of DVTs in the distant past. His review of systems are otherwise negative. The patient had a workup in the ED which included a chest x-ray significant for enlargement of the cardiomediastinal silhouette and trace bilateral pleural effusions with mild prominence of interstitial lung markings. He did have an EKG which showed a paced rhythm with nonspecific ST-T wave changes that are generally similar to previous EKGs, along with a troponin of 0.04. Additionally, upon request they did get a d-dimer which was negative. They also ordered a CT-abdomen pelvis which is pending. The patient was admitted to the floor for further workup. Past Med Surg Social Fam HX - Past Medical History Medical history: asthma, atrial fibrillation, CHF, coronary artery disease, CVA, diabetes, hyperlipidemia, hypertension, myocardial infarction, thyroid disease Additional medical history: very hard of hearing Psychiatric history: anxiety, depression - Past Surgical History Surgical History: angioplasty/stent, cholecystectomy, coronary bypass (CABG), pacemaker/AICD Additional surgical history: stent placement - Social History Smoking Status: Former smoker Smokeless Tobacco Status: No Alcohol use: rarely Drug use: none - Family History Grandfather Family Member Ethnicity: Non- Living Status: Hx Family Cardiac Disorders: Yes Mother Family Member Ethnicity: Non- Living Status: Hx Family Neurologic Disorders: Yes (CVA) Father Adopted: No Family Member Ethnicity: Non- Living Status: Hx Family Cardiac Disorders: No Hx Family Respiratory Disorders: No Hx Family Cancer: Yes (Unknown what type) Hx Family GI Disorders: No Hx Family Endocrine Disorder: No Hx Family Neuromuscular Disorders: No Hx Family Neurologic Disorders: No Hx Family HEENT Disorders: No Hx Family Autoimmune Disorders: No Internal Medicine - H&P: Meds Aspirin [Lo-Dose Aspirin EC] 81 mg PO DAILY 08/10/17 [History] Atorvastatin [Lipitor] 40 mg PO QPM 08/10/17 [History] Carvedilol 3.125 mg PO BID 08/10/17 [History] Cinnamon Bark [Cinnamon] 500 mg PO DAILY 08/10/17 [History] Lisinopril 2.5 mg PO DAILY 08/10/17 [History] Nitroglycerin [Nitrostat] 0.4 mg SL Q5M PRN 08/10/17 [History] [place]-3/Dha/Epa/Fish Oil [Fish Oil 1,000 mg Softgel] 1 cap PO DAILY 08/10/17 [History] Potassium Chloride [K-Tab ER] 10 meq PO DAILY 08/10/17 [History] Ticagrelor [Brilinta] 90 mg PO DAILY 08/10/17 [History] Furosemide [Lasix] 20 mg PO BID #60 tablet 11/10/17 [Rx] Acetaminophen [Tylenol] 650 mg PO TID PRN 07/30/18 [History] Isosorbide MONOnitrate (24 HR) [Imdur] 30 mg PO DAILY 07/30/18 [History] Allergy/AdvReac Type Severity Reaction Status Date / Time oxycodone [From Percocet] Allergy Hives Verified 07/30/18 14:48 tramadol Allergy Hives Verified 07/30/18 14:48 All Systems PM: A 10-system review of systems was performed and is negative for pertinent findings except as documented above in the HPI. Review of systems: Constitutional: Denies fevers, chills, weight loss, generalized fatigue Head/Neck: Denies SAWANT, neck stiffness EENT: Denies vision changes/blurriness, rhinorrhea, congestion, sore throat CVS: Admits to chest pains, dyspnea. Denies orthopnea, PND Pulm: Denies SOB, cough, sputum, hemoptysis, wheezing GI: Admits to abdominal pain, nausea, vomiting, diarrhea that is white : Denies dysuria, increased frequency, urgency, hematuria Heme: Denies ease of bleeding or bruising MSK: Denies joint pain, limited ROM Skin: Denies rashes, ulcers, color changes Neuro: Denies SAWANT, paresthesias, focal deficits, ataxia - Constitutional Vitals: Temp Pulse Resp BP Pulse Ox 98 F 67 16 136/77 98 07/29/18 15:18 07/29/18 17:06 07/29/18 17:06 07/29/18 17:06 07/29/18 17:06 Exam: Gen: Vitals noted. No acute distress. Hard of hearing Eyes: anicteric sclerae, moist conjunctivae; no lid-lag; Pupils equal and reactive to light HENT: Atraumatic; oropharynx clear with moist mucous membranes and no mucosal ulcerations; normal hard and soft palate Neck: Trachea midline; supple, no thyromegaly or lymphadenopathy Cardiac: RRR, no murmur, +S1/S2 Pulmonary: Faint crackles heard in left lower lung base Abdomen: soft, very tender to palpation in the epigastric region with voluntary guarding however less obvious noting of involuntary guarding MSK: ROM intact, no joint swelling noted Extremities: no BLE edema, nontender calf, no cyanosis or clubbing Skin: Normal temperature, turgor and texture; no rash, ulcers or subcutaneous nodules Neuro: moves all extremities, no focal deficits. Psych: Appropriate mood and behavior. A&Ox3 Internal Med - H&P Results - Labs CBC & Chem 7: 07/29/18 15:22 07/29/18 15:22 Labs: Short CBC 07/29/18 Range/Units 15:22 WBC 8.4 (4.3-11.1) K/mcL Hgb 16.3 (12.9-16.9) g/dL Hct 47.8 (37.5-50.1) % Plt Count 137 L (140-400) K/mcL Neutrophils # 6.0 (1.6-8.9) K/mcL BMP 07/29/18 15:22 Sodium 136 Potassium 3.6 Chloride 102 Carbon Dioxide 25 BUN 43 H Creatinine 1.32 H Glucose 126 H Calcium 9.3 Cardiac Enzymes 07/29/18 Range/Units 15:22 Troponin I 0.04 H* (< 0.04) ng/mL Liver Function 07/29/18 Range/Units 15:22 Total Bilirubin 0.9 (0.3-1.0) mg/dL Direct Bilirubin 0.2 (0.0-0.2) mg/dL AST 44 H (13-39) Units/L ALT 44 (7-52) Units/L Alkaline Phosphatase 60 (34-104) Units/L Albumin 4.4 (3.5-5.7) g/dL - Impressions ITS Impressions Chest X-Ray 07/29/18 15:22 IMPRESSION: Unchanged enlargement of the cardiomediastinal silhouette. Trace bilateral pleural effusions with mild prominence of interstitial lung markings. Consider possibility of pulmonary venous congestion. No focal consolidation, or pneumothorax. D/ / 07/29/2018 15:59:42 Tommy Maharaj MD / pretty Interpreting Provider: Tommy Maharaj MD - Assessment and Plan (1) Abdominal pain Current Visit: Yes Status: Acute Assessment and plan: Epigastric abdominal pain Patient is very tender to palpation, voluntary guarding is noted Patient states that he is had nausea and vomiting, diarrhea is noted as well Noncontrast CT of the abdomen 05/22/18 demonstrated punctate nonobstructing stones of the inferior left kidney He otherwise has not had any illness that explains this abdominal pain I will order a lactic acid, contrasted CT of the abdomen and pelvis Qualifiers: Abdominal location: epigastric Qualified Code(s): R10.13 - Epigastric pain (2) Chest pain Current Visit: Yes Status: Acute Assessment and plan: Substernal chest pain unrelieved by nitro or rest Atypical chest pain, crushing in nature. Worse with deep inspiration. Etiology unclear Patient does have history of CAD s/p CABG in past. Chest x-ray shows enlargement of cardiomediastinal silhouette with pleural effusions bilaterally He does have elevated troponin at 0.04, however this is nonspecific. D-dimer is 406 EKG is very similar to previous, however difficult to interpret given BiV pacing Last known LVEF 45% in 02/05 Plan Transitioned troponins every 6 hours Continuous cardiac monitoring Continuous oximetry Limited echo in the morning to evaluate EF Anti-emetics and morphine prn Consider cardio consult if needed Qualifiers: Chest pain type: precordial pain Qualified Code(s): R07.2 - Precordial pain (3) Chronic CHF (congestive heart failure) Current Visit: No Status: Chronic Assessment and plan: CHF with reduced ejection fraction of 45% Does not appear to be decompensated at this time We will repeat limited echo in the morning to evaluate ejection fraction. Plan to continue home meds of aspirin and statin beta fuentes TEE inhibitor and Lasix Monitor ins and outs Qualifiers: Heart failure type: systolic Qualified Code(s): I50.22 - Chronic systolic (congestive) heart failure (4) COPD (chronic obstructive pulmonary disease) Current Visit: No Status: Chronic Assessment and plan: COPD without acute exacerbation Qualifiers: COPD type: emphysema Emphysema type: unspecified Qualified Code(s): J43.9 - Emphysema, unspecified (5) Diabetes Current Visit: No Status: Chronic Assessment and plan: Diabetes type 2, appears well controlled Accu-Cheks with sliding scale insulin as needed Qualifiers: Diabetes mellitus type: type 2 Diabetes mellitus assisted insulin use: without assisted use Diabetes mellitus complication status: with kidney complications Diabetes mellitus complication detail: with chronic kidney disease Chronic kidney disease stage: stage 2 (mild) Qualified Code(s): E11.22 - Type 2 diabetes mellitus with diabetic chronic kidney disease; N18.2 - Chronic kidney disease, stage 2 (mild) (6) CAD (coronary artery disease) Current Visit: No Status: Chronic Assessment and plan: Continue home [place], aspirin, lisinopril, carvedilol, Lipitor Qualifiers: Coronary Disease-Associated Artery/Lesion type: bypass graft [place] vs. transplanted heart: [place] heart Associated angina: with stable angina Qualified Code(s): I25.708 - Atherosclerosis of coronary artery bypass graft(s), unspecified, with other forms of angina pectoris (7) HTN (hypertension) Current Visit: No Status: Acute Assessment and plan: Continue home medications Qualifiers: Hypertension type: essential hypertension Qualified Code(s): I10 - Essential (primary) hypertension (8) DVT prophylaxis Current Visit: No Status: Acute Assessment and plan: SQ Heparin - Time Spent With Patient Total time spent is greater than 50% in coordination of care (as documented) at patient's floor/unit and/or counseling patient: <Jimy Hansen - Last Filed: 07/30/18 15:29> Date of Encounter: 07/29/18 Internal Medicine - H&P: HPI History of present illness: Mr. Pizarro is a 77 year old male All Systems PM: A 10-system review of systems was performed and is negative for pertinent findings except as documented above in the HPI. - Constitutional Vitals: Temp Pulse Resp BP Pulse Ox 97.4 F L 64 16 91/54 96 07/30/18 11:45 07/30/18 11:45 07/30/18 11:45 07/30/18 11:45 07/30/18 11:45 Internal Med - H&P Results - Labs CBC & Chem 7: 07/30/18 03:17 07/30/18 03:17 Labs: Short CBC 07/29/18 07/30/18 Range/Units 15:22 03:17 WBC 8.4 7.4 (4.3-11.1) K/mcL Hgb 16.3 16.8 (12.9-16.9) g/dL Hct 47.8 50.1 (37.5-50.1) % Plt Count 137 L 151 (140-400) K/mcL Neutrophils # 6.0 4.7 (1.6-8.9) K/mcL BMP 07/29/18 07/30/18 15:22 03:17 Sodium 136 135 L Potassium 3.6 3.5 Chloride 102 102 Carbon Dioxide 25 27 BUN 43 H 39 H Creatinine 1.32 H 1.28 Glucose 126 H 123 H Calcium 9.3 9.6 Cardiac Enzymes 07/29/18 07/29/18 07/30/18 Range/Units 15:22 21:02 03:17 Troponin I 0.04 H* 0.04 H* 0.04 H* (< 0.04) ng/mL Liver Function 07/29/18 Range/Units 15:22 Total Bilirubin 0.9 (0.3-1.0) mg/dL Direct Bilirubin 0.2 (0.0-0.2) mg/dL AST 44 H (13-39) Units/L ALT 44 (7-52) Units/L Alkaline Phosphatase 60 (34-104) Units/L Albumin 4.4 (3.5-5.7) g/dL Urine 07/29/18 Range/Units 18:15 Urine Color Yellow (Yellow) Urine Clarity Clear (Clear) Urine pH 6.0 (5.0-8.0) pH Units Ur Specific [place] 1.024 (1.010-1.025) Urine Protein 30 H (Neg-Trace) mg/dL Urine Glucose (UA) Normal (Normal) mg/dL - Impressions ITS Impressions Chest X-Ray 07/29/18 15:22 IMPRESSION: 1. Unchanged enlargement of the cardiomediastinal silhouette. Trace bilateral pleural effusions with mild prominence of interstitial lung markings. Consider possibility of pulmonary venous congestion. 2. No focal consolidation, or pneumothorax. D/ / 07/29/2018 15:59:42 Tommy Maharaj MD / pretty Interpreting Provider: Tommy Maharaj MD Abdomen/Pelvis CT 07/29/18 18:51 impression on the floor of the urinary bladder. Calcifications particularly within the right lobe of the prostate. Partial distention of the urinary bladder with mild bladder wall thickening anteriorly, likely due to incomplete distention. Peritoneum/Retroperitoneum: The abdominal aorta is normal in caliber with moderate calcified atherosclerotic plaque in the aorta and iliac circulation. No significant retroperitoneal adenopathy or free fluid. Bones/Soft Tissues: No acute osseous or soft tissue abnormality. Small fat containing inguinal hernias bilaterally. IMPRESSION: 1. Small persistent right pleural effusion with mild dependent right basilar atelectasis, overall improved compared to the previous study. 2. Previous median sternotomy with atherosclerotic calcification in the coronary circulation. 3. A 6 mm noncalcified left lower lobe pulmonary nodule. This demonstrates long-term stability dating back to CT of the abdomen 03/30/2013 with no follow-up imaging indicated. 4. No acute findings within the abdomen or pelvis. 5. Moderate prostatomegaly. 6. Previous cholecystectomy. RECOMMENDATIONS: 1 D/ / 07/29/2018 20:28:56 Pelon Bermudez MD / pretty Interpreting Provider: Pelon Bermudez MD Chest CT 07/29/18 18:51 impression on the floor of the urinary bladder. Calcifications particularly within the right lobe of the prostate. Partial distention of the urinary bladder with mild bladder wall thickening anteriorly, likely due to incomplete distention. Peritoneum/Retroperitoneum: The abdominal aorta is normal in caliber with moderate calcified atherosclerotic plaque in the aorta and iliac circulation. No significant retroperitoneal adenopathy or free fluid. Bones/Soft Tissues: No acute osseous or soft tissue abnormality. Small fat containing inguinal hernias bilaterally. IMPRESSION: 1. Small persistent right pleural effusion with mild dependent right basilar atelectasis, overall improved compared to the previous study. 2. Previous median sternotomy with atherosclerotic calcification in the coronary circulation. 3. A 6 mm noncalcified left lower lobe pulmonary nodule. This demonstrates long-term stability dating back to CT of the abdomen 03/30/2013 with no follow-up imaging indicated. 4. No acute findings within the abdomen or pelvis. 5. Moderate prostatomegaly. 6. Previous cholecystectomy. RECOMMENDATIONS: 1 D/ / 07/29/2018 20:28:56 Pelon Bermudez MD / pretty Interpreting Provider: Pelon Bermudez MD Echocardiogram Limited Views 07/30/18 18:32 Impressions: LVEF 35-40%. Normal LV chamber size. Segmental left ventricular systolic dysfunction similar to prior reports. Atypical septal motion consistent with post-operative status. Left Ventricular Wall Motion: Rest Echo Findings The mid inferior and mid inferior septal mena were hypokinetic. The basal inferior and basal inferior septal mena were akinetic. All other wall segments showed normal motion. Findings: Study Quality * Technically sub-optimal due to poor echocardiographic windows. ECG Findings * Paced rhythm. Left Ventricle * LVEF 35-40%. * Normal LV chamber size. * Segmental left ventricular systolic dysfunction similar to prior reports. * Atypical septal motion consistent with post-operative status. Pericardium * The pericardium appears normal. Device lead * A device lead was visualized in the right atrium and right ventricle. - Assessment and Plan (1) Norovirus Current Visit: Yes Status: Acute (2) Chest pain Current Visit: Yes Status: Acute Qualifiers: Chest pain type: precordial pain Qualified Code(s): R07.2 - Precordial pain (3) CAD (coronary artery disease) Current Visit: No Status: Chronic Qualifiers: Coronary Disease-Associated Artery/Lesion type: bypass graft [place] vs. transplanted heart: [place] heart Associated angina: with stable angina Qualified Code(s): I25.708 - Atherosclerosis of coronary artery bypass graft(s), unspecified, with other forms of angina pectoris (4) DVT prophylaxis Current Visit: No Status: Acute (5) Abdominal pain Current Visit: Yes Status: Acute Qualifiers: Abdominal location: epigastric Qualified Code(s): R10.13 - Epigastric pain (6) Chronic CHF (congestive heart failure) Current Visit: No Status: Chronic Qualifiers: Heart failure type: systolic Qualified Code(s): I50.22 - Chronic systolic (congestive) heart failure (7) HTN (hypertension) Current Visit: No Status: Acute Qualifiers: Hypertension type: essential hypertension Qualified Code(s): I10 - Esse ntial (primary) hypertension (8) COPD (chronic obstructive pulmonary disease) Current Visit: No Status: Chronic Qualifiers: COPD type: emphysema Emphysema type: unspecified Qualified Code(s): J43.9 - Emphysema, unspecified (9) Diabetes Current Visit: No Status: Chronic Qualifiers: Diabetes mellitus type: type 2 Diabetes mellitus assisted insulin use: without assisted use Diabetes mellitus complication status: with kidney complications Diabetes mellitus complication detail: with chronic kidney disease Chronic kidney disease stage: stage 2 (mild) Qualified Code(s): E11.22 - Type 2 diabetes mellitus with diabetic chronic kidney disease; N18.2 - Chronic kidney disease, stage 2 (mild) - Time Spent With Patient Total time spent is greater than 50% in coordination of care (as documented) at patient's floor/unit and/or counseling patient: - Attending Attestation Please see event note of this date.
[2018-07-29] MEDS ORDERED: Dextrose Gel 15 GM/37.5 ML TUBE PO PRN ×2 (18:30)
[2018-07-29] MEDS ORDERED: *HR* Dextrose 50 % in Water (Syg) 50 ML SYRINGE IVP PRN (18:30)
[2018-07-29] MEDS ORDERED: D5% in Water 1,000 ML IVC PRN (18:30)
[2018-07-29] MEDS ORDERED: Isovue-370 500 ML BOTTLE IVP ONE ×2 (18:38→18:51)
[2018-07-29 18:40] LABS: Bilirubin,Urine Negative (Negative); Blood,Urine Negative (Negative); Clarity,Urine Clear (Clear); Color,Urine Yellow (Yellow); Glucose,Urine (UA) Normal (Normal); Ketones,Urine Negative (Negative); Leukocyte Esterase,Urine Negative (Negative); Nitrite,Urine Negative (Negative); Protein,Urine 30 mg/dL (Neg-Trace); Specific Gravity,Urine 1.024 (1.010-1.025); Urobilinogen,Urine Normal (Normal)
[2018-07-29 18:45] LABS: Bacteria,Urine None Seen per hpf (None-Few); Hyaline Casts,Urine None Seen per lpf (None-Few); RBC,Urine 0-3 per hpf (0-3); Squamous Epithelial Cell,Urine None Seen per lpf (None-Few); WBC,Urine 0-3 per hpf (0-3)
--- NOTE | 2018-07-29 19:01 | Event Note ---
Date of Encounter: 07/29/18 Time of Encounter: 18:20 Mr Pizarro is 77 y/o male with hx of CAD presented to ED with sudden CP and dyspnea. He was evaluated and had slight troponin elevation. EKG is paced. He currently is resting comfortably but states he is having some abdominal discomfort. Exam alert Comfortable at rest in bed Mucus membranes dry Heart reg. Not tachy Lungs decreased but no wheeze Abd soft with bowel sounds. Tender epigastric region with deep palpation. No edema Moves all extremities I/P 1. Chest pain - hx CAD. R/O ACS/USA. Hold anticoagulation at this time. Follow troponin. 2. Abd pain - unclear etiology. CT ordered 3. CAD s/p CABG 4. COPD Pt placed in observation status at this time Further diagnoses and plan as per H&P.
[2018-07-29] MEDS: *HR* Ticagrelor 90 MG TABLET PO SCH (22:34)
[2018-07-29] MEDS: Furosemide 20 MG TABLET PO SCH (22:34)
[2018-07-29] MEDS: *HR* Heparin 5,000 UNIT/ML VIAL SQ SCH (22:34)
[2018-07-29] MEDS: Insulin DETEMIR 100 UNIT/ML X5UNITS SQ SCH (22:39)
[2018-07-30] MEDS: Insulin LISPRO 300 UNITS/3 ML VIAL SQ SCH ×4 (00:22→16:51)
[2018-07-30 00:51] LABS: Adenovirus F 40/41 PCR Not detected (Not detect); Astrovirus PCR Not detected (Not detect); C.difficile Toxin A/B Gene PCR Not detected (Not detect); Campylobacter by PCR Not detected (Not detect); Cryptosporidium by PCR Not detected (Not detect); Cyclospora cayetanensis PCR Not detected (Not detect); E. coli O157 by PCR Not detected (Not detect); Entamoeba histolytica PCR Not detected (Not detect); Enteroaggregative E.coli(EAEC) Not detected (Not detect); Enteropathogenic E.coli(EPEC) Not detected (Not detect); Enterotoxigenic E.coli (ETEC) Not detected (Not detect); Giardia lamblia PCR Not detected (Not detect); Norovirus GI/GII PCR DETECTED (Not detect); Plesiomonas shigelloides PCR Not detected (Not detect); Salmonella PCR Not detected (Not detect); Shig/EnteroinvasiveE coli EIEC Not detected (Not detect); Shigalike tox-prod E coli STEC Not detected (Not detect); Vibrio PCR Not detected (Not detect); Vibrio cholerae PCR Not detected (Not detect); Yersinia enterocolitica PCR Not detected (Not detect)
[2018-07-30 00:52] LABS: Rotavirus A PCR Not detected (Not detect); Sapovirus PCR Not detected (Not detect)
[2018-07-30] MEDS: Acetaminophen 325 MG TABLET PO PRN ×2 (03:06→08:11)
[2018-07-30] MEDS: Ondansetron 4 MG/2 ML VIAL IVP PRN ×3 (03:06→16:47)
[2018-07-30 03:58] LABS: Basophils % 0.3 %; Eosinophils # 0.1 K/mcL (0.0-0.6); Eosinophils % 1.8 %; Hematocrit 50.1 % (37.5-50.1); Hemoglobin 16.8 g/dL (12.9-16.9); Immature Granulocytes % 0.3 % (0-4); Lymphocytes # 1.4 K/mcL (0.6-4.6); Lymphocytes % 19.2 %; Mean Corpuscular HGB Conc 33.5 g/dL (31.6-35.5); Mean Corpuscular Hemoglobin 29.5 pg (28.0-33.3); Mean Platelet Volume 11.2 fL (9.4-12.4); Monocytes # 1.1 K/mcL (0.0-1.3); Monocytes % 15.4 %; Neutrophils # 4.7 K/mcL (1.6-8.9); Platelet Count 151 K/mcL (140-400); Red Blood Count 5.69 M/mcL (4.19-5.50); Red Cell Distribution Width 14.3 % (11.5-14.5)
[2018-07-30 04:08] LABS: INR 1.1; Prothrombin Time 12.4 Seconds (9.4-12.1)
[2018-07-30 04:15] LABS: BUN/Creatinine Ratio 30 (6-26); Blood Urea Nitrogen 39 mg/dL (8-23); Calcium 9.6 mg/dL (8.6-10.3); Carbon Dioxide 27 mEq/L (23-29); Chloride 102 mEq/L (98-107); Chol/HDL Ratio 2.3 (0-4.9); Cholesterol 78 mg/dL (< 200); Glucose 123 mg/dL (70-105); HDL Cholesterol 34 mg/dL (40-59); LDL Cholesterol,Calculated 16 mg/dL (0-99); Magnesium 2.3 mg/dL (1.6-2.6); Osmolality,Calculated 291 (280-300); Potassium 3.5 mEq/L (3.5-5.1); Sodium 135 mEq/L (136-145); Triglycerides 140 mg/dL (< 150); eGFR For Non-African Americans 54 (> 60)
[2018-07-30] MEDS: *HR* Heparin 5,000 UNIT/ML VIAL SQ SCH ×3 (05:48→21:27)
[2018-07-30] MEDS: Isosorbide MONOnitrate (24 HR) 60 MG TAB.ER.24H PO SCH (08:12)
[2018-07-30] MEDS: *HR* Ticagrelor 90 MG TABLET PO SCH ×2 (08:12→21:27)
[2018-07-30] MEDS: Furosemide 20 MG TABLET PO SCH ×2 (08:12→16:47)
[2018-07-30] MEDS: Aspirin Enteric Coated 81 MG Tablet PO SCH (08:12)
[2018-07-30] MEDS ORDERED: Perflutren Lipid Microsphere 1.3 ML in 0.9 % Sodium Chloride 8.7 ML IVP ONE (09:26)
--- NOTE | 2018-07-30 12:02 | Internal Med Progress Note ---
<Mane Kelly - Last Filed: 07/30/18 11:58> Hospitalist Progress Note - Encounter Date of Encounter: 07/30/18 Time of Encounter: 11:40 - Subjective Interval History: Patient is resting comfortably in bed at time of examination. He states that he has continued to have severe diarrhea all night long, and that his pain has pr imarily moved toward his abdomen rather than his chest. His chest pain is 2/10, and his abdominal pain is 6/10. He denies blood in his stool. He has no other acute complaints. - Exam Vitals: Temp Pulse Resp BP Pulse Ox 97.4 F L 64 16 91/54 96 07/30/18 11:45 07/30/18 11:45 07/30/18 11:45 07/30/18 11:45 07/30/18 11:45 Exam: Gen: Vitals noted. No acute distress. Hard of hearing Cardiac: RRR, no murmur, +S1/S2 Pulmonary: Faint crackles heard in left lower lung base Abdomen: soft, tender to palpation in the epigastric region MSK: ROM intact, no joint swelling noted Extremities: no BLE edema, nontender calf, no cyanosis or clubbing Skin: Normal temperature, turgor and texture; no rash, ulcers or subcutaneous nodules Neuro: moves all extremities, no focal deficits. Psych: Appropriate mood and behavior. A&Ox3 - Assessment and Plan (1) Abdominal pain Current Visit: Yes Status: Acute Assessment and Plan: Epigastric abdominal pain associated with dirrhea Patient texted positive for norovirus Will monitor for evidence of volume depletion (2) Chest pain Current Visit: Yes Status: Acute Assessment and Plan: Substernal chest pain unrelieved by nitro or rest Atypical chest pain, crushing in nature. Worse with deep inspiration. Suspect secondary to abdominal pathology Patient does have history of CAD s/p CABG in past. 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 Plan to continue home meds of aspirin and statin beta fuentes TEE inhibitor and Lasix Monitor ins and outs (4) COPD (chronic obstructive pulmonary disease) Current Visit: No Status: Chronic Assessment and Plan: COPD without acute exacerbation (5) CAD (coronary artery disease) Current Visit: No Status: Chronic Assessment and Plan: Continue home polenta, aspirin, lisinopril, carvedilol, Lipitor (6) HTN (hypertension) Current Visit: No Status: Acute Assessment and Plan: Continue home medications (7) DVT prophylaxis Current Visit: No Status: Acute Assessment and Plan: SQ Heparin (8) Diabetes Current Visit: No Status: Chronic Assessment and Plan: Diabetes type 2, appears well controlled Accu-Cheks with sliding scale insulin as needed - Time Spent with Patient Total time spent is greater than 50% in coordination of care (as documented) at patient's floor/unit and/or counseling patient: Internal Medicine: Result - Labs CBC & Chem 7: 07/30/18 03:17 07/30/18 03:17 Labs: Short CBC 07/29/18 07/30/18 Range/Units 15:22 03:17 WBC 8.4 7.4 (4.3-11.1) K/mcL Hgb 16.3 16.8 (12.9-16.9) g/dL Hct 47.8 50.1 (37.5-50.1) % Plt Count 137 L 151 (140-400) K/mcL Neutrophils # 6.0 4.7 (1.6-8.9) K/mcL BMP 07/29/18 07/30/18 15:22 03:17 Sodium 136 135 L Potassium 3.6 3.5 Chloride 102 102 Carbon Dioxide 25 27 BUN 43 H 39 H Creatinine 1.32 H 1.28 Glucose 126 H 123 H Calcium 9.3 9.6 Cardiac Enzymes 07/29/18 07/29/18 07/30/18 Range/Units 15:22 21:02 03:17 Troponin I 0.04 H* 0.04 H* 0.04 H* (< 0.04) ng/mL Liver Function 07/29/18 Range/Units 15:22 Total Bilirubin 0.9 (0.3-1.0) mg/dL Direct Bilirubin 0.2 (0.0-0.2) mg/dL AST 44 H (13-39) Units/L ALT 44 (7-52) Units/L Alkaline Phosphatase 60 (34-104) Units/L Albumin 4.4 (3.5-5.7) g/dL Urine 07/29/18 Range/Units 18:15 Urine Color Yellow (Yellow) Urine Clarity Clear (Clear) Urine pH 6.0 (5.0-8.0) pH Units Ur Specific [place] 1.024 (1.010-1.025) Urine Protein 30 H (Neg-Trace) mg/dL Urine Glucose (UA) Normal (Normal) mg/dL - ABG Interpretation ABG results: PT/INR, D-dimer PT 12.4 Seconds (9.4-12.1) H 07/30/18 03:17 406 ng/mLFEU (0-500) 07/29/18 18:23 - Impressions Impressions Chest X-Ray 07/29/18 15:22 IMPRESSION: 1. Unchanged enlargement of the cardiomediastinal silhouette. Trace bilateral pleural effusions with mild prominence of interstitial lung markings. Consider possibility of pulmonary venous congestion. 2. No focal consolidation, or pneumothorax. D/ / 07/29/2018 15:59:42 Tommy Maharaj MD / pretty Interpreting Provider: Tommy Maharaj MD Abdomen/Pelvis CT 07/29/18 18:51 impression on the floor of the urinary bladder. Calcifications particularly within the right lobe of the prostate. Partial distention of the urinary bladder with mild bladder wall thickening anteriorly, likely due to incomplete distention. Peritoneum/Retroperitoneum: The abdominal aorta is normal in caliber with moderate calcified atherosclerotic plaque in the aorta and iliac circulation. No significant retroperitoneal adenopathy or free fluid. Bones/Soft Tissues: No acute osseous or soft tissue abnormality. Small fat containing inguinal hernias bilaterally. IMPRESSION: 1. Small persistent right pleural effusion with mild dependent right basilar atelectasis, overall improved compared to the previous study. 2. Previous median sternotomy with atherosclerotic calcification in the coronary circulation. 3. A 6 mm noncalcified left lower lobe pulmonary nodule. This demonstrates long-term stability dating back to CT of the abdomen 03/30/2013 with no follow-up imaging indicated. 4. No acute findings within the abdomen or pelvis. 5. Moderate prostatomegaly. 6. Previous cholecystectomy. RECOMMENDATIONS: 1 D/ / 07/29/2018 20:28:56 Pelon Bermudez MD / pretty Interpreting Provider: Pelon Bermudez MD Chest CT 07/29/18 18:51 impression on the floor of the urinary bladder. Calcifications particularly within the right lobe of the prostate. Partial distention of the urinary bladder with mild bladder wall thickening anteriorly, likely due to incomplete distention. Peritoneum/Retroperitoneum: The abdominal aorta is normal in caliber with moderate calcified atherosclerotic plaque in the aorta and iliac circulation. No significant retroperitoneal adenopathy or free fluid. Bones/Soft Tissues: No acute osseous or soft tissue abnormality. Small fat containing inguinal hernias bilaterally. IMPRESSION: 1. Small persistent right pleural effusion with mild dependent right basilar atelectasis, overall improved compared to the previous study. 2. Previous median sternotomy with atherosclerotic calcification in the coronary circulation. 3. A 6 mm noncalcified left lower lobe pulmonary nodule. This demonstrates long-term stability dating back to CT of the abdomen 03/30/2013 with no follow-up imaging indicated. 4. No acute findings within the abdomen or pelvis. 5. Moderate prostatomegaly. 6. Previous cholecystectomy. RECOMMENDATIONS: 1 D/ / 07/29/2018 20:28:56 Pelon Bermudez MD / pretty Interpreting Provider: Pelon Bermudez MD Consult Discharge Plan - Plan Referrals: Lance Cronin MD [Primary Care Provider] - (Appointment has been requested. Our offices will call with an appointment time and date) <Jimy Hansen - Last Filed: 07/30/18 15:29> Hospitalist Progress Note - Encounter Date of Encounter: 07/30/18 - Exam Vitals: Temp Pulse Resp BP Pulse Ox 97.4 F L 64 16 91/54 96 07/30/18 11:45 07/30/18 11:45 07/30/18 11:45 07/30/18 11:45 07/30/18 11:45 - Assessment and Plan (1) Norovirus Current Visit: Yes Status: Acute (2) Chest pain Current Visit: Yes Status: Acute (3) CAD (coronary artery disease) Current Visit: No Status: Chronic (4) DVT prophylaxis Current Visit: No Status: Acute (5) Abdominal pain Current Visit: Yes Status: Acute (6) Chronic CHF (congestive heart failure) Current Visit: No Status: Chronic (7) HTN (hypertension) Current Visit: No Status: Acute (8) COPD (chronic obstructive pulmonary disease) Current Visit: No Status: Chronic (9) Diabetes Current Visit: No Status: Chronic - Time Spent with Patient Total time spent is greater than 50% in coordination of care (as documented) at patient's floor/unit and/or counseling patient: Internal Medicine: Result - Labs CBC & Chem 7: 07/30/18 03:17 07/30/18 03:17 Labs: Short CBC 07/29/18 07/30/18 Range/Units 15:22 03:17 WBC 8.4 7.4 (4.3-11.1) K/mcL Hgb 16.3 16.8 (12.9-16.9) g/dL Hct 47.8 50.1 (37.5-50.1) % Plt Count 137 L 151 (140-400) K/mcL Neutrophils # 6.0 4.7 (1.6-8.9) K/mcL BMP 07/29/18 07/30/18 15:22 03:17 Sodium 136 135 L Potassium 3.6 3.5 Chloride 102 102 Carbon Dioxide 25 27 BUN 43 H 39 H Creatinine 1.32 H 1.28 Glucose 126 H 123 H Calcium 9.3 9.6 Cardiac Enzymes 07/29/18 07/29/18 07/30/18 Range/Units 15:22 21:02 03:17 Troponin I 0.04 H* 0.04 H* 0.04 H* (< 0.04) ng/mL Liver Function 07/29/18 Range/Units 15:22 Total Bilirubin 0.9 (0.3-1.0) mg/dL Direct Bilirubin 0.2 (0.0-0.2) mg/dL AST 44 H (13-39) Units/L ALT 44 (7-52) Units/L Alkaline Phosphatase 60 (34-104) Units/L Albumin 4.4 (3.5-5.7) g/dL Urine 07/29/18 Range/Units 18:15 Urine Color Yellow (Yellow) Urine Clarity Clear (Clear) Urine pH 6.0 (5.0-8.0) pH Units Ur Specific [place] 1.024 (1.010-1.025) Urine Protein 30 H (Neg-Trace) mg/dL Urine Glucose (UA) Normal (Normal) mg/dL - ABG Interpretation ABG results: PT/INR, D-dimer PT 12.4 Seconds (9.4-12.1) H 07/30/18 03:17 406 ng/mLFEU (0-500) 07/29/18 18:23 - Impressions Impressions Chest X-Ray 07/29/18 15:22 IMPRESSION: 1. Unchanged enlargement of the cardiomediastinal silhouette. Trace bilateral pleural effusions with mild prominence of interstitial lung markings. Consider possibility of pulmonary venous congestion. 2. No focal consolidation, or pneumothorax. D/ / 07/29/2018 15:59:42 Tommy Maharaj MD / pretty Interpreting Provider: Tommy Maharaj MD Abdomen/Pelvis CT 07/29/18 18:51 impression on the floor of the urinary bladder. Calcifications particularly within the right lobe of the prostate. Partial distention of the urinary bladder with mild bladder wall thickening anteriorly, likely due to incomplete distention. Peritoneum/Retroperitoneum: The abdominal aorta is normal in caliber with moderate calcified atherosclerotic plaque in the aorta and iliac circulation. No significant retroperitoneal adenopathy or free fluid. Bones/Soft Tissues: No acute osseous or soft tissue abnormality. Small fat containing inguinal hernias bilaterally. IMPRESSION: 1. Small persistent right pleural effusion with mild dependent right basilar atelectasis, overall improved compared to the previous study. 2. Previous median sternotomy with atherosclerotic calcification in the coronary circulation. 3. A 6 mm noncalcified left lower lobe pulmonary nodule. This demonstrates long-term stability dating back to CT of the abdomen 03/30/2013 with no follow-up imaging indicated. 4. No acute findings within the abdomen or pelvis. 5. Moderate prostatomegaly. 6. Previous cholecystectomy. RECOMMENDATIONS: 1 D/ / 07/29/2018 20:28:56 Pelon Bermudez MD / pretty Interpreting Provider: Pelon Bermudez MD Chest CT 07/29/18 18:51 impression on the floor of the urinary bladder. Calcifications particularly within the right lobe of the prostate. Partial distention of the urinary bladder with mild bladder wall thickening anteriorly, likely due to incomplete distention. Peritoneum/Retroperitoneum: The abdominal aorta is normal in caliber with moderate calcified atherosclerotic plaque in the aorta and iliac circulation. No significant retroperitoneal adenopathy or free fluid. Bones/Soft Tissues: No acute osseous or soft tissue abnormality. Small fat containing inguinal hernias bilaterally. IMPRESSION: 1. Small persistent right pleural effusion with mild dependent right basilar atelectasis, overall improved compared to the previous study. 2. Previous median sternotomy with atherosclerotic calcification in the coronary circulation. 3. A 6 mm noncalcified left lower lobe pulmonary nodule. This demonstrates long-term stability dating back to CT of the abdomen 03/30/2013 with no follow-up imaging indicated. 4. No acute findings within the abdomen or pelvis. 5. Moderate prostatomegaly. 6. Previous cholecystectomy. RECOMMENDATIONS: 1 D/ / 07/29/2018 20:28:56 Pelon Bermudez MD / pretty Interpreting Provider: Pelon Bermudez MD Echocardiogram Limited Views 07/30/18 18:32 Impressions: LVEF 35-40%. Normal LV chamber size. Segmental left ventricular systolic dysfunction similar to prior reports. Atypical septal motion consistent with post-operative status. Left Ventricular Wall Motion: Rest Echo Findings The mid inferior and mid inferior septal mena were hypokinetic. The basal inferior and basal inferior septal mena were akinetic. All other wall segments showed normal motion. Findings: Study Quality * Technically sub-optimal due to poor echocardiographic windows. ECG Findings * Paced rhythm. Left Ventricle * LVEF 35-40%. * Normal LV chamber size. * Segmental left ventricular systolic dysfunction similar to prior reports. * Atypical septal motion consistent with post-operative status. Pericardium * The pericardium appears normal. Device lead * A device lead was visualized in the right atrium and right ventricle. - Attending Attestation I examined this patient and my medical decision-making was reviewed with the Resident Physician on 07/30/18. I agree with the documented findings, disposition and treatment plan as described except to the extent set forth below. Mr Pizarro is currently in observation for chest and abdominal pain. He remains moderate to high risk due to potential for worsening clinical status. Mr Pizarro was up having diarrhea last night. Has been found to have norovirus. Still with some discomfort in his abdomen. No fever or chills. Troponin static. Exam alert Comfortable Mucus membranes dry Heart not tachy No wheeze Abd with some discomfort No edema I/P 1. Acute norovirus - supportive care 2. Abd pain due to above 3. CAD Further diagnoses and plan as above. As patient is now positive for norovirus and will be hospitalized greater than 2 midnights will make inpatient status. 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 t ransplanted heart: [place] heart Associated angina: with stable angina Qualified Code(s): I25.708 - Atherosclerosis of coronary artery bypass graft(s), unspecified, with other forms of angina pectoris (6) HTN (hypertension) Qualifiers: Hypertension type: essential hypertension Qualified Code(s): I10 - Essential (primary) hypertension (8) Diabetes Qualifiers: Diabetes mellitus type: type 2 Diabetes mellitus group home insulin use: without terminal press operator use Diabetes mellitus complication status: with kidney complications Diabetes mellitus complication detail: with chronic kidney disease Chronic kidney disease stage: stage 2 (mild) Qualified Code(s): E11.22 - Type 2 diabetes mellitus with diabetic chronic kidney disease; N18.2 - Chronic kidney disease, stage 2 (mild) <Jimy Hansen - Last Filed: 07/30/18 15:29> (2) Chest pain Qualifiers: Chest pain type: precordial pain Qualified Code(s): R07.2 - Precordial pain (3) CAD (coronary artery disease) Qualifiers: Coronary Disease-Associated Artery/Lesion type: bypass graft [place] vs. transplanted heart: [place] heart Associated angina: with stable angina Qualified Code(s): I25.708 - Atherosclerosis of coronary artery bypass graft(s), unspecified, with other forms of angina pectoris (5) Abdominal pain Qualifiers: Abdominal location: epigastric Qualified Code(s): R10.13 - Epigastric pain (6) Chronic CHF (congestive heart failure) Qualifiers: Heart failure type: systolic Qualified Code(s): I50.22 - Chronic systolic (congestive) heart failure (7) HTN (hypertension) Qualifiers: Hypertension type: essential hypertension Qualified Code(s): I10 - Essential (primary) hypertension (8) COPD (chronic obstructive pulmonary disease) Qualifiers: COPD type: emphysema Emphysema type: unspecified Qualified Code(s): J43.9 - Emphysema, unspecified (9) Diabetes Qualifiers: Diabetes mellitus type: type 2 Diabetes mellitus terminal press operator insulin use: without group home use Diabetes mellitus complication status: with kidney complications Diabetes mellitus complication detail: with chronic kidney disease Chronic kidney disease stage: stage 2 (mild) Qualified Code(s): E11.22 - Type 2 diabetes mellitus with diabetic chronic kidney disease; N18.2 - Chronic kidney disease, stage 2 (mild)
[2018-07-30 13:04] LABS: Estimated Average Glucose 163 mg/dl; Hemoglobin A1C 7.3 %
[2018-07-30] MEDS: Insulin DETEMIR 100 UNIT/ML X5UNITS SQ SCH (21:27)
[2018-07-31] MEDS: Insulin LISPRO 300 UNITS/3 ML VIAL SQ SCH ×4 (00:50→17:40)
[2018-07-31] MEDS: Acetaminophen 325 MG TABLET PO PRN (02:11)
[2018-07-31 03:12] LABS: BUN/Creatinine Ratio 32 (6-26); Blood Urea Nitrogen 41 mg/dL (8-23); Calcium 9.1 mg/dL (8.6-10.3); Carbon Dioxide 22 mEq/L (23-29); Chloride 104 mEq/L (98-107); Glucose 88 mg/dL (70-105); Osmolality,Calculated 288 (280-300); Potassium 3.4 mEq/L (3.5-5.1); Sodium 134 mEq/L (136-145); eGFR For Non-African Americans 53 (> 60)
[2018-07-31] MEDS: *HR* Heparin 5,000 UNIT/ML VIAL SQ SCH ×3 (05:54→21:23)
[2018-07-31] MEDS: Furosemide 20 MG TABLET PO SCH ×2 (07:27→17:39)
[2018-07-31] MEDS: Isosorbide MONOnitrate (24 HR) 60 MG TAB.ER.24H PO SCH (07:28)
[2018-07-31] MEDS: *HR* Ticagrelor 90 MG TABLET PO SCH ×2 (07:28→19:55)
[2018-07-31] MEDS: Aspirin Enteric Coated 81 MG Tablet PO SCH (07:28)
--- NOTE | 2018-07-31 09:59 | Internal Med Progress Note ---
<Jimy Hansen - Last Filed: 07/31/18 15:03> Hospitalist Progress Note - Encounter Date of Encounter: 07/31/18 - Exam Vitals: Temp Pulse Resp BP Pulse Ox 97.6 F 83 16 102/64 98 07/31/18 11:22 07/31/18 11:22 07/31/18 11:22 07/31/18 11:22 07/31/18 11:22 - Assessment and Plan (1) Norovirus Current Visit: Yes Status: Acute (2) Chest pain Current Visit: Yes Status: Acute (3) CAD (coronary artery disease) Current Visit: No Status: Ruled-out (4) DVT prophylaxis Current Visit: No Status: Acute (5) Abdominal pain Current Visit: Yes Status: Acute (6) Chronic CHF (congestive heart failure) Current Visit: No Status: Chronic (7) HTN (hypertension) Current Visit: No Status: Acute (8) COPD (chronic obstructive pulmonary disease) Current Visit: No Status: Chronic (9) Diabetes Current Visit: No Status: Chronic (10) Hypokalemia Current Visit: Yes Status: Acute Assessment and Plan: New today. Replace - Time Spent with Patient Total time spent is greater than 50% in coordination of care (as documented) at patient's floor/unit and/or counseling patient: Internal Medicine: Result - Labs CBC & Chem 7: 07/30/18 03:17 07/31/18 01:39 Labs: BMP 07/31/18 01:39 Sodium 134 L Potassium 3.4 L Chloride 104 Carbon Dioxide 22 L BUN 41 H Creatinine 1.30 Glucose 88 Calcium 9.1 - ABG Interpretation ABG results: PT/INR, D-dimer PT 12.4 Seconds (9.4-12.1) H 07/30/18 03:17 406 ng/mLFEU (0-500) 07/29/18 18:23 - Impressions Impressions Abdomen/Pelvis CT 07/29/18 18:51 impression on the floor of the urinary bladder. Calcifications particularly within the right lobe of the prostate. Partial distention of the urinary bladder with mild bladder wall thickening anteriorly, likely due to incomplete distention. Peritoneum/Retroperitoneum: The abdominal aorta is normal in caliber with moderate calcified atherosclerotic plaque in the aorta and iliac circulation. No significant retroperitoneal adenopathy or free fluid. Bones/Soft Tissues: No acute osseous or soft tissue abnormality. Small fat containing inguinal hernias bilaterally. IMPRESSION: 1. Small persistent right pleural effusion with mild dependent right basilar atelectasis, overall improved compared to the previous study. 2. Previous median sternotomy with atherosclerotic calcification in the coronary circulation. 3. A 6 mm noncalcified left lower lobe pulmonary nodule. This demonstrates long-term stability dating back to CT of the abdomen 03/30/2013 with no follow-up imaging indicated. 4. No acute findings within the abdomen or pelvis. 5. Moderate prostatomegaly. 6. Previous cholecystectomy. RECOMMENDATIONS: 1 D/ / 07/29/2018 20:28:56 Pelon Bermudez MD / pretty Interpreting Provider: ePlon Bermudez MD Chest CT 07/29/18 18:51 impression on the floor of the urinary bladder. Calcifications particularly within the right lobe of the prostate. Partial distention of the urinary bladder with mild bladder wall thickening anteriorly, likely due to incomplete distention. Peritoneum/Retroperitoneum: The abdominal aorta is normal in caliber with moderate calcified atherosclerotic plaque in the aorta and iliac circulation. No significant retroperitoneal adenopathy or free fluid. Bones/Soft Tissues: No acute osseous or soft tissue abnormality. Small fat containing inguinal hernias bilaterally. IMPRESSION: 1. Small persistent right pleural effusion with mild dependent right basilar atelectasis, overall improved compared to the previous study. 2. Previous median sternotomy with atherosclerotic calcification in the coronary circulation. 3. A 6 mm noncalcified left lower lobe pulmonary nodule. This demonstrates long-term stability dating back to CT of the abdomen 03/30/2013 with no follow-up imaging indicated. 4. No acute findings within the abdomen or pelvis. 5. Moderate prostatomegaly. 6. Previous cholecystectomy. RECOMMENDATIONS: 1 D/ / 07/29/2018 20:28:56 Pelon Bermudez MD / pretty Interpreting Provider: Pelon Bermudez MD Consult Discharge Plan - Plan Referrals: Lance Cronin MD [Primary Care Provider] - (Appointment has been requested. Our offices will call with an appointment time and date) - Attending Attestation I examined this patient and my medical decision-making was reviewed with the Resident Physician on 07/31/18. I agree with the documented findings, disposition and treatment plan as described except to the extent set forth below. Mr Pizarro is currently admitted for acute norovirus infection and chest pain. He remains moderate to high risk due to potential for worsening clinical status. Mr Pizarro is still feeling poorly. He is still having some diarrhea. Feels thirsty. Still with some chest pain. No fever or chills. Some abdominal pain but seems better. Exam alert comfortable on side in bed Mucus membranes dry Heart not tachy No wheeze abd tender epigastric area No edema I/P 1. Acute norovirus infection - supportive care 2. hypokalemia - replace 3. CAD - appreciate card input 4. Chronic systolic heart failure - cautious use of fluids. Further diagnoses and plan as above. <Yvonne Nunez - Last Filed: 07/31/18 21:11> Hospitalist Progress Note - Encounter Date of Encounter: 07/31/18 Time of Encounter: 09:59 - Subjective Interval History: Seen and examined at bedside. He is resting in bed, appears in no acute distress. Patient reports he continues to have loose bowel movements and abdominal pain. Admits to nausea, but able to tolerate PO ok. Reports 1 episode of non-bilious, non-bloody emesis. Denies chest pain, dyspnea, wheezing, fevers, chills. - Exam Vitals: Temp Pulse Resp BP Pulse Ox 97.4 F L 73 18 123/74 97 07/31/18 07:47 07/31/18 07:47 07/31/18 07:47 07/31/18 07:47 07/31/18 07:50 Exam: General: No acute distress, vital signs noted HEENT: normocephalic, head atraumatic, EOMI, PERRL, sclera anicteric, moist mucus membranes Neck: Supple, no lymphadenopathy Cardio: RRR, no murmurs, +S1/S2 Pulm: CTAB, no wheezing, rhonchi, or rales. Normal respiratory effort. Abdomen: soft, mildly tender to palpation, BS+; no rebound, rigidity, guarding, or distention Extremities: No LE edema, no cyanosis or clubbing, non-tender Neuro: AAOx3, no focal deficits, CN II-XII grossly intact, moves 4 extremities spontaneously Skin: clean, dry, intact, no visible rashes Psych: Appropriate mood and affect. Answers questions appropriately. Cooperative with exam - Assessment and Plan (1) Abdominal pain Current Visit: Yes Status: Resolved Assessment and Plan: Improved Epigastric abdominal pain associated with diarrhea GI panel positive for norovirus Tolerating PO intake ok, no IV fluids at this time - Continue to monitor for signs of volume depletion - Supportive care - Zofran for nausea - Monitor and replete electrolytes PRN if frequent, loose stools continue (2) Norovirus Current Visit: Yes Status: Acute Assessment and Plan: As above Continue supportive care (3) Chest pain Current Visit: Yes Status: Acute Assessment and Plan: Improved Substernal chest pain unrelieved by nitro or rest. Atypical chest pain, crushing in nature. Worse with deep inspiration. Suspect secondary to abdominal pathology, doubt ACS History of CAD with previous CABG CXR shows enlargement of cardiomediastinal silhouette with pleural effusions bilaterally Elevated, adynamic troponins at 0.04 EKG similar to previous, but difficult to interpret d/t BiV pacing Last known LVEF 45% in 02/05 ---> repeat echo this visit shows LVEF 35-40% - Consult cardiology d/t decreased LVEF, recommendations appreciated - Will continue court recording monitor - Workup further if chest pain returns (4) Chronic systolic heart failure Current Visit: Yes Status: Chronic Assessment and Plan: As above (5) CAD (coronary artery disease) Current Visit: No Status: Chronic Assessment and Plan: Continue home birilinta, aspirin, lisinopril, carvedilol, Lipitor (6) DM2 (diabetes mellitus, type 2) Current Visit: No Status: Chronic Assessment and Plan: Appears well controlled Accu-Cheks with sliding scale insulin as needed (7) HTN (hypertension) Current Visit: No Status: Acute Assessment and Plan: Appears well controlled Continue home meds (8) COPD (chronic obstructive pulmonary disease) Current Visit: No Status: Chronic Assessment and Plan: Not in acute exacerbation DVT Prophylaxis: SubQ Heparin - Time Spent with Patient Total time spent is greater than 50% in coordination of care (as documented) at patient's floor/unit and/or counseling patient: less than 15 minutes Plan of Care Discussed with: patient Internal Medicine: Result - Labs CBC & Chem 7: 07/30/18 03:17 07/31/18 01:39 Labs: BMP 07/31/18 01:39 Sodium 134 L Potassium 3.4 L Chloride 104 Carbon Dioxide 22 L BUN 41 H Creatinine 1.30 Glucose 88 Calcium 9.1 - ABG Interpretation ABG results: PT/INR, D-dimer PT 12.4 Seconds (9.4-12.1) H 07/30/18 03:17 406 ng/mLFEU (0-500) 07/29/18 18:23 - Impressions Impressions Abdomen/Pelvis CT 07/29/18 18:51 impression on the floor of the urinary bladder. Calcifications particularly within the right lobe of the prostate. Partial distention of the urinary bladder with mild bladder wall thickening anteriorly, likely due to incomplete distention. Peritoneum/Retroperitoneum: The abdominal aorta is normal in caliber with moderate calcified atherosclerotic plaque in the aorta and iliac circulation. No significant retroperitoneal adenopathy or free fluid. Bones/Soft Tissues: No acute osseous or soft tissue abnormality. Small fat containing inguinal hernias bilaterally. IMPRESSION: 1. Small persistent right pleural effusion with mild dependent right basilar atelectasis, overall improved compared to the previous study. 2. Previous median sternotomy with atherosclerotic calcification in the coronary circulation. 3. A 6 mm noncalcified left lower lobe pulmonary nodule. This demonstrates long-term stability dating back to CT of the abdomen 03/30/2013 with no follow-up imaging indicated. 4. No acute findings within the abdomen or pelvis. 5. Moderate prostatomegaly. 6. Previous cholecystectomy. RECOMMENDATIONS: 1 D/ / 07/29/2018 20:28:56 Pelon Bermudez MD / pretty Interpreting Provider: Pelon Bermudez MD Chest CT 07/29/18 18:51 impression on the floor of the urinary bladder. Calcifications particularly within the right lobe of the prostate. Partial distention of the urinary bladder with mild bladder wall thickening anteriorly, likely due to incomplete distention. Peritoneum/Retroperitoneum: The abdominal aorta is normal in caliber with moderate calcified atherosclerotic plaque in the aorta and iliac circulation. No significant retroperitoneal adenopathy or free fluid. Bones/Soft Tissues: No acute osseous or soft tissue abnormality. Small fat containing inguinal hernias bilaterally. IMPRESSION: 1. Small persistent right pleural effusion with mild dependent right basilar atelectasis, overall improved compared to the previous study. 2. Previous median sternotomy with atherosclerotic calcification in the coronary circulation. 3. A 6 mm noncalcified left lower lobe pulmonary nodule. This demonstrates long-term stability dating back to CT of the abdomen 03/30/2013 with no follow-up imaging indicated. 4. No acute findings within the abdomen or pelvis. 5. Moderate prostatomegaly. 6. Previous cholecystectomy. RECOMMENDATIONS: 1 D/ / 07/29/2018 20:28:56 Pelon Bermudez MD / pretty Interpreting Provider: Pelon Bermudez MD Echocardiogram Limited Views 07/30/18 18:32 Impressions: LVEF 35-40%. Normal LV chamber size. Segmental left ventricular systolic dysfunction similar to prior reports. Atypical septal motion consistent with post-operative status. Left Ventricular Wall Motion: Rest Echo Findings The mid inferior and mid inferior septal mena were hypokinetic. The basal inferior and basal inferior septal mena were akinetic. All other wall segments showed normal motion. Findings: Study Quality * Technically sub-optimal due to poor echocardiographic windows. ECG Findings * Paced rhythm. Left Ventricle * LVEF 35-40%. * Normal LV chamber size. * Segmental left ventricular systolic dysfunction similar to prior reports. * Atypical septal motion consistent with post-operative status. Pericardium * The pericardium appears normal. Device lead * A device lead was visualized in the right atrium and right ventricle. <Jimy Hansen A - Last Filed: 07/31/18 15:03> (2) Chest pain Qualifiers: Chest pain type: precordial pain Qualified Code(s): R07.2 - Precordial pain (3) CAD (coronary artery disease) Qualifiers: Coronary Disease-Associated Artery/Lesion type: bypass graft [place] vs. transplanted heart: [place] heart Associated angina: with stable angina Qualified Code(s): I25.708 - Atherosclerosis of coronary artery bypass graft(s), unspecified, with other forms of angina pectoris (5) Abdominal pain Qualifiers: Abdominal location: epigastric Qualified Code(s): R10.13 - Epigastric pain (6) Chronic CHF (congestive heart failure) Qualifiers: Heart failure type: systolic Qualified Code(s): I50.22 - Chronic systolic (congestive) heart failure (7) HTN (hypertension) Qualifiers: Hypertension type: essential hypertension Qualified Code(s): I10 - Essential (primary) hypertension (8) COPD (chronic obstructive pulmonary disease) Qualifiers: COPD type: emphysema Emphysema type: unspecified Qualified Code(s): J43.9 - Emphysema, unspecified (9) Diabetes Qualifiers: Diabetes mellitus type: type 2 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 oil 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 insulin use: without marine oil 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 use Diabetes mellitus complication status: with kidney complications Diabetes mellitus complication detail: with chronic kidney disease Chronic kidney disease stage: stage 2 (mild) Qualified Code(s): E11.22 - Type 2 diabetes mellitus with diabetic chronic kidney disease; N18.2 - Chronic kidney disease, stage 2 (mild) <Yvonne Nunez - Last Filed: 07/31/18 21:11> (1) Abdominal pain Qualifiers: Abdominal location: generalized Qualified Code(s): R10.84 - Generalized abdominal pain (3) Chest pain Qualifiers: Chest pain type: precordial pain Qualified Code(s): R07.2 - Precordial pain (5) CAD (coronary artery disease) Qualifiers: Coronary Disease-Associated Artery/Lesion type: bypass graft [place] vs. transplanted heart: [place] heart Associated angina: with stable angina Qualified Code(s): I25.708 - Atherosclerosis of coronary artery bypass graft(s), unspecified, with other forms of angina pectoris (6) DM2 (diabetes mellitus, type 2) Qualifiers: Diabetes mellitus longterm insulin use: without marine oil 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 use Diabetes mellitus complication status: with circulatory complication Diabetes mellitus complication detail: with other circulatory complications Qualified Code(s): E11.59 - Type 2 diabetes mellitus with other circulatory complications (7) HTN (hypertension) Qualifiers: Hypertension type: essential hypertension Qualified Code(s): I10 - Essential (primary) hypertension (8) COPD (chronic obstructive pulmonary disease) Qualifiers: COPD type: emphysema Emphysema type: unspecified Qualified Code(s): J43.9 - Emphysema, unspecified
[2018-07-31] MEDS: Ondansetron 4 MG/2 ML VIAL IVP PRN ×2 (11:57→17:38)
--- NOTE | 2018-07-31 12:56 | Cardiology Consult Note ---
Date of Encounter: 07/31/18 Time of Encounter: 12:45 Assessment and Plan (1) Atypical chest pain Current Visit: No Status: Acute Presents with atypical chest pain. The pain is reproducible on my exam. Pain with cough. Troponin mildly elevated at 0.04x3 is non-diagnostic in setting of DARLYN. EKG- SR with LVH. Prior cardiac testing: TTE 12/2017: EF 35-40%. Moderate segmental wall motion abnormality. Small pericardial effusion. Stress test 03/2017- Perfusion imaging negative for ischemia. [facility] -EF With [facility] 11/02/16 with 50% left main, 90% proximal LAD, 100% mid LAD, 99% in stent thrombosis of ostial RCA 4 JATINDER were placed, ARROYO to LAD is patent, SVG to OM is patent. Limited TTE this admit shows EF 35-40%. WMA unchanged from prior ARIANA. No further cardiac testing recommended. Recommend optimizing medical management. Continue asa, brilinta, imdur, statin, and bb. Add ranexa. (2) CAD (coronary artery disease) Current Visit: No Status: Chronic H/o CABG in 2002 and [place] with PCI. See plan above. Qualifiers: Coronary Disease-Associated Artery/Lesion type: bypass graft [place] vs. transplanted heart: [place] heart Associated angina: with stable angina Qualified Code(s): I25.708 - Atherosclerosis of coronary artery bypass graft(s), unspecified, with other forms of angina pectoris (3) History of CHF (congestive heart failure) Current Visit: No Status: Chronic History of chronic HFrEF. EF 35-40%. No significant fluid overload on exam. CT with chronic findings. Continue maintenance lasix. Strict I&O and daily weights. Low sodium diet. Continue bb and aceI. (4) Paroxysmal a-fib Current Visit: No Status: Chronic History PAF. Currently NSR with occasional pacing. Pt declined supervisor press room AC. Discussion w patient/family: The assessment and plan as outlined above was discussed with the patient and/or family members who expressed understanding and agreement. All questions were answered. Thank you for involving us in the care of your patient. Please call with any questions. History of Present Illness Consult date: 07/31/18 Requesting physician: Yvonne Nunez Consult reason: chest pain Chief complaint: Constant chest pain for 4 days. History of present illness: Mr. Pizarro is a 77 year old male with past medical history of CAD s/p [place], prior 2V CABG in 2003, PCI to the RCA in 2017, ICMP, PPM, atrial fibrillation not on anticoagulation, HTN, HLD, and non-compliance. He presents with the c/o "severe" constant chest pain for 4 days. His pain increases with cough and deep breaths. His chest is sore to touch. He states his pain is similar to prior TX. Denies NTG SL use. Cardiology consulted for abnormal echo. After further review LVEF is unchanged from previous. Troponin was found to be elevated at 0.04 x3. He is also found to have mild DARLYN on admission. He states that he is compliant with all of his medications. Past Med Surg Social Fam HX - Past Medical History Medical history: asthma, atrial fibrillation, CHF, coronary artery disease, CVA, diabetes, hyperlipidemia, hypertension, myocardial infarction, thyroid disease Additional medical history: very hard of hearing Psychiatric history: anxiety, depression - Past Surgical History Surgical History: angioplasty/stent, cholecystectomy, coronary bypass (CABG), pacemaker/AICD Additional surgical history: stent placement - Social History Smoking Status: Former smoker Smokeless Tobacco Status: No Alcohol use: rarely Drug use: none - Family History Grandfather Family Member Ethnicity: Non- Living Status: Hx Family Cardiac Disorders: Yes Mother Family Member Ethnicity: Non- Living Status: Hx Family Neurologic Disorders: Yes (CVA) Father Adopted: No Family Member Ethnicity: Non- Living Status: Hx Family Cardiac Disorders: No Hx Family Respiratory Disorders: No Hx Family Cancer: Yes (Unknown what type) Hx Family GI Disorders: No Hx Family Endocrine Disorder: No Hx Family Neuromuscular Disorders: No Hx Family Neurologic Disorders: No Hx Family HEENT Disorders: No Hx Family Autoimmune Disorders: No Medications and Allergies Aspirin [Lo-Dose Aspirin EC] 81 mg PO DAILY 08/10/17 [History] Atorvastatin [Lipitor] 40 mg PO QPM 08/10/17 [History] Carvedilol 3.125 mg PO BID 08/10/17 [History] Cinnamon Bark [Cinnamon] 500 mg PO DAILY 08/10/17 [History] Lisinopril 2.5 mg PO DAILY 08/10/17 [History] Nitroglycerin [Nitrostat] 0.4 mg SL Q5M PRN 08/10/17 [History] [place]-3/Dha/Epa/Fish Oil [Fish Oil 1,000 mg Softgel] 1 cap PO DAILY 08/10/17 [History] Potassium Chloride [K-Tab ER] 10 meq PO DAILY 08/10/17 [History] Ticagrelor [Brilinta] 90 mg PO DAILY 08/10/17 [History] Furosemide [Lasix] 20 mg PO BID #60 tablet 11/10/17 [Rx] Acetaminophen [Tylenol] 650 mg PO TID PRN 07/30/18 [History] Isosorbide MONOnitrate (24 HR) [Imdur] 30 mg PO DAILY 07/30/18 [History] Allergy/AdvReac Type Severity Reaction Status Date / Time oxycodone [From Percocet] Allergy Hives Verified 07/30/18 14:48 tramadol Allergy Hives Verified 07/30/18 14:48 All Systems Review: The remainder of the systems were reviewed and are negative Physical Examination Vital Signs, Last 4 Hours Temp Pulse Resp BP Pulse Ox 07/31/18 11:22 97.6 F 83 16 102/64 98 General: Conversant, No Apparent Distress HEENT: Atraumatic, Normocephaly, Mucus Membranes Moist Neck: No JVD, Normal carotid pulses Cardiac: Reg Rate and Rhythm, Normal S1 and S2, No Murmur Lungs: Normal Breath Sounds, No Wheeze, Rales, Rhonchi Neuro: Alert and responsive, No focal deficits noted Abdomen: Soft, Non-Tender Skin: No rashes noted on visualized skin Musculoskeletal: Other (C/o tenderness with palpation) Extremities: No Clubbing, No Cyanosis, No Edema, Normal Pulses Results 07/30/18 03:17 07/31/18 01:39 Lab Results 07/31/18 01:39 Sodium 134 L Potassium 3.4 L Chloride 104 Carbon Dioxide 22 L BUN 41 H Creatinine 1.30 Glucose 88 Calcium 9.1 - Imaging and Cardiology Echo: report reviewed Cardiac cath: report reviewed - EKG Interpretation EKG results cardiology: personally reviewed Consult Discharge Plan - Plan Referrals: Lance Cronin MD [Primary Care Provider] - (Appointment has been requested. Our offices will call with an appointment time and date)
[2018-07-31] MEDS ORDERED: Ketorolac 15 MG/ML VIAL IVP ONE (14:02)
[2018-07-31] MEDS: Ranolazine 500 MG TAB.ER.12H PO SCH ×2 (14:09→19:56)
[2018-07-31] MEDS: Insulin DETEMIR 100 UNIT/ML X5UNITS SQ SCH (21:24)
[2018-08-01] MEDS: Insulin LISPRO 300 UNITS/3 ML VIAL SQ SCH ×3 (00:17→12:07)
[2018-08-01 05:52] LABS: BUN/Creatinine Ratio 32 (6-26); Blood Urea Nitrogen 43 mg/dL (8-23); Calcium 9.3 mg/dL (8.6-10.3); Carbon Dioxide 21 mEq/L (23-29); Chloride 102 mEq/L (98-107); Glucose 98 mg/dL (70-105); Osmolality,Calculated 295 (280-300); Potassium 3.9 mEq/L (3.5-5.1); Sodium 137 mEq/L (136-145); eGFR For Non-African Americans 51 (> 60)
[2018-08-01] MEDS: *HR* Heparin 5,000 UNIT/ML VIAL SQ SCH ×2 (06:19→13:23)
--- NOTE | 2018-08-01 07:20 | Internal Med Progress Note ---
Hospitalist Progress Note - Encounter Date of Encounter: 08/01/18 - Exam Vitals: Temp Pulse Resp BP Pulse Ox 97.3 F L 62 14 117/68 97 08/01/18 06:12 08/01/18 06:12 08/01/18 06:12 08/01/18 06:12 08/01/18 06:12 - Assessment and Plan (1) Abdominal pain Current Visit: Yes Status: Resolved (2) Norovirus Current Visit: Yes Status: Acute (3) Chest pain Current Visit: Yes Status: Acute (4) Chronic systolic heart failure Current Visit: Yes Status: Chronic (5) CAD (coronary artery disease) Current Visit: No Status: Chronic (6) DM2 (diabetes mellitus, type 2) Current Visit: No Status: Chronic (7) HTN (hypertension) Current Visit: No Status: Acute (8) COPD (chronic obstructive pulmonary disease) Current Visit: No Status: Chronic - Time Spent with Patient Total time spent is greater than 50% in coordination of care (as documented) at patient's floor/unit and/or counseling patient: Internal Medicine: Result - Labs CBC & Chem 7: 07/30/18 03:17 08/01/18 04:25 Labs: BMP 08/01/18 04:25 Sodium 137 Potassium 3.9 Chloride 102 Carbon Dioxide 21 L BUN 43 H Creatinine 1.36 H Glucose 98 Calcium 9.3 - ABG Interpretation ABG results: PT/INR, D-dimer PT 12.4 Seconds (9.4-12.1) H 07/30/18 03:17 406 ng/mLFEU (0-500) 07/29/18 18:23 Consult Discharge Plan - Plan Referrals: Lance Cronin MD [Primary Care Provider] - (Appointment has been requested. Our offices will call with an appointment time and date) (1) Abdominal pain Qualifiers: Abdominal location: generalized Qualified Code(s): R10.84 - Generalized abdominal pain (3) Chest pain Qualifiers: Chest pain type: precordial pain Qualified Code(s): R07.2 - Precordial pain (5) CAD (coronary artery disease) Qualifiers: Coronary Disease-Associated Artery/Lesion type: bypass graft [place] vs. transplanted heart: [place] heart Associated angina: with stable angina Qualified Code(s): I25.708 - Atherosclerosis of coronary artery bypass graft(s), unspecified, with other forms of angina pectoris (6) DM2 (diabetes mellitus, type 2) Qualifiers: Diabetes mellitus assisted insulin use: without joint terminal attack controller use Diabetes mellitus complication status: with circulatory complication Diabetes mellitus complication detail: with other circulatory complications Qualified Code(s): E11.59 - Type 2 diabetes mellitus with other circulatory complications (7) HTN (hypertension) Qualifiers: Hypertension type: essential hypertension Qualified Code(s): I10 - Essential (primary) hypertension (8) COPD (chronic obstructive pulmonary disease) Qualifiers: COPD type: emphysema Emphysema type: unspecified Qualified Code(s): J43.9 - Emphysema, unspecified
[2018-08-01] MEDS: Ranolazine 500 MG TAB.ER.12H PO SCH (08:33)
[2018-08-01] MEDS: Aspirin Enteric Coated 81 MG Tablet PO SCH (08:33)
[2018-08-01] MEDS: Isosorbide MONOnitrate (24 HR) 60 MG TAB.ER.24H PO SCH (08:33)
[2018-08-01] MEDS: Furosemide 20 MG TABLET PO SCH (08:34)
[2018-08-01] MEDS: *HR* Ticagrelor 90 MG TABLET PO SCH (08:34)
[2018-08-01 12:01] VITALS: BP 110/65
--- NOTE | 2018-08-01 14:11 | Discharge Summary ---
<Jimy Hansen - Last Filed: 08/01/18 16:15> Date of Encounter: 08/01/18 - Discharge Diagnosis (1) Norovirus Priority: Primary Status: Acute (2) Chest pain Priority: Secondary Status: Acute Qualifiers: Chest pain type: precordial pain Qualified Code(s): R07.2 - Precordial pain (3) CAD (coronary artery disease) Priority: Secondary Status: Chronic Qualifiers: Coronary Disease-Associated Artery/Lesion type: bypass graft [place] vs. transplanted heart: [place] heart Associated angina: with stable angina Qualified Code(s): I25.708 - Atherosclerosis of coronary artery bypass graft(s), unspecified, with other forms of angina pectoris (4) DVT prophylaxis Priority: Secondary Status: Acute (5) Abdominal pain Priority: Secondary Status: Acute Qualifiers: Abdominal location: epigastric Qualified Code(s): R10.13 - Epigastric pain (6) Chronic CHF (congestive heart failure) Priority: Secondary Status: Chronic Qualifiers: Heart failure type: systolic Qualified Code(s): I50.22 - Chronic systolic (congestive) heart failure (7) HTN (hypertension) Priority: Secondary Status: Acute Qualifiers: Hypertension type: essential hypertension Qualified Code(s): I10 - Essential (primary) hypertension (8) COPD (chronic obstructive pulmonary disease) Priority: Secondary Status: Chronic Qualifiers: COPD type: emphysema Emphysema type: unspecified Qualified Code(s): J43.9 - Emphysema, unspecified (9) Diabetes Priority: Secondary Status: Chronic Qualifiers: Diabetes mellitus type: type 2 Diabetes mellitus jail insulin use: without jail use Diabetes mellitus complication status: with kidney complications Diabetes mellitus complication detail: with chronic kidney disease Chronic kidney disease stage: stage 2 (mild) Qualified Code(s): E11.22 - Type 2 diabetes mellitus with diabetic chronic kidney disease; N18.2 - Chronic kidney disease, stage 2 (mild) (10) Hypokalemia Priority: Secondary Status: Resolved Hospital course: Mr. Pizarro is a 77 year old male - Time Spent with Patient Total time spent providing and/or coordinating discharge services: 35min - Discharge Medications Prescriptions: New Ticagrelor [Brilinta] 90 mg PO BID #60 tablet Isosorbide MONOnitrate (24 HR) [Imdur] 120 mg PO DAILY #60 tab.er.24h Ranolazine [Ranexa] 500 mg PO BID #60 tab.er.12h Continued Atorvastatin [Lipitor] 40 mg PO QPM Potassium Chloride [K-Tab ER] 10 meq PO DAILY Carvedilol 3.125 mg PO BID Nitroglycerin [Nitrostat] 0.4 mg SL Q5M PRN PRN Reason: Chest Pain Lisinopril 2.5 mg PO DAILY [place]-3/Dha/Epa/Fish Oil [Fish Oil 1,000 mg Softgel] 1 cap PO DAILY Cinnamon Bark [Cinnamon] 500 mg PO DAILY Aspirin [Lo-Dose Aspirin EC] 81 mg PO DAILY Furosemide [Lasix] 20 mg PO BID #60 tablet Acetaminophen [Tylenol] 650 mg PO TID PRN PRN Reason: Pain Discontinued Ticagrelor [Brilinta] 90 mg PO DAILY Isosorbide MONOnitrate (24 HR) [Imdur] 30 mg PO DAILY Home Medications: Aspirin [Lo-Dose Aspirin EC] 81 mg PO DAILY 08/10/17 [History] Atorvastatin [Lipitor] 40 mg PO QPM 08/10/17 [History] Carvedilol 3.125 mg PO BID 08/10/17 [History] Cinnamon Bark [Cinnamon] 500 mg PO DAILY 08/10/17 [History] Lisinopril 2.5 mg PO DAILY 08/10/17 [History] Nitroglycerin [Nitrostat] 0.4 mg SL Q5M PRN 08/10/17 [History] [place]-3/Dha/Epa/Fish Oil [Fish Oil 1,000 mg Softgel] 1 cap PO DAILY 08/10/17 [History] Potassium Chloride [K-Tab ER] 10 meq PO DAILY 08/10/17 [History] Furosemide [Lasix] 20 mg PO BID #60 tablet 11/10/17 [Rx] Acetaminophen [Tylenol] 650 mg PO TID PRN 07/30/18 [History] Isosorbide MONOnitrate (24 HR) [Imdur] 120 mg PO DAILY #60 tab.er.24h 08/01/18 [Rx] Ranolazine [Ranexa] 500 mg PO BID #60 tab.er.12h 08/01/18 [Rx] Ticagrelor [Brilinta] 90 mg PO BID #60 tablet 08/01/18 [Rx] Allergies/Adverse Reactions: Allergy/AdvReac Type Severity Reaction Status Date / Time oxycodone [From Percocet] Allergy Hives Verified 07/30/18 14:48 tramadol Allergy Hives Verified 07/30/18 14:48 Date of admission: 07/30/18 18:48 Primary care physician: Lance Cronin MD Consults: 07/31/18 11:42 Consult to Cardiology [CONS] Routine Comment: Consulting Provider: [facility] Reason for Consult: LVEF decreased 10% since January 2018 Call Completed: No - Constitutional Vitals: Temp Pulse Resp BP Pulse Ox 98.0 F 69 18 110/65 96 08/01/18 11:59 08/01/18 11:59 08/01/18 11:59 08/01/18 11:59 08/01/18 11:59 - Patient Status Disposition: Home Health Service Condition: Fair - Discharge Instructions Instructions: Isosorbide Mononitrate (By mouth), Ranolazine (By mouth), Ticagrelor (By mouth), Gastroenteritis (DC) Follow Up With: Lance Cronin MD [Primary Care Provider] - (Appointment has been requested. Our offices will call with an appointment time and date) Seth Herrera DO [Partnered Physician] - (We have requested a follow up appointment with [facility]. The office will call you at home with an appointment date and time. ) - Attending Attestation I examined this patient and my medical decision-making was reviewed with the Resident Physician on 08/01/18. I agree with the documented findings, disposition and treatment plan as described except to the extent set forth below. Mr Pizarro has been admitted for abdominal and chest pain and found to have acute Norovirus infection. His diarrhea has been improving. His fluid status is good as well. His potassium was replaced. At this time he is approaching baseline and ready for discharge home. Exam alert comfortable Mucus membranes dry Heart not tachy No wheeze Abd soft Plan D/C home today with [facility]. <Yvonne Nunez - Last Filed: 08/01/18 22:32> - NOTES TO OUTPATIENT PROVIDER Notes to Outpatient Provider: Admitted with abdominal pain/chest pain. Positive for norovirus. Had supportive care and improved. Cardiology saw and recommend medical management. Ranexa and kareem added. Date of Encounter: 08/01/18 Time of Encounter: 14:11 - Discharge Diagnosis (1) Abdominal pain Priority: Primary Status: Resolved Qualifiers: Abdominal location: generalized Qualified Code(s): R10.84 - Generalized abdominal pain (2) Norovirus Priority: Primary Status: Acute (3) Chest pain Priority: Secondary Status: Acute Qualifiers: Chest pain type: precordial pain Qualified Code(s): R07.2 - Precordial pain (4) Chronic systolic heart failure Priority: Secondary Status: Chronic (5) CAD (coronary artery disease) Priority: Secondary Status: Chronic Qualifiers: Coronary Disease-Associated Artery/Lesion type: bypass graft [place] vs. transplanted heart: [place] heart Associated angina: with stable angina Qualified Code(s): I25.708 - Atherosclerosis of coronary artery bypass graft(s), unspecified, with other forms of angina pectoris (6) DM2 (diabetes mellitus, type 2) Priority: Secondary Status: Chronic Qualifiers: Diabetes mellitus jail insulin use: without termite inspector use Diabetes mellitus complication status: with circulatory complication Diabetes mellitus complication detail: with other circulatory complications Qualified Code(s): E11.59 - Type 2 diabetes mellitus with other circulatory complications (7) HTN (hypertension) Priority: Secondary Status: Acute Qualifiers: Hypertension type: essential hypertension Qualified Code(s): I10 - Essential (primary) hypertension (8) COPD (chronic obstructive pulmonary disease) Priority: Secondary Status: Chronic Qualifiers: COPD type: emphysema Emphysema type: unspecified Qualified Code(s): J43.9 - Emphysema, unspecified Hospital course: Mr. Pizarro is a 77 year old male with history of CAD status post CABG, A. fib not on anticoagulation, heart failure with reduced ejection fraction with AICD/pacemaker, CVA, diabetes, hypertension who presented to the ED with 1 day history of crushing chest pain. The patient had a workup in the ED which included a chest x-ray significant for enlargement of the cardiomediastinal silhouette and trace bilateral pleural effusions with mild prominence of interstitial lung markings. He did have an EKG which showed a paced rhythm with nonspecific ST-T wave changes that are generally similar to previous EKGs, along with a troponin of 0.04. Additionally, upon request they did get a d-dimer which was negative. CT abdomen did not show obvious etiology of his symptoms. Cardiology was consulted. Troponins were adynamic. Echo showed EF 35-40% which is consistent from previous. Cardiology recommended optimizing medical management including increasing imdur and adding ranexa. He was experiencing copious diarrhea and abdominal pain during stay. He did test positive for Norovirus and was treated symptomatically. He did improve during stay and was nearly asympomatic upon discharge. He will be discharged home in stable medical condition with follow ups with PCP and cardiology. Labs and vitals at baseline. Discharge discussed with: patient, social work - Time Spent with Patient Total time spent providing and/or coordinating discharge services: Date of admission: 07/30/18 18:48 Primary care physician: Lance Cronin MD Consults: 07/31/18 11:42 Consult to Cardiology [CONS] Routine Comment: Consulting Provider: Cardiology [facility] Reason for Consult: LVEF decreased 10% since January 2018 Call Completed: No Discharging clinician: Yvonne Nunez Anticipated date of discharge: 08/01/18 - Constitutional Vitals: Temp Pulse Resp BP Pulse Ox 98.0 F 69 18 110/65 96 08/01/18 11:59 08/01/18 11:59 08/01/18 11:59 08/01/18 11:59 08/01/18 11:59 Exam: General: No acute distress, vital signs noted HEENT: normocephalic, head atraumatic, EOMI, PERRL, sclera anicteric, moist mu cus membranes Neck: Supple, no lymphadenopathy Cardio: RRR, no murmurs, +S1/S2 Pulm: CTAB, no wheezing, rhonchi, or rales. Normal respiratory effort. Abdomen: soft, nontender to palpation, BS+; no rebound, rigidity, guarding, or distention Extremities: No LE edema, no cyanosis or clubbing, non-tender Neuro: AAOx3, no focal deficits, CN II-XII grossly intact, moves 4 extremities spontaneously Skin: clean, dry, intact, no visible rashes Psych: Appropriate mood and affect. Answers questions appropriately. Cooperative with exam - Patient Status Overall status at discharge: patient is progressing back to baseline - Diet and Activity Activity: increase activity as tolerated, other (wear oxygen as directed) Diet: diabetic diet, low fat, low cholesterol, low salt diet
--- NOTE | 2018-08-01 14:12 | Physician Discharge Referral ---
<Yvonne Nunez - Last Filed: 08/01/18 14:12> Home Health/Hosp Referral Info Transfer to: Home Health Provider in Charge Post Discharge: PCP - Diagnosis (1) Abdominal pain Status: Resolved (2) Norovirus Status: Acute (3) Chest pain Status: Acute (4) Chronic systolic heart failure Status: Chronic (5) CAD (coronary artery disease) Status: Chronic (6) DM2 (diabetes mellitus, type 2) Status: Chronic (7) HTN (hypertension) Status: Acute (8) COPD (chronic obstructive pulmonary disease) Status: Chronic - Respiratory Orders Smoking Cessation: Smoking cessation has been advised. For more information, call the [place] Tobacco Quit Line at 0-641-DKYD-NOW. - Services Needed Following services are medically necessary services: Nursing - Transfer Medications Prescriptions: Ticagrelor [Brilinta] 90 mg PO BID #60 tablet Isosorbide MONOnitrate (24 HR) [Imdur] 120 mg PO DAILY #60 tab.er.24h Ranolazine [Ranexa] 500 mg PO BID #60 tab.er.12h Home Medications: Aspirin [Lo-Dose Aspirin EC] 81 mg PO DAILY 08/10/17 [History] Atorvastatin [Lipitor] 40 mg PO QPM 08/10/17 [History] Carvedilol 3.125 mg PO BID 08/10/17 [History] Cinnamon Bark [Cinnamon] 500 mg PO DAILY 08/10/17 [History] Lisinopril 2.5 mg PO DAILY 08/10/17 [History] Nitroglycerin [Nitrostat] 0.4 mg SL Q5M PRN 08/10/17 [History] [place]-3/Dha/Epa/Fish Oil [Fish Oil 1,000 mg Softgel] 1 cap PO DAILY 08/10/17 [History] Potassium Chloride [K-Tab ER] 10 meq PO DAILY 08/10/17 [History] Furosemide [Lasix] 20 mg PO BID #60 tablet 11/10/17 [Rx] Acetaminophen [Tylenol] 650 mg PO TID PRN 07/30/18 [History] Isosorbide MONOnitrate (24 HR) [Imdur] 120 mg PO DAILY #60 tab.er.24h 08/01/18 [Rx] Ranolazine [Ranexa] 500 mg PO BID #60 tab.er.12h 08/01/18 [Rx] Ticagrelor [Brilinta] 90 mg PO BID #60 tablet 08/01/18 [Rx] Allergies/Adverse Reactions: Allergy/AdvReac Type Severity Reaction Status Date / Time oxycodone [From Percocet] Allergy Hives Verified 07/30/18 14:48 tramadol Allergy Hives Verified 07/30/18 14:48 Certification: Further, I certify that my clinical findings support that this patient is homebound (i.e. absences from home require considerable and taxing effort and are for medical reasons or restoration services or infrequently or short duration when for other reasons) because: Attestation: My signature below is to certify that this patient is under my care and that I, or nurse practitioner, or a physician's certified physician assistant working with me, has a [id number] encounter with this patient. <Jimy Hansen - Last Filed: 08/01/18 16:15> - Diagnosis (1) Norovirus Priority: Primary Status: Acute (2) Chest pain Priority: Secondary Status: Acute (3) CAD (coronary artery disease) Priority: Secondary Status: Chronic (4) DVT prophylaxis Priority: Secondary Status: Acute (5) Abdominal pain Priority: Secondary Status: Acute (6) Chronic CHF (congestive heart failure) Priority: Secondary Status: Chronic (7) HTN (hypertension) Priority: Secondary Status: Acute (8) COPD (chronic obstructive pulmonary disease) Priority: Secondary Status: Chronic (9) Diabetes Priority: Secondary Status: Chronic (10) Hypokalemia Priority: Secondary Status: Resolved - Respiratory Orders None Smoking Cessation: Smoking cessation has been advised. For more information, call the [place] Tobacco Quit Line at 9-342-FNSQ-NOW. - Diet/Nutrition Diet/Nutrition Orders: Cardiac - Activity Activity Orders: Up ad ulises Certification: Further, I certify that my clinical findings support that this patient is homebound (i.e. absences from home require considerable and taxing effort and are for medical reasons or restoration services or infrequently or short duration when for other reasons) because: Homebound Reason: Patient requires assistance of a person or device to safely leave home, Severity of cardiac or pulmonary status limits activity tolerance Attestation: My signature below is to certify that this patient is under my care and that I, or nurse practitioner, or a physician's certified physician assistant working with me, has a face- to-face encounter with this patient.
--- NOTE | 2018-08-01 15:48 | Electrocardiograph Report ---
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
== END 2018-08-01 17:00 | disposition home health service (06) | DRG 392 ==
LOC: 3BNU 15:13 → EMEROOARM 15:13 → SUATTDRO 18:01 → 3BNU 18:24
PROVIDERS: ADMIT Internal Medicine; ATTEND Internal Medicine

== ENCOUNTER 2019-01-01 08:33 | Observation (INO) ==
[2019-01-01 09:12] LABS: Basophils # 0.1 K/mcL (0.0-0.2); Basophils % 0.8 %; Eosinophils # 0.2 K/mcL (0.0-0.6); Eosinophils % 2.9 %; Hematocrit 43.4 % (37.5-50.1); Hemoglobin 14.7 g/dL (12.9-16.9); Immature Granulocytes % 0.3 % (0-4); Lymphocytes # 1.2 K/mcL (0.6-4.6); Lymphocytes % 14.9 %; Mean Corpuscular HGB Conc 33.9 g/dL (31.6-35.5); Mean Corpuscular Hemoglobin 30.3 pg (28.0-33.3); Mean Corpuscular Volume 89.5 fL (83.0-100.0); Mean Platelet Volume 10.5 fL (9.4-12.4); Monocytes # 0.8 K/mcL (0.0-1.3); Monocytes % 9.9 %; Neutrophils # 5.7 K/mcL (1.6-8.9); Platelet Count 156 K/mcL (140-400); Red Blood Count 4.85 M/mcL (4.19-5.50); Segmented Neutrophils % 71.2 %
[2019-01-01 09:30] LABS: Alanine Aminotransferase 14 Units/L (7-52); Albumin 4.1 g/dL (3.5-5.7); Albumin/Globulin Ratio 1.2 (1.1-2.2); Alkaline Phosphatase 64 Units/L (34-104); Aspartate Amino Transferase 15 Units/L (13-39); BUN/Creatinine Ratio 18 (6-26); Bilirubin,Total 0.9 mg/dL (0.3-1.0); Blood Urea Nitrogen 21 mg/dL (8-23); Calcium 9.7 mg/dL (8.6-10.3); Carbon Dioxide 25 mEq/L (23-29); Chloride 105 mEq/L (98-107); Globulin 3.3 g/dL (2.4-3.5); Glucose 146 mg/dL (70-105); Osmolality,Calculated 294 (280-300); Potassium 4.1 mEq/L (3.5-5.1); Sodium 139 mEq/L (136-145); Total Protein 7.4 g/dL (6.4-8.9); Uric Acid 8.8 mg/dL (2.3-7.6); eGFR For African Americans > 60 (> 60); eGFR For Non-African Americans 60 (> 60)
[2019-01-01] MEDS ORDERED: *HR* Heparin 5,000 UNIT/ML VIAL IVP ONE (10:18)
[2019-01-01] MEDS ORDERED: *HR* Heparin 5,000 UNIT/ML VIAL IVP PRN ×2 (10:18)
[2019-01-01 10:34] LABS: C-Reactive Protein 6 mg/L (Less than 10)
[2019-01-01 10:39] LABS: Hematocrit 43.5 % (37.5-50.1); Hemoglobin 14.7 g/dL (12.9-16.9); Mean Corpuscular HGB Conc 33.8 g/dL (31.6-35.5); Mean Corpuscular Hemoglobin 30.6 pg (28.0-33.3); Mean Corpuscular Volume 90.4 fL (83.0-100.0); Mean Platelet Volume 10.7 fL (9.4-12.4); Platelet Count 156 K/mcL (140-400); Red Blood Count 4.81 M/mcL (4.19-5.50); White Blood Count 7.6 K/mcL (4.3-11.1)
[2019-01-01 10:47] LABS: Heparin anti-factor XA UFH 0.68 IU/mL (0.30-0.70); INR 1.2
[2019-01-01] MEDS ORDERED: Ondansetron 4 MG/2 ML VIAL IVP PRN (10:48)
[2019-01-01] MEDS ORDERED: Naloxone 0.4 MG/ML INJ IVP PRN (10:48)
[2019-01-01] MEDS ORDERED: Acetaminophen 325 MG TABLET PO PRN (10:48)
[2019-01-01] MEDS: Heparin 25,000 UNIT/250 ML D5W 25,000 UNIT/250 ML IV.SOLN IVC SCH (11:02)
[2019-01-01] MEDS: *HR* HYDROcodone/Acet 5/325 mg TABLET PO PRN ×2 (15:59→23:50)
[2019-01-01] MEDS ORDERED: Nitroglycerin 0.4 MG TAB.SUBL SL PRN (16:24)
[2019-01-01] MEDS: Ranolazine 500 MG TAB.ER.12H PO SCH (20:19)
[2019-01-02 02:36] LABS: Hematocrit 45.1 % (37.5-50.1); Hemoglobin 15.2 g/dL (12.9-16.9); Mean Corpuscular HGB Conc 33.7 g/dL (31.6-35.5); Mean Corpuscular Hemoglobin 30.3 pg (28.0-33.3); Mean Corpuscular Volume 89.8 fL (83.0-100.0); Mean Platelet Volume 10.8 fL (9.4-12.4); Platelet Count 160 K/mcL (140-400); Red Blood Count 5.02 M/mcL (4.19-5.50); Red Cell Distribution Width 13.2 % (11.5-14.5); White Blood Count 7.1 K/mcL (4.3-11.1)
[2019-01-02 02:52] LABS: BUN/Creatinine Ratio 16 (6-26); Blood Urea Nitrogen 18 mg/dL (8-23); Calcium 9.7 mg/dL (8.6-10.3); Carbon Dioxide 22 mEq/L (23-29); Chloride 107 mEq/L (98-107); Glucose 122 mg/dL (70-105); Osmolality,Calculated 291 (280-300); Potassium 3.9 mEq/L (3.5-5.1); Sodium 139 mEq/L (136-145); eGFR For African Americans > 60 (> 60); eGFR For Non-African Americans > 60 (> 60)
[2019-01-02] MEDS: *HR* HYDROcodone/Acet 5/325 mg TABLET PO PRN ×2 (06:47→20:27)
[2019-01-02] MEDS: Ranolazine 500 MG TAB.ER.12H PO SCH ×2 (08:16→20:27)
[2019-01-02] MEDS: Isosorbide MONOnitrate (24 HR) 60 MG TAB.ER.24H PO SCH (08:16)
[2019-01-02] MEDS: Aspirin Enteric Coated 81 MG Tablet PO SCH (08:17)
[2019-01-02] MEDS: Furosemide 20 MG TABLET PO SCH (08:17)
[2019-01-02] MEDS: Heparin 25,000 UNIT/250 ML D5W 25,000 UNIT/250 ML IV.SOLN IVC SCH (10:56)
[2019-01-02] MEDS ORDERED: Isovue-370 500 ML BOTTLE IVP ONE (13:43)
[2019-01-03 05:03] LABS: Hematocrit 44.1 % (37.5-50.1); Hemoglobin 14.9 g/dL (12.9-16.9); Mean Corpuscular HGB Conc 33.8 g/dL (31.6-35.5); Mean Corpuscular Hemoglobin 30.1 pg (28.0-33.3); Mean Corpuscular Volume 89.1 fL (83.0-100.0); Platelet Count 153 K/mcL (140-400); Red Blood Count 4.95 M/mcL (4.19-5.50); Red Cell Distribution Width 13.2 % (11.5-14.5); White Blood Count 6.8 K/mcL (4.3-11.1)
[2019-01-03 05:18] LABS: BUN/Creatinine Ratio 17 (6-26); Blood Urea Nitrogen 22 mg/dL (8-23); Calcium 9.8 mg/dL (8.6-10.3); Carbon Dioxide 22 mEq/L (23-29); Chloride 107 mEq/L (98-107); Glucose 102 mg/dL (70-105); Osmolality,Calculated 290 (280-300); Potassium 3.9 mEq/L (3.5-5.1); Sodium 138 mEq/L (136-145); eGFR For African Americans > 60 (> 60); eGFR For Non-African Americans 54 (> 60)
[2019-01-03] MEDS: *HR* HYDROcodone/Acet 5/325 mg TABLET PO PRN ×2 (06:05→11:23)
[2019-01-03 07:11] VITALS: BP 144/81
[2019-01-03] MEDS: Heparin 25,000 UNIT/250 ML D5W 25,000 UNIT/250 ML IV.SOLN IVC SCH (08:35)
[2019-01-03] MEDS: Isosorbide MONOnitrate (24 HR) 60 MG TAB.ER.24H PO SCH (08:37)
[2019-01-03] MEDS: Ranolazine 500 MG TAB.ER.12H PO SCH (08:37)
[2019-01-03] MEDS: Aspirin Enteric Coated 81 MG Tablet PO SCH (08:37)
[2019-01-03] MEDS: Furosemide 20 MG TABLET PO SCH (08:38)
[2019-01-03] MEDS ORDERED: *HR* Rivaroxaban 15 MG TABLET PO SCH (09:45)
[2019-01-04 15:29] LABS: FACV Specimen WHOLE BLOOD
[2019-01-05 10:34] LABS: Fac V Leiden R506Q Mut Result NEGATIVE
[2019-01-09 12:50] LABS: Antiphospholipid IgG High Spec 0 GPL (0-14)
[2019-01-09 12:51] LABS: Antiphospholipid IgM High Spec 4 MPL (0-14)
== END 2019-01-03 11:58 | disposition home or self-care (01) ==
LOC: 3BNU 08:33 → EMEROOARM 08:33 → SUATTDRO 11:02 → 3BNU 11:34
PROVIDERS: ADMIT Internal Medicine; ATTEND Family Medicine

== ENCOUNTER 2019-01-04 15:11 | Observation (INO) ==
[2019-01-04] MEDS ORDERED: Isovue-370 500 ML BOTTLE IVP ONE (15:34)
[2019-01-04 15:48] LABS: Basophils # 0.1 K/mcL (0.0-0.2); Basophils % 0.9 %; Eosinophils # 0.3 K/mcL (0.0-0.6); Eosinophils % 3.7 %; Hematocrit 43.7 % (37.5-50.1); Hemoglobin 14.9 g/dL (12.9-16.9); Immature Granulocytes % 0.1 % (0-4); Mean Corpuscular HGB Conc 34.1 g/dL (31.6-35.5); Mean Corpuscular Hemoglobin 30.8 pg (28.0-33.3); Mean Corpuscular Volume 90.5 fL (83.0-100.0); Mean Platelet Volume 10.7 fL (9.4-12.4); Monocytes # 0.9 K/mcL (0.0-1.3); Monocytes % 12.5 %; Neutrophils # 4.6 K/mcL (1.6-8.9); Platelet Count 158 K/mcL (140-400); Red Blood Count 4.83 M/mcL (4.19-5.50); Red Cell Distribution Width 13.1 % (11.5-14.5); Segmented Neutrophils % 67.8 %; White Blood Count 6.8 K/mcL (4.3-11.1)
[2019-01-04 16:02] LABS: Activated Partial Thrombo Time 43.4 Seconds (26.0-36.0)
[2019-01-04 16:08] LABS: BUN/Creatinine Ratio 20 (6-26); Blood Urea Nitrogen 26 mg/dL (8-23); Calcium 9.9 mg/dL (8.6-10.3); Carbon Dioxide 29 mEq/L (23-29); Chloride 106 mEq/L (98-107); Glucose 124 mg/dL (70-105); Osmolality,Calculated 298 (280-300); Sodium 141 mEq/L (136-145); Troponin I < 0.03 ng/mL (< 0.04); eGFR For African Americans > 60 (> 60); eGFR For Non-African Americans 52 (> 60)
[2019-01-04 16:13] LABS: Prothrombin Time 23.1 Seconds (9.4-12.1)
[2019-01-04] MEDS ORDERED: Aspirin 81 MG TAB.CHEW PO ONE (17:21)
[2019-01-04] MEDS ORDERED: Naloxone 0.4 MG/ML INJ IVP PRN (17:34)
[2019-01-04] MEDS ORDERED: Colchicine 0.6 MG TABLET PO ONE (18:00)
[2019-01-04] MEDS ORDERED: Acetaminophen 325 MG TABLET PO PRN (18:03)
[2019-01-04] MEDS ORDERED: Nitroglycerin 0.4 MG TAB.SUBL SL PRN (18:03)
[2019-01-04] MEDS ORDERED: *HR* Dextrose 50 % in Water (Syg) 50 ML SYRINGE IVP PRN (18:06)
[2019-01-04] MEDS ORDERED: D5% in Water 1,000 ML IVC PRN (18:06)
[2019-01-04] MEDS ORDERED: Dextrose Gel 15 GM/37.5 ML TUBE PO PRN ×2 (18:06)
[2019-01-04] MEDS ORDERED: predniSONE 5 MG TABLET PO SCH (18:30)
[2019-01-04] MEDS: (Omega-3/Dha/Epa/Fish Oil [Fish Oil 1,000 Mg Softgel]) PO SCH (21:37)
[2019-01-04] MEDS: Ranolazine 500 MG TAB.ER.12H PO SCH (21:37)
[2019-01-04] MEDS: *HR* Rivaroxaban 15 MG TABLET PO SCH (21:37)
[2019-01-04] MEDS: predniSONE 5 MG TABLET PO SCH (21:37)
[2019-01-05 02:18] LABS: BUN/Creatinine Ratio 22 (6-26); Blood Urea Nitrogen 25 mg/dL (8-23); Calcium 9.5 mg/dL (8.6-10.3); Carbon Dioxide 25 mEq/L (23-29); Chloride 107 mEq/L (98-107); Glucose 138 mg/dL (70-105); Magnesium 1.9 mg/dL (1.6-2.6); Osmolality,Calculated 293 (280-300); Sodium 138 mEq/L (136-145); eGFR For African Americans > 60 (> 60); eGFR For Non-African Americans > 60 (> 60)
[2019-01-05 02:20] LABS: Basophils # 0.1 K/mcL (0.0-0.2); Basophils % 0.7 %; Eosinophils # 0.2 K/mcL (0.0-0.6); Hematocrit 43.5 % (37.5-50.1); Hemoglobin 14.6 g/dL (12.9-16.9); Immature Granulocytes % 0.1 % (0-4); Lymphocytes # 0.9 K/mcL (0.6-4.6); Lymphocytes % 11.6 %; Mean Corpuscular HGB Conc 33.6 g/dL (31.6-35.5); Mean Corpuscular Hemoglobin 30.4 pg (28.0-33.3); Mean Corpuscular Volume 90.4 fL (83.0-100.0); Monocytes # 0.7 K/mcL (0.0-1.3); Monocytes % 8.8 %; Neutrophils # 5.8 K/mcL (1.6-8.9); Platelet Count 144 K/mcL (140-400); Red Blood Count 4.81 M/mcL (4.19-5.50); Segmented Neutrophils % 75.8 %; White Blood Count 7.7 K/mcL (4.3-11.1)
[2019-01-05] MEDS: Insulin LISPRO 300 UNITS/3 ML VIAL SQ SCH ×2 (07:11→11:35)
[2019-01-05] MEDS ORDERED: Furosemide 20 MG TABLET PO SCH (09:00)
[2019-01-05] MEDS ORDERED: Isosorbide MONOnitrate (24 HR) 60 MG TAB.ER.24H PO SCH (09:00)
[2019-01-05] MEDS ORDERED: Aspirin Enteric Coated 81 MG Tablet PO SCH (09:00)
[2019-01-05] MEDS ORDERED: Regadenoson 0.4 MG/5 ML SYRINGE IVP ONE (09:47)
[2019-01-05] MEDS: Ranolazine 500 MG TAB.ER.12H PO SCH (11:32)
[2019-01-05] MEDS: *HR* Rivaroxaban 15 MG TABLET PO SCH (11:33)
[2019-01-05] MEDS: (Omega-3/Dha/Epa/Fish Oil [Fish Oil 1,000 Mg Softgel]) PO SCH (11:33)
[2019-01-05] MEDS: predniSONE 5 MG TABLET PO SCH (11:33)
[2019-01-05 11:38] VITALS: BP 167/95
== END 2019-01-05 16:17 | disposition home or self-care (01) ==
LOC: 3BNU 15:11 → EMEROOARM 15:11 → SUATTDRO 18:35 → 3BNU 19:39
PROVIDERS: ADMIT Internal Medicine; ATTEND Internal Medicine

== ENCOUNTER 2019-11-20 02:32 | Inpatient (IN) ==
[2019-11-20] MEDS ORDERED: Furosemide 60 MG in 0.9 % Sodium Chloride 50 ML IV ONE (02:46)
[2019-11-20 03:17] LABS: INR 1.5; Prothrombin Time 17.6 Seconds (9.4-12.1)
[2019-11-20 03:19] LABS: Basophils % 0.5 %; Eosinophils # 0.2 K/mcL (0.0-0.6); Eosinophils % 3.1 %; Hematocrit 40.6 % (37.5-50.1); Hemoglobin 13.3 g/dL (12.9-16.9); Immature Granulocytes % 0.3 % (0-4); Lymphocytes # 1.1 K/mcL (0.6-4.6); Lymphocytes % 14.6 %; Mean Corpuscular HGB Conc 32.8 g/dL (31.6-35.5); Mean Corpuscular Hemoglobin 29.4 pg (28.0-33.3); Mean Corpuscular Volume 89.6 fL (83.0-100.0); Mean Platelet Volume 10.9 fL (9.4-12.4); Monocytes # 0.6 K/mcL (0.0-1.3); Monocytes % 8.1 %; Neutrophils # 5.5 K/mcL (1.6-8.9); Platelet Count 142 K/mcL (140-400); Red Blood Count 4.53 M/mcL (4.19-5.50); Red Cell Distribution Width 14.5 % (11.5-14.5); Segmented Neutrophils % 73.4 %; White Blood Count 7.5 K/mcL (4.3-11.1)
[2019-11-20 03:40] LABS: Albumin/Globulin Ratio 1.3 (1.1-2.2); Bilirubin,Direct 0.2 mg/dL (0.0-0.2); Bilirubin,Indirect 0.4 mg/dL (0.0-1.0); Bilirubin,Total 0.6 mg/dL (0.3-1.0); Calcium 9.7 mg/dL (8.6-10.3); Globulin 3.1 g/dL (2.4-3.5); Total Protein 7.1 g/dL (6.4-8.9); Troponin I 0.03 ng/mL (< 0.04)
[2019-11-20] MEDS ORDERED: Azithromycin 250 MG TABLET PO ONE (03:51)
[2019-11-20 04:36] LABS: Bilirubin,Urine Negative (Negative); Blood,Urine Negative (Negative); Clarity,Urine Clear (Clear); Color,Urine Light-Yellow (Yellow); Glucose,Urine (UA) Normal (Normal); Ketones,Urine Negative (Negative); Leukocyte Esterase,Urine Negative (Negative); Nitrite,Urine Negative (Negative); PH,Urine 7.5 pH Units (5.0-8.0); Protein,Urine Trace mg/dL (Neg-Trace); Specific Gravity,Urine 1.022 (1.010-1.025); Urobilinogen,Urine Normal (Normal)
[2019-11-20] MEDS ORDERED: Naloxone 0.4 MG/ML INJ IVP PRN (05:20)
[2019-11-20] MEDS ORDERED: Ondansetron 4 MG/2 ML VIAL IVP PRN (05:20)
[2019-11-20 05:46] LABS: Adenovirus Not Detected (Not Detect); Coronavirus 229E Not Detected (Not Detect); Coronavirus HKU1 Not Detected (Not Detect); Coronavirus NL63 Not Detected (Not Detect); Coronavirus OC43 Not Detected (Not Detect)
[2019-11-20 05:47] LABS: Bordetella Pertussis Not Detected (Not Detect); Chlamydophila pneumoniae Not Detected (Not Detect); Human Metapneumovirus Not Detected (Not Detect); Human Rhinovirus/Enterovirus Not Detected (Not Detect); Influenza A Subtype 2009 H1 Not Detected (Not Detect); Influenza B Not Detected (Not Detect); Mycoplasma pneumoniae Not Detected (Not Detect); Parainfluenza Virus 1 Not Detected (Not Detect); Parainfluenza Virus 2 Not Detected (Not Detect); Parainfluenza Virus 3 Not Detected (Not Detect); Parainfluenza Virus 4 Not Detected (Not Detect); Respiratory Syncytial Virus Not Detected (Not Detect)
[2019-11-20] MEDS ORDERED: *HR* Dextrose 50 % in Water (Vial) 50 ML VIAL IVP PRN (07:06)
[2019-11-20] MEDS ORDERED: Dextrose Gel 15 GM/37.5 ML TUBE PO PRN ×2 (07:06)
[2019-11-20] MEDS ORDERED: D5% in Water 1,000 ML IVC PRN (07:06)
[2019-11-20] MEDS: Insulin LISPRO 300 UNITS/3 ML VIAL SQ SCH ×3 (09:36→17:17)
[2019-11-20] MEDS: Furosemide 40 MG/4 ML VIAL IVP SCH ×2 (09:37→20:00)
[2019-11-20] MEDS: cefTRIAXone 1,000 MG in Water for inj. (sterile) 10 ML IVP SCH (09:37)
[2019-11-20] MEDS: Acetaminophen 325 MG TABLET PO PRN ×2 (11:34→19:58)
[2019-11-21] MEDS: Acetaminophen 325 MG TABLET PO PRN ×3 (01:25→17:26)
[2019-11-21 05:12] LABS: Alanine Aminotransferase 20 Units/L (7-52); Albumin 4.1 g/dL (3.5-5.7); Albumin/Globulin Ratio 1.3 (1.1-2.2); Alkaline Phosphatase 64 Units/L (34-104); Aspartate Amino Transferase 17 Units/L (13-39); BUN/Creatinine Ratio 21 (6-26); Bilirubin,Total 1.2 mg/dL (0.3-1.0); Blood Urea Nitrogen 27 mg/dL (8-23); Calcium 9.8 mg/dL (8.6-10.3); Carbon Dioxide 27 mEq/L (23-29); Chloride 103 mEq/L (98-107); Globulin 3.2 g/dL (2.4-3.5); Glucose 133 mg/dL (70-105); Osmolality,Calculated 297 (280-300); Potassium 3.6 mEq/L (3.5-5.1); Sodium 140 mEq/L (136-145); Total Protein 7.3 g/dL (6.4-8.9); eGFR For African Americans > 60 (> 60); eGFR For Non-African Americans 55 (> 60)
[2019-11-21 05:18] LABS: Basophils # 0.1 K/mcL (0.0-0.2); Basophils % 0.5 %; Eosinophils # 0.3 K/mcL (0.0-0.6); Hemoglobin 14.8 g/dL (12.9-16.9); Immature Granulocytes % 0.2 % (0-4); Immature Platelets 4.3 % (1.1-6.1); Lymphocytes # 1.2 K/mcL (0.6-4.6); Lymphocytes % 12.4 %; Mean Corpuscular HGB Conc 32.9 g/dL (31.6-35.5); Mean Corpuscular Hemoglobin 29.5 pg (28.0-33.3); Mean Corpuscular Volume 89.8 fL (83.0-100.0); Mean Platelet Volume 10.7 fL (9.4-12.4); Monocytes % 10.3 %; Neutrophils # 6.8 K/mcL (1.6-8.9); Platelet Count 140 K/mcL (140-400); Red Blood Count 5.01 M/mcL (4.19-5.50); Red Cell Distribution Width 14.7 % (11.5-14.5); Segmented Neutrophils % 73.6 %; White Blood Count 9.3 K/mcL (4.3-11.1)
[2019-11-21] MEDS: cefTRIAXone 1,000 MG in Water for inj. (sterile) 10 ML IVP SCH (07:48)
[2019-11-21] MEDS: Furosemide 40 MG/4 ML VIAL IVP SCH (07:48)
[2019-11-21] MEDS: Insulin LISPRO 300 UNITS/3 ML VIAL SQ SCH ×3 (07:49→16:24)
[2019-11-21] MEDS ORDERED: Nitroglycerin 0.4 MG TAB.SUBL SL PRN (08:49)
[2019-11-21] MEDS: Aspirin Enteric Coated 81 MG Tablet PO SCH (10:04)
[2019-11-21] MEDS: lisinopriL 5 MG TABLET PO SCH (10:04)
[2019-11-21] MEDS: carvediloL 6.25 MG TABLET PO SCH ×2 (10:04→21:24)
[2019-11-21] MEDS: Isosorbide MONOnitrate (24 HR) 60 MG TAB.ER.24H PO SCH (10:04)
[2019-11-21] MEDS: Ranolazine 500 MG TAB.ER.12H PO SCH ×2 (10:04→21:24)
[2019-11-21] MEDS: (Omega-3/Dha/Epa/Fish Oil [Fish Oil 1,000 Mg Softgel] PO SCH ×2 (10:04→21:24)
[2019-11-21] MEDS ORDERED: *HR* Rivaroxaban 10 MG TABLET PO SCH (17:00)
[2019-11-21] MEDS: Furosemide 40 MG TABLET PO SCH (17:17)
[2019-11-22 07:36] VITALS: BP 158/94
[2019-11-22] MEDS: Isosorbide MONOnitrate (24 HR) 60 MG TAB.ER.24H PO SCH (08:26)
[2019-11-22] MEDS: Furosemide 40 MG TABLET PO SCH (08:26)
[2019-11-22] MEDS: Ranolazine 500 MG TAB.ER.12H PO SCH (08:26)
[2019-11-22] MEDS: Acetaminophen 325 MG TABLET PO PRN (08:26)
[2019-11-22] MEDS: lisinopriL 5 MG TABLET PO SCH (08:26)
[2019-11-22] MEDS: Aspirin Enteric Coated 81 MG Tablet PO SCH (08:26)
[2019-11-22] MEDS: carvediloL 6.25 MG TABLET PO SCH (08:27)
[2019-11-22] MEDS: cefTRIAXone 1,000 MG in Water for inj. (sterile) 10 ML IVP SCH (08:29)
[2019-11-22] MEDS: Insulin LISPRO 300 UNITS/3 ML VIAL SQ SCH (08:32)
[2019-11-22] MEDS: (Omega-3/Dha/Epa/Fish Oil [Fish Oil 1,000 Mg Softgel] PO SCH (09:50)
== END 2019-11-22 11:00 | disposition home health service (06) | DRG 280 ==
LOC: EMEROOARM 02:32 → 3BNU 02:32 → SUATTDRO 05:50 → 3BNU 06:06
PROVIDERS: ADMIT Internal Medicine; ATTEND Internal Medicine

== ENCOUNTER 2020-05-09 06:01 | Observation (INO) ==
[2020-05-09 06:30] LABS: Basophils # 0.1 K/mcL (0.0-0.2); Basophils % 0.6 %; Eosinophils # 0.3 K/mcL (0.0-0.6); Eosinophils % 3.2 %; Hematocrit 40.9 % (37.5-50.1); Hemoglobin 13.3 g/dL (12.9-16.9); Immature Granulocytes % 0.4 % (0-4); Lymphocytes % 13.2 %; Mean Corpuscular HGB Conc 32.5 g/dL (31.6-35.5); Mean Corpuscular Volume 89.1 fL (83.0-100.0); Mean Platelet Volume 10.9 fL (9.4-12.4); Monocytes # 0.7 K/mcL (0.0-1.3); Monocytes % 9.3 %; Neutrophils # 5.8 K/mcL (1.6-8.9); Platelet Count 153 K/mcL (140-400); Red Blood Count 4.59 M/mcL (4.19-5.50); Red Cell Distribution Width 13.2 % (11.5-14.5); Segmented Neutrophils % 73.3 %; White Blood Count 7.9 K/mcL (4.3-11.1)
[2020-05-09 06:44] LABS: INR 1.2; Prothrombin Time 14.3 Seconds (9.4-12.1)
[2020-05-09 06:46] LABS: Activated Partial Thrombo Time 30.2 Seconds (26.0-36.0)
[2020-05-09 06:51] LABS: Potassium 4.2 mEq/L (3.5-5.1)
[2020-05-09] MEDS ORDERED: *HR* FentaNYL (PF) 100 MCG/2 ML VIAL IVP ONE (07:02)
[2020-05-09 07:24] LABS: Troponin I 0.03 ng/mL (< 0.04)
[2020-05-09] MEDS ORDERED: Naloxone 0.4 MG/ML INJ IVP PRN (09:43)
[2020-05-09] MEDS ORDERED: Ondansetron 4 MG/2 ML VIAL IVP PRN (09:43)
[2020-05-09] MEDS ORDERED: Acetaminophen 325 MG TABLET PO PRN (09:43)
[2020-05-09] MEDS ORDERED: 0.9 % Sodium Chloride 500 ML IVC SCH (10:00)
[2020-05-09] MEDS ORDERED: 0.9 % Sodium Chloride 500 ML IV SCH (13:30)
[2020-05-09] MEDS: carvediloL 6.25 MG TABLET PO SCH (17:41)
[2020-05-10] MEDS: Nitroglycerin 0.4 MG TAB.SUBL SL PRN ×3 (00:48→04:16)
[2020-05-10 01:20] LABS: Basophils # 0.1 K/mcL (0.0-0.2); Basophils % 0.6 %; Eosinophils # 0.3 K/mcL (0.0-0.6); Eosinophils % 3.1 %; Hematocrit 38.3 % (37.5-50.1); Hemoglobin 12.4 g/dL (12.9-16.9); Immature Granulocytes % 0.4 % (0-4); Lymphocytes # 1.4 K/mcL (0.6-4.6); Lymphocytes % 17.1 %; Mean Corpuscular HGB Conc 32.4 g/dL (31.6-35.5); Mean Corpuscular Hemoglobin 28.7 pg (28.0-33.3); Mean Corpuscular Volume 88.7 fL (83.0-100.0); Mean Platelet Volume 11.5 fL (9.4-12.4); Monocytes # 0.8 K/mcL (0.0-1.3); Monocytes % 9.5 %; Neutrophils # 5.7 K/mcL (1.6-8.9); Platelet Count 147 K/mcL (140-400); Red Blood Count 4.32 M/mcL (4.19-5.50); Red Cell Distribution Width 13.2 % (11.5-14.5); Segmented Neutrophils % 69.3 %; White Blood Count 8.2 K/mcL (4.3-11.1)
[2020-05-10 01:27] LABS: BUN/Creatinine Ratio 22 (6-26); Blood Urea Nitrogen 27 mg/dL (8-23); Calcium 9.2 mg/dL (8.6-10.3); Carbon Dioxide 21 mEq/L (23-29); Chloride 109 mEq/L (98-107); Glucose 139 mg/dL (70-105); Osmolality,Calculated 293 (280-300); Potassium 4.2 mEq/L (3.5-5.1); Sodium 138 mEq/L (136-145); eGFR For African Americans > 60 (> 60); eGFR For Non-African Americans 58 (> 60)
[2020-05-10 06:52] VITALS: BP 158/94
[2020-05-10] MEDS: carvediloL 6.25 MG TABLET PO SCH (07:43)
[2020-05-10] MEDS ORDERED: Furosemide 20 MG TABLET PO SCH (09:00)
[2020-05-10] MEDS ORDERED: *HR* Rivaroxaban 10 MG TABLET PO SCH (09:00)
[2020-05-10] MEDS ORDERED: Ranolazine 500 MG TAB.ER.12H PO SCH (09:00)
[2020-05-10] MEDS ORDERED: lisinopriL 5 MG TABLET PO SCH (09:00)
[2020-05-10] MEDS ORDERED: Isosorbide MONOnitrate (24 HR) 60 MG TAB.ER.24H PO SCH (09:00)
[2020-05-10] MEDS ORDERED: Aspirin Enteric Coated 81 MG Tablet PO SCH (09:00)
== END 2020-05-10 10:38 | disposition home or self-care (01) ==
LOC: EMEROOARM 06:01 → 2NENU 06:01
PROVIDERS: ADMIT Internal Medicine; ATTEND Internal Medicine

== ENCOUNTER 2020-05-16 01:30 | Observation (INO) ==
[2020-05-16 02:05] LABS: Basophils % 0.4 %; Eosinophils # 0.2 K/mcL (0.0-0.6); Hematocrit 36.9 % (37.5-50.1); Immature Granulocytes % 0.5 % (0-4); Lymphocytes # 1.4 K/mcL (0.6-4.6); Lymphocytes % 13.2 %; Mean Corpuscular HGB Conc 32.5 g/dL (31.6-35.5); Mean Corpuscular Hemoglobin 28.7 pg (28.0-33.3); Mean Corpuscular Volume 88.3 fL (83.0-100.0); Monocytes # 0.9 K/mcL (0.0-1.3); Neutrophils # 7.7 K/mcL (1.6-8.9); Platelet Count 137 K/mcL (140-400); Red Blood Count 4.18 M/mcL (4.19-5.50); Red Cell Distribution Width 13.5 % (11.5-14.5); Segmented Neutrophils % 74.9 %; White Blood Count 10.3 K/mcL (4.3-11.1)
[2020-05-16 02:12] LABS: INR 1.2; Prothrombin Time 14.3 Seconds (9.4-12.1)
[2020-05-16 02:14] LABS: Activated Partial Thrombo Time 23.8 Seconds (26.0-36.0)
[2020-05-16 02:26] LABS: BUN/Creatinine Ratio 24 (6-26); Blood Urea Nitrogen 30 mg/dL (8-23); Calcium 9.7 mg/dL (8.6-10.3); Carbon Dioxide 26 mEq/L (23-29); Chloride 105 mEq/L (98-107); Glucose 161 mg/dL (70-105); Osmolality,Calculated 296 (280-300); Sodium 138 mEq/L (136-145); eGFR For African Americans > 60 (> 60); eGFR For Non-African Americans 55 (> 60)
[2020-05-16 02:31] LABS: Troponin I 0.04 ng/mL (< 0.04)
[2020-05-16] MEDS ORDERED: Aspirin 81 MG TAB.CHEW PO ONE (03:48)
[2020-05-16] MEDS ORDERED: GI Cocktail 40 ML EACH PO ONE (03:55)
[2020-05-16] MEDS ORDERED: Nitroglycerin 0.4 MG TAB.SUBL SL ONE (04:24)
[2020-05-16] MEDS ORDERED: Naloxone 0.4 MG/ML INJ IVP PRN (05:11)
[2020-05-16] MEDS ORDERED: Nitroglycerin 0.4 MG TAB.SUBL SL PRN (08:19)
[2020-05-16] MEDS ORDERED: *HR* Rivaroxaban 10 MG TABLET PO SCH (09:00)
[2020-05-16] MEDS ORDERED: Ranolazine 500 MG TAB.ER.12H PO SCH (09:00)
[2020-05-16] MEDS ORDERED: lisinopriL 5 MG TABLET PO SCH (09:00)
[2020-05-16] MEDS ORDERED: Metoprolol XL (24 HR) Succ 25 MG TAB.ER.24H PO SCH (10:15)
[2020-05-16 10:49] VITALS: BP 172/82
[2020-05-17] MEDS ORDERED: Aspirin Enteric Coated 81 MG Tablet PO SCH (09:00)
== END 2020-05-16 15:46 | disposition home health service (06) ==
LOC: EMEROOARM 01:30 → 3NENU 01:30
PROVIDERS: ADMIT Internal Medicine; ATTEND Internal Medicine

== ENCOUNTER 2020-06-05 07:44 | Observation (INO) ==
[2020-06-05 09:41] LABS: Basophils # 0.1 K/mcL (0.0-0.2); Basophils % 0.8 %; Eosinophils # 0.4 K/mcL (0.0-0.6); Eosinophils % 4.5 %; Immature Granulocytes % 0.3 % (0-4); Lymphocytes # 1.1 K/mcL (0.6-4.6); Lymphocytes % 13.4 %; Mean Corpuscular HGB Conc 32.9 g/dL (31.6-35.5); Mean Corpuscular Hemoglobin 29.1 pg (28.0-33.3); Mean Corpuscular Volume 88.4 fL (83.0-100.0); Mean Platelet Volume 10.6 fL (9.4-12.4); Monocytes # 0.6 K/mcL (0.0-1.3); Monocytes % 7.9 %; Neutrophils # 5.8 K/mcL (1.6-8.9); Platelet Count 155 K/mcL (140-400); Red Cell Distribution Width 14.6 % (11.5-14.5); Segmented Neutrophils % 73.1 %; White Blood Count 7.9 K/mcL (4.3-11.1)
[2020-06-05 09:45] LABS: Hemoglobin 12.5 g/dL (12.9-16.9)
[2020-06-05 09:50] LABS: INR 1.2; Prothrombin Time 13.5 Seconds (9.4-12.1)
[2020-06-05 10:02] LABS: Alanine Aminotransferase 24 Units/L (7-52); Albumin/Globulin Ratio 1.2 (1.1-2.2); Alkaline Phosphatase 82 Units/L (34-104); Aspartate Amino Transferase 22 Units/L (13-39); BUN/Creatinine Ratio 19 (6-26); Bilirubin,Direct 0.2 mg/dL (0.0-0.2); Bilirubin,Indirect 0.6 mg/dL (0.0-1.0); Bilirubin,Total 0.8 mg/dL (0.3-1.0); Blood Urea Nitrogen 25 mg/dL (8-23); Calcium 9.6 mg/dL (8.6-10.3); Carbon Dioxide 26 mEq/L (23-29); Chloride 105 mEq/L (98-107); Globulin 3.3 g/dL (2.4-3.5); Glucose 144 mg/dL (70-105); Lipase 28 Units/L (11-82); Osmolality,Calculated 297 (280-300); Potassium 3.9 mEq/L (3.5-5.1); Sodium 140 mEq/L (136-145); Total Protein 7.3 g/dL (6.4-8.9); Troponin I 0.04 ng/mL (< 0.04); eGFR For African Americans > 60 (> 60); eGFR For Non-African Americans 53 (> 60)
[2020-06-05] MEDS ORDERED: Naloxone 0.4 MG/ML INJ IVP PRN (11:12)
[2020-06-05] MEDS: Aspirin 81 MG TAB.CHEW PO SCH (11:49)
[2020-06-05] MEDS: Furosemide 20 MG/2 ML VIAL IVP SCH ×2 (15:11→20:00)
[2020-06-05] MEDS ORDERED: Cefepime HCl 1,000 MG in 0.9 % Sodium Chloride Mini Bag 100 ML IVPB SCH (18:00)
[2020-06-05] MEDS: cephALEXin 500 MG CAPSULE PO SCH (19:59)
[2020-06-05] MEDS: DOXYCYCLINE ORAL SUSPENSION 100 MG/10 ML UDC PO SCH (20:00)
[2020-06-05] MEDS: Acetaminophen 325 MG TABLET PO PRN (22:50)
[2020-06-06 01:02] LABS: Basophils # 0.1 K/mcL (0.0-0.2); Basophils % 0.7 %; Eosinophils # 0.4 K/mcL (0.0-0.6); Hematocrit 40.4 % (37.5-50.1); Hemoglobin 13.4 g/dL (12.9-16.9); Immature Granulocytes % 0.3 % (0-4); Lymphocytes # 1.3 K/mcL (0.6-4.6); Mean Corpuscular HGB Conc 33.2 g/dL (31.6-35.5); Mean Corpuscular Hemoglobin 29.8 pg (28.0-33.3); Mean Corpuscular Volume 89.8 fL (83.0-100.0); Mean Platelet Volume 11.1 fL (9.4-12.4); Monocytes # 0.8 K/mcL (0.0-1.3); Monocytes % 10.9 %; Platelet Count 160 K/mcL (140-400); Red Cell Distribution Width 14.6 % (11.5-14.5); Segmented Neutrophils % 66.1 %; White Blood Count 7.6 K/mcL (4.3-11.1)
[2020-06-06 01:25] LABS: BUN/Creatinine Ratio 20 (6-26); Blood Urea Nitrogen 25 mg/dL (8-23); Calcium 9.7 mg/dL (8.6-10.3); Chloride 104 mEq/L (98-107); Glucose 123 mg/dL (70-105); Osmolality,Calculated 292 (280-300); Potassium 3.9 mEq/L (3.5-5.1); Sodium 138 mEq/L (136-145); eGFR For African Americans > 60 (> 60); eGFR For Non-African Americans 55 (> 60)
[2020-06-06 02:09] LABS: Carbon Dioxide 22 mEq/L (23-29)
[2020-06-06] MEDS: Aspirin 81 MG TAB.CHEW PO SCH (08:29)
[2020-06-06] MEDS: Acetaminophen 325 MG TABLET PO PRN ×2 (08:29→16:36)
[2020-06-06] MEDS: cephALEXin 500 MG CAPSULE PO SCH ×3 (08:30→20:30)
[2020-06-06] MEDS: Furosemide 20 MG/2 ML VIAL IVP SCH ×2 (08:30→20:30)
[2020-06-06] MEDS: DOXYCYCLINE ORAL SUSPENSION 100 MG/10 ML UDC PO SCH ×2 (08:52→21:18)
[2020-06-06] MEDS ORDERED: Nitroglycerin 0.4 MG TAB.SUBL SL PRN (10:27)
[2020-06-06] MEDS: Ranolazine 500 MG TAB.ER.12H PO SCH (10:59)
[2020-06-06] MEDS: Isosorbide MONOnitrate (24 HR) 60 MG TAB.ER.24H PO SCH (10:59)
[2020-06-06] MEDS: lisinopriL 5 MG TABLET PO SCH (10:59)
[2020-06-06] MEDS ORDERED: Ibuprofen 400 MG TABLET PO ONE (13:00)
[2020-06-06] MEDS: Metoprolol XL (24 HR) Succ 25 MG TAB.ER.24H PO SCH (20:30)
[2020-06-06] MEDS: Ibuprofen 400 MG TABLET PO PRN (20:42)
[2020-06-07] MEDS: lisinopriL 5 MG TABLET PO SCH (08:22)
[2020-06-07] MEDS: Ranolazine 500 MG TAB.ER.12H PO SCH (08:22)
[2020-06-07] MEDS: *HR* Rivaroxaban 10 MG TABLET PO SCH (08:22)
[2020-06-07] MEDS: Aspirin 81 MG TAB.CHEW PO SCH (08:22)
[2020-06-07] MEDS: cephALEXin 500 MG CAPSULE PO SCH ×3 (08:22→19:53)
[2020-06-07] MEDS: Isosorbide MONOnitrate (24 HR) 60 MG TAB.ER.24H PO SCH (08:22)
[2020-06-07] MEDS: Metoprolol XL (24 HR) Succ 25 MG TAB.ER.24H PO SCH ×2 (08:23→19:53)
[2020-06-07] MEDS: Furosemide 20 MG/2 ML VIAL IVP SCH (08:24)
[2020-06-07] MEDS: DOXYCYCLINE ORAL SUSPENSION 100 MG/10 ML UDC PO SCH ×2 (08:31→19:54)
[2020-06-07] MEDS: Acetaminophen 325 MG TABLET PO PRN (13:31)
[2020-06-07] MEDS: Furosemide 20 MG TABLET PO SCH (16:30)
[2020-06-07] MEDS: Ibuprofen 400 MG TABLET PO PRN (19:53)
[2020-06-08 03:34] LABS: Basophils # 0.1 K/mcL (0.0-0.2); Basophils % 0.7 %; Eosinophils # 0.6 K/mcL (0.0-0.6); Eosinophils % 7.5 %; Hematocrit 38.5 % (37.5-50.1); Hemoglobin 12.8 g/dL (12.9-16.9); Immature Granulocytes % 0.4 % (0-4); Lymphocytes # 1.3 K/mcL (0.6-4.6); Lymphocytes % 17.2 %; Mean Corpuscular HGB Conc 33.2 g/dL (31.6-35.5); Mean Corpuscular Hemoglobin 29.8 pg (28.0-33.3); Mean Corpuscular Volume 89.5 fL (83.0-100.0); Mean Platelet Volume 10.9 fL (9.4-12.4); Monocytes # 0.8 K/mcL (0.0-1.3); Monocytes % 10.8 %; Neutrophils # 4.8 K/mcL (1.6-8.9); Platelet Count 166 K/mcL (140-400); Red Cell Distribution Width 14.5 % (11.5-14.5); Segmented Neutrophils % 63.4 %; White Blood Count 7.5 K/mcL (4.3-11.1)
[2020-06-08 03:53] LABS: BUN/Creatinine Ratio 23 (6-26); Blood Urea Nitrogen 30 mg/dL (8-23); Calcium 9.3 mg/dL (8.6-10.3); Carbon Dioxide 25 mEq/L (23-29); Chloride 105 mEq/L (98-107); Glucose 145 mg/dL (70-105); Osmolality,Calculated 295 (280-300); Potassium 3.8 mEq/L (3.5-5.1); Sodium 138 mEq/L (136-145); eGFR For African Americans > 60 (> 60); eGFR For Non-African Americans 53 (> 60)
[2020-06-08] MEDS: lisinopriL 5 MG TABLET PO SCH (09:10)
[2020-06-08] MEDS: Aspirin 81 MG TAB.CHEW PO SCH (09:10)
[2020-06-08] MEDS: cephALEXin 500 MG CAPSULE PO SCH ×3 (09:10→20:54)
[2020-06-08] MEDS: Ranolazine 500 MG TAB.ER.12H PO SCH (09:10)
[2020-06-08] MEDS: *HR* Rivaroxaban 10 MG TABLET PO SCH (09:11)
[2020-06-08] MEDS: Metoprolol XL (24 HR) Succ 25 MG TAB.ER.24H PO SCH ×2 (09:11→20:54)
[2020-06-08] MEDS: Furosemide 20 MG TABLET PO SCH ×2 (09:11→16:39)
[2020-06-08] MEDS: Isosorbide MONOnitrate (24 HR) 60 MG TAB.ER.24H PO SCH (09:11)
[2020-06-08] MEDS: DOXYCYCLINE ORAL SUSPENSION 100 MG/10 ML UDC PO SCH ×2 (09:14→20:55)
[2020-06-08] MEDS: Acetaminophen 325 MG TABLET PO PRN (16:42)
[2020-06-08] MEDS: Ibuprofen 400 MG TABLET PO PRN (20:54)
[2020-06-09] MEDS: Furosemide 20 MG TABLET PO SCH (08:28)
[2020-06-09] MEDS: Metoprolol XL (24 HR) Succ 25 MG TAB.ER.24H PO SCH (08:28)
[2020-06-09] MEDS: Ranolazine 500 MG TAB.ER.12H PO SCH (08:28)
[2020-06-09] MEDS: lisinopriL 5 MG TABLET PO SCH (08:28)
[2020-06-09] MEDS: cephALEXin 500 MG CAPSULE PO SCH (08:28)
[2020-06-09] MEDS: Isosorbide MONOnitrate (24 HR) 60 MG TAB.ER.24H PO SCH (08:29)
[2020-06-09] MEDS: *HR* Rivaroxaban 10 MG TABLET PO SCH (08:29)
[2020-06-09] MEDS: Aspirin 81 MG TAB.CHEW PO SCH (08:29)
[2020-06-09] MEDS: DOXYCYCLINE ORAL SUSPENSION 100 MG/10 ML UDC PO SCH (08:40)
[2020-06-09 16:19] VITALS: BP 154/71
== END 2020-06-09 19:20 | disposition home or self-care (01) ==
LOC: EMEROOARM 07:44 → 3BNU 07:44 → SUATTDRO 12:04 → 3BNU 12:52
PROVIDERS: ADMIT Internal Medicine; ATTEND Registered Nurse

== ENCOUNTER 2020-10-06 03:52 | Inpatient (IN) ==
[2020-10-06 04:59] LABS: Basophils % 0.5 %; Eosinophils # 0.2 K/mcL (0.0-0.6); Hematocrit 48.9 % (37.5-50.1); Hemoglobin 15.5 g/dL (12.9-16.9); Immature Granulocytes % 0.4 % (0-4); Lymphocytes % 12.8 %; Mean Corpuscular HGB Conc 31.7 g/dL (31.6-35.5); Mean Corpuscular Hemoglobin 29.1 pg (28.0-33.3); Mean Corpuscular Volume 91.7 fL (83.0-100.0); Mean Platelet Volume 10.2 fL (9.4-12.4); Monocytes # 0.6 K/mcL (0.0-1.3); Monocytes % 7.8 %; Neutrophils # 5.9 K/mcL (1.6-8.9); Platelet Count 175 K/mcL (140-400); Red Blood Count 5.33 M/mcL (4.19-5.50); Red Cell Distribution Width 14.4 % (11.5-14.5); Segmented Neutrophils % 76.5 %; White Blood Count 7.7 K/mcL (4.3-11.1)
[2020-10-06 05:13] LABS: INR 1.2; Prothrombin Time 13.5 Seconds (9.4-12.1)
[2020-10-06 05:16] LABS: Activated Partial Thrombo Time 30.5 Seconds (26.0-36.0)
[2020-10-06 05:18] LABS: BUN/Creatinine Ratio 17 (6-26); Blood Urea Nitrogen 20 mg/dL (8-23); Calcium 10.1 mg/dL (8.6-10.3); Carbon Dioxide 26 mEq/L (23-29); Chloride 105 mEq/L (98-107); Glucose 142 mg/dL (70-105); Osmolality,Calculated 299 (280-300); Potassium 3.6 mEq/L (3.5-5.1); Sodium 142 mEq/L (136-145); Troponin I 0.03 ng/mL (< 0.04); eGFR For African Americans > 60 (> 60); eGFR For Non-African Americans 60 (> 60)
[2020-10-06] MEDS ORDERED: Ondansetron 4 MG/2 ML VIAL IVP PRN (09:03)
[2020-10-06] MEDS ORDERED: Melatonin 3 MG TABLET PO PRN (09:03)
[2020-10-06] MEDS ORDERED: Naloxone 0.4 MG/ML INJ IVP PRN (09:03)
[2020-10-06] MEDS ORDERED: *HR* Dextrose 50 % in Water (Vial) 50 ML VIAL IVP PRN (09:10)
[2020-10-06] MEDS ORDERED: D5% in Water 1,000 ML IVC PRN (09:10)
[2020-10-06] MEDS ORDERED: Dextrose Gel 15 GM/37.5 ML TUBE PO PRN ×2 (09:10)
[2020-10-06] MEDS: Insulin LISPRO 300 UNITS/3 ML VIAL SUBQ SCH ×3 (12:49→19:52)
[2020-10-06] MEDS ORDERED: Nitroglycerin 0.4 MG TAB.SUBL SL PRN (16:37)
[2020-10-06] MEDS ORDERED: Ipratropium/Albuterol Neb 3 ML IH PRN (17:25)
[2020-10-06] MEDS: Furosemide 40 MG/4 ML VIAL IVP SCH (17:38)
[2020-10-06] MEDS: lisinopriL 5 MG TABLET PO SCH (18:08)
[2020-10-06] MEDS: Metoprolol XL (24 HR) Succ 25 MG TAB.ER.24H PO SCH (19:52)
[2020-10-06] MEDS: *HR* HYDROcodone/Acet 5/325 mg TABLET PO SCH (19:52)
[2020-10-07 05:08] LABS: Basophils % 0.6 %; Eosinophils # 0.2 K/mcL (0.0-0.6); Eosinophils % 3.1 %; Hemoglobin 14.7 g/dL (12.9-16.9); Immature Granulocytes % 0.1 % (0-4); Lymphocytes # 1.1 K/mcL (0.6-4.6); Lymphocytes % 15.4 %; Mean Corpuscular HGB Conc 33.4 g/dL (31.6-35.5); Mean Corpuscular Volume 89.8 fL (83.0-100.0); Mean Platelet Volume 10.4 fL (9.4-12.4); Monocytes # 0.7 K/mcL (0.0-1.3); Neutrophils # 4.8 K/mcL (1.6-8.9); Platelet Count 165 K/mcL (140-400); Red Cell Distribution Width 13.9 % (11.5-14.5); Segmented Neutrophils % 70.8 %; White Blood Count 6.8 K/mcL (4.3-11.1)
[2020-10-07 05:20] LABS: BUN/Creatinine Ratio 19 (6-26); Blood Urea Nitrogen 20 mg/dL (8-23); Calcium 9.5 mg/dL (8.6-10.3); Carbon Dioxide 22 mEq/L (23-29); Chloride 108 mEq/L (98-107); Glucose 120 mg/dL (70-105); Osmolality,Calculated 292 (280-300); Potassium 3.6 mEq/L (3.5-5.1); Sodium 139 mEq/L (136-145); eGFR For African Americans > 60 (> 60); eGFR For Non-African Americans > 60 (> 60)
[2020-10-07] MEDS: Isosorbide MONOnitrate (24 HR) 60 MG TAB.ER.24H PO SCH (08:15)
[2020-10-07] MEDS: *HR* Rivaroxaban 10 MG TABLET PO SCH (08:15)
[2020-10-07] MEDS: Insulin LISPRO 300 UNITS/3 ML VIAL SUBQ SCH ×4 (08:15→21:23)
[2020-10-07] MEDS: lisinopriL 5 MG TABLET PO SCH (08:16)
[2020-10-07] MEDS: Ranolazine 500 MG TAB.ER.12H PO SCH (08:16)
[2020-10-07] MEDS: *HR* HYDROcodone/Acet 5/325 mg TABLET PO SCH ×2 (08:16→21:23)
[2020-10-07] MEDS: Metoprolol XL (24 HR) Succ 25 MG TAB.ER.24H PO SCH ×2 (08:16→21:23)
[2020-10-07] MEDS: Furosemide 40 MG/4 ML VIAL IVP SCH ×2 (08:17→17:18)
[2020-10-07] MEDS: Aspirin Enteric Coated 81 MG Tablet PO SCH (11:48)
[2020-10-08 06:20] LABS: BUN/Creatinine Ratio 23 (6-26); Blood Urea Nitrogen 27 mg/dL (8-23); Calcium 9.9 mg/dL (8.6-10.3); Carbon Dioxide 26 mEq/L (23-29); Chloride 104 mEq/L (98-107); Glucose 122 mg/dL (70-105); Osmolality,Calculated 294 (280-300); Phosphorous 3.3 mg/dL (2.7-4.5); Potassium 3.7 mEq/L (3.5-5.1); Sodium 139 mEq/L (136-145); eGFR For African Americans > 60 (> 60); eGFR For Non-African Americans 58 (> 60)
[2020-10-08] MEDS: Insulin LISPRO 300 UNITS/3 ML VIAL SUBQ SCH ×4 (07:12→20:20)
[2020-10-08] MEDS: Furosemide 40 MG/4 ML VIAL IVP SCH ×2 (07:41→16:31)
[2020-10-08] MEDS: *HR* Rivaroxaban 10 MG TABLET PO SCH (07:41)
[2020-10-08] MEDS: Isosorbide MONOnitrate (24 HR) 60 MG TAB.ER.24H PO SCH (07:41)
[2020-10-08] MEDS: Aspirin Enteric Coated 81 MG Tablet PO SCH (07:41)
[2020-10-08] MEDS: Metoprolol XL (24 HR) Succ 25 MG TAB.ER.24H PO SCH ×2 (07:41→20:20)
[2020-10-08] MEDS: lisinopriL 5 MG TABLET PO SCH (07:41)
[2020-10-08] MEDS: Ranolazine 500 MG TAB.ER.12H PO SCH (07:41)
[2020-10-08] MEDS: *HR* HYDROcodone/Acet 5/325 mg TABLET PO SCH ×2 (07:42→20:20)
[2020-10-09 04:54] LABS: BUN/Creatinine Ratio 23 (6-26); Blood Urea Nitrogen 29 mg/dL (8-23); Calcium 9.7 mg/dL (8.6-10.3); Carbon Dioxide 28 mEq/L (23-29); Chloride 103 mEq/L (98-107); Glucose 136 mg/dL (70-105); Osmolality,Calculated 296 (280-300); Phosphorous 2.8 mg/dL (2.7-4.5); Potassium 3.8 mEq/L (3.5-5.1); Sodium 139 mEq/L (136-145); eGFR For African Americans > 60 (> 60); eGFR For Non-African Americans 55 (> 60)
[2020-10-09 07:37] VITALS: TEMP 97.9
[2020-10-09] MEDS: Isosorbide MONOnitrate (24 HR) 60 MG TAB.ER.24H PO SCH (08:26)
[2020-10-09] MEDS: *HR* HYDROcodone/Acet 5/325 mg TABLET PO SCH (08:26)
[2020-10-09] MEDS: Ranolazine 500 MG TAB.ER.12H PO SCH (08:26)
[2020-10-09] MEDS: Aspirin Enteric Coated 81 MG Tablet PO SCH (08:26)
[2020-10-09] MEDS: Metoprolol XL (24 HR) Succ 25 MG TAB.ER.24H PO SCH (08:27)
[2020-10-09] MEDS: *HR* Rivaroxaban 10 MG TABLET PO SCH (08:28)
[2020-10-09] MEDS: lisinopriL 5 MG TABLET PO SCH (08:28)
[2020-10-09] MEDS ORDERED: Furosemide 40 MG TABLET PO SCH (08:30)
[2020-10-09] MEDS: Insulin LISPRO 300 UNITS/3 ML VIAL SUBQ SCH ×2 (08:45→11:33)
[2020-10-09] MEDS: Furosemide 40 MG/4 ML VIAL IVP SCH (08:55)
[2020-10-09 11:02] VITALS: BP 109/56; PULSE 62; O2SAT 96
== END 2020-10-09 14:19 | disposition home health service (06) | DRG 280 ==
LOC: EMEROOARM 03:52 → 3BNU 03:52 → SUATTDRO 09:10 → 3BNU 10:09
PROVIDERS: ADMIT Pharmacist; ATTEND Internal Medicine

== ENCOUNTER 2020-11-02 15:49 | Observation (INO) ==
[2020-11-02 17:28] LABS: Basophils # 0.1 K/mcL (0.0-0.2); Basophils % 0.5 %; Eosinophils # 0.1 K/mcL (0.0-0.6); Eosinophils % 0.4 %; Hemoglobin 11.7 g/dL (12.9-16.9); Immature Granulocytes % 0.3 % (0-4); Lymphocytes # 1.6 K/mcL (0.6-4.6); Lymphocytes % 13.9 %; Mean Corpuscular HGB Conc 33.4 g/dL (31.6-35.5); Mean Corpuscular Hemoglobin 30.2 pg (28.0-33.3); Mean Corpuscular Volume 90.2 fL (83.0-100.0); Mean Platelet Volume 10.8 fL (9.4-12.4); Monocytes # 0.8 K/mcL (0.0-1.3); Monocytes % 6.8 %; Platelet Count 171 K/mcL (140-400); Red Blood Count 3.88 M/mcL (4.19-5.50); Red Cell Distribution Width 13.6 % (11.5-14.5); Segmented Neutrophils % 78.1 %; White Blood Count 11.5 K/mcL (4.3-11.1)
[2020-11-02 17:35] LABS: INR 2.7; Prothrombin Time 29.9 Seconds (9.4-12.1)
[2020-11-02 17:37] LABS: Activated Partial Thrombo Time 39.8 Seconds (26.0-36.0)
[2020-11-02 17:50] LABS: Albumin 4.1 g/dL (3.5-5.7); Albumin/Globulin Ratio 1.2 (1.1-2.2); Bilirubin,Total 0.7 mg/dL (0.3-1.0); Calcium 10.5 mg/dL (8.6-10.3); Globulin 3.3 g/dL (2.4-3.5); Magnesium 2.2 mg/dL (1.6-2.6); Total Protein 7.4 g/dL (6.4-8.9); Troponin I 0.03 ng/mL (< 0.04)
[2020-11-02] MEDS ORDERED: Isovue-370 500 ML BOTTLE IVP ONE (18:02)
[2020-11-02] MEDS ORDERED: Pantoprazole 40 MG VIAL IVP ONE (18:03)
[2020-11-02] MEDS ORDERED: Naloxone 0.4 MG/ML INJ IVP PRN (23:56)
[2020-11-03] MEDS ORDERED: Dextrose Gel 15 GM/37.5 ML TUBE PO PRN ×2 (00:52)
[2020-11-03] MEDS ORDERED: *HR* Dextrose 50 % in Water (Vial) 50 ML VIAL IVP PRN (00:52)
[2020-11-03] MEDS ORDERED: D5% in Water 1,000 ML IVC PRN (00:52)
[2020-11-03] MEDS ORDERED: Perflutren Lipid Microsphere 1.3 ML in 0.9 % Sodium Chloride 8.7 ML IVP PRN (00:53)
[2020-11-03 01:21] LABS: Basophils # 0.1 K/mcL (0.0-0.2); Basophils % 0.6 %; Eosinophils # 0.2 K/mcL (0.0-0.6); Eosinophils % 1.6 %; Hematocrit 35.2 % (37.5-50.1); Hemoglobin 11.7 g/dL (12.9-16.9); Immature Granulocytes % 0.2 % (0-4); Lymphocytes % 21.4 %; Mean Corpuscular HGB Conc 33.2 g/dL (31.6-35.5); Mean Corpuscular Hemoglobin 30.1 pg (28.0-33.3); Mean Corpuscular Volume 90.5 fL (83.0-100.0); Mean Platelet Volume 10.8 fL (9.4-12.4); Monocytes # 0.7 K/mcL (0.0-1.3); Monocytes % 7.3 %; Neutrophils # 6.6 K/mcL (1.6-8.9); Platelet Count 147 K/mcL (140-400); Red Blood Count 3.89 M/mcL (4.19-5.50); Red Cell Distribution Width 13.7 % (11.5-14.5); Segmented Neutrophils % 68.9 %; White Blood Count 9.5 K/mcL (4.3-11.1)
[2020-11-03 01:33] LABS: Prothrombin Time 22.8 Seconds (9.4-12.1)
[2020-11-03 01:38] LABS: BUN/Creatinine Ratio 40 (6-26); Blood Urea Nitrogen 51 mg/dL (8-23); Calcium 9.7 mg/dL (8.6-10.3); Carbon Dioxide 24 mEq/L (23-29); Chloride 107 mEq/L (98-107); Glucose 133 mg/dL (70-105); Magnesium 2.1 mg/dL (1.6-2.6); Osmolality,Calculated 308 (280-300); Potassium 3.6 mEq/L (3.5-5.1); Sodium 141 mEq/L (136-145); eGFR For African Americans > 60 (> 60); eGFR For Non-African Americans 54 (> 60)
[2020-11-03 01:58] LABS: Bilirubin,Urine Negative (Negative); Blood,Urine Negative (Negative); Clarity,Urine Clear (Clear); Color,Urine Light-Yellow (Yellow); Glucose,Urine (UA) Normal (Normal); Ketones,Urine Negative (Negative); Leukocyte Esterase,Urine Negative (Negative); Nitrite,Urine Negative (Negative); Protein,Urine Trace mg/dL (Neg-Trace); Specific Gravity,Urine > 1.030 (1.010-1.025); Urobilinogen,Urine Normal (Normal)
[2020-11-03] MEDS ORDERED: Melatonin 3 MG TABLET PO ONE (03:36)
[2020-11-03 04:54] LABS: Estimated Average Glucose 148 mg/dl; Hemoglobin A1C 6.8 %
[2020-11-03] MEDS: Pantoprazole 40 MG VIAL IVP SCH ×2 (06:37→17:26)
[2020-11-03] MEDS: Insulin LISPRO 300 UNITS/3 ML VIAL SUBQ SCH ×3 (08:41→17:18)
[2020-11-03] MEDS: lisinopriL 5 MG TABLET PO SCH (11:30)
[2020-11-03] MEDS: Furosemide 20 MG/2 ML VIAL IVP SCH (11:30)
[2020-11-03] MEDS: Metoprolol XL (24 HR) Succ 25 MG TAB.ER.24H PO SCH ×2 (11:30→20:31)
[2020-11-03] MEDS ORDERED: Lidocaine -MPF 2% 5 ML VIAL ONE (11:54)
[2020-11-03] MEDS ORDERED: *HR* Propofol 200 MG/20 ML VIAL IVP ONE ×2 (11:54→12:09)
[2020-11-04] MEDS: Ondansetron ODT 4 MG TAB.RAPDIS SL PRN ×2 (00:37→12:46)
[2020-11-04] MEDS: Acetaminophen 325 MG TABLET PO PRN ×2 (00:39→07:48)
[2020-11-04] MEDS: Pantoprazole 40 MG VIAL IVP SCH (05:20)
[2020-11-04] MEDS: Insulin LISPRO 300 UNITS/3 ML VIAL SUBQ SCH ×2 (08:04→12:45)
[2020-11-04] MEDS: Metoprolol XL (24 HR) Succ 25 MG TAB.ER.24H PO SCH (09:53)
[2020-11-04] MEDS: Furosemide 20 MG/2 ML VIAL IVP SCH (09:53)
[2020-11-04] MEDS: lisinopriL 5 MG TABLET PO SCH (09:53)
[2020-11-04 11:15] VITALS: BP 130/77; PULSE 78; TEMP 97.4; O2SAT 95
[2020-11-04 13:40] LABS: Hematocrit 42.6 % (37.5-50.1)
[2020-11-04 13:41] LABS: Hemoglobin 14.1 g/dL (12.9-16.9)
== END 2020-11-04 17:05 | disposition home or self-care (01) ==
LOC: 3ANU 15:49 → EMEROOARM 15:49 → SUATTDRO 23:20 → 3ANU 11-03 00:06
PROVIDERS: ADMIT Student in an Organized Health Care Education/Training Program; ATTEND Hospitalist
PROC: ENDOEBX (2020-11-03 13:30)

== ENCOUNTER 2020-11-06 00:54 | Observation (INO) ==
[2020-11-06 04:10] LABS: Basophils # 0.1 K/mcL (0.0-0.2); Basophils % 0.5 %; Eosinophils # 0.2 K/mcL (0.0-0.6); Hematocrit 32.1 % (37.5-50.1); Immature Granulocytes % 0.5 % (0-4); Lymphocytes # 1.7 K/mcL (0.6-4.6); Mean Corpuscular HGB Conc 33.3 g/dL (31.6-35.5); Mean Corpuscular Hemoglobin 30.2 pg (28.0-33.3); Mean Corpuscular Volume 90.7 fL (83.0-100.0); Mean Platelet Volume 10.7 fL (9.4-12.4); Monocytes # 0.8 K/mcL (0.0-1.3); Monocytes % 7.9 %; Neutrophils # 7.7 K/mcL (1.6-8.9); Platelet Count 158 K/mcL (140-400); Red Blood Count 3.54 M/mcL (4.19-5.50); Red Cell Distribution Width 13.7 % (11.5-14.5); Segmented Neutrophils % 73.1 %; White Blood Count 10.6 K/mcL (4.3-11.1)
[2020-11-06 04:13] LABS: Hemoglobin 10.7 g/dL (12.9-16.9)
[2020-11-06 04:36] LABS: INR 1.5; Prothrombin Time 16.7 Seconds (9.4-12.1)
[2020-11-06 04:38] LABS: Activated Partial Thrombo Time 32.9 Seconds (26.0-36.0)
[2020-11-06 04:45] LABS: Calcium 9.3 mg/dL (8.6-10.3); Potassium 3.7 mEq/L (3.5-5.1)
[2020-11-06 05:31] LABS: Hyaline Casts,Urine Moderate per lpf (None Seen); Mucus,Urine Few per lpf (None-Few); RBC,Urine 0-3 per hpf (0-3); Squamous Epithelial Cell,Urine Few per hpf (None-Few)
[2020-11-06 05:32] LABS: Color,Urine Yellow (Yellow)
[2020-11-06 05:33] LABS: Bilirubin,Urine Negative (Negative); Blood,Urine Negative (Negative); Clarity,Urine Clear (Clear); Glucose,Urine (UA) Normal (Normal); Ketones,Urine Negative (Negative); Leukocyte Esterase,Urine Negative (Negative); Nitrite,Urine Negative (Negative); PH,Urine 5.5 pH Units (5.0-8.0); Protein,Urine Negative (Neg-Trace); Urobilinogen,Urine Normal (Normal)
[2020-11-06] MEDS ORDERED: Isovue-370 500 ML BOTTLE IVP ONE (05:51)
[2020-11-06] MEDS ORDERED: 0.9 % Sodium Chloride 1,000 ML IV ONE (05:52)
[2020-11-06] MEDS ORDERED: Ondansetron 4 MG/2 ML VIAL IVP PRN (07:17)
[2020-11-06] MEDS ORDERED: *HR* HYDROcodone/Acet 10/325 mg TABLET PO PRN (07:17)
[2020-11-06] MEDS ORDERED: Naloxone 0.4 MG/ML INJ IVP PRN (07:17)
[2020-11-06] MEDS ORDERED: *HR* HYDROcodone/Acet 5/325 mg TABLET PO PRN (07:17)
[2020-11-06] MEDS ORDERED: Ringers Solution, Lactated 1,000 ML IVC SCH (07:30)
[2020-11-06 11:58] LABS: Hematocrit 34.7 % (37.5-50.1); Hemoglobin 11.5 g/dL (12.9-16.9)
[2020-11-06] MEDS ORDERED: Nitroglycerin 0.4 MG TAB.SUBL SL PRN (15:31)
[2020-11-06] MEDS ORDERED: SODIUM CHLORIDE/NAHCO3/KCL/PEG 4,000 ML SOLN.RECON PO ONE (17:00)
[2020-11-06] MEDS: Isosorbide MONOnitrate (24 HR) 60 MG TAB.ER.24H PO SCH (17:13)
[2020-11-06 18:04] LABS: Hematocrit 31.3 % (37.5-50.1); Hemoglobin 10.5 g/dL (12.9-16.9)
[2020-11-06] MEDS: Metoprolol XL (24 HR) Succ 25 MG TAB.ER.24H PO SCH (21:10)
[2020-11-06] MEDS: Ranolazine 500 MG TAB.ER.12H PO SCH (21:10)
[2020-11-07 00:21] LABS: Hematocrit 30.4 % (37.5-50.1)
[2020-11-07] MEDS ORDERED: Lidocaine -MPF 2% 5 ML VIAL ONE (07:29)
[2020-11-07] MEDS ORDERED: EPHEDrine 50 MG/ML VIAL ONE (07:30)
[2020-11-07 08:19] LABS: Basophils # 0.1 K/mcL (0.0-0.2); Basophils % 0.8 %; Eosinophils # 0.2 K/mcL (0.0-0.6); Eosinophils % 2.8 %; Hemoglobin 11.1 g/dL (12.9-16.9); Immature Granulocytes % 0.4 % (0-4); Lymphocytes # 1.1 K/mcL (0.6-4.6); Mean Corpuscular HGB Conc 32.6 g/dL (31.6-35.5); Mean Corpuscular Hemoglobin 30.5 pg (28.0-33.3); Mean Corpuscular Volume 93.4 fL (83.0-100.0); Mean Platelet Volume 10.8 fL (9.4-12.4); Monocytes # 0.6 K/mcL (0.0-1.3); Monocytes % 8.6 %; Neutrophils # 5.4 K/mcL (1.6-8.9); Platelet Count 144 K/mcL (140-400); Red Blood Count 3.64 M/mcL (4.19-5.50); Red Cell Distribution Width 14.2 % (11.5-14.5); Segmented Neutrophils % 72.4 %; White Blood Count 7.5 K/mcL (4.3-11.1)
[2020-11-07] MEDS: Aspirin Enteric Coated 81 MG Tablet PO SCH (10:35)
[2020-11-07] MEDS: Metoprolol XL (24 HR) Succ 25 MG TAB.ER.24H PO SCH ×2 (10:35→21:53)
[2020-11-07] MEDS: Isosorbide MONOnitrate (24 HR) 60 MG TAB.ER.24H PO SCH (10:35)
[2020-11-07] MEDS: Ranolazine 500 MG TAB.ER.12H PO SCH ×2 (10:35→21:52)
[2020-11-07 10:47] LABS: Calcium 9.2 mg/dL (8.6-10.3); Potassium 4.8 mEq/L (3.5-5.1)
[2020-11-08 07:25] VITALS: BP 144/78; PULSE 64; TEMP 97.8; O2SAT 97
[2020-11-08] MEDS: Metoprolol XL (24 HR) Succ 25 MG TAB.ER.24H PO SCH (09:58)
[2020-11-08] MEDS: Aspirin Enteric Coated 81 MG Tablet PO SCH (09:58)
[2020-11-08] MEDS: Ranolazine 500 MG TAB.ER.12H PO SCH (09:58)
[2020-11-08] MEDS: Isosorbide MONOnitrate (24 HR) 60 MG TAB.ER.24H PO SCH (09:58)
[2020-11-08 12:06] LABS: Hematocrit 34.3 % (37.5-50.1); Hemoglobin 11.1 g/dL (12.9-16.9); Mean Corpuscular HGB Conc 32.4 g/dL (31.6-35.5); Mean Corpuscular Volume 92.7 fL (83.0-100.0); Mean Platelet Volume 11.1 fL (9.4-12.4); Platelet Count 156 K/mcL (140-400); Red Cell Distribution Width 14.4 % (11.5-14.5); White Blood Count 6.9 K/mcL (4.3-11.1)
[2020-11-08 12:25] LABS: BUN/Creatinine Ratio 15 (6-26); Blood Urea Nitrogen 20 mg/dL (8-23); Calcium 9.7 mg/dL (8.6-10.3); Carbon Dioxide 23 mEq/L (23-29); Chloride 107 mEq/L (98-107); Glucose 153 mg/dL (70-105); Osmolality,Calculated 290 (280-300); Potassium 4.2 mEq/L (3.5-5.1); Sodium 137 mEq/L (136-145); eGFR For African Americans > 60 (> 60); eGFR For Non-African Americans 51 (> 60)
== END 2020-11-08 11:20 | disposition home health service (06) ==
LOC: CDU 00:54 → EMEROOARM 00:54 → SUATTDRO 09:29 → CDU 10:34 → 3NENU 11-07 17:54
PROVIDERS: ADMIT General Practice; ATTEND Internal Medicine
PROC: ENDOCBX (2020-11-07 08:00)

== ENCOUNTER 2020-11-19 03:23 | Observation (INO) ==
[2020-11-19] MEDS ORDERED: Aspirin 325 MG TABLET PO ONE (03:29)
[2020-11-19 04:03] LABS: Basophils # 0.1 K/mcL (0.0-0.2); Basophils % 0.7 %; Eosinophils # 0.2 K/mcL (0.0-0.6); Eosinophils % 2.4 %; Hematocrit 34.2 % (37.5-50.1); Hemoglobin 10.9 g/dL (12.9-16.9); Immature Granulocytes % 0.3 % (0-4); Lymphocytes # 1.2 K/mcL (0.6-4.6); Lymphocytes % 15.8 %; Mean Corpuscular HGB Conc 31.9 g/dL (31.6-35.5); Mean Corpuscular Hemoglobin 29.3 pg (28.0-33.3); Mean Corpuscular Volume 91.9 fL (83.0-100.0); Mean Platelet Volume 10.4 fL (9.4-12.4); Monocytes # 0.6 K/mcL (0.0-1.3); Monocytes % 8.1 %; Neutrophils # 5.5 K/mcL (1.6-8.9); Platelet Count 181 K/mcL (140-400); Red Blood Count 3.72 M/mcL (4.19-5.50); Red Cell Distribution Width 14.4 % (11.5-14.5); Segmented Neutrophils % 72.7 %; White Blood Count 7.5 K/mcL (4.3-11.1)
[2020-11-19 04:28] LABS: Calcium 9.3 mg/dL (8.6-10.3); Potassium 4.1 mEq/L (3.5-5.1); Troponin I 0.03 ng/mL (< 0.04)
[2020-11-19 05:04] LABS: Albumin 3.9 g/dL (3.5-5.7); Albumin/Globulin Ratio 1.3 (1.1-2.2); Bilirubin,Direct 0.1 mg/dL (0.0-0.2); Bilirubin,Indirect 0.4 mg/dL (0.0-1.0); Bilirubin,Total 0.5 mg/dL (0.3-1.0); Globulin 3.1 g/dL (2.4-3.5)
[2020-11-19 05:36] LABS: Influenza A PCR Negative (Negative); Influenza B PCR Negative (Negative); Resp. Syncytial Virus PCR Negative (Negative)
[2020-11-19 05:39] LABS: SARS-CoV-2 by PCR (In House) Negative (Negative)
[2020-11-19] MEDS ORDERED: Furosemide 40 MG/4 ML VIAL IVP ONE (07:18)
[2020-11-19] MEDS ORDERED: Naloxone 0.4 MG/ML INJ IVP PRN (08:58)
[2020-11-19] MEDS ORDERED: Ondansetron 4 MG/2 ML VIAL IVP PRN (08:58)
[2020-11-19] MEDS ORDERED: Isovue-370 500 ML BOTTLE IVP ONE (12:24)
[2020-11-19] MEDS: Metoclopramide 10 MG/2 ML VIAL IVP SCH ×2 (13:13→17:43)
[2020-11-19] MEDS: Pantoprazole 40 MG VIAL IVP SCH (17:42)
[2020-11-19] MEDS: Metoprolol XL (24 HR) Succ 25 MG TAB.ER.24H PO SCH (21:18)
[2020-11-19] MEDS: Furosemide 40 MG/4 ML VIAL IVP SCH (21:19)
[2020-11-19] MEDS: Ranolazine 500 MG TAB.ER.12H PO SCH (21:19)
[2020-11-20] MEDS: Metoclopramide 10 MG/2 ML VIAL IVP SCH ×3 (00:17→11:11)
[2020-11-20 02:56] LABS: Basophils # 0.1 K/mcL (0.0-0.2); Basophils % 0.8 %; Eosinophils # 0.2 K/mcL (0.0-0.6); Eosinophils % 2.5 %; Hematocrit 36.2 % (37.5-50.1); Hemoglobin 11.6 g/dL (12.9-16.9); Immature Granulocytes % 0.2 % (0-4); Lymphocytes % 11.1 %; Mean Corpuscular Hemoglobin 29.1 pg (28.0-33.3); Mean Corpuscular Volume 90.7 fL (83.0-100.0); Mean Platelet Volume 10.6 fL (9.4-12.4); Monocytes # 0.8 K/mcL (0.0-1.3); Monocytes % 9.3 %; Neutrophils # 6.5 K/mcL (1.6-8.9); Platelet Count 200 K/mcL (140-400); Red Blood Count 3.99 M/mcL (4.19-5.50); Red Cell Distribution Width 14.4 % (11.5-14.5); Segmented Neutrophils % 76.1 %; White Blood Count 8.6 K/mcL (4.3-11.1)
[2020-11-20 03:16] LABS: BUN/Creatinine Ratio 17 (6-26); Blood Urea Nitrogen 22 mg/dL (8-23); Calcium 9.5 mg/dL (8.6-10.3); Carbon Dioxide 25 mEq/L (23-29); Chloride 104 mEq/L (98-107); Glucose 127 mg/dL (70-105); Magnesium 2.1 mg/dL (1.6-2.6); Osmolality,Calculated 293 (280-300); Phosphorous 2.6 mg/dL (2.7-4.5); Potassium 3.5 mEq/L (3.5-5.1); Sodium 139 mEq/L (136-145); eGFR For African Americans > 60 (> 60); eGFR For Non-African Americans 53 (> 60)
[2020-11-20] MEDS: Pantoprazole 40 MG VIAL IVP SCH ×2 (05:18→17:40)
[2020-11-20] MEDS: Isosorbide MONOnitrate (24 HR) 60 MG TAB.ER.24H PO SCH (08:08)
[2020-11-20] MEDS: Metoprolol XL (24 HR) Succ 25 MG TAB.ER.24H PO SCH ×2 (08:08→20:50)
[2020-11-20] MEDS: Furosemide 40 MG/4 ML VIAL IVP SCH ×2 (08:08→17:40)
[2020-11-20] MEDS: Ranolazine 500 MG TAB.ER.12H PO SCH ×2 (08:08→20:50)
[2020-11-20] MEDS: Aspirin Enteric Coated 81 MG Tablet PO SCH (08:08)
[2020-11-20] MEDS ORDERED: *HR* Rivaroxaban 10 MG TABLET PO SCH (09:00)
[2020-11-21 05:40] LABS: Basophils # 0.1 K/mcL (0.0-0.2); Basophils % 0.8 %; Eosinophils # 0.2 K/mcL (0.0-0.6); Eosinophils % 3.7 %; Hematocrit 34.1 % (37.5-50.1); Immature Granulocytes % 0.3 % (0-4); Lymphocytes % 14.8 %; Mean Corpuscular HGB Conc 32.3 g/dL (31.6-35.5); Mean Platelet Volume 10.3 fL (9.4-12.4); Monocytes # 0.7 K/mcL (0.0-1.3); Monocytes % 10.7 %; Neutrophils # 4.5 K/mcL (1.6-8.9); Platelet Count 189 K/mcL (140-400); Red Blood Count 3.79 M/mcL (4.19-5.50); Red Cell Distribution Width 14.1 % (11.5-14.5); Segmented Neutrophils % 69.7 %; White Blood Count 6.4 K/mcL (4.3-11.1)
[2020-11-21 05:47] LABS: INR 2.4; Prothrombin Time 27.6 Seconds (9.4-12.1)
[2020-11-21 06:02] LABS: Albumin 3.5 g/dL (3.5-5.7); Albumin/Globulin Ratio 1.1 (1.1-2.2); Bilirubin,Total 1.3 mg/dL (0.3-1.0); Calcium 9.4 mg/dL (8.6-10.3); Globulin 3.2 g/dL (2.4-3.5); Phosphorous 3.5 mg/dL (2.7-4.5); Potassium 3.7 mEq/L (3.5-5.1); Total Protein 6.7 g/dL (6.4-8.9)
[2020-11-21] MEDS: Pantoprazole 40 MG VIAL IVP SCH (07:32)
[2020-11-21] MEDS: Morphine Sulfate 2 MG/ML SYRINGE IVP ONE ×2 (07:32→08:13)
[2020-11-21] MEDS: Metoprolol XL (24 HR) Succ 25 MG TAB.ER.24H PO SCH (08:21)
[2020-11-21] MEDS: Ranolazine 500 MG TAB.ER.12H PO SCH (08:21)
[2020-11-21] MEDS: Isosorbide MONOnitrate (24 HR) 60 MG TAB.ER.24H PO SCH (08:21)
[2020-11-21] MEDS: Aspirin Enteric Coated 81 MG Tablet PO SCH (08:21)
[2020-11-21] MEDS: Furosemide 40 MG/4 ML VIAL IVP SCH (10:04)
[2020-11-21 11:04] VITALS: PULSE 80; TEMP 97.5
[2020-11-21 11:06] VITALS: BP 125/74; O2SAT 96
[2020-11-21] MEDS ORDERED: *HR* Rivaroxaban 10 MG TABLET PO SCH (17:00)
== END 2020-11-21 17:00 | disposition home health service (06) ==
LOC: 2ANU 03:23 → EMEROOARM 03:23 → SUATTDRO 10:32 → 2ANU 11:40
PROVIDERS: ADMIT Internal Medicine; ATTEND Internal Medicine

== ENCOUNTER 2020-12-08 04:14 | Observation (INO) ==
[2020-12-08] MEDS ORDERED: Isovue-370 500 ML BOTTLE IVP ONE (04:31)
[2020-12-08 05:22] LABS: Bilirubin,Urine Negative (Negative); Blood,Urine Negative (Negative); Clarity,Urine Clear (Clear); Color,Urine Light-Yellow (Yellow); Glucose,Urine (UA) Normal (Normal); Ketones,Urine Negative (Negative); Leukocyte Esterase,Urine Negative (Negative); Mucus,Urine Few per lpf (None-Few); Nitrite,Urine Negative (Negative); Protein,Urine 70 mg/dL (Neg-Trace); RBC,Urine 0-3 per hpf (0-3); Specific Gravity,Urine 1.028 (1.010-1.025); Squamous Epithelial Cell,Urine Few per hpf (None-Few); Urobilinogen,Urine Normal (Normal); WBC,Urine 0-3 per hpf (0-3)
[2020-12-08 05:23] LABS: Basophils % 0.5 %; Eosinophils # 0.2 K/mcL (0.0-0.6); Eosinophils % 1.9 %; Hematocrit 31.9 % (37.5-50.1); Hemoglobin 9.8 g/dL (12.9-16.9); Immature Granulocytes % 0.4 % (0-4); Lymphocytes # 0.9 K/mcL (0.6-4.6); Lymphocytes % 10.3 %; Mean Corpuscular HGB Conc 30.7 g/dL (31.6-35.5); Mean Corpuscular Hemoglobin 27.7 pg (28.0-33.3); Mean Corpuscular Volume 90.1 fL (83.0-100.0); Mean Platelet Volume 10.1 fL (9.4-12.4); Monocytes # 0.6 K/mcL (0.0-1.3); Monocytes % 7.6 %; Neutrophils # 6.7 K/mcL (1.6-8.9); Platelet Count 206 K/mcL (140-400); Red Blood Count 3.54 M/mcL (4.19-5.50); Red Cell Distribution Width 14.6 % (11.5-14.5); Segmented Neutrophils % 79.3 %; White Blood Count 8.4 K/mcL (4.3-11.1)
[2020-12-08 05:40] LABS: Alanine Aminotransferase 10 Units/L (7-52); Albumin/Globulin Ratio 1.3 (1.1-2.2); Alkaline Phosphatase 91 Units/L (34-104); Aspartate Amino Transferase 13 Units/L (13-39); BUN/Creatinine Ratio 18 (6-26); Bilirubin,Direct 0.1 mg/dL (0.0-0.2); Bilirubin,Indirect 0.4 mg/dL (0.0-1.0); Bilirubin,Total 0.5 mg/dL (0.3-1.0); Blood Urea Nitrogen 24 mg/dL (8-23); Calcium 9.6 mg/dL (8.6-10.3); Carbon Dioxide 27 mEq/L (23-29); Chloride 104 mEq/L (98-107); Glucose 159 mg/dL (70-105); Lipase 19 Units/L (11-82); Osmolality,Calculated 297 (280-300); Potassium 3.8 mEq/L (3.5-5.1); Sodium 140 mEq/L (136-145); Troponin I 0.16 ng/mL (< 0.04); eGFR For African Americans > 60 (> 60); eGFR For Non-African Americans 52 (> 60)
[2020-12-08] MEDS ORDERED: Aspirin 81 MG TAB.CHEW PO ONE (06:39)
[2020-12-08] MEDS ORDERED: *HR* Heparin 5,000 UNIT/ML VIAL IVP PRN ×2 (06:39)
[2020-12-08] MEDS ORDERED: *HR* FentaNYL (PF) 100 MCG/2 ML VIAL IVP ONE (06:39)
[2020-12-08] MEDS ORDERED: *HR* Heparin 5,000 UNIT/ML VIAL IVP ONE (06:39)
[2020-12-08] MEDS ORDERED: Heparin 25,000UNIT/250ML 1/2NS 25,000 UNIT/250 ML IV.SOLN IVC SCH (06:45)
[2020-12-08 07:24] LABS: Heparin anti-factor XA UFH 0.88 IU/mL (0.30-0.70)
[2020-12-08 07:25] LABS: INR 1.4; Prothrombin Time 15.8 Seconds (9.4-12.1)
[2020-12-08 08:03] LABS: Hematocrit 32.7 % (37.5-50.1); Mean Corpuscular HGB Conc 30.6 g/dL (31.6-35.5); Mean Corpuscular Hemoglobin 27.5 pg (28.0-33.3); Mean Corpuscular Volume 90.1 fL (83.0-100.0); Mean Platelet Volume 10.2 fL (9.4-12.4); Platelet Count 225 K/mcL (140-400); Red Blood Count 3.63 M/mcL (4.19-5.50); Red Cell Distribution Width 14.6 % (11.5-14.5); White Blood Count 10.1 K/mcL (4.3-11.1)
[2020-12-08] MEDS: Heparin 25,000UNIT/250ML 1/2NS 25,000 UNIT/250 ML IV.SOLN IVC SCH (09:04)
[2020-12-08] MEDS ORDERED: Naloxone 0.4 MG/ML INJ IVP PRN (09:37)
[2020-12-08] MEDS ORDERED: *HR* Promethazine 25 MG/ML VIAL IM PRN (09:37)
[2020-12-08] MEDS ORDERED: Ipratropium/Albuterol Neb 3 ML IH PRN (09:40)
[2020-12-08] MEDS: Metoprolol XL (24 HR) Succ 25 MG TAB.ER.24H PO SCH ×2 (11:29→20:55)
[2020-12-08] MEDS: Furosemide 20 MG/2 ML VIAL IVP SCH ×3 (11:29→22:33)
[2020-12-08] MEDS: Isosorbide MONOnitrate (24 HR) 60 MG TAB.ER.24H PO SCH (11:29)
[2020-12-08 11:52] LABS: Lactate Dehydrogenase 188 Units/L (140-271); Troponin I 0.16 ng/mL (< 0.04)
[2020-12-08] MEDS: Albumin 25% 25gram/100mL 25 GM/100 ML IV.SOLN IVPB SCH ×2 (15:42→23:30)
[2020-12-08 16:07] LABS: Total Protein,Pleural Fluid 2.2 g/dL
[2020-12-08] MEDS: Acetaminophen 325 MG TABLET PO PRN (16:29)
[2020-12-08 17:50] LABS: RBC,Pleural Fluid 6000 RBC/mcL
[2020-12-08 18:47] LABS: Appearance of Pleural Fl Cloudy (Clear)
[2020-12-08 18:50] LABS: Basophils,Pleural Fluid 0 %; Eosinophils,Pleural Fluid 0 %
[2020-12-08 23:33] LABS: Adenovirus Not Detected (Not Detect); Bordetella Pertussis Not Detected (Not Detect); Chlamydophila pneumoniae Not Detected (Not Detect); Coronavirus 229E Not Detected (Not Detect); Coronavirus HKU1 Not Detected (Not Detect); Coronavirus NL63 Not Detected (Not Detect); Coronavirus OC43 Not Detected (Not Detect); Human Metapneumovirus Not Detected (Not Detect); Human Rhinovirus/Enterovirus Not Detected (Not Detect); Influenza A Subtype 2009 H1 Not Detected (Not Detect); Influenza B Not Detected (Not Detect); Mycoplasma pneumoniae Not Detected (Not Detect); Parainfluenza Virus 1 Not Detected (Not Detect); Parainfluenza Virus 2 Not Detected (Not Detect); Parainfluenza Virus 3 Not Detected (Not Detect); Parainfluenza Virus 4 Not Detected (Not Detect); Respiratory Syncytial Virus Not Detected (Not Detect); SARS-CoV-2 Not Detected (Not Detect)
[2020-12-09 02:29] LABS: Hematocrit 28.6 % (37.5-50.1); Mean Corpuscular HGB Conc 31.5 g/dL (31.6-35.5); Mean Corpuscular Hemoglobin 28.2 pg (28.0-33.3); Mean Corpuscular Volume 89.7 fL (83.0-100.0); Mean Platelet Volume 10.2 fL (9.4-12.4); Platelet Count 217 K/mcL (140-400); Red Blood Count 3.19 M/mcL (4.19-5.50); Red Cell Distribution Width 14.4 % (11.5-14.5); White Blood Count 8.6 K/mcL (4.3-11.1)
[2020-12-09 02:39] LABS: Calcium 9.4 mg/dL (8.6-10.3); Phosphorous 2.9 mg/dL (2.7-4.5); Potassium 3.5 mEq/L (3.5-5.1)
[2020-12-09] MEDS ORDERED: Nitroglycerin 0.4 MG TAB.SUBL SL PRN (03:00)
[2020-12-09] MEDS ORDERED: Nitroglycerin 0.4 MG TAB.SUBL SL ONE (03:04)
[2020-12-09] MEDS: Furosemide 20 MG/2 ML VIAL IVP SCH (08:40)
[2020-12-09] MEDS: Albumin 25% 25gram/100mL 25 GM/100 ML IV.SOLN IVPB SCH ×2 (08:41→18:42)
[2020-12-09] MEDS: Isosorbide MONOnitrate (24 HR) 60 MG TAB.ER.24H PO SCH (08:41)
[2020-12-09] MEDS: Ranolazine 500 MG TAB.ER.12H PO SCH ×2 (08:41→19:54)
[2020-12-09] MEDS: Spironolactone 25 MG TABLET PO SCH (08:42)
[2020-12-09] MEDS: Aspirin Enteric Coated 81 MG Tablet PO SCH (08:42)
[2020-12-09] MEDS: Metoprolol XL (24 HR) Succ 25 MG TAB.ER.24H PO SCH ×2 (08:42→19:55)
[2020-12-09] MEDS: lisinopriL 5 MG TABLET PO SCH (08:42)
[2020-12-09] MEDS: Heparin 25,000UNIT/250ML 1/2NS 25,000 UNIT/250 ML IV.SOLN IVC SCH (11:36)
[2020-12-09] MEDS: Furosemide 40 MG TABLET PO SCH (18:41)
[2020-12-09] MEDS: Acetaminophen 325 MG TABLET PO PRN (18:42)
[2020-12-10] MEDS: lisinopriL 5 MG TABLET PO SCH (08:18)
[2020-12-10] MEDS: Ranolazine 500 MG TAB.ER.12H PO SCH (08:22)
[2020-12-10] MEDS: Aspirin Enteric Coated 81 MG Tablet PO SCH (08:22)
[2020-12-10] MEDS: Furosemide 40 MG TABLET PO SCH ×2 (08:22→16:32)
[2020-12-10] MEDS: Isosorbide MONOnitrate (24 HR) 60 MG TAB.ER.24H PO SCH (08:22)
[2020-12-10] MEDS: Spironolactone 25 MG TABLET PO SCH (08:22)
[2020-12-10] MEDS: Metoprolol XL (24 HR) Succ 25 MG TAB.ER.24H PO SCH (08:22)
[2020-12-10] MEDS: Heparin 25,000UNIT/250ML 1/2NS 25,000 UNIT/250 ML IV.SOLN IVC SCH (08:25)
[2020-12-10] MEDS: Acetaminophen 325 MG TABLET PO PRN ×2 (16:32→23:11)
[2020-12-11] MEDS: Ranolazine 500 MG TAB.ER.12H PO SCH ×2 (02:11→08:04)
[2020-12-11] MEDS: Metoprolol XL (24 HR) Succ 25 MG TAB.ER.24H PO SCH ×2 (02:35→08:03)
[2020-12-11] MEDS: Acetaminophen 325 MG TABLET PO PRN (05:36)
[2020-12-11 06:52] VITALS: BP 130/68; PULSE 67; TEMP 98.2; O2SAT 97
[2020-12-11] MEDS: Isosorbide MONOnitrate (24 HR) 60 MG TAB.ER.24H PO SCH (08:02)
[2020-12-11] MEDS: Aspirin Enteric Coated 81 MG Tablet PO SCH (08:02)
[2020-12-11] MEDS: Furosemide 40 MG TABLET PO SCH (08:03)
[2020-12-11] MEDS: Spironolactone 25 MG TABLET PO SCH (08:04)
[2020-12-11] MEDS ORDERED: lisinopriL 5 MG TABLET PO SCH (09:00)
[2020-12-11] MEDS ORDERED: *HR* Rivaroxaban 10 MG TABLET PO SCH (09:00)
== END 2020-12-11 12:13 | disposition home health service (06) ==
LOC: SUATTDRO → EMEROOARM 04:14 → 3BNU 04:14 → SUATTDRO 09:24 → 3BNU 11:05
PROVIDERS: ADMIT Internal Medicine; ATTEND Hospitalist

== ENCOUNTER 2020-12-26 08:19 | Inpatient (IN) ==
[2020-12-26 09:22] LABS: Basophils % 0.3 %; Eosinophils % 0.3 %; Hematocrit 29.2 % (37.5-50.1); Hemoglobin 8.8 g/dL (12.9-16.9); Immature Granulocytes % 0.9 % (0-4); Lymphocytes # 0.2 K/mcL (0.6-4.6); Mean Corpuscular HGB Conc 30.1 g/dL (31.6-35.5); Mean Corpuscular Hemoglobin 25.8 pg (28.0-33.3); Mean Corpuscular Volume 85.6 fL (83.0-100.0); Mean Platelet Volume 10.3 fL (9.4-12.4); Monocytes # 0.3 K/mcL (0.0-1.3); Monocytes % 8.1 %; Neutrophils # 2.8 K/mcL (1.6-8.9); Platelet Count 144 K/mcL (140-400); Red Blood Count 3.41 M/mcL (4.19-5.50); Red Cell Distribution Width 15.5 % (11.5-14.5); Segmented Neutrophils % 84.4 %; White Blood Count 3.4 K/mcL (4.3-11.1)
[2020-12-26 09:57] LABS: Albumin 3.8 g/dL (3.5-5.7); Albumin/Globulin Ratio 1.2 (1.1-2.2); Bilirubin,Total 0.6 mg/dL (0.3-1.0); Calcium 9.1 mg/dL (8.6-10.3); Globulin 3.1 g/dL (2.4-3.5); Potassium 4.1 mEq/L (3.5-5.1); Total Protein 6.9 g/dL (6.4-8.9); Troponin I 0.14 ng/mL (< 0.04)
[2020-12-26] MEDS ORDERED: Acetaminophen 325 MG TABLET PO ONE (14:10)
[2020-12-26] MEDS ORDERED: Aspirin 325 MG TABLET PO ONE (14:52)
[2020-12-26] MEDS ORDERED: Furosemide 40 MG/4 ML VIAL IVP ONE (14:53)
[2020-12-26] MEDS ORDERED: Naloxone 0.4 MG/ML INJ IVP PRN (16:10)
[2020-12-26] MEDS ORDERED: Ondansetron 4 MG/2 ML VIAL IVP PRN (16:10)
[2020-12-26] MEDS ORDERED: *HR* Heparin 5,000 UNIT/ML VIAL IVP ONE (16:19)
[2020-12-26] MEDS ORDERED: *HR* Heparin 5,000 UNIT/ML VIAL IVP PRN ×3 (16:19→16:25)
[2020-12-26] MEDS ORDERED: Nitroglycerin 0.4 MG TAB.SUBL SL PRN (16:23)
[2020-12-26] MEDS ORDERED: Heparin 25,000UNIT/250ML 1/2NS 25,000 UNIT/250 ML IV.SOLN IVC SCH (16:30)
[2020-12-26 17:27] LABS: Hematocrit 28.9 % (37.5-50.1); Hemoglobin 8.9 g/dL (12.9-16.9); Mean Corpuscular HGB Conc 30.8 g/dL (31.6-35.5); Mean Corpuscular Hemoglobin 26.3 pg (28.0-33.3); Mean Corpuscular Volume 85.3 fL (83.0-100.0); Mean Platelet Volume 9.5 fL (9.4-12.4); Platelet Count 143 K/mcL (140-400); Red Blood Count 3.39 M/mcL (4.19-5.50); Red Cell Distribution Width 15.6 % (11.5-14.5)
[2020-12-26 17:33] LABS: Heparin anti-factor XA UFH 0.12 IU/mL (0.30-0.70); INR 1.4; Prothrombin Time 15.8 Seconds (9.4-12.1)
[2020-12-26 17:36] LABS: Activated Partial Thrombo Time 34.3 Seconds (26.0-36.0)
[2020-12-26] MEDS ORDERED: D5% in Water 1,000 ML IVC PRN (18:19)
[2020-12-26] MEDS ORDERED: *HR* Dextrose 50 % in Water (Syg) 50 ML SYRINGE IVP PRN (18:19)
[2020-12-26] MEDS ORDERED: Dextrose Gel 15 GM/37.5 ML TUBE PO PRN ×2 (18:19)
[2020-12-26] MEDS: Heparin 25,000UNIT/250ML 1/2NS 25,000 UNIT/250 ML IV.SOLN IVC SCH (18:40)
[2020-12-26] MEDS: Acetaminophen 325 MG TABLET PO PRN (20:27)
[2020-12-26] MEDS: Insulin LISPRO 300 UNITS/3 ML VIAL SUBQ SCH (20:31)
[2020-12-27] MEDS ORDERED: *HR* HYDROcodone/Acet 5/325 mg TABLET PO ONE
[2020-12-27 03:31] LABS: Basophils % 0.2 %; Eosinophils % 0.4 %; Hematocrit 29.4 % (37.5-50.1); Immature Granulocytes % 0.7 % (0-4); Lymphocytes # 0.4 K/mcL (0.6-4.6); Lymphocytes % 9.2 %; Mean Corpuscular HGB Conc 30.6 g/dL (31.6-35.5); Mean Corpuscular Hemoglobin 26.1 pg (28.0-33.3); Mean Corpuscular Volume 85.2 fL (83.0-100.0); Mean Platelet Volume 10.5 fL (9.4-12.4); Monocytes # 0.2 K/mcL (0.0-1.3); Monocytes % 3.8 %; Neutrophils # 3.8 K/mcL (1.6-8.9); Platelet Count 159 K/mcL (140-400); Red Blood Count 3.45 M/mcL (4.19-5.50); Red Cell Distribution Width 15.6 % (11.5-14.5); Segmented Neutrophils % 85.7 %; White Blood Count 4.5 K/mcL (4.3-11.1)
[2020-12-27 03:46] LABS: Potassium 3.8 mEq/L (3.5-5.1)
[2020-12-27 03:47] LABS: Albumin 3.7 g/dL (3.5-5.7); Albumin/Globulin Ratio 1.2 (1.1-2.2); Bilirubin,Direct 0.2 mg/dL (0.0-0.2); Bilirubin,Indirect 0.5 mg/dL (0.0-1.0); Bilirubin,Total 0.7 mg/dL (0.3-1.0); Total Protein 6.7 g/dL (6.4-8.9)
[2020-12-27 04:00] LABS: Troponin I 0.38 ng/mL (< 0.04)
[2020-12-27 04:01] LABS: Thyroid Stimulating Hormone 2.053 mcIU/mL (0.340-5.600)
[2020-12-27 04:09] LABS: Folate 12.9 ng/mL (3.0-16.0)
[2020-12-27 05:00] LABS: Estimated Average Glucose 157 mg/dl; Hemoglobin A1C 7.1 %
[2020-12-27] MEDS: Insulin LISPRO 300 UNITS/3 ML VIAL SUBQ SCH ×4 (08:40→21:22)
[2020-12-27] MEDS: Aspirin Enteric Coated 81 MG Tablet PO SCH (08:44)
[2020-12-27] MEDS: Acetaminophen 325 MG TABLET PO PRN (08:44)
[2020-12-27] MEDS: Isosorbide MONOnitrate (24 HR) 60 MG TAB.ER.24H PO SCH (08:45)
[2020-12-27] MEDS: Metoprolol XL (24 HR) Succ 25 MG TAB.ER.24H PO SCH ×2 (08:45→19:40)
[2020-12-27] MEDS: lisinopriL 5 MG TABLET PO SCH (08:45)
[2020-12-27] MEDS ORDERED: Ranolazine 500 MG TAB.ER.12H PO SCH (09:00)
[2020-12-27] MEDS ORDERED: Perflutren Lipid Microsphere 1.3 ML in 0.9 % Sodium Chloride 8.7 ML IVP PRN (15:41)
[2020-12-27] MEDS: Ranolazine 500 MG TAB.ER.12H PO SCH (19:42)
[2020-12-27] MEDS: *HR* HYDROcodone/Acet 5/325 mg TABLET PO PRN (19:42)
[2020-12-28] MEDS: Heparin 25,000UNIT/250ML 1/2NS 25,000 UNIT/250 ML IV.SOLN IVC SCH ×2 (00:17→16:36)
[2020-12-28 01:28] LABS: Hematocrit 25.3 % (37.5-50.1); Hemoglobin 7.8 g/dL (12.9-16.9); Immature Granulocytes % 0.5 % (0-4); Lymphocytes # 0.4 K/mcL (0.6-4.6); Lymphocytes % 6.1 %; Mean Corpuscular HGB Conc 30.8 g/dL (31.6-35.5); Mean Corpuscular Hemoglobin 25.7 pg (28.0-33.3); Mean Corpuscular Volume 83.5 fL (83.0-100.0); Mean Platelet Volume 10.1 fL (9.4-12.4); Monocytes # 0.2 K/mcL (0.0-1.3); Monocytes % 2.8 %; Neutrophils # 5.8 K/mcL (1.6-8.9); Platelet Count 154 K/mcL (140-400); Red Blood Count 3.03 M/mcL (4.19-5.50); Segmented Neutrophils % 90.6 %; White Blood Count 6.4 K/mcL (4.3-11.1)
[2020-12-28 01:44] LABS: BUN/Creatinine Ratio 26 (6-26); Blood Urea Nitrogen 32 mg/dL (8-23); Calcium 8.4 mg/dL (8.6-10.3); Carbon Dioxide 24 mEq/L (23-29); Chloride 105 mEq/L (98-107); Glucose 123 mg/dL (70-105); Osmolality,Calculated 294 (280-300); Potassium 3.9 mEq/L (3.5-5.1); Sodium 138 mEq/L (136-145); eGFR For African Americans > 60 (> 60); eGFR For Non-African Americans 55 (> 60)
[2020-12-28] MEDS: Insulin LISPRO 300 UNITS/3 ML VIAL SUBQ SCH ×4 (07:20→20:40)
[2020-12-28] MEDS ORDERED: Furosemide 40 MG/4 ML VIAL IVP ONE (07:51)
[2020-12-28] MEDS: Ranolazine 500 MG TAB.ER.12H PO SCH ×2 (08:20→20:41)
[2020-12-28] MEDS: Aspirin Enteric Coated 81 MG Tablet PO SCH (08:20)
[2020-12-28] MEDS: *HR* Rivaroxaban 10 MG TABLET PO SCH (08:21)
[2020-12-28] MEDS: lisinopriL 5 MG TABLET PO SCH (08:28)
[2020-12-28] MEDS: Metoprolol XL (24 HR) Succ 25 MG TAB.ER.24H PO SCH ×2 (08:28→20:41)
[2020-12-28] MEDS: Isosorbide MONOnitrate (24 HR) 60 MG TAB.ER.24H PO SCH (08:28)
[2020-12-28 12:15] LABS: Adenovirus Not Detected (Not Detect); Bordetella Pertussis Not Detected (Not Detect); Chlamydophila pneumoniae Not Detected (Not Detect); Coronavirus 229E Not Detected (Not Detect); Coronavirus HKU1 Not Detected (Not Detect); Coronavirus NL63 Not Detected (Not Detect); Coronavirus OC43 Not Detected (Not Detect); Human Metapneumovirus Not Detected (Not Detect); Human Rhinovirus/Enterovirus Not Detected (Not Detect); Influenza A Subtype 2009 H1 Not Detected (Not Detect); Influenza B Not Detected (Not Detect); Mycoplasma pneumoniae Not Detected (Not Detect); Parainfluenza Virus 1 Not Detected (Not Detect); Parainfluenza Virus 2 Not Detected (Not Detect); Parainfluenza Virus 3 Not Detected (Not Detect); Parainfluenza Virus 4 Not Detected (Not Detect); Respiratory Syncytial Virus Not Detected (Not Detect)
[2020-12-28 12:16] LABS: SARS-CoV-2 DETECTED (Not Detect)
[2020-12-28] MEDS ORDERED: Remdesivir 200 MG in 0.9 % Sodium Chloride 100 ML IVPB ONE (14:00)
[2020-12-28] MEDS: Ipratropium 1 PUFF INHALER IH SCH ×2 (15:33→22:25)
[2020-12-28] MEDS: *HR* HYDROcodone/Acet 5/325 mg TABLET PO PRN (17:32)
[2020-12-29 02:23] LABS: Basophils % 0.2 %; Eosinophils % 0.2 %; Hematocrit 28.7 % (37.5-50.1); Hemoglobin 8.9 g/dL (12.9-16.9); Immature Granulocytes % 0.7 % (0-4); Lymphocytes # 0.6 K/mcL (0.6-4.6); Lymphocytes % 10.8 %; Mean Corpuscular Volume 83.9 fL (83.0-100.0); Mean Platelet Volume 9.7 fL (9.4-12.4); Monocytes # 0.3 K/mcL (0.0-1.3); Monocytes % 4.8 %; Nucleated Red Blood Cells 0.4 /100 WBC (0); Platelet Count 169 K/mcL (140-400); Red Blood Count 3.42 M/mcL (4.19-5.50); Red Cell Distribution Width 16.1 % (11.5-14.5); Segmented Neutrophils % 83.3 %; White Blood Count 5.6 K/mcL (4.3-11.1)
[2020-12-29 02:24] LABS: Neutrophils # 4.7 K/mcL (1.6-8.9)
[2020-12-29 02:43] LABS: Alanine Aminotransferase 9 Units/L (7-52); Albumin 3.4 g/dL (3.5-5.7); Albumin/Globulin Ratio 1.2 (1.1-2.2); Alkaline Phosphatase 55 Units/L (34-104); Aspartate Amino Transferase 26 Units/L (13-39); BUN/Creatinine Ratio 28 (6-26); Bilirubin,Direct 0.2 mg/dL (0.0-0.2); Bilirubin,Indirect 0.6 mg/dL (0.0-1.0); Bilirubin,Total 0.8 mg/dL (0.3-1.0); Blood Urea Nitrogen 37 mg/dL (8-23); Calcium 8.9 mg/dL (8.6-10.3); Carbon Dioxide 23 mEq/L (23-29); Chloride 104 mEq/L (98-107); Globulin 2.9 g/dL (2.4-3.5); Glucose 101 mg/dL (70-105); Magnesium 2.1 mg/dL (1.6-2.6); Osmolality,Calculated 293 (280-300); Potassium 4.1 mEq/L (3.5-5.1); Sodium 137 mEq/L (136-145); Total Protein 6.3 g/dL (6.4-8.9); eGFR For African Americans > 60 (> 60); eGFR For Non-African Americans 51 (> 60)
[2020-12-29] MEDS: Ipratropium 1 PUFF INHALER IH SCH ×4 (03:55→22:03)
[2020-12-29] MEDS: Insulin LISPRO 300 UNITS/3 ML VIAL SUBQ SCH ×5 (07:20→22:34)
[2020-12-29] MEDS ORDERED: Furosemide 40 MG TABLET PO SCH (09:00)
[2020-12-29] MEDS: Ranolazine 500 MG TAB.ER.12H PO SCH ×2 (10:33→22:40)
[2020-12-29] MEDS: Metoprolol XL (24 HR) Succ 25 MG TAB.ER.24H PO SCH ×2 (10:33→22:40)
[2020-12-29] MEDS: Loratadine 10 MG TABLET PO SCH (10:33)
[2020-12-29] MEDS: Furosemide 40 MG/4 ML VIAL IVP SCH (10:33)
[2020-12-29] MEDS: Isosorbide MONOnitrate (24 HR) 60 MG TAB.ER.24H PO SCH (10:33)
[2020-12-29] MEDS: Dexamethasone Sodium Phos/PF 10 MG/ML VIAL IVP SCH (10:33)
[2020-12-29] MEDS: Aspirin Enteric Coated 81 MG Tablet PO SCH (10:34)
[2020-12-29] MEDS: *HR* Rivaroxaban 10 MG TABLET PO SCH (10:34)
[2020-12-29] MEDS: lisinopriL 5 MG TABLET PO SCH (10:34)
[2020-12-29] MEDS: *HR* HYDROcodone/Acet 5/325 mg TABLET PO PRN (13:25)
[2020-12-29] MEDS: Remdesivir 100 MG in 0.9 % Sodium Chloride 100 ML IVPB SCH (13:26)
[2020-12-29] MEDS ORDERED: levoFLOXacin 750 MG/150 ML 750 MG/150 ML BAG IVPB SCH (17:00)
[2020-12-30] MEDS: Ipratropium 1 PUFF INHALER IH SCH ×4 (03:54→21:10)
[2020-12-30 05:23] LABS: Hematocrit 27.7 % (37.5-50.1); Hemoglobin 8.7 g/dL (12.9-16.9); Immature Granulocytes % 0.6 % (0-4); Lymphocytes # 0.4 K/mcL (0.6-4.6); Lymphocytes % 6.9 %; Mean Corpuscular HGB Conc 31.4 g/dL (31.6-35.5); Mean Corpuscular Hemoglobin 26.4 pg (28.0-33.3); Mean Corpuscular Volume 83.9 fL (83.0-100.0); Mean Platelet Volume 9.7 fL (9.4-12.4); Monocytes # 0.4 K/mcL (0.0-1.3); Monocytes % 5.9 %; Neutrophils # 5.5 K/mcL (1.6-8.9); Platelet Count 181 K/mcL (140-400); Red Cell Distribution Width 15.7 % (11.5-14.5); Segmented Neutrophils % 86.6 %; White Blood Count 6.4 K/mcL (4.3-11.1)
[2020-12-30 05:46] LABS: Alanine Aminotransferase 10 Units/L (7-52); Albumin 3.4 g/dL (3.5-5.7); Albumin/Globulin Ratio 1.1 (1.1-2.2); Alkaline Phosphatase 56 Units/L (34-104); Aspartate Amino Transferase 24 Units/L (13-39); BUN/Creatinine Ratio 34 (6-26); Bilirubin,Direct 0.3 mg/dL (0.0-0.2); Bilirubin,Indirect 0.5 mg/dL (0.0-1.0); Bilirubin,Total 0.8 mg/dL (0.3-1.0); Blood Urea Nitrogen 40 mg/dL (8-23); Carbon Dioxide 25 mEq/L (23-29); Chloride 104 mEq/L (98-107); Globulin 3.1 g/dL (2.4-3.5); Glucose 141 mg/dL (70-105); Magnesium 2.1 mg/dL (1.6-2.6); Osmolality,Calculated 296 (280-300); Potassium 4.2 mEq/L (3.5-5.1); Sodium 137 mEq/L (136-145); Total Protein 6.5 g/dL (6.4-8.9); eGFR For African Americans > 60 (> 60); eGFR For Non-African Americans 59 (> 60)
[2020-12-30 05:47] LABS: Anisocytosis 1+ (Not Present); Ovalocytes 1+ (Not Present); Platelet Estimate Normal (Normal); Poikilocytosis 1+ (Not Present)
[2020-12-30] MEDS: Insulin LISPRO 300 UNITS/3 ML VIAL SUBQ SCH ×4 (07:54→19:52)
[2020-12-30] MEDS: *HR* Rivaroxaban 10 MG TABLET PO SCH (07:55)
[2020-12-30] MEDS: Metoprolol XL (24 HR) Succ 25 MG TAB.ER.24H PO SCH ×2 (07:56→19:52)
[2020-12-30] MEDS: Dexamethasone Sodium Phos/PF 10 MG/ML VIAL IVP SCH (07:56)
[2020-12-30] MEDS: Ranolazine 500 MG TAB.ER.12H PO SCH ×2 (07:56→19:52)
[2020-12-30] MEDS: lisinopriL 5 MG TABLET PO SCH (07:56)
[2020-12-30] MEDS: Loratadine 10 MG TABLET PO SCH (07:56)
[2020-12-30] MEDS: Aspirin Enteric Coated 81 MG Tablet PO SCH (07:56)
[2020-12-30] MEDS: Furosemide 40 MG/4 ML VIAL IVP SCH (07:56)
[2020-12-30] MEDS: Isosorbide MONOnitrate (24 HR) 60 MG TAB.ER.24H PO SCH (07:56)
[2020-12-30] MEDS: Remdesivir 100 MG in 0.9 % Sodium Chloride 100 ML IVPB SCH (14:19)
[2020-12-30] MEDS ORDERED: *HR* Rivaroxaban 15 MG TABLET PO SCH (17:00)
[2020-12-30] MEDS: Acetaminophen 325 MG TABLET PO PRN (22:12)
[2020-12-31] MEDS: Ipratropium 1 PUFF INHALER IH SCH ×2 (03:56→08:12)
[2020-12-31 08:03] VITALS: O2SAT 93
[2020-12-31 08:25] LABS: Albumin 3.3 g/dL (3.5-5.7); Albumin/Globulin Ratio 1.1 (1.1-2.2); Bilirubin,Direct 0.3 mg/dL (0.0-0.2); Bilirubin,Indirect 0.6 mg/dL (0.0-1.0); Bilirubin,Total 0.9 mg/dL (0.3-1.0); Total Protein 6.3 g/dL (6.4-8.9)
[2020-12-31] MEDS: Isosorbide MONOnitrate (24 HR) 60 MG TAB.ER.24H PO SCH (08:50)
[2020-12-31] MEDS: Ranolazine 500 MG TAB.ER.12H PO SCH (08:50)
[2020-12-31] MEDS: Metoprolol XL (24 HR) Succ 25 MG TAB.ER.24H PO SCH (08:50)
[2020-12-31] MEDS: Aspirin Enteric Coated 81 MG Tablet PO SCH (08:51)
[2020-12-31] MEDS: Dexamethasone Sodium Phos/PF 10 MG/ML VIAL IVP SCH (08:51)
[2020-12-31] MEDS: Furosemide 40 MG/4 ML VIAL IVP SCH (08:51)
[2020-12-31] MEDS: Loratadine 10 MG TABLET PO SCH (08:51)
[2020-12-31] MEDS: Insulin LISPRO 300 UNITS/3 ML VIAL SUBQ SCH ×2 (08:51→13:37)
[2020-12-31] MEDS: lisinopriL 5 MG TABLET PO SCH (08:51)
[2020-12-31 10:24] VITALS: BP 136/70; PULSE 64; TEMP 98.1
[2020-12-31] MEDS: Remdesivir 100 MG in 0.9 % Sodium Chloride 100 ML IVPB SCH (14:34)
== END 2020-12-31 15:30 | disposition home or self-care (01) | DRG 280 ==
LOC: SUATTDRO → EMEROOARM 08:19 → 3BNU 08:19 → SUATTDRO 17:04 → 3BNU 17:40 → SUATTDRO 12-28 11:54 → 3BNU 12-28 12:37
PROVIDERS: ADMIT Family Medicine; ATTEND Internal Medicine

== ENCOUNTER 2021-03-15 07:00 | Observation (INO) ==
[2021-03-15] MEDS ORDERED: Aspirin 81 MG TAB.CHEW PO ONE (07:04)
[2021-03-15 07:49] LABS: Basophils % 0.4 %; Eosinophils # 0.1 K/mcL (0.0-0.6); Eosinophils % 0.7 %; Hematocrit 22.4 % (37.5-50.1); Hemoglobin 6.8 g/dL (12.9-16.9); Immature Granulocytes % 0.8 % (0-4); Lymphocytes # 1.1 K/mcL (0.6-4.6); Lymphocytes % 11.1 %; Mean Corpuscular HGB Conc 30.4 g/dL (31.6-35.5); Mean Corpuscular Hemoglobin 23.8 pg (28.0-33.3); Mean Corpuscular Volume 78.3 fL (83.0-100.0); Mean Platelet Volume 10.4 fL (9.4-12.4); Monocytes # 0.8 K/mcL (0.0-1.3); Monocytes % 8.5 %; Neutrophils # 7.5 K/mcL (1.6-8.9); Nucleated Red Blood Cells 0.2 /100 WBC (0); Platelet Count 216 K/mcL (140-400); Red Blood Count 2.86 M/mcL (4.19-5.50); Red Cell Distribution Width 19.9 % (11.5-14.5); Segmented Neutrophils % 78.5 %; White Blood Count 9.6 K/mcL (4.3-11.1)
[2021-03-15 07:57] LABS: INR 2.1; Prothrombin Time 22.9 Seconds (9.4-12.1)
[2021-03-15 08:00] LABS: Activated Partial Thrombo Time 37.4 Seconds (26.0-36.0)
[2021-03-15] MEDS ORDERED: *HR* FentaNYL (PF) 100 MCG/2 ML VIAL IVP ONE (08:17)
[2021-03-15 08:29] LABS: Albumin 3.7 g/dL (3.5-5.7); Albumin/Globulin Ratio 1.3 (1.1-2.2); Bilirubin,Direct 0.1 mg/dL (0.0-0.2); Bilirubin,Indirect 0.3 mg/dL (0.0-1.0); Bilirubin,Total 0.4 mg/dL (0.3-1.0); Calcium 9.3 mg/dL (8.6-10.3); Globulin 2.9 g/dL (2.4-3.5); Thyroid Stimulating Hormone 2.257 mcIU/mL (0.340-5.600); Total Protein 6.6 g/dL (6.4-8.9); Troponin I 0.23 ng/mL (< 0.04)
[2021-03-15] MEDS ORDERED: 0.9 % Sodium Chloride 1,000 ML IVC SCH (08:30)
[2021-03-15] MEDS ORDERED: Furosemide 20 MG/2 ML VIAL IVP ONE ×2 (08:45→15:31)
[2021-03-15] MEDS ORDERED: Furosemide 40 MG/4 ML VIAL IVP ONE ×2 (08:57→16:04)
[2021-03-15] MEDS ORDERED: Melatonin 3 MG TABLET PO PRN (09:02)
[2021-03-15] MEDS ORDERED: Ondansetron 4 MG/2 ML VIAL IVP PRN (09:02)
[2021-03-15] MEDS ORDERED: Acetaminophen 325 MG TABLET PO PRN (09:02)
[2021-03-15] MEDS ORDERED: Dextrose Gel 15 GM/37.5 ML TUBE PO PRN ×2 (09:03)
[2021-03-15] MEDS ORDERED: D5% in Water 1,000 ML IVC PRN (09:03)
[2021-03-15] MEDS ORDERED: *HR* Dextrose 50 % in Water (Syg) 50 ML SYRINGE IVP PRN (09:03)
[2021-03-15] MEDS: Ranolazine 500 MG TAB.ER.12H PO SCH ×2 (11:51→20:18)
[2021-03-15] MEDS: Aspirin Enteric Coated 81 MG Tablet PO SCH (11:51)
[2021-03-15] MEDS: Metoprolol XL (24 HR) Succ 25 MG TAB.ER.24H PO SCH ×2 (11:51→20:18)
[2021-03-15] MEDS: Isosorbide MONOnitrate (24 HR) 60 MG TAB.ER.24H PO SCH (11:51)
[2021-03-15] MEDS ORDERED: 0.9 % Sodium Chloride 250 ML ONE (11:57)
[2021-03-15 17:49] LABS: Bilirubin,Urine Negative (Negative); Blood,Urine Negative (Negative); Clarity,Urine Clear (Clear); Color,Urine Colorless (Yellow); Glucose,Urine (UA) Normal (Normal); Ketones,Urine Negative (Negative); Leukocyte Esterase,Urine Negative (Negative); Nitrite,Urine Negative (Negative); Protein,Urine Negative (Neg-Trace); Specific Gravity,Urine 1.014 (1.010-1.025); Urobilinogen,Urine Normal (Normal)
[2021-03-15 19:13] LABS: Hematocrit 26.6 % (37.5-50.1)
[2021-03-15 19:14] LABS: Hemoglobin 8.6 g/dL (12.9-16.9)
[2021-03-16] MEDS ORDERED: Morphine Sulfate 2 MG/ML SYRINGE IVP ONE (02:06)
[2021-03-16 05:54] LABS: Hematocrit 27.5 % (37.5-50.1); Hemoglobin 8.7 g/dL (12.9-16.9); Mean Corpuscular HGB Conc 31.6 g/dL (31.6-35.5); Mean Corpuscular Hemoglobin 25.9 pg (28.0-33.3); Mean Corpuscular Volume 81.8 fL (83.0-100.0); Mean Platelet Volume 10.1 fL (9.4-12.4); Platelet Count 197 K/mcL (140-400); Red Blood Count 3.36 M/mcL (4.19-5.50); Red Cell Distribution Width 20.4 % (11.5-14.5); White Blood Count 11.2 K/mcL (4.3-11.1)
[2021-03-16 06:26] LABS: Calcium 9.3 mg/dL (8.6-10.3); Magnesium 2.1 mg/dL (1.6-2.6); Phosphorous 2.4 mg/dL (2.7-4.5); Troponin I 0.17 ng/mL (< 0.04)
[2021-03-16] MEDS ORDERED: Perflutren Lipid Microsphere 1.3 ML in 0.9 % Sodium Chloride 8.7 ML IVP PRN (07:19)
[2021-03-16] MEDS ORDERED: Furosemide 40 MG TABLET PO SCH (09:00)
[2021-03-16] MEDS: Ranolazine 500 MG TAB.ER.12H PO SCH ×2 (10:22→21:18)
[2021-03-16] MEDS: Aspirin Enteric Coated 81 MG Tablet PO SCH (10:22)
[2021-03-16] MEDS: Isosorbide MONOnitrate (24 HR) 60 MG TAB.ER.24H PO SCH (10:22)
[2021-03-16] MEDS: Metoprolol XL (24 HR) Succ 25 MG TAB.ER.24H PO SCH ×2 (10:22→21:18)
[2021-03-16] MEDS ORDERED: Ipratropium/Albuterol Neb 3 ML IH PRN (10:22)
[2021-03-16] MEDS: cefTRIAXone 1,000 MG in Water for inj. (sterile) 10 ML IVP SCH (11:17)
[2021-03-16] MEDS: Azithromycin 250 MG TABLET PO SCH (11:17)
[2021-03-16] MEDS ORDERED: SODIUM CHLORIDE/NAHCO3/KCL/PEG 4,000 ML SOLN.RECON PO ONE (17:00)
[2021-03-17 01:32] LABS: Basophils # 0.1 K/mcL (0.0-0.2); Basophils % 0.5 %; Eosinophils # 0.1 K/mcL (0.0-0.6); Eosinophils % 1.5 %; Hematocrit 28.7 % (37.5-50.1); Hemoglobin 8.8 g/dL (12.9-16.9); Immature Granulocytes % 0.5 % (0-4); Lymphocytes % 10.4 %; Mean Corpuscular HGB Conc 30.7 g/dL (31.6-35.5); Mean Corpuscular Hemoglobin 25.5 pg (28.0-33.3); Mean Corpuscular Volume 83.2 fL (83.0-100.0); Mean Platelet Volume 10.1 fL (9.4-12.4); Monocytes # 0.9 K/mcL (0.0-1.3); Monocytes % 9.7 %; Neutrophils # 7.4 K/mcL (1.6-8.9); Platelet Count 216 K/mcL (140-400); Red Blood Count 3.45 M/mcL (4.19-5.50); Red Cell Distribution Width 21.2 % (11.5-14.5); Segmented Neutrophils % 77.4 %; White Blood Count 9.5 K/mcL (4.3-11.1)
[2021-03-17 01:52] LABS: Calcium 9.2 mg/dL (8.6-10.3); Potassium 3.8 mEq/L (3.5-5.1)
[2021-03-17] MEDS: Furosemide 40 MG/4 ML VIAL IVP SCH (09:01)
[2021-03-17] MEDS: Aspirin Enteric Coated 81 MG Tablet PO SCH (09:14)
[2021-03-17] MEDS: Metoprolol XL (24 HR) Succ 25 MG TAB.ER.24H PO SCH ×2 (09:14→19:40)
[2021-03-17] MEDS: Ranolazine 500 MG TAB.ER.12H PO SCH ×2 (09:14→19:40)
[2021-03-17] MEDS: Isosorbide MONOnitrate (24 HR) 60 MG TAB.ER.24H PO SCH (09:14)
[2021-03-17] MEDS: Azithromycin 250 MG TABLET PO SCH (11:00)
[2021-03-17] MEDS: cefTRIAXone 1,000 MG in Water for inj. (sterile) 10 ML IVP SCH (13:33)
[2021-03-17] MEDS ORDERED: cefTRIAXone 1,000 MG in 0.9 % Sodium Chloride Mini Bag 100 ML IVPB SCH (14:00)
[2021-03-17] MEDS ORDERED: Lidocaine -MPF 2% 5 ML VIAL ONE (14:42)
[2021-03-17] MEDS: *HR* Rivaroxaban 10 MG TABLET PO SCH (16:48)
[2021-03-17] MEDS: Pantoprazole 40 MG VIAL IVP SCH (16:48)
[2021-03-17] MEDS ORDERED: Sucralfate 1 GM TABLET PO SCH (21:00)
[2021-03-18] MEDS: Pantoprazole 40 MG VIAL IVP SCH (05:46)
[2021-03-18 06:29] VITALS: TEMP 97.5
[2021-03-18 06:35] LABS: Basophils % 0.3 %; Eosinophils # 0.1 K/mcL (0.0-0.6); Eosinophils % 0.8 %; Hematocrit 32.3 % (37.5-50.1); Hemoglobin 9.4 g/dL (12.9-16.9); Immature Granulocytes % 0.4 % (0-4); Lymphocytes # 0.7 K/mcL (0.6-4.6); Lymphocytes % 7.4 %; Mean Corpuscular HGB Conc 29.1 g/dL (31.6-35.5); Mean Corpuscular Volume 85.9 fL (83.0-100.0); Mean Platelet Volume 10.3 fL (9.4-12.4); Monocytes # 1.1 K/mcL (0.0-1.3); Monocytes % 11.7 %; Neutrophils # 7.6 K/mcL (1.6-8.9); Platelet Count 223 K/mcL (140-400); Red Blood Count 3.76 M/mcL (4.19-5.50); Red Cell Distribution Width 21.8 % (11.5-14.5); Segmented Neutrophils % 79.4 %; White Blood Count 9.6 K/mcL (4.3-11.1)
[2021-03-18 06:55] LABS: BUN/Creatinine Ratio 18 (6-26); Blood Urea Nitrogen 25 mg/dL (8-23); Calcium 9.6 mg/dL (8.6-10.3); Carbon Dioxide 21 mEq/L (23-29); Chloride 105 mEq/L (98-107); Glucose 122 mg/dL (70-105); Osmolality,Calculated 290 (280-300); Sodium 137 mEq/L (136-145); eGFR For African Americans > 60 (> 60); eGFR For Non-African Americans 50 (> 60)
[2021-03-18] MEDS: Furosemide 40 MG/4 ML VIAL IVP SCH (09:42)
[2021-03-18] MEDS: Aspirin Enteric Coated 81 MG Tablet PO SCH (09:42)
[2021-03-18] MEDS: Metoprolol XL (24 HR) Succ 25 MG TAB.ER.24H PO SCH (09:42)
[2021-03-18] MEDS: Ranolazine 500 MG TAB.ER.12H PO SCH (09:42)
[2021-03-18] MEDS: Isosorbide MONOnitrate (24 HR) 60 MG TAB.ER.24H PO SCH (09:42)
[2021-03-18] MEDS: *HR* Rivaroxaban 10 MG TABLET PO SCH (09:42)
[2021-03-18] MEDS: Azithromycin 250 MG TABLET PO SCH (09:43)
[2021-03-18 10:34] VITALS: BP 100/55; PULSE 65; O2SAT 97
[2021-03-18] MEDS ORDERED: Cefdinir 300 MG CAPSULE PO SCH (21:00)
[2021-03-19] MEDS ORDERED: *HR* Rivaroxaban 15 MG TABLET PO SCH (17:00)
== END 2021-03-18 13:54 | disposition home or self-care (01) ==
LOC: EMEROOARM 07:00 → 2ANU 07:00 → SUATTDRO 08:45 → 2ANU 10:30
PROVIDERS: ADMIT Internal Medicine; ATTEND General Practice
PROC: ENDOEBX (2021-03-17 15:00)

== ENCOUNTER 2021-05-30 15:19 | Inpatient (IN) ==
[2021-05-30 16:37] LABS: Basophils # 0.1 K/mcL (0.0-0.2); Basophils % 0.7 %; Eosinophils # 0.2 K/mcL (0.0-0.6); Eosinophils % 1.9 %; Hematocrit 34.5 % (37.5-50.1); Hemoglobin 10.2 g/dL (12.9-16.9); Immature Granulocytes % 0.3 % (0-4); Lymphocytes # 0.9 K/mcL (0.6-4.6); Lymphocytes % 10.8 %; Mean Corpuscular HGB Conc 29.6 g/dL (31.6-35.5); Mean Corpuscular Hemoglobin 24.1 pg (28.0-33.3); Mean Corpuscular Volume 81.6 fL (83.0-100.0); Monocytes # 0.7 K/mcL (0.0-1.3); Monocytes % 7.9 %; Neutrophils # 6.8 K/mcL (1.6-8.9); Platelet Count 259 K/mcL (140-400); Red Blood Count 4.23 M/mcL (4.19-5.50); Red Cell Distribution Width 24.2 % (11.5-14.5); Segmented Neutrophils % 78.4 %; White Blood Count 8.7 K/mcL (4.3-11.1)
[2021-05-30 16:49] LABS: INR 1.3; Prothrombin Time 14.3 Seconds (9.4-12.1)
[2021-05-30 16:51] LABS: Activated Partial Thrombo Time 33.3 Seconds (26.0-36.0)
[2021-05-30 17:01] LABS: Calcium 9.5 mg/dL (8.6-10.3); Potassium 4.6 mEq/L (3.5-5.1)
[2021-05-30 17:06] LABS: Troponin I 0.04 ng/mL (< 0.04)
[2021-05-30] MEDS ORDERED: Isovue-370 500 ML BOTTLE IVP ONE (17:09)
[2021-05-30] MEDS ORDERED: *HR* Heparin 5,000 UNIT/ML VIAL IVP ONE (20:12)
[2021-05-30] MEDS ORDERED: *HR* Heparin 5,000 UNIT/ML VIAL IVP PRN ×2 (20:12)
[2021-05-30] MEDS ORDERED: Naloxone 0.4 MG/ML INJ IVP PRN (20:43)
[2021-05-30] MEDS ORDERED: Ondansetron 4 MG/2 ML VIAL IVP PRN (20:43)
[2021-05-30 20:54] LABS: Heparin anti-factor XA UFH 0.06 IU/mL (0.30-0.70)
[2021-05-30 20:55] LABS: INR 1.2; Prothrombin Time 13.9 Seconds (9.4-12.1)
[2021-05-30] MEDS: Heparin 25,000UNIT/250ML 1/2NS 25,000 UNIT/250 ML IV.SOLN IVC SCH (21:17)
[2021-05-30] MEDS ORDERED: Dextrose 4 GM Chewable Tablets PO PRN ×2 (21:20)
[2021-05-30] MEDS ORDERED: *HR* Dextrose 50 % in Water (Syg) 50 ML SYRINGE IVP PRN (21:20)
[2021-05-30] MEDS ORDERED: D5% in Water 1,000 ML IVC PRN (21:20)
[2021-05-30 22:48] LABS: Hematocrit 33.5 % (37.5-50.1); Hemoglobin 9.9 g/dL (12.9-16.9); Mean Corpuscular HGB Conc 29.6 g/dL (31.6-35.5); Mean Corpuscular Volume 81.3 fL (83.0-100.0); Mean Platelet Volume 9.2 fL (9.4-12.4); Platelet Count 216 K/mcL (140-400); Red Blood Count 4.12 M/mcL (4.19-5.50); Red Cell Distribution Width 24.1 % (11.5-14.5); White Blood Count 7.8 K/mcL (4.3-11.1)
[2021-05-30] MEDS: Morphine Sulfate 2 MG/ML SYRINGE IVP PRN (23:52)
[2021-05-31 03:11] LABS: Hematocrit 33.6 % (37.5-50.1); Hemoglobin 10.4 g/dL (12.9-16.9); Mean Corpuscular Hemoglobin 25.1 pg (28.0-33.3); Platelet Count 255 K/mcL (140-400); Red Blood Count 4.15 M/mcL (4.19-5.50); Red Cell Distribution Width 24.5 % (11.5-14.5); White Blood Count 7.3 K/mcL (4.3-11.1)
[2021-05-31 03:18] LABS: INR 1.4; Prothrombin Time 15.3 Seconds (9.4-12.1)
[2021-05-31 03:33] LABS: BUN/Creatinine Ratio 27 (6-26); Blood Urea Nitrogen 29 mg/dL (8-23); Calcium 9.6 mg/dL (8.6-10.3); Carbon Dioxide 20 mEq/L (23-29); Chloride 109 mEq/L (98-107); Glucose 101 mg/dL (70-105); Osmolality,Calculated 296 (280-300); Potassium 4.1 mEq/L (3.5-5.1); Sodium 140 mEq/L (136-145); eGFR For African Americans > 60 (> 60); eGFR For Non-African Americans > 60 (> 60)
[2021-05-31 03:38] LABS: Activated Partial Thrombo Time 207.9 Seconds (26.0-36.0)
[2021-05-31] MEDS: Morphine Sulfate 2 MG/ML SYRINGE IVP PRN ×3 (04:54→20:36)
[2021-05-31] MEDS: Insulin LISPRO 300 UNITS/3 ML VIAL SUBQ SCH ×3 (07:24→16:45)
[2021-05-31] MEDS ORDERED: Perflutren Lipid Microsphere 1.3 ML in 0.9 % Sodium Chloride 8.7 ML IVP PRN (07:52)
[2021-05-31 12:37] LABS: % Iron Saturation 6 % (20-55); Iron 23 mcg/dL (65-175); Transferrin 284 mg/dL (203-362)
[2021-05-31 13:02] LABS: Ferritin 54 ng/mL (20-250)
[2021-05-31] MEDS ORDERED: Nitroglycerin 0.4 MG TAB.SUBL SL PRN (14:15)
[2021-05-31] MEDS: Heparin 25,000UNIT/250ML 1/2NS 25,000 UNIT/250 ML IV.SOLN IVC SCH (18:20)
[2021-05-31] MEDS: Furosemide 40 MG TABLET PO SCH (20:38)
[2021-05-31] MEDS: Ranolazine 500 MG TAB.ER.12H PO SCH (20:38)
[2021-05-31] MEDS: Apixaban 5 MG TABLET PO SCH (20:38)
[2021-05-31] MEDS: tiZANidine 4 MG TABLET PO PRN (20:38)
[2021-05-31] MEDS: Metoprolol XL (24 HR) Succ 25 MG TAB.ER.24H PO SCH (20:38)
[2021-05-31] MEDS: Sucralfate 1 GM TABLET PO SCH (20:38)
[2021-05-31] MEDS ORDERED: Morphine Sulfate 2 MG/ML SYRINGE IVP ONE (22:08)
[2021-06-01] MEDS: Morphine Sulfate 2 MG/ML SYRINGE IVP PRN (06:02)
[2021-06-01 07:09] LABS: Basophils % 0.6 %; Eosinophils # 0.2 K/mcL (0.0-0.6); Eosinophils % 2.9 %; Hematocrit 31.3 % (37.5-50.1); Hemoglobin 9.4 g/dL (12.9-16.9); Immature Granulocytes % 0.4 % (0-4); Lymphocytes # 0.8 K/mcL (0.6-4.6); Lymphocytes % 15.1 %; Mean Corpuscular Volume 79.8 fL (83.0-100.0); Mean Platelet Volume 9.2 fL (9.4-12.4); Monocytes # 0.7 K/mcL (0.0-1.3); Monocytes % 12.7 %; Platelet Count 223 K/mcL (140-400); Red Blood Count 3.92 M/mcL (4.19-5.50); Red Cell Distribution Width 24.2 % (11.5-14.5); Segmented Neutrophils % 68.3 %; White Blood Count 5.2 K/mcL (4.3-11.1)
[2021-06-01 07:10] LABS: Neutrophils # 3.6 K/mcL (1.6-8.9)
[2021-06-01 07:29] LABS: BUN/Creatinine Ratio 22 (6-26); Blood Urea Nitrogen 23 mg/dL (8-23); Calcium 9.1 mg/dL (8.6-10.3); Carbon Dioxide 23 mEq/L (23-29); Chloride 107 mEq/L (98-107); Glucose 118 mg/dL (70-105); Osmolality,Calculated 291 (280-300); Potassium 4.2 mEq/L (3.5-5.1); Sodium 138 mEq/L (136-145); eGFR For African Americans > 60 (> 60); eGFR For Non-African Americans > 60 (> 60)
[2021-06-01] MEDS: Insulin LISPRO 300 UNITS/3 ML VIAL SUBQ SCH ×3 (07:48→17:41)
[2021-06-01] MEDS ORDERED: Iron Sucrose Complex 400 MG in 0.9 % Sodium Chloride 250 ML IVPB ONE (08:29)
[2021-06-01] MEDS: Ranolazine 500 MG TAB.ER.12H PO SCH ×2 (08:48→20:48)
[2021-06-01] MEDS: Cefdinir 300 MG CAPSULE PO SCH ×2 (08:49→20:48)
[2021-06-01] MEDS: allopurinoL 100 MG TABLET PO SCH (08:49)
[2021-06-01] MEDS: Apixaban 5 MG TABLET PO SCH ×2 (08:49→20:48)
[2021-06-01] MEDS: Furosemide 40 MG TABLET PO SCH (08:49)
[2021-06-01] MEDS: Metoprolol XL (24 HR) Succ 25 MG TAB.ER.24H PO SCH ×2 (08:49→20:49)
[2021-06-01] MEDS: Aspirin Enteric Coated 81 MG Tablet PO SCH (08:49)
[2021-06-01] MEDS ORDERED: Isosorbide MONOnitrate (24 HR) 60 MG TAB.ER.24H PO SCH (09:00)
[2021-06-01] MEDS ORDERED: lisinopriL 5 MG TABLET PO SCH (09:00)
[2021-06-01] MEDS: Ipratropium/Albuterol Neb 3 ML IH SCH ×2 (15:34→20:28)
[2021-06-01] MEDS: Acetaminophen 325 MG TABLET PO PRN (17:32)
[2021-06-01] MEDS: tiZANidine 4 MG TABLET PO PRN (20:48)
[2021-06-01] MEDS: Sucralfate 1 GM TABLET PO SCH (20:49)
[2021-06-02 01:31] LABS: Basophils % 0.6 %; Eosinophils # 0.2 K/mcL (0.0-0.6); Eosinophils % 3.7 %; Hematocrit 29.9 % (37.5-50.1); Immature Granulocytes % 0.4 % (0-4); Lymphocytes # 0.8 K/mcL (0.6-4.6); Lymphocytes % 17.1 %; Mean Corpuscular HGB Conc 30.1 g/dL (31.6-35.5); Mean Corpuscular Hemoglobin 24.2 pg (28.0-33.3); Mean Corpuscular Volume 80.4 fL (83.0-100.0); Mean Platelet Volume 9.4 fL (9.4-12.4); Monocytes # 0.8 K/mcL (0.0-1.3); Monocytes % 15.9 %; Neutrophils # 3.1 K/mcL (1.6-8.9); Platelet Count 233 K/mcL (140-400); Red Blood Count 3.72 M/mcL (4.19-5.50); Red Cell Distribution Width 23.9 % (11.5-14.5); Segmented Neutrophils % 62.3 %; White Blood Count 4.9 K/mcL (4.3-11.1)
[2021-06-02 01:48] LABS: Calcium 8.9 mg/dL (8.6-10.3); Potassium 3.9 mEq/L (3.5-5.1)
[2021-06-02] MEDS: Acetaminophen 325 MG TABLET PO PRN ×2 (03:30→15:14)
[2021-06-02] MEDS: Ipratropium/Albuterol Neb 3 ML IH SCH ×4 (03:41→20:01)
[2021-06-02] MEDS: Insulin LISPRO 300 UNITS/3 ML VIAL SUBQ SCH ×3 (08:15→16:35)
[2021-06-02] MEDS: allopurinoL 100 MG TABLET PO SCH (09:10)
[2021-06-02] MEDS: Apixaban 5 MG TABLET PO SCH ×2 (09:10→20:11)
[2021-06-02] MEDS: Ranolazine 500 MG TAB.ER.12H PO SCH ×2 (09:10→20:11)
[2021-06-02] MEDS: Aspirin Enteric Coated 81 MG Tablet PO SCH (09:11)
[2021-06-02] MEDS: Metoprolol XL (24 HR) Succ 25 MG TAB.ER.24H PO SCH ×2 (09:11→20:11)
[2021-06-02] MEDS: Cefdinir 300 MG CAPSULE PO SCH ×2 (09:11→20:11)
[2021-06-02] MEDS ORDERED: Perflutren Lipid Microsphere 1.3 ML in 0.9 % Sodium Chloride 8.7 ML IVP PRN (13:06)
[2021-06-02 15:34] LABS: Bilirubin,Urine Negative (Negative); Blood,Urine Negative (Negative); Clarity,Urine Clear (Clear); Color,Urine Yellow (Yellow); Glucose,Urine (UA) 50 mg/dL (Normal); Ketones,Urine Negative (Negative); Leukocyte Esterase,Urine Negative (Negative); Mucus,Urine Few per lpf (None-Few); Nitrite,Urine Negative (Negative); PH,Urine 5.5 pH Units (5.0-8.0); Protein,Urine Trace mg/dL (Neg-Trace); RBC,Urine 0-3 per hpf (0-3); Specific Gravity,Urine 1.027 (1.010-1.025); Squamous Epithelial Cell,Urine Few per hpf (None-Few); Urobilinogen,Urine Normal (Normal); WBC,Urine 0-3 per hpf (0-3)
[2021-06-02] MEDS: Sucralfate 1 GM TABLET PO SCH (20:11)
[2021-06-02 23:22] VITALS: TEMP 97.6
[2021-06-03 03:42] VITALS: PULSE 60
[2021-06-03] MEDS: Acetaminophen 325 MG TABLET PO PRN (04:06)
[2021-06-03] MEDS: Ipratropium/Albuterol Neb 3 ML IH SCH (04:15)
[2021-06-03 05:18] LABS: Basophils % 0.8 %; Eosinophils # 0.2 K/mcL (0.0-0.6); Eosinophils % 3.8 %; Hematocrit 31.9 % (37.5-50.1); Hemoglobin 9.8 g/dL (12.9-16.9); Immature Granulocytes % 0.6 % (0-4); Lymphocytes # 0.9 K/mcL (0.6-4.6); Lymphocytes % 17.1 %; Mean Corpuscular HGB Conc 30.7 g/dL (31.6-35.5); Mean Corpuscular Hemoglobin 24.9 pg (28.0-33.3); Mean Platelet Volume 9.7 fL (9.4-12.4); Monocytes # 0.7 K/mcL (0.0-1.3); Monocytes % 12.6 %; Platelet Count 256 K/mcL (140-400); Red Blood Count 3.94 M/mcL (4.19-5.50); Red Cell Distribution Width 24.2 % (11.5-14.5); Segmented Neutrophils % 65.1 %; White Blood Count 5.3 K/mcL (4.3-11.1)
[2021-06-03 05:27] LABS: Neutrophils # 3.5 K/mcL (1.6-8.9)
[2021-06-03 05:48] LABS: Anisocytosis 1+ (Not Present); Hypochromasia Present (Not Present)
[2021-06-03 05:49] LABS: Platelet Estimate Normal (Normal); Poikilocytosis 1+ (Not Present)
[2021-06-03 05:54] LABS: BUN/Creatinine Ratio 20 (6-26); Blood Urea Nitrogen 21 mg/dL (8-23); Calcium 9.3 mg/dL (8.6-10.3); Carbon Dioxide 24 mEq/L (23-29); Chloride 107 mEq/L (98-107); Glucose 112 mg/dL (70-105); Osmolality,Calculated 288 (280-300); Potassium 4.4 mEq/L (3.5-5.1); Sodium 137 mEq/L (136-145); eGFR For African Americans > 60 (> 60); eGFR For Non-African Americans > 60 (> 60)
[2021-06-03 07:51] VITALS: BP 160/84; O2SAT 99
[2021-06-03] MEDS: Insulin LISPRO 300 UNITS/3 ML VIAL SUBQ SCH (08:06)
[2021-06-03] MEDS: tiZANidine 4 MG TABLET PO PRN (08:33)
[2021-06-03] MEDS: Ranolazine 500 MG TAB.ER.12H PO SCH (08:33)
[2021-06-03] MEDS: Apixaban 5 MG TABLET PO SCH (08:33)
[2021-06-03] MEDS: Metoprolol XL (24 HR) Succ 25 MG TAB.ER.24H PO SCH (08:34)
[2021-06-03] MEDS: Cefdinir 300 MG CAPSULE PO SCH (08:34)
[2021-06-03] MEDS: allopurinoL 100 MG TABLET PO SCH (08:34)
[2021-06-03] MEDS: Aspirin Enteric Coated 81 MG Tablet PO SCH (08:34)
== END 2021-06-03 10:39 | disposition home health service (06) | DRG 175 ==
LOC: EMEROOARM 15:19 → 3BNU 15:19 → SUATTDRO 20:24 → 3BNU 21:42 → SUATTDRO 06-02 15:04
PROVIDERS: ADMIT Internal Medicine; ATTEND Internal Medicine

== ENCOUNTER 2021-06-18 04:36 | Observation (INO) ==
[2021-06-18] MEDS ORDERED: Nitroglycerin 0.4 MG TAB.SUBL SL PRN ×2 (05:40→08:50)
[2021-06-18] MEDS ORDERED: Morphine Sulfate 2 MG/ML SYRINGE IVP ONE (05:40)
[2021-06-18] MEDS ORDERED: Aspirin 325 MG TABLET PO ONE (05:40)
[2021-06-18 06:34] LABS: Basophils % 0.6 %; Eosinophils # 0.1 K/mcL (0.0-0.6); Eosinophils % 2.2 %; Hematocrit 26.6 % (37.5-50.1); Immature Granulocytes % 0.3 % (0-4); Lymphocytes # 1.1 K/mcL (0.6-4.6); Lymphocytes % 17.9 %; Mean Corpuscular HGB Conc 30.1 g/dL (31.6-35.5); Mean Corpuscular Hemoglobin 26.1 pg (28.0-33.3); Mean Corpuscular Volume 86.9 fL (83.0-100.0); Mean Platelet Volume 10.1 fL (9.4-12.4); Monocytes # 0.8 K/mcL (0.0-1.3); Monocytes % 12.8 %; Neutrophils # 4.2 K/mcL (1.6-8.9); Platelet Count 201 K/mcL (140-400); Red Blood Count 3.06 M/mcL (4.19-5.50); Red Cell Distribution Width 25.2 % (11.5-14.5); Segmented Neutrophils % 66.2 %; White Blood Count 6.3 K/mcL (4.3-11.1)
[2021-06-18 06:41] LABS: BUN/Creatinine Ratio 21 (6-26); Blood Urea Nitrogen 22 mg/dL (8-23); Calcium 9.4 mg/dL (8.6-10.3); Carbon Dioxide 29 mEq/L (23-29); Chloride 104 mEq/L (98-107); Glucose 108 mg/dL (70-105); Osmolality,Calculated 294 (280-300); Potassium 3.6 mEq/L (3.5-5.1); Sodium 140 mEq/L (136-145); eGFR For African Americans > 60 (> 60); eGFR For Non-African Americans > 60 (> 60)
[2021-06-18 06:43] LABS: INR 1.4; Prothrombin Time 15.5 Seconds (9.4-12.1); Troponin I 0.05 ng/mL (< 0.04)
[2021-06-18 06:46] LABS: Activated Partial Thrombo Time 31.1 Seconds (26.0-36.0)
[2021-06-18] MEDS ORDERED: Furosemide 40 MG/4 ML VIAL IVP ONE (06:50)
[2021-06-18 07:04] LABS: Anisocytosis 3+ (Not Present); Platelet Estimate Normal (Normal)
[2021-06-18] MEDS ORDERED: Acetaminophen 325 MG TABLET PO PRN (08:07)
[2021-06-18] MEDS ORDERED: Naloxone 0.4 MG/ML INJ IVP PRN (08:07)
[2021-06-18] MEDS ORDERED: Ondansetron 4 MG/2 ML VIAL IVP PRN (08:07)
[2021-06-18] MEDS ORDERED: tiZANidine 4 MG TABLET PO PRN (08:50)
[2021-06-18] MEDS: lisinopriL 5 MG TABLET PO SCH (09:31)
[2021-06-18] MEDS: Ranolazine 500 MG TAB.ER.12H PO SCH ×2 (09:31→20:16)
[2021-06-18] MEDS: Isosorbide MONOnitrate (24 HR) 60 MG TAB.ER.24H PO SCH (09:31)
[2021-06-18] MEDS: allopurinoL 100 MG TABLET PO SCH (09:32)
[2021-06-18] MEDS: Apixaban 5 MG TABLET PO SCH ×2 (09:32→20:16)
[2021-06-18] MEDS: Metoprolol XL (24 HR) Succ 25 MG TAB.ER.24H PO SCH ×2 (09:32→20:17)
[2021-06-18] MEDS: Furosemide 40 MG TABLET PO SCH (17:34)
[2021-06-18] MEDS ORDERED: Sucralfate 1 GM TABLET PO SCH (21:00)
[2021-06-19] MEDS ORDERED: Morphine Sulfate 2 MG/ML SYRINGE IVP ONE (01:12)
[2021-06-19 05:31] LABS: Basophils # 0.1 K/mcL (0.0-0.2); Basophils % 0.6 %; Eosinophils # 0.2 K/mcL (0.0-0.6); Eosinophils % 2.3 %; Hematocrit 28.3 % (37.5-50.1); Hemoglobin 8.5 g/dL (12.9-16.9); Immature Granulocytes % 0.4 % (0-4); Lymphocytes # 0.9 K/mcL (0.6-4.6); Lymphocytes % 11.9 %; Mean Corpuscular Hemoglobin 26.3 pg (28.0-33.3); Mean Corpuscular Volume 87.6 fL (83.0-100.0); Mean Platelet Volume 9.9 fL (9.4-12.4); Monocytes # 0.8 K/mcL (0.0-1.3); Monocytes % 10.5 %; Neutrophils # 5.7 K/mcL (1.6-8.9); Platelet Count 220 K/mcL (140-400); Red Blood Count 3.23 M/mcL (4.19-5.50); Segmented Neutrophils % 74.3 %; White Blood Count 7.7 K/mcL (4.3-11.1)
[2021-06-19 06:01] LABS: BUN/Creatinine Ratio 17 (6-26); Blood Urea Nitrogen 17 mg/dL (8-23); Calcium 9.4 mg/dL (8.6-10.3); Carbon Dioxide 30 mEq/L (23-29); Chloride 102 mEq/L (98-107); Glucose 113 mg/dL (70-105); Osmolality,Calculated 294 (280-300); Potassium 4.1 mEq/L (3.5-5.1); Sodium 141 mEq/L (136-145); eGFR For African Americans > 60 (> 60); eGFR For Non-African Americans > 60 (> 60)
[2021-06-19 06:12] LABS: Anisocytosis 3+ (Not Present); Platelet Estimate Normal (Normal)
[2021-06-19 06:13] LABS: Macrocytosis Present (Not Present); Microcytosis Present (Not Present); Polychromasia 1+ (Not Present)
[2021-06-19] MEDS: Metoprolol XL (24 HR) Succ 25 MG TAB.ER.24H PO SCH (08:16)
[2021-06-19] MEDS: lisinopriL 5 MG TABLET PO SCH (08:16)
[2021-06-19] MEDS: Apixaban 5 MG TABLET PO SCH (08:16)
[2021-06-19] MEDS: Ranolazine 500 MG TAB.ER.12H PO SCH (08:16)
[2021-06-19] MEDS: allopurinoL 100 MG TABLET PO SCH (08:16)
[2021-06-19] MEDS: Furosemide 40 MG TABLET PO SCH (08:17)
[2021-06-19] MEDS: Isosorbide MONOnitrate (24 HR) 60 MG TAB.ER.24H PO SCH (08:17)
[2021-06-19] MEDS ORDERED: Perflutren Lipid Microsphere 1.3 ML in 0.9 % Sodium Chloride 8.7 ML IVP PRN (08:56)
[2021-06-19] MEDS ORDERED: Spironolactone 12.5 MG TABLET PO SCH (09:00)
[2021-06-19] MEDS ORDERED: Aspirin Enteric Coated 81 MG Tablet PO SCH (09:00)
[2021-06-19 11:23] VITALS: BP 101/55; PULSE 59; TEMP 97.3; O2SAT 96
== END 2021-06-19 13:43 | disposition home health service (06) ==
LOC: 2ANU 04:36 → EMEROOARM 04:36 → SUATTDRO 07:32 → 2ANU 09:00
PROVIDERS: ADMIT Internal Medicine; ATTEND Internal Medicine

== ENCOUNTER 2021-07-03 06:43 | Inpatient (IN) ==
[2021-07-03 07:18] LABS: Basophils % 0.7 %; Eosinophils # 0.2 K/mcL (0.0-0.6); Hematocrit 25.1 % (37.5-50.1); Hemoglobin 7.5 g/dL (12.9-16.9); Immature Granulocytes % 0.4 % (0-4); Lymphocytes # 0.7 K/mcL (0.6-4.6); Lymphocytes % 12.5 %; Mean Corpuscular HGB Conc 29.9 g/dL (31.6-35.5); Mean Corpuscular Hemoglobin 25.7 pg (28.0-33.3); Mean Platelet Volume 9.9 fL (9.4-12.4); Monocytes # 0.6 K/mcL (0.0-1.3); Monocytes % 10.6 %; Neutrophils # 4.1 K/mcL (1.6-8.9); Platelet Count 232 K/mcL (140-400); Red Blood Count 2.92 M/mcL (4.19-5.50); Red Cell Distribution Width 21.5 % (11.5-14.5); Segmented Neutrophils % 72.8 %; White Blood Count 5.6 K/mcL (4.3-11.1)
[2021-07-03 08:28] LABS: BUN/Creatinine Ratio 15 (6-26); Blood Urea Nitrogen 19 mg/dL (8-23); Calcium 9.2 mg/dL (8.6-10.3); Carbon Dioxide 26 mEq/L (23-29); Chloride 104 mEq/L (98-107); Glucose 111 mg/dL (70-105); Osmolality,Calculated 291 (280-300); Potassium 4.1 mEq/L (3.5-5.1); Sodium 139 mEq/L (136-145); Troponin I 0.03 ng/mL (< 0.04); eGFR For African Americans > 60 (> 60); eGFR For Non-African Americans 53 (> 60)
[2021-07-03] MEDS ORDERED: Naloxone 0.4 MG/ML INJ IVP PRN (10:20)
[2021-07-03] MEDS ORDERED: Ondansetron 4 MG/2 ML VIAL IVP PRN (10:20)
[2021-07-03] MEDS ORDERED: Nitroglycerin 0.4 MG TAB.SUBL SL PRN (10:23)
[2021-07-03] MEDS ORDERED: tiZANidine 4 MG TABLET PO PRN (10:27)
[2021-07-03] MEDS ORDERED: *HR* Acetaminophen w/Cod 300-30 mg 1 TAB TABLET PO PRN (10:27)
[2021-07-03] MEDS: Furosemide 40 MG/4 ML VIAL IVP SCH (16:58)
[2021-07-03] MEDS ORDERED: Furosemide 40 MG TABLET PO SCH (17:00)
[2021-07-03] MEDS: Ranolazine 500 MG TAB.ER.12H PO SCH (21:05)
[2021-07-03] MEDS: Apixaban 5 MG TABLET PO SCH (21:05)
[2021-07-03] MEDS: Sucralfate 1 GM TABLET PO SCH (21:05)
[2021-07-03] MEDS: Metoprolol XL (24 HR) Succ 25 MG TAB.ER.24H PO SCH (21:05)
[2021-07-04 05:14] LABS: Basophils # 0.1 K/mcL (0.0-0.2); Basophils % 0.7 %; Eosinophils # 0.2 K/mcL (0.0-0.6); Eosinophils % 2.9 %; Hematocrit 26.4 % (37.5-50.1); Hemoglobin 8.1 g/dL (12.9-16.9); Immature Granulocytes % 0.4 % (0-4); Lymphocytes # 0.7 K/mcL (0.6-4.6); Lymphocytes % 10.1 %; Mean Corpuscular HGB Conc 30.7 g/dL (31.6-35.5); Mean Corpuscular Hemoglobin 25.5 pg (28.0-33.3); Mean Platelet Volume 9.3 fL (9.4-12.4); Monocytes # 0.8 K/mcL (0.0-1.3); Neutrophils # 5.4 K/mcL (1.6-8.9); Platelet Count 235 K/mcL (140-400); Red Blood Count 3.18 M/mcL (4.19-5.50); Segmented Neutrophils % 74.9 %; White Blood Count 7.3 K/mcL (4.3-11.1)
[2021-07-04 05:34] LABS: BUN/Creatinine Ratio 15 (6-26); Blood Urea Nitrogen 17 mg/dL (8-23); Calcium 9.4 mg/dL (8.6-10.3); Carbon Dioxide 26 mEq/L (23-29); Chloride 107 mEq/L (98-107); Glucose 110 mg/dL (70-105); Osmolality,Calculated 292 (280-300); Phosphorous 3.1 mg/dL (2.7-4.5); Potassium 4.1 mEq/L (3.5-5.1); Sodium 140 mEq/L (136-145); eGFR For African Americans > 60 (> 60); eGFR For Non-African Americans > 60 (> 60)
[2021-07-04] MEDS: Isosorbide MONOnitrate (24 HR) 60 MG TAB.ER.24H PO SCH (09:27)
[2021-07-04] MEDS: Ranolazine 500 MG TAB.ER.12H PO SCH ×2 (09:27→20:58)
[2021-07-04] MEDS: allopurinoL 100 MG TABLET PO SCH (09:27)
[2021-07-04] MEDS: Aspirin Enteric Coated 81 MG Tablet PO SCH (09:27)
[2021-07-04] MEDS: Apixaban 5 MG TABLET PO SCH ×2 (09:28→20:58)
[2021-07-04] MEDS: Furosemide 40 MG/4 ML VIAL IVP SCH ×2 (09:28→17:28)
[2021-07-04] MEDS: Metoprolol XL (24 HR) Succ 25 MG TAB.ER.24H PO SCH ×2 (09:28→20:59)
[2021-07-04] MEDS: Spironolactone 12.5 MG TABLET PO SCH (14:35)
[2021-07-04] MEDS: Sucralfate 1 GM TABLET PO SCH (20:57)
[2021-07-05 07:20] VITALS: BP 118/59; PULSE 60; TEMP 97.8; O2SAT 95
[2021-07-05] MEDS ORDERED: Furosemide 40 MG TABLET PO SCH (08:00)
[2021-07-05] MEDS: Spironolactone 12.5 MG TABLET PO SCH (08:32)
[2021-07-05] MEDS: Isosorbide MONOnitrate (24 HR) 60 MG TAB.ER.24H PO SCH (08:32)
[2021-07-05] MEDS: Metoprolol XL (24 HR) Succ 25 MG TAB.ER.24H PO SCH (08:33)
[2021-07-05] MEDS: Ranolazine 500 MG TAB.ER.12H PO SCH (08:33)
[2021-07-05] MEDS: Apixaban 5 MG TABLET PO SCH (08:33)
[2021-07-05] MEDS: allopurinoL 100 MG TABLET PO SCH (08:33)
[2021-07-05] MEDS: Aspirin Enteric Coated 81 MG Tablet PO SCH (08:33)
== END 2021-07-05 14:14 | disposition home or self-care (01) | DRG 291 ==
LOC: 3BNU 06:43 → EMEROOARM 06:43 → SUATTDRO 11:21 → 3BNU 11:54
PROVIDERS: ADMIT Internal Medicine; ATTEND Registered Nurse

== ENCOUNTER 2022-01-01 11:15 | Observation (INO) ==
[2022-01-01 13:02] LABS: Eosinophils % 1.5 %; Immature Granulocytes % 0.4 % (0-4); Mean Platelet Volume 10.2 fL (9.4-12.4); Red Blood Count 4.12 M/mcL (4.19-5.50)
[2022-01-01 13:04] LABS: Basophils # 0.1 K/mcL (0.0-0.2); Eosinophils # 0.1 K/mcL (0.0-0.6); Hematocrit 30.7 % (37.5-50.1); Hemoglobin 8.6 g/dL (12.9-16.9); Lymphocytes # 0.7 K/mcL (0.6-4.6); Lymphocytes % 9.3 %; Mean Corpuscular Hemoglobin 20.9 pg (28.0-33.3); Mean Corpuscular Volume 74.5 fL (83.0-100.0); Monocytes # 0.6 K/mcL (0.0-1.3); Monocytes % 8.1 %; Neutrophils # 5.7 K/mcL (1.6-8.9); Nucleated Red Blood Cells 0.3 /100 WBC (0); Platelet Count 247 K/mcL (140-400); Red Cell Distribution Width 23.5 % (11.5-14.5); Segmented Neutrophils % 79.7 %; White Blood Count 7.2 K/mcL (4.3-11.1)
[2022-01-01 13:12] LABS: INR 2.5; Prothrombin Time 27.6 Seconds (9.4-12.1)
[2022-01-01 13:14] LABS: Activated Partial Thrombo Time 34.6 Seconds (26.0-36.0)
[2022-01-01 13:15] LABS: Anisocytosis 1+ (Not Present); Hypochromasia Present (Not Present); Platelet Estimate Normal (Normal); Poikilocytosis 1+ (Not Present)
[2022-01-01 13:33] LABS: Albumin 3.7 g/dL (3.5-5.7); Albumin/Globulin Ratio 1.2 (1.1-2.2); Bilirubin,Total 0.7 mg/dL (0.3-1.0); Calcium 9.1 mg/dL (8.6-10.3); Potassium 3.5 mEq/L (3.5-5.1); Total Protein 6.7 g/dL (6.4-8.9); Troponin I 0.04 ng/mL (< 0.04)
[2022-01-01] MEDS ORDERED: Aspirin 325 MG TABLET PO ONE (16:34)
[2022-01-01] MEDS ORDERED: Morphine Sulfate 2 MG/ML SYRINGE IVP ONE (16:34)
[2022-01-01] MEDS ORDERED: Furosemide 40 MG/4 ML VIAL IVP ONE (16:34)
[2022-01-01] MEDS ORDERED: Naloxone 0.4 MG/ML INJ IVP PRN (17:26)
[2022-01-02 02:12] LABS: Basophils % 0.6 %; Eosinophils # 0.2 K/mcL (0.0-0.6); Eosinophils % 3.2 %; Hemoglobin 7.9 g/dL (12.9-16.9); Immature Granulocytes % 0.3 % (0-4); Lymphocytes # 0.7 K/mcL (0.6-4.6); Lymphocytes % 11.1 %; Mean Corpuscular HGB Conc 29.3 g/dL (31.6-35.5); Mean Corpuscular Hemoglobin 21.8 pg (28.0-33.3); Mean Corpuscular Volume 74.4 fL (83.0-100.0); Mean Platelet Volume 10.5 fL (9.4-12.4); Monocytes # 0.8 K/mcL (0.0-1.3); Monocytes % 11.9 %; Neutrophils # 4.7 K/mcL (1.6-8.9); Platelet Count 208 K/mcL (140-400); Red Blood Count 3.63 M/mcL (4.19-5.50); Red Cell Distribution Width 23.7 % (11.5-14.5); Segmented Neutrophils % 72.9 %
[2022-01-02 02:16] LABS: White Blood Count 6.5 K/mcL (4.3-11.1)
[2022-01-02 02:29] LABS: Calcium 8.5 mg/dL (8.6-10.3)
[2022-01-02 02:31] LABS: Anisocytosis 2+ (Not Present); Hypochromasia Present (Not Present); Platelet Estimate Normal (Normal); Poikilocytosis 1+ (Not Present)
[2022-01-02] MEDS ORDERED: Dextrose Gel 15 GM/37.5 ML TUBE PO PRN ×2 (07:44)
[2022-01-02] MEDS ORDERED: *HR* Dextrose 50 % in Water (Syg) 50 ML SYRINGE IVP PRN (07:44)
[2022-01-02] MEDS ORDERED: D5% in Water 1,000 ML IVC PRN (07:44)
[2022-01-02] MEDS: Aspirin Enteric Coated 81 MG Tablet PO SCH (09:43)
[2022-01-02] MEDS: Metoprolol XL (24 HR) Succ 25 MG TAB.ER.24H PO SCH ×2 (09:43→21:27)
[2022-01-02] MEDS: Apixaban 5 MG TABLET PO SCH ×2 (09:43→21:27)
[2022-01-02] MEDS: Isosorbide MONOnitrate (24 HR) 60 MG TAB.ER.24H PO SCH (09:43)
[2022-01-02] MEDS: Furosemide 40 MG/4 ML VIAL IVP SCH ×2 (09:51→21:27)
[2022-01-02] MEDS: Insulin LISPRO 300 UNITS/3 ML VIAL SUBQ SCH ×2 (11:50→18:21)
[2022-01-02] MEDS ORDERED: Nitroglycerin 0.4 MG TAB.SUBL SL PRN (13:00)
[2022-01-02] MEDS ORDERED: Insulin LISPRO 300 UNITS/3 ML VIAL SUBQ SCH (21:00)
[2022-01-02] MEDS ORDERED: Sucralfate 1 GM TABLET PO SCH (21:00)
[2022-01-02] MEDS: Ranolazine 500 MG TAB.ER.12H PO SCH (21:27)
[2022-01-02] MEDS: Acetaminophen 325 MG TABLET PO PRN (21:39)
[2022-01-03] MEDS: Acetaminophen 325 MG TABLET PO PRN ×2 (03:51→10:09)
[2022-01-03 07:23] LABS: Basophils % 0.7 %; Eosinophils # 0.2 K/mcL (0.0-0.6); Eosinophils % 4.3 %; Hematocrit 27.6 % (37.5-50.1); Hemoglobin 7.7 g/dL (12.9-16.9); Immature Granulocytes % 0.2 % (0-4); Lymphocytes # 0.6 K/mcL (0.6-4.6); Lymphocytes % 10.8 %; Mean Corpuscular HGB Conc 27.9 g/dL (31.6-35.5); Mean Corpuscular Hemoglobin 20.9 pg (28.0-33.3); Mean Platelet Volume 10.5 fL (9.4-12.4); Monocytes # 0.6 K/mcL (0.0-1.3); Monocytes % 10.6 %; Neutrophils # 4.1 K/mcL (1.6-8.9); Platelet Count 229 K/mcL (140-400); Red Blood Count 3.68 M/mcL (4.19-5.50); Red Cell Distribution Width 24.4 % (11.5-14.5); Segmented Neutrophils % 73.4 %; White Blood Count 5.6 K/mcL (4.3-11.1)
[2022-01-03 07:32] LABS: Calcium 8.8 mg/dL (8.6-10.3); Potassium 3.8 mEq/L (3.5-5.1)
[2022-01-03] MEDS: Insulin LISPRO 300 UNITS/3 ML VIAL SUBQ SCH ×2 (07:43→11:34)
[2022-01-03] MEDS: Furosemide 40 MG/4 ML VIAL IVP SCH (07:55)
[2022-01-03] MEDS: Metoprolol XL (24 HR) Succ 25 MG TAB.ER.24H PO SCH (08:43)
[2022-01-03] MEDS: Ranolazine 500 MG TAB.ER.12H PO SCH (08:43)
[2022-01-03] MEDS: Aspirin Enteric Coated 81 MG Tablet PO SCH (08:43)
[2022-01-03] MEDS: Isosorbide MONOnitrate (24 HR) 60 MG TAB.ER.24H PO SCH (08:43)
[2022-01-03] MEDS: Apixaban 5 MG TABLET PO SCH (08:43)
[2022-01-03] MEDS ORDERED: lisinopriL 5 MG TABLET PO SCH (09:00)
[2022-01-03] MEDS ORDERED: Torsemide 20 MG TABLET PO SCH (09:00)
[2022-01-03] MEDS ORDERED: allopurinoL 100 MG TABLET PO SCH (09:00)
[2022-01-03 10:59] VITALS: BP 114/67; PULSE 73; TEMP 97.6; O2SAT 98
== END 2022-01-03 12:39 | disposition home or self-care (01) ==
LOC: EMEROOARM 11:15 → 2ANU 11:15 → SUATTDRO 17:33 → 2ANU 18:44
PROVIDERS: ADMIT Hospitalist; ATTEND Internal Medicine

== ENCOUNTER 2022-01-14 16:36 | Inpatient (IN) ==
[2022-01-14] MEDS ORDERED: Aspirin 81 MG TAB.CHEW PO ONE (20:21)
[2022-01-14] MEDS ORDERED: Nitroglycerin 0.4 MG TAB.SUBL SL PRN (20:21)
[2022-01-14] MEDS ORDERED: Vancomycin 1,250 MG/262.5 ML IV.SOLN IVPB ONE (21:00)
[2022-01-14 21:12] LABS: Hemoglobin 8.7 g/dL (12.9-16.9)
[2022-01-14 21:13] LABS: Basophils # 0.1 K/mcL (0.0-0.2); Basophils % 0.6 %; Eosinophils % 0.3 %; Hematocrit 31.4 % (37.5-50.1); Immature Granulocytes % 0.3 % (0-4); Lymphocytes # 0.3 K/mcL (0.6-4.6); Lymphocytes % 3.7 %; Mean Corpuscular HGB Conc 27.7 g/dL (31.6-35.5); Mean Corpuscular Hemoglobin 20.9 pg (28.0-33.3); Mean Corpuscular Volume 75.5 fL (83.0-100.0); Mean Platelet Volume 9.9 fL (9.4-12.4); Monocytes # 0.5 K/mcL (0.0-1.3); Monocytes % 6.1 %; Platelet Count 211 K/mcL (140-400); Red Blood Count 4.16 M/mcL (4.19-5.50); Red Cell Distribution Width 25.6 % (11.5-14.5); White Blood Count 7.8 K/mcL (4.3-11.1)
[2022-01-14 21:15] LABS: Neutrophils # 6.9 K/mcL (1.6-8.9)
[2022-01-14 21:20] LABS: INR 2.2; Prothrombin Time 24.2 Seconds (9.4-12.1)
[2022-01-14 21:23] LABS: Activated Partial Thrombo Time 26.6 Seconds (26.0-36.0)
[2022-01-14 21:31] LABS: Albumin 3.6 g/dL (3.5-5.7); Albumin/Globulin Ratio 1.1 (1.1-2.2); Bilirubin,Direct 0.2 mg/dL (0.0-0.2); Bilirubin,Indirect 0.4 mg/dL (0.0-1.0); Bilirubin,Total 0.6 mg/dL (0.3-1.0); Calcium 9.1 mg/dL (8.6-10.3); Globulin 3.2 g/dL (2.4-3.5); Potassium 3.4 mEq/L (3.5-5.1); Total Protein 6.8 g/dL (6.4-8.9); Troponin I 0.04 ng/mL (< 0.04)
[2022-01-14 21:55] LABS: Anisocytosis 2+ (Not Present); Hypochromasia Present (Not Present); Polychromasia 1+ (Not Present)
[2022-01-14 21:56] LABS: Platelet Estimate Normal (Normal)
[2022-01-15] MEDS ORDERED: Furosemide 40 MG/4 ML VIAL IVP ONE (01:03)
[2022-01-15] MEDS ORDERED: Acetaminophen 325 MG TABLET PO ONE (06:35)
[2022-01-15] MEDS ORDERED: Naloxone 0.4 MG/ML INJ IVP PRN (08:21)
[2022-01-15] MEDS ORDERED: Ondansetron 4 MG/2 ML VIAL IVP PRN (13:30)
[2022-01-15] MEDS ORDERED: Nitroglycerin 0.4 MG TAB.SUBL SL PRN (14:13)
[2022-01-15] MEDS: lisinopriL 5 MG TABLET PO SCH (18:05)
[2022-01-15] MEDS: Metoprolol XL (24 HR) Succ 25 MG TAB.ER.24H PO SCH ×2 (18:05→21:02)
[2022-01-15] MEDS: Sucralfate 1 GM TABLET PO SCH (21:02)
[2022-01-15] MEDS: Apixaban 5 MG TABLET PO SCH (21:02)
[2022-01-15] MEDS: Ranolazine 500 MG TAB.ER.12H PO SCH (21:02)
[2022-01-15] MEDS ORDERED: Vancomycin 1,250 MG/262.5 ML IV.SOLN IVPB SCH (23:00)
[2022-01-16] MEDS: Acetaminophen 325 MG TABLET PO PRN (01:34)
[2022-01-16] MEDS: Torsemide 20 MG TABLET PO SCH (08:25)
[2022-01-16] MEDS: lisinopriL 5 MG TABLET PO SCH (08:25)
[2022-01-16] MEDS: Apixaban 5 MG TABLET PO SCH ×2 (08:25→21:17)
[2022-01-16] MEDS: Ranolazine 500 MG TAB.ER.12H PO SCH ×2 (08:25→21:17)
[2022-01-16] MEDS: allopurinoL 100 MG TABLET PO SCH (08:26)
[2022-01-16] MEDS: Aspirin Enteric Coated 81 MG Tablet PO SCH (08:26)
[2022-01-16] MEDS: Spironolactone 12.5 MG TABLET PO SCH (08:26)
[2022-01-16] MEDS: Isosorbide MONOnitrate (24 HR) 60 MG TAB.ER.24H PO SCH (08:26)
[2022-01-16] MEDS: Metoprolol XL (24 HR) Succ 25 MG TAB.ER.24H PO SCH ×2 (08:26→21:28)
[2022-01-16 09:12] LABS: Calcium 8.6 mg/dL (8.6-10.3); Potassium 3.3 mEq/L (3.5-5.1)
[2022-01-16 09:15] LABS: Basophils % 0.4 %; Immature Granulocytes % 0.4 % (0-4); Lymphocytes % 6.9 %
[2022-01-16 09:17] LABS: Eosinophils % 0.3 %; Hematocrit 27.9 % (37.5-50.1); Lymphocytes # 0.5 K/mcL (0.6-4.6); Mean Corpuscular HGB Conc 28.7 g/dL (31.6-35.5); Mean Corpuscular Hemoglobin 21.3 pg (28.0-33.3); Mean Corpuscular Volume 74.2 fL (83.0-100.0); Mean Platelet Volume 10.9 fL (9.4-12.4); Monocytes # 0.9 K/mcL (0.0-1.3); Neutrophils # 5.8 K/mcL (1.6-8.9); Platelet Count 194 K/mcL (140-400); Red Blood Count 3.76 M/mcL (4.19-5.50); White Blood Count 7.3 K/mcL (4.3-11.1)
[2022-01-16] MEDS ORDERED: Potassium Chloride Elixir 20 MEQ/15 ML UDC PO ONE (09:54)
[2022-01-16 11:16] LABS: Anisocytosis 2+ (Not Present); Hypochromasia Present (Not Present); Platelet Estimate Normal (Normal)
[2022-01-16] MEDS ORDERED: Acetaminophen IV 1,000 MG/100 ML BAG IVPB ONE (13:27)
[2022-01-16] MEDS: Sucralfate 1 GM TABLET PO SCH (21:17)
[2022-01-17 03:45] LABS: Mean Platelet Volume 9.7 fL (9.4-12.4)
[2022-01-17 03:47] LABS: Basophils % 0.7 %; Eosinophils # 0.2 K/mcL (0.0-0.6); Eosinophils % 3.3 %; Hematocrit 28.3 % (37.5-50.1); Immature Granulocytes % 0.4 % (0-4); Lymphocytes # 0.7 K/mcL (0.6-4.6); Lymphocytes % 11.4 %; Mean Corpuscular HGB Conc 28.3 g/dL (31.6-35.5); Mean Corpuscular Hemoglobin 21.3 pg (28.0-33.3); Mean Corpuscular Volume 75.5 fL (83.0-100.0); Monocytes # 0.9 K/mcL (0.0-1.3); Monocytes % 14.9 %; Platelet Count 167 K/mcL (140-400); Red Blood Count 3.75 M/mcL (4.19-5.50); Segmented Neutrophils % 69.3 %; White Blood Count 5.7 K/mcL (4.3-11.1)
[2022-01-17 04:00] LABS: Calcium 8.7 mg/dL (8.6-10.3); Magnesium 1.9 mg/dL (1.6-2.6); Potassium 3.8 mEq/L (3.5-5.1)
[2022-01-17 04:15] LABS: Anisocytosis 2+ (Not Present); Hypochromasia Present (Not Present); Platelet Estimate Normal (Normal); Poikilocytosis 1+ (Not Present)
[2022-01-17] MEDS: Ranolazine 500 MG TAB.ER.12H PO SCH ×2 (08:42→22:04)
[2022-01-17] MEDS: Spironolactone 12.5 MG TABLET PO SCH (08:43)
[2022-01-17] MEDS: Torsemide 20 MG TABLET PO SCH (08:43)
[2022-01-17] MEDS: lisinopriL 5 MG TABLET PO SCH (08:43)
[2022-01-17] MEDS: Metoprolol XL (24 HR) Succ 25 MG TAB.ER.24H PO SCH ×2 (08:43→22:04)
[2022-01-17] MEDS: Isosorbide MONOnitrate (24 HR) 60 MG TAB.ER.24H PO SCH (08:43)
[2022-01-17] MEDS: Apixaban 5 MG TABLET PO SCH ×2 (08:43→22:04)
[2022-01-17] MEDS: allopurinoL 100 MG TABLET PO SCH (08:44)
[2022-01-17] MEDS: Aspirin Enteric Coated 81 MG Tablet PO SCH (08:44)
[2022-01-17] MEDS: Acetaminophen 325 MG TABLET PO PRN ×2 (18:49→22:04)
[2022-01-17] MEDS: Sucralfate 1 GM TABLET PO SCH (22:04)
[2022-01-18 02:00] LABS: Lymphocytes % 17.1 %; Red Cell Distribution Width 24.5 % (11.5-14.5)
[2022-01-18 02:02] LABS: Basophils % 0.6 %; Eosinophils # 0.3 K/mcL (0.0-0.6); Eosinophils % 4.4 %; Hematocrit 27.3 % (37.5-50.1); Immature Granulocytes % 0.3 % (0-4); Lymphocytes # 1.1 K/mcL (0.6-4.6); Mean Corpuscular HGB Conc 29.3 g/dL (31.6-35.5); Mean Corpuscular Hemoglobin 21.4 pg (28.0-33.3); Mean Corpuscular Volume 73.2 fL (83.0-100.0); Mean Platelet Volume 10.4 fL (9.4-12.4); Monocytes # 0.9 K/mcL (0.0-1.3); Monocytes % 14.8 %; Platelet Count 175 K/mcL (140-400); Red Blood Count 3.73 M/mcL (4.19-5.50); Segmented Neutrophils % 62.8 %; White Blood Count 6.3 K/mcL (4.3-11.1)
[2022-01-18 02:17] LABS: Calcium 8.6 mg/dL (8.6-10.3); Magnesium 1.6 mg/dL (1.6-2.6); Potassium 3.6 mEq/L (3.5-5.1)
[2022-01-18 04:14] LABS: Estimated Average Glucose 114 mg/dl; Hemoglobin A1C 5.6 %
[2022-01-18 08:22] VITALS: O2SAT 100
[2022-01-18] MEDS ORDERED: Magnesium Oxide 400 MG TABLET PO SCH (09:00)
[2022-01-18] MEDS: Isosorbide MONOnitrate (24 HR) 60 MG TAB.ER.24H PO SCH (09:59)
[2022-01-18] MEDS: Spironolactone 12.5 MG TABLET PO SCH (09:59)
[2022-01-18] MEDS: lisinopriL 5 MG TABLET PO SCH (10:00)
[2022-01-18] MEDS: Apixaban 5 MG TABLET PO SCH (10:00)
[2022-01-18] MEDS: allopurinoL 100 MG TABLET PO SCH (10:00)
[2022-01-18] MEDS: Aspirin Enteric Coated 81 MG Tablet PO SCH (10:00)
[2022-01-18] MEDS: Torsemide 20 MG TABLET PO SCH (10:00)
[2022-01-18] MEDS: Metoprolol XL (24 HR) Succ 25 MG TAB.ER.24H PO SCH (10:00)
[2022-01-18] MEDS: Ranolazine 500 MG TAB.ER.12H PO SCH (10:08)
[2022-01-18] MEDS ORDERED: Azithromycin 250 MG TABLET PO ONE (11:56)
[2022-01-18] MEDS ORDERED: cefTRIAXone 1,000 MG in 0.9 % Sodium Chloride Mini Bag 100 ML IVPB SCH (12:00)
[2022-01-18] MEDS ORDERED: Potassium Chloride Elixir 20 MEQ/15 ML UDC PO ONE (13:18)
[2022-01-18 13:29] VITALS: BP 109/64; PULSE 70; TEMP 97.9
[2022-01-18 16:25] LABS: INR 3.1; Prothrombin Time 34.2 Seconds (9.4-12.1)
[2022-01-18] MEDS: Acetaminophen 325 MG TABLET PO PRN (16:26)
[2022-01-18] MEDS ORDERED: *HR* Heparin 5,000 UNIT/ML VIAL IVP PRN ×2 (17:00)
[2022-01-18] MEDS ORDERED: Heparin 25,000UNIT/250ML 1/2NS 25,000 UNIT/250 ML IV.SOLN IVC SCH ×2 (17:00)
[2022-01-19] MEDS ORDERED: Azithromycin 250 MG TABLET PO SCH (12:00)
== END 2022-01-18 19:44 | disposition short-term general hospital (02) | DRG 314 ==
LOC: EMEROOARM 16:36 → 3ANU 16:36 → SUATTDRO 01-15 11:24 → 3ANU 01-15 13:17
PROVIDERS: ADMIT Internal Medicine; ATTEND Internal Medicine